=== PATIENT | male | born 1960 | race Caucasian/White ===

== ENCOUNTER → 2019-06-14 | Outpatient (CLI) | payer OTHER ==
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
== END ==
LOC: RAD 16:19
PROVIDERS: ATTEND Nurse Practitioner Primary Care
DX: S83.91XA Sprain of unspecified site of right knee, initial encounter (principal); X58.XXXA Exposure to other specified factors, initial encounter; Q76.1 Klippel-Feil syndrome
CPT/HCPCS: 72040

== ENCOUNTER 2019-08-28 17:54 | Emergency (ER) | payer OTHER ==
[2019-08-28] MEDS ORDERED: OXYCODONE HCL IR 5 MG TABLET PO ONE (19:10)
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
[2019-08-28] MEDS ORDERED: MECLIZINE HCL 25 MG TABLET PO ONE (22:54)
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
[2019-08-28] MEDS ORDERED: PROCHLORPERAZINE EDISYLATE INJ 10 MG/2 ML VIAL IM ONE (23:50)
[2019-08-29 01:42] VITALS: BP 135/69
--- NOTE | 2019-08-29 07:21 | EKG REPORT ---
SEVERITY:- BORDERLINE ECG - SINUS RHYTHM BORDERLINE T WAVE ABNORMALITIES : Confirmed by: Moe Barrientos MD 29-Aug-2019 07:20:10
== END 2019-08-29 02:50 | disposition left against medical advice (07) ==
LOC: ER 17:54
DX: R51 Headache (principal); M54.5 Low back pain; M54.2 Cervicalgia; R42 Dizziness and giddiness; V89.2XXA Person injured in unspecified motor-vehicle accident, traffic, initial encounter; Y92.414 Local residential or business street as the place of occurrence of the external cause; Z88.0 Allergy status to penicillin; Z88.2 Allergy status to sulfonamides; Z91.013 Allergy to seafood
CPT/HCPCS: 93005; 99284; 96372; 72110; 72070; 70450; 72125; 93010; J0780

== ENCOUNTER 2020-01-05 12:05 | Inpatient (IN) | payer OTHER, MEDICARE ==
[2020-01-05] MEDS ORDERED: ONDANSETRON HCL INJ/PF 4 MG/2 ML SDV IV ONE (12:24)
[2020-01-05] MEDS ORDERED: NORMAL SALINE 1000 ML 1,000 ML IV ONE ×2 (12:24→18:15)
--- NOTE | 2020-01-05 12:26 | ER Document Report ---
ED Medical Screen (RME) - General Chief Complaint: Dizziness Stated Complaint: WEAKNESS/ABDOMINAL PAIN Time Seen by Provider: 01/05/20 12:19 Primary Care Provider: KWAN ELLSWORTH FNP-C [Primary Care Provider] - Follow up as needed Notes: Patient is a 59-year-old male with a history of diabetes who presents emergency department with a chief complaint of nausea, vomiting, and diarrhea. Patient was seen by his primary care provider and was referred here to the emergency department for possible dehydration. Patient states that his blood sugars have been in the low 200s. Denies any abdominal pain. Patient is also inquiring about being tested for COVID-19. Exam: Soft, nontender abdomen. I have greeted and performed a rapid initial assessment of this patient. A comprehensive ED assessment and evaluation of the patient, analysis of test results and completion of medical decision making process will be conducted by an additional ED providers. TRAVEL OUTSIDE OF THE [place] IN LAST 30 DAYS: No - Related Data Allergies/Adverse Reactions: iodine Allergy (Verified 08/28/19 19:00) Penicillins Allergy (Verified 08/28/19 19:00) shellfish derived Allergy (Verified 08/28/19 19:00) Sulfa (Sulfonamide Antibiotics) Allergy (Verified 08/28/19 19:00) shellfish Allergy (Uncoded 08/28/19 19:00) Past Medical History - Social History Chew tobacco use (# tins/day): No Frequency of alcohol use: None Drug Abuse: None Physical Exam - Vital signs Vitals: Temp Pulse Resp BP Pulse Ox 98.4 F 95 16 146/83 H 100 01/05/20 12:12 01/05/20 12:12 01/05/20 12:12 01/05/20 12:12 01/05/20 12:12 Course - Vital Signs Vital signs: Temp Pulse Resp BP Pulse Ox 98.4 F 95 16 146/83 H 100 01/05/20 12:12 01/05/20 12:12 01/05/20 12:12 01/05/20 12:12 01/05/20 12:12 Doctor's Discharge - Discharge Referrals: KWAN ELLSWORTH FNP-C [Primary Care Provider] - Follow up as needed
[2020-01-05 13:12] LABS: ABSOLUTE BASOPHILS # (AUTO) 0.1 10^3/uL (0.0-0.2); ABSOLUTE EOSINOPHILS # (AUTO) 0.3 10^3/uL (0.0-0.6); ABSOLUTE LYMPHOCYTES (AUTO) 1.5 10^3/uL (0.5-4.7); ABSOLUTE MONOCYTES (AUTO) 0.5 10^3/uL (0.1-1.4); ABSOLUTE NEUT (AUTO) 9.3 10^3/uL (1.7-8.2); EOSINOPHILS % (AUTO) 2.6 % (0-6); HEMATOCRIT 41.1 % (37.9-51.0); HEMOGLOBIN 13.9 g/dL (13.5-17.0); LYMPHOCYTES % (AUTO) 12.6 % (13-45); MEAN CORPUSCULAR HEMOGLOBIN 29.8 pg (27.0-33.4); MEAN CORPUSCULAR HGB CONC 33.8 g/dL (32.0-36.0); MEAN CORPUSCULAR VOLUME 88 fl (80-97); MONOCYTES % (AUTO) 3.9 % (3-13); PLATELET COUNT 392 10^3/uL (150-450); RED BLOOD COUNT 4.67 10^6/uL (4.35-5.55); RED CELL DISTRIBUTION WIDTH 14.1 % (11.5-14.0); SEGMENTED NEUTROPHILS % (AUTO) 79.9 % (42-78); TOTAL CELLS COUNTED % (AUTO) 100 %; WHITE BLOOD COUNT 11.7 10^3/uL (4.0-10.5)
--- NOTE | 2020-01-05 13:58 | ER Document Report ---
ED General - General Chief Complaint: Dizziness Stated Complaint: WEAKNESS/ABDOMINAL PAIN Time Seen by Provider: 01/05/20 12:19 Primary Care Provider: KWAN ELLSWORTH FNP-C [Primary Care Provider] - Follow up as needed Notes: 59-year-old male presents to the emergency department with a complaint of nausea vomiting and diarrhea for the past 4 days. He complains of weakness and apparently called his doctor's office and was directed to come to the emergency department for evaluation and IV fluids. He has history of diabetes mellitus and complains of intermittent episodic fever. TRAVEL OUTSIDE OF THE [place] IN LAST 30 DAYS: No - Related Data Allergies/Adverse Reactions: iodine Allergy (Verified 08/28/19 19:00) Penicillins Allergy (Verified 08/28/19 19:00) shellfish derived Allergy (Verified 08/28/19 19:00) Sulfa (Sulfonamide Antibiotics) Allergy (Verified 08/28/19 19:00) shellfish Allergy (Uncoded 08/28/19 19:00) Past Medical History - Social History Smoking Status: Unknown if Ever Smoked Chew tobacco use (# tins/day): No Frequency of alcohol use: None Drug Abuse: None Family History: Reviewed & Not Pertinent Patient has homicidal ideation: No Review of Systems - Review of Systems Notes: Constitutional: + Generalized weakness HENT: Negative for sore throat. Eyes: Negative for visual changes. Cardiovascular: Negative for chest pain. Respiratory: Negative for shortness of breath. Gastrointestinal: + Nausea, vomiting, diarrhea. Genitourinary: Negative for dysuria. Musculoskeletal: Negative for back pain. Skin: Negative for rash. Neurological: Negative for headaches, weakness or numbness. 10 point ROS negative except as marked above and in HPI. Physical Exam - Vital signs Vitals: Temp Pulse Resp BP Pulse Ox 98.4 F 95 16 146/83 H 100 01/05/20 12:12 01/05/20 12:12 01/05/20 12:12 01/05/20 12:12 01/05/20 12:12 - Notes Notes: PHYSICAL EXAMINATION: Physical Exam: General: Well-nourished well-developed 59-year-old and in no acute distress HEENT: NC/AT, pupils equal round and reactive to light, MM dry,nares clear, or opharynx clear, airway patent Neck: supple, no adenopathy, no masses. Good range of motion Lungs: clear, no wheezing, no rales no rhonchi CVS: Regular rate and rhythm no murmur gallop or rub Abdomen: Soft, active, nontender, no masses, no hepatosplenomegaly Ext: No edema, clubbing or cyanosis. Neuro: Alert and responsive, moving all 4 extremities on command, cranial nerves intact, no focal findings Skin: Intact no open lesions, no rash Course - Re-evaluation Re-evalutation: 01/05/20 18:20 Patient presents with a four-day history of nausea vomiting and diarrhea, found to have acute kidney injury with a creatinine of 3.9, potassium 6.1. IV hydration, Varner catheter placement, and a discussion with the hospitalist ser vice regarding close monitoring. admit the patient to the hospital for closer evaluation and monitoring. 01/05/20 18:24 Apparently the patient has been difficult IV stick and his care for hyperkalemia and hydration have been delayed. Dr Bajwa has seen the patient and will be admitting him to the [facility]. - Vital Signs Vital signs: Temp Pulse Resp BP Pulse Ox 98.4 F 94 18 148/83 H 99 01/05/20 12:12 01/05/20 12:24 01/05/20 12:24 01/05/20 12:24 01/05/20 12:24 - Laboratory Result Diagrams: 01/05/20 12:57 01/05/20 15:30 Laboratory results interpreted by me: 01/05/20 01/05/20 12:57 15:30 WBC 11.7 H RDW 14.1 H Lymph % (Auto) 12.6 L Absolute Neuts (auto) 9.3 H Seg Neutrophils % 79.9 H Potassium 6.1 H* BUN 48 H Creatinine 3.93 H Est GFR ( Amer) 19 L Est GFR (MDRD) Non-Af 16 L Glucose 286 H AST 12 L - EKG Interpretation by Al EKG shows normal: Sinus rhythm - Rate of 88, poor R wave progression, borderline T wave abnormalities, normal axis. Critical Care Note - Critical Care Note Total time excluding time spent on procedures (mins): 60 - Critical care time spent obtaining history from patient or surrogate, discussions with consultants, development of treatment plan with patient or surrogate, evaluation of patient's response to treatment, examination of patient, ordering and performing treatments and interventions, ordering and review of laboratory studies, re-evaluation of patient's condition, ordering and review of radiographic studies and review of old charts Discharge - Discharge Clinical Impression: Nausea vomiting and diarrhea, ZURDO (acute kidney injury), Hyperkalemia Diabetes type 2, uncontrolled Qualifiers: Glycemic state: with hyperglycemia Qualified Code(s): E11.65 - Type 2 diabetes mellitus with hyperglycemia Condition: Good Disposition: ADMITTED INPATIENT Admitting Provider: Aydee (Hospitalist) Unit Admitted: [facility] Referrals: KWAN ELLSWORTH FNP-C [Primary Care Provider] - Follow up as needed
[2020-01-05 16:01] LABS: ALBUMIN 4.2 g/dL (3.5-5.0); ALKALINE PHOSPHATASE 102 U/L (38-126); ANION GAP 9 (5-19); ASPARTATE AMINO TRANSFERASE 12 U/L (17-59); BILIRUBIN,DIRECT 0.1 mg/dL (0.0-0.4); BILIRUBIN,TOTAL 0.4 mg/dL (0.2-1.3); BLOOD UREA NITROGEN 48 mg/dL (7-20); CALCIUM 9.8 mg/dL (8.4-10.2); CARBON DIOXIDE 27 mmol/L (22-30); CHLORIDE 101 mmol/L (98-107); GLUCOSE 286 mg/dL (75-110); TOTAL PROTEIN 7.6 g/dL (6.3-8.2)
[2020-01-05 16:15] LABS: POTASSIUM 6.1 mmol/L (3.6-5.0)
[2020-01-05] MEDS ORDERED: INSULIN REG, HUMAN 100 UNIT/ML 3 ML VIAL (PYX) IV ONE (16:26)
[2020-01-05] MEDS ORDERED: DEXTROSE 50%-WATER 25 GM/50 ML DISP.SYRIN IV ONE ×2 (16:26→18:34)
[2020-01-05] MEDS ORDERED: CALCIUM GLUCONATE 1000 MG/10 ML INJ IV ONE ×2 (16:26→19:30)
[2020-01-05] MEDS ORDERED: SODIUM POLYSTYRENE SULFONATE 15 GM/60 ML PO ONE ×2 (16:26→18:32)
[2020-01-05] MEDS ORDERED: ACETAMINOPHEN 325 MG TABLET PO PRN (18:26)
[2020-01-05] MEDS ORDERED: DEXTROSE 50%-WATER 25 GM/50 ML DISP.SYRIN IV PRN ×2 (18:29)
[2020-01-05] MEDS ORDERED: GLUCAGON,HUMAN RECOMB 1 MG INJ IM PRN (18:29)
[2020-01-05] MEDS ORDERED: DEXTROSE 40% GEL 15 GM TUBE PO PRN ×2 (18:29)
[2020-01-05] MEDS ORDERED: NORMAL SALINE 1000 ML 2,000 ML IV ONE (18:30)
[2020-01-05] MEDS ORDERED: INSULIN REG, HUMAN 100 UNIT/ML 3 ML VIAL (PYX) ONE (18:31)
[2020-01-05] MEDS ORDERED: SODIUM POLYSTYRENE SULFONATE 15 GM/60 ML ONE (18:34)
--- NOTE | 2020-01-05 18:40 | PDOC H&P ---
History of Present Illness Admission Date/PCP: GOLD ELENA Patient complains of: Nausea vomiting for the last 4 days. History of Present Illness: FREDDIE LAZO JR is a 59 year old male history of type 2 diabetes mellitus on insulin, osteoarthritis on pain medications came to the emergency room with complaints of nausea vomiting for the last 4 days. Vomiting clear liquids unable to keep anything down. Denies any abdominal pain denies any diarrhea. Denies any fever denies any other symptoms except for severe dizziness. Denies any drug use. Agreed to stay in the hospital for further evaluation and wants to be DNR/DNI. Past Medical History Endocrine Medical History: Reports: Diabetes Mellitus Type 2 Musculoskeltal Medical History: Reports: Arthritis Hematology: Reports: None Infectious Medical History: Reports: None Past Surgical History Past Surgical History: Reports: Other - Multiple orthopedic surgeries Social History Smoking Status: Unknown if Ever Smoked Electronic Cigarette use?: No Frequency of Alcohol Use: None Hx Recreational Drug Use: No Hx Prescription Drug Abuse: No - Advance Directive Resuscitation Status: Do Not Resuscitate Family History Family History: Reviewed & Not Pertinent Parental Family History Reviewed: Yes - Diabetes mellitus Children Family History Reviewed: Yes Sibling(s) Family History Reviewed.: Yes Medication/Allergy Home Medications: Meclizine HCl [Antivert 25 mg Tablet] 25 mg PO TID PRN #10 tablet 08/29/19 Methocarbamol [Robaxin 750 mg Tablet] 750 mg PO TID PRN #10 tablet 08/29/19 Allergies/Adverse Reactions: iodine Allergy (Verified 08/28/19 19:00) Penicillins Allergy (Verified 08/28/19 19:00) shellfish derived Allergy (Verified 08/28/19 19:00) Sulfa (Sulfonamide Antibiotics) Allergy (Verified 08/28/19 19:00) shellfish Allergy (Uncoded 08/28/19 19:00) Review of Systems Constitutional: PRESENT: fatigue, weakness. ABSENT: fever(s), headache(s) Eyes: ABSENT: visual disturbances Ears: ABSENT: hearing changes Nose, Mouth, and Throat: ABSENT: sore throat Cardiovascular: ABSENT: edema, orthropnea, palpitations Respiratory: ABSENT: dyspnea, hemoptysis Gastrointestinal: PRESENT: nausea, vomiting. ABSENT: coffee ground emesis, diarrhea, hematemesis Musculoskeletal: ABSENT: joint swelling Integumentary: ABSENT: rash, wounds Neurological: PRESENT: dizziness Psychiatric: ABSENT: anxiety, depression, homidical ideation, suicidal ideation Physical Exam Vital Signs: Temp Pulse Resp BP Pulse Ox 98.4 F 94 18 148/83 H 99 01/05/20 12:12 01/05/20 12:24 01/05/20 12:24 01/05/20 12:24 01/05/20 12:24 Intake & Output 01/04/20 01/05/20 01/06/20 06:59 06:59 06:59 Intake Total 1000 Balance 1000 Weight 71.6 kg General appearance: PRESENT: no acute distress, well-developed Head exam: PRESENT: atraumatic Eye exam: PRESENT: conjunctiva pink, PERRLA Ear exam: PRESENT: normal external ear exam Mouth exam: PRESENT: dry mucosa Respiratory exam: PRESENT: clear to auscultation yousif. ABSENT: rales, rhonchi, wheezes Cardiovascular exam: PRESENT: RRR. ABSENT: diastolic murmur, rubs, systolic murmur GI/Abdominal exam: PRESENT: normal bowel sounds, soft. ABSENT: distended, guarding, mass, organolmegaly, rebound, tenderness Rectal exam: PRESENT: deferred Extremities exam: PRESENT: full ROM. ABSENT: calf tenderness, clubbing, pedal edema Neurological exam: PRESENT: alert, awake, oriented to person, oriented to place, oriented to time, oriented to situation, CN II-XII grossly intact. ABSENT: motor sensory deficit Psychiatric exam: PRESENT: appropriate affect, normal mood. ABSENT: homicidal ideation, suicidal ideation Results Laboratory Results: 01/05/20 12:57 01/05/20 15:30 01/05/20 01/05/20 01/05/20 12:57 12:57 15:30 WBC 11.7 H RBC 4.67 Hgb 13.9 Hct 41.1 MCV 88 MCH 29.8 MCHC 33.8 RDW 14.1 H Plt Count 392 Seg Neutrophils % 79.9 H Sodium Cancelled 137.0 Potassium Cancelled 6.1 H* Chloride Cancelled 101 Carbon Dioxide Cancelled 27 Anion Gap Cancelled 9 BUN Cancelled 48 H Creatinine Cancelled 3.93 H Est GFR ( Amer) Cancelled 19 L Est GFR (Non-Af Amer) Cancelled Glucose Cancelled 286 H Calcium Cancelled 9.8 Total Bilirubin Cancelled 0.4 AST Cancelled 12 L Alkaline Phosphatase Cancelled 102 Total Protein Cancelled 7.6 Albumin Cancelled 4.2 Lipase Cancelled 26.7 Assessment and Plan - Diagnosis (1) ZURDO (acute kidney injury) Is this a current diagnosis for this admission?: Yes Plan: 01/05/2020-patient is going to be admitted to [facility] with a diagnosis of acute kidney injury and hyperkalemia as inpatient. To start him on a normal saline at 200 cc/h and to give normal saline 2 L bolus. GI prophylaxis DVT prophylaxis initiated. To recheck the potassium levels this evening. Zofran IV every 4 as needed initiated. Renal ultrasound was requested. Varner's catheter was requested. To recheck labs tomorrow. (2) Diabetes type 2, uncontrolled Qualifiers: Glycemic state: with hyperglycemia Qualified Code(s): E11.65 - Type 2 diabetes mellitus with hyperglycemia Is this a current diagnosis for this admission?: No Plan: 01/05/2020-patient has history of type 2 diabetes mellitus on insulin at home. To start him on insulin sliding scale before meals and at bedtime and to check for hemoglobin A1c. Started on diabetic diet today. Diet exercise weight loss lifestyle modifications discussed with the patient. (3) Nausea & vomiting Is this a current diagnosis for this admission?: Yes Plan: 01/05/2020 patient came with complaints of nausea and vomiting started on Zofran 4 mg IV every 6 as needed. KUB was requested. (4) Hyperkalemia Is this a current diagnosis for this admission?: Yes Plan: 01/05/2020-serum potassium 6.1 to give calcium gluconate and to give Kayexalate 30 g p.o. 1 dose, start on IV fluids boluses and maintenance fluids. To recheck the potassium level tonight.
[2020-01-05] MEDS ORDERED: SODIUM BICARBONATE 8.4% INJ 50 MEQ/50 ML DISP.SYRIN IV ONE (18:42)
--- NOTE | 2020-01-05 18:58 | RADIOLOGY REPORT (SQ) ---
EXAM DESCRIPTION: KUB/ABDOMEN (SINGLE VIEW) IMAGES COMPLETED DATE/TIME: 01/05/2020 6:45 pm REASON FOR STUDY: nausea/vomitings COMPARISON: None. NUMBER OF VIEWS: One view. TECHNIQUE: Supine radiographic image of the abdomen acquired. LIMITATIONS: None. FINDINGS: BOWEL GAS PATTERN: Normal bowel gas pattern. No dilated loops. CALCIFICATIONS: No suspicious calcifications. A hyperdensity projecting over the right hemiabdomen l ikely represents ingested material. SOFT TISSUES: No gross mass or suggestion of organomegaly. HARDWARE: None in the abdomen. BONES: No acute fracture. No worrisome bone lesions. OTHER: No other significant finding. IMPRESSION: Nonspecific, nonobstructed bowel gas pattern. TECHNICAL DOCUMENTATION: JOB ID: [id number] 2010 [employer]- All Rights Reserved Reading location - IP/workstation name: [email or web address]
--- NOTE | 2020-01-05 18:59 | RADIOLOGY REPORT (SQ) ---
EXAM DESCRIPTION: CHEST 2 VIEWS IMAGES COMPLETED DATE/TIME: 01/05/2020 6:45 pm REASON FOR STUDY: dyspnea COMPARISON: None. EXAM PARAMETERS: NUMBER OF VIEWS: two views TECHNIQUE: Digital Frontal and Lateral radiographic views of the chest acquired. RADIATION DOSE: NA LIMITATIONS: none FINDINGS: LUNGS AND PLEURA: No opacities, masses or pneumothorax. No pleural effusion. MEDIASTINUM AND HILAR STRUCTURES: No masses or contour abnormalities. HEART AND VASCULAR STRUCTURES: Heart normal size. No evidence for failure. BONES: No acute findings. HARDWARE: None in the chest. OTHER: No other significant finding. IMPRESSION: No evidence of acute cardiopulmonary abnormality. TECHNICAL DOCUMENTATION: JOB ID: [id number] 2010 [employer]- All Rights Reserved Reading location - IP/workstation name: [email or web address]
[2020-01-05] MEDS ORDERED: IPRATROPIUM/ALBUTEROL 0.5-2.5 MG/3 ML AMPUL NEB ONE (19:30)
--- NOTE | 2020-01-05 20:19 | EKG REPORT ---
SEVERITY:- ABNORMAL ECG - SINUS RHYTHM CONSIDER ANTEROSEPTAL INFARCT BORDERLINE T WAVE ABNORMALITIES : Confirmed by: Moe Barrientos MD 05-Jan-2020 20:19:12
[2020-01-05] MEDS ORDERED: SODIUM BICARBONATE 8.4% INJ 50 MEQ/50 ML DISP.SYRIN ONE (20:55)
[2020-01-05] MEDS: HYDRALAZINE HCL INJ/PF 20 MG/1 ML SDV IV PRN (21:05)
[2020-01-05] MEDS: MORPHINE SULFATE 10 MG/ML INJ IV PRN (21:06)
[2020-01-05] MEDS: ONDANSETRON HCL INJ/PF 4 MG/2 ML SDV IV PRN (21:08)
--- NOTE | 2020-01-05 22:23 | RADIOLOGY REPORT (SQ) ---
CLINICAL INDICATION: renal failure. . TECHNIQUE: Real time multiplanar ultrasonographic ascencio scale imaging was obtained of the kidneys. 29 images obtained. COMPARISON: None. CORRELATION: None. FINDINGS: The right kidney measures 11.0 x 6.1 x 5.9 centimeters. No evidence of hydronephrosis, nephrolithiasis or solid mass lesion. The renal parenchyma is of normal contour and echogenicity. The left kidney measures 9.8 x 4.7 x 5.7 centimeters. No evidence of hydronephrosis, nephrolithiasis or solid mass lesion. The renal parenchyma is of normal contour and echogenicity. Urinary bladder volume 664 mL. Ureteral jets are not seen IMPRESSION: Unremarkable renal sonogram. No evidence of hydronephrosis to suggest obstruction as the cause of the patient's renal dysfunction.
[2020-01-05] MEDS: INSULIN REG, HUMAN 100 UNIT/ML 3 ML VIAL (PYX) SUBCUT SCH (23:51)
[2020-01-06] MEDS: NORMAL SALINE 1000 ML 1,000 ML IV PRN ×5 (01:59→18:16)
[2020-01-06] MEDS: MORPHINE SULFATE 10 MG/ML INJ IV PRN ×2 (02:41→06:47)
[2020-01-06] MEDS: PANTOPRAZOLE SODIUM 20 MG TABLET.DR PO SCH (05:42)
[2020-01-06] MEDS: INSULIN REG, HUMAN 100 UNIT/ML 3 ML VIAL (PYX) SUBCUT SCH ×2 (07:46→12:01)
[2020-01-06] MEDS: HYDRALAZINE HCL INJ/PF 20 MG/1 ML SDV IV PRN (07:47)
[2020-01-06 10:01] LABS: HEMATOCRIT 37.1 % (37.9-51.0); HEMOGLOBIN 12.2 g/dL (13.5-17.0); MEAN CORPUSCULAR HEMOGLOBIN 29.1 pg (27.0-33.4); MEAN CORPUSCULAR HGB CONC 32.9 g/dL (32.0-36.0); MEAN CORPUSCULAR VOLUME 88 fl (80-97); PLATELET COUNT 348 10^3/uL (150-450); RED CELL DISTRIBUTION WIDTH 14.3 % (11.5-14.0)
[2020-01-06 10:05] LABS: ALBUMIN 3.6 g/dL (3.5-5.0); ALKALINE PHOSPHATASE 83 U/L (38-126); ANION GAP 10 (5-19); ASPARTATE AMINO TRANSFERASE 11 U/L (17-59); BILIRUBIN,DIRECT 0.1 mg/dL (0.0-0.4); BILIRUBIN,TOTAL 0.3 mg/dL (0.2-1.3); BLOOD UREA NITROGEN 40 mg/dL (7-20); CALCIUM 8.8 mg/dL (8.4-10.2); CARBON DIOXIDE 24 mmol/L (22-30); CHLORIDE 107 mmol/L (98-107); CHOLESTEROL 221.27 mg/dL (0-200); GLUCOSE 237 mg/dL (75-110); POTASSIUM 4.1 mmol/L (3.6-5.0); TOTAL PROTEIN 6.4 g/dL (6.3-8.2)
[2020-01-06 10:06] LABS: TRIGLYCERIDES 198 mg/dL (<150)
[2020-01-06 10:15] LABS: DIRECT LDL 149 mg/dL (<100)
[2020-01-06 10:16] LABS: NT PRO BNP 2920 pg/mL (<125); TROPONIN I < 0.012 ng/mL
[2020-01-06 10:17] LABS: VLDL CHOLESTEROL 39.6 mg/dL (10-31)
[2020-01-06] MEDS: ENOXAPARIN SODIUM INJ 30 MG/0.3 ML DISP.SYRIN SUBCUT SCH (10:56)
[2020-01-06] MEDS: OXYCODONE HCL IR 5 MG TABLET PO PRN ×2 (12:01→18:14)
[2020-01-06] MEDS: GABAPENTIN 400 MG CAPSULE PO SCH ×2 (13:05→22:03)
[2020-01-06] MEDS ORDERED: DEXTROSE 50%-WATER 25 GM/50 ML DISP.SYRIN IV PRN ×2 (14:32)
[2020-01-06] MEDS ORDERED: GLUCAGON,HUMAN RECOMB 1 MG INJ IM PRN (14:32)
[2020-01-06] MEDS ORDERED: DEXTROSE 40% GEL 15 GM TUBE PO PRN ×2 (14:32)
--- NOTE | 2020-01-06 14:42 | PDOC PROGRESS REPORT ---
Subjective Progress Note for:: 01/06/20 Subjective:: FREDDIE LAZO JR is a 59 year old male history of type 2 diabetes mellitus on insulin, osteoarthritis on pain medications came to the emergency room with complaints of nausea vomiting for the last 4 days. Vomiting clear liquids unable to keep anything down. Denies any abdominal pain denies any diarrhea. Denies any fever denies any other symptoms except for severe dizziness. Denies any drug use. Agreed to stay in the hospital for further evaluation and wants t o be DNR/DNI. 01/06/2020. No acute events overnight, patient complaining of chronic low back and bilateral knee pain and requiring his narcotics, refusing to have a Varner catheter placed, vomiting has resolved, denies any fever, chills, nausea, vomiting, diarrhea, constipation or any urinary symptoms. Reason For Visit: ZURDO Physical Exam Vital Signs: Temp Pulse Resp BP Pulse Ox 99.0 F 98 17 176/90 H 100 01/06/20 07:20 01/06/20 14:00 01/06/20 07:20 01/06/20 07:20 01/06/20 07:20 Intake & Output 01/05/20 01/06/20 01/07/20 06:59 06:59 06:59 Intake Total 2960 3740 Output Total 900 Balance 2960 2840 Weight 85.6 kg 85.6 kg General appearance: PRESENT: obese Head exam: PRESENT: atraumatic, normocephalic Respiratory exam: PRESENT: clear to auscultation yousif. ABSENT: rales, rhonchi, wheezes Cardiovascular exam: PRESENT: RRR. ABSENT: diastolic murmur, rubs, systolic murmur Pulses: PRESENT: normal dorsalis pedis pul GI/Abdominal exam: PRESENT: normal bowel sounds, soft. ABSENT: distended, guarding, mass, organolmegaly, rebound, tenderness Neurological exam: PRESENT: alert, awake, oriented to person, oriented to place, oriented to time, oriented to situation, CN II-XII grossly intact. ABSENT: motor sensory deficit Results Laboratory Results: 01/06/20 09:06 01/06/20 09:06 01/05/20 01/05/20 01/06/20 15:30 21:30 08:00 WBC RBC Hgb Hct MCV MCH MCHC RDW Plt Count Sodium 137.0 Potassium 6.1 H* 4.5 D Chloride 101 Carbon Dioxide 27 Anion Gap 9 BUN 48 H Creatinine 3.93 H Est GFR ( Amer) 19 L Est GFR (Non-Af Amer) Glucose 286 H Calcium 9.8 Magnesium Total Bilirubin 0.4 AST 12 L Alkaline Phosphatase 102 Total Protein 7.6 Albumin 4.2 Triglycerides Cholesterol LDL Cholesterol Direct VLDL Cholesterol HDL Cholesterol Lipase 26.7 TSH 01/06/20 01/06/20 01/06/20 08:00 08:00 09:06 WBC RBC Hgb Hct MCV MCH MCHC RDW Plt Count Sodium Cancelled Potassium Cancelled Chloride Cancelled Carbon Dioxide Cancelled Anion Gap Cancelled BUN Cancelled Creatinine Cancelled Est GFR ( Amer) Cancelled Est GFR (Non-Af Amer) Cancelled Glucose Cancelled Calcium Cancelled Magnesium Cancelled Total Bilirubin Cancelled AST Cancelled Alkaline Phosphatase Cancelled Total Protein Cancelled Albumin Cancelled Triglycerides Cancelled Cholesterol Cancelled LDL Cholesterol Direct Cancelled VLDL Cholesterol Cancelled HDL Cholesterol Cancelled Lipase TSH Cancelled 1.19 01/06/20 01/06/20 09:06 09:06 WBC 13.0 H RBC 4.20 L Hgb 12.2 L Hct 37.1 L MCV 88 MCH 29.1 MCHC 32.9 RDW 14.3 H Plt Count 348 Sodium 140.5 Potassium 4.1 Chloride 107 Carbon Dioxide 24 Anion Gap 10 BUN 40 H Creatinine 3.32 H Est GFR ( Amer) 23 L Est GFR (Non-Af Amer) Glucose 237 H Calcium 8.8 Magnesium 1.7 Total Bilirubin 0.3 AST 11 L Alkaline Phosphatase 83 Total Protein 6.4 Albumin 3.6 Triglycerides 198 H Cholesterol 221.27 H LDL Cholesterol Direct 149 H VLDL Cholesterol 39.6 H HDL Cholesterol 38 L Lipase TSH 01/05/20 01/05/20 01/06/20 19:28 19:28 01:22 Creatine Kinase 39 L Troponin I < 0.012 < 0.012 NT-Pro-B Natriuret Pep 01/06/20 01/06/20 08:00 09:06 Creatine Kinase Troponin I Cancelled < 0.012 NT-Pro-B Natriuret Pep Cancelled 2920 H Impressions: Chest X-Ray 01/05/20 00:00 IMPRESSION: No evidence of acute cardiopulmonary abnormality. KUB X-Ray 01/05/20 00:00 IMPRESSION: Nonspecific, nonobstructed bowel gas pattern. Renal Ultrasound 01/05/20 00:00 IMPRESSION: Unremarkable renal sonogram. No evidence of hydronephrosis to suggest obstruction as the cause of the patient's renal dysfunction. Assessment and Plan - Diagnosis (1) Hypertensive emergency Is this a current diagnosis for this admission?: Yes Plan: Presented with ZURDO, elevated proBNP, SBP in 200s. History of uncontrolled and untreated hypertension. We will start on Coreg twice daily and adjust meds as needed. Not a candidate for DUSTY, ARB or diuretics at this point due to ZURDO. Will reevaluate once kidney function improves. Continue beta-cecilia schedule. PRN hydralazine. Adjust meds as needed. (2) ZURDO (acute kidney injury) Is this a current diagnosis for this admission?: Yes Plan: Multifactorial. Likely due to hypertensive emergency coupled with uncontrolled diabetes and chronic NSAID use for osteoarthritis. Renal ultrasound negative for any hydronephrosis or nephrolithiasis. Denies any history of BPH. Cautious volume restriction guided by volume status. Monitor volume status and electrolytes replace as needed. Daily electrolytes. If no improvement will consult nephrology. We will obtain urine sodium, urine protein, urine creatinine. (3) Acute CHF Qualifiers: Heart failure type: unspecified Qualified Code(s): I50.9 - Heart failure, unspecified Is this a current diagnosis for this admission?: Yes Plan: Denies any history of CAD. Denies any anginal symptoms. proBNP 2920. No echo available. Cardiac diet, strict in and out, beta-blockers, not a candidate for DUSTY/ARB or diuretics due to worsening renal function. Will start on DUSTY/ARB or diuretics once kidney function stabilizes. Will obtain 2D echo. (4) Osteoarthritis Is this a current diagnosis for this admission?: Yes Plan: History of chronic multiple joint osteoarthritis. Opioid dependent. Resume opiates DC NSAIDs. Monitor for fall respiratory depression and seizure. (5) Diabetes type 2, uncontrolled Qualifiers: Glycemic state: with hyperglycemia Qualified Code(s): E11.65 - Type 2 diabetes mellitus with hyperglycemia Is this a current diagnosis for this admission?: No Plan: Uncontrolled. Hemoglobin A1c 13%. Diabetic diet, basal, prandial and correctional insulin. Hypoglycemia protocol. Adjust insulin dosage as needed. Accu-Cheks. Diabetic education. (6) Hyperkalemia Is this a current diagnosis for this admission?: Yes Plan: Resolved. (7) Nausea & vomiting Is this a current diagnosis for this admission?: Yes Plan: Resolved. (8) Hyperlipidemia Is this a current diagnosis for this admission?: Yes Plan: ASCVD score of 40%. PSA WNL. Diet and lifestyle modification recommended. We will start on high intensity statin. Monitor LFTs. Outpatient PCP follow-up.
[2020-01-06] MEDS ORDERED: CARVEDILOL 12.5 MG TABLET PO SCH (15:00)
[2020-01-06] MEDS ORDERED: CEFTRIAXONE 1 GM/D5W RTU 1 GM/50 ML RTUPB IV SCH (16:00)
[2020-01-06] MEDS: LEVOFLOXACIN 750 MG TABLET PO SCH (16:40)
[2020-01-06] MEDS: INSULIN LISPRO 100 UNIT/ML 3 ML VIAL SUBCUT SCH ×2 (16:41→21:58)
[2020-01-06] MEDS: INSULIN GLARGINE,HUM.REC.ANLOG 1,000 UNIT/10 ML VIAL SUBCUT SCH (16:41)
[2020-01-06 17:35] LABS: AMORPHOUS SEDIMENT,URINE TRACE /HPF; APPEARANCE,URINE CLEAR; BILIRUBIN,URINE NEGATIVE (NEGATIVE); COLOR,URINE YELLOW; GLUCOSE, URINE >=500 mg/dL (NEGATIVE); KETONES,URINE NEGATIVE (NEGATIVE); LEUKOCYTE ESTERASE,URINE SMALL (NEGATIVE); NITRITE,URINE NEGATIVE (NEGATIVE); PROTEIN,URINE 30 mg/dL (NEGATIVE); UROBILINOGEN,URINE NEGATIVE mg/dL (<2.0)
[2020-01-06 17:54] LABS: URINE CREATININE 51.8 mg/dL (22-328)
[2020-01-06 18:40] LABS: URINE AMPHETAMINES SCREEN NEGATIVE; URINE BARBITURATES SCREEN NEGATIVE; URINE BENZODIAZEPINES SCREEN NEGATIVE; URINE COCAINE SCREEN NEGATIVE; URINE MARIJUANA (THC) SCREEN NEGATIVE; URINE METHADONE SCREEN NEGATIVE; URINE PHENCYCLIDINE SCREEN NEGATIVE
[2020-01-06] MEDS: ATORVASTATIN CALCIUM 40 MG TABLET PO SCH (22:03)
[2020-01-07] MEDS: OXYCODONE HCL IR 5 MG TABLET PO PRN ×5 (00:20→23:54)
[2020-01-07] MEDS: HYDRALAZINE HCL INJ/PF 20 MG/1 ML SDV IV PRN (03:41)
[2020-01-07] MEDS: NORMAL SALINE 1000 ML 1,000 ML IV PRN ×3 (04:23→23:55)
[2020-01-07] MEDS: GABAPENTIN 400 MG CAPSULE PO SCH ×3 (05:33→21:58)
[2020-01-07] MEDS: PANTOPRAZOLE SODIUM 20 MG TABLET.DR PO SCH (05:33)
[2020-01-07 05:43] LABS: ABSOLUTE BASOPHILS # (AUTO) 0.1 10^3/uL (0.0-0.2); ABSOLUTE EOSINOPHILS # (AUTO) 0.8 10^3/uL (0.0-0.6); ABSOLUTE LYMPHOCYTES (AUTO) 2.1 10^3/uL (0.5-4.7); ABSOLUTE MONOCYTES (AUTO) 0.9 10^3/uL (0.1-1.4); ABSOLUTE NEUT (AUTO) 8.7 10^3/uL (1.7-8.2); BASOPHILS % (AUTO) 0.8 % (0-2); EOSINOPHILS % (AUTO) 6.4 % (0-6); HEMATOCRIT 34.7 % (37.9-51.0); LYMPHOCYTES % (AUTO) 16.8 % (13-45); MEAN CORPUSCULAR HEMOGLOBIN 29.5 pg (27.0-33.4); MEAN CORPUSCULAR HGB CONC 33.2 g/dL (32.0-36.0); MEAN CORPUSCULAR VOLUME 89 fl (80-97); MONOCYTES % (AUTO) 6.8 % (3-13); PLATELET COUNT 299 10^3/uL (150-450); RED BLOOD COUNT 3.91 10^6/uL (4.35-5.55); RED CELL DISTRIBUTION WIDTH 14.1 % (11.5-14.0); SEGMENTED NEUTROPHILS % (AUTO) 69.2 % (42-78); TOTAL CELLS COUNTED % (AUTO) 100 %; WHITE BLOOD COUNT 12.6 10^3/uL (4.0-10.5)
[2020-01-07 05:46] LABS: HEMOGLOBIN 11.5 g/dL (13.5-17.0)
[2020-01-07 06:09] LABS: ALKALINE PHOSPHATASE 66 U/L (38-126); ANION GAP 7 (5-19); ASPARTATE AMINO TRANSFERASE 12 U/L (17-59); BILIRUBIN,DIRECT 0.1 mg/dL (0.0-0.4); BILIRUBIN,TOTAL 0.4 mg/dL (0.2-1.3); BLOOD UREA NITROGEN 40 mg/dL (7-20); CALCIUM 8.9 mg/dL (8.4-10.2); CARBON DIOXIDE 23 mmol/L (22-30); CHLORIDE 110 mmol/L (98-107); GLUCOSE 116 mg/dL (75-110); POTASSIUM 4.2 mmol/L (3.6-5.0); TOTAL PROTEIN 5.8 g/dL (6.3-8.2)
[2020-01-07] MEDS: INSULIN LISPRO 100 UNIT/ML 3 ML VIAL SUBCUT SCH ×4 (10:23→22:45)
[2020-01-07] MEDS: INSULIN GLARGINE,HUM.REC.ANLOG 1,000 UNIT/10 ML VIAL SUBCUT SCH (10:41)
[2020-01-07] MEDS: ENOXAPARIN SODIUM INJ 30 MG/0.3 ML DISP.SYRIN SUBCUT SCH (10:41)
[2020-01-07] MEDS: CARVEDILOL 12.5 MG TABLET PO SCH (10:41)
[2020-01-07] MEDS: MECLIZINE HCL 12.5 MG TABLET PO PRN ×2 (12:14→19:57)
[2020-01-07] MEDS: ONDANSETRON HCL INJ/PF 4 MG/2 ML SDV IV PRN ×2 (12:16→19:58)
--- NOTE | 2020-01-07 12:52 | PDOC PROGRESS REPORT ---
Subjective Progress Note for:: 01/07/20 Subjective:: FREDDIE LAZO JR is a 59 year old male history of type 2 diabetes mellitus on insulin, osteoarthritis on pain medications came to the emergency room with complaints of nausea vomiting for the last 4 days. Vomiting clear liquids unable to keep anything down. Denies any abdominal pain denies any diarrhea. Denies any fever denies any other symptoms except for severe dizziness. Denies any drug use. Agreed to stay in the hospital for further evaluation and wants t o be DNR/DNI. 01/06/2020. No acute events overnight, patient complaining of chronic low back and bilateral knee pain and requiring his narcotics, refusing to have a Varner catheter placed, vomiting has resolved, denies any fever, chills, nausea, vomiting, diarrhea, constipation or any urinary symptoms. 01/07/2020. Patient complaining of nausea and vertigo, denies any chest pain, shortness of breath, diarrhea, constipation or any urinary symptoms. Reason For Visit: ZURDO Physical Exam Vital Signs: Temp Pulse Resp BP Pulse Ox 97.7 F 84 7 L 164/83 H 100 01/07/20 11:08 01/07/20 11:08 01/07/20 11:08 01/07/20 11:08 01/07/20 11:08 Intake & Output 01/06/20 01/07/20 01/08/20 06:59 06:59 06:59 Intake Total 2960 5317 Output Total 1800 720 Balance 2960 3517 -720 Weight 85.6 kg 82.4 kg General appearance: PRESENT: no acute distress, obese Respiratory exam: PRESENT: clear to auscultation yousif. ABSENT: rales, rhonchi, wheezes Cardiovascular exam: PRESENT: RRR. ABSENT: diastolic murmur, rubs, systolic murmur GI/Abdominal exam: PRESENT: normal bowel sounds, soft. ABSENT: distended, guarding, mass, organolmegaly, rebound, tenderness Neurological exam: PRESENT: alert, awake, oriented to person, oriented to place, oriented to time, oriented to situation, CN II-XII grossly intact. ABSENT: motor sensory deficit Results Laboratory Results: 01/07/20 05:00 01/07/20 05:00 01/06/20 01/07/20 01/07/20 17:05 05:00 05:00 WBC 12.6 H RBC 3.91 L Hgb 11.5 L Hct 34.7 L MCV 89 MCH 29.5 MCHC 33.2 RDW 14.1 H Plt Count 299 Seg Neutrophils % 69.2 Sodium 140.3 Potassium 4.2 Chloride 110 H Carbon Dioxide 23 Anion Gap 7 BUN 40 H Creatinine 3.22 H Est GFR ( Amer) 24 L Glucose 116 H Calcium 8.9 Magnesium 1.6 Total Bilirubin 0.4 AST 12 L Alkaline Phosphatase 66 Total Protein 5.8 L Albumin 3.0 L Urine Color YELLOW Urine Appearance CLEAR Urine pH 5.0 Ur Specific [place] 1.010 Urine Protein 30 H Urine Glucose (UA) >=500 H Urine Ketones NEGATIVE Urine Blood NEGATIVE Urine Nitrite NEGATIVE Ur Leukocyte Esterase SMALL H Urine WBC (Auto) 19 Urine RBC (Auto) 1 01/05/20 01/05/20 01/06/20 19:28 19:28 01:22 Creatine Kinase 39 L Troponin I < 0.012 < 0.012 NT-Pro-B Natriuret Pep 01/06/20 01/06/20 08:00 09:06 Creatine Kinase Troponin I Cancelled < 0.012 NT-Pro-B Natriuret Pep Cancelled 2920 H Impressions: Chest X-Ray 01/05/20 00:00 IMPRESSION: No evidence of acute cardiopulmonary abnormality. KUB X-Ray 01/05/20 00:00 IMPRESSION: Nonspecific, nonobstructed bowel gas pattern. Renal Ultrasound 01/05/20 00:00 IMPRESSION: Unremarkable renal sonogram. No evidence of hydronephrosis to suggest obstruction as the cause of the patient's renal dysfunction. Assessment and Plan - Diagnosis (1) Hypertensive emergency Is this a current diagnosis for this admission?: Yes Plan: Improving. Not optimized. Presented with ZURDO, elevated proBNP, SBP in 200s. History of uncontrolled and untreated hypertension. Continue Coreg 25 mg p.o. twice daily PRN IV hydralazine. Not a candidate for DUSTY, ARB or diuretics at this point due to ZURDO. Will reevaluate once kidney function improves. Adjust meds as needed. (2) ZURDO (acute kidney injury) Is this a current diagnosis for this admission?: Yes Plan: Multifactorial. Nonoliguric. Likely due to hypertensive emergency coupled with uncontrolled diabetes and chronic NSAID use for osteoarthritis. Patient has significant proteinuria most likely due to chronic untreated diabetes and hypertension. Renal ultrasound negative for any hydronephrosis or nephrolithiasis. Denies any history of BPH. Cautious volume restriction guided by volume status. Monitor volume status and electrolytes replace as needed. Daily electrolytes. Nephrology consulted. (3) Acute CHF Qualifiers: Heart failure type: unspecified Qualified Code(s): I50.9 - Heart failure, unspecified Is this a current diagnosis for this admission?: Yes Plan: Denies any history of CAD. Denies any anginal symptoms. proBNP 2920. No Echo available. Cardiac diet, strict in and out, beta-blockers, not a candidate for DUSTY/ARB or diuretics due to worsening renal function. Will start on DUSTY/ARB or diuretics once kidney function stabilizes. Will obtain 2D echo. (4) Osteoarthritis Is this a current diagnosis for this admission?: Yes Plan: History of chronic multiple joint osteoarthritis. Opioid dependent. Resume opiates DC NSAIDs. Monitor for fall respiratory depression and seizure. (5) Diabetes type 2, uncontrolled Qualifiers: Glycemic state: with hyperglycemia Qualified Code(s): E11.65 - Type 2 diabetes mellitus with hyperglycemia Is this a current diagnosis for this admission?: No Plan: Uncontrolled. Hemoglobin A1c 13%. Diabetic diet, basal, prandial and correctional insulin. Hypoglycemia protocol. Adjust insulin dosage as needed. Accu-Cheks. Diabetic education. (6) Hyperkalemia Is this a current diagnosis for this admission?: Yes Plan: Resolved. (7) Nausea & vomiting Is this a current diagnosis for this admission?: Yes Plan: Still complaining of nausea. No vomiting. Continue antiemetics. (8) Hyperlipidemia Is this a current diagnosis for this admission?: Yes Plan: ASCVD score of 40%. PSA WNL. Diet and lifestyle modification recommended. We will start on high intensity statin. Monitor LFTs. Outpatient PCP follow-up.
[2020-01-07] MEDS: ATORVASTATIN CALCIUM 40 MG TABLET PO SCH (21:58)
[2020-01-08 05:22] LABS: HEMATOCRIT 32.1 % (37.9-51.0); HEMOGLOBIN 10.7 g/dL (13.5-17.0); MEAN CORPUSCULAR HEMOGLOBIN 29.3 pg (27.0-33.4); MEAN CORPUSCULAR HGB CONC 33.2 g/dL (32.0-36.0); MEAN CORPUSCULAR VOLUME 88 fl (80-97); PLATELET COUNT 289 10^3/uL (150-450); RED BLOOD COUNT 3.64 10^6/uL (4.35-5.55); RED CELL DISTRIBUTION WIDTH 14.6 % (11.5-14.0); WHITE BLOOD COUNT 11.4 10^3/uL (4.0-10.5)
[2020-01-08] MEDS: GABAPENTIN 400 MG CAPSULE PO SCH ×2 (05:29→13:18)
[2020-01-08] MEDS: OXYCODONE HCL IR 5 MG TABLET PO PRN ×4 (05:30→23:28)
[2020-01-08] MEDS: PANTOPRAZOLE SODIUM 20 MG TABLET.DR PO SCH (05:30)
[2020-01-08] MEDS: MECLIZINE HCL 12.5 MG TABLET PO PRN (05:30)
[2020-01-08 05:42] LABS: ANION GAP 7 (5-19); BLOOD UREA NITROGEN 40 mg/dL (7-20); CALCIUM 8.8 mg/dL (8.4-10.2); CARBON DIOXIDE 22 mmol/L (22-30); CHLORIDE 111 mmol/L (98-107); GLUCOSE 155 mg/dL (75-110); PHOSPHORUS 4.3 mg/dL (2.5-4.5); POTASSIUM 4.1 mmol/L (3.6-5.0)
[2020-01-08] MEDS: INSULIN LISPRO 100 UNIT/ML 3 ML VIAL SUBCUT SCH ×4 (08:00→21:11)
--- NOTE | 2020-01-08 09:19 | CDI QUERY ---
CDI Query CDI Review: Dear Provider, Please clarify / specify type CHF noted in progress notes if possible. One progress note states ECHO available, another states unavailable. ACUTE SYSTOLIC CHF ACUTE DIASTOLIC CHF ACUTE SYSTOLIC and DIASTOLIC combined CHF UNABLE TO DETERMINE Thanks, Sophia Falcon [phone]
[2020-01-08] MEDS ORDERED: INSULIN GLARGINE,HUM.REC.ANLOG 1,000 UNIT/10 ML VIAL SUBCUT SCH (10:00)
[2020-01-08] MEDS: LEVOFLOXACIN 750 MG TABLET PO SCH (10:53)
[2020-01-08] MEDS: CARVEDILOL 12.5 MG TABLET PO SCH (10:53)
[2020-01-08] MEDS: ENOXAPARIN SODIUM INJ 30 MG/0.3 ML DISP.SYRIN SUBCUT SCH (10:54)
[2020-01-08] MEDS: AMLODIPINE BESYLATE 5 MG TABLET PO SCH (11:30)
[2020-01-08] MEDS: MECLIZINE HCL 12.5 MG TABLET PO SCH ×3 (11:57→23:32)
--- NOTE | 2020-01-08 12:23 | PDOC CONSULTATION ---
Consultation Consult Date: 01/08/20 Provider Consulted: Justina FELIZ Consult reason:: ZURDO on CKD History of Present Illness Admission Date/PCP: 01/05/20 18:32 GOLD ELENA History of Present Illness: FREDDIE LAZO JR is a 59 year old malewith apparent history of longstanding denisse betes mellitus, hypertension, chronic arthritis dependent on narcotics was admitted with history of nausea vomiting. He is on meloxicam as needed besides narcotics. Incidental evaluations in the ER also revealed that the patient had kidney disease with a creatinine of 3.9 along with proteinuria. He was admitted for further evaluations. He has been ruled out for an obstructive uropathy. 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 He does not recall being told that he was having kidney disease. He however admits to the fact that his insurance does not cover for Lantus and his blood sugars have been uncontrolled as his verified by his most recent A1c in the hospital at 13+. He admits to neuropathy but denies any history of retinopathy or gastroparesis. Currently patient is feeling a whole lot better. Labs and medications were reviewed that shows improving creatinine to current guidelines. Past Medical History Cardiac Medical History: Reports: Hypertension-primary Endocrine Medical History: Reports: Diabetes Mellitus Type 2 Musculoskeltal Medical History: Reports: Arthritis Psychiatric Medical History: Reports: Depression Infectious Medical History: Reports: None Past Surgical History Past Surgical History: Reports: Other - Multiple orthopedic surgeries Social History Smoking Status: Never Smoker Electronic Cigarette use?: No Frequency of Alcohol Use: None Hx Recreational Drug Use: No Hx Prescription Drug Abuse: No - Advance Directive Resuscitation Status: Do Not Resuscitate Family History Parental Family History Reviewed: No Children Family History Reviewed: No Sibling(s) Family History Reviewed.: No Medication/Allergy Home Medications: Cyclobenzaprine HCl [Flexeril 10 mg Tablet] 10 mg PO TIDP PRN 01/06/20 Gabapentin [Neurontin] 800 mg PO Q8 01/06/20 Meloxicam [Mobic 7.5 mg Tablet] 7.5 mg PO Q12HP PRN 01/06/20 Oxycodone HCl [Oxy-Ir 5 mg Tablet] 15 mg PO QID 01/06/20 Allergies/Adverse Reactions: iodine Allergy (Verified 08/28/19 19:00) Penicillins Allergy (Verified 08/28/19 19:00) shellfish derived Allergy (Verified 08/28/19 19:00) Sulfa (Sulfonamide Antibiotics) Allergy (Verified 08/28/19 19:00) shellfish Allergy (Uncoded 08/28/19 19:00) Review of Systems Constitutional: ABSENT: fatigue, fever(s), headache(s), night sweats, weakness Nose, Mouth, and Throat: ABSENT: mouth pain, sore throat Cardiovascular: ABSENT: chest pain, dyspnea on exertion, edema, orthropnea, palp itations Respiratory: ABSENT: dyspnea, hemoptysis Gastrointestinal: PRESENT: nausea, vomiting. ABSENT: abdominal pain, coffee ground emesis, constipation, diarrhea, dysphagia, heartburn, hematemesis, hematochezia Genitourinary: ABSENT: dysuria, hematuria Musculoskeletal: PRESENT: back pain. ABSENT: deformity, joint swelling Neurological: ABSENT: abnormal movements, abnormal speech, confusion, convulsions, frequent falls Psychiatric: ABSENT: depression Hematologic/Lymphatic: ABSENT: easy bruising, lymphadenopathy Physical Exam Vital Signs: Temp Pulse Resp BP Pulse Ox 98.6 F 86 8 L 169/80 H 97 01/08/20 07:34 01/08/20 07:34 01/08/20 07:34 01/08/20 07:34 01/08/20 07:34 Intake & Output 01/07/20 01/08/20 01/09/20 06:59 06:59 06:59 Intake Total 5317 2479 1000 Output Total 1800 2495 Balance 3517 -16 1000 Weight 82.4 kg 83.7 kg General appearance: PRESENT: no acute distress Eye exam: PRESENT: EOMI, PERRLA. ABSENT: scleral icterus Ear exam: PRESENT: normal external ear exam Mouth exam: PRESENT: moist, neck supple Neck exam: ABSENT: lymphadenopathy, meningismus, tenderness, thyromegaly, tracheal deviation Respiratory exam: PRESENT: clear to auscultation yousif. ABSENT: crackles Cardiovascular exam: PRESENT: +S1, +S2 GI/Abdominal exam: PRESENT: normal bowel sounds, soft. ABSENT: organomegaly, tenderness Extremities exam: ABSENT: pedal edema Musculoskeletal exam: PRESENT: deformity - His feet shows evidences of Charcots feet especially of his right leg. Neurological exam: PRESENT: alert, awake, oriented to person, oriented to place Psychiatric exam: PRESENT: appropriate affect Skin exam: ABSENT: cyanosis, erythema, mottled, rash Results Laboratory Results: 01/08/20 04:59 01/08/20 04:59 01/08/20 01/08/20 04:59 04:59 WBC 11.4 H RBC 3.64 L Hgb 10.7 L Hct 32.1 L MCV 88 MCH 29.3 MCHC 33.2 RDW 14.6 H Plt Count 289 Sodium 139.8 Potassium 4.1 Chloride 111 H Carbon Dioxide 22 Anion Gap 7 BUN 40 H Creatinine 3.20 H Est GFR ( Amer) 24 L Glucose 155 H Calcium 8.8 Phosphorus 4.3 Magnesium 1.6 01/05/20 01/05/20 01/06/20 19:28 19:28 01:22 Creatine Kinase 39 L Troponin I < 0.012 < 0.012 NT-Pro-B Natriuret Pep 01/06/20 01/06/20 08:00 09:06 Creatine Kinase Troponin I Cancelled < 0.012 NT-Pro-B Natriuret Pep Cancelled 2920 H Impressions: Chest X-Ray 01/05/20 00:00 IMPRESSION: No evidence of acute cardiopulmonary abnormality. KUB X-Ray 01/05/20 00:00 IMPRESSION: Nonspecific, nonobstructed bowel gas pattern. Renal Ultrasound 01/05/20 00:00 IMPRESSION: Unremarkable renal sonogram. No evidence of hydronephrosis to suggest obstruction as the cause of the patient's renal dysfunction. Assessment & Plan - Diagnosis (1) ZURDO (acute kidney injury) Plan: I am unsure of the patient is giving all information as I am not sure if this is acute versus chronic kidney disease. Get further labs. No obvious evidences to indicate any obstructive uropathy. He could very well have kidney related CKD as also by the fact that is proteinuric. He has also got evidences of complications of diabetes including neuropathy and Charcot's joints. See how far his creatinine will improve on current guidelines. He will obviously have to follow with nephrology as an outpatient wherever he settles down as he is still not sure where he is going to be settling between [place] or [place]. (2) Diabetes type 2, uncontrolled Qualifiers: Glycemic state: with hyperglycemia Qualified Code(s): E11.65 - Type 2 diabetes mellitus with hyperglycemia Is this a current diagnosis for this admission?: No Plan: Advised him on the need of tight blood sugar control and less usage of narcotics during the fact that he may have underlying CKD. (3) Hyperkalemia Is this a current diagnosis for this admission?: Yes Plan: Resolved with conservative measures. (4) Nausea & vomiting Is this a current diagnosis for this admission?: Yes Plan: Presently resolved. Could be in the face of narcotic use agents in the face of ZURDO. Monitor. No obvious evidences to indicate gastroparesis. (5) Osteoarthritis Is this a current diagnosis for this admission?: Yes Plan: Patient on as needed meloxicam and chronic narcotic usage. (6) Hypertension Plan: Advised the need for compliance and tight control. (7) Proteinuria Plan: Monitor. Likely from diabetes mellitus complications.
--- NOTE | 2020-01-08 13:52 | PDOC PROGRESS REPORT ---
Subjective Progress Note for:: 01/08/20 Subjective:: FREDDIE LAZO JR is a 59 year old male history of type 2 diabetes mellitus on insulin, osteoarthritis on pain medications came to the emergency room with complaints of nausea vomiting for the last 4 days. Vomiting clear liquids unable to keep anything down. Denies any abdominal pain denies any diarrhea. Denies any fever denies any other symptoms except for severe dizziness. Denies any drug use. Agreed to stay in the hospital for further evaluation and wants t o be DNR/DNI. 01/06/2020. No acute events overnight, patient complaining of chronic low back and bilateral knee pain and requiring his narcotics, refusing to have a Varner catheter placed, vomiting has resolved, denies any fever, chills, nausea, vomiting, diarrhea, constipation or any urinary symptoms. 01/08/2020. No acute events overnight. Vertigo and nausea has improved significantly since being started on meclizine, patient is nonoliguric and rating his p.o. intake. Denies any fever, chills, nausea, vomiting, diarrhea, constipation or any urinary symptoms. Reason For Visit: ZURDO Physical Exam Vital Signs: Temp Pulse Resp BP Pulse Ox 98.6 F 86 8 L 169/80 H 97 01/08/20 07:34 01/08/20 07:34 01/08/20 07:34 01/08/20 07:34 01/08/20 07:34 Intake & Output 01/07/20 01/08/20 01/09/20 06:59 06:59 06:59 Intake Total 5317 2479 1000 Output Total 1800 2495 Balance 3517 -16 1000 Weight 82.4 kg 83.7 kg Results Laboratory Results: 01/08/20 04:59 01/08/20 04:59 01/08/20 01/08/20 04:59 04:59 WBC 11.4 H RBC 3.64 L Hgb 10.7 L Hct 32.1 L MCV 88 MCH 29.3 MCHC 33.2 RDW 14.6 H Plt Count 289 Sodium 139.8 Potassium 4.1 Chloride 111 H Carbon Dioxide 22 Anion Gap 7 BUN 40 H Creatinine 3.20 H Est GFR ( Amer) 24 L Glucose 155 H Calcium 8.8 Phosphorus 4.3 Magnesium 1.6 01/05/20 01/05/20 01/06/20 19:28 19:28 01:22 Creatine Kinase 39 L Troponin I < 0.012 < 0.012 NT-Pro-B Natriuret Pep 01/06/20 01/06/20 08:00 09:06 Creatine Kinase Troponin I Cancelled < 0.012 NT-Pro-B Natriuret Pep Cancelled 2920 H Impressions: Chest X-Ray 01/05/20 00:00 IMPRESSION: No evidence of acute cardiopulmonary abnormality. KUB X-Ray 01/05/20 00:00 IMPRESSION: Nonspecific, nonobstructed bowel gas pattern. Renal Ultrasound 01/05/20 00:00 IMPRESSION: Unremarkable renal sonogram. No evidence of hydronephrosis to suggest obstruction as the cause of the patient's renal dysfunction. Assessment and Plan - Diagnosis (1) Hypertensive emergency Is this a current diagnosis for this admission?: Yes (2) ZURDO (acute kidney injury) Is this a current diagnosis for this admission?: Yes (3) Acute CHF Qualifiers: Heart failure type: unspecified Qualified Code(s): I50.9 - Heart failure, unspecified Is this a current diagnosis for this admission?: Yes (4) Osteoarthritis Is this a current diagnosis for this admission?: Yes (5) Diabetes type 2, uncontrolled Qualifiers: Glycemic state: with hyperglycemia Qualified Code(s): E11.65 - Type 2 diabetes mellitus with hyperglycemia Is this a current diagnosis for this admission?: No (6) Hyperkalemia Is this a current diagnosis for this admission?: Yes (7) Nausea & vomiting Is this a current diagnosis for this admission?: Yes (8) Hyperlipidemia Is this a current diagnosis for this admission?: Yes
--- NOTE | 2020-01-08 14:05 | PDOC PROGRESS REPORT ---
Subjective Progress Note for:: 01/08/20 Subjective:: FREDDIE LAZO JR is a 59 year old male history of type 2 diabetes mellitus on insulin, osteoarthritis on pain medications came to the emergency room with complaints of nausea vomiting for the last 4 days. Vomiting clear liquids unable to keep anything down. Denies any abdominal pain denies any diarrhea. Denies any fever denies any other symptoms except for severe dizziness. Denies any drug use. Agreed to stay in the hospital for further evaluation and wants t o be DNR/DNI. 01/06/2020. No acute events overnight, patient complaining of chronic low back and bilateral knee pain and requiring his narcotics, refusing to have a Varner catheter placed, vomiting has resolved, denies any fever, chills, nausea, vomiting, diarrhea, constipation or any urinary symptoms. 01/07/2020. Patient complaining of nausea and vertigo, denies any chest pain, shortness of breath, diarrhea, constipation or any urinary symptoms. 01/08/2020. No acute events overnight. Vertigo and nausea has improved significantly since being started on meclizine, patient is nonoliguric and rating his p.o. intake. Denies any fever, chills, nausea, vomiting, diarrhea, constipation or any urinary symptoms. Reason For Visit: ZURDO Physical Exam Vital Signs: Temp Pulse Resp BP Pulse Ox 98.6 F 86 8 L 169/80 H 97 01/08/20 07:34 01/08/20 07:34 01/08/20 07:34 01/08/20 07:34 01/08/20 07:34 Intake & Output 01/07/20 01/08/20 01/09/20 06:59 06:59 06:59 Intake Total 5317 2479 1000 Output Total 1800 2495 Balance 3517 -16 1000 Weight 82.4 kg 83.7 kg General appearance: PRESENT: no acute distress, well-developed, well-nourished Head exam: PRESENT: atraumatic, normocephalic Respiratory exam: PRESENT: clear to auscultation yousif. ABSENT: rales, rhonchi, wheezes GI/Abdominal exam: PRESENT: normal bowel sounds, soft. ABSENT: distended, guarding, mass, organolmegaly, rebound, tenderness Neurological exam: PRESENT: alert, awake, oriented to person, oriented to place, oriented to time, oriented to situation, CN II-XII grossly intact. ABSENT: motor sensory deficit Results Laboratory Results: 01/08/20 04:59 01/08/20 04:59 01/08/20 01/08/20 04:59 04:59 WBC 11.4 H RBC 3.64 L Hgb 10.7 L Hct 32.1 L MCV 88 MCH 29.3 MCHC 33.2 RDW 14.6 H Plt Count 289 Sodium 139.8 Potassium 4.1 Chloride 111 H Carbon Dioxide 22 Anion Gap 7 BUN 40 H Creatinine 3.20 H Est GFR ( Amer) 24 L Glucose 155 H Calcium 8.8 Phosphorus 4.3 Magnesium 1.6 01/05/20 01/05/20 01/06/20 19:28 19:28 01:22 Creatine Kinase 39 L Troponin I < 0.012 < 0.012 NT-Pro-B Natriuret Pep 01/06/20 01/06/20 08:00 09:06 Creatine Kinase Troponin I Cancelled < 0.012 NT-Pro-B Natriuret Pep Cancelled 2920 H Impressions: Chest X-Ray 01/05/20 00:00 IMPRESSION: No evidence of acute cardiopulmonary abnormality. KUB X-Ray 01/05/20 00:00 IMPRESSION: Nonspecific, nonobstructed bowel gas pattern. Renal Ultrasound 01/05/20 00:00 IMPRESSION: Unremarkable renal sonogram. No evidence of hydronephrosis to suggest obstruction as the cause of the patient's renal dysfunction. Assessment and Plan - Diagnosis (1) Hypertensive emergency Is this a current diagnosis for this admission?: Yes Plan: Improving. Not optimized. Presented with ZURDO, elevated proBNP, SBP in 200s. History of uncontrolled and untreated hypertension. Continue Coreg 25 mg p.o. twice daily PRN IV hydralazine. Continue amlodipine 5 mg p.o. daily. Not a candidate for DUSTY, ARB or diuretics at this point due to ZURDO. Will reevaluate once kidney function improves. Adjust meds as needed. (2) ZURDO (acute kidney injury) Is this a current diagnosis for this admission?: Yes Plan: Multifactorial. Nonoliguric. Mild improvement. Likely due to untreated hypertension complicated by uncontrolled diabetes and chronic NSAID use for osteoarthritis. Patient has significant proteinuria most likely due to chronic untreated diabetes and hypertension. Renal ultrasound negative for any hydronephrosis or nephrolithiasis. Denies any history of BPH. Cautious volume restriction guided by volume status. Monitor volume status and electrolytes replace as needed. Daily electrolytes. Nephrology consulted. Recommendations noted. (3) Acute CHF Qualifiers: Heart failure type: unspecified Qualified Code(s): I50.9 - Heart failure, unspecified Is this a current diagnosis for this admission?: Yes Plan: Denies any history of CAD. Denies any anginal symptoms. proBNP 2920. No Echo available. Cardiac diet, strict in and out, beta-blockers, not a candidate for DUSTY/ARB or diuretics due to worsening renal function. Will start on DUSTY/ARB or diuretics once kidney function stabilizes. Pending 2D echo. (4) Osteoarthritis Qualifiers: Osteoarthritis location: multiple joints Is this a current diagnosis for this admission?: Yes Plan: History of chronic multiple joint osteoarthritis. Opioid dependent. Resume opiates DC NSAIDs. Monitor for fall respiratory depression and seizure. (5) Diabetes type 2, uncontrolled Qualifiers: Glycemic state: with hyperglycemia Qualified Code(s): E11.65 - Type 2 diabetes mellitus with hyperglycemia Is this a current diagnosis for this admission?: No Plan: Improving. Not optimized. History of uncontrolled diabetes. Hemoglobin A1c 13%. Diabetic diet, basal, prandial and correctional insulin. Hypoglycemia protocol. Adjust insulin dosage as needed. Accu-Cheks. Diabetic education. (6) Hyperkalemia Is this a current diagnosis for this admission?: Yes Plan: Resolved. (7) Nausea & vomiting Is this a current diagnosis for this admission?: Yes Plan: Still complaining of nausea. No vomiting. Continue antiemetics. (8) Hyperlipidemia Is this a current diagnosis for this admission?: Yes Plan: ASCVD score of 40%. TSH WNL. Diet and lifestyle modification recommended. We will start on high intensity statin. Monitor LFTs. Outpatient PCP follow-up. (9) Vertigo Is this a current diagnosis for this admission?: Yes Plan: Denies any hearing loss, denies any recent ear infection or uppercase impaction, has any head trauma. Significant improved meclizine. Negative [place]-Hallpike maneuver. Negative nystagmus. Continue fall precautions. Continue meclizine.
[2020-01-08] MEDS ORDERED: ACETAMINOPHEN 325 MG TABLET PO PRN (14:20)
--- NOTE | 2020-01-08 16:27 | XCELERA REPORT ---
[address] [address] Transthoracic Echocardiogram Report Name: CLIFTON FREDDIE Nguyễn JR Age: 59 yrs Gender: Male : 1960 Patient Status: Inpatient Patient Location: [address] [place] [address] Study Date: 01/08/2020 01:42 PM History: CHF Height: 67 in Weight: 188 lb BSA: 2.0 m2 Procedure: A complete two-dimensional transthoracic echocardiogram was performed (2D, M-mode, spectral and color flow Doppler). Reason For Study: chf Previous Evaluation: No previous studies were available. History: CHF. Ordering Physician: VAN NELSON Performed By: Odessa Pond Interpretation Summary Left ventricular systolic function is normal. The Ejection Fraction estimate is 55-60% The right ventricle is grossly normal size. There is a trace amount of mitral regurgitation There is a trace amount of tricuspid regurgitation Doppler measurements suggest pseudonormalized left ventricular relaxation, which is associated with grade II/IV or mild to moderate diastolic dysfunction There is no pericardial effusion. MMode/2D Measurements & Calculations RVDd: 1.9 cm LVIDd: 4.6 cm FS: 28.6 % Ao root diam: 3.0 cm IVSd: 1.3 cm LVIDs: 3.3 cm EDV(Teich): 98.4 ml Ao root area: 7.1 cm2 LVPWd: 1.3 cm ESV(Teich): 44.1 ml EF(Teich): 55.1 % Doppler Measurements & Calculations MV E max adali: MV dec slope: Ao V2 max: LV V1 max P.0 cm/sec 780.3 cm/sec2 130.5 cm/sec 4.2 mmHg MV A max adali: MV dec time: 0.16 secAo max PG: LV V1 max: 106.9 cm/sec 6.8 mmHg 102.3 cm/sec MV E/A: 1.1 MR max adali: PA V2 max: 380.4 cm/sec 84.2 cm/sec MR max P.9 mmHgPA max P.8 mmHg Left Ventricle The left ventricle is grossly normal size. There is mild concentric left ventricular hypertrophy. Left ventricular systolic function is normal. The Ejection Fraction estimate is 55-60%. Doppler measurements suggest pseudonormalized left ventricular relaxation, which is associated with grade II/IV or mild to moderate diastolic dysfunction. Regional wall motion abnormalities cannot be excluded due to limited visualization. Right Ventricle The right ventricle is grossly normal size. The right ventricular systolic function is normal. Atria The right atrium is normal. The left atrial size is normal. There is no Doppler evidence for an interatrial shunt. Mitral Valve The mitral valve is grossly normal. There is a trace amount of mitral regurgitation. Aortic Valve The aortic valve opens well. There is no aortic valve stenosis. No aortic regurgitation is present. Tricuspid Valve The tricuspid valve is normal in structure and function. There is a trace amount of tricuspid regurgitation. Tricuspid regurgitation jet envelope not well defined to measure RV systolic pressure accurately. Doppler findings do not suggest pulmonary hypertension. Pulmonic Valve The pulmonic valve is not well visualized. There is a trace amount of pulmonic regurgitation. Great Vessels The aortic root is normal size. Effusions There is no pericardial effusion. : VAN NELSON Anil
[2020-01-08] MEDS: ATORVASTATIN CALCIUM 40 MG TABLET PO SCH (21:12)
[2020-01-08] MEDS: CYCLOBENZAPRINE HCL 10 MG TABLET PO PRN (21:12)
[2020-01-08] MEDS: GABAPENTIN 300 MG CAPSULE PO SCH (21:12)
--- NOTE | 2020-01-09 00:28 | EKG REPORT ---
SEVERITY:- ABNORMAL ECG - SINUS RHYTHM NONSPECIFIC T ABNORMALITIES, DIFFUSE LEADS : Confirmed by: Katy Olivera 09-Jan-2020 00:26:44
[2020-01-09] MEDS: MECLIZINE HCL 12.5 MG TABLET PO SCH ×5 (05:49→22:04)
[2020-01-09] MEDS: OXYCODONE HCL IR 5 MG TABLET PO PRN ×2 (05:49→22:04)
[2020-01-09] MEDS: PANTOPRAZOLE SODIUM 20 MG TABLET.DR PO SCH (05:50)
[2020-01-09] MEDS: GABAPENTIN 300 MG CAPSULE PO SCH ×2 (05:50→15:45)
[2020-01-09 06:59] LABS: HEMATOCRIT 31.6 % (37.9-51.0); HEMOGLOBIN 10.4 g/dL (13.5-17.0); MEAN CORPUSCULAR HEMOGLOBIN 29.3 pg (27.0-33.4); MEAN CORPUSCULAR VOLUME 89 fl (80-97); PLATELET COUNT 276 10^3/uL (150-450); RED BLOOD COUNT 3.55 10^6/uL (4.35-5.55); RED CELL DISTRIBUTION WIDTH 14.4 % (11.5-14.0); WHITE BLOOD COUNT 12.6 10^3/uL (4.0-10.5)
[2020-01-09 07:29] LABS: ALKALINE PHOSPHATASE 62 U/L (38-126); ANION GAP 7 (5-19); ASPARTATE AMINO TRANSFERASE 14 U/L (17-59); BILIRUBIN,TOTAL 0.3 mg/dL (0.2-1.3); BLOOD UREA NITROGEN 46 mg/dL (7-20); CALCIUM 8.8 mg/dL (8.4-10.2); CARBON DIOXIDE 22 mmol/L (22-30); CHLORIDE 111 mmol/L (98-107); POTASSIUM 4.5 mmol/L (3.6-5.0); TOTAL PROTEIN 5.7 g/dL (6.3-8.2)
[2020-01-09 07:30] LABS: PHOSPHORUS 4.2 mg/dL (2.5-4.5)
[2020-01-09 07:33] LABS: GLUCOSE 57 mg/dL (75-110)
[2020-01-09] MEDS: INSULIN LISPRO 100 UNIT/ML 3 ML VIAL SUBCUT SCH ×4 (08:00→22:14)
[2020-01-09 08:39] LABS: ABSOLUTE RETICS # 0.042 10^6/uL (0.028-0.122); RETICULOCYTE COUNT (AUTO) 1.19 % (0.66-2.85)
[2020-01-09 08:56] LABS: IRON(TIBC) 20.1 ug/dL (49-181)
[2020-01-09] MEDS: CARVEDILOL 12.5 MG TABLET PO SCH (09:47)
[2020-01-09] MEDS: AMLODIPINE BESYLATE 5 MG TABLET PO SCH (09:47)
[2020-01-09] MEDS: ENOXAPARIN SODIUM INJ 30 MG/0.3 ML DISP.SYRIN SUBCUT SCH (09:51)
[2020-01-09] MEDS: INSULIN GLARGINE,HUM.REC.ANLOG 1,000 UNIT/10 ML VIAL SUBCUT SCH (09:52)
[2020-01-09 10:06] LABS: FOLATE 6.24 ng/mL (>2.76)
--- NOTE | 2020-01-09 10:42 | PDOC PROGRESS REPORT ---
Subjective Progress Note for:: 01/09/20 Subjective:: Patient was seen sitting up in his bed. At the time the only complaint he had was dizziness from the vertigo. It had improved but still was not 100% better. He denied nausea/vomiting. He denied chest pain or SOB. Urine output was greater than 2L. Denies fevers or chills. Reason For Visit: ZURDO Physical Exam Vital Signs: Temp Pulse Resp BP Pulse Ox 97.9 F 81 19 129/81 H 98 01/09/20 07:34 01/09/20 07:34 01/09/20 07:34 01/09/20 07:34 01/09/20 07:34 Intake & Output 01/08/20 01/09/20 01/10/20 06:59 06:59 06:59 Intake Total 2479 1640 Output Total 2495 500 Balance -16 1140 Weight 83.7 kg 84.2 kg 84.2 kg General appearance: PRESENT: no acute distress, well-developed, well-nourished Mouth exam: PRESENT: moist, neck supple Neck exam: ABSENT: JVD, tracheal deviation Respiratory exam: PRESENT: clear to auscultation yousif. ABSENT: crackles, rales, rhonchi, wheezes Cardiovascular exam: PRESENT: +S1, +S2 GI/Abdominal exam: PRESENT: normal bowel sounds, soft. ABSENT: organomegaly, tenderness Extremities exam: PRESENT: joint swelling, other - charcot feet. ABSENT: pedal edema, +1 edema, +2 edema Musculoskeletal exam: PRESENT: deformity - charcot feet. ABSENT: normal inspection, tenderness Neurological exam: PRESENT: alert, awake, oriented to person, oriented to place, oriented to time, oriented to situation Psychiatric exam: PRESENT: appropriate affect, normal mood Skin exam: PRESENT: dry, intact, warm. ABSENT: cyanosis Results Laboratory Results: 01/09/20 06:45 01/09/20 06:45 01/09/20 01/09/20 01/09/20 06:45 06:45 06:45 WBC 12.6 H RBC 3.55 L Hgb 10.4 L Hct 31.6 L MCV 89 MCH 29.3 MCHC 33.0 RDW 14.4 H Plt Count 276 Retic Count (auto) Sodium Cancelled Potassium Cancelled Chloride Cancelled Carbon Dioxide Cancelled Anion Gap Cancelled BUN Cancelled Creatinine Cancelled Est GFR ( Amer) Cancelled Est GFR (Non-Af Amer) Cancelled Glucose Cancelled Calcium Cancelled Phosphorus 4.2 Magnesium 1.6 Iron TIBC % Saturation Transferrin Ferritin Total Bilirubin AST Alkaline Phosphatase Total Protein Albumin Vitamin B12 Folate PTH Intact 90.7 H 01/09/20 01/09/20 01/09/20 06:45 06:45 06:45 WBC RBC Hgb Hct MCV MCH MCHC RDW Plt Count Retic Count (auto) 1.19 Sodium 140.1 Potassium 4.5 Chloride 111 H Carbon Dioxide 22 Anion Gap 7 BUN 46 H Creatinine 3.67 H Est GFR ( Amer) 21 L Est GFR (Non-Af Amer) Glucose 57 L Calcium 8.8 Phosphorus Magnesium Iron 20.1 L TIBC 258 % Saturation 8 Transferrin Ferritin 78.60 Total Bilirubin 0.3 AST 14 L Alkaline Phosphatase 62 Total Protein 5.7 L Albumin 3.0 L Vitamin B12 369.0 Folate 6.24 PTH Intact 01/09/20 06:45 WBC RBC Hgb Hct MCV MCH MCHC RDW Plt Count Retic Count (auto) Sodium Potassium Chloride Carbon Dioxide Anion Gap BUN Creatinine Est GFR ( Amer) Est GFR (Non-Af Amer) Glucose Calcium Phosphorus Magnesium Iron TIBC % Saturation Transferrin 180.99 L Ferritin Total Bilirubin AST Alkaline Phosphatase Total Protein Albumin Vitamin B12 Folate PTH Intact 01/05/20 01/05/20 01/06/20 19:28 19:28 01:22 Creatine Kinase 39 L Troponin I < 0.012 < 0.012 NT-Pro-B Natriuret Pep 01/06/20 01/06/20 08:00 09:06 Creatine Kinase Troponin I Cancelled < 0.012 NT-Pro-B Natriuret Pep Cancelled 2920 H Impressions: Chest X-Ray 01/05/20 00:00 IMPRESSION: No evidence of acute cardiopulmonary abnormality. KUB X-Ray 01/05/20 00:00 IMPRESSION: Nonspecific, nonobstructed bowel gas pattern. Renal Ultrasound 01/05/20 00:00 IMPRESSION: Unremarkable renal sonogram. No evidence of hydronephrosis to suggest obstruction as the cause of the patient's renal dysfunction. Assessment & Plan - Diagnosis (1) ZURDO (acute kidney injury) Plan: nonoliguric, looks to have been from nausea/vomiting/diarrhea. Now looks to be close to what one could expect his baseline to be with his underlining poorly controlled diabetes. He does appear the need to keep hydrating a little better. Advised on better hydration. Follow up with labs tomorrow. Pending hydration he may need some more saline. (2) CKD stage 4 due to type 2 diabetes mellitus Plan: looks to have underlining chronic kidney disease from long standing diabetes and HTN. He also has a history of using NSAIDs. Proteinuria was 1.1g/day, PTH was slightly elevated at 90. Will have him follow up in the office with labs when he is discharged. (3) Diabetes type 2, uncontrolled Qualifiers: Glycemic state: with hyperglycemia Qualified Code(s): E11.65 - Type 2 diabetes mellitus with hyperglycemia Is this a current diagnosis for this admission?: No Plan: Advised on tighter control of diabetes. He does have evidence of long standing poorly controlled diabetes. (4) Hypertension Plan: controlled (5) Proteinuria Plan: UPC was 1.1g/day. Advised on tighter control of his diabetes. (6) Hyperkalemia Is this a current diagnosis for this admission?: Yes Plan: resolved (7) Nausea & vomiting Is this a current diagnosis for this admission?: Yes Plan: resolved (8) Osteoarthritis Qualifiers: Osteoarthritis location: multiple joints Is this a current diagnosis for this admission?: Yes Plan: on oxy (9) Vertigo Is this a current diagnosis for this admission?: Yes Plan: on meclizine
--- NOTE | 2020-01-09 12:14 | PDOC PROGRESS REPORT ---
Subjective Progress Note for:: 01/09/20 Subjective:: FREDDIE LAZO JR is a 59 year old male history of type 2 diabetes mellitus on insulin, osteoarthritis on pain medications came to the emergency room with complaints of nausea vomiting for the last 4 days. Vomiting clear liquids unable to keep anything down. Denies any abdominal pain denies any diarrhea. Denies any fever denies any other symptoms except for severe dizziness. Denies any drug use. Agreed to stay in the hospital for further evaluation and wants t o be DNR/DNI. 01/06/2020. No acute events overnight, patient complaining of chronic low back and bilateral knee pain and requiring his narcotics, refusing to have a Varner catheter placed, vomiting has resolved, denies any fever, chills, nausea, vomiting, diarrhea, constipation or any urinary symptoms. 01/07/2020. Patient complaining of nausea and vertigo, denies any chest pain, shortness of breath, diarrhea, constipation or any urinary symptoms. 01/08/2020. No acute events overnight. Vertigo and nausea has improved significantly since being started on meclizine, patient is nonoliguric and rating his p.o. intake. Denies any fever, chills, nausea, vomiting, diarrhea, constipation or any urinary symptoms. 01/09/2020. No acute events overnight. Noted to be hypoglycemic this morning, patient still complaining of vertigo but reports moderate improvement since admission denies any fever, chills, nausea, vomiting, diarrhea, constipation or any urinary symptoms. P.o. tolerant. Having normal bowel and bladder movements. Reason For Visit: ZURDO Physical Exam Vital Signs: Temp Pulse Resp BP Pulse Ox 97.9 F 81 19 129/81 H 98 01/09/20 07:34 01/09/20 07:34 01/09/20 07:34 01/09/20 07:34 01/09/20 07:34 Intake & Output 01/08/20 01/09/20 01/10/20 06:59 06:59 06:59 Intake Total 2479 1640 Output Total 2495 500 Balance -16 1140 Weight 83.7 kg 84.2 kg 84.2 kg Results Laboratory Results: 01/09/20 06:45 01/09/20 06:45 01/09/20 01/09/20 01/09/20 06:45 06:45 06:45 WBC 12.6 H RBC 3.55 L Hgb 10.4 L Hct 31.6 L MCV 89 MCH 29.3 MCHC 33.0 RDW 14.4 H Plt Count 276 Retic Count (auto) Sodium Cancelled Potassium Cancelled Chloride Cancelled Carbon Dioxide Cancelled Anion Gap Cancelled BUN Cancelled Creatinine Cancelled Est GFR ( Amer) Cancelled Est GFR (Non-Af Amer) Cancelled Glucose Cancelled Calcium Cancelled Phosphorus 4.2 Magnesium 1.6 Iron TIBC % Saturation Transferrin Ferritin Total Bilirubin AST Alkaline Phosphatase Total Protein Albumin Vitamin B12 Folate PTH Intact 90.7 H 01/09/20 01/09/20 01/09/20 06:45 06:45 06:45 WBC RBC Hgb Hct MCV MCH MCHC RDW Plt Count Retic Count (auto) 1.19 Sodium 140.1 Potassium 4.5 Chloride 111 H Carbon Dioxide 22 Anion Gap 7 BUN 46 H Creatinine 3.67 H Est GFR ( Amer) 21 L Est GFR (Non-Af Amer) Glucose 57 L Calcium 8.8 Phosphorus Magnesium Iron 20.1 L TIBC 258 % Saturation 8 Transferrin Ferritin 78.60 Total Bilirubin 0.3 AST 14 L Alkaline Phosphatase 62 Total Protein 5.7 L Albumin 3.0 L Vitamin B12 369.0 Folate 6.24 PTH Intact 01/09/20 06:45 WBC RBC Hgb Hct MCV MCH MCHC RDW Plt Count Retic Count (auto) Sodium Potassium Chloride Carbon Dioxide Anion Gap BUN Creatinine Est GFR ( Amer) Est GFR (Non-Af Amer) Glucose Calcium Phosphorus Magnesium Iron TIBC % Saturation Transferrin 180.99 L Ferritin Total Bilirubin AST Alkaline Phosphatase Total Protein Albumin Vitamin B12 Folate PTH Intact 01/05/20 01/05/20 01/06/20 19:28 19:28 01:22 Creatine Kinase 39 L Troponin I < 0.012 < 0.012 NT-Pro-B Natriuret Pep 01/06/20 01/06/20 08:00 09:06 Creatine Kinase Troponin I Cancelled < 0.012 NT-Pro-B Natriuret Pep Cancelled 2920 H Impressions: Chest X-Ray 01/05/20 00:00 IMPRESSION: No evidence of acute cardiopulmonary abnormality. KUB X-Ray 01/05/20 00:00 IMPRESSION: Nonspecific, nonobstructed bowel gas pattern. Renal Ultrasound 01/05/20 00:00 IMPRESSION: Unremarkable renal sonogram. No evidence of hydronephrosis to suggest obstruction as the cause of the patient's renal dysfunction. Assessment and Plan - Diagnosis (1) Hypertensive emergency Is this a current diagnosis for this admission?: Yes Plan: Moderate improvement. Optimize. Presented with ZURDO, elevated proBNP, SBP in 200s. History of uncontrolled and untreated hypertension. Continue Coreg 25 mg p.o. twice daily PRN IV hydralazine. Continue amlodipine 5 mg p.o. daily. Not a candidate for DUSTY, ARB or diuretics at this point due to ZURDO. Will reevaluate once kidney function improves. Adjust meds as needed. (2) ZURDO (acute kidney injury) Is this a current diagnosis for this admission?: Yes Plan: Multifactorial. Nonoliguric. Renal function is stable. Possibly this is his baseline. Likely due to untreated hypertension complicated by uncontrolled diabetes and chronic NSAID use for osteoarthritis. Has been using Mobic chronically for his osteoarthritis and Excedrin for his chronic migraines very frequently. Patient has significant proteinuria most likely due to chronic untreated diabetes and hypertension. PTH elevated. Renal ultrasound negative for any hydronephrosis or nephrolithiasis. Denies any history of BPH. Monitor volume status and electrolytes replace as needed. Avoid nephrotoxic meds. Patient was advised to avoid NSAIDs and counseled on the risk of continued NSAID intake. Daily electrolytes. Nephrology consulted. Recommendations noted. Outpatient PCP and nephrology follow-up. (3) Acute CHF Qualifiers: Heart failure type: diastolic Qualified Code(s): I50.31 - Acute diastolic (congestive) heart failure Is this a current diagnosis for this admission?: Yes Plan: Acute on chronic chronic diastolic heart failure. Most likely due to chronic uncontrolled hypertension complicated by underlying uncontrolled diabetes. Denies any history of CAD. Denies any anginal symptoms. proBNP 2920. 2D echo LVEF 60-65%. Stage II diastolic dysfunction. Continue cardiac diet, strict in and out, beta-blockers Not a candidate for DUSTY/ARB or diuretics due to worsening renal function. Need to be reevaluated by PCP and seed laboratory technician possible initiation of DUSTY/ARB as outpatient. (4) Osteoarthritis Qualifiers: Osteoarthritis location: multiple joints Is this a current diagnosis for this admission?: Yes Plan: History of chronic multiple joint osteoarthritis. Opioid dependent. Resume opiates DC NSAIDs. Monitor for fall respiratory depression and seizure. (5) Diabetes type 2, uncontrolled Qualifiers: Glycemic state: with hyperglycemia Qualified Code(s): E11.65 - Type 2 diabetes mellitus with hyperglycemia Is this a current diagnosis for this admission?: No Plan: Noted to be hypoglycemic this morning. Patient may need less insulin as he is having worsening CKD. History of uncontrolled diabetes. Hemoglobin A1c 13%. Decrease Lantus to 10 units from 15 units. Continue diabetic diet, basal and correctional insulin. Continue hypoglycemia protocol and Accu-Cheks. Adjust insulin dosage as needed. Diabetic education. (6) Hyperkalemia Is this a current diagnosis for this admission?: Yes Plan: Resolved. (7) Nausea & vomiting Is this a current diagnosis for this admission?: Yes Plan: Resolved. No vomiting. Continue antiemetics. (8) Hyperlipidemia Is this a current diagnosis for this admission?: Yes Plan: ASCVD score of 40%. TSH WNL. Diet and lifestyle modification recommended. We will start on high intensity statin. Monitor LFTs. Outpatient PCP follow-up. (9) Vertigo Is this a current diagnosis for this admission?: Yes Plan: Denies any hearing loss, denies any recent ear infection or uppercase impaction, has any head trauma. Significant improved meclizine. Negative James-Hallpike maneuver. Negative nystagmus. Continue fall precautions. Continue meclizine.
[2020-01-09] MEDS ORDERED: POLYETHYLENE GLYCOL 3350 POWDER 17 GM/1 PACKET PO PRN (14:01)
[2020-01-09] MEDS ORDERED: BISACODYL 5 MG TABEC PO PRN (14:01)
[2020-01-09] MEDS ORDERED: GABAPENTIN 300 MG CAPSULE PO SCH (22:00)
[2020-01-09] MEDS: GABAPENTIN 100 MG CAPSULE PO SCH (22:04)
[2020-01-09] MEDS: ATORVASTATIN CALCIUM 40 MG TABLET PO SCH (22:04)
[2020-01-09] MEDS: CYCLOBENZAPRINE HCL 10 MG TABLET PO PRN (22:04)
[2020-01-10] MEDS: MECLIZINE HCL 12.5 MG TABLET PO SCH ×4 (02:56→14:14)
[2020-01-10] MEDS ORDERED: MECLIZINE HCL 12.5 MG TABLET ONE (04:09)
[2020-01-10] MEDS: PANTOPRAZOLE SODIUM 20 MG TABLET.DR PO SCH (05:35)
[2020-01-10] MEDS: GABAPENTIN 100 MG CAPSULE PO SCH ×2 (05:35→14:14)
[2020-01-10] MEDS: OXYCODONE HCL IR 5 MG TABLET PO PRN ×2 (05:35→11:50)
[2020-01-10 07:04] LABS: ABSOLUTE BASOPHILS # (AUTO) 0.1 10^3/uL (0.0-0.2); ABSOLUTE EOSINOPHILS # (AUTO) 0.3 10^3/uL (0.0-0.6); ABSOLUTE LYMPHOCYTES (AUTO) 1.7 10^3/uL (0.5-4.7); ABSOLUTE MONOCYTES (AUTO) 1.1 10^3/uL (0.1-1.4); ABSOLUTE NEUT (AUTO) 13.5 10^3/uL (1.7-8.2); BASOPHILS % (AUTO) 0.4 % (0-2); EOSINOPHILS % (AUTO) 1.6 % (0-6); HEMATOCRIT 30.7 % (37.9-51.0); HEMOGLOBIN 10.1 g/dL (13.5-17.0); LYMPHOCYTES % (AUTO) 10.2 % (13-45); MEAN CORPUSCULAR HEMOGLOBIN 29.5 pg (27.0-33.4); MEAN CORPUSCULAR HGB CONC 32.9 g/dL (32.0-36.0); MEAN CORPUSCULAR VOLUME 90 fl (80-97); MONOCYTES % (AUTO) 6.5 % (3-13); PLATELET COUNT 245 10^3/uL (150-450); RED BLOOD COUNT 3.43 10^6/uL (4.35-5.55); RED CELL DISTRIBUTION WIDTH 14.4 % (11.5-14.0); SEGMENTED NEUTROPHILS % (AUTO) 81.3 % (42-78); TOTAL CELLS COUNTED % (AUTO) 100 %; WHITE BLOOD COUNT 16.6 10^3/uL (4.0-10.5)
[2020-01-10 07:29] LABS: ANION GAP 8 (5-19); BLOOD UREA NITROGEN 54 mg/dL (7-20); CARBON DIOXIDE 24 mmol/L (22-30); CHLORIDE 109 mmol/L (98-107); GLUCOSE 112 mg/dL (75-110); POTASSIUM 4.7 mmol/L (3.6-5.0)
[2020-01-10] MEDS ORDERED: NORMAL SALINE 1000 ML 1,000 ML IV PRN ×2 (08:09→08:13)
[2020-01-10] MEDS: ENOXAPARIN SODIUM INJ 30 MG/0.3 ML DISP.SYRIN SUBCUT SCH (10:48)
[2020-01-10] MEDS: INSULIN LISPRO 100 UNIT/ML 3 ML VIAL SUBCUT SCH ×2 (10:48→13:33)
[2020-01-10] MEDS: INSULIN GLARGINE,HUM.REC.ANLOG 1,000 UNIT/10 ML VIAL SUBCUT SCH (10:54)
[2020-01-10] MEDS: AMLODIPINE BESYLATE 5 MG TABLET PO SCH (10:56)
[2020-01-10] MEDS: LEVOFLOXACIN 750 MG TABLET PO SCH (10:56)
[2020-01-10] MEDS: CARVEDILOL 12.5 MG TABLET PO SCH (10:57)
--- NOTE | 2020-01-10 11:00 | PDOC PROGRESS REPORT ---
Subjective Progress Note for:: 01/10/20 Subjective:: FREDDIE LAZO JR is a 59 year old male history of type 2 diabetes mellitus on insulin, osteoarthritis on pain medications came to the emergency room with complaints of nausea vomiting for the last 4 days. Vomiting clear liquids unable to keep anything down. Denies any abdominal pain denies any diarrhea. Denies any fever denies any other symptoms except for severe dizziness. Denies any drug use. Agreed to stay in the hospital for further evaluation and wants t o be DNR/DNI. 01/06/2020. No acute events overnight, patient complaining of chronic low back and bilateral knee pain and requiring his narcotics, refusing to have a Varner catheter placed, vomiting has resolved, denies any fever, chills, nausea, vomiting, diarrhea, constipation or any urinary symptoms. 01/07/2020. Patient complaining of nausea and vertigo, denies any chest pain, shortness of breath, diarrhea, constipation or any urinary symptoms. 01/08/2020. No acute events overnight. Vertigo and nausea has improved significantly since being started on meclizine, patient is nonoliguric and rating his p.o. intake. Denies any fever, chills, nausea, vomiting, diarrhea, constipation or any urinary symptoms. 01/09/2020. No acute events overnight. Noted to be hypoglycemic this morning, patient still complaining of vertigo but reports moderate improvement since admission denies any fever, chills, nausea, vomiting, diarrhea, constipation or any urinary symptoms. P.o. tolerant. Having normal bowel and bladder movements. 01/10/2020. No acute events overnight. Vertigo has been controlled with meclizine, denies any nausea or vomiting, p.o. tolerant, having normal bowel and bladder movement. Denies any fever, chills, nausea, vomiting, diarrhea, constipation or any urinary symptoms. Unfortunate patient guaiac is positive and he has agreed to undergo upper and lower GI endoscopy if needed. Reason For Visit: ZURDO Physical Exam Vital Signs: Temp Pulse Resp BP Pulse Ox 98.5 F 84 18 112/71 98 01/10/20 07:44 01/10/20 07:44 01/10/20 07:44 01/10/20 07:44 01/10/20 07:44 Intake & Output 01/09/20 01/10/2020 06:59 06:59 06:59 Intake Total 1640 1084 Output Total 500 0 Balance 1140 1084 Weight 84.2 kg 85 kg General appearance: PRESENT: no acute distress, obese, well-developed, well- nourished Respiratory exam: PRESENT: clear to auscultation yousif. ABSENT: rales, rhonchi, wheezes Cardiovascular exam: PRESENT: RRR. ABSENT: diastolic murmur, rubs, systolic murmur GI/Abdominal exam: PRESENT: normal bowel sounds, soft. ABSENT: distended, guarding, mass, organolmegaly, rebound, tenderness Neurological exam: PRESENT: alert, awake, oriented to person, oriented to place, oriented to time, oriented to situation, CN II-XII grossly intact. ABSENT: motor sensory deficit Results Laboratory Results: 01/10/20 06:30 01/10/20 06:30 01/09/20 01/10/20 01/10/20 19:30 06:30 06:30 WBC 16.6 H RBC 3.43 L Hgb 10.1 L Hct 30.7 L MCV 90 MCH 29.5 MCHC 32.9 RDW 14.4 H Plt Count 245 Seg Neutrophils % 81.3 H Sodium 140.5 Potassium 4.7 Chloride 109 H Carbon Dioxide 24 Anion Gap 8 BUN 54 H Creatinine 4.18 H Est GFR ( Amer) 18 L Glucose 112 H Calcium 9.0 Stool Occult Blood POSITIVE 01/05/20 01/05/20 01/06/20 19:28 19:28 01:22 Creatine Kinase 39 L Troponin I < 0.012 < 0.012 NT-Pro-B Natriuret Pep 01/06/20 01/06/20 08:00 09:06 Creatine Kinase Troponin I Cancelled < 0.012 NT-Pro-B Natriuret Pep Cancelled 2920 H Impressions: Chest X-Ray 01/05/20 00:00 IMPRESSION: No evidence of acute cardiopulmonary abnormality. KUB X-Ray 01/05/20 00:00 IMPRESSION: Nonspecific, nonobstructed bowel gas pattern. Renal Ultrasound 01/05/20 00:00 IMPRESSION: Unremarkable renal sonogram. No evidence of hydronephrosis to suggest obstruction as the cause of the patient's renal dysfunction. Assessment and Plan - Diagnosis (1) Hypertensive emergency Is this a current diagnosis for this admission?: Yes Plan: Moderate improvement. OptimizeD. Presented with ZURDO, elevated proBNP, SBP in 200s. History of uncontrolled and untreated hypertension. Continue Coreg 25 mg p.o. twice daily PRN IV hydralazine. Continue amlodipine 5 mg p.o. daily. Not a candidate for DUSTY, ARB or diuretics at this point due to ZURDO. Will reevaluate once kidney function improves. Adjust meds as needed. (2) ZURDO (acute kidney injury) Is this a current diagnosis for this admission?: Yes Plan: Multifactorial. Nonoliguric. Renal function is stable. Possibly this is his baseline. Likely due to untreated hypertension complicated by uncontrolled diabetes and chronic NSAID use for osteoarthritis. Has been using Mobic chronically for his osteoarthritis and Excedrin for his chronic migraines very frequently. Patient has significant proteinuria most likely due to chronic untreated diabetes and hypertension. PTH elevated. Renal ultrasound negative for any hydronephrosis or nephrolithiasis. Denies any history of BPH. Monitor volume status and electrolytes replace as needed. Avoid nephrotoxic meds. Patient was advised to avoid NSAIDs and counseled on the risk of continued NSAID intake. Daily electrolytes. Nephrology consulted. Recommendations noted. Outpatient PCP and nephrology follow-up. (3) Acute CHF Qualifiers: Heart failure type: diastolic Qualified Code(s): I50.31 - Acute diastolic (congestive) heart failure Is this a current diagnosis for this admission?: Yes Plan: Acute on chronic chronic diastolic heart failure. Most likely due to chronic uncontrolled hypertension complicated by underlying uncontrolled diabetes. Denies any history of CAD. Denies any anginal symptoms. proBNP 2920. 2D echo LVEF 60-65%. Stage II diastolic dysfunction. Continue cardiac diet, strict in and out, beta-blockers Not a candidate for DUSTY/ARB or diuretics due to worsening renal function. Need to be reevaluated by PCP and pancake professional possible initiation of DUSTY/ARB as outpatient. (4) Osteoarthritis Qualifiers: Osteoarthritis location: multiple joints Osteoarthritis type: unspecified Qualified Code(s): M15.9 - Polyosteoarthritis, unspecified Is this a current diagnosis for this admission?: Yes Plan: History of chronic multiple joint osteoarthritis. Opioid dependent. Resume opiates DC NSAIDs. Monitor for fall respiratory depression and seizure. (5) Diabetes type 2, uncontrolled Qualifiers: Glycemic state: with hyperglycemia Qualified Code(s): E11.65 - Type 2 diabetes mellitus with hyperglycemia Is this a current diagnosis for this admission?: No Plan: Controlled. Patient may need less insulin as he is having worsening CKD. History of uncontrolled diabetes. Hemoglobin A1c 13%. Continue Lantus 10 units daily. Continue diabetic diet, basal and correctional insulin. Continue hypoglycemia protocol and Accu-Cheks. Adjust insulin dosage as needed. Diabetic education. (6) Hyperkalemia Is this a current diagnosis for this admission?: Yes Plan: Resolved. (7) Nausea & vomiting Qualifiers: Vomiting type: unspecified Vomiting Intractability: intractable Qualified Code(s): R11.2 - Nausea with vomiting, unspecified Is this a current diagnosis for this admission?: Yes Plan: Resolved. No vomiting. Continue antiemetics. (8) Hyperlipidemia Qualifiers: Hyperlipidemia type: unspecified Qualified Code(s): E78.5 - Hyperlipidemia, unspecified Is this a current diagnosis for this admission?: Yes Plan: ASCVD score of 40%. TSH WNL. Diet and lifestyle modification recommended. We will start on high intensity statin. Monitor LFTs. Outpatient PCP follow-up. (9) Vertigo Is this a current diagnosis for this admission?: Yes Plan: Improving with meclizine. Denies any hearing loss, denies any recent ear infection or uppercase impaction, has any head trauma. Negative Centrah[place]-Hallpike maneuver. Negative nystagmus. Continue fall precautions. Continue meclizine. (10) Anemia Qualifiers: Anemia type: due to chronic kidney disease Chronic kidney disease stage: stage 4 (severe) Qualified Code(s): N18.4 - Chronic kidney disease, stage 4 (severe); D63.1 - Anemia in chronic kidney disease Is this a current diagnosis for this admission?: Yes Plan: Likely combination of anemia of chronic disease and iron deficiency anemia. Patient has history of chronic NSAID intake for osteoarthritis and migraine headaches. Denies any personal or family history of gastrointestinal malignancy. Never had upper or lower GI endoscopy. Iron 20.1, TIBC 258, saturation 8%, transferrin 180, ferritin 78.6. Guaiac positive. We will consult surgery for possible upper lower GI endoscopy. (11) Leukocytosis Is this a current diagnosis for this admission?: Yes Plan: SPO2 WNL. Afebrile. CXR on admission WNL. Worsening leukocytosis. Has been on empiric IV antibiotics since admission. Blood cultures negative so far.
[2020-01-10 11:28] VITALS: BP 110/63
[2020-01-10 11:51] LABS: HEMATOCRIT 32.1 % (37.9-51.0); HEMOGLOBIN 10.7 g/dL (13.5-17.0); MEAN CORPUSCULAR HEMOGLOBIN 29.7 pg (27.0-33.4); MEAN CORPUSCULAR HGB CONC 33.2 g/dL (32.0-36.0); MEAN CORPUSCULAR VOLUME 90 fl (80-97); PLATELET COUNT 231 10^3/uL (150-450); RED BLOOD COUNT 3.59 10^6/uL (4.35-5.55); RED CELL DISTRIBUTION WIDTH 14.7 % (11.5-14.0); WHITE BLOOD COUNT 21.6 10^3/uL (4.0-10.5)
[2020-01-10 12:18] LABS: ABSOLUTE LYMPHOCYTES# (MANUAL) 1.7 10^3/uL (0.5-4.7); ABSOLUTE MONOCYTES # (MANUAL) 0.6 10^3/uL (0.1-1.4); BASOPHILS % (MANUAL) 0 % (0-2); EOSINOPHILS % (MANUAL) 1 % (0-6); LYMPHOCYTES % (MANUAL) 8 % (13-45); MONOCYTES % (MANUAL) 3 % (3-13); SEGMENTED NEUTROPHILS % (MAN) 88 % (42-78); TOTAL CELLS COUNTED 100
[2020-01-10 12:19] LABS: PLATELET COMMENT ADEQUATE
[2020-01-10 12:20] LABS: ANISOCYTOSIS SLIGHT; PLATELET CLUMPS PRESENT; TOXIC VACUOLATION PRESENT
[2020-01-10 12:21] LABS: POIKILOCYTOSIS SLIGHT; TEAR DROP CELLS SLIGHT
--- NOTE | 2020-01-10 14:51 | PDOC PROGRESS REPORT ---
Subjective Progress Note for:: 01/10/20 Subjective:: Patient was seen sitting up in his care at the time of examination. He claimed to be doing well. He denies chest pain, SOB, N/V/D/C. He claims that the swelling is gone. He is scheduled for a colonoscopy tomorrow morning after having a positive occult stool. Currently doing the bowel prep today. Reason For Visit: ZURDO Physical Exam Vital Signs: Temp Pulse Resp BP Pulse Ox 98.8 F 92 18 110/63 94 01/10/20 11:25 01/10/20 11:25 01/10/20 11:25 01/10/20 11:25 01/10/20 11:25 Intake & Output 01/09/20 01/10/20 01/11/20 06:59 06:59 06:59 Intake Total 1640 1084 480 Output Total 500 0 1000 Balance 1140 1084 -520 Weight 84.2 kg 85 kg General appearance: PRESENT: no acute distress, well-developed, well-nourished Mouth exam: PRESENT: dry mucosa, neck supple Neck exam: ABSENT: JVD, tracheal deviation Respiratory exam: PRESENT: clear to auscultation yousif. ABSENT: crackles, rales, rhonchi, wheezes Cardiovascular exam: PRESENT: +S1, +S2 GI/Abdominal exam: PRESENT: normal bowel sounds, soft. ABSENT: organomegaly, tenderness Extremities exam: ABSENT: pedal edema, +1 edema, +2 edema Musculoskeletal exam: PRESENT: normal inspection. ABSENT: tenderness Neurological exam: PRESENT: alert, awake, oriented to person, oriented to place, oriented to time, oriented to situation Psychiatric exam: PRESENT: appropriate affect, normal mood Skin exam: PRESENT: dry, intact, warm. ABSENT: cyanosis Results Laboratory Results: 01/10/20 11:38 01/10/20 06:30 01/09/20 01/10/20 01/10/20 19:30 06:30 06:30 WBC 16.6 H RBC 3.43 L Hgb 10.1 L Hct 30.7 L MCV 90 MCH 29.5 MCHC 32.9 RDW 14.4 H Plt Count 245 Seg Neutrophils % 81.3 H Sodium 140.5 Potassium 4.7 Chloride 109 H Carbon Dioxide 24 Anion Gap 8 BUN 54 H Creatinine 4.18 H Est GFR ( Amer) 18 L Glucose 112 H Calcium 9.0 C-Reactive Protein Stool Occult Blood POSITIVE 01/10/20 01/10/20 06:30 11:38 WBC 21.6 H RBC 3.59 L Hgb 10.7 L Hct 32.1 L MCV 90 MCH 29.7 MCHC 33.2 RDW 14.7 H Plt Count 231 Seg Neutrophils % Not Reportable Sodium Potassium Chloride Carbon Dioxide Anion Gap BUN Creatinine Est GFR ( Amer) Glucose Calcium C-Reactive Protein 164.1 H Stool Occult Blood 01/05/20 01/05/20 01/06/20 19:28 19:28 01:22 Creatine Kinase 39 L Troponin I < 0.012 < 0.012 NT-Pro-B Natriuret Pep 01/06/20 01/06/20 08:00 09:06 Creatine Kinase Troponin I Cancelled < 0.012 NT-Pro-B Natriuret Pep Cancelled 2920 H Impressions: Chest X-Ray 01/05/20 00:00 IMPRESSION: No evidence of acute cardiopulmonary abnormality. KUB X-Ray 01/05/20 00:00 IMPRESSION: Nonspecific, nonobstructed bowel gas pattern. Renal Ultrasound 01/05/20 00:00 IMPRESSION: Unremarkable renal sonogram. No evidence of hydronephrosis to suggest obstruction as the cause of the patient's renal dysfunction. Assessment & Plan - Diagnosis (1) ZURDO (acute kidney injury) Plan: nonoliguric, looks to be on the dry side today. Will arrange for normal saline at 50mL an hour. Will follow up tomorrow with labs. He needs strict Is&Os. (2) CKD stage 4 due to type 2 diabetes mellitus Plan: looks to have underlining chronic kidney disease from long standing diabetes and HTN. He also has a history of using NSAIDs. Proteinuria was 1.1g/day, PTH was slightly elevated at 90. Will have him follow up in the office with labs when he is discharged. (3) Diabetes type 2, uncontrolled Qualifiers: Glycemic state: with hyperglycemia Qualified Code(s): E11.65 - Type 2 diabetes mellitus with hyperglycemia Is this a current diagnosis for this admission?: No Plan: Advised on tighter control of diabetes. He does have evidence of long standing poorly controlled diabetes. (4) Hypertension Plan: controlled (5) Proteinuria Plan: UPC was 1.1g/day. Advised on tighter control of his diabetes. Will hold off on DUSTY-Is and ARBs for now. (6) Hyperkalemia Is this a current diagnosis for this admission?: Yes Plan: resolved (7) Nausea & vomiting Is this a current diagnosis for this admission?: Yes Plan: resolved (8) Osteoarthritis Qualifiers: Osteoarthritis location: multiple joints Is this a current diagnosis for this admission?: Yes Plan: on oxy (9) Vertigo Is this a current diagnosis for this admission?: Yes Plan: on meclizine (10) Anemia Qualifiers: Anemia type: due to chronic kidney disease Chronic kidney disease stage: stage 4 (severe) Qualified Code(s): N18.4 - Chronic kidney disease, stage 4 (severe); D63.1 - Anemia in chronic kidney disease Is this a current diagnosis for this admission?: Yes Plan: Looks to have low iron levels possibly from blood loss. Has a colonoscopy tomorrow. (11) Elevated white blood cell count Plan: on levofloxacin and meropenem, which both look to be renal dosed.
[2020-01-10] MEDS ORDERED: MEROPENEM 500 MG in NORMAL SALINE 50 ML IV SCH (16:00)
[2020-01-10] MEDS ORDERED: LINEZOLID 600 MG/300 ML RTUPB IV SCH (22:00)
[2020-01-10] MEDS ORDERED: MEROPENEM 1 GM in NORMAL SALINE 50 ML IV SCH (22:00)
[2020-01-15 18:36] LABS: METHYLMALONIC ACID TEST 539 nmol/L (0-378)
--- NOTE | 2020-01-16 21:04 | PDOC DISCHARGE SUMMARY ---
Impression - Admit/DC Date/PCP Admission Date/Primary Care Provider: 01/05/20 18:32 GOLD ELENA Discharge Date: 01/10/20 - Discharge Diagnosis (1) Hypertensive emergency Is this a current diagnosis for this admission?: Yes (2) ZURDO (acute kidney injury) Is this a current diagnosis for this admission?: Yes (3) Acute CHF Is this a current diagnosis for this admission?: Yes (4) Osteoarthritis Is this a current diagnosis for this admission?: Yes (5) Diabetes type 2, uncontrolled Is this a current diagnosis for this admission?: Yes (6) Hyperkalemia Is this a current diagnosis for this admission?: Yes (7) Nausea & vomiting Is this a current diagnosis for this admission?: Yes (8) Hyperlipidemia Is this a current diagnosis for this admission?: Yes (9) Vertigo Is this a current diagnosis for this admission?: Yes (10) Anemia Is this a current diagnosis for this admission?: Yes (11) Leukocytosis Is this a current diagnosis for this admission?: Yes - Additional Information Resuscitation Status: Do Not Resuscitate Discharge Diet: Cardiac, Diabetic Discharge Activity: Activity As Tolerated, Balance Activity w/Rest, Weigh Daily Referrals: KWAN ELLSWORTH FNP-C [Primary Care Provider] - Follow up as needed Home Medications: Cyclobenzaprine HCl [Flexeril 10 mg Tablet] 10 mg PO TIDP PRN 01/06/20 Gabapentin [Neurontin] 800 mg PO Q8 01/06/20 Meloxicam [Mobic 7.5 mg Tablet] 7.5 mg PO Q12HP PRN 01/06/20 Oxycodone HCl [Oxy-Ir 5 mg Tablet] 15 mg PO Q6 01/06/20 History of Present Illiness History of Present Illness: FREDDIE LAZO JR is a 59 year old male history of type 2 diabetes mellitus on insulin, osteoarthritis on pain medications came to the emergency room with complaints of nausea vomiting for the last 4 days. Vomiting clear liquids unable to keep anything down. Denies any abdominal pain denies any diarrhea. Denies any fever denies any other symptoms except for severe dizziness. Denies any drug use. Agreed to stay in the hospital for further evaluation and wants to be DNR/DNI. Hospital Course Hospital Course: Unfortunately patient decided to leave [facility] even though he has elevated WBC and his kidney function worsening. Alert and oriented x3 in no apparent distress, answering questions appropriately, patient understand the consequence of leaving AMA without being treated for his ongoing medical problems. Patient was advised to come back to ED if he decides, and and we would be more than happy to take care of him. (1) Hypertensive emergency Moderate improvement. OptimizeD. Presented with ZURDO, elevated proBNP, SBP in 200s. History of uncontrolled and untreated hypertension. Continue Coreg 25 mg p.o. twice daily PRN IV hydralazine. Continue amlodipine 5 mg p.o. daily. Not a candidate for DUSTY, ARB or diuretics at this point due to ZURDO. Will reevaluate once kidney function improves. Adjust meds as needed. (2) ZURDO (acute kidney injury) Multifactorial. Nonoliguric. Renal function is stable. Possibly this is his baseline. Likely due to untreated hypertension complicated by uncontrolled diabetes and chronic NSAID use for osteoarthritis. Has been using Mobic chronically for his osteoarthritis and Excedrin for his chronic migraines very frequently. Patient has significant proteinuria most likely due to chronic untreated diabetes and hypertension. PTH elevated. Renal ultrasound negative for any hydronephrosis or nephrolithiasis. Denies any history of BPH. Monitor volume status and electrolytes replace as needed. Avoid nephrotoxic meds. Patient was advised to avoid NSAIDs and counseled on the risk of continued NSAID intake. Daily electrolytes. Nephrology consulted. Recommendations noted. Outpatient PCP and nephrology follow-up. (3) Acute CHF Acute on chronic chronic diastolic heart failure. Most likely due to chronic uncontrolled hypertension complicated by underlying uncontrolled diabetes. Denies any history of CAD. Denies any anginal symptoms. proBNP 2920. 2D echo LVEF 60-65%. Stage II diastolic dysfunction. Continue cardiac diet, strict in and out, beta-blockers Not a candidate for DUSTY/ARB or diuretics due to worsening renal function. Need to be reevaluated by PCP and machine molder possible initiation of DUSTY/ARB as outpatient. (4) Osteoarthritis History of chronic multiple joint osteoarthritis. Opioid dependent. Resume opiates DC NSAIDs. Monitor for fall respiratory depression and seizure. (5) Diabetes type 2, uncontrolled Controlled. Patient may need less insulin as he is having worsening CKD. History of uncontrolled diabetes. Hemoglobin A1c 13%. Continue Lantus 10 units daily. Continue diabetic diet, basal and correctional insulin. Continue hypoglycemia protocol and Accu-Cheks. Adjust insulin dosage as needed. Diabetic education. (6) Hyperkalemia Resolved. (7) Nausea & vomiting Resolved. No vomiting. Continue antiemetics. (8) Hyperlipidemia ASCVD score of 40%. TSH WNL. Diet and lifestyle modification recommended. We will start on high intensity statin. Monitor LFTs. Outpatient PCP follow-up. (9) Vertigo Improving with meclizine. Denies any hearing loss, denies any recent ear infection or uppercase impaction, has any head trauma. Negative James-Hallpike maneuver. Negative nystagmus. Continue fall precautions. Continue meclizine. (10) Anemia Likely combination of anemia of chronic disease and iron deficiency anemia. Patient has history of chronic NSAID intake for osteoarthritis and migraine headaches. Denies any personal or family history of gastrointestinal malignancy. Never had upper or lower GI endoscopy. Iron 20.1, TIBC 258, saturation 8%, transferrin 180, ferritin 78.6. Guaiac positive. Surgery consulted for possible upper and lower GI endoscopy but they prefer for patient to be followed up as outpatient and said he was not acutely bleeding. (11) Leukocytosis SPO2 WNL. Afebrile. CXR on admission WNL. Worsening leukocytosis. Has been on empiric IV antibiotics since admission. Blood cultures negative so far. Physical Exam Vital Signs: Temp Pulse Resp BP Pulse Ox 98.8 F 92 18 110/63 94 01/10/20 11:25 01/10/20 11:25 01/10/20 11:25 01/10/20 11:25 01/10/20 11:25 Results Laboratory Results: WBC 21.6 10^3/uL (4.0-10.5) H 01/10/20 11:38 RBC 3.59 10^6/uL (4.35-5.55) L 01/10/20 11:38 Hgb 10.7 g/dL (13.5-17.0) L 01/10/20 11:38 Hct 32.1 % (37.9-51.0) L 01/10/20 11:38 MCV 90 fl (80-97) 01/10/20 11:38 MCH 29.7 pg (27.0-33.4) 01/10/20 11:38 MCHC 33.2 g/dL (32.0-36.0) 01/10/20 11:38 RDW 14.7 % (11.5-14.0) H 01/10/20 11:38 Plt Count 231 10^3/uL (150-450) 01/10/20 11:38 Lymph % (Auto) Not Reportable 01/10/20 11:38 [place] % (Auto) Not Reportable 01/10/20 11:38 Eos % (Auto) Not Reportable 01/10/20 11:38 Baso % (Auto) Not Reportable 01/10/20 11:38 Reticulocyte # 0.042 10^6/uL (0.028-0.122) 01/09/20 06:45 Absolute Neuts (auto) Not Reportable 01/10/20 11:38 Absolute Lymphs (auto) Not Reportable 01/10/20 11:38 Absolute Monos (auto) Not Reportable 01/10/20 11:38 Absolute Eos (auto) Not Reportable 01/10/20 11:38 Absolute Basos (auto) Not Reportable 01/10/20 11:38 Total Counted 100 01/10/20 11:38 Seg Neutrophils % Not Reportable 01/10/20 11:38 Seg Neuts % (Manual) 88 % (42-78) H 01/10/20 11:38 Lymphocytes % (Manual) 8 % (13-45) L 01/10/20 11:38 Monocytes % (Manual) 3 % (3-13) 01/10/20 11:38 Eosinophils % (Manual) 1 % (0-6) 01/10/20 11:38 Basophils % (Manual) 0 % (0-2) 01/10/20 11:38 Abs Neuts (Manual) 19.0 10^3/uL (1.7-8.2) H 01/10/20 11:38 Abs Lymphs (Manual) 1.7 10^3/uL (0.5-4.7) 01/10/20 11:38 Abs Monocytes (Manual) 0.6 10^3/uL (0.1-1.4) 01/10/20 11:38 Absolute Eos (Manual) 0.2 10^3/uL (0.0-0.6) 01/10/20 11:38 Abs Basophils (Manual) 0.0 10^3/uL (0.0-0.2) 01/10/20 11:38 Toxic Vacuolation PRESENT 01/10/20 11:38 Clumped Platelets PRESENT 01/10/20 11:38 Platelet Comment ADEQUATE 01/10/20 11:38 Poikilocytosis SLIGHT 01/10/20 11:38 Anisocytosis SLIGHT 01/10/20 11:38 Tear Drop Cells SLIGHT 01/10/20 11:38 ESR Cancelled 01/10/20 11:38 Retic Count (auto) 1.19 % (0.66-2.85) 01/09/20 06:45 Sodium 140.5 mmol/L (137-145) 01/10/20 06:30 Potassium 4.7 mmol/L (3.6-5.0) 01/10/20 06:30 Chloride 109 mmol/L (98-107) H 01/10/20 06:30 Carbon Dioxide 24 mmol/L (22-30) 01/10/20 06:30 Anion Gap 8 (5-19) 01/10/20 06:30 BUN 54 mg/dL (7-20) H 01/10/20 06:30 Creatinine 4.18 mg/dL (0.52-1.25) H 01/10/20 06:30 Est GFR ( Amer) 18 (>60) L 01/10/20 06:30 Est GFR (Non-Af Amer) Cancelled 01/09/20 06:45 Est GFR (MDRD) Non-Af 15 (>60) L 01/10/20 06:30 Glucose 112 mg/dL (75-110) H 01/10/20 06:30 POC Glucose 168 mg/dL (70-110) H 01/10/20 11:26 Hemoglobin A1c % 13.2 % (4.7-6.0) H 01/06/20 08:00 Calcium 9.0 mg/dL (8.4-10.2) 01/10/20 06:30 Phosphorus 4.2 mg/dL (2.5-4.5) 01/09/20 06:45 Magnesium 1.6 mg/dL (1.6-2.3) 01/09/20 06:45 Iron 20.1 ug/dL (49-181) L 01/09/20 06:45 TIBC 258 ug/dL (250-450) 01/09/20 06:45 % Saturation 8 % 01/09/20 06:45 Transferrin 180.99 mg/dL (206.00-381.00) L 01/09/20 06:45 Ferritin 78.60 ng/mL (17.9-464.0) 01/09/20 06:45 Total Bilirubin 0.3 mg/dL (0.2-1.3) 01/09/20 06:45 Direct Bilirubin 0.0 mg/dL (0.0-0.4) 01/09/20 06:45 Neonat Total Bilirubin Not Reportable 01/09/20 06:45 Neonat Direct Bilirubin Not Reportable 01/09/20 06:45 Neonat Indirect Bili Not Reportable 01/09/20 06:45 AST 14 U/L (17-59) L 01/09/20 06:45 ALT 6 U/L (<50) 01/09/20 06:45 Alkaline Phosphatase 62 U/L (38-126) 01/09/20 06:45 Creatine Kinase 39 U/L (55-170) L 01/05/20 19:28 Troponin I < 0.012 ng/mL 01/06/20 09:06 C-Reactive Protein 164.1 mg/L (<10.0) H 01/10/20 06:30 NT-Pro-B Natriuret Pep 2920 pg/mL (<125) H 01/06/20 09:06 Total Protein 5.7 g/dL (6.3-8.2) L 01/09/20 06:45 Albumin 3.0 g/dL (3.5-5.0) L 01/09/20 06:45 Triglycerides 198 mg/dL (<150) H 01/06/20 09:06 Cholesterol 221.27 mg/dL (0-200) H 01/06/20 09:06 LDL Cholesterol Direct 149 mg/dL (<100) H 01/06/20 09:06 VLDL Cholesterol 39.6 mg/dL (10-31) H 01/06/20 09:06 VLDL Cholesterol, Calc Cancelled 01/06/20 08:00 HDL Cholesterol 38 mg/dL (>40) L 01/06/20 09:06 Lipase 26.7 U/L (23-300) 01/05/20 15:30 EGFR Cancelled 01/09/20 06:45 Vitamin B12 369.0 pg/mL (239-931) 01/09/20 06:45 Methylmalonic Acid 539 nmol/L (0-378) H 01/09/20 06:45 MMA Disclaimer Comment (.) 01/09/20 06:45 Folate 6.24 ng/mL (>2.76) 01/09/20 06:45 Homocysteine 11.29 umol/L (6.6-14.8) 01/09/20 06:45 TSH 1.19 uIU/mL (0.47-4.68) 01/06/20 09:06 PTH Intact 90.7 pg/mL (10.0-65.0) H 01/09/20 06:45 Urine Color YELLOW 01/06/20 17:05 Urine Appearance CLEAR 01/06/20 17:05 Urine pH 5.0 (5.0-9.0) 01/06/20 17:05 Ur Specific [place] 1.010 01/06/20 17:05 Urine Protein 30 mg/dL (NEGATIVE) H 01/06/20 17:05 Urine Glucose (UA) >=500 mg/dL (NEGATIVE) H 01/06/20 17:05 Urine Ketones NEGATIVE mg/dL (NEGATIVE) 01/06/20 17:05 Urine Blood NEGATIVE (NEGATIVE) 01/06/20 17:05 Urine Nitrite NEGATIVE (NEGATIVE) 01/06/20 17:05 Urine Bilirubin NEGATIVE (NEGATIVE) 01/06/20 17:05 Urine Urobilinogen NEGATIVE mg/dL (<2.0) 01/06/20 17:05 Ur Leukocyte Esterase SMALL (NEGATIVE) H 01/06/20 17:05 Urine WBC (Auto) 19 /HPF 01/06/20 17:05 Urine RBC (Auto) 1 /HPF 01/06/20 17:05 U Hyaline Cast (Auto) 1 /LPF 01/06/20 17:05 Urine Bacteria (Auto) 3+ /HPF 01/06/20 17:05 Amorphous Sediment Auto TRACE /HPF 01/06/20 17:05 Urine Mucus (Auto) RARE /LPF 01/06/20 17:05 Urine Creatinine 51.8 mg/dL (22-328) 01/06/20 17:05 Urine Sodium 99 mmol/L (30-90) H 01/06/20 17:05 Urine Total Protein 57.0 mg/dL (<12) H 01/06/20 17:05 Urine Ascorbic Acid NEGATIVE (NEGATIVE) 01/06/20 17:05 Stool Occult Blood POSITIVE (NEGATIVE) 01/09/20 19:30 Urine Opiates Screen UNCONFIRMED POSITIVE 01/06/20 17:05 Urine Methadone Screen NEGATIVE 01/06/20 17:05 Ur Barbiturates Screen NEGATIVE 01/06/20 17:05 Ur Phencyclidine Scrn NEGATIVE 01/06/20 17:05 Ur Amphetamines Screen NEGATIVE 01/06/20 17:05 U Benzodiazepines Scrn NEGATIVE 01/06/20 17:05 Urine Cocaine Screen NEGATIVE 01/06/20 17:05 U Marijuana (THC) Screen NEGATIVE 01/06/20 17:05 01/05/20 01/06/20 01/06/20 19:28 01:22 08:00 Troponin I < 0.012 < 0.012 Cancelled NT-Pro-B Natriuret Pep Cancelled 01/06/20 09:06 Troponin I < 0.012 NT-Pro-B Natriuret Pep 2920 H Impressions: Chest X-Ray 01/05/20 00:00 IMPRESSION: No evidence of acute cardiopulmonary abnormality. KUB X-Ray 01/05/20 00:00 IMPRESSION: Nonspecific, nonobstructed bowel gas pattern. Renal Ultrasound 01/05/20 00:00 IMPRESSION: Unremarkable renal sonogram. No evidence of hydronephrosis to suggest obstruction as the cause of the patient's renal dysfunction. Stroke Is this a Stroke Patient?: No Acute Heart Failure - Is this a Heart Failure Patient?: No
== END 2020-01-10 16:20 | disposition left against medical advice (07) | DRG 682 ==
LOC: ER 12:05 → EH 18:32 → 5 22:20
PROVIDERS: ADMIT Internal Medicine; ATTEND Internal Medicine
PROC: B24BZZ4 Ultrasonography of Heart with Aorta, Transesophageal (ICD-10-PCS; principal; 2020-01-05)
DX: N17.9 Acute kidney failure, unspecified (principal); I50.33 Acute on chronic diastolic (congestive) heart failure; I16.1 Hypertensive emergency; E11.22 Type 2 diabetes mellitus with diabetic chronic kidney disease; F32.9 Major depressive disorder, single episode, unspecified; I12.9 Hypertensive chronic kidney disease with stage 1 through stage 4 chronic kidney disease, or unspecified chronic kidney disease; Z66 Do not resuscitate; E11.610 Type 2 diabetes mellitus with diabetic neuropathic arthropathy; E78.5 Hyperlipidemia, unspecified; E11.65 Type 2 diabetes mellitus with hyperglycemia; E87.5 Hyperkalemia; E66.9 Obesity, unspecified; R42 Dizziness and giddiness; D50.9 Iron deficiency anemia, unspecified; N18.4 Chronic kidney disease, stage 4 (severe); Z68.29 Body mass index [BMI] 29.0-29.9, adult; D63.1 Anemia in chronic kidney disease; Z79.899 Other long term (current) drug therapy; Z88.2 Allergy status to sulfonamides; Z88.8 Allergy status to other drugs, medicaments and biological substances; Z88.0 Allergy status to penicillin; Z91.013 Allergy to seafood; Z83.3 Family history of diabetes mellitus; Z79.1 Long term (current) use of non-steroidal anti-inflammatories (NSAID)
CPT/HCPCS: 36415; 71046; 74018; 76775; 80048; 80053; 80061; 80307; 81001; 82272; 82550; 82570; 82607; 82728; 82746; 82962; 83036; 83090; 83540; 83550; 83690; 83735; 83880; 83921; 83970; 84100; 84132; 84156; 84300; 84443; 84466; 84484; 85025; 85027; 85045; 86140; 87040; 87070; 93005; 93010; 93306; 96361; 96374; 99291; J0360; J0610; J1650; J1815; J2270; J2405; J3490; J7030

== ENCOUNTER 2020-01-14 19:12 | Inpatient (IN) | payer OTHER, MEDICARE ==
--- NOTE | 2020-01-14 21:25 | RADIOLOGY REPORT (SQ) ---
XR CHEST 1 VIEW CLINICAL STATEMENT: dyspnea COMPARISON: 01/05/2020 FINDINGS: Heart is moderately enlarged. Interval development of right lung diffuse dense consolidation consistent with pneumonia. Patchy left lower lobe airspace disease consistent with pneumonia. No pneumothorax. IMPRESSION: Right lung diffuse pneumonia has developed compared to the prior study along with mild patchy left lower lobe pneumonia.
[2020-01-14 21:58] LABS: VENOUS BLOOD BASE EXCESS 0.9 mmol/L; VENOUS BLOOD HCO3 27.3 mmol/L (20-32); VENOUS BLOOD PCO2 51.1 mmHg (35-63); VENOUS BLOOD PH 7.35 (7.30-7.42)
[2020-01-14 22:03] LABS: ABSOLUTE BASOPHILS # (AUTO) 0.1 10^3/uL (0.0-0.2); ABSOLUTE EOSINOPHILS # (AUTO) 0.2 10^3/uL (0.0-0.6); ABSOLUTE LYMPHOCYTES (AUTO) 1.4 10^3/uL (0.5-4.7); ABSOLUTE MONOCYTES (AUTO) 1.1 10^3/uL (0.1-1.4); ABSOLUTE NEUT (AUTO) 15.7 10^3/uL (1.7-8.2); BASOPHILS % (AUTO) 0.6 % (0-2); HEMATOCRIT 31.8 % (37.9-51.0); HEMOGLOBIN 10.3 g/dL (13.5-17.0); LYMPHOCYTES % (AUTO) 7.5 % (13-45); MEAN CORPUSCULAR HEMOGLOBIN 29.3 pg (27.0-33.4); MEAN CORPUSCULAR HGB CONC 32.5 g/dL (32.0-36.0); MEAN CORPUSCULAR VOLUME 90 fl (80-97); MONOCYTES % (AUTO) 5.9 % (3-13); PLATELET COUNT 446 10^3/uL (150-450); RED BLOOD COUNT 3.53 10^6/uL (4.35-5.55); RED CELL DISTRIBUTION WIDTH 14.9 % (11.5-14.0); TOTAL CELLS COUNTED % (AUTO) 100 %; WHITE BLOOD COUNT 18.5 10^3/uL (4.0-10.5)
[2020-01-14 22:16] LABS: ALBUMIN 3.4 g/dL (3.5-5.0); ALKALINE PHOSPHATASE 65 U/L (38-126); ANION GAP 7 (5-19); ASPARTATE AMINO TRANSFERASE 19 U/L (17-59); BILIRUBIN,DIRECT 0.3 mg/dL (0.0-0.4); BILIRUBIN,TOTAL 0.6 mg/dL (0.2-1.3); BLOOD UREA NITROGEN 82 mg/dL (7-20); CALCIUM 10.4 mg/dL (8.4-10.2); CARBON DIOXIDE 28 mmol/L (22-30); CHLORIDE 106 mmol/L (98-107); GLUCOSE 301 mg/dL (75-110); POTASSIUM 4.5 mmol/L (3.6-5.0); TOTAL PROTEIN 7.4 g/dL (6.3-8.2)
[2020-01-14 22:37] LABS: TROPONIN I 0.452 ng/mL
[2020-01-14] MEDS ORDERED: NORMAL SALINE IV ONE (22:47)
[2020-01-14] MEDS ORDERED: CEFEPIME 2 GM/D5W RTU 2 GM/50 ML RTUPB IV ONE (23:00)
--- NOTE | 2020-01-15 00:23 | EKG REPORT ---
SEVERITY:- ABNORMAL ECG - SINUS RHYTHM CONSIDER ANTEROSEPTAL INFARCT BORDERLINE T WAVE ABNORMALITIES : Confirmed by: Katy Olivera 15-Jan-2020 00:22:28
[2020-01-15] MEDS ORDERED: DEXTROSE 50%-WATER 25 GM/50 ML DISP.SYRIN IV PRN ×2 (02:43)
[2020-01-15] MEDS ORDERED: DEXTROSE 40% GEL 15 GM TUBE PO PRN ×2 (02:43)
[2020-01-15] MEDS ORDERED: GUAIFENESIN SYRP 200 MG/10 ML UDC PO PRN (02:43)
[2020-01-15] MEDS ORDERED: GLUCAGON,HUMAN RECOMB 1 MG INJ IM PRN (02:43)
[2020-01-15] MEDS ORDERED: MECLIZINE HCL 12.5 MG TABLET PO ONE (02:54)
[2020-01-15] MEDS ORDERED: OXYCODONE HCL IR 5 MG TABLET PO ONE (02:54)
[2020-01-15] MEDS ORDERED: GABAPENTIN 100 MG CAPSULE PO ONE (02:55)
[2020-01-15] MEDS ORDERED: LEVALBUTEROL HCL NEB 0.63 MG/3 ML AMPUL NEB PRN (03:01)
[2020-01-15] MEDS ORDERED: LORAZEPAM INJ 2 MG/1 ML VIAL IV PRN (03:01)
[2020-01-15] MEDS ORDERED: MAGNESIUM HYDROXIDE SUSP 30 ML UDCUP PO PRN (03:01)
[2020-01-15] MEDS ORDERED: MELATONIN 5 MG TABLET PO PRN (03:01)
[2020-01-15] MEDS ORDERED: ACETAMINOPHEN 325 MG TABLET PO PRN (03:01)
[2020-01-15] MEDS ORDERED: MAG HYDROX/AL HYDROX/SIMETH SUSP 30 ML UDCUP PO PRN (03:01)
[2020-01-15] MEDS ORDERED: MORPHINE SULFATE 10 MG/ML INJ IV PRN ×2 (03:05→10:18)
[2020-01-15] MEDS ORDERED: HEPARIN SOD (PORCINE) 1,000 UNIT/ML 10 ML VIAL IV ONE (03:16)
[2020-01-15] MEDS ORDERED: MECLIZINE HCL 12.5 MG TABLET ONE (03:25)
[2020-01-15] MEDS ORDERED: AZITHROMYCIN INJ 500 MG VIAL IV ONE (03:34)
--- NOTE | 2020-01-15 03:39 | ER Document Report ---
Entered by HELIO HERRERA SCRIBE 01/14/202025 Acting as scribe for:ARIANNA MONTEJO IV, MD ED General - General Chief Complaint: Nausea Stated Complaint: NAUSEA,VOMITING,DIZZINESS Time Seen by Provider: 01/14/20 20:00 Primary Care Provider: KWAN ELLSWORTH FNP-C [Primary Care Provider] - Follow up as needed Mode of Arrival: Wheelchair Information source: Patient Notes: This 59 year old male patient with a history of type 2 diabetes, CKD stage IV, HTN, HLD, and CHF presents to the ED today with complaints of dyspnea since yesterday. He also reports dehydration, dizziness, lightheadedness, nausea, and vomiting. Patient was admitted for ZURDO, N/V/D, and hyperkalemia on 01/05/2020 and was discharged on 01/11/2020. Patient was reportedly 88% on 5L O2 NC in Pod 5, so he was placed on a NRB mask and moved to bed 6. Denies history of PE. Denies tobacco use. TRAVEL OUTSIDE OF THE [place] IN LAST 30 DAYS: No - Related Data Allergies/Adverse Reactions: iodine Allergy (Verified 08/28/19 19:00) Penicillins Allergy (Verified 08/28/19 19:00) shellfish derived Allergy (Verified 08/28/19 19:00) Sulfa (Sulfonamide Antibiotics) Allergy (Verified 08/28/19 19:00) shellfish Allergy (Uncoded 08/28/19 19:00) Past Medical History - General Information source: Patient, [facility] Records - Social History Smoking Status: Never Smoker Cigarette use (# per day): No Chew tobacco use (# tins/day): No Smoking Education Provided: No Family History: Reviewed & Not Pertinent Patient has suicidal ideation: No Patient has homicidal ideation: No - Past Medical History Cardiac Medical History: Reports: Hx Congestive Heart Failure, Hx Hypercholesterolemia, Hx Hypertension Endocrine Medical History: Reports: Hx Diabetes Mellitus Type 2 Renal/ Medical History: Reports: Other - Hx Chronic Kidney Disease stage IV Musculoskeletal Medical History: Reports Hx Arthritis Psychiatric Medical History: Reports: Hx Depression Past Surgical History: Reports: Hx Orthopedic Surgery Review of Systems - Review of Systems Constitutional: No symptoms reported EENT: No symptoms reported Cardiovascular: See HPI, Dizziness, Lightheaded Respiratory: No symptoms reported Gastrointestinal: See HPI, Nausea, Vomiting Genitourinary: No symptoms reported Male Genitourinary: No symptoms reported Musculoskeletal: No symptoms reported Skin: No symptoms reported Hematologic/Lymphatic: No symptoms reported Neurological/Psychological: No symptoms reported -: Yes All other systems reviewed and negative Physical Exam - Vital signs Vitals: Temp BP Pulse Ox 98.9 F 141/92 H 92 01/14/20 19:59 01/14/20 19:59 01/14/20 19:59 - General General appearance: Alert In distress: None - HEENT Head: Normocephalic, Atraumatic Eyes: Normal Pupils: PERRL - Respiratory Respiratory status: Other - NRB mask Chest status: Nontender Breath sounds: Other - Crackles in right posterior base Chest palpation: Normal - Cardiovascular Rhythm: Regular Heart sounds: Normal auscultation Murmur: No Friction rub: No Gallop: None auscultated - Abdominal Inspection: Normal Distension: No distension Bowel sounds: Normal Tenderness: Nontender - Abdomen soft Organomegaly: No organomegaly - Back Back: Normal, Nontender - Extremities General upper extremity: Normal inspection General lower extremity: Normal inspection - Neurological Neuro grossly intact: Yes Orientation: AAOx4 [place] Coma Scale Eye Opening: Spontaneous [place] Coma Scale Verbal: Oriented [place] Coma Scale Motor: Obeys Commands [place] Coma Scale Total: 15 - Psychological Associated symptoms: Normal affect, Normal mood - Skin Skin Temperature: Warm Skin Moisture: Dry Skin Color: Normal Course - Vital Signs Vital signs: Temp Pulse Resp BP Pulse Ox 98.1 F 19 137/94 H 100 01/14/20 20:39 01/14/20 23:01 01/14/20 23:01 01/14/20 23:01 - Laboratory Result Diagrams: 01/14/20 20:12 01/14/20 20:12 Laboratory results interpreted by me: 01/14/20 01/14/20 01/14/20 20:12 20:12 20:12 WBC 18.5 H RBC 3.53 L Hgb 10.3 L Hct 31.8 L RDW 14.9 H Lymph % (Auto) 7.5 L Absolute Neuts (auto) 15.7 H Seg Neutrophils % 85.0 H BUN 82 H Creatinine 4.14 H Est GFR ( Amer) 18 L Est GFR (MDRD) Non-Af 15 L Glucose 301 H Calcium 10.4 H NT-Pro-B Natriuret Pep 23153 H Albumin 3.4 L - Diagnostic Test Radiology reviewed: Reports reviewed - EKG Interpretation by Me Additional EKG results interpreted by me: 01/15/20 01:10 EKG obtained on 01/14/2020 at 2025 hrs. was interpreted by this MD. Findings: Normal sinus rhythm heart rate 94, normal axis, P waves preceding QRS complexes, QRS complexes are narrow, there are no obvious patterns of ST segment elevation or depression present to suggest acute myocardial ischemia or infarction. Impression: Normal sinus rhythm with nonspecific ST segments. 01/15/20 03:43 EKG obtained on 01/15/2020 at 0310 hrs. was interpreted by this MD. Grossly morphology appears the same as prior EKG. There are no obvious patterns of ST segment elevation or depression present to suggest acute myocardial ischemia or infarction. Normal sinus rhythm, rate 98, normal axis, P waves preceding QRS complexes, QRS complexes appear narrow. Impression normal sinus rhythm with nonspecific ST segments. - Consults маиря read np, mail deliverer Time consulted: 23:06 - [place] read evaluated the pt and stated pt is appropriate for IMCU Reason for consultation: 01/15/20 01:12 pneumonia, acute kidney injury, oxygen dependent, borderline hypotensive dr. trotter, hospitalist Time consulted: 01:14 - dr trotter stated pt is on his list but currently no imcu beds available Reason for consultation: 01/15/20 01:14 pneumonia, acute kidney injury, oxygen dependent, borderline hypotensive gil nino, warehouse receiving supervisor Time consulted: 01:12 - gil nino said he would work on bed coordination Reason for consultation: 01/15/20 01:15 bed placement Critical Care Note - Critical Care Note Total time excluding time spent on procedures (mins): 120 - hypoxia, zurdo, pneumonia Discharge - Discharge Clinical Impression: ZURDO (acute kidney injury), Hypoxia, Elevated troponin, Elevated brain natriuretic peptide (BNP) level Pneumonia Qualifiers: Pneumonia type: due to unspecified organism Laterality: right Lung location: unspecified part of lung Qualified Code(s): J18.9 - Pneumonia, unspecified organism Condition: Serious Disposition: ADMITTED INPATIENT Admitting Provider: Jeannie (Hospitalist) Unit Admitted: IMCU Referrals: KWAN ELLSWORTH, SUTURE GAUGER-C [Primary Care Provider] - Follow up as needed I personally performed the services described in the documentation, reviewed and edited the documentation which was dictated to the scribe in my presence, and it accurately records my words and actions.
[2020-01-15] MEDS ORDERED: AZITHROMYCIN 500 MG in DEXTROSE 5%-WATER 250 ML IV SCH (04:00)
[2020-01-15 04:17] LABS: INTERNATIONAL RATION (INR) 1.14; PROTHROMBIN TIME 14.7 SEC (11.4-15.4)
--- NOTE | 2020-01-15 06:06 | PDOC H&P ---
History of Present Illness Admission Date/PCP: 01/15/2020 02:01 ALFONSO ELENA-Vero Patient complains of: Nausea and vomiting History of Present Illness: FREDDIE LAZO JR is a 59 year old male who presented to the emergency room with a 2-day history of nausea and vomiting. He admits severe persistent nausea with numerous episodes of vomiting accompanied by decreased oral intake and associated with fatigue, malaise, dizziness (vertigo), lightheadedness and dyspnea. He denies other associated or accompanying signs and symptoms. He feels that he is dehydrated due to his poor intake. He admits prior similar symptoms including a recent admission to this hospital for nausea vomiting and diarrhea. He has not identified any aggravating or ameliorating factors for his nausea and vomiting. In the emergency room he was found to have an elevated troponin at 0.452, an elevated BNP at 28,800, a leukocytosis, a right lower lobe pneumonia by chest x-ray, acute respiratory failure with hypoxia and moderate hypotension. He was evaluated by the supervisor frame assembly service and determined to be appropriate for admission to the medical service but not to be appropriate for ICU admission. Patient was therefore admitted to the hospitalist service for further evaluation and treatment. Past Medical History Cardiac Medical History: Denies: Coronary Artery Disease, Hyperlipidema, Hypertension Pulmonary Medical History: Denies: Asthma, Chronic Obstructive Pulmonary Disease (COPD), Respiratory Failure EENT Medical History: Denies: Cataracts, Ears - Hearing aids Neurological Medical History: Denies: Hemorrhagic CVA, Ischemic CVA, Seizures Endocrine Medical History: Reports: Diabetes Mellitus Type 2 Renal/ Medical History: Reports: Chronic Kidney Disease, End Stage Renal Disease - Recently diagnosed with stage IV CKD Denies: Nephrolithiasis Malignancy Medical History: Reports: None GI Medical History: Denies: Cirrhosis, Hepatitis, Peptic Ulcer Disease Musculoskeltal Medical History: Reports: Arthritis Denies: Gout Skin Medical History: Denies: Eczema, Psoriasis Psychiatric Medical History: Reports: Depression Denies: Alcohol Dependency, Substance Abuse, Tobacco Dependency Traumatic Medical History: Reports: None Hematology: Reports: Anemia - Recently diagnosed Denies: Bleeding Tendencies Infectious Medical History: Reports: None Past Surgical History Past Surgical History: Reports: Orthopedic Surgery - Multiple surgeries Social History Information Source: Patient Lives with: Alone Smoking Status: Never Smoker Electronic Cigarette use?: No Frequency of Alcohol Use: None Hx Recreational Drug Use: No Drugs: None Hx Prescription Drug Abuse: No - Advance Directive Resuscitation Status: Full Code Surrogate healthcare decision maker:: Refuses to provide at this time Family History Family History: DM Parental Family History Reviewed: Yes Children Family History Reviewed: No Sibling(s) Family History Reviewed.: Yes Medication/Allergy Home Medications: Cyclobenzaprine HCl [Flexeril 10 mg Tablet] 10 mg PO TIDP PRN 01/06/20 Gabapentin [Neurontin] 800 mg PO Q8 01/06/20 Meloxicam [Mobic 7.5 mg Tablet] 7.5 mg PO Q12HP PRN 01/06/20 Oxycodone HCl [Oxy-Ir 5 mg Tablet] 15 mg PO QID 01/06/20 Meclizine HCl [Antivert 12.5 mg Tablet] 12.5 mg PO Q4 10 Days #60 tablet 01/10/20 Allergies/Adverse Reactions: iodine Allergy (Verified 08/28/19 19:00) Penicillins Allergy (Verified 08/28/19 19:00) shellfish derived Allergy (Verified 08/28/19 19:00) Sulfa (Sulfonamide Antibiotics) Allergy (Verified 08/28/19 19:00) shellfish Allergy (Uncoded 08/28/19 19:00) Review of Systems Constitutional: PRESENT: as per HPI, anorexia, fatigue. ABSENT: chills, fever(s) Eyes: ABSENT: visual disturbances, other - Eye pain Ears: ABSENT: hearing changes, other - Ear pain Nose, Mouth, and Throat: ABSENT: headache(s), sore throat Cardiovascular: ABSENT: chest pain, palpitations Respiratory: PRESENT: as per HPI, dyspnea. ABSENT: cough Gastrointestinal: PRESENT: as per HPI, nausea, vomiting. ABSENT: abdominal pain, constipation, diarrhea Genitourinary: ABSENT: dysuria, hematuria Musculoskeletal: ABSENT: back pain, joint swelling Integumentary: ABSENT: pruritus, rash Neurological: PRESENT: dizziness - Lightheadedness and vertigo. ABSENT: confusion, convulsions, focal weakness, memory loss, syncope Psychiatric: ABSENT: anxiety, depression Endocrine: ABSENT: cold intolerance, heat intolerance Hematologic/Lymphatic: ABSENT: easy bleeding, easy bruising Physical Exam Vital Signs: Temp Pulse Resp BP Pulse Ox 98.1 F 19 137/94 H 100 01/14/20 20:39 01/14/20 23:01 01/14/20 23:01 01/14/20 23:01 Intake & Output 01/13/20 01/14/20 01/15/20 23:59 23:59 23:59 Intake Total 50 Balance 50 Weight 78.4 kg General appearance: PRESENT: no acute distress, cooperative, other - On supple mental oxygen via nasal cannula at the time of my evaluation Head exam: PRESENT: atraumatic, normocephalic Eye exam: PRESENT: conjunctiva pink. ABSENT: conjunctival injection, scleral icterus Ear exam: PRESENT: normal external ear exam. ABSENT: bleeding, drainage Mouth exam: PRESENT: dry mucosa, neck supple Neck exam: ABSENT: thyromegaly, tracheal deviation Respiratory exam: PRESENT: rales - Coarse rales in the right base, symmetrical, unlabored, other - On supplemental oxygen via nasal cannula Cardiovascular exam: PRESENT: RRR. ABSENT: clicks, gallop, rubs Pulses: PRESENT: normal radial pulses, normal dorsalis pedis pul Vascular exam: ABSENT: normal capillary refill - Capillary refill delayed at 2 to 3 seconds, pallor GI/Abdominal exam: PRESENT: normal bowel sounds, soft Rectal exam: PRESENT: deferred Extremities exam: ABSENT: joint swelling, pedal edema Musculoskeletal exam: ABSENT: deformity, dislocation Neurological exam: PRESENT: alert, oriented to person, oriented to place, oriented to time, oriented to situation, CN II-XII grossly intact. ABSENT: motor sensory deficit Psychiatric exam: PRESENT: appropriate affect, normal mood Skin exam: PRESENT: dry, intact, warm. ABSENT: jaundice, rash, urticaria Results Laboratory Results: 01/14/20 20:12 01/14/20 20:12 01/14/20 01/14/20 01/14/20 20:12 20:12 20:12 WBC 18.5 H RBC 3.53 L Hgb 10.3 L Hct 31.8 L MCV 90 MCH 29.3 MCHC 32.5 RDW 14.9 H Plt Count 446 Seg Neutrophils % 85.0 H VBG pH VBG pCO2 VBG HCO3 VBG Base Excess Sodium 140.5 Potassium 4.5 Chloride 106 Carbon Dioxide 28 Anion Gap 7 BUN 82 H Creatinine 4.14 H Est GFR ( Amer) 18 L Glucose 301 H Lactic Acid 1.7 Calcium 10.4 H Total Bilirubin 0.6 AST 19 Alkaline Phosphatase 65 Total Protein 7.4 Albumin 3.4 L 01/14/20 21:35 WBC RBC Hgb Hct MCV MCH MCHC RDW Plt Count Seg Neutrophils % VBG pH 7.35 VBG pCO2 51.1 VBG HCO3 27.3 VBG Base Excess 0.9 Sodium Potassium Chloride Carbon Dioxide Anion Gap BUN Creatinine Est GFR ( Amer) Glucose Lactic Acid Calcium Total Bilirubin AST Alkaline Phosphatase Total Protein Albumin 01/14/20 20:12 Troponin I 0.452 NT-Pro-B Natriuret Pep 05189 H Impressions: Chest X-Ray 01/14/20 20:37 IMPRESSION: Right lung diffuse pneumonia has developed compared to the prior study along with mild patchy left lower lobe pneumonia. Assessment and Plan - Diagnosis (1) Severe sepsis without septic shock Is this a current diagnosis for this admission?: Yes (2) HCAP (healthcare-associated pneumonia) Is this a current diagnosis for this admission?: Yes (3) Non-ST elevated myocardial infarction (non-STEMI) Is this a current diagnosis for this admission?: Yes (4) Nausea & vomiting Qualifiers: Vomiting type: unspecified Vomiting Intractability: intractable Qualified Code(s): R11.2 - Nausea with vomiting, unspecified Is this a current diagnosis for this admission?: Yes (5) Elevated white blood cell count Qualifiers: Leukocytosis type: unspecified Qualified Code(s): D72.829 - Elevated white blood cell count, unspecified Is this a current diagnosis for this admission?: Yes (6) Diabetes mellitus type 2 in nonobese Is this a current diagnosis for this admission?: Yes (7) Osteoarthritis Qualifiers: Osteoarthritis location: multiple joints Osteoarthritis type: unspecified Qualified Code(s): M15.9 - Polyosteoarthritis, unspecified Is this a current diagnosis for this admission?: Yes (8) Hyperlipidemia Qualifiers: Hyperlipidemia type: unspecified Qualified Code(s): E78.5 - Hyperlipidemia, unspecified Is this a current diagnosis for this admission?: Yes (9) CKD stage 4 due to type 2 diabetes mellitus Is this a current diagnosis for this admission?: Yes (10) Anemia Qualifiers: Anemia type: due to chronic kidney disease Chronic kidney disease stage: stage 4 (severe) Qualified Code(s): N18.4 - Chronic kidney disease, stage 4 (severe); D63.1 - Anemia in chronic kidney disease Is this a current diagnosis for this admission?: Yes - Plan Summary Summary: Patient is admitted to the [facility] where he will receive routine supportive and symptomatic cares. A cardiology consultation with Dr. Matta will be obtained. Patient will be treated with IV cefepime, and azithromycin and Zyvox. He will receive IV fluids utilizing lactated Ringer's solution at 167 mL/h for the first 12 hours or until reassessment of his hydration/intravascular volume volume status. He received morphine sulfate treatment 2 to 4 mg IV every 2 hours as needed for pain. He will receive Ativan 1 mg IV every 4 hours as needed for anxiety or restlessness. He will receive supplemental oxygen utilizing nasal cannula with use of noninvasive airway pressure devices such as BiPAP or CPAP as required to maintain an adequate oxygen saturation. Serial lactic acids will be obtained. Serial cardiac enzymes will be obtained. Patient will be treated with a cardiac, diabetic and renal/dialysis restricted diet. CBCs, metabolic profiles, magnesium levels and additional laboratory and/or radiographic evalua tions will be obtained as necessary. Before meals and at bedtime Accu-Cheks will be obtained with sliding scale insulin utilized to treat hyperglycemia and a hypoglycemic protocol in place. A pulmonary toilet utilizing Xopenex and Mucomyst will be employed. - Time Time Spent with patient: 15-24 minutes Medications reviewed and adjusted accordingly: Yes Anticipated discharge: Home with Homehealth - Inpatient Certification Based on my medical assessment, after consideration of the patient's comorbidities, presenting symptoms, or acuity I expect that the services needed warrant INPATIENT care.: Yes I certify that my determination is in accordance with my understanding of Medicare's requirements for reasonable and necessary INPATIENT services [42 CFR 412.3e].: Yes Medical Necessity: Significant Comorbidiites Make Outpatient Treatment Too Risky, Need Close Monitoring Due to Risk of Patient Decompensation, Need For IV Fluids, Need For Continuous Telemetry Monitoring, Need for Nebulizer Therapy and Monitoring of Response, Need for IV Antibiotics, Risk of Complication if Not Cared For in Hospital
[2020-01-15 07:39] LABS: AMORPHOUS SEDIMENT,URINE TRACE /HPF; APPEARANCE,URINE SLIGHTLY-CLOUDY; BILIRUBIN,URINE NEGATIVE (NEGATIVE); COLOR,URINE YELLOW; GLUCOSE, URINE >=500 mg/dL (NEGATIVE); KETONES,URINE NEGATIVE (NEGATIVE); PROTEIN,URINE 30 mg/dL (NEGATIVE); URINE SPECIFIC GRAVITY 1.013; UROBILINOGEN,URINE NEGATIVE mg/dL (<2.0)
--- NOTE | 2020-01-15 08:07 | EKG REPORT ---
SEVERITY:- ABNORMAL ECG - SINUS RHYTHM PROBABLE LEFT ATRIAL ABNORMALITY LOW VOLTAGE IN FRONTAL LEADS CONSIDER ANTEROSEPTAL INFARCT BORDERLINE T WAVE ABNORMALITIES : Confirmed by: Katy Olivera 15-Jan-2020 08:06:19
[2020-01-15 08:58] LABS: CREATINE KINASE MB 1.63 ng/mL (<4.55)
[2020-01-15] MEDS: ACETYLCYSTEINE 20% SOLN 800 MG/4 ML VIAL.NEB NEB SCH ×2 (08:58→21:04)
[2020-01-15 09:01] LABS: TROPONIN I 0.348 ng/mL
[2020-01-15] MEDS: INSULIN REG, HUMAN 100 UNIT/ML 3 ML VIAL (PYX) SUBCUT SCH ×4 (09:24→21:50)
[2020-01-15] MEDS ORDERED: PANTOPRAZOLE SODIUM 40 MG VIAL IV SCH (10:00)
[2020-01-15] MEDS ORDERED: CEFEPIME 2 GM/D5W RTU 2 GM/50 ML RTUPB IV SCH (10:00)
[2020-01-15] MEDS: HEPARIN SODIUM,PORCINE/D5W 25,000 UNIT/250 ML RTUINJ IV PRN (10:12)
[2020-01-15] MEDS ORDERED: NITROGLYCERIN 0.4 MG/TAB 25 TAB/BOTTLE SL PRN (10:17)
--- NOTE | 2020-01-15 10:47 | PDOC CONSULTATION ---
Consultation Consult Date: 01/15/20 Provider Consulted: LIZA DUMAS History of Present Illness Admission Date/PCP: 01/15/20 03:51 GOLD ELENA Patient complains of: Dyspnea History of Present Illness: FREDDIE LAZO JR is a 59 year old male 59-year-old male with the following active problems 1. Diabetes mellitus 2. Systemic hypertension 3. Narcotic dependence 4. Chronic kidney disease Patient reports worsening dyspnea. Radiological evaluation is suspicious for pneumonia is an acute finding-which now appears to be bilateral in comparison to a previous x-ray done on 01/05/2020. Patient reports cough with expectoration. He does not report febrile symptoms. There is no report of chest pain. No prior mention of coronary artery disease. Presently he is chest pain-free. Is been started on antibiotics. Past Medical History Cardiac Medical History: Reports: Congestive Heart Failure Denies: Coronary Artery Disease, Hyperlipidema, Hypertension Pulmonary Medical History: Denies: Asthma, Chronic Obstructive Pulmonary Disease (COPD), Respiratory Failure EENT Medical History: Denies: Cataracts, Ears - Hearing aids Neurological Medical History: Denies: Hemorrhagic CVA, Ischemic CVA, Seizures Endocrine Medical History: Reports: Diabetes Mellitus Type 2 Renal/ Medical History: Reports: Chronic Kidney Disease, End Stage Renal Disease - Recently diagnosed with stage IV CKD, Other - Hx Chronic Kidney Disease stage IV Denies: Nephrolithiasis Malignancy Medical History: Reports: None GI Medical History: Denies: Cirrhosis, Hepatitis, Peptic Ulcer Disease Musculoskeltal Medical History: Reports: Arthritis Denies: Gout Skin Medical History: Denies: Eczema, Psoriasis Psychiatric Medical History: Reports: Depression Denies: Alcohol Dependency, Substance Abuse, Tobacco Dependency Traumatic Medical History: Reports: None Hematology: Reports: Anemia - Recently diagnosed Denies: Bleeding Tendencies Infectious Medical History: Reports: None Past Surgical History Past Surgical History: Reports: Orthopedic Surgery - Multiple surgeries, Other - Multiple orthopedic surgeries Social History Lives with: Alone Smoking Status: Never Smoker Electronic Cigarette use?: No Frequency of Alcohol Use: None Hx Recreational Drug Use: No Drugs: None Hx Prescription Drug Abuse: No - Advance Directive Resuscitation Status: Full Code Family History Family History: DM Parental Family History Reviewed: No - No familial illnesses Children Family History Reviewed: NA Sibling(s) Family History Reviewed.: NA Medication/Allergy Home Medications: Cyclobenzaprine HCl [Flexeril 10 mg Tablet] 10 mg PO TIDP PRN 01/06/20 Gabapentin [Neurontin] 800 mg PO Q8 01/06/20 Meloxicam [Mobic 7.5 mg Tablet] 7.5 mg PO Q12HP PRN 01/06/20 Oxycodone HCl [Oxy-Ir 5 mg Tablet] 15 mg PO Q6 01/06/20 Allergies/Adverse Reactions: iodine Allergy (Verified 08/28/19 19:00) Penicillins Allergy (Verified 08/28/19 19:00) shellfish derived Allergy (Verified 08/28/19 19:00) Sulfa (Sulfonamide Antibiotics) Allergy (Verified 08/28/19 19:00) Review of Systems Eyes: PRESENT: as per HPI Nose, Mouth, and Throat: PRESENT: as per HPI Cardiovascular: PRESENT: as per HPI. ABSENT: chest pain, dyspnea on exertion, edema, orthropnea, palpitations, other Respiratory: PRESENT: cough, dyspnea, sputum Physical Exam Vital Signs: Temp Pulse Resp BP Pulse Ox 98.1 F 12 139/95 H 90 L 01/14/20 20:39 01/15/20 09:01 01/15/20 09:00 01/15/20 09:25 Intake & Output 01/14/20 01/15/20 01/16/20 06:59 06:59 06:59 Intake Total 300 Balance 300 Weight 78.4 kg General appearance: PRESENT: no acute distress, well-developed, well-nourished Head exam: PRESENT: atraumatic, normocephalic Eye exam: PRESENT: conjunctiva pink, EOMI Mouth exam: PRESENT: moist Respiratory exam: PRESENT: crackles, decreased breath sounds, rhonchi, symme trical Cardiovascular exam: PRESENT: RRR, +S1, +S2 Pulses: PRESENT: normal radial pulses GI/Abdominal exam: PRESENT: soft Rectal exam: PRESENT: deferred Neurological exam: PRESENT: alert, awake, oriented to person, oriented to place, oriented to time, oriented to situation Psychiatric exam: PRESENT: appropriate affect Skin exam: PRESENT: dry, intact, mottled Results Laboratory Results: 01/14/20 20:12 01/14/20 20:12 01/14/20 01/14/20 01/14/20 20:12 20:12 20:12 WBC 18.5 H RBC 3.53 L Hgb 10.3 L Hct 31.8 L MCV 90 MCH 29.3 MCHC 32.5 RDW 14.9 H Plt Count 446 Seg Neutrophils % 85.0 H VBG pH VBG pCO2 VBG HCO3 VBG Base Excess Sodium 140.5 Potassium 4.5 Chloride 106 Carbon Dioxide 28 Anion Gap 7 BUN 82 H Creatinine 4.14 H Est GFR ( Amer) 18 L Glucose 301 H Lactic Acid 1.7 Calcium 10.4 H Total Bilirubin 0.6 AST 19 Alkaline Phosphatase 65 Total Protein 7.4 Albumin 3.4 L Urine Color Urine Appearance Urine pH Ur Specific [place] Urine Protein Urine Glucose (UA) Urine Ketones Urine Blood Urine RBC (Auto) 01/14/20 01/15/20 01/15/20 21:35 03:53 04:30 WBC RBC Hgb Hct MCV MCH MCHC RDW Plt Count Seg Neutrophils % VBG pH 7.35 VBG pCO2 51.1 VBG HCO3 27.3 VBG Base Excess 0.9 Sodium Potassium Chloride Carbon Dioxide Anion Gap BUN Creatinine Est GFR ( Amer) Glucose Lactic Acid 1.2 Calcium Total Bilirubin AST Alkaline Phosphatase Total Protein Albumin Urine Color YELLOW Urine Appearance SLIGHTLY-CLOUDY Urine pH 5.0 Ur Specific [place] 1.013 Urine Protein 30 H Urine Glucose (UA) >=500 H Urine Ketones NEGATIVE Urine Blood NEGATIVE Urine RBC (Auto) 1 01/15/20 08:02 WBC RBC Hgb Hct MCV MCH MCHC RDW Plt Count Seg Neutrophils % VBG pH VBG pCO2 VBG HCO3 VBG Base Excess Sodium Potassium Chloride Carbon Dioxide Anion Gap BUN Creatinine Est GFR ( Amer) Glucose Lactic Acid 0.7 Calcium Total Bilirubin AST Alkaline Phosphatase Total Protein Albumin Urine Color Urine Appearance Urine pH Ur Specific [place] Urine Protein Urine Glucose (UA) Urine Ketones Urine Blood Urine RBC (Auto) 01/14/20 01/15/20 01/15/20 20:12 02:41 02:41 Creatine Kinase 49 L CK-MB (CK-2) Troponin I 0.452 0.462 NT-Pro-B Natriuret Pep 24328 H 01/15/20 01/15/20 01/15/20 02:41 08:02 08:02 Creatine Kinase 35 L CK-MB (CK-2) 2.25 1.63 Troponin I Cancelled 0.348 NT-Pro-B Natriuret Pep EKG Comments: Twelve-lead EKG 01/15/2020. Independently reviewed by me. Sinus rhythm, left atrial abnormality, low voltage in frontal leads, poor R wave progression, normal AV conduction, QTC is 460 ms Transthoracic echocardiogram 01/08/2020 Left ventricular ejection fraction is 55 to 60%. Trace MR, trace TR, moderate diastolic dysfunction. No pericardial effusion Chest x-ray 01/06/2020. Left-sided pneumonia on the lower lobe with right diffuse pneumonia compared to prior x-ray 01/05/2020 Laboratory data White blood cell count is 21.6 Creatinine 4.14 Troponin 0 0.452, 0.462, 0.348 Impressions: Chest X-Ray 01/14/20 20:37 IMPRESSION: Right lung diffuse pneumonia has developed compared to the prior study along with mild patchy left lower lobe pneumonia. Assessment & Plan - Diagnosis (1) ZURDO (acute kidney injury) Is this a current diagnosis for this admission?: Yes Plan: Acute kidney injury superimposed on chronic renal insufficiency Patient noted nephrology. In light of infection and ongoing sepsis renal function should be monitored closely. (2) Elevated troponin level Is this a current diagnosis for this admission?: Yes Plan: Unlikely to require acute coronary syndrome Elevated troponins without diagnostic EKG changes for myocardial ischemia in the setting of sepsis and healthcare associated pneumonia with poor clearance on account of chronic kidney disease He probably has underlying coronary artery disease Would recommend aspirin and beta-blockers as well as statin if feasible No indication for stratification at this time Treat underlying pneumonia and sepsis. (3) HCAP (healthcare-associated pneumonia) Is this a current diagnosis for this admission?: Yes Plan: Broad-spectrum antibiotics Pulmonary toilet (4) Non-ST elevated myocardial infarction (non-STEMI) Is this a current diagnosis for this admission?: Yes Plan: Likely related to pneumonia and poor clearance of troponins on account of chronic kidney disease Unlikely to be acute coronary syndrome Negative the last recommend aspirin and statin and beta-blockers if feasible Most recent echocardiogram shows preserved ejection fraction and no wall motion abnormalities. (5) Severe sepsis without septic shock Is this a current diagnosis for this admission?: Yes Plan: Supportive care Broad-spectrum antibiotics
[2020-01-15] MEDS: PANTOPRAZOLE SODIUM 40 MG VIAL IV SCH (11:22)
[2020-01-15] MEDS: OXYCODONE HCL IR 5 MG TABLET PO SCH ×2 (11:23→17:28)
[2020-01-15] MEDS: CEFEPIME 1 GM/D5W RTU 1 GM/50 ML RTUPB IV SCH (11:23)
[2020-01-15] MEDS: DOCUSATE SODIUM 100 MG CAPSULE PO SCH ×2 (11:23→17:29)
[2020-01-15] MEDS: LINEZOLID 600 MG/300 ML RTUPB IV SCH ×2 (11:28→21:47)
[2020-01-15] MEDS ORDERED: MECLIZINE HCL 12.5 MG TABLET PO PRN (11:32)
[2020-01-15 15:34] LABS: INTERNATIONAL RATION (INR) 1.13; PROTHROMBIN TIME 14.6 SEC (11.4-15.4)
[2020-01-15 15:59] LABS: CREATINE KINASE MB 1.66 ng/mL (<4.55)
[2020-01-15 16:03] LABS: TROPONIN I 0.303 ng/mL
[2020-01-15 16:29] LABS: C-REACTIVE PROTEIN 160.7 mg/L (<10.0)
[2020-01-15] MEDS ORDERED: GABAPENTIN 300 MG CAPSULE PO SCH (18:00)
[2020-01-15] MEDS: HEPARIN SOD (PORCINE) 1,000 UNIT/ML 10 ML VIAL IV PRN (18:43)
--- NOTE | 2020-01-15 20:10 | Progress Note ---
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 Overnight events, vital signs, H&P, laboratory results, imaging reports, and orders reviewed. Agree with plan of care as established by the previous provider. In addition: Given the patient's worsening chest imaging, with report of shortness of breath as his only symptom, and potential community exposure with recent hospital admission, will obtain COVID-19 rule out. He is placed on the PVY unit with contact and droplet precautions. D-dimer is mildly elevated at 0.75. CRP 160, LDH 183, ferritin 247. His supplemental laboratory evaluation is not overly impressive and can certainly be attributed to his sepsis/type II non-STEMI. Fortunately he is already been placed on azithromycin. His home medications have been reconciled; have resumed home dose oxycodone and renally dose gabapentin. Cardiology consultation obtained; have reviewed recommendations. Advises to begin ASA, statin, and beta-cecilia therapy Will start low-dose metoprolol. Start aspirin once heparin drip is discontinued (pending negative COVID testing). We will obtain lipid panel with a.m. lab work and dose statin therapy upon results.
[2020-01-15] MEDS: ACETAMINOPHEN 325 MG TABLET PO PRN (20:30)
[2020-01-15] MEDS: METOPROLOL TARTRATE 25 MG TABLET PO SCH (21:27)
[2020-01-16] MEDS: OXYCODONE HCL IR 5 MG TABLET PO SCH ×5 (00:12→23:20)
[2020-01-16] MEDS ORDERED: MECLIZINE HCL 12.5 MG TABLET ONE (00:29)
[2020-01-16] MEDS ORDERED: MECLIZINE HCL 12.5 MG TABLET PO SCH ×2 (02:00→06:00)
[2020-01-16] MEDS ORDERED: GABAPENTIN 300 MG CAPSULE PO SCH (03:00)
[2020-01-16] MEDS ORDERED: AZITHROMYCIN INJ 500 MG VIAL IV ONE (06:02)
[2020-01-16] MEDS: AZITHROMYCIN 500 MG in DEXTROSE 5%-WATER 250 ML IV SCH (06:24)
[2020-01-16] MEDS: HEPARIN SOD (PORCINE) 1,000 UNIT/ML 10 ML VIAL IV PRN ×2 (06:52→15:12)
[2020-01-16 08:11] LABS: ABSOLUTE BASOPHILS # (AUTO) 0.1 10^3/uL (0.0-0.2); ABSOLUTE EOSINOPHILS # (AUTO) 0.6 10^3/uL (0.0-0.6); ABSOLUTE LYMPHOCYTES (AUTO) 1.5 10^3/uL (0.5-4.7); ABSOLUTE MONOCYTES (AUTO) 1.2 10^3/uL (0.1-1.4); ABSOLUTE NEUT (AUTO) 13.1 10^3/uL (1.7-8.2); BASOPHILS % (AUTO) 0.8 % (0-2); EOSINOPHILS % (AUTO) 3.6 % (0-6); HEMATOCRIT 29.9 % (37.9-51.0); HEMOGLOBIN 9.9 g/dL (13.5-17.0); MEAN CORPUSCULAR HEMOGLOBIN 29.4 pg (27.0-33.4); MEAN CORPUSCULAR VOLUME 89 fl (80-97); MONOCYTES % (AUTO) 7.3 % (3-13); PLATELET COUNT 356 10^3/uL (150-450); RED BLOOD COUNT 3.36 10^6/uL (4.35-5.55); RED CELL DISTRIBUTION WIDTH 14.8 % (11.5-14.0); SEGMENTED NEUTROPHILS % (AUTO) 79.3 % (42-78); TOTAL CELLS COUNTED % (AUTO) 100 %; WHITE BLOOD COUNT 16.5 10^3/uL (4.0-10.5)
[2020-01-16 08:19] LABS: INTERNATIONAL RATION (INR) 1.14; PROTHROMBIN TIME 14.7 SEC (11.4-15.4)
[2020-01-16 08:42] LABS: ALBUMIN 2.9 g/dL (3.5-5.0); ALKALINE PHOSPHATASE 82 U/L (38-126); ANION GAP 7 (5-19); ASPARTATE AMINO TRANSFERASE 14 U/L (17-59); BILIRUBIN,TOTAL 0.4 mg/dL (0.2-1.3); BLOOD UREA NITROGEN 61 mg/dL (7-20); CALCIUM 8.7 mg/dL (8.4-10.2); CARBON DIOXIDE 24 mmol/L (22-30); CHLORIDE 107 mmol/L (98-107); GLUCOSE 269 mg/dL (75-110); POTASSIUM 4.1 mmol/L (3.6-5.0); TOTAL PROTEIN 6.3 g/dL (6.3-8.2)
[2020-01-16] MEDS ORDERED: PROMETHAZINE HCL INJ 25 MG/1 ML VIAL IV PRN (08:44)
[2020-01-16] MEDS: ONDANSETRON HCL INJ/PF 4 MG/2 ML SDV IV PRN ×2 (08:58→15:21)
[2020-01-16] MEDS: HEPARIN SODIUM,PORCINE/D5W 25,000 UNIT/250 ML RTUINJ IV PRN ×2 (09:07→15:16)
[2020-01-16] MEDS: INSULIN REG, HUMAN 100 UNIT/ML 3 ML VIAL (PYX) SUBCUT SCH ×4 (09:16→22:17)
[2020-01-16] MEDS: ACETYLCYSTEINE 20% SOLN 800 MG/4 ML VIAL.NEB NEB SCH ×2 (09:19→20:32)
[2020-01-16] MEDS ORDERED: GABAPENTIN 400 MG CAPSULE PO SCH (10:00)
[2020-01-16] MEDS: DOCUSATE SODIUM 100 MG CAPSULE PO SCH ×2 (10:10→17:18)
[2020-01-16] MEDS: LINEZOLID 600 MG/300 ML RTUPB IV SCH ×2 (10:21→22:15)
[2020-01-16] MEDS: PANTOPRAZOLE SODIUM 40 MG VIAL IV SCH (10:22)
[2020-01-16] MEDS: METOPROLOL TARTRATE 25 MG TABLET PO SCH ×2 (10:22→22:17)
[2020-01-16] MEDS: CEFEPIME 1 GM/D5W RTU 1 GM/50 ML RTUPB IV SCH (10:22)
[2020-01-16] MEDS: GABAPENTIN 100 MG CAPSULE PO SCH ×2 (13:27→22:15)
[2020-01-16] MEDS: MECLIZINE HCL 12.5 MG TABLET PO SCH ×3 (13:29→23:20)
--- NOTE | 2020-01-16 16:06 | PDOC PROGRESS REPORT ---
Subjective Progress Note for:: 01/16/20 Subjective:: Patient is a 59-year-old male with a past medical history of CKD 4, DM2, PUD, arthritis, depression, anemia who was admitted 01/15/20 for sepsis, healthcare associated pneumonia, type II non-STEMI, and acute on chronic kidney disease. Patient was seen on morning rounds. He was found to be on supplemental oxygen by nasal cannula at 3 L/min. He is not home O2 dependent. He denies shortness of breath and cough. Primary complaint today is vertigo; describes motion sickness while lying in bed. He also reports nausea and vomiting; 3 episodes of small-volume emesis. Denies abdominal discomfort diarrhea. He refuses to answer all other questions; states that he wants to be left alone. He does not appear to be in any distress. Nursing reports that patient has refused multiple attempts to obtain a.m. vital signs, a.m. lab work, and Accu-Cheks. Reason For Visit: ACUTE NON STEMI, SEVERE SEPSIS WITHOUT SEPTIC Physical Exam Vital Signs: Temp Pulse Resp BP Pulse Ox 98.3 F 103 H 16 154/92 H 86 L 01/16/20 13:09 01/16/20 13:09 01/16/20 13:09 01/16/20 13:09 01/16/20 13:09 Intake & Output 01/15/20 01/16/20 01/17/20 06:59 06:59 06:59 Intake Total 300 1369 359 Output Total 725 50 Balance 300 644 309 Weight 78.4 kg 78.4 kg General appearance: PRESENT: no acute distress, well-developed, well-nourished - overweight. ABSENT: cooperative Head exam: PRESENT: atraumatic, normocephalic Eye exam: PRESENT: conjunctiva pink, EOMI, PERRLA. ABSENT: scleral icterus Mouth exam: PRESENT: moist, tongue midline Respiratory exam: PRESENT: clear to auscultation yousif, symmetrical, unlabored. ABSENT: rales, rhonchi, wheezes Cardiovascular exam: PRESENT: RRR. ABSENT: diastolic murmur, rubs, systolic murmur Vascular exam: PRESENT: normal capillary refill Extremities exam: PRESENT: full ROM. ABSENT: calf tenderness, clubbing, pedal edema Neurological exam: PRESENT: alert, awake, oriented to person, oriented to place, oriented to time, oriented to situation, CN II-XII grossly intact. ABSENT: motor sensory deficit Psychiatric exam: PRESENT: agitated, normal mood. ABSENT: homicidal ideation, suicidal ideation Skin exam: PRESENT: dry, intact, warm. ABSENT: cyanosis, rash Results Laboratory Results: 01/16/20 08:00 01/16/20 08:00 01/15/20 01/16/20 01/16/20 15:14 08:00 08:00 WBC 16.5 H RBC 3.36 L Hgb 9.9 L Hct 29.9 L MCV 89 MCH 29.4 MCHC 33.0 RDW 14.8 H Plt Count 356 Seg Neutrophils % 79.3 H Sodium 138.4 Potassium 4.1 Chloride 107 Carbon Dioxide 24 Anion Gap 7 BUN 61 H Creatinine 3.54 H Est GFR ( Amer) 21 L Glucose 269 H Calcium 8.7 Ferritin 247.00 Total Bilirubin 0.4 AST 14 L Alkaline Phosphatase 82 C-Reactive Protein 160.7 H Total Protein 6.3 Albumin 2.9 L 01/14/20 01/15/20 01/15/20 20:12 02:41 02:41 Creatine Kinase 49 L CK-MB (CK-2) Troponin I 0.452 0.462 NT-Pro-B Natriuret Pep 76203 H 01/15/20 01/15/20 01/15/20 02:41 08:02 08:02 Creatine Kinase 35 L CK-MB (CK-2) 2.25 1.63 Troponin I Cancelled 0.348 NT-Pro-B Natriuret Pep 01/15/20 01/15/20 15:14 15:14 Creatine Kinase 38 L CK-MB (CK-2) 1.66 Troponin I 0.303 NT-Pro-B Natriuret Pep Impressions: Chest X-Ray 01/14/20 20:37 IMPRESSION: Right lung diffuse pneumonia has developed compared to the prior study along with mild patchy left lower lobe pneumonia. Assessment and Plan - Diagnosis (1) HCAP (healthcare-associated pneumonia) Is this a current diagnosis for this admission?: Yes Plan: Blood culture and NGTD. Sputum cultures pending. COVID pending. Patient is admitted to [facility] on continuous cardiac telemetry. He is empirically placed on IV azithromycin, cefepime, and Zyvox for coverage for other care associated pneumonia (admitted to [facility] last week). Will adjust as cultures result. Provided supplemental oxygen as needed to maintain saturations greater than 89%. He was placed on scheduled and as needed nebulizer treatments. Mucinex twice daily. Robitussin as needed. We will encourage pulmonary toilet with incentive spirometer, flutter valve, and early ambulation. (2) Diabetes mellitus type 2 in nonobese Is this a current diagnosis for this admission?: Yes Plan: A1c 13.2%. Patient is placed on a consistent carb diet. Accu-Cheks before meals and at bedtime with Humalog for sliding scale coverage. Continue Lantus 10 units daily. Hypoglycemia protocol in place. Registered dietitian perinatal educator consulted. (3) Non-ST elevated myocardial infarction (non-STEMI) Is this a current diagnosis for this admission?: No Plan: Lipid panel pending. Cardiology was consulted. Discussed with Dr. Matta. An elevation is unlikely to be related to an acute coronary syndrome; more likely to be demand mismatch ischemia in setting of pneumonia and sepsis with poor clearance of troponins related to chronic kidney disease. Dr. Matta recommendations aspirin, statin, and beta-cecilia therapy. Have started low-dose metoprolol. Will start aspirin therapy once off heparin drip. We will start on low-dose atorvastatin. (4) Severe sepsis without septic shock Is this a current diagnosis for this admission?: Yes Plan: Sepsis is resolved. Vital signs are stable, leukocytosis gradually trending down, lactic acid normal, at baseline renal function. Cultures and antibiotics as above. (5) Anemia Qualifiers: Anemia type: due to chronic kidney disease Chronic kidney disease stage: stage 4 (severe) Qualified Code(s): N18.4 - Chronic kidney disease, stage 4 (severe); D63.1 - Anemia in chronic kidney disease Is this a current diagnosis for this admission?: Yes Plan: Overall stable; slight downward drift of Hgb r/t IVF. No active bleeding. Follow up CBC (6) CKD stage 4 due to type 2 diabetes mellitus Is this a current diagnosis for this admission?: Yes Plan: Acute worsening is improved; approaching baseline renal function. Cr 4.14-> 3.54. Baseline Cr 3.2 Continue gentle IV fluids. Avoid nephrotoxic medications as able. Follow-up chemistries. (7) Hyperlipidemia Qualifiers: Hyperlipidemia type: unspecified Qualified Code(s): E78.5 - Hyperlipidemia, unspecified Is this a current diagnosis for this admission?: Yes Plan: Lipid panel pending. Start low-dose atorvastatin. (8) Nausea & vomiting Qualifiers: Vomiting type: unspecified Vomiting Intractability: intractable Qualified Code(s): R11.2 - Nausea with vomiting, unspecified Is this a current diagnosis for this admission?: Yes Plan: Continue gentle IV fluids. Antiemetics as needed. Continue home dose meclizine. (9) Osteoarthritis Qualifiers: Osteoarthritis location: multiple joints Osteoarthritis type: unspecified Qualified Code(s): M15.9 - Polyosteoarthritis, unspecified Is this a current diagnosis for this admission?: Yes Plan: Continue home dose oxycodone. Have renally dosed gabapentin. Encourage nonpharmacological interventions for pain. (10) Vertigo Is this a current diagnosis for this admission?: Yes Plan: Continue home dose meclizine. (11) Elevated white blood cell count Qualifiers: Leukocytosis type: unspecified Qualified Code(s): D72.829 - Elevated white blood cell count, unspecified Is this a current diagnosis for this admission?: Yes Plan: Secondary #1. Cultures and antibiotics as above.
[2020-01-16] MEDS: ACETAMINOPHEN 325 MG TABLET PO PRN (16:17)
[2020-01-16] MEDS: IPRATROPIUM/ALBUTEROL 0.5-2.5 MG/3 ML AMPUL NEB SCH (20:32)
[2020-01-16] MEDS: ATORVASTATIN CALCIUM 20 MG TABLET PO SCH (22:15)
[2020-01-16] MEDS: GUAIFENESIN 600 MG TABLET.SA PO SCH (22:17)
[2020-01-17] MEDS: ACETAMINOPHEN 325 MG TABLET PO PRN ×2 (00:46→06:46)
[2020-01-17] MEDS: IPRATROPIUM/ALBUTEROL 0.5-2.5 MG/3 ML AMPUL NEB SCH ×4 (02:22→20:51)
[2020-01-17] MEDS: GABAPENTIN 100 MG CAPSULE PO SCH ×3 (05:22→22:24)
[2020-01-17] MEDS: MECLIZINE HCL 12.5 MG TABLET PO SCH ×4 (05:22→16:59)
[2020-01-17] MEDS: AZITHROMYCIN 500 MG in DEXTROSE 5%-WATER 250 ML IV SCH (05:22)
[2020-01-17] MEDS: OXYCODONE HCL IR 5 MG TABLET PO SCH ×4 (05:23→16:59)
[2020-01-17] MEDS: RINGERS SOLUTION,LACTATED 1,000 ML IV PRN (05:25)
[2020-01-17 06:35] LABS: HEMATOCRIT 28.5 % (37.9-51.0); HEMOGLOBIN 9.5 g/dL (13.5-17.0); MEAN CORPUSCULAR HEMOGLOBIN 29.6 pg (27.0-33.4); MEAN CORPUSCULAR HGB CONC 33.3 g/dL (32.0-36.0); MEAN CORPUSCULAR VOLUME 89 fl (80-97); PLATELET COUNT 385 10^3/uL (150-450); RED BLOOD COUNT 3.21 10^6/uL (4.35-5.55); RED CELL DISTRIBUTION WIDTH 14.5 % (11.5-14.0); WHITE BLOOD COUNT 14.4 10^3/uL (4.0-10.5)
[2020-01-17 06:59] LABS: ANION GAP 7 (5-19); BLOOD UREA NITROGEN 55 mg/dL (7-20); CALCIUM 8.8 mg/dL (8.4-10.2); CARBON DIOXIDE 24 mmol/L (22-30); CHLORIDE 107 mmol/L (98-107); GLUCOSE 232 mg/dL (75-110); POTASSIUM 4.2 mmol/L (3.6-5.0)
[2020-01-17] MEDS: INSULIN REG, HUMAN 100 UNIT/ML 3 ML VIAL (PYX) SUBCUT SCH ×4 (08:36→22:43)
[2020-01-17] MEDS: INSULIN GLARGINE,HUM.REC.ANLOG 1,000 UNIT/10 ML VIAL SUBCUT SCH (09:39)
[2020-01-17] MEDS: DOCUSATE SODIUM 100 MG CAPSULE PO SCH ×2 (09:39→17:07)
[2020-01-17] MEDS: PANTOPRAZOLE SODIUM 40 MG VIAL IV SCH (09:40)
[2020-01-17] MEDS: LINEZOLID 600 MG/300 ML RTUPB IV SCH ×2 (09:40→22:23)
[2020-01-17] MEDS: METOPROLOL TARTRATE 25 MG TABLET PO SCH ×2 (09:40→22:25)
[2020-01-17] MEDS: GUAIFENESIN 600 MG TABLET.SA PO SCH ×2 (09:40→22:25)
[2020-01-17] MEDS: CEFEPIME 1 GM/D5W RTU 1 GM/50 ML RTUPB IV SCH (09:40)
[2020-01-17] MEDS: ACETYLCYSTEINE 20% SOLN 800 MG/4 ML VIAL.NEB NEB SCH ×2 (09:46→20:51)
--- NOTE | 2020-01-17 13:29 | PDOC PROGRESS REPORT ---
Subjective Progress Note for:: 01/17/20 Subjective:: Patient is a 59-year-old male with a past medical history of CKD 4, DM2, PUD, arthritis, depression, anemia who was admitted 01/15/20 for sepsis, healthcare associated pneumonia, type II non-STEMI, and acute on chronic kidney disease. Patient was seen on morning rounds. And again shortly later with the nursing credit and loan collections supervisor present. The patient is highly agitated and verbally abusive during both encounters. He states that he has not seen a provider the entire time he has been admitted; he is reminded that I have seen him every day including his day of admission while still in the emergency department. The patient states, "I know a liar when I see one." He has numerous complaints regarding nursing staff and his male; his only clinical concern is regarding his COVID status. Advised that this test is still pending and we do not expect these results back until tomorrow; he again expresses disbelief. His ROS is limited secondary to previous dissipation; only symptom that he will admit to his dizziness is a chronic issue having been noted during prior adm issions. He is advised that we are continuing his home dose meclizine and has PRN antiemetics available. He is informed that following resolution of his pneumonia and oxygen requirement that should he remain symptomatic we could consider imaging and that I recommended an outpatient neurology consultation. The patient previously stated that he intended to leave AGAINST MEDICAL ADVICE but is now willing to stay at least until his COVID testing results. Plan of care discussed thoroughly with nursing. Reason For Visit: ACUTE NON STEMI, SEVERE SEPSIS WITHOUT SEPTIC Physical Exam Vital Signs: Temp Pulse Resp BP Pulse Ox 98.5 F 94 18 121/73 93 01/17/20 08:57 01/17/20 08:57 01/17/20 08:57 01/17/20 03:18 01/17/20 08:57 Intake & Output 01/16/20 01/17/20 01/18/20 06:59 06:59 06:59 Intake Total 1369 1659 1250 Output Total 725 1400 Balance 830 253 5157 Weight 78.4 kg 78.6 kg General appearance: PRESENT: no acute distress, disheveled, well-developed, well-nourished - overweight. ABSENT: cooperative Head exam: PRESENT: atraumatic, normocephalic Eye exam: PRESENT: conjunctiva pink, EOMI, PERRLA. ABSENT: scleral icterus Ear exam: PRESENT: normal external ear exam Respiratory exam: PRESENT: symmetrical, unlabored, other - Supplemental oxygen via nasal cannula. ABSENT: accessory muscle use, retraction, tachypnea Cardiovascular exam: PRESENT: RRR Extremities exam: PRESENT: full ROM. ABSENT: calf tenderness, clubbing, pedal edema Musculoskeletal exam: PRESENT: ambulatory Neurological exam: PRESENT: alert, awake, oriented to person, oriented to place, oriented to time, oriented to situation, CN II-XII grossly intact. ABSENT: motor sensory deficit Psychiatric exam: PRESENT: agitated - Verbally abusive, appropriate affect, normal mood. ABSENT: homicidal ideation, suicidal ideation Skin exam: PRESENT: dry, intact, warm. ABSENT: cyanosis, rash Additional comments: Exam limited secondary to patient participation Results Laboratory Results: 01/17/20 05:51 01/17/20 05:51 01/17/20 01/17/20 05:51 05:51 WBC 14.4 H RBC 3.21 L Hgb 9.5 L Hct 28.5 L MCV 89 MCH 29.6 MCHC 33.3 RDW 14.5 H Plt Count 385 Sodium 138.4 Potassium 4.2 Chloride 107 Carbon Dioxide 24 Anion Gap 7 BUN 55 H Creatinine 3.18 H Est GFR ( Amer) 24 L Glucose 232 H Calcium 8.8 01/14/20 01/15/20 01/15/20 20:12 02:41 02:41 Creatine Kinase 49 L CK-MB (CK-2) Troponin I 0.452 0.462 NT-Pro-B Natriuret Pep 30197 H 01/15/20 01/15/20 01/15/20 02:41 08:02 08:02 Creatine Kinase 35 L CK-MB (CK-2) 2.25 1.63 Troponin I Cancelled 0.348 NT-Pro-B Natriuret Pep 01/15/20 01/15/20 15:14 15:14 Creatine Kinase 38 L CK-MB (CK-2) 1.66 Troponin I 0.303 NT-Pro-B Natriuret Pep Impressions: Chest X-Ray 01/14/20 20:37 IMPRESSION: Right lung diffuse pneumonia has developed compared to the prior study along with mild patchy left lower lobe pneumonia. Assessment and Plan - Diagnosis (1) HCAP (healthcare-associated pneumonia) Is this a current diagnosis for this admission?: Yes Plan: Blood culture and NGTD. Sputum cultures pending. COVID pending. Patient is admitted to [facility] on continuous cardiac telemetry. He is empirically placed on IV azithromycin, cefepime, and Zyvox for coverage for other care associated pneumonia (admitted to [facility] last week). Will adjust as cultures result. Provided supplemental oxygen as needed to maintain saturations greater than 89%. He was placed on scheduled and as needed nebulizer treatments. Mucinex twice daily. Robitussin as needed. We will encourage pulmonary toilet with incentive spirometer, flutter valve, and early ambulation. (2) Diabetes mellitus type 2 in nonobese Is this a current diagnosis for this admission?: Yes Plan: A1c 13.2%. Patient is placed on a consistent carb diet. Accu-Cheks before meals and at bedtime with Humalog for sliding scale coverage. Continue Lantus 10 units daily. Hypoglycemia protocol in place. Registered dietitian ironing worker consulted. (3) Non-ST elevated myocardial infarction (non-STEMI) Is this a current diagnosis for this admission?: No Plan: Lipid panel pending. Cardiology was consulted. Discussed with Dr. Matta. An elevation is unlikely to be related to an acute coronary syndrome; more likely to be demand mismatch ischemia in setting of pneumonia and sepsis with poor clearance of troponins related to chronic kidney disease. Dr. Matta recommendations aspirin, statin, and beta-cecilia therapy. Have started low-dose metoprolol. We will start on low-dose atorvastatin. Drip has been discontinued; will start daily aspirin therapy. (4) Anemia Qualifiers: Anemia type: due to chronic kidney disease Chronic kidney disease stage: stage 4 (severe) Qualified Code(s): N18.4 - Chronic kidney disease, stage 4 (severe); D63.1 - Anemia in chronic kidney disease Is this a current diagnosis for this admission?: Yes Plan: Overall stable; slight downward drift of Hgb r/t IVF. No active bleeding. Follow up CBC (5) CKD stage 4 due to type 2 diabetes mellitus Is this a current diagnosis for this admission?: Yes Plan: Acute worsening is improved; approaching baseline renal function. Cr 4.14-> 3.18. Baseline Cr 3.2 Continue gentle IV fluids. Avoid nephrotoxic medications as able. Follow-up chemistries. (6) Hyperlipidemia Qualifiers: Hyperlipidemia type: unspecified Qualified Code(s): E78.5 - Hyperlipidemia, unspecified Is this a current diagnosis for this admission?: Yes Plan: Lipid panel pending. Start low-dose atorvastatin. (7) Nausea & vomiting Qualifiers: Vomiting type: unspecified Vomiting Intractability: intractable Qualified Code(s): R11.2 - Nausea with vomiting, unspecified Is this a current diagnosis for this admission?: Yes Plan: Continue gentle IV fluids. Antiemetics as needed. Continue home dose meclizine. (8) Osteoarthritis Qualifiers: Osteoarthritis location: multiple joints Osteoarthritis type: unspecified Qualified Code(s): M15.9 - Polyosteoarthritis, unspecified Is this a current diagnosis for this admission?: Yes Plan: Verified with the [place] controlled substance database; patient is prescribed oxycodone 15 mg every 6 hours by pain management clinic. Continue home dose oxycodone. Have renally dosed gabapentin. Encourage nonpharmacological interventions for pain. (9) Vertigo Is this a current diagnosis for this admission?: Yes Plan: Continue home dose meclizine. Possibly related to oxycodone; after review of database, it appears that his dose was increased 3 months ago. Certainly complicated by his acute on chronic kidney failure, sepsis, and pneumonia requiring oxygen supplementation. Fall precautions. Change positions slowly. Consider CT imaging once his acute illnesses have resolved. (10) Elevated white blood cell count Qualifiers: Leukocytosis type: unspecified Qualified Code(s): D72.829 - Elevated white blood cell count, unspecified Is this a current diagnosis for this admission?: Yes Plan: Improving. Secondary #1. Cultures and antibiotics as above. (11) Severe sepsis without septic shock Is this a current diagnosis for this admission?: Yes Plan: Sepsis is resolved. Vital signs are stable, leukocytosis gradually trending down, lactic acid normal, at baseline renal function. Cultures and antibiotics as above. - Time Time Spent with patient: 35 or more minutes Medications reviewed and adjusted accordingly: Yes Anticipated discharge: Home
[2020-01-17] MEDS: ASPIRIN 81 MG TABLET, CHEWABLE PO SCH (22:25)
[2020-01-17] MEDS: ATORVASTATIN CALCIUM 20 MG TABLET PO SCH (22:25)
[2020-01-18] MEDS: OXYCODONE HCL IR 5 MG TABLET PO SCH ×5 (00:08→23:03)
[2020-01-18] MEDS: MECLIZINE HCL 12.5 MG TABLET PO SCH ×5 (00:09→23:04)
[2020-01-18] MEDS: IPRATROPIUM/ALBUTEROL 0.5-2.5 MG/3 ML AMPUL NEB SCH ×4 (02:33→19:42)
[2020-01-18] MEDS: RINGERS SOLUTION,LACTATED 1,000 ML IV PRN ×2 (03:02→13:27)
[2020-01-18] MEDS: GABAPENTIN 100 MG CAPSULE PO SCH ×3 (05:02→21:53)
[2020-01-18] MEDS ORDERED: AZITHROMYCIN INJ 500 MG VIAL IV ONE (05:27)
[2020-01-18] MEDS: AZITHROMYCIN 500 MG in DEXTROSE 5%-WATER 250 ML IV SCH (05:57)
[2020-01-18] MEDS: ONDANSETRON HCL INJ/PF 4 MG/2 ML SDV IV PRN (06:34)
[2020-01-18 07:06] LABS: HEMATOCRIT 29.1 % (37.9-51.0); HEMOGLOBIN 9.5 g/dL (13.5-17.0); MEAN CORPUSCULAR HEMOGLOBIN 28.9 pg (27.0-33.4); MEAN CORPUSCULAR HGB CONC 32.6 g/dL (32.0-36.0); MEAN CORPUSCULAR VOLUME 89 fl (80-97); PLATELET COUNT 398 10^3/uL (150-450); RED BLOOD COUNT 3.27 10^6/uL (4.35-5.55); RED CELL DISTRIBUTION WIDTH 14.6 % (11.5-14.0); WHITE BLOOD COUNT 15.9 10^3/uL (4.0-10.5)
[2020-01-18 07:30] LABS: ANION GAP 7 (5-19); BLOOD UREA NITROGEN 52 mg/dL (7-20); CALCIUM 8.7 mg/dL (8.4-10.2); CARBON DIOXIDE 25 mmol/L (22-30); CHLORIDE 105 mmol/L (98-107); GLUCOSE 228 mg/dL (75-110); POTASSIUM 4.3 mmol/L (3.6-5.0)
[2020-01-18] MEDS: ACETYLCYSTEINE 20% SOLN 800 MG/4 ML VIAL.NEB NEB SCH ×2 (07:57→19:42)
[2020-01-18] MEDS: INSULIN REG, HUMAN 100 UNIT/ML 3 ML VIAL (PYX) SUBCUT SCH ×4 (08:37→21:52)
[2020-01-18] MEDS: METOPROLOL TARTRATE 25 MG TABLET PO SCH ×2 (09:54→21:56)
[2020-01-18] MEDS: GUAIFENESIN 600 MG TABLET.SA PO SCH ×2 (09:54→21:54)
[2020-01-18] MEDS: INSULIN GLARGINE,HUM.REC.ANLOG 1,000 UNIT/10 ML VIAL SUBCUT SCH (09:55)
[2020-01-18] MEDS: PANTOPRAZOLE SODIUM 40 MG VIAL IV SCH (09:55)
[2020-01-18] MEDS: CEFEPIME 1 GM/D5W RTU 1 GM/50 ML RTUPB IV SCH (09:56)
[2020-01-18] MEDS: DOCUSATE SODIUM 100 MG CAPSULE PO SCH ×2 (10:02→17:23)
[2020-01-18] MEDS: LINEZOLID 600 MG/300 ML RTUPB IV SCH (11:06)
--- NOTE | 2020-01-18 13:41 | PDOC PROGRESS REPORT ---
Subjective Progress Note for:: 01/18/20 Subjective:: Patient is a 59-year-old male with a past medical history of CKD 4, DM2, PUD, arthritis, depression, anemia who was admitted 01/15/20 for sepsis, healthcare associated pneumonia, type II non-STEMI, and acute on chronic kidney disease. Patient was seen on morning rounds. He was found resting in bed, comfortably, on supplemental oxygen at 3 L/min. He reports that he is not home O2 dependent. He tells me that he was placed back on oxygen because nurses were concerned about low oxygenation; nursing is present and states that it was returned due to patient report of comfort. His oxygen saturations have been within normal limits. He is encouraged to continue pulmonary toilet as we wean his oxygen in preparation for possible discharge home tomorrow. He reports continued dizziness with occasional nausea and vomiting. But otherwise has no questions or concerns at this time. He denies fever, chills, chest pain, palpitations, dyspnea, orthopnea, cough, abdominal pain, diarrhea and constipation. No concerns per nursing. Reason For Visit: ACUTE NON STEMI, SEVERE SEPSIS WITHOUT SEPTIC Physical Exam Vital Signs: Temp Pulse Resp BP Pulse Ox 97.7 F 91 18 139/90 H 96 01/18/20 07:59 01/18/20 07:59 01/18/20 07:59 01/18/20 07:59 01/18/20 07:59 Intake & Output 01/17/20 01/18/20 01/19/20 06:59 06:59 06:59 Intake Total 1659 1650 300 Output Total 1400 0 Balance 259 1650 300 Weight 78.6 kg 79.1 kg General appearance: PRESENT: no acute distress, well-developed, well-nourished - Overweight Head exam: PRESENT: atraumatic, normocephalic Eye exam: PRESENT: conjunctiva pink, EOMI, PERRLA. ABSENT: scleral icterus Mouth exam: PRESENT: moist, tongue midline Respiratory exam: PRESENT: clear to auscultation yousif, symmetrical, unlabored, other - Supplemental oxygen by nasal cannula. ABSENT: rales, rhonchi, wheezes Cardiovascular exam: PRESENT: RRR. ABSENT: diastolic murmur, rubs, systolic murmur Vascular exam: PRESENT: normal capillary refill Extremities exam: PRESENT: full ROM. ABSENT: calf tenderness, clubbing, pedal edema Musculoskeletal exam: PRESENT: ambulatory Neurological exam: PRESENT: alert, awake, oriented to person, oriented to place, oriented to time, oriented to situation, CN II-XII grossly intact. ABSENT: motor sensory deficit Psychiatric exam: PRESENT: appropriate affect, normal mood. ABSENT: homicidal ideation, suicidal ideation Skin exam: PRESENT: dry, intact, warm. ABSENT: cyanosis, rash Results Laboratory Results: 01/18/20 06:47 01/18/20 06:47 01/18/20 01/18/20 06:47 06:47 WBC 15.9 H RBC 3.27 L Hgb 9.5 L Hct 29.1 L MCV 89 MCH 28.9 MCHC 32.6 RDW 14.6 H Plt Count 398 Sodium 137.2 Potassium 4.3 Chloride 105 Carbon Dioxide 25 Anion Gap 7 BUN 52 H Creatinine 3.38 H Est GFR ( Amer) 23 L Glucose 228 H Calcium 8.7 01/14/20 01/15/20 01/15/20 20:12 02:41 02:41 Creatine Kinase 49 L CK-MB (CK-2) Troponin I 0.452 0.462 NT-Pro-B Natriuret Pep 66799 H 01/15/20 01/15/20 01/15/20 02:41 08:02 08:02 Creatine Kinase 35 L CK-MB (CK-2) 2.25 1.63 Troponin I Cancelled 0.348 NT-Pro-B Natriuret Pep 01/15/20 01/15/20 15:14 15:14 Creatine Kinase 38 L CK-MB (CK-2) 1.66 Troponin I 0.303 NT-Pro-B Natriuret Pep Impressions: Chest X-Ray 01/14/20 20:37 IMPRESSION: Right lung diffuse pneumonia has developed compared to the prior study along with mild patchy left lower lobe pneumonia. Assessment and Plan - Diagnosis (1) HCAP (healthcare-associated pneumonia) Is this a current diagnosis for this admission?: Yes Plan: Blood culture and NGTD. Sputum cultures not obtained; no sputum production. COVID Negative Patient is admitted to [facility] on continuous cardiac telemetry. He is now stable for downgrade to medical floor. He is was empirically placed on IV azithromycin, cefepime, and Zyvox for coverage for other care associated pneumonia (admitted to [facility] last week). As the patient remains afebrile, leukocytosis improved, clinically improved, with negative blood cultures will discontinue Zyvox today. Will transition azithr omycin to p.o. and cefepime to p.o. cefpodoxime. Provided supplemental oxygen as needed to maintain saturations greater than 89%. Have asked nursing to begin weaning. He was placed on scheduled and as needed nebulizer treatments. Mucomist neb twice daily. Mucinex twice daily. Robitussin as needed. We will encourage pulmonary toilet with incentive spirometer, flutter valve, and early ambulation. (2) Diabetes mellitus type 2 in nonobese Is this a current diagnosis for this admission?: Yes Plan: A1c 13.2%. Patient is placed on a consistent carb diet. Accu-Cheks before meals and at bedtime with Humalog for sliding scale coverage. Continue Lantus 10 units daily. Hypoglycemia protocol in place. Registered dietitian health information specialist consulted. (3) Non-ST elevated myocardial infarction (non-STEMI) Is this a current diagnosis for this admission?: No Plan: Cardiology was consulted. Discussed with Dr. Matta. An elevation is unlikely to be related to an acute coronary syndrome; more likely to be demand mismatch ischemia in setting of pneumonia and sepsis with poor clearance of troponins related to chronic kidney disease. Dr. Matta recommendations aspirin, statin, and beta-cecilia therapy. Have started low-dose metoprolol. We will start on low-dose atorvastatin. Start daily aspirin therapy. (4) Anemia Qualifiers: Anemia type: due to chronic kidney disease Chronic kidney disease stage: stage 4 (severe) Qualified Code(s): N18.4 - Chronic kidney disease, stage 4 (severe); D63.1 - Anemia in chronic kidney disease Is this a current diagnosis for this admission?: Yes Plan: Overall stable; slight downward drift of Hgb r/t IVF. No active bleeding. Follow up CBC (5) CKD stage 4 due to type 2 diabetes mellitus Is this a current diagnosis for this admission?: Yes Plan: Acute worsening is improved; approaching baseline renal function. Cr 4.14-> 3.18. Baseline Cr 3.2 Continue gentle IV fluids. Avoid nephrotoxic medications as able. Follow-up chemistries. (6) Hyperlipidemia Qualifiers: Hyperlipidemia type: unspecified Qualified Code(s): E78.5 - Hyperlipidemia, unspecified Is this a current diagnosis for this admission?: Yes Plan: Lipid panel pending. Start low-dose atorvastatin. (7) Nausea & vomiting Qualifiers: Vomiting type: unspecified Vomiting Intractability: intractable Qualified Code(s): R11.2 - Nausea with vomiting, unspecified Is this a current diagnosis for this admission?: Yes Plan: Improved; related to vertigo. Antiemetics as needed. Continue home dose meclizine. (8) Osteoarthritis Qualifiers: Osteoarthritis location: multiple joints Osteoarthritis type: unspecified Qualified Code(s): M15.9 - Polyosteoarthritis, unspecified Is this a current diagnosis for this admission?: Yes Plan: Verified with the [place] controlled substance database; patient is prescribed oxycodone 15 mg every 6 hours by pain management clinic. Continue home dose oxycodone. Have renally dosed gabapentin. Encourage nonpharmacological interventions for pain. (9) Vertigo Is this a current diagnosis for this admission?: Yes Plan: Continue home dose meclizine. Possibly related to oxycodone; after review of database, it appears that his dose was increased 3 months ago. Certainly complicated by his acute on chronic kidney failure, sepsis, and pneumonia requiring oxygen supplementation. Fall precautions. Change positions slowly. Physical therapy consultation for vestibular evaluation. (10) Elevated white blood cell count Qualifiers: Leukocytosis type: unspecified Qualified Code(s): D72.829 - Elevated white blood cell count, unspecified Is this a current diagnosis for this admission?: Yes Plan: Improving. Secondary #1. Cultures and antibiotics as above. (11) Severe sepsis without septic shock Is this a current diagnosis for this admission?: Yes Plan: Sepsis is resolved. Vital signs are stable, leukocytosis gradually trending down, lactic acid normal, at baseline renal function. Cultures and antibiotics as above. - Time Time Spent with patient: 25-34 minutes Medications reviewed and adjusted accordingly: Yes Anticipated discharge: Home Within: within 24 hours
[2020-01-18] MEDS: ATORVASTATIN CALCIUM 20 MG TABLET PO SCH (21:53)
[2020-01-18] MEDS: ASPIRIN 81 MG TABLET, CHEWABLE PO SCH (21:54)
[2020-01-18] MEDS ORDERED: CEFPODOXIME 200 MG TABLET PO SCH (22:00)
[2020-01-19 00:24] VITALS: BP 130/83
[2020-01-19] MEDS: IPRATROPIUM/ALBUTEROL 0.5-2.5 MG/3 ML AMPUL NEB SCH ×2 (02:42→08:21)
[2020-01-19] MEDS: MECLIZINE HCL 12.5 MG TABLET PO SCH (05:37)
[2020-01-19] MEDS: GABAPENTIN 100 MG CAPSULE PO SCH (05:37)
[2020-01-19] MEDS: OXYCODONE HCL IR 5 MG TABLET PO SCH (05:38)
[2020-01-19] MEDS ORDERED: PANTOPRAZOLE SODIUM 40 MG TABLET.DR PO SCH (06:00)
[2020-01-19 06:13] LABS: HEMATOCRIT 28.6 % (37.9-51.0); HEMOGLOBIN 9.4 g/dL (13.5-17.0); MEAN CORPUSCULAR HEMOGLOBIN 28.9 pg (27.0-33.4); MEAN CORPUSCULAR HGB CONC 32.8 g/dL (32.0-36.0); MEAN CORPUSCULAR VOLUME 88 fl (80-97); PLATELET COUNT 408 10^3/uL (150-450); RED BLOOD COUNT 3.25 10^6/uL (4.35-5.55); RED CELL DISTRIBUTION WIDTH 14.7 % (11.5-14.0); WHITE BLOOD COUNT 15.3 10^3/uL (4.0-10.5)
[2020-01-19] MEDS: ACETYLCYSTEINE 20% SOLN 800 MG/4 ML VIAL.NEB NEB SCH (08:21)
[2020-01-19] MEDS ORDERED: AZITHROMYCIN 250 MG TABLET PO SCH (10:00)
--- NOTE | 2020-01-19 14:54 | PDOC DISCHARGE SUMMARY ---
Impression - Admit/DC Date/PCP Admission Date/Primary Care Provider: 01/15/20 03:51 GOLD ELENA Discharge Date: 01/19/20 - Discharge Diagnosis (1) HCAP (healthcare-associated pneumonia) Is this a current diagnosis for this admission?: Yes (2) Diabetes mellitus type 2 in nonobese Is this a current diagnosis for this admission?: Yes (3) Non-ST elevated myocardial infarction (non-STEMI) Is this a current diagnosis for this admission?: No (4) Anemia Is this a current diagnosis for this admission?: Yes (5) CKD stage 4 due to type 2 diabetes mellitus Is this a current diagnosis for this admission?: Yes (6) Hyperlipidemia Is this a current diagnosis for this admission?: Yes (7) Nausea & vomiting Is this a current diagnosis for this admission?: Yes (8) Osteoarthritis Is this a current diagnosis for this admission?: Yes (9) Vertigo Is this a current diagnosis for this admission?: Yes (10) Elevated white blood cell count Is this a current diagnosis for this admission?: Yes (11) Severe sepsis without septic shock Is this a current diagnosis for this admission?: Yes - Additional Information Resuscitation Status: Full Code Discharge Diet: Cardiac, Diabetic Discharge Activity: Activity As Tolerated, Balance Activity w/Rest, Supervised Activity Referrals: KWAN ELLSWORTH FNP-C [Primary Care Provider] - Follow up as needed Prescriptions: Insulin Glargine,Hum.rec.anlog [Lantus Insulin 100 Unit/1 ml 10 ml] 10 unit SUBCUT DAILY #1 vial Atorvastatin Calcium [Lipitor 20 mg Tablet] 20 mg PO QHS #30 tablet Metoprolol Tartrate [Lopressor 25 mg Tablet] 12.5 mg PO Q12 #15 tablet Gabapentin [Neurontin 100 mg Capsule] 200 mg PO Q8 #180 capsule Cefpodoxime Proxetil [Vantin 200 mg Tablet] 200 mg PO Q12 #12 tablet Ondansetron [Zofran Odt 4 mg Tablet] 1 - 2 tab PO Q4HP PRN #10 tab.rapdis PRN Reason: Home Medications: Meloxicam [Mobic 7.5 mg Tablet] 7.5 mg PO Q12HP PRN 01/06/20 Oxycodone HCl [Oxy-Ir 5 mg Tablet] 15 mg PO Q6 06/20/20 Acetaminophen [Tylenol 325 mg Tablet] 650 mg PO Q6HP PRN tablet 01/19/20 Aspirin [Aspirin 81 mg Chewable Tablet] 81 mg PO QHS #0 tab.chew 01/19/20 Atorvastatin Calcium [Lipitor 20 mg Tablet] 20 mg PO QHS #30 tablet 01/19/20 Cefpodoxime Proxetil [Vantin 200 mg Tablet] 200 mg PO Q12 #12 tablet 01/19/20 Gabapentin [Neurontin 100 mg Capsule] 200 mg PO Q8 #180 capsule 01/19/20 Insulin Glargine,Hum.rec.anlog [Lantus Insulin 100 Unit/1 ml 10 ml] 10 unit SUB CUT DAILY #1 vial 01/19/20 Metoprolol Tartrate [Lopressor 25 mg Tablet] 12.5 mg PO Q12 #15 tablet 01/19/20 Ondansetron [Zofran Odt 4 mg Tablet] 1 - 2 tab PO Q4HP PRN #10 tab.rapdis 01/19/20 History of Present Illiness History of Present Illness: Per H&P by Dr. Dennis: FREDDIE LAZO JR is a 59 year old male who presented to the emergency room with a 2-day history of nausea and vomiting. He admits severe persistent nausea with numerous episodes of vomiting accompanied by decreased oral intake and associated with fatigue, malaise, dizziness (vertigo), lightheadedness and dyspnea. He denies other associated or accompanying signs and symptoms. He feels that he is dehydrated due to his poor intake. He admits prior similar symptoms including a recent admission to this hospital for nausea vomiting and diarrhea. He has not identified any aggravating or ameliorating factors for his nausea and vomiting. In the emergency room he was found to have an elevated troponin at 0.452, an elevated BNP at 28,800, a leukocytosis, a right lower lobe pneumonia by chest x-ray, acute respiratory failure with hypoxia and moderate hypotension. He was evaluated by the tv news director service and determined to be appropriate for admission to the medical service but not to be appropriate for ICU admission. Patient was therefore admitted to the hospitalist service for further evaluation and treatment. Hospital Course Hospital Course: (1) HCAP (healthcare-associated pneumonia) Blood culture and NGTD. Sputum cultures not obtained; no sputum production. COVID Negative Patient was admitted to [facility] on continuous cardiac telemetry. He is now stable for downgrade to medical floor. He is was empirically placed on IV azithromycin, cefepime, and Zyvox for coverage for other care associated pneumonia (admitted to [facility] last week). The day prior to discharge, his Zyvoxx was discontinued and he was transition to p.o. azithromycin and cefpodoxime. He was provided supplemental oxygen as needed to maintain saturations greater than 89%. Now maintaining oxygen saturations on room air. He was placed on scheduled and as needed nebulizer treatments. Encouraged pulmonary toilet with incentive spirometer, flutter valve, and early ambulation. (2) Diabetes mellitus type 2 in nonobese A1c 13.2%. Resume outpatient medication regimen on discharge. Close outpatient follow up. (3) Non-ST elevated myocardial infarction (non-STEMI) Cardiology was consulted. Discussed with Dr. Matta. An elevation is unlikely to be related to an acute coronary syndrome; more likely to be demand mismatch ischemia in setting of pneumonia and sepsis with poor clearance of troponins related to chronic kidney disease. Dr. Matta recommendations aspirin, statin, and beta-cecilia therapy. Have started low-dose metoprolo, atorvastatin and daily aspirin therapy. (4) Anemia Overall stable; slight downward drift of Hgb r/t IVF. No active bleeding. (5) CKD stage 4 due to type 2 diabetes mellitus Acute worsening is improved; approaching baseline renal function. Cr 4.14-> 3.18. Baseline Cr 3.2 (6) Hyperlipidemia Continue low-dose atorvastatin. (7) Nausea & vomiting Improved; related to vertigo. Antiemetics as needed. Continue home dose meclizine. Outpatient physical therapy evaluation. Declined inpatient evaluation. (8) Osteoarthritis Verified with the [place] controlled substance database; patient is prescribed oxycodone 15 mg every 6 hours by pain management clinic. Continue home dose oxycodone. Renally dosed gabapentin. Encourage nonpharmacological interventions for pain. Recommend PCP and Pain Management providers decrease dose or transition to a non-euphoric medications. (9) Vertigo Continue home dose meclizine. Possibly related to oxycodone; after review of database, it appears that his dose was increased 3 months ago. Certainly complicated by his acute on chronic kidney failure, sepsis, and pneumonia requiring oxygen supplementation. Fall precautions. Change positions slowly. Outpatient physical therapy evaluation. Declined inpatient evaluation. (10) Elevated white blood cell count Improving. Secondary #1. Cultures and antibiotics as above. (11) Severe sepsis without septic shock Sepsis is resolved. Vital signs are stable, leukocytosis gradually trending down, lactic acid normal, at baseline renal function. Cultures and antibiotics as above. Physical Exam Vital Signs: Temp Pulse Resp BP Pulse Ox 98.6 F 87 12 130/83 H 96 01/19/20 09:38 01/19/20 09:38 01/19/20 09:38 01/19/20 09:38 01/19/20 09:38 Intake & Output 01/18/20 01/19/20 01/20/20 06:59 06:59 06:59 Intake Total 1650 3731 Output Total 0 Balance 1650 3731 Weight 79.1 kg 79.8 kg General appearance: PRESENT: no acute distress, well-developed, well-nourished - overwight. ABSENT: cooperative Head exam: PRESENT: atraumatic, normocephalic Eye exam: PRESENT: conjunctiva pink, EOMI, PERRLA. ABSENT: nystagmus, scleral icterus Mouth exam: PRESENT: moist, tongue midline Respiratory exam: PRESENT: clear to auscultation yousif, symmetrical, unlabored. ABSENT: rales, rhonchi, wheezes Cardiovascular exam: PRESENT: RRR. ABSENT: diastolic murmur, rubs, systolic murmur Vascular exam: PRESENT: normal capillary refill Extremities exam: PRESENT: full ROM. ABSENT: calf tenderness, clubbing, pedal edema Musculoskeletal exam: PRESENT: ambulatory Neurological exam: PRESENT: alert, awake, oriented to person, oriented to place, oriented to time, oriented to situation, CN II-XII grossly intact. ABSENT: motor sensory deficit Psychiatric exam: PRESENT: agitated. ABSENT: homicidal ideation, suicidal ideation Skin exam: PRESENT: dry, intact, warm. ABSENT: cyanosis, rash Results Laboratory Results: WBC 15.3 10^3/uL (4.0-10.5) H 01/19/20 05:44 RBC 3.25 10^6/uL (4.35-5.55) L 01/19/20 05:44 Hgb 9.4 g/dL (13.5-17.0) L 01/19/20 05:44 Hct 28.6 % (37.9-51.0) L 01/19/20 05:44 MCV 88 fl (80-97) 01/19/20 05:44 MCH 28.9 pg (27.0-33.4) 01/19/20 05:44 MCHC 32.8 g/dL (32.0-36.0) 01/19/20 05:44 RDW 14.7 % (11.5-14.0) H 01/19/20 05:44 Plt Count 408 10^3/uL (150-450) 01/19/20 05:44 Lymph % (Auto) 9.0 % (13-45) L 01/16/20 08:00 [place] % (Auto) 7.3 % (3-13) 01/16/20 08:00 Eos % (Auto) 3.6 % (0-6) 01/16/20 08:00 Baso % (Auto) 0.8 % (0-2) 01/16/20 08:00 Absolute Neuts (auto) 13.1 10^3/uL (1.7-8.2) H 01/16/20 08:00 Absolute Lymphs (auto) 1.5 10^3/uL (0.5-4.7) 01/16/20 08:00 Absolute Monos (auto) 1.2 10^3/uL (0.1-1.4) 01/16/20 08:00 Absolute Eos (auto) 0.6 10^3/uL (0.0-0.6) 01/16/20 08:00 Absolute Basos (auto) 0.1 10^3/uL (0.0-0.2) 01/16/20 08:00 Seg Neutrophils % 79.3 % (42-78) H 01/16/20 08:00 PT 14.7 SEC (11.4-15.4) 01/16/20 08:00 INR 1.14 01/16/20 08:00 APTT 51.0 SEC (23.5-35.8) H 01/16/20 13:13 D-Dimer 0.75 ug/mL (0.00-0.50) H 01/15/20 09:15 VBG pH 7.35 (7.30-7.42) 01/14/20 21:35 VBG pCO2 51.1 mmHg (35-63) 01/14/20 21:35 VBG HCO3 27.3 mmol/L (20-32) 01/14/20 21:35 VBG Base Excess 0.9 mmol/L 01/14/20 21:35 Sodium 137.2 mmol/L (137-145) 01/18/20 06:47 Potassium 4.3 mmol/L (3.6-5.0) 01/18/20 06:47 Chloride 105 mmol/L (98-107) 01/18/20 06:47 Carbon Dioxide 25 mmol/L (22-30) 01/18/20 06:47 Anion Gap 7 (5-19) 01/18/20 06:47 BUN 52 mg/dL (7-20) H 01/18/20 06:47 Creatinine 3.38 mg/dL (0.52-1.25) H 01/18/20 06:47 Est GFR ( Amer) 23 (>60) L 01/18/20 06:47 Est GFR (MDRD) Non-Af 19 (>60) L 01/18/20 06:47 Glucose 228 mg/dL (75-110) H 01/18/20 06:47 POC Glucose 196 mg/dL (70-110) H 01/18/20 21:10 Lactic Acid 0.7 mmol/L (0.7-2.1) 01/15/20 08:02 Calcium 8.7 mg/dL (8.4-10.2) 01/18/20 06:47 Ferritin 247.00 ng/mL (17.9-464.0) 01/15/20 15:14 Total Bilirubin 0.4 mg/dL (0.2-1.3) 01/16/20 08:00 Direct Bilirubin 0.0 mg/dL (0.0-0.4) 01/16/20 08:00 Neonat Total Bilirubin Not Reportable 01/16/20 08:00 Neonat Direct Bilirubin Not Reportable 01/16/20 08:00 Neonat Indirect Bili Not Reportable 01/16/20 08:00 AST 14 U/L (17-59) L 01/16/20 08:00 ALT 8 U/L (<50) 01/16/20 08:00 Alkaline Phosphatase 82 U/L (38-126) 01/16/20 08:00 Lactate Dehydrogenase 183 U/L (120-246) 01/15/20 15:14 Creatine Kinase 38 U/L (55-170) L 01/15/20 15:14 CK-MB (CK-2) 1.66 ng/mL (<4.55) 01/15/20 15:14 Troponin I 0.303 ng/mL 01/15/20 15:14 C-Reactive Protein 160.7 mg/L (<10.0) H 01/15/20 15:14 NT-Pro-B Natriuret Pep 43600 pg/mL (<125) H 01/14/20 20:12 Total Protein 6.3 g/dL (6.3-8.2) 01/16/20 08:00 Albumin 2.9 g/dL (3.5-5.0) L 01/16/20 08:00 Urine Color YELLOW 01/15/20 04:30 Urine Appearance SLIGHTLY-CLOUDY 01/15/20 04:30 Urine pH 5.0 (5.0-9.0) 01/15/20 04:30 Ur Specific [place] 1.013 01/15/20 04:30 Urine Protein 30 mg/dL (NEGATIVE) H 01/15/20 04:30 Urine Glucose (UA) >=500 mg/dL (NEGATIVE) H 01/15/20 04:30 Urine Ketones NEGATIVE mg/dL (NEGATIVE) 01/15/20 04:30 Urine Blood NEGATIVE (NEGATIVE) 01/15/20 04:30 Urine Nitrite (Reflex) NEGATIVE (NEGATIVE) 01/15/20 04:30 Urine Bilirubin NEGATIVE (NEGATIVE) 01/15/20 04:30 Urine Urobilinogen NEGATIVE mg/dL (<2.0) 01/15/20 04:30 Leukocyte Esterase Rfl NEGATIVE (NEGATIVE) 01/15/20 04:30 Urine RBC (Auto) 1 /HPF 01/15/20 04:30 Urine Bacteria (Auto) TRACE /HPF 01/15/20 04:30 Urine WBC (Reflex) 2 /HPF 01/15/20 04:30 Squamous Epi Cells Auto <1 /HPF 01/15/20 04:30 Amorphous Sediment Auto TRACE /HPF 01/15/20 04:30 Urine Mucus (Auto) RARE /LPF 01/15/20 04:30 Urine Ascorbic Acid NEGATIVE (NEGATIVE) 01/15/20 04:30 COVID-19 Source NASOPHARYNGEAL 01/15/20 14:30 COVID-19 (CARLOS) NOT DETECTED 01/15/20 14:30 01/14/20 01/15/20 01/15/20 20:12 02:41 02:41 CK-MB (CK-2) 2.25 Troponin I 0.452 0.462 Cancelled NT-Pro-B Natriuret Pep 93465 H 01/15/20 01/15/20 08:02 15:14 CK-MB (CK-2) 1.63 1.66 Troponin I 0.348 0.303 NT-Pro-B Natriuret Pep Impressions: Chest X-Ray 01/14/20 20:37 IMPRESSION: Right lung diffuse pneumonia has developed compared to the prior study along with mild patchy left lower lobe pneumonia. Plan Plan of Treatment: Discharged home in stable conditions. Follow up with PCP within 1 week. Recommend outpatient PT for continued vestibular evaluation/treatment. Take medications as prescribed. Do not smoke or drink alcohol. Return to the emergency department as needed for concerning symptoms. Time Spent: Greater than 30 Minutes Stroke Is this a Stroke Patient?: No Acute Heart Failure - Is this a Heart Failure Patient?: No
== END 2020-01-19 10:22 | disposition home or self-care (01) | DRG 871 ==
LOC: ER 19:12 → EH 01-15 03:51 → 3S 01-15 10:32 → 3N 01-15 14:42 → 3W 01-18 02:57
PROVIDERS: ADMIT Emergency Medicine; ATTEND Registered Nurse
DX: A41.9 Sepsis, unspecified organism (principal); J18.9 Pneumonia, unspecified organism; J96.01 Acute respiratory failure with hypoxia; I21.A1 Myocardial infarction type 2; N17.9 Acute kidney failure, unspecified; N18.4 Chronic kidney disease, stage 4 (severe); I13.0 Hypertensive heart and chronic kidney disease with heart failure and stage 1 through stage 4 chronic kidney disease, or unspecified chronic kidney disease; D63.1 Anemia in chronic kidney disease; I50.9 Heart failure, unspecified; E11.22 Type 2 diabetes mellitus with diabetic chronic kidney disease; R65.20 Severe sepsis without septic shock; Y95 Nosocomial condition; E78.5 Hyperlipidemia, unspecified; M19.90 Unspecified osteoarthritis, unspecified site; E66.3 Overweight; F32.9 Major depressive disorder, single episode, unspecified; R42 Dizziness and giddiness; R11.2 Nausea with vomiting, unspecified; Z20.828 Contact with and (suspected) exposure to other viral communicable diseases; Z79.82 Long term (current) use of aspirin; Z79.4 Long term (current) use of insulin; Z79.899 Other long term (current) drug therapy; Z83.3 Family history of diabetes mellitus; Z88.2 Allergy status to sulfonamides; Z91.041 Radiographic dye allergy status; Z88.0 Allergy status to penicillin; Z91.013 Allergy to seafood; Z87.11 Personal history of peptic ulcer disease
CPT/HCPCS: 36415; 71045; 80048; 80053; 81001; 82550; 82553; 82728; 82803; 82962; 83605; 83615; 83880; 84484; 85025; 85027; 85379; 85610; 85730; 86140; 87040; 87635; 93005; 93010; 94640; 94660; 94667; 94668; 94799; 96361; 96365; 99291; 99292; C9113; C9803; J0456; J0692; J1644; J1815; J2020; J2405; J2550; J3490; J7030; J7060; J7120; J7614

== ENCOUNTER 2020-01-23 23:00 | Inpatient (IN) | payer OTHER, MEDICARE ==
[2020-01-24] MEDS ORDERED: ACETAMINOPHEN 325 MG TABLET PO ONE (00:11)
[2020-01-24] MEDS ORDERED: CEFEPIME 2 GM/D5W RTU 2 GM/50 ML RTUPB IV ONE (00:16)
[2020-01-24] MEDS ORDERED: LEVOFLOXACIN 750 MG/D5W RTU 750 MG/150 ML RTUPB IV ONE (00:16)
[2020-01-24 00:28] LABS: ABSOLUTE LYMPHOCYTES (AUTO) 0.8 10^3/uL (0.5-4.7); ABSOLUTE MONOCYTES (AUTO) 0.6 10^3/uL (0.1-1.4); ABSOLUTE NEUT (AUTO) 5.3 10^3/uL (1.7-8.2); BASOPHILS % (AUTO) 0.3 % (0-2); HEMATOCRIT 26.9 % (37.9-51.0); HEMOGLOBIN 8.8 g/dL (13.5-17.0); LYMPHOCYTES % (AUTO) 12.5 % (13-45); MEAN CORPUSCULAR HEMOGLOBIN 29.2 pg (27.0-33.4); MEAN CORPUSCULAR HGB CONC 32.8 g/dL (32.0-36.0); MEAN CORPUSCULAR VOLUME 89 fl (80-97); MONOCYTES % (AUTO) 8.8 % (3-13); PLATELET COUNT 264 10^3/uL (150-450); RED BLOOD COUNT 3.02 10^6/uL (4.35-5.55); RED CELL DISTRIBUTION WIDTH 14.9 % (11.5-14.0); SEGMENTED NEUTROPHILS % (AUTO) 78.4 % (42-78); TOTAL CELLS COUNTED % (AUTO) 100 %; WHITE BLOOD COUNT 6.7 10^3/uL (4.0-10.5)
[2020-01-24 00:35] LABS: INTERNATIONAL RATION (INR) 1.46; PROTHROMBIN TIME 17.9 SEC (11.4-15.4)
[2020-01-24 00:40] LABS: ALBUMIN 2.8 g/dL (3.5-5.0); ALKALINE PHOSPHATASE 140 U/L (38-126); ANION GAP 8 (5-19); ASPARTATE AMINO TRANSFERASE 44 U/L (17-59); BILIRUBIN,TOTAL 0.3 mg/dL (0.2-1.3); BLOOD UREA NITROGEN 55 mg/dL (7-20); CALCIUM 8.1 mg/dL (8.4-10.2); CARBON DIOXIDE 27 mmol/L (22-30); CHLORIDE 106 mmol/L (98-107); CREATINE KINASE 80 U/L (55-170); GLUCOSE 295 mg/dL (75-110); TOTAL PROTEIN 5.9 g/dL (6.3-8.2)
[2020-01-24 00:52] LABS: CREATINE KINASE MB 0.63 ng/mL (<4.55)
[2020-01-24 01:06] LABS: TROPONIN I 0.132 ng/mL
--- NOTE | 2020-01-24 01:06 | RADIOLOGY REPORT (SQ) ---
EXAM DESCRIPTION: XR CHEST 1 VIEW COMPLETED DATE/TME: 01/23/2020 23:18 CLINICAL HISTORY: 59 years, Male, SOB COMPARISON: 01/14/2020 chest NUMBER OF VIEWS: 1 TECHNIQUE: Portable chest LIMITATIONS: None. FINDINGS: The heart size is stable. Postsurgical change of the cervical spine. Extensive airspace opacities bilaterally consistent with bilateral pneumonia. Small right effusion and/or pleural thickening. No pneumothorax IMPRESSION: Extensive bilateral pneumonia copyright 2011 [employer]- All Rights Reserved
[2020-01-24 01:08] LABS: VENOUS BLOOD BASE EXCESS 1.1 mmol/L; VENOUS BLOOD HCO3 26.6 mmol/L (20-32); VENOUS BLOOD PCO2 46.4 mmHg (35-63); VENOUS BLOOD PH 7.38 (7.30-7.42)
--- NOTE | 2020-01-24 01:20 | ER Document Report ---
ED General - General Chief Complaint: Chest Pain Stated Complaint: SHORTNESS OF BREATH Time Seen by Provider: 01/24/20 00:12 Primary Care Provider: KWAN ELLSWORTH FNP-C [Primary Care Provider] - Follow up as needed Notes: 59-year-old male presents emergency department complaining of feeling more since being discharged from the hospital on 01/19/2028. Patient states that the room has been spinning since he has been discharged, the spinning only happens when he stands up but this prevents him from having eaten anything for the past 3 days because he cannot get to food or make himself food. He also complains that that he has no appetite and is occasionally vomiting however his vomiting has improved compared to when he was previously hospitalized. Patient complains of an intermittent productive cough that is worsening, intermittent chest pain that is also extending all over his entire body that he states is "unbearable" but cannot describe the type of the pain. States that it is in the same distrib ution his chronic pain but it is worse than his chronic pain. Of note patient was recently discharged from the hospital on oral antibiotics for healthcare acquired pneumonia, also had acute renal failure, non-STEMI and congestive heart failure. Does not use oxygen at home. Patient was COVID negative during his hospitalization. TRAVEL OUTSIDE OF THE [place] IN LAST 30 DAYS: No - Related Data Allergies/Adverse Reactions: iodine Allergy (Verified 01/23/20 23:19) Penicillins Allergy (Verified 01/23/20 23:19) shellfish derived Allergy (Verified 01/23/20 23:19) Sulfa (Sulfonamide Antibiotics) Allergy (Verified 01/23/20 23:19) Past Medical History - General Information source: Patient - Social History Smoking Status: Never Smoker Chew tobacco use (# tins/day): No Frequency of alcohol use: None Drug Abuse: None Family History: DM Patient has homicidal ideation: No - Past Medical History Cardiac Medical History: Reports: Hx Congestive Heart Failure Denies: Hx Coronary Artery Disease, Hx Hypercholesterolemia, Hx Hypertension Pulmonary Medical History: Denies: Hx Asthma, Hx COPD, Hx Respiratory Failure Neurological Medical History: Denies: Hx Seizures Endocrine Medical History: Reports: Hx Diabetes Mellitus Type 2 Renal/ Medical History: Reports: Hx End Stage Renal Disease - Recently diagnosed with stage IV CKD GI Medical History: Denies: Hx Cirrhosis, Hx Hepatitis Musculoskeletal Medical History: Reports Hx Arthritis, Denies Hx Gout Skin Medical History: Denies Hx Eczema, Denies Hx Psoriasis Psychiatric Medical History: Reports: Hx Depression Infectious Medical History: Denies: Hx Hepatitis Past Surgical History: Reports: Hx Orthopedic Surgery - Multiple surgeries, Other - Multiple orthopedic surgeries Review of Systems - Review of Systems Constitutional: See HPI, Malaise, Weakness EENT: No symptoms reported Cardiovascular: See HPI, Chest pain, Dizziness Respiratory: See HPI, Cough, Short of breath. denies: Hurts to breathe Gastrointestinal: Nausea, Vomiting, Poor appetite, Poor fluid intake. denies: Abdominal pain, Diarrhea Genitourinary: No symptoms reported Musculoskeletal: See HPI - Pain all over his entire body. Neurological/Psychological: See HPI - world spinning on standing, does not change with rolling over. -: Yes All other systems reviewed and negative Physical Exam - Vital signs Vitals: Pulse Ox 85 L 01/23/20 23:23 Interpretation: Hypoxic - Hypoxia was 85% on room air, went to 97% on 2 L via nasal cannula., Febrile - Notes Notes: GENERAL: Somewhat slow to answer questions and fall silent quickly while I am talking to him, when nurse Maxx Marie walks into the room patient opens his eyes and holds a full conversation with him without any difficulty and has no trouble following commands for him. No acute distress. HEAD: Normocephalic, atraumatic EYES: Pupils equal, round and reactive to light, extraocular movements intact. ENT: Oral mucosa moist, tongue midline. NECK: Full range of motion, supple, trachea midline. LUNGS: Inspiratory rhonchi, trace expiratory wheezing, trace crackles, no respiratory distress. HEART: Regular rate and rhythm, no murmurs, gallops, rubs. ABDOMEN: Soft, nontender, nondistended, bowel sounds present in all 4 quadrants. EXTREMITIES: Moves all 4 extremities spontaneously, no edema, radial and dorsalis pedis pulses 2/4 bilaterally. No cyanosis. NEUROLOGICAL: Oriented x3, normal speech, cranial nerves II through XII grossly intact, biceps and patellar DTRs 2+ bilaterally. PSYCH: Appears somewhat irritated when I speak with him, normal affect when speaking with male nurse. SKIN: Warm, Dry, normal turgor. Course - Re-evaluation Re-evalutation: 01/24/20 01:20 CBC shows anemia with hemoglobin 8.8, this is slightly worsened compared to 7/3, no leukocytosis, venous blood gas unremarkable, CMP shows continuing renal f ailure with a BUN of 55 and a creatinine of 3.48, troponin is improved at 0.132, downtrending as expected, this will be repeated to make sure that it is not continuing upward, proBNP elevated at 17,700, improved compared to the 28th. Chest x-ray shows extensive bilateral pneumonia. Given his persistent fever, his new supplemental oxygen requirement and worsening pneumonia that is now bilateral compared to right sided I suspect patient will need to be re-admitted. I will wait for the repeat troponin. 01/24/20 01:23 Last height recorded in the computer is 5 foot 7 inches, this gives you an ideal body weight of 140 pounds, that would be 63.6 kg, which x30 mL/kg is 1909 mL's of fluid. I will use this to satisfy the fluid requirement for sepsis rather than basing it off of his actual body weight which is 79.8 kg. 01/24/20 01:24 01/24/20 04:47 Troponin is pending. Patient is now hypotensive with a blood pressure of 90 systolic, nursing informs me that 2 hours ago he was placed on a nonrebreather for hypoxia, while I am talking to him during reexamination he is sleepier than he was before, I am concerned he may be developing some CO2 narcosis from potentially undiagnosed COPD, despite no smoking history. Patient will be placed on BiPAP. ABG will be checked. 01/24/20 04:53 01/24/20 04:55 Patient will be moved to the main side of the department for closer monitoring. 01/24/20 05:39 Troponin is unchanged. Patient does have continuing hypotension with a pressure of 88/68. Patient will be discussed with security delivery specialist for admission to the ICU given his increasing oxygen requirement and his worsening mental status and his hypotension. Currently ADRIAN Rolon is attending a rapid response and cannot speak with me. 01/24/20 05:55 Patient now in bed 6, much more awake, appears more comfortable, being started on BiPAP now. Blood pressure is 85/65, nursing will recheck a manual pressure. 01/24/20 05:56 ABG does not show any CO2 retention, oxygen saturation is 93.5%, PO2 is somewhat low at 67.3. 01/24/20 06:20 Discussed with Anthony Moreno PA-C, agrees to admit the patient to the ICU. - Vital Signs Vital signs: Temp Pulse Resp BP Pulse Ox 98.5 F 72 11 L 85/65 L 93 01/24/20 05:01 01/24/20 04:26 01/24/20 05:51 01/24/20 05:51 01/24/20 05:51 - Laboratory Result Diagrams: 01/24/20 00:03 01/24/20 00:03 Laboratory results interpreted by me: 01/24/20 01/24/20 01/24/20 00:03 00:03 00:03 RBC 3.02 L Hgb 8.8 L Hct 26.9 L RDW 14.9 H Lymph % (Auto) 12.5 L Seg Neutrophils % 78.4 H PT ABG pO2 ABG HCO3 ABG O2 Saturation BUN 55 H Creatinine 3.48 H Est GFR ( Amer) 22 L Est GFR (MDRD) Non-Af 18 L Glucose 295 H POC Glucose Calcium 8.1 L Alkaline Phosphatase 140 H NT-Pro-B Natriuret Pep 20221 H Total Protein 5.9 L Albumin 2.8 L 01/24/20 01/24/20 01/24/20 00:03 04:29 05:16 RBC Hgb Hct RDW Lymph % (Auto) Seg Neutrophils % PT 17.9 H ABG pO2 67.3 L ABG HCO3 24.2 H ABG O2 Saturation 93.5 L BUN Creatinine Est GFR ( Amer) Est GFR (MDRD) Non-Af Glucose POC Glucose 223 H Calcium Alkaline Phosphatase NT-Pro-B Natriuret Pep Total Protein Albumin - EKG Interpretation by Me Additional EKG results interpreted by me: 01/24/20 04:54 EKG shows sinus rhythm at a rate of 93, slight left axis deviation, borderline prolonged QT interval with QT corrected of 478, no ST segment elevations or depressions, poor R wave progression, T wave flattening in aVL and V3 through V6 per my interpretation. Critical Care Note - Critical Care Note Total time excluding time spent on procedures (mins): 65 Discharge - Discharge Clinical Impression: Septic shock, Orthostatic dizziness, CKD stage 4 due to type 2 diabetes mellitus, Elevated troponin level, HCAP (healthcare-associated pneumonia) Acute CHF Qualifiers: Heart failure type: unspecified Qualified Code(s): I50.9 - Heart failure, unspecified Condition: Serious Disposition: ADMITTED INPATIENT Referrals: KWAN ELLSWORTH FNP-C [Primary Care Provider] - Follow up as needed
[2020-01-24] MEDS ORDERED: FUROSEMIDE INJ/PF 40 MG/4 ML SDV IV ONE (01:21)
[2020-01-24] MEDS ORDERED: RINGERS SOLUTION,LACTATED 1,000 ML IV ONE ×2 (01:21→04:35)
[2020-01-24 05:51] LABS: ARTERIAL BLOOD BASE EXCESS -0.5 mmol/L; ARTERIAL BLOOD FIO2 4L; ARTERIAL BLOOD H2CO3 1.19 mmol/L (1.05-1.35); ARTERIAL BLOOD HCO3 24.2 mmol/L (20-24); ARTERIAL BLOOD O2 SATURATION 93.5 % (94-98); ARTERIAL BLOOD PCO2 39.7 mmHg (35-45); ARTERIAL BLOOD PO2 67.3 mmHg (80-100); ARTERIAL BLOOD TOTAL CO2 25.4 mmol/L (23-27)
--- NOTE | 2020-01-24 07:39 | EKG REPORT ---
SEVERITY:- ABNORMAL ECG - SINUS RHYTHM PROBABLE LEFT ATRIAL ABNORMALITY CONSIDER ANTEROSEPTAL INFARCT BORDERLINE T ABNORMALITIES, ANTERIOR LEADS BORDERLINE PROLONGED QT INTERVAL : Confirmed by: Moe Barrientos MD 24-Jan-2020 07:39:15
--- NOTE | 2020-01-24 07:59 | CRITICAL CARE ADMISSION REPORT ---
HPI Date:: 01/24/20 Time:: 07:00 Reason for ICU Reason:: Respiratory insufficiency, hemodynamic instability. Admission Date/Time & PCP: Admission Date/Time: Primary Care Provider: GOLD ELENA HPI: 59-year-old male, history of poorly controlled DM 2, HTN, CHF, narcotic dependence from chronic arthritis, CKD recently admitted to [facility] on 01/05/2020 for ZURDO and hyperkalemia and was discharged on 01/11/2020. Patient then returned to the ED on 01/15/2020 and was admitted for nausea vomiting associated with fatigue and dizziness. Troponins were elevated at that time with a proBNP of 29,000. During his hospital stay he was treated for pneumonia and hypoxemia which resolved. He also had a non-ST elevated SD which was thought to be related to demand ischemia in the setting of pneumonia and sepsis with poor clearance of troponins related to his CKD. Baseline creatinine is 3.2. Patient was discharged again on 01/19/2020 and returned to the emergency department on 01/23/2020 complaining of orthostatic hypotension, persistent dizziness, fever and shortness of breath. proBNP was again elevated to 17,700, Creatinine seems to be only mildly elevated from baseline. While in the ED, patient became hypotensive to 90/60 with increased O2 requirements and at one point had become unresponsive. He was placed on BiPAP which improved his respiratory status and he is now more awake and alert. He was given 2 L of LR and started on cefepime and Levaquin. Critical care was consulted to evaluate patient for admission to the intensive care unit. We will admit him to the ICU for further work-up and treatment given his respiratory and hemodynamic instability. History obtained from:: Medical record, physician report. - Diagnosis/Plan (1) Acute hypoxemic respiratory failure Is this a current diagnosis for this admission?: Yes Plan: Patient placed on BiPAP with some improvement in mental status. CXR shows bilateral pneumonia. -Repeat COVID test for this admission. Attempt to wean to high flow nasal cannula. Continue Levaquin and cefepime for possible nosocomial pneumonia Obtain sputum cultures (2) Orthostatic dizziness Is this a current diagnosis for this admission?: Yes Plan: Hypotension likely related to hypovolemia in the setting of several days of anorexia. Continue fluid volume resuscitation. Monitor proBNP in the setting of CHF. Evaluate cortisol level given his multiple hospitalizations and chronic illness, prolonged stress response. If decreased, we will start on prednisone. Past Medical History Cardiac Medical History: Reports: Congestive Heart Failure Denies: Coronary Artery Disease, Hyperlipidema, Hypertension Pulmonary Medical History: Denies: Asthma, Chronic Obstructive Pulmonary Disease (COPD), Respiratory Failure Neurological Medical History: Denies: Seizures Endocrine Medical History: Reports: Diabetes Mellitus Type 2 Renal/ Medical History: Reports: Chronic Kidney Disease GI Medical History: Denies: Cirrhosis, Hepatitis Musculoskeltal Medical History: Reports: Arthritis Denies: Gout Skin Medical History: Denies: Eczema, Psoriasis Psychiatric Medical History: Reports: Depression Hematology: Reports: Anemia - Recently diagnosed Denies: Bleeding Tendencies Past Surgical History Past Surgical History: Reports: Orthopedic Surgery - Multiple surgeries, Other - Multiple orthopedic surgeries Social/Family History - Social History Smoking Status: Never Smoker Frequency of Alcohol Use: None Hx Recreational Drug Use: No Drugs: None Hx Prescription Drug Abuse: No - Medication/Allergies Home Medications: Meloxicam [Mobic 7.5 mg Tablet] 7.5 mg PO Q12HP PRN 01/06/20 Oxycodone HCl [Oxy-Ir 5 mg Tablet] 15 mg PO Q6 01/06/20 Acetaminophen [Tylenol 325 mg Tablet] 650 mg PO Q6HP PRN tablet 01/19/20 Aspirin [Aspirin 81 mg Chewable Tablet] 81 mg PO QHS #0 tab.chew 01/19/20 Atorvastatin Calcium [Lipitor 20 mg Tablet] 20 mg PO QHS #30 tablet 01/19/20 Cefpodoxime Proxetil [Vantin 200 mg Tablet] 200 mg PO Q12 #12 tablet 01/19/20 Gabapentin [Neurontin 100 mg Capsule] 200 mg PO Q8 #180 capsule 01/19/20 Insulin Glargine,Hum.rec.anlog [Lantus Insulin 100 Unit/1 ml 10 ml] 10 unit SUBCUT DAILY #1 vial 01/19/20 Metoprolol Tartrate [Lopressor 25 mg Tablet] 12.5 mg PO Q12 #15 tablet 01/19/20 Ondansetron [Zofran Odt 4 mg Tablet] 1 - 2 tab PO Q4HP PRN #10 tab.rapdis 01/19/20 Allergies/Adverse Reactions: iodine Allergy (Verified 01/23/20 23:19) Penicillins Allergy (Verified 01/23/20 23:19) shellfish derived Allergy (Verified 01/23/20 23:19) Sulfa (Sulfonamide Antibiotics) Allergy (Verified 01/23/20 23:19) Review of Systems ROS unobtainable: Other - Difficult to communicate on BiPAP mask. Constitutional: PRESENT: anorexia, fatigue, fever(s) Neurological: PRESENT: dizziness, weakness Physical Exam Vital Signs: Temp Pulse Resp BP Pulse Ox 98.5 F 72 3 L 95/67 L 95 01/24/20 05:01 01/24/20 04:26 01/24/20 06:58 01/24/20 06:59 01/24/20 06:59 Intake & Output 01/23/20 01/24/20 01/25/20 06:59 06:59 06:59 Intake Total 1200 1000 Balance 1200 1000 General appearance: PRESENT: cooperative, mild distress Head exam: PRESENT: atraumatic, normocephalic Eye exam: PRESENT: EOMI, PERRLA Ear exam: PRESENT: normal external ear exam. ABSENT: drainage Mouth exam: PRESENT: neck supple Neck exam: PRESENT: full ROM. ABSENT: JVD Respiratory exam: PRESENT: other - Breath sounds diminished bilaterally. Cardiovascular exam: PRESENT: RRR, +S1, +S2 Pulses: PRESENT: normal dorsalis pedis pul, +2 pedal pulses bilateral Vascular exam: PRESENT: normal capillary refill GI/Abdominal exam: PRESENT: hypoactive bowel sounds Extremities exam: PRESENT: joint swelling Musculoskeletal exam: PRESENT: full ROM Neurological exam: PRESENT: alert, awake, CN II-XII grossly intact Psychiatric exam: PRESENT: flat affect Skin exam: PRESENT: normal color Laboratory/Radiographs Laboratory Results: 01/24/20 00:03 01/24/20 00:03 01/24/20 01/24/20 01/24/20 00:03 00:03 00:52 WBC 6.7 RBC 3.02 L Hgb 8.8 L Hct 26.9 L MCV 89 MCH 29.2 MCHC 32.8 RDW 14.9 H Plt Count 264 Seg Neutrophils % 78.4 H Carbonic Acid HCO3/H2CO3 Ratio ABG pH ABG pCO2 ABG pO2 ABG HCO3 ABG O2 Saturation ABG Base Excess VBG pH 7.38 VBG pCO2 46.4 VBG HCO3 26.6 VBG Base Excess 1.1 FiO2 Sodium 141.0 Potassium 4.0 Chloride 106 Carbon Dioxide 27 Anion Gap 8 BUN 55 H Creatinine 3.48 H Est GFR ( Amer) 22 L Glucose 295 H Lactic Acid Calcium 8.1 L Total Bilirubin 0.3 AST 44 Alkaline Phosphatase 140 H Total Protein 5.9 L Albumin 2.8 L 01/24/20 01/24/20 01/24/20 00:52 04:20 05:16 WBC RBC Hgb Hct MCV MCH MCHC RDW Plt Count Seg Neutrophils % Carbonic Acid 1.19 HCO3/H2CO3 Ratio 20:1 ABG pH 7.40 ABG pCO2 39.7 ABG pO2 67.3 L ABG HCO3 24.2 H ABG O2 Saturation 93.5 L ABG Base Excess -0.5 VBG pH VBG pCO2 VBG HCO3 VBG Base Excess FiO2 4L Sodium Potassium Chloride Carbon Dioxide Anion Gap BUN Creatinine Est GFR ( Amer) Glucose Lactic Acid 1.5 0.7 Calcium Total Bilirubin AST Alkaline Phosphatase Total Protein Albumin 01/24/20 01/24/20 01/24/20 00:03 00:03 04:20 Creatine Kinase 80 CK-MB (CK-2) 0.63 Troponin I 0.132 0.133 NT-Pro-B Natriuret Pep [id number] H Impressions: Chest X-Ray 01/23/20 23:18 IMPRESSION: Extensive bilateral pneumonia copyright 2011 [employer]- All Rights Reserved All labs, radiographs, diagnostic studies and EKGs were personally reviewed: Yes In addition, reports of radiographic and diagnostic studies were read: Yes Critical Time Critical Time (minutes): 68 -: The care of a critically ill patient is dynamic. This note represents a static moment in the admission process. Orders and treatments may be given simultaneously and urgently, and time is not retention representative of the treatment process. This patient requires Critical Care secondary to life threatening organ or limb dysfunction. Without Critical Care services, the patient is at risk for increased mortality and morbidity.
[2020-01-24] MEDS ORDERED: CEFEPIME 2 GM/D5W RTU 2 GM/50 ML RTUPB IV SCH (10:00)
[2020-01-24 11:03] LABS: HEMATOCRIT 29.5 % (37.9-51.0); HEMOGLOBIN 9.7 g/dL (13.5-17.0); MEAN CORPUSCULAR HEMOGLOBIN 29.1 pg (27.0-33.4); MEAN CORPUSCULAR HGB CONC 32.8 g/dL (32.0-36.0); MEAN CORPUSCULAR VOLUME 89 fl (80-97); PLATELET COUNT 264 10^3/uL (150-450); RED BLOOD COUNT 3.32 10^6/uL (4.35-5.55); WHITE BLOOD COUNT 5.9 10^3/uL (4.0-10.5)
[2020-01-24 11:29] LABS: TROPONIN I 0.114 ng/mL
[2020-01-24] MEDS ORDERED: OXYCODONE HCL IR 5 MG TABLET PO PRN ×3 (11:55→15:23)
[2020-01-24] MEDS: RINGERS SOLUTION,LACTATED 1,000 ML IV PRN (12:53)
[2020-01-24] MEDS: HYDROCORTISONE SOD SUCCINATE INJ/PF 100 MG/2 ML SDV IV SCH ×2 (12:53→21:18)
[2020-01-24] MEDS: HEPARIN SOD (PORCINE) 5,000 UNIT/ML 1 ML VIAL SUBCUT SCH ×2 (13:14→20:59)
--- NOTE | 2020-01-24 15:28 | Progress Note ---
Provider Note Provider Note: This patient was stable, awake and ready for transfer to the medical floor. About 3 PM he became hypoxic to a saturation of 78% for no apparent reason. He is doing better on bipap. He is coherent and talking. This could be from a number of causes including COVID. Test not back yet.
[2020-01-24] MEDS ORDERED: ONDANSETRON HCL INJ/PF 4 MG/2 ML SDV ONE (19:54)
[2020-01-24] MEDS ORDERED: ONDANSETRON HCL INJ/PF 4 MG/2 ML SDV IV PRN (19:56)
[2020-01-24] MEDS: MORPHINE SULFATE 10 MG/ML INJ IV PRN (21:15)
[2020-01-24] MEDS: CEFEPIME HCL 2 GM in DEXTROSE 5%-WATER 50 ML IV SCH (21:17)
[2020-01-24] MEDS: GABAPENTIN 100 MG CAPSULE PO SCH (21:19)
[2020-01-25] MEDS: MORPHINE SULFATE 10 MG/ML INJ IV PRN (00:15)
[2020-01-25] MEDS ORDERED: OXYCODONE HCL SR 10 MG TABLET PO ONE ×3 (01:38→05:36)
[2020-01-25] MEDS ORDERED: LORAZEPAM INJ 2 MG/1 ML VIAL ONE (01:45)
[2020-01-25] MEDS: LORAZEPAM INJ 2 MG/1 ML VIAL IV PRN ×3 (01:57→18:24)
[2020-01-25] MEDS: RINGERS SOLUTION,LACTATED 1,000 ML IV PRN ×3 (02:00→19:15)
[2020-01-25] MEDS: HYDROCORTISONE SOD SUCCINATE INJ/PF 100 MG/2 ML SDV IV SCH ×3 (06:01→22:11)
[2020-01-25] MEDS: OXYCODONE HCL SR 10 MG TABLET PO SCH ×4 (06:01→21:59)
[2020-01-25] MEDS: HEPARIN SOD (PORCINE) 5,000 UNIT/ML 1 ML VIAL SUBCUT SCH ×3 (06:02→22:09)
[2020-01-25] MEDS: GABAPENTIN 100 MG CAPSULE PO SCH ×3 (06:02→22:10)
--- NOTE | 2020-01-25 08:07 | RADIOLOGY REPORT (SQ) ---
EXAM DESCRIPTION: CHEST SINGLE VIEW IMAGES COMPLETED DATE/TIME: 01/25/2020 5:54 am REASON FOR STUDY: Bilateral pneumonia COMPARISON: 01/24/2020 EXAM PARAMETERS: NUMBER OF VIEWS: One view. TECHNIQUE: Single frontal radiographic view of the chest acquired. RADIATION DOSE: NA LIMITATIONS: None. FINDINGS: LUNGS AND PLEURA: Today's examination demonstrates increasing diffuse airspace opacities n oting marked increase in right upper lobe, left upper lobe/ lingula involvement. Bilateral pleural e ffusions (right more so than left) no pneumothorax. MEDIASTINUM AND HILAR STRUCTURES: No masses. Contour normal. HEART AND VASCULAR STRUCTURES: Heart normal in size. Normal vasculature. BONES: No acute findings. HARDWARE: Partially imaged cervicothoracic junction ACDF hardware appears grossly stable. OTHER: No other significant finding. IMPRESSION: Increasing diffuse airspace opacities consistent with multi lobar pneumonia. TECHNICAL DOCUMENTATION: JOB ID: [id number] 2010 [employer]- All Rights Reserved Reading location - IP/workstation name: [email or web address]
[2020-01-25 11:23] LABS: ANION GAP 16 (5-19); BLOOD UREA NITROGEN 67 mg/dL (7-20); CALCIUM 8.2 mg/dL (8.4-10.2); CARBON DIOXIDE 22 mmol/L (22-30); CHLORIDE 102 mmol/L (98-107); GLUCOSE 281 mg/dL (75-110); POTASSIUM 4.8 mmol/L (3.6-5.0)
[2020-01-25] MEDS ORDERED: DEXTROSE 40% GEL 15 GM TUBE PO PRN ×2 (11:45)
[2020-01-25] MEDS ORDERED: GLUCAGON,HUMAN RECOMB 1 MG INJ IM PRN (11:45)
[2020-01-25] MEDS ORDERED: DEXTROSE 50%-WATER 25 GM/50 ML DISP.SYRIN IV PRN ×2 (11:45)
--- NOTE | 2020-01-25 11:52 | PDOC CRITICAL CARE PROG REPORT ---
General Date:: 01/25/20 ICU Day:: 2 Hospital Day:: 2 Resuscitation Status: Full Code Events in the past 12 to 24 Hours:: Oxygen saturation has been very labile overnight from anywhere from 79% to 92% on BiPAP. Patient was on 80% FiO2 overnight and this was decreased to 70% FiO2 this morning. He is alert and oriented. Reason for ICU Addmission:: Respiratory insufficiency, hemodynamic instability. Physical Exam Vital Signs: Temp Pulse Resp BP Pulse Ox 99.5 F 76 11 L 146/90 H 95 01/24/20 22:00 01/25/20 09:08 01/25/20 08:26 01/25/20 08:26 01/25/20 08:26 Intake & Output 01/24/20 01/25/20 01/26/20 06:59 06:59 06:59 Intake Total 1200 2000 Output Total 311 Balance 1200 1689 Weight 76.7 kg Weight/Height Weight 76.7 kg Height 5 ft 7 in General appearance: PRESENT: no acute distress, well-developed, well-nourished Head exam: PRESENT: atraumatic, normocephalic Eye exam: PRESENT: PERRLA Mouth exam: PRESENT: dry mucosa Neck exam: PRESENT: full ROM Respiratory exam: PRESENT: rhonchi - Throughout all lung barnett, tachypnea Cardiovascular exam: PRESENT: +S1, +S2 Pulses: PRESENT: normal radial pulses, normal dorsalis pedis pul Vascular exam: PRESENT: pallor GI/Abdominal exam: PRESENT: normal bowel sounds Neurological exam: PRESENT: alert, awake, oriented to person, oriented to place, oriented to time, oriented to situation Psychiatric exam: PRESENT: flat affect Skin exam: PRESENT: pallor Laboratory/Radiographs Laboratory Results: 01/24/20 10:43 01/25/20 08:39 01/24/20 01/25/20 10:43 08:39 WBC 5.9 RBC 3.32 L Hgb 9.7 L Hct 29.5 L MCV 89 MCH 29.1 MCHC 32.8 RDW 15.0 H Plt Count 264 Sodium Cancelled Potassium Cancelled Chloride Cancelled Carbon Dioxide Cancelled Anion Gap Cancelled BUN Cancelled Creatinine Cancelled Est GFR ( Amer) Cancelled Est GFR (Non-Af Amer) Cancelled Glucose Cancelled Calcium Cancelled 01/24/20 01/24/20 01/24/20 00:03 00:03 04:20 Creatine Kinase 80 CK-MB (CK-2) 0.63 Troponin I 0.132 0.133 NT-Pro-B Natriuret Pep [id number] H 01/24/20 01/24/20 01/24/20 10:43 17:19 23:06 Creatine Kinase CK-MB (CK-2) Troponin I 0.114 0.079 0.075 NT-Pro-B Natriuret Pep [id number] H Impressions: Chest X-Ray 01/25/20 06:00 IMPRESSION: Increasing diffuse airspace opacities consistent with multi lobar pneumonia. All labs, radiographs, diagnostic studies and EKGs were personally reviewed: Yes In addition, reports of radiographic and diagnostic studies were read: Yes Assessment and Plan - Diagnosis (1) Acute hypoxemic respiratory failure Is this a current diagnosis for this admission?: Yes Plan: Continue BiPAP as tolerated. Continue cefepime for hospital-acquired pneumonia. COVID-19 test pending. (2) Acute CHF Qualifiers: Heart failure type: unspecified Qualified Code(s): I50.9 - Heart failure, unspecified Is this a current diagnosis for this admission?: Yes Plan: Monitor BNP. Hold off on diuretics at this time to prevent hypotension from possible septic pneumonia. (3) Pneumonia Qualifiers: Pneumonia type: due to unspecified organism Laterality: right Lung location: unspecified part of lung Qualified Code(s): J18.9 - Pneumonia, unspecified organism Is this a current diagnosis for this admission?: Yes Plan: Continue cefepime. (4) Chronic pain Qualifiers: Chronic pain type: other chronic pain Qualified Code(s): G89.29 - Other chronic pain Is this a current diagnosis for this admission?: Yes Plan: Continue current home medications for chronic pain due to arthritis. (5) Nausea Is this a current diagnosis for this admission?: Yes Plan: Increase Zofran to 8 mg IV as needed. (6) Hypertension Is this a current diagnosis for this admission?: Yes Plan: Stable. Will monitor vital signs. Blood pressure 127/85. (7) Diabetes mellitus type 2 in nonobese Is this a current diagnosis for this admission?: Yes Plan: Accu-Cheks every 6 hours. Sliding scale insulin. Daily BMPs. (8) CKD stage 4 due to type 2 diabetes mellitus Is this a current diagnosis for this admission?: Yes Plan: Stable. Continue to monitor daily BMPs. Plan Summary: We will continue to use BiPAP as tolerated, as intubating may be more detrimental to the patient's condition. Awaiting COVID-19 results. Continue cefepime for pneumonia. Critical Time Critical Time (minutes): 30 Level of Care: ICU Anticipated discharge: Home -: 1. The care of a critical patient is a dynamic process. This note is a rep resentative synopsis but static in nature. The timeframe for treatments given in order is not necessarily the actual time these treatments may have been done. 2. This patient requires critical care secondary to ongoing requirements for therapy not offered or safe outside the critical care environment. Transfer to a lower level of care will result in altered life or limb morbidity and mortality. 3. Multidisciplinary rounds completed. 4. ABCDE bundle addressed.
--- NOTE | 2020-01-25 12:16 | Progress Note ---
Provider Note Provider Note: I also have seen this patient with ALFONSO Mcelroy. He is essentially unchanged. However his CXR shows bilateral infiltrates worse than yesterday. His COVID test is still pending. This is certainly a possibility. However he also states he has been nauseous today and in previous days although it seems he has told no one including the nursing staff. He states he has tried to hold back on vomiting which may explain an aspiration pattern on his CXR. Zofran will be given. NB: Bipap can exacerbate aspiration risk but as of now he needs this and in not ready for intubation.
[2020-01-25] MEDS: ONDANSETRON HCL INJ/PF 4 MG/2 ML SDV IV PRN (13:40)
[2020-01-25] MEDS: INSULIN REG, HUMAN 100 UNIT/ML 3 ML VIAL (PYX) SUBCUT SCH ×2 (13:58→18:25)
[2020-01-25] MEDS ORDERED: OXYCODONE HCL SR 10 MG TABLET PO SCH (18:00)
[2020-01-25] MEDS: CEFEPIME HCL 2 GM in DEXTROSE 5%-WATER 50 ML IV SCH (22:10)
--- NOTE | 2020-01-26 00:27 | CDI QUERY ---
CDI Query CDI Review: Documentation in the medical record indicates this patient is being treated for Acute Heart Failure. Noted in Critical Care Admission Notes: Monitor proBNP in the setting of CHF BNP 55511 Echo report from 01/08/2020 (previous admission) Interpretation Summary: Left ventricular systolic function is normal The EF estimate 55-60% The right ventricle is grossly normal size There is a trace amount of mitral regurgitation There is a trace amount of tricuspid regurgitation Doppler measurement suggest pseudonormalized left ventricular relaxation which is associated with grade II / IV or mild to moderate diastolic dysfunction Based on your medical judgement, please further clarify in the Progress Notes the Type of CHF for this admission: Acute Diastolic CHF Acute on chronic Diastolic CHF Acute Systolic CHF Acute on chronic Systolic CHF Acute Systolic / Diastolic CHF Acute on chronic Systolic / Diastolic CHF Unable to determine Other Thank you for your consideration. VIVEK Parikh RN Clinical Supervisor [facility] Physician Advisor [email or web address]
[2020-01-26] MEDS: INSULIN REG, HUMAN 100 UNIT/ML 3 ML VIAL (PYX) SUBCUT SCH ×5 (00:46→23:18)
[2020-01-26] MEDS: RINGERS SOLUTION,LACTATED 1,000 ML IV PRN ×3 (03:15→21:12)
[2020-01-26] MEDS: OXYCODONE HCL SR 10 MG TABLET PO SCH ×4 (03:39→21:01)
[2020-01-26] MEDS: GABAPENTIN 100 MG CAPSULE PO SCH ×3 (05:55→21:01)
[2020-01-26] MEDS: HEPARIN SOD (PORCINE) 5,000 UNIT/ML 1 ML VIAL SUBCUT SCH ×3 (05:55→21:02)
[2020-01-26] MEDS ORDERED: FUROSEMIDE INJ/PF 40 MG/4 ML SDV IV ONE (07:29)
[2020-01-26] MEDS ORDERED: FUROSEMIDE INJ/PF 100 MG/10 ML SDV IV ONE (08:00)
--- NOTE | 2020-01-26 08:44 | PDOC CRITICAL CARE PROG REPORT ---
General Date:: 01/26/20 ICU Day:: 2 Hospital Day:: 12 Resuscitation Status: Full Code Events in the past 12 to 24 Hours:: Clinically looking better. CXR worse. COVID test returned positive. Review of systems relevant to events:: Pulmonary Reason for ICU Addmission:: Respiratory insufficiency - Medications: Medications reviewed and adjusted accordingly: Yes Vasopressors:: None Sedation:: None Physical Exam Vital Signs: Temp Pulse Resp BP Pulse Ox 96.9 F L 80 16 141/94 H 97 01/26/20 06:00 01/26/20 07:44 01/26/20 06:00 01/26/20 06:00 01/26/20 06:00 Intake & Output 01/25/20 01/26/20 01/27/20 06:59 06:59 06:59 Intake Total 2049 1999 Output Total 311 1700 Balance 1739 300 Weight 76.7 kg 76.8 kg Weight/Height Weight 76.8 kg Height 5 ft 7 in General appearance: PRESENT: no acute distress, cooperative, thin Head exam: PRESENT: atraumatic, normocephalic Eye exam: PRESENT: conjunctiva pink, EOMI, PERRLA. ABSENT: scleral icterus Ear exam: PRESENT: normal external ear exam Mouth exam: PRESENT: moist, tongue midline Respiratory exam: PRESENT: clear to auscultation yousif. ABSENT: rales, wheezes Cardiovascular exam: PRESENT: RRR. ABSENT: diastolic murmur, rubs, systolic murmur GI/Abdominal exam: PRESENT: normal bowel sounds, soft. ABSENT: distended, guarding, mass, organolmegaly, rebound, tenderness Rectal exam: PRESENT: deferred Gentrourinary exam: PRESENT: indwelling catheter Extremities exam: PRESENT: full ROM. ABSENT: calf tenderness, clubbing, pedal edema Musculoskeletal exam: PRESENT: normal inspection Neurological exam: PRESENT: alert, awake, oriented to person, oriented to place, oriented to time, oriented to situation, CN II-XII grossly intact. ABSENT: motor sensory deficit Psychiatric exam: PRESENT: appropriate affect, normal mood. ABSENT: homicidal ideation, suicidal ideation Skin exam: PRESENT: dry, intact, warm. ABSENT: cyanosis, rash Laboratory/Radiographs Laboratory Results: 01/24/20 10:43 01/25/20 10:50 07/09/20 07/09/20 08:39 10:50 Sodium Cancelled 140.2 Potassium Cancelled 4.8 Chloride Cancelled 102 Carbon Dioxide Cancelled 22 Anion Gap Cancelled 16 BUN Cancelled 67 H Creatinine Cancelled 3.77 H Est GFR ( Amer) Cancelled 20 L Est GFR (Non-Af Amer) Cancelled Glucose Cancelled 281 H Calcium Cancelled 8.2 L 01/24/20 01/24/20 01/24/20 00:03 00:03 04:20 Creatine Kinase 80 CK-MB (CK-2) 0.63 Troponin I 0.132 0.133 NT-Pro-B Natriuret Pep [id number] H 01/24/20 01/24/20 01/24/20 10:43 17:19 23:06 Creatine Kinase CK-MB (CK-2) Troponin I 0.114 0.079 0.075 NT-Pro-B Natriuret Pep [id number] H All labs, radiographs, diagnostic studies and EKGs were personally reviewed: Yes In addition, reports of radiographic and diagnostic studies were read: Yes Assessment and Plan - Diagnosis (1) COVID-19 Is this a current diagnosis for this admission?: Yes Plan: His COVID test from [facility] has returned as positive. This helps explain his length of illness. His CXR appearence and hypoxia. Hydroxichloroquin ordered. (2) Acute CHF Qualifiers: Heart failure type: unspecified Qualified Code(s): I50.9 - Heart failure, unspecified Is this a current diagnosis for this admission?: Yes Plan: With his COVID and hx of pneumonia, possible aspiration and CKD st 4 it is impossible to say with clarity if this patient was ever in clear CHF. (3) Acute hypoxemic respiratory failure Is this a current diagnosis for this admission?: Yes Plan: Improved. More awake. Will start diet. (4) CKD stage 4 due to type 2 diabetes mellitus Is this a current diagnosis for this admission?: Yes Plan: Will have Dr. Valdes give opinion regarding volume status. Lasix ordered as trial. (5) Chronic pain Qualifiers: Chronic pain type: other chronic pain Qualified Code(s): G89.29 - Other chronic pain Is this a current diagnosis for this admission?: Yes Plan: On oxycodone. Nausea gone ? element of WD (6) Diabetes mellitus type 2 in nonobese Is this a current diagnosis for this admission?: Yes Plan: Could be a bit better controlled. Plan Summary: Start diet and allow time off bipap to eat. Start weaniung bipap if tolerated. Keep in ICU as CXR is looking worse as he looks clinically better. Critical Time Critical Time (minutes): 40 Level of Care: ICU Anticipated discharge: Home with Homehealth Within: Other -: 1. The care of a critical patient is a dynamic process. This note is a [employer] admissions representative synopsis but static in nature. The timeframe for treatments given in order is not necessarily the actual time these treatments may have been done. 2. This patient requires critical care secondary to ongoing requirements for therapy not offered or safe outside the critical care environment. Transfer to a lower level of care will result in altered life or limb morbidity and mortality. 3. Multidisciplinary rounds completed. 4. ABCDE bundle addressed.
--- NOTE | 2020-01-26 08:53 | RADIOLOGY REPORT (SQ) ---
EXAM DESCRIPTION: CHEST SINGLE VIEW IMAGES COMPLETED DATE/TIME: 01/26/2020 6:06 am REASON FOR STUDY: Bilateral pneumonia COMPARISON: AP view of the chest from 01/25/2020. EXAM PARAMETERS: NUMBER OF VIEWS: One view. TECHNIQUE: An AP view of the chest was obtained. RADIATION DOSE: NA LIMITATIONS: None. FINDINGS: LUNGS AND PLEURA: Unchanged radiographic appearance of the lungs and pleura. MEDIASTINUM AND HILAR STRUCTURES: Stable mediastinal and hilar contours. HEART AND VASCULAR STRUCTURES: Stable cardiac silhouette. BONES: No acute findings. HARDWARE: Cervical fixation hardware. OTHER: No other finding. IMPRESSION: No acute cardiopulmonary process. TECHNICAL DOCUMENTATION: JOB ID: [id number] 2010 [employer]- All Rights Reserved Reading location - IP/workstation name: [email or web address]
[2020-01-26] MEDS: HYDROCORTISONE SOD SUCCINATE INJ/PF 100 MG/2 ML SDV IV SCH ×2 (09:49→21:01)
[2020-01-26] MEDS: HYDROXYCHLOROQUINE SULFATE 200 MG TABLET PO SCH ×2 (09:51→17:57)
[2020-01-26 10:12] LABS: ANION GAP 9 (5-19); BLOOD UREA NITROGEN 70 mg/dL (7-20); CALCIUM 7.8 mg/dL (8.4-10.2); CARBON DIOXIDE 26 mmol/L (22-30); CHLORIDE 106 mmol/L (98-107); GLUCOSE 190 mg/dL (75-110); POTASSIUM 4.2 mmol/L (3.6-5.0)
[2020-01-26] MEDS: ONDANSETRON HCL INJ/PF 4 MG/2 ML SDV IV PRN (12:56)
[2020-01-26] MEDS: CEFEPIME HCL 2 GM in DEXTROSE 5%-WATER 50 ML IV SCH (21:02)
[2020-01-27] MEDS ORDERED: MECLIZINE HCL 12.5 MG TABLET PO PRN (00:27)
[2020-01-27] MEDS: OXYCODONE HCL SR 10 MG TABLET PO SCH ×4 (02:14→21:05)
[2020-01-27] MEDS ORDERED: MECLIZINE HCL 12.5 MG TABLET ONE (02:33)
[2020-01-27] MEDS: GABAPENTIN 100 MG CAPSULE PO SCH ×3 (05:48→21:06)
[2020-01-27] MEDS: HEPARIN SOD (PORCINE) 5,000 UNIT/ML 1 ML VIAL SUBCUT SCH ×3 (05:48→21:05)
[2020-01-27] MEDS: INSULIN REG, HUMAN 100 UNIT/ML 3 ML VIAL (PYX) SUBCUT SCH ×4 (05:49→23:53)
[2020-01-27] MEDS: RINGERS SOLUTION,LACTATED 1,000 ML IV PRN ×3 (06:09→19:00)
[2020-01-27 07:10] LABS: ABSOLUTE LYMPHOCYTES (AUTO) 0.7 10^3/uL (0.5-4.7); ABSOLUTE MONOCYTES (AUTO) 0.5 10^3/uL (0.1-1.4); BASOPHILS % (AUTO) 0.2 % (0-2); HEMATOCRIT 30.5 % (37.9-51.0); HEMOGLOBIN 9.9 g/dL (13.5-17.0); LYMPHOCYTES % (AUTO) 7.4 % (13-45); MEAN CORPUSCULAR HEMOGLOBIN 28.5 pg (27.0-33.4); MEAN CORPUSCULAR HGB CONC 32.5 g/dL (32.0-36.0); MEAN CORPUSCULAR VOLUME 88 fl (80-97); MONOCYTES % (AUTO) 5.5 % (3-13); PLATELET COUNT 313 10^3/uL (150-450); RED BLOOD COUNT 3.47 10^6/uL (4.35-5.55); RED CELL DISTRIBUTION WIDTH 15.2 % (11.5-14.0); SEGMENTED NEUTROPHILS % (AUTO) 86.9 % (42-78); TOTAL CELLS COUNTED % (AUTO) 100 %; WHITE BLOOD COUNT 9.2 10^3/uL (4.0-10.5)
[2020-01-27 07:28] LABS: ANION GAP 11 (5-19); BLOOD UREA NITROGEN 72 mg/dL (7-20); CALCIUM 8.2 mg/dL (8.4-10.2); CARBON DIOXIDE 27 mmol/L (22-30); CHLORIDE 104 mmol/L (98-107); GLUCOSE 183 mg/dL (75-110); POTASSIUM 4.3 mmol/L (3.6-5.0)
--- NOTE | 2020-01-27 08:18 | RADIOLOGY REPORT (SQ) ---
EXAM DESCRIPTION: CHEST SINGLE VIEW IMAGES COMPLETED DATE/TIME: 01/27/2020 6:12 am REASON FOR STUDY: Bilateral pneumonia COMPARISON: Chest radiographs dated 01/14/2020 through 01/26/2020 EXAM PARAMETERS: NUMBER OF VIEWS: One view. TECHNIQUE: Single frontal radiographic view of the chest acquired. RADIATION DOSE: NA LIMITATIONS: None. FINDINGS: LUNGS AND PLEURA: Today's examination demonstrates increasing left lower lobe and lingular airspace opacities with a somewhat improved appearance of the right upper lobe aeration. No pleural effusion. No pneumothorax. MEDIASTINUM AND HILAR STRUCTURES: Largely obscured. HEART AND VASCULAR STRUCTURES: Largely obscured. BONES: No acute findings. HARDWARE: Cervicothoracic junction ACDF. OTHER: No other significant finding. IMPRESSION: Marked progression in left lower lobe and lingular airspace opacities with and improved appearance of the right upper lobe aeration in this patient with multi lobar pneumonia. TECHNICAL DOCUMENTATION: JOB ID: [id number] 2010 [employer]- All Rights Reserved Reading location - IP/workstation name: [email or web address]
--- NOTE | 2020-01-27 08:40 | PDOC CRITICAL CARE PROG REPORT ---
General Date:: 01/27/20 ICU Day:: 3 Hospital Day:: 3 Resuscitation Status: Full Code Events in the past 12 to 24 Hours:: Clinically getting better. Review of systems relevant to events:: Pulmonary. Reason for ICU Addmission:: Respiratory insufficiency, bipap dependant. - Medications: Medications reviewed and adjusted accordingly: Yes Vasopressors:: None Sedation:: None. Physical Exam Vital Signs: Temp Pulse Resp BP Pulse Ox 97.8 F 85 16 119/77 96 01/27/20 06:00 01/26/20 20:00 01/27/20 06:00 01/27/20 05:27 01/27/20 06:00 Intake & Output 01/26/20 01/27/20 01/28/20 06:59 06:59 06:59 Intake Total 2049 1944 Output Total 1699 2575 Balance 350 -630 Weight 76.8 kg 77.8 kg Weight/Height Weight 77.8 kg Height 5 ft 7 in General appearance: PRESENT: no acute distress, cooperative, thin Head exam: PRESENT: atraumatic, normocephalic Eye exam: PRESENT: conjunctiva pink, EOMI, PERRLA. ABSENT: scleral icterus Ear exam: PRESENT: normal external ear exam Mouth exam: PRESENT: moist, tongue midline Respiratory exam: PRESENT: crackles - Dry crackles, other - Moving more air today. Cardiovascular exam: PRESENT: RRR. ABSENT: diastolic murmur, rubs, systolic murmur GI/Abdominal exam: PRESENT: normal bowel sounds, soft. ABSENT: distended, guarding, mass, organolmegaly, rebound, tenderness Rectal exam: PRESENT: deferred Gentrourinary exam: PRESENT: indwelling catheter Extremities exam: PRESENT: full ROM. ABSENT: calf tenderness, clubbing, pedal edema Musculoskeletal exam: PRESENT: normal inspection Neurological exam: PRESENT: alert, awake, oriented to person, oriented to place, oriented to time, oriented to situation, CN II-XII grossly intact. ABSENT: motor sensory deficit Psychiatric exam: PRESENT: appropriate affect, normal mood. ABSENT: homicidal ideation, suicidal ideation Skin exam: PRESENT: dry, intact, warm. ABSENT: cyanosis, rash Laboratory/Radiographs Laboratory Results: 01/27/20 06:51 01/27/20 06:51 01/26/20 01/27/20 01/27/20 09:20 06:51 06:51 WBC 9.2 RBC 3.47 L Hgb 9.9 L Hct 30.5 L MCV 88 MCH 28.5 MCHC 32.5 RDW 15.2 H Plt Count 313 Seg Neutrophils % 86.9 H Sodium 140.6 141.5 Potassium 4.2 4.3 Chloride 106 104 Carbon Dioxide 26 27 Anion Gap 9 11 BUN 70 H 72 H Creatinine 3.70 H 3.66 H Est GFR ( Amer) 20 L 21 L Glucose 190 H 183 H Calcium 7.8 L 8.2 L 01/24/20 01/24/20 01/24/20 00:03 00:03 04:20 Creatine Kinase 80 CK-MB (CK-2) 0.63 Troponin I 0.132 0.133 NT-Pro-B Natriuret Pep 05692 H 01/24/20 01/24/20 01/24/20 10:43 17:19 23:06 Creatine Kinase CK-MB (CK-2) Troponin I 0.114 0.079 0.075 NT-Pro-B Natriuret Pep 52814 H Impressions: Chest X-Ray 01/27/20 06:00 IMPRESSION: Marked progression in left lower lobe and lingular airspace opacities with and improved appearance of the right upper lobe aeration in this patient with multi lobar pneumonia. All labs, radiographs, diagnostic studies and EKGs were personally reviewed: Yes In addition, reports of radiographic and diagnostic studies were read: Yes Assessment and Plan - Diagnosis (1) COVID-19 Is this a current diagnosis for this admission?: Yes Plan: Positive. CXR is imroved on R, worse on L. Overall clinically doing better as his voice is stronger, still needs bipap. HFNC too hot for him. Hydroxychloroquine ordered. (2) Acute CHF Qualifiers: Heart failure type: unspecified Qualified Code(s): I50.9 - Heart failure, unspecified Is this a current diagnosis for this admission?: Yes Plan: It again is not possible to fully assess. My feeling is there is no CHF. (3) Acute hypoxemic respiratory failure Is this a current diagnosis for this admission?: Yes Plan: Still bipap requirement. (4) CKD stage 4 due to type 2 diabetes mellitus Is this a current diagnosis for this admission?: Yes Plan: A slight bit better but essentially no change. (5) Chronic pain Qualifiers: Chronic pain type: other chronic pain Qualified Code(s): G89.29 - Other chronic pain Is this a current diagnosis for this admission?: Yes Plan: Home oxycodone ordered. (6) Diabetes mellitus type 2 in nonobese Is this a current diagnosis for this admission?: Yes Plan: Controlled, BG mostly under 200, but not eating much. Plan Summary: Keep in ICU as he tends to desaturate, try getting him off bipap today. Critical Time Critical Time (minutes): 35 Level of Care: ICU Anticipated discharge: Home with Homehealth Within: Other -: 1. The care of a critical patient is a dynamic process. This note is a arborist representative synopsis but static in nature. The timeframe for treatments given in order is not necessarily the actual time these treatments may have been done. 2. This patient requires critical care secondary to ongoing requirements for therapy not offered or safe outside the critical care environment. Transfer to a lower level of care will result in altered life or limb morbidity and mortality. 3. Multidisciplinary rounds completed. 4. ABCDE bundle addressed.
[2020-01-27] MEDS: HYDROCORTISONE SOD SUCCINATE INJ/PF 100 MG/2 ML SDV IV SCH ×2 (10:14→21:00)
[2020-01-27] MEDS: HYDROXYCHLOROQUINE SULFATE 200 MG TABLET PO SCH ×2 (10:14→18:27)
[2020-01-27] MEDS: LORAZEPAM INJ 2 MG/1 ML VIAL IV PRN (10:14)
[2020-01-27] MEDS ORDERED: FUROSEMIDE INJ/PF 40 MG/4 ML SDV IV ONE (15:19)
[2020-01-27] MEDS: ONDANSETRON HCL INJ/PF 4 MG/2 ML SDV IV PRN ×2 (21:02)
[2020-01-27] MEDS: CEFEPIME HCL 2 GM in DEXTROSE 5%-WATER 50 ML IV SCH (21:05)
[2020-01-27] MEDS ORDERED: HEPARIN SODIUM,PORCINE/D5W 25,000 UNIT/250 ML RTUINJ IV ONE (23:46)
[2020-01-28] MEDS ORDERED: HEPARIN SOD (PORCINE) 1,000 UNIT/ML 10 ML VIAL ONE (00:17)
[2020-01-28] MEDS: HEPARIN SODIUM,PORCINE/D5W 25,000 UNIT/250 ML RTUINJ IV PRN (00:30)
[2020-01-28 00:36] LABS: HEMATOCRIT 32.3 % (37.9-51.0); HEMOGLOBIN 10.7 g/dL (13.5-17.0); MEAN CORPUSCULAR HEMOGLOBIN 28.9 pg (27.0-33.4); MEAN CORPUSCULAR HGB CONC 33.1 g/dL (32.0-36.0); MEAN CORPUSCULAR VOLUME 88 fl (80-97); PLATELET COUNT 316 10^3/uL (150-450); RED BLOOD COUNT 3.69 10^6/uL (4.35-5.55); RED CELL DISTRIBUTION WIDTH 15.4 % (11.5-14.0); WHITE BLOOD COUNT 10.5 10^3/uL (4.0-10.5)
[2020-01-28 00:43] LABS: INTERNATIONAL RATION (INR) 1.82; PROTHROMBIN TIME 21.3 SEC (11.4-15.4)
[2020-01-28 00:44] LABS: PARTIAL THROMBOPLASTIN TIME 40.5 SEC (23.5-35.8)
[2020-01-28] MEDS: GABAPENTIN 100 MG CAPSULE PO SCH ×5 (00:51→23:00)
[2020-01-28 00:54] LABS: ABSOLUTE LYMPHOCYTES# (MANUAL) 0.4 10^3/uL (0.5-4.7); ABSOLUTE MONOCYTES # (MANUAL) 0.2 10^3/uL (0.1-1.4); BASOPHILS % (MANUAL) 0 % (0-2); EOSINOPHILS % (MANUAL) 0 % (0-6); LYMPHOCYTES % (MANUAL) 4 % (13-45); MONOCYTES % (MANUAL) 2 % (3-13); PLATELET COMMENT ADEQUATE; SEGMENTED NEUTROPHILS % (MAN) 94 % (42-78); TOTAL CELLS COUNTED 100
[2020-01-28 00:55] LABS: ANISOCYTOSIS SLIGHT
[2020-01-28 00:57] LABS: BURR CELLS SLIGHT; SCHISTOCYTES SLIGHT
[2020-01-28] MEDS: OXYCODONE HCL SR 10 MG TABLET PO SCH ×4 (02:00→23:00)
[2020-01-28 02:43] LABS: AMORPHOUS SEDIMENT,URINE TRACE /HPF; APPEARANCE,URINE SLIGHTLY-CLOUDY; BILIRUBIN,URINE NEGATIVE (NEGATIVE); COLOR,URINE YELLOW; GLUCOSE, URINE 50 mg/dL (NEGATIVE); KETONES,URINE NEGATIVE (NEGATIVE); LEUKOCYTE ESTERASE,URINE NEGATIVE (NEGATIVE); NITRITE,URINE NEGATIVE (NEGATIVE); PROTEIN,URINE 30 mg/dL (NEGATIVE); URINE SPECIFIC GRAVITY 1.009; UROBILINOGEN,URINE NEGATIVE mg/dL (<2.0)
[2020-01-28] MEDS: INSULIN REG, HUMAN 100 UNIT/ML 3 ML VIAL (PYX) SUBCUT SCH ×4 (05:05→23:23)
[2020-01-28 06:51] LABS: ANION GAP 14 (5-19); BLOOD UREA NITROGEN 76 mg/dL (7-20); CALCIUM 8.4 mg/dL (8.4-10.2); CARBON DIOXIDE 24 mmol/L (22-30); CHLORIDE 105 mmol/L (98-107); GLUCOSE 213 mg/dL (75-110); POTASSIUM 4.1 mmol/L (3.6-5.0)
[2020-01-28] MEDS: MORPHINE SULFATE 10 MG/ML INJ IV PRN ×2 (09:06→19:13)
--- NOTE | 2020-01-28 09:11 | PDOC CRITICAL CARE PROG REPORT ---
General Date:: 01/28/20 ICU Day:: 4 Hospital Day:: 4 Resuscitation Status: Full Code Events in the past 12 to 24 Hours:: Improved from a respiratory standpoint. Review of systems relevant to events:: Respiratory. Reason for ICU Addmission:: Respiratory insufficiency, bipap dependant. - Medications: Medications reviewed and adjusted accordingly: Yes Vasopressors:: None Sedation:: None Physical Exam Vital Signs: Temp Pulse Resp BP Pulse Ox 98.2 F 95 12 135/96 H 93 01/28/20 08:00 01/28/20 08:00 01/28/20 08:41 01/28/20 08:00 01/28/20 08:41 Intake & Output 01/27/20 01/28/20 01/29/20 06:59 06:59 06:59 Intake Total 1945 1250 1000 Output Total 2575 950 0 Balance -195 342 8186 Weight 77.8 kg 75.6 kg Weight/Height Weight 75.6 kg Height 5 ft 7 in General appearance: PRESENT: no acute distress, well-developed, well-nourished Head exam: PRESENT: atraumatic, normocephalic Eye exam: PRESENT: conjunctiva pink, EOMI, PERRLA. ABSENT: scleral icterus Ear exam: PRESENT: normal external ear exam Mouth exam: PRESENT: dry mucosa, tongue midline Respiratory exam: PRESENT: clear to auscultation yousif, decreased breath sounds Cardiovascular exam: PRESENT: RRR, tachycardia. ABSENT: diastolic murmur, rubs, systolic murmur GI/Abdominal exam: PRESENT: normal bowel sounds, soft. ABSENT: distended, guarding, mass, organolmegaly, rebound, tenderness Rectal exam: PRESENT: deferred Extremities exam: PRESENT: full ROM. ABSENT: calf tenderness, clubbing, pedal edema Musculoskeletal exam: PRESENT: normal inspection Neurological exam: PRESENT: alert, awake, oriented to person, oriented to place, oriented to time, oriented to situation, CN II-XII grossly intact. ABSENT: motor sensory deficit Psychiatric exam: PRESENT: anxious, appropriate affect, normal mood. ABSENT: homicidal ideation, suicidal ideation Skin exam: PRESENT: dry, intact, warm. ABSENT: cyanosis, rash Laboratory/Radiographs Laboratory Results: 01/28/20 00:25 01/28/20 06:26 01/28/20 01/28/20 01/28/20 00:25 01:40 06:26 WBC 10.5 RBC 3.69 L Hgb 10.7 L Hct 32.3 L MCV 88 MCH 28.9 MCHC 33.1 RDW 15.4 H Plt Count 316 Seg Neutrophils % Not Reportable Sodium 142.8 Potassium 4.1 Chloride 105 Carbon Dioxide 24 Anion Gap 14 BUN 76 H Creatinine 4.02 H Est GFR ( Amer) 18 L Glucose 213 H Calcium 8.4 Urine Color YELLOW Urine Appearance SLIGHTLY-CLOUDY Urine pH 5.0 Ur Specific [place] 1.009 Urine Protein 30 H Urine Glucose (UA) 50 H Urine Ketones NEGATIVE Urine Blood MODERATE H Urine Nitrite NEGATIVE Ur Leukocyte Esterase NEGATIVE Urine WBC (Auto) 1 Urine RBC (Auto) 0 01/25/20 09:12 Sputum Gram Stain - Final 01/25/20 09:12 Sputum Sputum Culture - Final Yeast, Not Leah Albicans Greatly Reduced Normal Kathie 01/24/20 01/24/20 01/24/20 00:03 00:03 04:20 Creatine Kinase 80 CK-MB (CK-2) 0.63 Troponin I 0.132 0.133 NT-Pro-B Natriuret Pep [id number] H 01/24/20 01/24/20 01/24/20 10:43 17:19 23:06 Creatine Kinase CK-MB (CK-2) Troponin I 0.114 0.079 0.075 NT-Pro-B Natriuret Pep 66943 H Impressions: Chest X-Ray 01/27/20 06:00 IMPRESSION: Marked progression in left lower lobe and lingular airspace opacities with and improved appearance of the right upper lobe aeration in this patient with multi lobar pneumonia. All labs, radiographs, diagnostic studies and EKGs were personally reviewed: Yes In addition, reports of radiographic and diagnostic studies were read: Yes Assessment and Plan - Diagnosis (1) COVID-19 Is this a current diagnosis for this admission?: Yes Plan: He is clinically improved from yesterday. Voice stronger, O2 requirement down to 50% from 100. Still needs an ICU status due to unstable respiratory status. (2) Acute CHF Qualifiers: Heart failure type: unspecified Qualified Code(s): I50.9 - Heart failure, unspecified Is this a current diagnosis for this admission?: Yes Plan: Received lasix yesterday, none today. Probably resolved. (3) Acute hypoxemic respiratory failure Is this a current diagnosis for this admission?: Yes Plan: See above. Still needs bipap. (4) CKD stage 4 due to type 2 diabetes mellitus Is this a current diagnosis for this admission?: Yes Plan: Cr up to 4. GFR about 18-same. This may be due to lasix. No further lasix. Dr. Valdes consulted and will see Wednesday. (5) Chronic pain Qualifiers: Chronic pain type: other chronic pain Qualified Code(s): G89.29 - Other chronic pain Is this a current diagnosis for this admission?: Yes Plan: Pt states "I cant swallow." Phanyngeal muscles working. Nursing staff says he is eating some and taking pills. Is the pt in a mild state of WD? He was nauseous before. Pale, not diaphoretic and has frenquently asked for more and higher doses of narcotic. This is possible but hard to know forsure. He now has IV MSO4 and oxycodone. Will need to continue to observe. He does have back problems probably exacerbated by the bed and immobility. (6) Diabetes mellitus type 2 in nonobese Is this a current diagnosis for this admission?: Yes Plan: Controlled. Plan Summary: Although improved his respiratory status is still tenous and will leave at ICU level today. Critical Time Critical Time (minutes): 35 Level of Care: ICU Anticipated discharge: Home Within: Other -: 1. The care of a critical patient is a dynamic process. This note is a advertising sales representative synopsis but static in nature. The timeframe for treatments given in order is not necessarily the actual time these treatments may have been done. 2. This patient requires critical care secondary to ongoing requirements for therapy not offered or safe outside the critical care environment. Transfer to a lower level of care will result in altered life or limb morbidity and mortality. 3. Multidisciplinary rounds completed. 4. ABCDE bundle addressed.
[2020-01-28] MEDS: HYDROCORTISONE SOD SUCCINATE INJ/PF 100 MG/2 ML SDV IV SCH ×2 (11:28→23:03)
[2020-01-28] MEDS: HYDROXYCHLOROQUINE SULFATE 200 MG TABLET PO SCH ×2 (11:28→18:21)
[2020-01-28] MEDS: CEFEPIME HCL 2 GM in DEXTROSE 5%-WATER 50 ML IV SCH (22:55)
[2020-01-28] MEDS: RINGERS SOLUTION,LACTATED 1,000 ML IV PRN (22:55)
[2020-01-29] MEDS: MORPHINE SULFATE 10 MG/ML INJ IV PRN ×2 (00:03→07:04)
[2020-01-29] MEDS: LORAZEPAM INJ 2 MG/1 ML VIAL IV PRN ×2 (00:13→12:10)
[2020-01-29] MEDS ORDERED: HEPARIN SOD (PORCINE) 5,000 UNIT/ML 1 ML VIAL IV ONE (03:00)
[2020-01-29] MEDS: OXYCODONE HCL SR 10 MG TABLET PO SCH ×4 (03:39→21:51)
[2020-01-29 04:42] LABS: ABSOLUTE LYMPHOCYTES (AUTO) 0.5 10^3/uL (0.5-4.7); ABSOLUTE MONOCYTES (AUTO) 0.6 10^3/uL (0.1-1.4); ABSOLUTE NEUT (AUTO) 9.6 10^3/uL (1.7-8.2); BASOPHILS % (AUTO) 0.3 % (0-2); HEMATOCRIT 30.6 % (37.9-51.0); HEMOGLOBIN 9.9 g/dL (13.5-17.0); LYMPHOCYTES % (AUTO) 5.1 % (13-45); MEAN CORPUSCULAR HEMOGLOBIN 28.8 pg (27.0-33.4); MEAN CORPUSCULAR HGB CONC 32.3 g/dL (32.0-36.0); MEAN CORPUSCULAR VOLUME 89 fl (80-97); MONOCYTES % (AUTO) 5.7 % (3-13); PLATELET COUNT 271 10^3/uL (150-450); RED BLOOD COUNT 3.43 10^6/uL (4.35-5.55); SEGMENTED NEUTROPHILS % (AUTO) 88.9 % (42-78); TOTAL CELLS COUNTED % (AUTO) 100 %; WHITE BLOOD COUNT 10.8 10^3/uL (4.0-10.5)
[2020-01-29 05:08] LABS: ANION GAP 12 (5-19); BLOOD UREA NITROGEN 81 mg/dL (7-20); CALCIUM 8.4 mg/dL (8.4-10.2); CARBON DIOXIDE 25 mmol/L (22-30); CHLORIDE 108 mmol/L (98-107); GLUCOSE 185 mg/dL (75-110); POTASSIUM 3.9 mmol/L (3.6-5.0)
[2020-01-29] MEDS: GABAPENTIN 100 MG CAPSULE PO SCH ×3 (05:45→21:51)
[2020-01-29] MEDS: INSULIN REG, HUMAN 100 UNIT/ML 3 ML VIAL (PYX) SUBCUT SCH ×4 (05:48→23:11)
[2020-01-29] MEDS: HYDROXYCHLOROQUINE SULFATE 200 MG TABLET PO SCH ×2 (10:10→17:23)
[2020-01-29] MEDS: HYDROCORTISONE SOD SUCCINATE INJ/PF 100 MG/2 ML SDV IV SCH (10:39)
[2020-01-29 10:51] LABS: ARTERIAL BLOOD BASE EXCESS -2.1 mmol/L; ARTERIAL BLOOD HCO3 25.3 mmol/L (20-24); ARTERIAL BLOOD O2 SATURATION 72.6 % (94-98); ARTERIAL BLOOD PCO2 56.6 mmHg (35-45); ARTERIAL BLOOD PH 7.27 (7.35-7.45)
[2020-01-29 10:54] LABS: ARTERIAL BLOOD FIO2 65%
[2020-01-29 10:57] LABS: APPEARANCE,URINE SLIGHTLY-CLOUDY; BILIRUBIN,URINE NEGATIVE (NEGATIVE); COLOR,URINE YELLOW; GLUCOSE, URINE 150 mg/dL (NEGATIVE); KETONES,URINE NEGATIVE (NEGATIVE); LEUKOCYTE ESTERASE,URINE NEGATIVE (NEGATIVE); NITRITE,URINE NEGATIVE (NEGATIVE); PROTEIN,URINE 100 mg/dL (NEGATIVE); URINE SPECIFIC GRAVITY 1.012; UROBILINOGEN,URINE NEGATIVE mg/dL (<2.0)
[2020-01-29] MEDS: FAMOTIDINE INJ/PF 20 MG/2 ML SDV IV SCH (12:10)
[2020-01-29] MEDS: HEPARIN SODIUM,PORCINE/D5W 25,000 UNIT/250 ML RTUINJ IV PRN (12:12)
[2020-01-29] MEDS ORDERED: DEXAMETHASONE SOD PHOSPHATE INJ 4 MG/1 ML VIAL IV SCH (14:00)
[2020-01-29 14:24] LABS: ARTERIAL BLOOD BASE EXCESS -2.3 mmol/L; ARTERIAL BLOOD HCO3 26.7 mmol/L (20-24); ARTERIAL BLOOD O2 SATURATION 97.8 % (94-98); ARTERIAL BLOOD PO2 130.5 mmHg (80-100); ARTERIAL BLOOD TOTAL CO2 28.8 mmol/L (23-27)
[2020-01-29 14:25] LABS: ARTERIAL BLOOD FIO2 65%
[2020-01-29 14:26] LABS: ARTERIAL BLOOD PCO2 69.7 mmHg (35-45)
[2020-01-29] MEDS ORDERED: DEXTROSE 40% GEL 15 GM TUBE PO PRN ×2 (15:10)
[2020-01-29] MEDS ORDERED: AMINO ACIDS 5 %/DEXTROSE 20 % 1,000 ML IV PRN (15:10)
[2020-01-29] MEDS ORDERED: DEXTROSE 50%-WATER 25 GM/50 ML DISP.SYRIN IV PRN ×2 (15:10)
[2020-01-29] MEDS ORDERED: DEXTROSE 10%-WATER 1,000 ML IV PRN (15:10)
[2020-01-29] MEDS ORDERED: FUROSEMIDE INJ/PF 40 MG/4 ML SDV IV ONE ×2 (15:20→17:00)
[2020-01-29] MEDS ORDERED: ALBUTEROL SULFATE 0.083% NEB 2.5 MG/3 ML AMPUL NEB ONE (16:38)
[2020-01-29] MEDS: ALBUTEROL SULFATE 0.083% NEB 2.5 MG/3 ML AMPUL NEB SCH ×2 (16:46→20:48)
--- NOTE | 2020-01-29 18:36 | PDOC CRITICAL CARE PROG REPORT ---
General Date:: 01/29/20 ICU Day:: 5 Hospital Day:: 5 Resuscitation Status: Full Code Events in the past 12 to 24 Hours:: 01/28: Currently on BiPAP, FiO2 60%. Hemodynamically stable. On heparin infusion. Review of systems relevant to events:: Respiratory: Acute hypoxemic respiratory failure, COVID-19 pneumonia Hematologic: Normocytic anemia Renal: Chronic kidney disease Endocrine: Type 2 diabetes mellitus Neurologic: Chronic pain (right knee) Reason for ICU Addmission:: Respiratory insufficiency, bipap dependant. - Medications: Medications reviewed and adjusted accordingly: Yes Physical Exam Vital Signs: Temp Pulse Resp BP Pulse Ox 97.8 F 94 9 L 132/80 H 100 01/29/20 12:00 01/29/20 08:00 01/29/20 12:40 01/29/20 12:40 01/29/20 12:40 Intake & Output 01/28/20 01/29/20 01/30/20 06:59 06:59 06:59 Intake Total 1250 2213 62 Output Total 950 0 200 Balance 300 2213 -138 Weight 75.6 kg 77.9 kg Weight/Height Weight 77.9 kg Height 1.7 m General appearance: PRESENT: no acute distress, well-developed, well-nourished Head exam: PRESENT: atraumatic, normocephalic Eye exam: PRESENT: conjunctiva pink, EOMI, PERRLA. ABSENT: scleral icterus Mouth exam: PRESENT: dry mucosa, tongue midline Neck exam: ABSENT: carotid bruit, JVD, lymphadenopathy, thyromegaly Respiratory exam: PRESENT: crackles, decreased breath sounds, prolonged expiratory phas, rales, rhonchi. ABSENT: wheezes Cardiovascular exam: PRESENT: RRR. ABSENT: diastolic murmur, rubs, systolic murmur Pulses: PRESENT: normal dorsalis pedis pul GI/Abdominal exam: PRESENT: normal bowel sounds, soft. ABSENT: distended, guarding, mass, organolmegaly, rebound, tenderness Neurological exam: PRESENT: alert, awake, oriented to person, oriented to place, oriented to time, oriented to situation, CN II-XII grossly intact. ABSENT: motor sensory deficit Skin exam: PRESENT: dry, intact, warm. ABSENT: cyanosis, rash Laboratory/Radiographs Laboratory Results: 01/29/20 04:30 01/29/20 04:30 01/29/20 01/29/20 01/29/20 04:30 04:30 10:34 WBC 10.8 H RBC 3.43 L Hgb 9.9 L Hct 30.6 L MCV 89 MCH 28.8 MCHC 32.3 RDW 16.0 H Plt Count 271 Seg Neutrophils % 88.9 H Carbonic Acid HCO3/H2CO3 Ratio ABG pH ABG pCO2 ABG pO2 ABG HCO3 ABG O2 Saturation ABG Base Excess FiO2 Sodium 144.9 Potassium 3.9 Chloride 108 H Carbon Dioxide 25 Anion Gap 12 BUN 81 H Creatinine 3.96 H Est GFR ( Amer) 19 L Glucose 185 H Calcium 8.4 Urine Color YELLOW Urine Appearance SLIGHTLY-CLOUDY Urine pH 5.0 Ur Specific [place] 1.012 Urine Protein 100 H Urine Glucose (UA) 150 H Urine Ketones NEGATIVE Urine Blood MODERATE H Urine Nitrite NEGATIVE Ur Leukocyte Esterase NEGATIVE Urine WBC (Auto) 0 Urine RBC (Auto) 0 01/29/20 10:35 WBC RBC Hgb Hct MCV MCH MCHC RDW Plt Count Seg Neutrophils % Carbonic Acid 1.70 H HCO3/H2CO3 Ratio 14:1 ABG pH 7.27 L ABG pCO2 56.6 H ABG pO2 44.0 L ABG HCO3 25.3 H ABG O2 Saturation 72.6 L ABG Base Excess -2.1 FiO2 65% Sodium Potassium Chloride Carbon Dioxide Anion Gap BUN Creatinine Est GFR ( Amer) Glucose Calcium Urine Color Urine Appearance Urine pH Ur Specific [place] Urine Protein Urine Glucose (UA) Urine Ketones Urine Blood Urine Nitrite Ur Leukocyte Esterase Urine WBC (Auto) Urine RBC (Auto) 01/24/20 00:52 Blood Blood Culture - Final NO GROWTH IN 5 DAYS 01/24/20 00:03 Blood Blood Culture - Final NO GROWTH IN 5 DAYS 01/24/20 01/24/20 01/24/20 00:03 00:03 04:20 Creatine Kinase 80 CK-MB (CK-2) 0.63 Troponin I 0.132 0.133 NT-Pro-B Natriuret Pep 82023 H 01/24/20 01/24/20 01/24/20 10:43 17:19 23:06 Creatine Kinase CK-MB (CK-2) Troponin I 0.114 0.079 0.075 NT-Pro-B Natriuret Pep 62506 H Impressions: Chest X-Ray 01/27/20 06:00 IMPRESSION: Marked progression in left lower lobe and lingular airspace opacities with and improved appearance of the right upper lobe aeration in this patient with multi lobar pneumonia. All labs, radiographs, diagnostic studies and EKGs were personally reviewed: Yes In addition, reports of radiographic and diagnostic studies were read: Yes Assessment and Plan - Diagnosis (1) Acute respiratory failure due to severe acute respiratory syndrome coronavirus 2 (SARS-CoV-2) infection Is this a current diagnosis for this admission?: Yes Plan: Check ABG. Titrate NIPPV support based on ABG results. Change Solu-Cortef to Decadron 4 mg IV every 12 hours. Albuterol scheduled and as needed. Pulmicort scheduled. (2) Pneumonia due to COVID-19 virus Is this a current diagnosis for this admission?: Yes Plan: Currently on empiric cefepime 2 g IV nightly (10-day course). Sputum Gram stain from 01/24 revealed greatly reduced normal julian. No bacterial pathogen identified. On Plaquenil 200 mg p.o. twice daily. (3) Acute worsening of stage 4 chronic kidney disease Is this a current diagnosis for this admission?: Yes Plan: Monitor creatinine and urine output. Renal dosing as needed. Avoid nephrotoxic medications. (4) Chronically on opiate therapy Is this a current diagnosis for this admission?: Yes Plan: Home medications include OxyIR (oxycodone) 15 mg p.o. every 6 hours; Mobic (meloxicam) 7.5 mg p.o. every 12 hours PRN. Currently on OxyContin SR 20 mg p.o. every 6 hours and morphine 2 mg IV every 3 hours as needed. (5) Elevated troponin level Is this a current diagnosis for this admission?: Yes (6) Diabetes type 2, uncontrolled Qualifiers: Glycemic state: with hyperglycemia Qualified Code(s): E11.65 - Type 2 diabetes mellitus with hyperglycemia Is this a current diagnosis for this admission?: Yes Critical Time Critical Time (minutes): 120 Level of Care: ICU -: 1. The care of a critical patient is a dynamic process. This note is a sales service representative synopsis but static in nature. The timeframe for treatments given in order is not necessarily the actual time these treatments may have been done. 2. This patient requires critical care secondary to ongoing requirements for therapy not offered or safe outside the critical care environment. Transfer to a lower level of care will result in altered life or limb morbidity and mortality. 3. Multidisciplinary rounds completed. 4. ABCDE bundle addressed.
[2020-01-29 18:46] LABS: ARTERIAL BLOOD BASE EXCESS -3.9 mmol/L; ARTERIAL BLOOD H2CO3 2.16 mmol/L (1.05-1.35); ARTERIAL BLOOD HCO3 25.5 mmol/L (20-24); ARTERIAL BLOOD O2 SATURATION 97.9 % (94-98); ARTERIAL BLOOD PO2 136.9 mmHg (80-100); ARTERIAL BLOOD TOTAL CO2 27.7 mmol/L (23-27)
[2020-01-29 18:50] LABS: ARTERIAL BLOOD PCO2 71.8 mmHg (35-45); ARTERIAL BLOOD PH 7.17 (7.35-7.45)
[2020-01-29 19:05] LABS: ARTERIAL BLOOD FIO2 100%
[2020-01-29 19:46] LABS: ARTERIAL BLOOD BASE EXCESS -4.6 mmol/L; ARTERIAL BLOOD HCO3 26.5 mmol/L (20-24); ARTERIAL BLOOD PO2 125.2 mmHg (80-100); ARTERIAL BLOOD TOTAL CO2 29.1 mmol/L (23-27)
[2020-01-29 19:48] LABS: ARTERIAL BLOOD FIO2 100
[2020-01-29 19:52] LABS: ARTERIAL BLOOD PCO2 86.5 mmHg (35-45)
[2020-01-29] MEDS ORDERED: ETOMIDATE INJ/PF 20 MG/10 ML SDV IV ONE ×2 (19:59→20:25)
[2020-01-29] MEDS ORDERED: MIDAZOLAM 2 MG/2 ML INJ ONE (19:59)
[2020-01-29] MEDS ORDERED: SUCCINYLCHOLINE CHLORIDE INJ 200 MG/10 ML VIAL IV ONE (20:25)
[2020-01-29] MEDS ORDERED: MIDAZOLAM 2 MG/2 ML INJ IV ONE ×2 (20:25)
[2020-01-29] MEDS: BUDESONIDE NEB 0.25 MG/2 ML AMPUL NEB SCH (20:56)
[2020-01-29] MEDS ORDERED: PROPOFOL 1,000 MG/100 ML INFUS..BTL IV ONE (21:02)
--- NOTE | 2020-01-29 21:11 | Operative Report ---
Bedside Procedure - History of Present Illness History of Present Illness: HISTORY OF PRESENT ILLNESS: 59-year-old male, history of poorly controlled DM 2, HTN, CHF, narcotic dependence from chronic arthritis, CKD recently admitted to [facility] on 01/05/2020 for ZURDO and hyperkalemia and was discharged on 01/11/2020. Patient then returned to the ED on 01/15/2020 and was admitted for nausea vomiting associated with fatigue and dizziness. Troponins were elevated at that time with a proBNP of 29,000. During his hospital stay he was treated for pneumonia and hypoxemia which resolved. He also had a non-ST elevated MD which was thought to be related to demand ischemia in the setting of pneumonia and sepsis with poor clearance of troponins related to his CKD. Baseline creatinine is 3.2. Patient was discharged again on 01/19/2020 and returned to the emergency department on 01/23/2020 complaining of orthostatic hypotension, persistent dizziness, fever and shortness of breath. proBNP was again elevated to 17,700, Creatinine seems to be only mildly elevated from [facility]. While in the ED, patient became hypotensive to 90/60 with increased O2 requirements and at one point had become unresponsive. He was placed on BiPAP which improved his respiratory status and he is now more awake and alert. He was given 2 L of LR and started on cefepime and Levaquin. Critical care was consulted to evaluate patient for admission to the intensive care unit. We will admit him to the ICU for further work-up and treatment given his respiratory and hemodynamic instability. Indication: ACUTE HYPERCAPNIC RESPIRATORY FAILURE A time-out was completed verifying correct patient, procedure, site, positioning, and special equipment if applicable. The patient was placed in a flat position. Sedation was obtained using Versed 2 mg and etomidate 20 mg. The patient was on BiPAP support prior to intubation. The GLIDESCOPE/MAC 4 BLADE was used and inserted into the oropharynx at which time there was a Grade 1 view of the vocal cords. A 7.5-pakistani endotracheal tube was inserted and visualized going through the vocal cords. The stylette was removed. Colorimetric change was visualized on the CO2 meter. Breath sounds were heard in both lung barnett equally. The endotracheal tube was placed at 24 cm, measured at the teeth. A chest x-ray was ordered to assess for pneumothorax and verify endotracheal tube placement. Estimated Blood Loss: NONE The patient tolerated the procedure well and there were no complications. Indication for Procedure: acute hypercapnic respiratory failure Date: 01/29/20 Provider: FARAZ NUNEZ
--- NOTE | 2020-01-29 21:18 | RADIOLOGY REPORT (SQ) ---
EXAM DESCRIPTION: XR CHEST 1 VIEW COMPLETED DATE/TME: 01/29/2020 00:00 CLINICAL HISTORY: 60 years, Male, Intubation confirmation COMPARISON: X-ray chest 01/27/2020 NUMBER OF VIEWS: TECHNIQUE: LIMITATIONS: None. FINDINGS: There is extensive bilateral pulmonary infiltrate, compatible with pneumonia. Since the prior chest x-ray, the patient has been intubated. The tip of the ET tube is 4.9 cm above the laura. A nasogastric tube has also been inserted, since the prior chest x-ray. The tip of the NG tube is in the stomach. IMPRESSION: Extensive bilateral pneumonia. The ET tube and NG tube are in satisfactory position. copyright 2010 [employer]- All Rights Reserved
[2020-01-29] MEDS: FENTANYL CITRATE/PF 600 MCG/60 ML BAG IV PRN (21:49)
[2020-01-29 21:50] LABS: ARTERIAL BLOOD BASE EXCESS -5.1 mmol/L; ARTERIAL BLOOD FIO2 100; ARTERIAL BLOOD H2CO3 1.63 mmol/L (1.05-1.35); ARTERIAL BLOOD HCO3 22.4 mmol/L (20-24); ARTERIAL BLOOD O2 SATURATION 97.6 % (94-98); ARTERIAL BLOOD PCO2 54.2 mmHg (35-45); ARTERIAL BLOOD PH 7.23 (7.35-7.45); ARTERIAL BLOOD PO2 118.7 mmHg (80-100); ARTERIAL BLOOD TOTAL CO2 24.1 mmol/L (23-27)
[2020-01-29] MEDS: PROPOFOL 1,000 MG/100 ML INFUS..BTL IV PRN (21:50)
[2020-01-29] MEDS: CEFEPIME HCL 2 GM in DEXTROSE 5%-WATER 50 ML IV SCH (21:52)
[2020-01-30] MEDS: FENTANYL CITRATE/PF 600 MCG/60 ML BAG IV PRN ×5 (00:59→23:29)
[2020-01-30] MEDS: ALBUTEROL SULFATE 0.083% NEB 2.5 MG/3 ML AMPUL NEB SCH ×4 (02:20→20:48)
[2020-01-30] MEDS: OXYCODONE HCL SR 10 MG TABLET PO SCH ×2 (03:10→09:18)
[2020-01-30 04:14] LABS: ABSOLUTE LYMPHOCYTES (AUTO) 0.5 10^3/uL (0.5-4.7); ABSOLUTE MONOCYTES (AUTO) 0.6 10^3/uL (0.1-1.4); ABSOLUTE NEUT (AUTO) 5.7 10^3/uL (1.7-8.2); BASOPHILS % (AUTO) 0.1 % (0-2); HEMATOCRIT 24.8 % (37.9-51.0); LYMPHOCYTES % (AUTO) 7.2 % (13-45); MEAN CORPUSCULAR HEMOGLOBIN 28.7 pg (27.0-33.4); MEAN CORPUSCULAR HGB CONC 31.9 g/dL (32.0-36.0); MEAN CORPUSCULAR VOLUME 90 fl (80-97); MONOCYTES % (AUTO) 9.3 % (3-13); PLATELET COUNT 258 10^3/uL (150-450); RED BLOOD COUNT 2.76 10^6/uL (4.35-5.55); RED CELL DISTRIBUTION WIDTH 15.7 % (11.5-14.0); SEGMENTED NEUTROPHILS % (AUTO) 83.4 % (42-78); TOTAL CELLS COUNTED % (AUTO) 100 %; WHITE BLOOD COUNT 6.9 10^3/uL (4.0-10.5)
[2020-01-30 04:18] LABS: HEMOGLOBIN 7.9 g/dL (13.5-17.0)
[2020-01-30 04:29] LABS: ALBUMIN 2.4 g/dL (3.5-5.0); ALKALINE PHOSPHATASE 155 U/L (38-126); ANION GAP 11 (5-19); ASPARTATE AMINO TRANSFERASE 27 U/L (17-59); BILIRUBIN,DIRECT 0.1 mg/dL (0.0-0.4); BILIRUBIN,TOTAL 0.4 mg/dL (0.2-1.3); BLOOD UREA NITROGEN 91 mg/dL (7-20); CALCIUM 7.9 mg/dL (8.4-10.2); CARBON DIOXIDE 24 mmol/L (22-30); CHLORIDE 110 mmol/L (98-107); GLUCOSE 208 mg/dL (75-110); PHOSPHORUS 6.5 mg/dL (2.5-4.5); POTASSIUM 3.8 mmol/L (3.6-5.0); TOTAL PROTEIN 5.4 g/dL (6.3-8.2)
[2020-01-30 04:41] LABS: PREALBUMIN 9.7 mg/dL (17.6-36.0)
[2020-01-30] MEDS: INSULIN REG, HUMAN 100 UNIT/ML 3 ML VIAL (PYX) SUBCUT SCH ×4 (05:30→23:29)
[2020-01-30] MEDS: GABAPENTIN 100 MG CAPSULE PO SCH (05:31)
[2020-01-30] MEDS: DEXAMETHASONE SOD PHOS INJ 10 MG/1 ML VIAL IV SCH ×3 (05:32→22:52)
[2020-01-30 06:33] LABS: ARTERIAL BLOOD BASE EXCESS -0.9 mmol/L; ARTERIAL BLOOD FIO2 70%; ARTERIAL BLOOD H2CO3 1.33 mmol/L (1.05-1.35); ARTERIAL BLOOD HCO3 24.6 mmol/L (20-24); ARTERIAL BLOOD O2 SATURATION 96.6 % (94-98); ARTERIAL BLOOD PCO2 44.3 mmHg (35-45); ARTERIAL BLOOD PH 7.36 (7.35-7.45); ARTERIAL BLOOD TOTAL CO2 25.9 mmol/L (23-27)
[2020-01-30] MEDS: PROPOFOL 1,000 MG/100 ML INFUS..BTL IV PRN (06:43)
[2020-01-30] MEDS: BUDESONIDE NEB 0.25 MG/2 ML AMPUL NEB SCH ×2 (07:58→20:48)
[2020-01-30] MEDS ORDERED: DEXMEDETOMIDINE IN 0.9 % NACL 400 MCG/100 ML RTUPB IV ONE (09:06)
[2020-01-30] MEDS: FAMOTIDINE INJ/PF 20 MG/2 ML SDV IV SCH (09:25)
--- NOTE | 2020-01-30 09:29 | RADIOLOGY REPORT (SQ) ---
EXAM DESCRIPTION: CHEST SINGLE VIEW IMAGES COMPLETED DATE/TIME: 01/30/2020 5:35 am REASON FOR STUDY: COVID pneumonia COMPARISON: Previous day. NUMBER OF VIEWS: One view. TECHNIQUE: Single frontal radiographic image of the chest acquired. LIMITATIONS: None. FINDINGS: LUNGS AND PLEURA: Diffuse bilateral airspace disease not significantly changed. No pneumo thorax. MEDIASTINUM AND HEART: Stable heart size and mediastinal structures. SUPPORT DEVICES: Appropriate location without change. BONY STRUCTURES: No acute findings. HARDWARE: None. OTHER: No other significant finding. IMPRESSION: No significant change. No pneumothorax. Reading location - IP/workstation name: [email or web address]
[2020-01-30] MEDS ORDERED: NORMAL SALINE 250 ML IV PRN ×2 (12:50)
[2020-01-30] MEDS: DEXMEDETOMIDINE IN 0.9 % NACL 400 MCG/100 ML RTUPB IV PRN ×3 (14:20→23:30)
[2020-01-30] MEDS: HYDROXYCHLOROQUINE SULFATE 200 MG TABLET GT SCH (17:21)
[2020-01-30] MEDS ORDERED: FUROSEMIDE INJ/PF 40 MG/4 ML SDV IV ONE (19:21)
[2020-01-30] MEDS ORDERED: MIDAZOLAM 2 MG/2 ML INJ ONE (20:59)
[2020-01-30] MEDS ORDERED: MIDAZOLAM 2 MG/2 ML INJ IV ONE (21:01)
[2020-01-30 21:54] LABS: HEMATOCRIT 34.1 % (37.9-51.0); MEAN CORPUSCULAR HEMOGLOBIN 28.7 pg (27.0-33.4); MEAN CORPUSCULAR HGB CONC 32.9 g/dL (32.0-36.0); MEAN CORPUSCULAR VOLUME 87 fl (80-97); RED BLOOD COUNT 3.92 10^6/uL (4.35-5.55); RED CELL DISTRIBUTION WIDTH 15.6 % (11.5-14.0); WHITE BLOOD COUNT 8.6 10^3/uL (4.0-10.5)
[2020-01-30] MEDS ORDERED: CEFEPIME 1 GM/D5W RTU 1 GM/50 ML RTUPB IV SCH (22:00)
[2020-01-30] MEDS ORDERED: CEFEPIME HCL 1 GM in DEXTROSE 5%-WATER 50 ML IV SCH (22:00)
[2020-01-30 22:05] LABS: HEMOGLOBIN 11.2 g/dL (13.5-17.0)
[2020-01-30 22:11] LABS: ABSOLUTE LYMPHOCYTES# (MANUAL) 0.3 10^3/uL (0.5-4.7); ABSOLUTE MONOCYTES # (MANUAL) 0.3 10^3/uL (0.1-1.4); BASOPHILS % (MANUAL) 0 % (0-2); EOSINOPHILS % (MANUAL) 0 % (0-6); LYMPHOCYTES % (MANUAL) 3 % (13-45); MONOCYTES % (MANUAL) 3 % (3-13); NUCLEATED RED BLOOD CELLS 1 /100 WBC (0); SEGMENTED NEUTROPHILS % (MAN) 94 % (42-78); TOTAL CELLS COUNTED 100
[2020-01-30 22:13] LABS: ANISOCYTOSIS SLIGHT; OVALOCYTES SLIGHT; PLATELET CLUMPS PRESENT; PLATELET COMMENT ADEQUATE; POIKILOCYTOSIS SLIGHT; POLYCHROMASIA SLIGHT; TEAR DROP CELLS SLIGHT
[2020-01-30 22:14] LABS: PLATELET COUNT 290 10^3/uL (150-450)
[2020-01-31] MEDS: HEPARIN SODIUM,PORCINE/D5W 25,000 UNIT/250 ML RTUINJ IV PRN (00:13)
[2020-01-31] MEDS: ALBUTEROL SULFATE 0.083% NEB 2.5 MG/3 ML AMPUL NEB SCH ×4 (01:54→20:47)
[2020-01-31] MEDS: DEXMEDETOMIDINE IN 0.9 % NACL 400 MCG/100 ML RTUPB IV PRN ×3 (03:30→11:11)
[2020-01-31 04:37] LABS: AMORPHOUS SEDIMENT,URINE TRACE /HPF; APPEARANCE,URINE SLIGHTLY-CLOUDY; BILIRUBIN,URINE NEGATIVE (NEGATIVE); COLOR,URINE STRAW; GLUCOSE, URINE >=500 mg/dL (NEGATIVE); KETONES,URINE NEGATIVE (NEGATIVE); LEUKOCYTE ESTERASE,URINE NEGATIVE (NEGATIVE); NITRITE,URINE NEGATIVE (NEGATIVE); PROTEIN,URINE 30 mg/dL (NEGATIVE); URINE SPECIFIC GRAVITY 1.007; UROBILINOGEN,URINE NEGATIVE mg/dL (<2.0)
[2020-01-31] MEDS: FENTANYL CITRATE/PF 600 MCG/60 ML BAG IV PRN ×5 (04:38→20:45)
[2020-01-31] MEDS ORDERED: MIDAZOLAM 2 MG/2 ML INJ ONE ×2 (05:15→11:53)
[2020-01-31] MEDS ORDERED: MIDAZOLAM 2 MG/2 ML INJ IV ONE ×2 (05:16→11:53)
[2020-01-31] MEDS: INSULIN REG, HUMAN 100 UNIT/ML 3 ML VIAL (PYX) SUBCUT SCH ×4 (05:21→23:00)
[2020-01-31 05:57] LABS: ARTERIAL BLOOD BASE EXCESS -1.8 mmol/L; ARTERIAL BLOOD H2CO3 1.74 mmol/L (1.05-1.35); ARTERIAL BLOOD HCO3 26.1 mmol/L (20-24); ARTERIAL BLOOD O2 SATURATION 95.2 % (94-98); ARTERIAL BLOOD PCO2 57.8 mmHg (35-45); ARTERIAL BLOOD PH 7.27 (7.35-7.45); ARTERIAL BLOOD PO2 86.6 mmHg (80-100); ARTERIAL BLOOD TOTAL CO2 27.8 mmol/L (23-27)
[2020-01-31 05:58] LABS: ARTERIAL BLOOD FIO2 100%
[2020-01-31 06:01] LABS: HEMATOCRIT 30.5 % (37.9-51.0); MEAN CORPUSCULAR HEMOGLOBIN 28.6 pg (27.0-33.4); MEAN CORPUSCULAR HGB CONC 32.7 g/dL (32.0-36.0); MEAN CORPUSCULAR VOLUME 88 fl (80-97); PLATELET COUNT 273 10^3/uL (150-450); RED BLOOD COUNT 3.48 10^6/uL (4.35-5.55); RED CELL DISTRIBUTION WIDTH 15.8 % (11.5-14.0); WHITE BLOOD COUNT 11.3 10^3/uL (4.0-10.5)
[2020-01-31 06:17] LABS: ABSOLUTE LYMPHOCYTES# (MANUAL) 0.7 10^3/uL (0.5-4.7); ABSOLUTE MONOCYTES # (MANUAL) 0.8 10^3/uL (0.1-1.4); ANISOCYTOSIS 1+; BASOPHILS % (MANUAL) 0 % (0-2); EOSINOPHILS % (MANUAL) 0 % (0-6); LYMPHOCYTES % (MANUAL) 6 % (13-45); MONOCYTES % (MANUAL) 7 % (3-13); PLATELET COMMENT ADEQUATE; SEGMENTED NEUTROPHILS % (MAN) 87 % (42-78); TOTAL CELLS COUNTED 100
[2020-01-31 07:05] LABS: ANION GAP 9 (5-19); BLOOD UREA NITROGEN 92 mg/dL (7-20); CALCIUM 7.4 mg/dL (8.4-10.2); CARBON DIOXIDE 25 mmol/L (22-30); CHLORIDE 111 mmol/L (98-107); GLUCOSE 322 mg/dL (75-110); PHOSPHORUS 6.5 mg/dL (2.5-4.5); POTASSIUM 3.9 mmol/L (3.6-5.0)
--- NOTE | 2020-01-31 08:08 | PDOC CRITICAL CARE PROG REPORT ---
General Date:: 01/30/20 ICU Day:: 6 Ventilator Day:: 2 Hospital Day:: 6 Resuscitation Status: Full Code Events in the past 12 to 24 Hours:: 01/28: Currently on BiPAP, FiO2 60%. Hemodynamically stable. On heparin infusion. 01/29: The patient was intubated yesterday evening for acute hypercapnic respiratory failure associated with altered mental status (obtunded). Now, the patient is on propofol and fentanyl for sedation but is mentally alert, awake and follows commands promptly. ABG this a.m.: 7.36/40 4/90 on PRVC, FiO2 70%. After intubation, thick light brown secretions were noted in the ET tube circuit. Trach aspirate was sent for Gram stain, C/S. proBNP 42,500. Triglycerides this morning were mildly elevated. Review of systems relevant to events:: Respiratory: Acute hypoxemic respiratory failure, COVID-19 pneumonia Hematologic: Normocytic anemia Renal: Chronic kidney disease Endocrine: Type 2 diabetes mellitus Neurologic: Chronic pain (right knee) Reason for ICU Addmission:: Respiratory insufficiency, bipap dependant. - Medications: Sedation:: Propofol/fentanyl Physical Exam Vital Signs: Temp Pulse Resp BP Pulse Ox 96.1 F L 85 20 120/67 91 L 01/29/20 18:00 01/30/20 08:01 01/30/20 10:00 01/30/20 13:31 01/30/20 13:31 Intake & Output 01/29/20 01/30/20 01/31/20 06:59 06:59 06:59 Intake Total 2213 141 12 Output Total 0 2050 200 Balance 2213 -1909 -188 Weight 77.9 kg 74.3 kg 74.3 kg Weight/Height Weight 74.3 kg Height 1.7 m General appearance: PRESENT: no acute distress, well-developed, well-nourished, other - Intubated Head exam: PRESENT: atraumatic, normocephalic Eye exam: PRESENT: conjunctiva pink, EOMI, PERRLA. ABSENT: scleral icterus Mouth exam: PRESENT: moist, tongue midline Neck exam: ABSENT: carotid bruit, JVD, lymphadenopathy, thyromegaly Respiratory exam: PRESENT: decreased breath sounds, rales, rhonchi. ABSENT: wheezes Cardiovascular exam: PRESENT: RRR. ABSENT: diastolic murmur, rubs, systolic murmur Pulses: PRESENT: normal dorsalis pedis pul GI/Abdominal exam: PRESENT: normal bowel sounds, soft. ABSENT: distended, guarding, mass, organolmegaly, rebound, tenderness Gentrourinary exam: PRESENT: indwelling catheter Extremities exam: PRESENT: full ROM, pedal edema, +1 edema. ABSENT: calf tenderness, clubbing Neurological exam: PRESENT: alert, awake, CN II-XII grossly intact. ABSENT: motor sensory deficit Psychiatric exam: PRESENT: appropriate affect. ABSENT: agitated, anxious Skin exam: PRESENT: dry, intact, warm. ABSENT: cyanosis, rash Tubes/Lines: PRESENT: Endotracheal Tube Laboratory/Radiographs Laboratory Results: 01/30/20 03:45 01/30/20 03:45 01/29/20 01/29/20 01/29/20 14:11 17:55 19:30 WBC RBC Hgb Hct MCV MCH MCHC RDW Plt Count Seg Neutrophils % Carbonic Acid 2.10 H 2.16 H 2.60 H HCO3/H2CO3 Ratio 12:1 11:1 10:1 ABG pH 7.20 L* 7.17 L* 7.10 L* ABG pCO2 69.7 H* 71.8 H* 86.5 H* ABG pO2 130.5 H 136.9 H 125.2 H ABG HCO3 26.7 H 25.5 H 26.5 H ABG O2 Saturation 97.8 97.9 97.0 ABG Base Excess -2.3 -3.9 -4.6 FiO2 65% 100% 100 Sodium Potassium Chloride Carbon Dioxide Anion Gap BUN Creatinine Est GFR ( Amer) Glucose Calcium Phosphorus Magnesium Total Bilirubin AST Alkaline Phosphatase Total Protein Albumin Prealbumin Triglycerides 01/29/20 01/29/20 01/30/20 21:30 21:40 03:45 WBC RBC Hgb Hct MCV MCH MCHC RDW Plt Count Seg Neutrophils % Carbonic Acid 1.63 H HCO3/H2CO3 Ratio 13:1 ABG pH 7.23 L ABG pCO2 54.2 H ABG pO2 118.7 H ABG HCO3 22.4 ABG O2 Saturation 97.6 ABG Base Excess -5.1 FiO2 100 Sodium Potassium Chloride Carbon Dioxide Anion Gap BUN Creatinine Est GFR ( Amer) Glucose Calcium Phosphorus Magnesium 2.0 Total Bilirubin AST Alkaline Phosphatase Total Protein Albumin Prealbumin Triglycerides 273 H 289 H 07/14/20 07/14/20 07/14/20 03:45 03:45 06:05 WBC 6.9 RBC 2.76 L Hgb 7.9 L Hct 24.8 L MCV 90 MCH 28.7 MCHC 31.9 L RDW 15.7 H Plt Count 258 Seg Neutrophils % 83.4 H Carbonic Acid 1.33 HCO3/H2CO3 Ratio 18:1 ABG pH 7.36 ABG pCO2 44.3 ABG pO2 90.0 ABG HCO3 24.6 H ABG O2 Saturation 96.6 ABG Base Excess -0.9 FiO2 70% Sodium 145.0 Potassium 3.8 Chloride 110 H Carbon Dioxide 24 Anion Gap 11 BUN 91 H Creatinine 4.27 H Est GFR ( Amer) 17 L Glucose 208 H Calcium 7.9 L Phosphorus 6.5 H Magnesium Total Bilirubin 0.4 AST 27 Alkaline Phosphatase 155 H Total Protein 5.4 L Albumin 2.4 L Prealbumin 9.7 L Triglycerides 01/24/20 01/24/20 01/24/20 00:03 00:03 04:20 Creatine Kinase 80 CK-MB (CK-2) 0.63 Troponin I 0.132 0.133 NT-Pro-B Natriuret Pep 90100 H 01/24/20 01/24/20 01/24/20 10:43 17:19 23:06 Creatine Kinase CK-MB (CK-2) Troponin I 0.114 0.079 0.075 NT-Pro-B Natriuret Pep 45141 H 01/30/20 03:45 Creatine Kinase CK-MB (CK-2) Troponin I NT-Pro-B Natriuret Pep 33126 H Impressions: Chest X-Ray 01/30/20 05:00 IMPRESSION: No significant change. No pneumothorax. All labs, radiographs, diagnostic studies and EKGs were personally reviewed: Yes In addition, reports of radiographic and diagnostic studies were read: Yes Assessment and Plan - Diagnosis (1) Acute respiratory failure due to severe acute respiratory syndrome coronavirus 2 (SARS-CoV-2) infection Is this a current diagnosis for this admission?: Yes Plan: Titrate vent settings based on ABG results. Titrate sedation for RASS -2. Continue Decadron 4 mg IV every 12 hours. Albuterol scheduled and as needed. Pulmicort scheduled. Continue heparin infusion. (2) Pneumonia due to COVID-19 virus Is this a current diagnosis for this admission?: Yes Plan: Currently on empiric cefepime 2 g IV nightly (10-day course). Decrease to 1 g IV nightly. Sputum Gram stain from 01/24 revealed greatly reduced normal julian. No bacterial pathogen identified. Repeat trach aspirate (01/28) after intubation demonstrated 1+ PMNs, few epithelial cells. Culture pending. Continue Plaquenil 200 mg p.o. twice daily (6-day course). (3) Acute worsening of stage 4 chronic kidney disease Is this a current diagnosis for this admission?: Yes Plan: Monitor creatinine and urine output. Renal dosing as needed. Avoid nephrotoxic medications. (4) Chronically on opiate therapy Is this a current diagnosis for this admission?: Yes (5) Elevated troponin level Is this a current diagnosis for this admission?: Yes (6) Diabetes type 2, uncontrolled Qualifiers: Glycemic state: with hyperglycemia Qualified Code(s): E11.65 - Type 2 diabetes mellitus with hyperglycemia Is this a current diagnosis for this admission?: Yes Plan: Continue sliding scale insulin. Critical Time Critical Time (minutes): 60 Level of Care: ICU -: 1. The care of a critical patient is a dynamic process. This note is a service support representative synopsis but static in nature. The timeframe for treatments given in order is not necessarily the actual time these treatments may have been done. 2. This patient requires critical care secondary to ongoing requirements for therapy not offered or safe outside the critical care environment. Transfer to a lower level of care will result in altered life or limb morbidity and mortality. 3. Multidisciplinary rounds completed. 4. ABCDE bundle addressed.
[2020-01-31] MEDS: BUDESONIDE NEB 0.25 MG/2 ML AMPUL NEB SCH ×2 (09:16→20:47)
[2020-01-31] MEDS ORDERED: POTASSIUM CHLORIDE 20 MEQ PACKET GT ONE (09:30)
[2020-01-31] MEDS ORDERED: FUROSEMIDE INJ/PF 40 MG/4 ML SDV IV ONE (09:30)
--- NOTE | 2020-01-31 09:38 | RADIOLOGY REPORT (SQ) ---
EXAM DESCRIPTION: CHEST SINGLE VIEW IMAGES COMPLETED DATE/TIME: 01/31/2020 6:47 am REASON FOR STUDY: ETT tube COMPARISON: 01/30/2020 EXAM PARAMETERS: NUMBER OF VIEWS: One view. TECHNIQUE: Single frontal radiographic view of the chest acquired. RADIATION DOSE: NA LIMITATIONS: None. FINDINGS: LUNGS AND PLEURA: Extensive multifocal alveolar opacities throughout both lungs, right gre ater than left, and stable. Likely trace bilateral effusions. No pneumothorax. MEDIASTINUM AND HILAR STRUCTURES: Stable. HEART AND VASCULAR STRUCTURES: Largely obscured, stable. BONES: No acute findings. Anterior cervical fusion hardware. HARDWARE: Endotracheal tube tip 3.3 cm above the laura. Enteric tube tip below diaphragm but exclud ed by collimation. OTHER: No other significant finding. IMPRESSION: 1. Grossly stable extensive diffuse bilateral airspace disease, right greater than left . 2. Endotracheal tube tip 3.3 cm above the laura. TECHNICAL DOCUMENTATION: JOB ID: [id number] 2010 [employer]- All Rights Reserved Reading location - IP/workstation name: [email or web address]
[2020-01-31] MEDS: DEXAMETHASONE SOD PHOS INJ 10 MG/1 ML VIAL IV SCH (09:41)
[2020-01-31] MEDS: HYDROXYCHLOROQUINE SULFATE 200 MG TABLET GT SCH ×2 (09:42→17:46)
[2020-01-31] MEDS: FAMOTIDINE INJ/PF 20 MG/2 ML SDV IV SCH (09:42)
[2020-01-31] MEDS ORDERED: FUROSEMIDE INJ/PF 20 MG/2 ML SDV IV SCH (11:00)
[2020-01-31 11:22] LABS: ARTERIAL BLOOD BASE EXCESS -3.2 mmol/L; ARTERIAL BLOOD FIO2 100%; ARTERIAL BLOOD H2CO3 1.03 mmol/L (1.05-1.35); ARTERIAL BLOOD O2 SATURATION 95.4 % (94-98); ARTERIAL BLOOD PCO2 34.3 mmHg (35-45); ARTERIAL BLOOD PO2 75.9 mmHg (80-100)
[2020-01-31] MEDS: MORPHINE SULFATE 10 MG/ML INJ IV PRN (11:46)
[2020-01-31] MEDS: FUROSEMIDE INJ/PF 20 MG/2 ML SDV IV SCH ×3 (12:00→21:03)
--- NOTE | 2020-01-31 13:09 | RADIOLOGY REPORT (SQ) ---
EXAM DESCRIPTION: CHEST SINGLE VIEW IMAGES COMPLETED DATE/TIME: 01/31/2020 12:50 pm REASON FOR STUDY: hypoxia COMPARISON: 01/31/2020 EXAM PARAMETERS: NUMBER OF VIEWS: One view. TECHNIQUE: Single frontal radiographic view of the chest acquired. RADIATION DOSE: NA LIMITATIONS: None. FINDINGS: LUNGS AND PLEURA: Extensive bilateral airspace disease, grossly stable. Likely trace effu sions. No pneumothorax. MEDIASTINUM AND HILAR STRUCTURES: Stable. HEART AND VASCULAR STRUCTURES: Stable. BONES: No acute findings. HARDWARE: Endotracheal tube tip overlies midthoracic trachea. Enteric tube tip has been advanced wit h side port distal to the GE junction. OTHER: No other significant finding. IMPRESSION: Stable extensive diffuse bilateral airspace disease, right greater left. Enteric tube side port below GE junction. TECHNICAL DOCUMENTATION: JOB ID: [id number] 2010 [employer]- All Rights Reserved Reading location - IP/workstation name: [email or web address]
--- NOTE | 2020-01-31 13:16 | EKG REPORT ---
SEVERITY:- ABNORMAL ECG - SINUS RHYTHM CONSIDER ANTEROSEPTAL INFARCT BORDERLINE T ABNORMALITIES, INFERIOR LEADS : Confirmed by: Mitesh Matta MD 31-Jan-2020 13:16:06
[2020-01-31] MEDS: DEXMEDETOMIDINE IN NS 400 MCG/100 ML RTUPB IV PRN ×3 (16:00→23:52)
[2020-01-31] MEDS ORDERED: HEPARIN SOD (PORCINE) 5,000 UNIT/ML 1 ML VIAL IV ONE (18:00)
--- NOTE | 2020-01-31 18:44 | PDOC CRITICAL CARE PROG REPORT ---
General Date:: 01/31/20 ICU Day:: 7 Ventilator Day:: 3 Hospital Day:: 7 Resuscitation Status: Full Code Events in the past 12 to 24 Hours:: 01/28: Currently on BiPAP, FiO2 60%. Hemodynamically stable. On heparin infusion. 01/29: The patient was intubated yesterday evening for acute hypercapnic respiratory failure associated with altered mental status (obtunded). Now, the patient is on propofol and fentanyl for sedation but is mentally alert, awake and follows commands promptly. ABG this a.m.: 7.36/40 4/ on PRVC, FiO2 70%. After intubation, thick light brown secretions were noted in the ET tube circuit. Trach aspirate was sent for Gram stain, C/S. proBNP 42,500. Triglycerides this morning were mildly elevated. 01/30: Remains intubated. ABG this a.m. 7.27/50 8 on PRVC 20/400/100%/8. On exam, excessively sedated. Review of medication administration record reveals that the patient had 3 doses of Versed 4 mg administered overnight. Chest x-ray shows no change, perhaps slightly improved aeration. Sedated with Precedex and fentanyl. The patient was on propofol but had elevated triglycerides, prompting change to Precedex. Review of systems relevant to events:: Respiratory: Acute hypoxemic respiratory failure, COVID-19 pneumonia Hematologic: Normocytic anemia Renal: Chronic kidney disease Endocrine: Type 2 diabetes mellitus Neurologic: Chronic pain (right knee) Reason for ICU Addmission:: Respiratory insufficiency, BiPAP dependent. - Medications: Medications reviewed and adjusted accordingly: Yes Sedation:: Precedex/fentanyl Physical Exam Vital Signs: Temp Pulse Resp BP Pulse Ox 96.1 F L 87 24 H 120/77 95 01/29/20 18:00 01/31/20 09:16 01/31/20 09:16 01/31/20 06:15 01/31/20 09:16 Intake & Output 01/30/20 01/31/20 02/01/20 06:59 06:59 06:59 Intake Total 141 1051 57 Output Total 2050 1020 Balance -1909 31 57 Weight 74.3 kg 75.4 kg Weight/Height Weight 75.4 kg Height 1.7 m General appearance: PRESENT: no acute distress, well-developed, well-nourished Head exam: PRESENT: atraumatic, normocephalic Eye exam: PRESENT: conjunctiva pink, EOMI, PERRLA. ABSENT: scleral icterus Mouth exam: PRESENT: moist, tongue midline Neck exam: ABSENT: carotid bruit, JVD, lymphadenopathy, thyromegaly Respiratory exam: PRESENT: crackles - Most prominent in the right base, decreased breath sounds. ABSENT: rhonchi, wheezes Cardiovascular exam: PRESENT: RRR. ABSENT: diastolic murmur, rubs, systolic murmur Pulses: PRESENT: normal dorsalis pedis pul GI/Abdominal exam: PRESENT: normal bowel sounds, soft. ABSENT: distended, guard ing, mass, organolmegaly, rebound, tenderness Gentrourinary exam: PRESENT: indwelling catheter Extremities exam: PRESENT: full ROM. ABSENT: calf tenderness, clubbing, pedal edema Neurological exam: PRESENT: altered, CN II-XII grossly intact. ABSENT: motor sensory deficit Psychiatric exam: ABSENT: agitated, anxious Skin exam: PRESENT: dry, intact, warm. ABSENT: cyanosis, rash Tubes/Lines: PRESENT: Endotracheal Tube, Nasogastic Tube Laboratory/Radiographs Laboratory Results: 01/31/20 05:39 01/31/20 05:39 01/30/20 01/30/20 01/31/20 13:15 21:40 04:00 WBC 8.6 RBC 3.92 L Hgb 11.2 L D Hct 34.1 L MCV 87 MCH 28.7 MCHC 32.9 RDW 15.6 H Plt Count 290 Seg Neutrophils % Not Reportable Carbonic Acid Cancelled HCO3/H2CO3 Ratio Cancelled ABG pH Cancelled ABG pCO2 Cancelled ABG pO2 Cancelled ABG HCO3 Cancelled ABG O2 Saturation Cancelled ABG Base Excess Cancelled FiO2 Cancelled Sodium Potassium Chloride Carbon Dioxide Anion Gap BUN Creatinine Est GFR ( Amer) Glucose Calcium Phosphorus Magnesium Urine Color Urine Appearance Urine pH Ur Specific [place] Urine Protein Urine Glucose (UA) Urine Ketones Urine Blood Urine Nitrite Ur Leukocyte Esterase Urine WBC (Auto) Urine RBC (Auto) Blood Type A POSITIVE Antibody Screen NEGATIVE 01/31/20 01/31/20 01/31/20 04:00 04:42 05:39 WBC 11.3 H RBC 3.48 L Hgb 10.0 L Hct 30.5 L MCV 88 MCH 28.6 MCHC 32.7 RDW 15.8 H Plt Count 273 Seg Neutrophils % Not Reportable Carbonic Acid 1.74 H HCO3/H2CO3 Ratio 15:1 ABG pH 7.27 L ABG pCO2 57.8 H ABG pO2 86.6 ABG HCO3 26.1 H ABG O2 Saturation 95.2 ABG Base Excess -1.8 FiO2 100% Sodium Potassium Chloride Carbon Dioxide Anion Gap BUN Creatinine Est GFR ( Amer) Glucose Calcium Phosphorus Magnesium Urine Color STRAW Urine Appearance SLIGHTLY-CLOUDY Urine pH 5.0 Ur Specific [place] 1.007 Urine Protein 30 H Urine Glucose (UA) >=500 H Urine Ketones NEGATIVE Urine Blood MODERATE H Urine Nitrite NEGATIVE Ur Leukocyte Esterase NEGATIVE Urine WBC (Auto) 4 Urine RBC (Auto) 1 Blood Type Antibody Screen 01/31/20 05:39 WBC RBC Hgb Hct MCV MCH MCHC RDW Plt Count Seg Neutrophils % Carbonic Acid HCO3/H2CO3 Ratio ABG pH ABG pCO2 ABG pO2 ABG HCO3 ABG O2 Saturation ABG Base Excess FiO2 Sodium 144.9 Potassium 3.9 Chloride 111 H Carbon Dioxide 25 Anion Gap 9 BUN 92 H Creatinine 4.83 H Est GFR ( Amer) 15 L Glucose 322 H Calcium 7.4 L Phosphorus 6.5 H Magnesium 2.0 Urine Color Urine Appearance Urine pH Ur Specific [place] Urine Protein Urine Glucose (UA) Urine Ketones Urine Blood Urine Nitrite Ur Leukocyte Esterase Urine WBC (Auto) Urine RBC (Auto) Blood Type Antibody Screen 01/24/20 01/24/20 01/24/20 00:03 00:03 04:20 Creatine Kinase 80 CK-MB (CK-2) 0.63 Troponin I 0.132 0.133 NT-Pro-B Natriuret Pep 07912 H 01/24/20 01/24/20 01/24/20 10:43 17:19 23:06 Creatine Kinase CK-MB (CK-2) Troponin I 0.114 0.079 0.075 NT-Pro-B Natriuret Pep 35084 H 01/30/20 01/31/20 03:45 05:39 Creatine Kinase CK-MB (CK-2) Troponin I NT-Pro-B Natriuret Pep 98367 H 29271 H Impressions: Chest X-Ray 01/31/20 05:00 IMPRESSION: 1. Grossly stable extensive diffuse bilateral airspace disease, right greater than left. 2. Endotracheal tube tip 3.3 cm above the laura. All labs, radiographs, diagnostic studies and EKGs were personally reviewed: Yes In addition, reports of radiographic and diagnostic studies were read: Yes Assessment and Plan - Diagnosis (1) Acute respiratory failure due to severe acute respiratory syndrome coronavirus 2 (SARS-CoV-2) infection Is this a current diagnosis for this admission?: Yes Plan: Titrate vent settings based on ABG results. Titrate sedation for RASS -2. Continue Decadron 4 mg IV every 12 hours. Albuterol scheduled and as needed. Pulmicort scheduled. Continue heparin infusion. Furosemide 40 mg IV single dose today. Sedation vacation (reduce fentanyl infusion to 100 mcg/h; hold Precedex) no more Versed. (2) Pneumonia due to COVID-19 virus Is this a current diagnosis for this admission?: Yes Plan: Stop cefepine, as culture data did not provide compelling indication to continue. Continue Plaquenil 200 mg p.o. twice daily (6-day course). 12-lead EKG today. (3) Acute worsening of stage 4 chronic kidney disease Is this a current diagnosis for this admission?: Yes Plan: Oliguric but seems to still respond to diuretics. Monitor creatinine and urine output. Renal dosing as needed. Avoid nephrotoxic medications. (4) Chronically on opiate therapy Is this a current diagnosis for this admission?: Yes (5) Elevated troponin level Is this a current diagnosis for this admission?: Yes (6) Diabetes type 2, uncontrolled Qualifiers: Glycemic state: with hyperglycemia Qualified Code(s): E11.65 - Type 2 diabetes mellitus with hyperglycemia Is this a current diagnosis for this admission?: Yes Plan: Continue sliding scale insulin. On Nepro 1.8. Advance to goal rate 40 mL/h, as tolerated. Critical Time Critical Time (minutes): 60 Level of Care: ICU -: 1. The care of a critical patient is a dynamic process. This note is a sales representative groceries synopsis but static in nature. The timeframe for treatments given in order is not necessarily the actual time these treatments may have been done. 2. This patient requires critical care secondary to ongoing requirements for therapy not offered or safe outside the critical care environment. Transfer to a lower level of care will result in altered life or limb morbidity and mortality. 3. Multidisciplinary rounds completed. 4. ABCDE bundle addressed.
[2020-01-31] MEDS: DEXAMETHASONE SOD PHOSPHATE INJ 4 MG/1 ML VIAL IV SCH (21:02)
[2020-02-01] MEDS: ALBUTEROL SULFATE 0.083% NEB 2.5 MG/3 ML AMPUL NEB SCH ×4 (01:03→19:54)
[2020-02-01] MEDS: FENTANYL CITRATE/PF 600 MCG/60 ML BAG IV PRN ×4 (02:30→19:25)
[2020-02-01] MEDS: DEXMEDETOMIDINE IN NS 400 MCG/100 ML RTUPB IV PRN ×5 (03:37→21:10)
[2020-02-01] MEDS: FUROSEMIDE INJ/PF 20 MG/2 ML SDV IV SCH ×3 (05:11→21:09)
[2020-02-01] MEDS: INSULIN REG, HUMAN 100 UNIT/ML 3 ML VIAL (PYX) SUBCUT SCH ×3 (05:11→17:19)
[2020-02-01 05:40] LABS: ARTERIAL BLOOD BASE EXCESS 1.6 mmol/L; ARTERIAL BLOOD H2CO3 1.31 mmol/L (1.05-1.35); ARTERIAL BLOOD HCO3 26.6 mmol/L (20-24); ARTERIAL BLOOD O2 SATURATION 91.2 % (94-98); ARTERIAL BLOOD PCO2 43.6 mmHg (35-45); ARTERIAL BLOOD PO2 60.4 mmHg (80-100)
[2020-02-01 05:41] LABS: ARTERIAL BLOOD FIO2 70%
[2020-02-01] MEDS: MORPHINE SULFATE 10 MG/ML INJ IV PRN (05:57)
[2020-02-01 06:32] LABS: HEMATOCRIT 32.3 % (37.9-51.0); HEMOGLOBIN 10.7 g/dL (13.5-17.0); MEAN CORPUSCULAR HEMOGLOBIN 28.9 pg (27.0-33.4); MEAN CORPUSCULAR HGB CONC 33.1 g/dL (32.0-36.0); MEAN CORPUSCULAR VOLUME 87 fl (80-97); PLATELET COUNT 312 10^3/uL (150-450); RED CELL DISTRIBUTION WIDTH 15.7 % (11.5-14.0)
[2020-02-01 06:47] LABS: ANION GAP 10 (5-19); BLOOD UREA NITROGEN 112 mg/dL (7-20); CALCIUM 8.2 mg/dL (8.4-10.2); CARBON DIOXIDE 26 mmol/L (22-30); CHLORIDE 109 mmol/L (98-107); GLUCOSE 345 mg/dL (75-110); PHOSPHORUS 4.4 mg/dL (2.5-4.5)
[2020-02-01 07:14] LABS: ABSOLUTE LYMPHOCYTES# (MANUAL) 0.9 10^3/uL (0.5-4.7); ABSOLUTE MONOCYTES # (MANUAL) 0.9 10^3/uL (0.1-1.4); BASOPHILS % (MANUAL) 0 % (0-2); EOSINOPHILS % (MANUAL) 0 % (0-6); LYMPHOCYTES % (MANUAL) 6 % (13-45); MONOCYTES % (MANUAL) 6 % (3-13); SEGMENTED NEUTROPHILS % (MAN) 88 % (42-78); TOTAL CELLS COUNTED 100
[2020-02-01 07:18] LABS: ANISOCYTOSIS SLIGHT; PLATELET COMMENT ADEQUATE
[2020-02-01] MEDS ORDERED: HEPARIN SOD (PORCINE) 1,000 UNIT/ML 10 ML VIAL IV ONE (08:00)
--- NOTE | 2020-02-01 08:41 | RADIOLOGY REPORT (SQ) ---
EXAM DESCRIPTION: CHEST SINGLE VIEW IMAGES COMPLETED DATE/TIME: 02/01/2020 6:05 am REASON FOR STUDY: ETT tube COMPARISON: 01/31/2020. EXAM PARAMETERS: NUMBER OF VIEWS: One view. TECHNIQUE: Single frontal radiographic view of the chest acquired. RADIATION DOSE: NA LIMITATIONS: None. FINDINGS: LUNGS AND PLEURA: Extensive bilateral airspace disease, slightly worse. MEDIASTINUM AND HILAR STRUCTURES: No masses. Contour normal. HEART AND VASCULAR STRUCTURES: Heart normal in size. Normal vasculature. BONES: No acute findings. HARDWARE: Stable endotracheal tube and nasogastric tube. Hardware in the cervical spine. OTHER: No other significant finding. IMPRESSION: SLIGHT WORSENING IN THE EXTENSIVE BILATERAL AIRSPACE DISEASE. TECHNICAL DOCUMENTATION: JOB ID: [id number] 2010 [employer]- All Rights Reserved Reading location - IP/workstation name: [email or web address]
[2020-02-01] MEDS: BUDESONIDE NEB 0.25 MG/2 ML AMPUL NEB SCH ×2 (08:44→19:54)
[2020-02-01] MEDS: DEXAMETHASONE SOD PHOSPHATE INJ 4 MG/1 ML VIAL IV SCH ×2 (09:27→21:09)
[2020-02-01] MEDS: FAMOTIDINE INJ/PF 20 MG/2 ML SDV IV SCH (09:27)
[2020-02-01] MEDS ORDERED: FAT EMULSIONS 250 ML IV SCH (10:00)
[2020-02-01] MEDS ORDERED: DESMOPRESSIN ACETATE 20 MCG in NORMAL SALINE 50 ML IV PRN (10:15)
[2020-02-01] MEDS ORDERED: SENNOSIDES/DOCUSATE 8.6-50 MG 1 EACH TABLET NG PRN (10:22)
[2020-02-01 11:13] LABS: ARTERIAL BLOOD BASE EXCESS 0.2 mmol/L; ARTERIAL BLOOD H2CO3 1.13 mmol/L (1.05-1.35); ARTERIAL BLOOD HCO3 24.3 mmol/L (20-24); ARTERIAL BLOOD O2 SATURATION 94.7 % (94-98); ARTERIAL BLOOD PCO2 37.5 mmHg (35-45); ARTERIAL BLOOD PH 7.43 (7.35-7.45); ARTERIAL BLOOD PO2 70.8 mmHg (80-100); ARTERIAL BLOOD TOTAL CO2 25.5 mmol/L (23-27)
[2020-02-01 11:14] LABS: ARTERIAL BLOOD FIO2 85%
[2020-02-01] MEDS: ACETAMINOPHEN SOLN 325 MG/10.15 ML UDCUP NG PRN (11:50)
[2020-02-01] MEDS ORDERED: MIDAZOLAM 2 MG/2 ML INJ IV ONE (14:56)
[2020-02-01] MEDS ORDERED: MIDAZOLAM 2 MG/2 ML INJ ONE (14:58)
--- NOTE | 2020-02-01 17:11 | Operative Report ---
Bedside Procedure - History of Present Illness History of Present Illness: HISTORY OF PRESENT ILLNESS: 59-year-old male, history of poorly controlled DM 2, HTN, CHF, narcotic dependence from chronic arthritis, CKD recently admitted to [facility] on 01/05/2020 for ZURDO and hyperkalemia and was discharged on 01/11/2020. Patient then returned to the ED on 01/15/2020 and was admitted for nausea vomiting associated with fatigue and dizziness. Troponins were elevated at that time with a proBNP of 29,000. During his hospital stay he was treated for pneumonia and hypoxemia which resolved. He also had a non-ST elevated DC which was thought to be related to demand ischemia in the setting of pneumonia and sepsis with poor clearance of troponins related to his CKD. Baseline creatinine is 3.2. Patient was discharged again on 01/19/2020 and returned to the emergency department on 01/23/2020 complaining of orthostatic hypotension, persistent dizziness, fever and shortness of breath. proBNP was again elevated to 17,700, Creatinine seems to be only mildly elevated from [facility]. While in the ED, patient became hypotensive to 90/60 with increased O2 requirements and at one point had become unresponsive. He was placed on BiPAP which improved his respiratory status and he is now more awake and alert. He was given 2 L of LR and started on cefepime and Levaquin. Critical care was consulted to evaluate patient for admission to the intensive care unit. We will admit him to the ICU for further work-up and treatment given his respiratory and hemodynamic instability. Indication: ACUTE HYPERCAPNIC RESPIRATORY FAILURE A time-out was completed verifying correct patient, procedure, site, positioning, and special equipment if applicable. The patient was placed in a flat position. Sedation was obtained using Versed 2 mg and etomidate 20 mg. The patient was on BiPAP support prior to intubation. The GLIDESCOPE/MAC 4 BLADE was used and inserted into the oropharynx at which time there was a Grade 1 view of the vocal cords. A 7.5-peruvian endotracheal tube was inserted and visualized going through the vocal cords. The stylette was removed. Colorimetric change was visualized on the CO2 meter. Breath sounds were heard in both lung barnett equally. The endotracheal tube was placed at 24 cm, measured at the teeth. A chest x-ray was ordered to assess for pneumothorax and verify endotracheal tube placement. Estimated Blood Loss: NONE The patient tolerated the procedure well and there were no complications. Indication for Procedure: hemodialysis Date: 01/29/20 Provider: FARAZ NUNEZ - Central Line Right Internal jugular Time completed: 17:07 Consent obtained: No Central line pre-insertion: Sterile PPE donned, Chloraprep applied, Sterile drapes applied Central line size (Fr.): 13 Central line lumen type: Other - Trialysis (R) temporary hemodialysis catheter Anesthetic type: 1% Lidocaine mL's of anesthesia: 5 Ultrasound guided: Yes CM at insertion site: 19 Line secured with sutures: Yes Central line post-insertion: Blood return from lumens, Biopatch applied, Sutured, Sterile dressing applied, Position confirmed w/ CXR Number of attempts: 1 Complications: No Notes: 02/01/20 17:08 PROCEDURE SUMMARY: A time out was performed. My hands were washed immediately prior to the procedure. I wore a surgical cap, mask with protective eyewear, full gown and sterile gloves throughout the procedure. The patient was placed in Trendelenburg position. RIGHT chest region was prepped using chlorhexidine scrub and draped in sterile fashion using a full drape and sterile probe cover employed. The medial and lateral heads of the sternocleidomastoid muscle were identified as was the carotid pulse. The INTERNAL JUGULAR VEIN was identified using the ultrasound. Anesthesia was achieved over the vein using 1% lidocaine. Using real-time out of plane guidance, the introducer needle was inserted into the INTERNAL JUGULAR VEIN vein under direct ultrasound visualization. Venous blood was withdrawn. The syringe was removed and a guidewire was advanced into the introducer needle. The guidewire was visualized in the Internal Jugular Vein by ultrasound. A small incision was made at the skin surface with a scalpel and the introducer needle was exchanged for a dilator over the guidewire. After appropriate dilation was obtained, the dilator was exchanged over the wire for a 13 Fr TRIALYSIS(R) temporary hemodialysis catheter. The wire was removed and the catheter was sutured in place at 19 cm. A Biopatch and sterile Tegaderm dressing shield was placed over the catheter at the insertion site. The patient tolerated the procedure without any hemodynamic compromise. At time of procedure completion, all ports aspirated and flushed properly. Post-procedure chest x-ray is pending at this time. Estimated blood loss is 5 mL.
--- NOTE | 2020-02-01 17:43 | PDOC CRITICAL CARE PROG REPORT ---
General Date:: 02/01/20 ICU Day:: 8 Ventilator Day:: 4 Hospital Day:: 8 Resuscitation Status: Full Code Events in the past 12 to 24 Hours:: 01/28: Currently on BiPAP, FiO2 60%. Hemodynamically stable. On heparin infusion. 01/29: The patient was intubated yesterday evening for acute hypercapnic respiratory failure associated with altered mental status (obtunded). Now, the patient is on propofol and fentanyl for sedation but is mentally alert, awake and follows commands promptly. ABG this a.m.: 7.36/40 4/90 on PRVC, FiO2 70%. After intubation, thick light brown secretions were noted in the ET tube circuit. Trach aspirate was sent for Gram stain, C/S. proBNP 42,500. Triglycerides this morning were mildly elevated. 01/30: Remains intubated. ABG this a.m. 7.27/50 8/ on PRVC 20/400/100%/8. On exam, excessively sedated. Review of medication administration record reveals that the patient had 3 doses of Versed 4 mg administered overnight. Chest x-ray shows no change, perhaps slightly improved aeration. Sedated with Precedex and fentanyl. The patient was on propofol but had elevated triglycerides, prompting change to Precedex. 01/31: Remains intubated. Sedated with Precedex/fentanyl. ABG this a.m. 7.40/44/60. 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 He was switched to pressure support ventilation and appears to be more comfortable. He has been on furosemide 10 mg IV every 8 hours. Urine output is reported to be approximately 100 mL/h. However, FiO2 is now up to 85%. Chest x-ray shows bilateral white out. Serum creatinine is now up to 5.4, BUN 112. Review of systems relevant to events:: Respiratory: Acute hypoxemic respiratory failure, COVID-19 pneumonia Hematologic: Normocytic anemia Renal: Chronic kidney disease Endocrine: Type 2 diabetes mellitus Neurologic: Chronic pain (right knee) Reason for ICU Addmission:: Respiratory insufficiency, BiPAP dependent. - Medications: Vasopressors:: None Sedation:: Precedex/fentanyl Physical Exam Vital Signs: Temp Pulse Resp BP Pulse Ox 96.1 F L 93 12 140/89 H 96 01/29/20 18:00 02/01/20 01:16 02/01/20 06:00 02/01/20 05:37 02/01/20 06:30 Intake & Output 01/31/20 02/01/20 02/02/20 06:59 06:59 06:59 Intake Total 1051 1433 Output Total 1020 2800 Balance 31 -1367 Weight 75.4 kg 74.5 kg Weight/Height Weight 74.5 kg Height 1.7 m Head exam: PRESENT: atraumatic, normocephalic Eye exam: PRESENT: conjunctiva pink, EOMI, PERRLA. ABSENT: scleral icterus Mouth exam: PRESENT: moist, tongue midline Neck exam: ABSENT: carotid bruit, JVD, lymphadenopathy, thyromegaly Respiratory exam: PRESENT: crackles, decreased breath sounds. ABSENT: rhonchi, wheezes Cardiovascular exam: PRESENT: RRR. ABSENT: diastolic murmur, rubs, systolic murmur GI/Abdominal exam: PRESENT: normal bowel sounds, soft. ABSENT: distended, guarding, mass, organolmegaly, rebound, tenderness Gentrourinary exam: PRESENT: indwelling catheter Extremities exam: PRESENT: full ROM. ABSENT: calf tenderness, clubbing, pedal edema Neurological exam: PRESENT: CN II-XII grossly intact. ABSENT: motor sensory deficit Psychiatric exam: ABSENT: agitated, anxious Skin exam: PRESENT: dry, intact, warm. ABSENT: cyanosis, rash Tubes/Lines: PRESENT: Endotracheal Tube Laboratory/Radiographs Laboratory Results: 02/01/20 06:14 02/01/20 06:14 01/31/20 02/01/20 02/01/20 10:45 05:30 06:14 WBC 15.0 H RBC 3.70 L Hgb 10.7 L Hct 32.3 L MCV 87 MCH 28.9 MCHC 33.1 RDW 15.7 H Plt Count 312 Seg Neutrophils % Not Reportable Carbonic Acid 1.03 L 1.31 HCO3/H2CO3 Ratio 20:1 20:1 ABG pH 7.40 7.40 ABG pCO2 34.3 L 43.6 ABG pO2 75.9 L 60.4 L ABG HCO3 21.0 26.6 H ABG O2 Saturation 95.4 91.2 L ABG Base Excess -3.2 1.6 FiO2 100% 70% Sodium Potassium Chloride Carbon Dioxide Anion Gap BUN Creatinine Est GFR ( Amer) Glucose Calcium Phosphorus Magnesium 02/01/20 06:14 WBC RBC Hgb Hct MCV MCH MCHC RDW Plt Count Seg Neutrophils % Carbonic Acid HCO3/H2CO3 Ratio ABG pH ABG pCO2 ABG pO2 ABG HCO3 ABG O2 Saturation ABG Base Excess FiO2 Sodium 145.2 H Potassium 4.0 Chloride 109 H Carbon Dioxide 26 Anion Gap 10 BUN 112 H Creatinine 5.38 H Est GFR ( Amer) 13 L Glucose 345 H Calcium 8.2 L Phosphorus 4.4 Magnesium 2.1 01/24/20 01/24/20 01/24/20 00:03 00:03 04:20 Creatine Kinase 80 CK-MB (CK-2) 0.63 Troponin I 0.132 0.133 NT-Pro-B Natriuret Pep 09075 H 01/24/20 01/24/20 01/24/20 10:43 17:19 23:06 Creatine Kinase CK-MB (CK-2) Troponin I 0.114 0.079 0.075 NT-Pro-B Natriuret Pep 75708 H 01/30/20 01/31/20 02/01/20 03:45 05:39 06:14 Creatine Kinase CK-MB (CK-2) Troponin I NT-Pro-B Natriuret Pep 35259 H 97897 H 03963 H All labs, radiographs, diagnostic studies and EKGs were personally reviewed: Yes In addition, reports of radiographic and diagnostic studies were read: Yes Assessment and Plan - Diagnosis (1) Acute respiratory failure due to severe acute respiratory syndrome coronavirus 2 (SARS-CoV-2) infection Is this a current diagnosis for this admission?: Yes Plan: Titrate vent settings based on ABG results. Titrate sedation for RASS -2. Decrease Decadron to 3 mg IV every 12 hours. Albuterol scheduled and as needed. Pulmicort scheduled. Hold heparin infusion in anticipation of dialysis catheter placement (restart after successful placement). Continue furosemide 10 mg IV every 8 hours. No sedation vacation today. (2) Pneumonia due to COVID-19 virus Is this a current diagnosis for this admission?: Yes Plan: Off cefepime. Continue Plaquenil 200 mg p.o. twice daily (6-day course). (3) Acute worsening of stage 4 chronic kidney disease Is this a current diagnosis for this admission?: Yes Plan: Oliguric but seems to still respond to diuretics. Monitor creatinine and urine output. Renal dosing as needed. Avoid nephrotoxic medications. I anticipate this patient will need hemodialysis catheter placed later today for hemodialysis tomorrow. (4) Chronically on opiate therapy Is this a current diagnosis for this admission?: Yes (5) Elevated troponin level Is this a current diagnosis for this admission?: Yes (6) Diabetes type 2, uncontrolled Qualifiers: Glycemic state: with hyperglycemia Qualified Code(s): E11.65 - Type 2 diab etes mellitus with hyperglycemia Is this a current diagnosis for this admission?: Yes Critical Time Critical Time (minutes): 90 Level of Care: ICU -: 1. The care of a critical patient is a dynamic process. This note is a professional healthcare representative synopsis but static in nature. The timeframe for treatments given in order is not necessarily the actual time these treatments may have been done. 2. This patient requires critical care secondary to ongoing requirements for therapy not offered or safe outside the critical care environment. Transfer to a lower level of care will result in altered life or limb morbidity and mortality. 3. Multidisciplinary rounds completed. 4. ABCDE bundle addressed.
[2020-02-01] MEDS: HEPARIN SODIUM,PORCINE/D5W 25,000 UNIT/250 ML RTUINJ IV PRN (18:08)
[2020-02-01] MEDS: HEPARIN SOD (PORCINE) 1,000 UNIT/ML 10 ML VIAL IV PRN (18:08)
--- NOTE | 2020-02-01 18:40 | RADIOLOGY REPORT (SQ) ---
EXAM DESCRIPTION: CHEST SINGLE VIEW IMAGES COMPLETED DATE/TIME: 02/01/2020 5:20 pm REASON FOR STUDY: HC catheter placement COMPARISON: None. EXAM PARAMETERS: NUMBER OF VIEWS: One view. TECHNIQUE: Single frontal radiographic view of the chest acquired. RADIATION DOSE: NA LIMITATIONS: None. FINDINGS: LUNGS AND PLEURA: Extensive pulmonary edema. MEDIASTINUM AND HILAR STRUCTURES: No masses. Contour normal. HEART AND VASCULAR STRUCTURES: Heart normal in size. Normal vasculature. BONES: No acute findings. HARDWARE: Endotracheal tube has its tip 5 cm above the laura. A right internal jugular catheter has its tip in the superior vena cava. OTHER: No other significant finding. IMPRESSION: Catheter placement as described. Extensive pulmonary edema. TECHNICAL DOCUMENTATION: JOB ID: [id number] 2010 [employer]- All Rights Reserved Reading location - IP/workstation name: [email or web address]
[2020-02-02] MEDS: ACETAMINOPHEN SOLN 325 MG/10.15 ML UDCUP NG PRN ×2 (01:05→12:16)
[2020-02-02] MEDS: INSULIN REG, HUMAN 100 UNIT/ML 3 ML VIAL (PYX) SUBCUT SCH ×2 (01:06→06:00)
[2020-02-02] MEDS: FENTANYL CITRATE/PF 600 MCG/60 ML BAG IV PRN ×4 (01:06→18:34)
[2020-02-02] MEDS: ALBUTEROL SULFATE 0.083% NEB 2.5 MG/3 ML AMPUL NEB SCH ×4 (02:19→20:21)
[2020-02-02] MEDS: DEXMEDETOMIDINE IN NS 400 MCG/100 ML RTUPB IV PRN ×4 (03:33→20:00)
[2020-02-02] MEDS: MORPHINE SULFATE 10 MG/ML INJ IV PRN ×3 (03:33→20:02)
[2020-02-02 05:39] LABS: ANION GAP 10 (5-19); CALCIUM 8.1 mg/dL (8.4-10.2); CARBON DIOXIDE 26 mmol/L (22-30); CHLORIDE 109 mmol/L (98-107); PHOSPHORUS 4.3 mg/dL (2.5-4.5); POTASSIUM 4.3 mmol/L (3.6-5.0)
[2020-02-02] MEDS: FUROSEMIDE INJ/PF 20 MG/2 ML SDV IV SCH (05:52)
[2020-02-02 05:56] LABS: BLOOD UREA NITROGEN 129 mg/dL (7-20)
[2020-02-02 05:57] LABS: GLUCOSE 466 mg/dL (75-110)
[2020-02-02] MEDS ORDERED: DEXTROSE 40% GEL 15 GM TUBE PO PRN ×2 (06:20)
[2020-02-02] MEDS ORDERED: GLUCAGON,HUMAN RECOMB 1 MG INJ IM PRN (06:20)
[2020-02-02] MEDS ORDERED: DEXTROSE 50%-WATER 25 GM/50 ML DISP.SYRIN IV PRN ×2 (06:20)
[2020-02-02 06:28] LABS: ARTERIAL BLOOD BASE EXCESS 3.5 mmol/L; ARTERIAL BLOOD FIO2 85%; ARTERIAL BLOOD H2CO3 1.27 mmol/L (1.05-1.35); ARTERIAL BLOOD PCO2 42.1 mmHg (35-45); ARTERIAL BLOOD PH 7.44 (7.35-7.45); ARTERIAL BLOOD PO2 88.7 mmHg (80-100); ARTERIAL BLOOD TOTAL CO2 29.3 mmol/L (23-27)
[2020-02-02] MEDS ORDERED: INSULIN REG, HUMAN 100 UNIT/ML 3 ML VIAL (PYX) ONE (06:28)
[2020-02-02 06:33] LABS: APPEARANCE,URINE CLOUDY; BILIRUBIN,URINE NEGATIVE (NEGATIVE); COLOR,URINE STRAW; GLUCOSE, URINE >=500 mg/dL (NEGATIVE); KETONES,URINE NEGATIVE (NEGATIVE); LEUKOCYTE ESTERASE,URINE TRACE (NEGATIVE); NITRITE,URINE NEGATIVE (NEGATIVE); PROTEIN,URINE 30 mg/dL (NEGATIVE); URINE SPECIFIC GRAVITY 1.009; UROBILINOGEN,URINE NEGATIVE mg/dL (<2.0)
[2020-02-02] MEDS: NORMAL SALINE 100 ML with INSULIN REGULAR, HUMAN 100 UNIT IV PRN ×2 (06:55)
--- NOTE | 2020-02-02 08:19 | RADIOLOGY REPORT (SQ) ---
EXAM DESCRIPTION: CHEST SINGLE VIEW IMAGES COMPLETED DATE/TIME: 02/02/2020 5:44 am REASON FOR STUDY: ETT tube COMPARISON: None. NUMBER OF VIEWS: One view. TECHNIQUE: Single frontal radiographic image of the chest acquired. LIMITATIONS: None. FINDINGS: LUNGS AND PLEURA: Stable appearance. MEDIASTINUM AND HILAR STRUCTURES: Stable heart size and mediastinal structures. HEART AND VASCULAR STRUCTURES: Stable appearance. SUPPORT DEVICES: Appropriate location without change. BONES: No acute findings. OTHER: No other significant finding. IMPRESSION: STABLE APPEARANCE OF THE CHEST. SUPPORT DEVICES UNCHANGED. TECHNICAL DOCUMENTATION: JOB ID: [id number] 2010 [email or web address] All Rights Reserved Reading location - IP/workstation name: [email or web address]
[2020-02-02] MEDS: BUDESONIDE NEB 0.25 MG/2 ML AMPUL NEB SCH ×2 (08:41→20:20)
[2020-02-02] MEDS: HYDROXYCHLOROQUINE SULFATE 200 MG TABLET NG SCH ×2 (09:22→17:42)
[2020-02-02] MEDS: DEXAMETHASONE SOD PHOSPHATE INJ 4 MG/1 ML VIAL IV SCH ×2 (09:24→21:14)
[2020-02-02] MEDS: METOPROLOL TARTRATE 25 MG TABLET NG SCH ×2 (09:24→21:10)
[2020-02-02] MEDS: FAMOTIDINE INJ/PF 20 MG/2 ML SDV IV SCH (09:25)
[2020-02-02] MEDS ORDERED: HEPARIN SOD (PORCINE) 1,000 UNIT/ML 10 ML VIAL IV PRN (10:51)
--- NOTE | 2020-02-02 15:00 | PDOC CRITICAL CARE PROG REPORT ---
General Date:: 02/02/20 ICU Day:: 9 Ventilator Day:: 5 Hospital Day:: 9 Resuscitation Status: Full Code Events in the past 12 to 24 Hours:: 01/28: Currently on BiPAP, FiO2 60%. Hemodynamically stable. On heparin infusion. 01/29: The patient was intubated yesterday evening for acute hypercapnic respiratory failure associated with altered mental status (obtunded). Now, the patient is on propofol and fentanyl for sedation but is mentally alert, awake and follows commands promptly. ABG this a.m.: 7.36/40 4 on PRVC, FiO2 70%. After intubation, thick light brown secretions were noted in the ET tube circuit. Trach aspirate was sent for Gram stain, C/S. proBNP 42,500. Triglycerides this morning were mildly elevated. 01/30: Remains intubated. ABG this a.m. 7.27/50 8 on PRVC 20/400/100%/8. On exam, excessively sedated. Review of medication administration record reveals that the patient had 3 doses of Versed 4 mg administered overnight. Chest x-ray shows no change, perhaps slightly improved aeration. Sedated with Precedex and fentanyl. The patient was on propofol but had elevated triglycerides, prompting change to Precedex. 01/31: Remains intubated. Sedated with Precedex/fentanyl. ABG this a.m. 7.40/44/60. 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 He was switched to pressure support ventilation and appears to be more comfortable. He has been on furosemide 10 mg IV every 8 hours. Urine output is reported to be approximately 100 mL/h. However, FiO2 is now up to 85%. Chest x-ray shows bilateral white out. Serum creatinine is now up to 5.4, BUN 112. 02/01: Remains intubated. On pressure support 06/27, FiO2 85%. SPO2 100%. Sedated with Precedex/fentanyl. HD anticipated today. ABG this a.m. 7.44/42/89. BUN 129, creatinine 5.4. proBNP 75,500. Chest x-ray continues to show bilateral infiltrates. Started on insulin infusion overnight due to rising glucose. Review of systems relevant to events:: Respiratory: Acute hypoxemic respiratory failure, COVID-19 pneumonia Hematologic: Normocytic anemia Renal: Chronic kidney disease Endocrine: Type 2 diabetes mellitus Neurologic: Chronic pain (right knee) Reason for ICU Addmission:: Respiratory insufficiency, BiPAP dependent. - Medications: Medications reviewed and adjusted accordingly: Yes Physical Exam Vital Signs: Temp Pulse Resp BP Pulse Ox 100.9 F H 103 H 10 L 155/88 H 99 02/02/20 08:00 02/02/20 08:00 02/02/20 08:00 02/02/20 08:00 02/02/20 08:00 Intake & Output 02/01/20 02/02/20 02/03/20 06:59 06:59 06:59 Intake Total 1433 1118 3 Output Total 2800 3315 300 Balance -2817 -1843 -297 Weight 74.5 kg 71.6 kg Weight/Height Weight 71.6 kg Height 1.89 m General appearance: PRESENT: no acute distress, well-developed, well-nourished, other - Intubated, sedated Head exam: PRESENT: atraumatic, normocephalic Eye exam: PRESENT: conjunctiva pink, EOMI, PERRLA. ABSENT: scleral icterus Mouth exam: PRESENT: moist, tongue midline Neck exam: ABSENT: carotid bruit, JVD, lymphadenopathy, thyromegaly Respiratory exam: PRESENT: crackles, decreased breath sounds. ABSENT: rales, rhonchi, wheezes Cardiovascular exam: PRESENT: RRR. ABSENT: diastolic murmur, rubs, systolic murmur GI/Abdominal exam: PRESENT: normal bowel sounds, soft. ABSENT: distended, guarding, mass, organolmegaly, rebound, tenderness Extremities exam: PRESENT: full ROM, pedal edema, +1 edema. ABSENT: calf tenderness, clubbing Musculoskeletal exam: PRESENT: normal inspection. ABSENT: deformity Neurological exam: PRESENT: altered, CN II-XII grossly intact. ABSENT: motor sensory deficit Psychiatric exam: ABSENT: agitated, anxious Skin exam: PRESENT: dry, intact, warm. ABSENT: cyanosis, rash Tubes/Lines: PRESENT: Endotracheal Tube, Dialysis catheter - Trialysis HD catheter (right IJ) Laboratory/Radiographs Laboratory Results: 02/01/20 06:14 02/02/20 04:24 02/01/20 02/02/20 02/02/20 10:35 04:24 06:20 Carbonic Acid 1.13 1.27 HCO3/H2CO3 Ratio 21:1 22:1 ABG pH 7.43 7.44 ABG pCO2 37.5 42.1 ABG pO2 70.8 L 88.7 ABG HCO3 24.3 H 28.0 H ABG O2 Saturation 94.7 97.0 ABG Base Excess 0.2 3.5 FiO2 85% 85% Sodium 145.2 H Potassium 4.3 Chloride 109 H Carbon Dioxide 26 Anion Gap 10 BUN 129 H Creatinine 5.41 H Est GFR ( Amer) 13 L Glucose 466 H* Calcium 8.1 L Phosphorus 4.3 Magnesium 2.2 Urine Color Urine Appearance Urine pH Ur Specific Andrews Urine Protein Urine Glucose (UA) Urine Ketones Urine Blood Urine Nitrite Ur Leukocyte Esterase Urine WBC (Auto) Urine RBC (Auto) 02/02/20 06:20 Carbonic Acid HCO3/H2CO3 Ratio ABG pH ABG pCO2 ABG pO2 ABG HCO3 ABG O2 Saturation ABG Base Excess FiO2 Sodium Potassium Chloride Carbon Dioxide Anion Gap BUN Creatinine Est GFR ( Amer) Glucose Calcium Phosphorus Magnesium Urine Color STRAW Urine Appearance CLOUDY Urine pH 6.0 Ur Specific Andrews 1.009 Urine Protein 30 H Urine Glucose (UA) >=500 H Urine Ketones NEGATIVE Urine Blood MODERATE H Urine Nitrite NEGATIVE Ur Leukocyte Esterase TRACE H Urine WBC (Auto) 3 Urine RBC (Auto) 3 01/29/20 23:15 Tracheal Aspirate Gram Stain - Final 01/29/20 23:15 Tracheal Aspirate Sputum Culture - Final C.albicans/C.dubliniensis Normal Kathie Absent 01/24/20 01/24/20 01/24/20 00:03 00:03 04:20 Creatine Kinase 80 CK-MB (CK-2) 0.63 Troponin I 0.132 0.133 NT-Pro-B Natriuret Pep 35601 H 01/24/20 01/24/20 01/24/20 10:43 17:19 23:06 Creatine Kinase CK-MB (CK-2) Troponin I 0.114 0.079 0.075 NT-Pro-B Natriuret Pep 08440 H 01/30/20 01/31/20 02/01/20 03:45 05:39 06:14 Creatine Kinase CK-MB (CK-2) Troponin I NT-Pro-B Natriuret Pep 15090 H 68710 H 91355 H 02/02/20 04:24 Creatine Kinase CK-MB (CK-2) Troponin I NT-Pro-B Natriuret Pep 80197 H Impressions: Chest X-Ray 02/02/20 05:00 IMPRESSION: STABLE APPEARANCE OF THE CHEST. SUPPORT DEVICES UNCHANGED. All labs, radiographs, diagnostic studies and EKGs were personally reviewed: Yes In addition, reports of radiographic and diagnostic studies were read: Yes Assessment and Plan - Diagnosis (1) Acute respiratory failure due to severe acute respiratory syndrome co ronavirus 2 (SARS-CoV-2) infection Is this a current diagnosis for this admission?: Yes Plan: Titrate vent settings based on ABG results. Titrate sedation for RASS -2. Decrease Decadron to 2 mg IV every 12 hours. Albuterol scheduled and as needed. Pulmicort scheduled. Hold furosemide 10 mg IV every 8 hours in anticipation of hemodialysis. No sedation vacation today. (2) Pneumonia due to COVID-19 virus Is this a current diagnosis for this admission?: Yes Plan: Off cefepime. Completed 4 of 6 days of Plaquenil 200 mg p.o. twice daily. Will resume to complete course. (3) Acute worsening of stage 4 chronic kidney disease Is this a current diagnosis for this admission?: Yes Plan: Case discussed with Dr. Valdes. I have ongoing concerns with his high PEEP requirement (10 cm H2O) and high FiO2 (85%). With the weekend approaching and lack of dialysis support during the weekend, I am requesting HD today. I agree that the patient does appear to be in a post-ATN diuresis phase. Perhaps, the patient will need only 1 HD session. I will also discontinue his Lasix. Monitor creatinine and urine output. Renal dosing as needed. Avoid nephrotoxic medications. (4) Chronically on opiate therapy Is this a current diagnosis for this admission?: Yes (5) Elevated troponin level Is this a current diagnosis for this admission?: Yes Plan: On heparin infusion. Start Lopressor 25 mg NG twice daily. (6) Diabetes type 2, uncontrolled Qualifiers: Glycemic state: with hyperglycemia Qualified Code(s): E11.65 - Type 2 diabetes mellitus with hyperglycemia Is this a current diagnosis for this admission?: Yes Plan: Continue insulin infusion. Will need to watch Accu-Cheks closely with hemodialysis. On Nepro 1.8. Advance to goal rate 40 mL/h, as tolerated. Critical Time Critical Time (minutes): 60 Level of Care: ICU -: 1. The care of a critical patient is a dynamic process. This note is a sales promotion representative synopsis but static in nature. The timeframe for treatments given in order is not necessarily the actual time these treatments may have been done. 2. This patient requires critical care secondary to ongoing requirements for therapy not offered or safe outside the critical care environment. Transfer to a lower level of care will result in altered life or limb morbidity and mortality. 3. Multidisciplinary rounds completed. 4. ABCDE bundle addressed.
[2020-02-02 18:01] LABS: ARTERIAL BLOOD BASE EXCESS 4.1 mmol/L; ARTERIAL BLOOD FIO2 80%; ARTERIAL BLOOD H2CO3 1.17 mmol/L (1.05-1.35); ARTERIAL BLOOD HCO3 27.9 mmol/L (20-24); ARTERIAL BLOOD O2 SATURATION 99.1 % (94-98); ARTERIAL BLOOD PH 7.47 (7.35-7.45); ARTERIAL BLOOD PO2 153.3 mmHg (80-100); ARTERIAL BLOOD TOTAL CO2 29.1 mmol/L (23-27)
[2020-02-02 18:53] LABS: ANION GAP 5 (5-19); CALCIUM 8.1 mg/dL (8.4-10.2); CARBON DIOXIDE 33 mmol/L (22-30); CHLORIDE 105 mmol/L (98-107); GLUCOSE 155 mg/dL (75-110); POTASSIUM 3.6 mmol/L (3.6-5.0)
[2020-02-02 19:06] LABS: BLOOD UREA NITROGEN 80 mg/dL (7-20)
[2020-02-02] MEDS: HEPARIN SODIUM,PORCINE/D5W 25,000 UNIT/250 ML RTUINJ IV PRN (19:10)
[2020-02-03] MEDS: DEXMEDETOMIDINE IN NS 400 MCG/100 ML RTUPB IV PRN ×5 (01:37→20:55)
[2020-02-03] MEDS: FENTANYL CITRATE/PF 600 MCG/60 ML BAG IV PRN ×3 (02:35→17:31)
[2020-02-03] MEDS: ALBUTEROL SULFATE 0.083% NEB 2.5 MG/3 ML AMPUL NEB SCH ×4 (02:35→19:48)
[2020-02-03] MEDS: NORMAL SALINE 100 ML with INSULIN REGULAR, HUMAN 100 UNIT IV PRN ×2 (02:46)
[2020-02-03] MEDS: MORPHINE SULFATE 10 MG/ML INJ IV PRN (03:54)
[2020-02-03] MEDS: HEPARIN SOD (PORCINE) 1,000 UNIT/ML 10 ML VIAL IV PRN ×2 (05:53→23:15)
[2020-02-03 06:37] LABS: HEPATITS B SURFACE ANTIGEN Negative (Negative)
[2020-02-03] MEDS: BUDESONIDE NEB 0.25 MG/2 ML AMPUL NEB SCH ×2 (08:39→19:48)
[2020-02-03 09:07] LABS: ARTERIAL BLOOD BASE EXCESS 5.3 mmol/L; ARTERIAL BLOOD H2CO3 1.26 mmol/L (1.05-1.35); ARTERIAL BLOOD HCO3 29.5 mmol/L (20-24); ARTERIAL BLOOD O2 SATURATION 95.5 % (94-98); ARTERIAL BLOOD PH 7.47 (7.35-7.45); ARTERIAL BLOOD PO2 73.2 mmHg (80-100); ARTERIAL BLOOD TOTAL CO2 30.8 mmol/L (23-27)
[2020-02-03 09:08] LABS: ARTERIAL BLOOD FIO2 80%
[2020-02-03] MEDS: DEXAMETHASONE SOD PHOSPHATE INJ 4 MG/1 ML VIAL IV SCH ×2 (09:26→21:14)
[2020-02-03] MEDS: METOPROLOL TARTRATE 25 MG TABLET NG SCH ×2 (09:26→21:18)
[2020-02-03] MEDS: FAMOTIDINE INJ/PF 20 MG/2 ML SDV IV SCH (09:26)
[2020-02-03] MEDS: HYDROXYCHLOROQUINE SULFATE 200 MG TABLET NG SCH ×2 (09:27→18:01)
[2020-02-03 13:42] LABS: ARTERIAL BLOOD BASE EXCESS 5.4 mmol/L; ARTERIAL BLOOD H2CO3 1.25 mmol/L (1.05-1.35); ARTERIAL BLOOD HCO3 29.5 mmol/L (20-24); ARTERIAL BLOOD O2 SATURATION 95.4 % (94-98); ARTERIAL BLOOD PCO2 41.4 mmHg (35-45); ARTERIAL BLOOD PH 7.47 (7.35-7.45); ARTERIAL BLOOD PO2 72.5 mmHg (80-100); ARTERIAL BLOOD TOTAL CO2 30.8 mmol/L (23-27)
[2020-02-03 13:47] LABS: HEPATITIS B CORE AB TOT Negative (Negative)
[2020-02-03 13:53] LABS: ARTERIAL BLOOD FIO2 80%
[2020-02-03] MEDS: HEPARIN SODIUM,PORCINE/D5W 25,000 UNIT/250 ML RTUINJ IV PRN (17:33)
[2020-02-03 17:49] LABS: ALBUMIN 2.7 g/dL (3.5-5.0); ALKALINE PHOSPHATASE 152 U/L (38-126); ANION GAP 8 (5-19); ASPARTATE AMINO TRANSFERASE 39 U/L (17-59); BILIRUBIN,DIRECT 0.1 mg/dL (0.0-0.4); BILIRUBIN,TOTAL 0.5 mg/dL (0.2-1.3); CALCIUM 8.4 mg/dL (8.4-10.2); CARBON DIOXIDE 29 mmol/L (22-30); CHLORIDE 106 mmol/L (98-107); GLUCOSE 190 mg/dL (75-110); PHOSPHORUS 3.5 mg/dL (2.5-4.5); POTASSIUM 4.3 mmol/L (3.6-5.0); TOTAL PROTEIN 6.1 g/dL (6.3-8.2)
[2020-02-03 17:51] LABS: BLOOD UREA NITROGEN 101 mg/dL (7-20)
[2020-02-04] MEDS: FENTANYL CITRATE/PF 600 MCG/60 ML BAG IV PRN ×3 (00:32→16:10)
[2020-02-04] MEDS: DEXMEDETOMIDINE IN NS 400 MCG/100 ML RTUPB IV PRN ×4 (01:53→18:08)
[2020-02-04] MEDS: ALBUTEROL SULFATE 0.083% NEB 2.5 MG/3 ML AMPUL NEB SCH ×4 (02:29→19:54)
[2020-02-04] MEDS: NORMAL SALINE 100 ML with INSULIN REGULAR, HUMAN 100 UNIT IV PRN ×2 (02:37)
[2020-02-04 05:50] LABS: ARTERIAL BLOOD BASE EXCESS 2.8 mmol/L; ARTERIAL BLOOD H2CO3 1.21 mmol/L (1.05-1.35); ARTERIAL BLOOD HCO3 27.1 mmol/L (20-24); ARTERIAL BLOOD O2 SATURATION 99.1 % (94-98); ARTERIAL BLOOD PCO2 40.1 mmHg (35-45); ARTERIAL BLOOD PH 7.45 (7.35-7.45); ARTERIAL BLOOD PO2 159.7 mmHg (80-100); ARTERIAL BLOOD TOTAL CO2 28.3 mmol/L (23-27)
[2020-02-04 05:52] LABS: ARTERIAL BLOOD FIO2 80%
[2020-02-04 06:33] LABS: ANION GAP 6 (5-19); BLOOD UREA NITROGEN 109 mg/dL (7-20); CALCIUM 8.2 mg/dL (8.4-10.2); CARBON DIOXIDE 32 mmol/L (22-30); CHLORIDE 107 mmol/L (98-107); GLUCOSE 161 mg/dL (75-110); PHOSPHORUS 3.9 mg/dL (2.5-4.5); POTASSIUM 3.9 mmol/L (3.6-5.0)
[2020-02-04 06:39] LABS: HEMATOCRIT 27.8 % (37.9-51.0); MEAN CORPUSCULAR HEMOGLOBIN 28.5 pg (27.0-33.4); MEAN CORPUSCULAR HGB CONC 32.4 g/dL (32.0-36.0); MEAN CORPUSCULAR VOLUME 88 fl (80-97); PLATELET COUNT 192 10^3/uL (150-450); RED BLOOD COUNT 3.16 10^6/uL (4.35-5.55); RED CELL DISTRIBUTION WIDTH 15.2 % (11.5-14.0); WHITE BLOOD COUNT 22.9 10^3/uL (4.0-10.5)
[2020-02-04 06:52] LABS: ABSOLUTE LYMPHOCYTES# (MANUAL) 1.1 10^3/uL (0.5-4.7); ABSOLUTE MONOCYTES # (MANUAL) 1.1 10^3/uL (0.1-1.4); BASOPHILS % (MANUAL) 0 % (0-2); EOSINOPHILS % (MANUAL) 0 % (0-6); LYMPHOCYTES % (MANUAL) 5 % (13-45); MONOCYTES % (MANUAL) 5 % (3-13); SEGMENTED NEUTROPHILS % (MAN) 90 % (42-78); TOTAL CELLS COUNTED 100
[2020-02-04 06:53] LABS: ANISOCYTOSIS 1+; PLATELET COMMENT ADEQUATE; POLYCHROMASIA 1+
--- NOTE | 2020-02-04 08:33 | RADIOLOGY REPORT (SQ) ---
EXAM DESCRIPTION: CHEST SINGLE VIEW IMAGES COMPLETED DATE/TIME: 02/04/2020 5:48 am REASON FOR STUDY: ETT tube COMPARISON: 02/02/2020 NUMBER OF VIEWS: One view. TECHNIQUE: Single frontal radiographic image of the chest acquired. LIMITATIONS: None. FINDINGS: LUNGS AND PLEURA: Diffuse bilateral airspace disease with slight improved aeration in the right lower lobe. No pneumothorax. MEDIASTINUM AND HEART: Stable heart size and mediastinal structures. SUPPORT DEVICES: Appropriate location without change. BONY STRUCTURES: No acute findings. HARDWARE: None. OTHER: No other significant finding. IMPRESSION: Slight improvement. No pneumothorax. Reading location - IP/workstation name: [email or web address]
[2020-02-04] MEDS: BUDESONIDE NEB 0.25 MG/2 ML AMPUL NEB SCH ×2 (08:36→19:54)
--- NOTE | 2020-02-04 09:03 | PDOC CRITICAL CARE PROG REPORT ---
General Date:: 02/03/20 ICU Day:: 10 Ventilator Day:: 6 Hospital Day:: 10 Resuscitation Status: Full Code Events in the past 12 to 24 Hours:: 01/28: Currently on BiPAP, FiO2 60%. Hemodynamically stable. On heparin infusi on. 01/29: The patient was intubated yesterday evening for acute hypercapnic respiratory failure associated with altered mental status (obtunded). Now, the patient is on propofol and fentanyl for sedation but is mentally alert, awake and follows commands promptly. ABG this a.m.: 7.36/40 4 on PRVC, FiO2 70%. After intubation, thick light brown secretions were noted in the ET tube circuit. Trach aspirate was sent for Gram stain, C/S. proBNP 42,500. Triglycerides this morning were mildly elevated. 01/30: Remains intubated. ABG this a.m. 7.27/50 8 on PRVC 20/400/100%/8. On exam, excessively sedated. Review of medication administration record reveals that the patient had 3 doses of Versed 4 mg administered overnight. Chest x-ray shows no change, perhaps slightly improved aeration. Sedated with Precedex and fentanyl. The patient was on propofol but had elevated triglycerides, prompting change to Precedex. 01/31: Remains intubated. Sedated with Precedex/fentanyl. ABG this a.m. 7.40/44/60. 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 He was switched to pressure support ventilation and appears to be more comfortable. He has been on furosemide 10 mg IV every 8 hours. Urine output is reported to be approximately 100 mL/h. However, FiO2 is now up to 85%. Chest x-ray shows bilateral white out. Serum creatinine is now up to 5.4, BUN 112. 02/01: Remains intubated. On pressure support 06/27, FiO2 85%. SPO2 100%. Sedated with Precedex/fentanyl. HD anticipated today. ABG this a.m. 7.44/42/89. BUN 129, creatinine 5.4. proBNP 75,500. Chest x-ray continues to show bilateral infiltrates. Started on insulin infusion overnight due to rising glucose. 02/02: Remains intubated. On pressure support 06/25, FiO2 80%. SPO2 92%. Sedated with Precedex/fentanyl. HD performed yesterday, net -200 mL. ABG this a.m.: 7.47/42/73. On and off insulin infusion. Chest x-ray continues to show bilateral infiltrates. No significant change in the interim. Review of systems relevant to events:: Respiratory: Acute hypoxemic respiratory failure, COVID-19 pneumonia Hematologic: Normocytic anemia Renal: Chronic kidney disease Endocrine: Type 2 diabetes mellitus Neurologic: Chronic pain (right knee) Reason for ICU Addmission:: Respiratory insufficiency, BiPAP dependent. - Medications: Sedation:: Precedex/fentanyl Physical Exam Vital Signs: Temp Pulse Resp BP Pulse Ox 100.2 F 98 27 H 134/95 H 92 02/03/20 06:00 02/03/20 08:40 02/03/20 10:00 02/03/20 09:59 02/03/20 10:00 Intake & Output 02/02/20 02/03/20 02/04/20 06:59 06:59 06:59 Intake Total 1118 2619 108 Output Total 3315 3295 250 Balance -2197 -676 -142 Weight 71.6 kg 70.6 kg Weight/Height Weight 70.6 kg Height 1.89 m General appearance: PRESENT: no acute distress, well-developed, well-nourished, other - Intubated and sedated. Pale. Head exam: PRESENT: atraumatic, normocephalic Eye exam: PRESENT: conjunctiva pink, EOMI, PERRLA. ABSENT: scleral icterus Mouth exam: PRESENT: moist, tongue midline Neck exam: ABSENT: carotid bruit, JVD, lymphadenopathy, thyromegaly Respiratory exam: PRESENT: crackles, decreased breath sounds Cardiovascular exam: PRESENT: RRR. ABSENT: diastolic murmur, rubs, systolic murmur GI/Abdominal exam: PRESENT: normal bowel sounds, soft. ABSENT: distended, guarding, mass, organolmegaly, rebound, tenderness Extremities exam: PRESENT: full ROM. ABSENT: calf tenderness, clubbing, pedal edema Musculoskeletal exam: PRESENT: normal inspection. ABSENT: deformity Neurological exam: PRESENT: altered, CN II-XII grossly intact. ABSENT: motor sensory deficit Psychiatric exam: ABSENT: agitated, anxious Skin exam: PRESENT: dry, intact, warm. ABSENT: cyanosis, rash Tubes/Lines: PRESENT: Endotracheal Tube, Dialysis catheter - Right IJ, Nasogastic Tube Laboratory/Radiographs Laboratory Results: 02/01/20 06:14 02/02/20 17:35 02/02/20 02/02/20 02/03/20 17:35 17:35 08:45 Carbonic Acid 1.17 1.26 HCO3/H2CO3 Ratio 23:1 23:1 ABG pH 7.47 H 7.47 H ABG pCO2 39.0 42.0 ABG pO2 153.3 H 73.2 L ABG HCO3 27.9 H 29.5 H ABG O2 Saturation 99.1 H 95.5 ABG Base Excess 4.1 5.3 FiO2 80% 80% Sodium 142.5 Potassium 3.6 Chloride 105 Carbon Dioxide 33 H Anion Gap 5 BUN 80 H D Creatinine 3.58 H Est GFR ( Amer) 21 L Glucose 155 H Calcium 8.1 L Magnesium 2.1 01/24/20 01/24/20 01/24/20 00:03 00:03 04:20 Creatine Kinase 80 CK-MB (CK-2) 0.63 Troponin I 0.132 0.133 NT-Pro-B Natriuret Pep 30970 H 01/24/20 01/24/20 01/24/20 10:43 17:19 23:06 Creatine Kinase CK-MB (CK-2) Troponin I 0.114 0.079 0.075 NT-Pro-B Natriuret Pep 40782 H 01/30/20 01/31/20 02/01/20 03:45 05:39 06:14 Creatine Kinase CK-MB (CK-2) Troponin I NT-Pro-B Natriuret Pep 94323 H 87528 H 86526 H 02/02/20 04:24 Creatine Kinase CK-MB (CK-2) Troponin I NT-Pro-B Natriuret Pep 37412 H Impressions: Chest X-Ray 02/02/20 05:00 IMPRESSION: STABLE APPEARANCE OF THE CHEST. SUPPORT DEVICES UNCHANGED. All labs, radiographs, diagnostic studies and EKGs were personally reviewed: Yes In addition, reports of radiographic and diagnostic studies were read: Yes Assessment and Plan - Diagnosis (1) Acute respiratory failure due to severe acute respiratory syndrome coronavirus 2 (SARS-CoV-2) infection Is this a current diagnosis for this admission?: Yes Plan: Worsening ARDS. Titrate vent settings based on ABG results. Titrate sedation for RASS -2. Decrease Decadron to 1 mg IV every 8 hours. Albuterol scheduled and as needed. Pulmicort scheduled. No sedation vacation today. (2) Pneumonia due to COVID-19 virus Is this a current diagnosis for this admission?: Yes Plan: Off cefepime. On Plaquenil 200 mg p.o. twice daily. Will resume to complete course. Will need to inquire about Actemra. (3) Acute worsening of stage 4 chronic kidney disease Is this a current diagnosis for this admission?: Yes Plan: Monitor creatinine and urine output. Renal dosing as needed. Avoid nephrotoxic medications. (4) Chronically on opiate therapy Is this a current diagnosis for this admission?: Yes (5) Elevated troponin level Is this a current diagnosis for this admission?: Yes (6) Diabetes type 2, uncontrolled Qualifiers: Glycemic state: with hyperglycemia Qualified Code(s): E11.65 - Type 2 diabetes mellitus with hyperglycemia Is this a current diagnosis for this admission?: Yes Plan: Continue insulin infusion. Will need to watch Accu-Cheks closely with hemodialysis. On Nepro 1.8 at goal. Critical Time Critical Time (minutes): 60 Level of Care: ICU -: 1. The care of a critical patient is a dynamic process. This note is a hvac sales representative synopsis but static in nature. The timeframe for treatments given in order is not necessarily the actual time these treatments may have been done. 2. This patient requires critical care secondary to ongoing requirements for therapy not offered or safe outside the critical care environment. Transfer to a lower level of care will result in altered life or limb morbidity and mortality. 3. Multidisciplinary rounds completed. 4. ABCDE bundle addressed.
[2020-02-04] MEDS: METOPROLOL TARTRATE 25 MG TABLET NG SCH ×2 (09:52→22:05)
[2020-02-04] MEDS: FAMOTIDINE INJ/PF 20 MG/2 ML SDV IV SCH (09:52)
[2020-02-04] MEDS: DEXAMETHASONE SOD PHOSPHATE INJ 4 MG/1 ML VIAL IV SCH ×2 (09:55→22:06)
[2020-02-04] MEDS: FUROSEMIDE INJ/PF 20 MG/2 ML SDV IV SCH ×2 (11:35→17:28)
[2020-02-04] MEDS: HEPARIN SODIUM,PORCINE/D5W 25,000 UNIT/250 ML RTUINJ IV PRN (13:41)
--- NOTE | 2020-02-04 18:44 | PDOC CRITICAL CARE PROG REPORT ---
General Date:: 02/04/20 ICU Day:: 11 Ventilator Day:: 7 Hospital Day:: 11 Resuscitation Status: Full Code Events in the past 12 to 24 Hours:: 01/28: Currently on BiPAP, FiO2 60%. Hemodynamically stable. On heparin infusi on. 01/29: The patient was intubated yesterday evening for acute hypercapnic respiratory failure associated with altered mental status (obtunded). Now, the patient is on propofol and fentanyl for sedation but is mentally alert, awake and follows commands promptly. ABG this a.m.: 7.36/40 4 on PRVC, FiO2 70%. After intubation, thick light brown secretions were noted in the ET tube circuit. Trach aspirate was sent for Gram stain, C/S. proBNP 42,500. Triglycerides this morning were mildly elevated. 01/30: Remains intubated. ABG this a.m. 7.27/50 8 on PRVC 20/400/100%/8. On exam, excessively sedated. Review of medication administration record reveals that the patient had 3 doses of Versed 4 mg administered overnight. Chest x-ray shows no change, perhaps slightly improved aeration. Sedated with Precedex and fentanyl. The patient was on propofol but had elevated triglycerides, prompting change to Precedex. 01/31: Remains intubated. Sedated with Precedex/fentanyl. ABG this a.m. 7.40/44/60. 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 He was switched to pressure support ventilation and appears to be more comfortable. He has been on furosemide 10 mg IV every 8 hours. Urine output is reported to be approximately 100 mL/h. However, FiO2 is now up to 85%. Chest x-ray shows bilateral white out. Serum creatinine is now up to 5.4, BUN 112. 02/01: Remains intubated. On pressure support 06/27, FiO2 85%. SPO2 100%. Sedated with Precedex/fentanyl. HD anticipated today. ABG this a.m. 7.44/42/89. BUN 129, creatinine 5.4. proBNP 75,500. Chest x-ray continues to show bilateral infiltrates. Started on insulin infusion overnight due to rising glucose. 02/02: Remains intubated. On pressure support 06/25, FiO2 80%. SPO2 92%. Sedated with Precedex/fentanyl. HD performed yesterday, net -200 mL. ABG this a.m.: 7.47/42/73. On and off insulin infusion. Chest x-ray continues to show bilateral infiltrates. No significant change in the interim. 02/03: Remains intubated. On pressure support 12/10, FiO2 100%. SPO2 100%. Sedated with Precedex/fentanyl. WBC 22.9 today. T-max (24 hours) 100.4 F. Hemodynamically stable. On Decadron 3 mg IV every 12 hours. On insulin infusion for glucose control. Urine output 800 mL overnight. BUN 109, creatinine 4.7. Review of systems relevant to events:: Respiratory: Acute hypoxemic respiratory failure, COVID-19 pneumonia Hematologic: Normocytic anemia Renal: Chronic kidney disease Endocrine: Type 2 diabetes mellitus Neurologic: Chronic pain (right knee) Reason for ICU Addmission:: Respiratory insufficiency, BiPAP dependent. - Medications: Medications reviewed and adjusted accordingly: Yes Sedation:: Precedex/fentanyl Physical Exam Vital Signs: Temp Pulse Resp BP Pulse Ox 99.9 F 99 13 136/81 H 100 02/04/20 06:00 02/04/20 08:40 02/04/20 08:40 02/04/20 06:18 02/04/20 08:40 Intake & Output 02/03/20 02/04/20 02/05/20 06:59 06:59 06:59 Intake Total 2619 1371 27 Output Total 3295 1705 150 Balance -676 -334 -123 Weight 70.6 kg 70.8 kg Weight/Height Weight 70.8 kg Height 1.7 m General appearance: PRESENT: no acute distress, well-developed, well-nourished Head exam: PRESENT: atraumatic, normocephalic Eye exam: PRESENT: conjunctiva pink, EOMI, PERRLA. ABSENT: scleral icterus Mouth exam: PRESENT: moist, tongue midline Neck exam: ABSENT: carotid bruit, JVD, lymphadenopathy, thyromegaly Respiratory exam: PRESENT: decreased breath sounds, rales, rhonchi Cardiovascular exam: PRESENT: RRR. ABSENT: diastolic murmur, rubs, systolic murmur Pulses: PRESENT: normal dorsalis pedis pul Vascular exam: PRESENT: pallor GI/Abdominal exam: PRESENT: normal bowel sounds, soft. ABSENT: distended, gu arding, mass, organolmegaly, rebound, tenderness Gentrourinary exam: PRESENT: indwelling catheter Extremities exam: PRESENT: full ROM, pedal edema. ABSENT: calf tenderness, clubbing Musculoskeletal exam: PRESENT: normal inspection. ABSENT: deformity Neurological exam: PRESENT: other - Heavily sedated. RASS -3 Psychiatric exam: ABSENT: agitated, anxious Skin exam: PRESENT: dry, intact, jaundice, pallor, warm. ABSENT: cyanosis, rash Laboratory/Radiographs Laboratory Results: 02/04/20 06:20 02/04/20 05:20 02/03/20 02/03/20 02/03/20 08:45 13:30 16:55 WBC RBC Hgb Hct MCV MCH MCHC RDW Plt Count Seg Neutrophils % Carbonic Acid 1.26 1.25 HCO3/H2CO3 Ratio 23:1 23:1 ABG pH 7.47 H 7.47 H ABG pCO2 42.0 41.4 ABG pO2 73.2 L 72.5 L ABG HCO3 29.5 H 29.5 H ABG O2 Saturation 95.5 95.4 ABG Base Excess 5.3 5.4 FiO2 80% 80% Sodium 143.4 Potassium 4.3 Chloride 106 Carbon Dioxide 29 Anion Gap 8 BUN 101 H D Creatinine 4.25 H Est GFR ( Amer) 17 L Glucose 190 H Calcium 8.4 Phosphorus 3.5 Magnesium 2.1 Total Bilirubin 0.5 AST 39 Alkaline Phosphatase 152 H Total Protein 6.1 L Albumin 2.7 L 02/04/20 02/04/20 02/04/20 05:20 05:20 05:20 WBC Cancelled RBC Cancelled Hgb Cancelled Hct Cancelled MCV Cancelled MCH Cancelled MCHC Cancelled RDW Cancelled Plt Count Cancelled Seg Neutrophils % Cancelled Carbonic Acid 1.21 HCO3/H2CO3 Ratio 22:1 ABG pH 7.45 ABG pCO2 40.1 ABG pO2 159.7 H ABG HCO3 27.1 H ABG O2 Saturation 99.1 H ABG Base Excess 2.8 FiO2 80% Sodium 145.0 Potassium 3.9 Chloride 107 Carbon Dioxide 32 H Anion Gap 6 BUN 109 H Creatinine 4.69 H Est GFR ( Amer) 15 L Glucose 161 H Calcium 8.2 L Phosphorus 3.9 Magnesium 2.1 Total Bilirubin AST Alkaline Phosphatase Total Protein Albumin 07/19/20 06:20 WBC 22.9 H RBC 3.16 L Hgb 9.0 L Hct 27.8 L MCV 88 MCH 28.5 MCHC 32.4 RDW 15.2 H Plt Count 192 Seg Neutrophils % Not Reportable Carbonic Acid HCO3/H2CO3 Ratio ABG pH ABG pCO2 ABG pO2 ABG HCO3 ABG O2 Saturation ABG Base Excess FiO2 Sodium Potassium Chloride Carbon Dioxide Anion Gap BUN Creatinine Est GFR ( Amer) Glucose Calcium Phosphorus Magnesium Total Bilirubin AST Alkaline Phosphatase Total Protein Albumin 01/24/20 01/24/20 01/24/20 00:03 00:03 04:20 Creatine Kinase 80 CK-MB (CK-2) 0.63 Troponin I 0.132 0.133 NT-Pro-B Natriuret Pep 32204 H 01/24/20 01/24/20 01/24/20 10:43 17:19 23:06 Creatine Kinase CK-MB (CK-2) Troponin I 0.114 0.079 0.075 NT-Pro-B Natriuret Pep 62154 H 01/30/20 01/31/20 02/01/20 03:45 05:39 06:14 Creatine Kinase CK-MB (CK-2) Troponin I NT-Pro-B Natriuret Pep 64957 H 59601 H 01503 H 02/02/20 04:24 Creatine Kinase CK-MB (CK-2) Troponin I NT-Pro-B Natriuret Pep 50741 H Impressions: Chest X-Ray 02/04/20 05:00 IMPRESSION: Slight improvement. No pneumothorax. All labs, radiographs, diagnostic studies and EKGs were personally reviewed: Yes In addition, reports of radiographic and diagnostic studies were read: Yes Assessment and Plan - Diagnosis (1) Acute respiratory failure due to severe acute respiratory syndrome coronavirus 2 (SARS-CoV-2) infection Is this a current diagnosis for this admission?: Yes Plan: Worsening ARDS. Titrate vent settings based on ABG results. Titrate sedation for RASS -2. Decrease Decadron to 2 mg IV every 12 hours. Albuterol scheduled and as needed. Pulmicort scheduled. No sedation vacation today. (2) Pneumonia due to COVID-19 virus Is this a current diagnosis for this admission?: Yes Plan: Clinically, no significant change. Chest x-ray may be slightly improved. Off cefepime. Finished 6-day course of Plaquenil. (3) Acute worsening of stage 4 chronic kidney disease Is this a current diagnosis for this admission?: Yes Plan: Start furosemide 20 mg IV q 8 hours. Monitor creatinine and urine output. Renal dosing as needed. Avoid nephrotoxic medications. (4) Chronically on opiate therapy Is this a current diagnosis for this admission?: Yes (5) Elevated troponin level Is this a current diagnosis for this admission?: Yes Plan: On heparin infusion. Start Lopressor 25 mg NG twice daily. (6) Diabetes type 2, uncontrolled Qualifiers: Glycemic state: with hyperglycemia Qualified Code(s): E11.65 - Type 2 diabetes mellitus with hyperglycemia Is this a current diagnosis for this admission?: Yes Plan: Continue insulin infusion. Accu-Cheks every 1 hour. On Nepro 1.8 at goal. Critical Time Critical Time (minutes): 60 Level of Care: ICU -: 1. The care of a critical patient is a dynamic process. This note is a promotions representative synopsis but static in nature. The timeframe for treatments given in order is not necessarily the actual time these treatments may have been done. 2. This patient requires critical care secondary to ongoing requirements for therapy not offered or safe outside the critical care environment. Transfer to a lower level of care will result in altered life or limb morbidity and mortality. 3. Multidisciplinary rounds completed. 4. ABCDE bundle addressed.
[2020-02-05] MEDS: FENTANYL CITRATE/PF 600 MCG/60 ML BAG IV PRN ×3 (00:01→15:20)
[2020-02-05] MEDS: DEXMEDETOMIDINE IN NS 400 MCG/100 ML RTUPB IV PRN ×4 (00:01→19:04)
[2020-02-05] MEDS: ALBUTEROL SULFATE 0.083% NEB 2.5 MG/3 ML AMPUL NEB SCH ×4 (02:18→20:29)
[2020-02-05] MEDS: FUROSEMIDE INJ/PF 20 MG/2 ML SDV IV SCH ×3 (02:55→19:03)
[2020-02-05 05:41] LABS: ARTERIAL BLOOD BASE EXCESS 6.7 mmol/L; ARTERIAL BLOOD H2CO3 1.26 mmol/L (1.05-1.35); ARTERIAL BLOOD HCO3 30.9 mmol/L (20-24); ARTERIAL BLOOD O2 SATURATION 87.8 % (94-98); ARTERIAL BLOOD PH 7.48 (7.35-7.45); ARTERIAL BLOOD PO2 49.8 mmHg (80-100); ARTERIAL BLOOD TOTAL CO2 32.1 mmol/L (23-27)
[2020-02-05 05:45] LABS: APPEARANCE,URINE CLOUDY; BILIRUBIN,URINE NEGATIVE (NEGATIVE); COLOR,URINE YELLOW; GLUCOSE, URINE NEGATIVE (NEGATIVE); KETONES,URINE NEGATIVE (NEGATIVE); LEUKOCYTE ESTERASE,URINE SMALL (NEGATIVE); NITRITE,URINE NEGATIVE (NEGATIVE); PROTEIN,URINE 30 mg/dL (NEGATIVE); URINE SPECIFIC GRAVITY 1.009; UROBILINOGEN,URINE NEGATIVE mg/dL (<2.0)
[2020-02-05 05:48] LABS: HEMATOCRIT 26.1 % (37.9-51.0); HEMOGLOBIN 8.5 g/dL (13.5-17.0); MEAN CORPUSCULAR HEMOGLOBIN 28.5 pg (27.0-33.4); MEAN CORPUSCULAR HGB CONC 32.7 g/dL (32.0-36.0); MEAN CORPUSCULAR VOLUME 87 fl (80-97); PLATELET COUNT 180 10^3/uL (150-450); RED CELL DISTRIBUTION WIDTH 15.1 % (11.5-14.0); WHITE BLOOD COUNT 23.8 10^3/uL (4.0-10.5)
[2020-02-05 06:24] LABS: ANION GAP 7 (5-19); BLOOD UREA NITROGEN 116 mg/dL (7-20); CALCIUM 8.1 mg/dL (8.4-10.2); CARBON DIOXIDE 32 mmol/L (22-30); CHLORIDE 105 mmol/L (98-107); GLUCOSE 129 mg/dL (75-110); PHOSPHORUS 3.3 mg/dL (2.5-4.5); POTASSIUM 3.6 mmol/L (3.6-5.0)
[2020-02-05 06:28] LABS: ABSOLUTE LYMPHOCYTES# (MANUAL) 1.2 10^3/uL (0.5-4.7); ABSOLUTE MONOCYTES # (MANUAL) 1.2 10^3/uL (0.1-1.4); ANISOCYTOSIS 1+; BAND NEUTROPHILS % (MANUAL) 2 % (3-5); BASOPHILS % (MANUAL) 0 % (0-2); EOSINOPHILS % (MANUAL) 2 % (0-6); LYMPHOCYTES % (MANUAL) 5 % (13-45); MONOCYTES % (MANUAL) 5 % (3-13); PLATELET COMMENT ADEQUATE; POLYCHROMASIA 1+; SEGMENTED NEUTROPHILS % (MAN) 86 % (42-78); TOTAL CELLS COUNTED 100
[2020-02-05] MEDS: HEPARIN SOD (PORCINE) 1,000 UNIT/ML 10 ML VIAL IV PRN (08:14)
--- NOTE | 2020-02-05 08:15 | RADIOLOGY REPORT (SQ) ---
EXAM DESCRIPTION: CHEST SINGLE VIEW IMAGES COMPLETED DATE/TIME: 02/05/2020 5:45 am REASON FOR STUDY: ETT tube COMPARISON: 02/04/2020 NUMBER OF VIEWS: One view. TECHNIQUE: Single frontal radiographic image of the chest acquired. LIMITATIONS: None. FINDINGS: LUNGS AND PLEURA: Stable appearance. MEDIASTINUM AND HILAR STRUCTURES: Stable heart size and mediastinal structures. HEART AND VASCULAR STRUCTURES: Stable appearance. SUPPORT DEVICES: Appropriate location without change. BONES: No acute findings. OTHER: No other significant finding. IMPRESSION: STABLE APPEARANCE OF THE CHEST. SUPPORT DEVICES UNCHANGED. TECHNICAL DOCUMENTATION: JOB ID: [id number] 2010 [employer]- All Rights Reserved Reading location - IP/workstation name: [email or web address]
[2020-02-05] MEDS: BUDESONIDE NEB 0.25 MG/2 ML AMPUL NEB SCH ×2 (09:19→20:29)
[2020-02-05] MEDS ORDERED: ONDANSETRON HCL INJ/PF 4 MG/2 ML SDV IV PRN (10:00)
--- NOTE | 2020-02-05 10:23 | PDOC CONSULTATION ---
Consultation Consult Date: 02/02/20 Provider Consulted: Justina FELIZ Consult reason:: ZURDO for HD in the setting of fluid overload and high PEEP. History of Present Illness Admission Date/PCP: 01/24/20 08:20 GOLD ELENA History of Present Illness: FREDDIE LAZO JR is a 60 year old male with a history of poorly controlled DM 2, HTN, CHF, narcotic dependence from chronic arthritis, CKD - 4 with base creatinine of 3.5 recently admitted to [facility] on 01/05/2020 for ZURDO and hyperkalemia and was discharged on 01/11/2020. Patient then returned to the ED on 01/15/2020 and was admitted for nausea vomiting associated with fatigue and dizziness. Troponins were elevated at that time with a proBNP of 29,000. During his hospital stay he was treated for p neumonia and hypoxemia which resolved. He also had a non-ST elevated CO which was thought to be related to demand ischemia in the setting of pneumonia and sepsis with poor clearance of troponins related to his CKD. Patient was discharged again on 01/19/2020 and returned to the emergency department on 01/23/2020 complaining of orthostatic hypotension, persistent dizziness, fever and shortness of breath. This time his chest x-ray was found to have worsening bibasilar pneumonia and his Covid was positive and he was admitted with a dx of worsening Covid Pneumonia. Presently is in the ICU intubated and sedated. Is is in severe respiratory failure with a PEEP of 10. His renal functions have deteriorated and his urine output was dropping but seems to be picking up today. However repeat x-ray shows a whiteout with differentials including COVID pneumonia/ARDS/CHF. Requests was done for denisse lysis by Dr. Mcghee/optical technician based on above clinical presentation to see if we could cut back on his PEEP especially given the incoming weekend when no dialysis capabilities exist in this hospital .Patient subsequently seen on dialysis. Will plan for a short dialysis and low volumes. Plan to remove at least 2-3 L of fluid as tolerated.However care home into dialysis patient was having difficulty in giving up fluid and therefore maximum that we are going to remove the about 500 cc. Discussed this with the optical technician. Past Medical History Cardiac Medical History: Reports: Hypertension-primary Denies: Coronary Artery Disease, Hyperlipidemia Pulmonary Medical History: Denies: Asthma, Chronic Obstructive Pulmonary Disease (COPD), Respiratory Failure Neurological Medical History: Denies: Seizures Endocrine Medical History: Reports: Diabetes Mellitus Type 2 Renal/ Medical History: Reports: Chronic Kidney Disease Stage V GI Medical History: Denies: Cirrhosis, Hepatitis Musculoskeltal Medical History: Reports: Arthritis Denies: Gout Skin Medical History: Denies: Eczema, Psoriasis Psychiatric Medical History: Reports: Depression Past Surgical History Past Surgical History: Reports: Orthopedic Surgery - Multiple surgeries, Other - Multiple orthopedic surgeries Social History Smoking Status: Unknown if Ever Smoked Electronic Cigarette use?: No Frequency of Alcohol Use: None Hx Recreational Drug Use: No Drugs: None Hx Prescription Drug Abuse: No - Advance Directive Resuscitation Status: Full Code Family History Parental Family History Reviewed: No - Unable to be obtained as patient intubated and sedated. No next of kin. Children Family History Reviewed: No Sibling(s) Family History Reviewed.: No Medication/Allergy Home Medications: Meloxicam [Mobic 7.5 mg Tablet] 7.5 mg PO Q12HP PRN 01/06/20 Oxycodone HCl [Oxy-Ir 5 mg Tablet] 15 mg PO Q6 01/06/20 Aspirin [Aspirin 81 mg Chewable Tablet] 81 mg PO QHS #0 tab.chew 01/19/20 Atorvastatin Calcium [Lipitor 20 mg Tablet] 20 mg PO QHS #30 tablet 01/19/20 Cefpodoxime Proxetil [Vantin 200 mg Tablet] 200 mg PO Q12 #12 tablet 01/19/20 Gabapentin [Neurontin 100 mg Capsule] 200 mg PO Q8 #180 capsule 01/19/20 Insulin Glargine,Hum.rec.anlog [Lantus Insulin 100 Unit/1 ml 10 ml] 10 unit SUBC UT DAILY #1 vial 01/19/20 Metoprolol Tartrate [Lopressor 25 mg Tablet] 12.5 mg PO Q12 #15 tablet 01/19/20 Meclizine HCl [Antivert 12.5 mg Tablet] 12.5 mg PO Q4HP PRN 01/24/20 Ondansetron [Zofran Odt 4 mg Tablet] 4 mg PO Q4HP PRN 01/24/20 Allergies/Adverse Reactions: iodine Allergy (Verified 01/23/20 23:19) Penicillins Allergy (Verified 01/23/20 23:19) shellfish derived Allergy (Verified 01/23/20 23:19) Sulfa (Sulfonamide Antibiotics) Allergy (Verified 01/23/20 23:19) Review of Systems ROS unobtainable: Due to endotracheal tube, Due to mental status Physical Exam Vital Signs: Temp Pulse Resp BP Pulse Ox 100.9 F H 107 H 11 L 154/91 H 100 02/02/20 10:00 02/02/20 10:00 02/02/20 10:13 02/02/20 10:13 02/02/20 10:13 Intake & Output 02/01/20 02/02/20 02/03/20 06:59 06:59 06:59 Intake Total 1433 1118 110 Output Total 2809 1290 655 Balance -4963 -3698 -085 Weight 74.5 kg 71.6 kg General appearance: PRESENT: no acute distress, obese Exam: Intubated and sedated Extremities exam: ABSENT: pedal edema Results Laboratory Results: 02/01/20 06:14 02/02/20 04:24 02/01/20 02/02/20 02/02/20 10:35 04:24 06:20 Carbonic Acid 1.13 1.27 HCO3/H2CO3 Ratio 21:1 22:1 ABG pH 7.43 7.44 ABG pCO2 37.5 42.1 ABG pO2 70.8 L 88.7 ABG HCO3 24.3 H 28.0 H ABG O2 Saturation 94.7 97.0 ABG Base Excess 0.2 3.5 FiO2 85% 85% Sodium 145.2 H Potassium 4.3 Chloride 109 H Carbon Dioxide 26 Anion Gap 10 BUN 129 H Creatinine 5.41 H Est GFR ( Amer) 13 L Glucose 466 H* Calcium 8.1 L Phosphorus 4.3 Magnesium 2.2 Urine Color Urine Appearance Urine pH Ur Specific [place] Urine Protein Urine Glucose (UA) Urine Ketones Urine Blood Urine Nitrite Ur Leukocyte Esterase Urine WBC (Auto) Urine RBC (Auto) 02/02/20 06:20 Carbonic Acid HCO3/H2CO3 Ratio ABG pH ABG pCO2 ABG pO2 ABG HCO3 ABG O2 Saturation ABG Base Excess FiO2 Sodium Potassium Chloride Carbon Dioxide Anion Gap BUN Creatinine Est GFR ( Amer) Glucose Calcium Phosphorus Magnesium Urine Color STRAW Urine Appearance CLOUDY Urine pH 6.0 Ur Specific [place] 1.009 Urine Protein 30 H Urine Glucose (UA) >=500 H Urine Ketones NEGATIVE Urine Blood MODERATE H Urine Nitrite NEGATIVE Ur Leukocyte Esterase TRACE H Urine WBC (Auto) 3 Urine RBC (Auto) 3 01/29/20 23:15 Tracheal Aspirate Gram Stain - Final 01/29/20 23:15 Tracheal Aspirate Sputum Culture - Final C.albicans/C.dubliniensis Normal Kathie Absent 01/24/20 01/24/20 01/24/20 00:03 00:03 04:20 Creatine Kinase 80 CK-MB (CK-2) 0.63 Troponin I 0.132 0.133 NT-Pro-B Natriuret Pep [id number] H 01/24/20 01/24/20 01/24/20 10:43 17:19 23:06 Creatine Kinase CK-MB (CK-2) Troponin I 0.114 0.079 0.075 NT-Pro-B Natriuret Pep 07840 H 01/30/20 01/31/20 02/01/20 03:45 05:39 06:14 Creatine Kinase CK-MB (CK-2) Troponin I NT-Pro-B Natriuret Pep 06627 H 09013 H 29326 H 02/02/20 04:24 Creatine Kinase CK-MB (CK-2) Troponin I NT-Pro-B Natriuret Pep 75742 H Impressions: Chest X-Ray 02/02/20 05:00 IMPRESSION: STABLE APPEARANCE OF THE CHEST. SUPPORT DEVICES UNCHANGED. Assessment & Plan - Diagnosis (1) Pneumonia due to COVID-19 virus Is this a current diagnosis for this admission?: Yes Plan: Chest x-ray shows complete whiteout with differentials including COVID pneumonia/ARDS/CHF. Currently intubated and sedated. (2) Acute hypoxemic respiratory failure Is this a current diagnosis for this admission?: Yes Plan: Currently intubated and sedated. High PEEP.Concerned about barotrauma. [place] hemodialysis to see if fluid removal could make a difference. (3) Acute worsening of stage 4 chronic kidney disease Is this a current diagnosis for this admission?: Yes Plan: Patient has been having worsening renal functions over the last few days. Drop in urine output but seems to be picking up today. However given his respiratory failure with high PEEP we will do a trial of hemodialysis with fluid removal to see if that will help with this. Discussed with optical technician who would like to proceed accordingly. (4) CKD stage 4 due to type 2 diabetes mellitus Is this a current diagnosis for this admission?: Yes Plan: Apparently underlying CKD stage IV/V in the background of diabetes mellitus and hypertension. Worsening renal failure in the background of covid with pneumonia and sepsis. (5) ZURDO (acute kidney injury) Plan: Acute on chronic kidney disease stage IV/V. Background of COVID pneumonia. (6) Non-ST elevated myocardial infarction (non-STEMI) Plan: As per optical technician.
[2020-02-05] MEDS: FAMOTIDINE INJ/PF 20 MG/2 ML SDV IV SCH (10:26)
[2020-02-05] MEDS: DEXAMETHASONE SOD PHOSPHATE INJ 4 MG/1 ML VIAL IV SCH ×2 (10:28→23:01)
[2020-02-05] MEDS: METOPROLOL TARTRATE 25 MG TABLET NG SCH ×2 (10:33→23:00)
[2020-02-05] MEDS: HEPARIN SODIUM,PORCINE/D5W 25,000 UNIT/250 ML RTUINJ IV PRN (10:35)
[2020-02-05] MEDS: NORMAL SALINE 100 ML with INSULIN REGULAR, HUMAN 100 UNIT IV PRN ×2 (10:35)
--- NOTE | 2020-02-05 14:03 | PDOC CRITICAL CARE PROG REPORT ---
General Date:: 02/05/20 ICU Day:: 12 Ventilator Day:: 8 Hospital Day:: 12 Resuscitation Status: Full Code Events in the past 12 to 24 Hours:: No real or significant change Review of systems relevant to events:: Pulmonary Reason for ICU Addmission:: Now intubated. - Medications: Medications reviewed and adjusted accordingly: Yes Vasopressors:: None Sedation:: Precedex Physical Exam Vital Signs: Temp Pulse Resp BP Pulse Ox 101.7 F H 97 21 H 115/67 94 02/05/20 12:00 02/05/20 12:00 02/05/20 12:00 02/05/20 12:00 02/05/20 12:00 Intake & Output 02/04/20 02/05/20 02/06/20 06:59 06:59 06:59 Intake Total 1371 1771 485 Output Total 1705 3250 725 Balance -334 -1479 -240 Weight 70.8 kg 70 kg Weight/Height Weight 70 kg Height 5 ft 7 in General appearance: PRESENT: no acute distress, thin Head exam: PRESENT: atraumatic, normocephalic Eye exam: PRESENT: conjunctiva pink, EOMI, PERRLA. ABSENT: scleral icterus Ear exam: PRESENT: normal external ear exam Mouth exam: PRESENT: moist, tongue midline Respiratory exam: PRESENT: clear to auscultation yousif, decreased breath sounds. ABSENT: rales, rhonchi, wheezes Cardiovascular exam: PRESENT: RRR, tachycardia. ABSENT: diastolic murmur, rubs, systolic murmur GI/Abdominal exam: PRESENT: normal bowel sounds, soft. ABSENT: distended, guarding, mass, organolmegaly, rebound, tenderness Rectal exam: PRESENT: deferred Gentrourinary exam: PRESENT: indwelling catheter Extremities exam: PRESENT: full ROM. ABSENT: calf tenderness, clubbing, pedal edema Musculoskeletal exam: PRESENT: normal inspection Neurological exam: PRESENT: alert, awake, oriented to person, oriented to place, oriented to time, oriented to situation, CN II-XII grossly intact. ABSENT: motor sensory deficit Skin exam: PRESENT: dry, intact, warm. ABSENT: cyanosis, rash Tubes/Lines: PRESENT: Endotracheal Tube, Central Line, Nasogastic Tube Laboratory/Radiographs Laboratory Results: 02/05/20 05:00 02/05/20 05:00 02/05/20 02/05/20 02/05/20 05:00 05:00 05:00 WBC 23.8 H RBC 3.00 L Hgb 8.5 L Hct 26.1 L MCV 87 MCH 28.5 MCHC 32.7 RDW 15.1 H Plt Count 180 Seg Neutrophils % Not Reportable Carbonic Acid 1.26 HCO3/H2CO3 Ratio 24:1 ABG pH 7.48 H ABG pCO2 42.0 ABG pO2 49.8 L ABG HCO3 30.9 H ABG O2 Saturation 87.8 L ABG Base Excess 6.7 FiO2 55% Sodium 144.2 Potassium 3.6 Chloride 105 Carbon Dioxide 32 H Anion Gap 7 BUN 116 H Creatinine 4.67 H Est GFR ( Amer) 16 L Glucose 129 H Calcium 8.1 L Phosphorus 3.3 Magnesium 2.1 Prealbumin 15.0 L Urine Color Urine Appearance Urine pH Ur Specific [place] Urine Protein Urine Glucose (UA) Urine Ketones Urine Blood Urine Nitrite Ur Leukocyte Esterase Urine WBC (Auto) Urine RBC (Auto) 02/05/20 05:00 WBC RBC Hgb Hct MCV MCH MCHC RDW Plt Count Seg Neutrophils % Carbonic Acid HCO3/H2CO3 Ratio ABG pH ABG pCO2 ABG pO2 ABG HCO3 ABG O2 Saturation ABG Base Excess FiO2 Sodium Potassium Chloride Carbon Dioxide Anion Gap BUN Creatinine Est GFR ( Amer) Glucose Calcium Phosphorus Magnesium Prealbumin Urine Color YELLOW Urine Appearance CLOUDY Urine pH 6.0 Ur Specific [place] 1.009 Urine Protein 30 H Urine Glucose (UA) NEGATIVE Urine Ketones NEGATIVE Urine Blood MODERATE H Urine Nitrite NEGATIVE Ur Leukocyte Esterase SMALL H Urine WBC (Auto) 31 Urine RBC (Auto) 23 01/24/20 01/24/20 01/24/20 00:03 00:03 04:20 Creatine Kinase 80 CK-MB (CK-2) 0.63 Troponin I 0.132 0.133 NT-Pro-B Natriuret Pep [id number] H 01/24/20 01/24/20 01/24/20 10:43 17:19 23:06 Creatine Kinase CK-MB (CK-2) Troponin I 0.114 0.079 0.075 NT-Pro-B Natriuret Pep 85970 H 01/30/20 01/31/20 02/01/20 03:45 05:39 06:14 Creatine Kinase CK-MB (CK-2) Troponin I NT-Pro-B Natriuret Pep 73965 H 63894 H 10000 H 02/02/20 04:24 Creatine Kinase CK-MB (CK-2) Troponin I NT-Pro-B Natriuret Pep 51729 H Impressions: Chest X-Ray 02/05/20 05:00 IMPRESSION: STABLE APPEARANCE OF THE CHEST. SUPPORT DEVICES UNCHANGED. All labs, radiographs, diagnostic studies and EKGs were personally reviewed: Yes In addition, reports of radiographic and diagnostic studies were read: Yes Assessment and Plan - Diagnosis (1) COVID-19 Is this a current diagnosis for this admission?: Yes Plan: Clinically and radiographically unchanged. (2) Acute CHF Qualifiers: Heart failure type: unspecified Qualified Code(s): I50.9 - Heart failure, unspecified Is this a current diagnosis for this admission?: Yes Plan: Resolved (3) Acute hypoxemic respiratory failure Is this a current diagnosis for this admission?: Yes Plan: Still on 55%. Lower and will try weaning further. (4) CKD stage 4 due to type 2 diabetes mellitus Is this a current diagnosis for this admission?: Yes Plan: No HD today. No volume overload, hyperkalemia or acidosis. (5) Chronic pain Qualifiers: Chronic pain type: other chronic pain Qualified Code(s): G89.29 - Other chronic pain Is this a current diagnosis for this admission?: Yes (6) Diabetes mellitus type 2 in nonobese Is this a current diagnosis for this admission?: Yes Critical Time Critical Time (minutes): 35 Level of Care: ICU Anticipated discharge: Home with Homehealth Within: Other -: 1. The care of a critical patient is a dynamic process. This note is a repre sentative synopsis but static in nature. The timeframe for treatments given in order is not necessarily the actual time these treatments may have been done. 2. This patient requires critical care secondary to ongoing requirements for therapy not offered or safe outside the critical care environment. Transfer to a lower level of care will result in altered life or limb morbidity and mortality. 3. Multidisciplinary rounds completed. 4. ABCDE bundle addressed.
[2020-02-05] MEDS: ACETAMINOPHEN SOLN 325 MG/10.15 ML UDCUP NG PRN (15:15)
--- NOTE | 2020-02-05 20:58 | PDOC PROGRESS REPORT ---
Subjective Progress Note for:: 02/05/20 Subjective:: Patient remains to be intubated. He had one dialysis treatment last Wednesday in an attempt to take some fluid removal but the patient was unable to tolerated in at the end of the treatment has very minimal ultrafiltration obtained. He continues to have good urine output with current Lasix dose producing anywhere between 1700 to 3250 mL of urine for the last couple of days. She is still febrile. He is still being given Decadron and no antibiotics at this point. Reason For Visit: HYPOXEMIC RESPIRATORY FAILURE, HEMODYNAMIC Physical Exam Vital Signs: Temp Pulse Resp BP Pulse Ox 101.7 F H 104 H 20 133/71 H 93 02/05/20 08:00 02/05/20 09:20 02/05/20 09:20 02/05/20 08:00 02/05/20 09:20 Intake & Output 02/04/20 02/05/20 02/06/20 06:59 06:59 06:59 Intake Total 1371 1732 221 Output Total 1705 3250 400 Balance -334 -1518 -179 Weight 70.8 kg 70 kg Exam: General appearance: PRESENT: Intubated and sedated. Rest of the physical exam is been deferred to high risk exposure being COVID-19 positive.] Results Laboratory Results: 02/05/20 05:00 02/05/20 05:00 02/05/20 02/05/20 02/05/20 05:00 05:00 05:00 WBC 23.8 H RBC 3.00 L Hgb 8.5 L Hct 26.1 L MCV 87 MCH 28.5 MCHC 32.7 RDW 15.1 H Plt Count 180 Seg Neutrophils % Not Reportable Carbonic Acid 1.26 HCO3/H2CO3 Ratio 24:1 ABG pH 7.48 H ABG pCO2 42.0 ABG pO2 49.8 L ABG HCO3 30.9 H ABG O2 Saturation 87.8 L ABG Base Excess 6.7 FiO2 55% Sodium 144.2 Potassium 3.6 Chloride 105 Carbon Dioxide 32 H Anion Gap 7 BUN 116 H Creatinine 4.67 H Est GFR ( Amer) 16 L Glucose 129 H Calcium 8.1 L Phosphorus 3.3 Magnesium 2.1 Prealbumin 15.0 L Urine Color Urine Appearance Urine pH Ur Specific [place] Urine Protein Urine Glucose (UA) Urine Ketones Urine Blood Urine Nitrite Ur Leukocyte Esterase Urine WBC (Auto) Urine RBC (Auto) 02/05/20 05:00 WBC RBC Hgb Hct MCV MCH MCHC RDW Plt Count Seg Neutrophils % Carbonic Acid HCO3/H2CO3 Ratio ABG pH ABG pCO2 ABG pO2 ABG HCO3 ABG O2 Saturation ABG Base Excess FiO2 Sodium Potassium Chloride Carbon Dioxide Anion Gap BUN Creatinine Est GFR ( Amer) Glucose Calcium Phosphorus Magnesium Prealbumin Urine Color YELLOW Urine Appearance CLOUDY Urine pH 6.0 Ur Specific [place] 1.009 Urine Protein 30 H Urine Glucose (UA) NEGATIVE Urine Ketones NEGATIVE Urine Blood MODERATE H Urine Nitrite NEGATIVE Ur Leukocyte Esterase SMALL H Urine WBC (Auto) 31 Urine RBC (Auto) 23 01/24/20 01/24/20 01/24/20 00:03 00:03 04:20 Creatine Kinase 80 CK-MB (CK-2) 0.63 Troponin I 0.132 0.133 NT-Pro-B Natriuret Pep [id number] H 01/24/20 01/24/20 01/24/20 10:43 17:19 23:06 Creatine Kinase CK-MB (CK-2) Troponin I 0.114 0.079 0.075 NT-Pro-B Natriuret Pep 01742 H 01/30/20 01/31/20 02/01/20 03:45 05:39 06:14 Creatine Kinase CK-MB (CK-2) Troponin I NT-Pro-B Natriuret Pep 42310 H 25451 H 16963 H 02/02/20 04:24 Creatine Kinase CK-MB (CK-2) Troponin I NT-Pro-B Natriuret Pep 09545 H Impressions: Chest X-Ray 02/05/20 05:00 IMPRESSION: STABLE APPEARANCE OF THE CHEST. SUPPORT DEVICES UNCHANGED. Assessment & Plan - Diagnosis (1) Acute kidney injury superimposed on chronic kidney disease Is this a current diagnosis for this admission?: Yes Plan: Secondary to complication of COVID-19 infection. Most likely secondary to ATN with only very minimal almost negligible proteinuria and microhematuria. Patient is currently nonoliguric with stable kidney function for the last couple of days. At this time there is no indication for renal replacement therapy. Continue Lasix with the same dose. Continue to monitor your. Discussed with Dr. Chandler this morning. (2) Acute respiratory failure due to severe acute respiratory syndrome coronavirus 2 (SARS-CoV-2) infection Is this a current diagnosis for this admission?: Yes Plan: Per weight and balance control agent. Currently on Decadron and heparin drip. (3) COVID-19 Is this a current diagnosis for this admission?: Yes Plan: Has completed treatment for bovid pneumonia. Unfortunately the patient's leukocytosis seems to be worsening. (4) CKD stage 4 due to type 2 diabetes mellitus Is this a current diagnosis for this admission?: Yes (5) Anemia Qualifiers: Anemia type: due to chronic kidney disease Chronic kidney disease stage: stage 4 (severe) Qualified Code(s): N18.4 - Chronic kidney disease, stage 4 (severe); D63.1 - Anemia in chronic kidney disease Is this a current diagnosis for this admission?: Yes (6) Diabetes type 2, uncontrolled Qualifiers: Glycemic state: with hyperglycemia Qualified Code(s): E11.65 - Type 2 diabetes mellitus with hyperglycemia Is this a current diagnosis for this admission?: Yes Plan: Maintain on insulin drip. (7) Hypertension Is this a current diagnosis for this admission?: Yes Plan: Controlled and not on pressor. (8) Non-ST elevated myocardial infarction (non-STEMI) Is this a current diagnosis for this admission?: Yes (9) Chronically on opiate therapy Is this a current diagnosis for this admission?: Yes - Time Time with patient: 15-25 minutes
[2020-02-06] MEDS: ALBUTEROL SULFATE 0.083% NEB 2.5 MG/3 ML AMPUL NEB SCH ×4 (02:00→20:04)
[2020-02-06] MEDS: FUROSEMIDE INJ/PF 20 MG/2 ML SDV IV SCH (03:40)
[2020-02-06 06:24] LABS: HEMATOCRIT 26.9 % (37.9-51.0); HEMOGLOBIN 8.7 g/dL (13.5-17.0); MEAN CORPUSCULAR HEMOGLOBIN 28.3 pg (27.0-33.4); MEAN CORPUSCULAR HGB CONC 32.4 g/dL (32.0-36.0); MEAN CORPUSCULAR VOLUME 87 fl (80-97); PLATELET COUNT 205 10^3/uL (150-450); RED BLOOD COUNT 3.09 10^6/uL (4.35-5.55); RED CELL DISTRIBUTION WIDTH 15.6 % (11.5-14.0)
[2020-02-06 06:40] LABS: CALCIUM 8.5 mg/dL (8.4-10.2); CHLORIDE 103 mmol/L (98-107); GLUCOSE 292 mg/dL (75-110); POTASSIUM 4.3 mmol/L (3.6-5.0)
[2020-02-06 06:43] LABS: ANION GAP 12 (5-19); CARBON DIOXIDE 30 mmol/L (22-30)
[2020-02-06] MEDS: DEXMEDETOMIDINE IN NS 400 MCG/100 ML RTUPB IV PRN ×4 (06:51→21:05)
[2020-02-06] MEDS: FENTANYL CITRATE/PF 600 MCG/60 ML BAG IV PRN ×3 (06:51→22:28)
[2020-02-06 07:26] LABS: WHITE BLOOD COUNT 32.4 10^3/uL (4.0-10.5)
[2020-02-06 07:27] LABS: ABSOLUTE LYMPHOCYTES# (MANUAL) 0.3 10^3/uL (0.5-4.7); ABSOLUTE MONOCYTES # (MANUAL) 0.6 10^3/uL (0.1-1.4); BAND NEUTROPHILS % (MANUAL) 1 % (3-5); BASOPHILS % (MANUAL) 0 % (0-2); BLOOD UREA NITROGEN 122 mg/dL (7-20); EOSINOPHILS % (MANUAL) 0 % (0-6); LYMPHOCYTES % (MANUAL) 1 % (13-45); MONOCYTES % (MANUAL) 2 % (3-13); SEGMENTED NEUTROPHILS % (MAN) 96 % (42-78); TOTAL CELLS COUNTED 100
[2020-02-06 07:29] LABS: PLATELET COMMENT ADEQUATE; TOXIC GRANULATION SLIGHT
[2020-02-06] MEDS: BUDESONIDE NEB 0.25 MG/2 ML AMPUL NEB SCH (08:44)
[2020-02-06] MEDS: DEXAMETHASONE SOD PHOSPHATE INJ 4 MG/1 ML VIAL IV SCH ×2 (09:49→22:26)
[2020-02-06] MEDS: METOPROLOL TARTRATE 25 MG TABLET NG SCH ×2 (09:49→22:25)
[2020-02-06] MEDS: FAMOTIDINE INJ/PF 20 MG/2 ML SDV IV SCH (09:49)
[2020-02-06] MEDS: CEFEPIME 1 GM/D5W RTU 1 GM/50 ML RTUPB IV SCH ×2 (09:50→21:03)
[2020-02-06] MEDS ORDERED: DEXTROSE 40% GEL 15 GM TUBE X 2 PO PRN (10:00)
[2020-02-06] MEDS ORDERED: DEXTROSE 50%-WATER SYRINGE 12.5 GM/25 ML DOSE IV PRN (10:00)
[2020-02-06] MEDS ORDERED: DEXTROSE 50%-WATER SYRINGE 25 GM/50 ML DOSE IV PRN (10:00)
[2020-02-06] MEDS ORDERED: DEXTROSE 40% GEL 15 GM TUBE PO PRN (10:00)
[2020-02-06] MEDS ORDERED: GLUCAGON,HUMAN RECOMB 1 MG INJ IM PRN (10:00)
[2020-02-06] MEDS ORDERED: RINGERS SOLUTION,LACTATED 1,000 ML IV PRN (11:01)
[2020-02-06] MEDS: LINEZOLID 600 MG/300 ML RTUPB IV SCH ×2 (11:21→22:27)
[2020-02-06] MEDS: INSULIN REG, HUMAN 100 UNIT/ML 3 ML VIAL (PYX) SUBCUT SCH ×4 (11:24→22:28)
[2020-02-06] MEDS ORDERED: INSULIN GLARGINE,HUM.REC.ANLOG 1,000 UNIT/10 ML VIAL SUBCUT SCH (11:30)
--- NOTE | 2020-02-06 12:41 | PDOC PROGRESS REPORT ---
Subjective Progress Note for:: 02/06/20 Subjective:: Patient remains to be intubated and sedated. His white count continues to go up unfortunately. He is started on IV cefepime and linezolid. Reason For Visit: HYPOXEMIC RESPIRATORY FAILURE, HEMODYNAMIC Physical Exam Vital Signs: Temp Pulse Resp BP Pulse Ox 100.8 F H 103 H 16 125/72 91 L 02/06/20 08:00 02/06/20 10:00 02/06/20 10:00 02/06/20 10:00 02/06/20 10:00 Intake & Output 02/05/20 02/06/20 02/07/20 06:59 06:59 06:59 Intake Total 1771 1465 44 Output Total 3250 2965 175 Balance -1479 -1500 -131 Weight 70 kg 67.8 kg Exam: General appearance: [PRESENT: Intubated and sedated] Rest of the physical exam is been deferred due to being high risk as a COVID patient. Results Laboratory Results: 02/06/20 05:55 02/06/20 05:55 02/06/20 02/06/20 05:55 05:55 WBC 32.4 H* RBC 3.09 L Hgb 8.7 L Hct 26.9 L MCV 87 MCH 28.3 MCHC 32.4 RDW 15.6 H Plt Count 205 Seg Neutrophils % Not Reportable Sodium 144.6 Potassium 4.3 Chloride 103 Carbon Dioxide 30 Anion Gap 12 BUN 122 H Creatinine 5.63 H Est GFR ( Amer) 13 L Glucose 292 H Calcium 8.5 01/24/20 01/24/20 01/24/20 00:03 00:03 04:20 Creatine Kinase 80 CK-MB (CK-2) 0.63 Troponin I 0.132 0.133 NT-Pro-B Natriuret Pep 72239 H 01/24/20 01/24/20 01/24/20 10:43 17:19 23:06 Creatine Kinase CK-MB (CK-2) Troponin I 0.114 0.079 0.075 NT-Pro-B Natriuret Pep 54998 H 01/30/20 01/31/20 02/01/20 03:45 05:39 06:14 Creatine Kinase CK-MB (CK-2) Troponin I NT-Pro-B Natriuret Pep 62034 H 73534 H 68395 H 02/02/20 04:24 Creatine Kinase CK-MB (CK-2) Troponin I NT-Pro-B Natriuret Pep 57784 H Impressions: Chest X-Ray 02/05/20 05:00 IMPRESSION: STABLE APPEARANCE OF THE CHEST. SUPPORT DEVICES UNCHANGED. Assessment & Plan - Diagnosis (1) Acute kidney injury superimposed on chronic kidney disease Is this a current diagnosis for this admission?: Yes Plan: Secondary to complication of COVID-19 infection. Most likely secondary to ATN with only very minimal almost negligible proteinuria and microhematuria. Patient is currently nonoliguric . His BUN and creatinine is slowly increasing. I agree with discontinuation of furosemide at this point since the patient haylie ht be a diuretic phase ATN. At this time there is no indication for renal replacement therapy. We will continue to monitor kidney function. (2) Acute respiratory failure due to severe acute respiratory syndrome coronavirus 2 (SARS-CoV-2) infection Is this a current diagnosis for this admission?: Yes Plan: Per switch house operator. Currently on Decadron and heparin drip. (3) COVID-19 Is this a current diagnosis for this admission?: Yes Plan: Has completed treatment for Covid pneumonia but has now restarted on IV cefepime and linezolid.. Unfortunately the patient's leukocytosis seems to be worsening. (4) CKD stage 4 due to type 2 diabetes mellitus Is this a current diagnosis for this admission?: Yes (5) Anemia Qualifiers: Anemia type: due to chronic kidney disease Chronic kidney disease stage: stage 4 (severe) Qualified Code(s): N18.4 - Chronic kidney disease, stage 4 (severe); D63.1 - Anemia in chronic kidney disease Is this a current diagnosis for this admission?: Yes (6) Diabetes type 2, uncontrolled Qualifiers: Glycemic state: with hyperglycemia Qualified Code(s): E11.65 - Type 2 diabetes mellitus with hyperglycemia Is this a current diagnosis for this admission?: Yes Plan: Maintain on insulin drip. (7) Hypertension Is this a current diagnosis for this admission?: Yes Plan: Controlled and not on pressor. (8) Non-ST elevated myocardial infarction (non-STEMI) Is this a current diagnosis for this admission?: Yes (9) Chronically on opiate therapy Is this a current diagnosis for this admission?: Yes - Time Time with patient: 15-25 minutes
[2020-02-06] MEDS ORDERED: INSULIN GLARGINE,HUM.REC.ANLOG 1,000 UNIT/10 ML VIAL (PYX) SUBCUT ONE (13:30)
[2020-02-06 14:00] LABS: PATH REVIEW PATHOLOGIST REVIEWED
[2020-02-06] MEDS: ACETAMINOPHEN SOLN 325 MG/10.15 ML UDCUP NG PRN ×2 (16:29→22:24)
[2020-02-06] MEDS: HEPARIN SODIUM,PORCINE/D5W 25,000 UNIT/250 ML RTUINJ IV PRN (16:41)
[2020-02-07] MEDS: BUDESONIDE NEB 0.25 MG/2 ML AMPUL NEB SCH ×3 (00:14→20:00)
[2020-02-07] MEDS: INSULIN GLARGINE,HUM.REC.ANLOG 1,000 UNIT/10 ML VIAL SUBCUT SCH ×3 (00:30→22:27)
[2020-02-07] MEDS: ALBUTEROL SULFATE 0.083% NEB 2.5 MG/3 ML AMPUL NEB SCH ×4 (02:13→19:45)
[2020-02-07] MEDS: INSULIN REG, HUMAN 100 UNIT/ML 3 ML VIAL (PYX) SUBCUT SCH ×6 (02:55→22:28)
[2020-02-07] MEDS ORDERED: DEXTROSE 50%-WATER 25 GM/50 ML DISP.SYRIN IV PRN ×2 (03:01)
[2020-02-07] MEDS ORDERED: DEXTROSE 40% GEL 15 GM TUBE PO PRN ×2 (03:01)
[2020-02-07] MEDS ORDERED: GLUCAGON,HUMAN RECOMB 1 MG INJ IM PRN (03:01)
[2020-02-07] MEDS: DEXMEDETOMIDINE IN NS 400 MCG/100 ML RTUPB IV PRN ×6 (04:20→22:45)
[2020-02-07] MEDS: FENTANYL CITRATE/PF 600 MCG/60 ML BAG IV PRN ×3 (06:01→19:41)
[2020-02-07 06:41] LABS: HEMATOCRIT 24.5 % (37.9-51.0); MEAN CORPUSCULAR HGB CONC 31.6 g/dL (32.0-36.0); MEAN CORPUSCULAR VOLUME 89 fl (80-97); PLATELET COUNT 238 10^3/uL (150-450); RED BLOOD COUNT 2.77 10^6/uL (4.35-5.55); RED CELL DISTRIBUTION WIDTH 15.3 % (11.5-14.0); WHITE BLOOD COUNT 27.6 10^3/uL (4.0-10.5)
[2020-02-07 06:56] LABS: ALBUMIN 2.4 g/dL (3.5-5.0); ALKALINE PHOSPHATASE 82 U/L (38-126); ANION GAP 10 (5-19); ASPARTATE AMINO TRANSFERASE 20 U/L (17-59); BILIRUBIN,DIRECT 0.1 mg/dL (0.0-0.4); BILIRUBIN,TOTAL 0.3 mg/dL (0.2-1.3); CALCIUM 8.1 mg/dL (8.4-10.2); CARBON DIOXIDE 30 mmol/L (22-30); CHLORIDE 104 mmol/L (98-107); GLUCOSE 312 mg/dL (75-110); PHOSPHORUS 5.2 mg/dL (2.5-4.5); POTASSIUM 3.6 mmol/L (3.6-5.0); TOTAL PROTEIN 5.3 g/dL (6.3-8.2)
[2020-02-07 07:05] LABS: BLOOD UREA NITROGEN 132 mg/dL (7-20)
[2020-02-07] MEDS ORDERED: BISACODYL 10 MG SUPP.RECT PR ONE (08:00)
[2020-02-07] MEDS: HEPARIN SOD (PORCINE) 1,000 UNIT/ML 10 ML VIAL IV PRN (08:02)
[2020-02-07] MEDS: CEFEPIME 1 GM/D5W RTU 1 GM/50 ML RTUPB IV SCH ×2 (08:03→20:59)
[2020-02-07 08:05] LABS: HEMOGLOBIN 7.8 g/dL (13.5-17.0)
[2020-02-07 08:17] LABS: ABSOLUTE LYMPHOCYTES# (MANUAL) 1.7 10^3/uL (0.5-4.7); ABSOLUTE MONOCYTES # (MANUAL) 0.8 10^3/uL (0.1-1.4); BASOPHILS % (MANUAL) 0 % (0-2); EOSINOPHILS % (MANUAL) 0 % (0-6); LYMPHOCYTES % (MANUAL) 6 % (13-45); MONOCYTES % (MANUAL) 3 % (3-13); SEGMENTED NEUTROPHILS % (MAN) 91 % (42-78); TOTAL CELLS COUNTED 100
[2020-02-07 08:18] LABS: ANISOCYTOSIS SLIGHT; POLYCHROMASIA SLIGHT
[2020-02-07 08:19] LABS: PLATELET COMMENT ADEQUATE; TARGET CELLS SLIGHT
--- NOTE | 2020-02-07 09:37 | PDOC CRITICAL CARE PROG REPORT ---
General Date:: 02/06/20 ICU Day:: Hospital Day:: 13 Resuscitation Status: Full Code Events in the past 12 to 24 Hours:: New fever and WBC Review of systems relevant to events:: Pulmonary Reason for ICU Addmission:: Now intubated. - Medications: Medications reviewed and adjusted accordingly: Yes Vasopressors:: None Sedation:: Precedex. Physical Exam Vital Signs: Temp Pulse Resp BP Pulse Ox 100.8 F H 105 H 17 128/74 H 90 L 02/06/20 08:00 02/06/20 08:00 02/06/20 08:00 02/06/20 08:00 02/06/20 08:00 Intake & Output 02/05/20 02/06/20 02/07/20 06:59 06:59 06:59 Intake Total 1771 1465 Output Total 3250 2965 135 Balance -1479 -1500 -135 Weight 70 kg 67.8 kg Weight/Height Weight 67.8 kg Height 5 ft 7 in General appearance: PRESENT: no acute distress, thin Head exam: PRESENT: atraumatic, normocephalic Eye exam: PRESENT: conjunctiva pink, EOMI, PERRLA. ABSENT: scleral icterus Ear exam: PRESENT: normal external ear exam Mouth exam: PRESENT: moist, tongue midline Respiratory exam: PRESENT: clear to auscultation yousif, decreased breath sounds. ABSENT: rales, rhonchi, wheezes Cardiovascular exam: PRESENT: tachycardia GI/Abdominal exam: PRESENT: normal bowel sounds, soft, other - Tolerating TF. ABSENT: distended, guarding, mass, organolmegaly, rebound, tenderness Rectal exam: PRESENT: deferred Gentrourinary exam: PRESENT: indwelling catheter Extremities exam: PRESENT: full ROM. ABSENT: calf tenderness, clubbing, pedal edema Musculoskeletal exam: PRESENT: normal inspection Neurological exam: PRESENT: other - Sedated. Skin exam: PRESENT: dry, intact, warm. ABSENT: cyanosis, rash Tubes/Lines: PRESENT: Endotracheal Tube, Central Line, Arterial Catheter, Nasogastic Tube Laboratory/Radiographs Laboratory Results: 02/06/20 05:55 02/06/20 05:55 02/06/20 02/06/20 05:55 05:55 WBC 32.4 H* RBC 3.09 L Hgb 8.7 L Hct 26.9 L MCV 87 MCH 28.3 MCHC 32.4 RDW 15.6 H Plt Count 205 Seg Neutrophils % Not Reportable Sodium 144.6 Potassium 4.3 Chloride 103 Carbon Dioxide 30 Anion Gap 12 BUN 122 H Creatinine 5.63 H Est GFR ( Amer) 13 L Glucose 292 H Calcium 8.5 01/24/20 01/24/20 01/24/20 00:03 00:03 04:20 Creatine Kinase 80 CK-MB (CK-2) 0.63 Troponin I 0.132 0.133 NT-Pro-B Natriuret Pep [id number] H 01/24/20 01/24/20 01/24/20 10:43 17:19 23:06 Creatine Kinase CK-MB (CK-2) Troponin I 0.114 0.079 0.075 NT-Pro-B Natriuret Pep 97398 H 01/30/20 01/31/20 02/01/20 03:45 05:39 06:14 Creatine Kinase CK-MB (CK-2) Troponin I NT-Pro-B Natriuret Pep 17321 H 72960 H 68947 H 02/02/20 04:24 Creatine Kinase CK-MB (CK-2) Troponin I NT-Pro-B Natriuret Pep 43693 H Impressions: Chest X-Ray 02/05/20 05:00 IMPRESSION: STABLE APPEARANCE OF THE CHEST. SUPPORT DEVICES UNCHANGED. All labs, radiographs, diagnostic studies and EKGs were personally reviewed: Yes In addition, reports of radiographic and diagnostic studies were read: Yes Assessment and Plan - Diagnosis (1) COVID-19 Is this a current diagnosis for this admission?: Yes Plan: Wean vent a tolerated. Doubt the patient is extubatable. Need to discover source of fever and WBC. (2) Acute CHF Qualifiers: Heart failure type: unspecified Qualified Code(s): I50.9 - Heart failure, unspecified Is this a current diagnosis for this admission?: Yes Plan: His I/O have (3) Acute hypoxemic respiratory failure Is this a current diagnosis for this admission?: Yes Plan: Not able to wean today. PSV from 10 to 5 dropped his saturations significantly. PSV at 8. Try again Wed. (4) CKD stage 4 due to type 2 diabetes mellitus Is this a current diagnosis for this admission?: Yes Plan: No HD today. (5) Chronic pain Qualifiers: Chronic pain type: other chronic pain Qualified Code(s): G89.29 - Other chronic pain Is this a current diagnosis for this admission?: Yes Plan: Keep on fentanyl. (6) Diabetes mellitus type 2 in nonobese Is this a current diagnosis for this admission?: Yes Plan: Insulin increase in sliding scale and lantus. Plan Summary: We will attempt weaning again tommorow Critical Time Critical Time (minutes): 35 Level of Care: ICU Anticipated discharge: SNF Within: Other -: 1. The care of a critical patient is a dynamic process. This note is a residential sales representative synopsis but static in nature. The timeframe for treatments given in order is not necessarily the actual time these treatments may have been done. 2. This patient requires critical care secondary to ongoing requirements for therapy not offered or safe outside the critical care environment. Transfer to a lower level of care will result in altered life or limb morbidity and mortality. 3. Multidisciplinary rounds completed. 4. ABCDE bundle addressed.
--- NOTE | 2020-02-07 09:46 | PDOC CRITICAL CARE PROG REPORT ---
General Date:: 02/07/20 ICU Day:: 14 Hospital Day:: 14 Resuscitation Status: Full Code Events in the past 12 to 24 Hours:: Able to wean a bit more today. Review of systems relevant to events:: Pulmonary, endocrine. Reason for ICU Addmission:: Now intubated. - Medications: Medications reviewed and adjusted accordingly: Yes Vasopressors:: None Sedation:: Precedex Physical Exam Vital Signs: Temp Pulse Resp BP Pulse Ox 99.0 F 95 19 119/68 94 02/07/20 08:00 02/07/20 08:50 02/07/20 08:50 02/07/20 08:50 02/07/20 08:50 Intake & Output 02/06/20 02/07/20 02/08/20 06:59 06:59 06:59 Intake Total 1715 1474 206 Output Total 2965 2165 175 Balance -1250 -691 31 Weight 67.8 kg 68.7 kg Weight/Height Weight 68.7 kg Height 5 ft 7 in General appearance: PRESENT: no acute distress, thin, other - Arousable. Head exam: PRESENT: atraumatic, normocephalic Eye exam: PRESENT: conjunctiva pink, EOMI, PERRLA. ABSENT: scleral icterus Ear exam: PRESENT: normal external ear exam Mouth exam: PRESENT: moist, tongue midline Respiratory exam: PRESENT: crackles - Dry crackles, unlabored. ABSENT: rales, rhonchi, wheezes Cardiovascular exam: PRESENT: RRR, tachycardia - Mild. ABSENT: diastolic murmur, rubs, systolic murmur GI/Abdominal exam: PRESENT: normal bowel sounds, soft. ABSENT: distended, guarding, mass, organolmegaly, rebound, tenderness Rectal exam: PRESENT: deferred Gentrourinary exam: PRESENT: indwelling catheter Extremities exam: PRESENT: full ROM. ABSENT: calf tenderness, clubbing, pedal edema Neurological exam: PRESENT: other - Sedated but arousable. Skin exam: PRESENT: dry, intact, warm. ABSENT: cyanosis, rash Tubes/Lines: PRESENT: Endotracheal Tube, Central Line, Nasogastic Tube Laboratory/Radiographs Laboratory Results: 02/07/20 06:02 02/07/20 06:02 02/07/20 02/07/20 06:02 06:02 WBC 27.6 H RBC 2.77 L Hgb 7.8 L Hct 24.5 L MCV 89 MCH 28.0 MCHC 31.6 L RDW 15.3 H Plt Count 238 Seg Neutrophils % Not Reportable Sodium 143.9 Potassium 3.6 Chloride 104 Carbon Dioxide 30 Anion Gap 10 BUN 132 H Creatinine 5.19 H Est GFR ( Amer) 14 L Glucose 312 H Calcium 8.1 L Phosphorus 5.2 H Magnesium 2.2 Total Bilirubin 0.3 AST 20 Alkaline Phosphatase 82 Total Protein 5.3 L Albumin 2.4 L 01/24/20 01/24/20 01/24/20 00:03 00:03 04:20 Creatine Kinase 80 CK-MB (CK-2) 0.63 Troponin I 0.132 0.133 NT-Pro-B Natriuret Pep 47100 H 01/24/20 01/24/20 01/24/20 10:43 17:19 23:06 Creatine Kinase CK-MB (CK-2) Troponin I 0.114 0.079 0.075 NT-Pro-B Natriuret Pep 26446 H 01/30/20 01/31/20 02/01/20 03:45 05:39 06:14 Creatine Kinase CK-MB (CK-2) Troponin I NT-Pro-B Natriuret Pep 66354 H 66551 H 63264 H 02/02/20 04:24 Creatine Kinase CK-MB (CK-2) Troponin I NT-Pro-B Natriuret Pep 39916 H Impressions: Chest X-Ray 02/05/20 05:00 IMPRESSION: STABLE APPEARANCE OF THE CHEST. SUPPORT DEVICES UNCHANGED. All labs, radiographs, diagnostic studies and EKGs were personally reviewed: Yes In addition, reports of radiographic and diagnostic studies were read: Yes Assessment and Plan - Diagnosis (1) COVID-19 Is this a current diagnosis for this admission?: Yes Plan: Making slow progress. Able to wean more. (2) Acute CHF Qualifiers: Heart failure type: unspecified Qualified Code(s): I50.9 - Heart failure, unspecified Is this a current diagnosis for this admission?: Yes Plan: Lasix stopped as he has been negative for I/O for several days. (3) Acute hypoxemic respiratory failure Is this a current diagnosis for this admission?: Yes Plan: Able to decrease both FiO2 and PSV today. Will continue as tolerated. (4) CKD stage 4 due to type 2 diabetes mellitus Is this a current diagnosis for this admission?: Yes Plan: Cr a bit worse but not volume overloaded, hyprkalemic or acidotic. Doubt HD today. (5) Chronic pain Qualifiers: Chronic pain type: other chronic pain Qualified Code(s): G89.29 - Other chronic pain Is this a current diagnosis for this admission?: Yes Plan: Keep on fentanyl (6) Diabetes mellitus type 2 in nonobese Is this a current diagnosis for this admission?: Yes Plan: Will increase lantusagain. Plan Summary: Still needs vent support. Wean slowly. Critical Time Critical Time (minutes): 35 Level of Care: ICU Anticipated discharge: SNF Within: Other -: 1. The care of a critical patient is a dynamic process. This note is a sales and merchandising representative synopsis but static in nature. The timeframe for treatments given in order is not necessarily the actual time these treatments may have been done. 2. This patient requires critical care secondary to ongoing requirements for therapy not offered or safe outside the critical care environment. Transfer to a lower level of care will result in altered life or limb morbidity and mortality. 3. Multidisciplinary rounds completed. 4. ABCDE bundle addressed.
[2020-02-07] MEDS: LINEZOLID 600 MG/300 ML RTUPB IV SCH ×2 (10:05→22:28)
[2020-02-07] MEDS: FAMOTIDINE INJ/PF 20 MG/2 ML SDV IV SCH (10:48)
[2020-02-07] MEDS: METOPROLOL TARTRATE 25 MG TABLET NG SCH ×2 (10:48→22:29)
[2020-02-07] MEDS: DEXAMETHASONE SOD PHOSPHATE INJ 4 MG/1 ML VIAL IV SCH ×2 (10:48→22:28)
[2020-02-07] MEDS ORDERED: INSULIN GLARGINE,HUM.REC.ANLOG 1,000 UNIT/10 ML VIAL (PYX) SUBCUT ONE (11:00)
[2020-02-07] MEDS ORDERED: INSULIN GLARGINE,HUM.REC.ANLOG 1,000 UNIT/10 ML VIAL SUBCUT SCH (11:15)
[2020-02-07] MEDS: HEPARIN SODIUM,PORCINE/D5W 25,000 UNIT/250 ML RTUINJ IV PRN (11:45)
--- NOTE | 2020-02-07 22:46 | PDOC PROGRESS REPORT ---
Subjective Progress Note for:: 02/07/20 Subjective:: Patient's clinical condition remains unchanged. He continues to have a good urine output 2165 mL for the past 24 hours without any furosemide. Reason For Visit: HYPOXEMIC RESPIRATORY FAILURE, HEMODYNAMIC Physical Exam Vital Signs: Temp Pulse Resp BP Pulse Ox 98.6 F 90 14 115/66 92 02/07/20 10:00 02/07/20 10:00 02/07/20 10:00 02/07/20 10:00 02/07/20 10:00 Intake & Output 02/06/20 02/07/20 02/08/20 06:59 06:59 06:59 Intake Total 1715 1774 656 Output Total 2965 2165 550 Balance -1250 -391 106 Weight 67.8 kg 68.7 kg Exam: General appearance: PRESENT: Intubated and sedated The rest of the physical exam deferred due to COVID-19 isolation. Results Laboratory Results: 02/07/20 06:02 02/07/20 06:02 02/07/20 02/07/20 06:02 06:02 WBC 27.6 H RBC 2.77 L Hgb 7.8 L Hct 24.5 L MCV 89 MCH 28.0 MCHC 31.6 L RDW 15.3 H Plt Count 238 Seg Neutrophils % Not Reportable Sodium 143.9 Potassium 3.6 Chloride 104 Carbon Dioxide 30 Anion Gap 10 BUN 132 H Creatinine 5.19 H Est GFR ( Amer) 14 L Glucose 312 H Calcium 8.1 L Phosphorus 5.2 H Magnesium 2.2 Total Bilirubin 0.3 AST 20 Alkaline Phosphatase 82 Total Protein 5.3 L Albumin 2.4 L 01/24/20 01/24/20 01/24/20 00:03 00:03 04:20 Creatine Kinase 80 CK-MB (CK-2) 0.63 Troponin I 0.132 0.133 NT-Pro-B Natriuret Pep 45571 H 01/24/20 01/24/20 01/24/20 10:43 17:19 23:06 Creatine Kinase CK-MB (CK-2) Troponin I 0.114 0.079 0.075 NT-Pro-B Natriuret Pep 26243 H 01/30/20 01/31/20 02/01/20 03:45 05:39 06:14 Creatine Kinase CK-MB (CK-2) Troponin I NT-Pro-B Natriuret Pep 73453 H 00189 H 74599 H 02/02/20 04:24 Creatine Kinase CK-MB (CK-2) Troponin I NT-Pro-B Natriuret Pep 41504 H Impressions: Chest X-Ray 02/05/20 05:00 IMPRESSION: STABLE APPEARANCE OF THE CHEST. SUPPORT DEVICES UNCHANGED. Assessment & Plan - Diagnosis (1) Acute kidney injury superimposed on chronic kidney disease Is this a current diagnosis for this admission?: Yes Plan: Secondary to complication of COVID-19 infection. Most likely secondary to ATN with only very minimal almost negligible proteinuria and microhematuria. Patient is remains non-oliguric . His BUN is rising although the creatinine is trending down. I agree with discontinuation of furosemide at this point since the patient might be a diuretic phase ATN. At this time there is no indication for renal replacement therapy. We will continue to monitor kidney function. (2) Acute respiratory failure due to severe acute respiratory syndrome coronavirus 2 (SARS-CoV-2) infection Is this a current diagnosis for this admission?: Yes Plan: Per catcher helper. Currently on Decadron and heparin drip. (3) COVID-19 Is this a current diagnosis for this admission?: Yes Plan: Has completed treatment for Covid pneumonia but has now restarted on IV cefepime and linezolid. Leukocytosis is slightly decreased today but still elevated. (4) CKD stage 4 due to type 2 diabetes mellitus Is this a current diagnosis for this admission?: Yes (5) Anemia Qualifiers: Anemia type: due to chronic kidney disease Chronic kidney disease stage: stage 4 (severe) Qualified Code(s): N18.4 - Chronic kidney disease, stage 4 (severe); D63.1 - Anemia in chronic kidney disease Is this a current diagnosis for this admission?: Yes (6) Diabetes type 2, uncontrolled Qualifiers: Glycemic state: with hyperglycemia Qualified Code(s): E11.65 - Type 2 diabetes mellitus with hyperglycemia Is this a current diagnosis for this admission?: Yes Plan: Still uncontrolled but off insulin drip. (7) Hypertension Is this a current diagnosis for this admission?: Yes Plan: Controlled and not on pressor. (8) Non-ST elevated myocardial infarction (non-STEMI) Is this a current diagnosis for this admission?: Yes (9) Chronically on opiate therapy Is this a current diagnosis for this admission?: Yes - Time Time with patient: 15-25 minutes
[2020-02-08 00:36] LABS: HEPATITIS C QUANTITATION HCV Not Detected IU/mL (.)
[2020-02-08] MEDS: FENTANYL CITRATE/PF 600 MCG/60 ML BAG IV PRN ×4 (01:28→18:32)
[2020-02-08] MEDS: ACETAMINOPHEN SOLN 325 MG/10.15 ML UDCUP NG PRN ×2 (01:31→10:48)
[2020-02-08] MEDS: INSULIN REG, HUMAN 100 UNIT/ML 3 ML VIAL (PYX) SUBCUT SCH ×6 (01:44→21:29)
[2020-02-08] MEDS: ALBUTEROL SULFATE 0.083% NEB 2.5 MG/3 ML AMPUL NEB SCH ×4 (02:36→20:30)
[2020-02-08] MEDS: DEXMEDETOMIDINE IN NS 400 MCG/100 ML RTUPB IV PRN ×5 (03:15→23:53)
[2020-02-08] MEDS: HEPARIN SODIUM,PORCINE/D5W 25,000 UNIT/250 ML RTUINJ IV PRN (05:11)
[2020-02-08 05:53] LABS: ANION GAP 9 (5-19); CALCIUM 8.1 mg/dL (8.4-10.2); CARBON DIOXIDE 28 mmol/L (22-30); CHLORIDE 107 mmol/L (98-107); GLUCOSE 128 mg/dL (75-110); POTASSIUM 3.7 mmol/L (3.6-5.0)
[2020-02-08 06:00] LABS: BLOOD UREA NITROGEN 127 mg/dL (7-20)
[2020-02-08 06:14] LABS: HEMATOCRIT 23.9 % (37.9-51.0); MEAN CORPUSCULAR HGB CONC 31.7 g/dL (32.0-36.0); MEAN CORPUSCULAR VOLUME 88 fl (80-97); PLATELET COUNT 254 10^3/uL (150-450); RED BLOOD COUNT 2.71 10^6/uL (4.35-5.55); RED CELL DISTRIBUTION WIDTH 15.3 % (11.5-14.0); WHITE BLOOD COUNT 24.3 10^3/uL (4.0-10.5)
[2020-02-08 07:11] LABS: HEMOGLOBIN 7.6 g/dL (13.5-17.0)
[2020-02-08] MEDS: BUDESONIDE NEB 0.25 MG/2 ML AMPUL NEB SCH ×2 (08:51→20:30)
[2020-02-08] MEDS: CEFEPIME 1 GM/D5W RTU 1 GM/50 ML RTUPB IV SCH ×2 (09:05→21:31)
--- NOTE | 2020-02-08 09:13 | PDOC CRITICAL CARE PROG REPORT ---
General Date:: 02/08/20 ICU Day:: 15 Hospital Day:: 15 Resuscitation Status: Full Code Events in the past 12 to 24 Hours:: Able to tolerate PSV ventilation and FiO2 wean to 50%. Review of systems relevant to events:: Pulmonary Reason for ICU Addmission:: Now intubated. - Medications: Medications reviewed and adjusted accordingly: Yes Vasopressors:: None Sedation:: Precedex Physical Exam Vital Signs: Temp Pulse Resp BP Pulse Ox 100.9 F H 102 H 18 105/71 93 02/08/20 08:00 02/08/20 08:00 02/08/20 08:00 02/08/20 08:00 02/08/20 08:00 Intake & Output 02/07/20 02/08/20 02/09/20 06:59 06:59 06:59 Intake Total 1774 2390 118 Output Total 2165 2275 150 Balance -391 115 -32 Weight 68.7 kg 70.6 kg Weight/Height Weight 70.6 kg Height 5 ft 7 in General appearance: PRESENT: no acute distress, thin Head exam: PRESENT: atraumatic, normocephalic Eye exam: PRESENT: conjunctiva pink, EOMI, PERRLA. ABSENT: scleral icterus Ear exam: PRESENT: normal external ear exam Mouth exam: PRESENT: moist, tongue midline Respiratory exam: PRESENT: clear to auscultation yousif, decreased breath sounds. ABSENT: rales, rhonchi, wheezes Cardiovascular exam: PRESENT: RRR, tachycardia GI/Abdominal exam: PRESENT: normal bowel sounds, soft. ABSENT: distended, guarding, mass, organolmegaly, rebound, tenderness Rectal exam: PRESENT: deferred Gentrourinary exam: PRESENT: indwelling catheter Extremities exam: PRESENT: calf tenderness Neurological exam: PRESENT: altered, awake Skin exam: PRESENT: dry, intact, warm. ABSENT: cyanosis, rash Tubes/Lines: PRESENT: Endotracheal Tube, Central Line, Nasogastic Tube Laboratory/Radiographs Laboratory Results: 02/08/20 05:10 02/08/20 05:10 02/08/20 02/08/20 05:10 05:10 WBC 24.3 H RBC 2.71 L Hgb 7.6 L Hct 23.9 L MCV 88 MCH 28.0 MCHC 31.7 L RDW 15.3 H Plt Count 254 Sodium 144.4 Potassium 3.7 Chloride 107 Carbon Dioxide 28 Anion Gap 9 BUN 127 H Creatinine 4.55 H Est GFR ( Amer) 16 L Glucose 128 H Calcium 8.1 L 01/24/20 01/24/20 01/24/20 00:03 00:03 04:20 Creatine Kinase 80 CK-MB (CK-2) 0.63 Troponin I 0.132 0.133 NT-Pro-B Natriuret Pep 45019 H 01/24/20 01/24/20 01/24/20 10:43 17:19 23:06 Creatine Kinase CK-MB (CK-2) Troponin I 0.114 0.079 0.075 NT-Pro-B Natriuret Pep 59484 H 01/30/20 01/31/20 02/01/20 03:45 05:39 06:14 Creatine Kinase CK-MB (CK-2) Troponin I NT-Pro-B Natriuret Pep 22994 H 30299 H 51047 H 02/02/20 04:24 Creatine Kinase CK-MB (CK-2) Troponin I NT-Pro-B Natriuret Pep 49200 H Impressions: Chest X-Ray 02/05/20 05:00 IMPRESSION: STABLE APPEARANCE OF THE CHEST. SUPPORT DEVICES UNCHANGED. All labs, radiographs, diagnostic studies and EKGs were personally reviewed: Yes In addition, reports of radiographic and diagnostic studies were read: Yes Assessment and Plan - Diagnosis (1) COVID-19 Is this a current diagnosis for this admission?: Yes Plan: As we have seen with COVID-19 he is making slow progress and is improving but at a slow pace. (2) Acute CHF Qualifiers: Heart failure type: unspecified Qualified Code(s): I50.9 - Heart failure, unspecified Is this a current diagnosis for this admission?: Yes Plan: His overall I/O are still negative without lasix. (3) Acute hypoxemic respiratory failure Is this a current diagnosis for this admission?: Yes Plan: Improving. ARDS was suggested and perhaps earlier he met mild ARDS Sterrett criteria but not now. He does not have fluffy bilateral infiltrates commonly seen. (4) CKD stage 4 due to type 2 diabetes mellitus Is this a current diagnosis for this admission?: Yes Plan: He has not had or neded HD for days. U/O is good and he is neither acidotic or hyperkalemic. FR still only 13. (5) Chronic pain Qualifiers: Chronic pain type: other chronic pain Qualified Code(s): G89.29 - Other chronic pain Is this a current diagnosis for this admission?: Yes Plan: Stable on fentanyl drip. (6) Diabetes mellitus type 2 in nonobese Is this a current diagnosis for this admission?: Yes Plan: Better control with higher lantus dose. Plan Summary: Continue slow wean of ventilator. Down to 50% and PEEP 8. Critical Time Critical Time (minutes): 35 Level of Care: ICU Anticipated discharge: SNF Within: Other -: 1. The care of a critical patient is a dynamic process. This note is a insurance verification representative synopsis but static in nature. The timeframe for treatments given in order is not necessarily the actual time these treatments may have been done. 2. This patient requires critical care secondary to ongoing requirements for therapy not offered or safe outside the critical care environment. Transfer to a lower level of care will result in altered life or limb morbidity and mortality. 3. Multidisciplinary rounds completed. 4. ABCDE bundle addressed.
--- NOTE | 2020-02-08 09:14 | PDOC PROGRESS REPORT ---
Subjective Progress Note for:: 02/08/20 Subjective:: Clinical condition remains unchanged. He remains to be intubated and sedated. Urine output for the last 24 hours was 20 to 75 mL with slightly positive fluid balance +115 mL. Reason For Visit: HYPOXEMIC RESPIRATORY FAILURE, HEMODYNAMIC Physical Exam Vital Signs: Temp Pulse Resp BP Pulse Ox 100.9 F H 99 18 105/71 93 02/08/20 08:00 02/08/20 08:00 02/08/20 08:00 02/08/20 08:00 02/08/20 08:00 Intake & Output 02/07/20 02/08/20 02/09/20 06:59 06:59 06:59 Intake Total 1774 2390 118 Output Total 2165 2275 150 Balance -391 115 -32 Weight 68.7 kg 70.6 kg Exam: General appearance: PRESENT: Intubated and sedated Head exam: PRESENT: atraumatic, normocephalic Neurological exam: PRESENT: Sedated. Skin exam: PRESENT: dry, warm, appears to be pale Rest of the exam was not done due to high risk COVID-19 infection. Results Laboratory Results: 02/08/20 05:10 02/08/20 05:10 02/08/20 02/08/20 05:10 05:10 WBC 24.3 H RBC 2.71 L Hgb 7.6 L Hct 23.9 L MCV 88 MCH 28.0 MCHC 31.7 L RDW 15.3 H Plt Count 254 Sodium 144.4 Potassium 3.7 Chloride 107 Carbon Dioxide 28 Anion Gap 9 BUN 127 H Creatinine 4.55 H Est GFR ( Amer) 16 L Glucose 128 H Calcium 8.1 L 01/24/20 01/24/20 01/24/20 00:03 00:03 04:20 Creatine Kinase 80 CK-MB (CK-2) 0.63 Troponin I 0.132 0.133 NT-Pro-B Natriuret Pep [id number] H 01/24/20 01/24/20 01/24/20 10:43 17:19 23:06 Creatine Kinase CK-MB (CK-2) Troponin I 0.114 0.079 0.075 NT-Pro-B Natriuret Pep 09659 H 01/30/20 01/31/20 02/01/20 03:45 05:39 06:14 Creatine Kinase CK-MB (CK-2) Troponin I NT-Pro-B Natriuret Pep 03514 H 41822 H 46249 H 02/02/20 04:24 Creatine Kinase CK-MB (CK-2) Troponin I NT-Pro-B Natriuret Pep 74770 H Impressions: Chest X-Ray 02/05/20 05:00 IMPRESSION: STABLE APPEARANCE OF THE CHEST. SUPPORT DEVICES UNCHANGED. Assessment & Plan - Diagnosis (1) Acute kidney injury superimposed on chronic kidney disease Is this a current diagnosis for this admission?: Yes Plan: Secondary to complication of COVID-19 infection. Most likely secondary to ATN with only very minimal almost negligible proteinuria and microhematuria. Patient is remains non-oliguric . Today his BUN and creatinine are trending down. I agree with discontinuation of furosemide at this point since the patient might be a diuretic phase ATN. At this time there is no indication for renal replacement therapy. We will continue to monitor kidney function. (2) Acute respiratory failure due to severe acute respiratory syndrome coronavirus 2 (SARS-CoV-2) infection Is this a current diagnosis for this admission?: Yes Plan: Per drapery head former. Currently on Decadron at 1 mg every 12 hours and heparin drip. (3) COVID-19 Is this a current diagnosis for this admission?: Yes Plan: Has initially completed treatment for Covid pneumonia but has been restarted on IV cefepime and linezolid this week. Leukocytosis trending down. (4) CKD stage 4 due to type 2 diabetes mellitus Is this a current diagnosis for this admission?: Yes (5) Anemia Qualifiers: Qualified Code(s): N18.4 - Chronic kidney disease, stage 4 (severe); D63.1 - Anemia in chronic kidney disease Is this a current diagnosis for this admission?: Yes Plan: Hemoglobin continues to drop. Might need blood transfusion at one point. (6) Diabetes type 2, uncontrolled Qualifiers: Qualified Code(s): E11.65 - Type 2 diabetes mellitus with hyperglycemia Is this a current diagnosis for this admission?: Yes Plan: Still uncontrolled but off insulin drip. (7) Hypertension Is this a current diagnosis for this admission?: Yes Plan: Controlled and not on pressor. (8) Non-ST elevated myocardial infarction (non-STEMI) Is this a current diagnosis for this admission?: Yes (9) Chronically on opiate therapy Is this a current diagnosis for this admission?: Yes - Time Time with patient: 15-25 minutes
[2020-02-08] MEDS: DEXAMETHASONE SOD PHOSPHATE INJ 4 MG/1 ML VIAL IV SCH ×2 (10:48→21:32)
[2020-02-08] MEDS: FAMOTIDINE INJ/PF 20 MG/2 ML SDV IV SCH (10:48)
[2020-02-08] MEDS: METOPROLOL TARTRATE 25 MG TABLET NG SCH ×2 (10:49→21:34)
[2020-02-08] MEDS: INSULIN GLARGINE,HUM.REC.ANLOG 1,000 UNIT/10 ML VIAL SUBCUT SCH ×2 (10:53→21:30)
[2020-02-08] MEDS: LINEZOLID 600 MG/300 ML RTUPB IV SCH ×2 (11:33→21:35)
[2020-02-08] MEDS: RINGERS SOLUTION,LACTATED 1,000 ML IV PRN (17:47)
[2020-02-08] MEDS ORDERED: DEXTROSE 40% GEL 15 GM TUBE PO PRN ×2 (23:35)
[2020-02-08] MEDS ORDERED: GLUCAGON,HUMAN RECOMB 1 MG INJ IM PRN (23:35)
[2020-02-09] MEDS: HEPARIN SODIUM,PORCINE/D5W 25,000 UNIT/250 ML RTUINJ IV PRN ×2 (00:10→17:05)
[2020-02-09] MEDS: FENTANYL CITRATE/PF 600 MCG/60 ML BAG IV PRN ×5 (00:10→23:15)
[2020-02-09] MEDS: INSULIN REG, HUMAN 100 UNIT/ML 3 ML VIAL (PYX) SUBCUT SCH ×4 (00:43→18:07)
[2020-02-09] MEDS: ALBUTEROL SULFATE 0.083% NEB 2.5 MG/3 ML AMPUL NEB SCH ×4 (01:30→19:48)
[2020-02-09 04:59] LABS: HEMATOCRIT 23.3 % (37.9-51.0); MEAN CORPUSCULAR HEMOGLOBIN 27.9 pg (27.0-33.4); MEAN CORPUSCULAR HGB CONC 31.7 g/dL (32.0-36.0); MEAN CORPUSCULAR VOLUME 88 fl (80-97); PLATELET COUNT 269 10^3/uL (150-450); RED BLOOD COUNT 2.64 10^6/uL (4.35-5.55); RED CELL DISTRIBUTION WIDTH 15.2 % (11.5-14.0); WHITE BLOOD COUNT 19.8 10^3/uL (4.0-10.5)
[2020-02-09 05:01] LABS: HEMOGLOBIN 7.4 g/dL (13.5-17.0)
[2020-02-09 05:03] LABS: APPEARANCE,URINE TURBID; BILIRUBIN,URINE NEGATIVE (NEGATIVE); COLOR,URINE YELLOW; GLUCOSE, URINE NEGATIVE (NEGATIVE); KETONES,URINE NEGATIVE (NEGATIVE); LEUKOCYTE ESTERASE,URINE MODERATE (NEGATIVE); NITRITE,URINE NEGATIVE (NEGATIVE); PROTEIN,URINE 100 mg/dL (NEGATIVE); URINE SPECIFIC GRAVITY 1.013; UROBILINOGEN,URINE NEGATIVE mg/dL (<2.0)
[2020-02-09] MEDS: DEXMEDETOMIDINE IN NS 400 MCG/100 ML RTUPB IV PRN ×4 (05:50→23:15)
[2020-02-09] MEDS: BUDESONIDE NEB 0.25 MG/2 ML AMPUL NEB SCH ×2 (07:48→20:10)
[2020-02-09 07:58] LABS: BLOOD UREA NITROGEN 117 mg/dL (7-20); CALCIUM 8.4 mg/dL (8.4-10.2); CARBON DIOXIDE 29 mmol/L (22-30); CHLORIDE 109 mmol/L (98-107); POTASSIUM 3.8 mmol/L (3.6-5.0)
--- NOTE | 2020-02-09 07:59 | PDOC CRITICAL CARE PROG REPORT ---
General Date:: 02/09/20 ICU Day:: 16 Ventilator Day:: 11 Hospital Day:: 16 Resuscitation Status: Full Code Events in the past 12 to 24 Hours:: Able to continue slow wean on vent Review of systems relevant to events:: Pulmonary. Reason for ICU Addmission:: Now intubated. - Medications: Medications reviewed and adjusted accordingly: Yes Vasopressors:: None Sedation:: Precedex Physical Exam Vital Signs: Temp Pulse Resp BP Pulse Ox 100.4 F 98 18 128/72 H 90 L 02/09/20 06:00 02/09/20 01:35 02/09/20 06:03 02/09/20 06:03 02/09/20 06:03 Intake & Output 02/08/20 02/09/20 02/10/20 06:59 06:59 06:59 Intake Total 2390 1920 Output Total 2275 95864 Balance 115 -92622 Weight 70.6 kg 70.6 kg Weight/Height Weight 70.6 kg Height 5 ft 7 in General appearance: PRESENT: no acute distress Head exam: PRESENT: atraumatic, normocephalic Eye exam: PRESENT: conjunctiva pink, EOMI, PERRLA. ABSENT: scleral icterus Ear exam: PRESENT: normal external ear exam Mouth exam: PRESENT: moist, tongue midline Respiratory exam: PRESENT: decreased breath sounds, rhonchi - Both barnett., unlabored Cardiovascular exam: PRESENT: RRR. ABSENT: diastolic murmur, rubs, systolic murmur GI/Abdominal exam: PRESENT: normal bowel sounds, soft. ABSENT: distended, guarding, mass, organolmegaly, rebound, tenderness Rectal exam: PRESENT: deferred Gentrourinary exam: PRESENT: indwelling catheter Extremities exam: PRESENT: full ROM. ABSENT: calf tenderness, clubbing, pedal edema Musculoskeletal exam: PRESENT: normal inspection Neurological exam: PRESENT: altered, CN II-XII grossly intact, other - Arousable. Skin exam: PRESENT: dry, intact, warm. ABSENT: cyanosis, rash Tubes/Lines: PRESENT: Endotracheal Tube, Central Line, Nasogastic Tube Laboratory/Radiographs Laboratory Results: 02/09/20 04:15 02/09/20 02/09/20 04:15 04:15 WBC 19.8 H RBC 2.64 L Hgb 7.4 L Hct 23.3 L MCV 88 MCH 27.9 MCHC 31.7 L RDW 15.2 H Plt Count 269 Urine Color YELLOW Urine Appearance TURBID Urine pH 6.0 Ur Specific Galliano 1.013 Urine Protein 100 H Urine Glucose (UA) NEGATIVE Urine Ketones NEGATIVE Urine Blood LARGE H Urine Nitrite NEGATIVE Ur Leukocyte Esterase MODERATE H Urine WBC (Auto) 59 Urine RBC (Auto) 72 02/06/20 20:05 Varner Catheter Urine Culture - Final Enterococcus Faecalis(Group D) Yeast, Not Leah Albicans 02/06/20 20:05 Tracheal Aspirate Gram Stain - Final 02/06/20 20:05 Tracheal Aspirate Sputum Culture - Final C.albicans/C.dubliniensis Reduced Normal Kathie 01/24/20 01/24/20 01/24/20 00:03 00:03 04:20 Creatine Kinase 80 CK-MB (CK-2) 0.63 Troponin I 0.132 0.133 NT-Pro-B Natriuret Pep 10647 H 01/24/20 01/24/20 01/24/20 10:43 17:19 23:06 Creatine Kinase CK-MB (CK-2) Troponin I 0.114 0.079 0.075 NT-Pro-B Natriuret Pep 80740 H 01/30/20 01/31/20 02/01/20 03:45 05:39 06:14 Creatine Kinase CK-MB (CK-2) Troponin I NT-Pro-B Natriuret Pep 60760 H 33986 H 30348 H 02/02/20 04:24 Creatine Kinase CK-MB (CK-2) Troponin I NT-Pro-B Natriuret Pep 56903 H Impressions: Chest X-Ray 02/05/20 05:00 IMPRESSION: STABLE APPEARANCE OF THE CHEST. SUPPORT DEVICES UNCHANGED. All labs, radiographs, diagnostic studies and EKGs were personally reviewed: Yes In addition, reports of radiographic and diagnostic studies were read: Yes Assessment and Plan - Diagnosis (1) COVID-19 Is this a current diagnosis for this admission?: Yes Plan: Slowly weaning vent. Hope to have extubated soon. (2) Acute CHF Qualifiers: Heart failure type: unspecified Qualified Code(s): I50.9 - Heart failure, unspecified Is this a current diagnosis for this admission?: Yes Plan: IVF restarted at low rate for dehydration and oliguria. (3) Acute hypoxemic respiratory failure Is this a current diagnosis for this admission?: Yes Plan: Improving. Still having episodes of dropping O2 saturations into 80s. (4) CKD stage 4 due to type 2 diabetes mellitus Is this a current diagnosis for this admission?: Yes Plan: Labs still pending from today. (5) Chronic pain Qualifiers: Chronic pain type: other chronic pain Qualified Code(s): G89.29 - Other ch ronic pain Is this a current diagnosis for this admission?: Yes Plan: He is moving his back and arching like he is in pain but does not say so. I'm not sure if he can understand. (6) Diabetes mellitus type 2 in nonobese Is this a current diagnosis for this admission?: Yes Plan: Better control Plan Summary: FiO2 down to 40% then will try PEEP to 5. Critical Time Critical Time (minutes): 35 Level of Care: ICU Anticipated discharge: SNF Within: Other -: 1. The care of a critical patient is a dynamic process. This note is a retail account representative synopsis but static in nature. The timeframe for treatments g iven in order is not necessarily the actual time these treatments may have been done. 2. This patient requires critical care secondary to ongoing requirements for therapy not offered or safe outside the critical care environment. Transfer to a lower level of care will result in altered life or limb morbidity and mortality. 3. Multidisciplinary rounds completed. 4. ABCDE bundle addressed.
[2020-02-09 08:23] LABS: GLUCOSE 68 mg/dL (75-110)
[2020-02-09 08:25] LABS: ANION GAP 8 (5-19)
[2020-02-09] MEDS: DEXAMETHASONE SOD PHOSPHATE INJ 4 MG/1 ML VIAL IV SCH ×2 (09:06→21:10)
[2020-02-09] MEDS: CEFEPIME 1 GM/D5W RTU 1 GM/50 ML RTUPB IV SCH ×2 (09:06→20:13)
[2020-02-09] MEDS: FAMOTIDINE INJ/PF 20 MG/2 ML SDV IV SCH (09:07)
[2020-02-09] MEDS: METOPROLOL TARTRATE 25 MG TABLET NG SCH ×2 (09:07→21:10)
[2020-02-09] MEDS: ACETAMINOPHEN SOLN 325 MG/10.15 ML UDCUP NG PRN (09:08)
[2020-02-09] MEDS: RINGERS SOLUTION,LACTATED 1,000 ML IV PRN (09:09)
[2020-02-09] MEDS: POLYETHYLENE GLYCOL 3350 POWDER 17 GM/1 PACKET NG PRN (09:10)
--- NOTE | 2020-02-09 09:32 | PDOC PROGRESS REPORT ---
Subjective Progress Note for:: 02/09/20 Subjective:: Patient still intubated but FiO2 is decreased now to 40%. He continues to pass adequate amount of urine with urine output of about 1875 mL for the past 24 hours. He is a started on minimal IV fluids with LR. Otherwise clinically unchanged. Reason For Visit: HYPOXEMIC RESPIRATORY FAILURE, HEMODYNAMIC Physical Exam Vital Signs: Temp Pulse Resp BP Pulse Ox 100.4 F 99 17 118/61 89 L 02/09/20 08:00 02/09/20 08:00 02/09/20 08:00 02/09/20 08:00 02/09/20 08:00 Intake & Output 02/08/20 02/09/20 02/10/20 06:59 06:59 06:59 Intake Total 2390 1920 Output Total 7225 06807 250 Balance 115 -81745 -250 Weight 70.6 kg 70.6 kg Exam: General appearance: PRESENT: Intubated and sedated Head exam: PRESENT: atraumatic, normocephalic Skin exam: PRESENT: dry, warm, generalized pallor Rest of the exam is deferred due to high risk COVID-19. Results Laboratory Results: 02/09/20 04:15 02/09/20 06:50 02/09/20 02/09/20 02/09/20 04:15 04:15 06:50 WBC 19.8 H RBC 2.64 L Hgb 7.4 L Hct 23.3 L MCV 88 MCH 27.9 MCHC 31.7 L RDW 15.2 H Plt Count 269 Sodium 146.4 H Potassium 3.8 Chloride 109 H Carbon Dioxide 29 Anion Gap 8 BUN 117 H Creatinine 4.26 H Est GFR ( Amer) 17 L Glucose 68 L Calcium 8.4 Urine Color YELLOW Urine Appearance TURBID Urine pH 6.0 Ur Specific Cla[place]orne 1.013 Urine Protein 100 H Urine Glucose (UA) NEGATIVE Urine Ketones NEGATIVE Urine Blood LARGE H Urine Nitrite NEGATIVE Ur Leukocyte Esterase MODERATE H Urine WBC (Auto) 59 Urine RBC (Auto) 72 02/06/20 20:05 Varner Catheter Urine Culture - Final Enterococcus Faecalis(Group D) Yeast, Not Leah Albicans 02/06/20 20:05 Tracheal Aspirate Gram Stain - Final 02/06/20 20:05 Tracheal Aspirate Sputum Culture - Final C.albicans/C.dubliniensis Reduced Normal Kathie 01/24/20 01/24/20 01/24/20 00:03 00:03 04:20 Creatine Kinase 80 CK-MB (CK-2) 0.63 Troponin I 0.132 0.133 NT-Pro-B Natriuret Pep 34631 H 01/24/20 01/24/20 01/24/20 10:43 17:19 23:06 Creatine Kinase CK-MB (CK-2) Troponin I 0.114 0.079 0.075 NT-Pro-B Natriuret Pep 85492 H 01/30/20 01/31/20 02/01/20 03:45 05:39 06:14 Creatine Kinase CK-MB (CK-2) Troponin I NT-Pro-B Natriuret Pep 22397 H 04737 H 21500 H 02/02/20 04:24 Creatine Kinase CK-MB (CK-2) Troponin I NT-Pro-B Natriuret Pep 16269 H Impressions: Chest X-Ray 02/05/20 05:00 IMPRESSION: STABLE APPEARANCE OF THE CHEST. SUPPORT DEVICES UNCHANGED. Assessment & Plan - Diagnosis (1) Acute kidney injury superimposed on chronic kidney disease Is this a current diagnosis for this admission?: Yes Plan: Secondary to complication of COVID-19 infection. Most likely secondary to ATN with only very minimal almost negligible proteinuria and microhematuria. Patient is remains non-oliguric without diuretics. His BUN and creatinine continues to trend down. Patient on diuretic phase ATN. At this time there is no indication for renal replacement therapy. We will continue to monitor kidney function. As the patient sodium is a starting to creep up I agree with minimal IV fluids to maintain euvolemia. (2) Acute respiratory failure due to severe acute respiratory syndrome coronavirus 2 (SARS-CoV-2) infection Is this a current diagnosis for this admission?: Yes Plan: Per editing intern. Currently on Decadron at 1 mg every 12 hours and heparin drip. (3) COVID-19 Is this a current diagnosis for this admission?: Yes Plan: Has initially completed treatment for Covid pneumonia but has been restarted on IV cefepime and linezolid this week. Leukocytosis trending down. (4) CKD stage 4 due to type 2 diabetes mellitus Is this a current diagnosis for this admission?: Yes (5) Anemia Qualifiers: Anemia type: due to chronic kidney disease Chronic kidney disease stage: stage 4 (severe) Qualified Code(s): N18.4 - Chronic kidney disease, stage 4 (severe); D63.1 - Anemia in chronic kidney disease Is this a current diagnosis for this admission?: Yes Plan: Hemoglobin continues to drop. Might need blood transfusion at one point. (6) Diabetes type 2, uncontrolled Qualifiers: Glycemic state: with hyperglycemia Qualified Code(s): E11.65 - Type 2 diabetes mellitus with hyperglycemia Is this a current diagnosis for this admission?: Yes Plan: Control is improving off insulin drip. (7) Urinary tract infection Is this a current diagnosis for this admission?: Yes Plan: Due to enterococcus faecalis. (8) Hypertension Is this a current diagnosis for this admission?: Yes Plan: Controlled and not on pressor. (9) Non-ST elevated myocardial infarction (non-STEMI) Is this a current diagnosis for this admission?: Yes (10) Chronically on opiate therapy Is this a current diagnosis for this admission?: Yes - Time Time with patient: 15-25 minutes
[2020-02-09] MEDS: LINEZOLID 600 MG/300 ML RTUPB IV SCH ×2 (10:50→21:10)
[2020-02-09] MEDS: INSULIN GLARGINE,HUM.REC.ANLOG 1,000 UNIT/10 ML VIAL SUBCUT SCH ×2 (12:22→21:10)
[2020-02-10] MEDS: ALBUTEROL SULFATE 0.083% NEB 2.5 MG/3 ML AMPUL NEB PRN (00:32)
[2020-02-10] MEDS: INSULIN REG, HUMAN 100 UNIT/ML 3 ML VIAL (PYX) SUBCUT SCH ×4 (00:36→18:02)
[2020-02-10] MEDS: ALBUTEROL SULFATE 0.083% NEB 2.5 MG/3 ML AMPUL NEB SCH ×4 (02:15→19:41)
[2020-02-10] MEDS: FENTANYL CITRATE/PF 600 MCG/60 ML BAG IV PRN ×3 (05:10→18:03)
[2020-02-10 06:03] LABS: ABSOLUTE EOSINOPHILS # (AUTO) 0.2 10^3/uL (0.0-0.6); ABSOLUTE LYMPHOCYTES (AUTO) 1.2 10^3/uL (0.5-4.7); ABSOLUTE MONOCYTES (AUTO) 0.8 10^3/uL (0.1-1.4); ABSOLUTE NEUT (AUTO) 17.3 10^3/uL (1.7-8.2); BASOPHILS % (AUTO) 0.3 % (0-2); HEMATOCRIT 22.1 % (37.9-51.0); LYMPHOCYTES % (AUTO) 6.3 % (13-45); MEAN CORPUSCULAR HEMOGLOBIN 28.6 pg (27.0-33.4); MEAN CORPUSCULAR HGB CONC 33.2 g/dL (32.0-36.0); MEAN CORPUSCULAR VOLUME 86 fl (80-97); PLATELET COUNT 283 10^3/uL (150-450); RED BLOOD COUNT 2.57 10^6/uL (4.35-5.55); RED CELL DISTRIBUTION WIDTH 15.1 % (11.5-14.0); SEGMENTED NEUTROPHILS % (AUTO) 88.4 % (42-78); TOTAL CELLS COUNTED % (AUTO) 100 %; WHITE BLOOD COUNT 19.6 10^3/uL (4.0-10.5)
[2020-02-10 06:04] LABS: HEMOGLOBIN 7.3 g/dL (13.5-17.0)
[2020-02-10] MEDS: DEXMEDETOMIDINE IN NS 400 MCG/100 ML RTUPB IV PRN ×2 (06:06→14:37)
[2020-02-10] MEDS: HEPARIN SODIUM,PORCINE/D5W 25,000 UNIT/250 ML RTUINJ IV PRN (06:07)
[2020-02-10 06:08] LABS: ANION GAP 6 (5-19); CALCIUM 8.1 mg/dL (8.4-10.2); CARBON DIOXIDE 28 mmol/L (22-30); CHLORIDE 109 mmol/L (98-107); GLUCOSE 164 mg/dL (75-110); POTASSIUM 3.9 mmol/L (3.6-5.0)
[2020-02-10] MEDS: RINGERS SOLUTION,LACTATED 1,000 ML IV PRN (06:08)
[2020-02-10 06:24] LABS: BLOOD UREA NITROGEN 115 mg/dL (7-20)
[2020-02-10] MEDS: BUDESONIDE NEB 0.25 MG/2 ML AMPUL NEB SCH ×2 (08:43→19:41)
--- NOTE | 2020-02-10 09:48 | PDOC CRITICAL CARE PROG REPORT ---
General Date:: 02/10/20 ICU Day:: 17 Hospital Day:: 17 Resuscitation Status: Full Code Events in the past 12 to 24 Hours:: He has again desaturated which was maintained to the point where his FiO2 is back to 50% Review of systems relevant to events:: Pulmonary. Reason for ICU Addmission:: Now intubated. - Medications: Medications reviewed and adjusted accordingly: Yes Vasopressors:: None Sedation:: Precedex Physical Exam Vital Signs: Temp Pulse Resp BP Pulse Ox 100.0 F 111 H 19 123/72 90 L 02/10/20 08:00 02/10/20 08:00 02/10/20 08:00 02/10/20 08:00 02/10/20 08:00 Intake & Output 02/09/20 02/10/20 02/11/20 06:59 06:59 06:59 Intake Total 1920 4054 Output Total 73200 1325 900 Balance -97014 2729 -900 Weight 70.6 kg 71.4 kg Weight/Height Weight 71.4 kg Height 5 ft 7 in General appearance: PRESENT: no acute distress, thin Head exam: PRESENT: atraumatic, normocephalic Eye exam: PRESENT: conjunctival injection Mouth exam: PRESENT: moist, tongue midline Respiratory exam: PRESENT: decreased breath sounds, rhonchi, unlabored Cardiovascular exam: PRESENT: RRR. ABSENT: diastolic murmur, rubs, systolic murmur GI/Abdominal exam: PRESENT: normal bowel sounds, soft. ABSENT: distended, guarding, mass, organolmegaly, rebound, tenderness Rectal exam: PRESENT: deferred Gentrourinary exam: PRESENT: indwelling catheter Extremities exam: PRESENT: full ROM. ABSENT: calf tenderness, clubbing, pedal edema Neurological exam: PRESENT: altered, CN II-XII grossly intact, other - Sedated. Skin exam: PRESENT: dry, intact, warm. ABSENT: cyanosis, rash Tubes/Lines: PRESENT: Endotracheal Tube, Central Line, Nasogastic Tube Laboratory/Radiographs Laboratory Results: 02/10/20 05:45 02/10/20 05:45 02/10/20 02/10/20 05:45 05:45 WBC 19.6 H RBC 2.57 L Hgb 7.3 L Hct 22.1 L MCV 86 MCH 28.6 MCHC 33.2 RDW 15.1 H Plt Count 283 Seg Neutrophils % 88.4 H Sodium 143.0 Potassium 3.9 Chloride 109 H Carbon Dioxide 28 Anion Gap 6 BUN 115 H Creatinine 3.76 H Est GFR ( Amer) 20 L Glucose 164 H Calcium 8.1 L 02/06/20 20:05 Varner Catheter Urine Culture - Final Enterococcus Faecalis(Group D) Yeast, Not Leah Albicans 01/24/20 01/24/20 01/24/20 00:03 00:03 04:20 Creatine Kinase 80 CK-MB (CK-2) 0.63 Troponin I 0.132 0.133 NT-Pro-B Natriuret Pep 39941 H 01/24/20 01/24/20 01/24/20 10:43 17:19 23:06 Creatine Kinase CK-MB (CK-2) Troponin I 0.114 0.079 0.075 NT-Pro-B Natriuret Pep 93134 H 01/30/20 01/31/20 02/01/20 03:45 05:39 06:14 Creatine Kinase CK-MB (CK-2) Troponin I NT-Pro-B Natriuret Pep 87643 H 77736 H 56988 H 02/02/20 04:24 Creatine Kinase CK-MB (CK-2) Troponin I NT-Pro-B Natriuret Pep 36239 H Impressions: Chest X-Ray 02/05/20 05:00 IMPRESSION: STABLE APPEARANCE OF THE CHEST. SUPPORT DEVICES UNCHANGED. All labs, radiographs, diagnostic studies and EKGs were personally reviewed: Yes In addition, reports of radiographic and diagnostic studies were read: Yes Assessment and Plan - Diagnosis (1) COVID-19 Is this a current diagnosis for this admission?: Yes Plan: Continue heparin and supportive respiratory care. (2) Acute CHF Qualifiers: Heart failure type: unspecified Qualified Code(s): I50.9 - Heart failure, unspecified Is this a current diagnosis for this admission?: Yes Plan: Does not seem to be active. (3) Acute hypoxemic respiratory failure Is this a current diagnosis for this admission?: Yes Plan: Even on 50% Fio2 his O2 saturations are only 90%. We will begin to wean back to 40 % but I doubt that he will be extubated today. (4) CKD stage 4 due to type 2 diabetes mellitus Is this a current diagnosis for this admission?: Yes Plan: Cr is better urine output is maintained aa good rate. GFR only 16. (5) Chronic pain Qualifiers: Chronic pain type: other chronic pain Qualified Code(s): G89.29 - Other chronic pain Is this a current diagnosis for this admission?: Yes Plan: Does not seem to be in pain (6) Diabetes mellitus type 2 in nonobese Is this a current diagnosis for this admission?: Yes Plan: Controlled Plan Summary: Keep intubated and wean down vent again. Critical Time Critical Time (minutes): 35 Level of Care: ICU Anticipated discharge: SNF Anticipated DC Timeframe: Other -: 1. The care of a critical patient is a dynamic process. This note is a sales representative jewelry synopsis but static in nature. The timeframe for treatments given in order is not necessarily the actual time these treatments may have been done. 2. This patient requires critical care secondary to ongoing requirements for therapy not offered or safe outside the critical care environment. Transfer to a lower level of care will result in altered life or limb morbidity and mortality. 3. Multidisciplinary rounds completed. 4. ABCDE bundle addressed.
[2020-02-10] MEDS: DEXAMETHASONE SOD PHOSPHATE INJ 4 MG/1 ML VIAL IV SCH ×2 (10:45→21:03)
[2020-02-10] MEDS: LINEZOLID 600 MG/300 ML RTUPB IV SCH ×2 (10:45→21:03)
[2020-02-10] MEDS: FAMOTIDINE INJ/PF 20 MG/2 ML SDV IV SCH (10:45)
[2020-02-10] MEDS: CEFEPIME 1 GM/D5W RTU 1 GM/50 ML RTUPB IV SCH ×2 (10:45→20:12)
[2020-02-10] MEDS: ACETAMINOPHEN SOLN 325 MG/10.15 ML UDCUP NG PRN (10:45)
[2020-02-10] MEDS: METOPROLOL TARTRATE 25 MG TABLET NG SCH ×2 (11:25→21:03)
[2020-02-10] MEDS: INSULIN GLARGINE,HUM.REC.ANLOG 1,000 UNIT/10 ML VIAL SUBCUT SCH ×2 (12:45→21:03)
[2020-02-11] MEDS: INSULIN REG, HUMAN 100 UNIT/ML 3 ML VIAL (PYX) SUBCUT SCH ×4 (00:01→18:19)
[2020-02-11] MEDS: DEXMEDETOMIDINE IN NS 400 MCG/100 ML RTUPB IV PRN ×3 (00:08→18:12)
[2020-02-11] MEDS: FENTANYL CITRATE/PF 600 MCG/60 ML BAG IV PRN ×3 (01:58→17:20)
[2020-02-11] MEDS: ALBUTEROL SULFATE 0.083% NEB 2.5 MG/3 ML AMPUL NEB SCH ×4 (03:24→19:39)
[2020-02-11] MEDS: HEPARIN SODIUM,PORCINE/D5W 25,000 UNIT/250 ML RTUINJ IV PRN ×2 (04:32→21:20)
[2020-02-11 06:23] LABS: ANION GAP 8 (5-19); BLOOD UREA NITROGEN 100 mg/dL (7-20); CALCIUM 8.2 mg/dL (8.4-10.2); CARBON DIOXIDE 25 mmol/L (22-30); CHLORIDE 108 mmol/L (98-107); GLUCOSE 117 mg/dL (75-110)
[2020-02-11 06:24] LABS: ABSOLUTE BASOPHILS # (AUTO) 0.1 10^3/uL (0.0-0.2); ABSOLUTE EOSINOPHILS # (AUTO) 0.3 10^3/uL (0.0-0.6); ABSOLUTE MONOCYTES (AUTO) 0.6 10^3/uL (0.1-1.4); ABSOLUTE NEUT (AUTO) 15.5 10^3/uL (1.7-8.2); BASOPHILS % (AUTO) 0.3 % (0-2); EOSINOPHILS % (AUTO) 1.5 % (0-6); HEMATOCRIT 20.7 % (37.9-51.0); LYMPHOCYTES % (AUTO) 5.8 % (13-45); MEAN CORPUSCULAR HEMOGLOBIN 28.5 pg (27.0-33.4); MEAN CORPUSCULAR HGB CONC 32.8 g/dL (32.0-36.0); MEAN CORPUSCULAR VOLUME 87 fl (80-97); MONOCYTES % (AUTO) 3.7 % (3-13); PLATELET COUNT 291 10^3/uL (150-450); RED BLOOD COUNT 2.38 10^6/uL (4.35-5.55); RED CELL DISTRIBUTION WIDTH 14.9 % (11.5-14.0); SEGMENTED NEUTROPHILS % (AUTO) 88.7 % (42-78); TOTAL CELLS COUNTED % (AUTO) 100 %; WHITE BLOOD COUNT 17.4 10^3/uL (4.0-10.5)
[2020-02-11 06:27] LABS: HEMOGLOBIN 6.8 g/dL (13.5-17.0)
--- NOTE | 2020-02-11 08:04 | PDOC CRITICAL CARE PROG REPORT ---
General Date:: 02/11/20 ICU Day:: 18 Ventilator Day:: 9 Hospital Day:: 18 Resuscitation Status: Full Code Events in the past 12 to 24 Hours:: Desaturation to mid 80s on higher FiO2. Review of systems relevant to events:: Pulmonary Reason for ICU Addmission:: Now intubated. - Medications: Medications reviewed and adjusted accordingly: Yes Vasopressors:: None Sedation:: Precedex Physical Exam Vital Signs: Temp Pulse Resp BP Pulse Ox 100.0 F 104 H 18 112/66 93 02/11/20 05:17 02/11/20 03:24 02/11/20 06:00 02/11/20 05:04 02/11/20 06:00 Intake & Output 02/10/20 02/11/20 02/12/20 06:59 06:59 06:59 Intake Total 4054 1981 Output Total 1325 2655 Balance 3699 -004 Weight 71.4 kg 70.8 kg Weight/Height Weight 70.8 kg Height 5 ft 7 in General appearance: PRESENT: no acute distress, thin Head exam: PRESENT: atraumatic, normocephalic Eye exam: PRESENT: conjunctiva pink, EOMI, PERRLA. ABSENT: scleral icterus Ear exam: PRESENT: normal external ear exam Mouth exam: PRESENT: moist, tongue midline Respiratory exam: PRESENT: crackles - Dry, rhonchi, unlabored Cardiovascular exam: PRESENT: RRR, tachycardia GI/Abdominal exam: PRESENT: normal bowel sounds, soft. ABSENT: distended, guarding, mass, organolmegaly, rebound, tenderness Rectal exam: PRESENT: deferred Gentrourinary exam: PRESENT: indwelling catheter Extremities exam: PRESENT: full ROM. ABSENT: calf tenderness, clubbing, pedal edema Neurological exam: PRESENT: altered, awake, CN II-XII grossly intact, other - He is awake but not following commands Skin exam: PRESENT: dry, intact, warm. ABSENT: cyanosis, rash Tubes/Lines: PRESENT: Endotracheal Tube, Central Line, Nasogastic Tube Laboratory/Radiographs Laboratory Results: 02/11/20 05:10 02/11/20 05:10 02/11/20 02/11/20 05:10 05:10 WBC 17.4 H RBC 2.38 L Hgb 6.8 L Hct 20.7 L MCV 87 MCH 28.5 MCHC 32.8 RDW 14.9 H Plt Count 291 Seg Neutrophils % 88.7 H Sodium 141.0 Potassium 4.0 Chloride 108 H Carbon Dioxide 25 Anion Gap 8 BUN 100 H Creatinine 3.78 H Est GFR ( Amer) 20 L Glucose 117 H Calcium 8.2 L 01/24/20 01/24/20 01/24/20 00:03 00:03 04:20 Creatine Kinase 80 CK-MB (CK-2) 0.63 Troponin I 0.132 0.133 NT-Pro-B Natriuret Pep 11291 H 01/24/20 01/24/20 01/24/20 10:43 17:19 23:06 Creatine Kinase CK-MB (CK-2) Troponin I 0.114 0.079 0.075 NT-Pro-B Natriuret Pep 83136 H 01/30/20 01/31/20 02/01/20 03:45 05:39 06:14 Creatine Kinase CK-MB (CK-2) Troponin I NT-Pro-B Natriuret Pep 59314 H 19626 H 01304 H 02/02/20 04:24 Creatine Kinase CK-MB (CK-2) Troponin I NT-Pro-B Natriuret Pep 69885 H Impressions: Chest X-Ray 02/05/20 05:00 IMPRESSION: STABLE APPEARANCE OF THE CHEST. SUPPORT DEVICES UNCHANGED. All labs, radiographs, diagnostic studies and EKGs were personally reviewed: Yes In addition, reports of radiographic and diagnostic studies were read: Yes Assessment and Plan - Diagnosis (1) COVID-19 Is this a current diagnosis for this admission?: Yes Plan: Still the limiting factor in extubation and ICU discharge. He was on 35% and ready for extubation. However overnight he needed FiO2 increased to 40% and even with that he is saturating around 85%. I do not feel comfortable extubating under these circumstances. (2) Acute CHF Qualifiers: Heart failure type: unspecified Qualified Code(s): I50.9 - Heart failure, unspecified Is this a current diagnosis for this admission?: Yes Plan: Resolved without lasix (3) Acute hypoxemic respiratory failure Is this a current diagnosis for this admission?: Yes Plan: See number 1. (4) CKD stage 4 due to type 2 diabetes mellitus Is this a current diagnosis for this admission?: Yes Plan: Cr and GFR about the same but U/O good. No hyperkalemia or acidosis. (5) Chronic pain Qualifiers: Chronic pain type: other chronic pain Qualified Code(s): G89.29 - Other chronic pain Is this a current diagnosis for this admission?: Yes Plan: Time to decrease fentanyl (6) Diabetes mellitus type 2 in nonobese Is this a current diagnosis for this admission?: Yes Plan: Controlled. Plan Summary: Although we can use bipap or high flow after extubation, desaturation on higher FiO2 is not a safe idea today. Critical Time Critical Time (minutes): 35 Level of Care: ICU Anticipated discharge: SNF Anticipated DC Timeframe: Other -: 1. The care of a critical patient is a dynamic process. This note is a rental representative synopsis but static in nature. The timeframe for treatments given in order is not necessarily the actual time these treatments may have been done. 2. This patient requires critical care secondary to ongoing requirements for therapy not offered or safe outside the critical care environment. Transfer to a lower level of care will result in altered life or limb morbidity and mortality. 3. Multidisciplinary rounds completed. 4. ABCDE bundle addressed.
[2020-02-11] MEDS: RINGERS SOLUTION,LACTATED 1,000 ML IV PRN (08:14)
[2020-02-11] MEDS ORDERED: FUROSEMIDE INJ/PF 40 MG/4 ML SDV IV ONE (08:29)
--- NOTE | 2020-02-11 08:31 | Progress Note ---
Provider Note Provider Note: CXR shows infiltrates denser in both UL. May be element of volume overload. Will give 80mg lasix.
[2020-02-11] MEDS ORDERED: FUROSEMIDE INJ/PF 100 MG/10 ML SDV ONE (08:46)
--- NOTE | 2020-02-11 08:50 | RADIOLOGY REPORT (SQ) ---
EXAM DESCRIPTION: CHEST SINGLE VIEW IMAGES COMPLETED DATE/TIME: 02/11/2020 8:37 am REASON FOR STUDY: Desaturation again overnight. Difficult to extubat COMPARISON: 02/05/2020 FINDINGS: One-view chest AP portable upright. Stable lines and tubes which look grossly appropriate. Including endotracheal, nasogastric tubes and right IJ line. Worsening lung disease noted today. There are diffuse bilateral airspace infiltrates. Distribution is similar. Opacities are more confl uent in the upper lung barnett compared to prior however. No pneumothorax. No large pleural effusion detected. TECHNICAL DOCUMENTATION: JOB ID: [id number] Reading location - IP/workstation name: [email or web address]
[2020-02-11] MEDS: BUDESONIDE NEB 0.25 MG/2 ML AMPUL NEB SCH ×2 (09:08→19:39)
[2020-02-11] MEDS: DEXAMETHASONE SOD PHOSPHATE INJ 4 MG/1 ML VIAL IV SCH ×2 (09:10→21:13)
[2020-02-11] MEDS: METOPROLOL TARTRATE 25 MG TABLET NG SCH ×2 (09:10→21:14)
[2020-02-11] MEDS: FAMOTIDINE INJ/PF 20 MG/2 ML SDV IV SCH (09:10)
[2020-02-11] MEDS: POLYETHYLENE GLYCOL 3350 POWDER 17 GM/1 PACKET NG PRN (09:10)
[2020-02-11] MEDS: INSULIN GLARGINE,HUM.REC.ANLOG 1,000 UNIT/10 ML VIAL SUBCUT SCH ×2 (09:11→21:13)
[2020-02-11] MEDS: CEFEPIME 1 GM/D5W RTU 1 GM/50 ML RTUPB IV SCH ×2 (09:37→21:13)
[2020-02-11] MEDS: LINEZOLID 600 MG/300 ML RTUPB IV SCH ×2 (09:37→21:15)
[2020-02-11] MEDS: FERROUS SULFATE LIQUID 300 MG/5 ML UDC PO SCH ×2 (09:39→18:10)
[2020-02-11] MEDS: ACETAMINOPHEN SOLN 325 MG/10.15 ML UDCUP NG PRN (18:09)
[2020-02-11] MEDS: EPOETIN ALFA-EPBX 10,000 UNIT/ML VIAL (RENAL) IV SCH (18:21)
[2020-02-12] MEDS: ALBUTEROL SULFATE 0.083% NEB 2.5 MG/3 ML AMPUL NEB SCH ×2 (01:54→08:02)
[2020-02-12] MEDS: RINGERS SOLUTION,LACTATED 1,000 ML IV PRN (04:07)
[2020-02-12] MEDS: FENTANYL CITRATE/PF 600 MCG/60 ML BAG IV PRN (04:55)
[2020-02-12 06:25] LABS: ANION GAP 10 (5-19); BLOOD UREA NITROGEN 103 mg/dL (7-20); CALCIUM 8.2 mg/dL (8.4-10.2); CARBON DIOXIDE 22 mmol/L (22-30); CHLORIDE 108 mmol/L (98-107); GLUCOSE 130 mg/dL (75-110); POTASSIUM 3.9 mmol/L (3.6-5.0)
[2020-02-12] MEDS: INSULIN REG, HUMAN 100 UNIT/ML 3 ML VIAL (PYX) SUBCUT SCH ×4 (06:37→18:54)
[2020-02-12] MEDS: DEXMEDETOMIDINE IN NS 400 MCG/100 ML RTUPB IV PRN (06:46)
[2020-02-12 07:00] LABS: MEAN CORPUSCULAR HEMOGLOBIN 28.2 pg (27.0-33.4); MEAN CORPUSCULAR HGB CONC 32.4 g/dL (32.0-36.0); MEAN CORPUSCULAR VOLUME 87 fl (80-97); PLATELET COUNT 296 10^3/uL (150-450); RED CELL DISTRIBUTION WIDTH 15.2 % (11.5-14.0); WHITE BLOOD COUNT 17.1 10^3/uL (4.0-10.5)
[2020-02-12 07:08] LABS: HEMOGLOBIN 6.5 g/dL (13.5-17.0)
[2020-02-12] MEDS ORDERED: NORMAL SALINE 250 ML IV PRN ×2 (07:46)
[2020-02-12] MEDS: BUDESONIDE NEB 0.25 MG/2 ML AMPUL NEB SCH ×2 (08:02→19:48)
[2020-02-12 09:36] LABS: APPEARANCE,URINE SLIGHTLY-CLOUDY; BILIRUBIN,URINE NEGATIVE (NEGATIVE); COLOR,URINE YELLOW; GLUCOSE, URINE 50 mg/dL (NEGATIVE); KETONES,URINE NEGATIVE (NEGATIVE); LEUKOCYTE ESTERASE,URINE TRACE (NEGATIVE); NITRITE,URINE NEGATIVE (NEGATIVE); PROTEIN,URINE 100 mg/dL (NEGATIVE); URINE SPECIFIC GRAVITY 1.013; UROBILINOGEN,URINE NEGATIVE mg/dL (<2.0)
[2020-02-12] MEDS: DEXTROSE 50%-WATER 25 GM/50 ML DISP.SYRIN IV PRN (11:14)
[2020-02-12] MEDS: FUROSEMIDE INJ/PF 20 MG/2 ML SDV IV SCH ×2 (11:15→18:57)
[2020-02-12] MEDS: LINEZOLID 600 MG/300 ML RTUPB IV SCH ×2 (11:16→21:16)
[2020-02-12] MEDS: DEXAMETHASONE SOD PHOSPHATE INJ 4 MG/1 ML VIAL IV SCH ×2 (11:16→21:16)
[2020-02-12] MEDS: CEFEPIME 1 GM/D5W RTU 1 GM/50 ML RTUPB IV SCH ×2 (11:16→20:13)
[2020-02-12] MEDS: ATORVASTATIN CALCIUM 20 MG TABLET PO SCH (11:17)
[2020-02-12] MEDS: INSULIN GLARGINE,HUM.REC.ANLOG 1,000 UNIT/10 ML VIAL SUBCUT SCH (11:17)
[2020-02-12] MEDS: FERROUS SULFATE LIQUID 300 MG/5 ML UDC PO SCH ×2 (11:17→18:52)
[2020-02-12] MEDS: METOPROLOL TARTRATE 25 MG TABLET NG SCH ×2 (11:18→21:01)
[2020-02-12 11:19] LABS: ABSOLUTE RETICS # 0.051 10^6/uL (0.028-0.122); RETICULOCYTE COUNT (AUTO) 2.06 % (0.66-2.85)
--- NOTE | 2020-02-12 11:29 | PDOC CRITICAL CARE PROG REPORT ---
General Date:: 02/12/20 ICU Day:: 19 Ventilator Day:: 19 Hospital Day:: 19 Resuscitation Status: Full Code Medical Power of Marketing Team Lead: None Events in the past 12 to 24 Hours:: 02.12.2020: Patient required higher FiO2 in the last 24 hours and improved with diuresis. Unfortunately, he self extubated this morning before a chest x-ray could be taken. He was however on pressure-support and CPAP and tolerating this quite well. He had a positive result to the Lasix. We were immediately at bedside after the self extubation and placed him on high flow nasal cannula. He did not have a significant hypoxic event associated with this. Review of systems relevant to events:: 02.12.2020: Patient has had no stridor. On high flow nasal cannula he is maintaining oxygen saturation higher than 94%. He requires dexmedetomidine for mild agitation chemical ventilation. He does not have any significant complaints. Reason for ICU Addmission:: Now intubated. - Medications: Vasopressors:: None Sedation:: Dexmedetomidine Physical Exam Vital Signs: Temp Pulse Resp BP Pulse Ox 100.2 F 104 H 19 116/70 99 02/12/20 08:00 02/12/20 10:00 02/12/20 10:00 02/12/20 10:00 02/12/20 10:00 Intake & Output 02/11/20 02/12/20 02/13/20 06:59 06:59 06:59 Intake Total 2750 2504 Output Total 2655 2670 900 Balance 95 -166 -900 Weight 70.8 kg 72.9 kg Weight/Height Weight 72.9 kg Height 5 ft 7 in General appearance: PRESENT: no acute distress, cooperative, well-developed, well-nourished Exam: Nontoxic 60-year-old male no active distress. No audible stridor. Head exam: PRESENT: atraumatic, normocephalic Eye exam: PRESENT: EOMI, PERRLA. ABSENT: conjunctival injection, nystagmus, scleral icterus Mouth exam: PRESENT: moist, neck supple, tongue midline Neck exam: PRESENT: other - Central venous site clean dry and intact.. ABSENT: JVD, lymphadenopathy, thyromegaly, tracheal deviation Respiratory exam: PRESENT: unlabored, other - Lung sounds not auscultated second reid to the confines of PPE and poor auditory capability of disposable stethoscope. ABSENT: accessory muscle use, prolonged expiratory phas, retraction, tachypnea Cardiovascular exam: PRESENT: RRR, other - Heart sounds not auscultated secondary to the confines of PPE and poor auditory capability of disposable stethoscope. ABSENT: tachycardia Pulses: PRESENT: +1 pedal pulses bilateral Vascular exam: PRESENT: normal capillary refill. ABSENT: pallor GI/Abdominal exam: PRESENT: soft, other - Gastric sounds not auscultated secondary to the confines of PPE and poor auditory capability of disposable stethoscope. ABSENT: ascites, distended, firm, guarding, mass, organolmegaly, rigid, tenderness Rectal exam: PRESENT: deferred Gentrourinary exam: PRESENT: indwelling catheter Extremities exam: PRESENT: pedal edema, +2 edema. ABSENT: clubbing Musculoskeletal exam: ABSENT: deformity, dislocation Neurological exam: PRESENT: altered, other - No focal motor deficits. No l ocalizing signs Psychiatric exam: PRESENT: appropriate affect Skin exam: PRESENT: dry, intact, warm. ABSENT: cyanosis, pallor, petechiae, rash Tubes/Lines: PRESENT: Dialysis catheter, Nasogastic Tube, Other - Varner type urinary catheter. ABSENT: Endotracheal Tube Laboratory/Radiographs Laboratory Results: 02/12/20 05:45 02/12/20 05:45 02/12/20 02/12/20 02/12/20 05:45 05:45 09:09 WBC 17.1 H RBC 2.30 L Hgb 6.5 L Hct 20.0 L MCV 87 MCH 28.2 MCHC 32.4 RDW 15.2 H Plt Count 296 Sodium 139.5 Potassium 3.9 Chloride 108 H Carbon Dioxide 22 Anion Gap 10 BUN 103 H Creatinine 3.54 H Est GFR ( Amer) 21 L Glucose 130 H Calcium 8.2 L Urine Color YELLOW Urine Appearance SLIGHTLY-CLOUDY Urine pH 7.0 Ur Specific Jackson 1.013 Urine Protein 100 H Urine Glucose (UA) 50 H Urine Ketones NEGATIVE Urine Blood MODERATE H Urine Nitrite NEGATIVE Ur Leukocyte Esterase TRACE H Urine WBC (Auto) 2 Urine RBC (Auto) 5 Blood Type Antibody Screen 02/12/20 09:17 WBC RBC Hgb Hct MCV MCH MCHC RDW Plt Count Sodium Potassium Chloride Carbon Dioxide Anion Gap BUN Creatinine Est GFR ( Amer) Glucose Calcium Urine Color Urine Appearance Urine pH Ur Specific Jackson Urine Protein Urine Glucose (UA) Urine Ketones Urine Blood Urine Nitrite Ur Leukocyte Esterase Urine WBC (Auto) Urine RBC (Auto) Blood Type A POSITIVE Antibody Screen NEGATIVE 02/06/20 09:39 Blood Blood Culture - Final NO GROWTH IN 5 DAYS 02/06/20 09:52 Blood Blood Culture - Final NO GROWTH IN 5 DAYS 01/24/20 01/24/20 01/24/20 00:03 00:03 04:20 Creatine Kinase 80 CK-MB (CK-2) 0.63 Troponin I 0.132 0.133 NT-Pro-B Natriuret Pep 01378 H 01/24/20 01/24/20 01/24/20 10:43 17:19 23:06 Creatine Kinase CK-MB (CK-2) Troponin I 0.114 0.079 0.075 NT-Pro-B Natriuret Pep 74629 H 01/30/20 01/31/20 02/01/20 03:45 05:39 06:14 Creatine Kinase CK-MB (CK-2) Troponin I NT-Pro-B Natriuret Pep 49473 H 84594 H 70177 H 02/02/20 04:24 Creatine Kinase CK-MB (CK-2) Troponin I NT-Pro-B Natriuret Pep 64356 H All labs, radiographs, diagnostic studies and EKGs were personally reviewed: Yes In addition, reports of radiographic and diagnostic studies were read: Yes Assessment and Plan - Diagnosis (1) Acute respiratory failure due to severe acute respiratory syndrome coronavirus 2 (SARS-CoV-2) infection Is this a current diagnosis for this admission?: Yes (2) Severe sepsis without septic shock Is this a current diagnosis for this admission?: Yes Plan: Resolved (3) Acute respiratory failure with hypoxia and hypercapnia Is this a current diagnosis for this admission?: Yes (4) Acute metabolic encephalopathy Is this a current diagnosis for this admission?: Yes (5) [id number] kidney injury Qualifiers: Acute renal failure type: with acute tubular necrosis Chronic kidney disease stage: stage 4 (severe) Qualified Code(s): N17.0 - Acute kidney failure with tubular necrosis; N18.4 - Chronic kidney disease, stage 4 (severe) Is this a current diagnosis for this admission?: Yes (6) Acute worsening of stage 4 chronic kidney disease Is this a current diagnosis for this admission?: Yes (7) Pneumonia due to COVID-19 virus Is this a current diagnosis for this admission?: Yes (8) COVID-19 Is this a current diagnosis for this admission?: Yes (9) CKD stage 4 due to type 2 diabetes mellitus Is this a current diagnosis for this admission?: Yes (10) Chronic pain Qualifiers: Chronic pain type: other chronic pain Qualified Code(s): G89.29 - Other chronic pain Is this a current diagnosis for this admission?: Yes (11) Chronically on opiate therapy Is this a current diagnosis for this admission?: Yes Plan Summary: 02.12.2020: Respiratory: Patient has significant hypoxemia which is improved. His chest x- ray appeared worse yesterday but given his transition to pressure support and reduction in FiO2 in conjunction with stabilization after self extubation, it would appear that clinically he is improving. We will continue diuresis today and discontinue all excess IV fluids. Given the fact that he does have COVID and they do have a prolonged alveolar process have increased his Decadron to twice a day at 4 mg. Standard doses for COVID are now at 6 to 8 mg and will continue this. This will also assure that the patient does not develop any adrenal insufficiency. We will continue to provide supportive care with high flow to prevent any atelectasis which will occur with discontinuation of positive pressure ventilation. Will need to monitor closely for recrudescence. Infectious: Patient has been on prolonged antibiotics and will discontinue in the next 24 hours. Given his chest x-ray findings yesterday will reevaluate chest x-ray and determine if antibiotics are needed. Unfortunately procalc itonin does not return in a timely fashion and would be unhelpful with the decision-making process. Cardiac: Patient's previous echocardiogram did not show a reduction in EF. This echocardiogram was done in December 2019 which did show an ejection fraction of 55 to 60%. There was pseudonormalization of left ventricular relaxation with a grade 2 diastolic dysfunction noted. Will continue diuresis. Hematologic: Patient has anemia. He has been started on hematopoietic stimulating agent and iron. I have ordered an iron profile. His MCV is not low to suggest iron deficiency anemia. We will continue to monitor. His hemoglobin has dropped to below 7 and will transfuse today. Endocrine: We will continue to monitor glucose with Decadron therapy. Renal: Patient has acute on chronic renal failure. His creatinine has improved with diuresis. We will continue to monitor with continued diuretic therapy. Discontinue IV fluids. He does have generalized anasarca which is reflective of his previous septic state, critical illness and renal dysfunction Metabolic: Continue to monitor and treat electrolyte abnormalities. Currently does not require dialysis and will remove the dialysis catheter today after the heparin has been held for 90 minutes. Alimentary: No active gastrointestinal issues. Will need to evaluate his ability to swallow for nutritional support. Neurologic: Patient does have critical illness related acute metabolic encephalopathy. Will wean Precedex. Sedation/analgesia: Discontinue fentanyl after extubation. Watch for narcotic withdrawal. Continue with dexmedetomidine and as needed analgesia and anxiolytics of the non-benzodiazepine form Lines/Tubes: Dialysis catheter has been in since February 01, 2020. We will removed today Other/family: Patient does not have a medical power of civil rights attorney and no emergency contacts are listed. When he is able and stable we will try to determine medical power of civil rights attorney for any decisions that it may be required. Will d iscuss with case management on the best way to obtain this. Critical Time Critical Time (minutes): 70 Level of Care: ICU Anticipated discharge: Acute Rehab Anticipated DC Timeframe: within 48 hours -: 1. The care of a critical patient is a dynamic process. This note is a inventory representative synopsis but static in nature. The timeframe for treatments given in order is not necessarily the actual time these treatments may have been done. 2. This patient requires critical care secondary to ongoing requirements for therapy not offered or safe outside the critical care environment. Transfer to a lower level of care will result in altered life or limb morbidity and mortality. 3. Multidisciplinary rounds completed. 4. ABCDE bundle addressed.
[2020-02-12 11:36] LABS: IRON(TIBC) 21.5 ug/dL (49-181)
[2020-02-12] MEDS: EPOETIN ALFA-EPBX 10,000 UNIT/ML VIAL (RENAL) IV SCH (12:16)
[2020-02-12 12:45] LABS: FOLATE 8.06 ng/mL (>2.76)
[2020-02-12] MEDS: DEXMEDETOMIDINE IN 0.9 % NACL 400 MCG/100 ML RTUPB IV PRN (16:08)
[2020-02-12] MEDS: ASPIRIN 81 MG TABLET, CHEWABLE PO SCH (21:01)
[2020-02-12 22:43] LABS: MEAN CORPUSCULAR HEMOGLOBIN 29.1 pg (27.0-33.4); MEAN CORPUSCULAR HGB CONC 33.3 g/dL (32.0-36.0); MEAN CORPUSCULAR VOLUME 87 fl (80-97); PLATELET COUNT 292 10^3/uL (150-450); RED BLOOD COUNT 3.32 10^6/uL (4.35-5.55); RED CELL DISTRIBUTION WIDTH 14.9 % (11.5-14.0); WHITE BLOOD COUNT 16.4 10^3/uL (4.0-10.5)
[2020-02-12 22:48] LABS: HEMOGLOBIN 9.7 g/dL (13.5-17.0)
[2020-02-13] MEDS: INSULIN REG, HUMAN 100 UNIT/ML 3 ML VIAL (PYX) SUBCUT SCH ×4 (00:28→17:12)
[2020-02-13] MEDS: FUROSEMIDE INJ/PF 20 MG/2 ML SDV IV SCH ×3 (02:34→18:17)
[2020-02-13 06:24] LABS: ANION GAP 9 (5-19); BLOOD UREA NITROGEN 102 mg/dL (7-20); CALCIUM 9.2 mg/dL (8.4-10.2); CARBON DIOXIDE 23 mmol/L (22-30); CHLORIDE 110 mmol/L (98-107); GLUCOSE 110 mg/dL (75-110); POTASSIUM 4.5 mmol/L (3.6-5.0)
[2020-02-13 07:54] LABS: HEMATOCRIT 33.7 % (37.9-51.0); HEMOGLOBIN 11.1 g/dL (13.5-17.0); MEAN CORPUSCULAR HEMOGLOBIN 28.5 pg (27.0-33.4); MEAN CORPUSCULAR HGB CONC 32.8 g/dL (32.0-36.0); MEAN CORPUSCULAR VOLUME 87 fl (80-97); PLATELET COUNT 316 10^3/uL (150-450); RED BLOOD COUNT 3.87 10^6/uL (4.35-5.55); RED CELL DISTRIBUTION WIDTH 15.4 % (11.5-14.0); WHITE BLOOD COUNT 15.6 10^3/uL (4.0-10.5)
[2020-02-13] MEDS: BUDESONIDE NEB 0.25 MG/2 ML AMPUL NEB SCH ×2 (08:18→20:30)
[2020-02-13] MEDS: ALBUTEROL SULFATE 0.083% NEB 2.5 MG/3 ML AMPUL NEB PRN (08:18)
[2020-02-13] MEDS: METOPROLOL TARTRATE 25 MG TABLET NG SCH ×2 (09:39→22:04)
[2020-02-13] MEDS: FERROUS SULFATE LIQUID 300 MG/5 ML UDC PO SCH ×2 (09:44→17:12)
[2020-02-13] MEDS: DEXAMETHASONE SOD PHOSPHATE INJ 4 MG/1 ML VIAL IV SCH ×2 (10:22→22:17)
[2020-02-13] MEDS: EPOETIN ALFA-EPBX 10,000 UNIT/ML VIAL (RENAL) IV SCH (10:23)
[2020-02-13] MEDS: FAMOTIDINE INJ/PF 20 MG/2 ML SDV IV SCH ×2 (10:24→22:17)
[2020-02-13] MEDS: DEXMEDETOMIDINE IN 0.9 % NACL 400 MCG/100 ML RTUPB IV PRN (10:37)
--- NOTE | 2020-02-13 11:32 | RADIOLOGY REPORT (SQ) ---
EXAM DESCRIPTION: CHEST SINGLE VIEW IMAGES COMPLETED DATE/TIME: 02/13/2020 11:17 am REASON FOR STUDY: ARDS with COVID 19 COMPARISON: 02/11/2020 NUMBER OF VIEWS: One view. TECHNIQUE: Single frontal radiographic image of the chest acquired. LIMITATIONS: None. FINDINGS: LUNGS AND PLEURA: Bilateral airspace disease with improved aeration left lower lobe. No p neumothorax. MEDIASTINUM AND HEART: Stable heart size and mediastinal structures. SUPPORT DEVICES: Interval removal of endotracheal tube, nasogastric tube, right-sided central line. BONY STRUCTURES: No acute findings. HARDWARE: None. OTHER: No other significant finding. IMPRESSION: Slight improvement status post extubation. Reading location - IP/workstation name: [email or web address]
--- NOTE | 2020-02-13 18:29 | PDOC CRITICAL CARE PROG REPORT ---
General Date:: 02/13/20 ICU Day:: Hospital Day:: Resuscitation Status: Full Code Medical Power of Glass Silverer: None Events in the past 12 to 24 Hours:: 02.13.2020: Patient has remained extubated after self extubation yesterday. He has had no episodes of stridor or hypoxia. He did require increasing FiO2 on high flow however some of this hypoxia appears to been related to agitation and he has been maintained on Precedex. No significant hemodynamic disturbances have occurred since extubation 02.12.2020: Patient required higher FiO2 in the last 24 hours and improved with diuresis. Unfortunately, he self extubated this morning before a chest x-ray could be taken. He was however on pressure-support and CPAP and tolerating this quite well. He had a positive result to the Lasix. We were immediately at bedside after the self extubation and placed him on high flow nasal cannula. He did not have a significant hypoxic event associated with this. Review of systems relevant to events:: 02.13.2020: Chest x-ray shows improvement compared to previous. Decadron was increased yesterday. He has had no significant bradycardia on Precedex. Temporary dialysis catheter was removed. Creatinine is slightly increased compared to yesterday and diuresis has been discontinued. 02.12.2020: Patient has had no stridor. On high flow nasal cannula he is maintaining oxygen saturation higher than 94%. He requires dexmedetomidine for mild agitation chemical ventilation. He does not have any significant complaints. Reason for ICU Addmission:: Now intubated. - Medications: Medications reviewed and adjusted accordingly: Yes Vasopressors:: None Sedation:: Dexmedetomidine Physical Exam Vital Signs: Temp Pulse Resp BP Pulse Ox 97.7 F 100 20 111/99 H 97 02/13/20 08:00 02/13/20 16:00 02/13/20 17:30 02/13/20 16:00 02/13/20 17:30 Intake & Output 02/12/20 02/13/20 02/14/20 06:59 06:59 06:59 Intake Total 2504 1533 32 Output Total 0965 4520 9953 Balance -744 -9561 -8985 Weight 72.9 kg 71.2 kg Weight/Height Weight 71.2 kg Height 5 ft 7 in General appearance: PRESENT: no acute distress, cooperative, well-developed, well-nourished Exam: Not intubated, nontoxic 60-year-old male no acute distress Head exam: PRESENT: atraumatic Eye exam: PRESENT: conjunctiva pink, PERRLA. ABSENT: conjunctival injection, nystagmus, scleral icterus Mouth exam: PRESENT: dry mucosa, neck supple Teeth exam: PRESENT: poor dentation Neck exam: PRESENT: other - Right internal jugular central venous dialysis site clean dry and intact without hematoma or swelling. ABSENT: JVD, lymphadenopat hy, tenderness, thyromegaly, tracheal deviation, tracheostomy Respiratory exam: PRESENT: unlabored, other - Lung sounds not auscultated secondary to the confines of PPE and poor auditory capability of disposable stethoscope. ABSENT: accessory muscle use, tachypnea Cardiovascular exam: PRESENT: RRR, +S1, +S2, other - Heart sounds not auscultated secondary to the confines of PPE and poor auditory capability of disposable stethoscope. ABSENT: tachycardia Pulses: PRESENT: +1 pedal pulses bilateral Vascular exam: PRESENT: normal capillary refill. ABSENT: pallor GI/Abdominal exam: PRESENT: soft, other - Gastric sounds not auscultated secondary to the confines of PPE and poor auditory capability of disposable stethoscope. ABSENT: ascites, distended, firm, guarding, organolmegaly, rigid, tenderness Rectal exam: PRESENT: deferred Gentrourinary exam: PRESENT: indwelling catheter Extremities exam: ABSENT: pedal edema Musculoskeletal exam: PRESENT: normal inspection. ABSENT: deformity, dislocation, tenderness Neurological exam: PRESENT: altered, other - Patient responds to voice and intermittently follows commands. Psychiatric exam: PRESENT: flat affect Focused psych exam: ABSENT: pressured speech, psychomotor agitation, restlessness Skin exam: PRESENT: dry, intact, warm. ABSENT: cyanosis, pallor, petechiae, rash Tubes/Lines: PRESENT: Other - Varner catheter. ABSENT: Endotracheal Tube, Central Line, Dialysis catheter Laboratory/Radiographs Laboratory Results: 02/13/20 05:48 02/13/20 05:48 02/12/20 02/13/20 02/13/20 21:50 04:10 05:48 WBC 16.4 H RBC 3.32 L Hgb 9.7 L D Hct 29.0 L MCV 87 MCH 29.1 MCHC 33.3 RDW 14.9 H Plt Count 292 Sodium Cancelled 142.2 Potassium Cancelled 4.5 Chloride Cancelled 110 H Carbon Dioxide Cancelled 23 Anion Gap Cancelled 9 BUN Cancelled 102 H Creatinine Cancelled 3.99 H Est GFR ( Amer) Cancelled 19 L Est GFR (Non-Af Amer) Cancelled Glucose Cancelled 110 Calcium Cancelled 9.2 02/13/20 05:48 WBC 15.6 H RBC 3.87 L Hgb 11.1 L Hct 33.7 L MCV 87 MCH 28.5 MCHC 32.8 RDW 15.4 H Plt Count 316 Sodium Potassium Chloride Carbon Dioxide Anion Gap BUN Creatinine Est GFR ( Amer) Est GFR (Non-Af Amer) Glucose Calcium 01/24/20 01/24/20 01/24/20 00:03 00:03 04:20 Creatine Kinase 80 CK-MB (CK-2) 0.63 Troponin I 0.132 0.133 NT-Pro-B Natriuret Pep 90290 H 01/24/20 01/24/20 01/24/20 10:43 17:19 23:06 Creatine Kinase CK-MB (CK-2) Troponin I 0.114 0.079 0.075 NT-Pro-B Natriuret Pep 91092 H 01/30/20 01/31/20 02/01/20 03:45 05:39 06:14 Creatine Kinase CK-MB (CK-2) Troponin I NT-Pro-B Natriuret Pep 86407 H 83000 H 89160 H 02/02/20 04:24 Creatine Kinase CK-MB (CK-2) Troponin I NT-Pro-B Natriuret Pep 34040 H Impressions: Chest X-Ray 02/13/20 00:00 IMPRESSION: Slight improvement status post extubation. All labs, radiographs, diagnostic studies and EKGs were personally reviewed: Yes In addition, reports of radiographic and diagnostic studies were read: Yes Assessment and Plan - Diagnosis (1) Acute respiratory failure due to severe acute respiratory syndrome coronavirus 2 (SARS-CoV-2) infection Is this a current diagnosis for this admission?: Yes (2) Severe sepsis without septic shock Is this a current diagnosis for this admission?: Yes (3) Acute respiratory failure with hypoxia and hypercapnia Is this a current diagnosis for this admission?: Yes (4) Acute metabolic encephalopathy Is this a current diagnosis for this admission?: Yes (5) [id number] kidney injury Qualifiers: Acute renal failure type: with acute tubular necrosis Chronic kidney disease stage: stage 4 (severe) Qualified Code(s): N17.0 - Acute kidney failure with tubular necrosis; N18.4 - Chronic kidney disease, stage 4 (severe) Is this a current diagnosis for this admission?: Yes (6) Acute worsening of stage 4 chronic kidney disease Is this a current diagnosis for this admission?: Yes (7) Pneumonia due to COVID-19 virus Is this a current diagnosis for this admission?: Yes (8) COVID-19 Is this a current diagnosis for this admission?: Yes (9) CKD stage 4 due to type 2 diabetes mellitus Is this a current diagnosis for this admission?: Yes (10) Chronic pain Qualifiers: Chronic pain type: other chronic pain Qualified Code(s): G89.29 - Other chronic pain Is this a current diagnosis for this admission?: Yes (11) Chronically on opiate therapy Is this a current diagnosis for this admission?: Yes Plan Summary: 2020: Respiratory: Patient's respiratory status is improving as his chest x-ray shows slight improvement.. Will need to be vigilant to watch for pneumonia. It is difficult to know whether the increase in steroids for diuresis has helped. May need to consider extended linezolid and a carbanapenem antibiotic if his x-ray does not improve. May also need to consider CT scan to evaluate pulmonary pa renchyma. May also need to consider other etiologies such as fungal and atypical infections as well as cryptogenic organizing pneumonia Infectious: Patient has SARSCOVID-19 and is at day 20. Typically at day 21 recheck for persistent COVID positivity. This will be necessary to check in order to get the patient to an LTAC type setting if he is accepted. Continue to monitor for pneumonia. Cardiac: No active issues continue to monitor Hematologic: Continue to monitor inflammatory parameters. Patient is on heparin because of COVID positivity and active pneumonitis. Awaiting iron profile to determine whether him out of poetic stimulating agents are needed. Given their propensity for thrombotic dysfunction I have discontinued him out of poetic stimulating agents. Endocrine: Continue to monitor glucose on Decadron therapy Renal: Creatinine has worsened and holding diuresis. Will adjust any medications based on GFR. Have reduced Neurontin because of reduced GFR Metabolic: Continue to monitor electrolytes and replace as needed Alimentary: Speech eval has been ordered. They are going to give the patient 1 more day before checking secondary to prolonged to patient status. We would also like to reduce dexmedetomidine prior to this. Neurologic: Patient has obvious physical deconditioning secondary to significant critical illness related to COVID-19. Therapy has been actively involved in applaud their efforts in light of a significant pandemic. Continue to reduce the dexmedetomidine. Should be noted that the patient has chronic low back pain will need to monitor for need for analgesia Sedation/analgesia: Weaning dexmedetomidine Lines/Tubes: Central access has been removed. Peripheral IVs are present Other/family: Patient has no medical power of employee welfare manager and await his neurological improvement to determine DNR status and other important decisions. 02.12.2020: Respiratory: Patient has significant hypoxemia which is improved. His chest x- ray appeared worse yesterday but given his transition to pressure support and reduction in FiO2 in conjunction with stabilization after self extubation, it would appear that clinically he is improving. We will continue diuresis today and discontinue all excess IV fluids. Given the fact that he does have COVID and they do have a prolonged alveolar process have increased his Decadron to twice a day at 4 mg. Standard doses for COVID are now at 6 to 8 mg and will continue this. This will also assure that the patient does not develop any adrenal insufficiency. We will continue to provide supportive care with high flow to prevent any atelectasis which will occur with discontinuation of positive pressure ventilation. Will need to monitor closely for recrudescence. Infectious: Patient has been on prolonged antibiotics and will discontinue in the next 24 hours. Given his chest x-ray findings yesterday will reevaluate chest x-ray and determine if antibiotics are needed. Unfortunately procalcitonin does not return in a timely fashion and would be unhelpful with the decision-making process. Cardiac: Patient's previous echocardiogram did not show a reduction in EF. This echocardiogram was done in December 2019 which did show an ejection fraction of 55 to 60%. There was pseudonormalization of left ventricular relaxation with a grade 2 diastolic dysfunction noted. Will continue diuresis. Hematologic: Patient has anemia. He has been started on hematopoietic st imulating agent and iron. I have ordered an iron profile. His MCV is not low to suggest iron deficiency anemia. We will continue to monitor. His hemoglobin has dropped to below 7 and will transfuse today. Endocrine: We will continue to monitor glucose with Decadron therapy. Renal: Patient has acute on chronic renal failure. His creatinine has improved with diuresis. We will continue to monitor with continued diuretic therapy. Discontinue IV fluids. He does have generalized anasarca which is reflective of his previous septic state, critical illness and renal dysfunction Metabolic: Continue to monitor and treat electrolyte abnormalities. Currently does not require dialysis and will remove the dialysis catheter today after the heparin has been held for 90 minutes. Alimentary: No active gastrointestinal issues. Will need to evaluate his ability to swallow for nutritional support. Neurologic: Patient does have critical illness related acute metabolic encephalopathy. Will wean Precedex. Sedation/analgesia: Discontinue fentanyl after extubation. Watch for narcotic withdrawal. Continue with dexmedetomidine and as needed analgesia and anxiolytics of the non-benzodiazepine form Lines/Tubes: Dialysis catheter has been in since February 01, 2020. We will removed today Other/family: Patient does not have a medical power of employee welfare manager and no emergency contacts are listed. When he is able and stable we will try to determine medical power of employee welfare manager for any decisions that it may be required. Will discuss with case management on the best way to obtain this. Critical Time Critical Time (minutes): 42 Level of Care: ICU Anticipated discharge: Acute Rehab Anticipated DC Timeframe: within 48 hours -: 1. The care of a critical patient is a dynamic process. This note is a quality assurance representative synopsis but static in nature. The timeframe for treatments given in order is not necessarily the actual time these treatments may have been done. 2. This patient requires critical care secondary to ongoing requirements for therapy not offered or safe outside the critical care environment. Transfer to a lower level of care will result in altered life or limb morbidity and mortality. 3. Multidisciplinary rounds completed. 4. ABCDE bundle addressed.
[2020-02-13] MEDS: HEPARIN SODIUM,PORCINE/D5W 25,000 UNIT/250 ML RTUINJ IV PRN (19:00)
[2020-02-13] MEDS: ASPIRIN 81 MG TABLET, CHEWABLE PO SCH (22:04)
[2020-02-13] MEDS: ATORVASTATIN CALCIUM 20 MG TABLET PO SCH (22:04)
[2020-02-14] MEDS: INSULIN REG, HUMAN 100 UNIT/ML 3 ML VIAL (PYX) SUBCUT SCH ×4 (00:05→18:41)
[2020-02-14 04:54] LABS: HEMATOCRIT 30.6 % (37.9-51.0); HEMOGLOBIN 10.2 g/dL (13.5-17.0); MEAN CORPUSCULAR HEMOGLOBIN 28.9 pg (27.0-33.4); MEAN CORPUSCULAR HGB CONC 33.2 g/dL (32.0-36.0); MEAN CORPUSCULAR VOLUME 87 fl (80-97); PLATELET COUNT 291 10^3/uL (150-450); RED BLOOD COUNT 3.52 10^6/uL (4.35-5.55); RED CELL DISTRIBUTION WIDTH 15.1 % (11.5-14.0); WHITE BLOOD COUNT 14.9 10^3/uL (4.0-10.5)
[2020-02-14 04:57] LABS: INTERNATIONAL RATION (INR) 1.23; PROTHROMBIN TIME 15.6 SEC (11.4-15.4)
[2020-02-14 04:59] LABS: PARTIAL THROMBOPLASTIN TIME 83.1 SEC (23.5-35.8)
[2020-02-14 05:00] LABS: D-DIMER 1.28 ug/mL (0.00-0.50)
[2020-02-14 05:19] LABS: ABSOLUTE LYMPHOCYTES# (MANUAL) 1.2 10^3/uL (0.5-4.7); ABSOLUTE MONOCYTES # (MANUAL) 0.1 10^3/uL (0.1-1.4); BASOPHILS % (MANUAL) 0 % (0-2); EOSINOPHILS % (MANUAL) 0 % (0-6); LYMPHOCYTES % (MANUAL) 8 % (13-45); MONOCYTES % (MANUAL) 1 % (3-13); SEGMENTED NEUTROPHILS % (MAN) 91 % (42-78); TOTAL CELLS COUNTED 100
[2020-02-14 05:20] LABS: ANISOCYTOSIS SLIGHT; OVALOCYTES SLIGHT; POIKILOCYTOSIS SLIGHT; TOXIC GRANULATION SLIGHT
[2020-02-14 05:21] LABS: PLATELET COMMENT ADEQUATE
[2020-02-14 06:00] LABS: ANION GAP 13 (5-19); BLOOD UREA NITROGEN 108 mg/dL (7-20); C-REACTIVE PROTEIN 48.3 mg/L (<10.0); CALCIUM 8.7 mg/dL (8.4-10.2); CARBON DIOXIDE 18 mmol/L (22-30); CHLORIDE 113 mmol/L (98-107); GLUCOSE 103 mg/dL (75-110); PHOSPHORUS 7.6 mg/dL (2.5-4.5); POTASSIUM 4.5 mmol/L (3.6-5.0)
[2020-02-14] MEDS ORDERED: PANTOPRAZOLE SODIUM 80 MG in NORMAL SALINE 100 ML IV ONE (06:03)
[2020-02-14] MEDS ORDERED: PANTOPRAZOLE SODIUM 40 MG VIAL IV ONE (06:41)
[2020-02-14 07:32] LABS: ARTERIAL BLOOD H2CO3 0.83 mmol/L (1.05-1.35); ARTERIAL BLOOD HCO3 18.2 mmol/L (20-24); ARTERIAL BLOOD PCO2 27.5 mmHg (35-45); ARTERIAL BLOOD PH 7.44 (7.35-7.45); ARTERIAL BLOOD PO2 70.5 mmHg (80-100)
[2020-02-14 07:34] LABS: ARTERIAL BLOOD FIO2 40%
[2020-02-14] MEDS: NORMAL SALINE 100 ML with PANTOPRAZOLE SODIUM 80 MG IV PRN ×4 (07:39→17:18)
[2020-02-14] MEDS: BUDESONIDE NEB 0.25 MG/2 ML AMPUL NEB SCH ×2 (07:56→20:33)
[2020-02-14] MEDS: DEXAMETHASONE SOD PHOSPHATE INJ 4 MG/1 ML VIAL IV SCH ×2 (10:18→22:45)
[2020-02-14] MEDS: METOPROLOL TARTRATE 25 MG TABLET NG SCH ×2 (10:18→22:45)
[2020-02-14] MEDS: DEXMEDETOMIDINE IN 0.9 % NACL 400 MCG/100 ML RTUPB IV PRN ×2 (10:19→17:19)
--- NOTE | 2020-02-14 13:53 | RADIOLOGY REPORT (SQ) ---
EXAM DESCRIPTION: CHEST SINGLE VIEW IMAGES COMPLETED DATE/TIME: 02/14/2020 6:34 am REASON FOR STUDY: pneumonia COMPARISON: 02/13/2020 EXAM PARAMETERS: NUMBER OF VIEWS: One view. TECHNIQUE: Single frontal radiographic view of the chest acquired. RADIATION DOSE: NA LIMITATIONS: None. FINDINGS: LUNGS AND PLEURA: Mildly improved extensive bilateral airspace disease greatest within the bilateral upper lungs. No significant effusion. No pneumothorax. MEDIASTINUM AND HILAR STRUCTURES: Stable bilateral perihilar opacities. HEART AND VASCULAR STRUCTURES: Enlarged, stable. BONES: No acute findings. Partially visualized cervical fusion hardware. HARDWARE: As above. OTHER: No other significant finding. IMPRESSION: Persistent but improved bilateral airspace disease greatest within the upper lungs. Stable enlarged cardiac silhouette. TECHNICAL DOCUMENTATION: JOB ID: [id number] 2010 [employer]- All Rights Reserved Reading location - IP/workstation name: [email or web address]
[2020-02-14 17:07] LABS: HEMATOCRIT 29.5 % (37.9-51.0); HEMOGLOBIN 9.5 g/dL (13.5-17.0); MEAN CORPUSCULAR HEMOGLOBIN 28.5 pg (27.0-33.4); MEAN CORPUSCULAR HGB CONC 32.3 g/dL (32.0-36.0); MEAN CORPUSCULAR VOLUME 88 fl (80-97); PLATELET COUNT 272 10^3/uL (150-450); RED BLOOD COUNT 3.33 10^6/uL (4.35-5.55); RED CELL DISTRIBUTION WIDTH 15.1 % (11.5-14.0); WHITE BLOOD COUNT 13.1 10^3/uL (4.0-10.5)
--- NOTE | 2020-02-14 17:22 | RADIOLOGY REPORT (SQ) ---
EXAM DESCRIPTION: CHEST SINGLE VIEW IMAGES COMPLETED DATE/TIME: 02/14/2020 4:38 pm REASON FOR STUDY: NGT placement COMPARISON: 02/14/2020 EXAM PARAMETERS: NUMBER OF VIEWS: One view. TECHNIQUE: Single frontal radiographic view of the chest acquired. RADIATION DOSE: NA LIMITATIONS: None. FINDINGS: LUNGS AND PLEURA: Airspace disease in the upper lungs. MEDIASTINUM AND HILAR STRUCTURES: No masses. Contour normal. HEART AND VASCULAR STRUCTURES: Heart normal in size. Normal vasculature. BONES: No acute findings. HARDWARE: An NG tube has been placed. The tube extends 10 cm into the stomach. OTHER: No other significant finding. IMPRESSION: NG tube placement. Persistent upper lobe airspace disease. TECHNICAL DOCUMENTATION: JOB ID: [id number] 2010 [employer]- All Rights Reserved Reading location - IP/workstation name: [email or web address]
[2020-02-14 17:35] LABS: ABSOLUTE LYMPHOCYTES# (MANUAL) 0.8 10^3/uL (0.5-4.7); BASOPHILS % (MANUAL) 0 % (0-2); EOSINOPHILS % (MANUAL) 0 % (0-6); LYMPHOCYTES % (MANUAL) 6 % (13-45); MONOCYTES % (MANUAL) 0 % (3-13); SEGMENTED NEUTROPHILS % (MAN) 94 % (42-78); TOTAL CELLS COUNTED 100
[2020-02-14 17:36] LABS: ANISOCYTOSIS SLIGHT; PLATELET COMMENT ADEQUATE; TOXIC GRANULATION SLIGHT; TOXIC VACUOLATION PRESENT
--- NOTE | 2020-02-14 19:07 | PDOC CRITICAL CARE PROG REPORT ---
General Date:: 02/14/20 Resuscitation Status: Full Code Medical Power of Joiners Supervisor: None Events in the past 12 to 24 Hours:: 02.14.2020: Patient's neurological status has improved although he is still somewhat lethargic. Precedex is being weaned. He did manage to pull out his NG tube and it was being replaced today. Of significance, patient had maroon stool but did not have a significant decrease in his hemoglobin/EF resolved. He did require transfusion the day of self extubation but had no evidence for bleeding. Heparin drip was stopped he was started on Protonix. 02.13.2020: Patient has remained extubated after self extubation yesterday. He has had no episodes of stridor or hypoxia. He did require increasing FiO2 on high flow however some of this hypoxia appears to been related to agitation and he has been maintained on Precedex. No significant hemodynamic disturbances have occurred since extubation 02.12.2020: Patient required higher FiO2 in the last 24 hours and improved with diuresis. Unfortunately, he self extubated this morning before a chest x-ray could be taken. He was however on pressure-support and CPAP and tolerating this quite well. He had a positive result to the Lasix. We were immediately at bedside af ter the self extubation and placed him on high flow nasal cannula. He did not have a significant hypoxic event associated with this. Review of systems relevant to events:: 02.14.2020: Both chest x-ray and creatinine have suddenly improved today. Patient denies any chest pain. He is slightly more awake today but continues to be lethargic and answers and only 1 or 2 word statements 02.13.2020: Chest x-ray shows improvement compared to previous. Decadron was increased yesterday. He has had no significant bradycardia on Precedex. Temporary dialysis catheter was removed. Creatinine is slightly increased compared to yesterday and diuresis has been discontinued. 02.12.2020: Patient has had no stridor. On high flow nasal cannula he is main taining oxygen saturation higher than 94%. He requires dexmedetomidine for mild agitation chemical ventilation. He does not have any significant complaints. Reason for ICU Addmission:: Now intubated. - Medications: Medications reviewed and adjusted accordingly: Yes Vasopressors:: None Sedation:: Dexmedetomidine Physical Exam Vital Signs: Temp Pulse Resp BP Pulse Ox 98.2 F 100 24 H 138/84 H 91 L 02/14/20 16:00 02/14/20 16:00 02/14/20 16:00 02/14/20 16:00 02/14/20 16:00 Intake & Output 02/13/20 02/14/20 02/15/20 06:59 06:59 06:59 Intake Total 1783 196 194 Output Total 2760 3470 450 Balance -977 -3274 -256 Weight 71.2 kg 71.3 kg Weight/Height Weight 71.3 kg Height 5 ft 7 in General appearance: PRESENT: no acute distress, disheveled Exam: Ill-appearing nontoxic 60-year-old male no active distress. He is awake but lethargic and not oriented to time. He is oriented to place today. Eye exam: PRESENT: EOMI, PERRLA. ABSENT: conjunctival injection, nystagmus, scleral icterus Mouth exam: PRESENT: moist, neck supple Neck exam: ABSENT: JVD, lymphadenopathy, tenderness, thyromegaly, tracheal deviation Respiratory exam: PRESENT: unlabored, other - Lung sounds not auscultated secondary to the confines of PPE and poor auditory capability of disposable stethoscope. ABSENT: accessory muscle use, prolonged expiratory phas, tachypnea Cardiovascular exam: PRESENT: RRR, +S1, +S2, other - Heart sounds not auscultated secondary to the confines of PPE and poor auditory capability of disposable stethoscope. ABSENT: tachycardia Pulses: PRESENT: +1 pedal pulses bilateral Vascular exam: PRESENT: normal capillary refill. ABSENT: pallor GI/Abdominal exam: PRESENT: other - Gastric sounds not auscultated secondary to the confines of PPE and poor auditory capability of disposable stethoscope. ABSENT: ascites, distended, firm, guarding, mass, organolmegaly, soft, tenderness Rectal exam: PRESENT: bloody stool - Seen during examination but no bright red blood. ABSENT: black stool Gentrourinary exam: PRESENT: indwelling catheter Extremities exam: PRESENT: pedal edema, +1 edema Musculoskeletal exam: ABSENT: deformity, dislocation, tenderness Neurological exam: PRESENT: awake, oriented to person, oriented to place, other - Symmetrical upper and lower motor function is diminished. He does follow commands very motor function. No focal deficits.. ABSENT: alert Psychiatric exam: PRESENT: flat affect Focused psych exam: ABSENT: pressured speech, psychomotor agitation, restlessness Skin exam: PRESENT: dry, intact, warm. ABSENT: cyanosis, rash Tubes/Lines: PRESENT: Other - Varner catheter Laboratory/Radiographs Laboratory Results: 02/14/20 16:53 02/14/20 04:19 02/13/20 02/14/20 02/14/20 05:48 04:19 04:19 WBC 14.9 H RBC 3.52 L Hgb 10.2 L Hct 30.6 L MCV 87 MCH 28.9 MCHC 33.2 RDW 15.1 H Plt Count 291 Seg Neutrophils % Not Reportable Carbonic Acid HCO3/H2CO3 Ratio ABG pH ABG pCO2 ABG pO2 ABG HCO3 ABG O2 Saturation ABG Base Excess FiO2 Sodium 143.5 Potassium 4.5 Chloride 113 H Carbon Dioxide 18 L Anion Gap 13 BUN 108 H Creatinine 3.86 H Est GFR ( Amer) 19 L Glucose 103 Calcium 8.7 Phosphorus 7.6 H Magnesium 2.1 Ferritin 834.00 H Ammonia C-Reactive Protein 48.3 H 02/14/20 02/14/20 02/14/20 04:19 07:24 16:53 WBC 13.1 H RBC 3.33 L Hgb 9.5 L Hct 29.5 L MCV 88 MCH 28.5 MCHC 32.3 RDW 15.1 H Plt Count 272 Seg Neutrophils % Not Reportable Carbonic Acid 0.83 L HCO3/H2CO3 Ratio 21:1 ABG pH 7.44 ABG pCO2 27.5 L ABG pO2 70.5 L ABG HCO3 18.2 L ABG O2 Saturation 95.0 ABG Base Excess -5.0 FiO2 40% Sodium Potassium Chloride Carbon Dioxide Anion Gap BUN Creatinine Est GFR ( Amer) Glucose Calcium Phosphorus Magnesium Ferritin Ammonia < 8.7 L C-Reactive Protein 01/24/20 01/24/20 01/24/20 00:03 00:03 04:20 Creatine Kinase 80 CK-MB (CK-2) 0.63 Troponin I 0.132 0.133 NT-Pro-B Natriuret Pep 02694 H 01/24/20 01/24/20 01/24/20 10:43 17:19 23:06 Creatine Kinase CK-MB (CK-2) Troponin I 0.114 0.079 0.075 NT-Pro-B Natriuret Pep 49292 H 01/30/20 01/31/20 02/01/20 03:45 05:39 06:14 Creatine Kinase CK-MB (CK-2) Troponin I NT-Pro-B Natriuret Pep 53630 H 99574 H 31173 H 02/02/20 04:24 Creatine Kinase CK-MB (CK-2) Troponin I NT-Pro-B Natriuret Pep 04261 H Impressions: Chest X-Ray 02/14/20 06:00 IMPRESSION: Persistent but improved bilateral airspace disease greatest within the upper lungs. Stable enlarged cardiac silhouette. All labs, radiographs, diagnostic studies and EKGs were personally reviewed: Yes In addition, reports of radiographic and diagnostic studies were read: Yes Assessment and Plan - Diagnosis (1) Acute respiratory failure due to severe acute respiratory syndrome coronav irus 2 (SARS-CoV-2) infection Is this a current diagnosis for this admission?: Yes (2) Severe sepsis without septic shock Is this a current diagnosis for this admission?: Yes (3) Acute respiratory failure with hypoxia and hypercapnia Is this a current diagnosis for this admission?: Yes (4) Acute metabolic encephalopathy Is this a current diagnosis for this admission?: Yes (5) [id number] kidney injury Qualifiers: Acute renal failure type: with acute tubular necrosis Chronic kidney disease stage: stage 4 (severe) Qualified Code(s): N17.0 - Acute kidney failure with tubular necrosis; N18.4 - Chronic kidney disease, stage 4 (severe) Is this a current diagnosis for this admission?: Yes (6) Acute worsening of stage 4 chronic kidney disease Is this a current diagnosis for this admission?: Yes (7) Pneumonia due to COVID-19 virus Is this a current diagnosis for this admission?: Yes (8) COVID-19 Is this a current diagnosis for this admission?: Yes (9) CKD stage 4 due to type 2 diabetes mellitus Is this a current diagnosis for this admission?: Yes (10) Chronic pain Qualifiers: Chronic pain type: other chronic pain Qualified Code(s): G89.29 - Other chronic pain Is this a current diagnosis for this admission?: Yes (11) Chronically on opiate therapy Is this a current diagnosis for this admission?: Yes (12) Acute blood loss anemia Is this a current diagnosis for this admission?: Yes (13) GI bleed not requiring more than 4 units of blood in 24 hours, ICU, or surgery Is this a current diagnosis for this admission?: Yes Plan Summary: 02.14.2020: Patient's respiratory status has improved however he still requires high flow nasal cannula and is hypoxic without this. His chest x-ray is improving steadily and we will hold on CAT scan for now. He did have maroon stool and required transfusion 24 hours ago. His hemoglobin/hematocrit have remained stable and I have transitioned him to twice daily Protonix He had been on heparin because of COVID which has been shown to improve outcomes however this is been discontinued. He is 21 days from initial admission and has been extubated for 48 hours. At this point repeat COVID testing will need to be done in anticipation for transfer to LTAC and to determine if he is suitable to be removed from COVID precautions. Will wean Precedex to determine neurological function. He is lethargic but now able to discuss where he is in short words. He has significant critical illness deconditioning and will need physical therapy which is been started here. Speech is evaluated patient and he is not a candidate for any oral intake. Have asked nursing to place an NG tube and will begin enteral therapy. Continue supportive care. Will attempt to have a discussion with the patient to determine medical power of banking attorney and or wishes. Hold diuresis for today. Renal function has plateaued and he is urinating we will continue to monitor. 02.13.2020: Respiratory: Patient's respiratory status is improving as his chest x-ray shows slight improvement.. Will need to be vigilant to watch for pneumonia. It is difficult to know whether the increase in steroids for diuresis has helped. May need to consider extended linezolid and a carbanapenem antibiotic if his x-ray does not improve. May also need to consider CT scan to evaluate pulmonary parenchyma. May also need to consider other etiologies such as fungal and atypical infections as well as cryptogenic organizing pneumonia Infectious: Patient has SARSCOVID-19 and is at day 20. Typically at day 21 recheck for persistent COVID positivity. This will be necessary to check in order to get the patient to an LTAC type setting if he is accepted. Continue to monitor for pneumonia. Cardiac: No active issues continue to monitor Hematologic: Continue to monitor inflammatory parameters. Patient is on heparin because of COVID positivity and active pneumonitis. Awaiting iron profile to determine whether him out of poetic stimulating agents are needed. Given their propensity for thrombotic dysfunction I have discontinued him out of poetic stimulating agents. Endocrine: Continue to monitor glucose on Decadron therapy Renal: Creatinine has worsened and holding diuresis. Will adjust any medications based on GFR. Have reduced Neurontin because of reduced GFR Metabolic: Continue to monitor electrolytes and replace as needed Alimentary: Speech eval has been ordered. They are going to give the patient 1 more day before checking secondary to prolonged to patient status. We would also like to reduce dexmedetomidine prior to this. Neurologic: Patient has obvious physical deconditioning secondary to significant critical illness related to COVID-19. Therapy has been actively involved in applaud their efforts in light of a significant pandemic. Continue to reduce the dexmedetomidine. Should be noted that the patient has chronic low back pain will need to monitor for need for analgesia Sedation/analgesia: Weaning dexmedetomidine Lines/Tubes: Central access has been removed. Peripheral IVs are present Other/family: Patient has no medical power of banking attorney and await his neurological improvement to determine DNR status and other important decisions. 02.12.2020: Respiratory: Patient has significant hypoxemia which is improved. His chest x- ray appeared worse yesterday but given his transition to pressure support and reduction in FiO2 in conjunction with stabilization after self extubation, it would appear that clinically he is improving. We will continue diuresis today and discontinue all excess IV fluids. Given the fact that he does have COVID and they do have a prolonged alveolar process have increased his Decadron to twice a day at 4 mg. Standard doses for COVID are now at 6 to 8 mg and will continue this. This will also assure that the patient does not develop any adrenal insufficiency. We will continue to provide supportive care with high flow to prevent any atelectasis which will occur with discontinuation of positive pressure ventilation. Will need to monitor closely for recrudescence. Infectious: Patient has been on prolonged antibiotics and will discontinue in the next 24 hours. Given his chest x-ray findings yesterday will reevaluate chest x-ray and determine if antibiotics are needed. Unfortunately procalcitonin does not return in a timely fashion and would be unhelpful with the decision-making process. Cardiac: Patient's previous echocardiogram did not show a reduction in EF. This echocardiogram was done in December 2019 which did show an ejection fraction of 55 to 60%. There was pseudonormalization of left ventricular relaxation with a grade 2 diastolic dysfunction noted. Will continue diuresis. Hematologic: Patient has anemia. He has been started on hematopoietic stimulating agent and iron. I have ordered an iron profile. His MCV is not low to suggest iron deficiency anemia. We will continue to monitor. His hemoglobin has dropped to below 7 and will transfuse today. Endocrine: We will continue to monitor glucose with Decadron therapy. Renal: Patient has acute on chronic renal failure. His creatinine has improved with diuresis. We will continue to monitor with continued diuretic therapy. Discontinue IV fluids. He does have generalized anasarca which is reflective of his previous septic state, critical illness and renal dysfunction Metabolic: Continue to monitor and treat electrolyte abnormalities. Currently does not require dialysis and will remove the dialysis catheter today after the heparin has been held for 90 minutes. Alimentary: No active gastrointestinal issues. Will need to evaluate his ability to swallow for nutritional support. Neurologic: Patient does have critical illness related acute metabolic encephalopathy. Will wean Precedex. Sedation/analgesia: Discontinue fentanyl after extubation. Watch for narcotic withdrawal. Continue with dexmedetomidine and as needed analgesia and anxiolytics of the non-benzodiazepine form Lines/Tubes: Dialysis catheter has been in since February 01, 2020. We will removed today Other/family: Patient does not have a medical power of banking attorney and no emergency contacts are listed. When he is able and stable we will try to determine medical power of banking attorney for any decisions that it may be required. Will discuss with case management on the best way to obtain this. Critical Time Critical Time (minutes): 42 Level of Care: ICU Anticipated discharge: Acute Rehab Anticipated DC Timeframe: within 48 hours -: 1. The care of a critical patient is a dynamic process. This note is a quality assurance representative synopsis but static in nature. The timeframe for treatments given in order is not necessarily the actual time these treatments may have been done. 2. This patient requires critical care secondary to ongoing requirements for t herapy not offered or safe outside the critical care environment. Transfer to a lower level of care will result in altered life or limb morbidity and mortality. 3. Multidisciplinary rounds completed. 4. ABCDE bundle addressed.
[2020-02-14] MEDS ORDERED: PHARMACY COMMUNICATION ORDER MC NR (19:15)
[2020-02-14 20:28] LABS: HEMATOCRIT 33.7 % (37.9-51.0); MEAN CORPUSCULAR HEMOGLOBIN 28.9 pg (27.0-33.4); MEAN CORPUSCULAR HGB CONC 32.7 g/dL (32.0-36.0); MEAN CORPUSCULAR VOLUME 89 fl (80-97); PLATELET COUNT 304 10^3/uL (150-450); WHITE BLOOD COUNT 12.2 10^3/uL (4.0-10.5)
[2020-02-14 20:48] LABS: C-REACTIVE PROTEIN 39.8 mg/L (<10.0)
[2020-02-14] MEDS: PANTOPRAZOLE SODIUM 40 MG VIAL IV SCH (22:45)
[2020-02-15] MEDS: INSULIN REG, HUMAN 100 UNIT/ML 3 ML VIAL (PYX) SUBCUT SCH ×5 (01:21→23:15)
[2020-02-15 04:44] LABS: HEMATOCRIT 28.8 % (37.9-51.0); HEMOGLOBIN 9.5 g/dL (13.5-17.0); MEAN CORPUSCULAR HEMOGLOBIN 29.1 pg (27.0-33.4); MEAN CORPUSCULAR HGB CONC 33.1 g/dL (32.0-36.0); MEAN CORPUSCULAR VOLUME 88 fl (80-97); PLATELET COUNT 297 10^3/uL (150-450); RED BLOOD COUNT 3.27 10^6/uL (4.35-5.55); RED CELL DISTRIBUTION WIDTH 14.9 % (11.5-14.0); WHITE BLOOD COUNT 13.3 10^3/uL (4.0-10.5)
[2020-02-15 05:06] LABS: ANION GAP 14 (5-19); BLOOD UREA NITROGEN 109 mg/dL (7-20); CALCIUM 8.8 mg/dL (8.4-10.2); CARBON DIOXIDE 14 mmol/L (22-30); CHLORIDE 119 mmol/L (98-107); GLUCOSE 157 mg/dL (75-110); PHOSPHORUS 7.8 mg/dL (2.5-4.5); POTASSIUM 4.7 mmol/L (3.6-5.0)
[2020-02-15 05:09] LABS: ABSOLUTE LYMPHOCYTES# (MANUAL) 0.7 10^3/uL (0.5-4.7); ABSOLUTE MONOCYTES # (MANUAL) 0.5 10^3/uL (0.1-1.4); BASOPHILS % (MANUAL) 0 % (0-2); EOSINOPHILS % (MANUAL) 0 % (0-6); LYMPHOCYTES % (MANUAL) 5 % (13-45); MONOCYTES % (MANUAL) 4 % (3-13); SEGMENTED NEUTROPHILS % (MAN) 91 % (42-78); TOTAL CELLS COUNTED 100
[2020-02-15 05:10] LABS: ANISOCYTOSIS SLIGHT; PLATELET COMMENT ADEQUATE
--- NOTE | 2020-02-15 08:59 | RADIOLOGY REPORT (SQ) ---
EXAM DESCRIPTION: CHEST SINGLE VIEW IMAGES COMPLETED DATE/TIME: 02/15/2020 7:03 am REASON FOR STUDY: covid pneumonia COMPARISON: 02/14/2020 NUMBER OF VIEWS: One view. TECHNIQUE: Single frontal radiographic image of the chest acquired. LIMITATIONS: None. FINDINGS: LUNGS AND PLEURA: Bilateral airspace disease not significantly changed. MEDIASTINUM AND HEART: Stable heart size and mediastinal structures. SUPPORT DEVICES: Appropriate location without change. BONY STRUCTURES: No acute findings. HARDWARE: None. OTHER: No other significant finding. IMPRESSION: STABLE APPEARANCE OF THE CHEST. SUPPORT DEVICES UNCHANGED. Reading location - IP/workstation name: [email or web address]
[2020-02-15] MEDS: BUDESONIDE NEB 0.25 MG/2 ML AMPUL NEB SCH ×2 (09:39→20:26)
[2020-02-15] MEDS: PANTOPRAZOLE SODIUM 40 MG VIAL IV SCH ×2 (10:42→21:42)
[2020-02-15] MEDS: DEXAMETHASONE SOD PHOSPHATE INJ 4 MG/1 ML VIAL IV SCH (10:42)
[2020-02-15] MEDS: METOPROLOL TARTRATE 25 MG TABLET NG SCH ×2 (10:42→21:42)
[2020-02-15] MEDS: CALCIUM ACETATE 667 MG CAPSULE NG SCH ×3 (12:16→23:13)
[2020-02-15] MEDS: GABAPENTIN 100 MG CAPSULE PO SCH ×2 (13:51→21:42)
--- NOTE | 2020-02-15 17:41 | PDOC CRITICAL CARE PROG REPORT ---
General Date:: 02/15/20 ICU Day:: 22 Hospital Day:: 22 Resuscitation Status: Full Code Medical Power of Software Project Engineer: None Events in the past 12 to 24 Hours:: 02.15.2020: Patient has been weaned off Precedex and is more responsive but still lethargic. He has had no further decreases in hemoglobin. He has had 1 stool that was melanotic but no active bleeding noted. He is tolerating a diet. 02.14.2020: Patient's neurological status has improved although he is still somewhat lethargic. Precedex is being weaned. He did manage to pull out his NG tube and it was being replaced today. Of significance, patient had maroon stool but did not have a significant decrease in his hemoglobin/EF resolved. He did require transfusion the day of self extubation but had no evidence for bleeding. Heparin drip was stopped he was started on Protonix. 02.13.2020: Patient has remained extubated after self extubation yesterday. He has had no episodes of stridor or hypoxia. He did require increasing FiO2 on high flow however some of this hypoxia appears to been related to agitation and he has been maintained on Precedex. No significant hemodynamic disturbances have occurred since extubation 02.12.2020: Patient required higher FiO2 in the last 24 hours and improved with diuresis. Unfortunately, he self extubated this morning before a chest x-ray could be taken. He was however on pressure-support and CPAP and tolerating this quite well. He had a positive result to the Lasix. We were immediately at bedside after the self extubation and placed him on high flow nasal cannula. He did not have a significant hypoxic event associated with this. Review of systems relevant to events:: 02.15.2020: Continued improvement in chest x-ray. Creatinine decreased not significantly. Repeat COVID testing done yesterday. Tolerating physical therapy. Did not pass speech eval. 02.14.2020: Both chest x-ray and creatinine have suddenly improved today. Patient denies any chest pain. He is slightly more awake today but continues to be lethargic and answers and only 1 or 2 word statements 02.13.2020: Chest x-ray shows improvement compared to previous. Decadron was increased yesterday. He has had no significant bradycardia on Precedex. Temporary dialysis catheter was removed. Creatinine is slightly increased compared to yesterday and diuresis has been discontinued. 02.12.2020: Patient has had no stridor. On high flow nasal cannula he is maintaining oxygen saturation higher than 94%. He requires dexmedetomidine for mild agitation chemical ventilation. He does not have any significant complaints. Reason for ICU Addmission:: Acute hypoxic respiratory failure with pneumonia from COVID 19 - Medications: Medications reviewed and adjusted accordingly: Yes Vasopressors:: None Sedation:: Dexmedetomidine now off Physical Exam Vital Signs: Temp Pulse Resp BP Pulse Ox 99.1 F 104 H 15 132/90 H 97 02/15/20 16:00 02/15/20 16:00 02/15/20 16:00 02/15/20 16:00 02/15/20 16:00 Intake & Output 02/14/20 02/15/20 02/16/20 06:59 06:59 06:59 Intake Total 196 260 Output Total 3470 1635 610 Balance -3274 -1375 -610 Weight 71.3 kg 66.3 kg Weight/Height Weight 66.3 kg Height 5 ft 7 in General appearance: PRESENT: no acute distress, disheveled, well-developed, well-nourished Head exam: PRESENT: atraumatic Eye exam: PRESENT: conjunctiva pink. ABSENT: conjunctival injection, nystagmus, scleral icterus Mouth exam: PRESENT: dry mucosa Neck exam: ABSENT: JVD, lymphadenopathy, tenderness, thyromegaly, tracheal deviation, tracheostomy Respiratory exam: PRESENT: unlabored, other - Lung sounds not auscultated secondary to the confines of PPE and poor auditory capability of disposable stethoscope. ABSENT: accessory muscle use, chest wall tenderness, prolonged expiratory phas, tachypnea Cardiovascular exam: PRESENT: RRR, other - Heart sounds not auscultated secondary to the confines of PPE and poor auditory capability of disposable stethoscope. ABSENT: bradycardia, tachycardia Pulses: PRESENT: normal dorsalis pedis pul Vascular exam: PRESENT: normal capillary refill. ABSENT: pallor GI/Abdominal exam: PRESENT: soft, other - Gastric sounds not auscultated secondary to the confines of PPE and poor auditory capability of disposable stethoscope. ABSENT: ascites, firm, guarding, mass, organolmegaly, tenderness Rectal exam: PRESENT: deferred Gentrourinary exam: PRESENT: indwelling catheter Extremities exam: PRESENT: pedal edema Musculoskeletal exam: ABSENT: deformity, dislocation Neurological exam: PRESENT: altered, other - Moves all extremities to command but slowly and weakly. There is distinct muscle atrophy of the lower and upper extremities Psychiatric exam: PRESENT: flat affect, unusual affect Focused psych exam: ABSENT: restlessness Skin exam: PRESENT: dry, intact, normal color, warm. ABSENT: cyanosis, pallor, rash Tubes/Lines: PRESENT: Nasogastic Tube, Other - Varner type urinary catheter Laboratory/Radiographs Laboratory Results: 02/15/20 04:28 02/15/20 04:28 02/14/20 02/14/20 02/14/20 16:53 20:15 20:15 WBC 13.1 H 12.2 H RBC 3.33 L 3.80 L Hgb 9.5 L 11.0 L Hct 29.5 L 33.7 L MCV 88 89 MCH 28.5 28.9 MCHC 32.3 32.7 RDW 15.1 H 15.0 H Plt Count 272 304 Seg Neutrophils % Not Reportable Sodium Potassium Chloride Carbon Dioxide Anion Gap BUN Creatinine Est GFR ( Amer) Glucose Calcium Phosphorus Magnesium Ferritin 573.00 H C-Reactive Protein 39.8 H 02/15/20 02/15/20 04:28 04:28 WBC 13.3 H RBC 3.27 L Hgb 9.5 L Hct 28.8 L MCV 88 MCH 29.1 MCHC 33.1 RDW 14.9 H Plt Count 297 Seg Neutrophils % Not Reportable Sodium 146.8 H Potassium 4.7 Chloride 119 H Carbon Dioxide 14 L Anion Gap 14 BUN 109 H Creatinine 3.90 H Est GFR ( Amer) 19 L Glucose 157 H Calcium 8.8 Phosphorus 7.8 H Magnesium 2.3 Ferritin C-Reactive Protein 01/24/20 01/24/20 01/24/20 00:03 00:03 04:20 Creatine Kinase 80 CK-MB (CK-2) 0.63 Troponin I 0.132 0.133 NT-Pro-B Natriuret Pep 04917 H 01/24/20 01/24/20 01/24/20 10:43 17:19 23:06 Creatine Kinase CK-MB (CK-2) Troponin I 0.114 0.079 0.075 NT-Pro-B Natriuret Pep 98282 H 01/30/20 01/31/20 02/01/20 03:45 05:39 06:14 Creatine Kinase CK-MB (CK-2) Troponin I NT-Pro-B Natriuret Pep 31516 H 77369 H 56611 H 02/02/20 04:24 Creatine Kinase CK-MB (CK-2) Troponin I NT-Pro-B Natriuret Pep 02563 H Impressions: Chest X-Ray 02/15/20 06:00 IMPRESSION: STABLE APPEARANCE OF THE CHEST. SUPPORT DEVICES UNCHANGED. All labs, radiographs, diagnostic studies and EKGs were personally reviewed: Yes In addition, reports of radiographic and diagnostic studies were read: Yes Assessment and Plan - Diagnosis (1) Acute respiratory failure due to severe acute respiratory syndrome coronavirus 2 (SARS-CoV-2) infection Is this a current diagnosis for this admission?: Yes (2) Severe sepsis without septic shock Is this a current diagnosis for this admission?: Yes (3) Acute respiratory failure with hypoxia and hypercapnia Is this a current diagnosis for this admission?: Yes (4) Acute metabolic encephalopathy Is this a current diagnosis for this admission?: Yes (5) [id number] kidney injury Qualifiers: Acute renal failure type: with acute tubular necrosis Chronic kidney disea se stage: stage 4 (severe) Qualified Code(s): N17.0 - Acute kidney failure with tubular necrosis; N18.4 - Chronic kidney disease, stage 4 (severe) Is this a current diagnosis for this admission?: Yes (6) Acute worsening of stage 4 chronic kidney disease Is this a current diagnosis for this admission?: Yes (7) Pneumonia due to COVID-19 virus Is this a current diagnosis for this admission?: Yes (8) COVID-19 Is this a current diagnosis for this admission?: Yes (9) CKD stage 4 due to type 2 diabetes mellitus Is this a current diagnosis for this admission?: Yes (10) Chronic pain Qualifiers: Chronic pain type: other chronic pain Qualified Code(s): G89.29 - Other chronic pain Is this a current diagnosis for this admission?: Yes (11) Chronically on opiate therapy Is this a current diagnosis for this admission?: Yes (12) Acute blood loss anemia Is this a current diagnosis for this admission?: Yes (13) GI bleed not requiring more than 4 units of blood in 24 hours, ICU, or surgery Is this a current diagnosis for this admission?: Yes Plan Summary: 02.15.2020: Patient has had continued progressive improvement in his overall status. He is now been transitioned to nasal cannula from high flow status. His chest x-ray appears to be improving on a daily basis. We are still awaiting his COVID testing results to determine if there has been transition to negative stain His deconditioning is significant and he has muscle atrophy. We are very appreciative care and the risk being taken by the physical therapy department. He is still not able to swallow given his neurological dysfunction. We are very appreciative of speech therapies efforts. We will continue NG tube feeding. Continue Decadron Patient will need long-term rehab critical illness related to deconditioning and myopathy. Patient's phosphorus is high and I have started him on anti-phosphorus medication Creatinine is at plateau stabilized He has some hypernatremia and is free water has been increased. Continue to monitor and follow Other than COVID-19 pneumonitis no other infectious issues. He can be transitioned to IMCU care. He still is quite lethargic and difficult to have long conversation with patient. I do not feel he is completely under standing his situation. Once he is more awake discussion about returning will need to be undertaken. 02.14.2020: Patient's respiratory status has improved however he still requires high flow nasal cannula and is hypoxic without this. His chest x-ray is improving steadily and we will hold on CAT scan for now. He did have maroon stool and required transfusion 24 hours ago. His hemoglob in/hematocrit have remained stable and I have transitioned him to twice daily Protonix He had been on heparin because of COVID which has been shown to improve outcomes however this is been discontinued. He is 21 days from initial admission and has been extubated for 48 hours. At this point repeat COVID testing will need to be done in anticipation for transfer to LTAC and to determine if he is suitable to be removed from COVID precautions. Will wean Precedex to determine neurological function. He is lethargic but now able to discuss where he is in short words. He has significant critical illness deconditioning and will need physical therapy which is been started here. Speech is evaluated patient and he is not a candidate for any oral intake. Have asked nursing to place an NG tube and will begin enteral therapy. Continue supportive care. Will attempt to have a discussion with the patient to determine medical power of health care attorney and or wishes. Hold diuresis for today. Renal function has plateaued and he is urinating we will continue to monitor. 02.13.2020: Respiratory: Patient's respiratory status is improving as his chest x-ray shows slight improvement.. Will need to be vigilant to watch for pneumonia. It is difficult to know whether the increase in steroids for diuresis has helped. May need to consider extended linezolid and a carbanapenem antibiotic if his x-ray does not improve. May also need to consider CT scan to evaluate pulmonary parenchyma. May also need to consider other etiologies such as fungal and atypical infections as well as cryptogenic organizing pneumonia Infectious: Patient has SARSCOVID-19 and is at day 20. Typically at day 21 recheck for persistent COVID positivity. This will be necessary to check in order to get the patient to an LTAC type setting if he is accepted. Continue to monitor for pneumonia. Cardiac: No active issues continue to monitor Hematologic: Continue to monitor inflammatory parameters. Patient is on heparin because of COVID positivity and active pneumonitis. Awaiting iron profile to determine whether him out of poetic stimulating agents are needed. Given their propensity for thrombotic dysfunction I have discontinued him out of poetic stimulating agents. Endocrine: Continue to monitor glucose on Decadron therapy Renal: Creatinine has worsened and holding diuresis. Will adjust any m edications based on GFR. Have reduced Neurontin because of reduced GFR Metabolic: Continue to monitor electrolytes and replace as needed Alimentary: Speech eval has been ordered. They are going to give the patient 1 more day before checking secondary to prolonged to patient status. We would als o like to reduce dexmedetomidine prior to this. Neurologic: Patient has obvious physical deconditioning secondary to significant critical illness related to COVID-19. Therapy has been actively involved in applaud their efforts in light of a significant pandemic. Continue to reduce the dexmedetomidine. Should be noted that the patient has chronic low back pain will need to monitor for need for analgesia Sedation/analgesia: Weaning dexmedetomidine Lines/Tubes: Central access has been removed. Peripheral IVs are present Other/family: Patient has no medical power of health care attorney and await his neurological improvement to determine DNR status and other important decisions. 02.12.2020: Respiratory: Patient has significant hypoxemia which is improved. His chest x- ray appeared worse yesterday but given his transition to pressure support and reduction in FiO2 in conjunction with stabilization after self extubation, it would appear that clinically he is improving. We will continue diuresis today and discontinue all excess IV fluids. Given the fact that he does have COVID and they do have a prolonged alveolar process have increased his Decadron to twice a day at 4 mg. Standard doses for COVID are now at 6 to 8 mg and will continue this. This will also assure that the patient does not develop any adrenal insufficiency. We will continue to provide supportive care with high flow to prevent any atelectasis which will occur with discontinuation of positive pressure ventilation. Will need to monitor closely for recrudescence. Infectious: Patient has been on prolonged antibiotics and will discontinue in the next 24 hours. Given his chest x-ray findings yesterday will reevaluate chest x-ray and determine if antibiotics are needed. Unfortunately procalcitonin does not return in a timely fashion and would be unhelpful with the decision-making process. Cardiac: Patient's previous echocardiogram did not show a reduction in EF. This echocardiogram was done in December 2019 which did show an ejection fraction of 55 to 60%. There was pseudonormalization of left ventricular relaxation with a grade 2 diastolic dysfunction noted. Will continue diuresis. Hematologic: Patient has anemia. He has been started on hematopoietic stimulating agent and iron. I have ordered an iron profile. His MCV is not low to suggest iron deficiency anemia. We will continue to monitor. His hemoglobin has dropped to below 7 and will transfuse today. Endocrine: We will continue to monitor glucose with Decadron therapy. Renal: Patient has acute on chronic renal failure. His creatinine has improved with diuresis. We will continue to monitor with continued diuretic therapy. Discontinue IV fluids. He does have generalized anasarca which is reflective of his previous septic state, critical illness and renal dysfunction Metabolic: Continue to monitor and treat electrolyte abnormalities. Currently does not require dialysis and will remove the dialysis catheter today after the heparin has been held for 90 minutes. Alimentary: No active gastrointestinal issues. Will need to evaluate his ability to swallow for nutritional support. Neurologic: Patient does have critical illness related acute metabolic encephalopathy. Will wean Precedex. Sedation/analgesia: Discontinue fentanyl after extubation. Watch for narcotic withdrawal. Continue with dexmedetomidine and as needed analgesia and anxiolytics of the non-benzodiazepine form Lines/Tubes: Dialysis catheter has been in since February 01, 2020. We will removed today Other/family: Patient does not have a medical power of health care attorney and no emergency contacts are listed. When he is able and stable we will try to determine medical power of health care attorney for any decisions that it may be required. Will discuss with case management on the best way to obtain this. Critical Time Critical Time (minutes): 0 - [id number] Level of Care: IMCU Anticipated discharge: Acute Rehab Anticipated DC Timeframe: within 24 hours -: 1. The care of a critical patient is a dynamic process. This note is a uniforms sales representative synopsis but static in nature. The timeframe for treatments given in order is not necessarily the actual time these treatments may have been done. 2. This patient requires critical care secondary to ongoing requirements for therapy not offered or safe outside the critical care environment. Transfer to a lower level of care will result in altered life or limb morbidity and mortality. 3. Multidisciplinary rounds completed. 4. ABCDE bundle addressed.
[2020-02-16 02:19] LABS: ABSOLUTE LYMPHOCYTES (AUTO) 1.1 10^3/uL (0.5-4.7); ABSOLUTE MONOCYTES (AUTO) 1.8 10^3/uL (0.1-1.4); ABSOLUTE NEUT (AUTO) 14.4 10^3/uL (1.7-8.2); BASOPHILS % (AUTO) 0.2 % (0-2); EOSINOPHILS % (AUTO) 0.2 % (0-6); HEMATOCRIT 28.2 % (37.9-51.0); HEMOGLOBIN 9.3 g/dL (13.5-17.0); LYMPHOCYTES % (AUTO) 6.3 % (13-45); MEAN CORPUSCULAR HEMOGLOBIN 29.1 pg (27.0-33.4); MEAN CORPUSCULAR HGB CONC 32.9 g/dL (32.0-36.0); MEAN CORPUSCULAR VOLUME 88 fl (80-97); MONOCYTES % (AUTO) 10.6 % (3-13); PLATELET COUNT 318 10^3/uL (150-450); RED BLOOD COUNT 3.19 10^6/uL (4.35-5.55); RED CELL DISTRIBUTION WIDTH 15.1 % (11.5-14.0); SEGMENTED NEUTROPHILS % (AUTO) 82.7 % (42-78); TOTAL CELLS COUNTED % (AUTO) 100 %; WHITE BLOOD COUNT 17.4 10^3/uL (4.0-10.5)
[2020-02-16 04:52] LABS: HEMATOCRIT 30.8 % (37.9-51.0); HEMOGLOBIN 10.1 g/dL (13.5-17.0); MEAN CORPUSCULAR HEMOGLOBIN 28.7 pg (27.0-33.4); MEAN CORPUSCULAR HGB CONC 32.7 g/dL (32.0-36.0); MEAN CORPUSCULAR VOLUME 88 fl (80-97); PLATELET COUNT 333 10^3/uL (150-450); WHITE BLOOD COUNT 18.3 10^3/uL (4.0-10.5)
[2020-02-16 05:00] LABS: ANION GAP 5 (5-19); BLOOD UREA NITROGEN 111 mg/dL (7-20); CALCIUM 9.3 mg/dL (8.4-10.2); CHLORIDE 119 mmol/L (98-107); GLUCOSE 277 mg/dL (75-110); POTASSIUM 4.4 mmol/L (3.6-5.0)
[2020-02-16 05:15] LABS: CARBON DIOXIDE 25 mmol/L (22-30); PHOSPHORUS 5.8 mg/dL (2.5-4.5)
[2020-02-16] MEDS: CALCIUM ACETATE 667 MG CAPSULE NG SCH ×3 (05:33→19:23)
[2020-02-16] MEDS: GABAPENTIN 100 MG CAPSULE PO SCH (05:33)
[2020-02-16] MEDS: INSULIN REG, HUMAN 100 UNIT/ML 3 ML VIAL (PYX) SUBCUT SCH ×3 (05:33→19:24)
[2020-02-16 05:38] LABS: ABSOLUTE LYMPHOCYTES# (MANUAL) 0.5 10^3/uL (0.5-4.7); ABSOLUTE MONOCYTES # (MANUAL) 1.3 10^3/uL (0.1-1.4); BASOPHILS % (MANUAL) 0 % (0-2); EOSINOPHILS % (MANUAL) 0 % (0-6); LYMPHOCYTES % (MANUAL) 3 % (13-45); MONOCYTES % (MANUAL) 7 % (3-13); SEGMENTED NEUTROPHILS % (MAN) 90 % (42-78); TOTAL CELLS COUNTED 100
[2020-02-16 05:40] LABS: ANISOCYTOSIS SLIGHT; PLATELET COMMENT ADEQUATE
[2020-02-16] MEDS ORDERED: SUCCINYLCHOLINE CHLORIDE INJ 200 MG/10 ML VIAL ONE (07:56)
--- NOTE | 2020-02-16 09:03 | RADIOLOGY REPORT (SQ) ---
EXAM DESCRIPTION: CHEST SINGLE VIEW IMAGES COMPLETED DATE/TIME: 02/16/2020 6:47 am REASON FOR STUDY: hypoxia COMPARISON: 02/15/2020 NUMBER OF VIEWS: One view. TECHNIQUE: Single frontal radiographic image of the chest acquired. LIMITATIONS: None. FINDINGS: LUNGS AND PLEURA: Stable appearance. MEDIASTINUM AND HILAR STRUCTURES: Stable heart size and mediastinal structures. HEART AND VASCULAR STRUCTURES: Stable appearance. BONES: No acute findings. HARDWARE: None in the chest. OTHER: No other significant finding. IMPRESSION: STABLE APPEARANCE OF THE CHEST. TECHNICAL DOCUMENTATION: JOB ID: [id number] 2010 [employer]- All Rights Reserved Reading location - IP/workstation name: [email or web address]
[2020-02-16] MEDS: BUDESONIDE NEB 0.25 MG/2 ML AMPUL NEB SCH ×2 (10:15→20:16)
[2020-02-16] MEDS: ALBUTEROL SULFATE 0.083% NEB 2.5 MG/3 ML AMPUL NEB PRN ×2 (10:15→20:16)
[2020-02-16] MEDS ORDERED: DEXAMETHASONE SOD PHOS INJ 10 MG/1 ML VIAL IV SCH (11:30)
[2020-02-16 12:50] LABS: C-REACTIVE PROTEIN 24.2 mg/L (<10.0)
[2020-02-16] MEDS: PANTOPRAZOLE SODIUM 40 MG VIAL IV SCH ×2 (13:33→21:02)
[2020-02-16] MEDS: METOPROLOL TARTRATE 25 MG TABLET NG SCH ×2 (13:33→21:02)
[2020-02-16] MEDS: DEXAMETHASONE SOD PHOSPHATE INJ 4 MG/1 ML VIAL IV SCH ×2 (13:34→21:02)
--- NOTE | 2020-02-16 18:30 | PDOC CRITICAL CARE PROG REPORT ---
General Date:: 02/16/20 ICU Day:: 23 Hospital Day:: 23 Resuscitation Status: Full Code Medical Power of Systems Checkout Mechanic: None Events in the past 12 to 24 Hours:: 02.16.2020: Patient developed hypoxemia last night requiring BiPAP. There was concern for aspiration. Despite this his chest x-ray is improved from previous. He was more sedate today is answering questions although still lethargic. 02.15.2020: Patient has been weaned off Precedex and is more responsive but still lethargic. He has had no further decreases in hemoglobin. He has had 1 stool that was melanotic but no active bleeding noted. He is tolerating a diet. 02.14.2020: Patient's neurological status has improved although he is still somewhat lethargic. Precedex is being weaned. He did manage to pull out his NG tube and it was being replaced today. Of significance, patient had maroon stool but did not have a significant decrease in his hemoglobin/EF resolved. He did require transfusion the day of self extubation but had no evidence for bleeding. Heparin drip was stopped he was started on Protonix. 02.13.2020: Patient has remained extubated after self extubation yesterday. He has had no episodes of stridor or hypoxia. He did require increasing FiO2 on high flow however some of this hypoxia appears to been related to agitation and he has been maintained on Precedex. No significant hemodynamic disturbances have occurred since extubation 02.12.2020: Patient required higher FiO2 in the last 24 hours and improved with diuresis. Unfortunately, he self extubated this morning before a chest x-ray could be taken. He was however on pressure-support and CPAP and tolerating this quite well. He had a positive result to the Lasix. We were immediately at bedside after the self extubation and placed him on high flow nasal cannula. He did not have a significant hypoxic event associated with this. Review of systems relevant to events:: 02.16.2020: D-dimer slightly more elevated. Creatinine has improved. Unable to remove Varner secondary to neurological status and deconditioned state. He has had no further decreases in hemoglobin and hematocrit and hemoglobin has improved. Occasionally has melena without any hemodynamic compromise 02.15.2020: Continued improvement in chest x-ray. Creatinine decreased not significantly. Repeat COVID testing done yesterday. Tolerating physical therapy. Did not pass speech eval. 02.14.2020: Both chest x-ray and creatinine have suddenly improved today. Patient denies any chest pain. He is slightly more awake today but continues to be lethargic and answers and only 1 or 2 word statements 02.13.2020: Chest x-ray shows improvement compared to previous. Decadron was increased yesterday. He has had no significant bradycardia on Precedex. Temporary dialysis catheter was removed. Creatinine is slightly increased compared to yesterday and diuresis has been discontinued. 02.12.2020: Patient has had no stridor. On high flow nasal cannula he is maintaining oxygen saturation higher than 94%. He requires dexmedetomidine for mild agitation chemical ventilation. He does not have any significant complaints. Reason for ICU Addmission:: Acute hypoxic respiratory failure with pneumonia from COVID 19 - Medications: Medications reviewed and adjusted accordingly: Yes Sedation:: None Physical Exam Vital Signs: Temp Pulse Resp BP Pulse Ox 99.1 F 93 35 H 139/84 H 97 02/15/20 16:00 02/16/20 10:15 02/16/20 18:00 02/16/20 17:39 02/16/20 18:00 Intake & Output 02/15/20 02/16/20 02/17/20 06:59 06:59 06:59 Intake Total 260 190 Output Total 1635 1110 1000 Balance -1375 -920 -1000 Weight 66.3 kg 66.3 kg Weight/Height Weight 66.3 kg Height 5 ft 7 in General appearance: PRESENT: no acute distress, disheveled, well-developed, well-nourished Exam: Ill-appearing nontoxic nonintubated 60-year-old male who appears older than stated age no acute distress he is lethargic but awake Head exam: PRESENT: atraumatic, normocephalic Eye exam: PRESENT: PERRLA. ABSENT: conjunctival injection, nystagmus, scleral icterus Mouth exam: PRESENT: dry mucosa Neck exam: ABSENT: JVD, lymphadenopathy, tenderness, thyromegaly, tracheal eren ation Respiratory exam: PRESENT: unlabored, other - Lung sounds not auscultated secondary to the confines of PPE and poor auditory capability of disposable stethoscope. ABSENT: accessory muscle use, prolonged expiratory phas, tachypnea Cardiovascular exam: PRESENT: RRR, +S1, +S2, other - Heart sounds not auscultated secondary to the confines of PPE and poor auditory capability of disposable stethoscope. ABSENT: bradycardia, tachycardia Pulses: ABSENT: normal dorsalis pedis pul GI/Abdominal exam: PRESENT: soft, other - Gastric sounds not auscultated secondary to the confines of PPE and poor auditory capability of disposable stethoscope. ABSENT: ascites, firm, guarding, mass, rigid, tenderness Gentrourinary exam: PRESENT: indwelling catheter Extremities exam: PRESENT: pedal edema Musculoskeletal exam: PRESENT: other - Significant atrophy upper and lower extremities. ABSENT: deformity, dislocation Neurological exam: PRESENT: altered, awake, other - Patient moves extremities on command. They are very weak with strength of 2/5. There is no nystagmus or piloerection. He does have bilateral foot drop. Psychiatric exam: ABSENT: agitated Focused psych exam: ABSENT: pressured speech, psychomotor agitation, restlessness Skin exam: PRESENT: dry, intact, warm. ABSENT: cyanosis, rash Tubes/Lines: PRESENT: Nasogastic Tube, Other - Varner type urinary catheter Laboratory/Radiographs Laboratory Results: 02/16/20 04:22 02/16/20 04:22 02/16/20 02/16/20 02/16/20 02:00 04:22 04:22 WBC 17.4 H 18.3 H RBC 3.19 L 3.50 L Hgb 9.3 L 10.1 L Hct 28.2 L 30.8 L MCV 88 88 MCH 29.1 28.7 MCHC 32.9 32.7 RDW 15.1 H 15.0 H Plt Count 318 333 Seg Neutrophils % 82.7 H Not Reportable Sodium 148.9 H Potassium 4.4 Chloride 119 H Carbon Dioxide 25 D Anion Gap 5 BUN 111 H Creatinine 3.71 H Est GFR ( Amer) 20 L Glucose 277 H Calcium 9.3 Phosphorus 5.8 H D Magnesium 2.5 H Ferritin Ammonia C-Reactive Protein 02/16/20 02/16/20 04:22 12:13 WBC RBC Hgb Hct MCV MCH MCHC RDW Plt Count Seg Neutrophils % Sodium Potassium Chloride Carbon Dioxide Anion Gap BUN Creatinine Est GFR ( Amer) Glucose Calcium Phosphorus Magnesium Ferritin 424.00 Ammonia < 8.7 L C-Reactive Protein 24.2 H 01/24/20 01/24/20 01/24/20 00:03 00:03 04:20 Creatine Kinase 80 CK-MB (CK-2) 0.63 Troponin I 0.132 0.133 NT-Pro-B Natriuret Pep 83836 H 01/24/20 01/24/20 01/24/20 10:43 17:19 23:06 Creatine Kinase CK-MB (CK-2) Troponin I 0.114 0.079 0.075 NT-Pro-B Natriuret Pep 14498 H 01/30/20 01/31/20 02/01/20 03:45 05:39 06:14 Creatine Kinase CK-MB (CK-2) Troponin I NT-Pro-B Natriuret Pep 37073 H 40533 H 35553 H 02/02/20 04:24 Creatine Kinase CK-MB (CK-2) Troponin I NT-Pro-B Natriuret Pep 85566 H Impressions: Chest X-Ray 02/16/20 06:00 IMPRESSION: STABLE APPEARANCE OF THE CHEST. All labs, radiographs, diagnostic studies and EKGs were personally reviewed: Yes In addition, reports of radiographic and diagnostic studies were read: Yes Assessment and Plan - Diagnosis (1) Acute respiratory failure due to severe acute respiratory syndrome coronavirus 2 (SARS-CoV-2) infection Is this a current diagnosis for this admission?: Yes (2) Severe sepsis without septic shock Is this a current diagnosis for this admission?: Yes (3) Acute respiratory failure with hypoxia and hypercapnia Is this a current diagnosis for this admission?: Yes (4) Acute metabolic encephalopathy Is this a current diagnosis for this admission?: Yes (5) [id number] kidney injury Qualifiers: Acute renal failure type: with acute tubular necrosis Chronic kidney disease stage: stage 4 (severe) Qualified Code(s): N17.0 - Acute kidney failure with tubular necrosis; N18.4 - Chronic kidney disease, stage 4 (severe) Is this a current diagnosis for this admission?: Yes (6) Acute worsening of stage 4 chronic kidney disease Is this a current diagnosis for this admission?: Yes (7) Pneumonia due to COVID-19 virus Is this a current diagnosis for this admission?: Yes (8) COVID-19 Is this a current diagnosis for this admission?: Yes (9) CKD stage 4 due to type 2 diabetes mellitus Is this a current diagnosis for this admission?: Yes (10) Chronic pain Qualifiers: Chronic pain type: other chronic pain Qualified Code(s): G89.29 - Other chronic pain Is this a current diagnosis for this admission?: Yes (11) Chronically on opiate therapy Is this a current diagnosis for this admission?: Yes (12) Acute blood loss anemia Is this a current diagnosis for this admission?: Yes (13) GI bleed not requiring more than 4 units of blood in 24 hours, ICU, or mcguire rgery Is this a current diagnosis for this admission?: Yes Plan Summary: 02.16.2020: Patient's x-ray has improved. Despite this he had an episode of hypoxia that may have been related to aspiration or hypercarbic failure. He has been on BiPAP and will obtain ABG to determine if he can discontinue this. I would continue BiPAP at night. Patient has significant critical care deconditioning. He is still COVID positive at day 21 which is not uncommon. He does appear to be asymptomatic at this point but will continue precautions. I am concerned that he may be developing post ARDS cryptogenic organizing pneumonia and/or an inflammatory pneumonitis and have increased the Decadron to 5 mg every 12h We will continue to monitor his chest x-ray and respiratory status. He has had no further bleeding but does have maroon stools. His hemoglobin and his hematocrit remained stable. He was on anticoagulation treatment because of COVID which has distinct anti-inflammatory effects and this disease and events further clotting. His bleeding has caused us to discontinue this treatment. This is another reason for increasing the Decadron I am concerned because his d-dimer is elevated putting him at further risk for VTE and/or micro-embolism. We will continue SCDs. Patient will need long-term rehabilitation and case management is working on these details. Continue supportive care including glucose management. 02.15.2020: Patient has had continued progressive improvement in his overall status. He is now been transitioned to nasal cannula from high flow status. His chest x-ray appears to be improving on a daily basis. We are still awaiting his COVID testing results to determine if there has been transition to negative stain His deconditioning is significant and he has muscle atrophy. We are very appreciative care and the risk being taken by the physical therapy department. He is still not able to swallow given his neurological dysfunction. We are very appreciative of speech therapies efforts. We will continue NG tube feeding. Continue Decadron Patient will need long-term rehab critical illness related to deconditioning and myopathy. Patient's phosphorus is high and I have started him on anti-phosphorus medication Creatinine is at plateau stabilized He has some hypernatremia and is free water has been increased. Continue to monitor and follow Other than COVID-19 pneumonitis no other infectious issues. He can be transitioned to IMCU care. He still is quite lethargic and difficult to have long conversation with patient. I do not feel he is completely understanding his situation. Once he is more awake discussion about returning will need to be undertaken. 02.14.2020: Patient's respiratory status has improved however he still requires high flow nasal cannula and is hypoxic without this. His chest x-ray is improving steadily and we will hold on CAT scan for now. He did have maroon stool and required transfusion 24 hours ago. His hemoglobin/hematocrit have remained stable and I have transitioned him to twice daily Protonix He had been on heparin because of COVID which has been shown to improve outcomes however this is been discontinued. He is 21 days from initial admission and has been extubated for 48 hours. At this point repeat COVID testing will need to be done in anticipation for transfer to LTAC and to determine if he is suitable to be removed from COVID precautions. Will wean Precedex to determine neurological function. He is lethargic but now able to discuss where he is in short words. He has significant critical illness deconditioning and will need home care physical therapist apy which is been started here. Speech is evaluated patient and he is not a candidate for any oral intake. Have asked nursing to place an NG tube and will begin enteral therapy. Continue supportive care. Will attempt to have a discussion with the patient to determine medical power of finance attorney and or wishes. Hold diuresis for today. Renal function has plateaued and he is urinating we will continue to monitor. 02.13.2020: Respiratory: Patient's respiratory status is improving as his chest x-ray shows slight improvement.. Will need to be vigilant to watch for pneumonia. It is difficult to know whether the increase in steroids for diuresis has helped. May need to consider extended linezolid and a carbanapenem antibiotic if his x-ray does not improve. May also need to consider CT scan to evaluate pulmonary parenchyma. May also need to consider other etiologies such as fungal and atypical infections as well as cryptogenic organizing pneumonia Infectious: Patient has SARSCOVID-19 and is at day 20. Typically at day 21 recheck for persistent COVID positivity. This will be necessary to check in order to get the patient to an LTAC type setting if he is accepted. Continue to monitor for pneumonia. Cardiac: No active issues continue to monitor Hematologic: Continue to monitor inflammatory parameters. Patient is on heparin because of COVID positivity and active pneumonitis. Awaiting iron profile to determine whether him out of poetic stimulating agents are needed. Given their propensity for thrombotic dysfunction I have discontinued him out of poetic stimulating agents. Endocrine: Continue to monitor glucose on Decadron therapy Renal: Creatinine has worsened and holding diuresis. Will adjust any medications based on GFR. Have reduced Neurontin because of reduced GFR Metabolic: Continue to monitor electrolytes and replace as needed Alimentary: Speech eval has been ordered. They are going to give the patient 1 more day before checking secondary to prolonged to patient status. We would also like to reduce dexmedetomidine prior to this. Neurologic: Patient has obvious physical deconditioning secondary to significant critical illness related to COVID-19. Therapy has been actively involved in applaud their efforts in light of a significant pandemic. Continue to reduce the dexmedetomidine. Should be noted that the patient has chronic low back pain will need to monitor for need for analgesia Sedation/analgesia: Weaning dexmedetomidine Lines/Tubes: Central access has been removed. Peripheral IVs are present Other/family: Patient has no medical power of finance attorney and await his neurological improvement to determine DNR status and other important decisions. 02.12.2020: Respiratory: Patient has significant hypoxemia which is improved. His chest x- ray appeared worse yesterday but given his transition to pressure support and reduction in FiO2 in conjunction with stabilization after self extubation, it would appear that clinically he is improving. We will continue diuresis today and discontinue all excess IV fluids. Given the fact that he does have COVID and they do have a prolonged alveolar process have increased his Decadron to twice a day at 4 mg. Standard doses for COVID are now at 6 to 8 mg and will continue this. This will also assure that the patient does not develop any adrenal insufficiency. We will continue to provide supportive care with high fl ow to prevent any atelectasis which will occur with discontinuation of positive pressure ventilation. Will need to monitor closely for recrudescence. Infectious: Patient has been on prolonged antibiotics and will discontinue in the next 24 hours. Given his chest x-ray findings yesterday will reevaluate chest x-ray and determine if antibiotics are needed. Unfortunately procalcitonin does not return in a timely fashion and would be unhelpful with the decision-making process. Cardiac: Patient's previous echocardiogram did not show a reduction in EF. This echocardiogram was done in December 2019 which did show an ejection fraction of 55 to 60%. There was pseudonormalization of left ventricular relaxation with a grade 2 diastolic dysfunction noted. Will continue diuresis. Hematologic: Patient has anemia. He has been started on hematopoietic stimulating agent and iron. I have ordered an iron profile. His MCV is not low to suggest iron deficiency anemia. We will continue to monitor. His hemoglobin has dropped to below 7 and will transfuse today. Endocrine: We will continue to monitor glucose with Decadron therapy. Renal: Patient has acute on chronic renal failure. His creatinine has improved with diuresis. We will continue to monitor with continued diuretic therapy. Discontinue IV fluids. He does have generalized anasarca which is reflective of his previous septic state, critical illness and renal dysfunction Metabolic: Continue to monitor and treat electrolyte abnormalities. Currently does not require dialysis and will remove the dialysis catheter today after the heparin has been held for 90 minutes. Alimentary: No active gastrointestinal issues. Will need to evaluate his ability to swallow for nutritional support. Neurologic: Patient does have critical illness related acute metabolic encephalopathy. Will wean Precedex. Sedation/analgesia: Discontinue fentanyl after extubation. Watch for narcotic withdrawal. Continue with dexmedetomidine and as needed analgesia and anxiolytics of the non-benzodiazepine form Lines/Tubes: Dialysis catheter has been in since February 01, 2020. We will removed today Other/family: Patient does not have a medical power of finance attorney and no emergency contacts are listed. When he is able and stable we will try to determine medical power of finance attorney for any decisions that it may be required. Will discuss with case management on the best way to obtain this. Critical Time Critical Time (minutes): 40 Level of Care: ICU Anticipated discharge: Acute Rehab Anticipated DC Timeframe: within 48 hours, when bed available -: 1. The care of a critical patient is a dynamic process. This note is a branch customer service representative synopsis but static in nature. The timeframe for treatments give n in order is not necessarily the actual time these treatments may have been done. 2. This patient requires critical care secondary to ongoing requirements for therapy not offered or safe outside the critical care environment. Transfer to a lower level of care will result in altered life or limb morbidity and mortality. 3. Multidisciplinary rounds completed. 4. ABCDE bundle addressed.
[2020-02-16 19:40] LABS: ARTERIAL BLOOD BASE EXCESS -4.2 mmol/L; ARTERIAL BLOOD H2CO3 1.05 mmol/L (1.05-1.35); ARTERIAL BLOOD HCO3 20.3 mmol/L (20-24); ARTERIAL BLOOD O2 SATURATION 97.1 % (94-98); ARTERIAL BLOOD PH 7.38 (7.35-7.45); ARTERIAL BLOOD TOTAL CO2 21.4 mmol/L (23-27)
[2020-02-16 19:41] LABS: ARTERIAL BLOOD FIO2 45%
[2020-02-17] MEDS: INSULIN REG, HUMAN 100 UNIT/ML 3 ML VIAL (PYX) SUBCUT SCH ×4 (00:02→17:30)
--- NOTE | 2020-02-17 01:49 | XCELERA REPORT ---
[address] [address] Transthoracic Echocardiogram Report Name: FREDDIE LAZO JR Gopi Age: 60 yrs Gender: Male : 1960 Patient Status: Inpatient Patient Location: ICU^605^A Study Date: 02/16/2020 06:19 PM Height: 67 in Weight: 146 lb BSA: 1.8 m2 Procedure: A two-dimensional transthoracic echocardiogram with color flow and Doppler was performed. Study Quality: Poor. Poor endocardial visualisation/. Reason For Study: covid myocarditis History: covid myocarditis. Ordering Physician: ANAHI YEBOAH Performed By: Maria Alejandra Montero Interpretation Summary Upper normal to mildly dilated LV.No LVH.Probably moderate diffuse hypokinesis , with probably moderately reduced LVEF of 40% to 45%.Mild LV diastolic dysfunction by tissue dopplers/ Probably no ASD,VSD , or PFO seen. The right ventricle is not well visualized secondary to technical limitations The right atrium is normal. The left atrial size is normal. There is no evidence of mitral valve prolapse. There is no vegetation seen on the mitral valve. There is no mitral valve stenosis. There is no aortic valvular vegetation. There is no aortic valve stenosis There is no LVOT obstruction. There is no tricuspid stenosis. There is a trace amount of tricuspid regurgitation Tricuspid regurgitation jet envelope not well defined to measure RV systolic pressure accurately. There is no pulmonic valvular stenosis. There is a trace amount of pulmonic regurgitation The aortic root is not well visualized but is probably normal size. The inferior vena cava appeared normal and decreased > 50% with respiration (RAP 5-10 mmHg) There is no pericardial effusion. MMode/2D Measurements & Calculations RVDd: 3.3 cm LVIDd: 5.2 cm FS: 31.3 % Ao root diam: 3.3 cm IVSd: 0.91 cm LVIDs: 3.6 cm EDV(Teich): 129.4 ml Ao root area: 8.4 cm2 LVPWd: 1.1 cm ESV(Teich): 53.4 ml LA dimension: 3.6 cm EF(Teich): 58.7 % Doppler Measurements & Calculations MV E max adali: MV P1/2t max adali: Ao V2 max: LV V1 max P.8 cm/sec 132.8 cm/sec 139.1 cm/sec 4.2 mmHg MV A max adali: MV P1/2t: 88.5 msec Ao max PG: LV V1 max: 104.6 cm/sec MVA(P1/2t): 2.5 cm2 7.7 mmHg 102.2 cm/sec MV E/A: 1.2 MV dec slope: 439.9 cm/sec2 MV dec time: 0.21 sec PA V2 max: MV P1/2t-pr_phl: 85.4 cm/sec 88.5 msec PA max P.9 mmHg Left Ventricle Upper normal to mildly dilated LV.No LVH.Probably moderate diffuse hypokinesis , with probably moderately reduced LVEF of 40% to 45%.Mild LV diastolic dysfunction by tissue dopplers/. There is no thrombus. Probably no ASD,VSD , or PFO seen. Right Ventricle The right ventricle is not well visualized secondary to technical limitations. Atria The right atrium is normal. The left atrial size is normal. Mitral Valve There is no evidence of mitral valve prolapse. There is no vegetation seen on the mitral valve. There is no mitral valve stenosis. There is a trace to mild amount of mitral regurgitation. Aortic Valve There is no aortic valvular vegetation. There is no aortic valve stenosis. There is no LVOT obstruction. No aortic regurgitation is present. Tricuspid Valve There is no tricuspid stenosis. There is a trace amount of tricuspid regurgitation. Tricuspid regurgitation jet envelope not well defined to measure RV systolic pressure accurately. Pulmonic Valve There is no pulmonic valvular stenosis. There is a trace amount of pulmonic regurgitation. Great Vessels The aortic root is not well visualized but is probably normal size. The inferior vena cava appeared normal and decreased > 50% with respiration (RAP 5-10 mmHg). Effusions There is no pericardial effusion. : ANAHI YEBOAH Lakshmi
[2020-02-17 05:12] LABS: HEMATOCRIT 29.7 % (37.9-51.0); HEMOGLOBIN 9.8 g/dL (13.5-17.0); MEAN CORPUSCULAR HEMOGLOBIN 29.3 pg (27.0-33.4); MEAN CORPUSCULAR HGB CONC 32.9 g/dL (32.0-36.0); MEAN CORPUSCULAR VOLUME 89 fl (80-97); PLATELET COUNT 342 10^3/uL (150-450); RED BLOOD COUNT 3.34 10^6/uL (4.35-5.55); RED CELL DISTRIBUTION WIDTH 15.3 % (11.5-14.0); WHITE BLOOD COUNT 20.5 10^3/uL (4.0-10.5)
[2020-02-17 05:28] LABS: ABSOLUTE LYMPHOCYTES# (MANUAL) 0.8 10^3/uL (0.5-4.7); ABSOLUTE MONOCYTES # (MANUAL) 0.8 10^3/uL (0.1-1.4); BASOPHILS % (MANUAL) 0 % (0-2); EOSINOPHILS % (MANUAL) 0 % (0-6); LYMPHOCYTES % (MANUAL) 4 % (13-45); MONOCYTES % (MANUAL) 4 % (3-13); NUCLEATED RED BLOOD CELLS 2 /100 WBC (0); SEGMENTED NEUTROPHILS % (MAN) 92 % (42-78); TOTAL CELLS COUNTED 100
[2020-02-17 05:29] LABS: ANISOCYTOSIS 1+; PLATELET COMMENT ADEQUATE
[2020-02-17 05:34] LABS: ALBUMIN 2.9 g/dL (3.5-5.0); ALKALINE PHOSPHATASE 85 U/L (38-126); ANION GAP 8 (5-19); ASPARTATE AMINO TRANSFERASE 15 U/L (17-59); BILIRUBIN,TOTAL 0.4 mg/dL (0.2-1.3); BLOOD UREA NITROGEN 104 mg/dL (7-20); CALCIUM 9.3 mg/dL (8.4-10.2); CARBON DIOXIDE 24 mmol/L (22-30); CHLORIDE 120 mmol/L (98-107); GLUCOSE 250 mg/dL (75-110); PHOSPHORUS 3.8 mg/dL (2.5-4.5); POTASSIUM 4.7 mmol/L (3.6-5.0); TOTAL PROTEIN 6.5 g/dL (6.3-8.2)
[2020-02-17] MEDS: CALCIUM ACETATE 667 MG CAPSULE NG SCH ×4 (05:43→17:30)
[2020-02-17] MEDS: BUDESONIDE NEB 0.25 MG/2 ML AMPUL NEB SCH ×2 (08:41→20:38)
--- NOTE | 2020-02-17 09:41 | RADIOLOGY REPORT (SQ) ---
EXAM DESCRIPTION: CHEST SINGLE VIEW IMAGES COMPLETED DATE/TIME: 02/17/2020 6:34 am REASON FOR STUDY: covid pneumonia COMPARISON: 02/16/2020. EXAM PARAMETERS: NUMBER OF VIEWS: One view. TECHNIQUE: Single frontal radiographic view of the chest acquired. RADIATION DOSE: NA LIMITATIONS: None. FINDINGS: LUNGS AND PLEURA: Diffuse bilateral airspace disease, more prominent in the upper lobes. No pleural effusion. No pneumothorax. MEDIASTINUM AND HILAR STRUCTURES: No masses. Contour normal. HEART AND VASCULAR STRUCTURES: Heart normal in size. Normal vasculature. BONES: No acute findings. HARDWARE: Nasogastric tube. OTHER: No other significant finding. IMPRESSION: NO CHANGE IN APPEARANCE OF THE CHEST. TECHNICAL DOCUMENTATION: JOB ID: [id number] [employer] ([employer] All Rights Reserved Reading location - IP/workstation name: [email or web address]
[2020-02-17] MEDS: METOPROLOL TARTRATE 25 MG TABLET NG SCH ×3 (10:43→22:14)
[2020-02-17] MEDS: PANTOPRAZOLE SODIUM 40 MG VIAL IV SCH (10:44)
[2020-02-17] MEDS: INSULIN GLARGINE,HUM.REC.ANLOG 1,000 UNIT/10 ML VIAL SUBCUT SCH ×3 (10:44→22:13)
[2020-02-17] MEDS: DEXAMETHASONE SOD PHOSPHATE INJ 4 MG/1 ML VIAL IV SCH ×2 (10:44→21:46)
--- NOTE | 2020-02-17 11:35 | PDOC CRITICAL CARE PROG REPORT ---
General Date:: 02/17/20 ICU Day:: 24 Hospital Day:: 24 Resuscitation Status: Full Code Medical Power of Hydrodynamicist: None Events in the past 12 to 24 Hours:: Lower FiO2. More responsive. Review of systems relevant to events:: Pulmonary, neurological. Reason for ICU Addmission:: Acute hypoxic respiratory failure with pneumonia from COVID 19 - Medications: Medications reviewed and adjusted accordingly: Yes Vasopressors:: None Sedation:: None Physical Exam Vital Signs: Temp Pulse Resp BP Pulse Ox 99.1 F 98 21 H 138/74 H 98 02/15/20 16:00 02/17/20 08:42 02/17/20 08:42 02/17/20 05:39 02/17/20 08:42 Intake & Output 02/16/20 02/17/20 02/18/20 06:59 06:59 06:59 Intake Total 190 1070 Output Total 1110 1060 750 Balance -920 10 -750 Weight 66.3 kg Weight/Height Weight 66.3 kg Height 5 ft 7 in General appearance: PRESENT: no acute distress, cooperative, disheveled, thin Head exam: PRESENT: atraumatic, normocephalic Eye exam: PRESENT: conjunctiva pink, EOMI, PERRLA. ABSENT: scleral icterus Ear exam: PRESENT: normal external ear exam Mouth exam: PRESENT: moist, tongue midline Respiratory exam: PRESENT: decreased breath sounds Cardiovascular exam: PRESENT: RRR. ABSENT: diastolic murmur, rubs, systolic murmur GI/Abdominal exam: PRESENT: normal bowel sounds, soft. ABSENT: distended, guarding, mass, organolmegaly, rebound, tenderness Rectal exam: PRESENT: deferred Extremities exam: PRESENT: full ROM. ABSENT: calf tenderness, clubbing, pedal edema Musculoskeletal exam: PRESENT: normal inspection Neurological exam: PRESENT: alert, altered, awake, CN II-XII grossly intact, other - He answers some questions appropriately, others he just stares. Psychiatric exam: PRESENT: anxious Skin exam: PRESENT: dry, intact, warm. ABSENT: cyanosis, rash Laboratory/Radiographs Laboratory Results: 02/17/20 04:59 02/17/20 04:59 02/16/20 02/16/20 02/17/20 12:13 19:17 04:59 WBC 20.5 H RBC 3.34 L Hgb 9.8 L Hct 29.7 L MCV 89 MCH 29.3 MCHC 32.9 RDW 15.3 H Plt Count 342 Seg Neutrophils % Not Reportable Carbonic Acid 1.05 HCO3/H2CO3 Ratio 19:1 ABG pH 7.38 ABG pCO2 35.0 ABG pO2 94.0 ABG HCO3 20.3 ABG O2 Saturation 97.1 ABG Base Excess -4.2 FiO2 45% Sodium Potassium Chloride Carbon Dioxide Anion Gap BUN Creatinine Est GFR ( Amer) Glucose Calcium Phosphorus Magnesium Ferritin 424.00 Total Bilirubin AST Alkaline Phosphatase C-Reactive Protein 24.2 H Total Protein Albumin 02/17/20 04:59 WBC RBC Hgb Hct MCV MCH MCHC RDW Plt Count Seg Neutrophils % Carbonic Acid HCO3/H2CO3 Ratio ABG pH ABG pCO2 ABG pO2 ABG HCO3 ABG O2 Saturation ABG Base Excess FiO2 Sodium 151.9 H Potassium 4.7 Chloride 120 H Carbon Dioxide 24 Anion Gap 8 BUN 104 H Creatinine 2.82 H Est GFR ( Amer) 28 L Glucose 250 H Calcium 9.3 Phosphorus 3.8 Magnesium 2.4 H Ferritin Total Bilirubin 0.4 AST 15 L Alkaline Phosphatase 85 C-Reactive Protein Total Protein 6.5 Albumin 2.9 L 01/24/20 01/24/20 01/24/20 00:03 00:03 04:20 Creatine Kinase 80 CK-MB (CK-2) 0.63 Troponin I 0.132 0.133 NT-Pro-B Natriuret Pep 51783 H 01/24/20 01/24/20 01/24/20 10:43 17:19 23:06 Creatine Kinase CK-MB (CK-2) Troponin I 0.114 0.079 0.075 NT-Pro-B Natriuret Pep 68383 H 01/30/20 01/31/20 02/01/20 03:45 05:39 06:14 Creatine Kinase CK-MB (CK-2) Troponin I NT-Pro-B Natriuret Pep 63271 H 71119 H 80919 H 02/02/20 04:24 Creatine Kinase CK-MB (CK-2) Troponin I NT-Pro-B Natriuret Pep 27139 H Impressions: Chest X-Ray 02/17/20 06:00 IMPRESSION: CXR is improved. All labs, radiographs, diagnostic studies and EKGs were personally reviewed: Yes In addition, reports of radiographic and diagnostic studies were read: Yes Assessment and Plan - Diagnosis (1) COVID-19 Is this a current diagnosis for this admission?: Yes (2) Acute CHF Qualifiers: Heart failure type: unspecified Qualified Code(s): I50.9 - Heart failure, unspecified Is this a current diagnosis for this admission?: Yes Plan: Currently his lungs sound and look dry on CXR. (3) Acute hypoxemic respiratory failure Is this a current diagnosis for this admission?: Yes Plan: Nearly resolved down to 35% on bipap. (4) CKD stage 4 due to type 2 diabetes mellitus Is this a current diagnosis for this admission?: Yes Plan: HD catheter out. U/O good. GFR unchanged (5) Chronic pain Qualifiers: Chronic pain type: other chronic pain Qualified Code(s): G89.29 - Other chronic pain Is this a current diagnosis for this admission?: Yes Plan: Stable (6) Diabetes mellitus type 2 in nonobese Is this a current diagnosis for this admission?: Yes Plan: Controlled Plan Summary: When he is off bipap hope to downgrade. Critical Time Critical Time (minutes): 35 Level of Care: ICU Anticipated discharge: SNF Anticipated DC Timeframe: Other -: 1. The care of a critical patient is a dynamic process. This note is a customer development representative synopsis but static in nature. The timeframe for treatments given in order is not necessarily the actual time these treatments may have been done. 2. This patient requires critical care secondary to ongoing requirements for therapy not offered or safe outside the critical care environment. Transfer to a lower level of care will result in altered life or limb morbidity and morta lity. 3. Multidisciplinary rounds completed. 4. ABCDE bundle addressed.
[2020-02-17] MEDS ORDERED: 1/2 NORMAL SALINE 1,000 ML IV ONE (11:46)
[2020-02-17] MEDS: 1/2 NORMAL SALINE 1,000 ML IV PRN (15:37)
[2020-02-17 16:16] LABS: ARTERIAL BLOOD BASE EXCESS -1.4 mmol/L; ARTERIAL BLOOD FIO2 4L; ARTERIAL BLOOD H2CO3 1.22 mmol/L (1.05-1.35); ARTERIAL BLOOD HCO3 23.5 mmol/L (20-24); ARTERIAL BLOOD O2 SATURATION 89.4 % (94-98); ARTERIAL BLOOD PCO2 40.6 mmHg (35-45); ARTERIAL BLOOD PH 7.38 (7.35-7.45); ARTERIAL BLOOD PO2 57.3 mmHg (80-100); ARTERIAL BLOOD TOTAL CO2 24.8 mmol/L (23-27)
--- NOTE | 2020-02-17 16:16 | RADIOLOGY REPORT (SQ) ---
EXAM DESCRIPTION: KUB/ABDOMEN (SINGLE VIEW) IMAGES COMPLETED DATE/TIME: 02/17/2020 3:48 pm REASON FOR STUDY: NG Tube Placement COMPARISON: Earlier exam same date NUMBER OF VIEWS: One view. TECHNIQUE: Supine radiographic image of the abdomen acquired. LIMITATIONS: None. FINDINGS: BOWEL GAS PATTERN: No dilated loops identified. CALCIFICATIONS: No suspicious calcifications. SOFT TISSUES: No gross mass or suggestion of organomegaly. HARDWARE: NG tube tip overlies the cardiac portion of the stomach near the GE junction similar to the earlier study. BONES: No acute fracture. No worrisome bone lesions. OTHER: No other significant finding. IMPRESSION: NO RADIOGRAPHIC EVIDENCE FOR ACUTE ABDOMINAL DISEASE. NG tube tip overlies the cardiac portion of the stomach near the GE junction similar to the earlier pau limon. TECHNICAL DOCUMENTATION: JOB ID: [id number] 2010 [employer]- All Rights Reserved Reading location - IP/workstation name: [email or web address]
[2020-02-17] MEDS: FAMOTIDINE 20 MG TABLET NG SCH ×3 (17:27→22:14)
[2020-02-18] MEDS: CALCIUM ACETATE 667 MG CAPSULE NG SCH ×4 (00:04→19:58)
[2020-02-18] MEDS: 1/2 NORMAL SALINE 1,000 ML IV PRN ×2 (00:09→19:59)
[2020-02-18] MEDS: INSULIN REG, HUMAN 100 UNIT/ML 3 ML VIAL (PYX) SUBCUT SCH ×4 (00:17→19:56)
[2020-02-18 05:24] LABS: HEMATOCRIT 27.7 % (37.9-51.0); MEAN CORPUSCULAR HEMOGLOBIN 28.9 pg (27.0-33.4); MEAN CORPUSCULAR HGB CONC 32.5 g/dL (32.0-36.0); MEAN CORPUSCULAR VOLUME 89 fl (80-97); PLATELET COUNT 327 10^3/uL (150-450); RED BLOOD COUNT 3.12 10^6/uL (4.35-5.55); RED CELL DISTRIBUTION WIDTH 15.3 % (11.5-14.0); WHITE BLOOD COUNT 21.2 10^3/uL (4.0-10.5)
[2020-02-18 05:45] LABS: ANION GAP 5 (5-19); BLOOD UREA NITROGEN 96 mg/dL (7-20); CALCIUM 9.1 mg/dL (8.4-10.2); CARBON DIOXIDE 24 mmol/L (22-30); CHLORIDE 120 mmol/L (98-107); GLUCOSE 263 mg/dL (75-110); POTASSIUM 4.3 mmol/L (3.6-5.0)
[2020-02-18 05:46] LABS: ABSOLUTE LYMPHOCYTES# (MANUAL) 1.3 10^3/uL (0.5-4.7); ABSOLUTE MONOCYTES # (MANUAL) 0.8 10^3/uL (0.1-1.4); BAND NEUTROPHILS % (MANUAL) 2 % (3-5); BASOPHILS % (MANUAL) 0 % (0-2); EOSINOPHILS % (MANUAL) 0 % (0-6); LYMPHOCYTES % (MANUAL) 6 % (13-45); MONOCYTES % (MANUAL) 4 % (3-13); SEGMENTED NEUTROPHILS % (MAN) 88 % (42-78); TOTAL CELLS COUNTED 100
[2020-02-18 05:47] LABS: ANISOCYTOSIS 1+; PLATELET COMMENT ADEQUATE; POLYCHROMASIA 1+
[2020-02-18] MEDS: BUDESONIDE NEB 0.25 MG/2 ML AMPUL NEB SCH ×2 (08:32→20:42)
[2020-02-18] MEDS: DEXAMETHASONE SOD PHOSPHATE INJ 4 MG/1 ML VIAL IV SCH ×2 (11:38→21:37)
[2020-02-18] MEDS: INSULIN GLARGINE,HUM.REC.ANLOG 1,000 UNIT/10 ML VIAL SUBCUT SCH ×2 (11:39→21:38)
[2020-02-18] MEDS: METOPROLOL TARTRATE 25 MG TABLET NG SCH ×2 (11:39→21:38)
[2020-02-18] MEDS: FAMOTIDINE 20 MG TABLET NG SCH ×2 (11:40→21:39)
[2020-02-18 11:59] LABS: ARTERIAL BLOOD BASE EXCESS -0.3 mmol/L; ARTERIAL BLOOD FIO2 100%; ARTERIAL BLOOD H2CO3 1.77 mmol/L (1.05-1.35); ARTERIAL BLOOD O2 SATURATION 91.7 % (94-98); ARTERIAL BLOOD PCO2 58.7 mmHg (35-45); ARTERIAL BLOOD PH 7.28 (7.35-7.45); ARTERIAL BLOOD PO2 70.3 mmHg (80-100); ARTERIAL BLOOD TOTAL CO2 28.8 mmol/L (23-27)
--- NOTE | 2020-02-18 12:07 | PDOC CRITICAL CARE PROG REPORT ---
General Date:: 02/18/20 ICU Day:: Hospital Day:: 25 Resuscitation Status: Full Code Medical Power of Milking Machine Operator: None Events in the past 12 to 24 Hours:: Fluctuating O2 saturations and FiO2. Review of systems relevant to events:: Pulmonary Reason for ICU Addmission:: Acute hypoxic respiratory failure with pneumonia from COVID 19 - Medications: Medications reviewed and adjusted accordingly: Yes Vasopressors:: None Sedation:: None Physical Exam Vital Signs: Temp Pulse Resp BP Pulse Ox 99.1 F 95 21 H 124/91 H 92 02/15/20 16:00 02/18/20 08:34 02/18/20 08:34 02/18/20 05:42 02/18/20 08:34 Intake & Output 02/17/20 02/18/20 02/19/20 06:59 06:59 06:59 Intake Total 1070 1247 1000 Output Total 1060 2795 Balance 10 -1548 1000 Weight 66.3 kg Weight/Height Weight 66.3 kg Height 5 ft 7 in General appearance: PRESENT: no acute distress, disheveled, thin Head exam: PRESENT: atraumatic, normocephalic Eye exam: PRESENT: conjunctiva pink, EOMI, PERRLA. ABSENT: scleral icterus Ear exam: PRESENT: normal external ear exam Mouth exam: PRESENT: moist, tongue midline Respiratory exam: PRESENT: crackles - Dry and faint-improved. ABSENT: rales, rhonchi, wheezes GI/Abdominal exam: PRESENT: normal bowel sounds, soft. ABSENT: distended, guarding, mass, organolmegaly, rebound, tenderness Rectal exam: PRESENT: deferred Gentrourinary exam: PRESENT: indwelling catheter Extremities exam: PRESENT: full ROM. ABSENT: calf tenderness, clubbing, pedal edema Skin exam: PRESENT: dry, intact, warm. ABSENT: cyanosis, rash Tubes/Lines: PRESENT: Central Line, Nasogastic Tube Laboratory/Radiographs Laboratory Results: 02/18/20 05:16 02/18/20 05:16 02/17/20 02/18/20 02/18/20 15:56 05:16 05:16 WBC 21.2 H RBC 3.12 L Hgb 9.0 L Hct 27.7 L MCV 89 MCH 28.9 MCHC 32.5 RDW 15.3 H Plt Count 327 Seg Neutrophils % Not Reportable Carbonic Acid 1.22 HCO3/H2CO3 Ratio 19:1 ABG pH 7.38 ABG pCO2 40.6 ABG pO2 57.3 L ABG HCO3 23.5 ABG O2 Saturation 89.4 L ABG Base Excess -1.4 FiO2 4L Sodium 149.1 H Potassium 4.3 Chloride 120 H Carbon Dioxide 24 Anion Gap 5 BUN 96 H Creatinine 2.32 H Est GFR ( Amer) 35 L Glucose 263 H Calcium 9.1 01/24/20 01/24/20 01/24/20 00:03 00:03 04:20 Creatine Kinase 80 CK-MB (CK-2) 0.63 Troponin I 0.132 0.133 NT-Pro-B Natriuret Pep 17728 H 01/24/20 01/24/20 01/24/20 10:43 17:19 23:06 Creatine Kinase CK-MB (CK-2) Troponin I 0.114 0.079 0.075 NT-Pro-B Natriuret Pep 02347 H 01/30/20 01/31/20 02/01/20 03:45 05:39 06:14 Creatine Kinase CK-MB (CK-2) Troponin I NT-Pro-B Natriuret Pep 15696 H 49397 H 04725 H 02/02/20 04:24 Creatine Kinase CK-MB (CK-2) Troponin I NT-Pro-B Natriuret Pep 41285 H Impressions: Chest X-Ray 02/17/20 06:00 IMPRESSION: NO CHANGE IN APPEARANCE OF THE CHEST. KUB X-Ray 02/17/20 15:30 IMPRESSION: NO RADIOGRAPHIC EVIDENCE FOR ACUTE ABDOMINAL DISEASE. NG tube tip overlies the cardiac portion of the stomach near the GE junction sim ilar to the earlier study. All labs, radiographs, diagnostic studies and EKGs were personally reviewed: Yes In addition, reports of radiographic and diagnostic studies were read: Yes Assessment and Plan - Diagnosis (1) COVID-19 Is this a current diagnosis for this admission?: Yes Plan: This is the main reason for continued ICU need. He has gone from bipap, high flow to N/C back to bipap in 24 hours or more. Until he settles on a fairly steady O2 requirement and steady O2 saturating which has been from 86-94% in 24 hours, he will need an ICU level of care. (2) Acute CHF Qualifiers: Heart failure type: unspecified Qualified Code(s): I50.9 - Heart failure, unspecified Is this a current diagnosis for this admission?: Yes Plan: For now inactive. (3) Acute hypoxemic respiratory failure Is this a current diagnosis for this admission?: Yes Plan: See #1. (4) CKD stage 4 due to type 2 diabetes mellitus Is this a current diagnosis for this admission?: Yes Plan: Continues to slowly improve. GFR still 29. (5) Chronic pain Qualifiers: Chronic pain type: other chronic pain Qualified Code(s): G89.29 - Other chronic pain Is this a current diagnosis for this admission?: Yes Plan: Stable. (6) Diabetes mellitus type 2 in nonobese Is this a current diagnosis for this admission?: Yes Plan: Controlled even on TF. Plan Summary: As previously stated a more steady oxygenation and requirement is need before transfer. Continue working with PT. Critical Time Critical Time (minutes): 35 Level of Care: ICU Anticipated discharge: SNF Anticipated DC Timeframe: Other -: 1. The care of a critical patient is a dynamic process. This note is a bilingual call center representative synopsis but static in nature. The timeframe for treatments given in order is not necessarily the actual time these treatments may have been done. 2. This patient requires critical care secondary to ongoing requirements for therapy not offered or safe outside the critical care environment. Transfer to a lower level of care will result in altered life or limb morbidity and mortality. 3. Multidisciplinary rounds completed. 4. ABCDE bundle addressed.
[2020-02-18] MEDS ORDERED: ETOMIDATE INJ/PF 20 MG/10 ML SDV IV ONE (17:29)
[2020-02-18 17:38] LABS: ARTERIAL BLOOD BASE EXCESS -2.7 mmol/L; ARTERIAL BLOOD H2CO3 2.13 mmol/L (1.05-1.35); ARTERIAL BLOOD HCO3 26.3 mmol/L (20-24); ARTERIAL BLOOD O2 SATURATION 92.8 % (94-98); ARTERIAL BLOOD PO2 81.6 mmHg (80-100); ARTERIAL BLOOD TOTAL CO2 28.4 mmol/L (23-27)
[2020-02-18 17:39] LABS: ARTERIAL BLOOD FIO2 100%
[2020-02-18 17:41] LABS: ARTERIAL BLOOD PCO2 70.8 mmHg (35-45); ARTERIAL BLOOD PH 7.19 (7.35-7.45)
[2020-02-18] MEDS ORDERED: DEXMEDETOMIDINE IN 0.9 % NACL 400 MCG/100 ML RTUPB IV ONE (17:52)
--- NOTE | 2020-02-18 18:28 | RADIOLOGY REPORT (SQ) ---
EXAM DESCRIPTION: CHEST SINGLE VIEW IMAGES COMPLETED DATE/TIME: 02/18/2020 6:11 pm REASON FOR STUDY: ETT placement verification COMPARISON: 02/17/2020 TECHNIQUE: Single frontal radiographic view of the chest acquired. NUMBER OF VIEWS: One view. LIMITATIONS: None. FINDINGS: LUNGS AND PLEURA: No pneumothorax. New right basilar dense consolidation. Slight improve d aeration in the left mid lung. No significant Pleural effusion. MEDIASTINUM AND HILAR STRUCTURES: Stable. HEART AND VASCULAR STRUCTURES: Stable. BONES: No acute findings. HARDWARE: Endotracheal tube tip overlies the lower 3rd of the trachea approximately 3 cm above the le adali of the laura. Right IJ central venous catheter tip overlies the right atrium. Nasogastric cath eter tip is beyond the inferior margin of the image passed the lower esophagus. OTHER: No other significant finding. IMPRESSION: New right basilar dense consolidation. Endotracheal tube tip overlies the lower 3rd of t he trachea approximately 3 cm above the level of the laura. Right IJ central venous catheter tip ov erlies the right atrium. Nasogastric catheter tip is beyond the inferior margin of the image passed the lower esophagus. TECHNICAL DOCUMENTATION: JOB ID: [id number] 2010 [employer]- All Rights Reserved Reading location - IP/workstation name: [email or web address]
--- NOTE | 2020-02-18 19:03 | Progress Note ---
Provider Note Provider Note: Patient intubated with glidescope after suddenly becoming unresponsive. Number 7.5 ETT used without sedation. RIJ TLC placed sterilly confirmed both by CXR
[2020-02-18] MEDS: DEXMEDETOMIDINE IN 0.9 % NACL 400 MCG/100 ML RTUPB IV PRN (21:52)
[2020-02-19 00:43] LABS: ARTERIAL BLOOD BASE EXCESS 0.7 mmol/L; ARTERIAL BLOOD H2CO3 0.97 mmol/L (1.05-1.35); ARTERIAL BLOOD HCO3 23.8 mmol/L (20-24); ARTERIAL BLOOD O2 SATURATION 96.2 % (94-98); ARTERIAL BLOOD PCO2 32.3 mmHg (35-45); ARTERIAL BLOOD PH 7.49 (7.35-7.45); ARTERIAL BLOOD PO2 75.8 mmHg (80-100); ARTERIAL BLOOD TOTAL CO2 24.8 mmol/L (23-27)
[2020-02-19 00:44] LABS: ARTERIAL BLOOD FIO2 60%
[2020-02-19] MEDS: INSULIN REG, HUMAN 100 UNIT/ML 3 ML VIAL (PYX) SUBCUT SCH ×5 (02:07→23:47)
[2020-02-19] MEDS: CALCIUM ACETATE 667 MG CAPSULE NG SCH ×5 (02:07→23:47)
[2020-02-19 04:36] LABS: BLOOD UREA NITROGEN 95 mg/dL (7-20); CALCIUM 8.8 mg/dL (8.4-10.2); CARBON DIOXIDE 26 mmol/L (22-30); CHLORIDE 120 mmol/L (98-107); GLUCOSE 115 mg/dL (75-110); POTASSIUM 4.6 mmol/L (3.6-5.0)
[2020-02-19 04:41] LABS: ANION GAP 3 (5-19)
[2020-02-19] MEDS: DEXMEDETOMIDINE IN 0.9 % NACL 400 MCG/100 ML RTUPB IV PRN ×3 (06:10→23:48)
[2020-02-19] MEDS: BUDESONIDE NEB 0.25 MG/2 ML AMPUL NEB SCH ×2 (08:21→20:11)
[2020-02-19] MEDS: ALBUTEROL SULFATE 0.083% NEB 2.5 MG/3 ML AMPUL NEB PRN ×2 (08:21→20:12)
--- NOTE | 2020-02-19 09:18 | PDOC CRITICAL CARE PROG REPORT ---
General Date:: 02/19/20 ICU Day:: 25 Ventilator Day:: 1 Hospital Day:: 25 Resuscitation Status: Full Code Medical Power of Auto Painter: None Events in the past 12 to 24 Hours:: Reintubated Review of systems relevant to events:: Pulmonary Reason for ICU Addmission:: Acute hypoxic respiratory failure with pneumonia from COVID 19. Now intubated for the 3rd time. - Medications: Medications reviewed and adjusted accordingly: Yes Vasopressors:: None Sedation:: Diprivan Physical Exam Vital Signs: Temp Pulse Resp BP Pulse Ox 100.9 F H 91 20 107/65 93 02/19/20 01:56 02/19/20 01:56 02/19/20 08:43 02/19/20 08:43 02/19/20 08:43 Intake & Output 02/18/20 02/19/20 02/20/20 06:59 06:59 06:59 Intake Total 1247 2092 Output Total 2795 1710 125 Balance -1548 382 -125 Weight 65.6 kg Weight/Height Weight 65.6 kg Height 5 ft 7 in General appearance: PRESENT: no acute distress, thin Head exam: PRESENT: atraumatic, normocephalic Eye exam: PRESENT: conjunctiva pink, EOMI, PERRLA. ABSENT: scleral icterus Ear exam: PRESENT: normal external ear exam Mouth exam: PRESENT: moist, tongue midline Respiratory exam: PRESENT: rhonchi - Mild, unlabored, wheezes - Also mild Cardiovascular exam: PRESENT: RRR. ABSENT: diastolic murmur, rubs, systolic murmur GI/Abdominal exam: PRESENT: normal bowel sounds, soft. ABSENT: distended, guarding, mass, organolmegaly, rebound, tenderness Gentrourinary exam: PRESENT: indwelling catheter Extremities exam: PRESENT: full ROM. ABSENT: calf tenderness, clubbing, pedal edema Musculoskeletal exam: PRESENT: normal inspection, other - With cox boots Neurological exam: PRESENT: altered, CN II-XII grossly intact, other - Sedated but arousable. Skin exam: PRESENT: dry, intact, warm. ABSENT: cyanosis, rash Tubes/Lines: PRESENT: Endotracheal Tube, Central Line, Nasogastic Tube Laboratory/Radiographs Laboratory Results: 02/18/20 05:16 02/19/20 03:40 02/18/20 02/18/20 02/19/20 11:29 17:19 00:25 Carbonic Acid 1.77 H 2.13 H 0.97 L HCO3/H2CO3 Ratio 15:1 12:1 24:1 ABG pH 7.28 L 7.19 L* 7.49 H ABG pCO2 58.7 H 70.8 H* 32.3 L ABG pO2 70.3 L 81.6 75.8 L ABG HCO3 27.0 H 26.3 H 23.8 ABG O2 Saturation 91.7 L 92.8 L 96.2 ABG Base Excess -0.3 -2.7 0.7 FiO2 100% 100% 60% Sodium Potassium Chloride Carbon Dioxide Anion Gap BUN Creatinine Est GFR ( Amer) Glucose Calcium 02/19/20 03:40 Carbonic Acid HCO3/H2CO3 Ratio ABG pH ABG pCO2 ABG pO2 ABG HCO3 ABG O2 Saturation ABG Base Excess FiO2 Sodium 148.9 H Potassium 4.6 Chloride 120 H Carbon Dioxide 26 Anion Gap 3 L BUN 95 H Creatinine 2.16 H Est GFR ( Amer) 38 L Glucose 115 H Calcium 8.8 01/24/20 01/24/20 01/24/20 00:03 00:03 04:20 Creatine Kinase 80 CK-MB (CK-2) 0.63 Troponin I 0.132 0.133 NT-Pro-B Natriuret Pep 51567 H 01/24/20 01/24/20 01/24/20 10:43 17:19 23:06 Creatine Kinase CK-MB (CK-2) Troponin I 0.114 0.079 0.075 NT-Pro-B Natriuret Pep 00455 H 01/30/20 01/31/20 02/01/20 03:45 05:39 06:14 Creatine Kinase CK-MB (CK-2) Troponin I NT-Pro-B Natriuret Pep 96252 H 88941 H 73064 H 02/02/20 04:24 Creatine Kinase CK-MB (CK-2) Troponin I NT-Pro-B Natriuret Pep 82869 H Impressions: KUB X-Ray 02/17/20 15:30 IMPRESSION: NO RADIOGRAPHIC EVIDENCE FOR ACUTE ABDOMINAL DISEASE. NG tube tip overlies the cardiac portion of the stomach near the GE junction similar to the earlier study. Chest X-Ray 08/02/20 00:00 IMPRESSION: New right basilar dense consolidation. Endotracheal tube tip overl ies the lower 3rd of the trachea approximately 3 cm above the level of the laura. Right IJ central venous catheter tip overlies the right atrium. Nasogastric catheter tip is beyond the inferior margin of the image passed the lower esophagus. All labs, radiographs, diagnostic studies and EKGs were personally reviewed: Yes In addition, reports of radiographic and diagnostic studies were read: Yes Assessment and Plan - Diagnosis (1) COVID-19 Is this a current diagnosis for this admission?: Yes Plan: This has been improving and then worsening. He was reintubated yesterday more of mucus plugging. He may have aspirated om TF. Ideally we would like to extubate soon. (2) Acute CHF Qualifiers: Heart failure type: unspecified Qualified Code(s): I50.9 - Heart failure, unspecified Is this a current diagnosis for this admission?: Yes Plan: Does not seem to be active. (3) Acute hypoxemic respiratory failure Is this a current diagnosis for this admission?: Yes Plan: He was never hypoxic yesterday. (4) CKD stage 4 due to type 2 diabetes mellitus Is this a current diagnosis for this admission?: Yes (5) Chronic pain Qualifiers: Chronic pain type: other chronic pain Qualified Code(s): G89.29 - Other chronic pain Is this a current diagnosis for this admission?: Yes Plan: Stable. (6) Diabetes mellitus type 2 in nonobese Is this a current diagnosis for this admission?: Yes Plan: Controlled Plan Summary: Wean as much as possible and hope to extubate. Critical Time Critical Time (minutes): 35 Level of Care: ICU Anticipated discharge: SNF Anticipated DC Timeframe: Other -: 1. The care of a critical patient is a dynamic process. This note is a retail customer service representative synopsis but static in nature. The timeframe for treatments given in order is not necessarily the actual time these treatments may have been done. 2. This patient requires critical care secondary to ongoing requirements for therapy not offered or safe outside the critical care environment. Transfer to a lower level of care will result in altered life or limb morbidity and mortality. 3. Multidisciplinary rounds completed. 4. ABCDE bundle addressed.
[2020-02-19] MEDS: DEXAMETHASONE SOD PHOSPHATE INJ 4 MG/1 ML VIAL IV SCH ×2 (09:52→21:45)
[2020-02-19] MEDS: INSULIN GLARGINE,HUM.REC.ANLOG 1,000 UNIT/10 ML VIAL SUBCUT SCH ×2 (09:55→21:51)
[2020-02-19] MEDS: FAMOTIDINE 20 MG TABLET NG SCH (09:56)
[2020-02-19] MEDS: METOPROLOL TARTRATE 25 MG TABLET NG SCH ×2 (09:56→21:45)
[2020-02-19] MEDS: DEXTROSE 50%-WATER 25 GM/50 ML DISP.SYRIN IV PRN (12:20)
[2020-02-19] MEDS: 1/2 NORMAL SALINE 1,000 ML IV PRN (17:59)
[2020-02-19] MEDS: FAMOTIDINE INJ/PF 20 MG/2 ML SDV IV SCH (21:45)
[2020-02-19] MEDS ORDERED: INSULIN GLARGINE,HUM.REC.ANLOG 1,000 UNIT/10 ML VIAL (PYX) SUBCUT ONE (21:50)
[2020-02-20 04:55] LABS: HEMATOCRIT 23.8 % (37.9-51.0); MEAN CORPUSCULAR HEMOGLOBIN 28.9 pg (27.0-33.4); MEAN CORPUSCULAR HGB CONC 32.3 g/dL (32.0-36.0); MEAN CORPUSCULAR VOLUME 89 fl (80-97); PLATELET COUNT 261 10^3/uL (150-450); RED BLOOD COUNT 2.66 10^6/uL (4.35-5.55); RED CELL DISTRIBUTION WIDTH 15.4 % (11.5-14.0); WHITE BLOOD COUNT 11.9 10^3/uL (4.0-10.5)
[2020-02-20 05:08] LABS: BLOOD UREA NITROGEN 88 mg/dL (7-20); CALCIUM 8.8 mg/dL (8.4-10.2); GLUCOSE 191 mg/dL (75-110); POTASSIUM 4.8 mmol/L (3.6-5.0)
[2020-02-20 05:13] LABS: CARBON DIOXIDE 26 mmol/L (22-30); CHLORIDE 118 mmol/L (98-107)
[2020-02-20 05:21] LABS: ANION GAP 3 (5-19)
[2020-02-20 05:31] LABS: ABSOLUTE LYMPHOCYTES# (MANUAL) 0.6 10^3/uL (0.5-4.7); ABSOLUTE MONOCYTES # (MANUAL) 0.2 10^3/uL (0.1-1.4); BASOPHILS % (MANUAL) 0 % (0-2); EOSINOPHILS % (MANUAL) 0 % (0-6); LYMPHOCYTES % (MANUAL) 5 % (13-45); MONOCYTES % (MANUAL) 2 % (3-13); SEGMENTED NEUTROPHILS % (MAN) 93 % (42-78); TOTAL CELLS COUNTED 100
[2020-02-20 05:34] LABS: ANISOCYTOSIS SLIGHT; OVALOCYTES SLIGHT; PLATELET COMMENT ADEQUATE; POIKILOCYTOSIS SLIGHT; POLYCHROMASIA SLIGHT; TOXIC GRANULATION 1+
[2020-02-20 05:41] LABS: HEMOGLOBIN 7.7 g/dL (13.5-17.0)
[2020-02-20] MEDS: CALCIUM ACETATE 667 MG CAPSULE NG SCH ×3 (06:04→17:42)
[2020-02-20] MEDS: INSULIN REG, HUMAN 100 UNIT/ML 3 ML VIAL (PYX) SUBCUT SCH ×3 (06:04→17:42)
[2020-02-20] MEDS: ALBUTEROL SULFATE 0.083% NEB 2.5 MG/3 ML AMPUL NEB PRN (07:59)
[2020-02-20] MEDS: BUDESONIDE NEB 0.25 MG/2 ML AMPUL NEB SCH ×2 (07:59→20:45)
[2020-02-20] MEDS: DEXMEDETOMIDINE IN 0.9 % NACL 400 MCG/100 ML RTUPB IV PRN ×2 (08:26→17:37)
[2020-02-20] MEDS: DEXAMETHASONE SOD PHOSPHATE INJ 4 MG/1 ML VIAL IV SCH ×2 (09:54→21:44)
[2020-02-20] MEDS: FAMOTIDINE INJ/PF 20 MG/2 ML SDV IV SCH ×2 (09:55→21:44)
[2020-02-20] MEDS: METOPROLOL TARTRATE 25 MG TABLET NG SCH ×2 (09:58→21:44)
[2020-02-20] MEDS: 1/2 NORMAL SALINE 1,000 ML IV PRN (10:05)
[2020-02-20 10:06] LABS: HEMATOCRIT 23.7 % (37.9-51.0); MEAN CORPUSCULAR HEMOGLOBIN 29.3 pg (27.0-33.4); MEAN CORPUSCULAR HGB CONC 32.8 g/dL (32.0-36.0); MEAN CORPUSCULAR VOLUME 89 fl (80-97); PLATELET COUNT 286 10^3/uL (150-450); RED BLOOD COUNT 2.66 10^6/uL (4.35-5.55); RED CELL DISTRIBUTION WIDTH 15.3 % (11.5-14.0); WHITE BLOOD COUNT 10.7 10^3/uL (4.0-10.5)
[2020-02-20 10:40] LABS: HEMOGLOBIN 7.8 g/dL (13.5-17.0)
[2020-02-20] MEDS: INSULIN GLARGINE,HUM.REC.ANLOG 1,000 UNIT/10 ML VIAL SUBCUT SCH ×2 (11:11→21:43)
--- NOTE | 2020-02-20 12:21 | PDOC CRITICAL CARE PROG REPORT ---
General Date:: 02/20/20 ICU Day:: 27 Ventilator Day:: 2 Hospital Day:: 27 Resuscitation Status: Full Code Medical Power of Director Of Physician Practices: None Events in the past 12 to 24 Hours:: Able to wean vent some. Review of systems relevant to events:: Pulmonary Reason for ICU Addmission:: Acute hypoxic respiratory failure with pneumonia from COVID 19. Now intubated for the 3rd time. - Medications: Medications reviewed and adjusted accordingly: Yes Vasopressors:: None Sedation:: Precedex Physical Exam Vital Signs: Temp Pulse Resp BP Pulse Ox 99.7 F 85 18 126/75 H 93 02/20/20 10:00 02/20/20 10:00 02/20/20 11:01 02/20/20 11:00 02/20/20 11:30 Intake & Output 02/19/20 02/20/20 02/21/20 06:59 06:59 06:59 Intake Total 2092 1418 1015 Output Total 1710 1770 420 Balance 382 -352 595 Weight 65.6 kg 64.4 kg Weight/Height Weight 64.4 kg Height 5 ft 7 in General appearance: PRESENT: no acute distress, thin Head exam: PRESENT: atraumatic, normocephalic Eye exam: PRESENT: conjunctiva pink, EOMI, PERRLA. ABSENT: scleral icterus Ear exam: PRESENT: normal external ear exam Mouth exam: PRESENT: moist, tongue midline Respiratory exam: PRESENT: clear to auscultation yousif, decreased breath sounds. ABSENT: rales, rhonchi, wheezes Cardiovascular exam: PRESENT: RRR. ABSENT: diastolic murmur, rubs, systolic murmur GI/Abdominal exam: PRESENT: normal bowel sounds, soft. ABSENT: distended, guarding, mass, organolmegaly, rebound, tenderness Rectal exam: PRESENT: deferred Gentrourinary exam: PRESENT: indwelling catheter Extremities exam: PRESENT: full ROM. ABSENT: calf tenderness, clubbing, pedal edema Musculoskeletal exam: PRESENT: normal inspection Neurological exam: PRESENT: altered, CN II-XII grossly intact, other - Sedated Skin exam: PRESENT: dry, intact, warm. ABSENT: cyanosis, rash Tubes/Lines: PRESENT: Endotracheal Tube, Central Line, Nasogastic Tube Laboratory/Radiographs Laboratory Results: 02/20/20 09:45 02/20/20 04:36 02/20/20 02/20/20 02/20/20 04:36 04:36 09:45 WBC 11.9 H 10.7 H RBC 2.66 L 2.66 L Hgb 7.7 L 7.8 L Hct 23.8 L 23.7 L MCV 89 89 MCH 28.9 29.3 MCHC 32.3 32.8 RDW 15.4 H 15.3 H Plt Count 261 286 Seg Neutrophils % Not Reportable Sodium 146.7 H Potassium 4.8 Chloride 118 H Carbon Dioxide 26 Anion Gap 3 L BUN 88 H Creatinine 2.25 H Est GFR ( Amer) 36 L Glucose 191 H Calcium 8.8 01/24/20 01/24/20 01/24/20 00:03 00:03 04:20 Creatine Kinase 80 CK-MB (CK-2) 0.63 Troponin I 0.132 0.133 NT-Pro-B Natriuret Pep 45399 H 01/24/20 01/24/20 01/24/20 10:43 17:19 23:06 Creatine Kinase CK-MB (CK-2) Troponin I 0.114 0.079 0.075 NT-Pro-B Natriuret Pep 00110 H 01/30/20 01/31/20 02/01/20 03:45 05:39 06:14 Creatine Kinase CK-MB (CK-2) Troponin I NT-Pro-B Natriuret Pep 21745 H 39957 H 81521 H 02/02/20 04:24 Creatine Kinase CK-MB (CK-2) Troponin I NT-Pro-B Natriuret Pep 06064 H Impressions: KUB X-Ray 02/17/20 15:30 IMPRESSION: NO RADIOGRAPHIC EVIDENCE FOR ACUTE ABDOMINAL DISEASE. NG tube tip overlies the cardiac portion of the stomach near the GE junction similar to the earlier study. Chest X-Ray 02/18/20 00:00 IMPRESSION: New right basilar dense consolidation. Endotracheal tube tip overl ies the lower 3rd of the trachea approximately 3 cm above the level of the laura. Right IJ central venous catheter tip overlies the right atrium. Nasogastric catheter tip is beyond the inferior margin of the image passed the lower esophagus. All labs, radiographs, diagnostic studies and EKGs were personally reviewed: Yes In addition, reports of radiographic and diagnostic studies were read: Yes Assessment and Plan - Diagnosis (1) COVID-19 Is this a current diagnosis for this admission?: Yes Plan: Improving, CXR better. Behaving like mucous plugging not COVID. (2) Acute CHF Qualifiers: Heart failure type: unspecified Qualified Code(s): I50.9 - Heart failure, unspecified Is this a current diagnosis for this admission?: Yes Plan: Not active (3) Acute hypoxemic respiratory failure Is this a current diagnosis for this admission?: Yes Plan: Resolved. Begin weaning from vent. (4) CKD stage 4 due to type 2 diabetes mellitus Is this a current diagnosis for this admission?: Yes Plan: GFR improved to 30. (5) Chronic pain Qualifiers: Chronic pain type: other chronic pain Qualified Code(s): G89.29 - Other chronic pain Is this a current diagnosis for this admission?: Yes Plan: Stable (6) Diabetes mellitus type 2 in nonobese Is this a current diagnosis for this admission?: Yes Plan: Controlled. Plan Summary: Wean vent and hope to extubate in the next 24 hours. Critical Time Critical Time (minutes): 35 Level of Care: ICU Anticipated discharge: SNF Anticipated DC Timeframe: Other -: 1. The care of a critical patient is a dynamic process. This note is a public health representative synopsis but static in nature. The timeframe for treatments given in order is not necessarily the actual time these treatments may have been done. 2. This patient requires critical care secondary to ongoing requirements for therapy not offered or safe outside the critical care environment. Transfer to a lower level of care will result in altered life or limb morbidity and mortality. 3. Multidisciplinary rounds completed. 4. ABCDE bundle addressed.
[2020-02-20] MEDS: HEPARIN SOD (PORCINE) 5,000 UNIT/ML 1 ML VIAL SUBCUT SCH ×2 (15:39→21:43)
[2020-02-21] MEDS: CALCIUM ACETATE 667 MG CAPSULE NG SCH ×5 (01:14→23:05)
[2020-02-21] MEDS: INSULIN REG, HUMAN 100 UNIT/ML 3 ML VIAL (PYX) SUBCUT SCH ×5 (01:14→23:05)
[2020-02-21] MEDS: DEXMEDETOMIDINE IN 0.9 % NACL 400 MCG/100 ML RTUPB IV PRN ×2 (02:15→10:53)
[2020-02-21] MEDS: HEPARIN SOD (PORCINE) 5,000 UNIT/ML 1 ML VIAL SUBCUT SCH ×3 (05:26→21:29)
[2020-02-21 06:04] LABS: HEMATOCRIT 24.2 % (37.9-51.0); MEAN CORPUSCULAR HEMOGLOBIN 29.5 pg (27.0-33.4); MEAN CORPUSCULAR HGB CONC 33.1 g/dL (32.0-36.0); MEAN CORPUSCULAR VOLUME 89 fl (80-97); PLATELET COUNT 287 10^3/uL (150-450); RED BLOOD COUNT 2.72 10^6/uL (4.35-5.55); RED CELL DISTRIBUTION WIDTH 15.2 % (11.5-14.0); WHITE BLOOD COUNT 10.4 10^3/uL (4.0-10.5)
[2020-02-21 06:09] LABS: ANION GAP 5 (5-19); BLOOD UREA NITROGEN 82 mg/dL (7-20); CALCIUM 8.7 mg/dL (8.4-10.2); CARBON DIOXIDE 25 mmol/L (22-30); CHLORIDE 114 mmol/L (98-107); GLUCOSE 229 mg/dL (75-110); POTASSIUM 5.1 mmol/L (3.6-5.0)
[2020-02-21 06:27] LABS: ABSOLUTE LYMPHOCYTES# (MANUAL) 0.6 10^3/uL (0.5-4.7); ABSOLUTE MONOCYTES # (MANUAL) 0.4 10^3/uL (0.1-1.4); BASOPHILS % (MANUAL) 0 % (0-2); EOSINOPHILS % (MANUAL) 0 % (0-6); LYMPHOCYTES % (MANUAL) 6 % (13-45); MONOCYTES % (MANUAL) 4 % (3-13); SEGMENTED NEUTROPHILS % (MAN) 90 % (42-78); TOTAL CELLS COUNTED 100
[2020-02-21 06:29] LABS: ANISOCYTOSIS SLIGHT; PLATELET COMMENT ADEQUATE; POLYCHROMASIA SLIGHT; TOXIC GRANULATION SLIGHT; TOXIC VACUOLATION PRESENT
[2020-02-21] MEDS: ALBUTEROL SULFATE 0.083% NEB 2.5 MG/3 ML AMPUL NEB PRN (08:22)
[2020-02-21] MEDS: BUDESONIDE NEB 0.25 MG/2 ML AMPUL NEB SCH ×2 (08:22→20:18)
[2020-02-21] MEDS: DEXAMETHASONE SOD PHOSPHATE INJ 4 MG/1 ML VIAL IV SCH ×2 (10:37→21:29)
[2020-02-21] MEDS: FAMOTIDINE INJ/PF 20 MG/2 ML SDV IV SCH ×2 (10:37→21:30)
[2020-02-21] MEDS: METOPROLOL TARTRATE 25 MG TABLET NG SCH ×2 (10:37→21:29)
[2020-02-21] MEDS: INSULIN GLARGINE,HUM.REC.ANLOG 1,000 UNIT/10 ML VIAL SUBCUT SCH ×2 (10:38→21:29)
[2020-02-21] MEDS: RINGERS SOLUTION,LACTATED 1,000 ML IV PRN ×2 (10:39→21:28)
[2020-02-22] MEDS: INSULIN REG, HUMAN 100 UNIT/ML 3 ML VIAL (PYX) SUBCUT SCH ×3 (05:13→19:02)
[2020-02-22] MEDS: HEPARIN SOD (PORCINE) 5,000 UNIT/ML 1 ML VIAL SUBCUT SCH ×3 (05:13→22:59)
[2020-02-22] MEDS: CALCIUM ACETATE 667 MG CAPSULE NG SCH ×3 (05:13→18:57)
[2020-02-22 06:10] LABS: BLOOD UREA NITROGEN 77 mg/dL (7-20); CALCIUM 8.7 mg/dL (8.4-10.2); CHLORIDE 112 mmol/L (98-107); GLUCOSE 195 mg/dL (75-110); POTASSIUM 4.9 mmol/L (3.6-5.0)
[2020-02-22 06:15] LABS: ANION GAP 6 (5-19); CARBON DIOXIDE 25 mmol/L (22-30)
[2020-02-22] MEDS: RINGERS SOLUTION,LACTATED 1,000 ML IV PRN ×2 (07:52→11:16)
[2020-02-22] MEDS: BUDESONIDE NEB 0.25 MG/2 ML AMPUL NEB SCH ×2 (08:52→21:00)
[2020-02-22] MEDS: INSULIN GLARGINE,HUM.REC.ANLOG 1,000 UNIT/10 ML VIAL SUBCUT SCH ×2 (10:39→22:59)
[2020-02-22] MEDS: DEXAMETHASONE SOD PHOSPHATE INJ 4 MG/1 ML VIAL IV SCH ×2 (10:39→22:59)
[2020-02-22] MEDS: METOPROLOL TARTRATE 25 MG TABLET NG SCH ×2 (10:39→23:00)
[2020-02-22] MEDS: FAMOTIDINE INJ/PF 20 MG/2 ML SDV IV SCH ×2 (10:40→23:00)
--- NOTE | 2020-02-22 11:15 | PDOC CRITICAL CARE PROG REPORT ---
General Date:: 02/21/20 ICU Day:: 28 Hospital Day:: 28 Resuscitation Status: Full Code Medical Power of Fiberglass Boat Maker: None Events in the past 12 to 24 Hours:: Extubated today Review of systems relevant to events:: Pulmonary Reason for ICU Addmission:: Extubated today and doing well thus far. - Medications: Medications reviewed and adjusted accordingly: Yes Vasopressors:: None Sedation:: None Physical Exam Vital Signs: Temp Pulse Resp BP Pulse Ox 100.8 F H 93 16 149/89 H 96 02/22/20 06:00 02/22/20 08:52 02/22/20 08:52 02/22/20 06:00 02/22/20 08:52 Intake & Output 02/21/20 02/22/20 02/23/20 06:59 06:59 06:59 Intake Total 1765 2478 Output Total 2805 2025 Balance -1040 453 Weight 64.6 kg 65 kg Weight/Height Weight 65 kg Height 5 ft 7 in General appearance: PRESENT: no acute distress, thin, well-developed, well-nourished Head exam: PRESENT: atraumatic, normocephalic Eye exam: PRESENT: conjunctiva pink, EOMI, PERRLA. ABSENT: scleral icterus Ear exam: PRESENT: normal external ear exam Mouth exam: PRESENT: moist, tongue midline Respiratory exam: PRESENT: clear to auscultation yousif. ABSENT: rales, rhonchi, wheezes Cardiovascular exam: PRESENT: RRR. ABSENT: diastolic murmur, rubs, systolic murmur GI/Abdominal exam: PRESENT: normal bowel sounds, soft. ABSENT: distended, guarding, mass, organolmegaly, rebound, tenderness Rectal exam: PRESENT: deferred Gentrourinary exam: PRESENT: indwelling catheter Extremities exam: PRESENT: full ROM, other - Thin with evidence of muscle wasting. ABSENT: calf tenderness, clubbing, pedal edema Musculoskeletal exam: PRESENT: normal inspection Neurological exam: PRESENT: alert, awake, oriented to person, oriented to place, oriented to time, oriented to situation, CN II-XII grossly intact. ABSENT: motor sensory deficit Skin exam: PRESENT: dry, intact, warm. ABSENT: cyanosis, rash Tubes/Lines: PRESENT: Nasogastic Tube Laboratory/Radiographs Laboratory Results: 02/21/20 05:45 02/22/20 05:35 02/22/20 05:35 Sodium 142.8 Potassium 4.9 Chloride 112 H Carbon Dioxide 25 Anion Gap 6 BUN 77 H Creatinine 2.28 H Est GFR ( Amer) 36 L Glucose 195 H Calcium 8.7 01/24/20 01/24/20 01/24/20 00:03 00:03 04:20 Creatine Kinase 80 CK-MB (CK-2) 0.63 Troponin I 0.132 0.133 NT-Pro-B Natriuret Pep [id number] H 01/24/20 01/24/20 01/24/20 10:43 17:19 23:06 Creatine Kinase CK-MB (CK-2) Troponin I 0.114 0.079 0.075 NT-Pro-B Natriuret Pep [id number] H 01/30/20 01/31/20 02/01/20 03:45 05:39 06:14 Creatine Kinase CK-MB (CK-2) Troponin I NT-Pro-B Natriuret Pep 98277 H 33701 H 77450 H 02/02/20 04:24 Creatine Kinase CK-MB (CK-2) Troponin I NT-Pro-B Natriuret Pep [id number] H Impressions: KUB X-Ray 02/17/20 15:30 IMPRESSION: NO RADIOGRAPHIC EVIDENCE FOR ACUTE ABDOMINAL DISEASE. NG tube tip overlies the cardiac portion of the stomach near the GE junction similar to the earlier study. Chest X-Ray 02/18/20 00:00 IMPRESSION: New right basilar dense consolidation. Endotracheal tube tip overlies the lower 3rd of the trachea approximately 3 cm above the level of the laura. Right IJ central venous catheter tip overlies the right atrium. Nasogastric catheter tip is beyond the inferior margin of the image passed the lower esophagus. All labs, radiographs, diagnostic studies and EKGs were personally reviewed: Yes In addition, reports of radiographic and diagnostic studies were read: Yes Assessment and Plan - Diagnosis (1) COVID-19 Is this a current diagnosis for this admission?: Yes Plan: Improving (2) Acute CHF Qualifiers: Heart failure type: unspecified Qualified Code(s): I50.9 - Heart failure, unspecified Is this a current diagnosis for this admission?: Yes Plan: Resolved (3) Acute hypoxemic respiratory failure Is this a current diagnosis for this admission?: Yes Plan: This seems to be more related to mucous plugging. His lungs are clear. His RSBI was 31 and we have proceeded with extubation (4) CKD stage 4 due to type 2 diabetes mellitus Is this a current diagnosis for this admission?: Yes Plan: Improved slightly (5) Chronic pain Qualifiers: Chronic pain type: other chronic pain Qualified Code(s): G89.29 - Other chronic pain Is this a current diagnosis for this admission?: Yes Plan: He has complained of pain. (6) Diabetes mellitus type 2 in nonobese Is this a current diagnosis for this admission?: Yes Plan: Controlled under 200. Plan Summary: Continue post extubation care. He looks better clinically. May downgrade in AM. Critical Time Critical Time (minutes): 35 Level of Care: ICU Anticipated discharge: SNF Anticipated DC Timeframe: Other -: 1. The care of a critical patient is a dynamic process. This note is a veterans contact representative synopsis but static in nature. The timeframe for treatments given in order is not necessarily the actual time these treatments may have been done. 2. This patient requires critical care secondary to ongoing requirements for therapy not offered or safe outside the critical care environment. Transfer to a lower level of care will result in altered life or limb morbidity and mortality. 3. Multidisciplinary rounds completed. 4. ABCDE bundle addressed.
--- NOTE | 2020-02-22 11:38 | PDOC CRITICAL CARE PROG REPORT ---
General Date:: 02/22/20 ICU Day:: Hospital Day:: Resuscitation Status: Full Code Medical Power of Toolmaker Helper: None Events in the past 12 to 24 Hours:: Still extubated and doing well. Review of systems relevant to events:: Pulmonary Reason for ICU Addmission:: Extubated today and doing well thus far. - Medications: Medications reviewed and adjusted accordingly: Yes Vasopressors:: None Sedation:: None Physical Exam Vital Signs: Temp Pulse Resp BP Pulse Ox 100.4 F 98 17 152/92 H 97 02/22/20 08:00 02/22/20 10:00 02/22/20 10:00 02/22/20 10:00 02/22/20 10:00 Intake & Output 02/21/20 02/22/20 02/23/20 06:59 06:59 06:59 Intake Total 1765 2478 1000 Output Total 2805 2025 300 Balance -1040 453 700 Weight 64.6 kg 65 kg Weight/Height Weight 65 kg Height 5 ft 7 in General appearance: PRESENT: no acute distress, cooperative, thin Head exam: ABSENT: atraumatic, normocephalic, other Eye exam: PRESENT: conjunctiva pink, EOMI, PERRLA. ABSENT: scleral icterus Ear exam: PRESENT: normal external ear exam Mouth exam: PRESENT: moist, tongue midline Respiratory exam: PRESENT: clear to auscultation yousif. ABSENT: rales, rhonchi, wheezes Cardiovascular exam: PRESENT: RRR. ABSENT: diastolic murmur, rubs, systolic murmur GI/Abdominal exam: PRESENT: normal bowel sounds, soft. ABSENT: distended, guarding, mass, organolmegaly, rebound, tenderness Rectal exam: PRESENT: deferred Gentrourinary exam: PRESENT: indwelling catheter Extremities exam: PRESENT: full ROM. ABSENT: calf tenderness, clubbing, pedal edema Musculoskeletal exam: PRESENT: normal inspection Neurological exam: PRESENT: alert, awake, oriented to person, oriented to place, oriented to time, oriented to situation, CN II-XII grossly intact, other - Said by nursing to have periods of confusion. ABSENT: motor sensory deficit Skin exam: PRESENT: dry, intact, warm. ABSENT: cyanosis, rash Tubes/Lines: PRESENT: Nasogastic Tube Laboratory/Radiographs Laboratory Results: 02/21/20 05:45 02/22/20 05:35 02/22/20 05:35 Sodium 142.8 Potassium 4.9 Chloride 112 H Carbon Dioxide 25 Anion Gap 6 BUN 77 H Creatinine 2.28 H Est GFR ( Amer) 36 L Glucose 195 H Calcium 8.7 01/24/20 01/24/20 01/24/20 00:03 00:03 04:20 Creatine Kinase 80 CK-MB (CK-2) 0.63 Troponin I 0.132 0.133 NT-Pro-B Natriuret Pep [id number] H 01/24/20 01/24/20 01/24/20 10:43 17:19 23:06 Creatine Kinase CK-MB (CK-2) Troponin I 0.114 0.079 0.075 NT-Pro-B Natriuret Pep 45088 H 01/30/20 01/31/20 02/01/20 03:45 05:39 06:14 Creatine Kinase CK-MB (CK-2) Troponin I NT-Pro-B Natriuret Pep 06191 H 14398 H 66170 H 02/02/20 04:24 Creatine Kinase CK-MB (CK-2) Troponin I NT-Pro-B Natriuret Pep 17693 H Impressions: KUB X-Ray 02/17/20 15:30 IMPRESSION: NO RADIOGRAPHIC EVIDENCE FOR ACUTE ABDOMINAL DISEASE. NG tube tip overlies the cardiac portion of the stomach near the GE junction similar to the earlier study. Chest X-Ray 02/18/20 00:00 IMPRESSION: New right basilar dense consolidation. Endotracheal tube tip overlies the lower 3rd of the trachea approximately 3 cm above the level of the laura. Right IJ central venous catheter tip overlies the right atrium. Nasogastric catheter tip is beyond the inferior margin of the image passed the lower esophagus. All labs, radiographs, diagnostic studies and EKGs were personally reviewed: Yes In addition, reports of radiographic and diagnostic studies were read: Yes Assessment and Plan - Diagnosis (1) COVID-19 Is this a current diagnosis for this admission?: Yes Plan: Improving. Lung sounds are better oxygenation good. (2) Acute CHF Qualifiers: Heart failure type: unspecified Qualified Code(s): I50.9 - Heart failure, unspecified Is this a current diagnosis for this admission?: Yes Plan: Resolved (3) Acute hypoxemic respiratory failure Is this a current diagnosis for this admission?: Yes Plan: Resolved (4) CKD stage 4 due to type 2 diabetes mellitus Is this a current diagnosis for this admission?: Yes Plan: Resolved (5) Chronic pain Qualifiers: Chronic pain type: other chronic pain Qualified Code(s): G89.29 - Other ch ronic pain Is this a current diagnosis for this admission?: Yes Plan: Not active (6) Diabetes mellitus type 2 in nonobese Is this a current diagnosis for this admission?: Yes Plan: BG in 200s Plan Summary: Plan to downgrade Wednesday Critical Time Critical Time (minutes): 35 Level of Care: ICU Anticipated discharge: SNF Anticipated DC Timeframe: Other -: 1. The care of a critical patient is a dynamic process. This note is a patient care representative synopsis but static in nature. The timeframe for treatments gi aimee in order is not necessarily the actual time these treatments may have been done. 2. This patient requires critical care secondary to ongoing requirements for therapy not offered or safe outside the critical care environment. Transfer to a lower level of care will result in altered life or limb morbidity and mortality. 3. Multidisciplinary rounds completed. 4. ABCDE bundle addressed.
[2020-02-23] MEDS: INSULIN REG, HUMAN 100 UNIT/ML 3 ML VIAL (PYX) SUBCUT SCH ×4 (01:29→16:59)
[2020-02-23] MEDS: CALCIUM ACETATE 667 MG CAPSULE NG SCH ×4 (01:32→22:58)
[2020-02-23] MEDS: HEPARIN SOD (PORCINE) 5,000 UNIT/ML 1 ML VIAL SUBCUT SCH ×3 (05:47→22:58)
[2020-02-23 06:28] LABS: HEMATOCRIT 27.7 % (37.9-51.0); HEMOGLOBIN 8.9 g/dL (13.5-17.0); MEAN CORPUSCULAR HEMOGLOBIN 28.2 pg (27.0-33.4); MEAN CORPUSCULAR HGB CONC 31.9 g/dL (32.0-36.0); MEAN CORPUSCULAR VOLUME 88 fl (80-97); PLATELET COUNT 426 10^3/uL (150-450); RED BLOOD COUNT 3.14 10^6/uL (4.35-5.55); RED CELL DISTRIBUTION WIDTH 15.3 % (11.5-14.0); WHITE BLOOD COUNT 17.3 10^3/uL (4.0-10.5)
[2020-02-23 06:47] LABS: ANION GAP 7 (5-19); BLOOD UREA NITROGEN 72 mg/dL (7-20); CALCIUM 8.9 mg/dL (8.4-10.2); CARBON DIOXIDE 24 mmol/L (22-30); CHLORIDE 112 mmol/L (98-107); GLUCOSE 127 mg/dL (75-110); POTASSIUM 4.6 mmol/L (3.6-5.0)
[2020-02-23 08:10] LABS: ABSOLUTE LYMPHOCYTES# (MANUAL) 0.7 10^3/uL (0.5-4.7); ABSOLUTE MONOCYTES # (MANUAL) 1.6 10^3/uL (0.1-1.4); BAND NEUTROPHILS % (MANUAL) 1 % (3-5); BASOPHILS % (MANUAL) 0 % (0-2); EOSINOPHILS % (MANUAL) 1 % (0-6); LYMPHOCYTES % (MANUAL) 4 % (13-45); MONOCYTES % (MANUAL) 9 % (3-13); SEGMENTED NEUTROPHILS % (MAN) 85 % (42-78); TOTAL CELLS COUNTED 100
[2020-02-23 08:11] LABS: ANISOCYTOSIS SLIGHT; PLATELET COMMENT ADEQUATE; POLYCHROMASIA SLIGHT; TOXIC GRANULATION SLIGHT
[2020-02-23] MEDS: ALBUTEROL SULFATE 0.083% NEB 2.5 MG/3 ML AMPUL NEB PRN (08:29)
[2020-02-23] MEDS: BUDESONIDE NEB 0.25 MG/2 ML AMPUL NEB SCH ×2 (08:29→20:33)
--- NOTE | 2020-02-23 10:39 | PDOC CRITICAL CARE PROG REPORT ---
General Date:: 02/23/20 ICU Day:: 30 Hospital Day:: 30 Resuscitation Status: Full Code Medical Power of Outreach Liaison: None Events in the past 12 to 24 Hours:: Maintain oxygenation, still altered Review of systems relevant to events:: Pulmonary, neurological. Reason for ICU Addmission:: Extubated today and doing well thus far. - Medications: Medications reviewed and adjusted accordingly: Yes Vasopressors:: None Sedation:: None Physical Exam Vital Signs: Temp Pulse Resp BP Pulse Ox 97.6 F 93 11 L 140/82 H 100 02/23/20 08:00 02/23/20 08:30 02/23/20 08:31 02/23/20 08:31 02/23/20 08:31 Intake & Output 02/22/20 02/23/20 02/24/20 06:59 06:59 06:59 Intake Total 2478 1340 Output Total 5 990 0 Balance 453 350 0 Weight 65 kg 64.9 kg Weight/Height Weight 64.9 kg Height 5 ft 7 in General appearance: PRESENT: no acute distress, disheveled, thin Head exam: PRESENT: atraumatic, normocephalic Eye exam: PRESENT: conjunctiva pink, EOMI, PERRLA. ABSENT: scleral icterus Ear exam: PRESENT: normal external ear exam Mouth exam: PRESENT: moist, tongue midline Respiratory exam: PRESENT: clear to auscultation yousif. ABSENT: rales, rhonchi, wheezes Cardiovascular exam: PRESENT: RRR. ABSENT: diastolic murmur, rubs, systolic murmur GI/Abdominal exam: PRESENT: normal bowel sounds, soft. ABSENT: distended, guarding, mass, organolmegaly, rebound, tenderness Rectal exam: PRESENT: deferred Gentrourinary exam: PRESENT: indwelling catheter Extremities exam: PRESENT: full ROM. ABSENT: calf tenderness, clubbing, pedal edema Neurological exam: PRESENT: alert, altered, awake, CN II-XII grossly intact, other - He is awake, can nod head to questions. Too weak to speak clearly Skin exam: PRESENT: dry, intact, warm. ABSENT: cyanosis, rash Tubes/Lines: PRESENT: Central Line Laboratory/Radiographs Laboratory Results: 02/23/20 06:00 02/23/20 06:00 02/23/20 02/23/20 06:00 06:00 WBC 17.3 H RBC 3.14 L Hgb 8.9 L Hct 27.7 L MCV 88 MCH 28.2 MCHC 31.9 L RDW 15.3 H Plt Count 426 Seg Neutrophils % Not Reportable Sodium 142.6 Potassium 4.6 Chloride 112 H Carbon Dioxide 24 Anion Gap 7 BUN 72 H Creatinine 2.00 H Est GFR ( Amer) 41 L Glucose 127 H Calcium 8.9 01/24/20 01/24/20 01/24/20 00:03 00:03 04:20 Creatine Kinase 80 CK-MB (CK-2) 0.63 Troponin I 0.132 0.133 NT-Pro-B Natriuret Pep 57530 H 01/24/20 01/24/20 01/24/20 10:43 17:19 23:06 Creatine Kinase CK-MB (CK-2) Troponin I 0.114 0.079 0.075 NT-Pro-B Natriuret Pep 98231 H 01/30/20 01/31/20 02/01/20 03:45 05:39 06:14 Creatine Kinase CK-MB (CK-2) Troponin I NT-Pro-B Natriuret Pep 02150 H 66667 H 64431 H 02/02/20 04:24 Creatine Kinase CK-MB (CK-2) Troponin I NT-Pro-B Natriuret Pep 66673 H Impressions: KUB X-Ray 02/17/20 15:30 IMPRESSION: NO RADIOGRAPHIC EVIDENCE FOR ACUTE ABDOMINAL DISEASE. NG tube tip overlies the cardiac portion of the stomach near the GE junction similar to the earlier study. Chest X-Ray 02/18/20 00:00 IMPRESSION: New right basilar dense consolidation. Endotracheal tube tip overlies the lower 3rd of the trachea approximately 3 cm above the level of the laura. Right IJ central venous catheter tip overlies the right atrium. Nasogastric catheter tip is beyond the inferior margin of the image passed the lower esophagus. All labs, radiographs, diagnostic studies and EKGs were personally reviewed: Yes In addition, reports of radiographic and diagnostic studies were read: Yes Assessment and Plan - Diagnosis (1) COVID-19 Is this a current diagnosis for this admission?: Yes Plan: Resolving (2) Acute CHF Qualifiers: Heart failure type: unspecified Qualified Code(s): I50.9 - Heart failure, unspecified Is this a current diagnosis for this admission?: Yes Plan: Resolved (3) Acute hypoxemic respiratory failure Is this a current diagnosis for this admission?: Yes Plan: Resolved. Still in need of O2 but on 4L N/C (4) CKD stage 4 due to type 2 diabetes mellitus Is this a current diagnosis for this admission?: Yes Plan: Stable (5) Chronic pain Qualifiers: Chronic pain type: other chronic pain Qualified Code(s): G89.29 - Other chronic pain Is this a current diagnosis for this admission?: Yes Plan: Not active (6) Diabetes mellitus type 2 in nonobese Is this a current diagnosis for this admission?: Yes Plan: Controlled. Plan Summary: Physical therapy. Needs to mobilize more. Hope that confusion will improve soon. Critical Time Critical Time (minutes): 35 Level of Care: IMCU Anticipated discharge: SNF Anticipated DC Timeframe: Other -: 1. The care of a critical patient is a dynamic process. This note is a practice representative synopsis but static in nature. The timeframe for treatments given in order is not necessarily the actual time these treatments may have been done. 2. This patient requires critical care secondary to ongoing requirements for therapy not offered or safe outside the critical care environment. Transfer to a lower level of care will result in altered life or limb morbidity and mortality. 3. Multidisciplinary rounds completed. 4. ABCDE bundle addressed.
[2020-02-23] MEDS: FAMOTIDINE INJ/PF 20 MG/2 ML SDV IV SCH (11:21)
[2020-02-23] MEDS: METOPROLOL TARTRATE 25 MG TABLET NG SCH ×2 (11:21→22:58)
[2020-02-23] MEDS: INSULIN GLARGINE,HUM.REC.ANLOG 1,000 UNIT/10 ML VIAL SUBCUT SCH ×2 (11:21→23:05)
[2020-02-23] MEDS: DEXAMETHASONE SOD PHOSPHATE INJ 4 MG/1 ML VIAL IV SCH ×2 (11:21→22:57)
--- NOTE | 2020-02-23 18:58 | RADIOLOGY REPORT (SQ) ---
EXAM DESCRIPTION: KUB/ABDOMEN (SINGLE VIEW) IMAGES COMPLETED DATE/TIME: 02/23/2020 5:39 pm REASON FOR STUDY: Placement of new NG tube. COMPARISON: 02/17/2020 NUMBER OF VIEWS: One view. TECHNIQUE: Supine radiographic image of the abdomen acquired. LIMITATIONS: None. FINDINGS: BOWEL GAS PATTERN: Normal bowel gas pattern. No dilated loops. CALCIFICATIONS: No suspicious calcifications. SOFT TISSUES: No gross mass or suggestion of organomegaly. HARDWARE: The NG tube is just inside the stomach. Approximately 8 cm of the tube is in the stomach. BONES: No acute fracture. No worrisome bone lesions. OTHER: No other significant finding. IMPRESSION: NG tube placement. TECHNICAL DOCUMENTATION: JOB ID: [id number] 2010 [employer]- All Rights Reserved Reading location - IP/workstation name: [email or web address]
[2020-02-23] MEDS ORDERED: INSULIN GLARGINE,HUM.REC.ANLOG 1,000 UNIT/10 ML VIAL (PYX) SUBCUT ONE (23:04)
[2020-02-23] MEDS: RINGERS SOLUTION,LACTATED 1,000 ML IV PRN (23:28)
[2020-02-24] MEDS: INSULIN REG, HUMAN 100 UNIT/ML 3 ML VIAL (PYX) SUBCUT SCH ×4 (01:19→17:01)
[2020-02-24] MEDS: CALCIUM ACETATE 667 MG CAPSULE NG SCH ×4 (01:22→17:01)
[2020-02-24] MEDS: HEPARIN SOD (PORCINE) 5,000 UNIT/ML 1 ML VIAL SUBCUT SCH ×3 (05:27→22:45)
[2020-02-24] MEDS: DEXTROSE 50%-WATER 25 GM/50 ML DISP.SYRIN IV PRN ×3 (05:44→23:18)
[2020-02-24] MEDS: BUDESONIDE NEB 0.25 MG/2 ML AMPUL NEB SCH ×2 (08:35→20:49)
[2020-02-24] MEDS: ALBUTEROL SULFATE 0.083% NEB 2.5 MG/3 ML AMPUL NEB PRN (08:35)
[2020-02-24] MEDS: DEXAMETHASONE SOD PHOSPHATE INJ 4 MG/1 ML VIAL IV SCH ×2 (09:03→22:43)
[2020-02-24] MEDS: METOPROLOL TARTRATE 25 MG TABLET NG SCH ×2 (09:04→22:30)
[2020-02-24] MEDS: INSULIN GLARGINE,HUM.REC.ANLOG 1,000 UNIT/10 ML VIAL SUBCUT SCH ×2 (09:04→22:35)
--- NOTE | 2020-02-24 16:01 | PDOC PROGRESS REPORT ---
Subjective Progress Note for:: 02/24/20 Subjective:: Still in restraints. Significant behavioral issues. He has pulled out his nasogastric tube previously. He is at risk for dislodging other indwelling devices. Reason For Visit: HYPOXEMIC RESPIRATORY FAILURE, HEMODYNAMIC Physical Exam Vital Signs: Temp Pulse Resp BP Pulse Ox 97.6 F 88 19 135/74 H 97 02/24/20 12:13 02/24/20 13:50 02/24/20 12:13 02/24/20 12:13 02/24/20 12:13 Intake & Output 02/23/20 02/24/20 02/25/20 06:59 06:59 06:59 Intake Total 1340 1063 Output Total 990 0 300 Balance 350 1063 -300 Weight 64.9 kg 68 kg General appearance: PRESENT: no acute distress Head exam: PRESENT: atraumatic, normocephalic Mouth exam: PRESENT: moist, tongue midline Respiratory exam: PRESENT: clear to auscultation yousif, symmetrical, unlabored. ABSENT: rales, rhonchi, tachypnea, wheezes Cardiovascular exam: PRESENT: RRR, +S1, +S2. ABSENT: bradycardia, diastolic murmur, irregular rhythm, systolic murmur, tachycardia GI/Abdominal exam: PRESENT: normal bowel sounds, soft. ABSENT: distended, tenderness Rectal exam: PRESENT: deferred Extremities exam: ABSENT: pedal edema Neurological exam: PRESENT: alert, awake, oriented to person, oriented to place, oriented to situation Psychiatric exam: PRESENT: agitated - Tends to get agitated at times and continues to be uncooperative.. ABSENT: anxious Results Laboratory Results: 02/23/20 06:00 02/23/20 06:00 01/24/20 01/24/20 01/24/20 00:03 00:03 04:20 Creatine Kinase 80 CK-MB (CK-2) 0.63 Troponin I 0.132 0.133 NT-Pro-B Natriuret Pep 32155 H 01/24/20 01/24/20 01/24/20 10:43 17:19 23:06 Creatine Kinase CK-MB (CK-2) Troponin I 0.114 0.079 0.075 NT-Pro-B Natriuret Pep 82369 H 01/30/20 01/31/20 02/01/20 03:45 05:39 06:14 Creatine Kinase CK-MB (CK-2) Troponin I NT-Pro-B Natriuret Pep 15034 H 94255 H 05165 H 02/02/20 04:24 Creatine Kinase CK-MB (CK-2) Troponin I NT-Pro-B Natriuret Pep 52356 H Impressions: Chest X-Ray 02/18/20 00:00 IMPRESSION: New right basilar dense consolidation. Endotracheal tube tip overlies the lower 3rd of the trachea approximately 3 cm above the level of the laura. Right IJ central venous catheter tip overlies the right atrium. Nasogastric catheter tip is beyond the inferior margin of the image passed the lower esophagus. KUB X-Ray 02/23/20 17:08 IMPRESSION: NG tube placement. Assessment and Plan - Diagnosis (1) Acute respiratory failure due to severe acute respiratory syndrome coronavirus 2 (SARS-CoV-2) infection Is this a current diagnosis for this admission?: Yes Plan: Currently on oxygen therapy. Today is day 32 of hospitalization. Saturations are stable. Continue to monitor. (2) Acute respiratory failure with hypoxia and hypercapnia Is this a current diagnosis for this admission?: Yes Plan: Several episodes of intubation and mechanical ventilation. Currently breathing on his own requiring 3 L nasal cannula. Failure secondary to pneumonia/SARS-CoV-2 (3) Acute kidney injury superimposed on chronic kidney disease Is this a current diagnosis for this admission?: Yes Plan: Creatinine is 2.0. This is the lowest it has been during his entire hospitalization. We will continue to monitor with laboratory studies every s everal days. (4) Acute metabolic encephalopathy Is this a current diagnosis for this admission?: Yes Plan: Encephalopathy from infection and hypercapnia. Patient is still uncooperative. He can be emotionally aggressive. It is hard to know if this is his new baseline as a result of his critical illness and multiple hypoxic events. (5) Acute worsening of stage 4 chronic kidney disease Is this a current diagnosis for this admission?: Yes Plan: As noted above, greatly improved. GFR is up to 34. (6) Severe sepsis without septic shock Is this a current diagnosis for this admission?: Yes Plan: Resolved with antibiotics and fluids (7) Leukocytosis Qualifiers: Leukocytosis type: unspecified Qualified Code(s): D72.829 - Elevated white blood cell count, unspecified Is this a current diagnosis for this admission?: Yes Plan: His white blood cell count did go up. He remains afebrile. I will check laboratory studies tomorrow to reassess. Oxygen requirements have been stable. I will change his Decadron to 3 mg every 12 hours down from 5 mg every 12 hours. I will see if this makes a difference with his white blood cell count and with his mental state. (8) GI bleed not requiring more than 4 units of blood in 24 hours, ICU, or surgery Is this a current diagnosis for this admission?: Yes Plan: Approximately February 11 or patient had maroon stool. Received 3 units of packed red blood cells. Hemoglobin has been stable. - Time Time Spent with patient: 15-24 minutes Medications reviewed and adjusted accordingly: Yes Anticipated Discharge Disposition: Unknown Anticipated Discharge Timeframe: Unknown
[2020-02-24] MEDS: RINGERS SOLUTION,LACTATED 1,000 ML IV PRN (18:00)
[2020-02-25] MEDS: DEXTROSE 5%-LACTATED RINGERS 1,000 ML IV PRN ×2 (00:07→18:54)
[2020-02-25] MEDS: INSULIN REG, HUMAN 100 UNIT/ML 3 ML VIAL (PYX) SUBCUT SCH ×5 (05:21→18:55)
[2020-02-25] MEDS: HEPARIN SOD (PORCINE) 5,000 UNIT/ML 1 ML VIAL SUBCUT SCH ×3 (05:24→21:03)
[2020-02-25] MEDS: CALCIUM ACETATE 667 MG CAPSULE NG SCH ×3 (05:31→13:57)
[2020-02-25] MEDS: BUDESONIDE NEB 0.25 MG/2 ML AMPUL NEB SCH ×2 (08:25→21:08)
[2020-02-25] MEDS: METOPROLOL TARTRATE 25 MG TABLET NG SCH (09:52)
[2020-02-25] MEDS: INSULIN GLARGINE,HUM.REC.ANLOG 1,000 UNIT/10 ML VIAL SUBCUT SCH ×2 (10:47→23:53)
[2020-02-25] MEDS: DEXAMETHASONE SOD PHOSPHATE INJ 4 MG/1 ML VIAL IV SCH ×2 (10:47→21:03)
[2020-02-25] MEDS ORDERED: PHARMACY COMMUNICATION ORDER MC NR (16:15)
--- NOTE | 2020-02-25 16:28 | PDOC PROGRESS REPORT ---
Subjective Progress Note for:: 02/25/20 Subjective:: Technology assisted visit The NG tube has been pulled out. Since he has had tubes replaced multiple times I am going to hold off on replacing his NG tube at this time. Will change medications to oral and initiate a trial of food. Reason For Visit: HYPOXEMIC RESPIRATORY FAILURE, HEMODYNAMIC Physical Exam Vital Signs: Temp Pulse Resp BP Pulse Ox 97.9 F 88 16 141/87 H 99 02/25/20 11:26 02/25/20 11:26 02/25/20 11:26 02/25/20 11:26 02/25/20 11:26 Intake & Output 02/24/20 02/25/20 02/26/20 06:59 06:59 06:59 Intake Total 1063 1360 Output Total 0 300 Balance 1063 1060 Weight 68 kg 68 kg General appearance: PRESENT: no acute distress. ABSENT: cooperative - This is consistent behavior for the patient Head exam: PRESENT: atraumatic, normocephalic Neurological exam: PRESENT: alert, awake, oriented to person, oriented to place, oriented to situation Psychiatric exam: PRESENT: flat affect. ABSENT: agitated, anxious Focused psych exam: ABSENT: delusional, paranoid, restlessness Results Laboratory Results: 02/23/20 06:00 02/23/20 06:00 01/24/20 01/24/20 01/24/20 00:03 00:03 04:20 Creatine Kinase 80 CK-MB (CK-2) 0.63 Troponin I 0.132 0.133 NT-Pro-B Natriuret Pep 57148 H 01/24/20 01/24/20 01/24/20 10:43 17:19 23:06 Creatine Kinase CK-MB (CK-2) Troponin I 0.114 0.079 0.075 NT-Pro-B Natriuret Pep 73792 H 01/30/20 01/31/20 02/01/20 03:45 05:39 06:14 Creatine Kinase CK-MB (CK-2) Troponin I NT-Pro-B Natriuret Pep 45444 H 81847 H 98631 H 02/02/20 04:24 Creatine Kinase CK-MB (CK-2) Troponin I NT-Pro-B Natriuret Pep 96297 H Impressions: Chest X-Ray 02/18/20 00:00 IMPRESSION: New right basilar dense consolidation. Endotracheal tube tip overlies the lower 3rd of the trachea approximately 3 cm above the level of the laura. Right IJ central venous catheter tip overlies the right atrium. Nasogastric catheter tip is beyond the inferior margin of the image passed the lower esophagus. KUB X-Ray 02/23/20 17:08 IMPRESSION: NG tube placement. Assessment and Plan - Diagnosis (1) Acute respiratory failure due to severe acute respiratory syndrome coronavirus 2 (SARS-CoV-2) infection Is this a current diagnosis for this admission?: Yes Plan: Today's visit was technology assisted. No direct examination. We will continue to monitor oxygen saturation requirements. He has received multiple courses of antibiotic therapy during his prolonged ICU stay. (2) Acute respiratory failure with hypoxia and hypercapnia Is this a current diagnosis for this admission?: Yes Plan: Still requires oxygen supplementation of 3 L nasal cannula. His white count was going up and so I will repeat a chest x-ray to look for any recurrent infection. (3) Acute kidney injury superimposed on chronic kidney disease Is this a current diagnosis for this admission?: Yes Plan: Serum creatinine yesterday was the lowest is been during this hospitalization. Laboratory studies ordered for tomorrow. (4) Acute metabolic encephalopathy Is this a current diagnosis for this admission?: Yes Plan: The patient may very well be at his baseline. Continue to monitor. (5) Acute worsening of stage 4 chronic kidney disease Is this a current diagnosis for this admission?: Yes Plan: Markedly improved. He is actually stage III kidney failure at this time. (6) Severe sepsis without septic shock Is this a current diagnosis for this admission?: Yes Plan: Resolved during aggressive treatment in the intensive care unit (7) Leukocytosis Qualifiers: Leukocytosis type: unspecified Qualified Code(s): D72.829 - Elevated white blood cell count, unspecified Is this a current diagnosis for this admission?: Yes Plan: White blood cell count was up to 17,000. I have ordered repeat studies for tomorrow. Consider panculture if white blood cell count is not improved. The patient has been afebrile since February 21. (8) GI bleed not requiring more than 4 units of blood in 24 hours, ICU, or surgery Is this a current diagnosis for this admission?: Yes Plan: GI bleed occurred in the ICU. Patient received 3 units of packed red blood cells. No further evidence of active bleeding. We will continue to monitor hemoglobin - Time Time Spent with patient: 15-24 minutes Medications reviewed and adjusted accordingly: Yes Anticipated Discharge Disposition: Unknown Anticipated Discharge Timeframe: Unknown
[2020-02-25] MEDS: CALCIUM ACETATE 667 MG CAPSULE PO SCH (18:21)
[2020-02-25] MEDS: METOPROLOL TARTRATE 25 MG TABLET PO SCH (21:03)
[2020-02-26] MEDS: INSULIN REG, HUMAN 100 UNIT/ML 3 ML VIAL (PYX) SUBCUT SCH ×5 (01:07→22:02)
[2020-02-26] MEDS: CALCIUM ACETATE 667 MG CAPSULE PO SCH ×4 (01:08→18:22)
[2020-02-26] MEDS: HEPARIN SOD (PORCINE) 5,000 UNIT/ML 1 ML VIAL SUBCUT SCH ×3 (06:23→22:01)
[2020-02-26] MEDS: BUDESONIDE NEB 0.25 MG/2 ML AMPUL NEB SCH ×2 (09:07→19:48)
[2020-02-26] MEDS: DEXAMETHASONE SOD PHOSPHATE INJ 4 MG/1 ML VIAL IV SCH ×2 (10:04→21:58)
[2020-02-26] MEDS: INSULIN GLARGINE,HUM.REC.ANLOG 1,000 UNIT/10 ML VIAL SUBCUT SCH (10:05)
[2020-02-26] MEDS: METOPROLOL TARTRATE 25 MG TABLET PO SCH (10:06)
--- NOTE | 2020-02-26 16:29 | PDOC PROGRESS REPORT ---
Subjective Progress Note for:: 02/26/20 Subjective:: The patient is resting comfortably this evening. Once again he pulled out his IV and access had to be obtained in his foot. Additionally nursing stated that he passed stool suspicious for GI bleed. Reason For Visit: HYPOXEMIC RESPIRATORY FAILURE, HEMODYNAMIC Physical Exam Vital Signs: Temp Pulse Resp BP Pulse Ox 98.2 F 111 H 20 123/74 88 L 02/26/20 11:56 02/26/20 11:56 02/26/20 11:56 02/26/20 11:56 02/26/20 11:56 Intake & Output 02/25/20 02/26/20 02/27/20 06:59 06:59 06:59 Intake Total 1360 1050 1240 Output Total 300 0 Balance 1060 1050 1240 Weight 68 kg 68.2 kg General appearance: PRESENT: no acute distress, thin, well-developed Head exam: PRESENT: atraumatic, normocephalic Respiratory exam: PRESENT: symmetrical, other - Coarse breath sounds. ABSENT: rales, rhonchi, tachypnea, wheezes Cardiovascular exam: PRESENT: RRR. ABSENT: diastolic murmur, systolic murmur GI/Abdominal exam: PRESENT: normal bowel sounds, soft. ABSENT: distended, tenderness Rectal exam: PRESENT: deferred, other - Per nursing stool is darkly colored and guaiac positive Extremities exam: ABSENT: pedal edema Neurological exam: PRESENT: awake - Very drowsy. ABSENT: alert Psychiatric exam: PRESENT: flat affect, other - Still tends to be very uncooperative when awake. He has pulled out multiple IVs, self extubated and pulled out nasogastric tubes Results Laboratory Results: 02/23/20 06:00 02/23/20 06:00 01/24/20 01/24/20 01/24/20 00:03 00:03 04:20 Creatine Kinase 80 CK-MB (CK-2) 0.63 Troponin I 0.132 0.133 NT-Pro-B Natriuret Pep 34699 H 01/24/20 01/24/20 01/24/20 10:43 17:19 23:06 Creatine Kinase CK-MB (CK-2) Troponin I 0.114 0.079 0.075 NT-Pro-B Natriuret Pep 14759 H 01/30/20 01/31/20 02/01/20 03:45 05:39 06:14 Creatine Kinase CK-MB (CK-2) Troponin I NT-Pro-B Natriuret Pep 11718 H 29411 H 10177 H 02/02/20 04:24 Creatine Kinase CK-MB (CK-2) Troponin I NT-Pro-B Natriuret Pep 68690 H Impressions: Chest X-Ray 02/18/20 00:00 IMPRESSION: New right basilar dense consolidation. Endotracheal tube tip overlies the lower 3rd of the trachea approximately 3 cm above the level of the laura. Right IJ central venous catheter tip overlies the right atrium. Nasogastric catheter tip is beyond the inferior margin of the image passed the lower esophagus. KUB X-Ray 02/23/20 17:08 IMPRESSION: NG tube placement. Assessment and Plan - Diagnosis (1) Acute respiratory failure due to severe acute respiratory syndrome coronavirus 2 (SARS-CoV-2) infection Is this a current diagnosis for this admission?: Yes Plan: Patient continues to require oxygen via nasal cannula. Coarse breath sounds noted. Still on budesonide nebulizers and intravenous steroids. (2) Acute respiratory failure with hypoxia and hypercapnia Is this a current diagnosis for this admission?: Yes Plan: Currently on nasal cannula. Nebulizers and steroids as above. Decrease Decadron slightly to 3 mg every 12. (3) Acute kidney injury superimposed on chronic kidney disease Is this a current diagnosis for this admission?: Yes Plan: Renal function is actually normal (4) Acute metabolic encephalopathy Is this a current diagnosis for this admission?: Yes Plan: Multifactorial. Concerning for hypoxic encephalopathy during the course of his current acute illness (5) Acute worsening of stage 4 chronic kidney disease Is this a current diagnosis for this admission?: Yes Plan: Resolved. GFR is now greater than 60. (6) Severe sepsis without septic shock Is this a current diagnosis for this admission?: Yes Plan: Secondary to COVID pneumonia. Resolved (7) Leukocytosis Qualifiers: Leukocytosis type: unspecified Qualified Code(s): D72.829 - Elevated white blood cell count, unspecified Is this a current diagnosis for this admission?: Yes Plan: White blood cell count increased slightly from 3 days ago. Will decrease Decadron and follow. (8) GI bleed not requiring more than 4 units of blood in 24 hours, ICU, or surgery Is this a current diagnosis for this admission?: Yes Plan: Guaiac positive stool. Will need to monitor for increased blood loss. - Time Time Spent with patient: 15-24 minutes Medications reviewed and adjusted accordingly: Yes Anticipated Discharge Disposition: Unknown Anticipated Discharge Timeframe: Unknown
[2020-02-26 23:01] LABS: HEMATOCRIT 29.5 % (37.9-51.0); HEMOGLOBIN 9.5 g/dL (13.5-17.0); MEAN CORPUSCULAR HGB CONC 32.1 g/dL (32.0-36.0); MEAN CORPUSCULAR VOLUME 87 fl (80-97); PLATELET COUNT 431 10^3/uL (150-450); RED BLOOD COUNT 3.39 10^6/uL (4.35-5.55); RED CELL DISTRIBUTION WIDTH 15.7 % (11.5-14.0); WHITE BLOOD COUNT 22.6 10^3/uL (4.0-10.5)
[2020-02-26 23:07] LABS: INTERNATIONAL RATION (INR) 1.26; PARTIAL THROMBOPLASTIN TIME 27.5 SEC (23.5-35.8)
[2020-02-26 23:10] LABS: D-DIMER 0.97 ug/mL (0.00-0.50)
[2020-02-26 23:14] LABS: ALBUMIN 2.4 g/dL (3.5-5.0); ALKALINE PHOSPHATASE 67 U/L (38-126); ASPARTATE AMINO TRANSFERASE 13 U/L (17-59); BILIRUBIN,TOTAL 0.3 mg/dL (0.2-1.3); BLOOD UREA NITROGEN 44 mg/dL (7-20); CALCIUM 7.9 mg/dL (8.4-10.2); GLUCOSE 156 mg/dL (75-110); POTASSIUM 3.8 mmol/L (3.6-5.0); TOTAL PROTEIN 5.7 g/dL (6.3-8.2)
[2020-02-26 23:18] LABS: CARBON DIOXIDE 25 mmol/L (22-30); CHLORIDE 117 mmol/L (98-107)
[2020-02-26 23:23] LABS: ANION GAP 3 (5-19)
[2020-02-26 23:58] LABS: ABSOLUTE LYMPHOCYTES# (MANUAL) 1.6 10^3/uL (0.5-4.7); ABSOLUTE MONOCYTES # (MANUAL) 0.5 10^3/uL (0.1-1.4); BASOPHILS % (MANUAL) 0 % (0-2); EOSINOPHILS % (MANUAL) 0 % (0-6); LYMPHOCYTES % (MANUAL) 7 % (13-45); MONOCYTES % (MANUAL) 2 % (3-13); SEGMENTED NEUTROPHILS % (MAN) 91 % (42-78); TOTAL CELLS COUNTED 100
[2020-02-26 23:59] LABS: POLYCHROMASIA SLIGHT; TOXIC GRANULATION SLIGHT
[2020-02-27] LABS: HYPOCHROMASIA SLIGHT; PLATELET COMMENT ADEQUATE; SCHISTOCYTES SLIGHT; TEAR DROP CELLS SLIGHT
[2020-02-27] MEDS: DEXTROSE 5%-LACTATED RINGERS 1,000 ML IV PRN
[2020-02-27] MEDS: INSULIN GLARGINE,HUM.REC.ANLOG 1,000 UNIT/10 ML VIAL SUBCUT SCH ×3 (01:09→21:00)
[2020-02-27] MEDS: CALCIUM ACETATE 667 MG CAPSULE PO SCH ×5 (06:27→23:36)
[2020-02-27] MEDS: HEPARIN SOD (PORCINE) 5,000 UNIT/ML 1 ML VIAL SUBCUT SCH ×3 (06:28→20:59)
[2020-02-27] MEDS ORDERED: FUROSEMIDE INJ/PF 20 MG/2 ML SDV IV ONE (07:52)
[2020-02-27] MEDS ORDERED: IPRATROPIUM/ALBUTEROL 0.5-2.5 MG/3 ML AMPUL NEB ONE (07:53)
[2020-02-27] MEDS: ALBUTEROL SULFATE 0.083% NEB 2.5 MG/3 ML AMPUL NEB PRN (07:54)
[2020-02-27] MEDS: BUDESONIDE NEB 0.25 MG/2 ML AMPUL NEB SCH ×2 (07:54→20:04)
[2020-02-27] MEDS ORDERED: FUROSEMIDE INJ/PF 40 MG/4 ML SDV ONE (08:06)
[2020-02-27 08:10] LABS: ARTERIAL BLOOD BASE EXCESS -2.5 mmol/L; ARTERIAL BLOOD H2CO3 2.71 mmol/L (1.05-1.35); ARTERIAL BLOOD HCO3 28.2 mmol/L (20-24); ARTERIAL BLOOD O2 SATURATION 91.6 % (94-98); ARTERIAL BLOOD PO2 83.5 mmHg (80-100)
[2020-02-27 08:12] LABS: ARTERIAL BLOOD FIO2 15L
[2020-02-27 08:27] LABS: ARTERIAL BLOOD PCO2 89.9 mmHg (35-45); ARTERIAL BLOOD PH 7.12 (7.35-7.45)
[2020-02-27 08:37] LABS: HEMOGLOBIN 9.4 g/dL (13.5-17.0); MEAN CORPUSCULAR HGB CONC 30.4 g/dL (32.0-36.0); PLATELET COUNT 541 10^3/uL (150-450); RED BLOOD COUNT 3.35 10^6/uL (4.35-5.55); RED CELL DISTRIBUTION WIDTH 16.6 % (11.5-14.0)
[2020-02-27 08:43] LABS: MEAN CORPUSCULAR VOLUME 92 fl (80-97)
[2020-02-27 08:44] LABS: WHITE BLOOD COUNT 41.1 10^3/uL (4.0-10.5)
[2020-02-27 08:51] LABS: ALBUMIN 2.7 g/dL (3.5-5.0); ALKALINE PHOSPHATASE 82 U/L (38-126); ANION GAP 5 (5-19); ASPARTATE AMINO TRANSFERASE 13 U/L (17-59); BILIRUBIN,DIRECT 0.1 mg/dL (0.0-0.4); BILIRUBIN,TOTAL 0.3 mg/dL (0.2-1.3); BLOOD UREA NITROGEN 45 mg/dL (7-20); CALCIUM 8.6 mg/dL (8.4-10.2); CARBON DIOXIDE 28 mmol/L (22-30); CHLORIDE 115 mmol/L (98-107); CREATINE KINASE 33 U/L (55-170); GLUCOSE 298 mg/dL (75-110); POTASSIUM 4.3 mmol/L (3.6-5.0); TOTAL PROTEIN 6.3 g/dL (6.3-8.2)
[2020-02-27 08:59] LABS: ABSOLUTE MONOCYTES # (MANUAL) 0.8 10^3/uL (0.1-1.4); BAND NEUTROPHILS % (MANUAL) 4 % (3-5); BASOPHILS % (MANUAL) 0 % (0-2); EOSINOPHILS % (MANUAL) 0 % (0-6); LYMPHOCYTES % (MANUAL) 0 % (13-45); MONOCYTES % (MANUAL) 2 % (3-13); SEGMENTED NEUTROPHILS % (MAN) 94 % (42-78); TOTAL CELLS COUNTED 100
[2020-02-27 09:00] LABS: ANISOCYTOSIS 1+; OVALOCYTES SLIGHT; PLATELET COMMENT INCREASED; POIKILOCYTOSIS SLIGHT; TOXIC GRANULATION 1+
[2020-02-27 09:02] LABS: CREATINE KINASE MB 2.16 ng/mL (<4.55); TROPONIN I 0.013 ng/mL
[2020-02-27] MEDS ORDERED: PROPOFOL 1,000 MG/100 ML INFUS..BTL IV ONE (09:23)
[2020-02-27 09:25] LABS: ARTERIAL BLOOD BASE EXCESS -1.7 mmol/L; ARTERIAL BLOOD H2CO3 2.64 mmol/L (1.05-1.35); ARTERIAL BLOOD HCO3 29.1 mmol/L (20-24); ARTERIAL BLOOD O2 SATURATION 99.6 % (94-98); ARTERIAL BLOOD PO2 348.6 mmHg (80-100); ARTERIAL BLOOD TOTAL CO2 31.8 mmol/L (23-27)
--- NOTE | 2020-02-27 09:25 | PDOC PROGRESS REPORT ---
Subjective Progress Note for:: 02/27/20 Subjective:: Called to bedside early this morning for altered mentation and worsening respiratory distress. Upon arrival, patient was found to be obtunded; minimal facial flinch to sternal rub. At time of my arrival, patient had already been placed on BiPAP. Respiratory rate was noted to match that of that BiPAP device (16/6, FiO2 100%, RR 14). Pulses were noted to be thready. Multiple stat labs, imaging, EKG, ABG, nursing interventions were ordered while at bedside; please see the excellent/thorough nurse documentation by Jessica Arenas RN. Despite immediate interventions, the patient remained in extremitas with poor ABG (pH 7.12, pCO2 87.6, pO2 83.5, HCO3 28.2). After discussion with the rectifying attendant, Dr. Mcghee, it was determined that the patient required intubation for acute respiratory failure with hypercapnia and transferred to the ICU. Reason For Visit: HYPOXEMIC RESPIRATORY FAILURE, HEMODYNAMIC Physical Exam Vital Signs: Temp Pulse Resp BP Pulse Ox 98.6 F 87 17 138/71 H 100 02/27/20 03:13 02/27/20 07:54 02/27/20 07:54 02/27/20 03:13 02/27/20 07:54 Intake & Output 02/26/20 02/27/20 02/28/20 06:59 06:59 06:59 Intake Total 1050 1480 Output Total 0 Balance 1050 1480 Weight 68.2 kg 63.4 kg General appearance: PRESENT: severe distress, well-developed, well-nourished Head exam: PRESENT: atraumatic, normocephalic Eye exam: PRESENT: conjunctiva pale, EOMI, PERRLA. ABSENT: scleral icterus Ear exam: PRESENT: normal external ear exam Mouth exam: PRESENT: dry mucosa, tongue midline Neck exam: ABSENT: carotid bruit, JVD, lymphadenopathy, thyromegaly Respiratory exam: PRESENT: rhonchi, symmetrical, other - Labored. ABSENT: rales, wheezes Cardiovascular exam: PRESENT: RRR. ABSENT: diastolic murmur, rubs, systolic murmur Pulses: PRESENT: other - Trace pedal pulses bilaterally Vascular exam: PRESENT: pallor Rectal exam: PRESENT: deferred Gentrourinary exam: PRESENT: indwelling catheter Extremities exam: ABSENT: calf tenderness, clubbing, pedal edema Neurological exam: PRESENT: other - Obtunded. ABSENT: motor sensory deficit Skin exam: PRESENT: dry, intact, warm. ABSENT: cyanosis, rash Results Laboratory Results: 02/27/20 08:12 02/27/20 08:12 02/26/20 02/26/20 02/26/20 19:50 22:29 22:29 WBC 22.6 H RBC 3.39 L Hgb 9.5 L Hct 29.5 L MCV 87 MCH 28.0 MCHC 32.1 RDW 15.7 H Plt Count 431 Seg Neutrophils % Not Reportable Carbonic Acid HCO3/H2CO3 Ratio ABG pH ABG pCO2 ABG pO2 ABG HCO3 ABG O2 Saturation ABG Base Excess FiO2 Sodium 145.0 Potassium 3.8 Chloride 117 H Carbon Dioxide 25 Anion Gap 3 L BUN 44 H Creatinine 1.20 Est GFR ( Amer) > 60 Glucose 156 H Lactic Acid Calcium 7.9 L Magnesium 1.7 Ferritin 371.00 Total Bilirubin 0.3 AST 13 L Alkaline Phosphatase 67 Total Protein 5.7 L Albumin 2.4 L Stool Occult Blood POSITIVE 02/27/20 02/27/20 02/27/20 07:50 08:12 08:12 WBC 41.1 H* RBC 3.35 L Hgb 9.4 L Hct 31.0 L MCV 92 D MCH 28.0 MCHC 30.4 L RDW 16.6 H Plt Count 541 H Seg Neutrophils % Not Reportable Carbonic Acid 2.71 H HCO3/H2CO3 Ratio 10:1 ABG pH 7.12 L* ABG pCO2 89.9 H* ABG pO2 83.5 ABG HCO3 28.2 H ABG O2 Saturation 91.6 L ABG Base Excess -2.5 FiO2 15L Sodium 147.9 H Potassium 4.3 Chloride 115 H Carbon Dioxide 28 Anion Gap 5 BUN 45 H Creatinine 1.44 H Est GFR ( Amer) > 60 Glucose 298 H Lactic Acid Calcium 8.6 Magnesium 2.0 Ferritin Total Bilirubin 0.3 AST 13 L Alkaline Phosphatase 82 Total Protein 6.3 Albumin 2.7 L Stool Occult Blood 02/27/20 08:12 WBC RBC Hgb Hct MCV MCH MCHC RDW Plt Count Seg Neutrophils % Carbonic Acid HCO3/H2CO3 Ratio ABG pH ABG pCO2 ABG pO2 ABG HCO3 ABG O2 Saturation ABG Base Excess FiO2 Sodium Potassium Chloride Carbon Dioxide Anion Gap BUN Creatinine Est GFR ( Amer) Glucose Lactic Acid 1.1 Calcium Magnesium Ferritin Total Bilirubin AST Alkaline Phosphatase Total Protein Albumin Stool Occult Blood 01/24/20 01/24/20 01/24/20 00:03 00:03 04:20 Creatine Kinase 80 CK-MB (CK-2) 0.63 Troponin I 0.132 0.133 NT-Pro-B Natriuret Pep 11215 H 01/24/20 01/24/20 01/24/20 10:43 17:19 23:06 Creatine Kinase CK-MB (CK-2) Troponin I 0.114 0.079 0.075 NT-Pro-B Natriuret Pep 74012 H 01/30/20 01/31/20 02/01/20 03:45 05:39 06:14 Creatine Kinase CK-MB (CK-2) Troponin I NT-Pro-B Natriuret Pep 09566 H 83461 H 94766 H 02/02/20 02/27/20 02/27/20 04:24 08:12 08:12 Creatine Kinase 33 L CK-MB (CK-2) 2.16 Troponin I 0.013 NT-Pro-B Natriuret Pep 51561 H Impressions: Chest X-Ray 02/18/20 00:00 IMPRESSION: New right basilar dense consolidation. Endotracheal tube tip overlies the lower 3rd of the trachea approximately 3 cm above the level of the laura. Right IJ central venous catheter tip overlies the right atrium. Nasogastric catheter tip is beyond the inferior margin of the image passed the lower esophagus. KUB X-Ray 02/23/20 17:08 IMPRESSION: NG tube placement. Assessment and Plan - Diagnosis (1) Acute hypercapnic respiratory failure Is this a current diagnosis for this admission?: Yes Plan: Called to bedside for altered mentation and respiratory distress. Unclear etiology at this time. Stat EKG, ABG (on nonrebreather), BiPAP placement, follow-up ABG on BiPAP after 20 min, CBC, BMP, BNP, troponin, Lactic acid, chest x-ray requested. Patient was noted to be hypotensive; initially considered a fluid bolus, however on exam, patient was noted to have bibasilar crackles throughout. Provided furosemide 40 mg IV x 1 without improvement in BP. Varner placed with immediate urine output >1L. Despite BiPAP x 30 min, patient remained obtunded. Initial ABG resulted pH 7.12. Spoke w/ Dr. Mcghee twice during evolution of events; he was unable to come to bedside due to ongoing emergency in the ICU, however, did provide valuable assistance/guidance by phone and readily accepted patient to service. Due to immediate unavailability for intensivisit, Anesthesia was requested to bedside for emergent intubation; 8.0, 22 cm at lip. Single attempt by CAP CUTTER. No sedation/paralytic required. Post intubation VS showed BP 70s systolic. Started 1 L bolus and dopamine gtt at 5 mcg/kg/min. BP improved to 108 systolic. Patient transferred to ICU w/ handoff to Dr. Mcghee at bedside. (2) Acute metabolic encephalopathy Is this a current diagnosis for this admission?: Yes Plan: Secondary to #1 (3) Elevated white blood cell count Qualifiers: Leukocytosis type: unspecified Qualified Code(s): D72.829 - Elevated white blood cell count, unspecified Is this a current diagnosis for this admission?: Yes (4) Sepsis associated hypotension Is this a current diagnosis for this admission?: Yes (5) GI bleed not requiring more than 4 units of blood in 24 hours, ICU, or surgery Is this a current diagnosis for this admission?: Yes Plan: Guaiac positive stool. Will need to monitor for increased blood loss. Hgb overall stable. (6) Acute kidney injury superimposed on chronic kidney disease Is this a current diagnosis for this admission?: Yes Plan: Slight worsening today, however, baseline appears to actually be ~2.5 (7) Acute respiratory failure due to severe acute respiratory syndrome coronavirus 2 (SARS-CoV-2) infection Is this a current diagnosis for this admission?: Yes Plan: Previously intubated in ICU; successfully extubated and downgraded to IMCU. Stable on RA yesterday without increased work of breathing per nursing. Some question to mentation as patient removed numerous lines; however, he is known from prior admissions when he has demonstrated similar behavior when fully orientated and w/ capacity. Sudden worsening of respiratory status today; see #1. Unclear etiology. - Plan Summary Summary: Intubated at bedside by Anesthesia; transferred to ICU. - Time Total Critical Time (Minutes): 30 Medications reviewed and adjusted accordingly: Yes Anticipated Discharge Disposition: unknown Anticipated Discharge Timeframe: >72 hrs
[2020-02-27 09:27] LABS: ARTERIAL BLOOD FIO2 100%; ARTERIAL BLOOD PH 7.14 (7.35-7.45)
[2020-02-27 09:28] LABS: ARTERIAL BLOOD PCO2 87.6 mmHg (35-45)
[2020-02-27] MEDS ORDERED: NOREPINEPHRINE BITARTRATE INJ/PF 4 MG/4 ML SDV IV ONE (09:30)
[2020-02-27] MEDS ORDERED: LORAZEPAM INJ 2 MG/1 ML VIAL ONE (09:36)
[2020-02-27] MEDS ORDERED: DOPAMINE HCL/D5W 800 MG/250 ML RTU BAG IV ONE (09:56)
[2020-02-27] MEDS ORDERED: PROPOFOL 1,000 MG/100 ML INFUS..BTL IV PRN (10:21)
[2020-02-27 10:52] LABS: ARTERIAL BLOOD BASE EXCESS -2.3 mmol/L; ARTERIAL BLOOD H2CO3 1.36 mmol/L (1.05-1.35); ARTERIAL BLOOD HCO3 23.6 mmol/L (20-24); ARTERIAL BLOOD O2 SATURATION 99.7 % (94-98); ARTERIAL BLOOD PCO2 45.1 mmHg (35-45); ARTERIAL BLOOD PH 7.34 (7.35-7.45)
[2020-02-27 10:59] LABS: ARTERIAL BLOOD FIO2 100%
--- NOTE | 2020-02-27 11:18 | RADIOLOGY REPORT (SQ) ---
EXAM DESCRIPTION: CHEST SINGLE VIEW IMAGES COMPLETED DATE/TIME: 02/27/2020 10:55 am REASON FOR STUDY: central line placement COMPARISON: 02/18/2020. EXAM PARAMETERS: NUMBER OF VIEWS: One view. TECHNIQUE: Single frontal radiographic view of the chest acquired. RADIATION DOSE: NA LIMITATIONS: None. FINDINGS: LUNGS AND PLEURA: Faint bilateral airspace disease with overall improved aeration. No ple ural effusion. No pneumothorax. MEDIASTINUM AND HILAR STRUCTURES: No masses. Contour normal. HEART AND VASCULAR STRUCTURES: Heart normal in size. Normal vasculature. BONES: No acute findings. HARDWARE: Endotracheal tube, tip located 3 cm proximal to the laura. Nasogastric tube, tip located in the stomach. Central venous catheter, tip located at the level of the right atrium. Hardware in the cervical spine. OTHER: No other significant finding. IMPRESSION: SATISFACTORY POSITION OF THE LIFE LINES. OVERALL IMPROVED APPEARANCE OF THE CHEST. TECHNICAL DOCUMENTATION: JOB ID: [id number] [employer]- All Rights Reserved Reading location - IP/workstation name: [email or web address]
[2020-02-27 12:04] LABS: PATH REVIEW PATHOLOGIST REVIEWED
[2020-02-27] MEDS: INSULIN REG, HUMAN 100 UNIT/ML 3 ML VIAL (PYX) SUBCUT SCH ×4 (12:39→21:00)
[2020-02-27] MEDS: METOPROLOL TARTRATE 25 MG TABLET PO SCH ×3 (12:50→22:17)
[2020-02-27] MEDS ORDERED: NORMAL SALINE INJ/PF 0.9% 10 ML SDV IV PRN (12:52)
[2020-02-27] MEDS: DEXAMETHASONE SOD PHOSPHATE INJ 4 MG/1 ML VIAL IV SCH (13:28)
[2020-02-27 13:33] LABS: APPEARANCE,URINE SLIGHTLY-CLOUDY; BILIRUBIN,URINE NEGATIVE (NEGATIVE); COLOR,URINE YELLOW; GLUCOSE, URINE >=500 mg/dL (NEGATIVE); KETONES,URINE NEGATIVE (NEGATIVE); LEUKOCYTE ESTERASE,URINE LARGE (NEGATIVE); NITRITE,URINE NEGATIVE (NEGATIVE); PROTEIN,URINE NEGATIVE (NEGATIVE); URINE SPECIFIC GRAVITY 1.006; UROBILINOGEN,URINE NEGATIVE mg/dL (<2.0)
[2020-02-27 13:48] LABS: URINE AMPHETAMINES SCREEN NEGATIVE; URINE BARBITURATES SCREEN NEGATIVE; URINE BENZODIAZEPINES SCREEN NEGATIVE; URINE COCAINE SCREEN NEGATIVE; URINE MARIJUANA (THC) SCREEN NEGATIVE; URINE METHADONE SCREEN NEGATIVE; URINE PHENCYCLIDINE SCREEN NEGATIVE
[2020-02-27] MEDS ORDERED: DOPAMINE HCL 800 MG/D5W 250 ML IV PRN (14:13)
[2020-02-27] MEDS: ALBUTEROL SULFATE 0.083% NEB 2.5 MG/3 ML AMPUL NEB SCH ×2 (14:33→20:04)
--- NOTE | 2020-02-27 14:36 | Operative Report ---
Bedside Procedure - History of Present Illness Indication for Procedure: hypotension; frequent blood draws; CVP monitoring Date: 01/29/20 Provider: FARAZ NUNEZ - Central Line Right Internal jugular Consent obtained: No - emergent condition Central line pre-insertion: Sterile PPE donned, Chloraprep applied, Sterile drapes applied Central line lumen type: Triple Anesthetic type: 1% Lidocaine mL's of anesthesia: 5 Ultrasound guided: Yes CM at insertion site: 19 Line secured with sutures: Yes Central line post-insertion: Blood return from lumens, Biopatch applied, Sutured, Sterile dressing applied, Position confirmed w/ CXR Number of attempts: 1 Complications: No
[2020-02-27] MEDS ORDERED: NORMAL SALINE 1000 ML 1,000 ML IV ONE (14:45)
[2020-02-27] MEDS: FAMOTIDINE 20 MG TABLET PO SCH (14:57)
[2020-02-27] MEDS ORDERED: NORMAL SALINE 1000 ML 3,000 ML IV ONE (18:45)
[2020-02-27] MEDS ORDERED: LORAZEPAM INJ 2 MG/1 ML VIAL IV ONE (19:30)
--- NOTE | 2020-02-27 19:38 | EKG REPORT ---
SEVERITY:- ABNORMAL ECG - SINUS RHYTHM BIATRIAL ABNORMALITIES CONSIDER ANTEROSEPTAL INFARCT BORDERLINE T ABNORMALITIES, INFERIOR LEADS : Confirmed by: Mitesh Matta MD 27-Feb-2020 19:37:15
--- NOTE | 2020-02-27 20:37 | PDOC CRITICAL CARE PROG REPORT ---
General Date:: 02/27/20 ICU Day:: 1 - 2nd ICU stay Ventilator Day:: 1 Hospital Day:: 35 Resuscitation Status: Full Code Medical Power of Double Needle Operator Lockstitch: None Events in the past 12 to 24 Hours:: This 60-year-old male with COVID-19 pneumonia was initially admitted on 01/24/2020 to the ICU after presenting with fever, shortness of breath, orthostatic hypotension, dizziness and hypoxia. He was admitted to the ICU with acute hypoxemic respiratory failure and was placed on BiPAP support. Chest x- ray at that time was compatible with bilateral pneumonia. COVID-19 testing was subsequently POSITIVE. On 01/29/2020, the patient required endotracheal intubation and mechanical ventilatory support, ultimately for worsening hypercapnia. He self-extubated on 02/11 but was able to tolerate support with a high flow nasal cannula. However, he subsequently developed worsening hypoxemia and required endotracheal intubation again on 02/17. He liberated from mechanical ventilatory support on 02/22 and was transferred out on the same day. He returns to us today after the hospitalist team raise concern for altered mental status and profound hypoxemia despite BiPAP support. More concerning, ABG showed that the patient was in acute hypercapnic respiratory failure (pH 7.12, PCO2 90). Case was discussed with Rema Toledo NP. I agreed that the patient should be intubated. Endotracheal intubation was performed by the anesthesia service. The patient was transferred to ICU. Review of systems relevant to events:: Respiratory: Acute hypercapnic respiratory failure, COVID-19 pneumonia Cardiovascular: Hypotension/septic shock Neurologic: Altered mental status Reason for ICU Addmission:: Acute hypercapnic respiratory failure - Medications: Medications reviewed and adjusted accordingly: Yes Vasopressors:: Dopamine Sedation:: Propofol Physical Exam Vital Signs: Temp Pulse Resp BP Pulse Ox 94.6 F L 87 17 76/54 L 85 L 02/27/20 07:37 02/27/20 07:54 02/27/20 07:54 02/27/20 07:37 02/27/20 09:21 Intake & Output 02/26/20 02/27/20 02/28/20 06:59 06:59 06:59 Intake Total 1050 1480 Output Total 0 Balance 1050 1480 Weight 68.2 kg 63.4 kg Weight/Height Weight 63.4 kg Height 1.7 m General appearance: PRESENT: no acute distress, thin, well-developed, well- nourished Head exam: PRESENT: atraumatic, normocephalic Eye exam: PRESENT: conjunctiva pink, EOMI, PERRLA. ABSENT: scleral icterus Mouth exam: PRESENT: moist, tongue midline Teeth exam: PRESENT: edentulous Neck exam: ABSENT: carotid bruit, JVD, lymphadenopathy, thyromegaly Respiratory exam: PRESENT: decreased breath sounds, rales, rhonchi. ABSENT: wheezes Cardiovascular exam: PRESENT: RRR. ABSENT: gallop, rubs, systolic murmur Pulses: PRESENT: normal carotid pulses, normal femoral pulses GI/Abdominal exam: PRESENT: normal bowel sounds, soft. ABSENT: distended, guarding, mass, organolmegaly, rebound, tenderness Extremities exam: PRESENT: full ROM. ABSENT: calf tenderness, clubbing, pedal edema Neurological exam: PRESENT: altered, reflexes normal, CN II-XII grossly intact Skin exam: PRESENT: dry, intact, warm. ABSENT: cyanosis, rash Tubes/Lines: PRESENT: Endotracheal Tube, Central Line - Right IJ Laboratory/Radiographs Laboratory Results: 02/27/20 08:12 02/27/20 08:12 02/26/20 02/26/20 02/26/20 19:50 22:29 22:29 WBC 22.6 H RBC 3.39 L Hgb 9.5 L Hct 29.5 L MCV 87 MCH 28.0 MCHC 32.1 RDW 15.7 H Plt Count 431 Seg Neutrophils % Not Reportable Carbonic Acid HCO3/H2CO3 Ratio ABG pH ABG pCO2 ABG pO2 ABG HCO3 ABG O2 Saturation ABG Base Excess FiO2 Sodium 145.0 Potassium 3.8 Chloride 117 H Carbon Dioxide 25 Anion Gap 3 L BUN 44 H Creatinine 1.20 Est GFR ( Amer) > 60 Glucose 156 H Lactic Acid Calcium 7.9 L Magnesium 1.7 Ferritin 371.00 Total Bilirubin 0.3 AST 13 L Alkaline Phosphatase 67 Total Protein 5.7 L Albumin 2.4 L Stool Occult Blood POSITIVE 02/27/20 02/27/20 02/27/20 07:50 08:12 08:12 WBC 41.1 H* RBC 3.35 L Hgb 9.4 L Hct 31.0 L MCV 92 D MCH 28.0 MCHC 30.4 L RDW 16.6 H Plt Count 541 H Seg Neutrophils % Not Reportable Carbonic Acid 2.71 H HCO3/H2CO3 Ratio 10:1 ABG pH 7.12 L* ABG pCO2 89.9 H* ABG pO2 83.5 ABG HCO3 28.2 H ABG O2 Saturation 91.6 L ABG Base Excess -2.5 FiO2 15L Sodium 147.9 H Potassium 4.3 Chloride 115 H Carbon Dioxide 28 Anion Gap 5 BUN 45 H Creatinine 1.44 H Est GFR ( Amer) > 60 Glucose 298 H Lactic Acid Calcium 8.6 Magnesium 2.0 Ferritin Total Bilirubin 0.3 AST 13 L Alkaline Phosphatase 82 Total Protein 6.3 Albumin 2.7 L Stool Occult Blood 02/27/20 02/27/20 02/27/20 08:12 08:26 10:40 WBC RBC Hgb Hct MCV MCH MCHC RDW Plt Count Seg Neutrophils % Carbonic Acid 2.64 H 1.36 H HCO3/H2CO3 Ratio 11:1 17:1 ABG pH 7.14 L* 7.34 L ABG pCO2 87.6 H* 45.1 H ABG pO2 348.6 H 348.0 H ABG HCO3 29.1 H 23.6 ABG O2 Saturation 99.6 H 99.7 H ABG Base Excess -1.7 -2.3 FiO2 100% 100% Sodium Potassium Chloride Carbon Dioxide Anion Gap BUN Creatinine Est GFR ( Amer) Glucose Lactic Acid 1.1 Calcium Magnesium Ferritin Total Bilirubin AST Alkaline Phosphatase Total Protein Albumin Stool Occult Blood 01/24/20 01/24/20 01/24/20 00:03 00:03 04:20 Creatine Kinase 80 CK-MB (CK-2) 0.63 Troponin I 0.132 0.133 NT-Pro-B Natriuret Pep 52113 H 01/24/20 01/24/20 01/24/20 10:43 17:19 23:06 Creatine Kinase CK-MB (CK-2) Troponin I 0.114 0.079 0.075 NT-Pro-B Natriuret Pep [id number] H 01/30/20 01/31/20 02/01/20 03:45 05:39 06:14 Creatine Kinase CK-MB (CK-2) Troponin I NT-Pro-B Natriuret Pep 70206 H 50782 H 09889 H 02/02/20 02/27/20 02/27/20 04:24 08:12 08:12 Creatine Kinase 33 L CK-MB (CK-2) 2.16 Troponin I 0.013 NT-Pro-B Natriuret Pep 16614 H Impressions: KUB X-Ray 02/23/20 17:08 IMPRESSION: NG tube placement. Chest X-Ray 02/27/20 10:20 IMPRESSION: SATISFACTORY POSITION OF THE LIFE LINES. OVERALL IMPROVED APPE ARANCE OF THE CHEST. All labs, radiographs, diagnostic studies and EKGs were personally reviewed: Yes In addition, reports of radiographic and diagnostic studies were read: Yes Assessment and Plan - Diagnosis (1) Hypotension Is this a current diagnosis for this admission?: Yes Plan: Repeat lactate. It is unclear at this time whether this is reflective of shock physiology. CVP monitoring. Venous blood gas for SvO2. (2) Acute systolic heart failure Is this a current diagnosis for this admission?: Yes Plan: 2D echo (02/17/2020): LVEF 40-45% with mild LV diastolic dysfunction. Check proBNP. (3) Acute hypercapnic respiratory failure Is this a current diagnosis for this admission?: Yes Plan: This latest bout of respiratory failure appears to be secondary to different pathophysiology than his previous episodes that required endotracheal intubation. Although he does have an elevated A-a gradient, his PO2 was noted to be ~ 350. Of note, this is his third intubation during this hospitalization. Check urine drug screen. (4) Chronically on opiate therapy Is this a current diagnosis for this admission?: Yes Plan: Home medications include OxyIR (oxycodone) 15 mg p.o. every 6 hours; Mobic (meloxicam) 7.5 mg p.o. every 12 hours PRN. It appears the patient has not required administration of any narcotic analgesics in over 10 days. (5) Acute worsening of stage 4 chronic kidney disease Is this a current diagnosis for this admission?: Yes Plan: Resolved. GFR 50. (6) Elevated troponin level Is this a current diagnosis for this admission?: Yes Plan: Was originally initiated on heparin infusion but has been changed over to heparin 5000 units subcutaneously every 8 hours. Lopressor 25 mg NG twice daily on hold. (7) Diabetes type 2, uncontrolled Qualifiers: Glycemic state: with hyperglycemia Qualified Code(s): E11.65 - Type 2 diabetes mellitus with hyperglycemia Is this a current diagnosis for this admission?: Yes (8) Acute respiratory failure due to severe acute respiratory syndrome coronavirus 2 (SARS-CoV-2) infection Is this a current diagnosis for this admission?: Yes Plan: Check ABG. Titrate vent settings based on ABG results. (9) Pneumonia due to COVID-19 virus Is this a current diagnosis for this admission?: Yes Plan: Clinically and radiographically significantly improved his admission film. Already completed Plaquenil. On Decadron 4 mg IV every 12 hours. Review of orders suggest that the patient has pleaded a more than sufficient course of Decadron for COVID-19 pneumonia. He was recently restarted on Decadron, perhaps for empiric treatment of an unexplained decrease in blood pressure (albeit, normotensive). In the absence of a compelling indication, I will discontinue Decadron at this time. Critical Time Critical Time (minutes): 90 Level of Care: ICU -: 1. The care of a critical patient is a dynamic process. This note is a bilingual inside sales representative synopsis but static in nature. The timeframe for treatments given in order is not necessarily the actual time these treatments may have been done. 2. This patient requires critical care secondary to ongoing requirements for therapy not offered or safe outside the critical care environment. Transfer to a lower level of care will result in altered life or limb morbidity and mor tality. 3. Multidisciplinary rounds completed. 4. ABCDE bundle addressed.
[2020-02-27] MEDS ORDERED: AZTREONAM INJ 1 GM VIAL IV SCH (23:45)
[2020-02-28] MEDS ORDERED: AZTREONAM 1 GM in DEXTROSE 5%-WATER 50 ML IV ONE (00:15)
[2020-02-28 00:17] LABS: HEMATOCRIT 24.2 % (37.9-51.0); MEAN CORPUSCULAR HGB CONC 31.5 g/dL (32.0-36.0); MEAN CORPUSCULAR VOLUME 89 fl (80-97); PLATELET COUNT 386 10^3/uL (150-450); RED BLOOD COUNT 2.72 10^6/uL (4.35-5.55); RED CELL DISTRIBUTION WIDTH 16.1 % (11.5-14.0); WHITE BLOOD COUNT 20.8 10^3/uL (4.0-10.5)
[2020-02-28 00:25] LABS: BLOOD UREA NITROGEN 36 mg/dL (7-20); CALCIUM 7.5 mg/dL (8.4-10.2); GLUCOSE 89 mg/dL (75-110); PHOSPHORUS 2.4 mg/dL (2.5-4.5); POTASSIUM 3.6 mmol/L (3.6-5.0)
[2020-02-28] MEDS ORDERED: AZTREONAM INJ 1 GM VIAL IV PRN (00:30)
[2020-02-28 00:31] LABS: CARBON DIOXIDE 24 mmol/L (22-30); CHLORIDE 119 mmol/L (98-107)
[2020-02-28 00:33] LABS: ABSOLUTE LYMPHOCYTES# (MANUAL) 0.8 10^3/uL (0.5-4.7); ANION GAP 4 (5-19); BASOPHILS % (MANUAL) 0 % (0-2); EOSINOPHILS % (MANUAL) 0 % (0-6); LYMPHOCYTES % (MANUAL) 4 % (13-45); MONOCYTES % (MANUAL) 5 % (3-13); SEGMENTED NEUTROPHILS % (MAN) 91 % (42-78); TOTAL CELLS COUNTED 100
[2020-02-28 00:34] LABS: ANISOCYTOSIS 1+; PLATELET COMMENT ADEQUATE; POLYCHROMASIA 1+
[2020-02-28] MEDS ORDERED: AZTREONAM INJ 1 GM VIAL ONE (00:34)
[2020-02-28 00:35] LABS: HEMOGLOBIN 7.6 g/dL (13.5-17.0)
[2020-02-28] MEDS ORDERED: MAGNESIUM SULFATE/D5W 1 GM/100 ML RTUPB IV ONE (00:59)
[2020-02-28] MEDS ORDERED: POTASSIUM PHOS,M-BASIC-D-BASIC 15 MMOL in NORMAL SALINE 250 ML IV ONE ×2 (01:15→08:00)
[2020-02-28] MEDS: MAGNESIUM SULFATE/D5W 1 GM/100 ML RTUPB IV SCH ×3 (01:16→04:30)
[2020-02-28] MEDS: ALBUTEROL SULFATE 0.083% NEB 2.5 MG/3 ML AMPUL NEB SCH ×4 (02:05→21:09)
[2020-02-28] MEDS ORDERED: MORPHINE SULFATE 10 MG/ML INJ ONE (03:17)
[2020-02-28] MEDS ORDERED: MORPHINE SULFATE 10 MG/ML INJ IV ONE (05:00)
[2020-02-28] MEDS: CALCIUM ACETATE 667 MG CAPSULE PO SCH ×4 (05:21→23:13)
[2020-02-28] MEDS: HEPARIN SOD (PORCINE) 5,000 UNIT/ML 1 ML VIAL SUBCUT SCH ×3 (05:21→22:28)
[2020-02-28 06:07] LABS: ARTERIAL BLOOD BASE EXCESS -1.8 mmol/L; ARTERIAL BLOOD H2CO3 0.87 mmol/L (1.05-1.35); ARTERIAL BLOOD O2 SATURATION 91.6 % (94-98); ARTERIAL BLOOD PH 7.48 (7.35-7.45); ARTERIAL BLOOD TOTAL CO2 21.9 mmol/L (23-27)
[2020-02-28 06:08] LABS: HEMATOCRIT 22.9 % (37.9-51.0); MEAN CORPUSCULAR HGB CONC 31.5 g/dL (32.0-36.0); MEAN CORPUSCULAR VOLUME 89 fl (80-97); PLATELET COUNT 356 10^3/uL (150-450); RED BLOOD COUNT 2.57 10^6/uL (4.35-5.55); RED CELL DISTRIBUTION WIDTH 15.7 % (11.5-14.0); WHITE BLOOD COUNT 20.2 10^3/uL (4.0-10.5)
[2020-02-28 06:12] LABS: ARTERIAL BLOOD FIO2 21%
[2020-02-28 06:26] LABS: ABSOLUTE LYMPHOCYTES# (MANUAL) 0.6 10^3/uL (0.5-4.7); ABSOLUTE MONOCYTES # (MANUAL) 0.4 10^3/uL (0.1-1.4); BASOPHILS % (MANUAL) 0 % (0-2); EOSINOPHILS % (MANUAL) 0 % (0-6); LYMPHOCYTES % (MANUAL) 3 % (13-45); MONOCYTES % (MANUAL) 2 % (3-13); SEGMENTED NEUTROPHILS % (MAN) 95 % (42-78); TOTAL CELLS COUNTED 100
[2020-02-28 06:27] LABS: ANION GAP 6 (5-19); ANISOCYTOSIS 1+; BLOOD UREA NITROGEN 35 mg/dL (7-20); CALCIUM 7.6 mg/dL (8.4-10.2); CARBON DIOXIDE 23 mmol/L (22-30); CHLORIDE 119 mmol/L (98-107); GLUCOSE 153 mg/dL (75-110); PHOSPHORUS 2.3 mg/dL (2.5-4.5); PLATELET COMMENT ADEQUATE; POTASSIUM 3.5 mmol/L (3.6-5.0)
[2020-02-28 06:28] LABS: HEMOGLOBIN 7.2 g/dL (13.5-17.0)
[2020-02-28] MEDS ORDERED: POTASSIUM PHOS,M-BASIC-D-BASIC 15 MMOL in NORMAL SALINE 250 ML IV PRN (08:00)
[2020-02-28] MEDS: INSULIN REG, HUMAN 100 UNIT/ML 3 ML VIAL (PYX) SUBCUT SCH ×4 (08:13→22:37)
--- NOTE | 2020-02-28 08:36 | RADIOLOGY REPORT (SQ) ---
EXAM DESCRIPTION: CHEST SINGLE VIEW IMAGES COMPLETED DATE/TIME: 02/28/2020 6:25 am REASON FOR STUDY: ETT tube COMPARISON: AP view of the chest from 02/27/2020. EXAM PARAMETERS: NUMBER OF VIEWS: One view. TECHNIQUE: An AP view of the chest was obtained. RADIATION DOSE: NA LIMITATIONS: None. FINDINGS: LUNGS AND PLEURA: Unchanged radiographic appearance of the lungs and pleura. MEDIASTINUM AND HILAR STRUCTURES: Stable mediastinal and hilar contours. HEART AND VASCULAR STRUCTURES: Stable cardiac silhouette. BONES: No acute findings. HARDWARE: The tip of the endotracheal tube projects 2.8 cm above the laura. The tip of the enteric tube projects past the gastroesophageal junction and outside the field of view of the radiograph. Th e tip of the right IJ central venous catheter projects within the right atrium. OTHER: ACDF hardware. IMPRESSION: Tubes and lines as above. Otherwise unchanged radiographic appearance of the chest. TECHNICAL DOCUMENTATION: JOB ID: [id number] 2010 [employer]- All Rights Reserved Reading location - IP/workstation name: [email or web address]
[2020-02-28] MEDS: BUDESONIDE NEB 0.25 MG/2 ML AMPUL NEB SCH (09:29)
[2020-02-28] MEDS: AZTREONAM 1 GM in DEXTROSE 5%-WATER 50 ML IV SCH ×2 (10:41→22:28)
[2020-02-28] MEDS: INSULIN GLARGINE,HUM.REC.ANLOG 1,000 UNIT/10 ML VIAL SUBCUT SCH ×2 (10:42→22:37)
[2020-02-28] MEDS: METOPROLOL TARTRATE 25 MG TABLET PO SCH ×2 (10:42→22:32)
[2020-02-28] MEDS: FAMOTIDINE 20 MG TABLET PO SCH (10:47)
[2020-02-28 11:30] LABS: HEMATOCRIT 23.3 % (37.9-51.0); MEAN CORPUSCULAR HEMOGLOBIN 28.4 pg (27.0-33.4); MEAN CORPUSCULAR HGB CONC 32.2 g/dL (32.0-36.0); MEAN CORPUSCULAR VOLUME 88 fl (80-97); PLATELET COUNT 355 10^3/uL (150-450); RED BLOOD COUNT 2.64 10^6/uL (4.35-5.55); RED CELL DISTRIBUTION WIDTH 16.2 % (11.5-14.0); WHITE BLOOD COUNT 17.4 10^3/uL (4.0-10.5)
[2020-02-28 11:35] LABS: HEMOGLOBIN 7.5 g/dL (13.5-17.0)
[2020-02-28 12:24] LABS: BLOOD UREA NITROGEN 34 mg/dL (7-20); CALCIUM 7.8 mg/dL (8.4-10.2); GLUCOSE 125 mg/dL (75-110); POTASSIUM 3.7 mmol/L (3.6-5.0)
[2020-02-28 12:33] LABS: CARBON DIOXIDE 24 mmol/L (22-30); CHLORIDE 119 mmol/L (98-107)
[2020-02-28 12:36] LABS: ANION GAP 4 (5-19)
--- NOTE | 2020-02-28 20:45 | PDOC CRITICAL CARE PROG REPORT ---
General Date:: 02/28/20 ICU Day:: 2 - Second ICU stay Ventilator Day:: 2 Hospital Day:: 36 Resuscitation Status: Full Code Medical Power of Legal Administrative Assistant: None Events in the past 12 to 24 Hours:: This 60-year-old male with COVID-19 pneumonia was initially admitted o n 01/24/2020 to the ICU after presenting with fever, shortness of breath, orthostatic hypotension, dizziness and hypoxia. He was admitted to the ICU with acute hypoxemic respiratory failure and was placed on BiPAP support. Chest x- ray at that time was compatible with bilateral pneumonia. COVID-19 testing was subsequently POSITIVE. On 01/29/2020, the patient required endotracheal intubation and mechanical ventilatory support, ultimately for worsening hypercapnia. He self-extubated on 02/11 but was able to tolerate support with a high flow nasal cannula. However, he subsequently developed worsening hypoxemia and required endotracheal intubation again on 02/17. He liberated from mechanical ventilatory support on 02/22 and was transferred out on the same day. He returns to us today after the hospitalist team raise concern for altered mental status and profound hypoxemia despite BiPAP support. More concerning, ABG showed that the patient was in acute hypercapnic respiratory failure (pH 7.12, PCO2 90). Case was discussed with Rema Toledo NP. I agreed that the patient should be intubated. Endotracheal intubation was performed by the anesthesia service. The patient was transferred to ICU. 02/27: Successfully extubated this morning, after spending the evening on PSVT 10/5, FiO2 21%. Patient is awake, alert and interactive. He nods his head that he wishes to be extubated. WBC 41.1>20.8>17.4. On empiric Zosyn/vancomycin. Trach aspirate (02/26) shows reduced normal julian, Leah and few gram-positive cocci in pairs and clusters. On empiric aztreonam. Review of systems relevant to events:: Respiratory: Acute hypercapnic respiratory failure, COVID-19 pneumonia Cardiovascular: Hypotension/septic shock Neurologic: Altered mental status Reason for ICU Addmission:: Acute hypercapnic respiratory failure - Medications: Medications reviewed and adjusted accordingly: Yes Physical Exam Vital Signs: Temp Pulse Resp BP Pulse Ox 99.3 F 97 21 H 113/98 H 99 02/28/20 12:00 02/28/20 14:18 02/28/20 15:00 02/28/20 14:55 02/28/20 15:00 Intake & Output 02/27/20 02/28/20 02/29/20 06:59 06:59 06:59 Intake Total 1480 295 Output Total 0 1780 525 Balance 1480 -1485 -525 Weight 63.4 kg 64.7 kg Weight/Height Weight 64.7 kg Height 1.7 m General appearance: PRESENT: no acute distress, well-developed, well-nourished Head exam: PRESENT: atraumatic, normocephalic Eye exam: PRESENT: conjunctiva pink, EOMI, PERRLA. ABSENT: scleral icterus Mouth exam: PRESENT: moist, tongue midline Neck exam: ABSENT: carotid bruit, JVD, lymphadenopathy, thyromegaly Respiratory exam: PRESENT: crackles. ABSENT: rales, rhonchi, wheezes Cardiovascular exam: PRESENT: RRR. ABSENT: diastolic murmur, rubs, systolic murmur Pulses: PRESENT: normal dorsalis pedis pul GI/Abdominal exam: PRESENT: normal bowel sounds, soft. ABSENT: distended, guarding, mass, organolmegaly, rebound, tenderness Extremities exam: PRESENT: full ROM. ABSENT: calf tenderness, clubbing, pedal edema Musculoskeletal exam: PRESENT: normal inspection. ABSENT: deformity Neurological exam: PRESENT: alert, awake, CN II-XII grossly intact. ABSENT: motor sensory deficit Psychiatric exam: ABSENT: homicidal ideation, suicidal ideation Skin exam: PRESENT: dry, intact, warm. ABSENT: cyanosis, rash Laboratory/Radiographs Laboratory Results: 02/28/20 11:05 02/28/20 11:05 02/27/20 02/28/20 02/28/20 12:50 00:00 00:00 WBC 20.8 H RBC 2.72 L Hgb 7.6 L Hct 24.2 L MCV 89 MCH 28.0 MCHC 31.5 L RDW 16.1 H Plt Count 386 Seg Neutrophils % Not Reportable Carbonic Acid HCO3/H2CO3 Ratio ABG pH ABG pCO2 ABG pO2 ABG HCO3 ABG O2 Saturation ABG Base Excess FiO2 Sodium 146.5 H Potassium 3.6 Chloride 119 H Carbon Dioxide 24 Anion Gap 4 L BUN 36 H Creatinine 1.12 Est GFR ( Amer) > 60 Glucose 89 Calcium 7.5 L Phosphorus 2.4 L Magnesium 1.5 L Urine Color YELLOW Urine Appearance SLIGHTLY-CLOUDY Urine pH 5.0 Ur Specific [place] 1.006 Urine Protein NEGATIVE Urine Glucose (UA) >=500 H Urine Ketones NEGATIVE Urine Blood SMALL H Urine Nitrite NEGATIVE Ur Leukocyte Esterase LARGE H Urine WBC (Auto) 29 Urine RBC (Auto) 10 Blood Type Antibody Screen 02/28/20 02/28/20 02/28/20 05:44 05:44 05:44 WBC 20.2 H RBC 2.57 L Hgb 7.2 L Hct 22.9 L MCV 89 MCH 28.0 MCHC 31.5 L RDW 15.7 H Plt Count 356 Seg Neutrophils % Not Reportable Carbonic Acid 0.87 L HCO3/H2CO3 Ratio 24:1 ABG pH 7.48 H ABG pCO2 29.0 L ABG pO2 56.0 L ABG HCO3 21.0 ABG O2 Saturation 91.6 L ABG Base Excess -1.8 FiO2 21% Sodium 147.8 H Potassium 3.5 L Chloride 119 H Carbon Dioxide 23 Anion Gap 6 BUN 35 H Creatinine 1.27 H Est GFR ( Amer) > 60 Glucose 153 H Calcium 7.6 L Phosphorus 2.3 L Magnesium 2.3 Urine Color Urine Appearance Urine pH Ur Specific [place] Urine Protein Urine Glucose (UA) Urine Ketones Urine Blood Urine Nitrite Ur Leukocyte Esterase Urine WBC (Auto) Urine RBC (Auto) Blood Type Antibody Screen 02/28/20 02/28/20 02/28/20 11:05 11:05 12:00 WBC 17.4 H RBC 2.64 L Hgb 7.5 L Hct 23.3 L MCV 88 MCH 28.4 MCHC 32.2 RDW 16.2 H Plt Count 355 Seg Neutrophils % Carbonic Acid HCO3/H2CO3 Ratio ABG pH ABG pCO2 ABG pO2 ABG HCO3 ABG O2 Saturation ABG Base Excess FiO2 Sodium 146.5 H Potassium 3.7 Chloride 119 H Carbon Dioxide 24 Anion Gap 4 L BUN 34 H Creatinine 1.23 Est GFR ( Amer) > 60 Glucose 125 H Calcium 7.8 L Phosphorus Magnesium 2.2 Urine Color Urine Appearance Urine pH Ur Specific [place] Urine Protein Urine Glucose (UA) Urine Ketones Urine Blood Urine Nitrite Ur Leukocyte Esterase Urine WBC (Auto) Urine RBC (Auto) Blood Type A POSITIVE Antibody Screen NEGATIVE 01/24/20 01/24/20 01/24/20 00:03 00:03 04:20 Creatine Kinase 80 CK-MB (CK-2) 0.63 Troponin I 0.132 0.133 NT-Pro-B Natriuret Pep [id number] H 01/24/20 01/24/20 01/24/20 10:43 17:19 23:06 Creatine Kinase CK-MB (CK-2) Troponin I 0.114 0.079 0.075 NT-Pro-B Natriuret Pep 87597 H 01/30/20 01/31/20 02/01/20 03:45 05:39 06:14 Creatine Kinase CK-MB (CK-2) Troponin I NT-Pro-B Natriuret Pep 37257 H 14472 H 14200 H 02/02/20 02/27/20 02/27/20 04:24 08:12 08:12 Creatine Kinase 33 L CK-MB (CK-2) 2.16 Troponin I 0.013 NT-Pro-B Natriuret Pep 33145 H 02/27/20 02/28/20 08:12 05:44 Creatine Kinase CK-MB (CK-2) Troponin I NT-Pro-B Natriuret Pep 56928 H 59192 H Impressions: KUB X-Ray 02/23/20 17:08 IMPRESSION: NG tube placement. Chest X-Ray 02/28/20 05:00 IMPRESSION: Tubes and lines as above. Otherwise unchanged radiographic appearance of the chest. All labs, radiographs, diagnostic studies and EKGs were personally reviewed: Yes In addition, reports of radiographic and diagnostic studies were read: Yes Assessment and Plan - Diagnosis (1) Pneumonia due to COVID-19 virus Is this a current diagnosis for this admission?: Yes Plan: Clinically and radiographically significantly improved his admission film. Already completed Plaquenil. On Decadron 4 mg IV every 12 hours. Review of orders suggest that the patient has pleaded a more than sufficient course of Decadron for COVID-19 pneumonia. He was recently restarted on Decadron, perhaps for empiric treatment of an unexplained decrease in blood pressure (albeit, normotensive). In the absence of a compelling indication, I will discontinue Decadron at this time. Gram stain (02/26) showed reduced normal julian with few gram-positive cocci in pairs and clusters. On empiric aztreonam (7-day course). (2) Acute systolic heart failure Is this a current diagnosis for this admission?: Yes Plan: 2D echo (02/17/2020): LVEF 40-45% with mild LV diastolic dysfunction. proBNP 18,800>11,100. (3) Acute hypercapnic respiratory failure Is this a current diagnosis for this admission?: Yes Plan: This latest bout of respiratory failure appears to be secondary to different pathophysiology than his previous episodes that required endotracheal intubation. Although he does have an elevated A-a gradient, his PO2 was noted to be ~ 350. Of note, this is his third intubation during this hospitalization. Urine drug screen was negative. (4) Chronically on opiate therapy Is this a current diagnosis for this admission?: Yes (5) Acute worsening of stage 4 chronic kidney disease Is this a current diagnosis for this admission?: Yes (6) Elevated troponin level Is this a current diagnosis for this admission?: Yes (7) Diabetes type 2, uncontrolled Qualifiers: Glycemic state: with hyperglycemia Qualified Code(s): E11.65 - Type 2 diabetes mellitus with hyperglycemia Is this a current diagnosis for this admission?: Yes (8) Acute respiratory failure due to severe acute respiratory syndrome coronavirus 2 (SARS-CoV-2) infection Is this a current diagnosis for this admission?: Yes (9) Hypotension Is this a current diagnosis for this admission?: Yes Plan: Resolved Critical Time Critical Time (minutes): 60 Level of Care: ICU -: 1. The care of a critical patient is a dynamic process. This note is a customer solutions representative synopsis but static in nature. The timeframe for treatments given in order is not necessarily the actual time these treatments may have been done. 2. This patient requires critical care secondary to ongoing requirements for therapy not offered or safe outside the critical care environment. Transfer to a lower level of care will result in altered life or limb morbidity and mortality. 3. Multidisciplinary rounds completed. 4. ABCDE bundle addressed.
[2020-02-29] MEDS: ALBUTEROL SULFATE 0.083% NEB 2.5 MG/3 ML AMPUL NEB SCH ×4 (02:16→20:23)
[2020-02-29] MEDS ORDERED: DEXTROSE 5%-WATER 1000 ML 1,000 ML IV PRN (04:05)
[2020-02-29 04:14] LABS: C DIFFICILE GDH NEGATIVE (NEGATIVE)
[2020-02-29] MEDS: CALCIUM ACETATE 667 MG CAPSULE PO SCH ×3 (05:16→18:49)
[2020-02-29] MEDS: HEPARIN SOD (PORCINE) 5,000 UNIT/ML 1 ML VIAL SUBCUT SCH ×3 (05:16→22:26)
[2020-02-29 06:06] LABS: ABSOLUTE EOSINOPHILS # (AUTO) 0.2 10^3/uL (0.0-0.6); ABSOLUTE MONOCYTES (AUTO) 0.9 10^3/uL (0.1-1.4); ABSOLUTE NEUT (AUTO) 9.8 10^3/uL (1.7-8.2); BASOPHILS % (AUTO) 0.3 % (0-2); EOSINOPHILS % (AUTO) 1.7 % (0-6); HEMATOCRIT 23.5 % (37.9-51.0); LYMPHOCYTES % (AUTO) 8.2 % (13-45); MEAN CORPUSCULAR HEMOGLOBIN 28.1 pg (27.0-33.4); MEAN CORPUSCULAR HGB CONC 31.5 g/dL (32.0-36.0); MEAN CORPUSCULAR VOLUME 89 fl (80-97); MONOCYTES % (AUTO) 7.9 % (3-13); PLATELET COUNT 354 10^3/uL (150-450); RED BLOOD COUNT 2.63 10^6/uL (4.35-5.55); RED CELL DISTRIBUTION WIDTH 16.5 % (11.5-14.0); SEGMENTED NEUTROPHILS % (AUTO) 81.9 % (42-78); TOTAL CELLS COUNTED % (AUTO) 100 %
[2020-02-29 06:19] LABS: HEMOGLOBIN 7.4 g/dL (13.5-17.0)
[2020-02-29 06:22] LABS: BLOOD UREA NITROGEN 32 mg/dL (7-20); CALCIUM 7.9 mg/dL (8.4-10.2); CARBON DIOXIDE 24 mmol/L (22-30); CHLORIDE 120 mmol/L (98-107); GLUCOSE 86 mg/dL (75-110); PHOSPHORUS 2.9 mg/dL (2.5-4.5); POTASSIUM 3.8 mmol/L (3.6-5.0)
[2020-02-29 06:33] LABS: ANION GAP 3 (5-19)
[2020-02-29] MEDS: INSULIN REG, HUMAN 100 UNIT/ML 3 ML VIAL (PYX) SUBCUT SCH ×4 (08:43→22:36)
[2020-02-29] MEDS: AZTREONAM 1 GM in DEXTROSE 5%-WATER 50 ML IV SCH ×2 (09:29→22:27)
[2020-02-29] MEDS: METOPROLOL TARTRATE 25 MG TABLET PO SCH ×2 (09:29→22:26)
[2020-02-29] MEDS: INSULIN GLARGINE,HUM.REC.ANLOG 1,000 UNIT/10 ML VIAL SUBCUT SCH ×2 (09:30→22:37)
[2020-02-29] MEDS: FAMOTIDINE 20 MG TABLET PO SCH (09:30)
[2020-02-29] MEDS ORDERED: FUROSEMIDE INJ/PF 40 MG/4 ML SDV IV ONE (12:45)
[2020-02-29] MEDS ORDERED: POTASSIUM CHLORIDE 20 MEQ PACKET PO ONE (12:45)
--- NOTE | 2020-02-29 17:47 | PDOC CRITICAL CARE PROG REPORT ---
General Date:: 02/29/20 ICU Day:: 3 - 2nd ICU stay Hospital Day:: 37 Resuscitation Status: Full Code Medical Power of Reamer Hand: None Events in the past 12 to 24 Hours:: This 60-year-old male with COVID-19 pneumonia was initially admitted on 01/24/2020 to the ICU after presenting with fever, shortness of breath, orthostatic hypotension, dizziness and hypoxia. He was admitted to the ICU with acute hypoxemic respiratory failure and was placed on BiPAP support. Chest x- ray at that time was compatible with bilateral pneumonia. COVID-19 testing was subsequently POSITIVE. On 01/29/2020, the patient required endotracheal intubation and mechanical ventilatory support, ultimately for worsening hypercapnia. He self-extubated on 02/11 but was able to tolerate support with a high flow nasal cannula. However, he subsequently developed worsening hypoxemia and required endotracheal intubation again on 02/17. He liberated from mechanical ventilatory support on 02/22 and was transferred out on the same day. He returns to us today after the hospitalist team raise concern for altered mental status and profound hypoxemia despite BiPAP support. More concerning, ABG showed that the patient was in acute hypercapnic respiratory failure (pH 7.12, PCO2 90). Case was discussed with Rema Toledo NP. I agreed that the patient should be intubated. Endotracheal intubation was performed by the anesthesia service. The patient was transferred to ICU. 02/27: Successfully extubated this morning, after spending the evening on PSVT 10/5, FiO2 21%. Patient is awake, alert and interactive. He nods his head that he wishes to be extubated. WBC 41.1>20.8>17.4. On empiric Zosyn/vancomyc in. Trach aspirate (02/26) shows reduced normal julian, Leah and few gram- positive cocci in pairs and clusters. On empiric aztreonam. 02/28: Remains extubated. On 5 LPM via nasal cannula. Awake, alert and interactive. Brace of personality (particularly to his nurse). WBC 41.1>20.8>12. Trach aspirate from 02/26 showed 4+ PMNs, 1+ budding yeast and few gram-positive cocci in pairs and clusters. Urine culture (02/26) again isolated VSE, previously isolated on 02/05. Currently on aztreonam (known penicillin allergy but tolerating aztreonam without adverse reaction). proBNP 16,400. Review of systems relevant to events:: Respiratory: Acute hypercapnic respiratory failure, COVID-19 pneumonia Cardiovascular: Hypotension/septic shock Neurologic: Altered mental status Reason for ICU Addmission:: Acute hypercapnic respiratory failure - Medications: Medications reviewed and adjusted accordingly: Yes Physical Exam Vital Signs: Temp Pulse Resp BP Pulse Ox 98.8 F 98 20 134/79 H 98 02/29/20 08:00 02/29/20 08:00 02/29/20 09:56 02/29/20 09:56 02/29/20 09:56 Intake & Output 02/28/20 02/29/20 03/01/20 06:59 06:59 06:59 Intake Total 295 130 Output Total 1780 1415 120 Balance -1485 -1285 -120 Weight 64.7 kg 63.5 kg Weight/Height Weight 63.5 kg Height 1.7 m General appearance: PRESENT: no acute distress, well-developed, well-nourished Head exam: PRESENT: atraumatic, normocephalic Eye exam: PRESENT: conjunctiva pink, EOMI, PERRLA. ABSENT: scleral icterus Mouth exam: PRESENT: moist, tongue midline Neck exam: ABSENT: carotid bruit, JVD, lymphadenopathy, thyromegaly Respiratory exam: PRESENT: crackles, rales, rhonchi, unlabored Cardiovascular exam: PRESENT: RRR. ABSENT: diastolic murmur, rubs, systolic murmur Vascular exam: PRESENT: normal capillary refill GI/Abdominal exam: PRESENT: normal bowel sounds, soft. ABSENT: distended, guarding, mass, organolmegaly, rebound, tenderness Gentrourinary exam: PRESENT: indwelling catheter Extremities exam: PRESENT: full ROM. ABSENT: calf tenderness, clubbing, pedal edema Musculoskeletal exam: PRESENT: normal inspection. ABSENT: deformity Neurological exam: PRESENT: alert, awake, reflexes normal, CN II-XII grossly intact. ABSENT: motor sensory deficit Psychiatric exam: ABSENT: agitated, anxious Skin exam: PRESENT: dry, intact, warm. ABSENT: cyanosis, rash Laboratory/Radiographs Laboratory Results: 02/29/20 05:35 02/29/20 05:35 02/28/20 02/28/20 02/29/20 11:05 12:00 05:35 WBC RBC Hgb Hct MCV MCH MCHC RDW Plt Count Seg Neutrophils % Sodium 146.5 H 146.5 H Potassium 3.7 3.8 Chloride 119 H 120 H Carbon Dioxide 24 24 Anion Gap 4 L 3 L BUN 34 H 32 H Creatinine 1.23 1.19 Est GFR ( Amer) > 60 > 60 Glucose 125 H 86 Calcium 7.8 L 7.9 L Phosphorus 2.9 Magnesium 2.2 2.1 Blood Type A POSITIVE Antibody Screen NEGATIVE 02/29/20 05:35 WBC 12.0 H RBC 2.63 L Hgb 7.4 L Hct 23.5 L MCV 89 MCH 28.1 MCHC 31.5 L RDW 16.5 H Plt Count 354 Seg Neutrophils % 81.9 H Sodium Potassium Chloride Carbon Dioxide Anion Gap BUN Creatinine Est GFR ( Amer) Glucose Calcium Phosphorus Magnesium Blood Type Antibody Screen 02/27/20 12:50 Tracheal Aspirate Gram Stain - Final 02/27/20 12:50 Tracheal Aspirate Sputum Culture - Final C.albicans/C.dubliniensis Greatly Reduced Normal Julian 02/27/20 12:50 Varner Catheter Urine Culture - Final Enterococcus Faecalis(Group D) Yeast, Not Leah Albicans 01/24/20 01/24/20 01/24/20 00:03 00:03 04:20 Creatine Kinase 80 CK-MB (CK-2) 0.63 Troponin I 0.132 0.133 NT-Pro-B Natriuret Pep 52702 H 01/24/20 01/24/20 01/24/20 10:43 17:19 23:06 Creatine Kinase CK-MB (CK-2) Troponin I 0.114 0.079 0.075 NT-Pro-B Natriuret Pep 28165 H 01/30/20 01/31/20 02/01/20 03:45 05:39 06:14 Creatine Kinase CK-MB (CK-2) Troponin I NT-Pro-B Natriuret Pep 68242 H 10420 H 24901 H 02/02/20 02/27/20 02/27/20 04:24 08:12 08:12 Creatine Kinase 33 L CK-MB (CK-2) 2.16 Troponin I 0.013 NT-Pro-B Natriuret Pep 05723 H 02/27/20 02/28/20 02/29/20 08:12 05:44 05:35 Creatine Kinase CK-MB (CK-2) Troponin I NT-Pro-B Natriuret Pep 03715 H 97757 H 97210 H Impressions: KUB X-Ray 02/23/20 17:08 IMPRESSION: NG tube placement. Chest X-Ray 02/28/20 05:00 IMPRESSION: Tubes and lines as above. Otherwise unchanged radiographic appearance of the chest. All labs, radiographs, diagnostic studies and EKGs were personally reviewed: Yes In addition, reports of radiographic and diagnostic studies were read: Yes Assessment and Plan - Diagnosis (1) Acute hypercapnic respiratory failure Is this a current diagnosis for this admission?: Yes Plan: This latest bout of respiratory failure appears to be secondary to different pathophysiology than his previous episodes that required endotracheal intubation perhaps related to recurrent enterococcal urinary tract infection. Although he does have an elevated A-a gradient, his PO2 was noted to be ~ 350. Of note, this is his third intubation during this hospitalization. (2) Sepsis due to urinary tract infection Is this a current diagnosis for this admission?: Yes Plan: Overall, improving. Hemodynamically stable. I suspect that this may be the primary etiology of the patient's most recent need for endotracheal intubation and mechanical ventilatory support. He is experiencing recurrent enterococcal urinary tract infections during this hospitalization. Remove Varner catheter as soon as possible; however, he does need to continue to have strict I's and O's monitored at this time in light of his systolic heart failure. He was initiated on aztreonam, which appears to be effectively treating his enterococcal urinary tract infection. He may need to consider chronic suppression with Macrodantin. (3) UTI (urinary tract infection) due to Enterococcus Is this a current diagnosis for this admission?: Yes Plan: He is experiencing recurrent enterococcal urinary tract infections during this hospitalization. Remove Varner catheter. He was initiated on aztreonam, which appears to be effectively treating his enterococcal urinary tract infection. He may need to consider chronic suppression with Macrodantin. (4) Pneumonia due to COVID-19 virus Is this a current diagnosis for this admission?: Yes Plan: Clinically and radiographically significantly improved his admission film. Already completed Plaquenil and Decadron. (5) Acute systolic heart failure Is this a current diagnosis for this admission?: Yes Plan: 2D echo (02/17/2020): LVEF 40-45% with mild LV diastolic dysfunction. proBNP 18,800>11,63022,400. Furosemide 40 mg IV single dose. Potassium chloride 40 mEq p.o. single dose. (6) Elevated troponin level Is this a current diagnosis for this admission?: Yes Plan: Was originally initiated on heparin infusion but has been changed over to heparin 5000 units subcutaneously every 8 hours. Restart Lopressor 25 mg NG twice daily. (7) Chronically on opiate therapy Is this a current diagnosis for this admission?: Yes (8) Acute worsening of stage 4 chronic kidney disease Is this a current diagnosis for this admission?: Yes (9) Diabetes type 2, uncontrolled Qualifiers: Glycemic state: with hyperglycemia Qualified Code(s): E11.65 - Type 2 diabetes mellitus with hyperglycemia Is this a current diagnosis for this admission?: Yes (10) Acute respiratory failure due to severe acute respiratory syndrome coronavirus 2 (SARS-CoV-2) infection Is this a current diagnosis for this admission?: Yes (11) Hypotension Is this a current diagnosis for this admission?: Yes Plan Summary: I have had a conversation with this patient today about overall goals of care. He reports that he is estranged from the rest of his family and has no designated surrogate decision maker. He states that he is agreeable to placement in a long-term facility or rehab facility, as needed. Jose acosta, he reiterates his wish to remain FULL CODE. Critical Time Critical Time (minutes): 60 Level of Care: ICU -: 1. The care of a critical patient is a dynamic process. This note is a credit and collections representative synopsis but static in nature. The timeframe for treatments given in order is not necessarily the actual time these treatments may have been done. 2. This patient requires critical care secondary to ongoing requirements for therapy not offered or safe outside the critical care environment. Transfer to a lower level of care will result in altered life or limb morbidity and mortality. 3. Multidisciplinary rounds completed. 4. ABCDE bundle addressed.
[2020-03-01] MEDS: CALCIUM ACETATE 667 MG CAPSULE PO SCH ×4 (00:12→18:25)
[2020-03-01] MEDS: ALBUTEROL SULFATE 0.083% NEB 2.5 MG/3 ML AMPUL NEB SCH ×4 (01:38→19:57)
[2020-03-01] MEDS ORDERED: PROPOFOL 1,000 MG/100 ML INFUS..BTL IV ONE (02:38)
[2020-03-01] MEDS ORDERED: DEXTROSE 5%-WATER 250 ML with NOREPINEPHRINE BITARTRATE 4 MG IV PRN ×2 (02:58)
[2020-03-01] MEDS: PROPOFOL 1,000 MG/100 ML INFUS..BTL IV PRN ×2 (03:00→06:18)
[2020-03-01] MEDS ORDERED: SUCCINYLCHOLINE CHLORIDE INJ 200 MG/10 ML VIAL IV ONE (03:13)
[2020-03-01 03:22] LABS: ARTERIAL BLOOD BASE EXCESS -1.4 mmol/L; ARTERIAL BLOOD FIO2 100%; ARTERIAL BLOOD H2CO3 1.54 mmol/L (1.05-1.35); ARTERIAL BLOOD O2 SATURATION 99.8 % (94-98); ARTERIAL BLOOD PCO2 51.1 mmHg (35-45); ARTERIAL BLOOD PH 7.31 (7.35-7.45); ARTERIAL BLOOD PO2 379.4 mmHg (80-100); ARTERIAL BLOOD TOTAL CO2 26.6 mmol/L (23-27)
[2020-03-01 03:25] LABS: ABSOLUTE EOSINOPHILS # (AUTO) 0.2 10^3/uL (0.0-0.6); ABSOLUTE LYMPHOCYTES (AUTO) 0.6 10^3/uL (0.5-4.7); ABSOLUTE MONOCYTES (AUTO) 1.1 10^3/uL (0.1-1.4); ABSOLUTE NEUT (AUTO) 9.3 10^3/uL (1.7-8.2); BASOPHILS % (AUTO) 0.1 % (0-2); EOSINOPHILS % (AUTO) 1.8 % (0-6); HEMATOCRIT 24.3 % (37.9-51.0); LYMPHOCYTES % (AUTO) 5.6 % (13-45); MEAN CORPUSCULAR HEMOGLOBIN 28.6 pg (27.0-33.4); MEAN CORPUSCULAR HGB CONC 32.1 g/dL (32.0-36.0); MEAN CORPUSCULAR VOLUME 89 fl (80-97); MONOCYTES % (AUTO) 9.5 % (3-13); PLATELET COUNT 359 10^3/uL (150-450); RED BLOOD COUNT 2.72 10^6/uL (4.35-5.55); TOTAL CELLS COUNTED % (AUTO) 100 %; WHITE BLOOD COUNT 11.2 10^3/uL (4.0-10.5)
[2020-03-01 03:28] LABS: HEMOGLOBIN 7.8 g/dL (13.5-17.0)
[2020-03-01 03:35] LABS: BLOOD UREA NITROGEN 30 mg/dL (7-20); CALCIUM 7.7 mg/dL (8.4-10.2); CARBON DIOXIDE 26 mmol/L (22-30); GLUCOSE 73 mg/dL (75-110); PHOSPHORUS 2.9 mg/dL (2.5-4.5); POTASSIUM 4.1 mmol/L (3.6-5.0)
[2020-03-01 03:40] LABS: CHLORIDE 115 mmol/L (98-107)
[2020-03-01 03:41] LABS: ANION GAP 4 (5-19)
--- NOTE | 2020-03-01 03:43 | RADIOLOGY REPORT (SQ) ---
CLINICAL INDICATION: INTUBATION. TECHNIQUE: A single portable AP view was obtained of the chest at 0251 hours. COMPARISON: February 28, 2020. FINDINGS: The cardiomediastinal silhouette is prominent but stable. Artifact overlying the chest. The lungs demonstrates interstitial alveolar space disease bilaterally. No adverse change. Aeration appears be mildly improved. No significant pleural fluid. No pneumothorax. Endotracheal tube tip in good position. Right IJ central venous catheter tip projects over right atrium, adequate. Nasogastric tube tip is not seen but occluded below the diaphragm. IMPRESSION: Improved aeration.
[2020-03-01] MEDS: HEPARIN SOD (PORCINE) 5,000 UNIT/ML 1 ML VIAL SUBCUT SCH ×3 (06:18→22:19)
[2020-03-01] MEDS: INSULIN REG, HUMAN 100 UNIT/ML 3 ML VIAL (PYX) SUBCUT SCH ×4 (07:33→22:18)
[2020-03-01] MEDS: INSULIN GLARGINE,HUM.REC.ANLOG 1,000 UNIT/10 ML VIAL SUBCUT SCH ×2 (09:45→22:19)
[2020-03-01] MEDS: AZTREONAM 1 GM in DEXTROSE 5%-WATER 50 ML IV SCH ×2 (09:55→22:16)
[2020-03-01] MEDS ORDERED: SUCCINYLCHOLINE CHLORIDE INJ 200 MG/10 ML VIAL ONE (09:57)
[2020-03-01] MEDS: METOPROLOL TARTRATE 25 MG TABLET PO SCH ×2 (10:23→22:16)
[2020-03-01] MEDS: FAMOTIDINE 20 MG TABLET PO SCH (11:45)
[2020-03-01] MEDS ORDERED: ATROPINE SULFATE INJ 1 MG/10 ML DISP.SYRIN IV ONE (14:30)
[2020-03-01] MEDS ORDERED: NOREPINEPHRINE BITARTRATE INJ/PF 4 MG/4 ML SDV IV ONE (14:30)
--- NOTE | 2020-03-01 18:39 | PDOC CRITICAL CARE PROG REPORT ---
General Date:: 03/01/20 ICU Day:: 4 - ICU stay Ventilator Day:: 1 - 4th intubation Hospital Day:: 38 Resuscitation Status: Full Code Medical Power of Seismic Observer: None Events in the past 12 to 24 Hours:: This 60-year-old male with COVID-19 pneumonia was initially admitted on 01/24/2020 to the ICU after presenting with fever, shortness of breath, orthostatic hypotension, dizziness and hypoxia. He was admitted to the ICU with acute hypoxemic respiratory failure and was placed on BiPAP support. Chest x- ray at that time was compatible with bilateral pneumonia. COVID-19 testing was subsequently POSITIVE. On 01/29/2020, the patient required endotracheal int ubation and mechanical ventilatory support, ultimately for worsening hypercapnia. He self-extubated on 02/11 but was able to tolerate support with a high flow nasal cannula. However, he subsequently developed worsening hypoxemia and required endotracheal intubation again on 02/17. He liberated from mechanical ventilatory support on 02/22 and was transferred out on the same day. He returns to us today after the hospitalist team raise concern for altered mental status and profound hypoxemia despite BiPAP support. More concerning, ABG showed that the patient was in acute hypercapnic respiratory failure (pH 7.12, PCO2 90). Case was discussed with Rema Toledo, BLANCO. I agreed that the patient should be intubated. Endotracheal intubation was performed by the anesthesia service. The patient was transferred to ICU. 02/27: Successfully extubated this morning, after spending the evening on PSVT 10/5, FiO2 21%. Patient is awake, alert and interactive. He nods his head that he wishes to be extubated. WBC 41.1>20.8>17.4. On empiric Zosyn/vancomycin. Trach aspirate (02/26) shows reduced normal julian, Leah and few gram-positive cocci in pairs and clusters. On empiric aztreonam. 02/28: Remains extubated. On 5 LPM via nasal cannula. Awake, alert and interactive. Brace of personality (particularly to his nurse). WBC 41.1>20.8>12. Trach aspirate from 02/26 showed 4+ PMNs, 1+ budding yeast and few gram-positive cocci in pairs and clusters. Urine culture (02/26) again isol ated VSE, previously isolated on 02/05. Currently on aztreonam (known penicillin allergy but tolerating aztreonam without adverse reaction). proBNP 16,400. 03/01: Patient developed hypoxia associated with bradycardia arrhythmia. Although cardiopulmonary arrest did not transpire, he did require endotracheal intubation and mechanical ventilatory support. At this time, he is on the ventilator. Awake, alert, follows commands. Dynamically stable. This is his fourth intubation during this hospitalization. He is still on aztreonam. Review of systems relevant to events:: Respiratory: Acute hypercapnic respiratory failure, COVID-19 pneumonia Cardiovascular: Hypotension/septic shock Neurologic: Altered mental status Reason for ICU Addmission:: Acute hypercapnic respiratory failure - Medications: Medications reviewed and adjusted accordingly: Yes Sedation:: Propofol Physical Exam Vital Signs: Temp Pulse Resp BP Pulse Ox 97.3 F 96 24 H 106/67 98 03/01/20 12:00 03/01/20 13:26 03/01/20 13:26 03/01/20 12:00 03/01/20 13:26 Intake & Output 02/29/20 03/01/20 03/02/20 06:59 06:59 06:59 Intake Total 130 1376 Output Total 1415 2645 210 Balance -1285 -1269 -210 Weight 63.5 kg 61.6 kg Weight/Height Weight 61.6 kg Height 1.7 m General appearance: PRESENT: no acute distress, well-developed, well-nourished Head exam: PRESENT: atraumatic, normocephalic Eye exam: PRESENT: conjunctiva pink, EOMI, PERRLA. ABSENT: scleral icterus Mouth exam: PRESENT: moist, tongue midline Neck exam: ABSENT: carotid bruit, JVD, lymphadenopathy, thyromegaly Respiratory exam: PRESENT: rales, rhonchi. ABSENT: wheezes Cardiovascular exam: PRESENT: RRR. ABSENT: diastolic murmur, rubs, systolic mu rmur Pulses: PRESENT: normal dorsalis pedis pul GI/Abdominal exam: PRESENT: normal bowel sounds, soft. ABSENT: distended, guarding, mass, organolmegaly, rebound, tenderness Gentrourinary exam: PRESENT: indwelling catheter Extremities exam: PRESENT: full ROM. ABSENT: calf tenderness, clubbing, pedal edema Neurological exam: PRESENT: alert, awake, reflexes normal, CN II-XII grossly intact. ABSENT: motor sensory deficit Psychiatric exam: ABSENT: agitated, anxious Tubes/Lines: PRESENT: Endotracheal Tube, Central Line Laboratory/Radiographs Laboratory Results: 03/01/20 03:10 03/01/20 03:10 03/01/20 03/01/20 03/01/20 03:10 03:10 03:10 WBC 11.2 H RBC 2.72 L Hgb 7.8 L Hct 24.3 L MCV 89 MCH 28.6 MCHC 32.1 RDW 16.0 H Plt Count 359 Seg Neutrophils % 83.0 H Carbonic Acid HCO3/H2CO3 Ratio ABG pH ABG pCO2 ABG pO2 ABG HCO3 ABG O2 Saturation ABG Base Excess FiO2 Sodium 144.8 Potassium 4.1 Chloride 115 H Carbon Dioxide 26 Anion Gap 4 L BUN 30 H Creatinine 1.13 Est GFR ( Amer) > 60 Glucose 73 L Lactic Acid 0.8 Calcium 7.7 L Phosphorus 2.9 Magnesium 1.7 03/01/20 03:10 WBC RBC Hgb Hct MCV MCH MCHC RDW Plt Count Seg Neutrophils % Carbonic Acid 1.54 H HCO3/H2CO3 Ratio 16:1 ABG pH 7.31 L ABG pCO2 51.1 H ABG pO2 379.4 H ABG HCO3 25.0 H ABG O2 Saturation 99.8 H ABG Base Excess -1.4 FiO2 100% Sodium Potassium Chloride Carbon Dioxide Anion Gap BUN Creatinine Est GFR ( Amer) Glucose Lactic Acid Calcium Phosphorus Magnesium 01/24/20 01/24/20 01/24/20 00:03 00:03 04:20 Creatine Kinase 80 CK-MB (CK-2) 0.63 Troponin I 0.132 0.133 NT-Pro-B Natriuret Pep [id number] H 01/24/20 01/24/20 01/24/20 10:43 17:19 23:06 Creatine Kinase CK-MB (CK-2) Troponin I 0.114 0.079 0.075 NT-Pro-B Natriuret Pep 38308 H 01/30/20 01/31/20 02/01/20 03:45 05:39 06:14 Creatine Kinase CK-MB (CK-2) Troponin I NT-Pro-B Natriuret Pep 36470 H 63279 H 04629 H 07/17/20 08/11/20 08/11/20 04:24 08:12 08:12 Creatine Kinase 33 L CK-MB (CK-2) 2.16 Troponin I 0.013 NT-Pro-B Natriuret Pep 93747 H 02/27/20 02/28/20 02/29/20 08:12 05:44 05:35 Creatine Kinase CK-MB (CK-2) Troponin I NT-Pro-B Natriuret Pep 42901 H 39090 H 19647 H Impressions: KUB X-Ray 02/23/20 17:08 IMPRESSION: NG tube placement. Chest X-Ray 03/01/20 00:00 IMPRESSION: Improved aeration. All labs, radiographs, diagnostic studies and EKGs were personally reviewed: Yes In addition, reports of radiographic and diagnostic studies were read: Yes Assessment and Plan - Diagnosis (1) Acute hypercapnic respiratory failure Is this a current diagnosis for this admission?: Yes Plan: Based on the conversation I had with the patient yesterday evening, it would be most appropriate to pursue tracheostomy and percutaneous gastrostomy placement. Consult surgery. Case discussed with Dr. Gaona, who anticipates performing tracheostomy early next week. Of note, this is his fourth intubation during this hospitalization. (2) Sepsis due to urinary tract infection Is this a current diagnosis for this admission?: Yes Plan: Overall, improving. Hemodynamically stable. I suspect that this may be the primary etiology of the patient's most recent need for endotracheal intubation and mechanical ventilatory support. He is experiencing recurrent enterococcal urinary tract infections during this hospitalization. Remove Varner catheter as soon as possible; however, he does need to continue to have strict I's and O's monitored at this time in light of his systolic heart failure. He was initiated on aztreonam, which appears to be effectively treating his enterococcal urinary tract infection. He may need to consider chronic suppression with Macrodantin. (3) UTI (urinary tract infection) due to Enterococcus Is this a current diagnosis for this admission?: Yes Plan: He is experiencing recurrent enterococcal urinary tract infections during this hospitalization. Remove Varner catheter. He was initiated on aztreonam, which appears to be effectively treating his enterococcal urinary tract infection. He may need to consider chronic suppression with Macrodantin. (4) Pneumonia due to COVID-19 virus Is this a current diagnosis for this admission?: Yes Plan: Clinically and radiographically significantly improved his admission film. Already completed Plaquenil and Decadron. Despite a history of COVID-19 pneumonia during this hospitalization, the patient's respiratory mechanics suggest that he is in the convalescent phase of this particular infection. Consequently, patient may proceed with tracheostomy and percutaneous gastrostomy as soon as the surgeons agreed to proceed. (5) Acute systolic heart failure Is this a current diagnosis for this admission?: Yes Plan: 2D echo (02/17/2020): LVEF 40-45% with mild LV diastolic dysfunction. Check proBNP in a.m. (6) Elevated troponin level Is this a current diagnosis for this admission?: Yes (7) Chronically on opiate therapy Is this a current diagnosis for this admission?: Yes (8) Acute worsening of stage 4 chronic kidney disease Is this a current diagnosis for this admission?: Yes (9) Diabetes type 2, uncontrolled Qualifiers: Glycemic state: with hyperglycemia Qualified Code(s): E11.65 - Type 2 diabetes mellitus with hyperglycemia Is this a current diagnosis for this admission?: Yes (10) Acute respiratory failure due to severe acute respiratory syndrome coronavirus 2 (SARS-CoV-2) infection Is this a current diagnosis for this admission?: Yes (11) Hypotension Is this a current diagnosis for this admission?: Yes Critical Time Critical Time (minutes): 60 Level of Care: ICU -: 1. The care of a critical patient is a dynamic process. This note is a used equipment sales representative synopsis but static in nature. The timeframe for treatments given in order is not necessarily the actual time these treatments may have been done. 2. This patient requires critical care secondary to ongoing requirements for therapy not offered or safe outside the critical care environment. Transfer to a lower level of care will result in altered life or limb morbidity and mor tality. 3. Multidisciplinary rounds completed. 4. ABCDE bundle addressed.
[2020-03-02] MEDS: CALCIUM ACETATE 667 MG CAPSULE PO SCH ×4 (00:27→17:35)
[2020-03-02] MEDS: ALBUTEROL SULFATE 0.083% NEB 2.5 MG/3 ML AMPUL NEB SCH ×4 (02:51→23:39)
[2020-03-02] MEDS: PROPOFOL 1,000 MG/100 ML INFUS..BTL IV PRN ×3 (05:18→19:19)
[2020-03-02] MEDS: HEPARIN SOD (PORCINE) 5,000 UNIT/ML 1 ML VIAL SUBCUT SCH ×3 (05:19→22:14)
[2020-03-02 06:13] LABS: ABSOLUTE EOSINOPHILS # (AUTO) 0.1 10^3/uL (0.0-0.6); ABSOLUTE LYMPHOCYTES (AUTO) 1.4 10^3/uL (0.5-4.7); ABSOLUTE NEUT (AUTO) 11.1 10^3/uL (1.7-8.2); BASOPHILS % (AUTO) 0.2 % (0-2); EOSINOPHILS % (AUTO) 0.7 % (0-6); HEMATOCRIT 23.9 % (37.9-51.0); LYMPHOCYTES % (AUTO) 10.7 % (13-45); MEAN CORPUSCULAR HEMOGLOBIN 28.2 pg (27.0-33.4); MEAN CORPUSCULAR HGB CONC 32.2 g/dL (32.0-36.0); MEAN CORPUSCULAR VOLUME 88 fl (80-97); MONOCYTES % (AUTO) 7.1 % (3-13); PLATELET COUNT 373 10^3/uL (150-450); RED BLOOD COUNT 2.72 10^6/uL (4.35-5.55); RED CELL DISTRIBUTION WIDTH 16.2 % (11.5-14.0); SEGMENTED NEUTROPHILS % (AUTO) 81.3 % (42-78); TOTAL CELLS COUNTED % (AUTO) 100 %; WHITE BLOOD COUNT 13.6 10^3/uL (4.0-10.5)
[2020-03-02 06:14] LABS: ARTERIAL BLOOD BASE EXCESS 1.8 mmol/L; ARTERIAL BLOOD H2CO3 0.92 mmol/L (1.05-1.35); ARTERIAL BLOOD HCO3 24.5 mmol/L (20-24); ARTERIAL BLOOD O2 SATURATION 95.7 % (94-98); ARTERIAL BLOOD PCO2 30.6 mmHg (35-45); ARTERIAL BLOOD PH 7.52 (7.35-7.45); ARTERIAL BLOOD PO2 69.2 mmHg (80-100); ARTERIAL BLOOD TOTAL CO2 25.5 mmol/L (23-27)
[2020-03-02 06:26] LABS: HEMOGLOBIN 7.7 g/dL (13.5-17.0)
--- NOTE | 2020-03-02 06:29 | PDOC CONSULTATION ---
Consultation Consult Date: 03/01/20 Provider Consulted: SURGICAL SURGICALIST MD Consult reason:: Persistent respiratory failure, COVID-19 positive, need for trach and PEG. History of Present Illness Admission Date/PCP: 01/24/20 08:20 GOLD ELENA History of Present Illness: FREDDIE ALZO JR is a 60 year old male seen in consultation at the request of the exhauster service. This is the patient's fourth intubation during this hospitalization. It is unlikely that he will be able to be extubated successfully. The patient is weak and malnourished. Currently the patient is intubated, and a review of systems is unobtainable. Medical history is obtained from the nursing staff, exhauster, and the chart. Past Medical History Cardiac Medical History: Reports: Congestive Heart Failure Denies: Coronary Artery Disease, Hyperlipidema, Hypertension Pulmonary Medical History: Denies: Asthma, Chronic Obstructive Pulmonary Disease (COPD), Respiratory Failure Neurological Medical History: Denies: Seizures Endocrine Medical History: Reports: Diabetes Mellitus Type 2 Renal/ Medical History: Reports: Chronic Kidney Disease, End Stage Renal Disease - Recently diagnosed with stage IV CKD GI Medical History: Denies: Cirrhosis, Hepatitis Musculoskeltal Medical History: Reports: Arthritis Denies: Gout Skin Medical History: Denies: Eczema, Psoriasis Psychiatric Medical History: Reports: Depression Hematology: Reports: Anemia - Recently diagnosed Denies: Bleeding Tendencies Past Surgical History Past Surgical History: Reports: Orthopedic Surgery - Multiple surgeries, Other - Multiple orthopedic surgeries Social History Smoking Status: Unknown if Ever Smoked Electronic Cigarette use?: No Frequency of Alcohol Use: None Hx Recreational Drug Use: No Drugs: None Hx Prescription Drug Abuse: No - Advance Directive Resuscitation Status: Full Code Family History Family History: DM Parental Family History Reviewed: Yes Children Family History Reviewed: Yes Sibling(s) Family History Reviewed.: Yes Medication/Allergy Home Medications: Meloxicam [Mobic 7.5 mg Tablet] 7.5 mg PO Q12HP PRN 01/06/20 Oxycodone HCl [Oxy-Ir 5 mg Tablet] 15 mg PO Q6 01/06/20 Aspirin [Aspirin 81 mg Chewable Tablet] 81 mg PO QHS #0 tab.chew 01/19/20 Atorvastatin Calcium [Lipitor 20 mg Tablet] 20 mg PO QHS #30 tablet 01/19/20 Cefpodoxime Proxetil [Vantin 200 mg Tablet] 200 mg PO Q12 #12 tablet 01/19/20 Gabapentin [Neurontin 100 mg Capsule] 200 mg PO Q8 #180 capsule 01/19/20 Insulin Glargine,Hum.rec.anlog [Lantus Insulin 100 Unit/1 ml 10 ml] 10 unit SUBCUT DAILY #1 vial 01/19/20 Metoprolol Tartrate [Lopressor 25 mg Tablet] 12.5 mg PO Q12 #15 tablet 01/19/20 Meclizine HCl [Antivert 12.5 mg Tablet] 12.5 mg PO Q4HP PRN 01/24/20 Ondansetron [Zofran Odt 4 mg Tablet] 4 mg PO Q4HP PRN 01/24/20 Allergies/Adverse Reactions: iodine Allergy (Verified 01/23/20 23:19) Penicillins Allergy (Verified 01/23/20 23:19) shellfish derived Allergy (Verified 01/23/20 23:19) Sulfa (Sulfonamide Antibiotics) Allergy (Verified 01/23/20 23:19) Review of Systems ROS unobtainable: Due to endotracheal tube Physical Exam Vital Signs: Temp Pulse Resp BP Pulse Ox 99.5 F 96 19 130/75 H 97 03/01/20 16:00 03/01/20 18:00 03/01/20 18:16 03/01/20 18:16 03/01/20 18:16 Intake & Output 02/29/20 03/01/20 03/02/20 06:59 06:59 06:59 Intake Total 130 1376 17 Output Total 1415 2645 520 Balance -1285 -1269 -503 Weight 63.5 kg 61.6 kg 61.6 kg General appearance: PRESENT: no acute distress, other - on vent Head exam: PRESENT: atraumatic Eye exam: ABSENT: scleral icterus Mouth exam: PRESENT: moist Neck exam: ABSENT: tracheal deviation, tracheostomy Respiratory exam: PRESENT: other - coarse bilaterally, on vent Cardiovascular exam: PRESENT: tachycardia - mild Vascular exam: ABSENT: pallor GI/Abdominal exam: PRESENT: soft. ABSENT: distended, tenderness Rectal exam: PRESENT: deferred Extremities exam: ABSENT: clubbing Musculoskeletal exam: ABSENT: ambulatory Neurological exam: ABSENT: alert, awake, oriented to person, oriented to place, oriented to time, oriented to situation Psychiatric exam: ABSENT: agitated, anxious, depressed Focused psych exam: PRESENT: other - on vent Skin exam: ABSENT: jaundice Results Laboratory Results: 03/01/20 03:10 03/01/20 03:10 03/01/20 03/01/20 03/01/20 03:10 03:10 03:10 WBC 11.2 H RBC 2.72 L Hgb 7.8 L Hct 24.3 L MCV 89 MCH 28.6 MCHC 32.1 RDW 16.0 H Plt Count 359 Seg Neutrophils % 83.0 H Carbonic Acid HCO3/H2CO3 Ratio ABG pH ABG pCO2 ABG pO2 ABG HCO3 ABG O2 Saturation ABG Base Excess FiO2 Sodium 144.8 Potassium 4.1 Chloride 115 H Carbon Dioxide 26 Anion Gap 4 L BUN 30 H Creatinine 1.13 Est GFR ( Amer) > 60 Glucose 73 L Lactic Acid 0.8 Calcium 7.7 L Phosphorus 2.9 Magnesium 1.7 03/01/20 03:10 WBC RBC Hgb Hct MCV MCH MCHC RDW Plt Count Seg Neutrophils % Carbonic Acid 1.54 H HCO3/H2CO3 Ratio 16:1 ABG pH 7.31 L ABG pCO2 51.1 H ABG pO2 379.4 H ABG HCO3 25.0 H ABG O2 Saturation 99.8 H ABG Base Excess -1.4 FiO2 100% Sodium Potassium Chloride Carbon Dioxide Anion Gap BUN Creatinine Est GFR ( Amer) Glucose Lactic Acid Calcium Phosphorus Magnesium 01/24/20 01/24/20 01/24/20 00:03 00:03 04:20 Creatine Kinase 80 CK-MB (CK-2) 0.63 Troponin I 0.132 0.133 NT-Pro-B Natriuret Pep 95071 H 01/24/20 01/24/20 01/24/20 10:43 17:19 23:06 Creatine Kinase CK-MB (CK-2) Troponin I 0.114 0.079 0.075 NT-Pro-B Natriuret Pep 35491 H 01/30/20 01/31/20 02/01/20 03:45 05:39 06:14 Creatine Kinase CK-MB (CK-2) Troponin I NT-Pro-B Natriuret Pep 91135 H 25847 H 45217 H 02/02/20 02/27/20 02/27/20 04:24 08:12 08:12 Creatine Kinase 33 L CK-MB (CK-2) 2.16 Troponin I 0.013 NT-Pro-B Natriuret Pep 54613 H 02/27/20 02/28/20 02/29/20 08:12 05:44 05:35 Creatine Kinase CK-MB (CK-2) Troponin I NT-Pro-B Natriuret Pep 86137 H 69641 H 65102 H Impressions: KUB X-Ray 02/23/20 17:08 IMPRESSION: NG tube placement. Chest X-Ray 03/01/20 00:00 IMPRESSION: Improved aeration. Assessment & Plan - Diagnosis (1) Inanition Is this a current diagnosis for this admission?: Yes (2) Acute respiratory failure with hypoxia and hypercapnia Is this a current diagnosis for this admission?: Yes - Plan Summary Plan Summary: 60-year-old male with respiratory failure, and recurrent intubations. The exhauster has requested placement of a tracheostomy and PEG. The patient is COVID-19 positive. I will make arrangements to place the trach and PEG at bedside next week. Either Wednesday or Wednesday. Surgery will follow.
[2020-03-02 06:34] LABS: BLOOD UREA NITROGEN 27 mg/dL (7-20); CALCIUM 7.8 mg/dL (8.4-10.2); CARBON DIOXIDE 28 mmol/L (22-30); CHLORIDE 114 mmol/L (98-107); GLUCOSE 94 mg/dL (75-110); PHOSPHORUS 2.2 mg/dL (2.5-4.5); POTASSIUM 3.7 mmol/L (3.6-5.0)
[2020-03-02 06:38] LABS: ARTERIAL BLOOD FIO2 60%
[2020-03-02 06:41] LABS: PREALBUMIN 8.3 mg/dL (17.6-36.0)
[2020-03-02 06:47] LABS: ANION GAP 3 (5-19)
[2020-03-02] MEDS: INSULIN REG, HUMAN 100 UNIT/ML 3 ML VIAL (PYX) SUBCUT SCH ×4 (08:36→17:41)
[2020-03-02] MEDS: INSULIN GLARGINE,HUM.REC.ANLOG 1,000 UNIT/10 ML VIAL SUBCUT SCH ×2 (10:46→23:39)
[2020-03-02] MEDS: FAMOTIDINE 20 MG TABLET PO SCH (11:04)
[2020-03-02] MEDS: METOPROLOL TARTRATE 25 MG TABLET PO SCH ×2 (11:04→22:14)
[2020-03-02] MEDS: AZTREONAM 1 GM in DEXTROSE 5%-WATER 50 ML IV SCH ×2 (11:04→22:13)
--- NOTE | 2020-03-02 11:41 | RADIOLOGY REPORT (SQ) ---
EXAM DESCRIPTION: CHEST SINGLE VIEW IMAGES COMPLETED DATE/TIME: 03/02/2020 5:56 am REASON FOR STUDY: ETT tube COMPARISON: 03/01/2020 EXAM PARAMETERS: NUMBER OF VIEWS: One view. TECHNIQUE: Single frontal radiographic view of the chest acquired. RADIATION DOSE: NA LIMITATIONS: None. FINDINGS: LUNGS AND PLEURA: Stable pulmonary exam demonstrating mixed interstitial and airspace opac ities diffusely with particular involvement of the lingula/left lower lobe and right upper lobe. No significant pleural effusion. No pneumothorax. MEDIASTINUM AND HILAR STRUCTURES: No masses. Contour normal. HEART AND VASCULAR STRUCTURES: Heart normal in size. Normal vasculature. BONES: No acute findings. HARDWARE: Midline surgical changes. ACDF hardware. Endotracheal tube terminates approximately 2.5 c m cranial to the laura. Right cervical vascular access catheter terminates in the region of the rig ht atrium. Enteric tube terminates subdiaphragmatically out of the imaged field of view. OTHER: No other significant finding. IMPRESSION: 1. Stable pulmonary exam. 2. Stable lines and tubes. TECHNICAL DOCUMENTATION: JOB ID: [id number] [employer]- All Rights Reserved Reading location - IP/workstation name: [email or web address]
[2020-03-02] MEDS ORDERED: FUROSEMIDE INJ/PF 40 MG/4 ML SDV IV ONE (16:00)
[2020-03-02] MEDS ORDERED: POTASSIUM CHLORIDE 20 MEQ PACKET NG ONE (16:00)
--- NOTE | 2020-03-02 17:59 | PDOC CRITICAL CARE PROG REPORT ---
General Date:: 03/02/20 ICU Day:: 5 - ICU stay Ventilator Day:: 2 - 4th intubation Hospital Day:: 39 Resuscitation Status: Full Code Medical Power of Director Of It Operations: None Events in the past 12 to 24 Hours:: This 60-year-old male with COVID-19 pneumonia was initially admitted on 01/24/2020 to the ICU after presenting with fever, shortness of breath, orthostatic hypotension, dizziness and hypoxia. He was admitted to the ICU with acute hypoxemic respiratory failure and was placed on BiPAP support. Chest x- ray at that time was compatible with bilateral pneumonia. COVID-19 testing was subsequently POSITIVE. On 01/29/2020, the patient required endotracheal int ubation and mechanical ventilatory support, ultimately for worsening hypercapnia. He self-extubated on 02/11 but was able to tolerate support with a high flow nasal cannula. However, he subsequently developed worsening hypoxemia and required endotracheal intubation again on 02/17. He liberated from mechanical ventilatory support on 02/22 and was transferred out on the same day. He returns to us today after the hospitalist team raise concern for altered mental status and profound hypoxemia despite BiPAP support. More concerning, ABG showed that the patient was in acute hypercapnic respiratory failure (pH 7.12, PCO2 90). Case was discussed with Rema Toledo, BLANCO. I agreed that the patient should be intubated. Endotracheal intubation was performed by the anesthesia service. The patient was transferred to ICU. 02/27: Successfully extubated this morning, after spending the evening on PSVT 10/5, FiO2 21%. Patient is awake, alert and interactive. He nods his head that he wishes to be extubated. WBC 41.1>20.8>17.4. On empiric Zosyn/vancomycin. Trach aspirate (02/26) shows reduced normal julian, Leah and few gram-positive cocci in pairs and clusters. On empiric aztreonam. 02/28: Remains extubated. On 5 LPM via nasal cannula. Awake, alert and interactive. Brace of personality (particularly to his nurse). WBC 41.1>20.8>12. Trach aspirate from 02/26 showed 4+ PMNs, 1+ budding yeast and few gram-positive cocci in pairs and clusters. Urine culture (02/26) again isol ated VSE, previously isolated on 02/05. Currently on aztreonam (known penicillin allergy but tolerating aztreonam without adverse reaction). proBNP 16,400. 03/01: Patient developed hypoxia associated with bradycardia arrhythmia. Although cardiopulmonary arrest did not transpire, he did require endotracheal intubation and mechanical ventilatory support. At this time, he is on the ventilator. Awake, alert, follows commands. Hemodynamically stable. This is his fourth intubation during this hospitalization. He is still on aztreonam. 03/02: Remains intubated. On propofol for sedation; however he is awake, alert and interactive. Follows commands. Chest x-ray this morning is consistent with pulmonary edema. proBNP 17,700. Anticipating trach and PEG early next week. Review of systems relevant to events:: Respiratory: Acute hypercapnic respiratory failure, COVID-19 pneumonia Cardiovascular: Hypotension/septic shock Neurologic: Altered mental status Reason for ICU Addmission:: Acute hypercapnic respiratory failure - Medications: Medications reviewed and adjusted accordingly: Yes Sedation:: Propofol Physical Exam Vital Signs: Temp Pulse Resp BP Pulse Ox 100.4 F 106 H 27 H 107/66 94 03/02/20 04:00 03/02/20 08:38 03/02/20 10:00 03/02/20 09:51 03/02/20 10:00 Intake & Output 03/01/20 03/02/20 03/03/20 06:59 06:59 06:59 Intake Total 1376 350 25 Output Total 2645 1170 90 Balance -1269 -820 -65 Weight 61.6 kg 61.8 kg Weight/Height Weight 61.8 kg Height 1.7 m General appearance: PRESENT: no acute distress, well-developed, well-nourished, other - Pale Head exam: PRESENT: atraumatic, normocephalic Mouth exam: PRESENT: moist, tongue midline Neck exam: ABSENT: carotid bruit, JVD, lymphadenopathy, thyromegaly Respiratory exam: PRESENT: clear to auscultation yousif. ABSENT: rales, rhonchi, wheezes Cardiovascular exam: PRESENT: RRR. ABSENT: diastolic murmur, rubs, systolic murmur Pulses: PRESENT: normal dorsalis pedis pul Vascular exam: PRESENT: normal capillary refill GI/Abdominal exam: PRESENT: normal bowel sounds, soft. ABSENT: distended, guarding, mass, organolmegaly, rebound, tenderness Gentrourinary exam: PRESENT: indwelling catheter Extremities exam: PRESENT: full ROM. ABSENT: calf tenderness, clubbing, pedal edema Neurological exam: PRESENT: alert, awake, reflexes normal, CN II-XII grossly intact. ABSENT: motor sensory deficit Psychiatric exam: ABSENT: agitated, anxious Skin exam: PRESENT: dry, intact, warm. ABSENT: cyanosis, rash Tubes/Lines: PRESENT: Endotracheal Tube Laboratory/Radiographs Laboratory Results: 03/02/20 05:44 03/02/20 05:44 03/02/20 03/02/20 03/02/20 05:44 05:44 05:44 WBC 13.6 H RBC 2.72 L Hgb 7.7 L Hct 23.9 L MCV 88 MCH 28.2 MCHC 32.2 RDW 16.2 H Plt Count 373 Seg Neutrophils % 81.3 H Carbonic Acid 0.92 L HCO3/H2CO3 Ratio 26:1 ABG pH 7.52 H ABG pCO2 30.6 L ABG pO2 69.2 L ABG HCO3 24.5 H ABG O2 Saturation 95.7 ABG Base Excess 1.8 FiO2 60% Sodium 144.0 Potassium 3.7 Chloride 114 H Carbon Dioxide 28 Anion Gap 3 L BUN 27 H Creatinine 1.16 Est GFR ( Amer) > 60 Glucose 94 Calcium 7.8 L Phosphorus 2.2 L Magnesium 1.6 Prealbumin 8.3 L 01/24/20 01/24/20 01/24/20 00:03 00:03 04:20 Creatine Kinase 80 CK-MB (CK-2) 0.63 Troponin I 0.132 0.133 NT-Pro-B Natriuret Pep 79445 H 01/24/20 01/24/20 01/24/20 10:43 17:19 23:06 Creatine Kinase CK-MB (CK-2) Troponin I 0.114 0.079 0.075 NT-Pro-B Natriuret Pep 32820 H 01/30/20 01/31/20 02/01/20 03:45 05:39 06:14 Creatine Kinase CK-MB (CK-2) Troponin I NT-Pro-B Natriuret Pep 32182 H 07755 H 28479 H 02/02/20 02/27/20 02/27/20 04:24 08:12 08:12 Creatine Kinase 33 L CK-MB (CK-2) 2.16 Troponin I 0.013 NT-Pro-B Natriuret Pep 42021 H 02/27/20 02/28/20 02/29/20 08:12 05:44 05:35 Creatine Kinase CK-MB (CK-2) Troponin I NT-Pro-B Natriuret Pep 55854 H 19622 H 98244 H 03/02/20 05:44 Creatine Kinase CK-MB (CK-2) Troponin I NT-Pro-B Natriuret Pep 14778 H Impressions: KUB X-Ray 02/23/20 17:08 IMPRESSION: NG tube placement. All labs, radiographs, diagnostic studies and EKGs were personally reviewed: Yes In addition, reports of radiographic and diagnostic studies were read: Yes Assessment and Plan - Diagnosis (1) Acute hypercapnic respiratory failure Is this a current diagnosis for this admission?: Yes Plan: Change ventilator mode from PRVC to SIMV. Follow-up ABG. Based on the conversation I had with the patient yesterday evening, it would be most appropriate to pursue tracheostomy and percutaneous gastrostomy placement. Anticipating trach and PEG early next week. Of note, this is his fourth intubation during this hospitalization. (2) Sepsis due to urinary tract infection Is this a current diagnosis for this admission?: Yes Plan: Overall, improving. Hemodynamically stable. I suspect that this may be the primary etiology of the patient's most recent need for endotracheal intubation and mechanical ventilatory support. He is experiencing recurrent enterococcal urinary tract infections during this hospitalization. Remove Varner catheter as soon as possible; however, he does need to continue to have strict I's and O's monitored at this time in light of his systolic heart failure. He was initiated on aztreonam, which appears to be effectively treating his enterococcal urinary tract infection. He may need to consider chronic suppression with Macrodantin. (3) UTI (urinary tract infection) due to Enterococcus Is this a current diagnosis for this admission?: Yes Plan: He is experiencing recurrent enterococcal urinary tract infections during this hospitalization. He was initiated on aztreonam, which appears to be effectively treating his enterococcal urinary tract infection. He may need to consider chronic suppression with Macrodantin. (4) Pneumonia due to COVID-19 virus Is this a current diagnosis for this admission?: Yes Plan: Clinically and radiographically significantly improved his admission film. Already completed Plaquenil and Decadron. Despite a history of COVID-19 pneumonia during this hospitalization, the patient's respiratory mechanics suggest that he is in the convalescent phase of this particular infection. Consequently, patient may proceed with tracheostomy and percutaneous gastrostomy as soon as the surgeons agreed to proceed. (5) Acute systolic heart failure Is this a current diagnosis for this admission?: Yes Plan: 2D echo (02/17/2020): LVEF 40-45% with mild LV diastolic dysfunction. Furosemide 40 mg IV single dose today. (6) Elevated troponin level Is this a current diagnosis for this admission?: Yes (7) Chronically on opiate therapy Is this a current diagnosis for this admission?: Yes (8) Acute worsening of stage 4 chronic kidney disease Is this a current diagnosis for this admission?: Yes (9) Diabetes type 2, uncontrolled Qualifiers: Glycemic state: with hyperglycemia Qualified Code(s): E11.65 - Type 2 diabetes mellitus with hyperglycemia Is this a current diagnosis for this admission?: Yes Plan: Continue Lantus plus sliding scale insulin. Change Nepro to Glucerna. Start at 30 mL/h (goal rate: 40 mL/h). Accu-Cheks every 6 hours. (10) Acute respiratory failure due to severe acute respiratory syndrome coronavirus 2 (SARS-CoV-2) infection Is this a current diagnosis for this admission?: Yes Plan: The patient's current need for mechanical ventilatory support does not appear to be directly related to acute COVID-19 pneumonia. Rather, he has developed acute hypercapnic respiratory failure, which is likely secondary to a combination of airway obstruction with secretions along with muscular weakness. While his prolonged hospitalization and nutritional status are likely to be the primary causes for his weakness, neuromuscular disorder may need to be considered. The patient would best be served by tracheostomy. (11) Hypotension Is this a current diagnosis for this admission?: Yes Critical Time Critical Time (minutes): 45 Level of Care: ICU -: 1. The care of a critical patient is a dynamic process. This note is a physician representative synopsis but static in nature. The timeframe for treatments given in order is not necessarily the actual time these treatments may have been done. 2. This patient requires critical care secondary to ongoing requirements for therapy not offered or safe outside the critical care environment. Transfer to a lower level of care will result in altered life or limb morbidity and mortality. 3. Multidisciplinary rounds completed. 4. ABCDE bundle addressed.
[2020-03-02 18:05] LABS: ARTERIAL BLOOD FIO2 35%; ARTERIAL BLOOD H2CO3 0.96 mmol/L (1.05-1.35); ARTERIAL BLOOD HCO3 25.7 mmol/L (20-24); ARTERIAL BLOOD O2 SATURATION 96.8 % (94-98); ARTERIAL BLOOD PH 7.52 (7.35-7.45); ARTERIAL BLOOD PO2 78.8 mmHg (80-100); ARTERIAL BLOOD TOTAL CO2 26.7 mmol/L (23-27)
[2020-03-02] MEDS: FENTANYL CITRATE INJ/PF 100 MCG/2 ML AMPUL IV SCH ×2 (19:47→22:13)
--- NOTE | 2020-03-02 23:20 | EKG REPORT ---
SEVERITY:- ABNORMAL ECG - SINUS TACHYCARDIA LEFT ATRIAL ABNORMALITY PROBABLE LEFT VENTRICULAR HYPERTROPHY ANTERIOR Q WAVES, POSSIBLY DUE TO LVH : Confirmed by: Mitesh Matta MD 02-Mar-2020 23:20:12
[2020-03-03] MEDS ORDERED: INSULIN GLARGINE,HUM.REC.ANLOG 1,000 UNIT/10 ML VIAL (PYX) SUBCUT ONE
[2020-03-03] MEDS: INSULIN REG, HUMAN 100 UNIT/ML 3 ML VIAL (PYX) SUBCUT SCH ×4 (00:31→17:18)
[2020-03-03] MEDS: CALCIUM ACETATE 667 MG CAPSULE PO SCH ×4 (00:33→17:18)
[2020-03-03] MEDS: FENTANYL CITRATE INJ/PF 100 MCG/2 ML AMPUL IV SCH ×12 (00:33→22:24)
[2020-03-03] MEDS: ALBUTEROL SULFATE 0.083% NEB 2.5 MG/3 ML AMPUL NEB SCH ×4 (01:50→21:38)
[2020-03-03] MEDS: PROPOFOL 1,000 MG/100 ML INFUS..BTL IV PRN ×3 (01:57→16:51)
[2020-03-03 05:22] LABS: ABSOLUTE EOSINOPHILS # (AUTO) 0.2 10^3/uL (0.0-0.6); ABSOLUTE LYMPHOCYTES (AUTO) 1.5 10^3/uL (0.5-4.7); ABSOLUTE NEUT (AUTO) 9.9 10^3/uL (1.7-8.2); BASOPHILS % (AUTO) 0.2 % (0-2); HEMATOCRIT 22.5 % (37.9-51.0); LYMPHOCYTES % (AUTO) 11.9 % (13-45); MEAN CORPUSCULAR HEMOGLOBIN 28.3 pg (27.0-33.4); MEAN CORPUSCULAR HGB CONC 32.9 g/dL (32.0-36.0); MEAN CORPUSCULAR VOLUME 86 fl (80-97); MONOCYTES % (AUTO) 8.2 % (3-13); PLATELET COUNT 332 10^3/uL (150-450); RED BLOOD COUNT 2.62 10^6/uL (4.35-5.55); RED CELL DISTRIBUTION WIDTH 16.3 % (11.5-14.0); SEGMENTED NEUTROPHILS % (AUTO) 77.7 % (42-78); TOTAL CELLS COUNTED % (AUTO) 100 %; WHITE BLOOD COUNT 12.7 10^3/uL (4.0-10.5)
[2020-03-03 05:32] LABS: ARTERIAL BLOOD BASE EXCESS 3.8 mmol/L; ARTERIAL BLOOD H2CO3 1.03 mmol/L (1.05-1.35); ARTERIAL BLOOD HCO3 26.9 mmol/L (20-24); ARTERIAL BLOOD O2 SATURATION 96.8 % (94-98); ARTERIAL BLOOD PCO2 34.1 mmHg (35-45); ARTERIAL BLOOD PH 7.52 (7.35-7.45); ARTERIAL BLOOD PO2 79.3 mmHg (80-100)
[2020-03-03 05:33] LABS: ARTERIAL BLOOD FIO2 35%
[2020-03-03 05:36] LABS: HEMOGLOBIN 7.4 g/dL (13.5-17.0)
[2020-03-03 05:41] LABS: BLOOD UREA NITROGEN 32 mg/dL (7-20); CALCIUM 7.8 mg/dL (8.4-10.2); CHLORIDE 109 mmol/L (98-107); GLUCOSE 120 mg/dL (75-110); PHOSPHORUS 2.3 mg/dL (2.5-4.5); POTASSIUM 4.4 mmol/L (3.6-5.0)
[2020-03-03 05:53] LABS: ANION GAP 5 (5-19); CARBON DIOXIDE 29 mmol/L (22-30)
[2020-03-03] MEDS: HEPARIN SOD (PORCINE) 5,000 UNIT/ML 1 ML VIAL SUBCUT SCH ×3 (06:10→22:24)
--- NOTE | 2020-03-03 09:28 | RADIOLOGY REPORT (SQ) ---
EXAM DESCRIPTION: CHEST SINGLE VIEW IMAGES COMPLETED DATE/TIME: 03/03/2020 5:48 am REASON FOR STUDY: ETT tube COMPARISON: 03/02/2020 EXAM PARAMETERS: NUMBER OF VIEWS: One view. TECHNIQUE: Single frontal radiographic view of the chest acquired. RADIATION DOSE: NA LIMITATIONS: None. FINDINGS: LUNGS AND PLEURA: Stable pulmonary exam today again demonstrating mixed interstitial and a irspace opacities most significantly involving the lingula/left lower lobe and right upper lobe. No significant pleural effusion. No pneumothorax. MEDIASTINUM AND HILAR STRUCTURES: No masses. Contour normal. HEART AND VASCULAR STRUCTURES: Heart normal in size. Normal vasculature. BONES: No acute findings. HARDWARE: ACDF hardware. Stable position and appearance of the endotracheal tube, enteric tube, and right cervical vascular access catheter. OTHER: No other significant finding. IMPRESSION: 1. Stable pulmonary exam. 2. Stable lines and tubes. TECHNICAL DOCUMENTATION: JOB ID: [id number] 2010 [employer]- All Rights Reserved Reading location - IP/workstation name: [email or web address]
[2020-03-03] MEDS ORDERED: INSULIN GLARGINE,HUM.REC.ANLOG 1,000 UNIT/10 ML VIAL SUBCUT SCH (10:00)
[2020-03-03] MEDS: AZTREONAM 1 GM in DEXTROSE 5%-WATER 50 ML IV SCH ×2 (10:57→22:23)
[2020-03-03] MEDS: FAMOTIDINE 20 MG TABLET PO SCH (10:57)
[2020-03-03] MEDS: DEXTROSE 50%-WATER 25 GM/50 ML DISP.SYRIN IV PRN (16:52)
[2020-03-03] MEDS ORDERED: NORMAL SALINE 500 ML IV PRN (17:30)
--- NOTE | 2020-03-03 17:30 | PDOC CRITICAL CARE PROG REPORT ---
General Date:: 03/03/20 ICU Day:: 6 - ICU stay Ventilator Day:: 3 - 4th intubation Hospital Day:: 40 Resuscitation Status: Full Code Medical Power of Security System Technician: None Events in the past 12 to 24 Hours:: This 60-year-old male with COVID-19 pneumonia was initially admitted on 01/24/2020 to the ICU after presenting with fever, shortness of breath, orthostatic hypotension, dizziness and hypoxia. He was admitted to the ICU with acute hypoxemic respiratory failure and was placed on BiPAP support. Chest x- ray at that time was compatible with bilateral pneumonia. COVID-19 testing was subsequently POSITIVE. On 01/29/2020, the patient required endotracheal int ubation and mechanical ventilatory support, ultimately for worsening hypercapnia. He self-extubated on 02/11 but was able to tolerate support with a high flow nasal cannula. However, he subsequently developed worsening hypoxemia and required endotracheal intubation again on 02/17. He liberated from mechanical ventilatory support on 02/22 and was transferred out on the same day. He returns to us today after the hospitalist team raise concern for altered mental status and profound hypoxemia despite BiPAP support. More concerning, ABG showed that the patient was in acute hypercapnic respiratory failure (pH 7.12, PCO2 90). Case was discussed with Rema Toledo, BLANCO. I agreed that the patient should be intubated. Endotracheal intubation was performed by the anesthesia service. The patient was transferred to ICU. 02/27: Successfully extubated this morning, after spending the evening on PSVT 10/5, FiO2 21%. Patient is awake, alert and interactive. He nods his head that he wishes to be extubated. WBC 41.1>20.8>17.4. On empiric Zosyn/vancomycin. Trach aspirate (02/26) shows reduced normal julian, Leah and few gram-positive cocci in pairs and clusters. On empiric aztreonam. 02/28: Remains extubated. On 5 LPM via nasal cannula. Awake, alert and interactive. Brace of personality (particularly to his nurse). WBC 41.1>20.8>12. Trach aspirate from 02/26 showed 4+ PMNs, 1+ budding yeast and few gram-positive cocci in pairs and clusters. Urine culture (02/26) again isol ated VSE, previously isolated on 02/05. Currently on aztreonam (known penicillin allergy but tolerating aztreonam without adverse reaction). proBNP 16,400. 03/01: Patient developed hypoxia associated with bradycardia arrhythmia. Although cardiopulmonary arrest did not transpire, he did require endotracheal intubation and mechanical ventilatory support. At this time, he is on the ventilator. Awake, alert, follows commands. Hemodynamically stable. This is his fourth intubation during this hospitalization. He is still on aztreonam. 03/02: Remains intubated. On propofol for sedation; however he is awake, alert and interactive. Follows commands. Chest x-ray this morning is consistent with pulmonary edema. proBNP 17,700. Anticipating trach and PEG early next week. 03/03: Remains intubated. RASS -1. Follows commands. proBNP 17,700>11,500. Anticipating trach +/- PEG early next week. Tube feeding was switched to Glucerna yesterday. Gram stain of tracheal aspirate obtained on 03/01 showed 4+ PMNs; 4+ GPC in pairs, chains and clusters; few GNR. Preliminary culture results are isolating GNR 1+. Currently, on aztreonam. WBC 13.6>12.7. Review of systems relevant to events:: Respiratory: Acute hypercapnic respiratory failure, COVID-19 pneumonia Cardiovascular: Hypotension/septic shock Neurologic: Altered mental status Reason for ICU Addmission:: Acute hypercapnic respiratory failure - Medications: Medications reviewed and adjusted accordingly: Yes Sedation:: Propofol Physical Exam Vital Signs: Temp Pulse Resp BP Pulse Ox 100.0 F 98 21 H 92/59 L 94 03/03/20 05:29 03/03/20 08:58 03/03/20 10:00 03/03/20 09:52 03/03/20 10:00 Intake & Output 03/02/20 03/03/20 03/04/20 06:59 06:59 06:59 Intake Total 350 1016 Output Total 1170 2520 Balance -820 -1504 Weight 61.8 kg 61.3 kg Weight/Height Weight 61.3 kg Height 1.7 m General appearance: PRESENT: no acute distress, thin, well-developed, well-nourished Head exam: PRESENT: atraumatic, normocephalic Eye exam: PRESENT: conjunctiva pink, EOMI, PERRLA. ABSENT: scleral icterus Mouth exam: PRESENT: moist, tongue midline Neck exam: ABSENT: carotid bruit, JVD, lymphadenopathy, thyromegaly Respiratory exam: PRESENT: crackles, decreased breath sounds, rhonchi. ABSENT: prolonged expiratory phas Cardiovascular exam: PRESENT: RRR. ABSENT: diastolic murmur, rubs, systolic murmur Pulses: PRESENT: normal dorsalis pedis pul GI/Abdominal exam: PRESENT: normal bowel sounds, soft. ABSENT: distended, guarding, mass, organolmegaly, rebound, tenderness Gentrourinary exam: PRESENT: indwelling catheter Extremities exam: PRESENT: full ROM. ABSENT: calf tenderness, clubbing, pedal edema Musculoskeletal exam: PRESENT: normal inspection. ABSENT: deformity Neurological exam: PRESENT: alert, awake, reflexes normal, CN II-XII grossly intact. ABSENT: motor sensory deficit Psychiatric exam: ABSENT: agitated, anxious Skin exam: PRESENT: dry, intact, warm. ABSENT: cyanosis, rash Tubes/Lines: PRESENT: Endotracheal Tube, Central Line - Right IJ Laboratory/Radiographs Laboratory Results: 03/03/20 05:00 03/03/20 05:00 03/01/20 03/02/20 03/03/20 03:10 17:50 05:00 WBC RBC Hgb Hct MCV MCH MCHC RDW Plt Count Seg Neutrophils % Carbonic Acid 1.54 H 0.96 L 1.03 L HCO3/H2CO3 Ratio 16:1 26:1 26:1 ABG pH 7.31 L 7.52 H 7.52 H ABG pCO2 51.1 H 32.0 L 34.1 L ABG pO2 379.4 H 78.8 L 79.3 L ABG HCO3 25.0 H 25.7 H 26.9 H ABG O2 Saturation 99.8 H 96.8 96.8 ABG Base Excess -1.4 3.0 3.8 FiO2 100% 35% 35% Sodium Potassium Chloride Carbon Dioxide Anion Gap BUN Creatinine Est GFR ( Amer) Glucose Calcium Ionized Calcium Deisi 1.12 L Phosphorus Magnesium 03/03/20 03/03/20 05:00 05:00 WBC 12.7 H RBC 2.62 L Hgb 7.4 L Hct 22.5 L MCV 86 MCH 28.3 MCHC 32.9 RDW 16.3 H Plt Count 332 Seg Neutrophils % 77.7 Carbonic Acid HCO3/H2CO3 Ratio ABG pH ABG pCO2 ABG pO2 ABG HCO3 ABG O2 Saturation ABG Base Excess FiO2 Sodium 142.5 Potassium 4.4 Chloride 109 H Carbon Dioxide 29 Anion Gap 5 BUN 32 H Creatinine 1.05 Est GFR ( Amer) > 60 Glucose 120 H Calcium 7.8 L Ionized Calcium Deisi Phosphorus 2.3 L Magnesium 1.6 01/24/20 01/24/20 01/24/20 00:03 00:03 04:20 Creatine Kinase 80 CK-MB (CK-2) 0.63 Troponin I 0.132 0.133 NT-Pro-B Natriuret Pep 36712 H 01/24/20 01/24/20 01/24/20 10:43 17:19 23:06 Creatine Kinase CK-MB (CK-2) Troponin I 0.114 0.079 0.075 NT-Pro-B Natriuret Pep 59233 H 01/30/20 01/31/20 02/01/20 03:45 05:39 06:14 Creatine Kinase CK-MB (CK-2) Troponin I NT-Pro-B Natriuret Pep 23397 H 84839 H 93345 H 02/02/20 02/27/20 02/27/20 04:24 08:12 08:12 Creatine Kinase 33 L CK-MB (CK-2) 2.16 Troponin I 0.013 NT-Pro-B Natriuret Pep 94746 H 02/27/20 02/28/20 02/29/20 08:12 05:44 05:35 Creatine Kinase CK-MB (CK-2) Troponin I NT-Pro-B Natriuret Pep 18846 H 42208 H 26746 H 03/02/20 03/03/20 05:44 05:00 Creatine Kinase CK-MB (CK-2) Troponin I NT-Pro-B Natriuret Pep 19726 H 00506 H Impressions: KUB X-Ray 02/23/20 17:08 IMPRESSION: NG tube placement. Chest X-Ray 03/03/20 05:00 IMPRESSION: 1. Stable pulmonary exam. 2. Stable lines and tubes. All labs, radiographs, diagnostic studies and EKGs were personally reviewed: Yes In addition, reports of radiographic and diagnostic studies were read: Yes Assessment and Plan - Diagnosis (1) Acute hypercapnic respiratory failure Is this a current diagnosis for this admission?: Yes Plan: Continue SIMV mode. Anticipating trach and PEG early next week. Of note, this is his fourth intubation during this hospitalization. (2) Sepsis due to urinary tract infection Is this a current diagnosis for this admission?: Yes Plan: Overall, improving. Hemodynamically stable. I suspect that this may be the primary etiology of the patient's most recent need for endotracheal intubation and mechanical ventilatory support. He is experiencing recurrent enterococcal urinary tract infections during this hospitalization. Remove Varner catheter as soon as possible; however, he does need to continue to have strict I's and O's monitored at this time in light of his systolic heart failure. He was initiated on aztreonam, which appears to be effectively treating his enterococcal urinary tract infection. He may need to consider chronic suppression with Macrodantin. (3) UTI (urinary tract infection) due to Enterococcus Is this a current diagnosis for this admission?: Yes Plan: * He is experiencing recurrent enterococcal urinary tract infections during this hospitalization. * He was initiated on aztreonam, which appears to be effectively treating his en terococcal urinary tract infection. He may need to consider chronic suppression with Macrodantin. (4) Pneumonia due to COVID-19 virus Is this a current diagnosis for this admission?: Yes Plan: * Clinically and radiographically, significantly improved when compared to his admission film. * Already completed Plaquenil and Decadron. * Now on aztreonam for gram-negative colten coverage. * Despite a history of COVID-19 pneumonia during this hospitalization, the patient's respiratory mechanics suggest that he is in the convalescent phase of this particular infection. Consequently, patient may proceed with tracheostomy and percutaneous gastrostomy as soon as the surgeons agreed to proceed. (5) Acute systolic heart failure Is this a current diagnosis for this admission?: Yes Plan: * Frusemide 40 mg IV single dose today. * 2D echo (02/17/2020): LVEF 40-45% with mild LV diastolic dysfunction. (6) Elevated troponin level Is this a current diagnosis for this admission?: Yes (7) Chronically on opiate therapy Is this a current diagnosis for this admission?: Yes (8) Acute worsening of stage 4 chronic kidney disease Is this a current diagnosis for this admission?: Yes Plan: Resolved. GFR 50. (9) Diabetes type 2, uncontrolled Qualifiers: Glycemic state: with hyperglycemia Qualified Code(s): E11.65 - Type 2 diabetes mellitus with hyperglycemia Is this a current diagnosis for this admission?: Yes (10) Acute respiratory failure due to severe acute respiratory syndrome coronavirus 2 (SARS-CoV-2) infection Is this a current diagnosis for this admission?: Yes Plan: * The patient's current need for mechanical ventilatory support does not appear to be directly related to acute COVID-19 pneumonia. Rather, he has developed acute hypercapnic respiratory failure, which is likely secondary to a combination of airway obstruction with secretions along with muscular weakness. While his prolonged hospitalization and nutritional status are like ly to be the primary causes for his weakness, neuromuscular disorder may need to be considered. The patient would best be served by tracheostomy. * He does have gram-negative rods growing from tracheal aspirate. This likely reflects a secondary bacterial infection during the convalescent phase of his COVID-19 pneumonia. * Continue aztreonam. (11) Hypotension Is this a current diagnosis for this admission?: Yes Critical Time Critical Time (minutes): 90 Level of Care: ICU -: 1. The care of a critical patient is a dynamic process. This note is a client account representative synopsis but static in nature. The timeframe for treatments given in order is not necessarily the actual time these treatments may have been done. 2. This patient requires critical care secondary to ongoing requirements for therapy not offered or safe outside the critical care environment. Transfer to a lower level of care will result in altered life or limb morbidity and mortality. 3. Multidisciplinary rounds completed. 4. ABCDE bundle addressed.
[2020-03-03] MEDS ORDERED: ALBUTEROL SULFATE 0.083% NEB 2.5 MG/3 ML AMPUL NEB ONE (20:21)
[2020-03-04] MEDS: INSULIN REG, HUMAN 100 UNIT/ML 3 ML VIAL (PYX) SUBCUT SCH ×4 (00:49→18:12)
[2020-03-04] MEDS: FENTANYL CITRATE INJ/PF 100 MCG/2 ML AMPUL IV SCH ×12 (00:56→22:13)
[2020-03-04] MEDS: CALCIUM ACETATE 667 MG CAPSULE PO SCH ×4 (00:56→18:11)
[2020-03-04] MEDS: ALBUTEROL SULFATE 0.083% NEB 2.5 MG/3 ML AMPUL NEB SCH ×4 (02:19→20:50)
[2020-03-04] MEDS: PROPOFOL 1,000 MG/100 ML INFUS..BTL IV PRN ×3 (02:55→15:00)
[2020-03-04 04:45] LABS: ABSOLUTE EOSINOPHILS # (AUTO) 0.3 10^3/uL (0.0-0.6); ABSOLUTE LYMPHOCYTES (AUTO) 1.3 10^3/uL (0.5-4.7); ABSOLUTE MONOCYTES (AUTO) 1.1 10^3/uL (0.1-1.4); ABSOLUTE NEUT (AUTO) 9.4 10^3/uL (1.7-8.2); BASOPHILS % (AUTO) 0.3 % (0-2); EOSINOPHILS % (AUTO) 2.3 % (0-6); HEMATOCRIT 21.8 % (37.9-51.0); LYMPHOCYTES % (AUTO) 10.8 % (13-45); MEAN CORPUSCULAR HEMOGLOBIN 27.8 pg (27.0-33.4); MEAN CORPUSCULAR HGB CONC 31.9 g/dL (32.0-36.0); MEAN CORPUSCULAR VOLUME 87 fl (80-97); MONOCYTES % (AUTO) 8.8 % (3-13); PLATELET COUNT 326 10^3/uL (150-450); RED CELL DISTRIBUTION WIDTH 16.5 % (11.5-14.0); SEGMENTED NEUTROPHILS % (AUTO) 77.8 % (42-78); TOTAL CELLS COUNTED % (AUTO) 100 %
[2020-03-04 05:27] LABS: ALKALINE PHOSPHATASE 79 U/L (38-126); ASPARTATE AMINO TRANSFERASE 12 U/L (17-59); BILIRUBIN,TOTAL 0.1 mg/dL (0.2-1.3); BLOOD UREA NITROGEN 36 mg/dL (7-20); CALCIUM 7.5 mg/dL (8.4-10.2); GLUCOSE 100 mg/dL (75-110); PHOSPHORUS 2.9 mg/dL (2.5-4.5); POTASSIUM 4.6 mmol/L (3.6-5.0); TOTAL PROTEIN 5.2 g/dL (6.3-8.2); TRIGLYCERIDES 152 mg/dL (<150)
[2020-03-04 05:34] LABS: CARBON DIOXIDE 28 mmol/L (22-30); CHLORIDE 106 mmol/L (98-107)
[2020-03-04 05:35] LABS: PREALBUMIN 8.9 mg/dL (17.6-36.0)
[2020-03-04 05:37] LABS: ARTERIAL BLOOD BASE EXCESS 1.6 mmol/L; ARTERIAL BLOOD H2CO3 1.15 mmol/L (1.05-1.35); ARTERIAL BLOOD HCO3 25.9 mmol/L (20-24); ARTERIAL BLOOD O2 SATURATION 96.1 % (94-98); ARTERIAL BLOOD PCO2 38.3 mmHg (35-45); ARTERIAL BLOOD PH 7.45 (7.35-7.45); ARTERIAL BLOOD PO2 78.5 mmHg (80-100); ARTERIAL BLOOD TOTAL CO2 27.1 mmol/L (23-27)
[2020-03-04 05:38] LABS: ARTERIAL BLOOD FIO2 35%
[2020-03-04 05:42] LABS: ANION GAP 4 (5-19)
[2020-03-04] MEDS: HEPARIN SOD (PORCINE) 5,000 UNIT/ML 1 ML VIAL SUBCUT SCH ×3 (06:04→22:12)
--- NOTE | 2020-03-04 08:19 | RADIOLOGY REPORT (SQ) ---
EXAM DESCRIPTION: CHEST SINGLE VIEW IMAGES COMPLETED DATE/TIME: 03/04/2020 6:10 am REASON FOR STUDY: ETT tube COMPARISON: 03/03/2020 NUMBER OF VIEWS: One view. TECHNIQUE: Single frontal radiographic image of the chest acquired. LIMITATIONS: None. FINDINGS: LUNGS AND PLEURA: Stable appearance. MEDIASTINUM AND HILAR STRUCTURES: Stable heart size and mediastinal structures. HEART AND VASCULAR STRUCTURES: Stable appearance. SUPPORT DEVICES: Appropriate location without change. BONES: No acute findings. OTHER: No other significant finding. IMPRESSION: STABLE APPEARANCE OF THE CHEST. SUPPORT DEVICES UNCHANGED. TECHNICAL DOCUMENTATION: JOB ID: [id number] 2010 [employer]- All Rights Reserved Reading location - IP/workstation name: [email or web address]
[2020-03-04] MEDS: AZTREONAM 1 GM in DEXTROSE 5%-WATER 50 ML IV SCH ×2 (11:00→22:12)
[2020-03-04] MEDS: FAMOTIDINE 20 MG TABLET PO SCH (11:00)
[2020-03-04] MEDS: INSULIN GLARGINE,HUM.REC.ANLOG 1,000 UNIT/10 ML VIAL SUBCUT SCH (11:52)
--- NOTE | 2020-03-04 12:30 | PDOC CRITICAL CARE PROG REPORT ---
General Date:: 03/04/20 ICU Day:: 6 Ventilator Day:: 6 Resuscitation Status: Full Code Medical Power of Forestry Aid: None Events in the past 12 to 24 Hours:: Making progress on vent. Given his 4 intubations he needs trach and PEG and referral to LTAC. Still wants aggressive care. Review of systems relevant to events:: Pulmonary Reason for ICU Addmission:: Acute hypercapnic respiratory failure - Medications: Medications reviewed and adjusted accordingly: Yes Vasopressors:: None Sedation:: Diprivan. Physical Exam Vital Signs: Temp Pulse Resp BP Pulse Ox 99.7 F 101 H 26 H 110/71 100 03/04/20 00:00 03/04/20 09:02 03/04/20 11:30 03/04/20 11:22 03/04/20 11:30 Intake & Output 03/03/20 03/04/20 03/05/20 06:59 06:59 06:59 Intake Total 1016 257 100 Output Total 2520 1480 Balance -1504 -1223 100 Weight 61.3 kg 63.4 kg Weight/Height Weight 63.4 kg Height 5 ft 7 in General appearance: PRESENT: no acute distress, cooperative, thin Head exam: PRESENT: atraumatic, normocephalic Eye exam: PRESENT: conjunctiva pink, EOMI, PERRLA. ABSENT: scleral icterus Ear exam: PRESENT: normal external ear exam Mouth exam: PRESENT: moist, tongue midline Respiratory exam: PRESENT: clear to auscultation yousif, decreased breath sounds. ABSENT: rales, rhonchi, wheezes Cardiovascular exam: PRESENT: RRR. ABSENT: diastolic murmur, rubs, systolic murmur GI/Abdominal exam: PRESENT: normal bowel sounds, soft. ABSENT: distended, guarding, mass, organolmegaly, rebound, tenderness Rectal exam: PRESENT: deferred Gentrourinary exam: PRESENT: indwelling catheter Extremities exam: PRESENT: full ROM, other - Muscle wasting of hand muscles and legs as well.. ABSENT: calf tenderness, clubbing, pedal edema Neurological exam: PRESENT: alert, altered, awake Skin exam: PRESENT: dry, intact, warm. ABSENT: cyanosis, rash Tubes/Lines: PRESENT: Endotracheal Tube, Central Line, Nasogastic Tube Laboratory/Radiographs Laboratory Results: 03/04/20 04:21 03/04/20 04:21 03/04/20 03/04/20 03/04/20 04:21 04:21 04:21 WBC 12.0 H RBC 2.50 L Hgb 7.0 L Hct 21.8 L MCV 87 MCH 27.8 MCHC 31.9 L RDW 16.5 H Plt Count 326 Seg Neutrophils % 77.8 Carbonic Acid 1.15 HCO3/H2CO3 Ratio 22:1 ABG pH 7.45 ABG pCO2 38.3 ABG pO2 78.5 L ABG HCO3 25.9 H ABG O2 Saturation 96.1 ABG Base Excess 1.6 FiO2 35% Sodium 138.4 Potassium 4.6 Chloride 106 Carbon Dioxide 28 Anion Gap 4 L BUN 36 H Creatinine 1.08 Est GFR ( Amer) > 60 Glucose 100 Calcium 7.5 L Phosphorus 2.9 Magnesium 1.6 Total Bilirubin 0.1 L AST 12 L Alkaline Phosphatase 79 Total Protein 5.2 L Albumin 2.0 L Prealbumin 8.9 L Triglycerides 152 H 03/01/20 03:10 Sputum Gram Stain - Final 03/01/20 03:10 Sputum Sputum Culture - Final Achromobacter Xlosoxidans C.albicans/C.dubliniensis Reduced Normal Kathie 02/27/20 18:00 Blood Blood Culture - Final NO GROWTH IN 5 DAYS 02/27/20 11:08 Blood Blood Culture - Final NO GROWTH IN 5 DAYS 01/24/20 01/24/20 01/24/20 00:03 00:03 04:20 Creatine Kinase 80 CK-MB (CK-2) 0.63 Troponin I 0.132 0.133 NT-Pro-B Natriuret Pep 61372 H 01/24/20 01/24/20 01/24/20 10:43 17:19 23:06 Creatine Kinase CK-MB (CK-2) Troponin I 0.114 0.079 0.075 NT-Pro-B Natriuret Pep 14347 H 01/30/20 01/31/20 02/01/20 03:45 05:39 06:14 Creatine Kinase CK-MB (CK-2) Troponin I NT-Pro-B Natriuret Pep 31202 H 84733 H 03365 H 02/02/20 02/27/20 02/27/20 04:24 08:12 08:12 Creatine Kinase 33 L CK-MB (CK-2) 2.16 Troponin I 0.013 NT-Pro-B Natriuret Pep 06173 H 02/27/20 02/28/20 02/29/20 08:12 05:44 05:35 Creatine Kinase CK-MB (CK-2) Troponin I NT-Pro-B Natriuret Pep 50749 H 33499 H 97292 H 03/02/20 03/03/20 05:44 05:00 Creatine Kinase CK-MB (CK-2) Troponin I NT-Pro-B Natriuret Pep 88640 H 22972 H Impressions: KUB X-Ray 02/23/20 17:08 IMPRESSION: NG tube placement. Chest X-Ray 03/04/20 05:00 IMPRESSION: STABLE APPEARANCE OF THE CHEST. SUPPORT DEVICES UNCHANGED. All labs, radiographs, diagnostic studies and EKGs were personally reviewed: Yes In addition, reports of radiographic and diagnostic studies were read: Yes Assessment and Plan - Diagnosis (1) COVID-19 Is this a current diagnosis for this admission?: Yes Plan: His reintubation is likely from weakness and mucus plugging as before. (2) Acute CHF Qualifiers: Heart failure type: unspecified Qualified Code(s): I50.9 - Heart failure, unspecified Is this a current diagnosis for this admission?: Yes Plan: Inactive (3) Acute hypoxemic respiratory failure Is this a current diagnosis for this admission?: Yes Plan: He has not been hypoxic but hypercarbic. (4) CKD stage 4 due to type 2 diabetes mellitus Is this a current diagnosis for this admission?: Yes Plan: Resolved. Cr 1.08, GFR >60. (5) Chronic pain Qualifiers: Chronic pain type: other chronic pain Qualified Code(s): G89.29 - Other chronic pain Is this a current diagnosis for this admission?: Yes Plan: Inactive (6) Diabetes mellitus type 2 in nonobese Is this a current diagnosis for this admission?: Yes Plan: Controoled, glucose 100 on glucerna TF. (7) Polyneuropathy associated with critical illness Is this a current diagnosis for this admission?: Yes Plan: This is likely given his relatively clear lungs, muscle wasting and weakness. This could take days or weeks to resolve Plan Summary: To be evaluated for LTAC. Critical Time Critical Time (minutes): 35 Level of Care: ICU Anticipated discharge: Acute Rehab Anticipated DC Timeframe: Other -: 1. The care of a critical patient is a dynamic process. This note is a motor vehicle field representative synopsis but static in nature. The timeframe for treatments given in order is not necessarily the actual time these treatments may have been done. 2. This patient requires critical care secondary to ongoing requirements for therapy not offered or safe outside the critical care environment. Transfer to a lower level of care will result in altered life or limb morbidity and mortality. 3. Multidisciplinary rounds completed. 4. ABCDE bundle addressed.
[2020-03-05] MEDS: INSULIN REG, HUMAN 100 UNIT/ML 3 ML VIAL (PYX) SUBCUT SCH ×5 (00:07→23:45)
[2020-03-05] MEDS: FENTANYL CITRATE INJ/PF 100 MCG/2 ML AMPUL IV SCH ×13 (00:48→23:28)
[2020-03-05] MEDS: CALCIUM ACETATE 667 MG CAPSULE PO SCH ×5 (01:11→23:46)
[2020-03-05] MEDS: ALBUTEROL SULFATE 0.083% NEB 2.5 MG/3 ML AMPUL NEB SCH ×4 (02:03→21:27)
[2020-03-05] MEDS: PROPOFOL 1,000 MG/100 ML INFUS..BTL IV PRN ×3 (02:50→17:30)
[2020-03-05] MEDS: HEPARIN SOD (PORCINE) 5,000 UNIT/ML 1 ML VIAL SUBCUT SCH ×3 (06:31→21:17)
[2020-03-05 07:25] LABS: INTERNATIONAL RATION (INR) 1.08; PROTHROMBIN TIME 14.3 SEC (11.4-15.4)
[2020-03-05 07:26] LABS: ABSOLUTE EOSINOPHILS # (AUTO) 0.2 10^3/uL (0.0-0.6); ABSOLUTE LYMPHOCYTES (AUTO) 1.1 10^3/uL (0.5-4.7); ABSOLUTE MONOCYTES (AUTO) 0.9 10^3/uL (0.1-1.4); ABSOLUTE NEUT (AUTO) 7.1 10^3/uL (1.7-8.2); BASOPHILS % (AUTO) 0.4 % (0-2); HEMATOCRIT 20.6 % (37.9-51.0); LYMPHOCYTES % (AUTO) 11.4 % (13-45); MEAN CORPUSCULAR HEMOGLOBIN 28.2 pg (27.0-33.4); MEAN CORPUSCULAR HGB CONC 32.4 g/dL (32.0-36.0); MEAN CORPUSCULAR VOLUME 87 fl (80-97); MONOCYTES % (AUTO) 9.9 % (3-13); PLATELET COUNT 352 10^3/uL (150-450); RED BLOOD COUNT 2.37 10^6/uL (4.35-5.55); RED CELL DISTRIBUTION WIDTH 16.5 % (11.5-14.0); SEGMENTED NEUTROPHILS % (AUTO) 76.3 % (42-78); TOTAL CELLS COUNTED % (AUTO) 100 %; WHITE BLOOD COUNT 9.4 10^3/uL (4.0-10.5)
[2020-03-05 07:38] LABS: ALBUMIN 2.1 g/dL (3.5-5.0); ALKALINE PHOSPHATASE 91 U/L (38-126); ANION GAP 6 (5-19); ASPARTATE AMINO TRANSFERASE 12 U/L (17-59); BILIRUBIN,TOTAL 0.2 mg/dL (0.2-1.3); BLOOD UREA NITROGEN 38 mg/dL (7-20); CALCIUM 7.8 mg/dL (8.4-10.2); CARBON DIOXIDE 29 mmol/L (22-30); CHLORIDE 103 mmol/L (98-107); GLUCOSE 132 mg/dL (75-110); POTASSIUM 4.7 mmol/L (3.6-5.0); TOTAL PROTEIN 5.3 g/dL (6.3-8.2)
[2020-03-05 07:44] LABS: HEMOGLOBIN 6.7 g/dL (13.5-17.0)
[2020-03-05 07:49] LABS: C-REACTIVE PROTEIN 183.6 mg/L (<10.0)
--- NOTE | 2020-03-05 09:05 | PDOC CRITICAL CARE PROG REPORT ---
General Date:: 03/05/20 ICU Day:: 7 Ventilator Day:: 7 Resuscitation Status: Full Code Medical Power of Pump Attendant: None Events in the past 12 to 24 Hours:: Tolerating PSV. Still weak. Review of systems relevant to events:: Respiratory Reason for ICU Addmission:: Acute hypercapnic respiratory failure, re-intubated. - Medications: Medications reviewed and adjusted accordingly: Yes Vasopressors:: None Sedation:: Diprivan Physical Exam Vital Signs: Temp Pulse Resp BP Pulse Ox 100.0 F 110 H 22 H 99/62 L 91 L 03/05/20 08:00 03/05/20 08:00 03/05/20 08:00 03/05/20 08:00 03/05/20 08:00 Intake & Output 03/04/20 03/05/20 03/06/20 06:59 06:59 06:59 Intake Total 257 980 Output Total 1480 1500 350 Balance -1223 -520 -350 Weight 63.4 kg 61.6 kg Weight/Height Weight 61.6 kg Height 5 ft 7 in General appearance: PRESENT: no acute distress, thin Head exam: PRESENT: atraumatic, normocephalic Eye exam: PRESENT: conjunctiva pink, EOMI, PERRLA. ABSENT: scleral icterus Ear exam: PRESENT: normal external ear exam Mouth exam: PRESENT: moist, tongue midline Respiratory exam: PRESENT: clear to auscultation yousif. ABSENT: rales, rhonchi, wheezes Cardiovascular exam: PRESENT: RRR. ABSENT: diastolic murmur, rubs, systolic murmur GI/Abdominal exam: PRESENT: normal bowel sounds, soft. ABSENT: distended, guarding, mass, organolmegaly, rebound, tenderness Rectal exam: PRESENT: deferred Gentrourinary exam: PRESENT: indwelling catheter Extremities exam: PRESENT: full ROM. ABSENT: calf tenderness, clubbing, pedal edema Musculoskeletal exam: PRESENT: normal inspection Neurological exam: PRESENT: CN II-XII grossly intact - He is arousable but sedated. He seems to hear questions but does not alwasys answer appropriately, other Psychiatric exam: PRESENT: anxious Skin exam: PRESENT: dry, intact, warm. ABSENT: cyanosis, rash Tubes/Lines: PRESENT: Endotracheal Tube, Nasogastic Tube Laboratory/Radiographs Laboratory Results: 03/05/20 07:00 03/05/20 07:00 03/04/20 03/04/20 03/05/20 12:05 12:47 07:00 WBC RBC Hgb Hct MCV MCH MCHC RDW Plt Count Seg Neutrophils % Sodium 137.7 Potassium 4.7 Chloride 103 Carbon Dioxide 29 Anion Gap 6 BUN 38 H Creatinine 1.02 Est GFR ( Amer) > 60 Glucose 132 H Calcium 7.8 L Magnesium 1.7 Total Bilirubin 0.2 AST 12 L Alkaline Phosphatase 91 C-Reactive Protein 183.6 H Total Protein 5.3 L Albumin 2.1 L Blood Type Cancelled A POSITIVE Antibody Screen Cancelled NEGATIVE 03/05/20 07:00 WBC 9.4 RBC 2.37 L Hgb 6.7 L Hct 20.6 L MCV 87 MCH 28.2 MCHC 32.4 RDW 16.5 H Plt Count 352 Seg Neutrophils % 76.3 Sodium Potassium Chloride Carbon Dioxide Anion Gap BUN Creatinine Est GFR ( Amer) Glucose Calcium Magnesium Total Bilirubin AST Alkaline Phosphatase C-Reactive Protein Total Protein Albumin Blood Type Antibody Screen 03/01/20 03:10 Sputum Gram Stain - Final 03/01/20 03:10 Sputum Sputum Culture - Final Achromobacter Xlosoxidans C.albicans/C.dubliniensis Reduced Normal Kathie 01/24/20 01/24/20 01/24/20 00:03 00:03 04:20 Creatine Kinase 80 CK-MB (CK-2) 0.63 Troponin I 0.132 0.133 NT-Pro-B Natriuret Pep 70189 H 01/24/20 01/24/20 01/24/20 10:43 17:19 23:06 Creatine Kinase CK-MB (CK-2) Troponin I 0.114 0.079 0.075 NT-Pro-B Natriuret Pep 12633 H 01/30/20 01/31/20 02/01/20 03:45 05:39 06:14 Creatine Kinase CK-MB (CK-2) Troponin I NT-Pro-B Natriuret Pep 66830 H 97180 H 10152 H 02/02/20 02/27/20 02/27/20 04:24 08:12 08:12 Creatine Kinase 33 L CK-MB (CK-2) 2.16 Troponin I 0.013 NT-Pro-B Natriuret Pep 25447 H 02/27/20 02/28/20 02/29/20 08:12 05:44 05:35 Creatine Kinase CK-MB (CK-2) Troponin I NT-Pro-B Natriuret Pep 44605 H 96347 H 20900 H 03/02/20 03/03/20 05:44 05:00 Creatine Kinase CK-MB (CK-2) Troponin I NT-Pro-B Natriuret Pep 66673 H 25824 H Impressions: KUB X-Ray 02/23/20 17:08 IMPRESSION: NG tube placement. Chest X-Ray 03/04/20 05:00 IMPRESSION: STABLE APPEARANCE OF THE CHEST. SUPPORT DEVICES UNCHANGED. All labs, radiographs, diagnostic studies and EKGs were personally reviewed: Yes In addition, reports of radiographic and diagnostic studies were read: Yes Assessment and Plan - Diagnosis (1) Polyneuropathy associated with critical illness Is this a current diagnosis for this admission?: Yes Plan: Again this is his main problem and could take days to weeks to resolve. (2) COVID-19 Is this a current diagnosis for this admission?: Yes Plan: Currently this is not a major problem but did set in motion the ensuing problems. (3) Acute CHF Qualifiers: Heart failure type: unspecified Qualified Code(s): I50.9 - Heart failure, unspecified Is this a current diagnosis for this admission?: Yes Plan: Resolved. The patient may need PRBCs. If so he will likely need lasix. (4) Acute hypoxemic respiratory failure Is this a current diagnosis for this admission?: Yes Plan: He is tolerating PSV and likely can meet criteria for extubation. However his weakness has resulted in his reintubation 3 times already. He needs trach and PEG and referral to LTAC which is in progress. (5) CKD stage 4 due to type 2 diabetes mellitus Is this a current diagnosis for this admission?: Yes Plan: Resolved (6) Chronic pain Qualifiers: Chronic pain type: other chronic pain Qualified Code(s): G89.29 - Other c hronic pain Is this a current diagnosis for this admission?: Yes Plan: Currently not active. (7) Diabetes mellitus type 2 in nonobese Is this a current diagnosis for this admission?: Yes Plan: Controlled Plan Summary: Wean as tolerated. Leave intubated until he can get to an LTAC. Critical Time Critical Time (minutes): 40 Level of Care: ICU Anticipated discharge: Acute Rehab Anticipated DC Timeframe: Other -: 1. The care of a critical patient is a dynamic process. This note is a sales representative graphic art synopsis but static in nature. The timeframe for treatments given in order is not necessarily the actual time these treatments may have been done. 2. This patient requires critical care secondary to ongoing requirements for therapy not offered or safe outside the critical care environment. Transfer to a lower level of care will result in altered life or limb morbidity and mortality. 3. Multidisciplinary rounds completed. 4. ABCDE bundle addressed.
[2020-03-05] MEDS ORDERED: FUROSEMIDE INJ/PF 20 MG/2 ML SDV IV PRN (09:07)
[2020-03-05] MEDS ORDERED: NORMAL SALINE 250 ML IV PRN ×2 (09:07)
[2020-03-05] MEDS: AZTREONAM 1 GM in DEXTROSE 5%-WATER 50 ML IV SCH ×2 (10:53→21:18)
[2020-03-05] MEDS: FAMOTIDINE 20 MG TABLET PO SCH (10:53)
[2020-03-05] MEDS: INSULIN GLARGINE,HUM.REC.ANLOG 1,000 UNIT/10 ML VIAL SUBCUT SCH (10:53)
[2020-03-05 16:50] LABS: HEMATOCRIT 25.3 % (37.9-51.0); HEMOGLOBIN 8.4 g/dL (13.5-17.0); MEAN CORPUSCULAR HEMOGLOBIN 28.4 pg (27.0-33.4); MEAN CORPUSCULAR HGB CONC 33.1 g/dL (32.0-36.0); MEAN CORPUSCULAR VOLUME 86 fl (80-97); PLATELET COUNT 339 10^3/uL (150-450); RED BLOOD COUNT 2.95 10^6/uL (4.35-5.55); RED CELL DISTRIBUTION WIDTH 15.7 % (11.5-14.0); WHITE BLOOD COUNT 12.2 10^3/uL (4.0-10.5)
[2020-03-06] MEDS: FENTANYL CITRATE INJ/PF 100 MCG/2 ML AMPUL IV SCH ×11 (02:06→21:51)
[2020-03-06] MEDS: ALBUTEROL SULFATE 0.083% NEB 2.5 MG/3 ML AMPUL NEB SCH ×4 (02:38→20:50)
[2020-03-06] MEDS: PROPOFOL 1,000 MG/100 ML INFUS..BTL IV PRN ×2 (02:50→11:47)
[2020-03-06 05:01] LABS: ABSOLUTE EOSINOPHILS # (AUTO) 0.2 10^3/uL (0.0-0.6); ABSOLUTE LYMPHOCYTES (AUTO) 1.1 10^3/uL (0.5-4.7); ABSOLUTE MONOCYTES (AUTO) 0.9 10^3/uL (0.1-1.4); ABSOLUTE NEUT (AUTO) 8.9 10^3/uL (1.7-8.2); BASOPHILS % (AUTO) 0.3 % (0-2); EOSINOPHILS % (AUTO) 1.6 % (0-6); HEMATOCRIT 26.1 % (37.9-51.0); HEMOGLOBIN 8.5 g/dL (13.5-17.0); LYMPHOCYTES % (AUTO) 9.7 % (13-45); MEAN CORPUSCULAR HEMOGLOBIN 27.9 pg (27.0-33.4); MEAN CORPUSCULAR HGB CONC 32.7 g/dL (32.0-36.0); MEAN CORPUSCULAR VOLUME 85 fl (80-97); PLATELET COUNT 361 10^3/uL (150-450); RED BLOOD COUNT 3.06 10^6/uL (4.35-5.55); RED CELL DISTRIBUTION WIDTH 15.8 % (11.5-14.0); SEGMENTED NEUTROPHILS % (AUTO) 80.4 % (42-78); TOTAL CELLS COUNTED % (AUTO) 100 %
[2020-03-06 05:24] LABS: ANION GAP 6 (5-19); BLOOD UREA NITROGEN 38 mg/dL (7-20); CARBON DIOXIDE 30 mmol/L (22-30); CHLORIDE 101 mmol/L (98-107); GLUCOSE 91 mg/dL (75-110); POTASSIUM 4.6 mmol/L (3.6-5.0)
[2020-03-06] MEDS: HEPARIN SOD (PORCINE) 5,000 UNIT/ML 1 ML VIAL SUBCUT SCH ×3 (05:30→21:50)
[2020-03-06] MEDS: INSULIN REG, HUMAN 100 UNIT/ML 3 ML VIAL (PYX) SUBCUT SCH ×3 (05:30→18:36)
[2020-03-06] MEDS: CALCIUM ACETATE 667 MG CAPSULE PO SCH ×3 (05:31→17:20)
--- NOTE | 2020-03-06 08:34 | PDOC CRITICAL CARE PROG REPORT ---
General Date:: 03/06/20 ICU Day:: 8 Hospital Day:: 8 Resuscitation Status: Full Code Medical Power of Avionics Engineer: None Events in the past 12 to 24 Hours:: To have trach and PEG today. Review of systems relevant to events:: Pulmonary Reason for ICU Addmission:: Acute hypercapnic respiratory failure, re-intubated. - Medications: Medications reviewed and adjusted accordingly: Yes Vasopressors:: None Sedation:: Diprivan Physical Exam Vital Signs: Temp Pulse Resp BP Pulse Ox 100.4 F 104 H 21 H 114/79 100 03/05/20 16:00 03/06/20 08:10 03/06/20 08:10 03/06/20 06:00 03/06/20 08:10 Intake & Output 03/05/20 03/06/20 03/07/20 06:59 06:59 06:59 Intake Total 980 650 Output Total 1500 3250 Balance -520 -2600 Weight 61.6 kg 60.1 kg Weight/Height Weight 60.1 kg Height 5 ft 7 in General appearance: PRESENT: no acute distress, thin Head exam: PRESENT: atraumatic, normocephalic Eye exam: PRESENT: conjunctiva pink, EOMI, PERRLA. ABSENT: scleral icterus Ear exam: PRESENT: normal external ear exam Mouth exam: PRESENT: moist, tongue midline Respiratory exam: PRESENT: clear to auscultation yousif. ABSENT: rales, rhonchi, wheezes Cardiovascular exam: PRESENT: RRR. ABSENT: diastolic murmur, rubs, systolic murmur GI/Abdominal exam: PRESENT: normal bowel sounds, soft. ABSENT: distended, guarding, mass, organolmegaly, rebound, tenderness Rectal exam: PRESENT: deferred Gentrourinary exam: PRESENT: indwelling catheter Extremities exam: PRESENT: other - Evidence of muscle wasting in all 4 extremities. Musculoskeletal exam: PRESENT: normal inspection Neurological exam: PRESENT: alert, altered, awake, CN II-XII grossly intact, o ther - Sedated. Psychiatric exam: PRESENT: appropriate affect, normal mood. ABSENT: homicidal ideation, suicidal ideation Skin exam: PRESENT: dry, intact, warm. ABSENT: cyanosis, rash Tubes/Lines: PRESENT: Endotracheal Tube, Nasogastic Tube Laboratory/Radiographs Laboratory Results: 03/06/20 04:40 03/06/20 04:40 03/04/20 03/05/20 03/06/20 12:47 16:15 04:40 WBC 12.2 H RBC 2.95 L Hgb 8.4 L Hct 25.3 L MCV 86 MCH 28.4 MCHC 33.1 RDW 15.7 H Plt Count 339 Seg Neutrophils % Sodium 137.3 Potassium 4.6 Chloride 101 Carbon Dioxide 30 Anion Gap 6 BUN 38 H Creatinine 1.02 Est GFR ( Amer) > 60 Glucose 91 Calcium 8.0 L Blood Type A POSITIVE Antibody Screen NEGATIVE 03/06/20 04:40 WBC 11.0 H RBC 3.06 L Hgb 8.5 L Hct 26.1 L MCV 85 MCH 27.9 MCHC 32.7 RDW 15.8 H Plt Count 361 Seg Neutrophils % 80.4 H Sodium Potassium Chloride Carbon Dioxide Anion Gap BUN Creatinine Est GFR ( Amer) Glucose Calcium Blood Type Antibody Screen 01/24/20 01/24/20 01/24/20 00:03 00:03 04:20 Creatine Kinase 80 CK-MB (CK-2) 0.63 Troponin I 0.132 0.133 NT-Pro-B Natriuret Pep 40043 H 01/24/20 01/24/20 01/24/20 10:43 17:19 23:06 Creatine Kinase CK-MB (CK-2) Troponin I 0.114 0.079 0.075 NT-Pro-B Natriuret Pep 67407 H 01/30/20 01/31/20 02/01/20 03:45 05:39 06:14 Creatine Kinase CK-MB (CK-2) Troponin I NT-Pro-B Natriuret Pep 36372 H 51691 H 76254 H 02/02/20 02/27/20 02/27/20 04:24 08:12 08:12 Creatine Kinase 33 L CK-MB (CK-2) 2.16 Troponin I 0.013 NT-Pro-B Natriuret Pep 54501 H 02/27/20 02/28/20 02/29/20 08:12 05:44 05:35 Creatine Kinase CK-MB (CK-2) Troponin I NT-Pro-B Natriuret Pep 44741 H 77995 H 17782 H 03/02/20 03/03/20 05:44 05:00 Creatine Kinase CK-MB (CK-2) Troponin I NT-Pro-B Natriuret Pep 95422 H 35229 H Impressions: KUB X-Ray 02/23/20 17:08 IMPRESSION: NG tube placement. Chest X-Ray 03/04/20 05:00 IMPRESSION: STABLE APPEARANCE OF THE CHEST. SUPPORT DEVICES UNCHANGED. All labs, radiographs, diagnostic studies and EKGs were personally reviewed: Yes In addition, reports of radiographic and diagnostic studies were read: Yes Assessment and Plan - Diagnosis (1) Polyneuropathy associated with critical illness Is this a current diagnosis for this admission?: Yes Plan: Still very weak. I asked him to lift arms. Assuming he understood he is unable. (2) COVID-19 Is this a current diagnosis for this admission?: Yes Plan: Currently not his main problem. (3) Acute CHF Qualifiers: Heart failure type: unspecified Qualified Code(s): I50.9 - Heart failure, unspecified Is this a current diagnosis for this admission?: Yes Plan: Resolved (4) Acute hypoxemic respiratory failure Is this a current diagnosis for this admission?: Yes Plan: To get a trach and PEG today. He is not hypoxic but to weak to maintain airway. (5) CKD stage 4 due to type 2 diabetes mellitus Is this a current diagnosis for this admission?: Yes (6) Chronic pain Qualifiers: Chronic pain type: other chronic pain Qualified Code(s): G89.29 - Other chronic pain Is this a current diagnosis for this admission?: Yes Plan: Stable (7) Diabetes mellitus type 2 in nonobese Is this a current diagnosis for this admission?: Yes Plan: Controlled. Plan Summary: Trach and PEG today and I hope to have him off vent. Critical Time Critical Time (minutes): 35 Level of Care: ICU Anticipated discharge: Acute Rehab Anticipated DC Timeframe: Other -: 1. The care of a critical patient is a dynamic process. This note is a plastic products sales representative synopsis but static in nature. The timeframe for treatments given in order is not necessarily the actual time these treatments may have been done. 2. This patient requires critical care secondary to ongoing requirements for therapy not offered or safe outside the critical care environment. Transfer to a lower level of care will result in altered life or limb morbidity and mortality. 3. Multidisciplinary rounds completed. 4. ABCDE bundle addressed.
--- NOTE | 2020-03-06 09:52 | Progress Note ---
Provider Note Provider Note: COVID-19 testing has still not resulted. Awaiting results, prior to operative intervention. Will defer trach and PEG until tomorrow. This was discussed with Dr. Chandler. I will continue to follow with you, until trach and PEG has been successfully placed.
[2020-03-06] MEDS: FAMOTIDINE 20 MG TABLET PO SCH (10:54)
[2020-03-06] MEDS: INSULIN GLARGINE,HUM.REC.ANLOG 1,000 UNIT/10 ML VIAL SUBCUT SCH (10:54)
--- NOTE | 2020-03-06 11:42 | Progress Note ---
Provider Note Provider Note: Trach and PEG postponed today. When performed hope to place on trach collar, lighten up sedation and work towards LTAC.
[2020-03-06 19:08] LABS: C DIFFICILE GDH NEGATIVE (NEGATIVE)
[2020-03-07] MEDS: INSULIN REG, HUMAN 100 UNIT/ML 3 ML VIAL (PYX) SUBCUT SCH ×4 (00:45→17:45)
[2020-03-07] MEDS: CALCIUM ACETATE 667 MG CAPSULE PO SCH ×4 (00:45→21:34)
[2020-03-07] MEDS: FENTANYL CITRATE INJ/PF 100 MCG/2 ML AMPUL IV SCH ×11 (00:45→21:33)
[2020-03-07] MEDS: ALBUTEROL SULFATE 0.083% NEB 2.5 MG/3 ML AMPUL NEB SCH ×4 (04:28→20:42)
[2020-03-07] MEDS: DEXTROSE 50%-WATER 25 GM/50 ML DISP.SYRIN IV PRN ×2 (06:10→17:46)
--- NOTE | 2020-03-07 06:22 | Progress Note ---
Provider Note Provider Note: Made rounds on patient this morning. Currently he is extubated, and tolerating his extubation well. He is on nasal cannula, with ga ood cough. A brief discussion was held with the patient regarding tracheostomy, if necessary. The patient is not interested in discussing tracheostomy at this time. If the patient becomes reintubated please renotify surgery.
[2020-03-07] MEDS: HEPARIN SOD (PORCINE) 5,000 UNIT/ML 1 ML VIAL SUBCUT SCH ×3 (07:16→21:34)
[2020-03-07] MEDS: FAMOTIDINE 20 MG TABLET PO SCH (09:08)
[2020-03-07] MEDS: INSULIN GLARGINE,HUM.REC.ANLOG 1,000 UNIT/10 ML VIAL SUBCUT SCH (09:08)
[2020-03-08] MEDS: INSULIN REG, HUMAN 100 UNIT/ML 3 ML VIAL (PYX) SUBCUT SCH ×4 (00:17→17:37)
[2020-03-08] MEDS: FENTANYL CITRATE INJ/PF 100 MCG/2 ML AMPUL IV SCH ×2 (00:18→04:12)
[2020-03-08] MEDS: CALCIUM ACETATE 667 MG CAPSULE PO SCH ×4 (00:48→17:37)
[2020-03-08] MEDS: ALBUTEROL SULFATE 0.083% NEB 2.5 MG/3 ML AMPUL NEB SCH ×4 (02:18→19:58)
[2020-03-08] MEDS: ONDANSETRON HCL INJ/PF 4 MG/2 ML SDV IV PRN ×2 (06:17→17:39)
[2020-03-08] MEDS: HEPARIN SOD (PORCINE) 5,000 UNIT/ML 1 ML VIAL SUBCUT SCH ×3 (06:18→21:33)
[2020-03-08 07:19] LABS: ALBUMIN 2.6 g/dL (3.5-5.0); ALKALINE PHOSPHATASE 88 U/L (38-126); ANION GAP 11 (5-19); ASPARTATE AMINO TRANSFERASE 16 U/L (17-59); BILIRUBIN,DIRECT 0.2 mg/dL (0.0-0.4); BILIRUBIN,TOTAL 0.5 mg/dL (0.2-1.3); BLOOD UREA NITROGEN 39 mg/dL (7-20); CARBON DIOXIDE 28 mmol/L (22-30); CHLORIDE 105 mmol/L (98-107); GLUCOSE 107 mg/dL (75-110); POTASSIUM 4.4 mmol/L (3.6-5.0); TOTAL PROTEIN 6.3 g/dL (6.3-8.2)
[2020-03-08 07:22] LABS: HEMATOCRIT 29.1 % (37.9-51.0); HEMOGLOBIN 9.5 g/dL (13.5-17.0); MEAN CORPUSCULAR HEMOGLOBIN 28.3 pg (27.0-33.4); MEAN CORPUSCULAR HGB CONC 32.4 g/dL (32.0-36.0); MEAN CORPUSCULAR VOLUME 87 fl (80-97); PLATELET COUNT 487 10^3/uL (150-450); RED BLOOD COUNT 3.34 10^6/uL (4.35-5.55); RED CELL DISTRIBUTION WIDTH 15.4 % (11.5-14.0); WHITE BLOOD COUNT 19.1 10^3/uL (4.0-10.5)
[2020-03-08 07:57] LABS: ABSOLUTE LYMPHOCYTES# (MANUAL) 0.8 10^3/uL (0.5-4.7); ABSOLUTE MONOCYTES # (MANUAL) 0.2 10^3/uL (0.1-1.4); BAND NEUTROPHILS % (MANUAL) 1 % (3-5); BASOPHILS % (MANUAL) 0 % (0-2); EOSINOPHILS % (MANUAL) 1 % (0-6); LYMPHOCYTES % (MANUAL) 4 % (13-45); MONOCYTES % (MANUAL) 1 % (3-13); SEGMENTED NEUTROPHILS % (MAN) 93 % (42-78); TOTAL CELLS COUNTED 100
[2020-03-08 08:03] LABS: ANISOCYTOSIS SLIGHT; OVALOCYTES SLIGHT; POLYCHROMASIA SLIGHT
[2020-03-08 08:04] LABS: PLATELET COMMENT ADEQUATE; POIKILOCYTOSIS SLIGHT; TEAR DROP CELLS SLIGHT
--- NOTE | 2020-03-08 09:57 | Progress Note ---
Provider Note Provider Note: I again discussed tracheostomy and PEG with the patient. He is adamantly refusing either intervention. Surgery will sign off at this time. Please renotify if the patient changes his mind.
--- NOTE | 2020-03-08 10:30 | PDOC CRITICAL CARE PROG REPORT ---
General Date:: 03/08/20 ICU Day:: 10 Resuscitation Status: Full Code Medical Power of School Janitor: None Events in the past 12 to 24 Hours:: Tolerating extubation well. Not interested in trach or PEG. Still weak. Review of systems relevant to events:: Pulmonary. Reason for ICU Addmission:: Acute hypercapnic respiratory failure, re-intubated. - Medications: Medications reviewed and adjusted accordingly: Yes Vasopressors:: None Sedation:: None Physical Exam Vital Signs: Temp Pulse Resp BP Pulse Ox 96.8 F L 117 H 22 H 106/73 95 03/08/20 08:00 03/08/20 08:00 03/08/20 08:00 03/08/20 08:00 03/08/20 06:32 Intake & Output 03/07/20 03/08/20 03/09/20 06:59 06:59 06:59 Intake Total 151 Output Total 1266 725 20 Balance -1115 -725 -20 Weight 58 kg 56.1 kg Weight/Height Weight 56.1 kg Height 5 ft 7 in General appearance: PRESENT: no acute distress, cooperative, thin Head exam: PRESENT: atraumatic, normocephalic Eye exam: PRESENT: conjunctiva pink, EOMI, PERRLA. ABSENT: scleral icterus Ear exam: PRESENT: normal external ear exam Mouth exam: PRESENT: moist, tongue midline Respiratory exam: PRESENT: clear to auscultation yousif. ABSENT: rales, rhonchi, wheezes Cardiovascular exam: PRESENT: RRR, tachycardia. ABSENT: diastolic murmur, rubs, systolic murmur GI/Abdominal exam: PRESENT: normal bowel sounds, soft. ABSENT: distended, guarding, mass, organolmegaly, rebound, tenderness Rectal exam: PRESENT: deferred Gentrourinary exam: PRESENT: indwelling catheter Extremities exam: PRESENT: full ROM, other - Muscle wasting.. ABSENT: calf tenderness, clubbing, pedal edema Neurological exam: PRESENT: alert, awake, oriented to person, oriented to place, oriented to time, oriented to situation, CN II-XII grossly intact. ABSENT: motor sensory deficit Psychiatric exam: PRESENT: appropriate affect, normal mood. ABSENT: homicidal ideation, suicidal ideation Skin exam: PRESENT: dry, intact, warm. ABSENT: cyanosis, rash Laboratory/Radiographs Laboratory Results: 03/08/20 06:25 03/08/20 06:25 03/08/20 03/08/20 06:25 06:25 WBC 19.1 H RBC 3.34 L Hgb 9.5 L Hct 29.1 L MCV 87 MCH 28.3 MCHC 32.4 RDW 15.4 H Plt Count 487 H Seg Neutrophils % Not Reportable Sodium 143.5 Potassium 4.4 Chloride 105 Carbon Dioxide 28 Anion Gap 11 BUN 39 H Creatinine 0.97 Est GFR ( Amer) > 60 Glucose 107 Calcium 9.0 Magnesium 2.3 Total Bilirubin 0.5 AST 16 L Alkaline Phosphatase 88 Total Protein 6.3 Albumin 2.6 L 01/24/20 01/24/20 01/24/20 00:03 00:03 04:20 Creatine Kinase 80 CK-MB (CK-2) 0.63 Troponin I 0.132 0.133 NT-Pro-B Natriuret Pep 32155 H 01/24/20 01/24/20 01/24/20 10:43 17:19 23:06 Creatine Kinase CK-MB (CK-2) Troponin I 0.114 0.079 0.075 NT-Pro-B Natriuret Pep 16019 H 01/30/20 01/31/20 02/01/20 03:45 05:39 06:14 Creatine Kinase CK-MB (CK-2) Troponin I NT-Pro-B Natriuret Pep 61540 H 82288 H 50981 H 02/02/20 02/27/20 02/27/20 04:24 08:12 08:12 Creatine Kinase 33 L CK-MB (CK-2) 2.16 Troponin I 0.013 NT-Pro-B Natriuret Pep 31732 H 02/27/20 02/28/20 02/29/20 08:12 05:44 05:35 Creatine Kinase CK-MB (CK-2) Troponin I NT-Pro-B Natriuret Pep 22849 H 40724 H 36530 H 03/02/20 03/03/20 05:44 05:00 Creatine Kinase CK-MB (CK-2) Troponin I NT-Pro-B Natriuret Pep 64462 H 49237 H Impressions: KUB X-Ray 02/23/20 17:08 IMPRESSION: NG tube placement. Chest X-Ray 03/04/20 05:00 IMPRESSION: STABLE APPEARANCE OF THE CHEST. SUPPORT DEVICES UNCHANGED. All labs, radiographs, diagnostic studies and EKGs were personally reviewed: Yes In addition, reports of radiographic and diagnostic studies were read: Yes Assessment and Plan - Diagnosis (1) Polyneuropathy associated with critical illness Is this a current diagnosis for this admission?: Yes Plan: This is his main issue. Cough is weak. In view of his repeated intubations will keep him in the ICU through the weekend at an C level. (2) COVID-19 Is this a current diagnosis for this admission?: Yes Plan: His last COVID test is negative. (3) Acute CHF Qualifiers: Heart failure type: unspecified Qualified Code(s): I50.9 - Heart failure, unspecified Is this a current diagnosis for this admission?: Yes Plan: Inactive (4) Acute hypoxemic respiratory failure Is this a current diagnosis for this admission?: Yes (5) Chronic pain Qualifiers: Chronic pain type: other chronic pain Qualified Code(s): G89.29 - Other chronic pain Is this a current diagnosis for this admission?: Yes Plan: Stable (6) Diabetes mellitus type 2 in nonobese Is this a current diagnosis for this admission?: Yes Plan: Controlled. Plan Summary: Patient is not interested in trach and PEG. IMC status. Hope to get to LTAC or SNF next week. Critical Time Critical Time (minutes): 30 Level of Care: IMCU Anticipated discharge: Acute Rehab Anticipated DC Timeframe: Other -: 1. The care of a critical patient is a dynamic process. This note is a territory sales representative synopsis but static in nature. The timeframe for treatments given in order is not necessarily the actual time these treatments may have been done. 2. This patient requires critical care secondary to ongoing requirements for therapy not offered or safe outside the critical care environment. Transfer to a lower level of care will result in altered life or limb morbidity and mortality. 3. Multidisciplinary rounds completed. 4. ABCDE bundle addressed.
[2020-03-08] MEDS: FAMOTIDINE 20 MG TABLET PO SCH (10:48)
[2020-03-08] MEDS: INSULIN GLARGINE,HUM.REC.ANLOG 1,000 UNIT/10 ML VIAL SUBCUT SCH (10:48)
--- NOTE | 2020-03-08 12:35 | PDOC CRITICAL CARE PROG REPORT ---
General Date:: 03/07/20 ICU Day:: 9 Resuscitation Status: Full Code Medical Power of Competitive Intelligence Manager: None Events in the past 12 to 24 Hours:: Self extubated yesterday. Not interested in trach and PEG "Leave me alone." Review of systems relevant to events:: Pulmonary Reason for ICU Addmission:: Acute hypercapnic respiratory, self extubated last night - Medications: Medications reviewed and adjusted accordingly: Yes Vasopressors:: None Sedation:: None Physical Exam Vital Signs: Temp Pulse Resp BP Pulse Ox 97.3 F 112 H 20 112/65 99 03/08/20 10:00 03/08/20 10:00 03/08/20 11:00 03/08/20 10:33 03/08/20 11:00 Intake & Output 03/07/20 03/08/20 03/09/20 06:59 06:59 06:59 Intake Total 151 Output Total 1266 725 120 Balance -1115 -725 -120 Weight 58 kg 56.1 kg Weight/Height Weight 56.1 kg Height 5 ft 7 in General appearance: PRESENT: no acute distress, cooperative, thin Head exam: PRESENT: atraumatic, normocephalic Eye exam: PRESENT: conjunctiva pink, EOMI, PERRLA. ABSENT: scleral icterus Ear exam: PRESENT: normal external ear exam Mouth exam: PRESENT: moist, tongue midline Respiratory exam: PRESENT: clear to auscultation yousif, decreased breath sounds. ABSENT: rales, rhonchi, wheezes Cardiovascular exam: PRESENT: tachycardia GI/Abdominal exam: PRESENT: normal bowel sounds, soft. ABSENT: distended, guarding, mass, organolmegaly, rebound, tenderness Rectal exam: PRESENT: deferred Gentrourinary exam: PRESENT: indwelling catheter Extremities exam: PRESENT: other - Emaciated. Musculoskeletal exam: PRESENT: normal inspection Neurological exam: PRESENT: alert, awake, oriented to person, oriented to place, oriented to time, oriented to situation, CN II-XII grossly intact. ABSENT: motor sensory deficit Skin exam: PRESENT: dry, intact, warm. ABSENT: cyanosis, rash Laboratory/Radiographs Laboratory Results: 03/08/20 06:25 03/08/20 06:25 03/08/20 03/08/20 06:25 06:25 WBC 19.1 H RBC 3.34 L Hgb 9.5 L Hct 29.1 L MCV 87 MCH 28.3 MCHC 32.4 RDW 15.4 H Plt Count 487 H Seg Neutrophils % Not Reportable Sodium 143.5 Potassium 4.4 Chloride 105 Carbon Dioxide 28 Anion Gap 11 BUN 39 H Creatinine 0.97 Est GFR ( Amer) > 60 Glucose 107 Calcium 9.0 Magnesium 2.3 Total Bilirubin 0.5 AST 16 L Alkaline Phosphatase 88 Total Protein 6.3 Albumin 2.6 L 01/24/20 01/24/20 01/24/20 00:03 00:03 04:20 Creatine Kinase 80 CK-MB (CK-2) 0.63 Troponin I 0.132 0.133 NT-Pro-B Natriuret Pep 61874 H 01/24/20 01/24/20 01/24/20 10:43 17:19 23:06 Creatine Kinase CK-MB (CK-2) Troponin I 0.114 0.079 0.075 NT-Pro-B Natriuret Pep 42056 H 01/30/20 01/31/20 02/01/20 03:45 05:39 06:14 Creatine Kinase CK-MB (CK-2) Troponin I NT-Pro-B Natriuret Pep 36598 H 07607 H 76555 H 02/02/20 02/27/20 02/27/20 04:24 08:12 08:12 Creatine Kinase 33 L CK-MB (CK-2) 2.16 Troponin I 0.013 NT-Pro-B Natriuret Pep 83374 H 02/27/20 02/28/20 02/29/20 08:12 05:44 05:35 Creatine Kinase CK-MB (CK-2) Troponin I NT-Pro-B Natriuret Pep 06978 H 56407 H 90433 H 03/02/20 03/03/20 05:44 05:00 Creatine Kinase CK-MB (CK-2) Troponin I NT-Pro-B Natriuret Pep 79689 H 58419 H Impressions: KUB X-Ray 02/23/20 17:08 IMPRESSION: NG tube placement. Chest X-Ray 03/04/20 05:00 IMPRESSION: STABLE APPEARANCE OF THE CHEST. SUPPORT DEVICES UNCHANGED. All labs, radiographs, diagnostic studies and EKGs were personally reviewed: Yes In addition, reports of radiographic and diagnostic studies were read: Yes Assessment and Plan - Diagnosis (1) Polyneuropathy associated with critical illness Is this a current diagnosis for this admission?: Yes Plan: Main problem. Was to have trach and PEG today but self extubated and now does not want it. Surgery indefinately postponed. Still needs rehab. LTAC would be best. Pre-authorization and acceptance pending. Keep in ICU due to tenuos respiratory status and repeated intubations. (2) COVID-19 Is this a current diagnosis for this admission?: Yes Plan: Most recent test is negative. (3) Acute CHF Qualifiers: Heart failure type: unspecified Qualified Code(s): I50.9 - Heart failure, unspecified Is this a current diagnosis for this admission?: Yes Plan: Stable (4) Acute hypoxemic respiratory failure Is this a current diagnosis for this admission?: Yes Plan: Resolved but still has weak cough. (5) Chronic pain Qualifiers: Chronic pain type: other chronic pain Qualified Code(s): G89.29 - Other chronic pain Is this a current diagnosis for this admission?: Yes Plan: Stabnle (6) Diabetes mellitus type 2 in nonobese Is this a current diagnosis for this admission?: Yes Plan: Controlled Plan Summary: Keep in ICU today and hope to get to LTAC. Critical Time Critical Time (minutes): 35 Level of Care: ICU Anticipated discharge: Acute Rehab Anticipated DC Timeframe: Other -: 1. The care of a critical patient is a dynamic process. This note is a sales representative rural power synopsis but static in nature. The timeframe for treatments given in order is not necessarily the actual time these treatments may have been done. 2. This patient requires critical care secondary to ongoing requirements for therapy not offered or safe outside the critical care environment. Transfer to a lower level of care will result in altered life or limb morbidity and mortality. 3. Multidisciplinary rounds completed. 4. ABCDE bundle addressed.
[2020-03-09] MEDS: INSULIN REG, HUMAN 100 UNIT/ML 3 ML VIAL (PYX) SUBCUT SCH ×4 (00:29→18:07)
[2020-03-09] MEDS: ALBUTEROL SULFATE 0.083% NEB 2.5 MG/3 ML AMPUL NEB SCH ×4 (02:10→19:52)
[2020-03-09] MEDS: HEPARIN SOD (PORCINE) 5,000 UNIT/ML 1 ML VIAL SUBCUT SCH ×3 (06:08→21:38)
[2020-03-09] MEDS ORDERED: ETOMIDATE INJ/PF 20 MG/10 ML SDV IV ONE ×2 (09:09→18:15)
[2020-03-09] MEDS ORDERED: EPINEPHRINE INJ 1 MG/10 ML DISP.SYRIN ONE (09:10)
--- NOTE | 2020-03-09 09:56 | Progress Note ---
Provider Note Provider Note: Patient became hypoxic this AM. This time he was more hypoxic and became obtunded and hypotensive. Patient intubated with #7.5 ETT with glidescope assistance.
[2020-03-09] MEDS: FAMOTIDINE 20 MG TABLET PO SCH (09:59)
--- NOTE | 2020-03-09 10:21 | PDOC CRITICAL CARE PROG REPORT ---
General Date:: 03/09/20 ICU Day:: 1 Ventilator Day:: 1 Resuscitation Status: Full Code Medical Power of Claim Processor: None Events in the past 12 to 24 Hours:: Patient became hypoxic again this AM. Reintubated again Review of systems relevant to events:: Pulmonary, CV Reason for ICU Addmission:: Acute hypercapnic respiratory, self extubated last night - Medications: Medications reviewed and adjusted accordingly: Yes Vasopressors:: None Sedation:: None Physical Exam Vital Signs: Temp Pulse Resp BP Pulse Ox 100.6 F H 127 H 23 H 109/70 100 03/09/20 07:19 03/09/20 09:37 03/09/20 09:37 03/09/20 07:19 03/09/20 09:37 Intake & Output 03/08/20 03/09/20 03/10/20 06:59 06:59 06:59 Intake Total 480 Output Total 725 335 Balance -725 145 Weight 56.1 kg 55.7 kg Weight/Height Weight 55.7 kg Height 5 ft 7 in General appearance: PRESENT: no acute distress, thin Head exam: PRESENT: atraumatic, normocephalic Eye exam: PRESENT: conjunctiva pink, EOMI, PERRLA. ABSENT: scleral icterus Ear exam: PRESENT: normal external ear exam Mouth exam: PRESENT: moist, tongue midline Respiratory exam: PRESENT: decreased breath sounds, rhonchi, tachypnea Cardiovascular exam: PRESENT: RRR, tachycardia GI/Abdominal exam: PRESENT: normal bowel sounds, soft. ABSENT: distended, guarding, mass, organolmegaly, rebound, tenderness Rectal exam: PRESENT: deferred Gentrourinary exam: PRESENT: indwelling catheter Extremities exam: PRESENT: other - Emaciated Musculoskeletal exam: PRESENT: normal inspection Neurological exam: PRESENT: altered, other - Obtunded Skin exam: PRESENT: pallor Tubes/Lines: PRESENT: Endotracheal Tube, Nasogastic Tube Laboratory/Radiographs Laboratory Results: 03/08/20 06:25 03/08/20 06:25 01/24/20 01/24/20 01/24/20 00:03 00:03 04:20 Creatine Kinase 80 CK-MB (CK-2) 0.63 Troponin I 0.132 0.133 NT-Pro-B Natriuret Pep 59345 H 01/24/20 01/24/20 01/24/20 10:43 17:19 23:06 Creatine Kinase CK-MB (CK-2) Troponin I 0.114 0.079 0.075 NT-Pro-B Natriuret Pep 73639 H 01/30/20 01/31/20 02/01/20 03:45 05:39 06:14 Creatine Kinase CK-MB (CK-2) Troponin I NT-Pro-B Natriuret Pep 83528 H 51280 H 79012 H 02/02/20 02/27/20 02/27/20 04:24 08:12 08:12 Creatine Kinase 33 L CK-MB (CK-2) 2.16 Troponin I 0.013 NT-Pro-B Natriuret Pep 53589 H 02/27/20 02/28/20 02/29/20 08:12 05:44 05:35 Creatine Kinase CK-MB (CK-2) Troponin I NT-Pro-B Natriuret Pep 58918 H 63495 H 55874 H 03/02/20 03/03/20 05:44 05:00 Creatine Kinase CK-MB (CK-2) Troponin I NT-Pro-B Natriuret Pep 11636 H 34164 H Impressions: KUB X-Ray 02/23/20 17:08 IMPRESSION: NG tube placement. Chest X-Ray 03/04/20 05:00 IMPRESSION: STABLE APPEARANCE OF THE CHEST. SUPPORT DEVICES UNCHANGED. All labs, radiographs, diagnostic studies and EKGs were personally reviewed: Yes In addition, reports of radiographic and diagnostic studies were read: Yes Assessment and Plan - Diagnosis (1) Polyneuropathy associated with critical illness Is this a current diagnosis for this admission?: Yes Plan: He needs rehab badly. Now that he is intubated again he will get a trach and PEG. (2) COVID-19 Is this a current diagnosis for this admission?: Yes Plan: Negative testing this week (3) Acute CHF Qualifiers: Heart failure type: unspecified Qualified Code(s): I50.9 - Heart failure, unspecified Is this a current diagnosis for this admission?: Yes Plan: He is actually more on the dehydrated side. Give IVF (4) Acute hypoxemic respiratory failure Is this a current diagnosis for this admission?: Yes Plan: He has done this before. On a near daily basis but usually not this severe. He has much secretions that he cannot clear. A tracheotomy would help this as he has consistently refused when extubated. Now reintubated, we will explore this option again. (5) Chronic pain Qualifiers: Chronic pain type: other chronic pain Qualified Code(s): G89.29 - Other chronic pain Is this a current diagnosis for this admission?: Yes Plan: Stable (6) Diabetes mellitus type 2 in nonobese Is this a current diagnosis for this admission?: Yes Plan: Controlled Plan Summary: Keep intubated. BP rising with IVF. May need pressors. Trach and PEG next week. Critical Time Critical Time (minutes): 60 Level of Care: ICU Anticipated discharge: Acute Rehab Anticipated DC Timeframe: Other -: 1. The care of a critical patient is a dynamic process. This note is a customer service representative synopsis but static in nature. The timeframe for treatments given in order is not necessarily the actual time these treatments may have been done. 2. This patient requires critical care secondary to ongoing requirements for therapy not offered or safe outside the critical care environment. Transfer to a lower level of care will result in altered life or limb morbidity and mortality. 3. Multidisciplinary rounds completed. 4. ABCDE bundle addressed.
[2020-03-09] MEDS: INSULIN GLARGINE,HUM.REC.ANLOG 1,000 UNIT/10 ML VIAL SUBCUT SCH (10:41)
[2020-03-09 11:34] LABS: ARTERIAL BLOOD BASE EXCESS 4.9 mmol/L; ARTERIAL BLOOD FIO2 100%; ARTERIAL BLOOD H2CO3 1.53 mmol/L (1.05-1.35); ARTERIAL BLOOD HCO3 30.5 mmol/L (20-24); ARTERIAL BLOOD PCO2 50.7 mmHg (35-45); ARTERIAL BLOOD PO2 92.7 mmHg (80-100)
--- NOTE | 2020-03-09 12:40 | RADIOLOGY REPORT (SQ) ---
EXAM DESCRIPTION: CHEST SINGLE VIEW IMAGES COMPLETED DATE/TIME: 03/09/2020 12:23 pm REASON FOR STUDY: Just reintubated COMPARISON: 03/04/2020 NUMBER OF VIEWS: One view. TECHNIQUE: Single frontal radiographic image of the chest acquired. LIMITATIONS: None. FINDINGS: ENDOTRACHEAL TUBE: Appropriate location. OTHER SUPPORT DEVICES: NG tube. There has been interval removal of the right IJ catheter noted on th e prior study. CHANGES IN RADIOGRAPHIC FINDINGS: None. Stable appearance. HARDWARE: None in the chest. OTHER: No other significant finding. IMPRESSION: STABLE APPEARANCE OF THE CHEST. TECHNICAL DOCUMENTATION: JOB ID: [id number] 2010 [employer]- All Rights Reserved Reading location - IP/workstation name: [email or web address]
[2020-03-09] MEDS: PANTOPRAZOLE SODIUM 40 MG VIAL IV SCH (14:09)
[2020-03-09] MEDS ORDERED: NOREPINEPHRINE BITARTRATE INJ/PF 4 MG/4 ML SDV IV ONE (16:10)
[2020-03-09] MEDS ORDERED: DEXTROSE 5%-WATER 250 ML with NOREPINEPHRINE BITARTRATE 4 MG IV PRN ×2 (17:45)
[2020-03-09] MEDS: METHYLPREDNISOLONE INJ 40 MG/1 ML SDV IV SCH (18:07)
[2020-03-09] MEDS: OXYCODONE HCL IR 5 MG TABLET PO PRN (18:07)
[2020-03-09] MEDS ORDERED: EPINEPHRINE INJ/PF 1 MG/1 ML AMPULE IV ONE (18:15)
[2020-03-09] MEDS ORDERED: EPINEPHRINE INJ/PF 1 MG/1 ML AMPULE SUBCUT ONE (18:15)
[2020-03-09] MEDS ORDERED: ALBUMIN HUMAN 50.0 GM/200 ML RTUINJ IV ONE (22:39)
[2020-03-09] MEDS ORDERED: ALBUMIN HUMAN 0 ML IV ONE (23:00)
[2020-03-09] MEDS: ALBUMIN HUMAN 12.5 GM/50 ML RTUINJ IV SCH (23:52)
[2020-03-10] MEDS: ALBUMIN HUMAN 12.5 GM/50 ML RTUINJ IV SCH ×3 (00:29→02:41)
[2020-03-10] MEDS: OXYCODONE HCL IR 5 MG TABLET PO PRN ×3 (01:14→18:37)
[2020-03-10] MEDS: INSULIN REG, HUMAN 100 UNIT/ML 3 ML VIAL (PYX) SUBCUT SCH ×5 (01:14→23:39)
[2020-03-10] MEDS: ALBUTEROL SULFATE 0.083% NEB 2.5 MG/3 ML AMPUL NEB SCH ×4 (02:30→20:15)
[2020-03-10 04:57] LABS: ARTERIAL BLOOD BASE EXCESS 1.8 mmol/L; ARTERIAL BLOOD H2CO3 1.18 mmol/L (1.05-1.35); ARTERIAL BLOOD HCO3 26.1 mmol/L (20-24); ARTERIAL BLOOD O2 SATURATION 91.6 % (94-98); ARTERIAL BLOOD PCO2 39.3 mmHg (35-45); ARTERIAL BLOOD PH 7.44 (7.35-7.45); ARTERIAL BLOOD TOTAL CO2 27.3 mmol/L (23-27)
[2020-03-10 05:02] LABS: ARTERIAL BLOOD FIO2 40%
[2020-03-10] MEDS: HEPARIN SOD (PORCINE) 5,000 UNIT/ML 1 ML VIAL SUBCUT SCH ×3 (05:34→21:43)
[2020-03-10] MEDS: METHYLPREDNISOLONE INJ 40 MG/1 ML SDV IV SCH ×2 (05:34→18:37)
[2020-03-10 05:58] LABS: HEMATOCRIT 22.6 % (37.9-51.0); MEAN CORPUSCULAR HGB CONC 32.1 g/dL (32.0-36.0); MEAN CORPUSCULAR VOLUME 87 fl (80-97); PLATELET COUNT 403 10^3/uL (150-450); RED BLOOD COUNT 2.59 10^6/uL (4.35-5.55); RED CELL DISTRIBUTION WIDTH 16.1 % (11.5-14.0); WHITE BLOOD COUNT 21.1 10^3/uL (4.0-10.5)
[2020-03-10 06:17] LABS: ANION GAP 9 (5-19); BLOOD UREA NITROGEN 49 mg/dL (7-20); CALCIUM 8.3 mg/dL (8.4-10.2); CARBON DIOXIDE 26 mmol/L (22-30); CHLORIDE 114 mmol/L (98-107); GLUCOSE 225 mg/dL (75-110); POTASSIUM 4.8 mmol/L (3.6-5.0)
[2020-03-10 06:37] LABS: ABSOLUTE LYMPHOCYTES# (MANUAL) 1.1 10^3/uL (0.5-4.7); ABSOLUTE MONOCYTES # (MANUAL) 0.6 10^3/uL (0.1-1.4); BASOPHILS % (MANUAL) 0 % (0-2); EOSINOPHILS % (MANUAL) 0 % (0-6); LYMPHOCYTES % (MANUAL) 5 % (13-45); MONOCYTES % (MANUAL) 3 % (3-13); PLATELET COMMENT ADEQUATE; SEGMENTED NEUTROPHILS % (MAN) 92 % (42-78); TOTAL CELLS COUNTED 100
[2020-03-10 06:38] LABS: ANISOCYTOSIS 1+
[2020-03-10 06:39] LABS: OVALOCYTES SLIGHT; POLYCHROMASIA SLIGHT
[2020-03-10 06:40] LABS: SCHISTOCYTES SLIGHT
[2020-03-10] MEDS: RINGERS SOLUTION,LACTATED 1,000 ML IV PRN ×3 (06:50→23:40)
[2020-03-10 06:58] LABS: HEMOGLOBIN 7.3 g/dL (13.5-17.0)
[2020-03-10] MEDS: INSULIN GLARGINE,HUM.REC.ANLOG 1,000 UNIT/10 ML VIAL SUBCUT SCH (11:28)
[2020-03-10] MEDS: PANTOPRAZOLE SODIUM 40 MG VIAL IV SCH (11:28)
--- NOTE | 2020-03-10 13:59 | PDOC CRITICAL CARE PROG REPORT ---
General Date:: 03/10/20 ICU Day:: 12 Ventilator Day:: 1 Resuscitation Status: Full Code Medical Power of Metal Sprayer: None Events in the past 12 to 24 Hours:: Awake and complaining of pain. Reintubated. Review of systems relevant to events:: Pulmonary, CV Reason for ICU Addmission:: Acute hypercapnic respiratory, self extubated last night - Medications: Medications reviewed and adjusted accordingly: Yes Vasopressors:: Levophed. Physical Exam Vital Signs: Temp Pulse Resp BP Pulse Ox 101.3 F H 116 H 18 112/75 96 03/09/20 16:00 03/10/20 13:29 03/10/20 13:29 03/10/20 06:24 03/10/20 13:29 Intake & Output 03/09/20 03/10/20 03/11/20 06:59 06:59 06:59 Intake Total 480 1062 Output Total 335 575 180 Balance 145 487 -180 Weight 55.7 kg 60.4 kg Weight/Height Weight 60.4 kg Height 5 ft 7 in General appearance: PRESENT: no acute distress, cooperative, thin Head exam: PRESENT: atraumatic, normocephalic Eye exam: PRESENT: conjunctiva pink, EOMI, PERRLA. ABSENT: scleral icterus Ear exam: PRESENT: normal external ear exam Mouth exam: PRESENT: moist, tongue midline Respiratory exam: PRESENT: decreased breath sounds, symmetrical, unlabored Cardiovascular exam: PRESENT: RRR, tachycardia. ABSENT: diastolic murmur, rubs, systolic murmur GI/Abdominal exam: PRESENT: normal bowel sounds, soft. ABSENT: distended, guarding, mass, organolmegaly, rebound, tenderness Rectal exam: PRESENT: deferred Gentrourinary exam: PRESENT: indwelling catheter Extremities exam: PRESENT: other - Emaciated Musculoskeletal exam: PRESENT: normal inspection Neurological exam: PRESENT: alert, altered, awake, oriented to person Skin exam: PRESENT: dry, intact, warm. ABSENT: cyanosis, rash Tubes/Lines: PRESENT: Endotracheal Tube, Nasogastic Tube Laboratory/Radiographs Laboratory Results: 03/10/20 05:40 03/10/20 05:40 03/10/20 03/10/20 03/10/20 00:28 04:45 05:40 WBC 21.1 H RBC 2.59 L Hgb 7.3 L D Hct 22.6 L MCV 87 MCH 28.0 MCHC 32.1 RDW 16.1 H Plt Count 403 Seg Neutrophils % Not Reportable Carbonic Acid 1.18 HCO3/H2CO3 Ratio 22:1 ABG pH 7.44 ABG pCO2 39.3 ABG pO2 59.0 L ABG HCO3 26.1 H ABG O2 Saturation 91.6 L ABG Base Excess 1.8 FiO2 40% Sodium Potassium Chloride Carbon Dioxide Anion Gap BUN Creatinine Est GFR ( Amer) Glucose 242 H Calcium 03/10/20 05:40 WBC RBC Hgb Hct MCV MCH MCHC RDW Plt Count Seg Neutrophils % Carbonic Acid HCO3/H2CO3 Ratio ABG pH ABG pCO2 ABG pO2 ABG HCO3 ABG O2 Saturation ABG Base Excess FiO2 Sodium 148.9 H Potassium 4.8 Chloride 114 H Carbon Dioxide 26 Anion Gap 9 BUN 49 H Creatinine 0.98 Est GFR ( Amer) > 60 Glucose 225 H Calcium 8.3 L 01/24/20 01/24/20 01/24/20 00:03 00:03 04:20 Creatine Kinase 80 CK-MB (CK-2) 0.63 Troponin I 0.132 0.133 NT-Pro-B Natriuret Pep 60185 H 01/24/20 01/24/20 01/24/20 10:43 17:19 23:06 Creatine Kinase CK-MB (CK-2) Troponin I 0.114 0.079 0.075 NT-Pro-B Natriuret Pep 47881 H 01/30/20 01/31/20 02/01/20 03:45 05:39 06:14 Creatine Kinase CK-MB (CK-2) Troponin I NT-Pro-B Natriuret Pep 58048 H 48658 H 68991 H 02/02/20 02/27/20 02/27/20 04:24 08:12 08:12 Creatine Kinase 33 L CK-MB (CK-2) 2.16 Troponin I 0.013 NT-Pro-B Natriuret Pep 32268 H 02/27/20 02/28/20 02/29/20 08:12 05:44 05:35 Creatine Kinase CK-MB (CK-2) Troponin I NT-Pro-B Natriuret Pep 41656 H 10417 H 70965 H 03/02/20 03/03/20 05:44 05:00 Creatine Kinase CK-MB (CK-2) Troponin I NT-Pro-B Natriuret Pep 98965 H 99429 H Impressions: KUB X-Ray 02/23/20 17:08 IMPRESSION: NG tube placement. Chest X-Ray 03/09/20 00:00 IMPRESSION: STABLE APPEARANCE OF THE CHEST. All labs, radiographs, diagnostic studies and EKGs were personally reviewed: Yes In addition, reports of radiographic and diagnostic studies were read: Yes Assessment and Plan - Diagnosis (1) Polyneuropathy associated with critical illness Is this a current diagnosis for this admission?: Yes Plan: Now that he has needed reintubation he will now need a trach and PEG. (2) COVID-19 Is this a current diagnosis for this admission?: Yes Plan: Resolved (3) Acute CHF Qualifiers: Heart failure type: unspecified Qualified Code(s): I50.9 - Heart failure, unspecified Is this a current diagnosis for this admission?: Yes Plan: Inactive (4) Acute hypoxemic respiratory failure Is this a current diagnosis for this admission?: Yes Plan: He is not hypoxic but if extubated has shown us he cannot maintain airway without mucous plugging. (5) Chronic pain Qualifiers: Chronic pain type: other chronic pain Qualified Code(s): G89.29 - Other chronic pain Is this a current diagnosis for this admission?: Yes Plan: Back on his home oxycodone. (6) Diabetes mellitus type 2 in nonobese Is this a current diagnosis for this admission?: Yes Plan: Controlled Plan Summary: Plan on trach and PEG this week. Critical Time Critical Time (minutes): 35 Level of Care: ICU Anticipated discharge: Acute Rehab Anticipated DC Timeframe: Other -: 1. The care of a critical patient is a dynamic process. This note is a eligibility services representative synopsis but static in nature. The timeframe for treatments given in order is not necessarily the actual time these treatments may have been done. 2. This patient requires critical care secondary to ongoing requirements for therapy not offered or safe outside the critical care environment. Transfer to a lower level of care will result in altered life or limb morbidity and mortality. 3. Multidisciplinary rounds completed. 4. ABCDE bundle addressed.
[2020-03-10] MEDS ORDERED: BUMETANIDE INJ/PF 1 MG/4 ML SDV IV ONE (21:00)
[2020-03-11] MEDS: ALBUTEROL SULFATE 0.083% NEB 2.5 MG/3 ML AMPUL NEB SCH ×4 (02:16→20:50)
[2020-03-11 04:51] LABS: HEMATOCRIT 24.6 % (37.9-51.0); MEAN CORPUSCULAR HEMOGLOBIN 27.9 pg (27.0-33.4); MEAN CORPUSCULAR HGB CONC 31.8 g/dL (32.0-36.0); MEAN CORPUSCULAR VOLUME 88 fl (80-97); PLATELET COUNT 433 10^3/uL (150-450); RED BLOOD COUNT 2.81 10^6/uL (4.35-5.55); RED CELL DISTRIBUTION WIDTH 15.9 % (11.5-14.0); WHITE BLOOD COUNT 16.3 10^3/uL (4.0-10.5)
[2020-03-11 05:00] LABS: HEMOGLOBIN 7.8 g/dL (13.5-17.0)
[2020-03-11 05:09] LABS: ANION GAP 7 (5-19); BLOOD UREA NITROGEN 47 mg/dL (7-20); CALCIUM 8.6 mg/dL (8.4-10.2); CARBON DIOXIDE 29 mmol/L (22-30); CHLORIDE 110 mmol/L (98-107); GLUCOSE 281 mg/dL (75-110); POTASSIUM 5.3 mmol/L (3.6-5.0)
[2020-03-11 05:11] LABS: ABSOLUTE LYMPHOCYTES# (MANUAL) 0.2 10^3/uL (0.5-4.7); ABSOLUTE MONOCYTES # (MANUAL) 0.2 10^3/uL (0.1-1.4); ANISOCYTOSIS 1+; BAND NEUTROPHILS % (MANUAL) 2 % (3-5); BASOPHILS % (MANUAL) 0 % (0-2); EOSINOPHILS % (MANUAL) 0 % (0-6); LYMPHOCYTES % (MANUAL) 1 % (13-45); MONOCYTES % (MANUAL) 1 % (3-13); PLATELET COMMENT ADEQUATE; POLYCHROMASIA 1+; SEGMENTED NEUTROPHILS % (MAN) 96 % (42-78); TOTAL CELLS COUNTED 100
[2020-03-11 06:04] LABS: ARTERIAL BLOOD BASE EXCESS 3.7 mmol/L; ARTERIAL BLOOD H2CO3 1.13 mmol/L (1.05-1.35); ARTERIAL BLOOD HCO3 27.5 mmol/L (20-24); ARTERIAL BLOOD O2 SATURATION 95.5 % (94-98); ARTERIAL BLOOD PCO2 37.6 mmHg (35-45); ARTERIAL BLOOD PH 7.48 (7.35-7.45); ARTERIAL BLOOD PO2 71.5 mmHg (80-100); ARTERIAL BLOOD TOTAL CO2 28.7 mmol/L (23-27)
[2020-03-11 06:06] LABS: ARTERIAL BLOOD FIO2 50%
[2020-03-11] MEDS: HEPARIN SOD (PORCINE) 5,000 UNIT/ML 1 ML VIAL SUBCUT SCH ×3 (06:45→21:49)
[2020-03-11] MEDS: INSULIN REG, HUMAN 100 UNIT/ML 3 ML VIAL (PYX) SUBCUT SCH ×3 (06:45→18:34)
[2020-03-11] MEDS: METHYLPREDNISOLONE INJ 40 MG/1 ML SDV IV SCH ×2 (06:46→18:19)
--- NOTE | 2020-03-11 08:38 | RADIOLOGY REPORT (SQ) ---
EXAM DESCRIPTION: CHEST SINGLE VIEW IMAGES COMPLETED DATE/TIME: 03/11/2020 6:36 am REASON FOR STUDY: vent COMPARISON: 03/09/2020 EXAM PARAMETERS: NUMBER OF VIEWS: One view. TECHNIQUE: Single frontal radiographic view of the chest acquired. RADIATION DOSE: NA LIMITATIONS: None. FINDINGS: LUNGS AND PLEURA: Multifocal airspace disease greatest within the right upper lobe and lef t lung base. Left lung opacities mildly worsened from prior. No large effusion. No pneumothorax. MEDIASTINUM AND HILAR STRUCTURES: Stable widening of the paratracheal stripes, likely vascular. HEART AND VASCULAR STRUCTURES: Stable. BONES: No acute findings. Partially visualized cervical fusion hardware. HARDWARE: Endotracheal tube tip overlies midthoracic trachea. Enteric tube tip overlies distal stoma ch. OTHER: No other significant finding. IMPRESSION: 1. Patchy bilateral airspace disease greatest within the right upper and left lower lob es, mildly worsened. 2. Endotracheal tube tip overlies midthoracic trachea. Enteric tube tip overlies distal stomach. TECHNICAL DOCUMENTATION: JOB ID: [id number] 2010 [employer]- All Rights Reserved Reading location - IP/workstation name: [email or web address]
[2020-03-11] MEDS: OXYCODONE HCL IR 5 MG TABLET PO PRN (09:17)
[2020-03-11] MEDS: PANTOPRAZOLE SODIUM 40 MG VIAL IV SCH (09:17)
[2020-03-11] MEDS: RINGERS SOLUTION,LACTATED 1,000 ML IV PRN ×2 (09:17→18:18)
[2020-03-11] MEDS: INSULIN GLARGINE,HUM.REC.ANLOG 1,000 UNIT/10 ML VIAL SUBCUT SCH (09:18)
--- NOTE | 2020-03-11 14:58 | PDOC CRITICAL CARE PROG REPORT ---
General Resuscitation Status: Full Code Medical Power of Secretary Of State: None Events in the past 12 to 24 Hours:: Awake and complaining of pain. Reintubated. 03/11 This is the 5th time the patient has had to be reintubated for respiratory failure. The patient has severe critical illness polyneuropathy. He has developed mucous plugging on this basis multiple times. The patient has steadfastly refused trach and PEG. I told him that he would likely if he were extubated . The patient shrugged his shoulders and appears willing to accept that fate at this point. Reason for ICU Addmission:: Acute hypercapnic respiratory, self extubated last night Physical Exam Vital Signs: Temp Pulse Resp BP Pulse Ox 98.2 F 107 H 23 H 130/81 H 98 03/11/20 10:00 03/11/20 14:30 03/11/20 14:30 03/11/20 14:25 03/11/20 14:30 Intake & Output 03/10/20 03/11/20 03/12/20 06:59 06:59 06:59 Intake Total 1062 2290 1000 Output Total 575 1585 375 Balance 487 705 625 Weight 60.4 kg 60.7 kg Weight/Height Weight 60.7 kg Height 5 ft 7 in Head exam: PRESENT: atraumatic, normocephalic Eye exam: PRESENT: conjunctiva pink Mouth exam: PRESENT: moist Neck exam: ABSENT: lymphadenopathy, tenderness Respiratory exam: PRESENT: decreased breath sounds, unlabored. ABSENT: accessory muscle use Pulses: PRESENT: +2 pedal pulses bilateral GI/Abdominal exam: PRESENT: diminished bowel sounds Extremities exam: ABSENT: calf tenderness, clubbing Musculoskeletal exam: PRESENT: full ROM Neurological exam: PRESENT: alert, awake - The patient is able to answer yes and know with his head movements. He has a difficcult time writing. Laboratory/Radiographs Laboratory Results: 03/11/20 04:33 03/11/20 04:33 03/11/20 03/11/20 03/11/20 04:33 04:33 05:36 WBC 16.3 H RBC 2.81 L Hgb 7.8 L Hct 24.6 L MCV 88 MCH 27.9 MCHC 31.8 L RDW 15.9 H Plt Count 433 Seg Neutrophils % Not Reportable Carbonic Acid 1.13 HCO3/H2CO3 Ratio 24:1 ABG pH 7.48 H ABG pCO2 37.6 ABG pO2 71.5 L ABG HCO3 27.5 H ABG O2 Saturation 95.5 ABG Base Excess 3.7 FiO2 50% Sodium 145.9 H Potassium 5.3 H Chloride 110 H Carbon Dioxide 29 Anion Gap 7 BUN 47 H Creatinine 0.87 Est GFR ( Amer) > 60 Glucose 281 H Calcium 8.6 Magnesium 2.2 01/24/20 01/24/20 01/24/20 00:03 00:03 04:20 Creatine Kinase 80 CK-MB (CK-2) 0.63 Troponin I 0.132 0.133 NT-Pro-B Natriuret Pep 26039 H 01/24/20 01/24/20 01/24/20 10:43 17:19 23:06 Creatine Kinase CK-MB (CK-2) Troponin I 0.114 0.079 0.075 NT-Pro-B Natriuret Pep 68388 H 01/30/20 01/31/20 02/01/20 03:45 05:39 06:14 Creatine Kinase CK-MB (CK-2) Troponin I NT-Pro-B Natriuret Pep 27888 H 60037 H 10882 H 02/02/20 02/27/20 02/27/20 04:24 08:12 08:12 Creatine Kinase 33 L CK-MB (CK-2) 2.16 Troponin I 0.013 NT-Pro-B Natriuret Pep 00764 H 02/27/20 02/28/20 02/29/20 08:12 05:44 05:35 Creatine Kinase CK-MB (CK-2) Troponin I NT-Pro-B Natriuret Pep 58321 H 13242 H 58712 H 03/02/20 03/03/20 03/11/20 05:44 05:00 04:33 Creatine Kinase CK-MB (CK-2) Troponin I NT-Pro-B Natriuret Pep 26673 H 96255 H 93586 H Impressions: KUB X-Ray 02/23/20 17:08 IMPRESSION: NG tube placement. Chest X-Ray 03/11/20 05:00 IMPRESSION: 1. Patchy bilateral airspace disease greatest within the right upper and left lower lobes, mildly worsened. 2. Endotracheal tube tip overlies midthoracic trachea. Enteric tube tip overlies distal stomach. Assessment and Plan - Diagnosis (1) Critical illness polyneuropathy Is this a current diagnosis for this admission?: Yes Plan: The patient has a significant polyneuropathy of critical Illness. It has limited his movements and his cough and rtespiratory tushar. This is why he contyinues to fail extuabtion attempts. (2) Acute hypercapnic respiratory failure Is this a current diagnosis for this admission?: Yes Plan: The patient remmains on full ventialtor support. He looks reasoanbly ok. I thnk he m,ight do ok for several hors or even a few days but than more thasn likely he would fail. (3) COVID-19 Is this a current diagnosis for this admission?: Yes Plan: Resolved (4) Diabetes type 2, uncontrolled Qualifiers: Glycemic state: with hyperglycemia Qualified Code(s): E11.65 - Type 2 diabetes mellitus with hyperglycemia Is this a current diagnosis for this admission?: Yes Plan: Continue Lantus plus sliding scale insulin. Change Nepro to Glucerna. Start at 30 mL/h (goal rate: 40 mL/h). Accu-Cheks every 6 hours. Critical Time Critical Time (minutes): 35 Level of Care: ICU -: 1. The care of a critical patient is a dynamic process. This note is a territory sales representative synopsis but static in nature. The timeframe for treatments given in order is not necessarily the actual time these treatments may have been done. 2. This patient requires critical care secondary to ongoing requirements for therapy not offered or safe outside the critical care environment. Transfer to a lower level of care will result in altered life or limb morbidity and mortality. 3. Multidisciplinary rounds completed. 4. ABCDE bundle addressed.
[2020-03-12] MEDS: INSULIN REG, HUMAN 100 UNIT/ML 3 ML VIAL (PYX) SUBCUT SCH ×4 (01:28→18:25)
[2020-03-12] MEDS: OXYCODONE HCL IR 5 MG TABLET PO PRN ×2 (01:29→18:28)
[2020-03-12] MEDS: ALBUTEROL SULFATE 0.083% NEB 2.5 MG/3 ML AMPUL NEB SCH ×4 (02:13→20:19)
[2020-03-12] MEDS: HEPARIN SOD (PORCINE) 5,000 UNIT/ML 1 ML VIAL SUBCUT SCH ×3 (06:00→22:19)
[2020-03-12] MEDS: METHYLPREDNISOLONE INJ 40 MG/1 ML SDV IV SCH ×2 (06:01→22:19)
[2020-03-12] MEDS: PANTOPRAZOLE SODIUM 40 MG VIAL IV SCH (10:07)
[2020-03-12] MEDS: RINGERS SOLUTION,LACTATED 1,000 ML IV PRN ×2 (10:07→18:27)
[2020-03-12] MEDS: INSULIN GLARGINE,HUM.REC.ANLOG 1,000 UNIT/10 ML VIAL SUBCUT SCH (10:09)
--- NOTE | 2020-03-12 14:56 | PDOC CRITICAL CARE PROG REPORT ---
General Date:: 03/12/20 Resuscitation Status: Full Code Medical Power of Block Machine Operator: None Events in the past 12 to 24 Hours:: Awake and complaining of pain. Reintubated. 03/11 This is the 5th time the patient has had to be reintubated for respiratory failure. The patient has severe critical illness polyneuropathy. He has developed mucous plugging on this basis multiple times. The patient has steadfastly refused trach and PEG. I told him that he would likely if he were extubated . The patient shrugged his shoulders and appears willing to accept that fate at this point. 03/12 the patient remains on the ventilator. I disucussed the situation with him and he was fully alert and responsive. he appears willing to undergo tracheostomy at this time. i rhianna call the consult in. He remains hemodynamically stable. CXR as of 03/11 was roughtly unchanged. I have requested a new sputum C and S. His blood sugars are elevated. i lowered the dose of solumedrol and boosted up his lantus dose. Reason for ICU Addmission:: Acute hypercapnic respiratory, self extubated last night Physical Exam Vital Signs: Temp Pulse Resp BP Pulse Ox 98.2 F 120 H 25 H 136/91 H 91 L 03/12/20 12:00 03/12/20 14:00 03/12/20 14:00 03/12/20 12:10 03/12/20 14:00 Intake & Output 03/11/20 03/12/20 03/13/20 06:59 06:59 06:59 Intake Total 2290 3480 Output Total 1585 1435 300 Balance 705 2045 -300 Weight 60.7 kg 63 kg Weight/Height Weight 63 kg Height 5 ft 7 in General appearance: PRESENT: no acute distress Head exam: PRESENT: atraumatic, normocephalic Eye exam: PRESENT: conjunctiva pink Ear exam: PRESENT: normal external ear exam. ABSENT: bleeding Neck exam: PRESENT: full ROM. ABSENT: JVD Respiratory exam: PRESENT: crackles, tachypnea. ABSENT: accessory muscle use Cardiovascular exam: PRESENT: +S1, +S2, tachycardia Pulses: PRESENT: normal radial pulses, +1 pedal pulses bilateral GI/Abdominal exam: PRESENT: soft. ABSENT: mass Rectal exam: PRESENT: deferred Gentrourinary exam: ABSENT: ecchymosis, erythema Extremities exam: ABSENT: calf tenderness Neurological exam: PRESENT: alert, awake - Able to signal his needs and he can write brief notes to us. Laboratory/Radiographs Laboratory Results: 03/11/20 04:33 03/11/20 04:33 01/24/20 01/24/20 01/24/20 00:03 00:03 04:20 Creatine Kinase 80 CK-MB (CK-2) 0.63 Troponin I 0.132 0.133 NT-Pro-B Natriuret Pep 31071 H 01/24/20 01/24/20 01/24/20 10:43 17:19 23:06 Creatine Kinase CK-MB (CK-2) Troponin I 0.114 0.079 0.075 NT-Pro-B Natriuret Pep 06300 H 01/30/20 01/31/20 02/01/20 03:45 05:39 06:14 Creatine Kinase CK-MB (CK-2) Troponin I NT-Pro-B Natriuret Pep 84341 H 97496 H 03012 H 02/02/20 02/27/20 02/27/20 04:24 08:12 08:12 Creatine Kinase 33 L CK-MB (CK-2) 2.16 Troponin I 0.013 NT-Pro-B Natriuret Pep 83553 H 02/27/20 02/28/20 02/29/20 08:12 05:44 05:35 Creatine Kinase CK-MB (CK-2) Troponin I NT-Pro-B Natriuret Pep 49752 H 10858 H 97097 H 03/02/20 03/03/20 03/11/20 05:44 05:00 04:33 Creatine Kinase CK-MB (CK-2) Troponin I NT-Pro-B Natriuret Pep 88481 H 14934 H 20169 H Impressions: KUB X-Ray 02/23/20 17:08 IMPRESSION: NG tube placement. Chest X-Ray 03/11/20 05:00 IMPRESSION: 1. Patchy bilateral airspace disease greatest within the right upper and left lower lobes, mildly worsened. 2. Endotracheal tube tip overlies midthoracic trachea. Enteric tube tip overlies distal stomach. Assessment and Plan - Diagnosis (1) Critical illness polyneuropathy Is this a current diagnosis for this admission?: Yes Plan: The patient has a significant polyneuropathy of critical Illness. It has limited his movements and his cough and rtespiratory tushar. This is why he contyinues to fail extuabtion attempts. (2) Acute hypercapnic respiratory failure Is this a current diagnosis for this admission?: Yes Plan: The patient remmains on full ventialtor support. He looks reasonably ok. I think he might do ok for several hors or even a few days but than more thanGiven all the previous history we have decided that we shuld no longer extubated the patient. likely he would fail. 03/12 I had a new discussion with the patient and he appears willing to consider tracheostomy at this time. I have a call into Dr. Dotson. At this point we have decided not to proceed with extubation. (3) COVID-19 Is this a current diagnosis for this admission?: Yes Plan: Last Covid 03/04 was negative., (4) Diabetes type 2, uncontrolled Qualifiers: Glycemic state: with hyperglycemia Qualified Code(s): E11.65 - Type 2 diabetes mellitus with hyperglycemia Is this a current diagnosis for this admission?: Yes Plan: Continue Lantus plus sliding scale insulin. Change Nepro to Glucerna. Start at 30 mL/h (goal rate: 40 mL/h). Accu-Cheks every 6 hours. 03/12 i have decreased Solumedrol dose and oincrreased his lantus. Critical Time Critical Time (minutes): 25 Level of Care: ICU -: 1. The care of a critical patient is a dynamic process. This note is a retention representative synopsis but static in nature. The timeframe for treatments given in order is not necessarily the actual time these treatments may have been done. 2. This patient requires critical care secondary to ongoing requirements for therapy not offered or safe outside the critical care environment. Transfer to a lower level of care will result in altered life or limb morbidity and mortality. 3. Multidisciplinary rounds completed. 4. ABCDE bundle addressed.
[2020-03-12] MEDS ORDERED: INSULIN GLARGINE,HUM.REC.ANLOG 1,000 UNIT/10 ML VIAL SUBCUT SCH (22:00)
[2020-03-13] MEDS: INSULIN REG, HUMAN 100 UNIT/ML 3 ML VIAL (PYX) SUBCUT SCH ×4 (00:11→17:59)
[2020-03-13] MEDS: ALBUTEROL SULFATE 0.083% NEB 2.5 MG/3 ML AMPUL NEB SCH ×4 (02:27→20:13)
[2020-03-13] MEDS: RINGERS SOLUTION,LACTATED 1,000 ML IV PRN ×2 (02:30→10:35)
[2020-03-13] MEDS: HEPARIN SOD (PORCINE) 5,000 UNIT/ML 1 ML VIAL SUBCUT SCH ×3 (06:33→22:12)
--- NOTE | 2020-03-13 08:17 | RADIOLOGY REPORT (SQ) ---
EXAM DESCRIPTION: CHEST SINGLE VIEW IMAGES COMPLETED DATE/TIME: 03/13/2020 8:01 am REASON FOR STUDY: hypoxia COMPARISON: 03/11/2020 NUMBER OF VIEWS: One view. TECHNIQUE: Single frontal radiographic image of the chest acquired. LIMITATIONS: None. FINDINGS: LUNGS AND PLEURA: Increasing bilateral airspace disease most marked in the lung bases. MEDIASTINUM AND HILAR STRUCTURES: Stable heart size and mediastinal structures. HEART AND VASCULAR STRUCTURES: Stable appearance. SUPPORT DEVICES: Appropriate location without change. BONES: No acute findings. OTHER: No other significant finding. IMPRESSION: Increasing bilateral airspace disease. Changes are greater on the right than left. Yaz nges are most prominent in the lung bases. TECHNICAL DOCUMENTATION: JOB ID: [id number] 2010 [employer]- All Rights Reserved Reading location - IP/workstation name: [email or web address]
[2020-03-13] MEDS ORDERED: VANCOMYCIN HCL 0 MG in DEXTROSE 5%-WATER 250 ML IV NR (08:30)
[2020-03-13 09:04] LABS: ARTERIAL BLOOD H2CO3 1.38 mmol/L (1.05-1.35); ARTERIAL BLOOD HCO3 33.5 mmol/L (20-24); ARTERIAL BLOOD O2 SATURATION 91.5 % (94-98); ARTERIAL BLOOD PH 7.48 (7.35-7.45); ARTERIAL BLOOD PO2 57.4 mmHg (80-100); ARTERIAL BLOOD TOTAL CO2 34.9 mmol/L (23-27)
[2020-03-13 09:05] LABS: ARTERIAL BLOOD FIO2 40%
[2020-03-13 09:10] LABS: HEMATOCRIT 28.4 % (37.9-51.0); HEMOGLOBIN 8.9 g/dL (13.5-17.0); MEAN CORPUSCULAR HEMOGLOBIN 27.3 pg (27.0-33.4); MEAN CORPUSCULAR HGB CONC 31.3 g/dL (32.0-36.0); MEAN CORPUSCULAR VOLUME 87 fl (80-97); PLATELET COUNT 608 10^3/uL (150-450); RED BLOOD COUNT 3.25 10^6/uL (4.35-5.55); RED CELL DISTRIBUTION WIDTH 16.3 % (11.5-14.0); WHITE BLOOD COUNT 19.1 10^3/uL (4.0-10.5)
[2020-03-13 09:36] LABS: ANION GAP 5 (5-19); BLOOD UREA NITROGEN 51 mg/dL (7-20); CALCIUM 8.8 mg/dL (8.4-10.2); CARBON DIOXIDE 34 mmol/L (22-30); CHLORIDE 107 mmol/L (98-107); GLUCOSE 138 mg/dL (75-110)
[2020-03-13 09:46] LABS: POTASSIUM 5.9 mmol/L (3.6-5.0)
[2020-03-13 09:59] LABS: ABSOLUTE LYMPHOCYTES# (MANUAL) 1.9 10^3/uL (0.5-4.7); BAND NEUTROPHILS % (MANUAL) 1 % (3-5); BASOPHILS % (MANUAL) 0 % (0-2); EOSINOPHILS % (MANUAL) 0 % (0-6); LYMPHOCYTES % (MANUAL) 10 % (13-45); MONOCYTES % (MANUAL) 5 % (3-13); MYELOCYTES % (MANUAL) 1 % (0); PROMYELOCYTES % (MANUAL) 1 % (0); SEGMENTED NEUTROPHILS % (MAN) 82 % (42-78); TOTAL CELLS COUNTED 100
[2020-03-13] MEDS ORDERED: CEFEPIME 2 GM/D5W RTU 2 GM/50 ML RTUPB IV SCH (10:00)
[2020-03-13] MEDS ORDERED: INSULIN GLARGINE,HUM.REC.ANLOG 1,000 UNIT/10 ML VIAL SUBCUT SCH (10:00)
[2020-03-13 10:01] LABS: TOXIC VACUOLATION PRESENT
[2020-03-13 10:02] LABS: ANISOCYTOSIS 1+; PLATELET CLUMPS PRESENT; PLATELET COMMENT INCREASED; PLATELET GIANT PRESENT; POLYCHROMASIA SLIGHT; TOXIC GRANULATION SLIGHT
[2020-03-13] MEDS: PANTOPRAZOLE SODIUM 40 MG VIAL IV SCH (12:06)
[2020-03-13] MEDS: METHYLPREDNISOLONE INJ 40 MG/1 ML SDV IV SCH ×2 (12:07→22:12)
[2020-03-13] MEDS ORDERED: DEXTROSE 50%-WATER 25 GM/50 ML DISP.SYRIN IV ONE ×2 (12:51→13:45)
--- NOTE | 2020-03-13 13:50 | PDOC CRITICAL CARE PROG REPORT ---
General Date:: 03/13/20 ICU Day:: 15 Ventilator Day:: 5 Hospital Day:: 42 Resuscitation Status: Full Code Medical Power of Project Design Engineer: None Events in the past 12 to 24 Hours:: Awake and complaining of pain. Reintubated. 03/11 This is the 5th time the patient has had to be reintubated for respiratory failure. The patient has severe critical illness polyneuropathy. He has developed mucous plugging on this basis multiple times. The patient has steadfastly refused trach and PEG. I told him that he would likely if he were extubated . The patient shrugged his shoulders and appears willing to accept that fate at this point. 03/12 the patient remains on the ventilator. I discussed the situation with him and he was fully alert and responsive. he appears willing to undergo tracheostomy at this time. i rhianna call the consult in. He remains hemodynamically stable. CXR as of 03/11 was roughly unchanged. I have requested a new sputum C and S. His blood sugars are elevated. i lowered the dose of solumedrol and boosted up his lantus dose. 03/13 the patient developed respiratory distress and diaphoresis earlier. His CXR looks dramatically worse with bilateral principally lower lobe infiltrates. The patient was placed OnVanco and Cefipime empirically. I spoke to Dr. Dotson (ENT) and Kamlesh pollack is scheduled for tomorrow. The patient is ok hemodynamically. I requested sputum culture. Tracheal aspirate GPCs in clusters and chains. The patient had a low blood sugar this AM. I have lower the lantus dose. Reason for ICU Addmission:: Acute hypercapnic respiratory, self extubated last night Physical Exam Vital Signs: Temp Pulse Resp BP Pulse Ox 97.3 F 105 H 19 134/89 H 95 03/13/20 11:49 03/13/20 11:49 03/13/20 11:49 03/13/20 11:49 03/13/20 12:00 Intake & Output 03/12/20 03/13/20 03/14/20 06:59 06:59 06:59 Intake Total 3480 2359 1000 Output Total 1435 2240 650 Balance 2045 119 350 Weight 63 kg 65.4 kg Weight/Height Weight 65.4 kg Height 5 ft 7 in General appearance: PRESENT: other - moderate resp. distress this AM Head exam: PRESENT: atraumatic, normocephalic Eye exam: PRESENT: conjunctiva pink Mouth exam: PRESENT: moist Neck exam: ABSENT: JVD, lymphadenopathy, tenderness Respiratory exam: PRESENT: accessory muscle use Pulses: PRESENT: normal carotid pulses GI/Abdominal exam: PRESENT: soft. ABSENT: tenderness Rectal exam: PRESENT: deferred Gentrourinary exam: ABSENT: ecchymosis Extremities exam: ABSENT: calf tenderness, clubbing Neurological exam: PRESENT: alert, awake Psychiatric exam: PRESENT: depressed Tubes/Lines: PRESENT: Endotracheal Tube, Central Line Laboratory/Radiographs Laboratory Results: 03/13/20 08:40 03/13/20 08:40 03/13/20 03/13/20 03/13/20 08:30 08:40 08:40 WBC 19.1 H RBC 3.25 L Hgb 8.9 L Hct 28.4 L MCV 87 MCH 27.3 MCHC 31.3 L RDW 16.3 H Plt Count 608 H Seg Neutrophils % Not Reportable Carbonic Acid 1.38 H HCO3/H2CO3 Ratio 24:1 ABG pH 7.48 H ABG pCO2 46.0 H ABG pO2 57.4 L ABG HCO3 33.5 H ABG O2 Saturation 91.5 L ABG Base Excess 9.0 FiO2 40% Sodium 146.2 H Potassium 5.9 H Chloride 107 Carbon Dioxide 34 H Anion Gap 5 BUN 51 H Creatinine 0.75 Est GFR ( Amer) > 60 Glucose 138 H Calcium 8.8 01/24/20 01/24/20 01/24/20 00:03 00:03 04:20 Creatine Kinase 80 CK-MB (CK-2) 0.63 Troponin I 0.132 0.133 NT-Pro-B Natriuret Pep 00384 H 01/24/20 01/24/20 01/24/20 10:43 17:19 23:06 Creatine Kinase CK-MB (CK-2) Troponin I 0.114 0.079 0.075 NT-Pro-B Natriuret Pep 79649 H 01/30/20 01/31/20 02/01/20 03:45 05:39 06:14 Creatine Kinase CK-MB (CK-2) Troponin I NT-Pro-B Natriuret Pep 30475 H 76679 H 34731 H 02/02/20 02/27/20 02/27/20 04:24 08:12 08:12 Creatine Kinase 33 L CK-MB (CK-2) 2.16 Troponin I 0.013 NT-Pro-B Natriuret Pep 83564 H 02/27/20 02/28/20 02/29/20 08:12 05:44 05:35 Creatine Kinase CK-MB (CK-2) Troponin I NT-Pro-B Natriuret Pep 47385 H 26486 H 95412 H 03/02/20 03/03/20 03/11/20 05:44 05:00 04:33 Creatine Kinase CK-MB (CK-2) Troponin I NT-Pro-B Natriuret Pep 09555 H 57307 H 31568 H 03/13/20 08:40 Creatine Kinase CK-MB (CK-2) Troponin I NT-Pro-B Natriuret Pep 39456 H Impressions: KUB X-Ray 02/23/20 17:08 IMPRESSION: NG tube placement. Chest X-Ray 03/13/20 00:00 IMPRESSION: Increasing bilateral airspace disease. Changes are greater on the right than left. Changes are most prominent in the lung bases. Assessment and Plan - Diagnosis (1) Critical illness polyneuropathy Is this a current diagnosis for this admission?: Yes Plan: The patient has a significant polyneuropathy of critical Illness. It has limited his movements and his cough and rtespiratory tushar. This is why he contyinues to fail extuabtion attempts. (2) Acute hypercapnic respiratory failure Is this a current diagnosis for this admission?: Yes Plan: The patient remmains on full ventialtor support. He looks reasonably ok. I think he might do ok for several hors or even a few days but than more thanGi aimee all the previous history we have decided that we shuld no longer extubated the patient. likely he would fail. 03/12 I had a new discussion with the patient and he appears willing to consider tracheostomy at this time. I have a call into Dr. Dotson. At this point we have decided not to proceed with extubation. 03/13 Unc;ear if thepatiet can ever be weaned from the ventialtor. He will get trached tomorrow hopefully. (3) COVID-19 Is this a current diagnosis for this admission?: No Plan: Last Covid 03/04 was negative., (4) Diabetes type 2, uncontrolled Qualifiers: Glycemic state: with hyperglycemia Qualified Code(s): E11.65 - Type 2 diabetes mellitus with hyperglycemia Is this a current diagnosis for this admission?: Yes Plan: Continue Lantus plus sliding scale insulin. Change Nepro to Glucerna. Start at 30 mL/h (goal rate: 40 mL/h). Accu-Cheks every 6 hours. 03/12 i have decreased Solumedrol dose and oincrreased his lantus. 03/13 I decreased steroids yesterday. Hois blood suagar was a little low this AM so I scaled back his Lantus dose. Critical Time Critical Time (minutes): 40 Level of Care: ICU -: 1. The care of a critical patient is a dynamic process. This note is a underwriting service representative synopsis but static in nature. The timeframe for treatments given in order is not necessarily the actual time these treatments may have been done. 2. This patient requires critical care secondary to ongoing requirements for therapy not offered or safe outside the critical care environment. Transfer to a lower level of care will result in altered life or limb morbidity and mortality. 3. Multidisciplinary rounds completed. 4. ABCDE bundle addressed.
[2020-03-13] MEDS: VANCOMYCIN HCL 1,250 MG in DEXTROSE 5%-WATER 250 ML IV SCH (15:03)
[2020-03-13] MEDS: CEFEPIME HCL 2 GM in DEXTROSE 5%-WATER 50 ML IV SCH ×2 (15:03→22:12)
--- NOTE | 2020-03-13 19:22 | PDOC CONSULTATION ---
Consultation Consult Date: 03/13/20 Attending physician:: DUSTIN GALEANA Provider Consulted: ALETHA RODRIGUEZ Consult reason:: Failure to extubate with ICU analytical statistician request for tracheostomy which the patient agrees with and desires to proceed with. History of Present Illness Admission Date/PCP: 01/24/20 08:20 GOLD ELENA History of Present Illness: FREDDIE LAZO JR is a 60 year old white male who is admitted to the [facility] ICU setting and has been a failure to extubate. There has been extensive discussion with the patient by the ICU analytical statistician regarding tracheostomy which the patient now desires to proceed with. The patient is with 40+ days of hospitalization and has been on and off the ventilator with a failure to extubate. The patient was formally COVID-19 positive. The patient does not have any family or friends that he relates or that can be contacted. Past Medical History Cardiac Medical History: Reports: Congestive Heart Failure Denies: Coronary Artery Disease, Hyperlipidema, Hypertension Pulmonary Medical History: Reports: Other - Intubated in the ICU with failure to extubate Denies: Asthma, Chronic Obstructive Pulmonary Disease (COPD), Respiratory Failure EENT Medical History: Reports: Other - The patient is intubated Neurological Medical History: Denies: Seizures Endocrine Medical History: Reports: Diabetes Mellitus Type 2 Renal/ Medical History: Reports: Chronic Kidney Disease, End Stage Renal Disease - Recently diagnosed with stage IV CKD Malignancy Medical History: Reports: None GI Medical History: Denies: Cirrhosis, Hepatitis Musculoskeltal Medical History: Reports: Arthritis Denies: Gout Skin Medical History: Denies: Eczema, Psoriasis Psychiatric Medical History: Reports: Depression Hematology: Reports: Anemia - Recently diagnosed Denies: Bleeding Tendencies Past Surgical History Past Surgical History: Reports: Orthopedic Surgery - Multiple surgeries, Other - Multiple orthopedic surgeries Social History Information Source: Patient, [facility] Records - and extensive information from the [facility] ICU analytical statistician Smoking Status: Unknown if Ever Smoked Electronic Cigarette use?: No Frequency of Alcohol Use: None Hx Recreational Drug Use: No Drugs: None Hx Prescription Drug Abuse: No - Advance Directive Resuscitation Status: Full Code Family History Family History: Reviewed & Not Pertinent, DM Parental Family History Reviewed: No - N/A Children Family History Reviewed: NA Sibling(s) Family History Reviewed.: NA Medication/Allergy Home Medications: Meloxicam [Mobic 7.5 mg Tablet] 7.5 mg PO Q12HP PRN 01/06/20 Oxycodone HCl [Oxy-Ir 5 mg Tablet] 15 mg PO Q6 01/06/20 Aspirin [Aspirin 81 mg Chewable Tablet] 81 mg PO QHS #0 tab.chew 01/19/20 Atorvastatin Calcium [Lipitor 20 mg Tablet] 20 mg PO QHS #30 tablet 01/19/20 Cefpodoxime Proxetil [Vantin 200 mg Tablet] 200 mg PO Q12 #12 tablet 01/19/20 Gabapentin [Neurontin 100 mg Capsule] 200 mg PO Q8 #180 capsule 01/19/20 Insulin Glargine,Hum.rec.anlog [Lantus Insulin 100 Unit/1 ml 10 ml] 10 unit SUBCUT DAILY #1 vial 01/19/20 Metoprolol Tartrate [Lopressor 25 mg Tablet] 12.5 mg PO Q12 #15 tablet 01/19/20 Meclizine HCl [Antivert 12.5 mg Tablet] 12.5 mg PO Q4HP PRN 01/24/20 Ondansetron [Zofran Odt 4 mg Tablet] 4 mg PO Q4HP PRN 01/24/20 Allergies/Adverse Reactions: iodine Allergy (Verified 01/23/20 23:19) Penicillins Allergy (Verified 01/23/20 23:19) shellfish derived Allergy (Verified 01/23/20 23:19) Sulfa (Sulfonamide Antibiotics) Allergy (Verified 01/23/20 23:19) Review of Systems All systems: reviewed and no additional remarkable complaints except as stated Physical Exam Vital Signs: Temp Pulse Resp BP Pulse Ox 97.5 F 109 H 20 140/94 H 95 03/13/20 16:00 03/13/20 18:00 03/13/20 18:00 03/13/20 18:00 03/13/20 18:00 Intake & Output 03/12/20 03/13/20 03/14/20 06:59 06:59 06:59 Intake Total 3480 2359 1300 Output Total 1435 2240 1200 Balance 2045 119 100 Weight 63 kg 65.4 kg General appearance: PRESENT: no acute distress, cooperative, other - The patient is currently intubated in the ICU setting, but is able to blink his eyes, interact with conversation, and write, but with some difficulty on a note pad to communicate. Head exam: PRESENT: atraumatic, normocephalic, other - And a nasogastric tube is present in the nose and taped in place Eye exam: PRESENT: EOMI Ear exam: PRESENT: normal external ear exam Mouth exam: PRESENT: moist - Endotracheal tube in place with head/face lawrence to stabilize the tube Neck exam: PRESENT: other - The neck is thin and supple with trachea appearing midline Respiratory exam: PRESENT: symmetrical Extremities exam: PRESENT: other - The patient is in four-point restraints Musculoskeletal exam: PRESENT: other - BILL Neurological exam: PRESENT: alert, oriented to person, oriented to place, oriented to situation, CN II-XII grossly intact Skin exam: PRESENT: warm Results Laboratory Results: 03/13/20 08:40 03/13/20 08:40 03/13/20 03/13/20 03/13/20 08:30 08:40 08:40 WBC 19.1 H RBC 3.25 L Hgb 8.9 L Hct 28.4 L MCV 87 MCH 27.3 MCHC 31.3 L RDW 16.3 H Plt Count 608 H Seg Neutrophils % Not Reportable Carbonic Acid 1.38 H HCO3/H2CO3 Ratio 24:1 ABG pH 7.48 H ABG pCO2 46.0 H ABG pO2 57.4 L ABG HCO3 33.5 H ABG O2 Saturation 91.5 L ABG Base Excess 9.0 FiO2 40% Sodium 146.2 H Potassium 5.9 H Chloride 107 Carbon Dioxide 34 H Anion Gap 5 BUN 51 H Creatinine 0.75 Est GFR ( Amer) > 60 Glucose 138 H Calcium 8.8 01/24/20 01/24/20 01/24/20 00:03 00:03 04:20 Creatine Kinase 80 CK-MB (CK-2) 0.63 Troponin I 0.132 0.133 NT-Pro-B Natriuret Pep 38287 H 01/24/20 01/24/20 01/24/20 10:43 17:19 23:06 Creatine Kinase CK-MB (CK-2) Troponin I 0.114 0.079 0.075 NT-Pro-B Natriuret Pep 80800 H 01/30/20 01/31/20 02/01/20 03:45 05:39 06:14 Creatine Kinase CK-MB (CK-2) Troponin I NT-Pro-B Natriuret Pep 84458 H 67398 H 80725 H 02/02/20 02/27/20 02/27/20 04:24 08:12 08:12 Creatine Kinase 33 L CK-MB (CK-2) 2.16 Troponin I 0.013 NT-Pro-B Natriuret Pep 95778 H 02/27/20 02/28/20 02/29/20 08:12 05:44 05:35 Creatine Kinase CK-MB (CK-2) Troponin I NT-Pro-B Natriuret Pep 51127 H 83004 H 40450 H 03/02/20 03/03/20 03/11/20 05:44 05:00 04:33 Creatine Kinase CK-MB (CK-2) Troponin I NT-Pro-B Natriuret Pep 10478 H 92663 H 77957 H 03/13/20 08:40 Creatine Kinase CK-MB (CK-2) Troponin I NT-Pro-B Natriuret Pep 25346 H Impressions: KUB X-Ray 02/23/20 17:08 IMPRESSION: NG tube placement. Chest X-Ray 03/13/20 00:00 IMPRESSION: Increasing bilateral airspace disease. Changes are greater on the right than left. Changes are most prominent in the lung bases. Assessment & Plan - Diagnosis (1) Dependent on ventilator Is this a current diagnosis for this admission?: Yes (2) Acute respiratory failure with hypoxemia Is this a current diagnosis for this admission?: Yes (3) Hypoxia Is this a current diagnosis for this admission?: Yes (4) COVID-19 Is this a current diagnosis for this admission?: Yes - Time Time Spent: 30 to 50 Minutes Medications reviewed and adjusted accordingly: No - Managed by ICU analytical statistician Anticipated discharge: Other - To be determined by ICU analytical statistician Anticipated DC Timeframe: Other - To be determined by ICU analytical statistician - Inpatient Certification Post Hospital Care: Other - To be determined by ICU analytical statistician - Plan Summary Plan Summary: Extensive discussion with the [facility] ICU analytical statistician who have extensively discussed the role of tracheostomy with the patient in the setting of ventilator dependenc e with repeated failures to extubate and the patient now desires to proceed with a tracheostomy. The patient again made it clear that he desired to proceed with the tracheostomy procedure by repeatedly shaking his head yes in response to this question. The patient again stated that there were no friends or family to be contacted. The the tracheostomy and additional procedures as indicated were discussed in detail with the patient/parent(s)/legal guardian(s). Also discussed in detail were the risks, complications, benefits and alternatives of surgery. The risk and complications of surgery/the procedure(s) include and are not limited to bleeding, scarring, infection, injury to blood vessels and nerves, temporary or permanent loss of function, injury to the vocal cords, injury to the trachea and/or esophagus, temporary or permanent disability, cosmetic/tissue deformities, ongoing tracheostomy management, and need of additional surgery/procedures/care, and rarely . The patient voiced an understanding and agreed to proceed with the described surgical plan.
[2020-03-14] MEDS: ONDANSETRON HCL INJ/PF 4 MG/2 ML SDV IV PRN (00:46)
[2020-03-14] MEDS: OXYCODONE HCL IR 5 MG TABLET PO PRN ×3 (00:46→21:01)
[2020-03-14] MEDS: VANCOMYCIN HCL 1,250 MG in DEXTROSE 5%-WATER 250 ML IV SCH ×2 (01:06→14:58)
[2020-03-14] MEDS: INSULIN REG, HUMAN 100 UNIT/ML 3 ML VIAL (PYX) SUBCUT SCH ×4 (01:15→17:42)
[2020-03-14] MEDS: ALBUTEROL SULFATE 0.083% NEB 2.5 MG/3 ML AMPUL NEB SCH ×4 (02:12→19:50)
[2020-03-14 04:39] LABS: HEMATOCRIT 26.9 % (37.9-51.0); HEMOGLOBIN 8.5 g/dL (13.5-17.0); MEAN CORPUSCULAR HEMOGLOBIN 27.5 pg (27.0-33.4); MEAN CORPUSCULAR HGB CONC 31.6 g/dL (32.0-36.0); MEAN CORPUSCULAR VOLUME 87 fl (80-97); PLATELET COUNT 529 10^3/uL (150-450); RED BLOOD COUNT 3.09 10^6/uL (4.35-5.55); RED CELL DISTRIBUTION WIDTH 16.3 % (11.5-14.0); WHITE BLOOD COUNT 19.2 10^3/uL (4.0-10.5)
[2020-03-14] MEDS ORDERED: DEXTROSE 50%-WATER 25 GM/50 ML DISP.SYRIN IV ONE ×2 (04:50→23:40)
[2020-03-14 05:38] LABS: ABSOLUTE LYMPHOCYTES# (MANUAL) 0.8 10^3/uL (0.5-4.7); ABSOLUTE MONOCYTES # (MANUAL) 1.3 10^3/uL (0.1-1.4); BAND NEUTROPHILS % (MANUAL) 1 % (3-5); BASOPHILS % (MANUAL) 0 % (0-2); EOSINOPHILS % (MANUAL) 0 % (0-6); LYMPHOCYTES % (MANUAL) 4 % (13-45); METAMYELOCYTES % (MANUAL) 1 % (0-1); MONOCYTES % (MANUAL) 7 % (3-13); SEGMENTED NEUTROPHILS % (MAN) 87 % (42-78); TOTAL CELLS COUNTED 100
[2020-03-14 05:40] LABS: ANISOCYTOSIS 1+; HYPOCHROMASIA SLIGHT; PLATELET COMMENT INCREASED; SCHISTOCYTES SLIGHT; TEAR DROP CELLS SLIGHT; TOXIC GRANULATION SLIGHT
[2020-03-14 05:59] LABS: ANION GAP 5 (5-19); BLOOD UREA NITROGEN 42 mg/dL (7-20); CALCIUM 8.4 mg/dL (8.4-10.2); CARBON DIOXIDE 31 mmol/L (22-30); CHLORIDE 106 mmol/L (98-107); GLUCOSE 211 mg/dL (75-110); POTASSIUM 5.7 mmol/L (3.6-5.0)
[2020-03-14] MEDS ORDERED: FENTANYL CITRATE INJ/PF 250 MCG/5 ML AMPULE ONE (07:14)
[2020-03-14] MEDS ORDERED: MIDAZOLAM 2 MG/2 ML INJ ONE (07:14)
[2020-03-14] MEDS ORDERED: PROPOFOL INJ 200 MG/20 ML VIAL IV ONE (07:14)
[2020-03-14] MEDS ORDERED: LIDOCAINE 2% INJ-PF (20 MG/ML) 10 ML AMPUL ONE (07:14)
[2020-03-14] MEDS ORDERED: FENTANYL CITRATE INJ/PF 100 MCG/2 ML AMPUL ONE (07:14)
[2020-03-14] MEDS ORDERED: BUPIVACAINE HCL 0.5%/EPI 1:200000 INJ 1.8 ML CARTRIDGE ONE (07:22)
[2020-03-14] MEDS: RINGERS SOLUTION,LACTATED 1,000 ML IV PRN ×2 (07:30→14:57)
[2020-03-14 08:26] LABS: ARTERIAL BLOOD BASE EXCESS 6.4 mmol/L; ARTERIAL BLOOD H2CO3 1.35 mmol/L (1.05-1.35); ARTERIAL BLOOD HCO3 30.9 mmol/L (20-24); ARTERIAL BLOOD O2 SATURATION 94.1 % (94-98); ARTERIAL BLOOD PCO2 44.8 mmHg (35-45); ARTERIAL BLOOD PH 7.46 (7.35-7.45); ARTERIAL BLOOD PO2 66.9 mmHg (80-100); ARTERIAL BLOOD TOTAL CO2 32.3 mmol/L (23-27)
[2020-03-14 08:30] LABS: ARTERIAL BLOOD FIO2 40%
--- NOTE | 2020-03-14 08:40 | RADIOLOGY REPORT (SQ) ---
EXAM DESCRIPTION: CHEST SINGLE VIEW IMAGES COMPLETED DATE/TIME: 03/14/2020 6:31 am REASON FOR STUDY: pneumonia COMPARISON: Previous. NUMBER OF VIEWS: One view. TECHNIQUE: Single frontal radiographic image of the chest acquired. LIMITATIONS: None. FINDINGS: LUNGS AND PLEURA: Extensive bilateral airspace disease, right greater than left without si gnificant change. No pneumothorax. MEDIASTINUM AND HEART: Stable heart size and mediastinal structures. SUPPORT DEVICES: Appropriate location without change. BONY STRUCTURES: No acute findings. HARDWARE: None. OTHER: No other significant finding. IMPRESSION: No significant change. No pneumothorax. Reading location - IP/workstation name: [email or web address]
[2020-03-14] MEDS ORDERED: HYDROMORPHONE HCL INJ/PF 2 MG/ML AMPULE IV PRN (11:06)
[2020-03-14 11:15] LABS: PATH REVIEW PATHOLOGIST REVIEWED
[2020-03-14] MEDS ORDERED: SODIUM POLYSTYRENE SULFONATE 15 GM/60 ML PO ONE (11:28)
--- NOTE | 2020-03-14 11:40 | PDOC CRITICAL CARE PROG REPORT ---
General Date:: 03/14/20 ICU Day:: 16 Ventilator Day:: 6 Hospital Day:: 43 Resuscitation Status: Full Code Medical Power of Brisket Puller: None Events in the past 12 to 24 Hours:: Awake and complaining of pain. Reintubated. 03/11 This is the 5th time the patient has had to be reintubated for respiratory failure. The patient has severe critical illness polyneuropathy. He has developed mucous plugging on this basis multiple times. The patient has steadfastly refused trach and PEG. I told him that he would likely if he were extubated . The patient shrugged his shoulders and appears willing to accept that fate at this point. 03/12 the patient remains on the ventilator. I discussed the situation with him and he was fully alert and responsive. he appears willing to undergo tracheostomy at this time. i rhianna call the consult in. He remains hemodynamically stable. CXR as of 03/11 was roughly unchanged. I have requested a new sputum C and S. His blood sugars are elevated. i lowered the dose of solumedrol and boosted up his lantus dose. 03/13 the patient developed respiratory distress and diaphoresis earlier. His CXR looks dramatically worse with bilateral principally lower lobe infiltrates. The patient was placed OnVanco and Cefipime empirically. I spoke to Dr. Dotson (ENT) and Kamlesh pollack is scheduled for tomorrow. The patient is ok hemodynamically. I requested sputum culture. Tracheal aspirate GPCs in clusters and chains. The patient had a low blood sugar this AM. I have lower the lantus dose. 03/14 The patient haad a bit of a tumultuous course yesterday. he appears to have a n ew pneumonia bilaterally. He just went to the OR for trachthis AM. It appeared to go uneventfully. He is back in the ICU and appears alert. He has been placed empirically on a regimen of Cefpime (PCN allergy) and vanco pending cultures. He will need a feeding tube and I will consult one of the general surgeons. He has had a persistent hyperkalemai. Unclear why this? He has not been getting additional potassium and his kidney fn. is normal.The possibilities include type 4 RTA, hypoadrenalism. We will try to work it up further. Reason for ICU Addmission:: Acute hypercapnic respiratory, self extubated last night Physical Exam Vital Signs: Temp Pulse Resp BP Pulse Ox 98.1 F 103 H 20 152/94 H 96 03/14/20 08:00 03/14/20 08:28 03/14/20 08:28 03/14/20 08:00 03/14/20 08:28 Intake & Output 03/13/20 03/14/20 03/15/20 06:59 06:59 06:59 Intake Total 2359 2470 Output Total 2240 2185 Balance 119 285 Weight 65.4 kg 65.4 kg Weight/Height Weight 65.4 kg Height 5 ft 7 in General appearance: PRESENT: mild distress, thin Head exam: PRESENT: atraumatic, normocephalic Eye exam: PRESENT: EOMI, PERRLA Ear exam: PRESENT: normal external ear exam Mouth exam: PRESENT: moist Neck exam: ABSENT: meningismus, tenderness Respiratory exam: PRESENT: unlabored. ABSENT: accessory muscle use Cardiovascular exam: PRESENT: RRR, tachycardia Pulses: PRESENT: normal carotid pulses, normal radial pulses GI/Abdominal exam: PRESENT: soft. ABSENT: tenderness Rectal exam: PRESENT: deferred. ABSENT: black stool, heme (-) stool Gentrourinary exam: PRESENT: scrotal swelling. ABSENT: ecchymosis, lesions Extremities exam: ABSENT: calf tenderness, clubbing Musculoskeletal exam: PRESENT: full ROM Neurological exam: PRESENT: alert, oriented to person, oriented to place, oriented to time, oriented to situation Skin exam: PRESENT: other - His coloration is poor. he is cachectic and appears chronically ill.. ABSENT: abrasion, cyanosis Laboratory/Radiographs Laboratory Results: 03/14/20 03:58 03/14/20 05:25 03/14/20 03/14/20 03/14/20 03:58 03:58 03:58 WBC 19.2 H RBC 3.09 L Hgb 8.5 L Hct 26.9 L MCV 87 MCH 27.5 MCHC 31.6 L RDW 16.3 H Plt Count 529 H Seg Neutrophils % Not Reportable Carbonic Acid HCO3/H2CO3 Ratio ABG pH ABG pCO2 ABG pO2 ABG HCO3 ABG O2 Saturation ABG Base Excess FiO2 Sodium Cancelled Potassium Cancelled Chloride Cancelled Carbon Dioxide Cancelled Anion Gap Cancelled BUN Cancelled Creatinine Cancelled Est GFR ( Amer) Cancelled Est GFR (Non-Af Amer) Cancelled Glucose Cancelled Calcium Cancelled TSH Cancelled 03/14/20 03/14/20 03/14/20 05:25 05:25 08:00 WBC RBC Hgb Hct MCV MCH MCHC RDW Plt Count Seg Neutrophils % Carbonic Acid 1.35 HCO3/H2CO3 Ratio 22:1 ABG pH 7.46 H ABG pCO2 44.8 ABG pO2 66.9 L ABG HCO3 30.9 H ABG O2 Saturation 94.1 ABG Base Excess 6.4 FiO2 40% Sodium 142.4 Potassium 5.7 H Chloride 106 Carbon Dioxide 31 H Anion Gap 5 BUN 42 H Creatinine 0.68 Est GFR ( Amer) > 60 Est GFR (Non-Af Amer) Glucose 211 H Calcium 8.4 TSH 1.70 01/24/20 01/24/20 01/24/20 00:03 00:03 04:20 Creatine Kinase 80 CK-MB (CK-2) 0.63 Troponin I 0.132 0.133 NT-Pro-B Natriuret Pep 74610 H 01/24/20 01/24/20 01/24/20 10:43 17:19 23:06 Creatine Kinase CK-MB (CK-2) Troponin I 0.114 0.079 0.075 NT-Pro-B Natriuret Pep 36354 H 01/30/20 01/31/20 02/01/20 03:45 05:39 06:14 Creatine Kinase CK-MB (CK-2) Troponin I NT-Pro-B Natriuret Pep 56676 H 51247 H 72320 H 02/02/20 02/27/20 02/27/20 04:24 08:12 08:12 Creatine Kinase 33 L CK-MB (CK-2) 2.16 Troponin I 0.013 NT-Pro-B Natriuret Pep 17885 H 02/27/20 02/28/20 02/29/20 08:12 05:44 05:35 Creatine Kinase CK-MB (CK-2) Troponin I NT-Pro-B Natriuret Pep 68304 H 11826 H 14621 H 03/02/20 03/03/20 03/11/20 05:44 05:00 04:33 Creatine Kinase CK-MB (CK-2) Troponin I NT-Pro-B Natriuret Pep 83294 H 73566 H 40296 H 08/26/20 08:40 Creatine Kinase CK-MB (CK-2) Troponin I NT-Pro-B Natriuret Pep 93288 H Impressions: KUB X-Ray 02/23/20 17:08 IMPRESSION: NG tube placement. Chest X-Ray 03/14/20 06:00 IMPRESSION: No significant change. No pneumothorax. Assessment and Plan - Diagnosis (1) Critical illness polyneuropathy Is this a current diagnosis for this admission?: Yes Plan: The patient has a significant polyneuropathy of critical Illness. It has limited his movements and his cough and rtespiratory tushar. This is why he contyinues to fail extuabtion attempts. (2) Acute hypercapnic respiratory failure Is this a current diagnosis for this admission?: Yes Plan: The patient remmains on full ventialtor support. He looks reasonably ok. I think he might do ok for several hors or even a few days but than more thanGiven all the previous history we have decided that we shuld no longer extubated the patient. likely he would fail. 03/12 I had a new discussion with the patient and he appears willing to consider tracheostomy at this time. I have a call into Dr. Dotson. At this point we have decided not to proceed with extubation. 03/13 Unc;ear if thepatiet can ever be weaned from the ventialtor. He will get trached tomorrow hopefully. 03/14 S/P tracheostomy. Now that he has a new pneiumonia we won't be able to wean easily. (3) COVID-19 Is this a current diagnosis for this admission?: Yes Plan: Last Covid 03/04 was negative., (4) Diabetes type 2, uncontrolled Qualifiers: Glycemic state: with hyperglycemia Qualified Code(s): E11.65 - Type 2 diabetes mellitus with hyperglycemia Is this a current diagnosis for this admission?: Yes Plan: Continue Lantus plus sliding scale insulin. Change Nepro to Glucerna. Start at 30 mL/h (goal rate: 40 mL/h). Accu-Cheks every 6 hours. 03/12 i have decreased Solumedrol dose and oincrreased his lantus. 03/13 I decreased steroids yesterday. Hois blood suagar was a little low this AM so I scaled back his Lantus dose. (6) Pneumonia Qualifiers: Pneumonia type: due to unspecified organism Laterality: right Lung location: unspecified part of lung Qualified Code(s): J18.9 - Pneumonia, unspecified organism Is this a current diagnosis for this admission?: Yes Plan: The patient developed increased secretions a, respiratory distress and diaphoresis yesterday. His cxr showed neww bialterla diffuse s infiltrates R>>L. The opatient wasa started on wempiric abx therpay. Could have been an aspiration event a as one of the bnurse though that his lower resp tract secrretions resembled tube feeds. Critical Time Critical Time (minutes): 40 Level of Care: ICU -: 1. The care of a critical patient is a dynamic process. This note is a district sales representative synopsis but static in nature. The timeframe for treatments given in order is not necessarily the actual time these treatments may have been done. 2. This patient requires critical care secondary to ongoing requirements for therapy not offered or safe outside the critical care environment. Transfer to a lower level of care will result in altered life or limb morbidity and mortality. 3. Multidisciplinary rounds completed. 4. ABCDE bundle addressed.
[2020-03-14] MEDS: PANTOPRAZOLE SODIUM 40 MG VIAL IV SCH (12:05)
[2020-03-14] MEDS: METHYLPREDNISOLONE INJ 40 MG/1 ML SDV IV SCH ×2 (12:07→21:02)
[2020-03-14] MEDS: INSULIN GLARGINE,HUM.REC.ANLOG 1,000 UNIT/10 ML VIAL SUBCUT SCH (12:08)
[2020-03-14] MEDS: CEFEPIME HCL 2 GM in DEXTROSE 5%-WATER 50 ML IV SCH ×2 (12:23→21:02)
[2020-03-14] MEDS ORDERED: PHENYLEPHRINE HCL INJ/PF 10 MG/1 ML SDV ONE (12:36)
[2020-03-14] MEDS: HEPARIN SOD (PORCINE) 5,000 UNIT/ML 1 ML VIAL SUBCUT SCH ×3 (14:28→21:03)
[2020-03-14] MEDS: HYDROMORPHONE HCL INJ/PF 2 MG/ML AMPULE IV PRN (18:49)
--- NOTE | 2020-03-14 18:59 | RADIOLOGY REPORT (SQ) ---
EXAM DESCRIPTION: CHEST SINGLE VIEW IMAGES COMPLETED DATE/TIME: 03/14/2020 6:14 pm REASON FOR STUDY: POST TRACHEOSTOMY COMPARISON: 03/14/2020 EXAM PARAMETERS: NUMBER OF VIEWS: One view. TECHNIQUE: Single frontal radiographic view of the chest acquired. RADIATION DOSE: NA LIMITATIONS: None. FINDINGS: LUNGS AND PLEURA: Somewhat improved appearance of extensive multifocal airspace opacities. No pneumothorax. MEDIASTINUM AND HILAR STRUCTURES: Stable. HEART AND VASCULAR STRUCTURES: Stable. BONES: No acute findings. HARDWARE: Interval placement of a tracheostomy sheath which projects in the midline over the tracheal air shadow. Enteric tube is seen along the expected course of the esophagus, terminating subdiaphra gmatically out of the imaged field of view. ACDF hardware. OTHER: No other significant finding. IMPRESSION: 1. Somewhat improved aeration of the lungs with persistent extensive multifocal airspac e opacities. 2. Interval extubation with placement of a tracheostomy sheath without evidence of gross complicatio n. Enteric tube terminates subdiaphragmatically out of the imaged field of view. TECHNICAL DOCUMENTATION: JOB ID: [id number] 2010 [employer]- All Rights Reserved Reading location - IP/workstation name: [email or web address]
[2020-03-14] MEDS ORDERED: DEXTROSE 10%-WATER 1,000 ML IV PRN (23:43)
[2020-03-15] MEDS: INSULIN REG, HUMAN 100 UNIT/ML 3 ML VIAL (PYX) SUBCUT SCH ×4 (00:19→18:03)
[2020-03-15] MEDS ORDERED: DEXTROSE 40% GEL 15 GM TUBE X 2 PO PRN (00:30)
[2020-03-15] MEDS ORDERED: DEXTROSE 40% GEL 15 GM TUBE PO PRN (00:30)
[2020-03-15] MEDS ORDERED: DEXTROSE 50%-WATER SYRINGE 25 GM/50 ML DOSE IV PRN (00:30)
[2020-03-15] MEDS: VANCOMYCIN HCL 1,250 MG in DEXTROSE 5%-WATER 250 ML IV SCH ×2 (01:32→14:45)
[2020-03-15] MEDS: ALBUTEROL SULFATE 0.083% NEB 2.5 MG/3 ML AMPUL NEB SCH ×4 (02:04→20:33)
[2020-03-15] MEDS: OXYCODONE HCL IR 5 MG TABLET PO PRN ×3 (04:34→20:49)
[2020-03-15] MEDS: HEPARIN SOD (PORCINE) 5,000 UNIT/ML 1 ML VIAL SUBCUT SCH ×3 (05:35→21:54)
[2020-03-15] MEDS: METHYLPREDNISOLONE INJ 40 MG/1 ML SDV IV SCH (09:06)
[2020-03-15] MEDS: PANTOPRAZOLE SODIUM 40 MG VIAL IV SCH (09:07)
--- NOTE | 2020-03-15 09:08 | RADIOLOGY REPORT (SQ) ---
EXAM DESCRIPTION: CHEST SINGLE VIEW IMAGES COMPLETED DATE/TIME: 03/15/2020 6:06 am REASON FOR STUDY: pneumonia COMPARISON: AP view of the chest from 03/14/2020. EXAM PARAMETERS: NUMBER OF VIEWS: One view. TECHNIQUE: An AP view of the chest was obtained. RADIATION DOSE: NA LIMITATIONS: None. FINDINGS: LUNGS AND PLEURA: Unchanged radiographic appearance of the lungs and pleura. MEDIASTINUM AND HILAR STRUCTURES: Stable mediastinal and hilar contours. HEART AND VASCULAR STRUCTURES: Stable cardiac silhouette. BONES: No acute findings. HARDWARE: There is a tracheostomy tube in place. The tip of the enteric tube projects past the gastr oesophageal junction and outside the field of view of the radiograph. OTHER: ACDF hardware. IMPRESSION: Unchanged radiographic appearance of the chest TECHNICAL DOCUMENTATION: JOB ID: [id number] 2010 [employer]- All Rights Reserved Reading location - IP/workstation name: [email or web address]
[2020-03-15] MEDS: FUROSEMIDE INJ/PF 20 MG/2 ML SDV IV SCH (09:09)
[2020-03-15] MEDS: CEFEPIME HCL 2 GM in DEXTROSE 5%-WATER 50 ML IV SCH ×2 (09:09→21:53)
[2020-03-15] MEDS: INSULIN GLARGINE,HUM.REC.ANLOG 1,000 UNIT/10 ML VIAL SUBCUT SCH (09:09)
[2020-03-15 09:13] LABS: HEMATOCRIT 22.8 % (37.9-51.0); MEAN CORPUSCULAR HEMOGLOBIN 27.6 pg (27.0-33.4); MEAN CORPUSCULAR VOLUME 86 fl (80-97); PLATELET COUNT 551 10^3/uL (150-450); RED BLOOD COUNT 2.64 10^6/uL (4.35-5.55); RED CELL DISTRIBUTION WIDTH 16.4 % (11.5-14.0); WHITE BLOOD COUNT 18.5 10^3/uL (4.0-10.5)
[2020-03-15 09:17] LABS: BLOOD UREA NITROGEN 34 mg/dL (7-20); GLUCOSE 97 mg/dL (75-110); POTASSIUM 4.4 mmol/L (3.6-5.0)
[2020-03-15 09:23] LABS: ANION GAP 5 (5-19); CARBON DIOXIDE 33 mmol/L (22-30); CHLORIDE 102 mmol/L (98-107)
[2020-03-15 09:38] LABS: HEMOGLOBIN 7.3 g/dL (13.5-17.0)
[2020-03-15 09:39] LABS: ABSOLUTE LYMPHOCYTES# (MANUAL) 1.9 10^3/uL (0.5-4.7); ABSOLUTE MONOCYTES # (MANUAL) 0.7 10^3/uL (0.1-1.4); BASOPHILS % (MANUAL) 0 % (0-2); EOSINOPHILS % (MANUAL) 1 % (0-6); LYMPHOCYTES % (MANUAL) 10 % (13-45); MONOCYTES % (MANUAL) 4 % (3-13); SEGMENTED NEUTROPHILS % (MAN) 85 % (42-78); TOTAL CELLS COUNTED 100
[2020-03-15 09:40] LABS: ANISOCYTOSIS 1+; PLATELET COMMENT INCREASED; POLYCHROMASIA 1+
--- NOTE | 2020-03-15 15:55 | PDOC CRITICAL CARE PROG REPORT ---
General Date:: 03/15/20 ICU Day:: 17 Ventilator Day:: 7 Hospital Day:: 44 Resuscitation Status: Full Code Medical Power of Tuckpointer: None Events in the past 12 to 24 Hours:: Awake and complaining of pain. Reintubated. 03/11 This is the 5th time the patient has had to be reintubated for respiratory failure. The patient has severe critical illness polyneuropathy. He has developed mucous plugging on this basis multiple times. The patient has steadfastly refused trach and PEG. I told him that he would likely if he were extubated . The patient shrugged his shoulders and appears willing to accept that fate at this point. 03/12 the patient remains on the ventilator. I discussed the situation with him and he was fully alert and responsive. he appears willing to undergo tracheostomy at this time. i rhianna call the consult in. He remains hemodynamically stable. CXR as of 03/11 was roughly unchanged. I have requested a new sputum C and S. His blood sugars are elevated. i lowered the dose of solumedrol and boosted up his lantus dose. 03/13 the patient developed respiratory distress and diaphoresis earlier. His CXR looks dramatically worse with bilateral principally lower lobe infiltrates. The patient was placed OnVanco and Cefipime empirically. I spoke to Dr. Dotson (ENT) and Kamlesh pollack is scheduled for tomorrow. The patient is ok hemodynamically. I requested sputum culture. Tracheal aspirate GPCs in clusters and chains. The patient had a low blood sugar this AM. I have lower the lantus dose. 03/14 The patient haad a bit of a tumultuous course yesterday. he appears to have a n ew pneumonia bilaterally. He just went to the OR for trach this AM. It appeared to go uneventfully. He is back in the ICU and appears alert. He has been placed empirically on a regimen of Cefpime (PCN allergy) and vanco pending cultures. He will need a feeding tube and I will consult one of the general surgeons. He has had a persistent hyperkalemai. Unclear why this? He has not been getting additional potassium and his kidney fn. is normal.The possibilities include type 4 RTA, hypoadrenalism. We will try to work it up further. 03/15 The patient appears relatively comfortable today. He is actually doing well on SBT with PS of 10. No problems with his trach. he remains quite alert and writes us notes. The TTKG measures 4 which suggest hypoaldosteronism.Will add fludrocortisone to regimen. I am unsure why this patient is hypoadrenal but he has been chronically and severely ill. Reason for ICU Addmission:: Acute hypercapnic respiratory, self extubated last night Physical Exam Vital Signs: Temp Pulse Resp BP Pulse Ox 97.9 F 106 H 11 L 111/48 L 94 03/15/20 12:00 03/15/20 14:00 03/15/20 14:02 03/15/20 14:02 03/15/20 14:30 Intake & Output 03/14/20 03/15/20 03/16/20 06:59 06:59 06:59 Intake Total 2720 2331 350 Output Total 2185 1645 1300 Balance 535 686 -950 Weight 65.4 kg 69.6 kg 69.9 kg Weight/Height Weight 69.9 kg Height 5 ft 7 in General appearance: PRESENT: mild distress Eye exam: PRESENT: EOMI, PERRLA Ear exam: PRESENT: normal external ear exam Mouth exam: PRESENT: moist Neck exam: ABSENT: meningismus, tenderness, thyromegaly Respiratory exam: ABSENT: accessory muscle use Cardiovascular exam: PRESENT: RRR. ABSENT: irregular rhythm Pulses: PRESENT: normal carotid pulses, normal dorsalis pedis pul GI/Abdominal exam: PRESENT: soft. ABSENT: tenderness Rectal exam: ABSENT: deferred Extremities exam: ABSENT: calf tenderness, clubbing Neurological exam: PRESENT: alert, awake, oriented to place, oriented to time, oriented to situation Skin exam: PRESENT: normal color Laboratory/Radiographs Laboratory Results: 03/15/20 08:44 03/15/20 08:44 03/14/20 03/14/20 03/15/20 05:25 15:10 08:44 WBC RBC Hgb Hct MCV MCH MCHC RDW Plt Count Seg Neutrophils % Sodium 140.0 Potassium 4.4 Chloride 102 Carbon Dioxide 33 H Anion Gap 5 BUN 34 H Creatinine 0.79 Est GFR ( Amer) > 60 Glucose 97 Serum Osmolality 315 H Calcium 8.0 L Urine Osmolality 486 03/15/20 08:44 WBC 18.5 H RBC 2.64 L Hgb 7.3 L Hct 22.8 L MCV 86 MCH 27.6 MCHC 32.0 RDW 16.4 H Plt Count 551 H Seg Neutrophils % Not Reportable Sodium Potassium Chloride Carbon Dioxide Anion Gap BUN Creatinine Est GFR ( Amer) Glucose Serum Osmolality Calcium Urine Osmolality 03/12/20 18:37 Tracheal Aspirate Gram Stain - Final 03/12/20 18:37 Tracheal Aspirate Sputum Culture - Final Staphylococcus Aureus Achromobacter Xlosoxidans Normal Kathie Absent 01/24/20 01/24/20 01/24/20 00:03 00:03 04:20 Creatine Kinase 80 CK-MB (CK-2) 0.63 Troponin I 0.132 0.133 NT-Pro-B Natriuret Pep 15915 H 01/24/20 01/24/20 01/24/20 10:43 17:19 23:06 Creatine Kinase CK-MB (CK-2) Troponin I 0.114 0.079 0.075 NT-Pro-B Natriuret Pep 90658 H 01/30/20 01/31/20 02/01/20 03:45 05:39 06:14 Creatine Kinase CK-MB (CK-2) Troponin I NT-Pro-B Natriuret Pep 21942 H 19562 H 52437 H 02/02/20 02/27/20 02/27/20 04:24 08:12 08:12 Creatine Kinase 33 L CK-MB (CK-2) 2.16 Troponin I 0.013 NT-Pro-B Natriuret Pep 67620 H 02/27/20 02/28/20 02/29/20 08:12 05:44 05:35 Creatine Kinase CK-MB (CK-2) Troponin I NT-Pro-B Natriuret Pep 08575 H 26039 H 22713 H 03/02/20 03/03/20 03/11/20 05:44 05:00 04:33 Creatine Kinase CK-MB (CK-2) Troponin I NT-Pro-B Natriuret Pep 72513 H 38762 H 49489 H 03/13/20 03/15/20 08:40 08:44 Creatine Kinase CK-MB (CK-2) Troponin I NT-Pro-B Natriuret Pep 58672 H 50706 H Impressions: KUB X-Ray 02/23/20 17:08 IMPRESSION: NG tube placement. Chest X-Ray 03/15/20 08:15 IMPRESSION: Unchanged radiographic appearance of the chest Assessment and Plan - Diagnosis (1) Critical illness polyneuropathy Is this a current diagnosis for this admission?: Yes Plan: The patient has a significant polyneuropathy of critical Illness. It has limited his movements and his cough and rtespiratory tushar. This is why he contyinues to fail extuabtion attempts. (2) Acute hypercapnic respiratory failure Is this a current diagnosis for this admission?: Yes Plan: The patient remains on full ventialtor support. He looks reasonably ok. I think he might do ok for several hors or even a few days but than more thanGiven all the previous history we have decided that we shuld no longer ext ubated the patient. likely he would fail. 03/12 I had a new discussion with the patient and he appears willing to consider tracheostomy at this time. I have a call into Dr. Dotson. At this point we have decided not to proceed with extubation. 03/13 Unclear if the patient can ever be weaned from the ventialtor. He will get trached tomorrow hopefully. 03/14 S/P tracheostomy. Now that he has a new pneumonia we won't be able to wean easily. .03/15 As noted the patient has done well on CPAP today despite his horrible looking CXR. (3) COVID-19 Is this a current diagnosis for this admission?: Yes Plan: Last Covid 03/04 was negative., (4) Diabetes type 2, uncontrolled Qualifiers: Glycemic state: with hyperglycemia Qualified Code(s): E11.65 - Type 2 diabetes mellitus with hyperglycemia Is this a current diagnosis for this admission?: Yes Plan: Continue Lantus plus sliding scale insulin. Change Nepro to Glucerna. Start at 30 mL/h (goal rate: 40 mL/h). Accu-Cheks every 6 hours. 03/12 i have decreased Solumedrol dose and incrreased his lantus. 03/13 I decreased steroids yesterday. His blood sugar was a little low this AM so I scaled back his Lantus dose. blood sugars are reasonably well controlled (5) Pneumonia Qualifiers: Pneumonia type: due to unspecified organism Laterality: right Lung location: unspecified part of lung Qualified Code(s): J18.9 - Pneumonia, uns pecified organism Is this a current diagnosis for this admission?: Yes Plan: The patient developed increased secretions a, respiratory distress and diaphoresis yesterday. His cxr showed neww bialterla diffuse s infiltrates R>>L. The opatient wasa started on wempiric abx therpay. Could have been an aspiration event a as one of the bnurse though that his lower resp tract secretions resembled tube feeds. 03/15 thus far culture appears to be growing Staph and a GNR. (6) Respiratory failure, [id number] Qualifiers: Respiratory failure complication: hypoxia Qualified Code(s): J96.21 - Acute and chronic respiratory failure with hypoxia Is this a current diagnosis for this admission?: Yes Plan: The patient remains on the ventialtor. he is on CPAP presently. As noted he had a tracheostomy on . Weaning will be slow. Unclear if we will ever be able to get thepatient off the ventialtor as he is terribly deconditioned. Critical Time Critical Time (minutes): 35 Level of Care: ICU -: 1. The care of a critical patient is a dynamic process. This note is a call center support representative synopsis but static in nature. The timeframe for treatments given in order is not necessarily the actual time these treatments may have been done. 2. This patient requires critical care secondary to ongoing requirements for therapy not offered or safe outside the critical care environment. Transfer to a lower level of care will result in altered life or limb morbidity and mortality. 3. Multidisciplinary rounds completed. 4. ABCDE bundle addressed.
[2020-03-15] MEDS: FLUDROCORTISONE ACETATE 0.1 MG TABLET PO SCH (18:13)
[2020-03-15] MEDS: HYDROCORTISONE SOD SUCCINATE INJ/PF 100 MG/2 ML SDV IV SCH (21:54)
[2020-03-16] MEDS: ALBUTEROL SULFATE 0.083% NEB 2.5 MG/3 ML AMPUL NEB SCH ×4 (02:15→20:23)
[2020-03-16] MEDS: VANCOMYCIN HCL 1,250 MG in DEXTROSE 5%-WATER 250 ML IV SCH ×3 (02:15→14:09)
[2020-03-16] MEDS: OXYCODONE HCL IR 5 MG TABLET PO PRN ×3 (03:43→21:46)
[2020-03-16] MEDS: HYDROCORTISONE SOD SUCCINATE INJ/PF 100 MG/2 ML SDV IV SCH ×3 (05:32→21:45)
[2020-03-16] MEDS: HEPARIN SOD (PORCINE) 5,000 UNIT/ML 1 ML VIAL SUBCUT SCH ×3 (05:32→21:46)
[2020-03-16] MEDS: INSULIN GLARGINE,HUM.REC.ANLOG 1,000 UNIT/10 ML VIAL SUBCUT SCH (09:29)
[2020-03-16] MEDS: FUROSEMIDE INJ/PF 20 MG/2 ML SDV IV SCH (09:30)
[2020-03-16] MEDS: PANTOPRAZOLE SODIUM 40 MG VIAL IV SCH (09:30)
[2020-03-16] MEDS: CEFEPIME HCL 2 GM in DEXTROSE 5%-WATER 50 ML IV SCH ×2 (10:02→21:45)
--- NOTE | 2020-03-16 12:23 | PDOC CRITICAL CARE PROG REPORT ---
General ICU Day:: 18 Ventilator Day:: 8 Hospital Day:: 45 Resuscitation Status: Full Code Medical Power of Civil Laboratory Technician: None Events in the past 12 to 24 Hours:: Awake and complaining of pain. Reintubated. 03/11 This is the 5th time the patient has had to be reintubated for respiratory failure. The patient has severe critical illness polyneuropathy. He has developed mucous plugging on this basis multiple times. The patient has steadfastly refused trach and PEG. I told him that he would likely if he were extubated . The patient shrugged his shoulders and appears willing to accept that fate at this point. 03/12 the patient remains on the ventilator. I discussed the situation with him and he was fully alert and responsive. he appears willing to undergo tracheostomy at this time. i rhianna call the consult in. He remains hemodynamically stable. CXR as of 03/11 was roughly unchanged. I have requested a new sputum C and S. His blood sugars are elevated. i lowered the dose of solumedrol and boosted up his lantus dose. 03/13 the patient developed respiratory distress and diaphoresis earlier. His CXR looks dramatically worse with bilateral principally lower lobe infiltrates. The patient was placed On Vanco and Cefipime empirically. I spoke to Dr. Doston (ENT) and I believe trach is scheduled for tomorrow. The patient is ok hemodynamically. I requested sputum culture. Tracheal aspirate GPCs in clusters and chains. The patient had a low blood sugar this AM. I have lower the lantus dose. 03/14 The patient had a bit of a tumultuous course yesterday. he appears to have a new pneumonia bilaterally. He just went to the OR for trach this AM. It appeared to go uneventfully. He is back in the ICU and appears alert. He has been placed empirically on a regimen of Cefpime (PCN allergy) and vanco pending cultures. He will need a feeding tube and I will consult one of the general surgeons. He has had a persistent hyperkalemia. Unclear why this? He has not been getting additional potassium and his kidney fn. is normal.The possibilities include type 4 RTA, hypoadrenalism. We will try to work it up further. 03/15 The patient appears relatively comfortable today. He is actually doing well on SBT with PS of 10. No problems with his trach. he remains quite alert and writes us notes. The TTKG measures 4 which suggest hypoaldosteronism.Will add fludrocortisone to regimen. I am unsure why this patient is hypoadrenal but he has been chronically and severely ill. 03/16 The patient appears in good spirits. He is eager to eat real food. His respiratory status is good. He was on SBT most of the day yesterday.He has s ome lower resp. tract secretions that he is able to cough up. I would like to get him up to a chair today. His potassium is normal range today His Hb is 7.3. His WBC has hovered in the high teens. he appears to be adrenally insufficient based on his lab work. His latest sputum grew out staph aureus and GNRs. Reason for ICU Addmission:: Acute hypercapnic respiratory, self extubated last night Physical Exam Vital Signs: Temp Pulse Resp BP Pulse Ox 98.2 F 107 H 10 L 133/84 H 100 03/16/20 08:00 03/16/20 10:00 03/16/20 10:00 03/16/20 10:00 03/16/20 10:00 Intake & Output 03/15/20 03/16/20 03/17/20 06:59 06:59 06:59 Intake Total 2331 2031 Output Total 1645 1755 245 Balance 686 -914 -245 Weight 69.6 kg 66.1 kg Weight/Height Weight 66.1 kg Height 5 ft 7 in General appearance: PRESENT: no acute distress Head exam: PRESENT: atraumatic, normocephalic Eye exam: PRESENT: conjunctiva pink, PERRLA, scleral icterus Neck exam: ABSENT: meningismus, tenderness, thyromegaly Respiratory exam: PRESENT: crackles, unlabored. ABSENT: accessory muscle use Cardiovascular exam: PRESENT: RRR Pulses: PRESENT: normal carotid pulses GI/Abdominal exam: PRESENT: normal bowel sounds, soft Rectal exam: PRESENT: deferred Gentrourinary exam: ABSENT: ecchymosis, erythema Neurological exam: PRESENT: alert, awake, oriented to person, oriented to place, oriented to time, oriented to situation Laboratory/Radiographs Laboratory Results: 03/15/20 08:44 03/15/20 08:44 03/16/20 03:50 Stool Occult Blood POSITIVE 03/12/20 18:37 Tracheal Aspirate Gram Stain - Final 03/12/20 18:37 Tracheal Aspirate Sputum Culture - Final Staphylococcus Aureus Achromobacter Xlosoxidans Normal Kathie Absent 01/24/20 01/24/20 01/24/20 00:03 00:03 04:20 Creatine Kinase 80 CK-MB (CK-2) 0.63 Troponin I 0.132 0.133 NT-Pro-B Natriuret Pep 03044 H 01/24/20 01/24/20 01/24/20 10:43 17:19 23:06 Creatine Kinase CK-MB (CK-2) Troponin I 0.114 0.079 0.075 NT-Pro-B Natriuret Pep 48747 H 01/30/20 01/31/20 02/01/20 03:45 05:39 06:14 Creatine Kinase CK-MB (CK-2) Troponin I NT-Pro-B Natriuret Pep 35125 H 50903 H 73119 H 02/02/20 02/27/20 02/27/20 04:24 08:12 08:12 Creatine Kinase 33 L CK-MB (CK-2) 2.16 Troponin I 0.013 NT-Pro-B Natriuret Pep 93282 H 02/27/20 02/28/20 02/29/20 08:12 05:44 05:35 Creatine Kinase CK-MB (CK-2) Troponin I NT-Pro-B Natriuret Pep 91599 H 92868 H 87214 H 03/02/20 03/03/20 03/11/20 05:44 05:00 04:33 Creatine Kinase CK-MB (CK-2) Troponin I NT-Pro-B Natriuret Pep 44573 H 27545 H 34808 H 03/13/20 03/15/20 08:40 08:44 Creatine Kinase CK-MB (CK-2) Troponin I NT-Pro-B Natriuret Pep 37765 H 38884 H Impressions: KUB X-Ray 02/23/20 17:08 IMPRESSION: NG tube placement. Chest X-Ray 03/15/20 08:15 IMPRESSION: Unchanged radiographic appearance of the chest Assessment and Plan - Diagnosis (1) Critical illness polyneuropathy Is this a current diagnosis for this admission?: Yes Plan: The patient has a significant polyneuropathy of critical Illness. It has limited his movements and his cough and rtespiratory tushar. This is why he contyinues to fail extuabtion attempts. (2) Acute hypercapnic respiratory failure Is this a current diagnosis for this admission?: Yes Plan: The patient remains on full ventialtor support. He looks reasonably ok. I think he might do ok for several hors or even a few days but than more thanGiven all the previous history we have decided that we shuld no longer extubated the patient. likely he would fail. 03/12 I had a new discussion with the patient and he appears willing to consider tracheostomy at this time. I have a call into Dr. Dotson. At this point we have decided not to proceed with extubation. 03/13 Unclear if the patient can ever be weaned from the ventialtor. He will get trached tomorrow hopefully. 03/14 S/P tracheostomy. Now that he has a new pneumonia we won't be able to wean easily. .03/15 As noted the patient has done well on CPAP today despite his horrible looking CXR. (3) COVID-19 Is this a current diagnosis for this admission?: Yes Plan: Last Covid 03/04 was negative., (4) Diabetes type 2, uncontrolled Qualifiers: Glycemic state: with hyperglycemia Qualified Code(s): E11.65 - Type 2 d iabetes mellitus with hyperglycemia Is this a current diagnosis for this admission?: Yes Plan: Continue Lantus plus sliding scale insulin. Change Nepro to Glucerna. Start at 30 mL/h (goal rate: 40 mL/h). Accu-Cheks every 6 hours. 03/12 i have decreased Solumedrol dose and incrreased his lantus. 03/13 I decreased steroids yesterday. His blood sugar was a little low this AM so I scaled back his Lantus dose. 03/15 blood sugars are reasonably well controlled (5) Pneumonia Qualifiers: Pneumonia type: due to unspecified organism Laterality: bilateral Lung l ocation: unspecified part of lung Qualified Code(s): J18.9 - Pneumonia, unspecified organism Is this a current diagnosis for this admission?: Yes Plan: The patient developed increased secretions a, respiratory distress and diaphoresis yesterday. His cxr showed neww bialterla diffuse s infiltrates R>>L. The opatient wasa started on wempiric abx therpay. Could have been an aspiration event a as one of the bnurse though that his lower resp tract secretions resembled tube feeds. 03/15 thus far culture appears to be growing Staph and a GNR. He is being trated with empiric Vanco and Cefipime (6) Respiratory failure, [id number] Qualifiers: Respiratory failure complication: hypoxia Qualified Code(s): J96.21 - Acute and chronic respiratory failure with hypoxia Is this a current diagnosis for this admission?: Yes Plan: The patient remains on the ventialtor. he is on CPAP presently. As noted he had a tracheostomy on . Weaning will be slow. Unclear if we will ever be able to get the patient off the ventilator as he is terribly deconditioned. Critical Time Critical Time (minutes): 25 Level of Care: ICU -: 1. The care of a critical patient is a dynamic process. This note is a practice representative synopsis but static in nature. The timeframe for treatments given in order is not necessarily the actual time these treatments may have been done. 2. This patient requires critical care secondary to ongoing requirements for therapy not offered or safe outside the critical care environment. Transfer to a lower level of care will result in altered life or limb morbidity and mortality. 3. Multidisciplinary rounds completed. 4. ABCDE bundle addressed.
[2020-03-16] MEDS: INSULIN REG, HUMAN 100 UNIT/ML 3 ML VIAL (PYX) SUBCUT SCH ×4 (13:07→23:40)
[2020-03-16] MEDS: FLUDROCORTISONE ACETATE 0.1 MG TABLET PO SCH (18:22)
[2020-03-16] MEDS: RINGERS SOLUTION,LACTATED 1,000 ML IV PRN (19:00)
[2020-03-16 21:44] LABS: HEMATOCRIT 22.8 % (37.9-51.0); MEAN CORPUSCULAR HEMOGLOBIN 27.9 pg (27.0-33.4); MEAN CORPUSCULAR HGB CONC 32.3 g/dL (32.0-36.0); MEAN CORPUSCULAR VOLUME 86 fl (80-97); PLATELET COUNT 585 10^3/uL (150-450); RED BLOOD COUNT 2.64 10^6/uL (4.35-5.55); RED CELL DISTRIBUTION WIDTH 16.3 % (11.5-14.0); WHITE BLOOD COUNT 15.8 10^3/uL (4.0-10.5)
[2020-03-16 21:56] LABS: ANION GAP 5 (5-19); BLOOD UREA NITROGEN 35 mg/dL (7-20); CALCIUM 7.9 mg/dL (8.4-10.2); CARBON DIOXIDE 33 mmol/L (22-30); CHLORIDE 96 mmol/L (98-107); GLUCOSE 153 mg/dL (75-110); POTASSIUM 4.2 mmol/L (3.6-5.0)
[2020-03-16 22:15] LABS: ABSOLUTE LYMPHOCYTES# (MANUAL) 0.8 10^3/uL (0.5-4.7); ABSOLUTE MONOCYTES # (MANUAL) 0.8 10^3/uL (0.1-1.4); BASOPHILS % (MANUAL) 0 % (0-2); EOSINOPHILS % (MANUAL) 0 % (0-6); LYMPHOCYTES % (MANUAL) 5 % (13-45); MONOCYTES % (MANUAL) 5 % (3-13); SEGMENTED NEUTROPHILS % (MAN) 90 % (42-78); TOTAL CELLS COUNTED 100
[2020-03-16 22:16] LABS: ANISOCYTOSIS 1+; PLATELET COMMENT INCREASED
[2020-03-16 22:18] LABS: POLYCHROMASIA SLIGHT; SCHISTOCYTES SLIGHT
[2020-03-17] MEDS: VANCOMYCIN HCL 1,250 MG in DEXTROSE 5%-WATER 250 ML IV SCH ×2 (01:14→14:31)
[2020-03-17] MEDS: ALBUTEROL SULFATE 0.083% NEB 2.5 MG/3 ML AMPUL NEB SCH ×4 (02:00→20:45)
[2020-03-17] MEDS: HYDROCORTISONE SOD SUCCINATE INJ/PF 100 MG/2 ML SDV IV SCH ×3 (06:28→22:00)
[2020-03-17] MEDS: HEPARIN SOD (PORCINE) 5,000 UNIT/ML 1 ML VIAL SUBCUT SCH ×3 (06:28→22:00)
[2020-03-17] MEDS: INSULIN REG, HUMAN 100 UNIT/ML 3 ML VIAL (PYX) SUBCUT SCH ×3 (06:34→18:09)
[2020-03-17] MEDS: OXYCODONE HCL IR 5 MG TABLET PO PRN ×2 (07:58→16:31)
--- NOTE | 2020-03-17 08:57 | PDOC CRITICAL CARE PROG REPORT ---
General Date:: 03/17/20 ICU Day:: 19 Hospital Day:: 46 Resuscitation Status: Full Code Medical Power of Historic Preservationist: None Events in the past 12 to 24 Hours:: Awake and complaining of pain. Reintubated. 03/11 This is the 5th time the patient has had to be reintubated for respiratory failure. The patient has severe critical illness polyneuropathy. He has developed mucous plugging on this basis multiple times. The patient has steadfastly refused trach and PEG. I told him that he would likely if he were extubated . The patient shrugged his shoulders and appears willing to accept that fate at this point. 03/12 the patient remains on the ventilator. I discussed the situation with him and he was fully alert and responsive. he appears willing to undergo tracheostomy at this time. i rhianna call the consult in. He remains hemodynamically stable. CXR as of 03/11 was roughly unchanged. I have requested a new sputum C and S. His blood sugars are elevated. i lowered the dose of solumedrol and boosted up his lantus dose. 03/13 the patient developed respiratory distress and diaphoresis earlier. His CXR looks dramatically worse with bilateral principally lower lobe infiltrates. The patient was placed On Vanco and Cefipime empirically. I spoke to Dr. Dotson (ENT) and I believe trach is scheduled for tomorrow. The patient is ok hemodynamically. I requested sputum culture. Tracheal aspirate GPCs in clusters and chains. The patient had a low blood sugar this AM. I have lower the lantus dose. 03/14 The patient had a bit of a tumultuous course yesterday. he appears to have a new pneumonia bilaterally. He just went to the OR for trach this AM. It appeared to go uneventfully. He is back in the ICU and appears alert. He has been placed empirically on a regimen of Cefpime (PCN allergy) and vanco pending cultures. He will need a feeding tube and I will consult one of the general surgeons. He has had a persistent hyperkalemia. Unclear why this? He has not been getting additional potassium and his kidney fn. is normal.The possibilities include type 4 RTA, hypoadrenalism. We will try to work it up further. 03/15 The patient appears relatively comfortable today. He is actually doing well on SBT with PS of 10. No problems with his trach. he remains quite alert and writes us notes. The TTKG measures 4 which suggest hypoaldosteronism.Will add fludrocortisone to regimen. I am unsure why this patient is hypoadrenal but he has been chronically and severely ill. 03/16 The patient appears in good spirits. He is eager to eat real food. His respiratory status is good. He was on SBT most of the day yesterday.He has some lower resp. tract secretions that he is able to cough up. I would like to get him up to a chair today. His potassium is normal range today His Hb is 7.3. His WBC has hovered in the high teens. he appears to be adrenally insufficient based on his lab work. His latest sputum grew out staph aureus and GNRs. 03/17 The patient has been off the ventilator all night. He appears quite comfortable on trach collar. he has been awake and hemodynamically stable We are considering transferring the patient to the medical floor. He does not require alot of suctioning. Blood sugars are better controlled. Potassium is in the normal range. he remoians onRx with Vanco and Cefpime for hsi suspected new neumonitis Reason for ICU Addmission:: Acute hypercapnic respiratory, self extubated last night Physical Exam Vital Signs: Temp Pulse Resp BP Pulse Ox 97.5 F 104 H 18 123/106 H 98 03/17/20 08:00 03/17/20 08:00 03/17/20 08:00 03/17/20 08:00 03/17/20 08:00 Intake & Output 03/16/20 03/17/20 03/18/20 06:59 06:59 06:59 Intake Total 1 1200 Output Total 2945 1910 150 Balance -914 -710 -150 Weight 66.1 kg 65 kg Weight/Height Weight 65 kg Height 5 ft 7 in General appearance: PRESENT: no acute distress, thin Head exam: PRESENT: atraumatic, normocephalic Eye exam: PRESENT: conjunctiva pink Mouth exam: PRESENT: moist Neck exam: ABSENT: JVD, lymphadenopathy, meningismus, tenderness Respiratory exam: ABSENT: accessory muscle use, prolonged expiratory phas Cardiovascular exam: PRESENT: RRR. ABSENT: systolic murmur GI/Abdominal exam: PRESENT: normal bowel sounds, soft. ABSENT: tenderness Rectal exam: ABSENT: deferred Gentrourinary exam: ABSENT: ecchymosis Extremities exam: ABSENT: calf tenderness, clubbing Musculoskeletal exam: PRESENT: normal inspection Laboratory/Radiographs Laboratory Results: 03/16/20 21:25 03/16/20 21:25 03/16/20 03/16/20 21:25 21:25 WBC 15.8 H RBC 2.64 L Hgb 7.4 L Hct 22.8 L MCV 86 MCH 27.9 MCHC 32.3 RDW 16.3 H Plt Count 585 H Seg Neutrophils % Not Reportable Sodium 134.0 L Potassium 4.2 Chloride 96 L Carbon Dioxide 33 H Anion Gap 5 BUN 35 H Creatinine 0.68 Est GFR ( Amer) > 60 Glucose 153 H Calcium 7.9 L 01/24/20 01/24/20 01/24/20 00:03 00:03 04:20 Creatine Kinase 80 CK-MB (CK-2) 0.63 Troponin I 0.132 0.133 NT-Pro-B Natriuret Pep 98990 H 01/24/20 01/24/20 01/24/20 10:43 17:19 23:06 Creatine Kinase CK-MB (CK-2) Troponin I 0.114 0.079 0.075 NT-Pro-B Natriuret Pep 26628 H 01/30/20 01/31/20 02/01/20 03:45 05:39 06:14 Creatine Kinase CK-MB (CK-2) Troponin I NT-Pro-B Natriuret Pep 52565 H 90188 H 99089 H 02/02/20 02/27/20 02/27/20 04:24 08:12 08:12 Creatine Kinase 33 L CK-MB (CK-2) 2.16 Troponin I 0.013 NT-Pro-B Natriuret Pep 41504 H 02/27/20 02/28/20 02/29/20 08:12 05:44 05:35 Creatine Kinase CK-MB (CK-2) Troponin I NT-Pro-B Natriuret Pep 04665 H 15981 H 25481 H 03/02/20 03/03/20 03/11/20 05:44 05:00 04:33 Creatine Kinase CK-MB (CK-2) Troponin I NT-Pro-B Natriuret Pep 35708 H 74126 H 23277 H 03/13/20 03/15/20 08:40 08:44 Creatine Kinase CK-MB (CK-2) Troponin I NT-Pro-B Natriuret Pep 44542 H 44448 H Impressions: KUB X-Ray 02/23/20 17:08 IMPRESSION: NG tube placement. Chest X-Ray 03/15/20 08:15 IMPRESSION: Unchanged radiographic appearance of the chest Assessment and Plan - Diagnosis (1) Critical illness polyneuropathy Is this a current diagnosis for this admission?: Yes Plan: The patient has a significant polyneuropathy of critical Illness. It has limited his movements and his cough and rtespiratory tushar. This is why he contyinues to fail extubation attempts. 03/17 the patiet does remain quite weak and needs help moving in the bed, sitting up etc., He cn write ntes with a pen and make his wishes knwon. Do not know if he is abke t stand. Likely needs help at thistime. He will need prolonged period of rehab (2) Acute hypercapnic respiratory failure Is this a current diagnosis for this admission?: Yes Plan: The patient remains on full ventialtor support. He looks reasonably ok. I think he might do ok for several hors or even a few days but than more thanGiven all the previous history we have decided that we shuld no longer extubated the patient. likely he would fail. 03/12 I had a new discussion with the patient and he appears willing to consider tracheostomy at this time. I have a call into Dr. Dotson. At this point we have decided not to proceed with extubation. 03/13 Unclear if the patient can ever be weaned from the ventialtor. He will get trached tomorrow hopefully. 03/14 S/P tracheostomy. Now that he has a new pneumonia we won't be able to wean easily. .03/15 As noted the patient has done well on CPAP today despite his horrible looking CXR. 03/17 The patient is on trach collar and can probablky remain on trach collar (3) COVID-19 Is this a current diagnosis for this admission?: Yes Plan: Last Covid 03/04 was negative., (4) Diabetes type 2, uncontrolled Qualifiers: Glycemic state: with hyperglycemia Qualified Code(s): E11.65 - Type 2 diabetes mellitus with hyperglycemia Is this a current diagnosis for this admission?: Yes (5) Pneumonia Qualifiers: Pneumonia type: due to unspecified organism Laterality: bilateral Lung location: unspecified part of lung Qualified Code(s): J18.9 - Pneumonia, unspecified organism Is this a current diagnosis for this admission?: Yes Plan: The patient developed increased secretions a, respiratory distress and diaphoresis yesterday. His cxr showed neww bialterla diffuse s infiltrates R>>L. The opatient wasa started on wempiric abx therpay. Could have been an aspiration event a as one of the bnurse though that his lower resp tract secretions resembled tube feeds. 03/15 thus far culture appears to be growing Staph and a GNR. He is being trated with empiric Vanco and Cefipime 03/17ABX Rx began of 03/13 and will likely need a week of theraay.ID of GNR and sensitivity of Staph pending. (6) Respiratory failure, [id number] Qualifiers: Respiratory failure complication: hypoxia Qualified Code(s): J96.21 - Acute and chronic respiratory failure with hypoxia Is this a current diagnosis for this admission?: Yes Plan: The patient remains on the ventialtor. he is on CPAP presently. As noted he had a tracheostomy on . Weaning will be slow. Unclear if we will ever be able to get the patient off the ventilator as he is terribly deconditioned. Critical Time Critical Time (minutes): 20 Level of Care: ICU -: 1. The care of a critical patient is a dynamic process. This note is a fuels sales representative synopsis but static in nature. The timeframe for treatments given in order is not necessarily the actual time these treatments may have been done. 2. This patient requires critical care secondary to ongoing requirements for therapy not offered or safe outside the critical care environment. Transfer to a lower level of care will result in altered life or limb morbidity and mortality. 3. Multidisciplinary rounds completed. 4. ABCDE bundle addressed.
[2020-03-17] MEDS: CEFEPIME HCL 2 GM in DEXTROSE 5%-WATER 50 ML IV SCH ×2 (09:50→21:59)
[2020-03-17] MEDS: INSULIN GLARGINE,HUM.REC.ANLOG 1,000 UNIT/10 ML VIAL SUBCUT SCH (09:50)
[2020-03-17] MEDS: FUROSEMIDE INJ/PF 20 MG/2 ML SDV IV SCH (09:51)
[2020-03-17] MEDS: PANTOPRAZOLE SODIUM 40 MG VIAL IV SCH (09:51)
[2020-03-17 10:47] LABS: CHLORIDE URINE 258 mmol/24 hr (52-264)
[2020-03-17 14:29] LABS: ARTERIAL BLOOD BASE EXCESS 11.5 mmol/L; ARTERIAL BLOOD FIO2 40%; ARTERIAL BLOOD H2CO3 1.61 mmol/L (1.05-1.35); ARTERIAL BLOOD HCO3 36.7 mmol/L (20-24); ARTERIAL BLOOD O2 SATURATION 95.8 % (94-98); ARTERIAL BLOOD PCO2 53.4 mmHg (35-45); ARTERIAL BLOOD PH 7.46 (7.35-7.45); ARTERIAL BLOOD PO2 77.5 mmHg (80-100); ARTERIAL BLOOD TOTAL CO2 38.3 mmol/L (23-27)
[2020-03-17 14:42] LABS: VANCOMYCIN,TROUGH 43.7 ug/mL (5.0-20.0)
[2020-03-17 16:28] LABS: HEMOGLOBIN 7.4 g/dL (13.5-17.0)
[2020-03-17] MEDS: FLUDROCORTISONE ACETATE 0.1 MG TABLET PO SCH (18:10)
[2020-03-18] MEDS: INSULIN REG, HUMAN 100 UNIT/ML 3 ML VIAL (PYX) SUBCUT SCH ×4 (01:13→17:51)
[2020-03-18] MEDS: ALBUTEROL SULFATE 0.083% NEB 2.5 MG/3 ML AMPUL NEB SCH ×5 (01:23→20:27)
[2020-03-18] MEDS: OXYCODONE HCL IR 5 MG TABLET PO PRN ×3 (01:58→14:45)
[2020-03-18] MEDS: RINGERS SOLUTION,LACTATED 1,000 ML IV PRN (04:16)
[2020-03-18] MEDS: ONDANSETRON HCL INJ/PF 4 MG/2 ML SDV IV PRN (04:40)
[2020-03-18] MEDS: HYDROMORPHONE HCL INJ/PF 2 MG/ML AMPULE IV PRN (04:41)
[2020-03-18] MEDS: HEPARIN SOD (PORCINE) 5,000 UNIT/ML 1 ML VIAL SUBCUT SCH ×3 (05:01→21:27)
[2020-03-18] MEDS: HYDROCORTISONE SOD SUCCINATE INJ/PF 100 MG/2 ML SDV IV SCH ×3 (06:05→21:27)
[2020-03-18] MEDS: CEFEPIME HCL 2 GM in DEXTROSE 5%-WATER 50 ML IV SCH ×2 (09:10→21:26)
[2020-03-18] MEDS: FUROSEMIDE INJ/PF 20 MG/2 ML SDV IV SCH (09:10)
[2020-03-18] MEDS: INSULIN GLARGINE,HUM.REC.ANLOG 1,000 UNIT/10 ML VIAL SUBCUT SCH (09:10)
[2020-03-18] MEDS: PANTOPRAZOLE SODIUM 40 MG VIAL IV SCH (09:11)
--- NOTE | 2020-03-18 09:36 | RADIOLOGY REPORT (SQ) ---
EXAM DESCRIPTION: CHEST SINGLE VIEW IMAGES COMPLETED DATE/TIME: 03/18/2020 9:14 am REASON FOR STUDY: Pneumonia COMPARISON: 03/15/2020 EXAM PARAMETERS: NUMBER OF VIEWS: One view. TECHNIQUE: Single frontal radiographic view of the chest acquired. RADIATION DOSE: NA LIMITATIONS: None. FINDINGS: LUNGS AND PLEURA: Persistent multifocal patchy airspace disease throughout both lungs, mil dly improved within the left lung base. Small associated pleural effusions, left greater than right. No pneumothorax. MEDIASTINUM AND HILAR STRUCTURES: Stable. HEART AND VASCULAR STRUCTURES: Stable. BONES: No acute findings. HARDWARE: Tracheostomy tube overlies midline upper thoracic trachea. Enteric tube tip side port at G E junction. Partially visualized cervical fusion hardware. OTHER: No other significant finding. IMPRESSION: Multifocal patchy airspace disease throughout both lungs, mildly improved aeration at th e left lung base. Small associated pleural effusions, left greater right. Enteric tube side port at GE junction. Consider advancing 5 to 10 cm. TECHNICAL DOCUMENTATION: JOB ID: [id number] [email or web address] All Rights Reserved Reading location - IP/workstation name: [email or web address]
--- NOTE | 2020-03-18 13:22 | PDOC PROGRESS REPORT ---
Subjective Subjective:: Patient with an extremely prolonged hospital stay with a very complicated clinical course. Patient reportedly failed extubation multiple times, eventually tracheostomy placed and patient transition to trach collar. Patient treated for acute hypercapnic respiratory failure, critical illness polyneuropathy, COVID-19 pneumonia later tested -03/04, bacterial pneumonia possibly aspiration, sepsis, ZURDO on CKD, UTI. Transferred out of ICU overnight 03/17. 03/18/2020 Patient communicating via writing on a white board, reportedly writing various curse words to nursing staff as well. Other than persistent intermittent brigida rtness of breath and has desire to begin eating food again, he has no new complaints. Labs and vitals reviewed. No new labs specifically today. His COVID test was negative on 03/04. He remains in the COVID unit as we do not have a hospital policy on COVID transition from positive to negative results. Reportedly, discharged to acute rehab facility is being explored though he is not accepted anywhere yet per my understanding. Reason For Visit: HYPOXEMIC RESPIRATORY FAILURE, HEMODYNAMIC Physical Exam Vital Signs: Temp Pulse Resp BP Pulse Ox 97.4 F 104 H 18 150/88 H 95 03/18/20 08:27 03/18/20 08:32 03/18/20 08:32 03/18/20 08:27 03/18/20 08:32 Intake & Output 03/17/20 03/18/20 03/19/20 06:59 06:59 06:59 Intake Total 1200 1181 269 Output Total 1910 1425 Balance -710 -244 269 Weight 65 kg 65.4 kg General appearance: PRESENT: no acute distress, well-developed, well-nourished Head exam: PRESENT: atraumatic, normocephalic Eye exam: PRESENT: conjunctiva pink Mouth exam: PRESENT: moist Respiratory exam: PRESENT: clear to auscultation yousif, other - Trach stable. ABSENT: rales, rhonchi, wheezes Cardiovascular exam: PRESENT: RRR. ABSENT: diastolic murmur, rubs, systolic murmur GI/Abdominal exam: PRESENT: normal bowel sounds, soft. ABSENT: distended, guarding, mass, organolmegaly, rebound, tenderness Neurological exam: PRESENT: alert, awake Psychiatric exam: PRESENT: appropriate affect, normal mood Skin exam: PRESENT: dry, intact, warm Results Laboratory Results: 03/16/20 21:25 03/17/20 13:40 03/16/20 03/17/20 03/17/20 21:25 13:40 13:44 Hgb 7.4 L Carbonic Acid 1.61 H HCO3/H2CO3 Ratio 22:1 ABG pH 7.46 H ABG pCO2 53.4 H ABG pO2 77.5 L ABG HCO3 36.7 H ABG O2 Saturation 95.8 ABG Base Excess 11.5 FiO2 40% Creatinine 0.65 Est GFR ( Amer) > 60 03/14/20 10:39 Tracheal Aspirate Gram Stain - Final 03/14/20 10:39 Tracheal Aspirate Sputum Culture - Final Staphylococcus Aureus [place] Cepacia Complex Greatly Reduced Normal Kathie 01/24/20 01/24/20 01/24/20 00:03 00:03 04:20 Creatine Kinase 80 CK-MB (CK-2) 0.63 Troponin I 0.132 0.133 NT-Pro-B Natriuret Pep 55752 H 01/24/20 01/24/20 01/24/20 10:43 17:19 23:06 Creatine Kinase CK-MB (CK-2) Troponin I 0.114 0.079 0.075 NT-Pro-B Natriuret Pep 38829 H 01/30/20 01/31/20 02/01/20 03:45 05:39 06:14 Creatine Kinase CK-MB (CK-2) Troponin I NT-Pro-B Natriuret Pep 45685 H 27972 H 14909 H 02/02/20 02/27/20 02/27/20 04:24 08:12 08:12 Creatine Kinase 33 L CK-MB (CK-2) 2.16 Troponin I 0.013 NT-Pro-B Natriuret Pep 54469 H 02/27/20 02/28/20 02/29/20 08:12 05:44 05:35 Creatine Kinase CK-MB (CK-2) Troponin I NT-Pro-B Natriuret Pep 63365 H 13603 H 75626 H 03/02/20 03/03/20 03/11/20 05:44 05:00 04:33 Creatine Kinase CK-MB (CK-2) Troponin I NT-Pro-B Natriuret Pep 47122 H 77851 H 64361 H 03/13/20 03/15/20 08:40 08:44 Creatine Kinase CK-MB (CK-2) Troponin I NT-Pro-B Natriuret Pep 25827 H 02777 H Impressions: KUB X-Ray 02/23/20 17:08 IMPRESSION: NG tube placement. Chest X-Ray 03/18/20 07:00 IMPRESSION: Multifocal patchy airspace disease throughout both lungs, mildly improved aeration at the left lung base. Small associated pleural effusions, left greater right. Enteric tube side port at GE junction. Consider advancing 5 to 10 cm. Assessment and Plan - Diagnosis (1) Acute respiratory failure due to severe acute respiratory syndrome coronavirus 2 (SARS-CoV-2) infection Is this a current diagnosis for this admission?: Yes Plan: Per machine design teacher: "The patient's current need for mechanical ventilatory support does not appear to be directly related to acute COVID-19 pneumonia. Rather, he has developed acute hypercapnic respiratory failure, which is likely secondary to a combination of airway obstruction with secretions along with muscular weakness. While his prolonged hospitalization and nutritional status are likely to be the primary causes for his weakness, neuromuscular disorder may need to be considered. The patient would best be served by tracheostomy. He does have gram-negative rods growing from tracheal aspirate. This likely reflects a secondary bacterial infection during the convalescent phase of his COVID-19 pneumonia. Continue aztreonam." 03/18/2020 Initial COVID-19 viral pneumonia later became secondary bacterial pneumonia possibly HAP/VAP versus aspiration pneumonia Transitioned to vancomycin/cefepime to complete course on 03/20 Supplemental oxygen to maintain saturation equal/greaterthan 92% (2) Acute hypercapnic respiratory failure Is this a current diagnosis for this admission?: Yes Plan: Per machine design teacher: "The patient remains on full ventialtor support. He looks reasonably ok. I think he might do ok for several hors or even a few days but than more thanGiven all the previous history we have decided that we shuld no longer extubated the patient. likely he would fail. 03/12 I had a new discussion with the patient and he appears willing to consider tracheostomy at this time. I have a call into Dr. Dotson. At this point we have decided not to proceed with extubation. 03/13 Unclear if the patient can ever be weaned from the ventialtor. He will get trached tomorrow hopefully. 8/27 S/P tracheostomy. Now that he has a new pneumonia we won't be able to wean easily. .03/15 As noted the patient has done well on CPAP today despite his horrible looking CXR. 03/17 The patient is on trach collar and can probablky remain on trach collar" 03/18/2020 Trach collar continues, patient tolerating well Will need pulmonology follow-up outpatient (3) Tracheostomy in place Is this a current diagnosis for this admission?: Yes (4) Acute kidney injury superimposed on chronic kidney disease Is this a current diagnosis for this admission?: Yes Plan: Resolved (5) COVID-19 Is this a current diagnosis for this admission?: Yes Plan: Initially positive Most recent Covid test 03/04 was negative (6) Critical illness polyneuropathy Is this a current diagnosis for this admission?: Yes Plan: Per machine design teacher: "The patient has a significant polyneuropathy of critical Illness. It has limited his movements and his cough and rtespiratory tushar. This is why he contyinues to fail extubation attempts. 03/17 the patiet does remain quite weak and needs help moving in the bed, sitting up etc., He cn write ntes with a pen and make his wishes knwon. Do not know if he is abke t stand. Likely needs help at thistime. He will need prolonged period of rehab" 03/18/2020 Severely deconditioned, working on discharge to acute rehab (7) Pneumonia Qualifiers: Pneumonia type: due to unspecified organism Laterality: bilateral Is this a current diagnosis for this admission?: Yes Plan: Significant infiltrates bilaterally seen on imaging, started on empiric antibiotics GPCs and a GNR isolated from sputum Vanc and Cefipime. (8) Sepsis associated hypotension Is this a current diagnosis for this admission?: Yes Plan: Resolved (9) UTI (urinary tract infection) due to Enterococcus Is this a current diagnosis for this admission?: Yes Plan: Per machine design teacher: "He is experiencing recurrent enterococcal urinary tract infections during this hospitalization. He was initiated on aztreonam, which appears to be effectively treating his enterococcal urinary tract infection. He may need to consider chronic suppression with Macrodantin." 03/18/2020 Resolved (10) Hyperlipidemia Qualifiers: Hyperlipidemia type: unspecified Qualified Code(s): E78.5 - Hyperlipidemia, unspecified Is this a current diagnosis for this admission?: Yes (11) Hypertension Is this a current diagnosis for this admission?: Yes Plan: Stable - Plan Summary Summary: Intubated at bedside by Anesthesia; transferred to ICU. - Time Time Spent with patient: 35 or more minutes Medications reviewed and adjusted accordingly: Yes Anticipated Discharge Disposition: [facility] Anticipated Discharge Timeframe: within 72 hours - Inpatient Certification Based on my medical assessment, after consideration of the patient's comorbidities, presenting symptoms, or acuity I expect that the services needed warrant INPATIENT care.: Yes I certify that my determination is in accordance with my understanding of Medicare's requirements for reasonable and necessary INPATIENT services [42 CFR 412.3e].: Yes Medical Necessity: Significant Comorbidiites Make Outpatient Treatment Too Risky, Need Close Monitoring Due to Risk of Patient Decompensation, Need for IV Antibiotics, Risk of Complication if Not Cared For in Hospital, Risk of Diagnosis Which Will Require Inpatient Eval/Care/Monitoring
[2020-03-18] MEDS: THIAMINE HCL 100 MG TABLET PO SCH (17:51)
[2020-03-18] MEDS: ASCORBIC ACID 500 MG TABLET PO SCH (17:51)
--- NOTE | 2020-03-18 23:41 | Operative Report ---
Operative Report-[facility] Operative Report: Date of procedure: March 14, 2020 Preoperative diagnoses: 1. Ventilator dependence 2. Failure to extubate 3. History of COVID-19 4. History of C-spine surgery with C-spine fusion Postoperative diagnoses: 1. Ventilator dependence 2. Failure to extubate 3. History of COVID-19 4. History of C-spine surgery with C-spine fusion Operation performed: 1. Tracheostomy 2. Intraoperative flexible bronchoscopy with suction specimen cultures Primary Surgeon of Record: Dr. Dmitry Dotson Anesthetic: General endotracheal tube anesthesia Anesthesia provider: ROWDY Anderson Estimated blood loss: Less than 5 mL Fluids: mL Complications: None Drains: None Sponge count: Verified Needle Count: Verified Materials forwarded as specimen: 1. Suction mucus/secretion specimens for airway/pulmonary cultures. Findings: 1. Prominent thyroid isthmus. 2. C-spine stiffness, extremely limited flexion extension due to history of C- spine fusion. 3. Intraoperative flexible bronchoscopy with fairly unremarkable trachea, left and right mainstem bronchi, and upper bronchioles, and thick mucus was noted in the trachea which was suctioned for airway/pulmonary cultures. Indications: This is a 59-year-old white male patient who has who has been hospitalized for 60+ days with history of COVID-19. The patient has been intubated for 40+ days and has been on and off the ventilator and with a sustained failure to extubate. The patient is with an extensive medical history. The ICU intensivists have been in extensive communication with the patient regarding the role of tracheostomy which the patient had previously been opposed to, but has reconsidered with the continued failed attempts to extubate with ventilator dependence continuing. He wants to get the endotracheal tube out and he now desires to proceed with the tracheostomy procedure and additional procedures as indicated. He knowledged an understanding of the procedure/surgery and all of the risks and complications, and consent was obtained. Procedure: The patient was taken to the main operating room and placed on the operating room table in the supine position. Appropriate monitors were placed. The patient was already intubated from the ICU and was then connected to the ventilator circuit. The patient was then positioned for tracheostomy surgery. The patient was maintained in a head/neck neutral position due to history of C- spine surgery with C-spine fusion. A planned surgical incision site overlying the trachea was marked out, infiltrated with local anesthetic with epinephrine, and then the patient was prepped and draped in a sterile fashion. The skin was sharply incised and carried down to the strap muscles which were isolated in the midline and mobilized laterally. The thyroid isthmus was next clearly identified and divided in the midline with thyroid lobes mobilized laterally to expose the underlying anterior tracheal wall. The tracheal cartilage interval between the second and third was clearly identified. In a coordinated manner with anesthesia staff the trachea was entered with the left and right lateral cartilage being transected with surgical scissors. Next, Vicryl suture was used to suture stabilized the inferiorly based Randi flap. At this point the endotracheal tube was withdrawn followed by immediate insertion of the #6 Shiley cuffed tracheostomy tube which the ventilator circuit was immediately attached to and was deemed stable and in proper position. Due to secretions that were noted there was an intraoperative decision to perform intraoperative flexible bronchoscopy with findings as noted above. Suction specimens were also taken for culture as noted above. At this point the tracheostomy plate was sutured in place in 4 positions with Prolene suture. Next a tracheostomy collar was placed. There was adequate hemostasis noted. The patient was then returned to the anesthesia staff. The patient was next transported back to the ICU in stable condition. There were no complications.
[2020-03-19] MEDS: INSULIN REG, HUMAN 100 UNIT/ML 3 ML VIAL (PYX) SUBCUT SCH ×4 (00:45→17:41)
[2020-03-19] MEDS: ALBUTEROL SULFATE 0.083% NEB 2.5 MG/3 ML AMPUL NEB SCH ×5 (02:11→21:35)
[2020-03-19 05:24] LABS: HEMATOCRIT 24.7 % (37.9-51.0); MEAN CORPUSCULAR HEMOGLOBIN 27.8 pg (27.0-33.4); MEAN CORPUSCULAR VOLUME 87 fl (80-97); PLATELET COUNT 715 10^3/uL (150-450); RED BLOOD COUNT 2.85 10^6/uL (4.35-5.55); RED CELL DISTRIBUTION WIDTH 16.9 % (11.5-14.0); WHITE BLOOD COUNT 19.7 10^3/uL (4.0-10.5)
[2020-03-19 05:39] LABS: VANCOMYCIN,TROUGH 27.7 ug/mL (5.0-20.0)
[2020-03-19 05:41] LABS: BLOOD UREA NITROGEN 42 mg/dL (7-20); CALCIUM 8.3 mg/dL (8.4-10.2); CARBON DIOXIDE 37 mmol/L (22-30); CHLORIDE 98 mmol/L (98-107); GLUCOSE 228 mg/dL (75-110); POTASSIUM 4.1 mmol/L (3.6-5.0)
[2020-03-19 05:54] LABS: HEMOGLOBIN 7.9 g/dL (13.5-17.0)
[2020-03-19 05:55] LABS: ANION GAP 5 (5-19)
[2020-03-19 06:02] LABS: ABSOLUTE MONOCYTES # (MANUAL) 0.6 10^3/uL (0.1-1.4); BASOPHILS % (MANUAL) 0 % (0-2); EOSINOPHILS % (MANUAL) 1 % (0-6); LYMPHOCYTES % (MANUAL) 5 % (13-45); MONOCYTES % (MANUAL) 3 % (3-13); SEGMENTED NEUTROPHILS % (MAN) 91 % (42-78); TOTAL CELLS COUNTED 100
[2020-03-19 06:03] LABS: ANISOCYTOSIS 1+; OVALOCYTES 1+; POIKILOCYTOSIS 1+; TEAR DROP CELLS 1+; TOXIC GRANULATION SLIGHT
[2020-03-19 06:04] LABS: PLATELET COMMENT ADEQUATE
[2020-03-19] MEDS: RINGERS SOLUTION,LACTATED 1,000 ML IV PRN (06:25)
[2020-03-19] MEDS: HEPARIN SOD (PORCINE) 5,000 UNIT/ML 1 ML VIAL SUBCUT SCH ×3 (06:25→21:36)
[2020-03-19] MEDS: HYDROCORTISONE SOD SUCCINATE INJ/PF 100 MG/2 ML SDV IV SCH ×3 (07:20→21:36)
[2020-03-19] MEDS: PANTOPRAZOLE SODIUM 40 MG VIAL IV SCH (09:06)
[2020-03-19] MEDS: THIAMINE HCL 100 MG TABLET PO SCH (09:06)
[2020-03-19] MEDS: FUROSEMIDE INJ/PF 20 MG/2 ML SDV IV SCH (09:06)
[2020-03-19] MEDS: ASCORBIC ACID 500 MG TABLET PO SCH ×2 (09:06→17:42)
[2020-03-19] MEDS: INSULIN GLARGINE,HUM.REC.ANLOG 1,000 UNIT/10 ML VIAL SUBCUT SCH (11:20)
[2020-03-19] MEDS: CEFEPIME HCL 2 GM in DEXTROSE 5%-WATER 50 ML IV SCH ×2 (11:20→21:36)
--- NOTE | 2020-03-19 15:59 | RADIOLOGY REPORT (SQ) ---
EXAM DESCRIPTION: COOKIE SWALLOW IMAGES COMPLETED DATE/TIME: 03/19/2020 3:45 pm REASON FOR STUDY: new trach placement COMPARISON: None. TECHNIQUE: Videofluoroscopic swallowing examination was performed in conjunction with speech patholo gy. Videofluoroscopic imaging was obtained and reviewed and these are the findings: RADIATION DOSE: 2.3 minutes of fluoroscopy was used. 2 images saved to PACS. LIMITATIONS: None FINDINGS: The patient was brought into the fluoro room and placed upright on a modified barium swall ow chair. The patient was then given multiple consistencies mixed with barium to swallow under live fluoroscopic video guidance. According to the Speech Pathologist there was laryngeal penetration and aspiration of thin and nectar thick liquids. There is aspiration of post swallow residuals from the Piriforms and valleculae. Patient demonstrates a very weak and uncoordinated swallow. IMPRESSION: LARYNGEAL PENETRATION AND TRACHEAL ASPIRATION ABOVE. PLEASE SEE SPEECH PATHOLOGIST RE PORT FOR OTHER FINDINGS AND RECOMMENDATIONS. COMMENT: Quality ID [id number]: Final reports for procedures using fluoroscopy that document radiation exp osure indices, or exposure time and number of fluorographic images (if radiation exposure indices are not available) TECHNICAL DOCUMENTATION: JOB ID: [id number] 2010 [employer]- All Rights Reserved Reading location - IP/workstation name: [email or web address] [id number]
--- NOTE | 2020-03-19 16:26 | ST Inp Modified Barium Swallow ---
Medical Diagnosis - Medical Diagnoses Medical Diagnosis Description & ICD-10 Code(s): acute respiratory failure, tracheostomy placement - ICD-10 Tx Diagnosis Coding (1) Dysphagia ICD-10 Code(s): R13.10 - DYSPHAGIA, UNSPECIFIED (2) Acute respiratory failure due to severe acute respiratory syndrome coronavirus 2 (SARS-CoV-2) infection ICD-10 Code(s): U07.1 - COVID-19; J96.00 - ACUTE RESPIRATORY FAILURE, UNSP W HYPOXIA OR HYPERCAPNIA (3) Tracheostomy in place ICD-10 Code(s): Z93.0 - TRACHEOSTOMY STATUS ST Inpatient [facility] [place] - General Date: 03/19/20 Date of Onset: 01/23/20 - admit date - History -: Medical - per EMR: patient admitted 01/23 with respiratory insufficiency, hemodynamic instability, became unresponsive in ED and put on bipap. Chest CT 01/22 revealed extensive bilateral pneumonia, was tested for COVID-19, found to be positive. Patient has been intubated and extubated numerous times, now has a tracheostomy placed on 03/14/20 with #6 Shiley cuffed trach tube. Prior medical history includes diabetes, hypertension, CHF, narcotic dependence from chronic arthritis, CKD. Patient has had NG for nutrition for several weeks now. Medications: Medications Reviewed Allergies: Refer to medical record - Subjective Current Nutritional Means: NG Current PO Diet: N/A (NPO) Current Symptoms: other - severe risk due to medical history and new tracheostomy placement Pain: Patient reports, 0/5 - Objective Assessment: Upright, Left Lateral - Food Trials Food Trials Used: Thin liquids, [place] thick liquids The Patient: fed by ST - Assessment Labial Function: Within Normal Limits Laryngeal Function: no volitional cough/clear - patient not vocalizing, did not attempt cough or clear, is on cuffed tracheostomy tube - Pharyngeal Stage Initiation of Pharyngeal Stage: Delayed - significant delay in initiation of swallow reflex, up to 15 seconds Decreased Laryngeal Elevation: Yes Reduced Velo-Pharyngeal Closure: no Reduced Pressure Generation: Yes Pre-Swallowing Pooling in Valleculae: Significant Pre-Swallowing Pooling in Pyriforms: Significant Reduced Thyro-Hyiod Approximation: Yes Multiple Swallows With: Ineffective Clearance Post Swallow Residuals in Valleculae: Significant Post Swallow Residuals in Pyriforms: Significant - Impression/Summary Laryngeal Penetration: Yes Tracheal Aspiration: yes - significant aspiration occured with nectar and thin barium by teaspoon. Aspiration occured during the swallow, as well as after the swallow due to residuals. Patient did not react or respond to aspiration, patient was giving the therapist a "thumbs up" throughout the assessment. No cough reaction seen. Ineffective Compensatory Strategies: throat clear & reswallow, hard swallow Patient Presents With: Pharyngeal stage dysph., Profound Risk of Aspiration: Severe - Recommendations NPO: yes, therapeutic trials Strict Aspitarion Precautions: Yes Dysphagia Therapy with CAN LABELER: Yes Other Recommendations: Recommend therapy with speech pathology to address profound dysphagia. Recommend thorough oral care to reduce risk of aspiration pneumonia related to oral secretions. Short Term Goal 1: Patient will demonstrate swallow reflex for ice chips within 8 seconds of bolus entering mouth in 4/5 trials. Due to length of NPO status, the patient may require lengthy rehabiitation to tolerate PO diet. - Time Total Time: 30 Total Timed Minutes: 30
--- NOTE | 2020-03-19 16:34 | PDOC PROGRESS REPORT ---
Subjective Subjective:: Patient with an extremely prolonged hospital stay with a very complicated clinical course. Patient reportedly failed extubation multiple times, eventually tracheostomy placed and patient transition to trach collar. Patient treated for acute hypercapnic respiratory failure, critical illness polyneuropathy, COVID-19 pneumonia later tested -03/04, bacterial pneumonia possibly aspiration, sepsis, ZURDO on CKD, UTI. Transferred out of ICU overnight 03/17. 03/18/2020 Patient communicating via writing on a white board, reportedly writing various curse words to nursing staff as well. Other than persistent intermittent brigida rtness of breath and has desire to begin eating food again, he has no new complaints. Labs and vitals reviewed. No new labs specifically today. His COVID test was negative on 03/04. He remains in the COVID unit as we do not have a hospital policy on COVID transition from positive to negative results. Reportedly, discharged to acute rehab facility is being explored though he is not accepted anywhere yet per my understanding. 03/19/2020 Patient had barium swallow today and failed this quite severely according to speech therapy and she states he must be n.p.o. until further notice. We will keep the NG tube for his nutrition and medication administration. We may need to explore giving him a PEG tube as he likely cannot go to rehab facility with an NG tube. Blood pressure and hemoglobin are both a bit higher today. He has no new complaints and we continue looking for disposition for him. Reason For Visit: HYPOXEMIC RESPIRATORY FAILURE, HEMODYNAMIC Physical Exam Vital Signs: Temp Pulse Resp BP Pulse Ox 97.5 F 90 22 H 146/90 H 97 03/19/20 11:05 03/19/20 13:30 03/19/20 11:05 03/19/20 11:05 03/19/20 11:05 Intake & Output 03/18/20 03/19/20 03/20/20 06:59 06:59 06:59 Intake Total 1181 1685 200 Output Total 1425 2125 Balance -244 -440 200 Weight 65.4 kg 68.2 kg Exam: General appearance: PRESENT: no acute distress, well-developed, well-nourished, denies any new complaints Head exam: PRESENT: atraumatic, normocephalic Eye exam: PRESENT: conjunctiva pink Mouth exam: PRESENT: moist Respiratory exam: PRESENT: clear to auscultation yousif, other - Trach stable. ABSENT: rales, rhonchi, wheezes Cardiovascular exam: PRESENT: RRR. ABSENT: diastolic murmur, rubs, systolic mu rmur GI/Abdominal exam: PRESENT: normal bowel sounds, soft. ABSENT: distended, guarding, mass, organolmegaly, rebound, tenderness Neurological exam: PRESENT: alert, awake Psychiatric exam: PRESENT: appropriate affect, normal mood Skin exam: PRESENT: dry, intact, warm Results Laboratory Results: 03/19/20 04:23 03/19/20 04:23 03/19/20 03/19/20 04:23 04:23 WBC 19.7 H RBC 2.85 L Hgb 7.9 L Hct 24.7 L MCV 87 MCH 27.8 MCHC 32.0 RDW 16.9 H Plt Count 715 H Seg Neutrophils % Not Reportable Sodium 139.8 Potassium 4.1 Chloride 98 Carbon Dioxide 37 H Anion Gap 5 BUN 42 H Creatinine 0.79 Est GFR ( Amer) > 60 Glucose 228 H Calcium 8.3 L 01/24/20 01/24/20 01/24/20 00:03 00:03 04:20 Creatine Kinase 80 CK-MB (CK-2) 0.63 Troponin I 0.132 0.133 NT-Pro-B Natriuret Pep 86851 H 01/24/20 01/24/20 01/24/20 10:43 17:19 23:06 Creatine Kinase CK-MB (CK-2) Troponin I 0.114 0.079 0.075 NT-Pro-B Natriuret Pep 18377 H 01/30/20 01/31/20 02/01/20 03:45 05:39 06:14 Creatine Kinase CK-MB (CK-2) Troponin I NT-Pro-B Natriuret Pep 39494 H 95375 H 05943 H 02/02/20 02/27/20 02/27/20 04:24 08:12 08:12 Creatine Kinase 33 L CK-MB (CK-2) 2.16 Troponin I 0.013 NT-Pro-B Natriuret Pep 15331 H 02/27/20 02/28/20 02/29/20 08:12 05:44 05:35 Creatine Kinase CK-MB (CK-2) Troponin I NT-Pro-B Natriuret Pep 93751 H 72963 H 73973 H 03/02/20 03/03/20 03/11/20 05:44 05:00 04:33 Creatine Kinase CK-MB (CK-2) Troponin I NT-Pro-B Natriuret Pep 28623 H 92481 H 26174 H 03/13/20 03/15/20 08:40 08:44 Creatine Kinase CK-MB (CK-2) Troponin I NT-Pro-B Natriuret Pep 54417 H 83388 H Impressions: KUB X-Ray 02/23/20 17:08 IMPRESSION: NG tube placement. Chest X-Ray 03/18/20 07:00 IMPRESSION: Multifocal patchy airspace disease throughout both lungs, mildly improved aeration at the left lung base. Small associated pleural effusions, left greater right. Enteric tube side port at GE junction. Consider advancing 5 to 10 cm. Modified Barium Swallow 03/19/20 00:00 IMPRESSION: LARYNGEAL PENETRATION AND TRACHEAL ASPIRATION ABOVE. PLEASE SEE SPEECH PATHOLOGIST REPORT FOR OTHER FINDINGS AND RECOMMENDATIONS. Assessment and Plan - Diagnosis (1) Acute respiratory failure due to severe acute respiratory syndrome coronavirus 2 (SARS-CoV-2) infection Is this a current diagnosis for this admission?: Yes Plan: Per prepared foods associate: "The patient's current need for mechanical ventilatory support does not appear to be directly related to acute COVID-19 pneumonia. Rather, he has developed acute hypercapnic respiratory failure, which is likely secondary to a combination of airway obstruction with secretions along with muscular weakness. While his prolonged hospitalization and nutritional status are likely to be the primary causes for his weakness, neuromuscular disorder may need to be considered. The patient would best be served by tracheostomy. He does have gram-negative rods growing from tracheal aspirate. This likely reflects a secondary bacterial infection during the convalescent phase of his COVID-19 pneumonia. Continue aztreonam." 03/18/2020 Initial COVID-19 viral pneumonia later became secondary bacterial pneumonia possibly HAP/VAP versus aspiration pneumonia Transitioned to vancomycin/cefepime to complete course on 03/20 Supplemental oxygen to maintain saturation equal/greaterthan 92% Stable (2) Acute hypercapnic respiratory failure Is this a current diagnosis for this admission?: Yes Plan: Per prepared foods associate: "The patient remains on full ventialtor support. He looks reasonably ok. I think he might do ok for several hors or even a few days but than more thanGiven all the previous history we have decided that we shuld no longer extubated the patient. likely he would fail. 03/12 I had a new discussion with the patient and he appears willing to consider tracheostomy at this time. I have a call into Dr. Dotson. At this point we have decided not to proceed with extubation. 03/13 Unclear if the patient can ever be weaned from the ventialtor. He will get trached tomorrow hopefully. 03/14 S/P tracheostomy. Now that he has a new pneumonia we won't be able to wean easily. .03/15 As noted the patient has done well on CPAP today despite his horrible looking CXR. 03/17 The patient is on trach collar and can probablky remain on trach collar" 03/18/2020 Trach collar continues, patient tolerating well Will need pulmonology follow-up outpatient Stable (3) Tracheostomy in place Is this a current diagnosis for this admission?: Yes Plan: Has associated dysphagia, failed modified barium swallow on 03/19 Consider PEG tube (4) Acute kidney injury superimposed on chronic kidney disease Is this a current diagnosis for this admission?: Yes (5) COVID-19 Is this a current diagnosis for this admission?: Yes (6) Critical illness polyneuropathy Is this a current diagnosis for this admission?: Yes (7) Pneumonia Is this a current diagnosis for this admission?: Yes (8) Sepsis associated hypotension Is this a current diagnosis for this admission?: Yes (9) UTI (urinary tract infection) due to Enterococcus Is this a current diagnosis for this admission?: Yes (10) Hyperlipidemia Qualifiers: Qualified Code(s): E78.5 - Hyperlipidemia, unspecified Is this a current diagnosis for this admission?: Yes (11) Hypertension Is this a current diagnosis for this admission?: Yes - Plan Summary Summary: Intubated at bedside by Anesthesia; transferred to ICU. - Time Time Spent with patient: 35 or more minutes Medications reviewed and adjusted accordingly: Yes Anticipated Discharge Disposition: Jail Facility Anticipated Discharge Timeframe: within 72 hours - Inpatient Certification Based on my medical assessment, after consideration of the patient's comorbidities, presenting symptoms, or acuity I expect that the services needed warrant INPATIENT care.: Yes I certify that my determination is in accordance with my understanding of Medicare's requirements for reasonable and necessary INPATIENT services [42 CFR 412.3e].: Yes Medical Necessity: Significant Comorbidiites Make Outpatient Treatment Too Risky, Need Close Monitoring Due to Risk of Patient Decompensation, Risk of Complication if Not Cared For in Hospital, Risk of Diagnosis Which Will Require Inpatient Eval/Care/Monitoring
[2020-03-19] MEDS: OXYCODONE HCL IR 5 MG TABLET PO PRN (22:06)
[2020-03-20] MEDS: INSULIN REG, HUMAN 100 UNIT/ML 3 ML VIAL (PYX) SUBCUT SCH ×4 (00:46→18:19)
--- NOTE | 2020-03-20 02:01 | RADIOLOGY REPORT (SQ) ---
CLINICAL HISTORY: Possible aspiration COMPARISON: 03/18/2020. TECHNIQUE: XR CHEST 1 VIEW 03/19/2020 12:00 AM CDT FINDINGS: Cardiac silhouette is normal in size. There is moderate bibasilar airspace disease. There may be a left pleural effusion. There is no pneumothorax. There are no acute osseous findings. Tracheostomy and NG tube are unchanged. IMPRESSION: No change.
[2020-03-20] MEDS: ALBUTEROL SULFATE 0.083% NEB 2.5 MG/3 ML AMPUL NEB SCH ×4 (02:08→19:52)
[2020-03-20] MEDS: HYDROCORTISONE SOD SUCCINATE INJ/PF 100 MG/2 ML SDV IV SCH ×3 (05:24→22:05)
[2020-03-20] MEDS: HEPARIN SOD (PORCINE) 5,000 UNIT/ML 1 ML VIAL SUBCUT SCH ×3 (05:24→22:05)
[2020-03-20 05:27] LABS: VANCOMYCIN,TROUGH 22.3 ug/mL (5.0-20.0)
[2020-03-20] MEDS: OXYCODONE HCL IR 5 MG TABLET PO PRN ×3 (05:39→22:29)
[2020-03-20 08:02] LABS: HEMATOCRIT 25.9 % (37.9-51.0); MEAN CORPUSCULAR VOLUME 87 fl (80-97); PLATELET COUNT 729 10^3/uL (150-450); RED BLOOD COUNT 2.97 10^6/uL (4.35-5.55); RED CELL DISTRIBUTION WIDTH 17.3 % (11.5-14.0); WHITE BLOOD COUNT 26.9 10^3/uL (4.0-10.5)
[2020-03-20 08:24] LABS: ANION GAP 6 (5-19); BLOOD UREA NITROGEN 45 mg/dL (7-20); CALCIUM 8.5 mg/dL (8.4-10.2); CARBON DIOXIDE 36 mmol/L (22-30); CHLORIDE 100 mmol/L (98-107); GLUCOSE 124 mg/dL (75-110); POTASSIUM 3.8 mmol/L (3.6-5.0)
[2020-03-20 08:29] LABS: ABSOLUTE LYMPHOCYTES# (MANUAL) 1.9 10^3/uL (0.5-4.7); ABSOLUTE MONOCYTES # (MANUAL) 0.5 10^3/uL (0.1-1.4); BAND NEUTROPHILS % (MANUAL) 1 % (3-5); BASOPHILS % (MANUAL) 0 % (0-2); EOSINOPHILS % (MANUAL) 0 % (0-6); LYMPHOCYTES % (MANUAL) 6 % (13-45); MONOCYTES % (MANUAL) 2 % (3-13); SEGMENTED NEUTROPHILS % (MAN) 90 % (42-78); TOTAL CELLS COUNTED 100
[2020-03-20 08:31] LABS: ANISOCYTOSIS 1+; OVALOCYTES SLIGHT; PLATELET CLUMPS PRESENT; PLATELET COMMENT INCREASED
[2020-03-20] MEDS: THIAMINE HCL 100 MG TABLET PO SCH (10:51)
[2020-03-20] MEDS: FUROSEMIDE INJ/PF 20 MG/2 ML SDV IV SCH (10:51)
[2020-03-20] MEDS: PANTOPRAZOLE SODIUM 40 MG VIAL IV SCH (10:51)
[2020-03-20] MEDS: ASCORBIC ACID 500 MG TABLET PO SCH ×2 (10:51→18:19)
[2020-03-20] MEDS: INSULIN GLARGINE,HUM.REC.ANLOG 1,000 UNIT/10 ML VIAL SUBCUT SCH (10:51)
[2020-03-20] MEDS: RINGERS SOLUTION,LACTATED 1,000 ML IV PRN (10:53)
--- NOTE | 2020-03-20 17:10 | PDOC PROGRESS REPORT ---
Subjective Subjective:: Patient with an extremely prolonged hospital stay with a very complicated clinical course. Patient reportedly failed extubation multiple times, eventually tracheostomy placed and patient transition to trach collar. Patient treated for acute hypercapnic respiratory failure, critical illness polyneuropathy, COVID-19 pneumonia later tested -03/04, bacterial pneumonia possibly aspiration, sepsis, ZURDO on CKD, UTI. Transferred out of ICU overnight 03/17. 03/18/2020 Patient communicating via writing on a white board, reportedly writing various curse words to nursing staff as well. Other than persistent intermittent brigida rtness of breath and has desire to begin eating food again, he has no new complaints. Labs and vitals reviewed. No new labs specifically today. His COVID test was negative on 03/04. He remains in the COVID unit as we do not have a hospital policy on COVID transition from positive to negative results. Reportedly, discharged to acute rehab facility is being explored though he is not accepted anywhere yet per my understanding. 03/19/2020 Patient had barium swallow today and failed this quite severely according to speech therapy and she states he must be n.p.o. until further notice. We will keep the NG tube for his nutrition and medication administration. We may need to explore giving him a PEG tube as he likely cannot go to rehab facility with an NG tube. Blood pressure and hemoglobin are both a bit higher today. He has no new complaints and we continue looking for disposition for him. 03/20/2020 Patient seen and COVID unit again today. Per speech therapy he is still unable to swallow effectively and will continue to require an alternate route of nutrition. I have consulted general surgery to evaluate him for a G-tube for feeding. Patient has also expressed to staff that he would like a feeding tube rather than an NG tube. Labs and vital signs reviewed today. WBC substantially increased to 26.9 and other blood counts are stable. He has no new complaints today. Reason For Visit: HYPOXEMIC RESPIRATORY FAILURE, HEMODYNAMIC Physical Exam Vital Signs: Temp Pulse Resp BP Pulse Ox 97.8 F 74 20 142/83 H 100 03/20/20 08:07 03/20/20 14:00 03/20/20 14:00 03/20/20 08:07 03/20/20 15:30 Intake & Output 03/19/20 03/20/20 03/21/20 06:59 06:59 06:59 Intake Total 1685 1300 160 Output Total 2125 525 Balance -440 775 160 Weight 68.2 kg 65.8 kg Exam: General appearance: PRESENT: no acute distress, well-developed, well-nourished, motions with his hands that he wants his NG tube removed Head exam: PRESENT: atraumatic, normocephalic Eye exam: PRESENT: conjunctiva pink Mouth exam: PRESENT: moist Respiratory exam: PRESENT: clear to auscultation yousif, other - Trach stable. ABSENT: rales, rhonchi, wheezes Cardiovascular exam: PRESENT: RRR. ABSENT: diastolic murmur, rubs, systolic murmur GI/Abdominal exam: PRESENT: normal bowel sounds, soft. ABSENT: distended, guarding, mass, organolmegaly, rebound, tenderness Neurological exam: PRESENT: alert, awake Psychiatric exam: PRESENT: appropriate affect, normal mood Skin exam: PRESENT: dry, intact, warm Results Laboratory Results: 03/20/20 04:00 03/20/20 04:00 03/20/20 03/20/20 04:00 04:00 WBC 26.9 H RBC 2.97 L Hgb 8.0 L Hct 25.9 L MCV 87 MCH 27.0 MCHC 31.0 L RDW 17.3 H Plt Count 729 H Seg Neutrophils % Not Reportable Sodium 141.5 Potassium 3.8 Chloride 100 Carbon Dioxide 36 H Anion Gap 6 BUN 45 H Creatinine 0.68 Est GFR ( Amer) > 60 Glucose 124 H Calcium 8.5 01/24/20 01/24/20 01/24/20 00:03 00:03 04:20 Creatine Kinase 80 CK-MB (CK-2) 0.63 Troponin I 0.132 0.133 NT-Pro-B Natriuret Pep 42137 H 01/24/20 01/24/20 01/24/20 10:43 17:19 23:06 Creatine Kinase CK-MB (CK-2) Troponin I 0.114 0.079 0.075 NT-Pro-B Natriuret Pep 31659 H 01/30/20 01/31/20 02/01/20 03:45 05:39 06:14 Creatine Kinase CK-MB (CK-2) Troponin I NT-Pro-B Natriuret Pep 98070 H 78031 H 71932 H 02/02/20 02/27/2002/26/20 04:24 08:12 08:12 Creatine Kinase 33 L CK-MB (CK-2) 2.16 Troponin I 0.013 NT-Pro-B Natriuret Pep 81264 H 02/27/20 02/28/20 02/29/20 08:12 05:44 05:35 Creatine Kinase CK-MB (CK-2) Troponin I NT-Pro-B Natriuret Pep 88807 H 29717 H 74466 H 03/02/20 03/03/20 03/11/20 05:44 05:00 04:33 Creatine Kinase CK-MB (CK-2) Troponin I NT-Pro-B Natriuret Pep 13181 H 88436 H 68704 H 03/13/20 03/15/20 08:40 08:44 Creatine Kinase CK-MB (CK-2) Troponin I NT-Pro-B Natriuret Pep 86146 H 47546 H Impressions: KUB X-Ray 02/23/20 17:08 IMPRESSION: NG tube placement. Chest X-Ray 03/19/20 00:00 IMPRESSION: No change. Modified Barium Swallow 03/19/20 00:00 IMPRESSION: LARYNGEAL PENETRATION AND TRACHEAL ASPIRATION ABOVE. PLEASE SEE SPEECH PATHOLOGIST REPORT FOR OTHER FINDINGS AND RECOMMENDATIONS. Assessment and Plan - Diagnosis (1) Acute respiratory failure due to severe acute respiratory syndrome coronavirus 2 (SARS-CoV-2) infection Is this a current diagnosis for this admission?: Yes Plan: Per golf teacher: "The patient's current need for mechanical ventilatory support does not appear to be directly related to acute COVID-19 pneumonia. Rather, he has developed acute hypercapnic respiratory failure, which is likely secondary to a combination of airway obstruction with secretions along with muscular weakness. While his prolonged hospitalization and nutritional status are likely to be the primary causes for his weakness, neuromuscular disorder may need to be considered. The patient would best be served by tracheostomy. He does have gram-negative rods growing from tracheal aspirate. This likely reflects a secondary bacterial infection during the convalescent phase of his COVID-19 pneumonia. Continue aztreonam." 03/18/2020 Initial COVID-19 viral pneumonia later became secondary bacterial pneumonia possibly HAP/VAP versus aspiration pneumonia Transitioned to vancomycin/cefepime to complete course on 03/20 Supplemental oxygen to maintain saturation equal/greaterthan 92% Stable, remains in COVID unit (2) Acute hypercapnic respiratory failure Is this a current diagnosis for this admission?: Yes (3) Tracheostomy in place Is this a current diagnosis for this admission?: Yes (4) Acute kidney injury superimposed on chronic kidney disease Is this a current diagnosis for this admission?: Yes (5) COVID-19 Is this a current diagnosis for this admission?: Yes (6) Critical illness polyneuropathy Is this a current diagnosis for this admission?: Yes (7) Pneumonia Qualifiers: Pneumonia type: due to unspecified organism Laterality: bilateral Is this a current diagnosis for this admission?: Yes (8) Sepsis associated hypotension Is this a current diagnosis for this admission?: Yes (9) UTI (urinary tract infection) due to Enterococcus Is this a current diagnosis for this admission?: Yes (10) Hyperlipidemia Qualifiers: Hyperlipidemia type: unspecified Qualified Code(s): E78.5 - Hyperlipidemia, unspecified Is this a current diagnosis for this admission?: Yes (11) Hypertension Is this a current diagnosis for this admission?: Yes (12) Dysphagia Is this a current diagnosis for this admission?: Yes Plan: Patient unable to swallow, failed modified barium swallow, speech therapy recommending n.p.o. and alternate nutrition means General surgery consulted for G-tube/feeding tube placement. - Plan Summary Summary: Intubated at bedside by Anesthesia; transferred to ICU. - Time Time Spent with patient: 35 or more minutes Medications reviewed and adjusted accordingly: Yes Anticipated Discharge Disposition: Longterm Facility Anticipated Discharge Timeframe: within 72 hours - Inpatient Certification Based on my medical assessment, after consideration of the patient's comorbidities, presenting symptoms, or acuity I expect that the services needed warrant INPATIENT care.: Yes I certify that my determination is in accordance with my understanding of Medicare's requirements for reasonable and necessary INPATIENT services [42 CFR 412.3e].: Yes Medical Necessity: Significant Comorbidiites Make Outpatient Treatment Too Risky, Need Close Monitoring Due to Risk of Patient Decompensation, Need for Surgery, Risk of Complication if Not Cared For in Hospital, Risk of Diagnosis Which Will Require Inpatient Eval/Care/Monitoring
[2020-03-21] MEDS: INSULIN REG, HUMAN 100 UNIT/ML 3 ML VIAL (PYX) SUBCUT SCH ×4 (01:24→17:38)
[2020-03-21] MEDS: MORPHINE SULFATE 10 MG/ML INJ IV PRN ×5 (01:24→22:15)
[2020-03-21] MEDS: ALBUTEROL SULFATE 0.083% NEB 2.5 MG/3 ML AMPUL NEB SCH ×4 (02:12→20:12)
[2020-03-21 05:14] LABS: ANION GAP 6 (5-19); BLOOD UREA NITROGEN 41 mg/dL (7-20); CALCIUM 8.3 mg/dL (8.4-10.2); CARBON DIOXIDE 37 mmol/L (22-30); CHLORIDE 101 mmol/L (98-107); GLUCOSE 199 mg/dL (75-110)
[2020-03-21] MEDS: HEPARIN SOD (PORCINE) 5,000 UNIT/ML 1 ML VIAL SUBCUT SCH (05:45)
[2020-03-21] MEDS: HYDROCORTISONE SOD SUCCINATE INJ/PF 100 MG/2 ML SDV IV SCH ×3 (05:46→22:14)
[2020-03-21 07:51] LABS: HEMATOCRIT 25.7 % (37.9-51.0); HEMOGLOBIN 8.2 g/dL (13.5-17.0); MEAN CORPUSCULAR HEMOGLOBIN 27.7 pg (27.0-33.4); MEAN CORPUSCULAR HGB CONC 31.8 g/dL (32.0-36.0); MEAN CORPUSCULAR VOLUME 87 fl (80-97); PLATELET COUNT 629 10^3/uL (150-450); RED BLOOD COUNT 2.95 10^6/uL (4.35-5.55); RED CELL DISTRIBUTION WIDTH 17.5 % (11.5-14.0); WHITE BLOOD COUNT 22.7 10^3/uL (4.0-10.5)
[2020-03-21] MEDS: RINGERS SOLUTION,LACTATED 1,000 ML IV PRN (08:56)
[2020-03-21 09:02] LABS: ABSOLUTE LYMPHOCYTES# (MANUAL) 0.7 10^3/uL (0.5-4.7); ABSOLUTE MONOCYTES # (MANUAL) 1.1 10^3/uL (0.1-1.4); BASOPHILS % (MANUAL) 0 % (0-2); EOSINOPHILS % (MANUAL) 1 % (0-6); LYMPHOCYTES % (MANUAL) 3 % (13-45); METAMYELOCYTES % (MANUAL) 1 % (0-1); MONOCYTES % (MANUAL) 5 % (3-13); SEGMENTED NEUTROPHILS % (MAN) 90 % (42-78); TOTAL CELLS COUNTED 100
[2020-03-21 09:04] LABS: ANISOCYTOSIS 1+; PLATELET COMMENT INCREASED; POLYCHROMASIA 1+; TOXIC GRANULATION SLIGHT
[2020-03-21] MEDS: PANTOPRAZOLE SODIUM 40 MG VIAL IV SCH (09:41)
[2020-03-21] MEDS: THIAMINE HCL 100 MG TABLET PO SCH (09:42)
[2020-03-21] MEDS: FUROSEMIDE INJ/PF 20 MG/2 ML SDV IV SCH (09:42)
[2020-03-21] MEDS: ASCORBIC ACID 500 MG TABLET PO SCH ×2 (09:42→17:25)
[2020-03-21] MEDS: INSULIN GLARGINE,HUM.REC.ANLOG 1,000 UNIT/10 ML VIAL SUBCUT SCH (09:48)
--- NOTE | 2020-03-21 12:27 | RADIOLOGY REPORT (SQ) ---
EXAM DESCRIPTION: CHEST SINGLE VIEW IMAGES COMPLETED DATE/TIME: 03/21/2020 11:48 am REASON FOR STUDY: NG tube placement COMPARISON: 03/19/2020 NUMBER OF VIEWS: One view. TECHNIQUE: Single frontal radiographic image of the chest acquired. LIMITATIONS: None. FINDINGS: LUNGS AND PLEURA: Improved aeration with residual small left pleural effusion and associat ed airspace disease. No pneumothorax. MEDIASTINUM AND HEART: Stable heart size and mediastinal structures. SUPPORT DEVICES: Appropriate location without change. BONY STRUCTURES: No acute findings. HARDWARE: None. OTHER: No other significant finding. IMPRESSION: Interval improvement. Appropriate position of nasogastric tube. Reading location - IP/workstation name: [email or web address]
[2020-03-21] MEDS: OXYCODONE HCL IR 5 MG TABLET PO PRN (13:16)
--- NOTE | 2020-03-21 14:51 | PDOC PROGRESS REPORT ---
Subjective Subjective:: Patient with an extremely prolonged hospital stay with a very complicated clinical course. Patient reportedly failed extubation multiple times, eventually tracheostomy placed and patient transition to trach collar. Patient treated for acute hypercapnic respiratory failure, critical illness polyneuropathy, COVID-19 pneumonia later tested -03/04, bacterial pneumonia possibly aspiration, sepsis, ZURDO on CKD, UTI. Transferred out of ICU overnight 03/17. 03/18/2020 Patient communicating via writing on a white board, reportedly writing various curse words to nursing staff as well. Other than persistent intermittent brigida rtness of breath and has desire to begin eating food again, he has no new complaints. Labs and vitals reviewed. No new labs specifically today. His COVID test was negative on 03/04. He remains in the COVID unit as we do not have a hospital policy on COVID transition from positive to negative results. Reportedly, discharged to acute rehab facility is being explored though he is not accepted anywhere yet per my understanding. 03/19/2020 Patient had barium swallow today and failed this quite severely according to speech therapy and she states he must be n.p.o. until further notice. We will keep the NG tube for his nutrition and medication administration. We may need to explore giving him a PEG tube as he likely cannot go to rehab facility with an NG tube. Blood pressure and hemoglobin are both a bit higher today. He has no new complaints and we continue looking for disposition for him. 03/20/2020 Patient seen and COVID unit again today. Per speech therapy he is still unable to swallow effectively and will continue to require an alternate route of nutrition. I have consulted general surgery to evaluate him for a G-tube for feeding. Patient has also expressed to staff that he would like a feeding tube rather than an NG tube. Labs and vital signs reviewed today. WBC substantially increased to 26.9 and other blood counts are stable. He has no new complaints today. 03/21/2020 Patient seems to be doing well today. He writes out on his notepad for me that he wants a protein shake. I informed him that his recently replaced NG tube will be giving him a protein infusion soon. I consulted general surgery to evaluate him for a PEG tube, however, after speaking to staff, it seems that he is going to be sent to LT[facility] rehab facility which can accept NG tube. As they should be able to take the NG tube at the facility, and it may be best for us to avoid placing a PEG tube at this time given patient is high risk for anesthesia complications due to his compromised respiratory system. He continues to be maintained on trach collar. No new complaints today. Reason For Visit: HYPOXEMIC RESPIRATORY FAILURE, HEMODYNAMIC Physical Exam Vital Signs: Temp Pulse Resp BP Pulse Ox 98.3 F 84 12 152/89 H 100 03/21/20 07:54 03/21/20 08:39 03/21/20 08:39 03/21/20 07:43 03/21/20 08:39 Intake & Output 03/20/20 03/21/20 03/22/20 06:59 06:59 06:59 Intake Total 1300 2137 180 Output Total 525 1350 Balance 775 787 180 Weight 65.8 kg 65.8 kg Exam: General appearance: PRESENT: no acute distress, well-developed, well-nourished, writing messages on his notepad Head exam: PRESENT: atraumatic, normocephalic Eye exam: PRESENT: conjunctiva pink Mouth exam: PRESENT: moist Respiratory exam: PRESENT: clear to auscultation yousif, other - Trach stable. ABSENT: rales, rhonchi, wheezes Cardiovascular exam: PRESENT: RRR. ABSENT: diastolic murmur, rubs, systolic murmur GI/Abdominal exam: PRESENT: normal bowel sounds, soft. ABSENT: distended, guarding, mass, organolmegaly, rebound, tenderness Neurological exam: PRESENT: alert, awake Psychiatric exam: PRESENT: appropriate affect, normal mood Skin exam: PRESENT: dry, intact, warm Results Laboratory Results: 03/21/20 06:22 03/21/20 04:32 03/21/20 03/21/20 03/21/20 04:32 04:32 06:22 WBC Cancelled 22.7 H RBC Cancelled 2.95 L Hgb Cancelled 8.2 L Hct Cancelled 25.7 L MCV Cancelled 87 MCH Cancelled 27.7 MCHC Cancelled 31.8 L RDW Cancelled 17.5 H Plt Count Cancelled 629 H Seg Neutrophils % Cancelled Not Reportable Sodium 143.5 Potassium 4.0 Chloride 101 Carbon Dioxide 37 H Anion Gap 6 BUN 41 H Creatinine 0.67 Est GFR ( Amer) > 60 Glucose 199 H Calcium 8.3 L 07/03/0701/24/20 01/24/20 00:03 00:03 04:20 Creatine Kinase 80 CK-MB (CK-2) 0.63 Troponin I 0.132 0.133 NT-Pro-B Natriuret Pep 23977 H 01/24/20 01/24/20 01/24/20 10:43 17:19 23:06 Creatine Kinase CK-MB (CK-2) Troponin I 0.114 0.079 0.075 NT-Pro-B Natriuret Pep 74903 H 01/30/20 01/31/20 02/01/20 03:45 05:39 06:14 Creatine Kinase CK-MB (CK-2) Troponin I NT-Pro-B Natriuret Pep 28875 H 30288 H 83825 H 02/02/20 02/27/20 02/27/20 04:24 08:12 08:12 Creatine Kinase 33 L CK-MB (CK-2) 2.16 Troponin I 0.013 NT-Pro-B Natriuret Pep 35051 H 02/27/20 02/28/20 02/29/20 08:12 05:44 05:35 Creatine Kinase CK-MB (CK-2) Troponin I NT-Pro-B Natriuret Pep 83781 H 45177 H 71887 H 03/02/20 03/03/20 03/11/20 05:44 05:00 04:33 Creatine Kinase CK-MB (CK-2) Troponin I NT-Pro-B Natriuret Pep 06313 H 77365 H 04309 H 03/13/20 03/15/20 08:40 08:44 Creatine Kinase CK-MB (CK-2) Troponin I NT-Pro-B Natriuret Pep 99552 H 01131 H Impressions: KUB X-Ray 02/23/20 17:08 IMPRESSION: NG tube placement. Modified Barium Swallow 03/19/20 00:00 IMPRESSION: LARYNGEAL PENETRATION AND TRACHEAL ASPIRATION ABOVE. PLEASE SEE SPEECH PATHOLOGIST REPORT FOR OTHER FINDINGS AND RECOMMENDATIONS. Chest X-Ray 03/21/20 00:00 IMPRESSION: Interval improvement. Appropriate position of nasogastric tube. Assessment and Plan - Diagnosis (1) Acute respiratory failure due to severe acute respiratory syndrome coronavirus 2 (SARS-CoV-2) infection Is this a current diagnosis for this admission?: Yes Plan: Per marketing and outreach coordinator: "The patient's current need for mechanical ventilatory support does not appear to be directly related to acute COVID-19 pneumonia. Rather, he has developed acute hypercapnic respiratory failure, which is likely secondary to a combination of airway obstruction with secretions along with muscular weakness. While his prolonged hospitalization and nutritional status are likely to be the primary causes for his weakness, neuromuscular disorder may need to be considered. The patient would best be served by tracheostomy. He does have gram-negative rods growing from tracheal aspirate. This likely ref lects a secondary bacterial infection during the convalescent phase of his COVID-19 pneumonia. Continue aztreonam." 03/18/2020 Initial COVID-19 viral pneumonia later became secondary bacterial pneumonia possibly HAP/VAP versus aspiration pneumonia Transitioned to vancomycin/cefepime to complete course on 03/20 Supplemental oxygen to maintain saturation equal/greaterthan 92% Stable, remains in COVID unit, unable to transfer out as there is no policy for patients coming out of COVID isolation when cover testing is negative (2) Acute hypercapnic respiratory failure Is this a current diagnosis for this admission?: Yes (3) Tracheostomy in place Is this a current diagnosis for this admission?: Yes (4) Acute kidney injury superimposed on chronic kidney disease Is this a current diagnosis for this admission?: Yes (5) COVID-19 Is this a current diagnosis for this admission?: Yes (6) Critical illness polyneuropathy Is this a current diagnosis for this admission?: Yes (7) Pneumonia Qualifiers: Pneumonia type: due to unspecified organism Laterality: bilateral Is this a current diagnosis for this admission?: Yes (8) Sepsis associated hypotension Is this a current diagnosis for this admission?: Yes (9) UTI (urinary tract infection) due to Enterococcus Is this a current diagnosis for this admission?: Yes (10) Hyperlipidemia Qualifiers: Hyperlipidemia type: unspecified Qualified Code(s): E78.5 - Hyperlipidemia, unspecified Is this a current diagnosis for this admission?: Yes (11) Hypertension Is this a current diagnosis for this admission?: Yes (12) Dysphagia Is this a current diagnosis for this admission?: Yes Plan: Patient unable to swallow, failed modified barium swallow, speech therapy recommending n.p.o. and alternate nutrition means General surgery consulted for G-tube/feeding tube placement, will hold off on this for now as patient is a poor candidate for general anesthesia procedures LTAC is able to take NG tube reportedly, possible patient will regain swallowin g ability as his strength improves over time at rehab facility. He could be sent for PEG tube at a later date if this is needed - Plan Summary Summary: Intubated at bedside by Anesthesia; transferred to ICU. - Time Time Spent with patient: 35 or more minutes Medications reviewed and adjusted accordingly: Yes Anticipated Discharge Disposition: Intermediate Care Facility Anticipated Discharge Timeframe: within 72 hours - Inpatient Certification Based on my medical assessment, after consideration of the patient's c omorbidities, presenting symptoms, or acuity I expect that the services needed warrant INPATIENT care.: Yes I certify that my determination is in accordance with my understanding of Medicare's requirements for reasonable and necessary INPATIENT services [42 CFR 412.3e].: Yes Medical Necessity: Failure to Improve With Outpatient Therapy, Significant Comorbidiites Make Outpatient Treatment Too Risky, Risk of Complication if Not Cared For in Hospital, Risk of Diagnosis Which Will Require Inpatient Eval/Care/Monitoring
[2020-03-22] MEDS: MORPHINE SULFATE 10 MG/ML INJ IV PRN ×4 (02:15→20:28)
[2020-03-22] MEDS: INSULIN REG, HUMAN 100 UNIT/ML 3 ML VIAL (PYX) SUBCUT SCH ×4 (06:24→18:24)
[2020-03-22] MEDS: HYDROCORTISONE SOD SUCCINATE INJ/PF 100 MG/2 ML SDV IV SCH ×3 (06:27→23:06)
[2020-03-22] MEDS: ALBUTEROL SULFATE 0.083% NEB 2.5 MG/3 ML AMPUL NEB SCH ×4 (08:22→19:23)
[2020-03-22] MEDS: PANTOPRAZOLE SODIUM 40 MG VIAL IV SCH (09:29)
[2020-03-22] MEDS: INSULIN GLARGINE,HUM.REC.ANLOG 1,000 UNIT/10 ML VIAL SUBCUT SCH (09:30)
[2020-03-22] MEDS: FUROSEMIDE INJ/PF 20 MG/2 ML SDV IV SCH (09:30)
[2020-03-22] MEDS: ASCORBIC ACID 500 MG TABLET PO SCH ×2 (09:30→18:24)
[2020-03-22] MEDS: THIAMINE HCL 100 MG TABLET PO SCH (09:30)
[2020-03-22] MEDS: HYDROMORPHONE HCL INJ/PF 2 MG/ML AMPULE IV PRN (09:52)
[2020-03-22] MEDS: RINGERS SOLUTION,LACTATED 1,000 ML IV PRN (09:53)
--- NOTE | 2020-03-22 14:43 | PDOC PROGRESS REPORT ---
Subjective Subjective:: Patient with an extremely prolonged hospital stay with a very complicated clinical course. Patient reportedly failed extubation multiple times, eventually tracheostomy placed and patient transition to trach collar. Patient treated for acute hypercapnic respiratory failure, critical illness polyneuropathy, COVID-19 pneumonia later tested -03/04, bacterial pneumonia possibly aspiration, sepsis, ZURDO on CKD, UTI. Transferred out of ICU overnight 03/17. 03/18/2020 Patient communicating via writing on a white board, reportedly writing various curse words to nursing staff as well. Other than persistent intermittent brigida rtness of breath and has desire to begin eating food again, he has no new complaints. Labs and vitals reviewed. No new labs specifically today. His COVID test was negative on 03/04. He remains in the COVID unit as we do not have a hospital policy on COVID transition from positive to negative results. Reportedly, discharged to acute rehab facility is being explored though he is not accepted anywhere yet per my understanding. 03/19/2020 Patient had barium swallow today and failed this quite severely according to speech therapy and she states he must be n.p.o. until further notice. We will keep the NG tube for his nutrition and medication administration. We may need to explore giving him a PEG tube as he likely cannot go to rehab facility with an NG tube. Blood pressure and hemoglobin are both a bit higher today. He has no new complaints and we continue looking for disposition for him. 03/20/2020 Patient seen and COVID unit again today. Per speech therapy he is still unable to swallow effectively and will continue to require an alternate route of nutrition. I have consulted general surgery to evaluate him for a G-tube for feeding. Patient has also expressed to staff that he would like a feeding tube rather than an NG tube. Labs and vital signs reviewed today. WBC substantially increased to 26.9 and other blood counts are stable. He has no new complaints today. 03/21/2020 Patient seems to be doing well today. He writes out on his notepad for me that he wants a protein shake. I informed him that his recently replaced NG tube will be giving him a protein infusion soon. I consulted general surgery to evaluate him for a PEG tube, however, after speaking to staff, it seems that he is going to be sent to LTAC rehab facility which can accept NG tube. As they should be able to take the NG tube at the facility, and it may be best for us to avoid placing a PEG tube at this time given patient is high risk for anesthesia complications due to his compromised respiratory system. He continues to be maintained on trach collar. No new complaints today. 03/22/2020 Patient expresses that he very much dislikes his NG tube but also expressed understanding why he needs it. Speech therapy saw him today and has put in for ice chips. I think at this point he would be best served continuing NG tube and working with speech therapy to help him get stronger and more coordinated with his swallowing effort. He is a high surgical risk and I would like to avoid any surgery that we can with him. Labs and vitals reviewed and WBC is a bit lower today. He has no new complaints. They are working on getting him to LTAC. Reason For Visit: HYPOXEMIC RESPIRATORY FAILURE, HEMODYNAMIC Physical Exam Vital Signs: Temp Pulse Resp BP Pulse Ox 97.4 F 101 H 20 147/84 H 100 03/22/20 08:59 03/22/20 13:49 03/22/20 13:49 03/22/20 08:17 03/22/20 13:49 Intake & Output 03/21/20 03/22/20 03/23/20 06:59 06:59 06:59 Intake Total 2137 1455 655 Output Total 1350 550 Balance 787 905 655 Weight 65.8 kg 66.5 kg Exam: General appearance: PRESENT: no acute distress, well-developed, well-nourished, nods head to show he understands the need for his NG tube Head exam: PRESENT: atraumatic, normocephalic Eye exam: PRESENT: conjunctiva pink Mouth exam: PRESENT: moist Respiratory exam: PRESENT: clear to auscultation yousif, other - Trach stable. ABSENT: rales, rhonchi, wheezes Cardiovascular exam: PRESENT: RRR. ABSENT: diastolic murmur, rubs, systolic murmur GI/Abdominal exam: PRESENT: normal bowel sounds, soft. ABSENT: distended, guarding, mass, organolmegaly, rebound, tenderness Neurological exam: PRESENT: alert, awake Psychiatric exam: PRESENT: appropriate affect, normal mood Skin exam: PRESENT: dry, intact, warm Results Laboratory Results: 03/21/20 06:22 03/21/20 04:32 01/24/20 01/24/20 01/24/20 00:03 00:03 04:20 Creatine Kinase 80 CK-MB (CK-2) 0.63 Troponin I 0.132 0.133 NT-Pro-B Natriuret Pep 33273 H 01/24/20 01/24/20 01/24/20 10:43 17:19 23:06 Creatine Kinase CK-MB (CK-2) Troponin I 0.114 0.079 0.075 NT-Pro-B Natriuret Pep 56153 H 01/30/20 01/31/20 02/01/20 03:45 05:39 06:14 Creatine Kinase CK-MB (CK-2) Troponin I NT-Pro-B Natriuret Pep 61151 H 50424 H 15821 H 02/02/20 02/27/20 02/27/20 04:24 08:12 08:12 Creatine Kinase 33 L CK-MB (CK-2) 2.16 Troponin I 0.013 NT-Pro-B Natriuret Pep 03724 H 02/27/20 02/28/20 02/29/20 08:12 05:44 05:35 Creatine Kinase CK-MB (CK-2) Troponin I NT-Pro-B Natriuret Pep 86110 H 99996 H 40924 H 03/02/20 03/03/20 03/11/20 05:44 05:00 04:33 Creatine Kinase CK-MB (CK-2) Troponin I NT-Pro-B Natriuret Pep 31243 H 33973 H 26548 H 03/13/20 03/15/20 08:40 08:44 Creatine Kinase CK-MB (CK-2) Troponin I NT-Pro-B Natriuret Pep 99022 H 33320 H Impressions: KUB X-Ray 02/23/20 17:08 IMPRESSION: NG tube placement. Modified Barium Swallow 03/19/20 00:00 IMPRESSION: LARYNGEAL PENETRATION AND TRACHEAL ASPIRATION ABOVE. PLEASE SEE SPEECH PATHOLOGIST REPORT FOR OTHER FINDINGS AND RECOMMENDATIONS. Chest X-Ray 03/21/20 00:00 IMPRESSION: Interval improvement. Appropriate position of nasogastric tube. Assessment and Plan - Diagnosis (1) Acute respiratory failure due to severe acute respiratory syndrome coronavirus 2 (SARS-CoV-2) infection Is this a current diagnosis for this admission?: Yes Plan: Per sole leveler machine: "The patient's current need for mechanical ventilatory support does not appear to be directly related to acute COVID-19 pneumonia. Rather, he has developed acute hypercapnic respiratory failure, which is likely secondary to a combination of airway obstruction with secretions along with muscular weakness. While his prolonged hospitalization and nutritional status are likely to be the primary causes for his weakness, neuromuscular disorder may need to be considered. The patient would best be served by tracheostomy. He does have gram-negative rods growing from tracheal aspirate. This likely reflects a secondary bacterial infection during the convalescent phase of his C OVID-19 pneumonia. Continue aztreonam." 03/18/2020 Initial COVID-19 viral pneumonia later became secondary bacterial pneumonia possibly HAP/VAP versus aspiration pneumonia Transitioned to vancomycin/cefepime to complete course on 03/20 Supplemental oxygen to maintain saturation equal/greaterthan 92% Stable, remains in COVID unit, unable to transfer out as there is no policy for patients coming out of COVID isolation when cover testing is negative We will need rather extensive rehabilitation to recover from this hospitalization (2) Acute hypercapnic respiratory failure Is this a current diagnosis for this admission?: Yes (3) Tracheostomy in place Is this a current diagnosis for this admission?: Yes (4) Acute kidney injury superimposed on chronic kidney disease Is this a current diagnosis for this admission?: Yes (5) COVID-19 Is this a current diagnosis for this admission?: Yes (6) Critical illness polyneuropathy Is this a current diagnosis for this admission?: Yes (7) Pneumonia Qualifiers: Pneumonia type: due to unspecified organism Laterality: bilateral Is this a current diagnosis for this admission?: Yes (8) Sepsis associated hypotension Is this a current diagnosis for this admission?: Yes (9) UTI (urinary tract infection) due to Enterococcus Is this a current diagnosis for this admission?: Yes (10) Hyperlipidemia Qualifiers: Hyperlipidemia type: unspecified Qualified Code(s): E78.5 - Hyperlipidemia, unspecified Is this a current diagnosis for this admission?: Yes (11) Hypertension Is this a current diagnosis for this admission?: Yes (12) Dysphagia Is this a current diagnosis for this admission?: Yes Plan: Patient unable to swallow, failed modified barium swallow, speech therapy recommending n.p.o. and alternate nutrition means General surgery consulted for G-tube/feeding tube placement, will hold off on this for now as patient is a poor candidate for general anesthesia procedures LTAC is able to take NG tube reportedly, possible patient will regain swa llowing ability as his strength improves over time at rehab facility. He could be sent for PEG tube at a later date if this is needed 03/22/2020 Speech therapy reevaluated the patient and started him on ice chips - Plan Summary Summary: Intubated at bedside by Anesthesia; transferred to ICU. - Time Time Spent with patient: 25-34 minutes Medications reviewed and adjusted accordingly: Yes Anticipated Discharge Disposition: Intermediate Care Facility Anticipated Discharge Timeframe: within 48 hours - Inpatient Certification Based on my medical assessment, after consideration of the patient's comorbidities, presenting symptoms, or acuity I expect that the services needed warrant INPATIENT care.: Yes I certify that my determination is in accordance with my understanding of Medicare's requirements for reasonable and necessary INPATIENT services [42 CFR 412.3e].: Yes Medical Necessity: Significant Comorbidiites Make Outpatient Treatment Too Risky, Need Close Monitoring Due to Risk of Patient Decompensation, Risk of Complication if Not Cared For in Hospital, Risk of Diagnosis Which Will Require Inpatient Eval/Care/Monitoring
[2020-03-23] MEDS: MORPHINE SULFATE 10 MG/ML INJ IV PRN ×3 (00:45→20:05)
[2020-03-23] MEDS: INSULIN REG, HUMAN 100 UNIT/ML 3 ML VIAL (PYX) SUBCUT SCH ×4 (01:07→17:44)
[2020-03-23] MEDS: ALBUTEROL SULFATE 0.083% NEB 2.5 MG/3 ML AMPUL NEB SCH ×5 (01:54→20:24)
[2020-03-23] MEDS: RINGERS SOLUTION,LACTATED 1,000 ML IV PRN (02:26)
[2020-03-23] MEDS: HYDROCORTISONE SOD SUCCINATE INJ/PF 100 MG/2 ML SDV IV SCH (05:25)
[2020-03-23] MEDS: THIAMINE HCL 100 MG TABLET PO SCH (10:28)
[2020-03-23] MEDS: INSULIN GLARGINE,HUM.REC.ANLOG 1,000 UNIT/10 ML VIAL SUBCUT SCH (10:28)
[2020-03-23] MEDS: PANTOPRAZOLE SODIUM 40 MG VIAL IV SCH (10:28)
[2020-03-23] MEDS: ASCORBIC ACID 500 MG TABLET PO SCH ×2 (10:28→17:44)
[2020-03-23] MEDS: FUROSEMIDE INJ/PF 20 MG/2 ML SDV IV SCH (10:28)
[2020-03-23] MEDS: OXYCODONE HCL IR 5 MG TABLET PO PRN ×3 (10:43→23:26)
--- NOTE | 2020-03-23 16:15 | PDOC PROGRESS REPORT ---
Subjective Subjective:: Patient with an extremely prolonged hospital stay with a very complicated clinical course. Patient reportedly failed extubation multiple times, eventually tracheostomy placed and patient transition to trach collar. Patient treated for acute hypercapnic respiratory failure, critical illness polyneuropathy, COVID-19 pneumonia later tested -03/04, bacterial pneumonia possibly aspiration, sepsis, ZURDO on CKD, UTI. Transferred out of ICU overnight 03/17. 03/18/2020 Patient communicating via writing on a white board, reportedly writing various curse words to nursing staff as well. Other than persistent intermittent brigida rtness of breath and has desire to begin eating food again, he has no new complaints. Labs and vitals reviewed. No new labs specifically today. His COVID test was negative on 03/04. He remains in the COVID unit as we do not have a hospital policy on COVID transition from positive to negative results. Reportedly, discharged to acute rehab facility is being explored though he is not accepted anywhere yet per my understanding. 03/19/2020 Patient had barium swallow today and failed this quite severely according to speech therapy and she states he must be n.p.o. until further notice. We will keep the NG tube for his nutrition and medication administration. We may need to explore giving him a PEG tube as he likely cannot go to rehab facility with an NG tube. Blood pressure and hemoglobin are both a bit higher today. He has no new complaints and we continue looking for disposition for him. 03/20/2020 Patient seen and COVID unit again today. Per speech therapy he is still unable to swallow effectively and will continue to require an alternate route of nutrition. I have consulted general surgery to evaluate him for a G-tube for feeding. Patient has also expressed to staff that he would like a feeding tube rather than an NG tube. Labs and vital signs reviewed today. WBC substantially increased to 26.9 and other blood counts are stable. He has no new complaints today. 03/21/2020 Patient seems to be doing well today. He writes out on his notepad for me that he wants a protein shake. I informed him that his recently replaced NG tube will be giving him a protein infusion soon. I consulted general surgery to evaluate him for a PEG tube, however, after speaking to staff, it seems that he is going to be sent to LTAC rehab facility which can accept NG tube. As they should be able to take the NG tube at the facility, and it may be best for us to avoid placing a PEG tube at this time given patient is high risk for anesthesia complications due to his compromised respiratory system. He continues to be maintained on trach collar. No new complaints today. 03/22/2020 Patient expresses that he very much dislikes his NG tube but also expressed understanding why he needs it. Speech therapy saw him today and has put in for ice chips. I think at this point he would be best served continuing NG tube and working with speech therapy to help him get stronger and more coordinated with his swallowing effort. He is a high surgical risk and I would like to avoid any surgery that we can with him. Labs and vitals reviewed and WBC is a bit lower today. He has no new complaints. They are working on getting him to LTAC. 03/23/2020 Patient doing about the same as yesterday. Still remains in the COVID unit. No significant changes on labs and vitals. He continues to have difficulty swallowing and requires an NG tube for nutrition. They are working on getting him to LTAC. He does not want a feeding tube and he writes this out for me on his paper pad today. No new complaints. Reason For Visit: HYPOXEMIC RESPIRATORY FAILURE, HEMODYNAMIC Physical Exam Vital Signs: Temp Pulse Resp BP Pulse Ox 98.1 F 106 H 12 148/86 H 100 03/23/20 11:11 03/23/20 14:00 03/23/20 13:52 03/23/20 11:11 03/23/20 13:52 Intake & Output 03/22/20 03/23/20 03/24/20 06:59 06:59 06:59 Intake Total 1455 2299 415 Output Total 550 1900 500 Balance 905 399 -85 Weight 66.5 kg 66.2 kg Exam: General appearance: PRESENT: no acute distress, well-developed, well-nourished, writes out "they do not want a feeding tube" when we are discussing speech therapy Head exam: PRESENT: atraumatic, normocephalic Eye exam: PRESENT: conjunctiva pink Mouth exam: PRESENT: moist Respiratory exam: PRESENT: clear to auscultation yousif, other - Trach stable. ABSENT: rales, rhonchi, wheezes Cardiovascular exam: PRESENT: RRR. ABSENT: diastolic murmur, rubs, systolic murmur GI/Abdominal exam: PRESENT: normal bowel sounds, soft. ABSENT: distended, guarding, mass, organolmegaly, rebound, tenderness Neurological exam: PRESENT: alert, awake Psychiatric exam: PRESENT: appropriate affect, normal mood Skin exam: PRESENT: dry, intact, warm Results Laboratory Results: 03/21/20 06:22 03/21/20 04:32 01/24/20 01/24/20 01/24/20 00:03 00:03 04:20 Creatine Kinase 80 CK-MB (CK-2) 0.63 Troponin I 0.132 0.133 NT-Pro-B Natriuret Pep 56761 H 01/24/20 01/24/20 01/24/20 10:43 17:19 23:06 Creatine Kinase CK-MB (CK-2) Troponin I 0.114 0.079 0.075 NT-Pro-B Natriuret Pep 70768 H 01/30/20 01/31/20 02/01/20 03:45 05:39 06:14 Creatine Kinase CK-MB (CK-2) Troponin I NT-Pro-B Natriuret Pep 00717 H 30479 H 76930 H 02/02/20 02/27/20 02/27/20 04:24 08:12 08:12 Creatine Kinase 33 L CK-MB (CK-2) 2.16 Troponin I 0.013 NT-Pro-B Natriuret Pep 01435 H 02/27/20 02/28/20 02/29/20 08:12 05:44 05:35 Creatine Kinase CK-MB (CK-2) Troponin I NT-Pro-B Natriuret Pep 63006 H 40125 H 51662 H 03/02/20 03/03/20 03/11/20 05:44 05:00 04:33 Creatine Kinase CK-MB (CK-2) Troponin I NT-Pro-B Natriuret Pep 40429 H 85744 H 42914 H 03/13/20 03/15/20 08:40 08:44 Creatine Kinase CK-MB (CK-2) Troponin I NT-Pro-B Natriuret Pep 66923 H 30045 H Impressions: KUB X-Ray 02/23/20 17:08 IMPRESSION: NG tube placement. Modified Barium Swallow 03/19/20 00:00 IMPRESSION: LARYNGEAL PENETRATION AND TRACHEAL ASPIRATION ABOVE. PLEASE SEE SPEECH PATHOLOGIST REPORT FOR OTHER FINDINGS AND RECOMMENDATIONS. Chest X-Ray 03/21/20 00:00 IMPRESSION: Interval improvement. Appropriate position of nasogastric tube. Assessment and Plan - Diagnosis (1) Acute respiratory failure due to severe acute respiratory syndrome coronavirus 2 (SARS-CoV-2) infection Is this a current diagnosis for this admission?: Yes Plan: Per gem carver: "The patient's current need for mechanical ventilatory support does not appear to be directly related to acute COVID-19 pneumonia. Rather, he has developed acute hypercapnic respiratory failure, which is likely secondary to a combination of airway obstruction with secretions along with muscular weakness. While his prolonged hospitalization and nutritional status are likely to be the primary causes for his weakness, neuromuscular disorder may need to be considered. The patient would best be served by tracheostomy. He does have gram-negative rods growing from tracheal aspirate. This likely reflects a secondary bacterial infection during the convalescent phase of his COVID-19 pneumonia. Continue aztreonam." 03/18/2020 Initial COVID-19 viral pneumonia later became secondary bacterial pneumonia possibly HAP/VAP versus aspiration pneumonia Transitioned to vancomycin/cefepime to complete course on 03/20 Supplemental oxygen to maintain saturation equal/greaterthan 92% Stable, remains in COVID unit, unable to transfer out as there is no policy for patients coming out of COVID isolation when cover testing is negative We will need rather extensive rehabilitation to recover from this hospitalization No significant change (2) Acute hypercapnic respiratory failure Is this a current diagnosis for this admission?: Yes (3) Tracheostomy in place Is this a current diagnosis for this admission?: Yes Plan: Has associated dysphagia, failed modified barium swallow on 03/19 Consider PEG tube Hopefully will be amenable to removal in the future as he recovers from critical illness weakness (4) Acute kidney injury superimposed on chronic kidney disease Is this a current diagnosis for this admission?: Yes (5) COVID-19 Is this a current diagnosis for this admission?: Yes (6) Critical illness polyneuropathy Is this a current diagnosis for this admission?: Yes (7) Pneumonia Qualifiers: Pneumonia type: due to unspecified organism Laterality: bilateral Is this a current diagnosis for this admission?: Yes (8) Sepsis associated hypotension Is this a current diagnosis for this admission?: Yes (9) UTI (urinary tract infection) due to Enterococcus Is this a current diagnosis for this admission?: Yes (10) Hyperlipidemia Qualifiers: Hyperlipidemia type: unspecified Qualified Code(s): E78.5 - Hyperlipidemia, unspecified Is this a current diagnosis for this admission?: Yes (11) Hypertension Is this a current diagnosis for this admission?: Yes (12) Dysphagia Is this a current diagnosis for this admission?: Yes - Plan Summary Summary: Intubated at bedside by Anesthesia; transferred to ICU. - Time Time Spent with patient: 35 or more minutes Medications reviewed and adjusted accordingly: Yes Anticipated Discharge Disposition: Intermediate Care Facility Anticipated Discharge Timeframe: within 72 hours - Inpatient Certification Based on my medical assessment, after consideration of the patient's comorbidities, presenting symptoms, or acuity I expect that the services needed warrant INPATIENT care.: Yes I certify that my determination is in accordance with my understanding of Medicare's requirements for reasonable and necessary INPATIENT services [42 CFR 412.3e].: Yes Medical Necessity: Significant Comorbidiites Make Outpatient Treatment Too Risky, Need Close Monitoring Due to Risk of Patient Decompensation, Risk of Complication if Not Cared For in Hospital, Risk of Diagnosis Which Will Require Inpatient Eval/Care/Monitoring
[2020-03-23] MEDS ORDERED: HYDROCORTISONE SOD SUCCINATE INJ/PF 100 MG/2 ML SDV IV SCH (22:00)
[2020-03-23] MEDS: DEXTROSE 50%-WATER SYRINGE 12.5 GM/25 ML DOSE IV PRN (23:58)
[2020-03-24] MEDS: MORPHINE SULFATE 10 MG/ML INJ IV PRN ×2 (00:01→04:11)
[2020-03-24] MEDS: INSULIN REG, HUMAN 100 UNIT/ML 3 ML VIAL (PYX) SUBCUT SCH ×2 (00:08→06:14)
[2020-03-24] MEDS ORDERED: DIPHENHYDRAMINE HCL 50 MG/ML VIAL ONE (01:46)
[2020-03-24] MEDS: DIPHENHYDRAMINE HCL 50 MG/ML VIAL IV PRN ×3 (01:50→19:58)
[2020-03-24] MEDS: ALBUTEROL SULFATE 0.083% NEB 2.5 MG/3 ML AMPUL NEB SCH ×4 (02:34→21:09)
[2020-03-24] MEDS: OXYCODONE HCL IR 5 MG TABLET PO PRN ×3 (06:17→19:59)
[2020-03-24] MEDS: RINGERS SOLUTION,LACTATED 1,000 ML IV PRN (07:01)
[2020-03-24] MEDS: INSULIN LISPRO 100 UNIT/ML 3 ML VIAL SUBCUT SCH ×4 (09:07→22:25)
[2020-03-24] MEDS: ASCORBIC ACID 500 MG TABLET PO SCH ×2 (09:10→17:24)
[2020-03-24] MEDS: FUROSEMIDE INJ/PF 20 MG/2 ML SDV IV SCH (09:10)
[2020-03-24] MEDS: THIAMINE HCL 100 MG TABLET PO SCH (09:10)
[2020-03-24] MEDS: HYDROCORTISONE SOD SUCCINATE INJ/PF 100 MG/2 ML SDV IV SCH (09:10)
[2020-03-24] MEDS: PANTOPRAZOLE SODIUM 40 MG VIAL IV SCH ×2 (09:11→11:54)
[2020-03-24] MEDS ORDERED: INSULIN GLARGINE,HUM.REC.ANLOG 1,000 UNIT/10 ML VIAL SUBCUT SCH ×2 (10:00)
--- NOTE | 2020-03-24 13:41 | PDOC PROGRESS REPORT ---
Subjective Subjective:: Patient with an extremely prolonged hospital stay with a very complicated clinical course. Patient reportedly failed extubation multiple times, eventually tracheostomy placed and patient transition to trach collar. Patient treated for acute hypercapnic respiratory failure, critical illness polyneuropathy, COVID-19 pneumonia later tested -03/04, bacterial pneumonia possibly aspiration, sepsis, ZURDO on CKD, UTI. Transferred out of ICU overnight 03/17. 03/18/2020 Patient communicating via writing on a white board, reportedly writing various curse words to nursing staff as well. Other than persistent intermittent brigida rtness of breath and has desire to begin eating food again, he has no new complaints. Labs and vitals reviewed. No new labs specifically today. His COVID test was negative on 03/04. He remains in the COVID unit as we do not have a hospital policy on COVID transition from positive to negative results. Reportedly, discharged to acute rehab facility is being explored though he is not accepted anywhere yet per my understanding. 03/19/2020 Patient had barium swallow today and failed this quite severely according to speech therapy and she states he must be n.p.o. until further notice. We will keep the NG tube for his nutrition and medication administration. We may need to explore giving him a PEG tube as he likely cannot go to rehab facility with an NG tube. Blood pressure and hemoglobin are both a bit higher today. He has no new complaints and we continue looking for disposition for him. 03/20/2020 Patient seen and COVID unit again today. Per speech therapy he is still unable to swallow effectively and will continue to require an alternate route of nutrition. I have consulted general surgery to evaluate him for a G-tube for feeding. Patient has also expressed to staff that he would like a feeding tube rather than an NG tube. Labs and vital signs reviewed today. WBC substantially increased to 26.9 and other blood counts are stable. He has no new complaints today. 03/21/2020 Patient seems to be doing well today. He writes out on his notepad for me that he wants a protein shake. I informed him that his recently replaced NG tube will be giving him a protein infusion soon. I consulted general surgery to evaluate him for a PEG tube, however, after speaking to staff, it seems that he is going to be sent to LTAC rehab facility which can accept NG tube. As they should be able to take the NG tube at the facility, and it may be best for us to avoid placing a PEG tube at this time given patient is high risk for anesthesia complications due to his compromised respiratory system. He continues to be maintained on trach collar. No new complaints today. 03/22/2020 Patient expresses that he very much dislikes his NG tube but also expressed understanding why he needs it. Speech therapy saw him today and has put in for ice chips. I think at this point he would be best served continuing NG tube and working with speech therapy to help him get stronger and more coordinated with his swallowing effort. He is a high surgical risk and I would like to avoid any surgery that we can with him. Labs and vitals reviewed and WBC is a bit lower today. He has no new complaints. They are working on getting him to LTAC. 03/23/2020 Patient doing about the same as yesterday. Still remains in the COVID unit. No significant changes on labs and vitals. He continues to have difficulty swallowing and requires an NG tube for nutrition. They are working on getting him to LTAC. He does not want a feeding tube and he writes this out for me on his paper pad today. No new complaints. 03/24/2020 No significant changes clinically. Patient will need to continue physical therapy and speech therapy for an extended period of time. We are currently waiting on him to get accepted at an acute care facility. He has no new complaints today. We will remove his Varner and try using a condom catheter. Reason For Visit: HYPOXEMIC RESPIRATORY FAILURE, HEMODYNAMIC Physical Exam Vital Signs: Temp Pulse Resp BP Pulse Ox 97.9 F 87 16 116/64 100 03/24/20 07:21 03/24/20 08:33 03/24/20 08:33 03/24/20 08:33 03/24/20 08:33 Intake & Output 03/23/20 03/24/20 03/25/20 06:59 06:59 06:59 Intake Total 2299 2673 60 Output Total 1900 1900 Balance 399 773 60 Weight 66.2 kg 68.9 kg Results Laboratory Results: 03/21/20 06:22 03/21/20 04:32 01/24/20 01/24/20 01/24/20 00:03 00:03 04:20 Creatine Kinase 80 CK-MB (CK-2) 0.63 Troponin I 0.132 0.133 NT-Pro-B Natriuret Pep 62784 H 01/24/20 01/24/20 01/24/20 10:43 17:19 23:06 Creatine Kinase CK-MB (CK-2) Troponin I 0.114 0.079 0.075 NT-Pro-B Natriuret Pep 66443 H 01/30/20 01/31/20 02/01/20 03:45 05:39 06:14 Creatine Kinase CK-MB (CK-2) Troponin I NT-Pro-B Natriuret Pep 54722 H 02576 H 45732 H 02/02/20 02/27/20 02/27/20 04:24 08:12 08:12 Creatine Kinase 33 L CK-MB (CK-2) 2.16 Troponin I 0.013 NT-Pro-B Natriuret Pep 10919 H 02/27/20 02/28/20 02/29/20 08:12 05:44 05:35 Creatine Kinase CK-MB (CK-2) Troponin I NT-Pro-B Natriuret Pep 65775 H 89240 H 83750 H 03/02/20 03/03/20 03/11/20 05:44 05:00 04:33 Creatine Kinase CK-MB (CK-2) Troponin I NT-Pro-B Natriuret Pep 04905 H 02297 H 63322 H 03/13/20 03/15/20 08:40 08:44 Creatine Kinase CK-MB (CK-2) Troponin I NT-Pro-B Natriuret Pep 63586 H 22845 H Impressions: KUB X-Ray 02/23/20 17:08 IMPRESSION: NG tube placement. Modified Barium Swallow 03/19/20 00:00 IMPRESSION: LARYNGEAL PENETRATION AND TRACHEAL ASPIRATION ABOVE. PLEASE SEE SPEECH PATHOLOGIST REPORT FOR OTHER FINDINGS AND RECOMMENDATIONS. Chest X-Ray 03/21/20 00:00 IMPRESSION: Interval improvement. Appropriate position of nasogastric tube. Assessment and Plan - Diagnosis (1) Acute respiratory failure due to severe acute respiratory syndrome coronavirus 2 (SARS-CoV-2) infection Is this a current diagnosis for this admission?: Yes Plan: Per fisher lampara net: "The patient's current need for mechanical ventilatory support does not appear to be directly related to acute COVID-19 pneumonia. Rather, he has developed acute hypercapnic respiratory failure, which is likely secondary to a combination of airway obstruction with secretions along with muscular weakness. While his prolonged hospitalization and nutritional status are likely to be the primary causes for his weakness, neuromuscular disorder may need to be considered. The patient would best be served by tracheostomy. He does have gram-negative rods growing from tracheal aspirate. This likely reflects a secondary bacterial infection during the convalescent phase of his COVID-19 pneumonia. Continue aztreonam." 03/18/2020 Initial COVID-19 viral pneumonia later became secondary bacterial pneumonia possibly HAP/VAP versus aspiration pneumonia Transitioned to vancomycin/cefepime to complete course on 03/20 Supplemental oxygen to maintain saturation equal/greaterthan 92% Stable, remains in COVID unit, unable to transfer out as there is no policy for patients coming out of COVID isolation when cover testing is negative We will need rather extensive rehabilitation to recover from this hospitalization No significant change Stable (2) Acute hypercapnic respiratory failure Is this a current diagnosis for this admission?: Yes (3) Tracheostomy in place Is this a current diagnosis for this admission?: Yes (4) Acute kidney injury superimposed on chronic kidney disease Is this a current diagnosis for this admission?: Yes (5) COVID-19 Is this a current diagnosis for this admission?: Yes (6) Critical illness polyneuropathy Is this a current diagnosis for this admission?: Yes (7) Pneumonia Qualifiers: Pneumonia type: due to unspecified organism Laterality: bilateral Is this a current diagnosis for this admission?: Yes (8) Sepsis associated hypotension Is this a current diagnosis for this admission?: Yes (9) UTI (urinary tract infection) due to Enterococcus Is this a current diagnosis for this admission?: Yes (10) Hyperlipidemia Qualifiers: Hyperlipidemia type: unspecified Qualified Code(s): E78.5 - Hyperlipidemia, unspecified Is this a current diagnosis for this admission?: Yes (11) Hypertension Is this a current diagnosis for this admission?: Yes (12) Dysphagia Is this a current diagnosis for this admission?: Yes - Plan Summary Summary: Intubated at bedside by Anesthesia; transferred to ICU. - Time Time Spent with patient: 25-34 minutes Medications reviewed and adjusted accordingly: Yes Anticipated Discharge Disposition: Intermediate Care Facility Anticipated Discharge Timeframe: within 48 hours - Inpatient Certification Based on my medical assessment, after consideration of the patient's comorbidit ies, presenting symptoms, or acuity I expect that the services needed warrant INPATIENT care.: Yes I certify that my determination is in accordance with my understanding of Me ben's requirements for reasonable and necessary INPATIENT services [42 CFR 412.3e].: Yes Medical Necessity: Significant Comorbidiites Make Outpatient Treatment Too Risky, Need Close Monitoring Due to Risk of Patient Decompensation, Risk of Complication if Not Cared For in Hospital, Risk of Diagnosis Which Will Require Inpatient Eval/Care/Monitoring
--- NOTE | 2020-03-24 21:55 | RADIOLOGY REPORT (SQ) ---
EXAM DESCRIPTION: XR CHEST 1 VIEW COMPLETED DATE/TME: 03/24/2020 00:00 CLINICAL HISTORY: 60 years, Male, ng tube moved significantly EXAM DESCRIPTION: CLINICAL HISTORY: ng tube moved significantly COMPARISON: November 19, 2019 FINDINGS: Single view of the chest is submitted. Cardiac silhouette is mildly enlarged. Tracheostomy is present. Cervical spine hardware is present. Apparent NG tube tip is at the level of the tracheostomy. Repositioning is recommended. There is consolidation in both lungs with scattered atelectasis and mild pulmonary edema bilaterally. IMPRESSION: Apparent NG tube tip is at the level of the tracheostomy and repositioning is recommended. Bilateral consolidations and atelectasis.
[2020-03-24] MEDS: GLUCAGON,HUMAN RECOMB 1 MG INJ IM PRN (23:05)
[2020-03-24 23:15] LABS: ARTERIAL BLOOD BASE EXCESS 11.9 mmol/L; ARTERIAL BLOOD FIO2 40%; ARTERIAL BLOOD H2CO3 1.57 mmol/L (1.05-1.35); ARTERIAL BLOOD O2 SATURATION 95.5 % (94-98); ARTERIAL BLOOD PCO2 52.2 mmHg (35-45); ARTERIAL BLOOD PH 7.47 (7.35-7.45); ARTERIAL BLOOD PO2 74.9 mmHg (80-100); ARTERIAL BLOOD TOTAL CO2 38.6 mmol/L (23-27)
--- NOTE | 2020-03-25 01:54 | RADIOLOGY REPORT (SQ) ---
EXAM DESCRIPTION: XR ABDOMEN 1 VIEW (KUB) COMPLETED DATE/TME: 03/25/2020 00:00 CLINICAL HISTORY: 60 years Male ,ng placement COMPARISON: None. TECHNIQUE: Single view of the abdomen was provided.. FINDINGS: No free air. Nasogastric tube in the gastric body. Distention of loops of small bowel in the left upper quadrant suggesting partial obstruction. Infiltrates in the lung bases left greater than right. IMPRESSION: Nasogastric tube in the stomach Dilated loops of small bowel which may reflect obstruction Basilar infiltrates
[2020-03-25] MEDS: ALBUTEROL SULFATE 0.083% NEB 2.5 MG/3 ML AMPUL NEB SCH ×4 (02:28→19:52)
[2020-03-25] MEDS: RINGERS SOLUTION,LACTATED 1,000 ML IV PRN (03:49)
[2020-03-25] MEDS: ONDANSETRON HCL INJ/PF 4 MG/2 ML SDV IV PRN (06:00)
[2020-03-25] MEDS: DIPHENHYDRAMINE HCL 50 MG/ML VIAL IV PRN ×2 (06:00→21:37)
[2020-03-25] MEDS: OXYCODONE HCL IR 5 MG TABLET PO PRN ×3 (06:27→21:36)
[2020-03-25] MEDS: INSULIN LISPRO 100 UNIT/ML 3 ML VIAL SUBCUT SCH ×4 (08:10→21:37)
[2020-03-25 09:09] LABS: ABSOLUTE EOSINOPHILS # (AUTO) 0.4 10^3/uL (0.0-0.6); ABSOLUTE LYMPHOCYTES (AUTO) 1.3 10^3/uL (0.5-4.7); ABSOLUTE MONOCYTES (AUTO) 1.3 10^3/uL (0.1-1.4); ABSOLUTE NEUT (AUTO) 15.1 10^3/uL (1.7-8.2); BASOPHILS % (AUTO) 0.2 % (0-2); HEMATOCRIT 23.6 % (37.9-51.0); MEAN CORPUSCULAR HEMOGLOBIN 28.3 pg (27.0-33.4); MEAN CORPUSCULAR HGB CONC 32.5 g/dL (32.0-36.0); MEAN CORPUSCULAR VOLUME 87 fl (80-97); MONOCYTES % (AUTO) 7.2 % (3-13); PLATELET COUNT 410 10^3/uL (150-450); RED BLOOD COUNT 2.71 10^6/uL (4.35-5.55); RED CELL DISTRIBUTION WIDTH 18.1 % (11.5-14.0); SEGMENTED NEUTROPHILS % (AUTO) 83.6 % (42-78); TOTAL CELLS COUNTED % (AUTO) 100 %; WHITE BLOOD COUNT 18.1 10^3/uL (4.0-10.5)
[2020-03-25 09:12] LABS: HEMOGLOBIN 7.7 g/dL (13.5-17.0)
[2020-03-25 09:25] LABS: ALBUMIN 2.3 g/dL (3.5-5.0); ALKALINE PHOSPHATASE 94 U/L (38-126); ASPARTATE AMINO TRANSFERASE 28 U/L (17-59); BILIRUBIN,DIRECT 0.3 mg/dL (0.0-0.4); BILIRUBIN,TOTAL 0.4 mg/dL (0.2-1.3); BLOOD UREA NITROGEN 35 mg/dL (7-20); CALCIUM 8.1 mg/dL (8.4-10.2); CARBON DIOXIDE 37 mmol/L (22-30); CHLORIDE 97 mmol/L (98-107); GLUCOSE 111 mg/dL (75-110); POTASSIUM 3.5 mmol/L (3.6-5.0); TOTAL PROTEIN 5.2 g/dL (6.3-8.2)
[2020-03-25 09:26] LABS: ANION GAP 2 (5-19)
[2020-03-25] MEDS ORDERED: INSULIN GLARGINE,HUM.REC.ANLOG 1,000 UNIT/10 ML VIAL (PYX) SUBCUT ONE (09:30)
[2020-03-25] MEDS: ASCORBIC ACID 500 MG TABLET PO SCH ×2 (09:54→18:14)
[2020-03-25] MEDS: ENOXAPARIN SODIUM INJ 40 MG/0.4 ML DISP.SYRIN SUBCUT SCH (09:54)
[2020-03-25] MEDS: THIAMINE HCL 100 MG TABLET PO SCH (09:54)
[2020-03-25] MEDS: FUROSEMIDE INJ/PF 20 MG/2 ML SDV IV SCH (09:54)
[2020-03-25] MEDS: PANTOPRAZOLE SODIUM 40 MG VIAL IV SCH (09:54)
[2020-03-25] MEDS: HYDROCORTISONE SOD SUCCINATE INJ/PF 100 MG/2 ML SDV IV SCH (09:55)
[2020-03-25] MEDS ORDERED: BISACODYL 5 MG TABEC PO PRN (12:58)
[2020-03-25] MEDS ORDERED: BISACODYL 10 MG SUPP.RECT PR PRN (12:58)
--- NOTE | 2020-03-25 13:24 | PDOC PROGRESS REPORT ---
Subjective Subjective:: Patient with an extremely prolonged hospital stay with a very complicated clinical course. Patient reportedly failed extubation multiple times, eventually tracheostomy placed and patient transition to trach collar. Patient treated for acute hypercapnic respiratory failure, critical illness polyneuropathy, COVID-19 pneumonia later tested -03/04, bacterial pneumonia possibly aspiration, sepsis, ZURDO on CKD, UTI. Transferred out of ICU overnight 03/17. 03/18/2020 Patient communicating via writing on a white board, reportedly writing various curse words to nursing staff as well. Other than persistent intermittent brigida rtness of breath and has desire to begin eating food again, he has no new complaints. Labs and vitals reviewed. No new labs specifically today. His COVID test was negative on 03/04. He remains in the COVID unit as we do not have a hospital policy on COVID transition from positive to negative results. Reportedly, discharged to acute rehab facility is being explored though he is not accepted anywhere yet per my understanding. 03/19/2020 Patient had barium swallow today and failed this quite severely according to speech therapy and she states he must be n.p.o. until further notice. We will keep the NG tube for his nutrition and medication administration. We may need to explore giving him a PEG tube as he likely cannot go to rehab facility with an NG tube. Blood pressure and hemoglobin are both a bit higher today. He has no new complaints and we continue looking for disposition for him. 03/20/2020 Patient seen and COVID unit again today. Per speech therapy he is still unable to swallow effectively and will continue to require an alternate route of nutrition. I have consulted general surgery to evaluate him for a G-tube for feeding. Patient has also expressed to staff that he would like a feeding tube rather than an NG tube. Labs and vital signs reviewed today. WBC substantially increased to 26.9 and other blood counts are stable. He has no new complaints today. 03/21/2020 Patient seems to be doing well today. He writes out on his notepad for me that he wants a protein shake. I informed him that his recently replaced NG tube will be giving him a protein infusion soon. I consulted general surgery to evaluate him for a PEG tube, however, after speaking to staff, it seems that he is going to be sent to LTAC rehab facility which can accept NG tube. As they should be able to take the NG tube at the facility, and it may be best for us to avoid placing a PEG tube at this time given patient is high risk for anesthesia complications due to his compromised respiratory system. He continues to be maintained on trach collar. No new complaints today. 03/22/2020 Patient expresses that he very much dislikes his NG tube but also expressed understanding why he needs it. Speech therapy saw him today and has put in for ice chips. I think at this point he would be best served continuing NG tube and working with speech therapy to help him get stronger and more coordinated with his swallowing effort. He is a high surgical risk and I would like to avoid any surgery that we can with him. Labs and vitals reviewed and WBC is a bit lower today. He has no new complaints. They are working on getting him to LTAC. 03/23/2020 Patient doing about the same as yesterday. Still remains in the COVID unit. No significant changes on labs and vitals. He continues to have difficulty swallowing and requires an NG tube for nutrition. They are working on getting him to LTAC. He does not want a feeding tube and he writes this out for me on his paper pad today. No new complaints. 03/24/2020 No significant changes clinically. Patient will need to continue physical therapy and speech therapy for an extended period of time. We are currently waiting on him to get accepted at an acute care facility. He has no new complaints today. We will remove his Varner and try using a condom catheter. 03/25/2020 Overnight, patient pulled out his own NG tube and was without tube feeds for approximately 4 to 6 hours while this was being replaced and verified with imaging. As a direct result of this, his blood sugar dropped into the 20s because he was still getting long-acting insulin but not getting any continuous nutrition as he had been the previous days. Patient had an EKG done today and it did not show any acute changes specifically concerning for ischemia, WBC is trending down, electrolytes are stable, and troponin is within normal limits. Patient also denies having any chest pain or additional shortness of breath today. I discussed with nursing that I would like speech therapy to reevaluate his swallowing ability after his NG tube has been removed as this can cause gagging and complicate the swallowing process. If he fails that test, NG tube can of course be replaced. Patient states he is felt quite poorly since his blood sugar was in the 20s this morning but he seems to be getting better from this. Otherwise he has no new complaints. We await LTAC placement. KUB showed possible obstruction/constipation but he has multiple documented bowel moveme nts. Added bowel regimen with scheduled lactulose and PRN Dulcolax. He may also benefit from increasing free water that we put through his NG tube. Reason For Visit: HYPOXEMIC RESPIRATORY FAILURE, HEMODYNAMIC Physical Exam Vital Signs: Temp Pulse Resp BP Pulse Ox 97.6 F 106 H 13 113/63 100 03/25/20 10:00 03/25/20 08:13 03/25/20 08:13 03/25/20 05:42 03/25/20 08:13 Intake & Output 03/24/20 03/25/20 03/26/20 06:59 06:59 06:59 Intake Total 2673 2003 60 Output Total 1900 1200 Balance 773 803 60 Weight 68.9 kg 68.5 kg Exam: General appearance: PRESENT: no acute distress, well-developed, well-nourished, states he feels quite poorly today ever since his blood sugar was low Head exam: PRESENT: atraumatic, normocephalic Eye exam: PRESENT: conjunctiva pink Mouth exam: PRESENT: moist Respiratory exam: PRESENT: clear to auscultation yousif, other - Trach stable. ABSENT: rales, rhonchi, wheezes Cardiovascular exam: PRESENT: RRR. ABSENT: diastolic murmur, rubs, systolic murmur GI/Abdominal exam: PRESENT: normal bowel sounds, soft. ABSENT: distended, guarding, mass, organolmegaly, rebound, tenderness Neurological exam: PRESENT: alert, awake Psychiatric exam: PRESENT: appropriate affect, normal mood Skin exam: PRESENT: dry, intact, warm Results Laboratory Results: 03/25/20 08:40 03/25/20 08:40 03/24/20 03/25/20 03/25/20 23:00 08:40 08:40 WBC 18.1 H RBC 2.71 L Hgb 7.7 L Hct 23.6 L MCV 87 MCH 28.3 MCHC 32.5 RDW 18.1 H Plt Count 410 Seg Neutrophils % 83.6 H Carbonic Acid 1.57 H HCO3/H2CO3 Ratio 23:1 ABG pH 7.47 H ABG pCO2 52.2 H ABG pO2 74.9 L ABG HCO3 37.0 H ABG O2 Saturation 95.5 ABG Base Excess 11.9 FiO2 40% Sodium 136.3 L Potassium 3.5 L Chloride 97 L Carbon Dioxide 37 H Anion Gap 2 L BUN 35 H Creatinine 0.65 Est GFR ( Amer) > 60 Glucose 111 H Calcium 8.1 L Total Bilirubin 0.4 AST 28 Alkaline Phosphatase 94 Total Protein 5.2 L Albumin 2.3 L 01/24/20 01/24/20 01/24/20 00:03 00:03 04:20 Creatine Kinase 80 CK-MB (CK-2) 0.63 Troponin I 0.132 0.133 NT-Pro-B Natriuret Pep 80894 H 01/24/20 01/24/20 01/24/20 10:43 17:19 23:06 Creatine Kinase CK-MB (CK-2) Troponin I 0.114 0.079 0.075 NT-Pro-B Natriuret Pep 30463 H 01/30/20 01/31/20 02/01/20 03:45 05:39 06:14 Creatine Kinase CK-MB (CK-2) Troponin I NT-Pro-B Natriuret Pep 91851 H 48216 H 58253 H 02/02/20 02/27/20 02/27/20 04:24 08:12 08:12 Creatine Kinase 33 L CK-MB (CK-2) 2.16 Troponin I 0.013 NT-Pro-B Natriuret Pep 25478 H 02/27/20 02/28/20 02/29/20 08:12 05:44 05:35 Creatine Kinase CK-MB (CK-2) Troponin I NT-Pro-B Natriuret Pep 82677 H 20707 H 92789 H 03/02/20 03/03/20 03/11/20 05:44 05:00 04:33 Creatine Kinase CK-MB (CK-2) Troponin I NT-Pro-B Natriuret Pep 92515 H 11831 H 60777 H 03/13/20 03/15/20 03/25/20 08:40 08:44 08:40 Creatine Kinase CK-MB (CK-2) Troponin I 0.020 NT-Pro-B Natriuret Pep 28286 H 58791 H Impressions: Modified Barium Swallow 03/19/20 00:00 IMPRESSION: LARYNGEAL PENETRATION AND TRACHEAL ASPIRATION ABOVE. PLEASE SEE SPEECH PATHOLOGIST REPORT FOR OTHER FINDINGS AND RECOMMENDATIONS. Chest X-Ray 03/24/20 00:00 IMPRESSION: Apparent NG tube tip is at the level of the tracheostomy and repositioning is recommended. Bilateral consolidations and atelectasis. KUB X-Ray 03/25/20 00:00 IMPRESSION: Nasogastric tube in the stomach Dilated loops of small bowel which may reflect obstruction Basilar infiltrates Assessment and Plan - Diagnosis (1) Acute respiratory failure due to severe acute respiratory syndrome coronavirus 2 (SARS-CoV-2) infection Is this a current diagnosis for this admission?: Yes (2) Acute hypercapnic respiratory failure Is this a current diagnosis for this admission?: Yes (3) Tracheostomy in place Is this a current diagnosis for this admission?: Yes (4) Acute kidney injury superimposed on chronic kidney disease Is this a current diagnosis for this admission?: Yes (5) COVID-19 Is this a current diagnosis for this admission?: Yes (6) Critical illness polyneuropathy Is this a current diagnosis for this admission?: Yes (7) Pneumonia Qualifiers: Pneumonia type: due to unspecified organism Laterality: bilateral Is this a current diagnosis for this admission?: Yes (8) Sepsis associated hypotension Is this a current diagnosis for this admission?: Yes (9) UTI (urinary tract infection) due to Enterococcus Is this a current diagnosis for this admission?: Yes (10) Hyperlipidemia Qualifiers: Hyperlipidemia type: unspecified Qualified Code(s): E78.5 - Hyperlipidemia, unspecified Is this a current diagnosis for this admission?: Yes (11) Hypertension Is this a current diagnosis for this admission?: Yes (12) Dysphagia Is this a current diagnosis for this admission?: Yes Plan: Patient unable to swallow, failed modified barium swallow, speech therapy recommending n.p.o. and alternate nutrition means General surgery consulted for G-tube/feeding tube placement, will hold off on this for now as patient is a poor candidate for general anesthesia procedures LTAC is able to take NG tube reportedly, possible patient will regain swallowing ability as his strength improves over time at rehab facility. He could be sent for PEG tube at a later date if this is needed 03/22/2020 Speech therapy reevaluated the patient and started him on ice chips 03/25/2020 Stopped IV fluids and started free water flushes every 4 hours, much more beneficial to use the gut for water absorption then simply using IV fluids. (13) Hypoglycemia Is this a current diagnosis for this admission?: Yes Plan: Blood sugar down to the 20s overnight 03/24 1 patient pulled out his NG tube and tube feeding was interrupted for approximately 6 hours after he had already gotten his Lantus for the day Hypoglycemia protocol followed Holding long-acting insulin temporarily - Plan Summary Summary: Intubated at bedside by Anesthesia; transferred to ICU. - Time Time Spent with patient: 35 or more minutes Medications reviewed and adjusted accordingly: Yes Anticipated Discharge Disposition: Intermediate Care Facility Anticipated Discharge Timeframe: within 48 hours - Inpatient Certification Based on my medical assessment, after consideration of the patient's comorbidities, presenting symptoms, or acuity I expect that the services needed warrant INPATIENT care.: Yes I certify that my determination is in accordance with my understanding of Medicare's requirements for reasonable and necessary INPATIENT services [42 CFR 412.3e].: Yes Medical Necessity: Significant Comorbidiites Make Outpatient Treatment Too Risky, Need Close Monitoring Due to Risk of Patient Decompensation, Risk of Complication if Not Cared For in Hospital, Risk of Diagnosis Which Will Require Inpatient Eval/Care/Monitoring
[2020-03-25] MEDS: LACTULOSE SYRUP 20 GM/30 ML UDCUP PO SCH (21:36)
[2020-03-26] MEDS ORDERED: ACETAMINOPHEN 325 MG TABLET PO ONE (02:15)
[2020-03-26] MEDS: ALBUTEROL SULFATE 0.083% NEB 2.5 MG/3 ML AMPUL NEB SCH ×4 (02:24→21:15)
[2020-03-26] MEDS: OXYCODONE HCL IR 5 MG TABLET PO PRN ×2 (05:55→20:23)
[2020-03-26] MEDS: DIPHENHYDRAMINE HCL 50 MG/ML VIAL IV PRN (07:04)
[2020-03-26] MEDS: INSULIN LISPRO 100 UNIT/ML 3 ML VIAL SUBCUT SCH ×4 (08:28→22:30)
--- NOTE | 2020-03-26 08:50 | EKG REPORT ---
SEVERITY:- ABNORMAL ECG - SINUS RHYTHM PROBABLE LEFT ATRIAL ABNORMALITY CONSIDER ANTEROSEPTAL INFARCT NONSPECIFIC T ABNORMALITIES, LATERAL LEADS : Confirmed by: Mitesh Matta MD 26-Mar-2020 08:49:43
[2020-03-26] MEDS: ASCORBIC ACID 500 MG TABLET PO SCH ×2 (11:14→18:35)
[2020-03-26] MEDS: THIAMINE HCL 100 MG TABLET PO SCH (11:14)
[2020-03-26] MEDS: ENOXAPARIN SODIUM INJ 40 MG/0.4 ML DISP.SYRIN SUBCUT SCH (11:15)
[2020-03-26] MEDS: FUROSEMIDE INJ/PF 20 MG/2 ML SDV IV SCH (11:15)
[2020-03-26] MEDS: PANTOPRAZOLE SODIUM 40 MG VIAL IV SCH (11:15)
[2020-03-26] MEDS: LACTULOSE SYRUP 20 GM/30 ML UDCUP PO SCH ×2 (11:15→22:30)
[2020-03-26] MEDS: HYDROCORTISONE SOD SUCCINATE INJ/PF 100 MG/2 ML SDV IV SCH (11:16)
[2020-03-26] MEDS: INSULIN GLARGINE,HUM.REC.ANLOG 1,000 UNIT/10 ML VIAL SUBCUT SCH (11:45)
--- NOTE | 2020-03-26 16:06 | PDOC PROGRESS REPORT ---
Subjective Progress Note for:: 03/26/20 Subjective:: This morning, patient is very comfortable in bed. He complains that the NG tube is uncomfortable. He would like it to be removed. I explained to him that this is the only way to give him nutrition he has not been able to swallow. He states that he feels that his swelling improves or he has been able to swallow the ice. He has been doing the swallow exercises. His communication is done via writing on a board. He denies shortness of breath or any pains. Reason For Visit: HYPOXEMIC RESPIRATORY FAILURE, HEMODYNAMIC Physical Exam Vital Signs: Temp Pulse Resp BP Pulse Ox 98.1 F 104 H 18 138/80 H 100 03/26/20 08:40 03/26/20 09:10 03/26/20 09:10 03/26/20 05:55 03/26/20 11:53 Intake & Output 03/25/20 03/26/20 03/27/20 06:59 06:59 06:59 Intake Total 2002 1489 10 Output Total 1200 1350 Balance 803 139 10 Weight 68.5 kg 68.5 kg General appearance: PRESENT: no acute distress, cooperative. ABSENT: mild distress, morbidly obese Head exam: PRESENT: normocephalic Eye exam: PRESENT: EOMI Neck exam: ABSENT: JVD Respiratory exam: PRESENT: rales - mild, symmetrical, unlabored. ABSENT: accessory muscle use, retraction, stridor, tachypnea, wheezes Cardiovascular exam: PRESENT: RRR, +S1, +S2. ABSENT: tachycardia GI/Abdominal exam: PRESENT: soft. ABSENT: rebound, rigid, tenderness Extremities exam: ABSENT: calf tenderness Neurological exam: PRESENT: alert, awake, oriented to person, oriented to place, oriented to time Psychiatric exam: ABSENT: agitated, anxious Results Laboratory Results: 03/25/20 08:40 03/25/20 08:40 01/24/20 01/24/20 01/24/20 00:03 00:03 04:20 Creatine Kinase 80 CK-MB (CK-2) 0.63 Troponin I 0.132 0.133 NT-Pro-B Natriuret Pep 36461 H 01/24/20 01/24/20 01/24/20 10:43 17:19 23:06 Creatine Kinase CK-MB (CK-2) Troponin I 0.114 0.079 0.075 NT-Pro-B Natriuret Pep 64860 H 01/30/20 01/31/20 02/01/20 03:45 05:39 06:14 Creatine Kinase CK-MB (CK-2) Troponin I NT-Pro-B Natriuret Pep 66674 H 53895 H 73353 H 02/02/20 02/27/20 02/27/20 04:24 08:12 08:12 Creatine Kinase 33 L CK-MB (CK-2) 2.16 Troponin I 0.013 NT-Pro-B Natriuret Pep 02062 H 02/27/20 02/28/20 02/29/20 08:12 05:44 05:35 Creatine Kinase CK-MB (CK-2) Troponin I NT-Pro-B Natriuret Pep 40106 H 20609 H 24802 H 03/02/20 03/03/20 03/11/20 05:44 05:00 04:33 Creatine Kinase CK-MB (CK-2) Troponin I NT-Pro-B Natriuret Pep 46983 H 82370 H 54823 H 03/13/20 03/15/20 03/25/20 08:40 08:44 08:40 Creatine Kinase CK-MB (CK-2) Troponin I 0.020 NT-Pro-B Natriuret Pep 38840 H 30735 H Impressions: Modified Barium Swallow 03/19/20 00:00 IMPRESSION: LARYNGEAL PENETRATION AND TRACHEAL ASPIRATION ABOVE. PLEASE SEE SPEECH PATHOLOGIST REPORT FOR OTHER FINDINGS AND RECOMMENDATIONS. Chest X-Ray 03/24/20 00:00 IMPRESSION: Apparent NG tube tip is at the level of the tracheostomy and repositioning is recommended. Bilateral consolidations and atelectasis. KUB X-Ray 03/25/20 00:00 IMPRESSION: Nasogastric tube in the stomach Dilated loops of small bowel which may reflect obstruction Basilar infiltrates Assessment and Plan - Diagnosis (1) Acute respiratory failure due to severe acute respiratory syndrome salcedo virus 2 (SARS-CoV-2) infection Is this a current diagnosis for this admission?: Yes Plan: Significant hypoxic/hypercarbic respiratory failure secondary to COVID-19 pneumonia. Required prolonged intubation and mechanical ventilation and eventually had to get Tracheostomy done on 03/14/2020 by ENT. Currently conducting vent weaning trials to trach collar. He has actually been on trach collar for the past 2 days now at 40% FiO2 and 9L this morning. Has done well on this. However, this afternoon we had to place patient back on mechanical ventilator intermittently as he was seeming to fatigue and get more tachypneic. Appeared comfortable subsequently. I feel that, at this point, patient is able to tolerate long hours on trach collar but may occasionally need to be vented on some nights if notably fatigued. I will leave him on mechanical ventilator for some hours or possibly the rest of today and put him back on trach collar again tomorrow morning. (2) Dysphagia Qualifiers: Dysphagia type: oropharyngeal phase Qualified Code(s): R13.12 - Dysphagia, oropharyngeal phase Is this a current diagnosis for this admission?: Yes Plan: Secondary to prolonged intubation. Failed previous MB BS on 03/19/2020. Patient is adamant that his swallowing has improved. Discussed with speech pathologist and patient will be sent for another modified barium swallow study this afternoon. If he fails the swallowing study, unfortunately we will have to have a more detailed conversation about PEG tube as this will be the most viable option at that point. In the meantime, will continue tube feedings via NG tube/dobhoff (3) Pneumonia Qualifiers: Pneumonia type: due to unspecified organism Laterality: bilateral Is this a current diagnosis for this admission?: Yes Plan: GPCs and a GNR isolated from sputum Received several days of IV antibiotics. Last received IV antibiotics on 03/20/2020. Still has chest x-ray findings of pneumonia bilaterally which may be secondary to his COVID pneumonia and may take several weeks to clear from his radiographs. Holding off on further antibiotic treatment at this point. (4) Critical illness polyneuropathy Is this a current diagnosis for this admission?: Yes Plan: Has had a very prolonged stay in the hospital and had a prolonged ICU stay. He will need very intensive physical and occupational therapy if we hope to get him anywhere close to his prior baseline physical functioning. Planning for placement at LTAC facility as he will need at least 30 days stay for aggressive PT, OT, speech therapy and continuation of vent weaning/trach collar trials. Performed a peer to peer review with Dr. Banks ([employer]) who declined approval at this point because he states that patient cannot go to LTAC with NG tube as this is not considered an adequate means of long-term nutrition. Give a phone number for p.o. [phone]. (5) Tracheostomy in place Is this a current diagnosis for this admission?: Yes Plan: Secondary to respiratory failure from COVID-19 pneumonia. Routine trach care. Secretions are moderate. Discussed with nurse who states patient is only requiring suctioning about 3-4 times per 12-hour shift. (6) UTI (urinary tract infection) due to Enterococcus Is this a current diagnosis for this admission?: Yes Plan: Received treatment with IV antibiotics. Currently completed treatment for this. (7) Septic shock Is this a current diagnosis for this admission?: Yes Plan: Long resolved. Currently hemodynamically stable. - Time Time Spent with patient: 15-24 minutes Anticipated Discharge Disposition: Residential Care Facility Anticipated Discharge Timeframe: when bed available
[2020-03-26] MEDS: SENNOSIDES/DOCUSATE 8.6-50 MG 1 EACH TABLET PO SCH (16:15)
[2020-03-27] MEDS: OXYCODONE HCL IR 5 MG TABLET PO PRN ×4 (02:18→23:37)
[2020-03-27] MEDS: ALBUTEROL SULFATE 0.083% NEB 2.5 MG/3 ML AMPUL NEB SCH ×4 (02:49→20:56)
[2020-03-27] MEDS: DIPHENHYDRAMINE HCL 50 MG/ML VIAL IV PRN ×2 (05:14→23:52)
[2020-03-27] MEDS: INSULIN LISPRO 100 UNIT/ML 3 ML VIAL SUBCUT SCH ×2 (09:18→15:39)
[2020-03-27] MEDS: LACTULOSE SYRUP 20 GM/30 ML UDCUP PO SCH ×2 (09:19→23:05)
[2020-03-27] MEDS: PANTOPRAZOLE SODIUM 40 MG VIAL IV SCH (09:19)
[2020-03-27] MEDS: FUROSEMIDE INJ/PF 20 MG/2 ML SDV IV SCH (09:19)
[2020-03-27] MEDS: ASCORBIC ACID 500 MG TABLET PO SCH ×2 (09:20→17:46)
[2020-03-27] MEDS: ENOXAPARIN SODIUM INJ 40 MG/0.4 ML DISP.SYRIN SUBCUT SCH (09:20)
[2020-03-27] MEDS: SENNOSIDES/DOCUSATE 8.6-50 MG 1 EACH TABLET PO SCH (09:20)
[2020-03-27] MEDS: THIAMINE HCL 100 MG TABLET PO SCH (09:20)
[2020-03-27 09:34] LABS: HEMATOCRIT 26.5 % (37.9-51.0); HEMOGLOBIN 8.6 g/dL (13.5-17.0); MEAN CORPUSCULAR HGB CONC 32.4 g/dL (32.0-36.0); MEAN CORPUSCULAR VOLUME 86 fl (80-97); PLATELET COUNT 403 10^3/uL (150-450); RED BLOOD COUNT 3.07 10^6/uL (4.35-5.55); RED CELL DISTRIBUTION WIDTH 18.6 % (11.5-14.0); WHITE BLOOD COUNT 17.2 10^3/uL (4.0-10.5)
[2020-03-27 09:53] LABS: ANION GAP 5 (5-19); BLOOD UREA NITROGEN 35 mg/dL (7-20); CALCIUM 8.5 mg/dL (8.4-10.2); CARBON DIOXIDE 39 mmol/L (22-30); CHLORIDE 93 mmol/L (98-107); GLUCOSE 158 mg/dL (75-110); POTASSIUM 3.6 mmol/L (3.6-5.0)
[2020-03-27] MEDS: HYDROCORTISONE SOD SUCCINATE INJ/PF 100 MG/2 ML SDV IV SCH (11:45)
[2020-03-27] MEDS: INSULIN GLARGINE,HUM.REC.ANLOG 1,000 UNIT/10 ML VIAL SUBCUT SCH (11:46)
--- NOTE | 2020-03-27 14:57 | PDOC PROGRESS REPORT ---
Subjective Progress Note for:: 03/27/20 Subjective:: Patient this morning requested to be taken off the vent denies shortness of breath. I had a conversation with him about PEG tube when he is quite adamant on waiting for the MB BS to be done because he feels that he can swallow and that he will pass the study. Otherwise, he had a bowel movement this morning which was regular. He does not have any other complaints. Reason For Visit: HYPOXEMIC RESPIRATORY FAILURE, HEMODYNAMIC Physical Exam Vital Signs: Temp Pulse Resp BP Pulse Ox 98.3 F 102 H 16 109/64 99 03/27/20 10:34 03/27/20 14:00 03/27/20 10:34 03/27/20 10:34 03/27/20 11:07 Intake & Output 03/26/20 03/27/20 03/28/20 06:59 06:59 06:59 Intake Total 1489 10 10 Output Total 1350 300 450 Balance 139 -290 -440 Weight 68.5 kg 68.5 kg General appearance: PRESENT: no acute distress, cooperative Neck exam: PRESENT: tracheostomy Respiratory exam: PRESENT: symmetrical, unlabored. ABSENT: accessory muscle use, retraction, tachypnea, wheezes Cardiovascular exam: PRESENT: +S1, +S2, tachycardia. ABSENT: irregular rhythm GI/Abdominal exam: PRESENT: soft. ABSENT: rebound, rigid, tenderness Neurological exam: PRESENT: alert, awake, oriented to person, oriented to place, oriented to time Psychiatric exam: ABSENT: agitated, anxious Results Laboratory Results: 03/27/20 09:03 03/27/20 09:03 03/27/20 03/27/20 09:03 09:03 WBC 17.2 H RBC 3.07 L Hgb 8.6 L Hct 26.5 L MCV 86 MCH 28.0 MCHC 32.4 RDW 18.6 H Plt Count 403 Sodium 136.9 L Potassium 3.6 Chloride 93 L Carbon Dioxide 39 H Anion Gap 5 BUN 35 H Creatinine 0.64 Est GFR ( Amer) > 60 Glucose 158 H Calcium 8.5 01/24/20 01/24/20 01/24/20 00:03 00:03 04:20 Creatine Kinase 80 CK-MB (CK-2) 0.63 Troponin I 0.132 0.133 NT-Pro-B Natriuret Pep 83119 H 0701/24/20 01/24/20 10:43 17:19 23:06 Creatine Kinase CK-MB (CK-2) Troponin I 0.114 0.079 0.075 NT-Pro-B Natriuret Pep 30023 H 01/30/20 01/31/20 02/01/20 03:45 05:39 06:14 Creatine Kinase CK-MB (CK-2) Troponin I NT-Pro-B Natriuret Pep 13956 H 66322 H 78625 H 02/02/20 02/27/20 02/27/20 04:24 08:12 08:12 Creatine Kinase 33 L CK-MB (CK-2) 2.16 Troponin I 0.013 NT-Pro-B Natriuret Pep 91455 H 02/27/20 02/28/20 02/29/20 08:12 05:44 05:35 Creatine Kinase CK-MB (CK-2) Troponin I NT-Pro-B Natriuret Pep 81097 H 87030 H 90092 H 03/02/20 03/03/20 03/11/20 05:44 05:00 04:33 Creatine Kinase CK-MB (CK-2) Troponin I NT-Pro-B Natriuret Pep 15881 H 77993 H 28524 H 03/13/20 03/15/20 03/25/20 08:40 08:44 08:40 Creatine Kinase CK-MB (CK-2) Troponin I 0.020 NT-Pro-B Natriuret Pep 05941 H 96056 H Impressions: Modified Barium Swallow 03/19/20 00:00 IMPRESSION: LARYNGEAL PENETRATION AND TRACHEAL ASPIRATION ABOVE. PLEASE SEE SPEECH PATHOLOGIST REPORT FOR OTHER FINDINGS AND RECOMMENDATIONS. Chest X-Ray 03/24/20 00:00 IMPRESSION: Apparent NG tube tip is at the level of the tracheostomy and repositioning is recommended. Bilateral consolidations and atelectasis. KUB X-Ray 03/25/20 00:00 IMPRESSION: Nasogastric tube in the stomach Dilated loops of small bowel which may reflect obstruction Basilar infiltrates Assessment and Plan - Diagnosis (1) Acute respiratory failure due to severe acute respiratory syndrome coronavirus 2 (SARS-CoV-2) infection Is this a current diagnosis for this admission?: Yes Plan: Significant hypoxic/hypercarbic respiratory failure secondary to COVID-19 p neumonia. Repeat COVID-19 test on 03/04/2020 showed was negative. Infection is likely resolved. Required prolonged intubation and mechanical ventilation and eventually had to get Tracheostomy done on 03/14/2020 by ENT. Currently conducting vent weaning trials to trach collar. He has actually been on trach collar for the past 2 days now at 40% FiO2 and 9L this morning. Has done well on this. However, this afternoon we had to place patient back on mechanical ventilator intermittently as he was seeming to fatigue and get more tachypneic. Appeared comfortable subsequently. I feel that, at this point, patient is able to tolerate long hours on trach collar but may occasionally need to be vented on some nights if notably fatigued. I will leave him on mechanical ventilator for some hours or possibly the rest of today and put him back on trach collar again tomorrow morning. 03/27/2020 Took patient off the vent this morning as he was doing well. Put him back on trach collar FiO2 40% on 6 L. We will try to keep him on trach collar throughout the day and throughout the night as well and see how he tolerates it. Hopefully his respiratory muscles should continue to get stronger and allow him to tolerate longer periods without needing mechanical ventilation. (2) Dysphagia Qualifiers: Dysphagia type: oropharyngeal phase Qualified Code(s): R13.12 - Dysphagia, oropharyngeal phase Is this a current diagnosis for this admission?: Yes Plan: Secondary to prolonged intubation. Failed previous MB BS on 03/19/2020. Patient is adamant that his swallowing has improved. Discussed with speech pathologist and patient will be sent for another modified barium swallow study this afternoon. If he fails the swallowing study, unfortunately we will have to have a more detailed conversation about PEG tube as this will be the most viable option at that point. In the meantime, will continue tube feedings via NG tube/dobhoff 03/27/2020 Patient is scheduled for MB BS this afternoon which will determine whether he will require PEG tube or not. (3) Pneumonia Qualifiers: Pneumonia type: due to unspecified organism Laterality: bilateral Is this a current diagnosis for this admission?: Yes Plan: GPCs and a GNR isolated from sputum Received several days of IV antibiotics. Last received IV antibiotics on 03/20/2020. Still has chest x-ray findings of pneumonia bilaterally which may be secondary to his COVID pneumonia and may take several weeks to clear from his radiographs. Holding off on further antibiotic treatment at this point. (4) Critical illness polyneuropathy Is this a current diagnosis for this admission?: Yes Plan: Has had a very prolonged stay in the hospital and had a prolonged ICU stay. He will need very intensive physical and occupational therapy if we hope to get him anywhere close to his prior baseline physical functioning. Planning for placement at LTAC facility as he will need at least 30 days stay for aggressive PT, OT, speech therapy and continuation of vent weaning/trach collar trials. Performed a peer to peer review 03/[address] Banks ([facility]) who declined approval at this point because he states that patient cannot go to LTAC with NG tube as this is not considered an adequate means of long-term nutrition. Gave a phone number for p.o. [phone]. (5) Tracheostomy in place Is this a current diagnosis for this admission?: Yes Plan: Secondary to respiratory failure from COVID-19 pneumonia. Routine trach care. Secretions are moderate. Discussed with nurse who states patient is only requiring suctioning about 3-4 times per 12-hour shift. (6) Cardiomyopathy Qualifiers: Cardiomyopathy type: dilated Qualified Code(s): I42.0 - Dilated cardiomyopathy Is this a current diagnosis for this admission?: Yes Plan: TTE 01/2020 revealed EF of 40 to 45% with notable dilated cardiomyopathy and areas of hypokinesis. However no valvular lesions. Currently not in acute heart failure. We will start patient on low-dose lisinopril, Toprol-XL and convert from IV to p.o. Lasix. Cardiology consulted who recommends repeat limited TTE for EF re-assessment. (7) UTI (urinary tract infection) due to Enterococcus Is this a current diagnosis for this admission?: Yes Plan: Received treatment with IV antibiotics. Currently completed treatment for this. (8) Septic shock Is this a current diagnosis for this admission?: Yes Plan: Long resolved. Currently hemodynamically stable. - Time Time Spent with patient: 15-24 minutes Anticipated Discharge Disposition: Detention Care Facility Anticipated Discharge Timeframe: within 48 hours
--- NOTE | 2020-03-27 15:20 | ST Inp Modified Barium Swallow ---
Medical Diagnosis - Medical Diagnoses Medical Diagnosis Description & ICD-10 Code(s): acute respiratory failure, tracheostomy placement - ICD-10 Tx Diagnosis Coding (1) Dysphagia ICD-10 Code(s): R13.10 - DYSPHAGIA, UNSPECIFIED (2) Acute respiratory failure due to severe acute respiratory syndrome coronavirus 2 (SARS-CoV-2) infection ICD-10 Code(s): U07.1 - COVID-19; J96.00 - ACUTE RESPIRATORY FAILURE, UNSP W HYPOXIA OR HYPERCAPNIA (3) Tracheostomy in place ICD-10 Code(s): Z93.0 - TRACHEOSTOMY STATUS ST Inpatient MBS - General Date: 03/27/20 - History -: Medical - Patient being re-evaluated with MBSS for swallow function. Last MBSS completed 03/19/20, which revealed very limited swallow reflex with poor airway closure and poor pharyngeal constriction. Significant aspiration seen with no sensation or reaction to aspiration (silent aspiration). Patient currently has NG tube and tracheostomy. Patient has had lengthy hospitalization of 60+ days secondary to respiratory complications from COVID-19 infection. Medications: Medications Reviewed Allergies: Refer to medical record - Subjective Current Nutritional Means: NG Current PO Diet: therapeutic trials - ice chips only Pain: Patient reports, 0/5 - Objective Assessment: Upright, Left Lateral - Food Trials Food Trials Used: Thin liquids, Honey-thickened liquids, [place] thick liquids, Pureed The Patient: fed by ST - Assessment Labial Function: Within Normal Limits Lingual Function: Within Normal Limits Mandibular Function: Within Normal Limits Laryngeal Function: no volitional cough/clear - no voicing, cuffed trach - Pharyngeal Stage Initiation of Pharyngeal Stage: Delayed - up to 5 seconds Decreased Laryngeal Elevation: Yes Reduced Velo-Pharyngeal Closure: no Reduced Pressure Generation: Yes Pre-Swallowing Pooling in Valleculae: Significant Pre-Swallowing Pooling in Pyriforms: Significant Reduced Thyro-Hyiod Approximation: Yes Multiple Swallows With: Ineffective Clearance Post Swallow Residuals in Valleculae: Moderate Post Swallow Residuals in Pyriforms: Moderate Post Swallow Residuals: throughout pharynx - Impression/Summary Laryngeal Penetration: Yes - with all trial textures, Silent, before swallow, during swallow, after swallow Tracheal Aspiration: yes - with all trial textures, silent, during swallow, after swallow Productive Cough: No Effective Clearing: no Patient Presents With: Pharyngeal stage dysph., Profound Risk of Aspiration: Severe Risk Due To: Patient with poor airway closure on the swallow, and poor pharyngeal constriction. This resulted in penetration of all textures during the swallow, and aspiration of all trials after the swallow. Aspiration occured with spill over from pyriform sinus residue with all textures. Patient did not have sensation of aspiration or of residue after the swallow. - Recommendations NPO: therapeutic trials - ice only Dysphagia Therapy with DYE BECK REEL OPERATOR: Yes Other Recommendations: Recommend alternative means of nutrition and hydration with continued dysphagia treatment. Patient's swallow reflex is improved from last study, however, high amount of aspiration still seen. - Time Total Time: 30 Total Timed Minutes: 30
[2020-03-27] MEDS: METOPROLOL SUCCINATE 25 MG TAB.SR.24H PO SCH (15:40)
--- NOTE | 2020-03-27 15:40 | RADIOLOGY REPORT (SQ) ---
EXAM DESCRIPTION: COOKIE SWALLOW IMAGES COMPLETED DATE/TIME: 03/27/2020 2:55 pm REASON FOR STUDY: assist in determine d/c disposition, need for PEG aspiration on prior study COMPARISON: Cookie swallow 03/19/2020. . TECHNIQUE: Videofluoroscopic swallowing examination was performed in conjunction with speech patholo gy. Videofluoroscopic imaging was obtained and reviewed and these are the findings: RADIATION DOSE: FT: 2.1 minutes. 1 image submitted to PACS. LIMITATIONS: None FINDINGS: The patient was brought into the fluoro room and placed upright on a modified barium swall ow chair. The patient was then given multiple consistencies mixed with barium to swallow under live fluoroscopic video guidance. According to the Speech Pathologist there was aspiration seen with all consistencies, however, improved since last study. Please refer to the speech pathology report for f urther details. IMPRESSION: ASPIRATION WITH ALL CONSISTENCIES, HOWEVER SOMEWHAT IMPROVED. PLEASE SEE SPEECH PATHOLOG IST REPORT FOR OTHER FINDINGS AND RECOMMENDATIONS. COMMENT: None Quality ID [id number]: Final reports for procedures using fluoroscopy that document radiation exposure lyn oswaldo, or exposure time and number of fluorographic images (if radiation exposure indices are not avail able) TECHNICAL DOCUMENTATION: JOB ID: [id number] 2010 [employer]- All Rights Reserved Reading location - IP/workstation name: [email or web address] [id number]
[2020-03-27] MEDS: LISINOPRIL 5 MG TABLET PO SCH (23:04)
[2020-03-28] MEDS: INSULIN LISPRO 100 UNIT/ML 3 ML VIAL SUBCUT SCH ×5 (01:24→23:00)
[2020-03-28] MEDS: ALBUTEROL SULFATE 0.083% NEB 2.5 MG/3 ML AMPUL NEB SCH ×2 (02:39→08:40)
[2020-03-28] MEDS: OXYCODONE HCL IR 5 MG TABLET PO PRN ×2 (06:15→18:30)
--- NOTE | 2020-03-28 09:52 | RADIOLOGY REPORT (SQ) ---
EXAM DESCRIPTION: CHEST SINGLE VIEW IMAGES COMPLETED DATE/TIME: 03/28/2020 9:35 am REASON FOR STUDY: To check NG placement COMPARISON: None. EXAM PARAMETERS: NUMBER OF VIEWS: One view. TECHNIQUE: Single frontal radiographic view of the chest acquired. RADIATION DOSE: NA LIMITATIONS: None. FINDINGS: Limited view of the chest and abdomen demonstrate NG tube in place. Tip lies in the left upper quadrant most likely within stomach. Bilateral basilar infiltrates are again noted. IMPRESSION: NG tube is been placed. Tip lies in the left upper quadrant as described. TECHNICAL DOCUMENTATION: JOB ID: [id number] 2010 [employer]- All Rights Reserved Reading location - IP/workstation name: [email or web address]
[2020-03-28] MEDS: FUROSEMIDE 20 MG TABLET PO SCH (10:30)
[2020-03-28] MEDS: METOPROLOL SUCCINATE 25 MG TAB.SR.24H PO SCH (10:30)
[2020-03-28] MEDS: ASCORBIC ACID 500 MG TABLET PO SCH ×2 (10:30→18:30)
[2020-03-28] MEDS: LISINOPRIL 5 MG TABLET PO SCH ×2 (10:30→21:12)
[2020-03-28] MEDS: PANTOPRAZOLE SODIUM 40 MG VIAL IV SCH (10:30)
[2020-03-28] MEDS: THIAMINE HCL 100 MG TABLET PO SCH (10:30)
[2020-03-28] MEDS: LACTULOSE SYRUP 20 GM/30 ML UDCUP PO SCH ×3 (10:30→22:00)
[2020-03-28] MEDS: SENNOSIDES/DOCUSATE 8.6-50 MG 1 EACH TABLET PO SCH (10:31)
[2020-03-28] MEDS: ENOXAPARIN SODIUM INJ 40 MG/0.4 ML DISP.SYRIN SUBCUT SCH (10:31)
[2020-03-28] MEDS: HYDROCORTISONE SOD SUCCINATE INJ/PF 100 MG/2 ML SDV IV SCH (10:33)
[2020-03-28] MEDS: INSULIN GLARGINE,HUM.REC.ANLOG 1,000 UNIT/10 ML VIAL SUBCUT SCH (10:36)
--- NOTE | 2020-03-28 12:13 | PDOC PROGRESS REPORT ---
Subjective Progress Note for:: 03/28/20 Subjective:: Patient has no shortness of breath. Apparently patient was placed on vent overnight. However there was no documentation of signout as to why patient was placed on the vent. Possibly miscommunication. Patient also failed the swallowing test miserably yesterday. This morning I have a prolonged discussion with patient that he still adamant on wanting to swallow food by mouth. He is of the belief that he only failed the test because he was being given liquids a nd that he will pass the test with solid foods. I have explained to him several times that he filled with all forms of liquids including pain, thickened and nectar liquids and that he would likely aspirate significantly on solids as well. Discussed options for PEG but patient after repeated explanations remains adamant on not wanting a PEG tube. Reason For Visit: HYPOXEMIC RESPIRATORY FAILURE, HEMODYNAMIC Physical Exam Vital Signs: Temp Pulse Resp BP Pulse Ox 98.9 F 102 H 10 L 110/64 95 03/28/20 07:15 03/28/20 08:40 03/28/20 08:40 03/28/20 07:15 03/28/20 08:40 Intake & Output 03/27/20 03/28/20 03/29/20 06:59 06:59 06:59 Intake Total 10 10 10 Output Total 300 820 Balance -290 -810 10 Weight 68.5 kg 66.7 kg General appearance: PRESENT: no acute distress, cooperative Neck exam: PRESENT: tracheostomy. ABSENT: JVD Respiratory exam: PRESENT: clear to auscultation yousif, tachypnea, unlabored. ABSENT: crackles, symmetrical, wheezes Cardiovascular exam: PRESENT: RRR, +S1, +S2. ABSENT: tachycardia GI/Abdominal exam: PRESENT: soft. ABSENT: rebound, rigid, tenderness Extremities exam: ABSENT: pedal edema Neurological exam: PRESENT: alert, awake, oriented to person, oriented to place, oriented to time, oriented to situation Results Laboratory Results: 03/27/20 09:03 03/27/20 09:03 01/24/20 01/24/20 01/24/20 00:03 00:03 04:20 Creatine Kinase 80 CK-MB (CK-2) 0.63 Troponin I 0.132 0.133 NT-Pro-B Natriuret Pep 08371 H 01/24/20 01/24/2001/23/20 10:43 17:19 23:06 Creatine Kinase CK-MB (CK-2) Troponin I 0.114 0.079 0.075 NT-Pro-B Natriuret Pep 58056 H 01/30/20 01/31/20 02/01/20 03:45 05:39 06:14 Creatine Kinase CK-MB (CK-2) Troponin I NT-Pro-B Natriuret Pep 65436 H 04845 H 32339 H 02/02/20 02/27/20 02/27/20 04:24 08:12 08:12 Creatine Kinase 33 L CK-MB (CK-2) 2.16 Troponin I 0.013 NT-Pro-B Natriuret Pep 43960 H 02/27/20 02/28/20 02/29/20 08:12 05:44 05:35 Creatine Kinase CK-MB (CK-2) Troponin I NT-Pro-B Natriuret Pep 87566 H 28677 H 37317 H 03/02/20 03/03/20 03/11/20 05:44 05:00 04:33 Creatine Kinase CK-MB (CK-2) Troponin I NT-Pro-B Natriuret Pep 99409 H 70680 H 61913 H 03/13/20 03/15/20 03/25/20 08:40 08:44 08:40 Creatine Kinase CK-MB (CK-2) Troponin I 0.020 NT-Pro-B Natriuret Pep 13826 H 30268 H Impressions: KUB X-Ray 03/25/20 00:00 IMPRESSION: Nasogastric tube in the stomach Dilated loops of small bowel which may reflect obstruction Basilar infiltrates Modified Barium Swallow 03/27/20 00:00 IMPRESSION: ASPIRATION WITH ALL CONSISTENCIES, HOWEVER SOMEWHAT IMPROVED. PLEASE SEE SPEECH PATHOLOGIST REPORT FOR OTHER FINDINGS AND RECOMMENDATIONS. Chest X-Ray 03/28/20 00:00 IMPRESSION: NG tube is been placed. Tip lies in the left upper quadrant as described. Assessment and Plan - Diagnosis (1) Acute respiratory failure due to severe acute respiratory syndrome marcelina navirus 2 (SARS-CoV-2) infection Is this a current diagnosis for this admission?: Yes Plan: Significant hypoxic/hypercarbic respiratory failure secondary to COVID-19 pneumonia. Repeat COVID-19 test on 03/04/2020 showed was negative. Infection is likely resolved. Required prolonged intubation and mechanical ventilation and eventually had to get Tracheostomy done on 03/14/2020 by ENT. Currently conducting vent weaning trials to trach collar. He has actually been on trach collar for the past 2 days now at 40% FiO2 and 9L this morning. Has done well on this. However, this afternoon we had to place patient back on mechanical ventilator intermittently as he was seeming to fatigue and get more tachypneic. Appeared comfortable subsequently. I feel that, at this point, patient is able to tolerate long hours on trach collar but may occasionally need to be vented on some nights if notably fatigued. I will leave him on mechanical ventilator for some hours or possibly the rest of today and put him back on trach collar again tomorrow morning. 03/27/2020 Took patient off the vent this morning as he was doing well. Put him back on trach collar FiO2 40% on 6 L. We will try to keep him on trach collar throughout the day and throughout the night as well and see how he tolerates it. Hopefully his respiratory muscles should continue to get stronger and allow him to tolerate longer periods without needing mechanical ventilation. 03/28/2020 Patient was on trach collar throughout the daytime yesterday. It seems that he was placed on mechanical ventilation at some point overnight but no documentation as to why this was done or if he truly needed it. Instructed staff to keep patient completely off mechanical ventilation and remain on trach collar throughout the day and nighttime except if patient gets work of breathing or notably fatigued in which case we will reassess. Check venous blood gas in the morning We will get a Passy-Baker valve for patient to enable his speech. We will see if patient tolerates this. Communicated with nursing that the valve is to be removed whenever patient is asleep. (2) Dysphagia Qualifiers: Dysphagia type: oropharyngeal phase Qualified Code(s): R13.12 - Dysphagia, oropharyngeal phase Is this a current diagnosis for this admission?: Yes Plan: Secondary to prolonged intubation. Failed MB BS on 03/19/2020 and again on 03/27/2020 After long conversations with patient, patient still remains under the impression that he will be able to swallow better if given solid foods. I have explained to him that after failing on different consistencies of liquid he needs to be a strict n.p.o. and he will aspirate with all consistencies of foods or liquids. Strict n.p.o. recommended. I have discussed PEG tube elaborately with patient that he still refuses at this adamantly. I have explained to him that Dobbhoff/NG tube is not an adequate source of nutrition. Currently stuck with using NG tube for nutrition. Continue speech/swallow rehabilitation (3) Critical illness polyneuropathy Is this a current diagnosis for this admission?: Yes Plan: Has had a very prolonged stay in the hospital and had a prolonged ICU stay. He will need very intensive physical and occupational therapy if we hope to get him anywhere close to his prior baseline physical functioning. Planning for placement at LTAC facility as he will need at least 30 days stay for aggressive PT, OT, speech therapy and continuation of vent weaning/trach collar trials. Performed a peer to peer review 03/26/[address] Banks ([facility]) who declined approval at this point because he states that patient cannot go to LTAC with NG tube as this is not considered an adequate means of long-term nutrition. Gave a phone number for p.o. [phone]. Discussed with social science analyst about appealing with [facility] regarding the denial for LTAC placement. Currently patient is adamantly refused PEG tube and we are stuck with using a Dobbhoff for nutrition. (4) Pneumonia Qualifiers: Pneumonia type: due to unspecified organism Laterality: bilateral Is this a current diagnosis for this admission?: Yes Plan: GPCs and a GNR isolated from sputum Received several days of IV antibiotics. Last received IV antibiotics on 2019. Still has chest x-ray findings of pneumonia bilaterally which may be secondary to his COVID pneumonia and may take several weeks to clear from his radiographs. Holding off on further antibiotic treatment at this point. (5) Tracheostomy in place Is this a current diagnosis for this admission?: Yes Plan: Secondary to respiratory failure from COVID-19 pneumonia. Routine trach care. Secretions are moderate. Discussed with nurse who states patient is only requiring suctioning about 3-4 times per 12-hour shift. (6) Cardiomyopathy Qualifiers: Cardiomyopathy type: dilated Qualified Code(s): I42.0 - Dilated cardiomyopathy Is this a current diagnosis for this admission?: Yes Plan: TTE 01/2020 revealed EF of 40 to 45% with notable dilated cardiomyopathy and areas of hypokinesis. However no valvular lesions. Currently not in acute heart failure. low-dose lisinopril, Toprol-XL and p.o. Lasix. Cardiology consulted who recommends repeat limited TTE for EF re-assessment. (7) UTI (urinary tract infection) due to Enterococcus Is this a current diagnosis for this admission?: Yes Plan: Received treatment with IV antibiotics. Currently completed treatment for this. (8) Septic shock Is this a current diagnosis for this admission?: Yes Plan: Long resolved. Currently hemodynamically stable. - Time Time Spent with patient: 25-34 minutes Anticipated Discharge Disposition: [facility] Anticipated Discharge Timeframe: when bed available
--- NOTE | 2020-03-28 12:39 | XCELERA REPORT ---
[address] [address] Transthoracic Echocardiogram Report Name: FREDDIE LAZO JR Gopi Age: 60 yrs Gender: Male : 1960 Patient Status: Inpatient Patient Location: [facility]^A Study Date: 03/27/2020 07:44 PM History: CHF Height: 67 in Weight: 151 lb BSA: 1.8 m2 Procedure: A limited two-dimensional transthoracic echocardiogram was performed (2D). Reason For Study: for EF reassessment Previous Evaluation: A previous study was performed on 02/16/2020 lVEF 40-45%. Ordering Physician: ZACHARY GROSS Performed By: Maria Alejandra Montero Interpretation Summary Left ventricular systolic function is moderately reduced. The Ejection Fraction estimate is 35-40% The right ventricular systolic function is mildly reduced. Minimal pericardial effusion. MMode/2D Measurements & Calculations RVDd: 2.9 cm LVIDd: 5.2 cm FS: 19.8 % Ao root diam: 3.1 cm IVSd: 0.95 cm LVIDs: 4.2 cm EDV(Teich): LVPWd: 1.0 cm 130.8 ml Ao root area: ESV(Teich): 7.6 cm2 78.2 ml LA dimension: EF(Teich): 40.3 % 4.1 cm LVLd ap4: 6.7 cm SV(MOD-sp4): EDV(MOD-sp4): 57.0 ml 115.0 ml LVLs ap4: 6.7 cm ESV(MOD-sp4): 58.0 ml EF(MOD-sp4): 49.6 % Left Ventricle The left ventricle is mildly to moderately dilated. There is moderate concentric left ventricular hypertrophy. Left ventricular systolic function is moderately reduced. The Ejection Fraction estimate is 35-40%. There is anterior wall moderate hypokinesis. There is anteroseptal wall severe hypokinesis. Right Ventricle The right ventricle is grossly normal size. The right ventricular systolic function is mildly reduced. Mitral Valve The mitral valve is grossly normal. There is a mild to moderate amount of mitral regurgitation. Aortic Valve The aortic valve opens well. Tricuspid Valve The tricuspid valve is not well visualized, but is grossly normal. Pulmonic Valve The pulmonic valve is not well visualized. Great Vessels The aortic root is not well visualized. Effusions Minimal pericardial effusion. : ZACHARY GROSS Anil
--- NOTE | 2020-03-28 14:22 | PDOC CONSULTATION ---
Consultation Consult Date: 03/28/20 Attending physician:: ZACHARY GROSS Provider Consulted: LIZA DUMAS Consult reason:: Dilated cardiomyopathy History of Present Illness Admission Date/PCP: 01/24/20 08:20 G[facility]LENA History of Present Illness: FREDDIE LAZO JR is a 60 year old male 60-year-old male who is unable to communicate on account of tracheostomy. Extensive hospital course. Data was reviewed. It appears that he had COVID pneumonia and hypoxic hypercarbic respiratory failure. Long protracted course and presently having had tracheostomy. He is also had failure to thrive, dysphagia and malnutrition and a PEG tube is being contemplated. Echocardiogram was done earlier which that showed mildly reduced ejection fraction at about 40 to 45%. Patient also had septic shock and urinary tract infection at that time. A limited echocardiogram was repeated to reassess LV function and came back as low in the range of 35 to 40%. Patient denies any chest pain although communication is difficult. He appears to be comfortable. Other aspects of history are difficult to discern on account of difficulty communicate. It is difficult to establish an extensive review of systems on account of tracheostomy. No familial illnesses chronicled. Past Medical History Cardiac Medical History: Reports: Congestive Heart Failure Denies: Coronary Artery Disease, Hyperlipidema, Hypertension Pulmonary Medical History: Reports: Other - Intubated in the ICU with failure to extubate Denies: Asthma, Chronic Obstructive Pulmonary Disease (COPD), Respiratory Failure EENT Medical History: Reports: Other - The patient is intubated Neurological Medical History: Denies: Seizures Endocrine Medical History: Reports: Diabetes Mellitus Type 2 Renal/ Medical History: Reports: Chronic Kidney Disease, End Stage Renal Disease - Recently diagnosed with stage IV CKD Malignancy Medical History: Reports: None GI Medical History: Denies: Cirrhosis, Hepatitis Musculoskeltal Medical History: Reports: Arthritis Denies: Gout Skin Medical History: Denies: Eczema, Psoriasis Psychiatric Medical History: Reports: Depression Hematology: Reports: Anemia - Recently diagnosed, Other - The patient is intubated Denies: Bleeding Tendencies Past Surgical History Past Surgical History: Reports: Orthopedic Surgery - Multiple surgeries, Other - Multiple orthopedic surgeries Social History Smoking Status: Unknown if Ever Smoked Electronic Cigarette use?: No Frequency of Alcohol Use: None Hx Recreational Drug Use: No Drugs: None Hx Prescription Drug Abuse: No - Advance Directive Resuscitation Status: Full Code Family History Family History: Reviewed & Not Pertinent, DM Parental Family History Reviewed: No - Unable to obtain detailed family history on account of tracheostomy Children Family History Reviewed: NA Sibling(s) Family History Reviewed.: NA Medication/Allergy Home Medications: Meloxicam [Mobic 7.5 mg Tablet] 7.5 mg PO Q12HP PRN 01/06/20 Oxycodone HCl [Oxy-Ir 5 mg Tablet] 15 mg PO Q6 01/06/20 Aspirin [Aspirin 81 mg Chewable Tablet] 81 mg PO QHS #0 tab.chew 01/19/20 Atorvastatin Calcium [Lipitor 20 mg Tablet] 20 mg PO QHS #30 tablet 01/19/20 Cefpodoxime Proxetil [Vantin 200 mg Tablet] 200 mg PO Q12 #12 tablet 01/19/20 Gabapentin [Neurontin 100 mg Capsule] 200 mg PO Q8 #180 capsule 01/19/20 Insulin Glargine,Hum.rec.anlog [Lantus Insulin 100 Unit/1 ml 10 ml] 10 unit SUBCUT DAILY #1 vial 01/19/20 Metoprolol Tartrate [Lopressor 25 mg Tablet] 12.5 mg PO Q12 #15 tablet 01/19/20 Meclizine HCl [Antivert 12.5 mg Tablet] 12.5 mg PO Q4HP PRN 01/24/20 Ondansetron [Zofran Odt 4 mg Tablet] 4 mg PO Q4HP PRN 01/24/20 Allergies/Adverse Reactions: iodine Allergy (Verified 01/23/20 23:19) Penicillins Allergy (Verified 01/23/20 23:19) shellfish derived Allergy (Verified 01/23/20 23:19) Sulfa (Sulfonamide Antibiotics) Allergy (Verified 01/23/20 23:19) Review of Systems ROS unobtainable: Due to endotracheal tube, Other - Due to tracheostomy communication with the patient is difficult. Physical Exam Vital Signs: Temp Pulse Resp BP Pulse Ox 98.0 F 107 H 17 106/63 99 03/28/20 12:31 03/28/20 12:31 03/28/20 12:31 03/28/20 12:31 03/28/20 12:31 Intake & Output 03/27/20 03/28/20 03/29/20 06:59 06:59 06:59 Intake Total 10 10 10 Output Total 300 820 875 Balance -290 -810 -865 Weight 68.5 kg 66.7 kg General appearance: PRESENT: thin Head exam: PRESENT: atraumatic, normocephalic Eye exam: PRESENT: conjunctiva pale, EOMI Mouth exam: PRESENT: dry mucosa Neck exam: PRESENT: tracheostomy Respiratory exam: PRESENT: rales, symmetrical, unlabored Cardiovascular exam: PRESENT: RRR, +S1, +S2 Pulses: PRESENT: normal radial pulses GI/Abdominal exam: PRESENT: soft Rectal exam: PRESENT: deferred Neurological exam: PRESENT: alert, awake, oriented to person Psychiatric exam: PRESENT: appropriate affect Skin exam: PRESENT: dry, intact, normal color Results Laboratory Results: 03/27/20 09:03 03/27/20 09:03 01/24/20 01/24/20 01/24/20 00:03 00:03 04:20 Creatine Kinase 80 CK-MB (CK-2) 0.63 Troponin I 0.132 0.133 NT-Pro-B Natriuret Pep 98306 H 01/24/20 01/24/20 01/24/20 10:43 17:19 23:06 Creatine Kinase CK-MB (CK-2) Troponin I 0.114 0.079 0.075 NT-Pro-B Natriuret Pep 10166 H 01/30/20 01/31/20 02/01/20 03:45 05:39 06:14 Creatine Kinase CK-MB (CK-2) Troponin I NT-Pro-B Natriuret Pep 86827 H 18707 H 62522 H 02/02/20 02/27/20 02/27/20 04:24 08:12 08:12 Creatine Kinase 33 L CK-MB (CK-2) 2.16 Troponin I 0.013 NT-Pro-B Natriuret Pep 45495 H 02/27/20 02/28/20 02/29/20 08:12 05:44 05:35 Creatine Kinase CK-MB (CK-2) Troponin I NT-Pro-B Natriuret Pep 66864 H 62913 H 64500 H 03/02/20 03/03/20 03/11/20 05:44 05:00 04:33 Creatine Kinase CK-MB (CK-2) Troponin I NT-Pro-B Natriuret Pep 57805 H 61376 H 45032 H 03/13/20 03/15/20 03/25/20 08:40 08:44 08:40 Creatine Kinase CK-MB (CK-2) Troponin I 0.020 NT-Pro-B Natriuret Pep 67193 H 34259 H EKG Comments: Transthoracic echocardiogram 02/16/2020 Left ventricular ejection fraction 40 to 45%. Transthoracic echocardiogram 03/27/2020 Left ventricular ejection fraction estimated at 35 to 40% RV function is mildly reduced Minimal pericardial effusion Twelve-lead EKG 03/25/2020 Independently reviewed by me. Sinus rhythm, left atrial abnormality, poor R wave progression, nonspecific T wave abnormality, QTC is 423 ms Telemetry shows sinus rhythm Twelve-lead EKG 01/23/2020. Independently viewed by me. Indeterminate troponins Sinus rhythm, left atrial abnormality, poor R wave progression, QTC is 478 ms Impressions: KUB X-Ray 03/25/20 00:00 IMPRESSION: Nasogastric tube in the stomach Dilated loops of small bowel which may reflect obstruction Basilar infiltrates Modified Barium Swallow 03/27/20 00:00 IMPRESSION: ASPIRATION WITH ALL CONSISTENCIES, HOWEVER SOMEWHAT IMPROVED. PLEASE SEE SPEECH PATHOLOGIST REPORT FOR OTHER FINDINGS AND RECOMMENDATIONS. Chest X-Ray 03/28/20 00:00 IMPRESSION: NG tube is been placed. Tip lies in the left upper quadrant as described. Assessment & Plan - Diagnosis (1) Dilated cardiomyopathy Is this a current diagnosis for this admission?: Yes Plan: Dilated cardiomyopathy. Previously estimate of left ventricular ejection fraction in late January was 40 to 45%. Limited echocardiogram repeated yesterday shows left ventricular ejection fraction to be 35 to 40%. At any measured there is been no significant improvement Although this could be related to COVID pneumonia and a viral insult and also sepsis. There has been no significant improvement Also there is focal wall motion abnormality involving the anterior wall. Would recommend institution of guideline directed medical therapy consisting of DUSTY inhibitor and beta-cecilia He probably needs maintenance diuretic at lower dose Once his clinical situation improves and his overall outlook improves he will likely require ischemic evaluation by cardiac catheterization. (2) Non-ST elevated myocardial infarction (non-STEMI) Is this a current diagnosis for this admission?: Yes Plan: Elevated troponins in the setting of sepsis and infection and unlikely due to ACS. Supportive therapy (3) Pneumonia due to COVID-19 virus Is this a current diagnosis for this admission?: Yes Plan: Patient appears to be improving. Is a long hospital stay and multiple insults. Progress has been slow. Tracheostomy is being managed.
[2020-03-29] MEDS: OXYCODONE HCL IR 5 MG TABLET PO PRN ×3 (00:30→15:52)
[2020-03-29] MEDS: DIPHENHYDRAMINE HCL 50 MG/ML VIAL IV PRN ×2 (01:31→20:00)
[2020-03-29] MEDS: INSULIN LISPRO 100 UNIT/ML 3 ML VIAL SUBCUT SCH ×3 (06:51→17:36)
[2020-03-29 11:09] LABS: VENOUS BLOOD BASE EXCESS 7.6 mmol/L; VENOUS BLOOD HCO3 35.2 mmol/L (20-32)
[2020-03-29 11:14] LABS: VENOUS BLOOD PH 7.33 (7.30-7.42)
[2020-03-29] MEDS: PANTOPRAZOLE SODIUM 40 MG VIAL IV SCH (11:30)
[2020-03-29] MEDS: LACTULOSE SYRUP 20 GM/30 ML UDCUP PO SCH ×2 (11:31→22:02)
[2020-03-29] MEDS: METOPROLOL SUCCINATE 25 MG TAB.SR.24H PO SCH (11:31)
[2020-03-29] MEDS: ASCORBIC ACID 500 MG TABLET PO SCH ×2 (11:31→17:42)
[2020-03-29] MEDS: THIAMINE HCL 100 MG TABLET PO SCH (11:31)
[2020-03-29] MEDS: LISINOPRIL 5 MG TABLET PO SCH ×2 (11:31→22:02)
[2020-03-29] MEDS: FUROSEMIDE 20 MG TABLET PO SCH (11:31)
[2020-03-29] MEDS: INSULIN GLARGINE,HUM.REC.ANLOG 1,000 UNIT/10 ML VIAL SUBCUT SCH (11:32)
[2020-03-29] MEDS: ENOXAPARIN SODIUM INJ 40 MG/0.4 ML DISP.SYRIN SUBCUT SCH (11:32)
[2020-03-29] MEDS: SENNOSIDES/DOCUSATE 8.6-50 MG 1 EACH TABLET PO SCH (11:33)
[2020-03-29] MEDS: HYDROCORTISONE SOD SUCCINATE INJ/PF 100 MG/2 ML SDV IV SCH (11:36)
--- NOTE | 2020-03-29 17:01 | PDOC PROGRESS REPORT ---
Subjective Progress Note for:: 03/29/20 Subjective:: This morning, patient was having some difficulty breathing. He had notable mucus plugging of his tracheostomy tube. He was hypoxic into the 60s but improved back into the 90s after suctioning. Respiratory distress resolved. Discussed with patient that we will be discontinue mechanical ventilation. Will monitor with frequent suctioning. Reason For Visit: HYPOXEMIC RESPIRATORY FAILURE, HEMODYNAMIC Physical Exam Vital Signs: Temp Pulse Resp BP Pulse Ox 97.8 F 97 17 111/60 93 03/29/20 10:00 03/29/20 14:00 03/29/20 07:26 03/29/20 07:26 03/29/20 08:00 Intake & Output 03/28/20 03/29/20 03/30/20 06:59 06:59 06:59 Intake Total 10 10 10 Output Total 820 1475 500 Balance -810 -8696 -490 Weight 66.7 kg 65.8 kg General appearance: PRESENT: mild distress Head exam: PRESENT: normocephalic Neck exam: PRESENT: tracheostomy. ABSENT: JVD Respiratory exam: PRESENT: accessory muscle use, rhonchi, tachypnea. ABSENT: unlabored, wheezes Cardiovascular exam: PRESENT: +S1, +S2, tachycardia. ABSENT: irregular rhythm GI/Abdominal exam: PRESENT: soft. ABSENT: rebound, rigid, tenderness Neurological exam: PRESENT: alert, awake, oriented to person, oriented to place, oriented to time Results Laboratory Results: 03/27/20 09:03 03/27/20 09:03 03/29/20 10:45 VBG pH 7.33 VBG pCO2 68.0 H* VBG HCO3 35.2 H VBG Base Excess 7.6 01/24/20 01/24/20 01/24/20 00:03 00:03 04:20 Creatine Kinase 80 CK-MB (CK-2) 0.63 Troponin I 0.132 0.133 NT-Pro-B Natriuret Pep 47951 H 01/24/20 01/24/20 01/24/20 10:43 17:19 23:06 Creatine Kinase CK-MB (CK-2) Troponin I 0.114 0.079 0.075 NT-Pro-B Natriuret Pep 14246 H 01/30/20 01/31/20 02/01/20 03:45 05:39 06:14 Creatine Kinase CK-MB (CK-2) Troponin I NT-Pro-B Natriuret Pep 03265 H 93346 H 78445 H 02/02/20 02/27/20 02/27/20 04:24 08:12 08:12 Creatine Kinase 33 L CK-MB (CK-2) 2.16 Troponin I 0.013 NT-Pro-B Natriuret Pep 85117 H 02/27/20 02/28/20 02/29/20 08:12 05:44 05:35 Creatine Kinase CK-MB (CK-2) Troponin I NT-Pro-B Natriuret Pep 83692 H 43131 H 41749 H 03/02/20 03/03/20 03/11/20 05:44 05:00 04:33 Creatine Kinase CK-MB (CK-2) Troponin I NT-Pro-B Natriuret Pep 34757 H 22984 H 30213 H 03/13/20 03/15/20 03/25/20 08:40 08:44 08:40 Creatine Kinase CK-MB (CK-2) Troponin I 0.020 NT-Pro-B Natriuret Pep 78361 H 96788 H Impressions: KUB X-Ray 03/25/20 00:00 IMPRESSION: Nasogastric tube in the stomach Dilated loops of small bowel which may reflect obstruction Basilar infiltrates Modified Barium Swallow 03/27/20 00:00 IMPRESSION: ASPIRATION WITH ALL CONSISTENCIES, HOWEVER SOMEWHAT IMPROVED. PLEASE SEE SPEECH PATHOLOGIST REPORT FOR OTHER FINDINGS AND RECOMMENDATIONS. Chest X-Ray 03/28/20 00:00 IMPRESSION: NG tube is been placed. Tip lies in the left upper quadrant as described. Assessment and Plan - Diagnosis (1) Acute respiratory failure due to severe acute respiratory syndrome coronavirus 2 (SARS-CoV-2) infection Is this a current diagnosis for this admission?: Yes Plan: Significant hypoxic/hypercarbic respiratory failure secondary to COVID-19 pneumonia. Repeat COVID-19 test on 03/04/2020 showed was negative. Infection is likely resolved. Required prolonged intubation and mechanical ventilation and eventually had to get Tracheostomy done on 03/14/2020 by ENT. Currently conducting vent weaning trials to trach collar. He has actually been on trach collar for the past 2 days now at 40% FiO2 and 9L this morning. Has done well on this. However, this afternoon we had to place patient back on mechanical ventilator intermittently as he was seeming to fatigue and get more tachypneic. Appeared comfortable subsequently. I feel that, at this point, patient is able to tolerate long hours on trach collar but may occasionally need to be vented on some nights if notably fatigued. I will leave him on mechanical ventilator for some hours or possibly the rest of today and put him back on trach collar again tomorrow morning. 03/27/2020 Took patient off the vent this morning as he was doing well. Put him back on t mauro collar FiO2 40% on 6 L. We will try to keep him on trach collar throughout the day and throughout the night as well and see how he tolerates it. Hopefully his respiratory muscles should continue to get stronger and allow him to tolerate longer periods without needing mechanical ventilation. 03/28/2020 Patient was on trach collar throughout the daytime yesterday. It seems that he was placed on mechanical ventilation at some point overnight but no documentation as to why this was done or if he truly needed it. Instructed staff to keep patient completely off mechanical ventilation and rem ain on trach collar throughout the day and nighttime except if patient gets work of breathing or notably fatigued in which case we will reassess. Check venous blood gas in the morning We will get a Passy-Jo Ann valve for patient to enable his speech. We will see if patient tolerates this. Communicated with nursing that the valve is to be removed whenever patient is asleep. 03/29/2020 For some reason patient was placed on mechanical ventilation overnight against my instructions. Notably had some respiratory distress this morning during time of encounter. At that time, he was on trach collar and had been taken off the vent earlier this morning. Got hypoxic into the 60s. Also working to breathe. blood gas was drawn at the time. However his symptoms improved and completely resolved with suctioning. Likely had a mucous plugging. VBG done showed some hypercapnia however this was gotten during the time of his distress. Will repeat blood gas. We will keep off vent completely. Trach care and suctioning as needed. We will hold off on Passy-Jo Ann valve for now as patient still having some thick secretions and may not be able to tolerate. (2) Dysphagia Qualifiers: Dysphagia type: oropharyngeal phase Qualified Code(s): R13.12 - Dysphagia, oropharyngeal phase Is this a current diagnosis for this admission?: Yes Plan: Secondary to prolonged intubation. Failed MB BS on 03/19/2020 and again on 03/27/2020 After long conversations with patient, patient still remains under the impression that he will be able to swallow better if given solid foods. I have explained to him that after failing on different consistencies of liquid he needs to be a strict n.p.o. and he will aspirate with all consistencies of foods or liquids. Strict n.p.o. recommended. I have discussed PEG tube elaborately with patient that he still refuses at this adamantly. I have explained to him that Dobbhoff/NG tube is not an adequate source of nutrition. Currently stuck with using NG tube for nutrition. Continue speech/swallow rehabilitation (3) Critical illness polyneuropathy Is this a current diagnosis for this admission?: Yes Plan: Has had a very prolonged stay in the hospital and had a prolonged ICU stay. He will need very intensive physical and occupational therapy if we hope to get him anywhere close to his prior baseline physical functioning. Planning for placement at LTAC facility as he will need at least 30 days stay for aggressive PT, OT, speech therapy and continuation of vent weaning/trach collar trials. Performed a peer to peer review 03/26/[address] Banks ([facility]) who declined approval at this point because he states that patient cannot go to LTAC with NG tube as this is not considered an adequate means of long-term nutrition. Gave a phone number for p.o. [phone]. home economics extension worker working on appealing with [facility] regarding the denial for LTAC placement. Currently patient is adamantly refused PEG tube and we are stuck with using a Dobbhoff for nutrition. (4) Pneumonia Qualifiers: Pneumonia type: due to unspecified organism Laterality: bilateral Is this a current diagnosis for this admission?: Yes (5) Tracheostomy in place Is this a current diagnosis for this admission?: Yes (6) Cardiomyopathy Qualifiers: Cardiomyopathy type: dilated Qualified Code(s): I42.0 - Dilated cardiomyopathy Is this a current diagnosis for this admission?: Yes (7) UTI (urinary tract infection) due to Enterococcus Is this a current diagnosis for this admission?: Yes (8) Septic shock Is this a current diagnosis for this admission?: Yes - Time Time Spent with patient: 15-24 minutes Anticipated Discharge Disposition: [facility] Care Facility Anticipated Discharge Timeframe: when bed available
[2020-03-29 17:20] LABS: ARTERIAL BLOOD BASE EXCESS 9.8 mmol/L; ARTERIAL BLOOD H2CO3 1.46 mmol/L (1.05-1.35); ARTERIAL BLOOD HCO3 34.5 mmol/L (20-24); ARTERIAL BLOOD O2 SATURATION 96.5 % (94-98); ARTERIAL BLOOD PCO2 48.5 mmHg (35-45); ARTERIAL BLOOD PH 7.47 (7.35-7.45); ARTERIAL BLOOD PO2 81.8 mmHg (80-100)
[2020-03-29 17:22] LABS: ARTERIAL BLOOD FIO2 40%
[2020-03-29] MEDS: RINGERS SOLUTION,LACTATED 1,000 ML IV PRN (22:30)
[2020-03-29 23:18] LABS: APPEARANCE,URINE CLOUDY; BILIRUBIN,URINE NEGATIVE (NEGATIVE); COLOR,URINE YELLOW; GLUCOSE, URINE 150 mg/dL (NEGATIVE); KETONES,URINE TRACE mg/dL (NEGATIVE); PROTEIN,URINE 100 mg/dL (NEGATIVE); URINE SPECIFIC GRAVITY 1.015
[2020-03-30] MEDS: OXYCODONE HCL IR 5 MG TABLET PO PRN ×4 (01:58→22:54)
[2020-03-30] MEDS: DIPHENHYDRAMINE HCL 50 MG/ML VIAL IV PRN ×2 (01:59→18:07)
[2020-03-30] MEDS ORDERED: ACETAMINOPHEN SOLN 325 MG/10.15 ML UDCUP ONE (02:22)
[2020-03-30] MEDS: ACETAMINOPHEN SOLN 325 MG/10.15 ML UDCUP NG PRN (02:48)
[2020-03-30] MEDS: TRAZODONE HCL 50 MG TABLET NG PRN (02:49)
[2020-03-30] MEDS: RINGERS SOLUTION,LACTATED 1,000 ML IV PRN (06:25)
[2020-03-30] MEDS: INSULIN LISPRO 100 UNIT/ML 3 ML VIAL SUBCUT SCH ×4 (06:50→17:05)
[2020-03-30] MEDS: METOPROLOL SUCCINATE 25 MG TAB.SR.24H PO SCH (09:33)
[2020-03-30] MEDS: FUROSEMIDE 20 MG TABLET PO SCH (09:33)
[2020-03-30] MEDS: LACTULOSE SYRUP 20 GM/30 ML UDCUP PO SCH ×3 (09:33→23:46)
[2020-03-30] MEDS: SENNOSIDES/DOCUSATE 8.6-50 MG 1 EACH TABLET PO SCH ×2 (09:33→10:01)
[2020-03-30] MEDS: LISINOPRIL 5 MG TABLET PO SCH ×2 (09:33→22:53)
[2020-03-30] MEDS: PANTOPRAZOLE SODIUM 40 MG VIAL IV SCH (09:33)
[2020-03-30] MEDS: THIAMINE HCL 100 MG TABLET PO SCH (09:33)
[2020-03-30] MEDS: ENOXAPARIN SODIUM INJ 40 MG/0.4 ML DISP.SYRIN SUBCUT SCH (09:35)
[2020-03-30] MEDS ORDERED: INSULIN GLARGINE,HUM.REC.ANLOG 1,000 UNIT/10 ML VIAL SUBCUT SCH (10:00)
[2020-03-30 10:10] LABS: ABSOLUTE EOSINOPHILS # (AUTO) 0.2 10^3/uL (0.0-0.6); ABSOLUTE MONOCYTES (AUTO) 1.2 10^3/uL (0.1-1.4); BASOPHILS % (AUTO) 0.3 % (0-2); EOSINOPHILS % (AUTO) 1.3 % (0-6); HEMATOCRIT 21.8 % (37.9-51.0); LYMPHOCYTES % (AUTO) 6.2 % (13-45); MEAN CORPUSCULAR HEMOGLOBIN 27.9 pg (27.0-33.4); MEAN CORPUSCULAR HGB CONC 32.3 g/dL (32.0-36.0); MEAN CORPUSCULAR VOLUME 87 fl (80-97); PLATELET COUNT 329 10^3/uL (150-450); RED BLOOD COUNT 2.52 10^6/uL (4.35-5.55); RED CELL DISTRIBUTION WIDTH 17.5 % (11.5-14.0); SEGMENTED NEUTROPHILS % (AUTO) 84.2 % (42-78); TOTAL CELLS COUNTED % (AUTO) 100 %; WHITE BLOOD COUNT 15.4 10^3/uL (4.0-10.5)
[2020-03-30 10:12] LABS: VENOUS BLOOD BASE EXCESS 13.7 mmol/L; VENOUS BLOOD HCO3 40.5 mmol/L (20-32); VENOUS BLOOD PH 7.39 (7.30-7.42)
[2020-03-30 10:17] LABS: VENOUS BLOOD PCO2 67.8 mmHg (35-63)
[2020-03-30] MEDS: INSULIN GLARGINE,HUM.REC.ANLOG 1,000 UNIT/10 ML VIAL SUBCUT SCH (10:20)
[2020-03-30 10:29] LABS: ALBUMIN 2.7 g/dL (3.5-5.0); ALKALINE PHOSPHATASE 111 U/L (38-126); ANION GAP 6 (5-19); ASPARTATE AMINO TRANSFERASE 13 U/L (17-59); BILIRUBIN,DIRECT 0.4 mg/dL (0.0-0.4); BILIRUBIN,TOTAL 0.4 mg/dL (0.2-1.3); BLOOD UREA NITROGEN 35 mg/dL (7-20); CALCIUM 8.4 mg/dL (8.4-10.2); CARBON DIOXIDE 38 mmol/L (22-30); CHLORIDE 94 mmol/L (98-107); GLUCOSE 139 mg/dL (75-110); PHOSPHORUS 3.3 mg/dL (2.5-4.5); POTASSIUM 4.5 mmol/L (3.6-5.0); TOTAL PROTEIN 5.6 g/dL (6.3-8.2)
--- NOTE | 2020-03-30 13:01 | RADIOLOGY REPORT (SQ) ---
EXAM DESCRIPTION: CHEST SINGLE VIEW IMAGES COMPLETED DATE/TIME: 03/30/2020 12:07 pm REASON FOR STUDY: Increased chest congestion COMPARISON: 03/19/2020 NUMBER OF VIEWS: One view. TECHNIQUE: Single frontal radiographic image of the chest acquired. LIMITATIONS: None. FINDINGS: LUNGS AND PLEURA: Worsening bilateral airspace disease. No evidence of cavitation. No pn eumothorax. MEDIASTINUM AND HEART: Stable heart size and mediastinal structures. SUPPORT DEVICES: Appropriate location without change. BONY STRUCTURES: No acute findings. HARDWARE: None. OTHER: No other significant finding. IMPRESSION: Worsening sepsis or edema. Reading location - IP/workstation name: [email or web address]
[2020-03-30] MEDS ORDERED: MEROPENEM 1 GM VIAL IV SCH (17:00)
--- NOTE | 2020-03-30 17:20 | PDOC PROGRESS REPORT ---
Subjective Progress Note for:: 03/30/20 Subjective:: Today patient was asking about plan of care which we discussed together. He denied any chest pain. He has been experiencing more cough. Also discussed with patient's nurse who notes that patient does have some thickened secretions. Reason For Visit: HYPOXEMIC RESPIRATORY FAILURE, HEMODYNAMIC Physical Exam Vital Signs: Temp Pulse Resp BP Pulse Ox 98.0 F 93 20 117/67 94 03/30/20 12:00 03/30/20 14:00 03/30/20 12:00 03/30/20 12:00 03/30/20 12:00 Intake & Output 03/29/20 03/30/20 03/31/20 06:59 06:59 06:59 Intake Total 10 4906 1080 Output Total 1475 1700 Balance -1465 3206 1080 Weight 65.8 kg 66.1 kg General appearance: PRESENT: no acute distress, cooperative Neck exam: PRESENT: tracheostomy Respiratory exam: PRESENT: crackles, symmetrical, unlabored. ABSENT: tachypnea, wheezes Cardiovascular exam: PRESENT: RRR, +S1, +S2. ABSENT: tachycardia GI/Abdominal exam: PRESENT: soft. ABSENT: rebound, rigid, tenderness Neurological exam: PRESENT: alert, awake, oriented to person, oriented to place, oriented to time Psychiatric exam: ABSENT: agitated, anxious Results Laboratory Results: 03/30/20 09:52 03/30/20 09:52 03/29/20 03/29/20 03/30/20 17:00 22:20 09:52 WBC 15.4 H RBC 2.52 L Hgb 7.0 L Hct 21.8 L MCV 87 MCH 27.9 MCHC 32.3 RDW 17.5 H Plt Count 329 Seg Neutrophils % 84.2 H Carbonic Acid 1.46 H HCO3/H2CO3 Ratio 23:1 ABG pH 7.47 H ABG pCO2 48.5 H ABG pO2 81.8 ABG HCO3 34.5 H ABG O2 Saturation 96.5 ABG Base Excess 9.8 VBG pH VBG pCO2 VBG HCO3 VBG Base Excess FiO2 40% Sodium Potassium Chloride Carbon Dioxide Anion Gap BUN Creatinine Est GFR ( Amer) Glucose Calcium Phosphorus Magnesium Total Bilirubin AST Alkaline Phosphatase Total Protein Albumin Urine Color YELLOW Urine Appearance CLOUDY Urine pH 6.0 Ur Specific [place] 1.015 Urine Protein 100 H Urine Glucose (UA) 150 H Urine Ketones TRACE H Urine Blood NEGATIVE Urine RBC (Auto) 3 03/30/20 03/30/20 09:52 09:52 WBC RBC Hgb Hct MCV MCH MCHC RDW Plt Count Seg Neutrophils % Carbonic Acid HCO3/H2CO3 Ratio ABG pH ABG pCO2 ABG pO2 ABG HCO3 ABG O2 Saturation ABG Base Excess VBG pH 7.39 VBG pCO2 67.8 H* VBG HCO3 40.5 H VBG Base Excess 13.7 FiO2 Sodium 138.2 Potassium 4.5 Chloride 94 L Carbon Dioxide 38 H Anion Gap 6 BUN 35 H Creatinine 0.59 Est GFR ( Amer) > 60 Glucose 139 H Calcium 8.4 Phosphorus 3.3 Magnesium 2.1 Total Bilirubin 0.4 AST 13 L Alkaline Phosphatase 111 Total Protein 5.6 L Albumin 2.7 L Urine Color Urine Appearance Urine pH Ur Specific [place] Urine Protein Urine Glucose (UA) Urine Ketones Urine Blood Urine RBC (Auto) 01/24/20 01/24/20 01/24/20 00:03 00:03 04:20 Creatine Kinase 80 CK-MB (CK-2) 0.63 Troponin I 0.132 0.133 NT-Pro-B Natriuret Pep 64536 H 01/24/20 01/24/20 01/24/20 10:43 17:19 23:06 Creatine Kinase CK-MB (CK-2) Troponin I 0.114 0.079 0.075 NT-Pro-B Natriuret Pep 13148 H 01/30/20 01/31/20 02/01/20 03:45 05:39 06:14 Creatine Kinase CK-MB (CK-2) Troponin I NT-Pro-B Natriuret Pep 70013 H 70801 H 91959 H 02/02/20 02/27/20 02/27/20 04:24 08:12 08:12 Creatine Kinase 33 L CK-MB (CK-2) 2.16 Troponin I 0.013 NT-Pro-B Natriuret Pep 34432 H 02/27/20 02/28/20 02/29/20 08:12 05:44 05:35 Creatine Kinase CK-MB (CK-2) Troponin I NT-Pro-B Natriuret Pep 24706 H 99639 H 09357 H 08/15/20 08/16/20 08/24/20 05:44 05:00 04:33 Creatine Kinase CK-MB (CK-2) Troponin I NT-Pro-B Natriuret Pep 94374 H 99685 H 87533 H 03/13/20 03/15/20 03/25/20 08:40 08:44 08:40 Creatine Kinase CK-MB (CK-2) Troponin I 0.020 NT-Pro-B Natriuret Pep 59216 H 33914 H Impressions: KUB X-Ray 03/25/20 00:00 IMPRESSION: Nasogastric tube in the stomach Dilated loops of small bowel which may reflect obstruction Basilar infiltrates Modified Barium Swallow 03/27/20 00:00 IMPRESSION: ASPIRATION WITH ALL CONSISTENCIES, HOWEVER SOMEWHAT IMPROVED. PLEASE SEE SPEECH PATHOLOGIST REPORT FOR OTHER FINDINGS AND RECOMMENDATIONS. Chest X-Ray 03/30/20 00:00 IMPRESSION: Worsening sepsis or edema. Assessment and Plan - Diagnosis (1) Acute respiratory failure due to severe acute respiratory syndrome coronavirus 2 (SARS-CoV-2) infection Is this a current diagnosis for this admission?: Yes Plan: Significant hypoxic/hypercarbic respiratory failure secondary to COVID-19 pneumonia. Repeat COVID-19 test on 03/04/2020 showed was negative. Infection is likely resolved. Required prolonged intubation and mechanical ventilation and eventually had to get Tracheostomy done on 03/14/2020 by ENT. Currently conducting vent weaning trials to trach collar. He has actually been on trach collar for the past 2 days now at 40% FiO2 and 9L this morning. Has done well on this. However, this afternoon we had to place patient back on mechanical ventilator intermittently as he was seeming to fatigue and get more tachypneic. Appeared comfortable subsequently. I feel that, at this point, patient is able to tolerate long hours on trach collar but may occasionally need to be vented on some nights if notably fatigued. I will leave him on mechanical ventilator for some hours or possibly the rest of today and put him back on trach collar again tomorrow morning. 03/27/2020 Took patient off the vent this morning as he was doing well. Put him back on trach collar FiO2 40% on 6 L. We will try to keep him on trach collar throughout the day and throughout the night as well and see how he tolerates it. Hopefully his respiratory muscles should continue to get stronger and allow him to tolerate longer periods without needing mechanical ventilation. 03/28/2020 Patient was on trach collar throughout the daytime yesterday. It seems that he was placed on mechanical ventilation at some point overnight but no documentation as to why this was done or if he truly needed it. Instructed staff to keep patient completely off mechanical ventilation and remain on trach collar throughout the day and nighttime except if patient gets work of breathing or notably fatigued in which case we will reassess. Check venous blood gas in the morning We will get a Pass[place] valve for patient to enable his speech. We will see if patient tolerates this. Communicated with nursing that the valve is to be removed whenever patient is asleep. 03/29/2020 For some reason patient was placed on mechanical ventilation overnight against my instructions. Notably had some respiratory distress this morning during time of encounter. At that time, he was on trach collar and had been taken off the vent earlier this morning. Got hypoxic into the 60s. Also working to breathe. blood gas was drawn at the time. However his symptoms improved and completely resolved with suctioning. Likely had a mucous plugging. VBG done showed some hypercapnia however this was gotten during the time of his distress. Will repeat blood gas. We will keep off vent completely. Trach care and suctioning as needed. We will hold off on Pass[place] valve for now as patient still having some thick secretions and may not be able to tolerate. 03/30/2020 Remains off the vent at nighttime. Continue with trach collar during the day. Patient is once again hypercarbic this morning but with metabolic compensation. Patient will likely benefit from BiPAP nightly. I have discussed with respirat ory therapist and we have capabilities of attaching the BiPAP to his trach tube. Repeat a VBG tomorrow morning. (2) Pneumonia Qualifiers: Pneumonia type: due to unspecified organism Laterality: bilateral Is this a current diagnosis for this admission?: Yes Plan: Received several days of IV antibiotics earlier in hospital course. Patient notably had aspiration episodes. Chest x-ray today shows significant worsening of what is likely aspiration pneumonia. We will start patient on only a few days of IV meropenem for treatment of hospital associated aspiration pneumonia. (3) Dysphagia Qualifiers: Dysphagia type: oropharyngeal phase Qualified Code(s): R13.12 - Dysphagia, oropharyngeal phase Is this a current diagnosis for this admission?: Yes Plan: Secondary to prolonged intubation. Failed NOA BS on 03/19/2020 and again on 03/27/2020 After long conversations with patient, patient still remains under the impression that he will be able to swallow better if given solid foods. I have explained to him that after failing on different consistencies of liquid he needs to be a strict n.p.o. and he will aspirate with all consistencies of foods or liquids. Strict n.p.o. recommended. I have discussed PEG tube elaborately with patient that he still refuses at this adamantly. I have explained to him that Dobbhoff/NG tube is not an adequate source of nutrition. Currently stuck with using NG tube for nutrition. Continue speech/swallow rehabilitation (4) Critical illness polyneuropathy Is this a current diagnosis for this admission?: Yes Plan: Has had a very prolonged stay in the hospital and had a prolonged ICU stay. He will need very intensive physical and occupational therapy if we hope to get him anywhere close to his prior baseline physical functioning. Planning for placement at LTAC facility as he will need at least 30 days stay for aggressive PT, OT, speech therapy and continuation of vent weaning/trach collar trials. Performed a peer to peer review 03/26/[address] Banks ([facility]) who declined approval at this point because he states that patient cannot go to LTAC with NG tube as this is not considered an adequate means of long-term nutrition. Gave a phone number for p.o. [phone]. general utility worker working on appealing with [facility] regarding the denial for LTAC placement. Currently patient is adamantly refused PEG tube and we are stuck with using a Dobbhoff for nutrition. (5) Tracheostomy in place Is this a current diagnosis for this admission?: Yes Plan: Secondary to respiratory failure from COVID-19 pneumonia. Routine trach care. (6) Cardiomyopathy Qualifiers: Cardiomyopathy type: dilated Qualified Code(s): I42.0 - Dilated cardiomyopathy Is this a current diagnosis for this admission?: Yes Plan: TTE 01/2020 revealed EF of 40 to 45% with notable dilated cardiomyopathy and areas of hypokinesis. However no valvular lesions. Repeat TTE on 03/27/2020 as recommended by cardiology for EF reassessment shows EF of 35 to 40% with moderate to severe LV hypokinesis in the anterior and anterior septal schwarz. Currently not in acute heart failure. low-dose lisinopril, Toprol-XL and p.o. Lasix. Evaluated by supervisor sample. Given patient's significant comorbidities, ischemic work-up will be deferred for now. (7) UTI (urinary tract infection) due to Enterococcus Is this a current diagnosis for this admission?: Yes Plan: Has received treatment for this earlier in hospitalization. (8) Septic shock Is this a current diagnosis for this admission?: Yes Plan: Long resolved. Currently hemodynamically stable. - Time Time Spent with patient: 15-24 minutes Anticipated Discharge Disposition: [facility] Anticipated Discharge Timeframe: when bed available
[2020-03-30] MEDS ORDERED: MEROPENEM 1 GM VIAL ONE (17:53)
[2020-03-30] MEDS: MEROPENEM 1 GM in NORMAL SALINE 50 ML IV SCH (18:21)
[2020-03-31] MEDS: INSULIN LISPRO 100 UNIT/ML 3 ML VIAL SUBCUT SCH ×4 (00:11→18:12)
[2020-03-31] MEDS: MEROPENEM 1 GM in NORMAL SALINE 50 ML IV SCH ×3 (01:42→18:29)
[2020-03-31] MEDS: DIPHENHYDRAMINE HCL 50 MG/ML VIAL IV PRN (03:00)
[2020-03-31] MEDS ORDERED: SCOPOLAMINE HYDROBROMIDE 1.5 MG PATCH.TD72 TD SCH ×2 (03:15→08:00)
[2020-03-31] MEDS: ACETAMINOPHEN SOLN 325 MG/10.15 ML UDCUP NG PRN (03:34)
[2020-03-31] MEDS ORDERED: SCOPOLAMINE HYDROBROMIDE 1.5 MG PATCH.TD72 ONE (04:44)
[2020-03-31] MEDS: LACTULOSE SYRUP 20 GM/30 ML UDCUP PO SCH (09:41)
[2020-03-31] MEDS: METOPROLOL SUCCINATE 25 MG TAB.SR.24H PO SCH (10:03)
[2020-03-31] MEDS: PANTOPRAZOLE SODIUM 40 MG PACKET.DR NG SCH (10:03)
[2020-03-31] MEDS: FUROSEMIDE 20 MG TABLET PO SCH (10:04)
[2020-03-31] MEDS: INSULIN GLARGINE,HUM.REC.ANLOG 1,000 UNIT/10 ML VIAL SUBCUT SCH (10:04)
[2020-03-31] MEDS: LISINOPRIL 5 MG TABLET PO SCH (10:04)
[2020-03-31] MEDS: THIAMINE HCL 100 MG TABLET PO SCH (10:04)
[2020-03-31] MEDS: SENNOSIDES/DOCUSATE 8.6-50 MG 1 EACH TABLET PO SCH (10:05)
[2020-03-31] MEDS: ENOXAPARIN SODIUM INJ 40 MG/0.4 ML DISP.SYRIN SUBCUT SCH (10:05)
[2020-03-31 10:48] LABS: HEMATOCRIT 27.2 % (37.9-51.0); HEMOGLOBIN 8.7 g/dL (13.5-17.0); MEAN CORPUSCULAR HEMOGLOBIN 27.8 pg (27.0-33.4); MEAN CORPUSCULAR HGB CONC 31.9 g/dL (32.0-36.0); MEAN CORPUSCULAR VOLUME 87 fl (80-97); PLATELET COUNT 373 10^3/uL (150-450); RED BLOOD COUNT 3.12 10^6/uL (4.35-5.55); RED CELL DISTRIBUTION WIDTH 17.9 % (11.5-14.0); WHITE BLOOD COUNT 14.2 10^3/uL (4.0-10.5)
[2020-03-31 10:54] LABS: VENOUS BLOOD BASE EXCESS 12.5 mmol/L; VENOUS BLOOD HCO3 41.1 mmol/L (20-32); VENOUS BLOOD PH 7.35 (7.30-7.42)
[2020-03-31 10:55] LABS: VENOUS BLOOD PCO2 75.6 mmHg (35-63)
[2020-03-31 14:59] LABS: VENOUS BLOOD BASE EXCESS 12.7 mmol/L; VENOUS BLOOD HCO3 38.8 mmol/L (20-32); VENOUS BLOOD PCO2 59.2 mmHg (35-63); VENOUS BLOOD PH 7.43 (7.30-7.42)
--- NOTE | 2020-03-31 17:30 | PDOC PROGRESS REPORT ---
Subjective Progress Note for:: 03/31/20 Subjective:: Having increased secretions now. He felt short of breath mildly this morning. Still requesting food but I have explained to him that he is aspirating now we are actually currently treating him for worsening of pneumonia due to aspiration. Hopefully getting noncooperative with staff and refusing blood draws. I was able to convince him to allow for blood draws this morning. Reason For Visit: HYPOXEMIC RESPIRATORY FAILURE, HEMODYNAMIC Physical Exam Vital Signs: Temp Pulse Resp BP Pulse Ox 98.1 F 81 12 127/75 H 100 03/31/20 12:28 03/31/20 14:00 03/31/20 16:10 03/31/20 12:28 03/31/20 12:28 Intake & Output 03/30/20 03/31/20 04/01/20 06:59 06:59 06:59 Intake Total 4906 2739 250 Output Total 1700 1125 Balance 3206 1614 250 Weight 66.1 kg 67 kg General appearance: PRESENT: no acute distress Neck exam: PRESENT: tracheostomy. ABSENT: JVD Respiratory exam: PRESENT: crackles, symmetrical, unlabored. ABSENT: accessory muscle use, tachypnea, wheezes Cardiovascular exam: PRESENT: RRR, +S1, +S2. ABSENT: tachycardia GI/Abdominal exam: PRESENT: soft. ABSENT: rebound, rigid, tenderness Neurological exam: PRESENT: alert, awake, oriented to person, oriented to place, oriented to time Results Laboratory Results: 03/31/20 10:35 03/30/20 09:52 03/31/20 03/31/20 03/31/20 10:35 10:35 14:49 WBC 14.2 H RBC 3.12 L Hgb 8.7 L Hct 27.2 L MCV 87 MCH 27.8 MCHC 31.9 L RDW 17.9 H Plt Count 373 VBG pH 7.35 7.43 H VBG pCO2 75.6 H* 59.2 VBG HCO3 41.1 H 38.8 H VBG Base Excess 12.5 12.7 03/29/20 22:20 Varner Catheter Urine Culture - Final C.albicans/C.dubliniensis 01/24/20 01/24/20 01/24/20 00:03 00:03 04:20 Creatine Kinase 80 CK-MB (CK-2) 0.63 Troponin I 0.132 0.133 NT-Pro-B Natriuret Pep 29592 H 01/24/20 01/24/20 01/24/20 10:43 17:19 23:06 Creatine Kinase CK-MB (CK-2) Troponin I 0.114 0.079 0.075 NT-Pro-B Natriuret Pep 77839 H 01/30/20 01/31/20 02/01/20 03:45 05:39 06:14 Creatine Kinase CK-MB (CK-2) Troponin I NT-Pro-B Natriuret Pep 62184 H 04878 H 43574 H 02/02/20 02/27/20 02/27/20 04:24 08:12 08:12 Creatine Kinase 33 L CK-MB (CK-2) 2.16 Troponin I 0.013 NT-Pro-B Natriuret Pep 78667 H 02/27/20 02/28/20 02/29/20 08:12 05:44 05:35 Creatine Kinase CK-MB (CK-2) Troponin I NT-Pro-B Natriuret Pep 31983 H 00631 H 25285 H 03/02/20 03/03/20 03/11/20 05:44 05:00 04:33 Creatine Kinase CK-MB (CK-2) Troponin I NT-Pro-B Natriuret Pep 92801 H 51380 H 27530 H 03/13/20 03/15/20 03/25/20 08:40 08:44 08:40 Creatine Kinase CK-MB (CK-2) Troponin I 0.020 NT-Pro-B Natriuret Pep 05536 H 19603 H Impressions: KUB X-Ray 03/25/20 00:00 IMPRESSION: Nasogastric tube in the stomach Dilated loops of small bowel which may reflect obstruction Basilar infiltrates Modified Barium Swallow 03/27/20 00:00 IMPRESSION: ASPIRATION WITH ALL CONSISTENCIES, HOWEVER SOMEWHAT IMPROVED. PLEASE SEE SPEECH PATHOLOGIST REPORT FOR OTHER FINDINGS AND RECOMMENDATIONS. Chest X-Ray 03/30/20 00:00 IMPRESSION: Worsening sepsis or edema. Assessment and Plan - Diagnosis (1) Acute respiratory failure due to severe acute respiratory syndrome coronavirus 2 (SARS-CoV-2) infection Is this a current diagnosis for this admission?: Yes Plan: Significant hypoxic/hypercarbic respiratory failure secondary to COVID-19 pneumonia. Repeat COVID-19 test on 03/04/2020 showed was negative. Infection is likely resolved. Required prolonged intubation and mechanical ventilation and eventually had to get Tracheostomy done on 03/14/2020 by ENT. Currently conducting vent weaning trials to trach collar. He has actually been on trach collar for the past 2 days now at 40% FiO2 and 9L this morning. Has done well on this. However, this afternoon we had to place patient back on mechanical ventilator intermittently as he was seeming to fatigue and get more tachypneic. Appeared comfortable subsequently. I feel that, at this point, patient is able to tolerate long hours on trach collar but may occasionally need to be vented on some nights if notably fatigued. I will leave him on mechanical ventilator for some hours or possibly the rest of today and put him back on trach collar again tomorrow morning. 03/27/2020 Took patient off the vent this morning as he was doing well. Put him back on trach collar FiO2 40% on 6 L. We will try to keep him on trach collar throughout the day and throughout the night as well and see how he tolerates it. Hopefully his respiratory muscles should continue to get stronger and allow him to tolerate longer periods without needing mechanical ventilation. 03/28/2020 Patient was on trach collar throughout the daytime yesterday. It seems that he was placed on mechanical ventilation at some point overnight but no documentation as to why this was done or if he truly needed it. Instructed staff to keep patient completely off mechanical ventilation and remain on trach collar throughout the day and nighttime except if patient gets work of breathing or notably fatigued in which case we will reassess. Check venous blood gas in the morning We will get a Passy-[place] valve for patient to enable his speech. We will see if patient tolerates this. Communicated with nursing that the valve is to be removed whenever patient is asleep. 03/29/2020 For some reason patient was placed on mechanical ventilation overnight against my instructions. Notably had some respiratory distress this morning during time of encounter. At that time, he was on trach collar and had been taken off the vent earlier this morning. Got hypoxic into the 60s. Also working to breathe. blood gas was drawn at the time. However his symptoms improved and completely resolved with suctioning. Likely had a mucous plugging. VBG done showed some hypercapnia however this was gotten during the time of his distress. Will repeat blood gas. We will keep off vent completely. Trach care and suctioning as needed. We will hold off on Pass[place] valve for now as patient still having some thick secretions and may not be able to tolerate. 03/30/2020 Remains off the vent at nighttime. Continue with trach collar during the day. Patient is once again hypercarbic this morning but with metabolic compensation. Patient will likely benefit from BiPAP nightly. I have discussed with respiratory therapist and we have capabilities of attaching the BiPAP to his trach tube. Repeat a VBG tomorrow morning. 03/31/2020 Patient noted to be more hypercapnic this morning though compensated. This is despite sleeping with BiPAP last night. He is receiving treatment for pneumonia. We made adjustments to his BiPAP settings and repeat venous blood gas shows significant improvement of his hypercapnia. Currently on BiPAP 01/01 at FiO2 of 70% but satting 100% so we will decrease FiO2 down to 40%. We will leave on BiPAP through today. (2) Pneumonia Qualifiers: Pneumonia type: due to unspecified organism Laterality: bilateral Is this a current diagnosis for this admission?: Yes Plan: Received several days of IV antibiotics earlier in hospital course. Patient notably had aspiration episodes. Chest x-ray today shows significant worsening of what is likely aspiration pneumonia. Also having increased thick secretions requiring suctioning every 2 hours. Will treat with a few days of IV meropenem [day 2] for hospital associated aspiration pneumonia. (3) Dysphagia Qualifiers: Dysphagia type: oropharyngeal phase Qualified Code(s): R13.12 - Dysphagia, oropharyngeal phase Is this a current diagnosis for this admission?: Yes Plan: Secondary to prolonged intubation. Failed MB BS on 03/19/2020 and again on 03/27/2020 Strict n.p.o. I have discussed PEG tube elaborately with patient that he still refuses at this adamantly. I have explained to him that Dobbhoff/NG tube is not an adequate source of long-term nutrition. Currently stuck with using NG tube for nutrition. Dobbhoff clogged so we will need to replace and check repeat x-ray Continue speech/swallow rehabilitation (4) Critical illness polyneuropathy Is this a current diagnosis for this admission?: Yes Plan: Has had a very prolonged stay in the hospital and had a prolonged ICU stay. He will need very intensive physical and occupational therapy if we hope to get him anywhere close to his prior baseline physical functioning. Planning for placement at LTAC facility as he will need at least 30 days stay for aggressive PT, OT, speech therapy and continuation of vent weaning/trach collar trials. Performed a peer to peer review 03/26/[address] [facility] who declined approval at this point because he states that patient cannot go to LTAC with NG tube as this is not considered an adequate means of long-term nutrition. Gave a phone number for p.o. [phone]. track repair worker working on appealing with [facility] regarding the denial for LTAC placement. Currently patient is adamantly refused PEG tube and we are stuck with using a Dobbhoff for nutrition. (5) Tracheostomy in place Is this a current diagnosis for this admission?: Yes Plan: Secondary to respiratory failure from COVID-19 pneumonia. Routine trach care. Scopolamine patch for secretions. (6) Cardiomyopathy Qualifiers: Cardiomyopathy type: dilated Qualified Code(s): I42.0 - Dilated cardiomyopathy Is this a current diagnosis for this admission?: Yes Plan: TTE 01/2020 revealed EF of 40 to 45% with notable dilated cardiomyopathy and areas of hypokinesis. However no valvular lesions. Repeat TTE on 03/27/2020 as recommended by cardiology for EF reassessment shows EF of 35 to 40% with moderate to severe LV hypokinesis in the anterior and anterior septal schwarz. Currently not in acute heart failure. low-dose lisinopril, Toprol-XL and p.o. Lasix. Evaluated by cat driver. Given patient's significant comorbidities, ischemic work-up will be deferred for now. (7) UTI (urinary tract infection) due to Enterococcus Is this a current diagnosis for this admission?: Yes Plan: Has received treatment for this earlier in hospitalization. (8) Septic shock Is this a current diagnosis for this admission?: Yes Plan: Long resolved. Currently hemodynamically stable. - Time Anticipated Discharge Disposition: [facility] Anticipated Discharge Timeframe: Undetermined
[2020-03-31] MEDS ORDERED: MORPHINE SULFATE 10 MG/ML INJ ONE (22:29)
[2020-03-31] MEDS ORDERED: MORPHINE SULFATE 10 MG/ML INJ IV ONE (23:00)
[2020-04-01] MEDS: LACTULOSE SYRUP 20 GM/30 ML UDCUP PO SCH ×3 (00:09→21:30)
[2020-04-01] MEDS: TRAZODONE HCL 50 MG TABLET NG PRN (00:10)
[2020-04-01] MEDS: OXYCODONE HCL IR 5 MG TABLET PO PRN ×2 (00:10→07:06)
[2020-04-01] MEDS: DIPHENHYDRAMINE HCL 50 MG/ML VIAL IV PRN ×2 (00:10→07:06)
[2020-04-01] MEDS: LISINOPRIL 5 MG TABLET PO SCH ×3 (00:10→21:29)
--- NOTE | 2020-04-01 00:35 | RADIOLOGY REPORT (SQ) ---
EXAM DESCRIPTION: X-RAY ABDOMEN, ONE VIEW CLINICAL HISTORY: Evaluate nasogastric tube COMPARISON: Chest x-ray March 30, 2020 TECHNIQUE: [Single view of the abdomen and pelvis] FINDINGS: Overlying EKG leads. Multifocal opacities are present within the partially visualized bilateral lung bases. Status post placement of enteric tube with distal tip in the expected location of the stomach. There is no evidence of free air under the hemidiaphragms. Nonspecific partially visualized bowel gas pattern. No suspicious lytic or blastic osseous lesions are. IMPRESSION: Status post placement of enteric tube with distal tip in the expected location of the stomach.
[2020-04-01] MEDS: GLUCAGON,HUMAN RECOMB 1 MG INJ IM PRN (00:40)
[2020-04-01] MEDS: INSULIN LISPRO 100 UNIT/ML 3 ML VIAL SUBCUT SCH ×4 (01:26→21:31)
[2020-04-01] MEDS: MEROPENEM 1 GM in NORMAL SALINE 50 ML IV SCH ×2 (03:32→11:42)
[2020-04-01] MEDS: ACETAMINOPHEN SOLN 325 MG/10.15 ML UDCUP NG PRN (03:55)
[2020-04-01] MEDS: FUROSEMIDE 20 MG TABLET PO SCH (11:39)
[2020-04-01] MEDS: THIAMINE HCL 100 MG TABLET PO SCH (11:39)
[2020-04-01] MEDS: SENNOSIDES/DOCUSATE 8.6-50 MG 1 EACH TABLET PO SCH (11:39)
[2020-04-01] MEDS: METOPROLOL SUCCINATE 25 MG TAB.SR.24H PO SCH (11:40)
[2020-04-01] MEDS: ENOXAPARIN SODIUM INJ 40 MG/0.4 ML DISP.SYRIN SUBCUT SCH (11:41)
[2020-04-01] MEDS: PANTOPRAZOLE SODIUM 40 MG PACKET.DR NG SCH (11:47)
[2020-04-01] MEDS: MORPHINE SULFATE 10 MG/ML INJ IV PRN (14:15)
[2020-04-01] MEDS ORDERED: LORAZEPAM INJ 2 MG/1 ML VIAL ONE (16:49)
[2020-04-01] MEDS ORDERED: LORAZEPAM INJ 2 MG/1 ML VIAL IV ONE (17:15)
[2020-04-01] MEDS: INSULIN GLARGINE,HUM.REC.ANLOG 1,000 UNIT/10 ML VIAL SUBCUT SCH (17:15)
--- NOTE | 2020-04-01 18:11 | PDOC PROGRESS REPORT ---
Subjective Progress Note for:: 04/01/20 Subjective:: Patient trach was suctioned and showed tubefeed-like substance noted in the canister. As such patient tube feed had to be held. Surprisingly, patient was actually having low residuals from tube feed of about 30 cc throughout the course of yesterday and today. He requested food and ice. When denied he pulled out his NG tube. We will put him on D5 saline today. Reason For Visit: HYPOXEMIC RESPIRATORY FAILURE, HEMODYNAMIC Physical Exam Vital Signs: Temp Pulse Resp BP Pulse Ox 98.5 F 93 16 126/68 H 93 04/01/20 12:10 04/01/20 14:00 04/01/20 12:10 04/01/20 12:10 04/01/20 16:17 Intake & Output 03/31/20 04/01/20 04/02/20 06:59 06:59 06:59 Intake Total 2739 1460 50 Output Total 1125 2325 Balance 1614 -865 50 Weight 67 kg 66.1 kg 66.1 kg General appearance: PRESENT: no acute distress, cooperative Neck exam: PRESENT: tracheostomy. ABSENT: JVD Respiratory exam: PRESENT: crackles, symmetrical, unlabored. ABSENT: tachypnea, wheezes Cardiovascular exam: PRESENT: RRR, +S1, +S2. ABSENT: tachycardia GI/Abdominal exam: PRESENT: soft. ABSENT: rebound, rigid, tenderness Neurological exam: PRESENT: alert, awake Psychiatric exam: PRESENT: agitated. ABSENT: anxious Focused psych exam: ABSENT: pressured speech Skin exam: ABSENT: jaundice Results Laboratory Results: 03/31/20 10:35 03/30/20 09:52 03/29/20 22:20 Varner Catheter Urine Culture - Final C.albicans/C.dubliniensis 01/24/20 01/24/20 01/24/20 00:03 00:03 04:20 Creatine Kinase 80 CK-MB (CK-2) 0.63 Troponin I 0.132 0.133 NT-Pro-B Natriuret Pep 78195 H 01/24/20 01/24/20 01/24/20 10:43 17:19 23:06 Creatine Kinase CK-MB (CK-2) Troponin I 0.114 0.079 0.075 NT-Pro-B Natriuret Pep 74551 H 01/30/20 01/31/20 02/01/20 03:45 05:39 06:14 Creatine Kinase CK-MB (CK-2) Troponin I NT-Pro-B Natriuret Pep 60122 H 47237 H 70486 H 02/02/20 02/27/20 02/27/20 04:24 08:12 08:12 Creatine Kinase 33 L CK-MB (CK-2) 2.16 Troponin I 0.013 NT-Pro-B Natriuret Pep 75912 H 02/27/20 02/28/20 02/29/20 08:12 05:44 05:35 Creatine Kinase CK-MB (CK-2) Troponin I NT-Pro-B Natriuret Pep 10493 H 68910 H 86368 H 03/02/20 03/03/20 03/11/20 05:44 05:00 04:33 Creatine Kinase CK-MB (CK-2) Troponin I NT-Pro-B Natriuret Pep 59907 H 26974 H 45147 H 03/13/20 03/15/20 03/25/20 08:40 08:44 08:40 Creatine Kinase CK-MB (CK-2) Troponin I 0.020 NT-Pro-B Natriuret Pep 02028 H 79452 H Impressions: Modified Barium Swallow 03/27/20 00:00 IMPRESSION: ASPIRATION WITH ALL CONSISTENCIES, HOWEVER SOMEWHAT IMPROVED. PLEASE SEE SPEECH PATHOLOGIST REPORT FOR OTHER FINDINGS AND RECOMMENDATIONS. Chest X-Ray 03/30/20 00:00 IMPRESSION: Worsening sepsis or edema. KUB X-Ray 03/31/20 00:00 IMPRESSION: Status post placement of enteric tube with distal tip in the expected location of the stomach. Assessment and Plan - Diagnosis (1) Acute respiratory failure due to severe acute respiratory syndrome coronavirus 2 (SARS-CoV-2) infection Is this a current diagnosis for this admission?: Yes Plan: Significant hypoxic/hypercarbic respiratory failure secondary to COVID-19 pneumonia. Repeat COVID-19 test on 03/04/2020 showed was negative. Infection is likely resolved. Required prolonged intubation and mechanical ventilation and eventually had to get Tracheostomy done on 03/14/2020 by ENT. Currently conducting vent weaning trials to trach collar. He has actually been on trach collar for the past 2 days now at 40% FiO2 and 9L this morning. Has done well on this. However, this afternoon we had to place patient back on mechanical ventilator intermittently as he was seeming to fatigue and get more tachypneic. Appeared comfortable subsequently. I feel that, at this point, patient is able to tolerate long hours on trach collar but may occasionally need to be vented on some nights if notably fatigued. I will leave him on mechanical ventilator for some hours or possibly the rest of today and put him back on trach collar again tomorrow morning. 03/27/2020 Took patient off the vent this morning as he was doing well. Put him back on trach collar FiO2 40% on 6 L. We will try to keep him on trach collar th roughout the day and throughout the night as well and see how he tolerates it. Hopefully his respiratory muscles should continue to get stronger and allow him to tolerate longer periods without needing mechanical ventilation. 03/28/2020 Patient was on trach collar throughout the daytime yesterday. It seems that he was placed on mechanical ventilation at some point overnight but no documentation as to why this was done or if he truly needed it. Instructed staff to keep patient completely off mechanical ventilation and remain on trach collar throughout the day and nighttime except if patient gets work of breathing or notably fatigued in which case we will reassess. Check venous blood gas in the morning We will get a Passy-Mylo valve for patient to enable his speech. We will see if patient tolerates this. Communicated with nursing that the valve is to be removed whenever patient is asleep. 03/29/2020 For some reason patient was placed on mechanical ventilation overnight against my instructions. Notably had some respiratory distress this morning during time of encounter. At that time, he was on trach collar and had been taken off the vent earlier this morning. Got hypoxic into the 60s. Also working to breathe. blood gas was drawn at the time. However his symptoms improved and completely resolved with suctioning. Likely had a mucous plugging. VBG done showed some hypercapnia however this was gotten during the time of his distress. Will repeat blood gas. We will keep off vent completely. Trach care and suctioning as needed. We will hold off on Passy-Mylo valve for now as patient still having some thick secretions and may not be able to tolerate. 03/30/2020 Remains off the vent at nighttime. Continue with trach collar during the day. Patient is once again hypercarbic this morning but with metabolic compensation. Patient will likely benefit from BiPAP nightly. I have discussed with respiratory therapist and we have capabilities of attaching the BiPAP to his trach tube. Repeat a VBG tomorrow morning. 03/31/2020 Patient noted to be more hypercapnic this morning though compensated. This is despite sleeping with BiPAP last night. He is receiving treatment for pneumonia. We made adjustments to his BiPAP settings and repeat venous blood gas shows significant improvement of his hypercapnia. Currently on BiPAP 16/ at FiO2 of 70% but satting 100% so we will decrease FiO2 down to 40%. We will leave on BiPAP through today. 04/01/2020 Continue trach collar 6 L at 50% FiO2 during the daytime and BiPAP at nighttime. (2) Pneumonia Qualifiers: Pneumonia type: due to unspecified organism Laterality: bilateral Is this a current diagnosis for this admission?: Yes Plan: Received several days of IV antibiotics earlier in hospital course. Patient notably had aspiration episodes. Chest x-ray 03/31 shows significant worsening of what is likely aspiration pneumonia. Also having increased thick secretions requiring suctioning every 2 hours. Will treat with a few days of IV meropenem [day 3] for hospital associated aspiration pneumonia. Tube feeds have been held. Discussed with nursing who notes that there is no cuff leak around the trach and the trach is well fitted. (3) Dysphagia Qualifiers: Dysphagia type: oropharyngeal phase Qualified Code(s): R13.12 - Dysphagia, oropharyngeal phase Is this a current diagnosis for this admission?: Yes Plan: Secondary to prolonged intubation. Failed MB BS on 03/19/2020 and again on 03/27/2020 Strict n.p.o. I have discussed PEG tube elaborately with patient that he still refuses at this adamantly. I have explained to him that Dobbhoff/NG tube is not an adequate source of long-term nutrition. Currently tube feeds on hold for today as tubefeed-like substance was suctioned from his trach. Getting D5 normal saline in the meantime. Continue speech/swallow rehabilitation (4) Critical illness polyneuropathy Is this a current diagnosis for this admission?: Yes Plan: Has had a very prolonged stay in the hospital and had a prolonged ICU stay. He will need very intensive physical and occupational therapy if we hope to get him anywhere close to his prior baseline physical functioning. Planning for placement at LTAC facility as he will need at least 30 days stay for aggressive PT, OT, speech therapy and continuation of vent weaning/trach collar trials. Performed a peer to peer review 03/26/[address] Banks ([facility]) who declined approval at this point because he states that patient cannot go to LTAC with NG tube as this is not considered an adequate means of long-term nutrition. Gave a phone number for p.o. [phone]. therapeutic activities services worker working on appealing with [facility] regarding the denial for LTAC placement. Currently patient is adamantly refused surgery for enteral feeding. (5) Tracheostomy in place Is this a current diagnosis for this admission?: Yes Plan: Secondary to respiratory failure from COVID-19 pneumonia. Routine trach care. Scopolamine patch for secretions. (6) Cardiomyopathy Qualifiers: Cardiomyopathy type: dilated Qualified Code(s): I42.0 - Dilated cardiomyopathy Is this a current diagnosis for this admission?: Yes Plan: TTE 01/2020 revealed EF of 40 to 45% with notable dilated cardiomyopathy and areas of hypokinesis. However no valvular lesions. Repeat TTE on 03/27/2020 as recommended by cardiology for EF reassessment shows EF of 35 to 40% with moderate to severe LV hypokinesis in the anterior and anterior septal schwarz. Currently not in acute heart failure. low-dose lisinopril, Toprol-XL and p.o. Lasix. Evaluated by solderer. Given patient's significant comorbidities, ischemic work-up will be deferred for now. (7) UTI (urinary tract infection) due to Enterococcus Is this a current diagnosis for this admission?: Yes Plan: Has received treatment for this earlier in hospitalization. (8) Septic shock Is this a current diagnosis for this admission?: Yes Plan: Long resolved. Currently hemodynamically stable. - Time Time Spent with patient: 15-24 minutes Anticipated Discharge Disposition: [facility] Care Facility Anticipated Discharge Timeframe: undetermined
[2020-04-02] MEDS: DIPHENHYDRAMINE HCL 50 MG/ML VIAL IV PRN ×3 (02:36→20:59)
[2020-04-02] MEDS: MORPHINE SULFATE 10 MG/ML INJ IV PRN ×4 (02:37→22:17)
[2020-04-02] MEDS: MEROPENEM 1 GM in NORMAL SALINE 50 ML IV SCH ×3 (02:38→20:59)
[2020-04-02 05:41] LABS: ABSOLUTE BASOPHILS # (AUTO) 0.1 10^3/uL (0.0-0.2); ABSOLUTE EOSINOPHILS # (AUTO) 0.8 10^3/uL (0.0-0.6); ABSOLUTE LYMPHOCYTES (AUTO) 1.2 10^3/uL (0.5-4.7); ABSOLUTE MONOCYTES (AUTO) 0.9 10^3/uL (0.1-1.4); BASOPHILS % (AUTO) 1.2 % (0-2); EOSINOPHILS % (AUTO) 6.8 % (0-6); HEMATOCRIT 24.3 % (37.9-51.0); LYMPHOCYTES % (AUTO) 10.7 % (13-45); MEAN CORPUSCULAR HEMOGLOBIN 27.9 pg (27.0-33.4); MEAN CORPUSCULAR HGB CONC 32.2 g/dL (32.0-36.0); MEAN CORPUSCULAR VOLUME 87 fl (80-97); MONOCYTES % (AUTO) 8.4 % (3-13); PLATELET COUNT 402 10^3/uL (150-450); RED BLOOD COUNT 2.81 10^6/uL (4.35-5.55); RED CELL DISTRIBUTION WIDTH 18.1 % (11.5-14.0); SEGMENTED NEUTROPHILS % (AUTO) 72.9 % (42-78); TOTAL CELLS COUNTED % (AUTO) 100 %; WHITE BLOOD COUNT 11.1 10^3/uL (4.0-10.5)
[2020-04-02 05:46] LABS: HEMOGLOBIN 7.8 g/dL (13.5-17.0)
[2020-04-02 05:55] LABS: ALBUMIN 2.4 g/dL (3.5-5.0); ALKALINE PHOSPHATASE 143 U/L (38-126); ASPARTATE AMINO TRANSFERASE 13 U/L (17-59); BILIRUBIN,DIRECT 0.3 mg/dL (0.0-0.4); BILIRUBIN,TOTAL 0.6 mg/dL (0.2-1.3); BLOOD UREA NITROGEN 31 mg/dL (7-20); CALCIUM 8.4 mg/dL (8.4-10.2); GLUCOSE 91 mg/dL (75-110); POTASSIUM 4.7 mmol/L (3.6-5.0); TOTAL PROTEIN 5.4 g/dL (6.3-8.2)
[2020-04-02] MEDS: INSULIN LISPRO 100 UNIT/ML 3 ML VIAL SUBCUT SCH ×4 (06:00→22:24)
[2020-04-02 06:01] LABS: ANION GAP 5 (5-19); CARBON DIOXIDE 37 mmol/L (22-30); CHLORIDE 99 mmol/L (98-107)
[2020-04-02] MEDS: LACTULOSE SYRUP 20 GM/30 ML UDCUP PO SCH ×2 (10:35→22:23)
[2020-04-02] MEDS: INSULIN GLARGINE,HUM.REC.ANLOG 1,000 UNIT/10 ML VIAL SUBCUT SCH (10:35)
[2020-04-02] MEDS: ENOXAPARIN SODIUM INJ 40 MG/0.4 ML DISP.SYRIN SUBCUT SCH (10:36)
[2020-04-02] MEDS: FUROSEMIDE 20 MG TABLET PO SCH (10:36)
[2020-04-02] MEDS: METOPROLOL SUCCINATE 25 MG TAB.SR.24H PO SCH (10:37)
[2020-04-02] MEDS: THIAMINE HCL 100 MG TABLET PO SCH (10:37)
[2020-04-02] MEDS: PANTOPRAZOLE SODIUM 40 MG PACKET.DR NG SCH (10:37)
[2020-04-02] MEDS: SENNOSIDES/DOCUSATE 8.6-50 MG 1 EACH TABLET PO SCH (10:37)
[2020-04-02] MEDS: LISINOPRIL 5 MG TABLET PO SCH ×2 (10:37→22:23)
--- NOTE | 2020-04-02 13:58 | PDOC PROGRESS REPORT ---
Subjective Progress Note for:: 04/02/20 Subjective:: Care assumed today. Briefly this is a case of 60/m, poorly controlled type 2 DM, HTN, CHF, narcotic dependence from chronic arthritis, CKD, admitted to [facility] on 01/05/2020 for ZURDO and hyperkalemia and was discharged on 01/11/2020. Patient then returned to the ED on 01/15/2020 and was admitted for nausea vomiting associated with fatigue and dizziness. Troponins were elevated at that time with a proBNP of 29,000. During his hospital stay he was treated for pneumonia and hypoxemia which resolved. He also had a non-ST elevated NH which was thought to be related to demand ischemia in the setting of pneumonia and sepsis with poor clearance of troponins related to his CKD. Baseline creatinine is 3.2. Patient was discharged again on 01/19/2020 and returned to the emergency department on 01/23/2020 complaining of orthostatic hypotension, persistent dizziness, fever and shortness of breath. proBNP was again elevated to 17,700, Creatinine seems to be only mildly elevated from baseline. While in the ED, patient became hypotensive to 90/60 with increased O2 requirements and at one point had become unresponsive. He was placed on BiPAP which improved his respiratory status and he is now more awake and alert. He was given 2 L of LR and started on cefepime and Levaquin. He was admitted in the ICU 01/24/20 for acute hypoxemic respiratory failure. He was transferred out of the ICU 03/17/20 after a prolonged stay in the ICU. He failed extubation multiple times and eventually ended up with a tracheostomy tube. He is currently D70 of in patient admission. He was seen and examined at bedside, awake, alert, denies SOB, chest pain. He pulled out his NG tube yesterday, also being treated for Aspiration pneumonia on Meropenem day 3. I talked to him about nutrition and told him that he would need either a NG tube or pEG tube for enteral feeding both of which he refused by shaking his head side to side. He refused to write anything on the white board. I was told by the nurses as well that he is very uncooperative and would write swear words on his white board. Reason For Visit: HYPOXEMIC RESPIRATORY FAILURE, HEMODYNAMIC Physical Exam Vital Signs: Temp Pulse Resp BP Pulse Ox 98.1 F 95 16 133/76 H 99 04/02/20 09:02 04/02/20 07:00 04/02/20 09:00 04/02/20 04:53 04/02/20 09:00 Intake & Output 04/01/20 04/02/20 04/03/20 06:59 06:59 06:59 Intake Total 1460 250 32401 Output Total 2325 1650 Balance -865 -1400 52622 Weight 66.1 kg 65 kg General appearance: PRESENT: no acute distress, other - uncooperative Head exam: PRESENT: atraumatic, normocephalic Eye exam: PRESENT: EOMI, PERRLA Mouth exam: PRESENT: moist Neck exam: PRESENT: full ROM, tracheostomy - with tracheostomy collar Respiratory exam: PRESENT: rales, symmetrical. ABSENT: unlabored, wheezes Cardiovascular exam: PRESENT: RRR, +S1, +S2 Pulses: PRESENT: +2 pedal pulses bilateral GI/Abdominal exam: PRESENT: normal bowel sounds, soft. ABSENT: rebound, tenderness Extremities exam: ABSENT: +1 edema Musculoskeletal exam: PRESENT: other - weak muscles upper and lower extremities Neurological exam: PRESENT: alert, awake, oriented to person, oriented to place Psychiatric exam: PRESENT: other - uncooperative, annoyed looking Skin exam: PRESENT: normal color Results Laboratory Results: 04/02/20 04:36 04/02/20 04:36 04/02/20 04/02/20 04:36 04:36 WBC 11.1 H RBC 2.81 L Hgb 7.8 L Hct 24.3 L MCV 87 MCH 27.9 MCHC 32.2 RDW 18.1 H Plt Count 402 Seg Neutrophils % 72.9 Sodium 140.6 Potassium 4.7 Chloride 99 Carbon Dioxide 37 H Anion Gap 5 BUN 31 H Creatinine 0.66 Est GFR ( Amer) > 60 Glucose 91 Calcium 8.4 Total Bilirubin 0.6 AST 13 L Alkaline Phosphatase 143 H Total Protein 5.4 L Albumin 2.4 L 01/24/20 01/24/20 01/24/20 00:03 00:03 04:20 Creatine Kinase 80 CK-MB (CK-2) 0.63 Troponin I 0.132 0.133 NT-Pro-B Natriuret Pep 56370 H 01/24/20 01/24/20 01/24/20 10:43 17:19 23:06 Creatine Kinase CK-MB (CK-2) Troponin I 0.114 0.079 0.075 NT-Pro-B Natriuret Pep 55190 H 01/30/20 01/31/20 02/01/20 03:45 05:39 06:14 Creatine Kinase CK-MB (CK-2) Troponin I NT-Pro-B Natriuret Pep 35692 H 65874 H 66114 H 02/02/20 02/27/20 02/27/20 04:24 08:12 08:12 Creatine Kinase 33 L CK-MB (CK-2) 2.16 Troponin I 0.013 NT-Pro-B Natriuret Pep 53917 H 02/27/20 02/28/20 02/29/20 08:12 05:44 05:35 Creatine Kinase CK-MB (CK-2) Troponin I NT-Pro-B Natriuret Pep 50322 H 95809 H 62650 H 03/02/20 03/03/20 03/11/20 05:44 05:00 04:33 Creatine Kinase CK-MB (CK-2) Troponin I NT-Pro-B Natriuret Pep 33045 H 89165 H 35580 H 03/13/20 03/15/20 03/25/20 08:40 08:44 08:40 Creatine Kinase CK-MB (CK-2) Troponin I 0.020 NT-Pro-B Natriuret Pep 35810 H 87227 H Impressions: Modified Barium Swallow 03/27/20 00:00 IMPRESSION: ASPIRATION WITH ALL CONSISTENCIES, HOWEVER SOMEWHAT IMPROVED. PLEASE SEE SPEECH PATHOLOGIST REPORT FOR OTHER FINDINGS AND RECOMMENDATIONS. Chest X-Ray 03/30/20 00:00 IMPRESSION: Worsening sepsis or edema. KUB X-Ray 03/31/20 00:00 IMPRESSION: Status post placement of enteric tube with distal tip in the expected location of the stomach. Assessment and Plan - Diagnosis (1) Acute respiratory failure due to severe acute respiratory syndrome coronavirus 2 (SARS-CoV-2) infection Is this a current diagnosis for this admission?: Yes Plan: - Significant hypoxic/hypercarbic respiratory failure secondary to COVID-19 pneumonia. - Repeat COVID-19 test on 03/04/2020 showed was negative. Infection is likely resolved. - Required prolonged intubation and mechanical ventilation and eventually had to get Tracheostomy done on 03/14/2020 by ENT. - currently on tracheostomy collar 6L at 50% FIO2 during daytime and bipap at night - currently 95% on trache collar - would continue with O2 support with trach collar and bipap PRN (2) Pneumonia Qualifiers: Pneumonia type: due to unspecified organism Laterality: bilateral Lung location: unspecified part of lung Qualified Code(s): J18.9 - Pneumonia, unspecified organism Is this a current diagnosis for this admission?: Yes Plan: - he has received several days of IV abx earlier in hospital course - CXR 03/31 shows significant worsening of what is likely aspiration pneumonia. - On D3 merem - awaiting sputum culture result and de escalate as appropriate (3) Dysphagia Qualifiers: Dysphagia type: oropharyngeal phase Qualified Code(s): R13.12 - Dysphagia, oropharyngeal phase Is this a current diagnosis for this admission?: Yes Plan: - has failed swallow eval 03/19/2020 and again on 03/27/2020 - need for PEG tube discussed with the patient several times but he has repeatedly refused - I spoke to him today as well regarding NG tube and feeding and he also refused this despite extensive explanation. - currently just on D5NS - if he continues to refuse PEG and NG tube feeding. he would need TPN which would be a temporary measure in terms of nutrition equipment operator intermodal yard. - continue speech and swallow rehab. - plan to continue D5 for now and talk to him again tomorrow - hypoglycemia protocol- bernardoecks (4) Critical illness polyneuropathy Is this a current diagnosis for this admission?: Yes Plan: - 2/2 prolonged ICU stay, intubation and hospital stay. - He will need very intensive physical and occupational therapy if we hope to get him anywhere close to his prior baseline physical functioning. Planning for placement at LTAC facility as he will need at least 30 days stay for aggressive PT, OT, speech therapy and continuation of vent weaning/trach collar trials. -Performed a peer to peer review 03/26/[address] Banks ([facility]) who declined approval at this point because he states that patient cannot go to LTAC with NG tube as this is not considered an adequate means of long-term nutrition. Gave a phone number for p.o. [phone]. - cone worker working on appealing with [facility] regarding the denial for LTAC placement. Currently patient is adamantly refused surgery for enteral feeding. (5) Tracheostomy in place Is this a current diagnosis for this admission?: Yes Plan: Secondary to respiratory failure from COVID-19 pneumonia. Routine trach care. Scopolamine patch for secretions. (6) Cardiomyopathy Qualifiers: Cardiomyopathy type: dilated Qualified Code(s): I42.0 - Dilated cardiomyopathy Is this a current diagnosis for this admission?: Yes Plan: - TTE 01/2020 revealed EF of 40 to 45% with notable dilated cardiomyopathy and areas of hypokinesis. However no valvular lesions. Repeat TTE on 03/27/2020 as recommended by cardiology for EF reassessment shows EF of 35 to 40% with moderate to severe LV hypokinesis in the anterior and anterior septal schwarz. - Currently not in acute heart failure. - continue low-dose lisinopril, Toprol-XL and p.o. Lasix. - Evaluated by optomechanical engineer. Given patient's significant comorbidities, ischemic work-up will be deferred for now. (7) UTI (urinary tract infection) due to Enterococcus Is this a current diagnosis for this admission?: Yes Plan: - Has received treatment for this earlier in hospitalization. (8) Septic shock Is this a current diagnosis for this admission?: Yes Plan: Long resolved. Currently hemodynamically stable. - Time Time Spent with patient: 15-24 minutes Medications reviewed and adjusted accordingly: Yes Anticipated Discharge Disposition: Nurse'S Assistant Care Facility Anticipated Discharge Timeframe: to be determined
--- NOTE | 2020-04-02 14:26 | PDOC PROGRESS REPORT ---
Subjective Progress Note for:: 04/02/20 Subjective:: Patient is able to communicate by writing. He requests change in his position in bed. Other than that he reports no chest pain or dyspnea. Nursing staff report that the patient is generally in a poor mood. He pulled out his feeding tube. He has refused G-tube placement. He is on trach collar. Reason For Visit: HYPOXEMIC RESPIRATORY FAILURE, HEMODYNAMIC Physical Exam Vital Signs: Temp Pulse Resp BP Pulse Ox 98.1 F 95 16 133/76 H 99 04/02/20 09:02 04/02/20 07:00 04/02/20 09:00 04/02/20 04:53 04/02/20 09:00 Intake & Output 04/01/20 04/02/20 04/03/20 06:59 06:59 06:59 Intake Total 1460 250 57066 Output Total 2325 1650 Balance -865 -1400 13266 Weight 66.1 kg 65 kg General appearance: PRESENT: cooperative, thin, well-developed, well-nourished Head exam: PRESENT: atraumatic, normocephalic Eye exam: PRESENT: EOMI Ear exam: PRESENT: normal external ear exam Mouth exam: PRESENT: moist Throat exam: PRESENT: other - Tracheostomy noted Respiratory exam: PRESENT: decreased breath sounds, symmetrical, unlabored Cardiovascular exam: PRESENT: RRR, +S1, +S2 Pulses: PRESENT: normal radial pulses GI/Abdominal exam: PRESENT: soft Rectal exam: PRESENT: deferred Neurological exam: PRESENT: alert, awake, oriented to person, oriented to place Psychiatric exam: PRESENT: appropriate affect, other - Patient's mood is usually irritable. With me he was fair Skin exam: PRESENT: dry, intact Results Laboratory Results: 04/02/20 04:36 04/02/20 04:36 04/02/20 04/02/20 04:36 04:36 WBC 11.1 H RBC 2.81 L Hgb 7.8 L Hct 24.3 L MCV 87 MCH 27.9 MCHC 32.2 RDW 18.1 H Plt Count 402 Seg Neutrophils % 72.9 Sodium 140.6 Potassium 4.7 Chloride 99 Carbon Dioxide 37 H Anion Gap 5 BUN 31 H Creatinine 0.66 Est GFR ( Amer) > 60 Glucose 91 Calcium 8.4 Total Bilirubin 0.6 AST 13 L Alkaline Phosphatase 143 H Total Protein 5.4 L Albumin 2.4 L 01/24/20 01/24/20 01/24/20 00:03 00:03 04:20 Creatine Kinase 80 CK-MB (CK-2) 0.63 Troponin I 0.132 0.133 NT-Pro-B Natriuret Pep 09018 H 01/24/20 01/24/20 01/24/20 10:43 17:19 23:06 Creatine Kinase CK-MB (CK-2) Troponin I 0.114 0.079 0.075 NT-Pro-B Natriuret Pep 82939 H 01/30/20 01/31/20 02/01/20 03:45 05:39 06:14 Creatine Kinase CK-MB (CK-2) Troponin I NT-Pro-B Natriuret Pep 90222 H 82547 H 53120 H 02/02/20 02/27/20 02/27/20 04:24 08:12 08:12 Creatine Kinase 33 L CK-MB (CK-2) 2.16 Troponin I 0.013 NT-Pro-B Natriuret Pep 14677 H 02/27/20 02/28/20 02/29/20 08:12 05:44 05:35 Creatine Kinase CK-MB (CK-2) Troponin I NT-Pro-B Natriuret Pep 32183 H 53765 H 00393 H 03/02/20 03/03/20 03/11/20 05:44 05:00 04:33 Creatine Kinase CK-MB (CK-2) Troponin I NT-Pro-B Natriuret Pep 38958 H 92637 H 96941 H 03/13/20 03/15/20 03/25/20 08:40 08:44 08:40 Creatine Kinase CK-MB (CK-2) Troponin I 0.020 NT-Pro-B Natriuret Pep 98034 H 51652 H Impressions: Modified Barium Swallow 03/27/20 00:00 IMPRESSION: ASPIRATION WITH ALL CONSISTENCIES, HOWEVER SOMEWHAT IMPROVED. PLEASE SEE SPEECH PATHOLOGIST REPORT FOR OTHER FINDINGS AND RECOMMENDATIONS. Chest X-Ray 03/30/20 00:00 IMPRESSION: Worsening sepsis or edema. KUB X-Ray 03/31/20 00:00 IMPRESSION: Status post placement of enteric tube with distal tip in the expected location of the stomach. Assessment & Plan - Diagnosis (1) Dilated cardiomyopathy Is this a current diagnosis for this admission?: Yes Plan: Dilated cardiomyopathy. Likely multifactorial given prolonged hospital stay and bouts of sepsis Would recommend continue guideline directed medical therapy for LV dysfunction and congestive heart failure He appears to be euvolemic. He will likely merit from an ischemic evaluation once his overall health improves. Presently I would not pursue this. (2) Non-ST elevated myocardial infarction (non-STEMI) Is this a current diagnosis for this admission?: Yes Plan: No ischemic symptoms at the moment (3) Pneumonia due to COVID-19 virus Is this a current diagnosis for this admission?: Yes Plan: Long protracted hospital course. Making slow recovery. Multiple problems have arisen Supportive care
[2020-04-03] MEDS: INSULIN LISPRO 100 UNIT/ML 3 ML VIAL SUBCUT SCH ×4 (00:30→18:02)
[2020-04-03] MEDS: MEROPENEM 1 GM in NORMAL SALINE 50 ML IV SCH ×3 (02:00→18:03)
[2020-04-03] MEDS: MORPHINE SULFATE 10 MG/ML INJ IV PRN ×3 (03:56→17:42)
[2020-04-03] MEDS: DIPHENHYDRAMINE HCL 50 MG/ML VIAL IV PRN ×3 (03:56→17:42)
--- NOTE | 2020-04-03 09:54 | PDOC PROGRESS REPORT ---
Subjective Progress Note for:: 04/03/20 Subjective:: The patient has been asking the nurse for ice chips. He has been refusing a PEG tube. He did fail the second modified barium swallow although they did say it was improved. The [place] suction tubing has creamy colored mucus. He appears comfortable at this time. Reason For Visit: HYPOXEMIC RESPIRATORY FAILURE, HEMODYNAMIC Physical Exam Vital Signs: Temp Pulse Resp BP Pulse Ox 97.9 F 90 18 146/80 H 100 04/03/20 07:30 04/03/20 07:30 04/03/20 07:30 04/03/20 07:30 04/03/20 09:11 Intake & Output 04/02/20 04/03/20 04/04/20 06:59 06:59 06:59 Intake Total 250 31468 Output Total 1650 1220 Balance -1400 9010 Weight 65 kg 64.3 kg General appearance: PRESENT: no acute distress, thin Head exam: PRESENT: atraumatic, normocephalic Eye exam: PRESENT: conjunctiva pale. ABSENT: scleral icterus Ear exam: PRESENT: normal external ear exam. ABSENT: bleeding, drainage Mouth exam: PRESENT: dry mucosa, tongue midline Teeth exam: PRESENT: poor dentation Neck exam: PRESENT: tracheostomy - creamy sputum in suction tubing Respiratory exam: PRESENT: rhonchi - right, symmetrical, unlabored. ABSENT: rales, tachypnea, wheezes Cardiovascular exam: PRESENT: RRR, +S1, +S2. ABSENT: bradycardia, diastolic murmur, irregular rhythm, systolic murmur, tachycardia GI/Abdominal exam: PRESENT: hypoactive bowel sounds, soft. ABSENT: distended, tenderness Rectal exam: PRESENT: deferred Extremities exam: ABSENT: pedal edema Musculoskeletal exam: ABSENT: deformity, dislocation Neurological exam: PRESENT: alert, awake, oriented to person, oriented to place, oriented to situation, other - trach. ABSENT: altered Psychiatric exam: ABSENT: agitated, anxious Focused psych exam: ABSENT: delusional, paranoid, restlessness Skin exam: PRESENT: dry, pallor, warm Results Laboratory Results: 04/02/20 04:36 04/02/20 04:36 03/31/20 23:30 Tracheal Aspirate Gram Stain - Final 03/31/20 23:30 Tracheal Aspirate Sputum Culture - Final Staphylococcus Aureus Normal Kathie Absent 01/24/20 01/24/2001/23/20 00:03 00:03 04:20 Creatine Kinase 80 CK-MB (CK-2) 0.63 Troponin I 0.132 0.133 NT-Pro-B Natriuret Pep 71362 H 01/24/20 01/24/20 01/24/20 10:43 17:19 23:06 Creatine Kinase CK-MB (CK-2) Troponin I 0.114 0.079 0.075 NT-Pro-B Natriuret Pep 44234 H 01/30/20 01/31/20 02/01/20 03:45 05:39 06:14 Creatine Kinase CK-MB (CK-2) Troponin I NT-Pro-B Natriuret Pep 10083 H 81523 H 74869 H 02/02/20 02/27/20 02/27/20 04:24 08:12 08:12 Creatine Kinase 33 L CK-MB (CK-2) 2.16 Troponin I 0.013 NT-Pro-B Natriuret Pep 09407 H 02/27/20 02/28/20 02/29/20 08:12 05:44 05:35 Creatine Kinase CK-MB (CK-2) Troponin I NT-Pro-B Natriuret Pep 53143 H 69161 H 61340 H 03/02/20 03/03/20 03/11/20 05:44 05:00 04:33 Creatine Kinase CK-MB (CK-2) Troponin I NT-Pro-B Natriuret Pep 06601 H 52001 H 75927 H 03/13/20 03/15/20 03/25/20 08:40 08:44 08:40 Creatine Kinase CK-MB (CK-2) Troponin I 0.020 NT-Pro-B Natriuret Pep 84304 H 64178 H Impressions: Modified Barium Swallow 03/27/20 00:00 IMPRESSION: ASPIRATION WITH ALL CONSISTENCIES, HOWEVER SOMEWHAT IMPROVED. PLEASE SEE SPEECH PATHOLOGIST REPORT FOR OTHER FINDINGS AND RECOMMENDATIONS. Chest X-Ray 03/30/20 00:00 IMPRESSION: Worsening sepsis or edema. KUB X-Ray 03/31/20 00:00 IMPRESSION: Status post placement of enteric tube with distal tip in the expected location of the stomach. Assessment and Plan - Diagnosis (1) Acute respiratory failure due to severe acute respiratory syndrome coronavirus 2 (SARS-CoV-2) infection Is this a current diagnosis for this admission?: Yes (2) Acute respiratory failure with hypoxia and hypercapnia Is this a current diagnosis for this admission?: Yes (3) Acute kidney injury superimposed on chronic kidney disease Is this a current diagnosis for this admission?: Yes (4) Acute metabolic encephalopathy Is this a current diagnosis for this admission?: Yes (5) Acute worsening of stage 4 chronic kidney disease Is this a current diagnosis for this admission?: Yes (6) Severe sepsis without septic shock Is this a current diagnosis for this admission?: Yes (7) Leukocytosis Qualifiers: Leukocytosis type: unspecified Qualified Code(s): D72.829 - Elevated white blood cell count, unspecified Is this a current diagnosis for this admission?: Yes (8) GI bleed not requiring more than 4 units of blood in 24 hours, ICU, or surgery Is this a current diagnosis for this admission?: Yes - Plan Summary Summary: 04/03/2020 The patient has been asking for ice chips and now he wants Jell-O. I reminded him that he has failed 2 modified barium swallows at this point. The patient understands the risk but wishes to try Jello and Ice chips despite abnormal MBS. I wrote out very clearly the risks and he understood. He even wrote that if he develops problems or recurrent pneumonia he wants to stop treatment. I certainly will need to further delineate this but I think he understands the risks of trying ice chips. He still has creamy sputum in the suction tubing. His white blood cell count was coming down on the meropenem. His last serum chemistries were unremarkable. Unfortunately he continues to refuse a PEG tube. I did speak with speech therapy. They will be seeing him today. The second MBS was slightly better than the first. We may likely get a third MBS tomorrow or Wednesday to document any progress or lack thereof. He certainly has experienced significant weight loss but he refuses to allow us to provide proper nutrition. We will continue the D5 normal saline to provide some calories. - Time Time Spent with patient: 15-24 minutes Medications reviewed and adjusted accordingly: Yes Anticipated Discharge Disposition: Unknown Anticipated Discharge Timeframe: Unknown
[2020-04-03] MEDS: LACTULOSE SYRUP 20 GM/30 ML UDCUP PO SCH ×2 (13:30→22:50)
[2020-04-03] MEDS: FUROSEMIDE 20 MG TABLET PO SCH (13:39)
[2020-04-03] MEDS: ENOXAPARIN SODIUM INJ 40 MG/0.4 ML DISP.SYRIN SUBCUT SCH (13:39)
[2020-04-03] MEDS: METOPROLOL SUCCINATE 25 MG TAB.SR.24H PO SCH (13:40)
[2020-04-03] MEDS: PANTOPRAZOLE SODIUM 40 MG PACKET.DR NG SCH (13:40)
[2020-04-03] MEDS: LISINOPRIL 5 MG TABLET PO SCH ×2 (13:40→22:50)
[2020-04-03] MEDS: THIAMINE HCL 100 MG TABLET PO SCH (13:40)
[2020-04-03] MEDS: SENNOSIDES/DOCUSATE 8.6-50 MG 1 EACH TABLET PO SCH (13:40)
[2020-04-03] MEDS: SCOPOLAMINE HYDROBROMIDE 1.5 MG PATCH.TD72 TD SCH (13:54)
[2020-04-03] MEDS: INSULIN GLARGINE,HUM.REC.ANLOG 1,000 UNIT/10 ML VIAL SUBCUT SCH (16:34)
[2020-04-03] MEDS: DEXTROSE 5%-NORMAL SALINE 1,000 ML IV PRN (20:11)
[2020-04-03] MEDS: ONDANSETRON HCL INJ/PF 4 MG/2 ML SDV IV PRN (21:14)
[2020-04-04] MEDS: INSULIN LISPRO 100 UNIT/ML 3 ML VIAL SUBCUT SCH ×4 (00:12→18:33)
[2020-04-04] MEDS: DIPHENHYDRAMINE HCL 50 MG/ML VIAL IV PRN ×3 (01:18→22:49)
[2020-04-04] MEDS: MORPHINE SULFATE 10 MG/ML INJ IV PRN ×3 (01:18→22:49)
[2020-04-04] MEDS: MEROPENEM 1 GM in NORMAL SALINE 50 ML IV SCH ×3 (01:29→17:34)
[2020-04-04 08:39] LABS: MEAN CORPUSCULAR HEMOGLOBIN 28.2 pg (27.0-33.4); MEAN CORPUSCULAR HGB CONC 32.9 g/dL (32.0-36.0); MEAN CORPUSCULAR VOLUME 86 fl (80-97); PLATELET COUNT 397 10^3/uL (150-450); WHITE BLOOD COUNT 9.3 10^3/uL (4.0-10.5)
[2020-04-04 08:48] LABS: HEMOGLOBIN 7.9 g/dL (13.5-17.0)
[2020-04-04] MEDS: FUROSEMIDE 20 MG TABLET PO SCH (08:59)
[2020-04-04] MEDS: INSULIN GLARGINE,HUM.REC.ANLOG 1,000 UNIT/10 ML VIAL SUBCUT SCH (08:59)
[2020-04-04] MEDS: ENOXAPARIN SODIUM INJ 40 MG/0.4 ML DISP.SYRIN SUBCUT SCH (08:59)
[2020-04-04] MEDS: LACTULOSE SYRUP 20 GM/30 ML UDCUP PO SCH ×2 (08:59→21:48)
[2020-04-04] MEDS: LISINOPRIL 5 MG TABLET PO SCH ×2 (09:00→21:48)
[2020-04-04] MEDS: SENNOSIDES/DOCUSATE 8.6-50 MG 1 EACH TABLET PO SCH (09:00)
[2020-04-04] MEDS: PANTOPRAZOLE SODIUM 40 MG PACKET.DR NG SCH (09:00)
[2020-04-04] MEDS: THIAMINE HCL 100 MG TABLET PO SCH (09:00)
[2020-04-04] MEDS: METOPROLOL SUCCINATE 25 MG TAB.SR.24H PO SCH (09:00)
--- NOTE | 2020-04-04 09:31 | PDOC PROGRESS REPORT ---
Subjective Progress Note for:: 04/04/20 Subjective:: Patient is sitting eating ice chips. There is yellow creamy mucus around his trach. He is breathing comfortably on the vent. He did aspirate and vomit when he tried taking Jell-O. He is tolerating the ice chips. Reason For Visit: HYPOXEMIC RESPIRATORY FAILURE, HEMODYNAMIC Physical Exam Vital Signs: Temp Pulse Resp BP Pulse Ox 98.3 F 84 14 140/75 H 96 04/04/20 07:37 04/04/20 07:00 04/04/20 04:51 04/03/20 20:06 04/04/20 04:51 Intake & Output 04/03/20 04/04/20 04/05/20 06:59 06:59 06:59 Intake Total 17185 550 Output Total 1220 700 Balance 9010 -150 Weight 64.3 kg 67.1 kg General appearance: PRESENT: no acute distress, cooperative, thin, well- developed Head exam: PRESENT: atraumatic, normocephalic Eye exam: PRESENT: conjunctiva pale. ABSENT: scleral icterus Ear exam: PRESENT: normal external ear exam. ABSENT: bleeding, drainage Mouth exam: PRESENT: moist, tongue midline Neck exam: PRESENT: tracheostomy - Mucus discharge around the tracheostomy site. ABSENT: carotid bruit, lymphadenopathy Respiratory exam: PRESENT: clear to auscultation yousif - Anteriorly, symmetrical, unlabored. ABSENT: rales, rhonchi, tachypnea, wheezes Cardiovascular exam: PRESENT: RRR, +S1, +S2. ABSENT: bradycardia, diastolic murmur, irregular rhythm, systolic murmur, tachycardia GI/Abdominal exam: PRESENT: normal bowel sounds, soft. ABSENT: distended, guarding, tenderness Rectal exam: PRESENT: deferred Gentrourinary exam: PRESENT: indwelling catheter Extremities exam: PRESENT: pedal edema Neurological exam: PRESENT: alert, awake, oriented to person, oriented to place, oriented to time, oriented to situation, CN II-XII grossly intact, other - Communicates by writing on his white board. ABSENT: altered Psychiatric exam: PRESENT: flat affect. ABSENT: agitated, anxious Focused psych exam: ABSENT: delusional, paranoid, restlessness Skin exam: PRESENT: dry, pallor, warm. ABSENT: rash Results Laboratory Results: 04/04/20 08:00 04/02/20 04:36 04/04/20 08:00 WBC 9.3 RBC 2.80 L Hgb 7.9 L Hct 24.0 L MCV 86 MCH 28.2 MCHC 32.9 RDW 18.0 H Plt Count 397 03/31/20 23:30 Tracheal Aspirate Gram Stain - Final 03/31/20 23:30 Tracheal Aspirate Sputum Culture - Final Staphylococcus Aureus Normal Kathie Absent 01/24/20 01/24/20 01/24/20 00:03 00:03 04:20 Creatine Kinase 80 CK-MB (CK-2) 0.63 Troponin I 0.132 0.133 NT-Pro-B Natriuret Pep [id number] H 01/24/20 01/24/20 01/24/20 10:43 17:19 23:06 Creatine Kinase CK-MB (CK-2) Troponin I 0.114 0.079 0.075 NT-Pro-B Natriuret Pep 44187 H 01/30/20 01/31/20 02/01/20 03:45 05:39 06:14 Creatine Kinase CK-MB (CK-2) Troponin I NT-Pro-B Natriuret Pep 78184 H 40476 H 76435 H 02/02/20 02/27/20 02/27/20 04:24 08:12 08:12 Creatine Kinase 33 L CK-MB (CK-2) 2.16 Troponin I 0.013 NT-Pro-B Natriuret Pep 69519 H 02/27/20 02/28/20 02/29/20 08:12 05:44 05:35 Creatine Kinase CK-MB (CK-2) Troponin I NT-Pro-B Natriuret Pep 11409 H 68150 H 82278 H 03/02/20 03/03/20 03/11/20 05:44 05:00 04:33 Creatine Kinase CK-MB (CK-2) Troponin I NT-Pro-B Natriuret Pep 42063 H 52124 H 73047 H 03/13/20 03/15/20 03/25/20 08:40 08:44 08:40 Creatine Kinase CK-MB (CK-2) Troponin I 0.020 NT-Pro-B Natriuret Pep 64412 H 10775 H Impressions: Modified Barium Swallow 03/27/20 00:00 IMPRESSION: ASPIRATION WITH ALL CONSISTENCIES, HOWEVER SOMEWHAT IMPROVED. PLEASE SEE SPEECH PATHOLOGIST REPORT FOR OTHER FINDINGS AND RECOMMENDATIONS. Chest X-Ray 03/30/20 00:00 IMPRESSION: Worsening sepsis or edema. KUB X-Ray 03/31/20 00:00 IMPRESSION: Status post placement of enteric tube with distal tip in the expected location of the stomach. Assessment and Plan - Diagnosis (1) Acute respiratory failure due to severe acute respiratory syndrome coronavirus 2 (SARS-CoV-2) infection Is this a current diagnosis for this admission?: Yes (2) Acute respiratory failure with hypoxia and hypercapnia Is this a current diagnosis for this admission?: Yes (3) Acute kidney injury superimposed on chronic kidney disease Is this a current diagnosis for this admission?: Yes (4) Acute metabolic encephalopathy Is this a current diagnosis for this admission?: Yes (5) Acute worsening of stage 4 chronic kidney disease Is this a current diagnosis for this admission?: Yes (6) Severe sepsis without septic shock Is this a current diagnosis for this admission?: Yes (7) Leukocytosis Qualifiers: Leukocytosis type: unspecified Qualified Code(s): D72.829 - Elevated white blood cell count, unspecified Is this a current diagnosis for this admission?: Yes (8) GI bleed not requiring more than 4 units of blood in 24 hours, ICU, or surgery Is this a current diagnosis for this admission?: Yes - Plan Summary Summary: 04/03/2020 The patient has been asking for ice chips and now he wants Jell-O. I reminded him that he has failed 2 modified barium swallows at this point. The patient understands the risk but wishes to try Jello and Ice chips despite abnormal MBS. I wrote out very clearly the risks and he understood. He even wrote that if he develops problems or recurrent pneumonia he wants to stop treatment. I certainly will need to further delineate this but I think he understands the risks of trying ice chips. He still has creamy sputum in the suction tubing. His white blood cell count was coming down on the meropenem. His last serum chemistries were unremarkable. Unfortunately he continues to refuse a PEG tube. I did speak with speech therapy. They will be seeing him today. The second MBS was slightly better than the first. We may likely get a third MBS tomorrow or Jeovany to document any progress or lack thereof. He certainly has experienced significant weight loss but he refuses to allow us to provide proper nutrition. We will continue the D5 normal saline to provide some calories. 04/04/2020 He is tolerating ice chips but failed eating Jell-O. Consider another modified barium swallow to see if there is any progress. Despite explained to the patient that without nutrition is not going to get better he still declines a PEG tube. He has a perfectly functioning GI tract and we need to try and use this instead of just administering TPN. His anemia persists. His hemoglobin was 7.9 today. That is consistent with his last several blood tests. He has 1 more day of meropenem. We will then monitor him off of antibiotics. I will discuss with psychiatry. He seems to comprehend his decisions. He is seemingly making decisions that we will keep him in the hospital but this is just my opinion. We may need to have an ethics consult as he is making disposition extremely difficult and not helping himself with regards to recovery. - Time Time Spent with patient: 15-24 minutes Medications reviewed and adjusted accordingly: Yes Anticipated Discharge Disposition: Unknown Anticipated Discharge Timeframe: Unknown
--- NOTE | 2020-04-04 13:35 | Progress Note ---
Provider Note Provider Note: Patient with protracted hospital stay and complications after COVID-19 pneumonia. Presently failure to thrive, feeding tube issues and tracheostomy. He has persistent LV dysfunction which could be related to COVID-19. He should be continued on guideline directed medical therapy as much as feasible He makes good progress at some point we should pursue ischemic evaluation to exclude the presence of obstructive coronary artery disease. Emphasis on guideline directed medical therapy at this point given multiple ot her medical issues. We will see periodically
[2020-04-05] MEDS: MEROPENEM 1 GM in NORMAL SALINE 50 ML IV SCH ×3 (01:17→17:24)
[2020-04-05] MEDS: INSULIN LISPRO 100 UNIT/ML 3 ML VIAL SUBCUT SCH ×4 (01:23→17:21)
[2020-04-05] MEDS: LACTULOSE SYRUP 20 GM/30 ML UDCUP PO SCH ×2 (09:05→22:19)
[2020-04-05] MEDS: ENOXAPARIN SODIUM INJ 40 MG/0.4 ML DISP.SYRIN SUBCUT SCH (09:05)
[2020-04-05] MEDS: INSULIN GLARGINE,HUM.REC.ANLOG 1,000 UNIT/10 ML VIAL SUBCUT SCH (09:05)
[2020-04-05] MEDS: FUROSEMIDE 20 MG TABLET PO SCH (09:05)
[2020-04-05] MEDS: MORPHINE SULFATE 10 MG/ML INJ IV PRN ×3 (09:06→22:32)
[2020-04-05] MEDS: PANTOPRAZOLE SODIUM 40 MG PACKET.DR NG SCH (09:06)
[2020-04-05] MEDS: SENNOSIDES/DOCUSATE 8.6-50 MG 1 EACH TABLET PO SCH (09:06)
[2020-04-05] MEDS: LISINOPRIL 5 MG TABLET PO SCH ×2 (09:06→22:31)
[2020-04-05] MEDS: METOPROLOL SUCCINATE 25 MG TAB.SR.24H PO SCH (09:06)
[2020-04-05] MEDS: THIAMINE HCL 100 MG TABLET PO SCH (09:06)
[2020-04-05] MEDS: DIPHENHYDRAMINE HCL 50 MG/ML VIAL IV PRN ×3 (09:07→22:27)
--- NOTE | 2020-04-05 15:03 | PDOC PROGRESS REPORT ---
Subjective Progress Note for:: 04/05/20 Subjective:: The patient no longer needs isolation. He has been quite stable. I am discontinuing isolation and he will moved to a non-COVID room on [facility]. Reason For Visit: HYPOXEMIC RESPIRATORY FAILURE, HEMODYNAMIC Physical Exam Vital Signs: Temp Pulse Resp BP Pulse Ox 98.0 F 92 12 146/84 H 95 04/05/20 08:31 04/05/20 08:31 04/05/20 08:31 04/05/20 08:31 04/05/20 13:16 Intake & Output 04/04/20 04/05/20 04/06/20 06:59 06:59 06:59 Intake Total 550 1410 50 Output Total 700 1450 550 Balance -150 -40 -500 Weight 67.1 kg 66.4 kg General appearance: PRESENT: no acute distress, cooperative, well-developed Head exam: PRESENT: atraumatic, normocephalic Ear exam: PRESENT: normal external ear exam. ABSENT: bleeding, drainage Mouth exam: PRESENT: moist, tongue midline Neck exam: PRESENT: tracheostomy - Thick mucus around the tracheostomy site and in the inner cannula. ABSENT: carotid bruit, JVD, lymphadenopathy Respiratory exam: PRESENT: clear to auscultation yousif, symmetrical, unlabored. ABSENT: rales, rhonchi, tachypnea, wheezes Cardiovascular exam: PRESENT: RRR, +S1, +S2. ABSENT: bradycardia, diastolic murmur, irregular rhythm, systolic murmur, tachycardia GI/Abdominal exam: PRESENT: normal bowel sounds, soft. ABSENT: distended, tenderness Rectal exam: PRESENT: deferred Gentrourinary exam: PRESENT: indwelling catheter Extremities exam: ABSENT: pedal edema Musculoskeletal exam: PRESENT: normal inspection. ABSENT: deformity, d islocation Neurological exam: PRESENT: alert, awake, oriented to person, oriented to place, oriented to situation, other - Was able to speak with the cuff deflated and capping the trach with my finger. ABSENT: altered Psychiatric exam: PRESENT: appropriate affect. ABSENT: agitated, anxious Focused psych exam: ABSENT: delusional, paranoid, restlessness Skin exam: PRESENT: dry, pallor, warm. ABSENT: rash Results Laboratory Results: 04/04/20 08:00 04/02/20 04:36 01/24/20 01/24/20 01/24/20 00:03 00:03 04:20 Creatine Kinase 80 CK-MB (CK-2) 0.63 Troponin I 0.132 0.133 NT-Pro-B Natriuret Pep 39455 H 01/24/20 01/24/20 01/24/20 10:43 17:19 23:06 Creatine Kinase CK-MB (CK-2) Troponin I 0.114 0.079 0.075 NT-Pro-B Natriuret Pep 63776 H 01/30/20 01/31/20 02/01/20 03:45 05:39 06:14 Creatine Kinase CK-MB (CK-2) Troponin I NT-Pro-B Natriuret Pep 93538 H 37471 H 72852 H 02/02/20 02/27/20 02/27/20 04:24 08:12 08:12 Creatine Kinase 33 L CK-MB (CK-2) 2.16 Troponin I 0.013 NT-Pro-B Natriuret Pep 27652 H 02/27/20 02/28/20 02/29/20 08:12 05:44 05:35 Creatine Kinase CK-MB (CK-2) Troponin I NT-Pro-B Natriuret Pep 79084 H 58905 H 89062 H 03/02/20 03/03/20 03/11/20 05:44 05:00 04:33 Creatine Kinase CK-MB (CK-2) Troponin I NT-Pro-B Natriuret Pep 97677 H 50930 H 02239 H 03/13/20 03/15/20 03/25/20 08:40 08:44 08:40 Creatine Kinase CK-MB (CK-2) Troponin I 0.020 NT-Pro-B Natriuret Pep 83629 H 51370 H Impressions: Modified Barium Swallow 03/27/20 00:00 IMPRESSION: ASPIRATION WITH ALL CONSISTENCIES, HOWEVER SOMEWHAT IMPROVED. PLEASE SEE SPEECH PATHOLOGIST REPORT FOR OTHER FINDINGS AND RECOMMENDATIONS. Chest X-Ray 03/30/20 00:00 IMPRESSION: Worsening sepsis or edema. KUB X-Ray 03/31/20 00:00 IMPRESSION: Status post placement of enteric tube with distal tip in the expected location of the stomach. Assessment and Plan - Diagnosis (1) Acute respiratory failure due to severe acute respiratory syndrome coronavirus 2 (SARS-CoV-2) infection Is this a current diagnosis for this admission?: Yes (2) Acute respiratory failure with hypoxia and hypercapnia Is this a current diagnosis for this admission?: Yes (3) Acute kidney injury superimposed on chronic kidney disease Is this a current diagnosis for this admission?: Yes (4) Acute metabolic encephalopathy Is this a current diagnosis for this admission?: Yes (5) Acute worsening of stage 4 chronic kidney disease Is this a current diagnosis for this admission?: Yes (6) Severe sepsis without septic shock Is this a current diagnosis for this admission?: Yes (7) Leukocytosis Qualifiers: Leukocytosis type: unspecified Qualified Code(s): D72.829 - Elevated white blood cell count, unspecified Is this a current diagnosis for this admission?: Yes (8) GI bleed not requiring more than 4 units of blood in 24 hours, ICU, or surgery Is this a current diagnosis for this admission?: Yes - Plan Summary Summary: 04/03/2020 The patient has been asking for ice chips and now he wants Jell-O. I reminded him that he has failed 2 modified barium swallows at this point. The patient understands the risk but wishes to try Jello and Ice chips despite abnormal MBS. I wrote out very clearly the risks and he understood. He even wrote that if he develops problems or recurrent pneumonia he wants to stop treatment. I certainly will need to further delineate this but I think he understands the risks of trying ice chips. He still has creamy sputum in the suction tubing. His white blood cell count was coming down on the meropenem. His last serum chemistries were unremarkable. Unfortunately he continues to refuse a PEG tube. I did speak with speech therapy. They will be seeing him today. The second MBS was slightly better than the first. We may likely get a third MBS tomorrow or Wednesday to document any progress or lack thereof. He certainly has experienced significant weight loss but he refuses to allow us to provide proper nutrition. We will continue the D5 normal saline to provide some calories. 04/04/2020 He is tolerating ice chips but failed eating Jell-O. Consider another modified barium swallow to see if there is any progress. Despite explained to the patient that without nutrition is not going to get better he still declines a PEG tube. He has a perfectly functioning GI tract and we need to try and use this instead of just administering TPN. His anemia persists. His hemoglobin was 7.9 today. That is consistent with his last several blood tests. He has 1 more day of meropenem. We will then monitor him off of antibiotics. I will discuss with psychiatry. He seems to comprehend his decisions. He is seemingly making decisions that we will keep him in the hospital but this is just my opinion. We may need to have an ethics consult as he is making disposition extremely difficult and not helping himself with regards to recovery. 04/05/2020 Respiratory failure-I deflated the patient's cuff and held my finger over the tracheostomy and he was able to talk. His breathing was comfortable. I explained to the nurse that we will do trials of cuff down for several hours. We can then resume cuff up if the patient gets short of breath or in distress. I believe he will do well with the cuff down. If he continues to do well then we can swap out for a cuffless trach. I also explained that they need to be aggressive in cleaning the inner cannula. The patient is quite pleased being able to talk. Dysphasia-the patient states that he vomited with lemon Jell-O because of the taste not because of the texture. He is doing well with ice chips. He wants to try wynn Jell-O and ice cream. Once again I reviewed the fact that if he gets another pneumonia he will from it. He accepts that risk. Once again I asked about a PEG tube. He states that he does not want a PEG tube. He wants to begin eating. Unfortunately he declined working with speech therapy today. Pneumonia-he has 2 more days on his IV meropenem. We will continue to monitor. I will discuss further with the patient that if he gets pneumonia again that it is not reasonable to treat aggressively given his course. Hypertension-reasonable control. Continue current medications. Anemia-likely due to the prolonged illness. Today is day 72 of his hospitalization. He has not eaten in some time. Consider iron supplement. When he does begin swallowing definitely will add vitamins and iron. - Time Time Spent with patient: 25-34 minutes Medications reviewed and adjusted accordingly: Yes Anticipated Discharge Disposition: Unknown Anticipated Discharge Timeframe: Unknown
[2020-04-05] MEDS: ACETAMINOPHEN SOLN 325 MG/10.15 ML UDCUP NG PRN (20:55)
[2020-04-05] MEDS: TRAZODONE HCL 50 MG TABLET NG PRN (22:32)
[2020-04-06] MEDS: INSULIN LISPRO 100 UNIT/ML 3 ML VIAL SUBCUT SCH ×5 (01:34→21:46)
[2020-04-06] MEDS: MEROPENEM 1 GM in NORMAL SALINE 50 ML IV SCH ×2 (02:34→10:04)
[2020-04-06] MEDS: MORPHINE SULFATE 10 MG/ML INJ IV PRN ×3 (05:35→20:06)
[2020-04-06] MEDS: FUROSEMIDE 20 MG TABLET PO SCH (10:43)
[2020-04-06] MEDS: METOPROLOL SUCCINATE 25 MG TAB.SR.24H PO SCH (10:43)
--- NOTE | 2020-04-06 10:43 | PDOC PROGRESS REPORT ---
Subjective Progress Note for:: 04/06/20 Subjective:: Trach, PT out of bed to chair, talking, ice cream lemon ice ice pops Jell-O chicken broth wants mass potatoes and gravy Reason For Visit: HYPOXEMIC RESPIRATORY FAILURE, HEMODYNAMIC Physical Exam Vital Signs: Temp Pulse Resp BP Pulse Ox 99.3 F 87 18 125/68 96 04/05/20 19:39 04/06/20 07:00 04/05/20 19:39 04/05/20 19:39 04/06/20 00:17 Intake & Output 04/05/20 04/06/20 04/07/20 06:59 06:59 06:59 Intake Total 1410 1101 Output Total 1450 1675 Balance -40 -574 Weight 66.4 kg 64.1 kg General appearance: PRESENT: no acute distress, cooperative, thin, well- developed Head exam: PRESENT: atraumatic, normocephalic Eye exam: PRESENT: conjunctiva pale. ABSENT: scleral icterus Ear exam: PRESENT: normal external ear exam. ABSENT: bleeding, drainage Mouth exam: PRESENT: moist, tongue midline Neck exam: PRESENT: tracheostomy - Still with whitaker mucoid discharge around the tracheostomy tube. ABSENT: carotid bruit, JVD, lymphadenopathy Respiratory exam: PRESENT: rhonchi - On the right, symmetrical, unlabored. ABSENT: rales, tachypnea, wheezes Cardiovascular exam: PRESENT: RRR, +S1, +S2. ABSENT: bradycardia, diastolic murmur, irregular rhythm, systolic murmur, tachycardia GI/Abdominal exam: PRESENT: normal bowel sounds, soft. ABSENT: distended, guarding, tenderness Rectal exam: PRESENT: deferred Gentrourinary exam: PRESENT: indwelling catheter Extremities exam: ABSENT: pedal edema Musculoskeletal exam: PRESENT: ambulatory - He was able to transfer to the chair with physical therapy today. ABSENT: deformity, dislocation, normal inspection - Decreased muscle mass Neurological exam: PRESENT: alert, awake, oriented to person, oriented to place, oriented to time, oriented to situation, CN II-XII grossly intact. ABSENT: altered Psychiatric exam: PRESENT: appropriate affect. ABSENT: agitated, anxious Focused psych exam: ABSENT: delusional, paranoid, restlessness Skin exam: PRESENT: dry, pallor, warm. ABSENT: erythema, rash Results Laboratory Results: 04/04/20 08:00 04/02/20 04:36 01/24/20 01/24/20 01/24/20 00:03 00:03 04:20 Creatine Kinase 80 CK-MB (CK-2) 0.63 Troponin I 0.132 0.133 NT-Pro-B Natriuret Pep [id number] H 01/24/20 01/24/20 01/24/20 10:43 17:19 23:06 Creatine Kinase CK-MB (CK-2) Troponin I 0.114 0.079 0.075 NT-Pro-B Natriuret Pep 07560 H 01/30/20 01/31/20 02/01/20 03:45 05:39 06:14 Creatine Kinase CK-MB (CK-2) Troponin I NT-Pro-B Natriuret Pep 59338 H 85659 H 94787 H 02/02/20 02/27/20 02/27/20 04:24 08:12 08:12 Creatine Kinase 33 L CK-MB (CK-2) 2.16 Troponin I 0.013 NT-Pro-B Natriuret Pep 27086 H 02/27/20 02/28/20 02/29/20 08:12 05:44 05:35 Creatine Kinase CK-MB (CK-2) Troponin I NT-Pro-B Natriuret Pep 20185 H 02085 H 06844 H 03/02/20 03/03/20 03/11/20 05:44 05:00 04:33 Creatine Kinase CK-MB (CK-2) Troponin I NT-Pro-B Natriuret Pep 35701 H 12219 H 26456 H 03/13/20 03/15/20 03/25/20 08:40 08:44 08:40 Creatine Kinase CK-MB (CK-2) Troponin I 0.020 NT-Pro-B Natriuret Pep 31424 H 96483 H Impressions: Modified Barium Swallow 03/27/20 00:00 IMPRESSION: ASPIRATION WITH ALL CONSISTENCIES, HOWEVER SOMEWHAT IMPROVED. PLEASE SEE SPEECH PATHOLOGIST REPORT FOR OTHER FINDINGS AND RECOMMENDATIONS. Chest X-Ray 03/30/20 00:00 IMPRESSION: Worsening sepsis or edema. KUB X-Ray 03/31/20 00:00 IMPRESSION: Status post placement of enteric tube with distal tip in the expected location of the stomach. Assessment and Plan - Diagnosis (1) Acute respiratory failure due to severe acute respiratory syndrome coronavirus 2 (SARS-CoV-2) infection Is this a current diagnosis for this admission?: Yes (2) Acute respiratory failure with hypoxia and hypercapnia Is this a current diagnosis for this admission?: Yes (3) Acute kidney injury superimposed on chronic kidney disease Is this a current diagnosis for this admission?: Yes (4) Acute metabolic encephalopathy Is this a current diagnosis for this admission?: Yes (5) Acute worsening of stage 4 chronic kidney disease Is this a current diagnosis for this admission?: Yes (6) Severe sepsis without septic shock Is this a current diagnosis for this admission?: Yes (7) Leukocytosis Qualifiers: Leukocytosis type: unspecified Qualified Code(s): D72.829 - Elevated white blood cell count, unspecified Is this a current diagnosis for this admission?: Yes (8) GI bleed not requiring more than 4 units of blood in 24 hours, ICU, or surgery Is this a current diagnosis for this admission?: Yes - Plan Summary Summary: 04/03/2020 The patient has been asking for ice chips and now he wants Jell-O. I reminded him that he has failed 2 modified barium swallows at this point. The patient understands the risk but wishes to try Jello and Ice chips despite abnormal MBS. I wrote out very clearly the risks and he understood. He even wrote that if he develops problems or recurrent pneumonia he wants to stop treatment. I certainly will need to further delineate this but I think he understands the risks of trying ice chips. He still has creamy sputum in the suction tubing. His white blood cell count was coming down on the meropenem. His last serum chemistries were unremarkable. Unfortunately he continues to refuse a PEG tube. I did speak with speech therapy. They will be seeing him today. The second MBS was slightly better than the first. We may likely get a third MBS tomorrow or Wednesday to document any progress or lack thereof. He certainly has experienced significant weight loss but he refuses to allow us to provide proper nutrition. We will continue the D5 normal saline to provide some calories. 04/04/2020 He is tolerating ice chips but failed eating Jell-O. Consider another modified barium swallow to see if there is any progress. Despite explained to the patient that without nutrition is not going to get better he still declines a PEG tube. He has a perfectly functioning GI tract and we need to try and use this instead of just administering TPN. His anemia persists. His hemoglobin was 7.9 today. That is consistent with his last several blood tests. He has 1 more day of meropenem. We will then monitor him off of antibiotics. I will discuss with psychiatry. He seems to comprehend his decisions. He is seemingly making decisions that we will keep him in the hospital but this is just my opinion. We may need to have an ethics consult as he is making disposition extremely difficult and not helping himself with regards to recovery. 04/05/2020 Respiratory failure-I deflated the patient's cuff and held my finger over the tracheostomy and he was able to talk. His breathing was comfortable. I explained to the nurse that we will do trials of cuff down for several hours. We can then resume cuff up if the patient gets short of breath or in distress. I believe he will do well with the cuff down. If he continues to do well then we can swap out for a cuffless trach. I also explained that they need to be aggressive in cleaning the inner cannula. The patient is quite pleased being able to talk. Dysphagia-the patient states that he vomited with lemon Jell-O because of the taste not because of the texture. He is doing well with ice chips. He wants to try wynn Jell-O and ice cream. Once again I reviewed the fact that if he gets another pneumonia he will from it. He accepts that risk. Once again I asked about a PEG tube. He states that he does not want a PEG tube. He wants to begin eating. Unfortunately he declined working with speech therapy today. Pneumonia-he has 2 more days on his IV meropenem. We will continue to monitor. I will discuss further with the patient that if he gets pneumonia again that it is not reasonable to treat aggressively given his course. Hypertension-reasonable control. Continue current medications. Anemia-likely due to the prolonged illness. Today is day 72 of his hospitalization. He has not eaten in some time. Consider iron supplement. When he does begin swallowing definitely will add vitamins and iron. 04/06/2020 Cuff is been deflated since yesterday. He has not needed ventilatory support. He speaks easily by occluding the trach. Consider downsizing to a cuffless trach. Dysphagia-we are going to try and advance his diet slightly. He has done well with ice cream, lemon ice and chicken broth. We are going to try mesh potatoes and gravy. I explained to him that there is still significant risk of aspiration. He is aware of this. We are going to try and develop a strong cough to help him protect his airway. IV antibiotics will be completed shortly. Will monitor closely for any signs of reinfection. The patient is pleased with his progress. He understands that he also has to work with physical therapy to help his recovery. Need to remove sutures from tracheostomy. - Time Time Spent with patient: 25-34 minutes Medications reviewed and adjusted accordingly: Yes Anticipated Discharge Disposition: Shelter Facility Anticipated Discharge Timeframe: Unknown
[2020-04-06] MEDS: THIAMINE HCL 100 MG TABLET PO SCH (10:44)
[2020-04-06] MEDS: PANTOPRAZOLE SODIUM 40 MG PACKET.DR NG SCH (10:44)
[2020-04-06] MEDS: LISINOPRIL 5 MG TABLET PO SCH ×2 (10:44→22:07)
[2020-04-06] MEDS: LACTULOSE SYRUP 20 GM/30 ML UDCUP PO SCH ×2 (10:54→22:07)
[2020-04-06] MEDS: INSULIN GLARGINE,HUM.REC.ANLOG 1,000 UNIT/10 ML VIAL SUBCUT SCH (10:55)
[2020-04-06] MEDS: ENOXAPARIN SODIUM INJ 40 MG/0.4 ML DISP.SYRIN SUBCUT SCH (10:55)
[2020-04-06] MEDS: SENNOSIDES/DOCUSATE 8.6-50 MG 1 EACH TABLET PO SCH (10:57)
[2020-04-06] MEDS: SCOPOLAMINE HYDROBROMIDE 1.5 MG PATCH.TD72 TD SCH (11:06)
[2020-04-06] MEDS: DIPHENHYDRAMINE HCL 50 MG/ML VIAL IV PRN ×2 (14:15→20:06)
[2020-04-06] MEDS: ONDANSETRON HCL INJ/PF 4 MG/2 ML SDV IV PRN ×2 (16:18→20:06)
[2020-04-06] MEDS ORDERED: SCOPOLAMINE HYDROBROMIDE 1.5 MG PATCH.TD72 ONE (22:00)
[2020-04-06] MEDS: TRAZODONE HCL 50 MG TABLET NG PRN (22:15)
[2020-04-06] MEDS ORDERED: SCOPOLAMINE HYDROBROMIDE 1.5 MG PATCH.TD72 TD SCH (22:30)
[2020-04-07] MEDS: MORPHINE SULFATE 10 MG/ML INJ IV PRN ×2 (04:44→18:39)
[2020-04-07] MEDS: DIPHENHYDRAMINE HCL 50 MG/ML VIAL IV PRN ×2 (04:44→18:40)
[2020-04-07] MEDS: ONDANSETRON HCL INJ/PF 4 MG/2 ML SDV IV PRN (04:44)
[2020-04-07] MEDS: DEXTROSE 5%-NORMAL SALINE 1,000 ML IV PRN (04:49)
[2020-04-07 09:05] LABS: HEMATOCRIT 26.7 % (37.9-51.0); HEMOGLOBIN 8.7 g/dL (13.5-17.0); MEAN CORPUSCULAR HEMOGLOBIN 27.7 pg (27.0-33.4); MEAN CORPUSCULAR HGB CONC 32.5 g/dL (32.0-36.0); MEAN CORPUSCULAR VOLUME 85 fl (80-97); PLATELET COUNT 510 10^3/uL (150-450); RED BLOOD COUNT 3.14 10^6/uL (4.35-5.55); RED CELL DISTRIBUTION WIDTH 18.2 % (11.5-14.0); WHITE BLOOD COUNT 10.3 10^3/uL (4.0-10.5)
[2020-04-07] MEDS: INSULIN LISPRO 100 UNIT/ML 3 ML VIAL SUBCUT SCH ×4 (09:19→21:32)
[2020-04-07] MEDS: INSULIN GLARGINE,HUM.REC.ANLOG 1,000 UNIT/10 ML VIAL SUBCUT SCH (09:20)
[2020-04-07] MEDS: LACTULOSE SYRUP 20 GM/30 ML UDCUP PO SCH ×2 (09:20→21:33)
[2020-04-07] MEDS: LISINOPRIL 5 MG TABLET PO SCH ×2 (09:21→21:33)
[2020-04-07] MEDS: FUROSEMIDE 20 MG TABLET PO SCH (09:21)
[2020-04-07] MEDS: METOPROLOL SUCCINATE 25 MG TAB.SR.24H PO SCH (09:22)
[2020-04-07] MEDS: PANTOPRAZOLE SODIUM 40 MG PACKET.DR NG SCH (09:22)
[2020-04-07 09:23] LABS: ANION GAP 7 (5-19); BLOOD UREA NITROGEN 10 mg/dL (7-20); CALCIUM 8.5 mg/dL (8.4-10.2); CARBON DIOXIDE 28 mmol/L (22-30); CHLORIDE 103 mmol/L (98-107); GLUCOSE 93 mg/dL (75-110); POTASSIUM 4.1 mmol/L (3.6-5.0)
[2020-04-07] MEDS: SENNOSIDES/DOCUSATE 8.6-50 MG 1 EACH TABLET PO SCH (09:23)
[2020-04-07] MEDS: THIAMINE HCL 100 MG TABLET PO SCH (09:23)
[2020-04-07 09:30] LABS: PREALBUMIN 13.5 mg/dL (17.6-36.0)
[2020-04-07] MEDS: ENOXAPARIN SODIUM INJ 40 MG/0.4 ML DISP.SYRIN SUBCUT SCH (09:30)
--- NOTE | 2020-04-07 13:14 | PDOC PROGRESS REPORT ---
Subjective Progress Note for:: 04/07/20 Subjective:: The patient states that he did not do well with the mesh potatoes. He feels that there may have been too thick. He is sitting eating an orange at this point but he is having a lot of drainage from the tracheostomy. Will discuss with speech therapy regarding consistencies. In addition he was getting hypotensive when sitting up. I believe this is due to the fact that he has been in bed for a prolonged period and his body is getting used to being upright. Reason For Visit: HYPOXEMIC RESPIRATORY FAILURE, HEMODYNAMIC Physical Exam Vital Signs: Temp Pulse Resp BP Pulse Ox 97.9 F 89 17 123/79 97 04/07/20 10:00 04/07/20 07:23 04/07/20 07:23 04/07/20 07:23 04/07/20 07:23 Intake & Output 04/06/20 04/07/20 04/08/20 06:59 06:59 06:59 Intake Total 1101 1320 Output Total 1675 2125 Balance -574 -805 Weight 64.1 kg 64.7 kg General appearance: PRESENT: cooperative, mild distress - Coughing, thin Head exam: PRESENT: atraumatic, normocephalic Mouth exam: PRESENT: moist, tongue midline Neck exam: PRESENT: tracheostomy Respiratory exam: PRESENT: rhonchi - Right side, symmetrical, unlabored, other - Consistent coughing. ABSENT: prolonged expiratory phas, rales, tachypnea, wheezes Cardiovascular exam: PRESENT: RRR, +S1, +S2. ABSENT: bradycardia, diastolic murmur, irregular rhythm, systolic murmur, tachycardia GI/Abdominal exam: PRESENT: normal bowel sounds, soft. ABSENT: distended, tenderness Rectal exam: PRESENT: deferred Extremities exam: ABSENT: pedal edema Musculoskeletal exam: ABSENT: ambulatory - Still not strong enough to ambulate but is standing with physical therapy, deformity, dislocation, normal inspection - Decreased muscle mass Neurological exam: PRESENT: alert, awake, oriented to person, oriented to place, oriented to time, oriented to situation, CN II-XII grossly intact Psychiatric exam: PRESENT: appropriate affect. ABSENT: agitated, anxious Focused psych exam: ABSENT: delusional, paranoid, restlessness Skin exam: PRESENT: dry, pallor, warm. ABSENT: petechiae Results Laboratory Results: 04/07/20 08:45 04/07/20 08:45 04/07/20 04/07/20 08:45 08:45 WBC 10.3 RBC 3.14 L Hgb 8.7 L Hct 26.7 L MCV 85 MCH 27.7 MCHC 32.5 RDW 18.2 H Plt Count 510 H Sodium 137.6 Potassium 4.1 Chloride 103 Carbon Dioxide 28 Anion Gap 7 BUN 10 Creatinine 0.70 Est GFR ( Amer) > 60 Glucose 93 Calcium 8.5 Magnesium 1.5 L Prealbumin 13.5 L 01/24/20 01/24/20 01/24/20 00:03 00:03 04:20 Creatine Kinase 80 CK-MB (CK-2) 0.63 Troponin I 0.132 0.133 NT-Pro-B Natriuret Pep 67807 H 01/24/20 01/24/20 01/24/20 10:43 17:19 23:06 Creatine Kinase CK-MB (CK-2) Troponin I 0.114 0.079 0.075 NT-Pro-B Natriuret Pep 53878 H 01/30/20 01/31/20 02/01/20 03:45 05:39 06:14 Creatine Kinase CK-MB (CK-2) Troponin I NT-Pro-B Natriuret Pep 45770 H 21850 H 60785 H 02/02/20 02/27/20 02/27/20 04:24 08:12 08:12 Creatine Kinase 33 L CK-MB (CK-2) 2.16 Troponin I 0.013 NT-Pro-B Natriuret Pep 86063 H 02/27/20 02/28/20 02/29/20 08:12 05:44 05:35 Creatine Kinase CK-MB (CK-2) Troponin I NT-Pro-B Natriuret Pep 04672 H 22421 H 26206 H 03/02/20 03/03/20 03/11/20 05:44 05:00 04:33 Creatine Kinase CK-MB (CK-2) Troponin I NT-Pro-B Natriuret Pep 48530 H 21827 H 58998 H 03/13/20 03/15/20 03/25/20 08:40 08:44 08:40 Creatine Kinase CK-MB (CK-2) Troponin I 0.020 NT-Pro-B Natriuret Pep 63106 H 40378 H Impressions: Modified Barium Swallow 03/27/20 00:00 IMPRESSION: ASPIRATION WITH ALL CONSISTENCIES, HOWEVER SOMEWHAT IMPROVED. PLEASE SEE SPEECH PATHOLOGIST REPORT FOR OTHER FINDINGS AND RECOMMENDATIONS. Chest X-Ray 03/30/20 00:00 IMPRESSION: Worsening sepsis or edema. KUB X-Ray 03/31/20 00:00 IMPRESSION: Status post placement of enteric tube with distal tip in the expected location of the stomach. Assessment and Plan - Diagnosis (1) Acute respiratory failure due to severe acute respiratory syndrome coronavirus 2 (SARS-CoV-2) infection Is this a current diagnosis for this admission?: Yes (2) Acute respiratory failure with hypoxia and hypercapnia Is this a current diagnosis for this admission?: Yes (3) Acute kidney injury superimposed on chronic kidney disease Is this a current diagnosis for this admission?: Yes (4) Acute metabolic encephalopathy Is this a current diagnosis for this admission?: Yes (5) Acute worsening of stage 4 chronic kidney disease Is this a current diagnosis for this admission?: Yes (6) Severe sepsis without septic shock Is this a current diagnosis for this admission?: Yes (7) Leukocytosis Qualifiers: Leukocytosis type: unspecified Qualified Code(s): D72.829 - Elevated white blood cell count, unspecified Is this a current diagnosis for this admission?: Yes (8) GI bleed not requiring more than 4 units of blood in 24 hours, ICU, or surgery Is this a current diagnosis for this admission?: Yes (9) Hypomagnesemia Is this a current diagnosis for this admission?: Yes - Plan Summary Summary: 04/03/2020 The patient has been asking for ice chips and now he wants Jell-O. I reminded him that he has failed 2 modified barium swallows at this point. The patient understands the risk but wishes to try Jello and Ice chips despite abnormal MBS. I wrote out very clearly the risks and he understood. He even wrote that if he develops problems or recurrent pneumonia he wants to stop treatment. I certainly will need to further delineate this but I think he understands the risks of trying ice chips. He still has creamy sputum in the suction tubing. His white blood cell count was coming down on the meropenem. His last serum chemistries were unremarkable. Unfortunately he continues to refuse a PEG tube. I did speak with speech therapy. They will be seeing him today. The second MBS was slightly better than the first. We may likely get a third MBS tomorrow or Wednesday to document any progress or lack thereof. He certainly has experienced significant weight loss but he refuses to allow us to provide proper nutrition. We will continue the D5 normal saline to provide some calories. 04/04/2020 He is tolerating ice chips but failed eating Jell-O. Consider another modified barium swallow to see if there is any progress. Despite explained to the patient that without nutrition is not going to get better he still declines a PEG tube. He has a perfectly functioning GI tract and we need to try and use this instead of just administering TPN. His anemia persists. His hemoglobin was 7.9 today. That is consistent with his last several blood tests. He has 1 more day of meropenem. We will then monitor him off of antibiotics. I will discuss with psychiatry. He seems to comprehend his decisions. He is seemingly making decisions that we will keep him in the hospital but this is just my opinion. We may need to have an ethics consult as he is making disposition extremely difficult and not helping himself with regards to recovery. 04/05/2020 Respiratory failure-I deflated the patient's cuff and held my finger over the tracheostomy and he was able to talk. His breathing was comfortable. I explained to the nurse that we will do trials of cuff down for several hours. We can then resume cuff up if the patient gets short of breath or in distress. I believe he will do well with the cuff down. If he continues to do well then we can swap out for a cuffless trach. I also explained that they need to be aggressive in cleaning the inner cannula. The patient is quite pleased being able to talk. Dysphagia-the patient states that he vomited with lemon Jell-O because of the taste not because of the texture. He is doing well with ice chips. He wants to try wynn Jell-O and ice cream. Once again I reviewed the fact that if he gets another pneumonia he will from it. He accepts that risk. Once again I asked about a PEG tube. He states that he does not want a PEG tube. He wants to begin eating. Unfortunately he declined working with speech therapy today. Pneumonia-he has 2 more days on his IV meropenem. We will continue to monitor. I will discuss further with the patient that if he gets pneumonia again that it is not reasonable to treat aggressively given his course. Hypertension-reasonable control. Continue current medications. Anemia-likely due to the prolonged illness. Today is day 72 of his hospitalization. He has not eaten in some time. Consider iron supplement. When he does begin swallowing definitely will add vitamins and iron. 04/06/2020 Cuff is been deflated since yesterday. He has not needed ventilatory support. He speaks easily by occluding the trach. Consider downsizing to a cuffless trach. Dysphagia-we are going to try and advance his diet slightly. He has done well with ice cream, lemon ice and chicken broth. We are going to try mesh potatoes and gravy. I explained to him that there is still significant risk of aspiration. He is aware of this. We are going to try and develop a strong cough to help him protect his airway. IV antibiotics will be completed shortly. Will monitor closely for any signs of reinfection. The patient is pleased with his progress. He understands that he also has to work with physical therapy to help his recovery. Need to remove sutures from tracheostomy. 04/07/2020 The patient has not needed the ventilator and has had his cuff down on trach collar for 3 days now. I will likely change him to a cuffless trach tomorrow. I will discuss this with the patient. With a cuffless trach he would have to have his trach replaced if he needed to go on the ventilator. He is still aspirating and will discuss the treatment plan if he were to get aspiration pneumonia again. His blood pressure was low today. He was up in the chair. Since he has not been out of bed for many weeks this is not surprising. We will adjust his medications appropriately. He has been working with physical therapy as he understands this is going to benefit him in the long run. Of note the patient's magnesium was low. I have ordered intravenous supplement. - Time Time Spent with patient: 15-24 minutes Medications reviewed and adjusted accordingly: Yes Anticipated Discharge Disposition: Unknown Anticipated Discharge Timeframe: Unknown
[2020-04-07] MEDS ORDERED: MAGNESIUM SULFATE/D5W 1 GM/100 ML RTUPB IV ONE (18:11)
[2020-04-07] MEDS: MAGNESIUM SULFATE/D5W 1 GM/100 ML RTUPB IV SCH ×2 (18:21→19:51)
[2020-04-08] MEDS: MORPHINE SULFATE 10 MG/ML INJ IV PRN ×4 (00:39→19:45)
[2020-04-08] MEDS: DIPHENHYDRAMINE HCL 50 MG/ML VIAL IV PRN ×4 (00:47→19:45)
[2020-04-08] MEDS: DEXTROSE 5%-NORMAL SALINE 1,000 ML IV PRN ×2 (04:11→19:46)
[2020-04-08] MEDS: ACETAMINOPHEN SOLN 325 MG/10.15 ML UDCUP NG PRN (04:59)
[2020-04-08] MEDS: INSULIN LISPRO 100 UNIT/ML 3 ML VIAL SUBCUT SCH ×4 (09:55→21:53)
[2020-04-08] MEDS: LACTULOSE SYRUP 20 GM/30 ML UDCUP PO SCH ×2 (10:03→21:58)
[2020-04-08] MEDS: PANTOPRAZOLE SODIUM 40 MG PACKET.DR NG SCH (10:03)
[2020-04-08] MEDS: SENNOSIDES/DOCUSATE 8.6-50 MG 1 EACH TABLET PO SCH (10:03)
[2020-04-08] MEDS: THIAMINE HCL 100 MG TABLET PO SCH (10:03)
[2020-04-08] MEDS: LISINOPRIL 5 MG TABLET PO SCH ×2 (10:03→21:58)
[2020-04-08] MEDS: FUROSEMIDE 20 MG TABLET PO SCH (10:04)
[2020-04-08] MEDS: METOPROLOL SUCCINATE 25 MG TAB.SR.24H PO SCH (10:04)
[2020-04-08] MEDS: ENOXAPARIN SODIUM INJ 40 MG/0.4 ML DISP.SYRIN SUBCUT SCH (10:06)
[2020-04-08] MEDS: INSULIN GLARGINE,HUM.REC.ANLOG 1,000 UNIT/10 ML VIAL SUBCUT SCH (10:06)
[2020-04-08] MEDS: PROMETHAZINE HCL INJ 25 MG/1 ML VIAL IV PRN (11:37)
--- NOTE | 2020-04-08 22:24 | PDOC PROGRESS REPORT ---
Subjective Progress Note for:: 04/08/20 Subjective:: The patient is resting comfortably. He continues to talk with a strong voice by occluding the tracheostomy. Still suctioning mucus but he does not appear to be related to foodstuffs as much as the last several days. Reason For Visit: HYPOXEMIC RESPIRATORY FAILURE, HEMODYNAMIC Physical Exam Vital Signs: Temp Pulse Resp BP Pulse Ox 98.2 F 103 H 18 124/72 92 04/08/20 16:44 04/08/20 16:44 04/08/20 16:44 04/08/20 16:44 04/08/20 20:14 Intake & Output 04/07/20 04/08/20 04/09/20 06:59 06:59 06:59 Intake Total 1320 1460 1781 Output Total 2125 1950 720 Balance -805 -490 1061 Weight 64.7 kg 66.6 kg General appearance: PRESENT: no acute distress, cooperative, well-developed Head exam: PRESENT: atraumatic, normocephalic, other - Some temporal wasting Eye exam: PRESENT: conjunctiva pale. ABSENT: scleral icterus Ear exam: PRESENT: normal external ear exam. ABSENT: bleeding, drainage Mouth exam: PRESENT: moist, tongue midline Teeth exam: PRESENT: poor dentation Neck exam: PRESENT: tracheostomy. ABSENT: carotid bruit, JVD, lymphadenopathy Respiratory exam: PRESENT: rhonchi - On the right. Less than yesterday., symmetrical, unlabored. ABSENT: prolonged expiratory phas, rales, tachypnea, wheezes Cardiovascular exam: PRESENT: RRR, +S1, +S2. ABSENT: bradycardia, diastolic murmur, irregular rhythm, systolic murmur, tachycardia GI/Abdominal exam: PRESENT: normal bowel sounds, soft. ABSENT: tenderness Rectal exam: PRESENT: deferred Extremities exam: ABSENT: pedal edema Musculoskeletal exam: PRESENT: normal inspection. ABSENT: deformity, dislocation Neurological exam: PRESENT: alert, awake, oriented to person, oriented to place, oriented to time, oriented to situation, CN II-XII grossly intact. ABSENT: altered Psychiatric exam: PRESENT: appropriate affect. ABSENT: agitated, anxious Focused psych exam: ABSENT: delusional, paranoid, restlessness Skin exam: PRESENT: dry, pallor, warm Results Laboratory Results: 04/07/20 08:45 04/07/20 08:45 01/24/20 01/24/20 01/24/20 00:03 00:03 04:20 Creatine Kinase 80 CK-MB (CK-2) 0.63 Troponin I 0.132 0.133 NT-Pro-B Natriuret Pep 40445 H 01/24/20 01/24/20 01/24/20 10:43 17:19 23:06 Creatine Kinase CK-MB (CK-2) Troponin I 0.114 0.079 0.075 NT-Pro-B Natriuret Pep 08596 H 01/30/20 01/31/20 02/01/20 03:45 05:39 06:14 Creatine Kinase CK-MB (CK-2) Troponin I NT-Pro-B Natriuret Pep 12291 H 37806 H 29116 H 02/02/20 02/27/20 02/27/20 04:24 08:12 08:12 Creatine Kinase 33 L CK-MB (CK-2) 2.16 Troponin I 0.013 NT-Pro-B Natriuret Pep 31890 H 02/27/20 02/28/20 02/29/20 08:12 05:44 05:35 Creatine Kinase CK-MB (CK-2) Troponin I NT-Pro-B Natriuret Pep 07202 H 35939 H 20233 H 03/02/20 03/03/20 03/11/20 05:44 05:00 04:33 Creatine Kinase CK-MB (CK-2) Troponin I NT-Pro-B Natriuret Pep 17045 H 10877 H 57457 H 03/13/20 03/15/20 03/25/20 08:40 08:44 08:40 Creatine Kinase CK-MB (CK-2) Troponin I 0.020 NT-Pro-B Natriuret Pep 73401 H 22839 H Impressions: Modified Barium Swallow 03/27/20 00:00 IMPRESSION: ASPIRATION WITH ALL CONSISTENCIES, HOWEVER SOMEWHAT IMPROVED. PLEASE SEE SPEECH PATHOLOGIST REPORT FOR OTHER FINDINGS AND RECOMMENDATIONS. Chest X-Ray 03/30/20 00:00 IMPRESSION: Worsening sepsis or edema. KUB X-Ray 03/31/20 00:00 IMPRESSION: Status post placement of enteric tube with distal tip in the expected location of the stomach. Assessment and Plan - Diagnosis (1) Acute respiratory failure due to severe acute respiratory syndrome coronavirus 2 (SARS-CoV-2) infection Is this a current diagnosis for this admission?: Yes (2) Acute respiratory failure with hypoxia and hypercapnia Is this a current diagnosis for this admission?: Yes (3) Acute kidney injury superimposed on chronic kidney disease Is this a current diagnosis for this admission?: Yes (4) Acute metabolic encephalopathy Is this a current diagnosis for this admission?: Yes (5) Acute worsening of stage 4 chronic kidney disease Is this a current diagnosis for this admission?: Yes (6) Severe sepsis without septic shock Is this a current diagnosis for this admission?: Yes (7) Leukocytosis Qualifiers: Leukocytosis type: unspecified Qualified Code(s): D72.829 - Elevated white blood cell count, unspecified Is this a current diagnosis for this admission?: Yes (8) GI bleed not requiring more than 4 units of blood in 24 hours, ICU, or surg arabella Is this a current diagnosis for this admission?: Yes (9) Hypomagnesemia Is this a current diagnosis for this admission?: Yes - Plan Summary Summary: 04/03/2020 The patient has been asking for ice chips and now he wants Jell-O. I reminded him that he has failed 2 modified barium swallows at this point. The patient understands the risk but wishes to try Jello and Ice chips despite abnormal MBS. I wrote out very clearly the risks and he understood. He even wrote that if he develops problems or recurrent pneumonia he wants to stop treatment. I certainly will need to further delineate this but I think he understands the risks of trying ice chips. He still has creamy sputum in the suction tubing. His white blood cell count was coming down on the meropenem. His last serum chemistries were unremarkable. Unfortunately he continues to refuse a PEG tube. I did speak with speech therapy. They will be seeing him today. The second MBS was slightly better than the first. We may likely get a third MBS tomorrow or Wednesday to document any progress or lack thereof. He certainly has experienced significant weight loss but he refuses to allow us to provide proper nutrition. We will continue the D5 normal saline to provide some calories. 04/04/2020 He is tolerating ice chips but failed eating Jell-O. Consider another modified barium swallow to see if there is any progress. Despite explained to the patient that without nutrition is not going to get better he still declines a PEG tube. He has a perfectly functioning GI tract and we need to try and use this instead of just administering TPN. His anemia persists. His hemoglobin was 7.9 today. That is consistent with his last several blood tests. He has 1 more day of meropenem. We will then monitor him off of antibiotics. I will discuss with psychiatry. He seems to comprehend his decisions. He is seemingly making decisions that we will keep him in the hospital but this is just my opinion. We may need to have an ethics consult as he is making disposition extremely difficult and not helping himself with regards to recovery. 04/05/2020 Respiratory failure-I deflated the patient's cuff and held my finger over the tracheostomy and he was able to talk. His breathing was comfortable. I explained to the nurse that we will do trials of cuff down for several hours. We can then resume cuff up if the patient gets short of breath or in distress. I believe he will do well with the cuff down. If he continues to do well then we can swap out for a cuffless trach. I also explained that they need to be aggressive in cleaning the inner cannula. The patient is quite pleased being able to talk. Dysphagia-the patient states that he vomited with lemon Jell-O because of the taste not because of the texture. He is doing well with ice chips. He wants to try wynn Jell-O and ice cream. Once again I reviewed the fact that if he gets another pneumonia he will from it. He accepts that risk. Once again I asked about a PEG tube. He states that he does not want a PEG tube. He wants to begin eating. Unfortunately he declined working with speech therapy today. Pneumonia-he has 2 more days on his IV meropenem. We will continue to monitor. I will discuss further with the patient that if he gets pneumonia again that it is not reasonable to treat aggressively given his course. Hypertension-reasonable control. Continue current medications. Anemia-likely due to the prolonged illness. Today is day 72 of his hospitalization. He has not eaten in some time. Consider iron supplement. When he does begin swallowing definitely will add vitamins and iron. 04/06/2020 Cuff is been deflated since yesterday. He has not needed ventilatory support. He speaks easily by occluding the trach. Consider downsizing to a cuffless trach. Dysphagia-we are going to try and advance his diet slightly. He has done well with ice cream, lemon ice and chicken broth. We are going to try mesh potatoes and gravy. I explained to him that there is still significant risk of aspiration. He is aware of this. We are going to try and develop a strong cough to help him protect his airway. IV antibiotics will be completed shortly. Will monitor closely for any signs of reinfection. The patient is pleased with his progress. He understands that he also has to work with physical therapy to help his recovery. Need to remove sutures from tracheostomy. 04/07/2020 The patient has not needed the ventilator and has had his cuff down on trach collar for 3 days now. I will likely change him to a cuffless trach tomorrow. I will discuss this with the patient. With a cuffless trach he would have to have his trach replaced if he needed to go on the ventilator. He is still aspirating and will discuss the treatment plan if he were to get aspiration pneumonia again. His blood pressure was low today. He was up in the chair. Since he has not been out of bed for many weeks this is not surprising. We will adjust his medications appropriately. He has been working with physical therapy as he understands this is going to benefit him in the long run. Of note the patient's magnesium was low. I have ordered intravenous supplement. 04/08/2020 Still slightly low magnesium. I will order additional IV magnesium. When his swallow improves will change to oral dosing. Respiratory failure-the patient has been off of the ventilator for 4 days now. I changed him to a fenestrated cuffless #8 Shiley today. We have a button to occlude the trach so he can talk. I explained that he needs to develop a strong cough. It is a good sign that his voice is so strong. Dysphagia-since he has done very well over the weekend I believe repeating a modified barium study would be helpful this week. I will discuss with speech therapy. Anemia-the patient is still anemic. I will give him a series of B12 shots and a dose of iron sucrose. As his diet improves his anemia should improve as well. Pneumonia-he has been off of antibiotics for several days. Will monitor vitals and white blood cell count closely. I believe his swallow is getting stronger and his aspiration will improve. - Time Time Spent with patient: 15-24 minutes Medications reviewed and adjusted accordingly: Yes Anticipated Discharge Disposition[facility] Anticipated Discharge Timeframe: Unknown
--- NOTE | 2020-04-08 22:27 | Progress Note ---
Provider Note Provider Note: 04/08/2020 The patient has had a cuffed #8 Shiley trach since March 18. Unfortunately the sutures remain in place. There is redness around the suture sites. The patient's cuff has been down for 4 days. He has not needed the ventilator. He has a strong voice when he occludes the trach. With respiratory therapy present I remove the old tracheostomy after removing the sutures. The site was thoroughly cleaned with peroxide and gauze. Once that was completed I placed a fenestrated #8 cuffless [address] tracheostomy in place. A drain sponge gauze was placed under the tracheostomy cuff. The tracheostomy was then secured in place. The inner cannula was placed. We did trial the button to occlude the trach. I asked respiratory therapy to put him on trach collar at night. We can certainly try capping the trach during the day and utilizing nasal cannula oxygen if needed. The patient tolerated the procedure well. The next step would be to use a #6 cuffless trach and eventual decannulation.
[2020-04-08] MEDS: MAGNESIUM SULFATE/D5W 1 GM/100 ML RTUPB IV SCH (23:33)
[2020-04-09] MEDS: MAGNESIUM SULFATE/D5W 1 GM/100 ML RTUPB IV SCH (00:51)
[2020-04-09] MEDS: MORPHINE SULFATE 10 MG/ML INJ IV PRN ×3 (01:14→17:04)
[2020-04-09 07:47] LABS: ANION GAP 5 (5-19); BLOOD UREA NITROGEN 12 mg/dL (7-20); CALCIUM 8.2 mg/dL (8.4-10.2); CARBON DIOXIDE 26 mmol/L (22-30); CHLORIDE 107 mmol/L (98-107); GLUCOSE 114 mg/dL (75-110); POTASSIUM 3.9 mmol/L (3.6-5.0)
[2020-04-09] MEDS: INSULIN LISPRO 100 UNIT/ML 3 ML VIAL SUBCUT SCH ×4 (08:54→23:37)
[2020-04-09] MEDS: DEXTROSE 5%-NORMAL SALINE 1,000 ML IV PRN (09:19)
[2020-04-09] MEDS: PROMETHAZINE HCL INJ 25 MG/1 ML VIAL IV PRN ×2 (09:20→17:09)
[2020-04-09] MEDS: ENOXAPARIN SODIUM INJ 40 MG/0.4 ML DISP.SYRIN SUBCUT SCH (09:27)
[2020-04-09] MEDS: DIPHENHYDRAMINE HCL 50 MG/ML VIAL IV PRN ×2 (09:28→17:10)
[2020-04-09] MEDS: CYANOCOBALAMIN (VITAMIN B-12) INJ 1000 MCG/1 ML VIAL IM SCH (09:30)
[2020-04-09] MEDS: THIAMINE HCL 100 MG TABLET PO SCH (09:32)
[2020-04-09] MEDS: FUROSEMIDE 20 MG TABLET PO SCH (09:33)
[2020-04-09] MEDS: METOPROLOL SUCCINATE 25 MG TAB.SR.24H PO SCH (09:33)
[2020-04-09] MEDS: LISINOPRIL 5 MG TABLET PO SCH ×2 (09:35→21:52)
[2020-04-09] MEDS: PANTOPRAZOLE SODIUM 40 MG PACKET.DR NG SCH (09:37)
[2020-04-09] MEDS: LACTULOSE SYRUP 20 GM/30 ML UDCUP PO SCH ×2 (09:39→21:51)
[2020-04-09] MEDS: SENNOSIDES/DOCUSATE 8.6-50 MG 1 EACH TABLET PO SCH (09:39)
[2020-04-09] MEDS: SCOPOLAMINE HYDROBROMIDE 1.5 MG PATCH.TD72 TD SCH (09:40)
[2020-04-09 09:57] LABS: ABSOLUTE BASOPHILS # (AUTO) 0.2 10^3/uL (0.0-0.2); ABSOLUTE EOSINOPHILS # (AUTO) 0.9 10^3/uL (0.0-0.6); ABSOLUTE NEUT (AUTO) 11.5 10^3/uL (1.7-8.2); BASOPHILS % (AUTO) 1.2 % (0-2); EOSINOPHILS % (AUTO) 6.4 % (0-6); HEMATOCRIT 26.2 % (37.9-51.0); HEMOGLOBIN 8.5 g/dL (13.5-17.0); LYMPHOCYTES % (AUTO) 6.7 % (13-45); MEAN CORPUSCULAR HEMOGLOBIN 27.5 pg (27.0-33.4); MEAN CORPUSCULAR HGB CONC 32.5 g/dL (32.0-36.0); MEAN CORPUSCULAR VOLUME 85 fl (80-97); MONOCYTES % (AUTO) 6.7 % (3-13); PLATELET COUNT 475 10^3/uL (150-450); RED BLOOD COUNT 3.09 10^6/uL (4.35-5.55); RED CELL DISTRIBUTION WIDTH 18.1 % (11.5-14.0); TOTAL CELLS COUNTED % (AUTO) 100 %; WHITE BLOOD COUNT 14.6 10^3/uL (4.0-10.5)
--- NOTE | 2020-04-09 09:58 | PDOC PROGRESS REPORT ---
Subjective Progress Note for:: 04/09/20 Subjective:: 59-year-old male, history of poorly controlled DM 2, HTN, CHF, narcotic dependence from chronic arthritis, CKD recently admitted to [facility] on 01/05/2020 for ZURDO and hyperkalemia and was discharged on 01/11/2020. Patient then returned to the ED on 01/15/2020 and was admitted for nausea vomiting associated with fatigue and dizziness. Troponins were elevated at that time with a proBNP of 29,000. During his hospital stay he was treated for pneumonia and hypoxemia which resolved. He also had a non-ST elevated MD which was thought to be related to demand ischemia in the setting of pneumonia and sepsis with poor clearance of troponins related to his CKD. Baseline creatinine is 3.2. Patient was discharged again on 01/19/2020 and returned to the emergency department on 01/23/2020 complaining of orthostatic hypotension, persistent dizziness, fever and shortness of breath. proBNP was again elevated to 17,700, Creatinine seems to be only mildly elevated from baseline. While in the ED, patient became hypotensive to 90/60 with increased O2 requirements and at one point had become unresponsive. He was placed on BiPAP which improved his respiratory status and he is now more awake and alert. He was given 2 L of LR and started on cefepime and Levaquin. Critical care was consulted to evaluate patient for admission to the intensive care unit. We will admit him to the ICU for further work-up and treatment given his respiratory and hemodynamic instability. 04/09/2020-patient is comfortably sleeping in the bed. Trach collar in place. Not connected to the vent. Denies any problems. As per the nurse patient is refusing vital signs refusing the lab work at this time. If he is able to have a modified barium swallow today. But he agreed to do modified him barium swallow during this week. Reason For Visit: HYPOXEMIC RESPIRATORY FAILURE, HEMODYNAMIC Physical Exam Vital Signs: Temp Pulse Resp BP Pulse Ox 98.2 F 96 18 124/72 92 04/08/20 16:44 04/09/20 07:00 04/08/20 16:44 04/08/20 16:44 04/08/20 20:14 Intake & Output 04/08/20 04/09/20 04/10/20 06:59 06:59 06:59 Intake Total 1460 1881 1000 Output Total 1950 1795 Balance -331 15 0046 Weight 66.6 kg 64.9 kg 64.9 kg General appearance: PRESENT: no acute distress, cooperative Head exam: PRESENT: atraumatic Eye exam: PRESENT: conjunctiva pale, PERRLA Ear exam: PRESENT: normal external ear exam Mouth exam: PRESENT: moist, tongue midline Neck exam: PRESENT: tracheostomy, other. ABSENT: lymphadenopathy, tenderness, thyromegaly Respiratory exam: PRESENT: decreased breath sounds Cardiovascular exam: PRESENT: RRR. ABSENT: diastolic murmur, rubs, systolic murmur GI/Abdominal exam: PRESENT: normal bowel sounds, soft. ABSENT: distended, guarding, mass, organolmegaly, rebound, tenderness Rectal exam: PRESENT: deferred Extremities exam: PRESENT: full ROM. ABSENT: calf tenderness, clubbing, pedal edema Neurological exam: PRESENT: alert, awake, oriented to person, oriented to place, oriented to time, oriented to situation, CN II-XII grossly intact. ABSENT: motor sensory deficit Results Laboratory Results: 04/09/20 06:26 04/09/20 04/09/20 06:26 06:26 WBC Cancelled RBC Cancelled Hgb Cancelled Hct Cancelled MCV Cancelled MCH Cancelled MCHC Cancelled RDW Cancelled Plt Count Cancelled Seg Neutrophils % Cancelled Sodium 137.5 Potassium 3.9 Chloride 107 Carbon Dioxide 26 Anion Gap 5 BUN 12 Creatinine 0.85 Est GFR ( Amer) > 60 Glucose 114 H Calcium 8.2 L Magnesium 2.5 H 01/24/20 01/24/20 01/24/20 00:03 00:03 04:20 Creatine Kinase 80 CK-MB (CK-2) 0.63 Troponin I 0.132 0.133 NT-Pro-B Natriuret Pep 60864 H 01/24/20 01/24/20 01/24/20 10:43 17:19 23:06 Creatine Kinase CK-MB (CK-2) Troponin I 0.114 0.079 0.075 NT-Pro-B Natriuret Pep 68898 H 01/30/20 01/31/20 02/01/20 03:45 05:39 06:14 Creatine Kinase CK-MB (CK-2) Troponin I NT-Pro-B Natriuret Pep 76978 H 88453 H 02355 H 02/02/20 02/27/20 02/27/20 04:24 08:12 08:12 Creatine Kinase 33 L CK-MB (CK-2) 2.16 Troponin I 0.013 NT-Pro-B Natriuret Pep 40697 H 02/27/20 02/28/20 02/29/20 08:12 05:44 05:35 Creatine Kinase CK-MB (CK-2) Troponin I NT-Pro-B Natriuret Pep 32100 H 04630 H 55053 H 03/02/20 03/03/20 03/11/20 05:44 05:00 04:33 Creatine Kinase CK-MB (CK-2) Troponin I NT-Pro-B Natriuret Pep 56598 H 44238 H 28657 H 03/13/20 03/15/20 03/25/20 08:40 08:44 08:40 Creatine Kinase CK-MB (CK-2) Troponin I 0.020 NT-Pro-B Natriuret Pep 46022 H 88533 H Impressions: Modified Barium Swallow 03/27/20 00:00 IMPRESSION: ASPIRATION WITH ALL CONSISTENCIES, HOWEVER SOMEWHAT IMPROVED. PLEASE SEE SPEECH PATHOLOGIST REPORT FOR OTHER FINDINGS AND RECOMMENDATIONS. Chest X-Ray 03/30/20 00:00 IMPRESSION: Worsening sepsis or edema. KUB X-Ray 03/31/20 00:00 IMPRESSION: Status post placement of enteric tube with distal tip in the expected location of the stomach. Assessment and Plan - Diagnosis (1) Acute respiratory failure due to severe acute respiratory syndrome coronavirus 2 (SARS-CoV-2) infection Is this a current diagnosis for this admission?: Yes Plan: - Significant hypoxic/hypercarbic respiratory failure secondary to COVID-19 pn eumonia. - Repeat COVID-19 test on 03/04/2020 showed was negative. Infection is likely resolved. - Required prolonged intubation and mechanical ventilation and eventually had to get Tracheostomy done on 03/14/2020 by ENT. - currently on tracheostomy collar 6L at 50% FIO2 during daytime and bipap at night - currently 95% on trache collar - would continue with O2 support with trach collar and bipap PRN 04/09/2020-patient admitted with acute respiratory failure found to have COVID-19 positive. Patient has prolonged intubation in the ICU. Repeat COVID test on 1719 came back negative. Presently has a tracheostomy that was done on 03/14/2020 by ENT. Pulse ox this morning is 92% on trach. In the morning he is on 6 L of oxygen at 50% FiO2. Patient is on BiPAP at night. Currently not on antibiotics Vanco trough is 22.3. (2) Acute metabolic encephalopathy Is this a current diagnosis for this admission?: Yes Plan: Secondary to #1 04/09/2020-acute metabolic encephalopathy secondary to acute respiratory failure resolved. (3) Acute CHF Qualifiers: Heart failure type: unspecified Qualified Code(s): I50.9 - Heart failure, unspecified Is this a current diagnosis for this admission?: Yes Plan: Inactive 04/09/2020-echocardiogram done on 03/27/2020-EF is 35 to 40%. Left ventricular systolic function moderately reduced. at the Time of my examination patient is not in fluid overload. (4) Acute blood loss anemia Is this a current diagnosis for this admission?: Yes Plan: 04/09/2020-hemoglobin on 03/07 is 8.7. Patient has anemia of chronic disease due to multiple comorbidities. (5) Severe sepsis without septic shock Is this a current diagnosis for this admission?: Yes Plan: Secondary to COVID pneumonia. Resolved (6) GI bleed not requiring more than 4 units of blood in 24 hours, ICU, or surgery Is this a current diagnosis for this admission?: Yes Plan: Guaiac positive stool. Will need to monitor for increased blood loss. Hgb overall stable. 04/09/2020-latest hemoglobin is 8.7. Stable. (7) Acute kidney injury superimposed on chronic kidney disease Is this a current diagnosis for this admission?: Yes Plan: Resolved 04/09/2020-today's creatinine is 0.85 with estimated GFR more than 60. Acute kidney injury is resolved. (8) Leukocytosis Qualifiers: Leukocytosis type: unspecified Qualified Code(s): D72.829 - Elevated white blood cell count, unspecified Is this a current diagnosis for this admission?: Yes Plan: White blood cell count increased slightly from 3 days ago. Will decrease Decadron and follow. 04/09/2020-WBC count is normalized patient is not on Decadron at this time. - Plan Summary Summary: 04/03/2020 The patient has been asking for ice chips and now he wants Jell-O. I reminded him that he has failed 2 modified barium swallows at this point. The patient understands the risk but wishes to try Jello and Ice chips despite abnormal MBS. I wrote out very clearly the risks and he understood. He even wrote that if he develops problems or recurrent pneumonia he wants to stop treatment. I certainly will need to further delineate this but I think he understands the risks of trying ice chips. He still has creamy sputum in the suction tubing. His white blood cell count was coming down on the meropenem. His last serum chemistries were unremarkable. Unfortunately he continues to refuse a PEG tube. I did speak with speech therapy. They will be seeing him today. The second MBS was slightly better than the first. We may likely get a third MBS tomorrow or Wednesday to document any progress or lack thereof. He certainly has experienced significant weight loss but he refuses to allow us to provide proper nutrition. We will continue the D5 normal saline to provide some calories. 04/04/2020 He is tolerating ice chips but failed eating Jell-O. Consider another modified barium swallow to see if there is any progress. Despite explained to the patient that without nutrition is not going to get better he still declines a PEG tube. He has a perfectly functioning GI tract and we need to try and use this instead of just administering TPN. His anemia persists. His hemoglobin was 7.9 today. That is consistent with his last several blood tests. He has 1 more day of meropenem. We will then monitor him off of antibiotics. I will discuss with psychiatry. He seems to comprehend his decisions. He is seemingly making decisions that we will keep him in the hospital but this is just my opinion. We may need to have an ethics consult as he is making disposition extremely difficult and not helping himself with regards to recovery. 04/05/2020 Respiratory failure-I deflated the patient's cuff and held my finger over the tracheostomy and he was able to talk. His breathing was comfortable. I explained to the nurse that we will do trials of cuff down for several hours. We can then resume cuff up if the patient gets short of breath or in distress. I believe he will do well with the cuff down. If he continues to do well then we can swap out for a cuffless trach. I also explained that they need to be a ggressive in cleaning the inner cannula. The patient is quite pleased being able to talk. Dysphagia-the patient states that he vomited with lemon Jell-O because of the taste not because of the texture. He is doing well with ice chips. He wants to try wynn Jell-O and ice cream. Once again I reviewed the fact that if he gets another pneumonia he will from it. He accepts that risk. Once again I asked about a PEG tube. He states that he does not want a PEG tube. He wants to begin eating. Unfortunately he declined working with speech therapy today. Pneumonia-he has 2 more days on his IV meropenem. We will continue to monitor. I will discuss further with the patient that if he gets pneumonia again that it is not reasonable to treat aggressively given his course. Hypertension-reasonable control. Continue current medications. Anemia-likely due to the prolonged illness. Today is day 72 of his hospitalization. He has not eaten in some time. Consider iron supplement. When he does begin swallowing definitely will add vitamins and iron. 04/06/2020 Cuff is been deflated since yesterday. He has not needed ventilatory support. He speaks easily by occluding the trach. Consider downsizing to a cuffless trach. Dysphagia-we are going to try and advance his diet slightly. He has done well with ice cream, lemon ice and chicken broth. We are going to try mesh potatoes and gravy. I explained to him that there is still significant risk of aspiration. He is aware of this. We are going to try and develop a strong cough to help him protect his airway. IV antibiotics will be completed shortly. Will monitor closely for any signs of reinfection. The patient is pleased with his progress. He understands that he also has to work with physical therapy to help his recovery. Need to remove sutures from tracheostomy. 04/07/2020 The patient has not needed the ventilator and has had his cuff down on trach collar for 3 days now. I will likely change him to a cuffless trach tomorrow. I will discuss this with the patient. With a cuffless trach he would have to have his trach replaced if he needed to go on the ventilator. He is still aspirating and will discuss the treatment plan if he were to get aspiration pneumonia again. His blood pressure was low today. He was up in the chair. Since he has not been out of bed for many weeks this is not surprising. We will adjust his medications appropriately. He has been working with physical therapy as he understands this is going to benefit him in the long run. Of note the patient's magnesium was low. I have ordered intravenous supplement. 04/08/2020 Still slightly low magnesium. I will order additional IV magnesium. When his swallow improves will change to oral dosing. Respiratory failure-the patient has been off of the ventilator for 4 days now. I changed him to a fenestrated cuffless #8 Shiley today. We have a button to occlude the trach so he can talk. I explained that he needs to develop a strong cough. It is a good sign that his voice is so strong. Dysphagia-since he has done very well over the weekend I believe repeating a modified barium study would be helpful this week. I will discuss with speech therapy. Anemia-the patient is still anemic. I will give him a series of B12 shots and a dose of iron sucrose. As his diet improves his anemia should improve as well. Pneumonia-he has been off of antibiotics for several days. Will monitor vitals and white blood cell count closely. I believe his swallow is getting stronger and his aspiration will improve. - Time Anticipated Discharge Disposition: [facility] Facility Anticipated Discharge Timeframe: within 72 hours
[2020-04-09] MEDS ORDERED: IRON SUCROSE COMPLEX INJ/PF 100 MG/5 ML SDV IV SCH (12:00)
[2020-04-09] MEDS: INSULIN GLARGINE,HUM.REC.ANLOG 1,000 UNIT/10 ML VIAL SUBCUT SCH (12:03)
[2020-04-09] MEDS ORDERED: MORPHINE SULFATE 10 MG/ML INJ IV PRN (21:24)
[2020-04-10] MEDS: INSULIN LISPRO 100 UNIT/ML 3 ML VIAL SUBCUT SCH ×4 (07:53→21:13)
[2020-04-10] MEDS: PROMETHAZINE HCL INJ 25 MG/1 ML VIAL IV PRN ×2 (08:01→15:45)
[2020-04-10] MEDS: DIPHENHYDRAMINE HCL 50 MG/ML VIAL IV PRN ×3 (08:04→21:57)
[2020-04-10] MEDS: INSULIN GLARGINE,HUM.REC.ANLOG 1,000 UNIT/10 ML VIAL SUBCUT SCH (09:20)
[2020-04-10 09:29] LABS: ABSOLUTE BASOPHILS # (AUTO) 0.1 10^3/uL (0.0-0.2); ABSOLUTE EOSINOPHILS # (AUTO) 0.5 10^3/uL (0.0-0.6); ABSOLUTE LYMPHOCYTES (AUTO) 1.4 10^3/uL (0.5-4.7); ABSOLUTE MONOCYTES (AUTO) 1.1 10^3/uL (0.1-1.4); ABSOLUTE NEUT (AUTO) 14.5 10^3/uL (1.7-8.2); BASOPHILS % (AUTO) 0.8 % (0-2); EOSINOPHILS % (AUTO) 3.1 % (0-6); HEMATOCRIT 27.5 % (37.9-51.0); HEMOGLOBIN 9.4 g/dL (13.5-17.0); LYMPHOCYTES % (AUTO) 8.1 % (13-45); MEAN CORPUSCULAR HEMOGLOBIN 28.7 pg (27.0-33.4); MEAN CORPUSCULAR HGB CONC 34.1 g/dL (32.0-36.0); MEAN CORPUSCULAR VOLUME 84 fl (80-97); MONOCYTES % (AUTO) 6.3 % (3-13); RED BLOOD COUNT 3.27 10^6/uL (4.35-5.55); RED CELL DISTRIBUTION WIDTH 18.5 % (11.5-14.0); SEGMENTED NEUTROPHILS % (AUTO) 81.7 % (42-78); TOTAL CELLS COUNTED % (AUTO) 100 %; WHITE BLOOD COUNT 17.8 10^3/uL (4.0-10.5)
[2020-04-10 09:59] LABS: PLATELET COUNT 412 10^3/uL (150-450)
--- NOTE | 2020-04-10 10:48 | PDOC PROGRESS REPORT ---
Subjective Progress Note for:: 04/10/20 Subjective:: 59-year-old male, history of poorly controlled DM 2, HTN, CHF, narcotic dependence from chronic arthritis, CKD recently admitted to [facility] on 01/05/2020 for ZURDO and hyperkalemia and was discharged on 01/11/2020. Patient then returned to the ED on 01/15/2020 and was admitted for nausea vomiting associated with fatigue and dizziness. Troponins were elevated at that time with a proBNP of 29,000. During his hospital stay he was treated for pneumonia and hypoxemia which resolved. He also had a non-ST elevated OR which was thought to be related to demand ischemia in the setting of pneumonia and sepsis with poor clearance of troponins related to his CKD. Baseline creatinine is 3.2. Patient was discharged again on 01/19/2020 and returned to the emergency department on 01/23/2020 complaining of orthostatic hypotension, persistent dizziness, fever and shortness of breath. proBNP was again elevated to 17,700, Creatinine seems to be only mildly elevated from baseline. While in the ED, patient became hypotensive to 90/60 with increased O2 requirements and at one point had become unresponsive. He was placed on BiPAP which improved his respiratory status and he is now more awake and alert. He was given 2 L of LR and started on cefepime and Levaquin. Critical care was consulted to evaluate patient for admission to the intensive care unit. We will admit him to the ICU for further work-up and treatment given his respiratory and hemodynamic instability. 04/09/2020-patient is comfortably sleeping in the bed. Trach collar in place. Not connected to the vent. Denies any problems. As per the nurse patient is refusing vital signs refusing the lab work at this time. If he is able to have a modified barium swallow today. But he agreed to do modified him barium swallow during this week. 04/10/2020-patient went for modified barium swallow. Speech therapy is recommending nectar thickened liquids. No acute events the last 24 hours. Afebrile. WBC count is going up to 17,800 today. Patient is not on steroids at this time. Trach collar in place. Reason For Visit: HYPOXEMIC RESPIRATORY FAILURE, HEMODYNAMIC Physical Exam Vital Signs: Temp Pulse Resp BP Pulse Ox 97.6 F 80 19 121/70 95 04/10/20 09:26 04/10/20 07:15 04/10/20 07:15 04/10/20 07:15 04/10/20 09:13 Intake & Output 04/09/20 04/10/20 04/11/20 06:59 06:59 06:59 Intake Total 1881 1504 Output Total 1795 700 Balance 86 804 Weight 64.9 kg 64.7 kg General appearance: PRESENT: no acute distress, thin Head exam: PRESENT: atraumatic Eye exam: PRESENT: PERRLA Mouth exam: PRESENT: moist, tongue midline Teeth exam: PRESENT: poor dentation Neck exam: PRESENT: tracheostomy, other Respiratory exam: PRESENT: decreased breath sounds Cardiovascular exam: PRESENT: RRR. ABSENT: diastolic murmur, rubs, systolic murmur GI/Abdominal exam: PRESENT: normal bowel sounds, soft. ABSENT: distended, guarding, mass, organolmegaly, rebound, tenderness Rectal exam: PRESENT: deferred Extremities exam: PRESENT: full ROM. ABSENT: calf tenderness, clubbing, pedal edema Neurological exam: PRESENT: alert, awake, oriented to person, oriented to place, oriented to time, oriented to situation, CN II-XII grossly intact. ABSENT: motor sensory deficit Psychiatric exam: PRESENT: appropriate affect, normal mood. ABSENT: homicidal ideation, suicidal ideation Results Laboratory Results: 04/10/20 08:55 04/09/20 06:26 04/10/20 08:55 WBC 17.8 H RBC 3.27 L Hgb 9.4 L Hct 27.5 L MCV 84 MCH 28.7 MCHC 34.1 RDW 18.5 H Plt Count 412 Seg Neutrophils % 81.7 H 01/24/20 01/24/20 01/24/20 00:03 00:03 04:20 Creatine Kinase 80 CK-MB (CK-2) 0.63 Troponin I 0.132 0.133 NT-Pro-B Natriuret Pep 27983 H 01/24/20 01/24/20 01/24/20 10:43 17:19 23:06 Creatine Kinase CK-MB (CK-2) Troponin I 0.114 0.079 0.075 NT-Pro-B Natriuret Pep 75597 H 01/30/20 01/31/20 02/01/20 03:45 05:39 06:14 Creatine Kinase CK-MB (CK-2) Troponin I NT-Pro-B Natriuret Pep 42692 H 41073 H 15332 H 02/02/20 02/27/20 02/27/20 04:24 08:12 08:12 Creatine Kinase 33 L CK-MB (CK-2) 2.16 Troponin I 0.013 NT-Pro-B Natriuret Pep 76589 H 02/27/20 02/28/20 02/29/20 08:12 05:44 05:35 Creatine Kinase CK-MB (CK-2) Troponin I NT-Pro-B Natriuret Pep 22364 H 12464 H 81549 H 03/02/20 03/03/20 03/11/20 05:44 05:00 04:33 Creatine Kinase CK-MB (CK-2) Troponin I NT-Pro-B Natriuret Pep 49223 H 24779 H 38571 H 03/13/20 03/15/20 03/25/20 08:40 08:44 08:40 Creatine Kinase CK-MB (CK-2) Troponin I 0.020 NT-Pro-B Natriuret Pep 17205 H 68658 H Impressions: Chest X-Ray 03/30/20 00:00 IMPRESSION: Worsening sepsis or edema. KUB X-Ray 03/31/20 00:00 IMPRESSION: Status post placement of enteric tube with distal tip in the expected location of the stomach. Assessment and Plan - Diagnosis (1) Acute respiratory failure due to severe acute respiratory syndrome coronavirus 2 (SARS-CoV-2) infection Is this a current diagnosis for this admission?: Yes Plan: - Significant hypoxic/hypercarbic respiratory failure secondary to COVID-19 pneumonia. - Repeat COVID-19 test on 03/04/2020 showed was negative. Infection is likely resolved. - Required prolonged intubation and mechanical ventilation and eventually had to get Tracheostomy done on 03/14/2020 by ENT. - currently on tracheostomy collar 6L at 50% FIO2 during daytime and bipap at night - currently 95% on trache collar - would continue with O2 support with trach collar and bipap PRN 04/09/2020-patient admitted with acute respiratory failure found to have COVID-19 positive. Patient has prolonged intubation in the ICU. Repeat COVID test on 1719 came back negative. Presently has a tracheostomy that was done on 03/14/2020 by ENT. Pulse ox this morning is 92% on trach. In the morning he is on 6 L of oxygen at 50% FiO2. Patient is on BiPAP at night. Currently not on antibiotics Vanco trough is 22.3. 04/10/2020-patient has a tracheostomy. Pulse ox is 94% stable. Examination chest bilateral dose decreased no wheezing no crepitations present. (2) Acute metabolic encephalopathy Is this a current diagnosis for this admission?: Yes Plan: Secondary to #1 04/09/2020-acute metabolic encephalopathy secondary to acute respiratory failure resolved. (3) Acute CHF Qualifiers: Heart failure type: unspecified Qualified Code(s): I50.9 - Heart failure, unspecified Is this a current diagnosis for this admission?: Yes Plan: Inactive 04/09/2020-echocardiogram done on 03/27/2020-EF is 35 to 40%. Left ventricular systolic function moderately reduced. at the Time of my examination patient is not in fluid overload. (4) Acute blood loss anemia Is this a current diagnosis for this admission?: Yes Plan: 04/09/2020-hemoglobin on 03/07 is 8.7. Patient has anemia of chronic disease due to multiple comorbidities. 04/10/2020-latest hemoglobin today is 9.4. Stable. (5) Severe sepsis without septic shock Is this a current diagnosis for this admission?: Yes Plan: Secondary to COVID pneumonia. Resolved (6) GI bleed not requiring more than 4 units of blood in 24 hours, ICU, or surgery Is this a current diagnosis for this admission?: Yes Plan: Guaiac positive stool. Will need to monitor for increased blood loss. Hgb overall stable. 04/09/2020-latest hemoglobin is 8.7. Stable. (7) Acute kidney injury superimposed on chronic kidney disease Is this a current diagnosis for this admission?: Yes Plan: Resolved 04/09/2020-today's creatinine is 0.85 with estimated GFR more than 60. Acute kidney injury is resolved. (8) Leukocytosis Qualifiers: Leukocytosis type: unspecified Qualified Code(s): D72.829 - Elevated white blood cell count, unspecified Is this a current diagnosis for this admission?: Yes Plan: White blood cell count increased slightly from 3 days ago. Will decrease Decadron and follow. 04/09/2020-WBC count is normalized patient is not on Decadron at this time. 04/10/2020-WBC count is 17,800 today. Afebrile. Blood pressure is stable. Plan is to check the labs on daily basis. - Plan Summary Summary: 04/03/2020 The patient has been asking for ice chips and now he wants Jell-O. I reminded him that he has failed 2 modified barium swallows at this point. The patient understands the risk but wishes to try Jello and Ice chips despite abnormal MBS. I wrote out very clearly the risks and he understood. He even wrote that if he develops problems or recurrent pneumonia he wants to stop treatment. I certainly will need to further delineate this but I think he understands the risks of trying ice chips. He still has creamy sputum in the suction tubing. His white blood cell count was coming down on the meropenem. His last serum chemistries were unremarkable. Unfortunately he continues to refuse a PEG tube. I did speak with speech therapy. They will be seeing him today. The second MBS was slightly better than the first. We may likely get a third MBS tomorrow or Wednesday to document any progress or lack thereof. He certainly has experienced significant weight loss but he refuses to allow us to provide proper nutrition. We will continue the D5 normal saline to provide some calories. 04/04/2020 He is tolerating ice chips but failed eating Jell-O. Consider another modified barium swallow to see if there is any progress. Despite explained to the patient that without nutrition is not going to get better he still declines a PEG tube. He has a perfectly functioning GI tract and we need to try and use this instead of just administering TPN. His anemia persists. His hemoglobin was 7.9 today. That is consistent with his last several blood tests. He has 1 more day of meropenem. We will then monitor him off of antibiotics. I will discuss with psychiatry. He seems to comprehend his decisions. He is seemingly making decisions that we will keep him in the hospital but this is just my opinion. We may need to have an ethics consult as he is making disposition extremely difficult and not helping himself with regards to recovery. 04/05/2020 Respiratory failure-I deflated the patient's cuff and held my finger over the tracheostomy and he was able to talk. His breathing was comfortable. I explained to the nurse that we will do trials of cuff down for several hours. We can then resume cuff up if the patient gets short of breath or in distress. I believe he will do well with the cuff down. If he continues to do well then we can swap out for a cuffless trach. I also explained that they need to be aggressive in cleaning the inner cannula. The patient is quite pleased being able to talk. Dysphagia-the patient states that he vomited with lemon Jell-O because of the taste not because of the texture. He is doing well with ice chips. He wants to try wynn Jell-O and ice cream. Once again I reviewed the fact that if he gets another pneumonia he will from it. He accepts that risk. Once again I asked about a PEG tube. He states that he does not want a PEG tube. He wants to begin eating. Unfortunately he declined working with speech therapy today. Pneumonia-he has 2 more days on his IV meropenem. We will continue to monitor. I will discuss further with the patient that if he gets pneumonia again that it is not reasonable to treat aggressively given his course. Hypertension-reasonable control. Continue current medications. Anemia-likely due to the prolonged illness. Today is day 72 of his hospitalization. He has not eaten in some time. Consider iron supplement. When he does begin swallowing definitely will add vitamins and iron. 04/06/2020 Cuff is been deflated since yesterday. He has not needed ventilatory support. He speaks easily by occluding the trach. Consider downsizing to a cuffless trach. Dysphagia-we are going to try and advance his diet slightly. He has done well with ice cream, lemon ice and chicken broth. We are going to try mesh potatoes and gravy. I explained to him that there is still significant risk of aspiration. He is aware of this. We are going to try and develop a strong cough to help him protect his airway. IV antibiotics will be completed shortly. Will monitor closely for any signs of reinfection. The patient is pleased with his progress. He understands that he also has to work with physical therapy to help his recovery. Need to remove sutures from tracheostomy. 04/07/2020 The patient has not needed the ventilator and has had his cuff down on trach collar for 3 days now. I will likely change him to a cuffless trach tomorrow. I will discuss this with the patient. With a cuffless trach he would have to have his trach replaced if he needed to go on the ventilator. He is still aspirating and will discuss the treatment plan if he were to get aspiration pneumonia again. His blood pressure was low today. He was up in the chair. Since he has not been out of bed for many weeks this is not surprising. We will adjust his medications appropriately. He has been working with physical therapy as he understands this is going to benefit him in the long run. Of note the patient's magnesium was low. I have ordered intravenous supplement. 04/08/2020 Still slightly low magnesium. I will order additional IV magnesium. When his swallow improves will change to oral dosing. Respiratory failure-the patient has been off of the ventilator for 4 days now. I changed him to a fenestrated cuffless #8 Shiley today. We have a button to occlude the trach so he can talk. I explained that he needs to develop a strong cough. It is a good sign that his voice is so strong. Dysphagia-since he has done very well over the weekend I believe repeating a modified barium study would be helpful this week. I will discuss with speech therapy. Anemia-the patient is still anemic. I will give him a series of B12 shots and a dose of iron sucrose. As his diet improves his anemia should improve as well. Pneumonia-he has been off of antibiotics for several days. Will monitor vitals and white blood cell count closely. I believe his swallow is getting stronger and his aspiration will improve. - Time Anticipated Discharge Disposition[facility] Antic[facility]ated Discharge Timeframe: 1 week
[2020-04-10] MEDS: LACTULOSE SYRUP 20 GM/30 ML UDCUP PO SCH ×2 (10:55→21:13)
[2020-04-10] MEDS: CYANOCOBALAMIN (VITAMIN B-12) INJ 1000 MCG/1 ML VIAL IM SCH (11:12)
[2020-04-10] MEDS: ENOXAPARIN SODIUM INJ 40 MG/0.4 ML DISP.SYRIN SUBCUT SCH (11:12)
[2020-04-10] MEDS: LISINOPRIL 5 MG TABLET PO SCH ×2 (11:13→21:15)
[2020-04-10] MEDS: METOPROLOL SUCCINATE 25 MG TAB.SR.24H PO SCH (11:13)
[2020-04-10] MEDS: FUROSEMIDE 20 MG TABLET PO SCH (11:14)
[2020-04-10] MEDS: THIAMINE HCL 100 MG TABLET PO SCH (11:15)
[2020-04-10] MEDS: SENNOSIDES/DOCUSATE 8.6-50 MG 1 EACH TABLET PO SCH (11:25)
--- NOTE | 2020-04-10 11:26 | RADIOLOGY REPORT (SQ) ---
EXAM DESCRIPTION: COOKIE SWALLOW IMAGES COMPLETED DATE/TIME: 04/10/2020 9:59 am REASON FOR STUDY: dysphagia COMPARISON: Cookie swallow 03/26/2020. TECHNIQUE: Videofluoroscopic swallowing examination was performed in conjunction with speech patholo gy. Videofluoroscopic imaging was obtained and reviewed and these are the findings: RADIATION DOSE: Fluoro time 4.5 minutes 1 images saved to PACS. LIMITATIONS: None FINDINGS: The patient was brought into the fluoro room and placed upright on a modified barium swall ow chair. The patient was then given multiple consistencies mixed with barium to swallow under live fluoroscopic video guidance. According to the Speech Pathologist there was aspiration seen with thin barium. All other consistencies were swallowed without incident. Significant residuals were seen i n the vallecula. Please refer to the speech pathology report for further details. IMPRESSION: TRACHEAL ASPIRATION WITH THIN BARIUM. PLEASE SEE SPEECH PATHOLOGIST REPORT FOR OTHER FIN DINGS AND RECOMMENDATIONS. COMMENT: None Quality ID [id number]: Final reports for procedures using fluoroscopy that document radiation exposure lyn oswaldo, or exposure time and number of fluorographic images (if radiation exposure indices are not avail able) TECHNICAL DOCUMENTATION: JOB ID: [id number] 2010 [employer]- All Rights Reserved Reading location - IP/workstation name: [email or web address] [id number]
[2020-04-10] MEDS: PANTOPRAZOLE SODIUM 40 MG PACKET.DR NG SCH (11:28)
--- NOTE | 2020-04-10 12:11 | ST Inp Modified Barium Swallow ---
Medical Diagnosis - Medical Diagnoses Medical Diagnosis Description & ICD-10 Code(s): acute respiratory failure, tracheostomy placement - ICD-10 Tx Diagnosis Coding (1) Dysphagia ICD-10 Code(s): R13.10 - DYSPHAGIA, UNSPECIFIED (2) Acute respiratory failure due to severe acute respiratory syndrome coronavirus 2 (SARS-CoV-2) infection ICD-10 Code(s): U07.1 - COVID-19; J96.00 - ACUTE RESPIRATORY FAILURE, UNSP W HYPOXIA OR HYPERCAPNIA (3) Tracheostomy in place ICD-10 Code(s): Z93.0 - TRACHEOSTOMY STATUS ST Inpatient MBS - General Date: 04/10/20 - History -: Medical - This is the patient's 3rd MBSS following placement of tracheostomy. Patient has had significant aspiration and residue with all trials given at previous 2 studies. Patient has been eating by mouth due to refusing PEG or NG tube against medical staff recommendations and education regarding aspiration. The patient has also been inconsistently compliant with dysphagia therapy. Medications: Medications Reviewed Allergies: Refer to medical record - Subjective Current Nutritional Means: PO - soft, thin liquids Current Symptoms: Aspiration - observed on 2 prior studies Pain: Patient reports, 0/5 - Objective Assessment: Upright, Left Lateral - Food Trials Food Trials Used: Thin liquids, Moraida thick liquids, Pureed, Regular The Patient: Was Able to Self Feed - Assessment Labial Function: Within Normal Limits Lingual Function: Within Normal Limits Mandibular Function: Within Normal Limits Velo-Pharyngeal Function: Unremarkable Laryngeal Function: weak voicing - d/t trach - Pharyngeal Stage Initiation of Pharyngeal Stage: Normal Decreased Laryngeal Elevation: Yes Reduced Velo-Pharyngeal Closure: no Reduced Pressure Generation: Yes Pre-Swallowing Pooling in Valleculae: Moderate Pre-Swallowing Pooling in Pyriforms: Mild Reduced Thyro-Hyiod Approximation: Yes Reduced Epiglottic Excursion: Yes Multiple Swallows With: Ineffective Clearance Post Swallow Residuals in Valleculae: Significant Post Swallow Residuals in Pyriforms: Mild - Impression/Summary Laryngeal Penetration: Yes - penetration seen with thin liquids, as well as residuals from solids, no cough reaction Tracheal Aspiration: yes - seen with thin liquids on the swallow and after the swallow, weak cough reaction inconsistently Ineffective Compensatory Strategies: throat clear & reswallow Patient Presents With: Pharyngeal stage dysph., Severe Risk of Aspiration: Moderate - with dietary modifications Risk Due To: Patient presents with severe pharyngeal phase dysphagia, characterized by poor epiglottic inversion, poor laryngeal elevation, and poor pharyngeal constriction. This resulted in poor airway protection which allowed thin liquids to enter the airway on the swallow and be aspirated, this also allowed for penetration of other residuals after the swallow. With puree trial, significant residue seen in valleculae after initial swallow (approximately 40% of bolus), liquid wash helped reduce but did not eliminate residue. With cracker trial, patient demonstrated significant valleculae residue, 100% of bolus remained. Additional swallows did not clear residue, liquid wash reduced but did not eliminate residue. Patient is at risk of aspiration on the swallow due to incomplete airway closure/protection, as well as after the swallow due to significant pharyngeal residue. This was discussed and shown to the patient during the study. - Recommendations Solid Diet Recommendations: Pureed - patient may also wish to have some pleasure feeds of soft, fork mashable solids (soft fruits, scrambled eggs, etc.) Liquid Diet Recommendations: Moraida-Thick Strict Aspitarion Precautions: Yes Dysphagia Therapy with PHILANTHROPY OFFICER: Follow Up PRN - plan to follow up x1 for continued patient education, and to see if the patient will be compliant with additional dysphagia therapy Recommended Techniques: Small Bites and Sips, Alternate Bites/Sips Other Recommendations: Patient is still at risk of aspiration on recommended diet. Patient will likely still have some aspiration events, however, this is judged to be the safest PO diet at this time as patient has repeatedly refused feeding tubes (NG, PEG). - Time Total Time: 30 Total Timed Minutes: 30
[2020-04-10] MEDS: OXYCODONE HCL IR 5 MG TABLET PO PRN ×2 (16:07→21:15)
[2020-04-10] MEDS: OXYCODONE-ACETAMINOPHEN 5-325 MG TABLET PO PRN (21:15)
[2020-04-11] MEDS: DIPHENHYDRAMINE HCL 50 MG/ML VIAL IV PRN ×3 (04:02→22:22)
[2020-04-11] MEDS: OXYCODONE-ACETAMINOPHEN 5-325 MG TABLET PO PRN ×3 (06:12→22:30)
[2020-04-11] MEDS: OXYCODONE HCL IR 5 MG TABLET PO PRN ×3 (06:12→22:30)
[2020-04-11] MEDS: INSULIN LISPRO 100 UNIT/ML 3 ML VIAL SUBCUT SCH ×4 (09:54→22:00)
[2020-04-11] MEDS: SENNOSIDES/DOCUSATE 8.6-50 MG 1 EACH TABLET PO SCH (09:55)
[2020-04-11] MEDS: ENOXAPARIN SODIUM INJ 40 MG/0.4 ML DISP.SYRIN SUBCUT SCH (09:57)
[2020-04-11] MEDS: LISINOPRIL 5 MG TABLET PO SCH ×2 (09:59→22:22)
[2020-04-11] MEDS: THIAMINE HCL 100 MG TABLET PO SCH (09:59)
[2020-04-11] MEDS: PANTOPRAZOLE SODIUM 40 MG PACKET.DR NG SCH (10:01)
[2020-04-11] MEDS: CYANOCOBALAMIN (VITAMIN B-12) INJ 1000 MCG/1 ML VIAL IM SCH (10:02)
[2020-04-11] MEDS: FUROSEMIDE 20 MG TABLET PO SCH (10:02)
[2020-04-11] MEDS: METOPROLOL SUCCINATE 25 MG TAB.SR.24H PO SCH (10:02)
[2020-04-11] MEDS: LACTULOSE SYRUP 20 GM/30 ML UDCUP PO SCH ×2 (10:05→21:04)
[2020-04-11] MEDS: INSULIN GLARGINE,HUM.REC.ANLOG 1,000 UNIT/10 ML VIAL SUBCUT SCH (10:09)
--- NOTE | 2020-04-11 15:43 | PDOC PROGRESS REPORT ---
Subjective Progress Note for:: 04/11/20 Subjective:: 59-year-old male, history of poorly controlled DM 2, HTN, CHF, narcotic dependence from chronic arthritis, CKD recently admitted to [facility] on 01/05/2020 for ZURDO and hyperkalemia and was discharged on 01/11/2020. Patient then returned to the ED on 01/15/2020 and was admitted for nausea vomiting associated with fatigue and dizziness. Troponins were elevated at that time with a proBNP of 29,000. During his hospital stay he was treated for pneumonia and hypoxemia which resolved. He also had a non-ST elevated ID which was thought to be related to demand ischemia in the setting of pneumonia and sepsis with poor clearance of troponins related to his CKD. Baseline creatinine is 3.2. Patient was discharged again on 01/19/2020 and returned to the emergency department on 01/23/2020 complaining of orthostatic hypotension, persistent dizziness, fever and shortness of breath. proBNP was again elevated to 17,700, Creatinine seems to be only mildly elevated from baseline. While in the ED, patient became hypotensive to 90/60 with increased O2 requirements and at one point had become unresponsive. He was placed on BiPAP which improved his respiratory status and he is now more awake and alert. He was given 2 L of LR and started on cefepime and Levaquin. Critical care was consulted to evaluate patient for admission to the intensive care unit. We will admit him to the ICU for further work-up and treatment given his respiratory and hemodynamic instability. 04/09/2020-patient is comfortably sleeping in the bed. Trach collar in place. Not connected to the vent. Denies any problems. As per the nurse patient is refusing vital signs refusing the lab work at this time. If he is able to have a modified barium swallow today. But he agreed to do modified him barium swallow during this week. 04/10/2020-patient went for modified barium swallow. Speech therapy is recommending nectar thickened liquids. No acute events the last 24 hours. Afebrile. WBC count is going up to 17,800 today. Patient is not on steroids at this time. Trach collar in place. 04/11/2020-patient had a modified barium swallow. As per the recommendations he is on nectar thickened liquids. Patient is requesting for regular food. We tr ied to explain to him that there is a high risk with aspiration. Patient was quite upset and wants to leave the hospital sign AMA. Prior to leaving the hospital he wants trach to be closed. Dr. Kunz was notified he thinks patient need a trach and continuous basis at this time. I completely agree with him. Patient agreed to stay now and agreed to go to [place] [facility] if the bed is available. Reason For Visit: HYPOXEMIC RESPIRATORY FAILURE, HEMODYNAMIC Physical Exam Vital Signs: Temp Pulse Resp BP Pulse Ox 98.5 F 86 17 100/56 L 97 04/11/20 11:16 04/11/20 14:00 04/11/20 11:16 04/11/20 11:16 04/11/20 11:16 Intake & Output 04/10/20 04/11/20 04/12/20 06:59 06:59 06:59 Intake Total 1504 480 Output Total 700 1675 Balance 804 -1195 Weight 64.7 kg 66.1 kg General appearance: PRESENT: no acute distress, cooperative, thin Head exam: PRESENT: atraumatic Eye exam: PRESENT: PERRLA Ear exam: PRESENT: normal external ear exam Mouth exam: PRESENT: moist, tongue midline Neck exam: PRESENT: tracheostomy Respiratory exam: PRESENT: decreased breath sounds Cardiovascular exam: PRESENT: RRR. ABSENT: diastolic murmur, rubs, systolic murmur GI/Abdominal exam: PRESENT: normal bowel sounds, soft. ABSENT: distended, guarding, mass, organolmegaly, rebound, tenderness Rectal exam: PRESENT: deferred Extremities exam: PRESENT: full ROM. ABSENT: calf tenderness, clubbing, pedal edema Neurological exam: PRESENT: alert, awake, oriented to person, oriented to place, oriented to time, oriented to situation, CN II-XII grossly intact. ABSENT: motor sensory deficit Psychiatric exam: PRESENT: appropriate affect, normal mood. ABSENT: homicidal ideation, suicidal ideation Results Laboratory Results: 04/10/20 08:55 04/09/20 06:26 01/24/20 01/24/20 01/24/20 00:03 00:03 04:20 Creatine Kinase 80 CK-MB (CK-2) 0.63 Troponin I 0.132 0.133 NT-Pro-B Natriuret Pep 11595 H 01/24/20 01/24/20 01/24/20 10:43 17:19 23:06 Creatine Kinase CK-MB (CK-2) Troponin I 0.114 0.079 0.075 NT-Pro-B Natriuret Pep 61131 H 01/30/20 01/31/20 02/01/20 03:45 05:39 06:14 Creatine Kinase CK-MB (CK-2) Troponin I NT-Pro-B Natriuret Pep 59953 H 94494 H 61782 H 02/02/20 02/27/20 02/27/20 04:24 08:12 08:12 Creatine Kinase 33 L CK-MB (CK-2) 2.16 Troponin I 0.013 NT-Pro-B Natriuret Pep 15895 H 02/27/20 02/28/20 02/29/20 08:12 05:44 05:35 Creatine Kinase CK-MB (CK-2) Troponin I NT-Pro-B Natriuret Pep 19227 H 06821 H 93040 H 03/02/20 03/03/20 03/11/20 05:44 05:00 04:33 Creatine Kinase CK-MB (CK-2) Troponin I NT-Pro-B Natriuret Pep 27348 H 20645 H 89872 H 03/13/20 03/15/20 03/25/20 08:40 08:44 08:40 Creatine Kinase CK-MB (CK-2) Troponin I 0.020 NT-Pro-B Natriuret Pep 47081 H 10711 H Impressions: Chest X-Ray 03/30/20 00:00 IMPRESSION: Worsening sepsis or edema. KUB X-Ray 03/31/20 00:00 IMPRESSION: Status post placement of enteric tube with distal tip in the expected location of the stomach. Modified Barium Swallow 04/10/20 09:58 IMPRESSION: TRACHEAL ASPIRATION WITH THIN BARIUM. PLEASE SEE SPEECH PATHOLOGIST REPORT FOR OTHER FINDINGS AND RECOMMENDATIONS. Assessment and Plan - Diagnosis (1) Acute respiratory failure due to severe acute respiratory syndrome cor onavirus 2 (SARS-CoV-2) infection Is this a current diagnosis for this admission?: Yes Plan: - Significant hypoxic/hypercarbic respiratory failure secondary to COVID-19 pneumonia. - Repeat COVID-19 test on 03/04/2020 showed was negative. Infection is likely resolved. - Required prolonged intubation and mechanical ventilation and eventually had to get Tracheostomy done on 03/14/2020 by ENT. - currently on tracheostomy collar 6L at 50% FIO2 during daytime and bipap at night - currently 95% on trache collar - would continue with O2 support with trach collar and bipap PRN 04/09/2020-patient admitted with acute respiratory failure found to have COVID-19 positive. Patient has prolonged intubation in the ICU. Repeat COVID test on 1719 came back negative. Presently has a tracheostomy that was done on 03/14/2020 by ENT. Pulse ox this morning is 92% on trach. In the morning he is on 6 L of oxygen at 50% FiO2. Patient is on BiPAP at night. Currently not on antibiotics Vanco trough is 22.3. 04/10/2020-patient has a tracheostomy. Pulse ox is 94% stable. Examination chest bilateral dose decreased no wheezing no crepitations present. 04/11/2020-patient has a trach. On 6 L of oxygen. Pulse ox is 97%. Plan is to continue the present management at this time. (2) Acute metabolic encephalopathy Is this a current diagnosis for this admission?: Yes Plan: Secondary to #1 04/09/2020-acute metabolic encephalopathy secondary to acute respiratory failure resolved. (3) Acute CHF Qualifiers: Heart failure type: unspecified Qualified Code(s): I50.9 - Heart failure, unspecified Is this a current diagnosis for this admission?: Yes Plan: Inactive 04/09/2020-echocardiogram done on 03/27/2020-EF is 35 to 40%. Left ventricular systolic function moderately reduced. at the Time of my examination patient is not in fluid overload. 04/11/2020-patient admitted with acute CHF with EF of 35 to 40%. Patient is not in fluid overload at the time of my examination. Blood pressures are stable. (4) Acute blood loss anemia Is this a current diagnosis for this admission?: Yes Plan: 04/09/2020-hemoglobin on 03/07 is 8.7. Patient has anemia of chronic disease due to multiple comorbidities. 04/10/2020-latest hemoglobin today is 9.4. Stable. (5) Severe sepsis without septic shock Is this a current diagnosis for this admission?: Yes Plan: Secondary to COVID pneumonia. Resolved (6) GI bleed not requiring more than 4 units of blood in 24 hours, ICU, or surgery Is this a current diagnosis for this admission?: Yes Plan: Guaiac positive stool. Will need to monitor for increased blood loss. Hgb overall stable. 04/09/2020-latest hemoglobin is 8.7. Stable. (7) Acute kidney injury superimposed on chronic kidney disease Is this a current diagnosis for this admission?: Yes Plan: Resolved 04/09/2020-today's creatinine is 0.85 with estimated GFR more than 60. Acute ki dney injury is resolved. (8) Leukocytosis Qualifiers: Leukocytosis type: unspecified Qualified Code(s): D72.829 - Elevated white blood cell count, unspecified Is this a current diagnosis for this admission?: Yes Plan: White blood cell count increased slightly from 3 days ago. Will decrease Decadron and follow. 04/09/2020-WBC count is normalized patient is not on Decadron at this time. 04/10/2020-WBC count is 17,800 today. Afebrile. Blood pressure is stable. Plan is to check the labs on daily basis. - Plan Summary Summary: 04/03/2020 The patient has been asking for ice chips and now he wants Jell-O. I reminded him that he has failed 2 modified barium swallows at this point. The patient understands the risk but wishes to try Jello and Ice chips despite abnormal MBS. I wrote out very clearly the risks and he understood. He even wrote that if he develops problems or recurrent pneumonia he wants to stop treatment. I certainly will need to further delineate this but I think he understands the risks of trying ice chips. He still has creamy sputum in the suction tubing. His white blood cell count was coming down on the meropenem. His last serum chemistries were unremarkable. Unfortunately he continues to refuse a PEG tube. I did speak with speech therapy. They will be seeing him today. The second MBS was slightly better than the first. We may likely get a third MBS tomorrow or Wednesday to document any progress or lack thereof. He certainly has experienced significant weight loss but he refuses to allow us to provide proper nutrition. We will continue the D5 normal saline to provide some calories. 04/04/2020 He is tolerating ice chips but failed eating Jell-O. Consider another modified barium swallow to see if there is any progress. Despite explained to the patient that without nutrition is not going to get better he still declines a PEG tube. He has a perfectly functioning GI tract and we need to try and use this instead of just administering TPN. His anemia persists. His hemoglobin was 7.9 today. That is consistent with his last several blood tests. He has 1 more day of meropenem. We will then monitor him off of antibiotics. I will discuss with psychiatry. He seems to comprehend his decisions. He is seemingly making decisions that we will keep him in the hospital but this is j ust my opinion. We may need to have an ethics consult as he is making disposition extremely difficult and not helping himself with regards to recovery. 04/05/2020 Respiratory failure-I deflated the patient's cuff and held my finger over the tracheostomy and he was able to talk. His breathing was comfortable. I explained to the nurse that we will do trials of cuff down for several hours. We can then resume cuff up if the patient gets short of breath or in distress. I believe he will do well with the cuff down. If he continues to do well then we can swap out for a cuffless trach. I also explained that they need to be aggressive in cleaning the inner cannula. The patient is quite pleased being able to talk. Dysphagia-the patient states that he vomited with lemon Jell-O because of the taste not because of the texture. He is doing well with ice chips. He wants to try wynn Jell-O and ice cream. Once again I reviewed the fact that if he gets another pneumonia he will from it. He accepts that risk. Once again I asked about a PEG tube. He states that he does not want a PEG tube. He wants to begin eating. Unfortunately he declined working with speech therapy today. Pneumonia-he has 2 more days on his IV meropenem. We will continue to monitor. I will discuss further with the patient that if he gets pneumonia again that it is not reasonable to treat aggressively given his course. Hypertension-reasonable control. Continue current medications. Anemia-likely due to the prolonged illness. Today is day 72 of his hospitalization. He has not eaten in some time. Consider iron supplement. When he does begin swallowing definitely will add vitamins and iron. 04/06/2020 Cuff is been deflated since yesterday. He has not needed ventilatory support. He speaks easily by occluding the trach. Consider downsizing to a cuffless trach. Dysphagia-we are going to try and advance his diet slightly. He has done well with ice cream, lemon ice and chicken broth. We are going to try mesh potatoes and gravy. I explained to him that there is still significant risk of as piration. He is aware of this. We are going to try and develop a strong cough to help him protect his airway. IV antibiotics will be completed shortly. Will monitor closely for any signs of reinfection. The patient is pleased with his progress. He understands that he also has to work with physical therapy to help his recovery. Need to remove sutures from tracheostomy. 04/07/2020 The patient has not needed the ventilator and has had his cuff down on trach collar for 3 days now. I will likely change him to a cuffless trach tomorrow. I will discuss this with the patient. With a cuffless trach he would have to have his trach replaced if he needed to go on the ventilator. He is still aspi rating and will discuss the treatment plan if he were to get aspiration pneumonia again. His blood pressure was low today. He was up in the chair. Since he has not been out of bed for many weeks this is not surprising. We will adjust his medications appropriately. He has been working with physical therapy as he understands this is going to benefit him in the long run. Of note the patient's magnesium was low. I have ordered intravenous supplement. 04/08/2020 Still slightly low magnesium. I will order additional IV magnesium. When his swallow improves will change to oral dosing. Respiratory failure-the patient has been off of the ventilator for 4 days now. I changed him to a fenestrated cuffless #8 Shiley today. We have a button to occlude the trach so he can talk. I explained that he needs to develop a strong cough. It is a good sign that his voice is so strong. Dysphagia-since he has done very well over the weekend I believe repeating a modified barium study would be helpful this week. I will discuss with speech therapy. Anemia-the patient is still anemic. I will give him a series of B12 shots and a dose of iron sucrose. As his diet improves his anemia should improve as well. Pneumonia-he has been off of antibiotics for several days. Will monitor vitals and white blood cell count closely. I believe his swallow is getting stronger and his aspiration will improve. - Time Anticipated Discharge Disposition: [facility] Antic[facility]ated Discharge Timeframe: within 72 hours
[2020-04-12] MEDS: OXYCODONE HCL IR 5 MG TABLET PO PRN ×2 (06:36→22:03)
[2020-04-12] MEDS: DIPHENHYDRAMINE HCL 50 MG/ML VIAL IV PRN ×3 (06:36→22:03)
[2020-04-12] MEDS: OXYCODONE-ACETAMINOPHEN 5-325 MG TABLET PO PRN ×4 (06:37→22:02)
--- NOTE | 2020-04-12 09:50 | PDOC PROGRESS REPORT ---
Subjective Progress Note for:: 04/12/20 Subjective:: 59-year-old male, history of poorly controlled DM 2, HTN, CHF, narcotic dependence from chronic arthritis, CKD recently admitted to [facility] on 01/05/2020 for ZURDO and hyperkalemia and was discharged on 01/11/2020. Patient then returned to the ED on 01/15/2020 and was admitted for nausea vomiting associated with fatigue and dizziness. Troponins were elevated at that time with a proBNP of 29,000. During his hospital stay he was treated for pneumonia and hypoxemia which resolved. He also had a non-ST elevated TN which was thought to be related to demand ischemia in the setting of pneumonia and sepsis with poor clearance of troponins related to his CKD. Baseline creatinine is 3.2. Patient was discharged again on 01/19/2020 and returned to the emergency department on 01/23/2020 complaining of orthostatic hypotension, persistent dizziness, fever and shortness of breath. proBNP was again elevated to 17,700, Creatinine seems to be only mildly elevated from baseline. While in the ED, patient became hypotensive to 90/60 with increased O2 requirements and at one point had become unresponsive. He was placed on BiPAP which improved his respiratory status and he is now more awake and alert. He was given 2 L of LR and started on cefepime and Levaquin. Critical care was consulted to evaluate patient for admission to the intensive care unit. We will admit him to the ICU for further work-up and treatment given his respiratory and hemodynamic instability. 04/09/2020-patient is comfortably sleeping in the bed. Trach collar in place. Not connected to the vent. Denies any problems. As per the nurse patient is refusing vital signs refusing the lab work at this time. If he is able to have a modified barium swallow today. But he agreed to do modified him barium swallow during this week. 04/10/2020-patient went for modified barium swallow. Speech therapy is recommending nectar thickened liquids. No acute events the last 24 hours. Afebrile. WBC count is going up to 17,800 today. Patient is not on steroids at this time. Trach collar in place. 04/11/2020-patient had a modified barium swallow. As per the recommendations he is on nectar thickened liquids. Patient is requesting for regular food. We tr ied to explain to him that there is a high risk with aspiration. Patient was quite upset and wants to leave the hospital sign AMA. Prior to leaving the hospital he wants trach to be closed. Dr. Kunz was notified he thinks patient need a trach and continuous basis at this time. I completely agree with him. Patient agreed to stay now and agreed to go to [place] [facility] if the bed is available. 2520-patient to eat regular food, wants a trach tube removed. I explained to him that he is a high risk for aspiration even with the nectar thickened liquids. And also told him is not possible to remove the trach because he may went into respiratory failure with a trach. Patient got upset with me he wants me to leave the room. Later on he called patient advocate requesting another physician. In the meantime we will continue the present management. Presently on nectar thickened liquids. Reason For Visit: HYPOXEMIC RESPIRATORY FAILURE, HEMODYNAMIC Physical Exam Vital Signs: Temp Pulse Resp BP Pulse Ox 97.4 F 77 16 112/62 97 04/12/20 08:16 04/12/20 08:16 04/12/20 08:16 04/12/20 08:16 04/12/20 08:16 Intake & Output 04/11/20 04/12/20 04/13/20 06:59 06:59 06:59 Intake Total 480 Output Total 1675 1225 Balance -1195 -1225 Weight 66.1 kg 66 kg General appearance: PRESENT: no acute distress, thin Head exam: PRESENT: atraumatic Eye exam: PRESENT: PERRLA Neck exam: PRESENT: tracheostomy Respiratory exam: PRESENT: decreased breath sounds Cardiovascular exam: PRESENT: RRR. ABSENT: diastolic murmur, rubs, systolic murmur Pulses: PRESENT: normal dorsalis pedis pul GI/Abdominal exam: PRESENT: normal bowel sounds, soft. ABSENT: distended, g uarding, mass, organolmegaly, rebound, tenderness Rectal exam: PRESENT: deferred Extremities exam: PRESENT: full ROM. ABSENT: calf tenderness, clubbing, pedal edema Neurological exam: PRESENT: alert, awake, oriented to person, oriented to place, oriented to time, oriented to situation, CN II-XII grossly intact. ABSENT: mo tor sensory deficit Psychiatric exam: PRESENT: appropriate affect, normal mood. ABSENT: homicidal ideation, suicidal ideation Results Laboratory Results: 04/10/20 08:55 04/09/20 06:26 01/24/20 01/24/20 01/24/20 00:03 00:03 04:20 Creatine Kinase 80 CK-MB (CK-2) 0.63 Troponin I 0.132 0.133 NT-Pro-B Natriuret Pep 04617 H 01/24/20 01/24/20 01/24/20 10:43 17:19 23:06 Creatine Kinase CK-MB (CK-2) Troponin I 0.114 0.079 0.075 NT-Pro-B Natriuret Pep 85185 H 01/30/20 01/31/20 02/01/20 03:45 05:39 06:14 Creatine Kinase CK-MB (CK-2) Troponin I NT-Pro-B Natriuret Pep 06273 H 58083 H 26307 H 02/02/20 02/27/20 02/27/20 04:24 08:12 08:12 Creatine Kinase 33 L CK-MB (CK-2) 2.16 Troponin I 0.013 NT-Pro-B Natriuret Pep 20933 H 02/27/20 02/28/20 02/29/20 08:12 05:44 05:35 Creatine Kinase CK-MB (CK-2) Troponin I NT-Pro-B Natriuret Pep 59980 H 80579 H 27191 H 03/02/20 03/03/20 03/11/20 05:44 05:00 04:33 Creatine Kinase CK-MB (CK-2) Troponin I NT-Pro-B Natriuret Pep 55569 H 07413 H 73266 H 03/13/20 03/15/20 03/25/20 08:40 08:44 08:40 Creatine Kinase CK-MB (CK-2) Troponin I 0.020 NT-Pro-B Natriuret Pep 11906 H 69654 H Impressions: Chest X-Ray 03/30/20 00:00 IMPRESSION: Worsening sepsis or edema. KUB X-Ray 03/31/20 00:00 IMPRESSION: Status post placement of enteric tube with distal tip in the expected location of the stomach. Modified Barium Swallow 04/10/20 09:58 IMPRESSION: TRACHEAL ASPIRATION WITH THIN BARIUM. PLEASE SEE SPEECH PATHOLOGIST REPORT FOR OTHER FINDINGS AND RECOMMENDATIONS. Assessment and Plan - Diagnosis (1) Acute respiratory failure due to severe acute respiratory syndrome coronavirus 2 (SARS-CoV-2) infection Is this a current diagnosis for this admission?: Yes Plan: - Significant hypoxic/hypercarbic respiratory failure secondary to COVID-19 pneumonia. - Repeat COVID-19 test on 03/04/2020 showed was negative. Infection is likely resolved. - Required prolonged intubation and mechanical ventilation and eventually had to get Tracheostomy done on 03/14/2020 by ENT. - currently on tracheostomy collar 6L at 50% FIO2 during daytime and bipap at night - currently 95% on trache collar - would continue with O2 support with trach collar and bipap PRN 04/09/2020-patient admitted with acute respiratory failure found to have COVID-19 positive. Patient has prolonged intubation in the ICU. Repeat COVID test on 1719 came back negative. Presently has a tracheostomy that was done on 03/14/2020 by ENT. Pulse ox this morning is 92% on trach. In the morning he is on 6 L of oxygen at 50% FiO2. Patient is on BiPAP at night. Currently not on antibiotics Vanco trough is 22.3. 04/10/2020-patient has a tracheostomy. Pulse ox is 94% stable. Examination chest bilateral dose decreased no wheezing no crepitations present. 04/11/2020-patient has a trach. On 6 L of oxygen. Pulse ox is 97%. Plan is to continue the present management at this time. 04/11/2020-patient is on trach. On 6 L of oxygen. Wants trach to be removed. Explained to him it without trach he may went into respiratory failure. (2) Acute metabolic encephalopathy Is this a current diagnosis for this admission?: Yes Plan: Secondary to #1 04/09/2020-acute metabolic encephalopathy secondary to acute respiratory failure resolved. 04/12/20-alert awake communicating well. Not in distress. (3) Acute CHF Qualifiers: Heart failure type: unspecified Qualified Code(s): I50.9 - Heart failure, unspecified Is this a current diagnosis for this admission?: Yes Plan: Inactive 04/09/2020-echocardiogram done on 03/27/2020-EF is 35 to 40%. Left ventricular systolic function moderately reduced. at the Time of my examination patient is not in fluid overload. 04/11/2020-patient admitted with acute CHF with EF of 35 to 40%. Patient is not in fluid overload at the time of my examination. Blood pressures are stable. 04/12/2020-patient has history of systolic heart failure with EF of 35 to 40%. Not in fluid overload. (4) Acute blood loss anemia Is this a current diagnosis for this admission?: Yes Plan: 04/09/2020-hemoglobin on 03/07 is 8.7. Patient has anemia of chronic disease due to multiple comorbidities. 04/10/2020-latest hemoglobin today is 9.4. Stable. (5) Severe sepsis without septic shock Is this a current diagnosis for this admission?: Yes Plan: Secondary to COVID pneumonia. Resolved (6) GI bleed not requiring more than 4 units of blood in 24 hours, ICU, or surgery Is this a current diagnosis for this admission?: Yes Plan: Guaiac positive stool. Will need to monitor for increased blood loss. Hgb overall stable. 04/09/2020-latest hemoglobin is 8.7. Stable. (7) Acute kidney injury superimposed on chronic kidney disease Is this a current diagnosis for this admission?: Yes Plan: Resolved 04/09/2020-today's creatinine is 0.85 with estimated GFR more than 60. Acute kidney injury is resolved. (8) Leukocytosis Qualifiers: Leukocytosis type: unspecified Qualified Code(s): D72.829 - Elevated white blood cell count, unspecified Is this a current diagnosis for this admission?: Yes - Plan Summary Summary: 04/03/2020 The patient has been asking for ice chips and now he wants Jell-O. I reminded him that he has failed 2 modified barium swallows at this point. The patient understands the risk but wishes to try Jello and Ice chips despite abnormal MBS. I wrote out very clearly the risks and he understood. He even wrote that if he develops problems or recurrent pneumonia he wants to stop treatment. I certainly will need to further delineate this but I think he understands the risks of trying ice chips. He still has creamy sputum in the suction tubing. His white blood cell count was coming down on the meropenem. His last serum chemistries were unremarkable. Unfortunately he continues to refuse a PEG tube. I did speak with speech therapy. They will be seeing him today. The second MBS was slightly better than the first. We may likely get a third MBS tomorrow or Jeovany to document any progress or lack thereof. He certainly has experienced significant weight loss but he refuses to allow us to provide proper nutrition. We will continue the D5 normal saline to provide some calories. 04/04/2020 He is tolerating ice chips but failed eating Jell-O. Consider another modified barium swallow to see if there is any progress. Despite explained to the patient that without nutrition is not going to get better he still declines a PEG tube. He has a perfectly functioning GI tract and we need to try and use this instead of just administering TPN. His anemia persists. His hemoglobin was 7.9 today. That is consistent with his last several blood tests. He has 1 more day of meropenem. We will then monitor him off of antibiotics. I will discuss with psychiatry. He seems to comprehend his decisions. He is seemingly making decisions that we will keep him in the hospital but this is just my opinion. We may need to have an ethics consult as he is making disposition extremely difficult and not helping himself with regards to recovery. 04/05/2020 Respiratory failure-I deflated the patient's cuff and held my finger over the tracheostomy and he was able to talk. His breathing was comfortable. I explained to the nurse that we will do trials of cuff down for several hours. We can then resume cuff up if the patient gets short of breath or in distress. I believe he will do well with the cuff down. If he continues to do well then we can swap out for a cuffless trach. I also explained that they need to be aggressive in cleaning the inner cannula. The patient is quite pleased being able to talk. Dysphagia-the patient states that he vomited with lemon Jell-O because of the taste not because of the texture. He is doing well with ice chips. He wants to try wynn Jell-O and ice cream. Once again I reviewed the fact that if he gets another pneumonia he will from it. He accepts that risk. Once again I asked about a PEG tube. He states that he does not want a PEG tube. He wants to begin eating. Unfortunately he declined working with speech therapy today. Pneumonia-he has 2 more days on his IV meropenem. We will continue to monitor. I will discuss further with the patient that if he gets pneumonia again that it is not reasonable to treat aggressively given his course. Hypertension-reasonable control. Continue current medications. Anemia-likely due to the prolonged illness. Today is day 72 of his hospitalization. He has not eaten in some time. Consider iron supplement. When he does begin swallowing definitely will add vitamins and iron. 04/06/2020 Cuff is been deflated since yesterday. He has not needed ventilatory support. He speaks easily by occluding the trach. Consider downsizing to a cuffless trach. Dysphagia-we are going to try and advance his diet slightly. He has done well with ice cream, lemon ice and chicken broth. We are going to try mesh potatoes and gravy. I explained to him that there is still significant risk of aspiration. He is aware of this. We are going to try and develop a strong cough to help him protect his airway. IV antibiotics will be completed shortly. Will monitor closely for any signs of reinfection. The patient is pleased with his progress. He understands that he also has to work with physical therapy to help his recovery. Need to remove sutures from tracheostomy. 04/07/2020 The patient has not needed the ventilator and has had his cuff down on trach collar for 3 days now. I will likely change him to a cuffless trach tomorrow. I will discuss this with the patient. With a cuffless trach he would have to have his trach replaced if he needed to go on the ventilator. He is still as pirating and will discuss the treatment plan if he were to get aspiration pneumonia again. His blood pressure was low today. He was up in the chair. Since he has not been out of bed for many weeks this is not surprising. We will adjust his medications appropriately. He has been working with physical therapy as he understands this is going to benefit him in the long run. Of note the patient's magnesium was low. I have ordered intravenous supplement. 04/08/2020 Still slightly low magnesium. I will order additional IV magnesium. When his swallow improves will change to oral dosing. Respiratory failure-the patient has been off of the ventilator for 4 days now. I changed him to a fenestrated cuffless #8 Shiley today. We have a button to occlude the trach so he can talk. I explained that he needs to develop a strong cough. It is a good sign that his voice is so strong. Dysphagia-since he has done very well over the weekend I believe repeating a modified barium study would be helpful this week. I will discuss with speech therapy. Anemia-the patient is still anemic. I will give him a series of B12 shots and a dose of iron sucrose. As his diet improves his anemia should improve as well. Pneumonia-he has been off of antibiotics for several days. Will monitor vitals and white blood cell count closely. I believe his swallow is getting stronger and his aspiration will improve. - Time Anticipated Discharge Disposition: Home, Self Care Anticipated Discharge Timeframe: within 48 hours
[2020-04-12] MEDS: INSULIN LISPRO 100 UNIT/ML 3 ML VIAL SUBCUT SCH ×4 (10:32→21:57)
[2020-04-12] MEDS: FUROSEMIDE 20 MG TABLET PO SCH (11:22)
[2020-04-12] MEDS: SENNOSIDES/DOCUSATE 8.6-50 MG 1 EACH TABLET PO SCH (11:23)
[2020-04-12] MEDS: LACTULOSE SYRUP 20 GM/30 ML UDCUP PO SCH ×2 (11:24→21:57)
[2020-04-12] MEDS: METOPROLOL SUCCINATE 25 MG TAB.SR.24H PO SCH (11:34)
[2020-04-12] MEDS: THIAMINE HCL 100 MG TABLET PO SCH (11:34)
[2020-04-12] MEDS: LISINOPRIL 5 MG TABLET PO SCH ×2 (11:35→22:02)
[2020-04-12] MEDS: PANTOPRAZOLE SODIUM 40 MG PACKET.DR NG SCH ×2 (11:35→11:52)
[2020-04-12] MEDS: ENOXAPARIN SODIUM INJ 40 MG/0.4 ML DISP.SYRIN SUBCUT SCH (11:36)
[2020-04-12] MEDS: INSULIN GLARGINE,HUM.REC.ANLOG 1,000 UNIT/10 ML VIAL SUBCUT SCH (11:36)
[2020-04-12] MEDS: SCOPOLAMINE HYDROBROMIDE 1.5 MG PATCH.TD72 TD SCH (11:37)
[2020-04-12] MEDS: PROMETHAZINE HCL INJ 25 MG/1 ML VIAL IV PRN ×2 (15:20→22:03)
[2020-04-12] MEDS: DEXTROSE 50%-WATER SYRINGE 12.5 GM/25 ML DOSE IV PRN (21:48)
[2020-04-13] MEDS: INSULIN LISPRO 100 UNIT/ML 3 ML VIAL SUBCUT SCH ×4 (08:10→22:04)
--- NOTE | 2020-04-13 09:32 | PDOC PROGRESS REPORT ---
Subjective Progress Note for:: 04/13/20 Subjective:: 59-year-old male, history of poorly controlled DM 2, HTN, CHF, narcotic dependence from chronic arthritis, CKD recently admitted to [facility] on 01/05/2020 for ZURDO and hyperkalemia and was discharged on 01/11/2020. Patient then returned to the ED on 01/15/2020 and was admitted for nausea vomiting associated with fatigue and dizziness. Troponins were elevated at that time with a proBNP of 29,000. During his hospital stay he was treated for pneumonia and hypoxemia which resolved. He also had a non-ST elevated ID which was thought to be related to demand ischemia in the setting of pneumonia and sepsis with poor clearance of troponins related to his CKD. Baseline creatinine is 3.2. Patient was discharged again on 01/19/2020 and returned to the emergency department on 01/23/2020 complaining of orthostatic hypotension, persistent dizziness, fever and shortness of breath. proBNP was again elevated to 17,700, Creatinine seems to be only mildly elevated from baseline. While in the ED, patient became hypotensive to 90/60 with increased O2 requirements and at one point had become unresponsive. He was placed on BiPAP which improved his respiratory status and he is now more awake and alert. He was given 2 L of LR and started on cefepime and Levaquin. Critical care was consulted to evaluate patient for admission to the intensive care unit. We will admit him to the ICU for further work-up and treatment given his respiratory and hemodynamic instability. 04/09/2020-patient is comfortably sleeping in the bed. Trach collar in place. Not connected to the vent. Denies any problems. As per the nurse patient is refusing vital signs refusing the lab work at this time. If he is able to have a modified barium swallow today. But he agreed to do modified him barium swallow during this week. 04/10/2020-patient went for modified barium swallow. Speech therapy is recommending nectar thickened liquids. No acute events the last 24 hours. Afebrile. WBC count is going up to 17,800 today. Patient is not on steroids at this time. Trach collar in place. 04/11/2020-patient had a modified barium swallow. As per the recommendations he is on nectar thickened liquids. Patient is requesting for regular food. We tr ied to explain to him that there is a high risk with aspiration. Patient was quite upset and wants to leave the hospital sign AMA. Prior to leaving the hospital he wants trach to be closed. Dr. Kunz was notified he thinks patient need a trach and continuous basis at this time. I completely agree with him. Patient agreed to stay now and agreed to go to [place] half-way if the bed is available. 04/12/20-patient to eat regular food, wants a trach tube removed. I explained to him that he is a high risk for aspiration even with the nectar thickened liquids. And also told him is not possible to remove the trach because he may went into respiratory failure with a trach. Patient got upset with me he wants me to leave the room. Later on he called patient advocate requesting another p hysician. In the meantime we will continue the present management. Presently on nectar thickened liquids. 04/13/2020-patient is still uncooperative. Requesting to eat regular food. Explained to him in detail how he may aspirate and may get aspiration pneumonia. But he is not listening to physician's advice and is not listening to nurses advice. Reason For Visit: HYPOXEMIC RESPIRATORY FAILURE, HEMODYNAMIC Physical Exam Vital Signs: Temp Pulse Resp BP Pulse Ox 97.8 F 83 17 132/79 H 100 04/13/20 07:23 04/13/20 07:23 04/13/20 07:23 04/13/20 07:23 04/13/20 07:23 Intake & Output 04/12/20 04/13/20 04/14/20 06:59 06:59 06:59 Intake Total 1025 Output Total 1225 705 Balance -1225 320 Weight 66 kg 65.9 kg General appearance: PRESENT: no acute distress, thin Head exam: PRESENT: atraumatic Eye exam: PRESENT: PERRLA Mouth exam: PRESENT: moist, tongue midline Teeth exam: PRESENT: poor dentation Neck exam: PRESENT: tracheostomy Respiratory exam: PRESENT: decreased breath sounds Cardiovascular exam: PRESENT: RRR. ABSENT: diastolic murmur, rubs, systolic murmur GI/Abdominal exam: PRESENT: normal bowel sounds, soft. ABSENT: distended, guarding, mass, organolmegaly, rebound, tenderness Rectal exam: PRESENT: deferred Extremities exam: PRESENT: full ROM. ABSENT: calf tenderness, clubbing, pedal edema Neurological exam: PRESENT: alert, awake, oriented to person, oriented to place, oriented to time, oriented to situation, CN II-XII grossly intact. ABSENT: motor sensory deficit Psychiatric exam: PRESENT: appropriate affect, normal mood. ABSENT: homicidal ideation, suicidal ideation Results Laboratory Results: 04/10/20 08:55 04/09/20 06:26 01/24/20 01/24/20 01/24/20 00:03 00:03 04:20 Creatine Kinase 80 CK-MB (CK-2) 0.63 Troponin I 0.132 0.133 NT-Pro-B Natriuret Pep 67005 H 01/24/20 01/24/20 01/24/20 10:43 17:19 23:06 Creatine Kinase CK-MB (CK-2) Troponin I 0.114 0.079 0.075 NT-Pro-B Natriuret Pep 58276 H 01/30/20 01/31/20 02/01/20 03:45 05:39 06:14 Creatine Kinase CK-MB (CK-2) Troponin I NT-Pro-B Natriuret Pep 57441 H 12340 H 01737 H 02/02/20 02/27/20 02/27/20 04:24 08:12 08:12 Creatine Kinase 33 L CK-MB (CK-2) 2.16 Troponin I 0.013 NT-Pro-B Natriuret Pep 34803 H 02/27/20 02/28/20 02/29/20 08:12 05:44 05:35 Creatine Kinase CK-MB (CK-2) Troponin I NT-Pro-B Natriuret Pep 77281 H 49092 H 30065 H 03/02/20 03/03/20 03/11/20 05:44 05:00 04:33 Creatine Kinase CK-MB (CK-2) Troponin I NT-Pro-B Natriuret Pep 71039 H 71230 H 11186 H 03/13/20 03/15/20 03/25/20 08:40 08:44 08:40 Creatine Kinase CK-MB (CK-2) Troponin I 0.020 NT-Pro-B Natriuret Pep 98906 H 56247 H Impressions: Chest X-Ray 03/30/20 00:00 IMPRESSION: Worsening sepsis or edema. KUB X-Ray 03/31/20 00:00 IMPRESSION: Status post placement of enteric tube with distal tip in the expected location of the stomach. Modified Barium Swallow 04/10/20 09:58 IMPRESSION: TRACHEAL ASPIRATION WITH THIN BARIUM. PLEASE SEE SPEECH PATHOLOGIST REPORT FOR OTHER FINDINGS AND RECOMMENDATIONS. Assessment and Plan - Diagnosis (1) Acute respiratory failure due to severe acute respiratory syndrome coronavirus 2 (SARS-CoV-2) infection Is this a current diagnosis for this admission?: Yes Plan: - Significant hypoxic/hypercarbic respiratory failure secondary to COVID-19 pneumonia. - Repeat COVID-19 test on 03/04/2020 showed was negative. Infection is likely resolved. - Required prolonged intubation and mechanical ventilation and eventually had to get Tracheostomy done on 03/14/2020 by ENT. - currently on tracheostomy collar 6L at 50% FIO2 during daytime and bipap at night - currently 95% on trache collar - would continue with O2 support with trach collar and bipap PRN 04/09/2020-patient admitted with acute respiratory failure found to have COVID-19 positive. Patient has prolonged intubation in the ICU. Repeat COVID test on 1719 came back negative. Presently has a tracheostomy that was done on 03/14/2020 by ENT. Pulse ox this morning is 92% on trach. In the morning he is on 6 L of oxygen at 50% FiO2. Patient is on BiPAP at night. Currently not on antibiotics Vanco trough is 22.3. 04/10/2020-patient has a tracheostomy. Pulse ox is 94% stable. Examination chest bilateral dose decreased no wheezing no crepitations present. 04/11/2020-patient has a trach. On 6 L of oxygen. Pulse ox is 97%. Plan is to continue the present management at this time. 04/12/20-patient is on trach. On 6 L of oxygen. Wants trach to be removed. Explained to him it without trach he may went into respiratory failure. 04/13/20-patient is with a trach on 6 L of oxygen. Able to communicate by closing the hole in the trach. He was the trach to come out and was treated regular food. As per ENT recommendations. pt need to have a trach at this time. (2) Acute metabolic encephalopathy Is this a current diagnosis for this admission?: Yes Plan: Secondary to #1 04/09/2020-acute metabolic encephalopathy secondary to acute respiratory failure resolved. 04/12/20-alert awake communicating well. Not in distress. 04/13/20-altered mental status resolved. Patient is communicating well. (3) Acute CHF Qualifiers: Heart failure type: unspecified Qualified Code(s): I50.9 - Heart failure, unspecified Is this a current diagnosis for this admission?: Yes Plan: Inactive 04/09/2020-echocardiogram done on 03/27/2020-EF is 35 to 40%. Left ventricular systolic function moderately reduced. at the Time of my examination patient is not in fluid overload. 04/11/2020-patient admitted with acute CHF with EF of 35 to 40%. Patient is not in fluid overload at the time of my examination. Blood pressures are stable. 04/12/2020-patient has history of systolic heart failure with EF of 35 to 40%. Not in fluid overload. (4) Acute blood loss anemia Is this a current diagnosis for this admission?: Yes Plan: 04/09/2020-hemoglobin on 03/07 is 8.7. Patient has anemia of chronic disease due to multiple comorbidities. 04/10/2020-latest hemoglobin today is 9.4. Stable. 04/13/2020-patient is refusing lab work at this time. (5) Severe sepsis without septic shock Is this a current diagnosis for this admission?: Yes Plan: Secondary to COVID pneumonia. Resolved (6) GI bleed not requiring more than 4 units of blood in 24 hours, ICU, or surgery Is this a current diagnosis for this admission?: Yes Plan: Guaiac positive stool. Will need to monitor for increased blood loss. Hgb overall stable. 04/09/2020-latest hemoglobin is 8.7. Stable. (7) Acute kidney injury superimposed on chronic kidney disease Is this a current diagnosis for this admission?: Yes Plan: Resolved 04/09/2020-today's creatinine is 0.85 with estimated GFR more than 60. Acute kidney injury is resolved. 04/13/2020-patient is refusing lab work at this time. (8) Leukocytosis Qualifiers: Leukocytosis type: unspecified Qualified Code(s): D72.829 - Elevated white blood cell count, unspecified Is this a current diagnosis for this admission?: Yes - Plan Summary Summary: 04/03/2020 The patient has been asking for ice chips and now he wants Jell-O. I reminded him that he has failed 2 modified barium swallows at this point. The patient understands the risk but wishes to try Jello and Ice chips despite abnormal MBS. I wrote out very clearly the risks and he understood. He even wrote that if he develops problems or recurrent pneumonia he wants to stop treatment. I certainly will need to further delineate this but I think he understands the risks of trying ice chips. He still has creamy sputum in the suction tubing. His white blood cell count was coming down on the meropenem. His last serum chemistries were unremarkable. Unfortunately he continues to refuse a PEG tube. I did speak with speech therapy. They will be seeing him today. The second MBS was slightly better than the first. We may likely get a third MBS tomorrow or Wednesday to document any progress or lack thereof. He certainly has experienced significant weight loss but he refuses to allow us to provide proper nutrition. We will continue the D5 normal saline to provide some calories. 04/04/2020 He is tolerating ice chips but failed eating Jell-O. Consider another modified barium swallow to see if there is any progress. Despite explained to the patient that without nutrition is not going to get better he still declines a PEG tube. He has a perfectly functioning GI tract and we need to try and use this instead of just administering TPN. His anemia persists. His hemoglobin was 7.9 today. That is consistent with his last several blood tests. He has 1 more day of meropenem. We will then monitor him off of antibiotics. I will discuss with psychiatry. He seems to comprehend his decisions. He is seemingly making decisions that we will keep him in the hospital but this is just my opinion. We may need to have an ethics consult as he is making dis position extremely difficult and not helping himself with regards to recovery. 04/05/2020 Respiratory failure-I deflated the patient's cuff and held my finger over the tracheostomy and he was able to talk. His breathing was comfortable. I explained to the nurse that we will do trials of cuff down for several hours. We can then resume cuff up if the patient gets short of breath or in distress. I believe he will do well with the cuff down. If he continues to do well then we can swap out for a cuffless trach. I also explained that they need to be aggressive in cleaning the inner cannula. The patient is quite pleased being able to talk. Dysphagia-the patient states that he vomited with lemon Jell-O because of the taste not because of the texture. He is doing well with ice chips. He wants to try wynn Jell-O and ice cream. Once again I reviewed the fact that if he gets another pneumonia he will from it. He accepts that risk. Once again I asked about a PEG tube. He states that he does not want a PEG tube. He wants to begin eating. Unfortunately he declined working with speech therapy today. Pneumonia-he has 2 more days on his IV meropenem. We will continue to monitor. I will discuss further with the patient that if he gets pneumonia again that it is not reasonable to treat aggressively given his course. Hypertension-reasonable control. Continue current medications. Anemia-likely due to the prolonged illness. Today is day 72 of his hospitalization. He has not eaten in some time. Consider iron supplement. When he does begin swallowing definitely will add vitamins and iron. 04/06/2020 Cuff is been deflated since yesterday. He has not needed ventilatory support. He speaks easily by occluding the trach. Consider downsizing to a cuffless trach. Dysphagia-we are going to try and advance his diet slightly. He has done well with ice cream, lemon ice and chicken broth. We are going to try mesh potatoes and gravy. I explained to him that there is still significant risk of aspiration. He is aware of this. We are going to try and develop a strong cough to help him protect his airway. IV antibiotics will be completed shortly. Will monitor closely for any signs of reinfection. The patient is pleased with his progress. He understands that he also has to work with physical therapy to help his recovery. Need to remove sutures from tracheostomy. 04/07/2020 The patient has not needed the ventilator and has had his cuff down on trach collar for 3 days now. I will likely change him to a cuffless trach tomorrow. I will discuss this with the patient. With a cuffless trach he would have to have his trach replaced if he needed to go on the ventilator. He is still aspirating and will discuss the treatment plan if he were to get aspiration pn eumonia again. His blood pressure was low today. He was up in the chair. Since he has not been out of bed for many weeks this is not surprising. We will adjust his medications appropriately. He has been working with physical therapy as he understands this is going to benefit him in the long run. Of note the patient's magnesium was low. I have ordered intravenous supplement. 04/08/2020 Still slightly low magnesium. I will order additional IV magnesium. When his swallow improves will change to oral dosing. Respiratory failure-the patient has been off of the ventilator for 4 days now. I changed him to a fenestrated cuffless #8 Shiley today. We have a button to occlude the trach so he can talk. I explained that he needs to develop a strong cough. It is a good sign that his voice is so strong. Dysphagia-since he has done very well over the weekend I believe repeating a modified barium study would be helpful this week. I will discuss with speech therapy. Anemia-the patient is still anemic. I will give him a series of B12 shots and a dose of iron sucrose. As his diet improves his anemia should improve as well. Pneumonia-he has been off of antibiotics for several days. Will monitor vitals and white blood cell count closely. I believe his swallow is getting stronger and his aspiration will improve. - Time Anticipated Discharge Disposition: [facility] Anticipated Discharge Timeframe: within 72 hours
[2020-04-13] MEDS: SENNOSIDES/DOCUSATE 8.6-50 MG 1 EACH TABLET PO SCH (09:54)
[2020-04-13] MEDS: LACTULOSE SYRUP 20 GM/30 ML UDCUP PO SCH ×2 (09:54→22:12)
[2020-04-13] MEDS: FUROSEMIDE 20 MG TABLET PO SCH (09:54)
[2020-04-13] MEDS: THIAMINE HCL 100 MG TABLET PO SCH (10:03)
[2020-04-13] MEDS: LISINOPRIL 5 MG TABLET PO SCH ×2 (10:03→22:08)
[2020-04-13] MEDS: INSULIN GLARGINE,HUM.REC.ANLOG 1,000 UNIT/10 ML VIAL SUBCUT SCH (10:04)
[2020-04-13] MEDS: METOPROLOL SUCCINATE 25 MG TAB.SR.24H PO SCH (10:04)
[2020-04-13] MEDS: ENOXAPARIN SODIUM INJ 40 MG/0.4 ML DISP.SYRIN SUBCUT SCH (10:08)
[2020-04-13] MEDS: OXYCODONE-ACETAMINOPHEN 5-325 MG TABLET PO PRN ×3 (10:08→23:47)
[2020-04-13] MEDS: OXYCODONE HCL IR 5 MG TABLET PO PRN ×3 (10:08→23:48)
[2020-04-13] MEDS: PANTOPRAZOLE SODIUM 40 MG PACKET.DR NG SCH (10:17)
[2020-04-13] MEDS: DIPHENHYDRAMINE HCL 50 MG/ML VIAL IV PRN ×2 (17:40→23:47)
[2020-04-14] MEDS: INSULIN LISPRO 100 UNIT/ML 3 ML VIAL SUBCUT SCH ×4 (08:45→21:56)
--- NOTE | 2020-04-14 09:05 | PDOC PROGRESS REPORT ---
Subjective Progress Note for:: 04/14/20 Subjective:: 59-year-old male, history of poorly controlled DM 2, HTN, CHF, narcotic dependence from chronic arthritis, CKD recently admitted to [facility] on 01/05/2020 for ZURDO and hyperkalemia and was discharged on 01/11/2020. Patient then returned to the ED on 01/15/2020 and was admitted for nausea vomiting associated with fatigue and dizziness. Troponins were elevated at that time with a proBNP of 29,000. During his hospital stay he was treated for pneumonia and hypoxemia which resolved. He also had a non-ST elevated IL which was thought to be related to demand ischemia in the setting of pneumonia and sepsis with poor clearance of troponins related to his CKD. Baseline creatinine is 3.2. Patient was discharged again on 01/19/2020 and returned to the emergency department on 01/23/2020 complaining of orthostatic hypotension, persistent dizziness, fever and shortness of breath. proBNP was again elevated to 17,700, Creatinine seems to be only mildly elevated from baseline. While in the ED, patient became hypotensive to 90/60 with increased O2 requirements and at one point had become unresponsive. He was placed on BiPAP which improved his respiratory status and he is now more awake and alert. He was given 2 L of LR and started on cefepime and Levaquin. Critical care was consulted to evaluate patient for admission to the intensive care unit. We will admit him to the ICU for further work-up and treatment given his respiratory and hemodynamic instability. 04/09/2020-patient is comfortably sleeping in the bed. Trach collar in place. Not connected to the vent. Denies any problems. As per the nurse patient is refusing vital signs refusing the lab work at this time. If he is able to have a modified barium swallow today. But he agreed to do modified him barium swallow during this week. 04/10/2020-patient went for modified barium swallow. Speech therapy is recommending nectar thickened liquids. No acute events the last 24 hours. Afebrile. WBC count is going up to 17,800 today. Patient is not on steroids at this time. Trach collar in place. 04/11/2020-patient had a modified barium swallow. As per the recommendations he is on nectar thickened liquids. Patient is requesting for regular food. We tr ied to explain to him that there is a high risk with aspiration. Patient was quite upset and wants to leave the hospital sign AMA. Prior to leaving the hospital he wants trach to be closed. Dr. Kunz was notified he thinks patient need a trach and continuous basis at this time. I completely agree with him. Patient agreed to stay now and agreed to go to [facility] if the bed is available. 04/12/20-patient to eat regular food, wants a trach tube removed. I explained to him that he is a high risk for aspiration even with the nectar thickened liquids. And also told him is not possible to remove the trach because he may went into respiratory failure with a trach. Patient got upset with me he wants me to leave the room. Later on he called patient advocate requesting another p hysician. In the meantime we will continue the present management. Presently on nectar thickened liquids. 04/13/2020-patient is still uncooperative. Requesting to eat regular food. Explained to him in detail how he may aspirate and may get aspiration pneumonia. But he is not listening to physician's advice and is not listening to nurses advice. 04/14/2020-patient is not cooperating. Refusing to talk to me. Refused to be examined. No acute events in the last 24 hours. Afebrile. Reason For Visit: HYPOXEMIC RESPIRATORY FAILURE, HEMODYNAMIC Physical Exam Vital Signs: Temp Pulse Resp BP Pulse Ox 97.3 F 85 13 123/71 95 04/14/20 07:39 04/14/20 07:39 04/14/20 07:39 04/14/20 07:39 04/14/20 08:37 Intake & Output 04/13/20 04/14/20 04/15/20 06:59 06:59 06:59 Intake Total 1025 1200 Output Total 705 875 Balance 320 325 Weight 65.9 kg 67.4 kg General appearance: PRESENT: no acute distress, thin Head exam: PRESENT: atraumatic Eye exam: PRESENT: PERRLA Mouth exam: PRESENT: moist, tongue midline Neck exam: PRESENT: tracheostomy Respiratory exam: PRESENT: decreased breath sounds Cardiovascular exam: PRESENT: RRR. ABSENT: diastolic murmur, rubs, systolic murmur GI/Abdominal exam: PRESENT: normal bowel sounds, soft. ABSENT: distended, guarding, mass, organolmegaly, rebound, tenderness Rectal exam: PRESENT: deferred Extremities exam: PRESENT: full ROM. ABSENT: calf tenderness, clubbing, pedal e giovanny Neurological exam: PRESENT: alert, awake, oriented to person, oriented to place, oriented to time, oriented to situation, CN II-XII grossly intact. ABSENT: motor sensory deficit Results Laboratory Results: 04/10/20 08:55 04/09/20 06:26 01/24/20 01/24/20 01/24/20 00:03 00:03 04:20 Creatine Kinase 80 CK-MB (CK-2) 0.63 Troponin I 0.132 0.133 NT-Pro-B Natriuret Pep 32962 H 01/24/20 01/24/20 01/24/20 10:43 17:19 23:06 Creatine Kinase CK-MB (CK-2) Troponin I 0.114 0.079 0.075 NT-Pro-B Natriuret Pep [id number] H 01/30/20 01/31/20 02/01/20 03:45 05:39 06:14 Creatine Kinase CK-MB (CK-2) Troponin I NT-Pro-B Natriuret Pep 30365 H 80232 H 88417 H 02/02/20 02/27/20 02/27/20 04:24 08:12 08:12 Creatine Kinase 33 L CK-MB (CK-2) 2.16 Troponin I 0.013 NT-Pro-B Natriuret Pep 73590 H 02/27/20 02/28/20 02/29/20 08:12 05:44 05:35 Creatine Kinase CK-MB (CK-2) Troponin I NT-Pro-B Natriuret Pep 64975 H 26872 H 24901 H 03/02/20 03/03/20 03/11/20 05:44 05:00 04:33 Creatine Kinase CK-MB (CK-2) Troponin I NT-Pro-B Natriuret Pep 08176 H 63511 H 07219 H 03/13/20 03/15/20 03/25/20 08:40 08:44 08:40 Creatine Kinase CK-MB (CK-2) Troponin I 0.020 NT-Pro-B Natriuret Pep 25417 H 12707 H Impressions: Chest X-Ray 03/30/20 00:00 IMPRESSION: Worsening sepsis or edema. KUB X-Ray 03/31/20 00:00 IMPRESSION: Status post placement of enteric tube with distal tip in the expected location of the stomach. Modified Barium Swallow 04/10/20 09:58 IMPRESSION: TRACHEAL ASPIRATION WITH THIN BARIUM. PLEASE SEE SPEECH PATHOLOGIST REPORT FOR OTHER FINDINGS AND RECOMMENDATIONS. Assessment and Plan - Diagnosis (1) Acute respiratory failure due to severe acute respiratory syndrome coronavirus 2 (SARS-CoV-2) infection Is this a current diagnosis for this admission?: Yes Plan: - Significant hypoxic/hypercarbic respiratory failure secondary to COVID-19 pneumonia. - Repeat COVID-19 test on 03/04/2020 showed was negative. Infection is likely resolved. - Required prolonged intubation and mechanical ventilation and eventually had to get Tracheostomy done on 03/14/2020 by ENT. - currently on tracheostomy collar 6L at 50% FIO2 during daytime and bipap at night - currently 95% on trache collar - would continue with O2 support with trach collar and bipap PRN 04/09/2020-patient admitted with acute respiratory failure found to have COVID-19 positive. Patient has prolonged intubation in the ICU. Repeat COVID test on 1719 came back negative. Presently has a tracheostomy that was done on 03/14/2020 by ENT. Pulse ox this morning is 92% on trach. In the morning he is on 6 L of oxygen at 50% FiO2. Patient is on BiPAP at night. Currently not on antibiotics Vanco trough is 22.3. 04/10/2020-patient has a tracheostomy. Pulse ox is 94% stable. Examination chest bilateral dose decreased no wheezing no crepitations present. 04/11/2020-patient has a trach. On 6 L of oxygen. Pulse ox is 97%. Plan is to continue the present management at this time. 04/12/20-patient is on trach. On 6 L of oxygen. Wants trach to be removed. Explained to him it without trach he may went into respiratory failure. 04/13/20-patient is with a trach on 6 L of oxygen. Able to communicate by closing the hole in the trach. He was the trach to come out and was treated regular food. As per ENT recommendations. pt need to have a trach at this time. 04/14/2020-patient is reminded on trach collar. With 6 L of oxygen. Socks is 94%. Plan is to continue the present management. (2) Acute metabolic encephalopathy Is this a current diagnosis for this admission?: Yes Plan: Secondary to #1 04/09/2020-acute metabolic encephalopathy secondary to acute respiratory failure resolved. 04/12/20-alert awake communicating well. Not in distress. 04/13/20-altered mental status resolved. Patient is communicating well. (3) Acute CHF Qualifiers: Heart failure type: unspecified Qualified Code(s): I50.9 - Heart failure, unspecified Is this a current diagnosis for this admission?: Yes Plan: Inactive 04/09/2020-echocardiogram done on 03/27/2020-EF is 35 to 40%. Left ventricular systolic function moderately reduced. at the Time of my examination patient is not in fluid overload. 04/11/2020-patient admitted with acute CHF with EF of 35 to 40%. Patient is not in fluid overload at the time of my examination. Blood pressures are stable. 04/12/2020-patient has history of systolic heart failure with EF of 35 to 40%. Not in fluid overload. (4) Acute blood loss anemia Is this a current diagnosis for this admission?: Yes Plan: 04/09/2020-hemoglobin on 03/07 is 8.7. Patient has anemia of chronic disease due to multiple comorbidities. 04/10/2020-latest hemoglobin today is 9.4. Stable. 04/13/2020-patient is refusing lab work at this time. (5) Severe sepsis without septic shock Is this a current diagnosis for this admission?: Yes Plan: Secondary to COVID pneumonia. Resolved 04/14/2020-blood pressure today is 100/60. Stable. Asymptomatic. (6) GI bleed not requiring more than 4 units of blood in 24 hours, ICU, or surgery Is this a current diagnosis for this admission?: Yes Plan: Guaiac positive stool. Will need to monitor for increased blood loss. Hgb overall stable. 04/09/2020-latest hemoglobin is 8.7. Stable. (7) Acute kidney injury superimposed on chronic kidney disease Is this a current diagnosis for this admission?: Yes Plan: Resolved 04/09/2020-today's creatinine is 0.85 with estimated GFR more than 60. Acute kidney injury is resolved. 04/13/2020-patient is refusing lab work at this time. (8) Leukocytosis Qualifiers: Leukocytosis type: unspecified Qualified Code(s): D72.829 - Elevated white blood cell count, unspecified Is this a current diagnosis for this admission?: Yes Plan: White blood cell count increased slightly from 3 days ago. Will decrease Decadron and follow. 04/09/2020-WBC count is normalized patient is not on Decadron at this time. 04/10/2020-WBC count is 17,800 today. Afebrile. Blood pressure is stable. Plan is to check the labs on daily basis. 04/14/2020-patient is refusing the lab work for the last several days. - Plan Summary Summary: 04/03/2020 The patient has been asking for ice chips and now he wants Jell-O. I reminded him that he has failed 2 modified barium swallows at this point. The patient understands the risk but wishes to try Jello and Ice chips despite abnormal MBS. I wrote out very clearly the risks and he understood. He even wrote that if he develops problems or recurrent pneumonia he wants to stop treatment. I certainly will need to further delineate this but I think he understands the risks of trying ice chips. He still has creamy sputum in the suction tubing. His white blood cell count was coming down on the meropenem. His last serum chemistries were unremarkable. Unfortunately he continues to refuse a PEG tube. I did speak with speech therapy. They will be seeing him today. The second MBS was slightly better than the first. We may likely get a third MBS tomorrow or Wednesday to document any progress or lack thereof. He certainly has experienced significant weight loss but he refuses to allow us to provide proper nutrition. We will continue the D5 normal saline to provide some calories. 04/04/2020 He is tolerating ice chips but failed eating Jell-O. Consider another modified barium swallow to see if there is any progress. Despite explained to the patient that without nutrition is not going to get better he still declines a PEG tube. He has a perfectly functioning GI tract and we need to try and use this instead of just administering TPN. His anemia persists. His hemoglobin was 7.9 today. That is consistent with his last several blood tests. He has 1 more day of meropenem. We will then monitor him off of antibiotics. I will discuss with psychiatry. He seems to comprehend his decisions. He is seemingly making decisions that we will keep him in the hospital but this is just my opinion. We may need to have an ethics consult as he is making disposition extremely difficult and not helping himself with regards to recovery. 04/05/2020 Respiratory failure-I deflated the patient's cuff and held my finger over the tracheostomy and he was able to talk. His breathing was comfortable. I explained to the nurse that we will do trials of cuff down for several hours. We can then resume cuff up if the patient gets short of breath or in distress. I believe he will do well with the cuff down. If he continues to do well then we can swap out for a cuffless trach. I also explained that they need to be agg ressive in cleaning the inner cannula. The patient is quite pleased being able to talk. Dysphagia-the patient states that he vomited with lemon Jell-O because of the taste not because of the texture. He is doing well with ice chips. He wants to try wynn Jell-O and ice cream. Once again I reviewed the fact that if he gets another pneumonia he will from it. He accepts that risk. Once again I asked about a PEG tube. He states that he does not want a PEG tube. He wants to begin eating. Unfortunately he declined working with speech therapy today. Pneumonia-he has 2 more days on his IV meropenem. We will continue to monitor. I will discuss further with the patient that if he gets pneumonia again that it is not reasonable to treat aggressively given his course. Hypertension-reasonable control. Continue current medications. Anemia-likely due to the prolonged illness. Today is day 72 of his hospitalization. He has not eaten in some time. Consider iron supplement. When he does begin swallowing definitely will add vitamins and iron. 04/06/2020 Cuff is been deflated since yesterday. He has not needed ventilatory support. He speaks easily by occluding the trach. Consider downsizing to a cuffless trach. Dysphagia-we are going to try and advance his diet slightly. He has done well with ice cream, lemon ice and chicken broth. We are going to try mesh potatoes and gravy. I explained to him that there is still significant risk of aspiration. He is aware of this. We are going to try and develop a strong cough to help him protect his airway. IV antibiotics will be completed shortly. Will monitor closely for any signs of reinfection. The patient is pleased with his progress. He understands that he also has to work with physical therapy to help his recovery. Need to remove sutures from tracheostomy. 04/07/2020 The patient has not needed the ventilator and has had his cuff down on trach collar for 3 days now. I will likely change him to a cuffless trach tomorrow. I will discuss this with the patient. With a cuffless trach he would have to have his trach replaced if he needed to go on the ventilator. He is still aspirating and will discuss the treatment plan if he were to get aspiration pneumonia again. His blood pressure was low today. He was up in the chair. Since he has not been out of bed for many weeks this is not surprising. We will adjust his medications appropriately. He has been working with physical therapy as he understands this is going to benefit him in the long run. Of note the patient's magnesium was low. I have ordered intravenous supplement. 04/08/2020 Still slightly low magnesium. I will order additional IV magnesium. When his swallow improves will change to oral dosing. Respiratory failure-the patient has been off of the ventilator for 4 days now. I changed him to a fenestrated cuffless #8 Shiley today. We have a button to occlude the trach so he can talk. I explained that he needs to develop a strong cough. It is a good sign that his voice is so strong. Dysphagia-since he has done very well over the weekend I believe repeating a modified barium study would be helpful this week. I will discuss with speech therapy. Anemia-the patient is still anemic. I will give him a series of B12 shots and a dose of iron sucrose. As his diet improves his anemia should improve as well. Pneumonia-he has been off of antibiotics for several days. Will monitor vitals and white blood cell count closely. I believe his swallow is getting stronger and his aspiration will improve. - Time Anticipated Discharge Disposition: Long-Term Facility Anticipated Discharge Timeframe: within 72 hours
[2020-04-14 10:18] LABS: ABSOLUTE BASOPHILS # (AUTO) 0.1 10^3/uL (0.0-0.2); ABSOLUTE EOSINOPHILS # (AUTO) 0.4 10^3/uL (0.0-0.6); ABSOLUTE LYMPHOCYTES (AUTO) 1.3 10^3/uL (0.5-4.7); ABSOLUTE MONOCYTES (AUTO) 1.1 10^3/uL (0.1-1.4); ABSOLUTE NEUT (AUTO) 6.2 10^3/uL (1.7-8.2); BASOPHILS % (AUTO) 1.4 % (0-2); HEMATOCRIT 25.2 % (37.9-51.0); HEMOGLOBIN 8.1 g/dL (13.5-17.0); MEAN CORPUSCULAR HEMOGLOBIN 27.5 pg (27.0-33.4); MEAN CORPUSCULAR HGB CONC 32.2 g/dL (32.0-36.0); MEAN CORPUSCULAR VOLUME 85 fl (80-97); MONOCYTES % (AUTO) 12.1 % (3-13); PLATELET COUNT 555 10^3/uL (150-450); RED BLOOD COUNT 2.95 10^6/uL (4.35-5.55); RED CELL DISTRIBUTION WIDTH 18.4 % (11.5-14.0); SEGMENTED NEUTROPHILS % (AUTO) 68.5 % (42-78); TOTAL CELLS COUNTED % (AUTO) 100 %
[2020-04-14] MEDS: METOPROLOL SUCCINATE 25 MG TAB.SR.24H PO SCH (10:31)
[2020-04-14] MEDS: LISINOPRIL 5 MG TABLET PO SCH ×2 (10:31→22:09)
[2020-04-14] MEDS: OXYCODONE HCL IR 5 MG TABLET PO PRN ×3 (10:31→22:09)
[2020-04-14] MEDS: ENOXAPARIN SODIUM INJ 40 MG/0.4 ML DISP.SYRIN SUBCUT SCH (10:32)
[2020-04-14] MEDS: INSULIN GLARGINE,HUM.REC.ANLOG 1,000 UNIT/10 ML VIAL SUBCUT SCH (10:32)
[2020-04-14] MEDS: THIAMINE HCL 100 MG TABLET PO SCH (10:32)
[2020-04-14] MEDS: OXYCODONE-ACETAMINOPHEN 5-325 MG TABLET PO PRN ×3 (10:32→22:50)
[2020-04-14 10:35] LABS: ALBUMIN 2.3 g/dL (3.5-5.0); ALKALINE PHOSPHATASE 116 U/L (38-126); ANION GAP 7 (5-19); ASPARTATE AMINO TRANSFERASE 9 U/L (17-59); BILIRUBIN,DIRECT 0.2 mg/dL (0.0-0.4); BILIRUBIN,TOTAL 0.3 mg/dL (0.2-1.3); BLOOD UREA NITROGEN 22 mg/dL (7-20); CALCIUM 8.8 mg/dL (8.4-10.2); CARBON DIOXIDE 27 mmol/L (22-30); CHLORIDE 107 mmol/L (98-107); GLUCOSE 98 mg/dL (75-110); POTASSIUM 4.1 mmol/L (3.6-5.0); TOTAL PROTEIN 5.7 g/dL (6.3-8.2)
[2020-04-14] MEDS: DIPHENHYDRAMINE HCL 50 MG/ML VIAL IV PRN ×3 (10:39→22:38)
[2020-04-14] MEDS: LACTULOSE SYRUP 20 GM/30 ML UDCUP PO SCH ×2 (10:43→21:55)
[2020-04-14] MEDS: PANTOPRAZOLE SODIUM 40 MG PACKET.DR NG SCH (10:43)
[2020-04-14] MEDS: FUROSEMIDE 20 MG TABLET PO SCH (10:43)
[2020-04-14] MEDS: SENNOSIDES/DOCUSATE 8.6-50 MG 1 EACH TABLET PO SCH (10:43)
[2020-04-14] MEDS: PROMETHAZINE HCL INJ 25 MG/1 ML VIAL IV PRN (17:39)
[2020-04-15] MEDS: OXYCODONE-ACETAMINOPHEN 5-325 MG TABLET PO PRN ×2 (05:56→18:15)
[2020-04-15] MEDS: OXYCODONE HCL IR 5 MG TABLET PO PRN ×2 (05:56→18:14)
[2020-04-15] MEDS: PROMETHAZINE HCL INJ 25 MG/1 ML VIAL IV PRN ×2 (05:57→18:21)
[2020-04-15] MEDS: DIPHENHYDRAMINE HCL 50 MG/ML VIAL IV PRN ×2 (05:57→18:14)
[2020-04-15] MEDS: INSULIN LISPRO 100 UNIT/ML 3 ML VIAL SUBCUT SCH ×4 (09:30→23:00)
[2020-04-15] MEDS: INSULIN GLARGINE,HUM.REC.ANLOG 1,000 UNIT/10 ML VIAL SUBCUT SCH (09:30)
[2020-04-15] MEDS: ENOXAPARIN SODIUM INJ 40 MG/0.4 ML DISP.SYRIN SUBCUT SCH (09:33)
[2020-04-15] MEDS: METOPROLOL SUCCINATE 25 MG TAB.SR.24H PO SCH (09:33)
[2020-04-15] MEDS: LISINOPRIL 5 MG TABLET PO SCH ×2 (09:33→23:06)
[2020-04-15] MEDS: THIAMINE HCL 100 MG TABLET PO SCH (09:33)
[2020-04-15] MEDS: SENNOSIDES/DOCUSATE 8.6-50 MG 1 EACH TABLET PO SCH (11:44)
[2020-04-15] MEDS: PANTOPRAZOLE SODIUM 40 MG PACKET.DR NG SCH (11:44)
[2020-04-15] MEDS: LACTULOSE SYRUP 20 GM/30 ML UDCUP PO SCH ×2 (11:44→22:48)
[2020-04-15] MEDS: FUROSEMIDE 20 MG TABLET PO SCH (11:44)
[2020-04-15] MEDS: ONDANSETRON HCL INJ/PF 4 MG/2 ML SDV IV PRN (11:49)
[2020-04-15] MEDS: SCOPOLAMINE HYDROBROMIDE 1.5 MG PATCH.TD72 TD SCH (11:49)
--- NOTE | 2020-04-15 12:39 | PDOC PROGRESS REPORT ---
Subjective Progress Note for:: 04/15/20 Subjective:: 59-year-old male, history of poorly controlled DM 2, HTN, CHF, narcotic dependence from chronic arthritis, CKD recently admitted to [facility] on 01/05/2020 for ZURDO and hyperkalemia and was discharged on 01/11/2020. Patient then returned to the ED on 01/15/2020 and was admitted for nausea vomiting associated with fatigue and dizziness. Troponins were elevated at that time with a proBNP of 29,000. During his hospital stay he was treated for pneumonia and hypoxemia which resolved. He also had a non-ST elevated FL which was thought to be related to demand ischemia in the setting of pneumonia and sepsis with poor clearance of troponins related to his CKD. Baseline creatinine is 3.2. Patient was discharged again on 01/19/2020 and returned to the emergency department on 01/23/2020 and was admitted for acute respiratory failure secondary to COVID-19 pneumonia. Patient was seen on morning rounds. He was found sitting up in bed, comfortably, on trach collar. Patient is able to place finger over ostomy and speak clearly. He tells me that he is nauseated today. He declines antiemetics. He states that his nausea is related to the food provided; he believes that advancing his diet will resolve his issue. He denies actual emesis. He further denies dyspnea, cough, chest pain, palpitations, and abdominal pain. He has no other questions or concerns at this time. No concerns per nursing. Reason For Visit: HYPOXEMIC RESPIRATORY FAILURE, HEMODYNAMIC Physical Exam Vital Signs: Temp Pulse Resp BP Pulse Ox 97.5 F 88 14 102/67 98 04/15/20 00:00 04/15/20 07:00 04/15/20 00:00 04/15/20 00:00 04/15/20 10:20 Intake & Output 04/14/20 04/15/20 04/16/20 06:59 06:59 06:59 Intake Total 1200 650 Output Total 875 1000 Balance 325 -350 Weight 67.4 kg 68.2 kg General appearance: PRESENT: no acute distress, disheveled, thin, well-developed Head exam: PRESENT: atraumatic, normocephalic Eye exam: PRESENT: conjunctiva pink, EOMI, PERRLA. ABSENT: scleral icterus Mouth exam: PRESENT: moist, tongue midline Neck exam: PRESENT: tracheostomy Respiratory exam: PRESENT: symmetrical, unlabored, other - supplemental oxygen via trach collar Neurological exam: PRESENT: alert, awake, oriented to person, oriented to place, oriented to time, oriented to situation, CN II-XII grossly intact. ABSENT: motor sensory deficit Psychiatric exam: PRESENT: appropriate affect, normal mood. ABSENT: homicidal ideation, suicidal ideation Skin exam: PRESENT: dry, intact, warm. ABSENT: cyanosis, rash Additional comments: Exam limited r/t patient participation Results Laboratory Results: 04/14/20 09:51 04/14/20 09:51 01/24/20 01/24/20 01/24/20 00:03 00:03 04:20 Creatine Kinase 80 CK-MB (CK-2) 0.63 Troponin I 0.132 0.133 NT-Pro-B Natriuret Pep 32073 H 01/24/20 01/24/20 01/24/20 10:43 17:19 23:06 Creatine Kinase CK-MB (CK-2) Troponin I 0.114 0.079 0.075 NT-Pro-B Natriuret Pep 88188 H 01/30/20 01/31/20 02/01/20 03:45 05:39 06:14 Creatine Kinase CK-MB (CK-2) Troponin I NT-Pro-B Natriuret Pep 65585 H 68698 H 42049 H 02/02/20 02/27/20 02/27/20 04:24 08:12 08:12 Creatine Kinase 33 L CK-MB (CK-2) 2.16 Troponin I 0.013 NT-Pro-B Natriuret Pep 74965 H 02/27/20 02/28/20 02/29/20 08:12 05:44 05:35 Creatine Kinase CK-MB (CK-2) Troponin I NT-Pro-B Natriuret Pep 73512 H 26485 H 97063 H 03/02/20 03/03/20 03/11/20 05:44 05:00 04:33 Creatine Kinase CK-MB (CK-2) Troponin I NT-Pro-B Natriuret Pep 86634 H 54450 H 80414 H 03/13/20 03/15/20 03/25/20 08:40 08:44 08:40 Creatine Kinase CK-MB (CK-2) Troponin I 0.020 NT-Pro-B Natriuret Pep 35972 H 75752 H Impressions: Chest X-Ray 03/30/20 00:00 IMPRESSION: Worsening sepsis or edema. KUB X-Ray 03/31/20 00:00 IMPRESSION: Status post placement of enteric tube with distal tip in the expected location of the stomach. Modified Barium Swallow 04/10/20 09:58 IMPRESSION: TRACHEAL ASPIRATION WITH THIN BARIUM. PLEASE SEE SPEECH PATHOLOGIST REPORT FOR OTHER FINDINGS AND RECOMMENDATIONS. Assessment and Plan - Diagnosis (1) Debility Is this a current diagnosis for this admission?: Yes Plan: Patient now essentially bed bound, oxygen dependent via trach collar, and on pureed/nectar thickened liquid diet w/ continued evidence of high risk for aspiration. PT/OT/ST consultations have been requested. Therapy services have signs signed off r/t patient's refusal and noncompliance w/ recommendations. Discharge planning is consulted. (2) Acute metabolic encephalopathy Is this a current diagnosis for this admission?: Yes Plan: Resolved. Secondary to #1 (3) Sepsis associated hypotension Is this a current diagnosis for this admission?: Yes Plan: Resolved (4) GI bleed not requiring more than 4 units of blood in 24 hours, ICU, or surgery Is this a current diagnosis for this admission?: Yes Plan: Guaiac positive stool. Will need to monitor for increased blood loss. Hgb overall stable. Hemoglobin remained stable. (5) Acute kidney injury superimposed on chronic kidney disease Is this a current diagnosis for this admission?: Yes Plan: Resolved (6) Acute respiratory failure due to severe acute respiratory syndrome coronavirus 2 (SARS-CoV-2) infection Is this a current diagnosis for this admission?: Yes Plan: Acute respiratory failure has resolved. - Significant hypoxic/hypercarbic respiratory failure secondary to COVID-19 pneumonia. - Repeat COVID-19 test on 03/04/2020 showed was negative. Infection is likely resolved. - Required prolonged intubation and mechanical ventilation and eventually had to get Tracheostomy done on 03/14/2020 by ENT. - would continue with O2 support with trach collar and bipap PRN Maintaining oxygen saturations of 98% on trach collar 6 L/min; FiO2 35%. (7) Leukocytosis Qualifiers: Leukocytosis type: unspecified Qualified Code(s): D72.829 - Elevated white blood cell count, unspecified Is this a current diagnosis for this admission?: Yes Plan: Resolved. (8) Acute CHF Qualifiers: Heart failure type: unspecified Qualified Code(s): I50.9 - Heart failure, unspecified Is this a current diagnosis for this admission?: Yes Plan: Acute exacerbation has resolved. Echocardiogram done on 03/27/2020-EF is 35 to 40%. Left ventricular systolic function moderately reduced. (9) Severe sepsis without septic shock Is this a current diagnosis for this admission?: Yes Plan: Secondary to COVID pneumonia. Resolved (10) Acute blood loss anemia Is this a current diagnosis for this admission?: Yes Plan: Hgb is now stable. No evidence of ongoing blood loss. Secondary to GI bleed. (11) Acute hypercapnic respiratory failure Is this a current diagnosis for this admission?: Yes Plan: Resolved. Trach collar continues, patient tolerating well Will need pulmonology follow-up outpatient - Time Time Spent with patient: 25-34 minutes Medications reviewed and adjusted accordingly: Yes Anticipated Discharge Disposition: undetermined Anticipated Discharge Timeframe: when bed available
[2020-04-16] MEDS: DIPHENHYDRAMINE HCL 50 MG/ML VIAL IV PRN ×3 (00:41→15:50)
[2020-04-16] MEDS: OXYCODONE-ACETAMINOPHEN 5-325 MG TABLET PO PRN ×5 (00:42→21:29)
[2020-04-16] MEDS: PROMETHAZINE HCL INJ 25 MG/1 ML VIAL IV PRN ×2 (00:42→21:32)
[2020-04-16] MEDS: OXYCODONE HCL IR 5 MG TABLET PO PRN ×5 (00:42→21:30)
[2020-04-16] MEDS: FUROSEMIDE 20 MG TABLET PO SCH (10:21)
[2020-04-16] MEDS: LISINOPRIL 5 MG TABLET PO SCH ×2 (10:21→21:30)
[2020-04-16] MEDS: THIAMINE HCL 100 MG TABLET PO SCH (10:21)
[2020-04-16] MEDS: METOPROLOL SUCCINATE 25 MG TAB.SR.24H PO SCH (10:21)
[2020-04-16] MEDS: SENNOSIDES/DOCUSATE 8.6-50 MG 1 EACH TABLET PO SCH (10:22)
[2020-04-16] MEDS: PANTOPRAZOLE SODIUM 40 MG PACKET.DR NG SCH (10:24)
[2020-04-16] MEDS: INSULIN LISPRO 100 UNIT/ML 3 ML VIAL SUBCUT SCH ×4 (10:27→22:00)
[2020-04-16] MEDS: LACTULOSE SYRUP 20 GM/30 ML UDCUP PO SCH ×2 (10:28→22:00)
[2020-04-16] MEDS: INSULIN GLARGINE,HUM.REC.ANLOG 1,000 UNIT/10 ML VIAL SUBCUT SCH (10:50)
[2020-04-16] MEDS: ENOXAPARIN SODIUM INJ 40 MG/0.4 ML DISP.SYRIN SUBCUT SCH (10:50)
--- NOTE | 2020-04-16 16:14 | PDOC PROGRESS REPORT ---
Subjective Progress Note for:: 04/16/20 Subjective:: The patient is upset over last week. He had a third modified barium swallow and has been placed on pure with nectar thick liquids. Despite this he continues to have his friend Ishmael bring him food in. He was having [place] food yesterday I believe with food being aspirated from the tracheostomy tube. Reason For Visit: HYPOXEMIC RESPIRATORY FAILURE, HEMODYNAMIC Physical Exam Vital Signs: Temp Pulse Resp BP Pulse Ox 97.7 F 82 16 118/69 97 04/16/20 10:00 04/16/20 07:00 04/15/20 22:50 04/15/20 22:50 04/16/20 08:00 Intake & Output 04/15/20 04/16/20 04/17/20 06:59 06:59 06:59 Intake Total 650 340 Output Total 1000 1150 Balance -350 -810 Weight 68.2 kg 70.1 kg General appearance: PRESENT: no acute distress, thin Ear exam: PRESENT: normal external ear exam. ABSENT: bleeding, drainage Mouth exam: PRESENT: moist, tongue midline Teeth exam: PRESENT: poor dentation Neck exam: PRESENT: tracheostomy. ABSENT: carotid bruit, JVD, lymphadenopathy Respiratory exam: PRESENT: prolonged expiratory phas, rhonchi - right side, symmetrical, unlabored. ABSENT: accessory muscle use, rales, tachypnea, wheezes Cardiovascular exam: PRESENT: RRR, +S1, +S2. ABSENT: bradycardia, diastolic murmur, irregular rhythm, systolic murmur, tachycardia GI/Abdominal exam: PRESENT: normal bowel sounds, soft. ABSENT: distended, guarding, tenderness Rectal exam: PRESENT: deferred Neurological exam: PRESENT: alert, awake, oriented to person, oriented to place, oriented to time, oriented to situation, CN II-XII grossly intact. ABSENT: altered Psychiatric exam: PRESENT: agitated, appropriate affect. ABSENT: anxious Focused psych exam: ABSENT: delusional, paranoid, restlessness Skin exam: PRESENT: dry, pallor, warm Results Laboratory Results: 04/14/20 09:51 04/14/20 09:51 01/24/20 01/24/20 01/24/20 00:03 00:03 04:20 Creatine Kinase 80 CK-MB (CK-2) 0.63 Troponin I 0.132 0.133 NT-Pro-B Natriuret Pep 44102 H 01/24/20 01/24/20 01/24/20 10:43 17:19 23:06 Creatine Kinase CK-MB (CK-2) Troponin I 0.114 0.079 0.075 NT-Pro-B Natriuret Pep 15897 H 01/30/20 01/31/20 02/01/20 03:45 05:39 06:14 Creatine Kinase CK-MB (CK-2) Troponin I NT-Pro-B Natriuret Pep 64784 H 64296 H 86771 H 02/02/20 02/27/20 02/27/20 04:24 08:12 08:12 Creatine Kinase 33 L CK-MB (CK-2) 2.16 Troponin I 0.013 NT-Pro-B Natriuret Pep 12784 H 02/27/20 02/28/20 02/29/20 08:12 05:44 05:35 Creatine Kinase CK-MB (CK-2) Troponin I NT-Pro-B Natriuret Pep 76424 H 65744 H 50548 H 03/02/20 03/03/20 03/11/20 05:44 05:00 04:33 Creatine Kinase CK-MB (CK-2) Troponin I NT-Pro-B Natriuret Pep 65081 H 38027 H 80717 H 03/13/20 03/15/20 03/25/20 08:40 08:44 08:40 Creatine Kinase CK-MB (CK-2) Troponin I 0.020 NT-Pro-B Natriuret Pep 02211 H 68836 H Impressions: Chest X-Ray 03/30/20 00:00 IMPRESSION: Worsening sepsis or edema. KUB X-Ray 03/31/20 00:00 IMPRESSION: Status post placement of enteric tube with distal tip in the expected location of the stomach. Modified Barium Swallow 04/10/20 09:58 IMPRESSION: TRACHEAL ASPIRATION WITH THIN BARIUM. PLEASE SEE SPEECH PATHOLOGIST REPORT FOR OTHER FINDINGS AND RECOMMENDATIONS. Assessment and Plan - Diagnosis (1) Acute respiratory failure due to severe acute respiratory syndrome coronavirus 2 (SARS-CoV-2) infection Is this a current diagnosis for this admission?: Yes Plan: Acute respiratory failure has resolved. - Significant hypoxic/hypercarbic respiratory failure secondary to COVID-19 pneumonia. - Repeat COVID-19 test on 03/04/2020 showed was negative. Infection is likely resolved. - Required prolonged intubation and mechanical ventilation and eventually had to get Tracheostomy done on 03/14/2020 by ENT. - would continue with O2 support with trach collar and bipap PRN Maintaining oxygen saturations of 98% on trach collar 6 L/min; FiO2 35%. 04/16/2020-still on trach collar 6 L. Consider capping the trach and trialing nasal cannula oxygen. (2) Acute respiratory failure with hypoxia and hypercapnia Is this a current diagnosis for this admission?: Yes Plan: 04/16/2020-currently on nasal cannula. Nebulizers and steroids as above. Decrease Decadron slightly to 3 mg every 12. Continue to slowly taper steroids. Attempt nasal cannula oxygen as above. The patient has been tolerating a #8 cuffless trach for the last week. The next up will be to downsize him to a cuffless #6 with a goal towards decannulation. I have asked nursing to institute more trials with his current tracheostomy capped. (3) Acute kidney injury superimposed on chronic kidney disease Is this a current diagnosis for this admission?: Yes Plan: Resolved GFR is currently greater than 60. Continue to monitor. (4) Acute metabolic encephalopathy Is this a current diagnosis for this admission?: Yes Plan: Resolved. Secondary to #1 (5) Acute worsening of stage 4 chronic kidney disease Is this a current diagnosis for this admission?: Yes Plan: Resolved. GFR 50. 04/16/2020-GFR is now greater than 60. (6) Severe sepsis without septic shock Is this a current diagnosis for this admission?: Yes Plan: Secondary to COVID pneumonia. Resolved (7) Leukocytosis Qualifiers: Leukocytosis type: unspecified Qualified Code(s): D72.829 - Elevated white blood cell count, unspecified Is this a current diagnosis for this admission?: Yes Plan: Resolved. 04/16/2020 -last CBC revealed normal white blood cell count. Check labs once or twice per week. (8) GI bleed not requiring more than 4 units of blood in 24 hours, ICU, or surgery Is this a current diagnosis for this admission?: Yes Plan: Guaiac positive stool. Will need to monitor for increased blood loss. Hgb overall stable. Hemoglobin remained stable. 04/16/2020-last hemoglobin checked was 8.1. I will recheck blood work this week to see if it is stable, improving or declining. (9) Hypomagnesemia Is this a current diagnosis for this admission?: Yes Plan: 04/16/2020-as of April 14 magnesium was normal. Continue to monitor intermittently. 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 Records indicate inconsistent work with physical therapy. With his significant weakness consider short-term rehab. - Time Time Spent with patient: 15-24 minutes Medications reviewed and adjusted accordingly: Yes Anticipated Discharge Disposition: [facility] Facility Anticipated Discharge Timeframe: Unknown
[2020-04-16 23:38] LABS: APPEARANCE,URINE CLEAR; BILIRUBIN,URINE NEGATIVE (NEGATIVE); COLOR,URINE YELLOW; GLUCOSE, URINE NEGATIVE (NEGATIVE); KETONES,URINE NEGATIVE (NEGATIVE); LEUKOCYTE ESTERASE,URINE NEGATIVE (NEGATIVE); NITRITE,URINE NEGATIVE (NEGATIVE); PROTEIN,URINE 30 mg/dL (NEGATIVE); URINE SPECIFIC GRAVITY 1.011; UROBILINOGEN,URINE NEGATIVE mg/dL (<2.0)
[2020-04-17] MEDS: LACTULOSE SYRUP 20 GM/30 ML UDCUP PO SCH ×3 (10:13→22:39)
[2020-04-17] MEDS: FUROSEMIDE 20 MG TABLET PO SCH (10:13)
[2020-04-17] MEDS: THIAMINE HCL 100 MG TABLET PO SCH (10:13)
[2020-04-17] MEDS: SENNOSIDES/DOCUSATE 8.6-50 MG 1 EACH TABLET PO SCH ×2 (10:13→11:36)
[2020-04-17] MEDS: LISINOPRIL 5 MG TABLET PO SCH ×2 (10:13→22:39)
[2020-04-17] MEDS: METOPROLOL SUCCINATE 25 MG TAB.SR.24H PO SCH (10:13)
[2020-04-17] MEDS: PANTOPRAZOLE SODIUM 40 MG PACKET.DR NG SCH ×2 (10:13→11:38)
[2020-04-17] MEDS: ENOXAPARIN SODIUM INJ 40 MG/0.4 ML DISP.SYRIN SUBCUT SCH (10:14)
[2020-04-17] MEDS: INSULIN LISPRO 100 UNIT/ML 3 ML VIAL SUBCUT SCH ×3 (10:45→17:39)
[2020-04-17] MEDS: DIPHENHYDRAMINE HCL 50 MG/ML VIAL IV PRN ×3 (11:15→22:36)
[2020-04-17] MEDS: OXYCODONE-ACETAMINOPHEN 5-325 MG TABLET PO PRN ×3 (11:15→22:37)
[2020-04-17] MEDS: OXYCODONE HCL IR 5 MG TABLET PO PRN ×3 (11:15→22:37)
[2020-04-17] MEDS: INSULIN GLARGINE,HUM.REC.ANLOG 1,000 UNIT/10 ML VIAL SUBCUT SCH (12:48)
[2020-04-17] MEDS: ONDANSETRON HCL INJ/PF 4 MG/2 ML SDV IV PRN (14:04)
--- NOTE | 2020-04-17 16:04 | PDOC PROGRESS REPORT ---
Subjective Progress Note for:: 04/17/20 Subjective:: Physical therapy has agreed to reattempt working with the patient. There has been issues that the patient feels are not his fault with regard to participating in therapy, treatment of nursing and following medical recommendations. At the time of this encounter physical therapy has already been in to see the patient. The patient is anxious to continue/proceed to a regular diet. He in fact has been eating regular food that is brought into him from the outside. Nursing reports ETT suctioning returns foodstuffs. Reason For Visit: HYPOXEMIC RESPIRATORY FAILURE, HEMODYNAMIC Physical Exam Vital Signs: Temp Pulse Resp BP Pulse Ox 98.0 F 93 16 100/61 95 04/17/20 11:06 04/17/20 11:06 04/17/20 11:06 04/17/20 11:06 04/17/20 12:00 Intake & Output 04/16/20 04/17/20 04/18/20 06:59 06:59 06:59 Intake Total 340 1437 740 Output Total 1150 700 Balance -810 737 740 Weight 70.1 kg 70.1 kg General appearance: PRESENT: no acute distress, cooperative, thin Head exam: PRESENT: atraumatic, normocephalic Eye exam: PRESENT: conjunctiva pale. ABSENT: scleral icterus Ear exam: PRESENT: normal external ear exam. ABSENT: bleeding, drainage Mouth exam: PRESENT: moist, tongue midline Neck exam: PRESENT: tracheostomy. ABSENT: carotid bruit, JVD, lymphadenopathy Respiratory exam: PRESENT: rhonchi - On the right, symmetrical, unlabored, other. ABSENT: rales, tachypnea, wheezes Cardiovascular exam: PRESENT: RRR, +S1, +S2. ABSENT: bradycardia, diastolic murmur, irregular rhythm, systolic murmur, tachycardia GI/Abdominal exam: PRESENT: normal bowel sounds, soft. ABSENT: distended, guarding, tenderness Rectal exam: PRESENT: deferred Gentrourinary exam: PRESENT: indwelling catheter Extremities exam: ABSENT: pedal edema Musculoskeletal exam: PRESENT: deformity - Postoperative changes right knee with joint swelling, other - Decreased muscle mass Neurological exam: PRESENT: alert, awake, oriented to person, oriented to place, oriented to situation, CN II-XII grossly intact. ABSENT: altered Psychiatric exam: PRESENT: appropriate affect. ABSENT: agitated, anxious Focused psych exam: ABSENT: delusional, paranoid Skin exam: PRESENT: dry, pallor, warm. ABSENT: rash Results Laboratory Results: 04/14/20 09:51 04/14/20 09:51 04/16/20 22:45 Urine Color YELLOW Urine Appearance CLEAR Urine pH 5.0 Ur Specific Mccune 1.011 Urine Protein 30 H Urine Glucose (UA) NEGATIVE Urine Ketones NEGATIVE Urine Blood SMALL H Urine Nitrite NEGATIVE Ur Leukocyte Esterase NEGATIVE Urine WBC (Auto) 7 Urine RBC (Auto) 1 01/24/20 01/24/20 01/24/20 00:03 00:03 04:20 Creatine Kinase 80 CK-MB (CK-2) 0.63 Troponin I 0.132 0.133 NT-Pro-B Natriuret Pep 81393 H 01/24/20 01/24/20 01/24/20 10:43 17:19 23:06 Creatine Kinase CK-MB (CK-2) Troponin I 0.114 0.079 0.075 NT-Pro-B Natriuret Pep 96780 H 01/30/20 01/31/20 02/01/20 03:45 05:39 06:14 Creatine Kinase CK-MB (CK-2) Troponin I NT-Pro-B Natriuret Pep 90137 H 99306 H 46399 H 02/02/20 02/27/20 02/27/20 04:24 08:12 08:12 Creatine Kinase 33 L CK-MB (CK-2) 2.16 Troponin I 0.013 NT-Pro-B Natriuret Pep 68102 H 02/27/20 02/28/20 02/29/20 08:12 05:44 05:35 Creatine Kinase CK-MB (CK-2) Troponin I NT-Pro-B Natriuret Pep 59963 H 01142 H 10938 H 03/02/20 03/03/20 03/11/20 05:44 05:00 04:33 Creatine Kinase CK-MB (CK-2) Troponin I NT-Pro-B Natriuret Pep 72242 H 68560 H 98654 H 03/13/20 03/15/20 03/25/20 08:40 08:44 08:40 Creatine Kinase CK-MB (CK-2) Troponin I 0.020 NT-Pro-B Natriuret Pep 82535 H 59289 H Impressions: Chest X-Ray 03/30/20 00:00 IMPRESSION: Worsening sepsis or edema. KUB X-Ray 03/31/20 00:00 IMPRESSION: Status post placement of enteric tube with distal tip in the expected location of the stomach. Modified Barium Swallow 04/10/20 09:58 IMPRESSION: TRACHEAL ASPIRATION WITH THIN BARIUM. PLEASE SEE SPEECH PATHOLOGIST REPORT FOR OTHER FINDINGS AND RECOMMENDATIONS. Assessment and Plan - Diagnosis (1) Acute respiratory failure due to severe acute respiratory syndrome coronavirus 2 (SARS-CoV-2) infection Is this a current diagnosis for this admission?: Yes Plan: Acute respiratory failure has resolved. - Significant hypoxic/hypercarbic respiratory failure secondary to COVID-19 pneumonia. - Repeat COVID-19 test on 03/04/2020 showed was negative. Infection is likely resolved. - Required prolonged intubation and mechanical ventilation and eventually had to get Tracheostomy done on 03/14/2020 by ENT. - would continue with O2 support with trach collar and bipap PRN Maintaining oxygen saturations of 98% on trach collar 6 L/min; FiO2 35%. 04/16/2020-still on trach collar 6 L. Consider capping the trach and trialing nasal cannula oxygen. 04/17/2020-reiterated capping trials with nasal cannula. (2) Acute respiratory failure with hypoxia and hypercapnia Is this a current diagnosis for this admission?: Yes Plan: 04/16/2020-currently on nasal cannula. Nebulizers and steroids as above. Decrease Decadron slightly to 3 mg every 12. Continue to slowly taper steroids. Attempt nasal cannula oxygen as above. The patient has been tolerating a #8 cuffless trach for the last week. The next up will be to downsize him to a cuffless #6 with a goal towards decannulation. I have asked nursing to institute more trials with his current tracheostomy capped. 04/17/2020-as above (3) Acute kidney injury superimposed on chronic kidney disease Is this a current diagnosis for this admission?: Yes Plan: Resolved 04/16/2020-GFR is currently greater than 60. Continue to monitor. 04/17/2020-check labs once or twice per week (4) Acute metabolic encephalopathy Is this a current diagnosis for this admission?: Yes Plan: Resolved. Secondary to #1 (5) Acute worsening of stage 4 chronic kidney disease Is this a current diagnosis for this admission?: Yes Plan: Resolved. GFR 50. 04/16/2020-GFR is now greater than 60. (6) Severe sepsis without septic shock Is this a current diagnosis for this admission?: Yes Plan: Secondary to COVID pneumonia. Resolved (7) Leukocytosis Qualifiers: Leukocytosis type: unspecified Qualified Code(s): D72.829 - Elevated white blood cell count, unspecified Is this a current diagnosis for this admission?: Yes Plan: Resolved. 04/16/2020 -last CBC revealed normal white blood cell count. Check labs once or twice per week. (8) GI bleed not requiring more than 4 units of blood in 24 hours, ICU, or surgery Is this a current diagnosis for this admission?: Yes Plan: Guaiac positive stool. Will need to monitor for increased blood loss. Hgb overall stable. Hemoglobin remained stable. 04/16/2020-last hemoglobin checked was 8.1. I will recheck blood work this week to see if it is stable, improving or declining. 04/17/2020-labs ordered for tomorrow (9) Hypomagnesemia Is this a current diagnosis for this admission?: Yes Plan: 04/16/2020-as of April 14 magnesium was normal. Continue to monitor intermit tently. 04/17/2020-labs ordered for tomorrow (10) Critical illness myopathy Is this a current diagnosis for this admission?: Yes Plan: 04/16/2020-the patient exhibits profound weakness. Records indicate inconsistent work with physical therapy. With his significant weakness consider short-term rehab. 04/17/2020-physical therapy has agreed to work with the patient again. He was seen earlier today. (11) Dysphagia Qualifiers: Dysphagia type: oropharyngeal phase Qualified Code(s): R13.12 - Dysphagia, oropharyngeal phase Is this a current diagnosis for this admission?: Yes Plan: - has failed swallow eval 03/19/2020 and again on 03/27/2020 - need for PEG tube discussed with the patient several times but he has repeatedly refused - I spoke to him today as well regarding NG tube and feeding and he also refused this despite extensive explanation. - currently just on D5NS - if he continues to refuse PEG and NG tube feeding. 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 - continue speech and swallow rehab. - plan to continue D5 for now and talk to him again tomorrow - hypoglycemia protocol- accuchecks 04/17/2020-patient had a third modified barium swallow last week. Still showed aspiration. Despite this and despite our recommendations he continues to eat r egular food. I have had several discussions with him regarding the risks. He appears to understand the risks. It is very difficult to accommodate his noncompliance with a desire for full resuscitation when he is creating significant risk on his own. - Time Time Spent with patient: 25-34 minutes Medications reviewed and adjusted accordingly: Yes Anticipated Discharge Disposition: [facility] Facility Anticipated Discharge Timeframe: Unknown
[2020-04-17] MEDS: TRAZODONE HCL 50 MG TABLET NG PRN (22:37)
[2020-04-18] MEDS: INSULIN LISPRO 100 UNIT/ML 3 ML VIAL SUBCUT SCH ×5 (00:09→21:43)
[2020-04-18] MEDS: DIPHENHYDRAMINE HCL 50 MG/ML VIAL IV PRN ×4 (05:34→23:21)
[2020-04-18] MEDS: OXYCODONE HCL IR 5 MG TABLET PO PRN ×4 (05:35→23:22)
[2020-04-18] MEDS: OXYCODONE-ACETAMINOPHEN 5-325 MG TABLET PO PRN ×4 (05:35→23:22)
[2020-04-18] MEDS: LACTULOSE SYRUP 20 GM/30 ML UDCUP PO SCH ×2 (10:02→21:43)
[2020-04-18] MEDS: SENNOSIDES/DOCUSATE 8.6-50 MG 1 EACH TABLET PO SCH (10:03)
[2020-04-18] MEDS: PANTOPRAZOLE SODIUM 40 MG PACKET.DR NG SCH (10:03)
[2020-04-18] MEDS: INSULIN GLARGINE,HUM.REC.ANLOG 1,000 UNIT/10 ML VIAL SUBCUT SCH (10:13)
[2020-04-18] MEDS: THIAMINE HCL 100 MG TABLET PO SCH (10:14)
[2020-04-18] MEDS: METOPROLOL SUCCINATE 25 MG TAB.SR.24H PO SCH (10:14)
[2020-04-18] MEDS: FUROSEMIDE 20 MG TABLET PO SCH (10:14)
[2020-04-18] MEDS: LISINOPRIL 5 MG TABLET PO SCH ×2 (10:14→21:44)
[2020-04-18] MEDS: ENOXAPARIN SODIUM INJ 40 MG/0.4 ML DISP.SYRIN SUBCUT SCH (10:15)
[2020-04-18] MEDS: SCOPOLAMINE HYDROBROMIDE 1.5 MG PATCH.TD72 TD SCH (10:18)
--- NOTE | 2020-04-18 12:31 | PDOC PROGRESS REPORT ---
Subjective Progress Note for:: 04/18/20 Subjective:: Patient is actually sitting there eating pizza. Minimal coughing noted. He has nasal cannula in place and the trach has been capped. His white blood cell count is now normal. Reason For Visit: HYPOXEMIC RESPIRATORY FAILURE, HEMODYNAMIC Physical Exam Vital Signs: Temp Pulse Resp BP Pulse Ox 97.6 F 78 17 117/57 L 99 04/18/20 09:55 04/18/20 09:55 04/18/20 09:55 04/18/20 09:55 04/18/20 11:33 Intake & Output 04/17/20 04/18/20 04/19/20 06:59 06:59 06:59 Intake Total 1437 740 Output Total 700 1175 Balance 737 -435 Weight 70.1 kg 63.7 kg General appearance: PRESENT: no acute distress, cooperative, thin, well- developed Head exam: PRESENT: atraumatic, normocephalic Eye exam: PRESENT: conjunctiva pale. ABSENT: conjunctival injection Ear exam: PRESENT: normal external ear exam. ABSENT: bleeding, drainage Mouth exam: PRESENT: moist, tongue midline Neck exam: PRESENT: tracheostomy. ABSENT: carotid bruit, JVD, lymphadenopathy Respiratory exam: PRESENT: rhonchi - Still present on the right but decreased over the last several days, symmetrical, unlabored. ABSENT: accessory muscle use, chest wall tenderness, prolonged expiratory phas, rales, tachypnea, wheezes Cardiovascular exam: PRESENT: RRR, +S1, +S2. ABSENT: bradycardia, diastolic murmur, irregular rhythm, systolic murmur, tachycardia GI/Abdominal exam: PRESENT: normal bowel sounds, soft. ABSENT: distended, guarding, tenderness Rectal exam: PRESENT: deferred Gentrourinary exam: PRESENT: indwelling catheter Extremities exam: ABSENT: pedal edema Musculoskeletal exam: PRESENT: deformity - Enlarged right knee secondary to previous surgery. Chronic., other - Decreased muscle mass. ABSENT: dislocation, normal inspection Neurological exam: PRESENT: alert, awake, oriented to person, oriented to place, oriented to time, oriented to situation, CN II-XII grossly intact. ABSENT: altered Psychiatric exam: PRESENT: appropriate affect. ABSENT: agitated, anxious Focused psych exam: ABSENT: delusional, paranoid, restlessness Skin exam: PRESENT: dry, pallor, warm. ABSENT: rash Results Laboratory Results: 04/14/20 09:51 04/14/20 09:51 01/24/20 01/24/20 01/24/20 00:03 00:03 04:20 Creatine Kinase 80 CK-MB (CK-2) 0.63 Troponin I 0.132 0.133 NT-Pro-B Natriuret Pep 13348 H 01/24/20 01/24/20 01/24/20 10:43 17:19 23:06 Creatine Kinase CK-MB (CK-2) Troponin I 0.114 0.079 0.075 NT-Pro-B Natriuret Pep 36814 H 01/30/20 01/31/20 02/01/20 03:45 05:39 06:14 Creatine Kinase CK-MB (CK-2) Troponin I NT-Pro-B Natriuret Pep 77538 H 46557 H 85116 H 02/02/20 02/27/20 02/27/20 04:24 08:12 08:12 Creatine Kinase 33 L CK-MB (CK-2) 2.16 Troponin I 0.013 NT-Pro-B Natriuret Pep 71022 H 02/27/20 02/28/20 02/29/20 08:12 05:44 05:35 Creatine Kinase CK-MB (CK-2) Troponin I NT-Pro-B Natriuret Pep 75266 H 88515 H 44283 H 03/02/20 03/03/20 03/11/20 05:44 05:00 04:33 Creatine Kinase CK-MB (CK-2) Troponin I NT-Pro-B Natriuret Pep 83252 H 20858 H 61024 H 03/13/20 03/15/20 03/25/20 08:40 08:44 08:40 Creatine Kinase CK-MB (CK-2) Troponin I 0.020 NT-Pro-B Natriuret Pep 49282 H 61854 H Impressions: Chest X-Ray 03/30/20 00:00 IMPRESSION: Worsening sepsis or edema. KUB X-Ray 03/31/20 00:00 IMPRESSION: Status post placement of enteric tube with distal tip in the expected location of the stomach. Modified Barium Swallow 04/10/20 09:58 IMPRESSION: TRACHEAL ASPIRATION WITH THIN BARIUM. PLEASE SEE SPEECH PATHOLOGIST REPORT FOR OTHER FINDINGS AND RECOMMENDATIONS. Assessment and Plan - Diagnosis (1) Acute respiratory failure due to severe acute respiratory syndrome coronavirus 2 (SARS-CoV-2) infection Is this a current diagnosis for this admission?: Yes Plan: Acute respiratory failure has resolved. - Significant hypoxic/hypercarbic respiratory failure secondary to COVID-19 pneumonia. - Repeat COVID-19 test on 03/04/2020 showed was negative. Infection is likely resolved. - Required prolonged intubation and mechanical ventilation and eventually had to get Tracheostomy done on 03/14/2020 by ENT. - would continue with O2 support with trach collar and bipap PRN Maintaining oxygen saturations of 98% on trach collar 6 L/min; FiO2 35%. 04/16/2020-still on trach collar 6 L. Consider capping the trach and trialing nasal cannula oxygen. 04/17/2020-reiterated capping trials with nasal cannula. 04/18/2020-with tracheostomy capped the patient only requires 2 L nasal cannula to maintain saturations greater than 90%. (2) Acute respiratory failure with hypoxia and hypercapnia Is this a current diagnosis for this admission?: Yes Plan: 04/16/2020-currently on nasal cannula. Nebulizers and steroids as above. Decrease Decadron slightly to 3 mg every 12. Continue to slowly taper steroids. Attempt nasal cannula oxygen as above. The patient has been tolerating a #8 cuffless trach for the last week. The next up will be to downsize him to a cuffless #6 with a goal towards decannulation. I have asked nursing to institute more trials with his current tracheostomy capped. 04/17/2020-as above 04/18/2020-continue to progress to decannulation. Oxygen requirements are only 2 L now. Goal is room air. (3) Acute kidney injury superimposed on chronic kidney disease Is this a current diagnosis for this admission?: Yes Plan: Resolved 04/16/2020-GFR is currently greater than 60. Continue to monitor. 04/17/2020-check labs once or twice per week 04/18/2020-last blood work revealed normal GFR greater than 60. We will recheck serum chemistries in 1 to 2 days. (4) Acute metabolic encephalopathy Is this a current diagnosis for this admission?: Yes Plan: Resolved. Secondary to #1 04/18/2020-the acute metabolic encephalopathy has resolved. Every once in a while the patient's focus does stray. It is possible he suffered an hypoxic injury with the 5 intubation episodes. We will continue to monitor. At this point I do not feel a formal neurocognitive work-up is required but we will continue to monitor closely. (5) Acute worsening of stage 4 chronic kidney disease Is this a current diagnosis for this admission?: Yes Plan: Resolved. GFR 50. 04/16/2020-GFR is now greater than 60. (6) Severe sepsis without septic shock Is this a current diagnosis for this admission?: Yes Plan: Secondary to COVID pneumonia. Resolved (7) Leukocytosis Qualifiers: Leukocytosis type: unspecified Qualified Code(s): D72.829 - Elevated white blood cell count, unspecified Is this a current diagnosis for this admission?: Yes Plan: Resolved. 04/16/2020 -last CBC revealed normal white blood cell count. Check labs once or twice per week. 04/18/2020-the patient's white blood cell count on April 10 was 17.8. I did recheck a CBC today and the white blood cell count is 9.0. This is after the patient has been taking oral nutrition with episodes of aspiration. We will check laboratory studies once or twice a week. (8) GI bleed not requiring more than 4 units of blood in 24 hours, ICU, or surgery Is this a current diagnosis for this admission?: Yes Plan: Guaiac positive stool. Will need to monitor for increased blood loss. Hgb overall stable. Hemoglobin remained stable. 04/16/2020-last hemoglobin checked was 8.1. I will recheck blood work this week to see if it is stable, improving or declining. 04/17/2020-labs ordered for tomorrow 04/18/2020-hemoglobin is 8.1. We will continue to monitor. No need for transfusion at this time. No evidence of acute bleeding. (9) Hypomagnesemia Is this a current diagnosis for this admission?: Yes Plan: 04/16/2020-as of April 14 magnesium was normal. Continue to monitor intermittently. 04/17/2020-labs ordered for tomorrow 04/18/2020-chemistries unable to be drawn. Will reorder laboratory studies. 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 Records indicate inconsistent work with physical therapy. With his significant weakness consider short-term rehab. 04/17/2020-physical therapy has agreed to work with the patient again. He was seen earlier today. 04/18/2020-the patient has worked with physical therapy 2 days in a row. Today, in fact, he was in a wheelchair out in the hallway. Hopefully these positive encounters will encourage him to continue to work with therapy as he would benef it greatly. (11) Dysphagia Qualifiers: Dysphagia type: oropharyngeal phase Qualified Code(s): R13.12 - Dysphagia, oropharyngeal phase Is this a current diagnosis for this admission?: Yes Plan: - has failed swallow eval 03/19/2020 and again on 03/27/2020 - need for PEG tube discussed with the patient several times but he has repeatedly refused - I spoke to him today as well regarding NG tube and feeding and he also refused this despite extensive explanation. - currently just on D5NS - if he continues to refuse PEG and NG tube feeding. he would need TPN which would be a temporary measure in terms of nutrition director long term care. - continue speech and swallow rehab. - plan to continue D5 for now and talk to him again tomorrow - hypoglycemia protocol- accuchecks 04/17/2020-patient had a third modified barium swallow last week. Still showed aspiration. Despite this and despite our recommendations he continues to eat regular food. I have had several discussions with him regarding the risks. He appears to understand the risks. It is very difficult to accommodate his non compliance with a desire for full resuscitation when he is creating significant risk on his own. 04/18/2020-the patient is sitting eating pizza. He is on a pured nectar thick diet however he does have food brought in from outside and in fact eats whatever he wants. It is very surprising that he has not had a recurrent pneumonia. His white blood cell count in fact was normal today and he has been afebrile. We will continue to monitor very closely. I did discuss the case with speech therapy. It is possible that if I can get him decannulated it may also help improve his swallow. - Time Time Spent with patient: 15-24 minutes Medications reviewed and adjusted accordingly: Yes Anticipated Discharge Disposition: [facility] Anticipated Discharge Timeframe: Unknown
--- NOTE | 2020-04-18 14:04 | Progress Note ---
Provider Note Provider Note: 04/18/2020 Tracheostomy change The patient has been doing very well with a #8 fenestrated cuffless Shiley. He has been capped all of today and on 2 L nasal cannula maintains oxygen saturation greater than 90%. Because he has been stable I remove the #8 cuffless trach. I cleaned the stoma thoroughly. I then placed a cuffless #6 Shiley in the trachea. This was secured. The inner cannula was placed. A drain sponge was placed behind the trach. The patient coughed a bit once the trach was in. At that point I covered the trach with gauze and asked him to cough strongly. The patient has a very strong cough. He actually was able to clear secretions. He coughed up quite a bit of whitaker mucus through the tracheostomy tube. I kept him coughing until there was no further production of mucus. I asked the nurse to place the cap on the tracheostomy in about 1 hour and continue nasal cannula oxygen. The patient should tolerate capping consistently. If the patient does not fact tolerate capping through the weekend consider decannulation next week. I also explained that having the patient cough is very important. He needs to develop a very strong cough. I showed the nurse how to cover the trach with gauze so was not to have sputum fly all over. I also explained that any sputum close to the opening can sometimes be removed with a Yankauer suction catheter just at the edge of the trach. If the patient has a strong cough he may possibly able to minimize deep suctioning. During the exchange the stoma was examined and clean. There is good healthy tissue. No friable tissue, bleeding or necrosis. There was no foul odor to any of the mucus.
[2020-04-18] MEDS: TRAZODONE HCL 50 MG TABLET NG PRN (23:22)
[2020-04-19] MEDS: OXYCODONE-ACETAMINOPHEN 5-325 MG TABLET PO PRN ×2 (04:43→08:50)
[2020-04-19] MEDS: OXYCODONE HCL IR 5 MG TABLET PO PRN ×2 (04:44→08:50)
[2020-04-19] MEDS: DIPHENHYDRAMINE HCL 50 MG/ML VIAL IV PRN ×2 (05:30→11:32)
[2020-04-19] MEDS: INSULIN LISPRO 100 UNIT/ML 3 ML VIAL SUBCUT SCH ×2 (08:37→11:32)
[2020-04-19] MEDS: LACTULOSE SYRUP 20 GM/30 ML UDCUP PO SCH (10:00)
[2020-04-19] MEDS: INSULIN GLARGINE,HUM.REC.ANLOG 1,000 UNIT/10 ML VIAL SUBCUT SCH (10:00)
[2020-04-19] MEDS: SENNOSIDES/DOCUSATE 8.6-50 MG 1 EACH TABLET PO SCH (10:01)
[2020-04-19] MEDS: PANTOPRAZOLE SODIUM 40 MG PACKET.DR NG SCH (10:02)
[2020-04-19] MEDS: FUROSEMIDE 20 MG TABLET PO SCH (10:02)
[2020-04-19] MEDS: LISINOPRIL 5 MG TABLET PO SCH (10:02)
[2020-04-19] MEDS: ENOXAPARIN SODIUM INJ 40 MG/0.4 ML DISP.SYRIN SUBCUT SCH (10:02)
[2020-04-19] MEDS: THIAMINE HCL 100 MG TABLET PO SCH (10:03)
[2020-04-19] MEDS: METOPROLOL SUCCINATE 25 MG TAB.SR.24H PO SCH (10:03)
--- NOTE | 2020-04-19 12:19 | PDOC TRANSFER SUMMARY ---
Impression - Admit/DC Date/PCP Admission Date/Primary Care Provider: 01/24/20 08:20 GOLD ELENA Discharge Date: 04/19/20 - Discharge Diagnosis (1) Acute respiratory failure due to severe acute respiratory syndrome coronav irus 2 (SARS-CoV-2) infection Is this a current diagnosis for this admission?: Yes (2) Acute hypoxemic respiratory failure Is this a current diagnosis for this admission?: Yes (3) Acute kidney injury superimposed on chronic kidney disease Is this a current diagnosis for this admission?: Yes (4) Acute metabolic encephalopathy Is this a current diagnosis for this admission?: Yes (5) Acute systolic heart failure Is this a current diagnosis for this admission?: Yes (6) Chronic pain Is this a current diagnosis for this admission?: Yes (7) Critical illness myopathy Is this a current diagnosis for this admission?: Yes (8) Debility Is this a current diagnosis for this admission?: Yes (9) Hypomagnesemia Is this a current diagnosis for this admission?: Yes (10) Tracheostomy in place Is this a current diagnosis for this admission?: Yes (11) Hypertension Is this a current diagnosis for this admission?: Yes - Additional Information Resuscitation Status: Full Code Discharge Diet: Diabetic Discharge Activity: Energy Conservation, Slowly Increase Activity, Supervised Activity Referrals: KWAN ELLSWORTH FNP-C [Primary Care Provider] - Follow up as needed Prescriptions: Oxycodone HCl/Acetaminophen [Percocet 5-325 mg Tablet] 1 tab PO Q4HP PRN #14 tablet PRN Reason: Home Medications: Furosemide [Lasix 20 mg Tablet] 20 mg PO DAILY tablet 04/19/20 Insulin Glargine,Hum.rec.anlog [Lantus Insulin 100 Unit/1 ml 10 ml] 5 unit SUBCUT DAILY unit 04/19/20 Insulin Lispro [Humalog Insulin (Lispro) 100 unit/mL] 0 - 12 unit SUBCUT ACHS unit 04/19/20 Lactulose [Cephulac Syrup 20 gm/30 ml Udcup] 10 gm PO Q12 udc 04/19/20 Lisinopril [Prinivil 5 mg Tablet] 2.5 mg PO Q12 tablet 04/19/20 Metoprolol Succinate [Toprol Xl 25 mg Tab.sr] 25 mg PO DAILY tab.sr.24h 04/19/20 Oxycodone HCl/Acetaminophen [Percocet 5-325 mg Tablet] 1 tab PO Q4HP PRN #14 tablet 04/19/20 Scopolamine Hydrobromide [Transderm-Scop 1.5 mg Patch] 1 each TD Q3DAYS patch.[id number] 04/19/20 Sennosides/Docusate 8.6-50 mg [Senna Plus Tablet] 2 each PO DAILY tablet 04/19/20 Thiamine HCl [Thiamine 100 mg Tablet] 100 mg PO DAILY tablet 04/19/20 Trazodone HCl [Desyrel 50 mg Tablet] 100 mg NG HSP PRN tablet 04/19/20 History of Present Illiness History of Present Illness: Per CC H&P: "59-year-old male, history of poorly controlled DM 2, HTN, CHF, narcotic dependence from chronic arthritis, CKD recently admitted to [facility] on 01/05/2020 for ZURDO and hyperkalemia and was discharged on 01/11/2020. Patient then returned to the ED on 01/15/2020 and was admitted for nausea vomiting associated with fatigue and dizziness. Troponins were elevated at that time with a proBNP of 29,000. During his hospital stay he was treated for pneumonia and hypoxemia which resolved. He also had a non-ST elevated CT which was thought to be related to demand ischemia in the setting of pneumonia and sepsis with poor clearance of troponins related to his CKD. Baseline creatinine is 3.2. Patient was discharged again on 01/19/2020 and returned to the emergency department on 01/23/2020 complaining of orthostatic hypotension, persistent dizziness, fever and shortness of breath. proBNP was again elevated to 17,700, Creatinine seems to be only mildly elevated from baseline. While in the ED, patient became hypotensive to 90/60 with increased O2 requirements and at one point had become unresponsive. He was placed on BiPAP which improved his respiratory status and he is now more awake and alert. He was given 2 L of LR and started on cefepime and Levaquin. Critical care was consulted to evaluate patient for admission to the intensive care unit. We will admit him to the ICU for further work-up and treatment given his respiratory and hemodynamic instability." Hospital Course Hospital Course: Patient with an extremely prolonged hospital stay with a very complicated clinical course. Patient reportedly failed extubation multiple times, eventually tracheostomy placed and patient transition to trach collar. Patient treated for acute hypercapnic respiratory failure, critical illness vivek yneuropathy, COVID-19 pneumonia later tested -03/04, bacterial pneumonia possibly aspiration, sepsis, ZURDO on CKD, UTI. Transferred out of ICU overnight 03/17. He has tested negative for coronavirus again on April 12. He has been treated for his CHF and is euvolemic. His creatinine has improved substantially. He was on a high level of oxygen requirement but as time has gone on he is down to 2 L per nasal cannula. He recently had his tracheostomy collar change from an 8 to a 6 uncuffed. He has been able to do his own pulmonary toileting. Tracheostomy has been capped and he has been able to eat. He was warned about eating more dense food because of risk of aspiration but yesterday he ordered pizza and ate it without any difficulty. He will need to follow-up with Dr. Tapia, periodically to assess the need for the tracheostomy and hopefully in the future it can be removed altogether. He has been followed by speech therapy, physical therapy, and Occupational Therapy, and a skilled for nursing facility placement for rehab has been recommended. He is being transferred today in stable condition. Physical Exam Vital Signs: Temp Pulse Resp BP Pulse Ox 97.6 F 74 16 104/56 L 99 04/19/20 10:00 04/19/20 07:00 04/18/20 19:19 04/18/20 19:19 04/18/20 19:19 Intake & Output 04/18/20 04/19/20 04/20/20 06:59 06:59 06:59 Intake Total 740 1070 Output Total 1175 750 Balance -435 320 Weight 63.7 kg 63.3 kg General appearance: PRESENT: no acute distress, cooperative, thin, well- developed Head exam: PRESENT: atraumatic, normocephalic Eye exam: PRESENT: conjunctiva pale. ABSENT: conjunctival injection Ear exam: PRESENT: normal external ear exam. ABSENT: bleeding, drainage Mouth exam: PRESENT: moist, tongue midline Neck exam: PRESENT: tracheostomy. ABSENT: carotid bruit, JVD, lymphadenopathy Respiratory exam: PRESENT: rhonchi - Still present on the right but decreased over the last several days, symmetrical, unlabored. ABSENT: accessory muscle use, chest wall tenderness, prolonged expiratory phas, rales, tachypnea, wheezes Cardiovascular exam: PRESENT: RRR, +S1, +S2. ABSENT: bradycardia, diastolic murmur, irregular rhythm, systolic murmur, tachycardia GI/Abdominal exam: PRESENT: normal bowel sounds, soft. ABSENT: distended, guarding, tenderness Rectal exam: PRESENT: deferred Gentrourinary exam: PRESENT: indwelling catheter Extremities exam: ABSENT: pedal edema Musculoskeletal exam: PRESENT: deformity - Enlarged right knee secondary to previous surgery. Chronic., other - Decreased muscle mass. ABSENT: dislocation, normal inspection Neurological exam: PRESENT: alert, awake, oriented to person, oriented to place, oriented to time, oriented to situation, CN II-XII grossly intact. ABSENT: altered Results Laboratory Results: WBC 9.0 10^3/uL (4.0-10.5) 04/14/20 09:51 RBC 2.95 10^6/uL (4.35-5.55) L 04/14/20 09:51 Hgb 8.1 g/dL (13.5-17.0) L 04/14/20 09:51 Hct 25.2 % (37.9-51.0) L 04/14/20 09:51 MCV 85 fl (80-97) 04/14/20 09:51 MCH 27.5 pg (27.0-33.4) 04/14/20 09:51 MCHC 32.2 g/dL (32.0-36.0) 04/14/20 09:51 RDW 18.4 % (11.5-14.0) H 04/14/20 09:51 Plt Count 555 10^3/uL (150-450) H 04/14/20 09:51 Lymph % (Auto) 14.0 % (13-45) 04/14/20 09:51 [place] % (Auto) 12.1 % (3-13) 04/14/20 09:51 Eos % (Auto) 4.0 % (0-6) 04/14/20 09:51 Baso % (Auto) 1.4 % (0-2) 04/14/20 09:51 Reticulocyte # 0.051 10^6/uL (0.028-0.122) 02/12/20 11:04 Absolute Neuts (auto) 6.2 10^3/uL (1.7-8.2) 04/14/20 09:51 Absolute Lymphs (auto) 1.3 10^3/uL (0.5-4.7) 04/14/20 09:51 Absolute Monos (auto) 1.1 10^3/uL (0.1-1.4) 04/14/20 09:51 Absolute Eos (auto) 0.4 10^3/uL (0.0-0.6) 04/14/20 09:51 Absolute Basos (auto) 0.1 10^3/uL (0.0-0.2) 04/14/20 09:51 Total Counted 100 03/21/20 06:22 Seg Neutrophils % 68.5 % (42-78) 04/14/20 09:51 Seg Neuts % (Manual) 90 % (42-78) H 03/21/20 06:22 Band Neutrophils % 1 % (3-5) L 03/20/20 04:00 Lymphocytes % (Manual) 3 % (13-45) L 03/21/20 06:22 Atypical Lymphs % 1 % (0) 03/20/20 04:00 Monocytes % (Manual) 5 % (3-13) 03/21/20 06:22 Eosinophils % (Manual) 1 % (0-6) 03/21/20 06:22 Basophils % (Manual) 0 % (0-2) 03/21/20 06:22 Metamyelocytes % 1 % (0-1) 03/21/20 06:22 Myelocytes % 1 % (0) H 03/13/20 08:40 Promyelocytes % 1 % (0) H 03/13/20 08:40 Abs Neuts (Manual) 20.7 10^3/uL (1.7-8.2) H 03/21/20 06:22 Abs Lymphs (Manual) 0.7 10^3/uL (0.5-4.7) 03/21/20 06:22 Abs Monocytes (Manual) 1.1 10^3/uL (0.1-1.4) 03/21/20 06:22 Absolute Eos (Manual) 0.2 10^3/uL (0.0-0.6) 03/21/20 06:22 Abs Basophils (Manual) 0.0 10^3/uL (0.0-0.2) 03/21/20 06:22 Nucleated RBCs 2 /100 WBC (0) 02/17/20 04:59 Toxic Granulation SLIGHT 03/21/20 06:22 Toxic Vacuolation PRESENT 03/13/20 08:40 Platelet Estimate Cancelled 04/09/20 06:26 Clumped Platelets PRESENT 03/20/20 04:00 Giant Platelets PRESENT 03/13/20 08:40 Platelet Comment INCREASED 03/21/20 06:22 Polychromasia 1+ 03/21/20 06:22 Hypochromasia SLIGHT 03/14/20 03:58 Poikilocytosis 1+ 03/19/20 04:23 Basophilic Stippling PRESENT 03/21/20 06:22 Anisocytosis 1+ 03/21/20 06:22 Target Cells SLIGHT 02/07/20 06:02 Tear Drop Cells 1+ 03/19/20 04:23 Ovalocytes SLIGHT 03/20/20 04:00 Shohola Cells SLIGHT 01/28/20 00:25 Schistocytes SLIGHT 03/16/20 21:25 Retic Count (auto) 2.06 % (0.66-2.85) 02/12/20 11:04 PT 14.3 SEC (11.4-15.4) 03/05/20 07:00 INR 1.08 03/05/20 07:00 APTT 27.5 SEC (23.5-35.8) 02/26/20 22:29 D-Dimer 0.97 ug/mL (0.00-0.50) H 02/26/20 22:29 Carbonic Acid 1.46 mmol/L (1.05-1.35) H 03/29/20 17:00 HCO3/H2CO3 Ratio 23:1 03/29/20 17:00 ABG pH 7.47 (7.35-7.45) H 03/29/20 17:00 ABG pCO2 48.5 mmHg (35-45) H 03/29/20 17:00 ABG pO2 81.8 mmHg (80-100) 03/29/20 17:00 ABG HCO3 34.5 mmol/L (20-24) H 03/29/20 17:00 ABG Total CO2 36.0 mmol/L (23-27) H 03/29/20 17:00 ABG O2 Saturation 96.5 % (94-98) 03/29/20 17:00 ABG Base Excess 9.8 mmol/L 03/29/20 17:00 VBG pH 7.43 (7.30-7.42) H 03/31/20 14:49 VBG pCO2 59.2 mmHg (35-63) 03/31/20 14:49 VBG HCO3 38.8 mmol/L (20-32) H 03/31/20 14:49 VBG Base Excess 12.7 mmol/L 03/31/20 14:49 FiO2 40% 03/29/20 17:00 Sodium 140.9 mmol/L (137-145) 04/14/20 09:51 Potassium 4.1 mmol/L (3.6-5.0) 04/14/20 09:51 Chloride 107 mmol/L (98-107) 04/14/20 09:51 Carbon Dioxide 27 mmol/L (22-30) 04/14/20 09:51 Anion Gap 7 (5-19) 04/14/20 09:51 BUN 22 mg/dL (7-20) H 04/14/20 09:51 Creatinine 0.91 mg/dL (0.52-1.25) 04/14/20 09:51 Est GFR ( Amer) > 60 (>60) 04/14/20 09:51 Est GFR (Non-Af Amer) Cancelled 03/14/20 03:58 Est GFR (MDRD) Non-Af > 60 (>60) 04/14/20 09:51 Glucose 98 mg/dL (75-110) 04/14/20 09:51 POC Glucose 148 mg/dL (70-110) H 04/19/20 11:22 Serum Osmolality 315 mOsm/kg (275-301) H 03/14/20 05:25 Lactic Acid 0.8 mmol/L (0.7-2.1) 03/01/20 03:10 Calcium 8.8 mg/dL (8.4-10.2) 04/14/20 09:51 Ionized Calcium Deisi 1.12 mmol/L (1.14-1.30) L 03/03/20 05:00 Phosphorus 3.3 mg/dL (2.5-4.5) 03/30/20 09:52 Magnesium 1.9 mg/dL (1.6-2.3) 04/14/20 09:51 Iron 21.5 ug/dL (49-181) L 02/12/20 11:04 TIBC 199 ug/dL (250-450) L 02/12/20 11:04 % Saturation 11 % 02/12/20 11:04 Ferritin 371.00 ng/mL (17.9-464.0) 02/26/20 22:29 Total Bilirubin 0.3 mg/dL (0.2-1.3) 04/14/20 09:51 Direct Bilirubin 0.2 mg/dL (0.0-0.4) 04/14/20 09:51 Neonat Total Bilirubin Not Reportable 04/14/20 09:51 Neonat Direct Bilirubin Not Reportable 04/14/20 09:51 Neonat Indirect Bili Not Reportable 04/14/20 09:51 AST 9 U/L (17-59) L 04/14/20 09:51 ALT 8 U/L (<50) 04/14/20 09:51 Alkaline Phosphatase 116 U/L (38-126) 04/14/20 09:51 Ammonia < 8.7 umol/L (9-33) L 02/16/20 04:22 Creatine Kinase 33 U/L (55-170) L 02/27/20 08:12 CK-MB (CK-2) 2.16 ng/mL (<4.55) 02/27/20 08:12 Troponin I 0.020 ng/mL 03/25/20 08:40 C-Reactive Protein 183.6 mg/L (<10.0) H 03/05/20 07:00 NT-Pro-B Natriuret Pep 70461 pg/mL (<125) H 03/15/20 08:44 Total Protein 5.7 g/dL (6.3-8.2) L 04/14/20 09:51 Albumin 2.3 g/dL (3.5-5.0) L 04/14/20 09:51 Prealbumin 13.5 mg/dL (17.6-36.0) L 04/07/20 08:45 Triglycerides 156 mg/dL (<150) H 03/07/20 04:30 Interleukin 6 46.1 pg/mL (0.0-12.2) H 02/12/20 11:04 EGFR Cancelled 03/14/20 03:58 Vitamin B12 490.0 pg/mL (239-931) 02/12/20 11:04 Folate 8.06 ng/mL (>2.76) 02/12/20 11:04 Procalcitonin 0.87 ng/mL (0.00-0.08) H 03/13/20 10:25 TSH 1.70 uIU/mL (0.47-4.68) 03/14/20 05:25 Random Cortisol 5.54 ug/dL (None Established) 03/14/20 05:25 Urine Color YELLOW 04/16/20 22:45 Urine Appearance CLEAR 04/16/20 22:45 Urine pH 5.0 (5.0-9.0) 04/16/20 22:45 Ur Specific Vera 1.011 04/16/20 22:45 Urine Protein 30 mg/dL (NEGATIVE) H 04/16/20 22:45 Urine Glucose (UA) NEGATIVE mg/dL (NEGATIVE) 04/16/20 22:45 Urine Ketones NEGATIVE mg/dL (NEGATIVE) 04/16/20 22:45 Urine Blood SMALL (NEGATIVE) H 04/16/20 22:45 Urine Nitrite NEGATIVE (NEGATIVE) 04/16/20 22:45 Urine Nitrite (Reflex) NEGATIVE (NEGATIVE) 03/29/20 22:20 Urine Bilirubin NEGATIVE (NEGATIVE) 04/16/20 22:45 Urine Urobilinogen NEGATIVE mg/dL (<2.0) 04/16/20 22:45 Ur Leukocyte Esterase NEGATIVE (NEGATIVE) 04/16/20 22:45 Leukocyte Esterase Rfl LARGE (NEGATIVE) H 03/29/20 22:20 Urine WBC (Auto) 7 /HPF 04/16/20 22:45 Urine RBC (Auto) 1 /HPF 04/16/20 22:45 U Hyaline Cast (Auto) 5 /LPF 04/16/20 22:45 Urine Bacteria (Auto) [employer]ER 02/27/20 12:50 Urine Red Cell Clumps [employer] LE[employer]ER 02/27/20 12:50 Urine WBC (Reflex) 118 /HPF 03/29/20 22:20 Urine WBC Clumps FEW /HPF 03/29/20 22:20 Squamous Epi Cells Auto <1 /HPF 03/29/20 22:20 U Non-Squamous Epis Auto [employer]ER 02/27/20 12:50 Calcium Carbonate Cryst [employer]ER 02/27/20 12:50 Calcium Phosphate Cryst [employer]ING [employer]AM LE[employer]ER 02/27/20 12:50 Calcium Oxalate Cr Auto [employer]ING TEAM LEADER 02/27/20 12:50 Leucine Crystals [employer]ING TE[employer] LE[employer]ER 02/27/20 12:50 Cystine Crystals FI[employer]ING TEAM LE[employer]ER 02/27/20 12:50 Uric Acid Cryst (Auto) FI[employer]ING TE[employer] LE[employer]ER 02/27/20 12:50 Triple Phos Cryst (Auto) [employer]ING TE[employer] LEADER 02/27/20 12:50 Tyrosine Crystals FI[employer]ING TEAM LEADER 02/27/20 12:50 Amorphous Sediment Auto [employer] LE[employer]ER 02/27/20 12:50 Cellular Casts [employer] LE[employer]ER 02/27/20 12:50 Epithelial Casts (Auto) FI[employer] MARK[employer]ING TEAM LEADER 02/27/20 12:50 Fatty Casts [employer] LE[employer]ER 02/27/20 12:50 Granular Casts (Auto) [employer] LE[employer]ER 02/27/20 12:50 Waxy Casts (Auto) [employer] TE[employer] LEADER 02/27/20 12:50 Broad Casts FI[employer]ING [employer]AM LEADER 02/27/20 12:50 RBC Casts (Auto) FI[employer] MARK[employer]ING TEAM LEADER 02/27/20 12:50 WBC Casts (Auto) FI[employer]ING TE[employer] LEADER 02/27/20 12:50 Urine Mucus (Auto) RARE /LPF 04/16/20 22:45 U Trichomonas (Auto) [employer] LE[employer]ER 02/27/20 12:50 Ur Yeast w Hyphae [employer]ING TEAM LEADER 02/27/20 12:50 Urine Yeast (Budding) PRESENT /HPF 03/29/20 22:20 Urine Osmolality 486 mOsm/kg (300-900) 03/14/20 15:10 Urine Potassium 33.7 mmol/L (17-99) 03/14/20 15:10 Ur Chloride mmol/L 124 mmol/L (Not Estab.) 03/15/20 16:45 Ur Chloride mmol/Day 258 mmol/24 hr (52-264) 03/15/20 16:45 Urine Ascorbic Acid NEGATIVE (NEGATIVE) 04/16/20 22:45 Stool Occult Blood POSITIVE (NEGATIVE) 03/16/20 03:50 Stl C. Difficile GDH Ag NEGATIVE (NEGATIVE) 03/06/20 16:53 Stl C.difficile Tox A&B NEGATIVE (NEGATIVE) 03/06/20 16:53 Time Trough Drawn 0400 03/20/20 04:00 Vancomycin Trough 22.3 ug/mL (5.0-20.0) H 03/20/20 04:00 Urine Opiates Screen NEGATIVE 02/27/20 12:50 Urine Methadone Screen NEGATIVE 02/27/20 12:50 Ur Barbiturates Screen NEGATIVE 02/27/20 12:50 Ur Phencyclidine Scrn NEGATIVE 02/27/20 12:50 Ur Amphetamines Screen NEGATIVE 02/27/20 12:50 U Benzodiazepines Scrn NEGATIVE 02/27/20 12:50 Urine Cocaine Screen NEGATIVE 02/27/20 12:50 U Marijuana (THC) Screen NEGATIVE 02/27/20 12:50 COVID-19 Source See comment 04/12/20 14:49 COVID-19 (CARLOS) Not Detected (Not Detect) 04/12/20 14:49 Hep Bs Antigen Negative (Negative) 02/02/20 12:34 Hep Bs Antibody, Quant <3.1 mIU/mL (Immunity>9) L 02/02/20 12:34 Hep B Core Total Ab Negative (Negative) 02/02/20 12:34 HCV Quantitation HCV Not Detected IU/mL (.) 02/02/20 12:34 HCV RNA PCR Test Info Comment (.) 02/02/20 12:34 Slides for Path Review Cancelled 04/09/20 06:26 Blood Type A POSITIVE 03/04/20 12:47 Blood Type Confirm A POSITIVE 03/04/20 12:47 Antibody Screen NEGATIVE 03/04/20 12:47 Crossmatch See Detail 03/04/20 12:47 01/24/20 01/24/20 01/24/20 00:03 04:20 10:43 CK-MB (CK-2) 0.63 Troponin I 0.132 0.133 0.114 NT-Pro-B Natriuret Pep 32582 H 61118 H 01/24/20 01/24/20 01/30/20 17:19 23:06 03:45 CK-MB (CK-2) Troponin I 0.079 0.075 NT-Pro-B Natriuret Pep 06311 H 01/31/20 02/01/20 02/02/20 05:39 06:14 04:24 CK-MB (CK-2) Troponin I NT-Pro-B Natriuret Pep 26141 H 24129 H 08182 H 02/27/20 02/27/20 02/28/20 08:12 08:12 05:44 CK-MB (CK-2) 2.16 Troponin I 0.013 NT-Pro-B Natriuret Pep 42819 H 35224 H 02/29/20 03/02/20 03/03/20 05:35 05:44 05:00 CK-MB (CK-2) Troponin I NT-Pro-B Natriuret Pep 42657 H 67761 H 20626 H 03/11/20 03/13/20 03/15/20 04:33 08:40 08:44 CK-MB (CK-2) Troponin I NT-Pro-B Natriuret Pep 02617 H 74245 H 76752 H 03/25/20 08:40 CK-MB (CK-2) Troponin I 0.020 NT-Pro-B Natriuret Pep Impressions: Chest X-Ray 01/23/20 23:18 IMPRESSION: Extensive bilateral pneumonia copyright 2010 [employer]- All Rights Reserved Chest X-Ray 01/25/20 06:00 IMPRESSION: Increasing diffuse airspace opacities consistent with multi lobar pneumonia. Chest X-Ray 01/26/20 06:00 IMPRESSION: No acute cardiopulmonary process. Chest X-Ray 01/27/20 06:00 IMPRESSION: Marked progression in left lower lobe and lingular airspace opacities with and improved appearance of the right upper lobe aeration in this patient with multi lobar pneumonia. Chest X-Ray 01/29/20 00:00 IMPRESSION: Extensive bilateral pneumonia. The ET tube and NG tube are in satisfactory position. copyright 2010 [employer]- All Rights Reserved Chest X-Ray 01/30/20 05:00 IMPRESSION: No significant change. No pneumothorax. Chest X-Ray 01/31/20 00:00 IMPRESSION: Stable extensive diffuse bilateral airspace disease, right greater left. Enteric tube side port below GE junction. Chest X-Ray 01/31/20 05:00 IMPRESSION: 1. Grossly stable extensive diffuse bilateral airspace disease, right greater than left. 2. Endotracheal tube tip 3.3 cm above the laura. Chest X-Ray 02/01/20 05:00 IMPRESSION: SLIGHT WORSENING IN THE EXTENSIVE BILATERAL AIRSPACE DISEASE. Chest X-Ray 02/01/20 16:49 IMPRESSION: Catheter placement as described. Extensive pulmonary edema. Chest X-Ray 02/02/20 05:00 IMPRESSION: STABLE APPEARANCE OF THE CHEST. SUPPORT DEVICES UNCHANGED. Chest X-Ray 02/04/20 05:00 IMPRESSION: Slight improvement. No pneumothorax. Chest X-Ray 02/05/20 05:00 IMPRESSION: STABLE APPEARANCE OF THE CHEST. SUPPORT DEVICES UNCHANGED. Chest X-Ray 02/13/20 00:00 IMPRESSION: Slight improvement status post extubation. Chest X-Ray 02/14/20 00:00 IMPRESSION: NG tube placement. Persistent upper lobe airspace disease. Chest X-Ray 02/14/20 06:00 IMPRESSION: Persistent but improved bilateral airspace disease greatest within the upper lungs. Stable enlarged cardiac silhouette. Chest X-Ray 02/15/20 06:00 IMPRESSION: STABLE APPEARANCE OF THE CHEST. SUPPORT DEVICES UNCHANGED. Chest X-Ray 02/16/20 06:00 IMPRESSION: STABLE APPEARANCE OF THE CHEST. Chest X-Ray 02/17/20 06:00 IMPRESSION: NO CHANGE IN APPEARANCE OF THE CHEST. KUB X-Ray 02/17/20 15:30 IMPRESSION: NO RADIOGRAPHIC EVIDENCE FOR ACUTE ABDOMINAL DISEASE. NG tube tip overlies the cardiac portion of the stomach near the GE junction similar to the earlier study. Chest X-Ray 02/18/20 00:00 IMPRESSION: New right basilar dense consolidation. Endotracheal tube tip overlies the lower 3rd of the trachea approximately 3 cm above the level of the laura. Right IJ central venous catheter tip overlies the right atrium. Nasogastric catheter tip is beyond the inferior margin of the image passed the lower esophagus. KUB X-Ray 02/23/20 17:08 IMPRESSION: NG tube placement. Chest X-Ray 02/27/20 10:20 IMPRESSION: SATISFACTORY POSITION OF THE LIFE LINES. OVERALL IMPROVED APPEARANCE OF THE CHEST. Chest X-Ray 02/28/20 05:00 IMPRESSION: Tubes and lines as above. Otherwise unchanged radiographic appearance of the chest. Chest X-Ray 03/01/20 00:00 IMPRESSION: Improved aeration. Chest X-Ray 03/02/20 05:00 IMPRESSION: 1. Stable pulmonary exam. 2. Stable lines and tubes. Chest X-Ray 03/03/20 05:00 IMPRESSION: 1. Stable pulmonary exam. 2. Stable lines and tubes. Chest X-Ray 03/04/20 05:00 IMPRESSION: STABLE APPEARANCE OF THE CHEST. SUPPORT DEVICES UNCHANGED. Chest X-Ray 03/09/20 00:00 IMPRESSION: STABLE APPEARANCE OF THE CHEST. Chest X-Ray 03/11/20 05:00 IMPRESSION: 1. Patchy bilateral airspace disease greatest within the right upper and left lower lobes, mildly worsened. 2. Endotracheal tube tip overlies midthoracic trachea. Enteric tube tip overlies distal stomach. Chest X-Ray 03/13/20 00:00 IMPRESSION: Increasing bilateral airspace disease. Changes are greater on the right than left. Changes are most prominent in the lung bases. Chest X-Ray 03/14/20 06:00 IMPRESSION: No significant change. No pneumothorax. Chest X-Ray 03/14/20 17:38 IMPRESSION: 1. Somewhat improved aeration of the lungs with persistent extensive multifocal airspace opacities. 2. Interval extubation with placement of a tracheostomy sheath without evidence of gross complication. Enteric tube terminates subdiaphragmatically out of the imaged field of view. Chest X-Ray 03/15/20 08:15 IMPRESSION: Unchanged radiographic appearance of the chest Chest X-Ray 03/18/20 07:00 IMPRESSION: Multifocal patchy airspace disease throughout both lungs, mildly improved aeration at the left lung base. Small associated pleural effusions, left greater right. Enteric tube side port at GE junction. Consider advancing 5 to 10 cm. Chest X-Ray 03/19/20 00:00 IMPRESSION: No change. Modified Barium Swallow 03/19/20 00:00 IMPRESSION: LARYNGEAL PENETRATION AND TRACHEAL ASPIRATION ABOVE. PLEASE SEE SPEECH PATHOLOGIST REPORT FOR OTHER FINDINGS AND RECOMMENDATIONS. Chest X-Ray 03/21/20 00:00 IMPRESSION: Interval improvement. Appropriate position of nasogastric tube. Chest X-Ray 03/24/20 00:00 IMPRESSION: Apparent NG tube tip is at the level of the tracheostomy and repositioning is recommended. Bilateral consolidations and atelectasis. KUB X-Ray 03/25/20 00:00 IMPRESSION: Nasogastric tube in the stomach Dilated loops of small bowel which may reflect obstruction Basilar infiltrates Modified Barium Swallow 03/27/20 00:00 IMPRESSION: ASPIRATION WITH ALL CONSISTENCIES, HOWEVER SOMEWHAT IMPROVED. PLEASE SEE SPEECH PATHOLOGIST REPORT FOR OTHER FINDINGS AND RECOMMENDATIONS. Chest X-Ray 03/28/20 00:00 IMPRESSION: NG tube is been placed. Tip lies in the left upper quadrant as described. Chest X-Ray 03/30/20 00:00 IMPRESSION: Worsening sepsis or edema. KUB X-Ray 03/31/20 00:00 IMPRESSION: Status post placement of enteric tube with distal tip in the expected location of the stomach. Modified Barium Swallow 04/10/20 09:58 IMPRESSION: TRACHEAL ASPIRATION WITH THIN BARIUM. PLEASE SEE SPEECH PATHOLOGIST REPORT FOR OTHER FINDINGS AND RECOMMENDATIONS. Plan Time Spent: Greater than 30 Minutes Stroke Is this a Stroke Patient?: No Acute Heart Failure Is this a Heart Failure Patient?: Yes Documentation of LVEF assessment?: Yes LVEF: LVEF Greater Than 40% Anticoagulant Therapy: N/A Discharged on Evidence-Based Beta Blockers: Yes Discharged on ARNI?: No-Document Contraindications Reason(s) not discharged on ARNI: NYHA Class I or IV Discharged on ARB?: No-document contraindications Reason(s) not Discharged on ARB: Other ARB Reason - Other: on ACEI Discharged on ACEI?: Yes Follow-up Appointment scheduled within 7 days?: Yes
[2020-04-19 14:30] VITALS: BP 108/56
== END 2020-04-19 14:33 | DRG 4 ==
LOC: ER 23:00 → EH 01-24 08:20 → ICU 01-24 10:24 → 3N 02-23 18:51 → ICU 02-27 08:59 → 3N 02-29 07:08 → ICU 02-29 07:17 → 3N 03-17 18:26 → 3S 04-05 12:41
PROVIDERS: ADMIT Internal Medicine Critical Care Medicine; ATTEND Family Medicine
PROC: 5A1955Z Respiratory Ventilation, Greater than 96 Consecutive Hours (ICD-10-PCS; principal; 2020-01-29)
PROC: 0BH17EZ Insertion of Endotracheal Airway into Trachea, Via Natural or Artificial Opening (ICD-10-PCS; 2020-01-29)
PROC: 30233N1 Transfusion of Nonautologous Red Blood Cells into Peripheral Vein, Percutaneous Approach (ICD-10-PCS; 2020-01-30)
PROC: 02HV33Z Insertion of Infusion Device into Superior Vena Cava, Percutaneous Approach (ICD-10-PCS; 2020-02-01)
PROC: 5A1D70Z Performance of Urinary Filtration, Intermittent, Less than 6 Hours Per Day (ICD-10-PCS; 2020-02-02)
PROC: 30233N1 Transfusion of Nonautologous Red Blood Cells into Peripheral Vein, Percutaneous Approach (ICD-10-PCS; 2020-02-12)
PROC: 0BH17EZ Insertion of Endotracheal Airway into Trachea, Via Natural or Artificial Opening (ICD-10-PCS; 2020-02-18)
PROC: 5A1955Z Respiratory Ventilation, Greater than 96 Consecutive Hours (ICD-10-PCS; 2020-02-18)
PROC: 02H633Z Insertion of Infusion Device into Right Atrium, Percutaneous Approach (ICD-10-PCS; 2020-02-27)
PROC: 0BH17EZ Insertion of Endotracheal Airway into Trachea, Via Natural or Artificial Opening (ICD-10-PCS; 2020-03-01)
PROC: 5A1955Z Respiratory Ventilation, Greater than 96 Consecutive Hours (ICD-10-PCS; 2020-03-01)
PROC: 30233N1 Transfusion of Nonautologous Red Blood Cells into Peripheral Vein, Percutaneous Approach (ICD-10-PCS; 2020-03-05)
PROC: 0B113F4 Bypass Trachea to Cutaneous with Tracheostomy Device, Percutaneous Approach (ICD-10-PCS; 2020-03-14)
PROC: 0B918ZZ Drainage of Trachea, Via Natural or Artificial Opening Endoscopic (ICD-10-PCS; 2020-03-14)
DX: U07.1 COVID-19 (principal); J96.01 Acute respiratory failure with hypoxia; J12.89 Other viral pneumonia; J96.02 Acute respiratory failure with hypercapnia; I21.4 Non-ST elevation (NSTEMI) myocardial infarction; N17.0 Acute kidney failure with tubular necrosis; A41.9 Sepsis, unspecified organism; R65.20 Severe sepsis without septic shock; G93.41 Metabolic encephalopathy; I50.21 Acute systolic (congestive) heart failure; N18.4 Chronic kidney disease, stage 4 (severe); I13.0 Hypertensive heart and chronic kidney disease with heart failure and stage 1 through stage 4 chronic kidney disease, or unspecified chronic kidney disease; N17.9 Acute kidney failure, unspecified; N39.0 Urinary tract infection, site not specified; D62 Acute posthemorrhagic anemia; K92.2 Gastrointestinal hemorrhage, unspecified; R64 Cachexia; E11.22 Type 2 diabetes mellitus with diabetic chronic kidney disease; E11.65 Type 2 diabetes mellitus with hyperglycemia; E83.42 Hypomagnesemia; D63.1 Anemia in chronic kidney disease; B95.2 Enterococcus as the cause of diseases classified elsewhere; G89.29 Other chronic pain; F32.9 Major depressive disorder, single episode, unspecified; Z79.82 Long term (current) use of aspirin; Z79.4 Long term (current) use of insulin; Z79.899 Other long term (current) drug therapy; Z79.891 Long term (current) use of opiate analgesic
CPT/HCPCS: 00320; 31500; 36415; 36430; 36556; 36600; 71045; 74018; 74230; 80048; 80053; 80202; 80307; 81001; 82140; 82272; 82330; 82436; 82533; 82550; 82553; 82565; 82607; 82728; 82746; 82803; 82947; 82962; 83520; 83540; 83550; 83605; 83735; 83880; 83930; 83935; 84100; 84133; 84134; 84145; 84443; 84478; 84484; 85025; 85027; 85045; 85379; 85610; 85730; 86140; 86317; 86704; 86850; 86900; 86901; 86920; 87040; 87070; 87077; 87086; 87088; 87186; 87205; 87324; 87340; 87449; 87522; 87635; 93005; 93010; 93306; 93308; 93503; 94002; 94003; 94640; 94660; 96361; 96365; 96368; 96375; 99221; 99285; 99291; 99292; C9113; C9803; J0171; J0330; J0461; J0692; J1100; J1170; J1200; J1265; J1610; J1642; J1644; J1650; J1720; J1815; J1940; J1956; J2020; J2060; J2185; J2250; J2270; J2370; J2405; J2550; J2597; J2704; J2920; J3010; J3370; J3420; J3475; J3490; J7030; J7042; J7050; J7060; J7120; J7121; J7613; P9016; P9047; Q5105; S0028

== ENCOUNTER 2020-04-20 06:18 | Inpatient (IN) | payer OTHER, MEDICARE ==
[2020-04-20] MEDS ORDERED: NORMAL SALINE 1000 ML 1,000 ML IV ONE ×5 (06:40→12:50)
[2020-04-20 06:48] LABS: ARTERIAL BLOOD BASE EXCESS 2.3 mmol/L; ARTERIAL BLOOD H2CO3 1.79 mmol/L (1.05-1.35); ARTERIAL BLOOD HCO3 29.3 mmol/L (20-24); ARTERIAL BLOOD O2 SATURATION 81.5 % (94-98); ARTERIAL BLOOD PCO2 59.6 mmHg (35-45); ARTERIAL BLOOD PH 7.31 (7.35-7.45); ARTERIAL BLOOD PO2 50.6 mmHg (80-100); ARTERIAL BLOOD TOTAL CO2 31.1 mmol/L (23-27)
[2020-04-20 06:50] LABS: ARTERIAL BLOOD FIO2 100%
[2020-04-20] MEDS ORDERED: HYDROMORPHONE HCL INJ/PF 2 MG/ML AMPULE IV ONE (07:19)
[2020-04-20] MEDS ORDERED: ONDANSETRON HCL INJ/PF 4 MG/2 ML SDV IV ONE (07:21)
[2020-04-20 07:40] LABS: APPEARANCE,URINE CLOUDY; BILIRUBIN,URINE NEGATIVE (NEGATIVE); COLOR,URINE AMBER; GLUCOSE, URINE NEGATIVE (NEGATIVE); KETONES,URINE NEGATIVE (NEGATIVE); LEUKOCYTE ESTERASE,URINE LARGE (NEGATIVE); NITRITE,URINE NEGATIVE (NEGATIVE); PROTEIN,URINE 100 mg/dL (NEGATIVE); UROBILINOGEN,URINE NEGATIVE mg/dL (<2.0)
--- NOTE | 2020-04-20 08:31 | EKG REPORT ---
SEVERITY:- ABNORMAL ECG - SINUS RHYTHM CONSIDER ANTEROSEPTAL INFARCT NONSPECIFIC T ABNORMALITIES, LATERAL LEADS BORDERLINE PROLONGED QT INTERVAL : Confirmed by: Moe Barrientos MD 20-Apr-2020 08:30:39
--- NOTE | 2020-04-20 08:32 | RADIOLOGY REPORT (SQ) ---
EXAM DESCRIPTION: CHEST SINGLE VIEW IMAGES COMPLETED DATE/TIME: 04/20/2020 7:34 am REASON FOR STUDY: sob COMPARISON: 03/30/2020 FINDINGS: One-view chest AP portable semi-upright. Relatively low lung volumes without pneumothorax. External artifacts. Allowing for this, minimal in terstitial changes may reflect very mild edema. Stable cardiomediastinal silhouette. Tracheostomy remains in place. TECHNICAL DOCUMENTATION: JOB ID: [id number] Reading location - IP/workstation name: [email or web address]
--- NOTE | 2020-04-20 08:53 | Operative Report ---
Bedside Procedure - History of Present Illness Indication for Procedure: Poor IV access Date: 04/20/20 Provider: ANAHI Noel Central Line Right Femoral Time completed: 08:30 Consent obtained: Yes Central line pre-insertion: Sterile PPE donned, Chloraprep applied, Sterile drapes applied Central line lumen type: Triple Anesthetic type: 1% Lidocaine Ultrasound guided: No Line secured with sutures: Yes Central line post-insertion: Blood return from lumens, Biopatch applied, Sutured, Sterile dressing applied Complications: No
[2020-04-20] MEDS ORDERED: DEXTROSE 5%-WATER 250 ML with NOREPINEPHRINE BITARTRATE 4 MG IV PRN ×2 (09:14)
[2020-04-20] MEDS ORDERED: AZTREONAM INJ 1 GM VIAL IV ONE (09:16)
[2020-04-20] MEDS ORDERED: VANCOMYCIN HCL INJ 1000 MG VIAL IV ONE (09:17)
[2020-04-20] MEDS ORDERED: NOREPINEPHRINE BITARTRATE INJ/PF 4 MG/4 ML SDV IV ONE (09:26)
[2020-04-20 09:43] LABS: ALBUMIN 2.7 g/dL (3.5-5.0); ALKALINE PHOSPHATASE 143 U/L (38-126); ANION GAP 12 (5-19); ASPARTATE AMINO TRANSFERASE 13 U/L (17-59); BILIRUBIN,DIRECT 0.3 mg/dL (0.0-0.4); BILIRUBIN,TOTAL 0.3 mg/dL (0.2-1.3); BLOOD UREA NITROGEN 31 mg/dL (7-20); CALCIUM 9.1 mg/dL (8.4-10.2); CARBON DIOXIDE 30 mmol/L (22-30); CHLORIDE 103 mmol/L (98-107); GLUCOSE 108 mg/dL (75-110); POTASSIUM 4.3 mmol/L (3.6-5.0); TOTAL PROTEIN 6.5 g/dL (6.3-8.2)
[2020-04-20 09:45] LABS: HEMATOCRIT 26.8 % (37.9-51.0); HEMOGLOBIN 8.8 g/dL (13.5-17.0); MEAN CORPUSCULAR HEMOGLOBIN 27.4 pg (27.0-33.4); MEAN CORPUSCULAR HGB CONC 32.6 g/dL (32.0-36.0); MEAN CORPUSCULAR VOLUME 84 fl (80-97); PLATELET COUNT 550 10^3/uL (150-450); RED BLOOD COUNT 3.19 10^6/uL (4.35-5.55); RED CELL DISTRIBUTION WIDTH 17.6 % (11.5-14.0); WHITE BLOOD COUNT 19.5 10^3/uL (4.0-10.5)
[2020-04-20 09:48] LABS: PARTIAL THROMBOPLASTIN TIME 36.5 SEC (23.5-35.8); PROTHROMBIN TIME 13.4 SEC (11.4-15.4)
[2020-04-20 09:55] LABS: NT PRO BNP 10200 pg/mL (<125)
[2020-04-20 10:00] LABS: TROPONIN I < 0.012 ng/mL
[2020-04-20 10:16] LABS: ABSOLUTE LYMPHOCYTES# (MANUAL) 0.6 10^3/uL (0.5-4.7); ABSOLUTE MONOCYTES # (MANUAL) 0.2 10^3/uL (0.1-1.4); BASOPHILS % (MANUAL) 0 % (0-2); EOSINOPHILS % (MANUAL) 0 % (0-6); LYMPHOCYTES % (MANUAL) 3 % (13-45); MONOCYTES % (MANUAL) 1 % (3-13); SEGMENTED NEUTROPHILS % (MAN) 96 % (42-78); TOTAL CELLS COUNTED 100
[2020-04-20 10:19] LABS: ANISOCYTOSIS 1+; OVALOCYTES SLIGHT; PLATELET COMMENT ADEQUATE
--- NOTE | 2020-04-20 12:19 | ER Document Report ---
Entered by HELIO HERRERA SCRIBE 04/20/20 0642 Acting as scribe for:JOHN ANDERSON MD ED Respiratory Problem - General Chief Complaint: Shortness Of Breath Stated Complaint: SHORTNESS OF BREATH Mode of Arrival: Medic Information source: Patient, Emergency Med Personnel Notes: This 60 year old male patient with a history significant for T2DM, HTN, CHF, and CKD brought in by EMS from [facility] presents to the ED today for evaluation of shortness of breath that started just prior to arrival. Per EMS, they were called out to the facility because the patient was diaphoretic with a BGL of 30; staff administered 1 mg Glucagon and a "tube and a half" of oral glucose prior to EMS arrival with recheck BGL of 40. Upon EMS arrival, patient was pale with diminished breath sounds, so they placed the patient on 15 L O2 via NRB with O2 sats to 86%. BGL on their arrival was 147. Patient was admitted to the ICU here on 01/23 for acute hypoxemic respiratory failure, transferred to a medical floor on 03/17, and was just discharged yesterday afternoon to [facility]. He was placed on BiPAP in the ED initially, tested positive for COVID on the day of admission, intubated on 01/28 due to acute hypercapnic respiratory failure, and had a tracheostomy placed on 03/18 due to failure to extubate. Prior to discharge, patient had x2 negative COVID results on 03/04 and 04/12. Patient denies chest pain, abdominal pain, fever, chills, nausea, or vomiting by shaking his head. TRAVEL OUTSIDE OF THE [place] IN LAST 30 DAYS: No - Related Data Allergies/Adverse Reactions: iodine Allergy (Verified 01/23/20 23:19) Penicillins Allergy (Verified 01/23/20 23:19) shellfish derived Allergy (Verified 01/23/20 23:19) Sulfa (Sulfonamide Antibiotics) Allergy (Verified 01/23/20 23:19) Past Medical History - General Information source: Emergency Med Personnel, [facility] Records - Social History Smoking Status: Unknown if Ever Smoked Smoking Education Provided: No Frequency of alcohol use: None Drug Abuse: None Lives with: Skilled Nursing - [facility] Family History: Reviewed & Not Pertinent, DM Patient has suicidal ideation: No Patient has homicidal ideation: No - Past Medical History Cardiac Medical History: Reports: Hx Congestive Heart Failure, Hx Hypertension Pulmonary Medical History: Reports: Hx Intubation, Hx Respiratory Failure Endocrine Medical History: Reports: Hx Diabetes Mellitus Type 2 Renal/ Medical History: Reports: Hx End Stage Renal Disease - Recently diagnosed with stage IV CKD Musculoskeletal Medical History: Reports Hx Arthritis Psychiatric Medical History: Reports: Hx Depression Past Surgical History: Reports: Hx Orthopedic Surgery - Multiple surgeries, Other - Tracheostomy, 03/18/2020 Review of Systems - Review of Systems Constitutional: See HPI. denies: Chills, Fever, Recent illness EENT: No symptoms reported Cardiovascular: See HPI. denies: Chest pain Respiratory: See HPI, Short of breath Gastrointestinal: See HPI. denies: Abdominal pain, Nausea, Vomiting Genitourinary: No symptoms reported Male Genitourinary: No symptoms reported Musculoskeletal: No symptoms reported Skin: No symptoms reported Hematologic/Lymphatic: No symptoms reported Neurological/Psychological: No symptoms reported -: Yes All other systems reviewed and negative Physical Exam - Vital signs Vitals: BP Pulse Ox 99/70 L 89 L 04/20/20 06:21 04/20/20 06:21 - General General appearance: Alert, Other - Appears cachetic, thin, and pale and in obvious respiratory distress In distress: Severe - HEENT Head: Normocephalic, Atraumatic Eyes: Normal Pupils: PERRL - Respiratory Respiratory status: Respiratory distress - Hypoxic, O2 sats in the 80s on 15 L O2 via NRB Chest status: Nontender Breath sounds: Decreased air movement - Diminished breath sounds, Rales - in the bases. No: Wheezing Chest palpation: Normal - Cardiovascular Rhythm: Regular Heart sounds: Normal auscultation Murmur: No Friction rub: No Gallop: None auscultated - Abdominal Inspection: Other - Thin Distension: No distension Bowel sounds: Normal Tenderness: Nontender - Abdomen soft Organomegaly: No organomegaly - Back Back: Normal, Nontender - Extremities General upper extremity: Normal inspection General lower extremity: Normal inspection. No: Edema - Neurological Neuro grossly intact: Yes Orientation: AAOx4 [place] Coma Scale Eye Opening: Spontaneous [place] Coma Scale Verbal: Oriented [place] Coma Scale Motor: Obeys Commands [place] Coma Scale Total: 15 - Psychological Associated symptoms: Normal affect, Normal mood - Skin Skin Temperature: Cool Skin Moisture: Dry Skin Color: Pale Course - Re-evaluation Re-evalutation: 04/20/20 15:10 Patient in respiratory distress requiring O2 support. Patient tachypneic and on arrival with low saturations and around 85. Patient has a tracheostomy that is not in use at this time and was capped off. Patient was receiving nonrebreather facemask that was not adequately ventilating patient to maintain normal saturation therefore patient was placed on a BiPAP. Patient was eventually elevated to use of the tracheostomy with a change in a cuffed tracheostomy tube and connected to ventilator and patient had a normal saturation at this point in time. Patient was hypotensive as well requiring a central line. Central line was attempted by me and and was able to be successful and was able to get a right femoral central line. Patient was given IV fluids and resuscitated his blood pressure to greater than 90 with IV fluid management. Patient's chest x-ray showed improvement over 3 weeks ago when he had diffuse bibasilar infiltrates. Patient now has residual infiltrates in the bases right greater than left. No pleural effusion noted. An attempt was made to try patient on tracheostomy trach O2. Patient was not successful in maintaining a saturation greater than 89 and actually decreases sat to 83% while on the trach oxygen. Therefore patient was placed back on the ventilator with sats ranging 93%. 04/20/20 15:13 Case was discussed with Dr. Olson regarding admission to the ICU and based on that discussion Dr. Olson said a stable vent patient can be managed on the floor not requiring ICU bed status. Discussed case with Dr. Delaney, who accepted the patient to the IMCU. - Vital Signs Vital signs: Temp Pulse Resp BP Pulse Ox 99.6 F 90 20 131/61 H 99 04/20/20 14:31 04/20/20 06:29 04/20/20 14:31 04/20/20 14:31 04/20/20 14:31 - Laboratory Result Diagrams: 04/20/20 09:00 04/20/20 09:00 Laboratory results interpreted by me: 04/20/20 04/20/20 04/20/20 06:26 06:46 09:00 WBC 19.5 H RBC 3.19 L Hgb 8.8 L Hct 26.8 L RDW 17.6 H Plt Count 550 H Seg Neuts % (Manual) 96 H Lymphocytes % (Manual) 3 L Monocytes % (Manual) 1 L Abs Neuts (Manual) 18.7 H APTT Carbonic Acid 1.79 H ABG pH 7.31 L ABG pCO2 59.6 H ABG pO2 50.6 L ABG HCO3 29.3 H ABG Total CO2 31.1 H ABG O2 Saturation 81.5 L BUN AST Alkaline Phosphatase NT-Pro-B Natriuret Pep Albumin Lipase Urine Protein 100 H Urine Blood SMALL H Ur Leukocyte Esterase LARGE H 04/20/20 04/20/20 04/20/20 09:00 09:00 09:00 WBC RBC Hgb Hct RDW Plt Count Seg Neuts % (Manual) Lymphocytes % (Manual) Monocytes % (Manual) Abs Neuts (Manual) APTT 36.5 H Carbonic Acid ABG pH ABG pCO2 ABG pO2 ABG HCO3 ABG Total CO2 ABG O2 Saturation BUN 31 H AST 13 L Alkaline Phosphatase 143 H NT-Pro-B Natriuret Pep 85124 H Albumin 2.7 L Lipase < 10.0 L Urine Protein Urine Blood Ur Leukocyte Esterase Patient's white blood cell count is 19.5 and a BNP of 1 10,200. Patient has an indwelling Varner catheter and shows that there is a large amount of leukocyte esterase small amount of blood noted in the urinalysis. - Diagnostic Test Radiology reviewed: Image reviewed, Reports reviewed Radiology results interpreted by me: 04/20/20 15:17 Chest x-ray shows low volume inspiration with tracheostomy tube in place and mild interstitial edema noted infiltrates in bases residual from prior chest x- ray. - EKG Interpretation by Me Additional EKG results interpreted by me: 04/20/20 15:18 12-lead EKG shows normal sinus rhythm rate of 93 probable left atrial abnormality. Consider anterior septal infarct. Nonspecific T wave abnormalities in the lateral leads NH interval within normal range QRS normal interval and QT interval within normal range normal axis no acute ST elevation to suggest an SD. - Consults Dr. Chandler, Vessel Crew Member Time consulted: 08:25 Consulted provider: will come to ER Dr. Delaney, Hospitalist Time consulted: 11:25 Critical Care Note - Critical Care Note Total time excluding time spent on procedures (mins): 57 - Management of airway, ventilator settings, IV fluid resuscitation for hypotension and sepsis, and management of hypoxia. Discharge - Discharge Clinical Impression: Pneumonia, Elevated brain natriuretic peptide (BNP) level, Hypoxia, Respiratory failure, [id number], Tracheostomy in place, Leukocytosis, Sepsis associated hypotension Condition: Critical Disposition: ADMITTED OBSERVATION Admitting Provider: Elaina (Hospitalist) Unit Admitted: IMCU I personally performed the services described in the documentation, reviewed and edited the documentation which was dictated to the scribe in my presence, and it accurately records my words and actions.
[2020-04-20] MEDS: DEXTROSE 5%-LACTATED RINGERS 1,000 ML IV PRN (14:21)
[2020-04-20] MEDS: HEPARIN SOD (PORCINE) 5,000 UNIT/ML 1 ML VIAL SUBCUT SCH ×2 (14:21→23:12)
[2020-04-20] MEDS ORDERED: TRAZODONE HCL 50 MG TABLET NG PRN (15:45)
[2020-04-20] MEDS ORDERED: DEXTROSE 40% GEL 15 GM TUBE PO PRN ×2 (15:48)
[2020-04-20] MEDS ORDERED: DEXTROSE 50%-WATER 25 GM/50 ML DISP.SYRIN IV PRN ×2 (15:48)
[2020-04-20] MEDS ORDERED: GLUCAGON,HUMAN RECOMB 1 MG INJ IM PRN (15:48)
[2020-04-20] MEDS: INSULIN LISPRO 100 UNIT/ML 3 ML VIAL SUBCUT SCH ×2 (18:12→22:14)
[2020-04-20] MEDS: DIPHENHYDRAMINE HCL 50 MG CAPSULE PO PRN (18:14)
[2020-04-20] MEDS: SCOPOLAMINE HYDROBROMIDE 1.5 MG PATCH.TD72 TD SCH (18:14)
[2020-04-20] MEDS: OXYCODONE-ACETAMINOPHEN 5-325 MG TABLET PO PRN ×2 (18:14→23:50)
--- NOTE | 2020-04-20 20:53 | PDOC H&P ---
History of Present Illness Admission Date/PCP: 04/20/20 12:49 GOLD ELENA Patient complains of: Desaturation History of Present Illness: FREDDIE LAZO JR is a 60 year old male, past medical history of type 2 diabetes hypertension CHF narcotic dependence CKD who was recently discharged from [facility] April 19, 2020 after being admitted for 89 days secondary to acute respiratory failure from COVID pneumonia. He was discharged with a tracheostomy tube uncuffed. Before discharge he has been able to speak and eat and the plan was to eventually remove the tracheostomy at [facility]. Sent back to the emergency room for evaluation of shortness of breath. EMS was called by the facility because the patient was diaphoretic with a blood glucose of 30 staff administered 1 mg glucagon in a tube and a half of oral glucose prior to EMS arrival and recheck of blood glucose was 40. Upon EMS arrival patient was pale with diminished breath sounds so he was placed on 15 L O2 via nonrebreather O2 sats went up to 86% and blood glucose was 147 upon ED arrival. In the emergency room he apparently continued to be hypoxic hence a trach cuff was placed and he was put back on mechanical ventilation briefly. He was also noted to be hypotensive hence central line was placed by Dr. Jean-Baptiste. Patient was given IV fluids. Repeat chest x-ray showed improvement of his diffuse bibasilar opacities compared from previous chest x-ray. Dr. Chandler evaluated him in the ED who felt that he does not need ICU admission. He was given 4 L of IV fluids. He was eventually transitioned to tracheal collar and was maintaining his O2 saturation to 95%. Patient was then admitted for further management. WBC count 19.5 in the ED he was given 1 dose of aztreonam and vancomycin. Past Medical History Cardiac Medical History: Reports: Congestive Heart Failure, Hypertension Denies: Coronary Artery Disease, Hyperlipidema Pulmonary Medical History: Reports: Intubation, Respiratory Failure Denies: Asthma, Chronic Obstructive Pulmonary Disease (COPD) Neurological Medical History: Denies: Seizures Endocrine Medical History: Reports: Diabetes Mellitus Type 2 Renal/ Medical History: Reports: End Stage Renal Disease - Recently diagnosed with stage IV CKD GI Medical History: Denies: Cirrhosis, Hepatitis Musculoskeltal Medical History: Reports: Arthritis Denies: Gout Skin Medical History: Denies: Eczema, Psoriasis Psychiatric Medical History: Reports: Depression Hematology: Reports: Anemia - Recently diagnosed Denies: Bleeding Tendencies Past Surgical History Past Surgical History: Reports: Orthopedic Surgery - Multiple surgeries, Other - Tracheostomy, 03/18/2020 Social History Information Source: Patient Lives with: [facility] Smoking Status: Unknown if Ever Smoked Frequency of Alcohol Use: None Hx Recreational Drug Use: No Drugs: None Hx Prescription Drug Abuse: No Family History Family History: Reviewed & Not Pertinent, DM Parental Family History Reviewed: Yes Children Family History Reviewed: Yes Sibling(s) Family History Reviewed.: Yes Medication/Allergy Home Medications: Furosemide [Lasix 20 mg Tablet] 20 mg PO DAILY tablet 04/19/20 Insulin Glargine,Hum.rec.anlog [Lantus Insulin 100 Unit/1 ml 10 ml] 5 unit SUBCUT DAILY unit 04/19/20 Insulin Lispro [Humalog Insulin (Lispro) 100 unit/mL] 0 - 12 unit SUBCUT ACHS unit 04/19/20 Lactulose [Cephulac Syrup 20 gm/30 ml Udcup] 10 gm PO Q12 udc 04/19/20 Lisinopril [Prinivil 5 mg Tablet] 2.5 mg PO Q12 tablet 04/19/20 Metoprolol Succinate [Toprol Xl 25 mg Tab.sr] 25 mg PO DAILY tab.sr.24h 04/19 Oxycodone HCl/Acetaminophen [Percocet 5-325 mg Tablet] 1 tab PO Q4HP PRN #14 tablet 04/19/20 Scopolamine Hydrobromide [Transderm-Scop 1.5 mg Patch] 1 each TD Q3DAYS patch.[id number] 04/19/20 Sennosides/Docusate 8.6-50 mg [Senna Plus Tablet] 2 each PO DAILY tablet 04/19/20 Thiamine HCl [Thiamine 100 mg Tablet] 100 mg PO DAILY tablet 04/19/20 Trazodone HCl [Desyrel 50 mg Tablet] 100 mg NG HSP PRN tablet 04/19/20 Allergies/Adverse Reactions: iodine Allergy (Verified 01/23/20 23:19) Penicillins Allergy (Verified 01/23/20 23:19) shellfish derived Allergy (Verified 01/23/20 23:19) Sulfa (Sulfonamide Antibiotics) Allergy (Verified 01/23/20 23:19) Review of Systems ROS unobtainable: Due to endotracheal tube Physical Exam Vital Signs: Temp Pulse Resp BP Pulse Ox 98.4 F 105 H 16 117/61 96 04/20/20 19:38 04/20/20 19:38 04/20/20 19:38 04/20/20 19:38 04/20/20 19:38 Intake & Output 04/19/20 04/20/20 04/21/20 06:59 06:59 06:59 Intake Total 4000 Output Total 100 Balance 3900 Weight 66 kg General appearance: PRESENT: cooperative, mild distress Head exam: PRESENT: atraumatic, normocephalic Eye exam: PRESENT: EOMI, PERRLA Ear exam: PRESENT: normal external ear exam Mouth exam: PRESENT: moist Neck exam: PRESENT: tracheostomy Respiratory exam: PRESENT: rales, symmetrical, unlabored. ABSENT: tachypnea, wheezes Cardiovascular exam: PRESENT: RRR, +S1, +S2 Pulses: PRESENT: +2 pedal pulses bilateral GI/Abdominal exam: PRESENT: normal bowel sounds, soft. ABSENT: rebound, tenderness Extremities exam: ABSENT: +2 edema Musculoskeletal exam: PRESENT: other - Week lower extremity from deconditioning Neurological exam: PRESENT: alert, awake, oriented to person, oriented to place, oriented to time, oriented to situation Results Laboratory Results: 04/20/20 09:00 04/20/20 09:00 04/20/20 04/20/20 04/20/20 06:26 06:46 09:00 WBC 19.5 H RBC 3.19 L Hgb 8.8 L Hct 26.8 L MCV 84 MCH 27.4 MCHC 32.6 RDW 17.6 H Plt Count 550 H Seg Neutrophils % Not Reportable Carbonic Acid 1.79 H HCO3/H2CO3 Ratio 16:1 ABG pH 7.31 L ABG pCO2 59.6 H ABG pO2 50.6 L ABG HCO3 29.3 H ABG O2 Saturation 81.5 L ABG Base Excess 2.3 FiO2 100% Sodium Potassium Chloride Carbon Dioxide Anion Gap BUN Creatinine Est GFR ( Amer) Glucose Lactic Acid Calcium Total Bilirubin AST Alkaline Phosphatase Total Protein Albumin Lipase Urine Color DARRICK Urine Appearance CLOUDY Urine pH 5.0 Ur Specific [place] 1.020 Urine Protein 100 H Urine Glucose (UA) NEGATIVE Urine Ketones NEGATIVE Urine Blood SMALL H Urine Nitrite NEGATIVE Ur Leukocyte Esterase LARGE H Urine WBC (Auto) >182 Urine RBC (Auto) 59 04/20/20 04/20/20 09:00 09:00 WBC RBC Hgb Hct MCV MCH MCHC RDW Plt Count Seg Neutrophils % Carbonic Acid HCO3/H2CO3 Ratio ABG pH ABG pCO2 ABG pO2 ABG HCO3 ABG O2 Saturation ABG Base Excess FiO2 Sodium 144.5 Potassium 4.3 Chloride 103 Carbon Dioxide 30 Anion Gap 12 BUN 31 H Creatinine 1.01 Est GFR ( Amer) > 60 Glucose 108 Lactic Acid 1.5 Calcium 9.1 Total Bilirubin 0.3 AST 13 L Alkaline Phosphatase 143 H Total Protein 6.5 Albumin 2.7 L Lipase < 10.0 L Urine Color Urine Appearance Urine pH Ur Specific [place] Urine Protein Urine Glucose (UA) Urine Ketones Urine Blood Urine Nitrite Ur Leukocyte Esterase Urine WBC (Auto) Urine RBC (Auto) 04/20/20 09:00 Troponin I < 0.012 NT-Pro-B Natriuret Pep 86576 H Assessment and Plan - Diagnosis (1) Respiratory failure, [id number] Qualifiers: Respiratory failure complication: hypoxia Is this a current diagnosis for this admission?: Yes Plan: -Episode of desaturation at [facility] and in the ED -Patient had previously admitted at [facility] for 89 days due to acute respiratory failure with hypoxia secondary to severe cough with pneumonia. -Apparently desaturated to 86% on trach collar and was briefly put back on mechanical ventilation. I was able to transition him to again a trach collar and he tolerated this maintaining a saturation at 95% on 6 L of trach collar -Chest x-ray April 20, 2020 showed relatively low lung volumes without pneumothorax. Minimal interstitial changes. Stable cardiomediastinal silhouette. -I suspect that his desaturation is secondary to his low blood pressure and the pulse ox unable to properly cigar packer and picker his O2 saturation -We will keep him on the trach collar and hopefully transition him to nasal cannula -Continue duo nebs -Please do not put him back on mechanical ventilation without talking to attending physician (2) Hypoglycemia associated with type 2 diabetes mellitus Is this a current diagnosis for this admission?: Yes Plan: - patient has type 2 DM with poor oral intake - came in with BG 30 -Hypoglycemia protocol in place -Accu-Cheks AC at bedtime (3) Leukocytosis Qualifiers: Leukocytosis type: unspecified Is this a current diagnosis for this admission?: Yes Plan: - WBC 19.5 -Afebrile -UA no signs of UTI -X-ray findings stable -Blood cultures pending -This likely reactive from dehydration and hypoglycemia -Received aztreonam and Vanco in the ED -Will hold off on antibiotics for now as he has received multiple courses of it during his prolonged stay here in [place]. (4) COVID-19 Is this a current diagnosis for this admission?: Yes Plan: -He was just discharged from a prolonged stay due to severe COVID pneumonia -No need to retest -The need to monitor (5) Critical illness myopathy Is this a current diagnosis for this admission?: Yes Plan: -This is due to his prolonged hospital stay secondary to severe cough with pneumonia - Was sent to [facility] for continued rehabilitation -Plan to send him back there once stable (6) Dysphagia Qualifiers: Dysphagia type: oropharyngeal phase Qualified Code(s): R13.12 - Dysphagia, oropharyngeal phase Is this a current diagnosis for this admission?: Yes Plan: -Used PEG tube and NG tube in the past -Has been told several times in the past that he has higher risk for aspiration but he continues to eat regular food and he seems to understand the risk for a spiration pneumonia -Continue to monitor. Repeat chest x-ray done in the ED not concerning for aspi ration pneumonia (7) Hypotension Qualifiers: Hypotension type: unspecified hypotension type Qualified Code(s): I95.9 - Hypotension, unspecified Is this a current diagnosis for this admission?: Yes Plan: - BP systolic 80s - low suspicion for sepsis - improved with 4L of IV fluids - continue IV fluids - continue to monitor - Time Time Spent with patient: 25-34 minutes Anticipated Discharge Disposition: Residential Facility Anticipated Discharge Timeframe: to be determined
[2020-04-20] MEDS: LACTULOSE SYRUP 20 GM/30 ML UDCUP PO SCH (23:12)
[2020-04-20] MEDS: LISINOPRIL 5 MG TABLET PO SCH (23:13)
[2020-04-21] MEDS ORDERED: MEROPENEM 1 GM VIAL IV SCH (02:45)
[2020-04-21] MEDS: IPRATROPIUM/ALBUTEROL 0.5-2.5 MG/3 ML AMPUL NEB PRN (03:56)
[2020-04-21] MEDS: DEXTROSE 5%-LACTATED RINGERS 1,000 ML IV PRN ×2 (03:57→17:36)
[2020-04-21] MEDS ORDERED: MEROPENEM 1 GM VIAL ONE (04:34)
[2020-04-21] MEDS: MEROPENEM 1 GM in NORMAL SALINE 50 ML IV SCH ×3 (05:30→22:30)
[2020-04-21] MEDS: HEPARIN SOD (PORCINE) 5,000 UNIT/ML 1 ML VIAL SUBCUT SCH ×3 (05:48→23:30)
[2020-04-21] MEDS: DIPHENHYDRAMINE HCL 50 MG/ML VIAL IV PRN ×2 (05:48→23:53)
[2020-04-21 06:52] LABS: HEMATOCRIT 21.9 % (37.9-51.0); MEAN CORPUSCULAR HEMOGLOBIN 27.1 pg (27.0-33.4); MEAN CORPUSCULAR HGB CONC 31.9 g/dL (32.0-36.0); MEAN CORPUSCULAR VOLUME 85 fl (80-97); PLATELET COUNT 489 10^3/uL (150-450); RED BLOOD COUNT 2.58 10^6/uL (4.35-5.55); RED CELL DISTRIBUTION WIDTH 17.7 % (11.5-14.0)
[2020-04-21 07:10] LABS: ALBUMIN 2.1 g/dL (3.5-5.0); ALKALINE PHOSPHATASE 126 U/L (38-126); ANION GAP 9 (5-19); ASPARTATE AMINO TRANSFERASE 12 U/L (17-59); BILIRUBIN,DIRECT 0.3 mg/dL (0.0-0.4); BILIRUBIN,TOTAL 0.3 mg/dL (0.2-1.3); BLOOD UREA NITROGEN 24 mg/dL (7-20); CALCIUM 8.3 mg/dL (8.4-10.2); CARBON DIOXIDE 25 mmol/L (22-30); CHLORIDE 108 mmol/L (98-107); GLUCOSE 98 mg/dL (75-110); POTASSIUM 3.7 mmol/L (3.6-5.0)
[2020-04-21 07:34] LABS: ABSOLUTE LYMPHOCYTES# (MANUAL) 1.5 10^3/uL (0.5-4.7); BASOPHILS % (MANUAL) 0 % (0-2); EOSINOPHILS % (MANUAL) 0 % (0-6); LYMPHOCYTES % (MANUAL) 5 % (13-45); MONOCYTES % (MANUAL) 0 % (3-13); SEGMENTED NEUTROPHILS % (MAN) 95 % (42-78); TOTAL CELLS COUNTED 100
[2020-04-21 07:35] LABS: ANISOCYTOSIS 1+; OVALOCYTES SLIGHT; PLATELET COMMENT INCREASED; POIKILOCYTOSIS SLIGHT
[2020-04-21] MEDS ORDERED: FUROSEMIDE INJ/PF 20 MG/2 ML SDV IV PRN (08:33)
[2020-04-21] MEDS ORDERED: NORMAL SALINE 250 ML IV PRN ×2 (08:33)
--- NOTE | 2020-04-21 09:22 | PDOC PROGRESS REPORT ---
Subjective Progress Note for:: 04/21/20 Subjective:: Patient was readmitted yesterday. Of note he has slightly thinner yellowish secretions from the trach. When I last saw him it was slightly thick of whitaker- colored secretions but he was developing a strong cough. His hemoglobin is now only 7.0 with blood cultures positive for enterococcus. His urine culture will be positive based on his urinalysis. It is likely enterococcus as well. The vancomycin-resistant gene was negative for the enterococcus. His Varner catheter still in place. Reason For Visit: ACUTE HYPOXIC RESPIRATORY FAILURE, HYPOTENSION Physical Exam Vital Signs: Temp Pulse Resp BP Pulse Ox 99.0 F 107 H 17 109/65 96 04/21/20 08:23 04/21/20 08:23 04/21/20 08:23 04/21/20 08:23 04/21/20 08:23 Intake & Output 04/20/20 04/21/20 04/22/20 06:59 06:59 06:59 Intake Total 5310 Output Total 250 Balance 5060 Weight 59.4 kg General appearance: PRESENT: cooperative, mild distress, thin, well-developed Head exam: PRESENT: atraumatic, normocephalic Eye exam: PRESENT: conjunctiva pale. ABSENT: conjunctival injection, scleral icterus Ear exam: PRESENT: normal external ear exam. ABSENT: bleeding, drainage Mouth exam: PRESENT: moist, tongue midline Teeth exam: PRESENT: poor dentation Neck exam: PRESENT: tracheostomy. ABSENT: carotid bruit, JVD, lymphadenopathy, thyromegaly, tracheal deviation Respiratory exam: PRESENT: clear to auscultation yousif - Anteriorly. ABSENT: accessory muscle use, decreased breath sounds, prolonged expiratory phas, rales, rhonchi, tachypnea, wheezes Cardiovascular exam: PRESENT: RRR, +S1, +S2. ABSENT: bradycardia, diastolic murmur, irregular rhythm, systolic murmur, tachycardia GI/Abdominal exam: PRESENT: normal bowel sounds, soft. ABSENT: distended, guarding, tenderness Rectal exam: PRESENT: deferred Gentrourinary exam: PRESENT: indwelling catheter Extremities exam: PRESENT: joint swelling - Postsurgical knee changes chronic. ABSENT: pedal edema Neurological exam: PRESENT: alert, awake, oriented to person, oriented to place, oriented to time, oriented to situation, CN II-XII grossly intact. ABSENT: altered Psychiatric exam: PRESENT: appropriate affect. ABSENT: agitated, anxious Focused psych exam: ABSENT: delusional, paranoid, restlessness Skin exam: PRESENT: pallor Results Laboratory Results: 04/21/20 05:30 04/21/20 05:30 04/20/20 04/20/20 04/20/20 09:00 09:00 09:00 WBC 19.5 H RBC 3.19 L Hgb 8.8 L Hct 26.8 L MCV 84 MCH 27.4 MCHC 32.6 RDW 17.6 H Plt Count 550 H Seg Neutrophils % Not Reportable Sodium 144.5 Potassium 4.3 Chloride 103 Carbon Dioxide 30 Anion Gap 12 BUN 31 H Creatinine 1.01 Est GFR ( Amer) > 60 Glucose 108 Lactic Acid 1.5 Calcium 9.1 Total Bilirubin 0.3 AST 13 L Alkaline Phosphatase 143 H Total Protein 6.5 Albumin 2.7 L Lipase < 10.0 L 04/21/20 04/21/20 05:30 05:30 WBC 29.0 H RBC 2.58 L Hgb 7.0 L Hct 21.9 L MCV 85 MCH 27.1 MCHC 31.9 L RDW 17.7 H Plt Count 489 H Seg Neutrophils % Not Reportable Sodium 141.9 Potassium 3.7 Chloride 108 H Carbon Dioxide 25 Anion Gap 9 BUN 24 H Creatinine 0.84 Est GFR ( Amer) > 60 Glucose 98 Lactic Acid Calcium 8.3 L Total Bilirubin 0.3 AST 12 L Alkaline Phosphatase 126 Total Protein 5.0 L Albumin 2.1 L Lipase 04/20/20 09:00 Troponin I < 0.012 NT-Pro-B Natriuret Pep 59312 H Assessment and Plan - Diagnosis (1) Bacteremia due to Enterococcus Is this a current diagnosis for this admission?: Yes Plan: 04/21/2020-isolated from blood cultures drawn from the right hand and his line. Await final sensitivities so that I may narrow the antibiotic spectrum. (2) Acute on chronic respiratory failure with hypoxia and hypercapnia Is this a current diagnosis for this admission?: Yes Plan: 04/21/2020-continue trach collar. When appropriate start capping trials with nasal cannula oxygen. (3) Critical illness myopathy Is this a current diagnosis for this admission?: Yes Plan: 04/21/2020-resume physical therapy (4) Candiduria Is this a current diagnosis for this admission?: Yes Plan: 04/21/2020-greater than 100,000 Leah isolated. The patient does have an indwelling Varner catheter. It is likely colonization. Will monitor closely. No specific treatment at this time. Goal is to remove the Varner catheter. (5) Leukocytosis Qualifiers: Leukocytosis type: unspecified Is this a current diagnosis for this admission?: Yes Plan: 04/21/2020-secondary to infection. Will monitor and that should resolve with antibiotic therapy. (6) Dysphagia Qualifiers: Dysphagia type: oropharyngeal phase Qualified Code(s): R13.12 - Dysphagia, oropharyngeal phase Is this a current diagnosis for this admission?: Yes Plan: 04/21/2020-resume speech therapy (7) Hypotension Qualifiers: Hypotension type: unspecified hypotension type Qualified Code(s): I95.9 - Hypotension, unspecified Is this a current diagnosis for this admission?: Yes Plan: 04/21/2020-hypotension resolved - Time Time Spent with patient: 15-24 minutes Medications reviewed and adjusted accordingly: Yes Anticipated Discharge Disposition: [facility] Anticipated Discharge Timeframe: unknown
[2020-04-21] MEDS: OXYCODONE-ACETAMINOPHEN 5-325 MG TABLET PO PRN (09:44)
[2020-04-21] MEDS: LISINOPRIL 5 MG TABLET PO SCH (09:44)
[2020-04-21] MEDS: FUROSEMIDE 20 MG TABLET PO SCH (09:46)
[2020-04-21] MEDS: THIAMINE HCL 100 MG TABLET PO SCH (09:46)
[2020-04-21] MEDS: INSULIN GLARGINE,HUM.REC.ANLOG 1,000 UNIT/10 ML VIAL SUBCUT SCH (09:47)
[2020-04-21] MEDS: SENNOSIDES/DOCUSATE 8.6-50 MG 1 EACH TABLET PO SCH (09:47)
[2020-04-21] MEDS: INSULIN LISPRO 100 UNIT/ML 3 ML VIAL SUBCUT SCH ×3 (09:47→16:57)
[2020-04-21] MEDS: LACTULOSE SYRUP 20 GM/30 ML UDCUP PO SCH (09:48)
[2020-04-21] MEDS ORDERED: METOPROLOL SUCCINATE 25 MG TAB.SR.24H PO SCH (10:00)
[2020-04-21] MEDS: DIPHENHYDRAMINE HCL 50 MG CAPSULE PO PRN (11:48)
[2020-04-21] MEDS: HYDROMORPHONE HCL INJ/PF 2 MG/ML AMPULE IV PRN (14:01)
[2020-04-21] MEDS ORDERED: DEXTROSE 5%-LACTATED RINGERS 1,000 ML IV PRN (18:24)
[2020-04-22] MEDS: HYDROMORPHONE HCL INJ/PF 2 MG/ML AMPULE IV PRN ×4 (00:19→21:16)
[2020-04-22] MEDS: LACTULOSE SYRUP 20 GM/30 ML UDCUP PO SCH ×3 (00:20→22:19)
[2020-04-22] MEDS: INSULIN LISPRO 100 UNIT/ML 3 ML VIAL SUBCUT SCH ×5 (00:20→22:18)
[2020-04-22] MEDS: LISINOPRIL 5 MG TABLET PO SCH ×3 (00:21→22:19)
[2020-04-22] MEDS: IPRATROPIUM/ALBUTEROL 0.5-2.5 MG/3 ML AMPUL NEB PRN ×3 (03:13→20:54)
[2020-04-22] MEDS: MEROPENEM 1 GM in NORMAL SALINE 50 ML IV SCH (05:32)
[2020-04-22] MEDS: HEPARIN SOD (PORCINE) 5,000 UNIT/ML 1 ML VIAL SUBCUT SCH ×3 (06:56→22:15)
[2020-04-22] MEDS ORDERED: VANCOMYCIN HCL 0 MG in DEXTROSE 5%-WATER 250 ML IV NR (08:00)
[2020-04-22] MEDS: DIPHENHYDRAMINE HCL 50 MG/ML VIAL IV PRN ×2 (08:44→18:48)
[2020-04-22 10:03] LABS: ABSOLUTE BASOPHILS # (AUTO) 0.1 10^3/uL (0.0-0.2); ABSOLUTE EOSINOPHILS # (AUTO) 0.1 10^3/uL (0.0-0.6); ABSOLUTE LYMPHOCYTES (AUTO) 1.2 10^3/uL (0.5-4.7); ABSOLUTE MONOCYTES (AUTO) 1.3 10^3/uL (0.1-1.4); ABSOLUTE NEUT (AUTO) 15.5 10^3/uL (1.7-8.2); BASOPHILS % (AUTO) 0.4 % (0-2); EOSINOPHILS % (AUTO) 0.4 % (0-6); HEMATOCRIT 31.1 % (37.9-51.0); LYMPHOCYTES % (AUTO) 6.7 % (13-45); MEAN CORPUSCULAR HEMOGLOBIN 28.2 pg (27.0-33.4); MEAN CORPUSCULAR HGB CONC 33.1 g/dL (32.0-36.0); MEAN CORPUSCULAR VOLUME 85 fl (80-97); MONOCYTES % (AUTO) 7.2 % (3-13); PLATELET COUNT 505 10^3/uL (150-450); RED BLOOD COUNT 3.65 10^6/uL (4.35-5.55); RED CELL DISTRIBUTION WIDTH 16.5 % (11.5-14.0); SEGMENTED NEUTROPHILS % (AUTO) 85.3 % (42-78); TOTAL CELLS COUNTED % (AUTO) 100 %; WHITE BLOOD COUNT 18.2 10^3/uL (4.0-10.5)
[2020-04-22 10:08] LABS: HEMOGLOBIN 10.3 g/dL (13.5-17.0)
[2020-04-22] MEDS: VANCOMYCIN HCL 500 MG in DEXTROSE 5%-WATER 100 ML IV SCH ×2 (10:09→22:51)
[2020-04-22] MEDS: SENNOSIDES/DOCUSATE 8.6-50 MG 1 EACH TABLET PO SCH (10:10)
[2020-04-22] MEDS: PROMETHAZINE HCL INJ 25 MG/1 ML VIAL IV PRN ×3 (10:10→20:56)
[2020-04-22] MEDS: THIAMINE HCL 100 MG TABLET PO SCH (10:10)
[2020-04-22] MEDS: METOPROLOL SUCCINATE 25 MG TAB.SR.24H PO SCH (10:11)
[2020-04-22] MEDS: FUROSEMIDE 20 MG TABLET PO SCH (10:11)
[2020-04-22] MEDS: INSULIN GLARGINE,HUM.REC.ANLOG 1,000 UNIT/10 ML VIAL SUBCUT SCH (10:11)
--- NOTE | 2020-04-22 11:52 | PDOC PROGRESS REPORT ---
Subjective Progress Note for:: 04/22/20 Subjective:: Patient appears very weak. Yellow mucus being suctioned from the endotracheal tube. Working to get back to 6 L/min for his trach collar. Reason For Visit: ACUTE HYPOXIC RESPIRATORY FAILURE, HYPOTENSION Physical Exam Vital Signs: Temp Pulse Resp BP Pulse Ox 97.9 F 101 H 16 145/78 H 92 04/22/20 08:37 04/22/20 09:40 04/22/20 09:40 04/22/20 08:37 04/22/20 09:40 Intake & Output 04/21/20 04/22/20 04/23/20 06:59 06:59 06:59 Intake Total 5310 1970 1050 Output Total 250 1550 Balance 5060 420 1050 Weight 59.4 kg 54.1 kg General appearance: PRESENT: cooperative, mild distress, thin, well-developed Head exam: PRESENT: atraumatic, normocephalic Eye exam: PRESENT: conjunctiva pale, EOMI. ABSENT: scleral icterus Ear exam: PRESENT: normal external ear exam. ABSENT: bleeding, drainage Mouth exam: PRESENT: moist, tongue midline Neck exam: PRESENT: tracheostomy. ABSENT: carotid bruit, JVD, lymphadenopathy Respiratory exam: PRESENT: prolonged expiratory phas, rhonchi - Right lung, unlabored. ABSENT: clear to auscultation yousif, rales, tachypnea, wheezes Cardiovascular exam: PRESENT: RRR, +S1, +S2 Extremities exam: ABSENT: pedal edema Musculoskeletal exam: PRESENT: other - Decreased muscle mass Results Laboratory Results: 04/22/20 08:51 04/21/20 05:30 04/21/20 04/22/20 09:02 08:51 WBC 18.2 H RBC 3.65 L Hgb 10.3 L D Hct 31.1 L MCV 85 MCH 28.2 MCHC 33.1 RDW 16.5 H Plt Count 505 H Seg Neutrophils % 85.3 H Blood Type A POSITIVE Antibody Screen NEGATIVE 04/20/20 09:00 Blood Blood Culture (PCR) - Final Enterococcus Species 04/20/20 09:00 Blood Blood Culture - Final Enterococcus Faecalis(Group D) 04/20/20 09:00 Blood Blood Culture (PCR) - Final Enterococcus Species 04/20/20 09:00 Blood Blood Culture - Final Enterococcus Faecalis(Group D) 10/03/20 06:18 Varner Catheter Urine Culture - Final C.albicans/C.dubliniensis 04/20/20 09:00 Troponin I < 0.012 NT-Pro-B Natriuret Pep 21658 H Assessment and Plan - Diagnosis (1) Bilateral pneumonia Qualifiers: Pneumonia type: due to unspecified organism Lung location: lower lobe of lung Qualified Code(s): J18.9 - Pneumonia, unspecified organism Is this a current diagnosis for this admission?: Yes Plan: 04/22/2020-chest x-ray today is markedly different from the chest x-ray on admission. Chest x-ray reveals bilateral infiltrates. The worst of these are at the right base. Gram stain reveals gram-positive cocci in clusters. We will continue vancomycin and cefepime. We need to consider n.p.o. status although the patient is extremely noncompliant. Will monitor closely. He does have a cuffed trach in place. We will try and avoid using the ventilator if possible. With a tracheostomy in place BiPAP is an inappropriate modality. (2) Bacteremia due to Enterococcus Is this a current diagnosis for this admission?: Yes Plan: 04/21/2020-isolated from blood cultures drawn from the right hand and his line. Await final sensitivities so that I may narrow the antibiotic spectrum. 04/22/2020-continue vancomycin (3) Acute on chronic respiratory failure with hypoxia and hypercapnia Is this a current diagnosis for this admission?: Yes Plan: 04/21/2020-continue trach collar. When appropriate start capping trials with nasal cannula oxygen. 04/22/2020-marked difference in chest x-ray from admission to today. Bilateral pneumonia. With tracheostomy in place standard BiPAP is ineffective. He may need to use the ventilator. He does have a cuffed trach so this would be an easy transition. (4) Critical illness myopathy Is this a current diagnosis for this admission?: Yes Plan: 04/21/2020-resume physical therapy 04/22/2020-due to marked infection PT today is not appropriate. Will monitor closely each day and resume physical therapy when the patient's general condition improves. (5) Candiduria Is this a current diagnosis for this admission?: Yes Plan: 04/21/2020-greater than 100,000 Leah isolated. The patient does have an indwelling Varner catheter. It is likely colonization. Will monitor closely. No specific treatment at this time. Goal is to remove the Varner catheter. 04/22/2020-no antifungal at this time (6) Leukocytosis Qualifiers: Leukocytosis type: unspecified Qualified Code(s): D72.829 - Elevated white blood cell count, unspecified Is this a current diagnosis for this admission?: Yes Plan: 04/21/2020-secondary to infection. Will monitor and that should resolve with antibiotic therapy. 04/22/2020-improving with antibiotics (7) Dysphagia Qualifiers: Dysphagia type: oropharyngeal phase Qualified Code(s): R13.12 - Dysphagia, oropharyngeal phase Is this a current diagnosis for this admission?: Yes Plan: 04/21/2020-resume speech therapy 04/22/2020-due to the significant change in chest x-ray consider n.p.o. status with a nasogastric tube/Dobbhoff for tube feeding (8) Hypotension Qualifiers: Hypotension type: unspecified hypotension type Qualified Code(s): I95.9 - Hypotension, unspecified Is this a current diagnosis for this admission?: Yes Plan: 04/21/2020-hypotension resolved - Time Time Spent with patient: 15-24 minutes Medications reviewed and adjusted accordingly: Yes Anticipated Discharge Disposition: Nursing Home Facility Anticipated Discharge Timeframe: Unknown
[2020-04-22 12:31] LABS: ARTERIAL BLOOD BASE EXCESS 2.9 mmol/L; ARTERIAL BLOOD O2 SATURATION 92.5 % (94-98); ARTERIAL BLOOD PCO2 39.9 mmHg (35-45); ARTERIAL BLOOD PH 7.45 (7.35-7.45); ARTERIAL BLOOD PO2 61.3 mmHg (80-100); ARTERIAL BLOOD TOTAL CO2 28.3 mmol/L (23-27)
[2020-04-22 12:32] LABS: ARTERIAL BLOOD FIO2 100%
[2020-04-22] MEDS: CEFEPIME HCL 1 GM in DEXTROSE 5%-WATER 50 ML IV SCH ×2 (13:30→22:14)
--- NOTE | 2020-04-22 15:23 | RADIOLOGY REPORT (SQ) ---
EXAM DESCRIPTION: CHEST SINGLE VIEW IMAGES COMPLETED DATE/TIME: 04/22/2020 2:09 pm REASON FOR STUDY: resp failure COMPARISON: 04/20/2020 EXAM PARAMETERS: NUMBER OF VIEWS: One view. TECHNIQUE: Single frontal radiographic view of the chest acquired. RADIATION DOSE: NA LIMITATIONS: None. FINDINGS: LUNGS AND PLEURA: Worsening multifocal patchy airspace disease throughout both lungs, grea test within the right lung base. No large effusion. No pneumothorax. MEDIASTINUM AND HILAR STRUCTURES: Stable. HEART AND VASCULAR STRUCTURES: Enlarged cardiac silhouette with central vascular congestion. BONES: No acute findings. Cervical fusion hardware. HARDWARE: Tracheostomy tube tip overlies midline proximal thoracic trachea. Cervical fusion hardware . OTHER: No other significant finding. IMPRESSION: Worsening bilateral airspace disease, greatest within the right lung base. Stable large cardiac silhouette and central vascular congestion. TECHNICAL DOCUMENTATION: JOB ID: [id number] 2010 [employer]- All Rights Reserved Reading location - IP/workstation name: [email or web address]
[2020-04-22] MEDS ORDERED: CEFEPIME 1 GM/D5W RTU 1 GM/50 ML RTUPB IV SCH (22:00)
[2020-04-23] MEDS: DEXTROSE 5%-NORMAL SALINE 1,000 ML IV PRN ×2 (00:34→15:43)
[2020-04-23] MEDS ORDERED: NITROGLYCERIN 2% OINTMENT 1 GM PACKET TP ONE (01:45)
[2020-04-23 02:57] LABS: CREATINE KINASE MB 2.2 ng/mL (<4.55); TROPONIN I 0.082 ng/mL
[2020-04-23] MEDS ORDERED: NITROGLYCERIN 2% OINTMENT 1 GM PACKET TP SCH (03:00)
[2020-04-23] MEDS: NITROGLYCERIN 2% OINTMENT 1 GM PACKET TP SCH ×4 (06:16→23:50)
[2020-04-23] MEDS: HEPARIN SOD (PORCINE) 5,000 UNIT/ML 1 ML VIAL SUBCUT SCH ×3 (06:16→21:39)
[2020-04-23 06:57] LABS: HEMATOCRIT 30.4 % (37.9-51.0); HEMOGLOBIN 10.1 g/dL (13.5-17.0); MEAN CORPUSCULAR HEMOGLOBIN 28.3 pg (27.0-33.4); MEAN CORPUSCULAR HGB CONC 33.2 g/dL (32.0-36.0); MEAN CORPUSCULAR VOLUME 85 fl (80-97); PLATELET COUNT 464 10^3/uL (150-450); RED BLOOD COUNT 3.57 10^6/uL (4.35-5.55); RED CELL DISTRIBUTION WIDTH 16.3 % (11.5-14.0); WHITE BLOOD COUNT 18.5 10^3/uL (4.0-10.5)
[2020-04-23 07:32] LABS: ABSOLUTE LYMPHOCYTES# (MANUAL) 1.1 10^3/uL (0.5-4.7); ABSOLUTE MONOCYTES # (MANUAL) 0.6 10^3/uL (0.1-1.4); BASOPHILS % (MANUAL) 0 % (0-2); CREATINE KINASE < 20 U/L (55-170); EOSINOPHILS % (MANUAL) 0 % (0-6); LYMPHOCYTES % (MANUAL) 6 % (13-45); MONOCYTES % (MANUAL) 3 % (3-13); SEGMENTED NEUTROPHILS % (MAN) 91 % (42-78); TOTAL CELLS COUNTED 100
[2020-04-23 07:34] LABS: ANISOCYTOSIS 1+; OVALOCYTES 1+; PLATELET COMMENT INCREASED; POIKILOCYTOSIS 1+; STOMATOCYTES 1+
[2020-04-23 07:41] LABS: ALBUMIN 2.2 g/dL (3.5-5.0); ALKALINE PHOSPHATASE 130 U/L (38-126); ANION GAP 5 (5-19); ASPARTATE AMINO TRANSFERASE 9 U/L (17-59); BILIRUBIN,DIRECT 0.3 mg/dL (0.0-0.4); BILIRUBIN,TOTAL 0.4 mg/dL (0.2-1.3); BLOOD UREA NITROGEN 18 mg/dL (7-20); CALCIUM 8.3 mg/dL (8.4-10.2); CARBON DIOXIDE 30 mmol/L (22-30); CHLORIDE 108 mmol/L (98-107); GLUCOSE 147 mg/dL (75-110); POTASSIUM 3.6 mmol/L (3.6-5.0); TOTAL PROTEIN 5.3 g/dL (6.3-8.2)
[2020-04-23] MEDS: IPRATROPIUM/ALBUTEROL 0.5-2.5 MG/3 ML AMPUL NEB PRN (07:48)
[2020-04-23] MEDS: INSULIN LISPRO 100 UNIT/ML 3 ML VIAL SUBCUT SCH ×4 (08:32→22:21)
[2020-04-23 09:27] LABS: CREATINE KINASE MB 2.24 ng/mL (<4.55)
[2020-04-23 09:35] LABS: TROPONIN I 0.066 ng/mL
[2020-04-23] MEDS: INSULIN GLARGINE,HUM.REC.ANLOG 1,000 UNIT/10 ML VIAL SUBCUT SCH (09:59)
[2020-04-23] MEDS: SENNOSIDES/DOCUSATE 8.6-50 MG 1 EACH TABLET PO SCH (10:04)
[2020-04-23] MEDS: LISINOPRIL 5 MG TABLET PO SCH ×2 (10:04→21:04)
[2020-04-23] MEDS: LACTULOSE SYRUP 20 GM/30 ML UDCUP PO SCH ×2 (10:04→21:04)
[2020-04-23] MEDS: FUROSEMIDE 20 MG TABLET PO SCH (10:04)
[2020-04-23] MEDS: THIAMINE HCL 100 MG TABLET PO SCH (10:05)
[2020-04-23] MEDS: METOPROLOL SUCCINATE 25 MG TAB.SR.24H PO SCH (10:05)
[2020-04-23] MEDS: CEFEPIME HCL 1 GM in DEXTROSE 5%-WATER 50 ML IV SCH ×2 (10:17→21:39)
[2020-04-23] MEDS: SCOPOLAMINE HYDROBROMIDE 1.5 MG PATCH.TD72 TD SCH (10:20)
[2020-04-23] MEDS: VANCOMYCIN HCL 500 MG in DEXTROSE 5%-WATER 100 ML IV SCH ×2 (11:13→22:24)
[2020-04-23] MEDS: HYDROMORPHONE HCL INJ/PF 2 MG/ML AMPULE IV PRN ×3 (11:22→23:49)
[2020-04-23] MEDS: DIPHENHYDRAMINE HCL 50 MG/ML VIAL IV PRN ×2 (11:23→18:46)
[2020-04-23] MEDS: PROMETHAZINE HCL INJ 25 MG/1 ML VIAL IV PRN ×2 (14:29→20:39)
[2020-04-23 15:33] LABS: CREATINE KINASE MB 2.09 ng/mL (<4.55); TROPONIN I 0.057 ng/mL
--- NOTE | 2020-04-23 17:08 | PDOC PROGRESS REPORT ---
Subjective Progress Note for:: 04/23/20 Subjective:: An COMPLIANCE PROJECT MANAGER got called on him last night. His saturations dropped into the 50s. He had to be placed on the BiPAP machine via tracheostomy after he was heavily suctioned and then his saturations came up into the 90s. He has been made n.p.o. BiPAP is not ideal for him, but it seems to be effective at this point. Reason For Visit: ACUTE HYPOXIC RESPIRATORY FAILURE, HYPOTENSION Physical Exam Vital Signs: Temp Pulse Resp BP Pulse Ox 97.6 F 104 H 16 143/86 H 99 04/23/20 11:49 04/23/20 14:00 04/23/20 16:40 04/23/20 11:49 04/23/20 16:40 Intake & Output 04/22/20 04/23/20 04/24/20 06:59 06:59 06:59 Intake Total 19690 1050 Output Total 1550 825 480 Balance 420 1225 570 Weight 54.1 kg 55.3 kg General appearance: PRESENT: cooperative, mild distress, thin, well-developed Head exam: PRESENT: atraumatic, normocephalic Eye exam: PRESENT: conjunctiva pale, EOMI. ABSENT: scleral icterus Ear exam: PRESENT: normal external ear exam. ABSENT: bleeding, drainage Mouth exam: PRESENT: moist, tongue midline Neck exam: PRESENT: tracheostomy. ABSENT: carotid bruit, JVD, lymphadenopathy Respiratory exam: PRESENT: rhonchi - Right lung, unlabored. ABSENT: clear to auscultation yousif, rales, tachypnea, wheezes Cardiovascular exam: PRESENT: RRR, +S1, +S2 Extremities exam: ABSENT: pedal edema Musculoskeletal exam: PRESENT: other - Decreased muscle mass Results Laboratory Results: 04/23/20 05:58 04/23/20 05:58 04/23/20 04/23/20 05:58 05:58 WBC 18.5 H RBC 3.57 L Hgb 10.1 L Hct 30.4 L MCV 85 MCH 28.3 MCHC 33.2 RDW 16.3 H Plt Count 464 H Seg Neutrophils % Not Reportable Sodium 142.5 Potassium 3.6 Chloride 108 H Carbon Dioxide 30 Anion Gap 5 BUN 18 Creatinine 0.77 Est GFR ( Amer) > 60 Glucose 147 H Calcium 8.3 L Magnesium 1.6 Total Bilirubin 0.4 AST 9 L Alkaline Phosphatase 130 H Total Protein 5.3 L Albumin 2.2 L 04/21/20 18:30 Tracheal Aspirate Gram Stain - Final 04/21/20 18:30 Tracheal Aspirate Sputum Culture - Final Mrsa (Meth Resis Staph Aureus) Yeast, Not Leah Albicans Normal Kathie Absent 04/20/20 04/23/20 04/23/20 09:00 01:55 01:55 Creatine Kinase < 20 L CK-MB (CK-2) 2.20 Troponin I < 0.012 0.082 NT-Pro-B Natriuret Pep 38998 H 04/23/20 04/23/20 04/23/20 05:58 08:22 14:50 Creatine Kinase < 20 L < 20 L CK-MB (CK-2) 2.24 Troponin I 0.066 NT-Pro-B Natriuret Pep 04/23/20 14:50 Creatine Kinase CK-MB (CK-2) 2.09 Troponin I 0.057 NT-Pro-B Natriuret Pep Impressions: Chest X-Ray 04/22/20 00:00 IMPRESSION: Worsening bilateral airspace disease, greatest within the right lung base. Stable large cardiac silhouette and central vascular congestion. Assessment and Plan - Diagnosis (1) Acute on chronic respiratory failure with hypoxia and hypercapnia Is this a current diagnosis for this admission?: Yes (2) Bacteremia due to Enterococcus Is this a current diagnosis for this admission?: Yes (3) Bilateral pneumonia Qualifiers: Pneumonia type: due to unspecified organism Lung location: lower lobe of lung Qualified Code(s): J18.9 - Pneumonia, unspecified organism Is this a current diagnosis for this admission?: Yes (4) Candiduria Is this a current diagnosis for this admission?: Yes (5) Hypoglycemia associated with type 2 diabetes mellitus Is this a current diagnosis for this admission?: Yes (6) Tracheostomy in place Is this a current diagnosis for this admission?: Yes - Plan Summary Summary: Continue current level of respiratory support. Continue inline suctioning as needed. We will continue his current antibiotics. His tracheal aspirate also grew out MRSA but he is probably colonized. He declined an NG tube today, but this is something that will have to be considered because he is recurrently aspirating and this is likely why he has enterococcus in his bloodstream. - Time Time Spent with patient: 25-34 minutes Anticipated Discharge Disposition: [facility] Facility Anticipated Discharge Timeframe: Pending clinical course
--- NOTE | 2020-04-23 17:39 | EKG REPORT ---
SEVERITY:- ABNORMAL ECG - SINUS TACHYCARDIA VENTRICULAR PREMATURE COMPLEX CONSIDER ANTEROSEPTAL INFARCT NONSPECIFIC T ABNORMALITIES, INFERIOR LEADS : Confirmed by: Sharlene Forte MD 23-Apr-2020 17:37:39
[2020-04-23 23:02] LABS: VANCOMYCIN,TROUGH 13.1 ug/mL (5.0-20.0)
[2020-04-23] MEDS: ONDANSETRON HCL INJ/PF 4 MG/2 ML SDV IV PRN (23:50)
[2020-04-24] MEDS: HYDROMORPHONE HCL INJ/PF 2 MG/ML AMPULE IV PRN ×4 (03:51→20:10)
[2020-04-24] MEDS: PROMETHAZINE HCL INJ 25 MG/1 ML VIAL IV PRN (03:52)
[2020-04-24] MEDS: DIPHENHYDRAMINE HCL 50 MG/ML VIAL IV PRN ×3 (03:52→19:53)
[2020-04-24] MEDS: HEPARIN SOD (PORCINE) 5,000 UNIT/ML 1 ML VIAL SUBCUT SCH ×3 (06:22→22:47)
[2020-04-24] MEDS: NITROGLYCERIN 2% OINTMENT 1 GM PACKET TP SCH ×3 (06:22→18:09)
[2020-04-24] MEDS: INSULIN LISPRO 100 UNIT/ML 3 ML VIAL SUBCUT SCH ×3 (09:46→17:39)
[2020-04-24] MEDS: INSULIN GLARGINE,HUM.REC.ANLOG 1,000 UNIT/10 ML VIAL SUBCUT SCH (09:46)
[2020-04-24] MEDS: METOPROLOL SUCCINATE 25 MG TAB.SR.24H PO SCH (09:56)
[2020-04-24] MEDS: LACTULOSE SYRUP 20 GM/30 ML UDCUP PO SCH ×2 (09:56→22:01)
[2020-04-24] MEDS: SENNOSIDES/DOCUSATE 8.6-50 MG 1 EACH TABLET PO SCH (09:56)
[2020-04-24] MEDS: FUROSEMIDE 20 MG TABLET PO SCH (09:56)
[2020-04-24] MEDS: THIAMINE HCL 100 MG TABLET PO SCH (09:56)
[2020-04-24] MEDS: LISINOPRIL 5 MG TABLET PO SCH ×2 (09:56→22:02)
[2020-04-24] MEDS: IPRATROPIUM/ALBUTEROL 0.5-2.5 MG/3 ML AMPUL NEB PRN ×2 (10:54→20:26)
[2020-04-24] MEDS: NORMAL SALINE IV SCH ×2 (11:22→22:48)
[2020-04-24] MEDS: CEFEPIME HCL IV SCH ×2 (11:22→22:48)
[2020-04-24] MEDS: DEXTROSE 5% IV SCH ×2 (11:27→22:53)
[2020-04-24] MEDS: VANCOMYCIN HCL IV SCH ×2 (11:27→22:53)
[2020-04-24] MEDS: WATER IV SCH ×2 (11:27→22:53)
--- NOTE | 2020-04-24 15:18 | EKG REPORT ---
SEVERITY:- ABNORMAL ECG - SINUS TACHYCARDIA PROBABLE LEFT VENTRICULAR HYPERTROPHY ANTERIOR Q WAVES, POSSIBLY DUE TO LVH : Confirmed by: Sharlene Forte MD 24-Apr-2020 15:17:02
--- NOTE | 2020-04-24 18:19 | PDOC PROGRESS REPORT ---
Subjective Progress Note for:: 04/24/20 Subjective:: FREDDIE LAZO JR is a 60 year old male, past medical history of type 2 diabetes hypertension CHF narcotic dependence CKD who was recently discharged from [facility] April 19, 2020 after being admitted for 89 days secondary to acute respiratory failure from COVID pneumonia. He was discharged with a tracheostomy tube uncuffed. Before discharge he has been able to speak and eat and the plan was to eventually remove the tracheostomy at [facility]. Sent back to the emergency room for evaluation of shortness of breath. EMS was called by the facility because the patient was diaphoretic with a blood glucose of 30 staff administered 1 mg glucagon in a tube and a half of oral glucose prior to EMS arrival and recheck of blood glucose was 40. Upon EMS arrival patient was pale with diminished breath sounds so he was placed on 15 L O2 via nonrebreather O2 sats went up to 86% and blood glucose was 147 upon ED arrival. In the emergency room he apparently continued to be hypoxic hence a trach cuff was placed and he was put back on mechanical ventilation briefly. He was also noted to be hypotensive hence central line was placed by Dr. Jean-Baptiste. Patient was given IV fluids. Repeat chest x-ray showed improvement of his diffuse bibasilar opacities compared from previous chest x-ray. Dr. Chandler evaluated him in the ED who felt that he does not need ICU admission. He was given 4 L of IV fluids. He was eventually transitioned to tracheal collar and was maintaining his O2 saturation to 95%. Patient was then admitted for further management. WBC count 19.5 in the ED he was given 1 dose of aztreonam and vancomycin. 04/24/2020. No acute events overnight. Patient persistently asking to be allowed to take p.o. diet, refusing to have PEG tube or TPN restarted. Patient was noted to have thick secretion with aspiration 2 days ago noted be expressing undigested food from his tracheal secretions. Reason For Visit: ACUTE HYPOXIC RESPIRATORY FAILURE, HYPOTENSION Physical Exam Vital Signs: Temp Pulse Resp BP Pulse Ox 98 F 99 11 L 148/88 H 100 04/24/20 15:11 04/24/20 15:11 04/24/20 17:16 04/24/20 15:11 04/24/20 17:16 Intake & Output 04/23/20 04/24/20 04/25/20 06:59 06:59 06:59 Intake Total 0 1050 360 Output Total 825 1275 400 Balance 1225 -225 -40 Weight 55.3 kg 54 kg General appearance: PRESENT: no acute distress, thin Head exam: PRESENT: atraumatic, normocephalic Respiratory exam: PRESENT: clear to auscultation yousif, other - Trach in place. ABSENT: rales, rhonchi, wheezes Cardiovascular exam: PRESENT: RRR. ABSENT: diastolic murmur, rubs, systolic murmur GI/Abdominal exam: PRESENT: normal bowel sounds, soft. ABSENT: distended, guarding, mass, organolmegaly, rebound, tenderness Neurological exam: PRESENT: alert, awake, oriented to person, oriented to place, oriented to time, oriented to situation, CN II-XII grossly intact. ABSENT: mot or sensory deficit Results Laboratory Results: 04/23/20 05:58 04/23/20 21:55 04/23/20 21:55 Creatinine 0.68 Est GFR ( Amer) > 60 04/21/20 18:30 Tracheal Aspirate Gram Stain - Final 04/21/20 18:30 Tracheal Aspirate Sputum Culture - Final Mrsa (Meth Resis Staph Aureus) Yeast, Not Leah Albicans Normal Kathie Absent 04/20/20 04/23/20 04/23/20 09:00 01:55 01:55 Creatine Kinase < 20 L CK-MB (CK-2) 2.20 Troponin I < 0.012 0.082 NT-Pro-B Natriuret Pep 04397 H 04/23/20 04/23/20 04/23/20 05:58 08:22 14:50 Creatine Kinase < 20 L < 20 L CK-MB (CK-2) 2.24 Troponin I 0.066 NT-Pro-B Natriuret Pep 04/23/20 14:50 Creatine Kinase CK-MB (CK-2) 2.09 Troponin I 0.057 NT-Pro-B Natriuret Pep Impressions: Chest X-Ray 04/22/20 00:00 IMPRESSION: Worsening bilateral airspace disease, greatest within the right lung base. Stable large cardiac silhouette and central vascular congestion. Assessment and Plan - Diagnosis (1) Acute on chronic respiratory failure with hypoxia and hypercapnia Is this a current diagnosis for this admission?: Yes Plan: Likely due to healthcare associated pneumonia or aspiration pneumonia. A sputum culture growing MRSA. Continue vancomycin. Follow sputum and blood culture. Aggressive pulmonary toileting, tracheostomy care, monitor for aspiration. Currently n.p.o. pending swallow evaluation. (2) Bacteremia due to Enterococcus Is this a current diagnosis for this admission?: Yes Plan: Enterococcus bacteremia sensitive to penicillins and vancomycin. Continue vancomycin. Repeat blood culture. Follow-up blood culture. (3) Bilateral pneumonia Qualifiers: Pneumonia type: due to unspecified organism Lung location: lower lobe of lung Qualified Code(s): J18.9 - Pneumonia, unspecified organism Is this a current diagnosis for this admission?: Yes Plan: As per #1. (4) Candiduria Is this a current diagnosis for this admission?: Yes Plan: Urine culture positive for Leah albicans. The patient does have an indwelling Varner catheter has been switched. This is likely contamination. Will monitor closely. No specific treatment at this time. Goal is to remove the Varner catheter. (5) Hypoglycemia associated with type 2 diabetes mellitus Is this a current diagnosis for this admission?: Yes Plan: History of type 2 diabetes, came in with very low blood glucose level, most likely due to low p.o. intake. Continue hypoglycemic protocol. (6) Tracheostomy in place Is this a current diagnosis for this admission?: Yes Plan: Continue tracheostomy care. Aggressive pulmonary toileting. - Plan Summary Summary: Continue current level of respiratory support. Continue inline suctioning as needed. We will continue his current antibiotics. His tracheal aspirate also grew out MRSA but he is probably colonized. He declined an NG tube today, but this is something that will have to be considered because he is recurrently aspirating and this is likely why he has enterococcus in his bloodstream. - Time Time Spent with patient: 35 or more minutes Medications reviewed and adjusted accordingly: Yes Anticipated [facility]charge [facility]position[facility] Anticipated Discharge Timeframe: when bed available
[2020-04-25] MEDS: DEXTROSE 5%-NORMAL SALINE 1,000 ML IV PRN ×2 (00:08→22:00)
[2020-04-25] MEDS: NITROGLYCERIN 2% OINTMENT 1 GM PACKET TP SCH ×5 (00:13→23:57)
[2020-04-25] MEDS: HYDROMORPHONE HCL INJ/PF 2 MG/ML AMPULE IV PRN ×5 (00:13→17:51)
[2020-04-25] MEDS: IPRATROPIUM/ALBUTEROL 0.5-2.5 MG/3 ML AMPUL NEB PRN ×2 (00:36→20:20)
[2020-04-25] MEDS: DIPHENHYDRAMINE HCL 50 MG/ML VIAL IV PRN ×2 (03:08→11:08)
[2020-04-25] MEDS: INSULIN LISPRO 100 UNIT/ML 3 ML VIAL SUBCUT SCH ×5 (05:04→23:27)
[2020-04-25] MEDS: HEPARIN SOD (PORCINE) 5,000 UNIT/ML 1 ML VIAL SUBCUT SCH ×3 (06:46→23:08)
[2020-04-25 07:55] LABS: ABSOLUTE BASOPHILS # (AUTO) 0.1 10^3/uL (0.0-0.2); ABSOLUTE EOSINOPHILS # (AUTO) 0.1 10^3/uL (0.0-0.6); ABSOLUTE LYMPHOCYTES (AUTO) 1.5 10^3/uL (0.5-4.7); ABSOLUTE MONOCYTES (AUTO) 0.9 10^3/uL (0.1-1.4); ABSOLUTE NEUT (AUTO) 8.7 10^3/uL (1.7-8.2); BASOPHILS % (AUTO) 0.9 % (0-2); EOSINOPHILS % (AUTO) 1.3 % (0-6); HEMATOCRIT 28.5 % (37.9-51.0); HEMOGLOBIN 9.2 g/dL (13.5-17.0); LYMPHOCYTES % (AUTO) 13.1 % (13-45); MEAN CORPUSCULAR HEMOGLOBIN 28.3 pg (27.0-33.4); MEAN CORPUSCULAR HGB CONC 32.4 g/dL (32.0-36.0); MEAN CORPUSCULAR VOLUME 87 fl (80-97); MONOCYTES % (AUTO) 7.7 % (3-13); PLATELET COUNT 431 10^3/uL (150-450); RED BLOOD COUNT 3.27 10^6/uL (4.35-5.55); RED CELL DISTRIBUTION WIDTH 16.2 % (11.5-14.0); TOTAL CELLS COUNTED % (AUTO) 100 %; WHITE BLOOD COUNT 11.3 10^3/uL (4.0-10.5)
[2020-04-25] MEDS ORDERED: INFLUENZA QUAD (6MOS+) 2020-21 VAC 0.5 ML SYR IM ONE (08:00)
[2020-04-25 08:17] LABS: ALBUMIN 2.1 g/dL (3.5-5.0); ALKALINE PHOSPHATASE 99 U/L (38-126); ANION GAP 5 (5-19); ASPARTATE AMINO TRANSFERASE 11 U/L (17-59); BILIRUBIN,DIRECT 0.4 mg/dL (0.0-0.4); BILIRUBIN,TOTAL 0.4 mg/dL (0.2-1.3); BLOOD UREA NITROGEN 14 mg/dL (7-20); CALCIUM 8.1 mg/dL (8.4-10.2); CARBON DIOXIDE 29 mmol/L (22-30); CHLORIDE 108 mmol/L (98-107); GLUCOSE 92 mg/dL (75-110); PHOSPHORUS 2.5 mg/dL (2.5-4.5); POTASSIUM 3.5 mmol/L (3.6-5.0); TOTAL PROTEIN 5.4 g/dL (6.3-8.2)
[2020-04-25] MEDS: FUROSEMIDE 20 MG TABLET PO SCH (09:37)
[2020-04-25] MEDS: METOPROLOL SUCCINATE 25 MG TAB.SR.24H PO SCH (09:38)
[2020-04-25] MEDS: LACTULOSE SYRUP 20 GM/30 ML UDCUP PO SCH ×2 (09:38→23:30)
[2020-04-25] MEDS: THIAMINE HCL 100 MG TABLET PO SCH (09:38)
[2020-04-25] MEDS: SENNOSIDES/DOCUSATE 8.6-50 MG 1 EACH TABLET PO SCH (09:38)
[2020-04-25] MEDS: LISINOPRIL 5 MG TABLET PO SCH ×2 (09:38→23:31)
[2020-04-25] MEDS: CEFEPIME HCL 1 GM in DEXTROSE 5%-WATER 50 ML IV SCH ×2 (09:44→23:08)
[2020-04-25] MEDS ORDERED: CEFEPIME HCL 1 GM in DEXTROSE 5%-WATER 50 ML IV SCH (10:00)
[2020-04-25] MEDS ORDERED: MAGNESIUM SULFATE/D5W 1 GM/100 ML RTUPB IV ONE ×2 (10:07→14:00)
[2020-04-25] MEDS: VANCOMYCIN HCL IV SCH ×2 (10:53→23:07)
[2020-04-25] MEDS: DEXTROSE 5% IV SCH ×2 (10:53→23:07)
[2020-04-25] MEDS: INSULIN GLARGINE,HUM.REC.ANLOG 1,000 UNIT/10 ML VIAL SUBCUT SCH (10:53)
[2020-04-25] MEDS: WATER IV SCH ×2 (10:53→23:07)
--- NOTE | 2020-04-25 18:33 | PDOC PROGRESS REPORT ---
Subjective Progress Note for:: 04/25/20 Subjective:: 04/24/2020. No acute events overnight. Patient persistently asking to be allowed to take p.o. diet, refusing to have PEG tube or TPN restarted. Patient was noted to have thick secretion with aspiration 2 days ago noted be expressing undigested food from his tracheal secretions. 04/25/2020. No acute events overnight. Patient was noted to be aspirating on ice chips however he denies it, still asking for food, currently n.p.o. due to observed aspiration, speech therapy has been consulted and patient is pending modified barium swallow tomorrow. Patient has refused TPN and PEG tube placement. 04/26/2020. No acute events overnight. Status post modified barium swallow. Reason For Visit: ACUTE HYPOXIC RESPIRATORY FAILURE, HYPOTENSION Physical Exam Vital Signs: Temp Pulse Resp BP Pulse Ox 97.7 F 89 13 147/89 H 100 04/25/20 11:14 04/25/20 14:00 04/25/20 16:45 04/25/20 11:14 04/25/20 16:45 Intake & Output 04/24/20 04/25/20 04/26/20 06:59 06:59 06:59 Intake Total 2050 670 Output Total 1275 1940 900 Balance 775 -1270 -900 Weight 54 kg 55.2 kg General appearance: PRESENT: no acute distress, thin, well-developed, well- nourished Head exam: PRESENT: atraumatic, normocephalic Respiratory exam: PRESENT: clear to auscultation yousif. ABSENT: rales, rhonchi, wheezes Cardiovascular exam: PRESENT: RRR. ABSENT: diastolic murmur, rubs, systolic murmur GI/Abdominal exam: PRESENT: normal bowel sounds, soft. ABSENT: distended, guarding, mass, organolmegaly, rebound, tenderness Neurological exam: PRESENT: alert, awake, oriented to person, oriented to place, oriented to time, oriented to situation, CN II-XII grossly intact. ABSENT: motor sensory deficit Results Laboratory Results: 04/25/20 06:37 04/25/20 06:37 04/25/20 04/25/20 06:37 06:37 WBC 11.3 H RBC 3.27 L Hgb 9.2 L Hct 28.5 L MCV 87 MCH 28.3 MCHC 32.4 RDW 16.2 H Plt Count 431 Seg Neutrophils % 77.0 Sodium 142.3 Potassium 3.5 L Chloride 108 H Carbon Dioxide 29 Anion Gap 5 BUN 14 Creatinine 0.64 Est GFR ( Amer) > 60 Glucose 92 Calcium 8.1 L Phosphorus 2.5 Magnesium 1.5 L Total Bilirubin 0.4 AST 11 L Alkaline Phosphatase 99 Total Protein 5.4 L Albumin 2.1 L 04/20/20 04/23/20 04/23/20 09:00 01:55 01:55 Creatine Kinase < 20 L CK-MB (CK-2) 2.20 Troponin I < 0.012 0.082 NT-Pro-B Natriuret Pep 66863 H 04/23/20 04/23/20 04/23/20 05:58 08:22 14:50 Creatine Kinase < 20 L < 20 L CK-MB (CK-2) 2.24 Troponin I 0.066 NT-Pro-B Natriuret Pep 04/23/20 14:50 Creatine Kinase CK-MB (CK-2) 2.09 Troponin I 0.057 NT-Pro-B Natriuret Pep Impressions: Chest X-Ray 04/22/20 00:00 IMPRESSION: Worsening bilateral airspace disease, greatest within the right lung base. Stable large cardiac silhouette and central vascular congestion. Assessment and Plan - Diagnosis (1) Acute on chronic respiratory failure with hypoxia and hypercapnia Is this a current diagnosis for this admission?: Yes Plan: Likely due to healthcare associated pneumonia or aspiration pneumonia. Sputum culture growing MRSA. Continue vancomycin. Follow sputum and blood culture. Aggressive pulmonary toileting, tracheostomy care, monitor for aspiration. Currently n.p.o. pending swallow evaluation. (2) Bacteremia due to Enterococcus Is this a current diagnosis for this admission?: Yes Plan: Enterococcus bacteremia sensitive to penicillins and vancomycin. Continue vancomycin. Repeat blood culture. Follow-up blood culture. (3) Bilateral pneumonia Qualifiers: Pneumonia type: due to unspecified organism Lung location: lower lobe of lung Qualified Code(s): J18.9 - Pneumonia, unspecified organism Is this a current diagnosis for this admission?: Yes Plan: As per #1. (4) Candiduria Is this a current diagnosis for this admission?: Yes Plan: Urine culture positive for Leah albicans. The patient does have an indwelling Varner catheter has been switched. This is likely contamination. Will monitor closely. No specific treatment at this time. Goal is to remove the Varner catheter. (5) Hypoglycemia associated with type 2 diabetes mellitus Is this a current diagnosis for this admission?: Yes Plan: History of type 2 diabetes, presented with low blood glucose level, likely due to low p.o. intake. Continue hypoglycemia protocol. (6) Tracheostomy in place Is this a current diagnosis for this admission?: Yes Plan: Continue tracheostomy care. Aggressive pulmonary toileting. - Plan Summary Summary: Continue current level of respiratory support. Continue inline suctioning as needed. We will continue his current antibiotics. His tracheal aspirate also grew out MRSA but he is probably colonized. He declined an NG tube today, but this is something that will have to be considered because he is recurrently aspirating and this is likely why he has enterococcus in his bloodstream. - Time Time Spent with patient: 25-34 minutes Medications reviewed and adjusted accordingly: Yes Anticipated Discharge Disposition: [facility] Anticipated Discharge Timeframe: within 72 hours
[2020-04-26] MEDS: HYDROMORPHONE HCL INJ/PF 2 MG/ML AMPULE IV PRN ×5 (02:02→23:07)
[2020-04-26] MEDS: DIPHENHYDRAMINE HCL 50 MG/ML VIAL IV PRN ×3 (02:03→19:50)
[2020-04-26] MEDS: ONDANSETRON HCL INJ/PF 4 MG/2 ML SDV IV PRN ×2 (05:20→18:01)
[2020-04-26] MEDS: PROMETHAZINE HCL INJ 25 MG/1 ML VIAL IV PRN ×2 (05:20→13:33)
[2020-04-26] MEDS: HEPARIN SOD (PORCINE) 5,000 UNIT/ML 1 ML VIAL SUBCUT SCH ×3 (05:47→23:06)
[2020-04-26] MEDS: NITROGLYCERIN 2% OINTMENT 1 GM PACKET TP SCH ×3 (05:47→18:02)
[2020-04-26 07:05] LABS: ABSOLUTE BASOPHILS # (AUTO) 0.1 10^3/uL (0.0-0.2); ABSOLUTE EOSINOPHILS # (AUTO) 0.5 10^3/uL (0.0-0.6); ABSOLUTE MONOCYTES (AUTO) 0.8 10^3/uL (0.1-1.4); ABSOLUTE NEUT (AUTO) 10.1 10^3/uL (1.7-8.2); BASOPHILS % (AUTO) 0.8 % (0-2); EOSINOPHILS % (AUTO) 3.6 % (0-6); HEMATOCRIT 28.8 % (37.9-51.0); HEMOGLOBIN 9.6 g/dL (13.5-17.0); LYMPHOCYTES % (AUTO) 8.3 % (13-45); MEAN CORPUSCULAR HEMOGLOBIN 28.7 pg (27.0-33.4); MEAN CORPUSCULAR HGB CONC 33.4 g/dL (32.0-36.0); MEAN CORPUSCULAR VOLUME 86 fl (80-97); MONOCYTES % (AUTO) 6.7 % (3-13); PLATELET COUNT 417 10^3/uL (150-450); RED BLOOD COUNT 3.36 10^6/uL (4.35-5.55); RED CELL DISTRIBUTION WIDTH 16.3 % (11.5-14.0); SEGMENTED NEUTROPHILS % (AUTO) 80.6 % (42-78); TOTAL CELLS COUNTED % (AUTO) 100 %; WHITE BLOOD COUNT 12.6 10^3/uL (4.0-10.5)
[2020-04-26 07:27] LABS: ANION GAP 5 (5-19); BLOOD UREA NITROGEN 12 mg/dL (7-20); CALCIUM 7.9 mg/dL (8.4-10.2); CARBON DIOXIDE 30 mmol/L (22-30); CHLORIDE 105 mmol/L (98-107); GLUCOSE 117 mg/dL (75-110); PHOSPHORUS 2.3 mg/dL (2.5-4.5); POTASSIUM 3.4 mmol/L (3.6-5.0)
[2020-04-26 07:34] LABS: PREALBUMIN 6.7 mg/dL (17.6-36.0)
[2020-04-26] MEDS: INSULIN LISPRO 100 UNIT/ML 3 ML VIAL SUBCUT SCH ×4 (07:59→23:07)
--- NOTE | 2020-04-26 09:25 | ST Inp Modified Barium Swallow ---
Medical Diagnosis - Medical Diagnoses Medical Diagnosis Description & ICD-10 Code(s): bilateral pneumonia, tracheostomy in place - ICD-10 Tx Diagnosis Coding (1) Dysphagia ICD-10 Code(s): R13.10 - DYSPHAGIA, UNSPECIFIED ST Inpatient MBS - General Date: 04/26/20 Date of Onset: 02/17/20 - approximate onset - History -: Medical - per EMR: patient admitted [facility]/20 from SN[facility], had just recently been discharged from hospital after 89 day stay due to respiratory failure secondary to COVID-19 and subsequent tracheostomy. Prior medical history includes diabetes, hypertension, CHF, narcotic dependence, CKD. Patient has been NPO during his current hospitalization. Patient has refused PEG placement, NG tube, and TPN. Patient has had 3 prior MBSSs, on 03/19, 03/27, and 04/10. On the most recent MBSS, the patient continued to demonstrate aspiration with thin liquids and with residuals from all textures after the swallow. Regular solids were seen to fully stay in valleculae after the swallow, only partially clearing with liquid wash and additional dry swallows. At that time, patient was non-compliant with NPO recommendations, and a diet of puree solids and nectar thick liquids was advised as this reduced, but did not eliminate, the amount of aspiration occuring. Patient was educated on this, however, he continued to eat regular foods and drink thin liquids. It has been reported that undigested foods have been suctioned from the patient's trach. Medications: Medications Reviewed Allergies: Refer to medical record - Subjective Current Nutritional Means: NPO Current PO Diet: N/A (NPO) Current Symptoms: Pneumonia, Aspiration, Hx of asp. pneumonia Pain: Patient reports, 3/5 - pressure ulcer - Objective Assessment: Upright, Left Lateral - Food Trials Food Trials Used: Thin liquids, [place] thick liquids, Pureed, Regular The Patient: Was Able to Self Feed - Assessment Labial Function: Within Normal Limits Lingual Function: Within Normal Limits Mandibular Function: Within Normal Limits Dentition: Partial Velo-Pharyngeal Function: Unremarkable Laryngeal Function: weak voicing - tracheostomy patient - Pharyngeal Stage Initiation of Pharyngeal Stage: Normal Decreased Laryngeal Elevation: Yes Reduced Velo-Pharyngeal Closure: no Reduced Pressure Generation: Yes Pre-Swallowing Pooling in Valleculae: Moderate Pre-Swallowing Pooling in Pyriforms: Mild Reduced Thyro-Hyiod Approximation: Yes Reduced Epiglottic Excursion: Yes Multiple Swallows With: Ineffective Clearance Post Swallow Residuals in Valleculae: Significant - with regular solids Post Swallow Residuals in Pyriforms: Mild - with all textures Post Swallow Residuals: throughout pharynx - Impression/Summary Laryngeal Penetration: Yes - with thin and nectar liquids, with residuals from all textures after the swallow. No response/reaction to penetration. Tracheal Aspiration: yes - small amounts of aspiration seen throughout study, largely on residuals from valleculae after the swallow with all textures. No sensation of aspiration or residue. Patient Presents With: Pharyngeal stage dysph., Severe Risk of Aspiration: Severe - Recommendations Solid Diet Recommendations: Pureed Liquid Diet Recommendations: Thin Strict Aspitarion Precautions: Yes Other Recommendations: Patient is chronically aspirating, notably is aspirating residuals of all textures from the valleculae due to poor epiglottic inversion and poor pharyngeal constriction, as well as incomplete airway closure on the swallow. Patient has consistently refused alternative means of nutrition and hydration despite continued respiratory distress and pneumonia, likely contributed to by aspiration. Currently, swallow function appears to have improved from prior study on 04/10/20, however, the patient continues to show poor clearance of material from pharynx, residuals seen with all textures in valleculae and pyriform sinus, the valleculae residue increased as texture increased, with regular solid trial staying fully in valleculae. Liquid wash did help clear residue, however, some material did spill from valleculae to the airway. Trace aspiration seen with all textures from residuals after the swallow due to poor airway closure (reduced larngeal elevation, reduced epiglottic inversion, poor pharyngeal constriction). NPO with alterntive means of nutrition is judged to be the safest option for this patient at this time. As the patient has refused tube feeds and TPN, would recommend oral diet of thin liquids and puree solids. Patient is still at risk of aspiration on this diet, however, based on results this day, this diet would reduce amount of aspiration occuring and reduced pharyngeal residue. Discussed recommendations with Dr. Rogers, who requested therapist place diet for puree solids and thin liquids. - Time Total Time: 20 Total Timed Minutes: 20
[2020-04-26] MEDS: INSULIN GLARGINE,HUM.REC.ANLOG 1,000 UNIT/10 ML VIAL SUBCUT SCH (09:35)
[2020-04-26] MEDS: LACTULOSE SYRUP 20 GM/30 ML UDCUP PO SCH ×2 (09:35→23:07)
[2020-04-26] MEDS: FUROSEMIDE 20 MG TABLET PO SCH (09:36)
[2020-04-26] MEDS: SENNOSIDES/DOCUSATE 8.6-50 MG 1 EACH TABLET PO SCH (09:36)
--- NOTE | 2020-04-26 09:45 | RADIOLOGY REPORT (SQ) ---
EXAM DESCRIPTION: COOKIE SWALLOW IMAGES COMPLETED DATE/TIME: 04/26/2020 9:35 am REASON FOR STUDY: hx of aspiration J96.21 ACUTE AND CHRONIC RESPIRATORY FAILURE WITH HYPOXIA COMPARISON: Cookie swallow 04/10/2020. . TECHNIQUE: Videofluoroscopic swallowing examination was performed in conjunction with speech patholo gy. Videofluoroscopic imaging was obtained and reviewed and these are the findings: RADIATION DOSE: Fluoro time 4.6 minutes 1 images saved to PACS. LIMITATIONS: None FINDINGS: The patient was brought into the fluoro room and placed upright on a modified barium swall ow chair. The patient was then given multiple consistencies mixed with barium to swallow under live fluoroscopic video guidance. According to the Speech Pathologist there was deep laryngeal penetratio n with thin barium. Trace aspiration seen from residuals with most consistencies. Again, significan t residuals seen in the vallecula. Please refer to the speech pathology report for further details. IMPRESSION: LARYNGEAL PENETRATION WITH THIN BARIUM, WITH TRACE ASPIRATION FROM RESIDUALS. PLEASE SEE SPEECH PATHOLOGIST REPORT FOR OTHER FINDINGS AND RECOMMENDATIONS. COMMENT: NONE Quality ID [id number]: Final reports for procedures using fluoroscopy that document radiation exposure lyn oswaldo, or exposure time and number of fluorographic images (if radiation exposure indices are not avail able) TECHNICAL DOCUMENTATION: JOB ID: [id number] 2010 [employer]- All Rights Reserved Reading location - IP/workstation name: [email or web address] [id number]
[2020-04-26 10:20] LABS: VANCOMYCIN,TROUGH 19.3 ug/mL (5.0-20.0)
[2020-04-26] MEDS: SCOPOLAMINE HYDROBROMIDE 1.5 MG PATCH.TD72 TD SCH (11:01)
[2020-04-26] MEDS: CEFEPIME HCL 1 GM in DEXTROSE 5%-WATER 50 ML IV SCH (11:01)
[2020-04-26] MEDS: DEXTROSE 5%-NORMAL SALINE 1,000 ML IV PRN (11:01)
[2020-04-26] MEDS: THIAMINE HCL 100 MG TABLET PO SCH (11:08)
[2020-04-26] MEDS: LISINOPRIL 5 MG TABLET PO SCH ×2 (11:08→23:05)
[2020-04-26] MEDS: METOPROLOL SUCCINATE 25 MG TAB.SR.24H PO SCH (11:09)
[2020-04-26] MEDS: WATER IV SCH ×2 (11:43→23:04)
[2020-04-26] MEDS: VANCOMYCIN HCL IV SCH ×2 (11:43→23:04)
[2020-04-26] MEDS: DEXTROSE 5% IV SCH ×2 (11:43→23:04)
[2020-04-26] MEDS: PHOSPHORUS #1 250 MG TABLET PO SCH ×3 (11:44→23:05)
--- NOTE | 2020-04-26 18:26 | PDOC PROGRESS REPORT ---
Subjective Progress Note for:: 04/26/20 Subjective:: 04/24/2020. No acute events overnight. Patient persistently asking to be allowed to take p.o. diet, refusing to have PEG tube or TPN restarted. Patient was noted to have thick secretion with aspiration 2 days ago noted be expressing undigested food from his tracheal secretions. 04/25/2020. No acute events overnight. Patient was noted to be aspirating on ice chips however he denies it, still asking for food, currently n.p.o. due to observed aspiration, speech therapy has been consulted and patient is pending modified barium swallow tomorrow. Patient has refused TPN and PEG tube placement. 04/27/2020. No acute events overnight. Patient is status post modified barium swallow on 04/26/2020 and recommendation is for pured diet however patient is unfortunately very selective about his diet and has been asking for rice crispy, when I mentioned to him that rice crispy is not recommended by speech therapist and it will put him at risk of aspiration patient gets very upset and keeps insisting on having prescription. I have encouraged patient on frequent snacking and have mentioned to him that he cannot have anything he wants as long as it is within the speech therapy recommendations. Patient is alert and oriented, does not appear to be in any acute distress, does not provide much history as patient is very upset about not being able to eat rice crispy. Limited physical exam as patient is very upset. Reason For Visit: ACUTE HYPOXIC RESPIRATORY FAILURE, HYPOTENSION Physical Exam Vital Signs: Temp Pulse Resp BP Pulse Ox 98.1 F 101 H 11 L 157/88 H 100 04/26/20 11:32 04/26/20 14:00 04/26/20 16:30 04/26/20 11:32 04/26/20 16:30 Intake & Output 04/25/20 04/26/20 04/27/20 06:59 06:59 06:59 Intake Total 833 4300 5010 Output Total 4868 3656 679 Balance -0520 -140 1071 Weight 55.2 kg 58.5 kg 58.5 kg General appearance: PRESENT: no acute distress, thin Head exam: PRESENT: atraumatic, normocephalic Cardiovascular exam: PRESENT: RRR GI/Abdominal exam: PRESENT: normal bowel sounds, soft Neurological exam: PRESENT: alert, awake, oriented to person, oriented to place, oriented to time, oriented to situation. ABSENT: motor sensory deficit Results Laboratory Results: 04/26/20 06:15 04/26/20 09:37 04/26/20 04/26/20 04/26/20 06:15 06:15 09:37 WBC 12.6 H RBC 3.36 L Hgb 9.6 L Hct 28.8 L MCV 86 MCH 28.7 MCHC 33.4 RDW 16.3 H Plt Count 417 Seg Neutrophils % 80.6 H Sodium 139.7 Potassium 3.4 L Chloride 105 Carbon Dioxide 30 Anion Gap 5 BUN 12 Creatinine 0.57 0.56 Est GFR ( Amer) > 60 > 60 Glucose 117 H Calcium 7.9 L Phosphorus 2.3 L Magnesium 1.7 Prealbumin 6.7 L 04/20/20 04/23/20 04/23/20 09:00 01:55 01:55 Creatine Kinase < 20 L CK-MB (CK-2) 2.20 Troponin I < 0.012 0.082 NT-Pro-B Natriuret Pep 05007 H 04/23/20 04/23/20 04/23/20 05:58 08:22 14:50 Creatine Kinase < 20 L < 20 L CK-MB (CK-2) 2.24 Troponin I 0.066 NT-Pro-B Natriuret Pep 04/23/20 14:50 Creatine Kinase CK-MB (CK-2) 2.09 Troponin I 0.057 NT-Pro-B Natriuret Pep Impressions: Chest X-Ray 04/22/20 00:00 IMPRESSION: Worsening bilateral airspace disease, greatest within the right lung base. Stable large cardiac silhouette and central vascular congestion. Modified Barium Swallow 04/26/20 00:01 IMPRESSION: LARYNGEAL PENETRATION WITH THIN BARIUM, WITH TRACE ASPIRATION FROM RESIDUALS. PLEASE SEE SPEECH PATHOLOGIST REPORT FOR OTHER FINDINGS AND RECOMMENDATIONS. Assessment and Plan - Diagnosis (1) Acute on chronic respiratory failure with hypoxia and hypercapnia Is this a current diagnosis for this admission?: Yes Plan: Likely due to healthcare associated pneumonia or aspiration pneumonia. Sputum culture growing MRSA. Continue vancomycin. Follow sputum and blood culture. Aggressive pulmonary toileting, tracheostomy care, monitor for aspiration. Status post modified barium swallow, recommendation is for soft mechanical diet. (2) Bacteremia due to Enterococcus Is this a current diagnosis for this admission?: Yes Plan: Enterococcus bacteremia sensitive to penicillins and vancomycin. Continue vancomycin. Repeat blood culture. Follow-up blood culture. (3) Bilateral pneumonia Qualifiers: Pneumonia type: due to unspecified organism Lung location: lower lobe of lung Qualified Code(s): J18.9 - Pneumonia, unspecified organism Is this a current diagnosis for this admission?: Yes Plan: As per #1. (4) Candiduria Is this a current diagnosis for this admission?: Yes Plan: Urine culture positive for Leah albicans. The patient does have an indwelling Varner catheter has been switched. This is likely contamination. Will monitor closely. No specific treatment at this time. Goal is to remove the Varner catheter. (5) Hypoglycemia associated with type 2 diabetes mellitus Is this a current diagnosis for this admission?: Yes Plan: History of type 2 diabetes, presented with low blood glucose level, likely due to low p.o. intake. Continue hypoglycemia protocol. (6) Tracheostomy in place Is this a current diagnosis for this admission?: Yes Plan: Continue tracheostomy care. Aggressive pulmonary toileting. (7) Malnutrition Qualifiers: Malnutrition type: protein-calorie malnutrition Is this a current diagnosis for this admission?: Yes Plan: Due to low p.o. intake. Unfortunately patient has been having aspiration and has been refusing other modes of nutrition, patient has adamantly refused PEG tube and TPN. Patient On 04/26/2020 patient had a modified barium swallow which and recommendation was for pured diet. Patient still at risk of aspiration. Continue feeds as tolerated, registered dietitian has been consulted. (8) Diabetes Qualifiers: Diabetes mellitus type: type 2 Is this a current diagnosis for this admission?: Yes Plan: Patient noted to be hypoglycemic due to low p.o. drip. Continue sliding scale insulin, Accu-Chek, hypoglycemia protocol. Adjust insulin dosage as needed. - Plan Summary Summary: Continue current level of respiratory support. Continue inline suctioning as needed. We will continue his current antibiotics. His tracheal aspirate also grew out MRSA but he is probably colonized. He declined an NG tube today, but this is something that will have to be considered because he is recurrently aspirating and this is likely why he has enterococcus in his bloodstream. - Time Time Spent with patient: 25-34 minutes Medications reviewed and adjusted accordingly: Yes [facility]ticipated [facility] Anticipated Discharge Timeframe: within 72 hours
[2020-04-27] MEDS: NITROGLYCERIN 2% OINTMENT 1 GM PACKET TP SCH ×4 (01:00→17:48)
[2020-04-27] MEDS: CEFEPIME HCL 1 GM in DEXTROSE 5%-WATER 50 ML IV SCH ×2 (01:01→11:00)
[2020-04-27] MEDS: ONDANSETRON HCL INJ/PF 4 MG/2 ML SDV IV PRN (01:02)
[2020-04-27] MEDS: HYDROMORPHONE HCL INJ/PF 2 MG/ML AMPULE IV PRN ×4 (03:15→22:37)
[2020-04-27] MEDS: DIPHENHYDRAMINE HCL 50 MG/ML VIAL IV PRN ×3 (04:25→22:40)
[2020-04-27] MEDS: DEXTROSE 5%-NORMAL SALINE 1,000 ML IV PRN (05:13)
[2020-04-27] MEDS: HEPARIN SOD (PORCINE) 5,000 UNIT/ML 1 ML VIAL SUBCUT SCH ×3 (05:13→22:36)
[2020-04-27 06:07] LABS: ABSOLUTE BASOPHILS # (AUTO) 0.1 10^3/uL (0.0-0.2); ABSOLUTE EOSINOPHILS # (AUTO) 0.3 10^3/uL (0.0-0.6); ABSOLUTE MONOCYTES (AUTO) 1.1 10^3/uL (0.1-1.4); ABSOLUTE NEUT (AUTO) 16.1 10^3/uL (1.7-8.2); BASOPHILS % (AUTO) 0.6 % (0-2); EOSINOPHILS % (AUTO) 1.8 % (0-6); HEMATOCRIT 28.9 % (37.9-51.0); HEMOGLOBIN 9.8 g/dL (13.5-17.0); LYMPHOCYTES % (AUTO) 5.5 % (13-45); MEAN CORPUSCULAR HEMOGLOBIN 28.7 pg (27.0-33.4); MEAN CORPUSCULAR HGB CONC 33.9 g/dL (32.0-36.0); MEAN CORPUSCULAR VOLUME 85 fl (80-97); MONOCYTES % (AUTO) 5.8 % (3-13); PLATELET COUNT 412 10^3/uL (150-450); RED BLOOD COUNT 3.41 10^6/uL (4.35-5.55); RED CELL DISTRIBUTION WIDTH 16.6 % (11.5-14.0); SEGMENTED NEUTROPHILS % (AUTO) 86.3 % (42-78); TOTAL CELLS COUNTED % (AUTO) 100 %; WHITE BLOOD COUNT 18.7 10^3/uL (4.0-10.5)
[2020-04-27] MEDS: INSULIN LISPRO 100 UNIT/ML 3 ML VIAL SUBCUT SCH ×4 (08:42→22:37)
[2020-04-27] MEDS: PROMETHAZINE HCL INJ 25 MG/1 ML VIAL IV PRN ×2 (10:59→17:48)
[2020-04-27] MEDS: LACTULOSE SYRUP 20 GM/30 ML UDCUP PO SCH ×2 (11:49→22:37)
[2020-04-27] MEDS: SENNOSIDES/DOCUSATE 8.6-50 MG 1 EACH TABLET PO SCH (11:49)
[2020-04-27] MEDS: FUROSEMIDE 20 MG TABLET PO SCH (11:49)
[2020-04-27] MEDS: INSULIN GLARGINE,HUM.REC.ANLOG 1,000 UNIT/10 ML VIAL SUBCUT SCH (11:49)
[2020-04-27] MEDS: PHOSPHORUS #1 250 MG TABLET PO SCH ×4 (11:49→22:36)
[2020-04-27] MEDS: METOPROLOL SUCCINATE 25 MG TAB.SR.24H PO SCH (12:07)
[2020-04-27] MEDS: LISINOPRIL 5 MG TABLET PO SCH ×2 (12:07→22:32)
[2020-04-27] MEDS: THIAMINE HCL 100 MG TABLET PO SCH (12:08)
[2020-04-27] MEDS: VANCOMYCIN HCL IV SCH ×2 (12:10→22:37)
[2020-04-27] MEDS: WATER IV SCH ×2 (12:10→22:37)
[2020-04-27] MEDS: DEXTROSE 5% IV SCH ×2 (12:10→22:37)
[2020-04-28] MEDS: NITROGLYCERIN 2% OINTMENT 1 GM PACKET TP SCH ×4 (00:47→17:10)
[2020-04-28] MEDS: PROMETHAZINE HCL INJ 25 MG/1 ML VIAL IV PRN ×3 (00:47→22:48)
[2020-04-28] MEDS: HYDROMORPHONE HCL INJ/PF 2 MG/ML AMPULE IV PRN ×5 (02:41→22:48)
[2020-04-28] MEDS: HEPARIN SOD (PORCINE) 5,000 UNIT/ML 1 ML VIAL SUBCUT SCH ×3 (05:53→22:31)
[2020-04-28] MEDS: INSULIN LISPRO 100 UNIT/ML 3 ML VIAL SUBCUT SCH ×4 (08:18→22:13)
[2020-04-28] MEDS: ONDANSETRON HCL INJ/PF 4 MG/2 ML SDV IV PRN ×2 (08:46→18:33)
[2020-04-28] MEDS: DIPHENHYDRAMINE HCL 50 MG/ML VIAL IV PRN ×2 (08:47→17:04)
[2020-04-28] MEDS: METOPROLOL SUCCINATE 25 MG TAB.SR.24H PO SCH (09:01)
[2020-04-28] MEDS: DEXTROSE 5% IV SCH ×2 (09:01→22:32)
[2020-04-28] MEDS: VANCOMYCIN HCL IV SCH ×2 (09:01→22:32)
[2020-04-28] MEDS: WATER IV SCH ×2 (09:01→22:32)
[2020-04-28] MEDS: THIAMINE HCL 100 MG TABLET PO SCH (09:01)
[2020-04-28] MEDS: LISINOPRIL 5 MG TABLET PO SCH ×2 (09:01→22:32)
[2020-04-28] MEDS: PHOSPHORUS #1 250 MG TABLET PO SCH ×5 (09:01→22:33)
[2020-04-28] MEDS: LACTULOSE SYRUP 20 GM/30 ML UDCUP PO SCH ×2 (09:08→22:33)
[2020-04-28] MEDS: FUROSEMIDE 20 MG TABLET PO SCH (09:08)
[2020-04-28] MEDS: SENNOSIDES/DOCUSATE 8.6-50 MG 1 EACH TABLET PO SCH (09:09)
--- NOTE | 2020-04-28 16:11 | PDOC PROGRESS REPORT ---
Subjective Progress Note for:: 04/28/20 Subjective:: 04/28/2020. Patient was seen on afternoon rounds. He was found resting in bed, comfortably, with BiPAP to trach collar. Patient is able to speak in 2-3 word sentences. Patient tells me that he is nauseated because of the hospital food. He states that he does not have nausea when he is eating "normal food". He asks to have rice crispies with breakfast. He tells me that he will allow the rice crispies to soak in his milk to become soft. States that he does not understand why he is not allowed to eat cold cereals when he has had rice at dinner. Patient is a dvised that I will review the swallow study and speech therapy recommendations before we can make any changes. Otherwise, he has no questions or concerns at this time and denies all symptoms. No questions per nursing. Reason For Visit: ACUTE HYPOXIC RESPIRATORY FAILURE, HYPOTENSION Physical Exam Vital Signs: Temp Pulse Resp BP Pulse Ox 97.8 F 85 11 L 127/89 H 97 04/28/20 04:59 04/28/20 08:21 04/28/20 12:00 04/28/20 08:17 04/28/20 12:00 Intake & Output 04/27/20 04/28/20 04/29/20 06:59 06:59 06:59 Intake Total 3429 1218 Output Total 1603 1350 Balance 1826 -132 Weight 58.5 kg 55.8 kg General appearance: PRESENT: no acute distress, disheveled, thin, well-developed Head exam: PRESENT: atraumatic, normocephalic Mouth exam: PRESENT: moist, tongue midline Teeth exam: PRESENT: poor dentation Neck exam: PRESENT: tracheostomy. ABSENT: carotid bruit, JVD, lymphadenopathy, thyromegaly Respiratory exam: PRESENT: clear to auscultation yousif, rhonchi, symmetrical, other - bipap to tracheostomy. ABSENT: rales, wheezes Cardiovascular exam: PRESENT: RRR. ABSENT: diastolic murmur, rubs, systolic murmur GI/Abdominal exam: PRESENT: normal bowel sounds, soft Musculoskeletal exam: ABSENT: ambulatory Neurological exam: PRESENT: alert, awake, oriented to person, oriented to place, oriented to time, oriented to situation, CN II-XII grossly intact. ABSENT: motor sensory deficit Results Laboratory Results: 04/27/20 05:20 04/26/20 09:37 04/20/20 04/23/20 04/23/20 09:00 01:55 01:55 Creatine Kinase < 20 L CK-MB (CK-2) 2.20 Troponin I < 0.012 0.082 NT-Pro-B Natriuret Pep 48436 H 04/23/20 04/23/20 04/23/20 05:58 08:22 14:50 Creatine Kinase < 20 L < 20 L CK-MB (CK-2) 2.24 Troponin I 0.066 NT-Pro-B Natriuret Pep 04/23/20 14:50 Creatine Kinase CK-MB (CK-2) 2.09 Troponin I 0.057 NT-Pro-B Natriuret Pep Impressions: Chest X-Ray 04/22/20 00:00 IMPRESSION: Worsening bilateral airspace disease, greatest within the right lung base. Stable large cardiac silhouette and central vascular congestion. Modified Barium Swallow 04/26/20 00:01 IMPRESSION: LARYNGEAL PENETRATION WITH THIN BARIUM, WITH TRACE ASPIRATION FROM RESIDUALS. PLEASE SEE SPEECH PATHOLOGIST REPORT FOR OTHER FINDINGS AND RECOMMENDATIONS. Assessment and Plan - Diagnosis (1) Acute on chronic respiratory failure with hypoxia and hypercapnia Is this a current diagnosis for this admission?: Yes Plan: Likely due to healthcare associated pneumonia or aspiration pneumonia. Sputum culture growing MRSA. Continue vancomycin; Day #6. Aggressive pulmonary toileting, tracheostomy care, monitor for aspiration. (2) Bacteremia due to Enterococcus Is this a current diagnosis for this admission?: Yes Plan: Enterococcus bacteremia sensitive to penicillins and vancomycin. Continue vancomycin; Day #6. Unfortunately, repeat blood cultures have not been obtained to establish clearance and EOT date. Repeat Blood cultures now pending. (3) Bilateral pneumonia Qualifiers: Pneumonia type: due to unspecified organism Lung location: lower lobe of lung Qualified Code(s): J18.9 - Pneumonia, unspecified organism Is this a current diagnosis for this admission?: Yes Plan: As per #1. (4) Candiduria Is this a current diagnosis for this admission?: Yes Plan: Urine culture positive for Leah albicans. The patient does have an indwelling Varner catheter has been switched. This is likely contamination. Will monitor closely. No specific treatment at this time. Goal is to remove the Varner catheter care. (5) Diabetes Qualifiers: Diabetes mellitus type: type 2 Is this a current diagnosis for this admission?: Yes Plan: Patient noted to be hypoglycemic due to low p.o. intake. Continue sliding scale insulin, Accu-Chek, hypoglycemia protocol. Adjust insulin dosage as needed. (6) Hypoglycemia associated with type 2 diabetes mellitus Is this a current diagnosis for this admission?: Yes Plan: History of type 2 diabetes, presented with low blood glucose level, likely due to low p.o. intake. Encourage small, frequent meals. Continue hypoglycemia protocol. (7) Malnutrition Qualifiers: Malnutrition type: protein-calorie malnutrition Is this a current diagnosis for this admission?: Yes Plan: Due to low p.o. intake. Unfortunately patient has been having aspiration and has been refusing other modes of nutrition, patient has adamantly refused PEG tube and TPN. On 04/26/2020 patient had a modified barium swallow which and recommendation was for pured diet. Patient still at risk of aspiration. Continue feeds as tolerated, registered dietitian has been consulted. (8) Tracheostomy in place Is this a current diagnosis for this admission?: Yes Plan: Continue tracheostomy care. Aggressive pulmonary toileting. - Time Time Spent with patient: 25-34 minutes Medications reviewed and adjusted accordingly: Yes Anticipated Discharge Disposition: Intermediate Facility Anticipated Discharge Timeframe: within 48 hours
[2020-04-29] MEDS: NITROGLYCERIN 2% OINTMENT 1 GM PACKET TP SCH ×4 (00:37→18:37)
[2020-04-29] MEDS: DIPHENHYDRAMINE HCL 50 MG/ML VIAL IV PRN ×2 (01:07→12:03)
[2020-04-29] MEDS: HYDROMORPHONE HCL INJ/PF 2 MG/ML AMPULE IV PRN ×3 (03:27→15:47)
[2020-04-29] MEDS: ONDANSETRON HCL INJ/PF 4 MG/2 ML SDV IV PRN ×2 (04:23→11:41)
[2020-04-29] MEDS: HEPARIN SOD (PORCINE) 5,000 UNIT/ML 1 ML VIAL SUBCUT SCH ×2 (06:46→15:46)
[2020-04-29] MEDS: SENNOSIDES/DOCUSATE 8.6-50 MG 1 EACH TABLET PO SCH (11:40)
[2020-04-29] MEDS: PHOSPHORUS #1 250 MG TABLET PO SCH ×3 (11:40→15:37)
[2020-04-29] MEDS: THIAMINE HCL 100 MG TABLET PO SCH (11:43)
[2020-04-29] MEDS: FUROSEMIDE 20 MG TABLET PO SCH (11:43)
[2020-04-29] MEDS: METOPROLOL SUCCINATE 25 MG TAB.SR.24H PO SCH (11:43)
[2020-04-29] MEDS: LISINOPRIL 5 MG TABLET PO SCH (11:46)
[2020-04-29] MEDS: LACTULOSE SYRUP 20 GM/30 ML UDCUP PO SCH (11:46)
[2020-04-29] MEDS: INSULIN LISPRO 100 UNIT/ML 3 ML VIAL SUBCUT SCH ×3 (11:49→15:55)
[2020-04-29] MEDS: DEXTROSE 5% IV SCH (13:15)
[2020-04-29] MEDS: VANCOMYCIN HCL IV SCH (13:15)
[2020-04-29] MEDS: WATER IV SCH (13:15)
[2020-04-29] MEDS: SCOPOLAMINE HYDROBROMIDE 1.5 MG PATCH.TD72 TD SCH (13:19)
[2020-04-29] MEDS ORDERED: HYDROCOD/ACETAMIN 7.5-325 MG/15 ML ORAL SOLN UDCUP PO PRN (17:21)
[2020-04-29] MEDS ORDERED: DIPHENHYDRAMINE HCL 25 MG/10 ML UDC PO PRN (17:22)
[2020-04-29] MEDS ORDERED: ONDANSETRON 4 MG TAB.RAPDIS PO PRN (17:22)
--- NOTE | 2020-04-29 19:02 | PDOC PROGRESS REPORT ---
Subjective Progress Note for:: 04/29/20 Subjective:: 04/28/2020. Patient was seen on afternoon rounds. He was found resting in bed, comfortably, with BiPAP to trach collar. Patient is able to speak in 2-3 word sentences. Patient tells me that he is nauseated because of the hospital food. He states that he does not have nausea when he is eating "normal food". He asks to have rice crispies with breakfast. He tells me that he will allow the rice crispies to soak in his milk to become soft. States that he does not understand why he is not allowed to eat cold cereals when he has had rice at dinner. Patient is advised that I will review the swallow study and speech therapy recommendations before we can make any changes. Otherwise, he has no questions or concerns at this time and denies all symptoms. No questions per nursing. 04/29/20 Patient was seen on afternoon rounds with nursing and respiratory therapy present. He was found resting in bed, comfortably, with BiPAP to trach collar. Patient is able to speak in 2-3 word sentences. RT was providing trach care at the time of my visit. Patient tells me that he is very upset by his low sodium, pured diet. He asks me to tell him what he is able to eat off of the menu. I note that the menu does not specify what is on a cardiac diet and further does not specify pured foods. I offered to see if there is a menu that is more appropriate to his curr ent dietary requirements and informed him that when dietary comes to take his meal orders, they use the tablet in to look in real-time at what his total daily sodium intake is to ensure that he does not go over budget. The patient becomes quite frustrated and again tells me that unless I can tell him specifically what he is allowed to eat off of the menu right now, then 'he has no use for me'. He then states that he will eat what ever he wants, "even if it kills me." Used this is an opportunity to again introduce palliative care/hospice services. I informed the patient that while he remains full code, we must do everything in our ability to continue to protect him from aspiration leading to acute respiratory failure. However, should the patient elect to transition to hospice services with comfort care, he would be allowed pleasure feeds because we would all be of the understanding that should he aspirate resulting in respiratory failure, that would be considered a natural not requiring medical/emergency interventions. The patient tells me that he is a full code and that he wants us to do whatever is necessary to ensure that he lives. I then asked him to allow us to do lab work as we are still awaiting repeat blood cultures to show that he has cleared his bacterial infection and need to follow- up on his leukocytosis and renal function. Patient states that he does not want us to touch him and that we are not to draw any blood. Throughout our conversation, the patient contradicted himself numerous times and was unable to clearly state what his goals of care are. He is very frustrated today and, unfortunately, our conversation did not elicit a clear plan for mo ving forward. Respiratory therapist also attempted to have a separate conversation shortly after I left to clarify his CODE STATUS and to explain the risks of aspiration. She also attempted to discuss why some patients might choose to move towards palliative care due to similar aspiration risks as his. Per our separate conversation and her notes, her conversation was also unfruitful. ROS was not reviewed. He did appear to be comfortable and not noted to be in any acute distress. No concerns per nursing. Reason For Visit: ACUTE HYPOXIC RESPIRATORY FAILURE, HYPOTENSION Physical Exam Vital Signs: Temp Pulse Resp BP Pulse Ox 98.2 F 99 48 H 150/86 H 97 04/29/20 16:03 04/29/20 16:03 04/29/20 17:17 04/29/20 16:03 04/29/20 17:17 Intake & Output 04/28/20 04/29/20 04/30/20 06:59 06:59 06:59 Intake Total 1218 938 640 Output Total 1350 1775 800 Balance -132 -837 -160 Weight 55.8 kg 54.2 kg 54.2 kg General appearance: PRESENT: no acute distress, disheveled, thin, well- developed. ABSENT: cooperative Head exam: PRESENT: atraumatic, normocephalic Eye exam: PRESENT: conjunctiva pink, EOMI, PERRLA. ABSENT: scleral icterus Mouth exam: PRESENT: moist, tongue midline Neck exam: PRESENT: tracheostomy Respiratory exam: PRESENT: symmetrical, unlabored, other - bipap to tracheostomy Cardiovascular exam: PRESENT: RRR. ABSENT: diastolic murmur, rubs, systolic murmur Neurological exam: PRESENT: alert, awake, oriented to person, oriented to place, oriented to time, oriented to situation, CN II-XII grossly intact. ABSENT: motor sensory deficit Psychiatric exam: PRESENT: agitated, appropriate affect. ABSENT: homicidal ideation, suicidal ideation Skin exam: PRESENT: dry, intact, warm. ABSENT: cyanosis, rash Results Laboratory Results: 04/27/20 05:20 04/26/20 09:37 04/20/20 04/23/20 04/23/20 09:00 01:55 01:55 Creatine Kinase < 20 L CK-MB (CK-2) 2.20 Troponin I < 0.012 0.082 NT-Pro-B Natriuret Pep [id number] H 04/23/20 04/23/20 04/23/20 05:58 08:22 14:50 Creatine Kinase < 20 L < 20 L CK-MB (CK-2) 2.24 Troponin I 0.066 NT-Pro-B Natriuret Pep 04/23/20 14:50 Creatine Kinase CK-MB (CK-2) 2.09 Troponin I 0.057 NT-Pro-B Natriuret Pep Impressions: Chest X-Ray 04/22/20 00:00 IMPRESSION: Worsening bilateral airspace disease, greatest within the right lung base. Stable large cardiac silhouette and central vascular congestion. Modified Barium Swallow 04/26/20 00:01 IMPRESSION: LARYNGEAL PENETRATION WITH THIN BARIUM, WITH TRACE ASPIRATION FROM RESIDUALS. PLEASE SEE SPEECH PATHOLOGIST REPORT FOR OTHER FINDINGS AND RECOMMENDATIONS. Assessment and Plan - Diagnosis (1) Bacteremia due to Enterococcus Is this a current diagnosis for this admission?: Yes Plan: Enterococcus bacteremia sensitive to penicillins and vancomycin. Continue vancomycin; Day #7. Unfortunately, patient continues to refuse repeat blood cultures. Have not been able to determine that patient has cleared his bacteremia in order to establish an EOT date. Repeat Blood cultures remain pending. (2) Acute on chronic respiratory failure with hypoxia and hypercapnia Is this a current diagnosis for this admission?: Yes Plan: Likely due to healthcare associated pneumonia or aspiration pneumonia. Sputum culture growing MRSA. Continue vancomycin; Day #7. Aggressive pulmonary toileting, tracheostomy care, monitor for aspiration. (3) Bilateral pneumonia Qualifiers: Pneumonia type: due to unspecified organism Lung location: lower lobe of lung Qualified Code(s): J18.9 - Pneumonia, unspecified organism Is this a current diagnosis for this admission?: Yes Plan: As per #2. (4) Candiduria Is this a current diagnosis for this admission?: Yes Plan: Urine culture positive for Leah albicans. The patient does have an indwelling Varner catheter has been switched. This is likely contamination. Will monitor closely. No specific treatment at this time. Goal is to remove the Varner catheter care. (5) Diabetes Qualifiers: Diabetes mellitus type: type 2 Is this a current diagnosis for this admission?: Yes Plan: Patient noted to be hypoglycemic due to low p.o. intake. Continue sliding scale insulin, Accu-Chek, hypoglycemia protocol. Adjust insulin dosage as needed. (6) Hypoglycemia associated with type 2 diabetes mellitus Is this a current diagnosis for this admission?: Yes Plan: History of type 2 diabetes, presented with low blood glucose level, likely due to low p.o. intake. Encourage small, frequent meals. Continue hypoglycemia protocol. (7) Malnutrition Qualifiers: Malnutrition type: protein-calorie malnutrition Is this a current diagnosis for this admission?: Yes Plan: Due to low p.o. intake. Unfortunately patient has been having aspiration and has been refusing other modes of nutrition, patient has adamantly refused PEG tube and TPN. On 04/26/2020 patient had a modified barium swallow which and recommendation was for pured diet. Patient still at risk of aspiration. Continue feeds as tolerated, registered dietitian has been consulted. (8) Tracheostomy in place Is this a current diagnosis for this admission?: Yes Plan: Continue tracheostomy care. Aggressive pulmonary toileting. (9) Medical non-compliance Is this a current diagnosis for this admission?: Yes - Time Time Spent with patient: 35 or more minutes Medications reviewed and adjusted accordingly: Yes Anticipated Discharge Disposition: Senior Living Facility Anticipated Discharge Timeframe: undetermined
[2020-04-30] MEDS: LACTULOSE SYRUP 20 GM/30 ML UDCUP PO SCH ×3 (07:57→23:45)
[2020-04-30] MEDS: HEPARIN SOD (PORCINE) 5,000 UNIT/ML 1 ML VIAL SUBCUT SCH ×4 (07:57→23:40)
[2020-04-30] MEDS: INSULIN LISPRO 100 UNIT/ML 3 ML VIAL SUBCUT SCH ×5 (07:57→23:39)
[2020-04-30] MEDS: DEXTROSE 5% IV SCH ×3 (07:58→23:40)
[2020-04-30] MEDS: NITROGLYCERIN 2% OINTMENT 1 GM PACKET TP SCH ×4 (07:58→18:25)
[2020-04-30] MEDS: PHOSPHORUS #1 250 MG TABLET PO SCH ×5 (07:58→23:46)
[2020-04-30] MEDS: WATER IV SCH ×3 (07:58→23:40)
[2020-04-30] MEDS: LISINOPRIL 5 MG TABLET PO SCH ×3 (07:58→23:46)
[2020-04-30] MEDS: VANCOMYCIN HCL IV SCH ×3 (07:58→23:40)
[2020-04-30] MEDS: THIAMINE HCL 100 MG TABLET PO SCH (10:28)
[2020-04-30] MEDS: METOPROLOL SUCCINATE 25 MG TAB.SR.24H PO SCH (10:28)
[2020-04-30] MEDS: SENNOSIDES/DOCUSATE 8.6-50 MG 1 EACH TABLET PO SCH (10:28)
[2020-04-30] MEDS: FUROSEMIDE 20 MG TABLET PO SCH (10:29)
--- NOTE | 2020-04-30 12:36 | PDOC PROGRESS REPORT ---
Subjective Progress Note for:: 04/30/20 Subjective:: Complains of pain. This is in the right groin at the central line site as well as pain at the trach site and right knee pain. Still with a congested cough. Has been quite agitated recently. Reason For Visit: ACUTE HYPOXIC RESPIRATORY FAILURE, HYPOTENSION Physical Exam Vital Signs: Temp Pulse Resp BP Pulse Ox 98.2 F 82 15 150/86 H 100 04/30/20 08:42 04/30/20 07:00 04/30/20 09:38 04/29/20 16:03 04/30/20 01:16 Intake & Output 04/29/20 04/30/20 05/01/20 06:59 06:59 06:59 Intake Total 938 640 Output Total 1775 1450 Balance -837 -810 Weight 54.2 kg 53.3 kg General appearance: PRESENT: cooperative, mild distress, well-developed, well- nourished Head exam: PRESENT: atraumatic, normocephalic Eye exam: PRESENT: conjunctiva pale. ABSENT: scleral icterus Ear exam: PRESENT: normal external ear exam. ABSENT: bleeding, drainage Mouth exam: PRESENT: moist, tongue midline Neck exam: PRESENT: tracheostomy - Tannish mucus at the tracheostomy site. Sponge gauze also stained with tannish mucus. No purulence or foul odor noted.. ABSENT: JVD, lymphadenopathy, tracheal deviation Respiratory exam: PRESENT: prolonged expiratory phas, symmetrical, unlabored, other - Extremely congested breath sounds. ABSENT: tachypnea, wheezes Cardiovascular exam: PRESENT: RRR, +S1, +S2. ABSENT: bradycardia, diastolic murmur, irregular rhythm, systolic murmur, tachycardia GI/Abdominal exam: PRESENT: normal bowel sounds, soft, tenderness - And right groin at the central line site. ABSENT: distended, guarding Rectal exam: PRESENT: deferred Gentrourinary exam: PRESENT: indwelling catheter Extremities exam: ABSENT: pedal edema Neurological exam: PRESENT: alert, awake, oriented to person, oriented to place, oriented to time, oriented to situation. ABSENT: altered Psychiatric exam: PRESENT: appropriate affect, other - Upset about multiple clinical treatment plans. ABSENT: agitated, anxious Focused psych exam: ABSENT: delusional, paranoid, restlessness Skin exam: PRESENT: dry, pallor, warm. ABSENT: rash Results Laboratory Results: 04/27/20 05:20 04/26/20 09:37 04/20/20 04/23/20 04/23/20 09:00 01:55 01:55 Creatine Kinase < 20 L CK-MB (CK-2) 2.20 Troponin I < 0.012 0.082 NT-Pro-B Natriuret Pep [id number] H 04/23/20 04/23/20 04/23/20 05:58 08:22 14:50 Creatine Kinase < 20 L < 20 L CK-MB (CK-2) 2.24 Troponin I 0.066 NT-Pro-B Natriuret Pep 04/23/20 14:50 Creatine Kinase CK-MB (CK-2) 2.09 Troponin I 0.057 NT-Pro-B Natriuret Pep Impressions: Chest X-Ray 04/22/20 00:00 IMPRESSION: Worsening bilateral airspace disease, greatest within the right lung base. Stable large cardiac silhouette and central vascular congestion. Modified Barium Swallow 04/26/20 00:01 IMPRESSION: LARYNGEAL PENETRATION WITH THIN BARIUM, WITH TRACE ASPIRATION FROM RESIDUALS. PLEASE SEE SPEECH PATHOLOGIST REPORT FOR OTHER FINDINGS AND RECOMMENDATIONS. Assessment and Plan - Diagnosis (1) Bacteremia due to Enterococcus Is this a current diagnosis for this admission?: Yes Plan: Enterococcus bacteremia sensitive to penicillins and vancomycin. Continue vancomycin; Day #7. Unfortunately, patient continues to refuse repeat blood cultures. Have not been able to determine that patient has cleared his bacteremia in order to establish an EOT date. Repeat Blood cultures remain pending. 04/30/2020-vancomycin through 05/01/2020. We will obtain repeat blood cultures to ensure resolution of bacteremia. (2) Acute on chronic respiratory failure with hypoxia and hypercapnia Is this a current diagnosis for this admission?: Yes Plan: Likely due to healthcare associated pneumonia or aspiration pneumonia. Sputum culture growing MRSA. Continue vancomycin; Day #7. Aggressive pulmonary toileting, tracheostomy care, monitor for aspiration. 04/30/2020-reviewing records from the previous week reveals sporadic use of ventilator. Continue oxygen supplementation by trach collar to keep saturations greater than or equal to 90%. (3) Bilateral pneumonia Qualifiers: Pneumonia type: due to unspecified organism Lung location: lower lobe of lung Qualified Code(s): J18.9 - Pneumonia, unspecified organism Is this a current diagnosis for this admission?: Yes Plan: As per #2. 04/30/2020-complete vancomycin therapy as ordered. Repeat chest x-ray to assess progress. Still with very congested breath sounds but this could all be central. (4) Critical illness myopathy Is this a current diagnosis for this admission?: Yes Plan: 04/21/2020-resume physical therapy 04/22/2020-due to marked infection PT today is not appropriate. Will monitor closely each day and resume physical therapy when the patient's general condition improves. 04/30/2020-reviewed physical therapy notes. Patient will need ongoing PT and OT due to the severe deconditioning from his prolonged illness. (5) Candiduria Is this a current diagnosis for this admission?: Yes Plan: Urine culture positive for Leah albicans. The patient does have an indwelling Varner catheter has been switched. This is likely contamination. Will monitor closely. No specific treatment at this time. Goal is to remove the Varner catheter care. 04/30/2020-consider intermittent clamping of catheter to retrain bladder. Urinary incontinence would be extremely bad for his decubitus ulcers. We will need to decide the best plan of care considering all factors. (6) Hyperglycemia due to type 2 diabetes mellitus Qualifiers: Diabetes mellitus shelter insulin use: with rn long term care use Qualified Code( s): E11.65 - Type 2 diabetes mellitus with hyperglycemia; Z79.4 - senior living (current) use of insulin Is this a current diagnosis for this admission?: Yes Plan: 04/30/2020-continue Accu-Cheks, Lantus and sliding scale coverage. (7) Leukocytosis Qualifiers: Leukocytosis type: unspecified Qualified Code(s): D72.829 - Elevated white blood cell count, unspecified Is this a current diagnosis for this admission?: Yes Plan: 04/21/2020-secondary to infection. Will monitor and that should resolve with antibiotic therapy. 04/22/2020-improving with antibiotics 04/30/2020-recheck CBC tomorrow. White blood cell count was increasing most recently. Infection would be the most likely contributing factor. (8) Malnutrition Qualifiers: Malnutrition type: protein-calorie malnutrition Is this a current diagnosis for this admission?: Yes Plan: Due to low p.o. intake. Unfortunately patient has been having aspiration and has been refusing other modes of nutrition, patient has adamantly refused PEG tube and TPN. On 04/26/2020 patient had a modified barium swallow which and recommendation was for pured diet. Patient still at risk of aspiration. Continue feeds as tolerated, registered dietitian has been consulted. 04/30/2020-modified barium swallow performed last week again revealed pooling and aspiration. Patient refuses PEG tube. We will continue with pured diet. Patient constantly asking for regular food. Will need to review his recent course of aspiration pneumonia and discuss realistic expectations. (9) Tracheostomy in place Is this a current diagnosis for this admission?: Yes Plan: Continue tracheostomy care. Aggressive pulmonary toileting. (10) Dysphagia Qualifiers: Dysphagia type: oropharyngeal phase Qualified Code(s): R13.12 - Dysphagia, oropharyngeal phase Is this a current diagnosis for this admission?: Yes Plan: 04/21/2020-resume speech therapy 04/22/2020-due to the significant change in chest x-ray consider n.p.o. status with a nasogastric tube/Dobbhoff for tube feeding 04/30/2020- (11) Medical non-compliance Is this a current diagnosis for this admission?: Yes Plan: 04/30/2020-has been requesting food that is not on his recommended diet. In addition he has been refusing vital signs earlier today as well as over the last several days. He is not a willing participant in the treatment plan at this time. (12) Hypotension Qualifiers: Hypotension type: unspecified hypotension type Qualified Code(s): I95.9 - Hypotension, unspecified Is this a current diagnosis for this admission?: Yes Plan: Present on admission. Resolved - Time Time Spent with patient: 15-24 minutes Medications reviewed and adjusted accordingly: Yes Anticipated Discharge Disposition: Unknown Anticipated Discharge Timeframe: Unknown
[2020-04-30] MEDS: HYDROMORPHONE HCL INJ/PF 2 MG/ML AMPULE IV PRN ×3 (12:52→20:11)
[2020-05-01] MEDS: HYDROMORPHONE HCL INJ/PF 2 MG/ML AMPULE IV PRN ×6 (00:12→20:33)
[2020-05-01] MEDS: NITROGLYCERIN 2% OINTMENT 1 GM PACKET TP SCH ×4 (00:13→17:12)
--- NOTE | 2020-05-01 03:05 | RADIOLOGY REPORT (SQ) ---
CLINICAL HISTORY: Pneumonia COMPARISON: 04/22/2020. TECHNIQUE: XR CHEST 1 VIEW 04/30/2020 12:00 AM CDT FINDINGS: Cardiac silhouette is normal in size. There is a large right basilar consolidation. There is no pleural effusion. There is no pneumothorax. There are no acute osseous findings. Tracheostomy is in place. IMPRESSION: Improving aeration of the lungs.
[2020-05-01] MEDS: HEPARIN SOD (PORCINE) 5,000 UNIT/ML 1 ML VIAL SUBCUT SCH ×3 (06:03→22:46)
[2020-05-01] MEDS: INSULIN LISPRO 100 UNIT/ML 3 ML VIAL SUBCUT SCH ×4 (08:30→22:46)
[2020-05-01] MEDS: PHOSPHORUS #1 250 MG TABLET PO SCH ×4 (08:30→22:47)
[2020-05-01 09:20] LABS: ABSOLUTE BASOPHILS # (AUTO) 0.1 10^3/uL (0.0-0.2); ABSOLUTE EOSINOPHILS # (AUTO) 0.2 10^3/uL (0.0-0.6); ABSOLUTE LYMPHOCYTES (AUTO) 1.6 10^3/uL (0.5-4.7); ABSOLUTE MONOCYTES (AUTO) 1.1 10^3/uL (0.1-1.4); ABSOLUTE NEUT (AUTO) 8.5 10^3/uL (1.7-8.2); BASOPHILS % (AUTO) 0.5 % (0-2); EOSINOPHILS % (AUTO) 1.5 % (0-6); HEMOGLOBIN 10.2 g/dL (13.5-17.0); LYMPHOCYTES % (AUTO) 13.9 % (13-45); MEAN CORPUSCULAR HEMOGLOBIN 27.8 pg (27.0-33.4); MEAN CORPUSCULAR HGB CONC 32.7 g/dL (32.0-36.0); MEAN CORPUSCULAR VOLUME 85 fl (80-97); MONOCYTES % (AUTO) 9.8 % (3-13); PLATELET COUNT 425 10^3/uL (150-450); RED BLOOD COUNT 3.66 10^6/uL (4.35-5.55); RED CELL DISTRIBUTION WIDTH 17.6 % (11.5-14.0); SEGMENTED NEUTROPHILS % (AUTO) 74.3 % (42-78); TOTAL CELLS COUNTED % (AUTO) 100 %; WHITE BLOOD COUNT 11.5 10^3/uL (4.0-10.5)
[2020-05-01 09:34] LABS: ALBUMIN 2.4 g/dL (3.5-5.0); ALKALINE PHOSPHATASE 91 U/L (38-126); ANION GAP 6 (5-19); ASPARTATE AMINO TRANSFERASE 10 U/L (17-59); BILIRUBIN,DIRECT 0.3 mg/dL (0.0-0.4); BILIRUBIN,TOTAL 0.4 mg/dL (0.2-1.3); BLOOD UREA NITROGEN 20 mg/dL (7-20); CALCIUM 8.7 mg/dL (8.4-10.2); CARBON DIOXIDE 32 mmol/L (22-30); CHLORIDE 98 mmol/L (98-107); GLUCOSE 87 mg/dL (75-110); POTASSIUM 4.4 mmol/L (3.6-5.0); TOTAL PROTEIN 5.8 g/dL (6.3-8.2)
[2020-05-01 09:42] LABS: PREALBUMIN 9.3 mg/dL (17.6-36.0)
[2020-05-01] MEDS: THIAMINE HCL 100 MG TABLET PO SCH (10:31)
[2020-05-01] MEDS: FUROSEMIDE 20 MG TABLET PO SCH (10:31)
[2020-05-01] MEDS: LACTULOSE SYRUP 20 GM/30 ML UDCUP PO SCH ×2 (10:31→22:46)
[2020-05-01] MEDS: SENNOSIDES/DOCUSATE 8.6-50 MG 1 EACH TABLET PO SCH (10:31)
[2020-05-01] MEDS: LISINOPRIL 5 MG TABLET PO SCH ×2 (10:31→22:47)
[2020-05-01] MEDS: METOPROLOL SUCCINATE 25 MG TAB.SR.24H PO SCH (10:32)
[2020-05-01] MEDS: IPRATROPIUM/ALBUTEROL 0.5-2.5 MG/3 ML AMPUL NEB PRN ×2 (11:21→22:23)
--- NOTE | 2020-05-01 13:59 | PDOC PROGRESS REPORT ---
Subjective Progress Note for:: 05/01/20 Subjective:: Patient is quite agitated. He is very tachypneic. He is on BiPAP and trying to speak which is somewhat difficult. He is also trying to eat tomato soup. Reason For Visit: ACUTE HYPOXIC RESPIRATORY FAILURE, HYPOTENSION Physical Exam Vital Signs: Temp Pulse Resp BP Pulse Ox 98.1 F 96 25 H 113/68 100 05/01/20 11:26 05/01/20 11:26 05/01/20 11:26 05/01/20 11:26 05/01/20 11:26 Intake & Output 04/30/20 05/01/20 05/02/20 06:59 06:59 06:59 Intake Total 640 840 Output Total 1450 1270 Balance -810 -430 Weight 53.3 kg 52.5 kg General appearance: PRESENT: mild distress - Mild to moderate distress, thin, we ll-developed Head exam: PRESENT: atraumatic, normocephalic Ear exam: PRESENT: normal external ear exam. ABSENT: bleeding, drainage Teeth exam: PRESENT: poor dentation Neck exam: PRESENT: tracheostomy - Currently on BiPAP Respiratory exam: PRESENT: prolonged expiratory phas, rhonchi - Mostly on the right, tachypnea, other - Very shortened inspiratory phase due to tachypnea. ABSENT: rales, wheezes Cardiovascular exam: PRESENT: RRR, +S1, +S2. ABSENT: bradycardia, diastolic murmur, irregular rhythm, systolic murmur, tachycardia GI/Abdominal exam: PRESENT: normal bowel sounds, soft. ABSENT: distended, guarding, tenderness Rectal exam: ABSENT: deferred Gentrourinary exam: PRESENT: indwelling catheter Extremities exam: ABSENT: pedal edema Neurological exam: PRESENT: alert, awake, oriented to person, oriented to place, oriented to situation, CN II-XII grossly intact Psychiatric exam: PRESENT: agitated Focused psych exam: ABSENT: delusional, paranoid, restlessness Skin exam: PRESENT: dry, pallor, warm. ABSENT: rash Results Laboratory Results: 05/01/20 08:18 05/01/20 08:18 05/01/20 05/01/20 08:18 08:18 WBC 11.5 H RBC 3.66 L Hgb 10.2 L Hct 31.0 L MCV 85 MCH 27.8 MCHC 32.7 RDW 17.6 H Plt Count 425 Seg Neutrophils % 74.3 Sodium 136.0 L Potassium 4.4 Chloride 98 Carbon Dioxide 32 H Anion Gap 6 BUN 20 Creatinine 0.83 Est GFR ( Amer) > 60 Glucose 87 Calcium 8.7 Magnesium 1.7 Total Bilirubin 0.4 AST 10 L Alkaline Phosphatase 91 Total Protein 5.8 L Albumin 2.4 L Prealbumin 9.3 L 04/20/20 04/23/20 04/23/20 09:00 01:55 01:55 Creatine Kinase < 20 L CK-MB (CK-2) 2.20 Troponin I < 0.012 0.082 NT-Pro-B Natriuret Pep 79057 H 04/23/20 04/23/20 04/23/20 05:58 08:22 14:50 Creatine Kinase < 20 L < 20 L CK-MB (CK-2) 2.24 Troponin I 0.066 NT-Pro-B Natriuret Pep 04/23/20 14:50 Creatine Kinase CK-MB (CK-2) 2.09 Troponin I 0.057 NT-Pro-B Natriuret Pep Impressions: Modified Barium Swallow 04/26/20 00:01 IMPRESSION: LARYNGEAL PENETRATION WITH THIN BARIUM, WITH TRACE ASPIRATION FROM RESIDUALS. PLEASE SEE SPEECH PATHOLOGIST REPORT FOR OTHER FINDINGS AND RECOMMENDATIONS. Chest X-Ray 04/30/20 00:00 IMPRESSION: Improving aeration of the lungs. Assessment and Plan - Diagnosis (1) Bacteremia due to Enterococcus Is this a current diagnosis for this admission?: Yes Plan: Enterococcus bacteremia sensitive to penicillins and vancomycin. Continue vancomycin; Day #7. Unfortunately, patient continues to refuse repeat blood cultures. Have not been able to determine that patient has cleared his bacteremia in order to establish an EOT date. Repeat Blood cultures remain pending. 04/30/2020-vancomycin through 05/01/2020. We will obtain repeat blood cultures to ensure resolution of bacteremia. 05/01/2020-vancomycin therapy complete. Repeat blood cultures ordered but not collected yet. (2) Acute on chronic respiratory failure with hypoxia and hypercapnia Is this a current diagnosis for this admission?: Yes Plan: Likely due to healthcare associated pneumonia or aspiration pneumonia. Sputum culture growing MRSA. Continue vancomycin; Day #7. Aggressive pulmonary toileting, tracheostomy care, monitor for aspiration. 04/30/2020-reviewing records from the previous week reveals sporadic use of ventilator. Continue oxygen supplementation by trach collar to keep saturations greater than or equal to 90%. 05/01/2020-patient actually sounds worse today than yesterday. He is currently on BiPAP. He still does not appreciate the effects that his dysfunctional swallow is having on his overall health. He still believes that he can eat solid foods. Repeat chest x-ray yesterday still showed significant right lower lobe infiltrate. He is continuing to aspirate just based on clinical findings. If he still requires BiPAP I will repeat a chest x-ray tomorrow to look for significant worsening. The patient continues to request a liberal diet. At this point it is impractical and with severe risk. We will continue to discuss with the patient tomorrow of the risks of his wishes to remove the tracheostomy and advance his diet versus the constraints of the proposed treatment plan based on concrete findings. (3) Bilateral pneumonia Qualifiers: Pneumonia type: due to unspecified organism Lung location: lower lobe of lung Qualified Code(s): J18.9 - Pneumonia, unspecified organism Is this a current diagnosis for this admission?: Yes Plan: As per #2. 04/30/2020-complete vancomycin therapy as ordered. Repeat chest x-ray to assess progress. Still with very congested breath sounds but this could all be central. 05/01/2020-still with right lower lobe infiltrate. White blood cell count is slightly better but the patient did require BiPAP therapy today. We will continue to monitor closely. We may need to repeat a sputum culture if his clinical status worsens. (4) Critical illness myopathy Is this a current diagnosis for this admission?: Yes Plan: 04/21/2020-resume physical therapy 04/22/2020-due to marked infection PT today is not appropriate. Will monitor closely each day and resume physical therapy when the patient's general condition improves. 04/30/2020-reviewed physical therapy notes. Patient will need ongoing PT and OT due to the severe deconditioning from his prolonged illness. 05/01/2020-continue physical therapy and Occupational Therapy. I believe the patient was given bands for exercising his upper extremities while in bed. (5) Candiduria Is this a current diagnosis for this admission?: Yes Plan: Urine culture positive for Leah albicans. The patient does have an indwelling Varner catheter has been switched. This is likely contamination. Will monitor closely. No specific treatment at this time. Goal is to remove the Varner catheter care. 04/30/2020-consider intermittent clamping of catheter to retrain bladder. Urinary incontinence would be extremely bad for his decubitus ulcers. We will need to decide the best plan of care considering all factors. (6) Hyperglycemia due to type 2 diabetes mellitus Qualifiers: Diabetes mellitus exterminator helper insulin use: with penitentiary use Qualified Code(s): E11.65 - Type 2 diabetes mellitus with hyperglycemia; Z79.4 - [facility] (current) use of insulin Is this a current diagnosis for this admission?: Yes Plan: 04/30/2020-continue Accu-Cheks, Lantus and sliding scale coverage. 05/01/2020-glucose control is reasonable at this time. His intake does vary. He continues to refuse PEG tube placement. This would in fact significantly improve the trajectory of his recovery. This has been suggested multiple times and he adamantly refuses each time. (7) Leukocytosis Qualifiers: Leukocytosis type: unspecified Qualified Code(s): D72.829 - Elevated white blood cell count, unspecified Is this a current diagnosis for this admission?: Yes Plan: 04/21/2020-secondary to infection. Will monitor and that should resolve with antibiotic therapy. 04/22/2020-improving with antibiotics 04/30/2020-recheck CBC tomorrow. White blood cell count was increasing most recently. Infection would be the most likely contributing factor. 05/01/2020-white blood cell count is down to 11.5. We will continue to monitor especially in light of the increased mucus and rhonchi noted today. (8) Malnutrition Qualifiers: Malnutrition type: protein-calorie malnutrition Is this a current diagnosis for this admission?: Yes Plan: Due to low p.o. intake. Unfortunately patient has been having aspiration and has been refusing other modes of nutrition, patient has adamantly refused PEG tube and TPN. On 04/26/2020 patient had a modified barium swallow which and recommendation was for pured diet. Patient still at risk of aspiration. Continue feeds as tolerated, registered dietitian has been consulted. 04/30/2020-modified barium swallow performed last week again revealed pooling and aspiration. Patient refuses PEG tube. We will continue with pured diet. Patient constantly asking for regular food. Will need to review his recent course of aspiration pneumonia and discuss realistic expectations. 05/01/2020-still refusing PEG tube placement. Still high risk of aspiration. Patient is requesting advancing his diet. He may need to review the risks and benefits of advancing his diet. He did have a friend actually bringing him food from outside previously. This is temporarily stopped. Continue current diet orders at this time. (9) Tracheostomy in place Is this a current diagnosis for this admission?: Yes Plan: Continue tracheostomy care. Aggressive pulmonary toileting. 05/01/2020-respiratory therapy reports increased mucus with deep suctioning. Currently on BiPAP. There really is no consideration for decannulation at this point due to his current status. (10) Dysphagia Qualifiers: Dysphagia type: oropharyngeal phase Qualified Code(s): R13.12 - Dysphagia, oropharyngeal phase Is this a current diagnosis for this admission?: Yes Plan: 04/21/2020-resume speech therapy 04/22/2020-due to the significant change in chest x-ray consider n.p.o. status with a nasogastric tube/Dobbhoff for tube feeding 04/30/2020- 05/01/2020-imaging studies as well as clinical presentation suggest ongoing a spiration. The patient is in denial. (11) Medical non-compliance Is this a current diagnosis for this admission?: Yes Plan: 04/30/2020-has been requesting food that is not on his recommended diet. In addition he has been refusing vital signs earlier today as well as over the last several days. He is not a willing participant in the treatment plan at this time. 05/01/2020-I did not invite a conversation regarding liberalizing his diet and decannulation today as his clinical condition has deteriorated from yesterday. He is still pushing to liberalize his diet and he still wants his tracheostomy out. We will need to have a tiffanie discussion with him. He chooses to be noncompliant. He does not acknowledge the heroic efforts of the medical staff including nursing to help take care of him. I feel he lacks a certain degree of insight. I would be happy to liberalize his diet and decannulate him under the condition that he understands the risk and changes his CODE STATUS to DNR with the stipulation that it is not to change back when he decompensates. He clearly will decompensate based on multiple clinical factors and his history. He is not agreed to that drastic a plan as yet. If he remains a full code then we will need to adhere to that and provide the safest medical treatment possible. Unfortunately he has the right to be noncompliant and disregard our treatment plan. (12) Hypotension Qualifiers: Hypotension type: unspecified hypotension type Qualified Code(s): I95.9 - Hypotension, unspecified Is this a current diagnosis for this admission?: Yes Plan: Present on admission. Resolved - Time Time Spent with patient: 25-34 minutes Medications reviewed and adjusted accordingly: Yes Anticipated Discharge Disposition: Unknown Anticipated Discharge Timeframe: Unknown
[2020-05-01] MEDS: DIPHENHYDRAMINE HCL 50 MG/ML VIAL IV PRN ×3 (14:36→22:43)
[2020-05-02] MEDS: NITROGLYCERIN 2% OINTMENT 1 GM PACKET TP SCH ×4 (00:17→17:31)
[2020-05-02] MEDS: HYDROMORPHONE HCL INJ/PF 2 MG/ML AMPULE IV PRN ×5 (00:33→19:44)
[2020-05-02] MEDS: DIPHENHYDRAMINE HCL 50 MG/ML VIAL IV PRN ×5 (02:45→19:44)
[2020-05-02] MEDS: HEPARIN SOD (PORCINE) 5,000 UNIT/ML 1 ML VIAL SUBCUT SCH ×3 (06:41→22:11)
[2020-05-02] MEDS: FUROSEMIDE 20 MG TABLET PO SCH (10:38)
[2020-05-02] MEDS: LISINOPRIL 5 MG TABLET PO SCH ×2 (10:38→22:13)
[2020-05-02] MEDS: SENNOSIDES/DOCUSATE 8.6-50 MG 1 EACH TABLET PO SCH (10:38)
[2020-05-02] MEDS: THIAMINE HCL 100 MG TABLET PO SCH (10:38)
[2020-05-02] MEDS: LACTULOSE SYRUP 20 GM/30 ML UDCUP PO SCH ×2 (10:38→22:10)
[2020-05-02] MEDS: PHOSPHORUS #1 250 MG TABLET PO SCH ×4 (10:38→22:10)
[2020-05-02] MEDS: METOPROLOL SUCCINATE 25 MG TAB.SR.24H PO SCH (10:38)
[2020-05-02] MEDS: SCOPOLAMINE HYDROBROMIDE 1.5 MG PATCH.TD72 TD SCH (10:40)
--- NOTE | 2020-05-02 13:27 | PDOC PROGRESS REPORT ---
Subjective Progress Note for:: 05/02/20 Subjective:: Patient is extremely calm today. He is actually on trach collar oxygen and is very comfortable. He is significantly less congested today than yesterday. He continues to be somewhat frustrated regarding diet and treatment plan. He reports that he still has nausea. He did get up in the wheelchair again with physical therapy today. He uncovered his lunch tray. It was pured. He told me "I am not eating dog food ". Reason For Visit: ACUTE HYPOXIC RESPIRATORY FAILURE, HYPOTENSION Physical Exam Vital Signs: Temp Pulse Resp BP Pulse Ox 97.7 F 98 11 L 136/82 H 99 05/02/20 02:53 05/02/20 02:53 05/02/20 08:47 05/02/20 02:53 05/02/20 08:47 Intake & Output 05/01/20 05/02/20 05/03/20 06:59 06:59 06:59 Intake Total 840 1221 Output Total 1270 1090 Balance -430 131 Weight 52.5 kg 600 kg 53.5 kg General appearance: PRESENT: no acute distress, cooperative, thin Head exam: PRESENT: atraumatic, normocephalic Ear exam: PRESENT: normal external ear exam. ABSENT: bleeding, drainage Teeth exam: PRESENT: poor dentation Neck exam: PRESENT: tracheostomy - With oxygen supplementation by trach collar Respiratory exam: PRESENT: rhonchi - Occasional rhonchi on the right, symmetrical, unlabored. ABSENT: prolonged expiratory phas, rales, tachypnea, wheezes Cardiovascular exam: PRESENT: RRR, +S1, +S2 GI/Abdominal exam: PRESENT: normal bowel sounds, soft. ABSENT: distended, guarding, tenderness Rectal exam: PRESENT: deferred Gentrourinary exam: PRESENT: indwelling catheter Extremities exam: ABSENT: pedal edema Musculoskeletal exam: PRESENT: deformity - Right knee chronically enlarged, other - Decreased muscle mass. ABSENT: dislocation Neurological exam: PRESENT: alert, awake, oriented to person, oriented to place, oriented to time, oriented to situation, CN II-XII grossly intact. ABSENT: altered Psychiatric exam: PRESENT: appropriate affect - Very calm today. ABSENT: a gitated, anxious Focused psych exam: ABSENT: delusional, paranoid, restlessness Skin exam: PRESENT: dry, pallor, warm. ABSENT: rash Results Laboratory Results: 05/01/20 08:18 05/01/20 08:18 04/20/20 04/23/20 04/23/20 09:00 01:55 01:55 Creatine Kinase < 20 L CK-MB (CK-2) 2.20 Troponin I < 0.012 0.082 NT-Pro-B Natriuret Pep 08054 H 04/23/20 04/23/20 04/23/20 05:58 08:22 14:50 Creatine Kinase < 20 L < 20 L CK-MB (CK-2) 2.24 Troponin I 0.066 NT-Pro-B Natriuret Pep 04/23/20 14:50 Creatine Kinase CK-MB (CK-2) 2.09 Troponin I 0.057 NT-Pro-B Natriuret Pep Impressions: Modified Barium Swallow 04/26/20 00:01 IMPRESSION: LARYNGEAL PENETRATION WITH THIN BARIUM, WITH TRACE ASPIRATION FROM RESIDUALS. PLEASE SEE SPEECH PATHOLOGIST REPORT FOR OTHER FINDINGS AND RECOMMENDATIONS. Chest X-Ray 04/30/20 00:00 IMPRESSION: Improving aeration of the lungs. Assessment and Plan - Diagnosis (1) Bacteremia due to Enterococcus Is this a current diagnosis for this admission?: Yes Plan: Enterococcus bacteremia sensitive to penicillins and vancomycin. Continue vancomycin; Day #7. Unfortunately, patient continues to refuse repeat blood cultures. Have not been able to determine that patient has cleared his bacteremia in order to establish an EOT date. Repeat Blood cultures remain pending. 04/30/2020-vancomycin through 05/01/2020. We will obtain repeat blood cultures to ensure resolution of bacteremia. 05/01/2020-vancomycin therapy complete. Repeat blood cultures ordered but not collected yet. 05/02/2020-repeat blood cultures to ensure resolution of bacteremia unfortunately not collected as yet. (2) Acute on chronic respiratory failure with hypoxia and hypercapnia Is this a current diagnosis for this admission?: Yes Plan: Likely due to healthcare associated pneumonia or aspiration pneumonia. Sputum culture growing MRSA. Continue vancomycin; Day #7. Aggressive pulmonary toileting, tracheostomy care, monitor for aspiration. 04/30/2020-reviewing records from the previous week reveals sporadic use of ventilator. Continue oxygen supplementation by trach collar to keep saturations greater than or equal to 90%. 05/01/2020-patient actually sounds worse today than yesterday. He is currently on BiPAP. He still does not appreciate the effects that his dysfunctional swallow is having on his overall health. He still believes that he can eat solid foods. Repeat chest x-ray yesterday still showed significant right lower lobe infiltrate. He is continuing to aspirate just based on clinical findings. If he still requires BiPAP I will repeat a chest x-ray tomorrow to look for si gnificant worsening. The patient continues to request a liberal diet. At this point it is impractical and with severe risk. We will continue to discuss with the patient tomorrow of the risks of his wishes to remove the tracheostomy and advance his diet versus the constraints of the proposed treatment plan based on concrete findings. 05/02/2020-less congested today. I reminded him of the need to continue working on a strong cough to clear secretions. The next step would be to change the trach to cuffless. I will do this if he has several more days without respiratory distress. We will try and keep the cuff deflated as much as possible. (3) Bilateral pneumonia Qualifiers: Pneumonia type: due to unspecified organism Lung location: lower lobe of lung Qualified Code(s): J18.9 - Pneumonia, unspecified organism Is this a current diagnosis for this admission?: Yes Plan: As per #2. 04/30/2020-complete vancomycin therapy as ordered. Repeat chest x-ray to assess progress. Still with very congested breath sounds but this could all be central. 05/01/2020-still with right lower lobe infiltrate. White blood cell count is slightly better but the patient did require BiPAP therapy today. We will continue to monitor closely. We may need to repeat a sputum culture if his clinical status worsens. 05/02/2020-clinically improved. Chest x-ray still shows right lower lobe infiltrate. Breathing more comfortably today. Continue to work towards decannulation. (4) Critical illness myopathy Is this a current diagnosis for this admission?: Yes Plan: 04/21/2020-resume physical therapy 04/22/2020-due to marked infection PT today is not appropriate. Will monitor closely each day and resume physical therapy when the patient's general condition improves. 04/30/2020-reviewed physical therapy notes. Patient will need ongoing PT and OT due to the severe deconditioning from his prolonged illness. 05/01/2020-continue physical therapy and Occupational Therapy. I believe the patient was given bands for exercising his upper extremities while in bed. 05/02/2020-continue physical therapy. Continue occupational therapy. I will check with therapy as I thought there would be giving the patient exercise bands so that he can work his upper body while in bed. He did report that he was up in the wheelchair again today. (5) Candiduria Is this a current diagnosis for this admission?: Yes Plan: Urine culture positive for Leah albicans. The patient does have an indwelling Varner catheter has been switched. This is likely contamination. Will monitor closely. No specific treatment at this time. Goal is to remove the Varner catheter care. 04/30/2020-consider intermittent clamping of catheter to retrain bladder. Urinary incontinence would be extremely bad for his decubitus ulcers. We will need to decide the best plan of care considering all factors. 05/02/2020-no acute intervention at this time. (6) Hyperglycemia due to type 2 diabetes mellitus Qualifiers: Diabetes mellitus senior living insulin use: with senior living use Qualified Code(s): E11.65 - Type 2 diabetes mellitus with hyperglycemia; Z79.4 - long-term (current) use of insulin Is this a current diagnosis for this admission?: Yes Plan: 04/30/2020-continue Accu-Cheks, Lantus and sliding scale coverage. 05/01/2020-glucose control is reasonable at this time. His intake does vary. He continues to refuse PEG tube placement. This would in fact significantly improve the trajectory of his recovery. This has been suggested multiple times and he adamantly refuses each time. 05/02/2020-acceptable glucose control at this time. Will need to adjust treatment as his diet changes. (7) Leukocytosis Qualifiers: Leukocytosis type: unspecified Qualified Code(s): D72.829 - Elevated white blood cell count, unspecified Is this a current diagnosis for this admission?: Yes Plan: 04/21/2020-secondary to infection. Will monitor and that should resolve with antibiotic therapy. 04/22/2020-improving with antibiotics 04/30/2020-recheck CBC tomorrow. White blood cell count was increasing most recently. Infection would be the most likely contributing factor. 05/01/2020-white blood cell count is down to 11.5. We will continue to monitor especially in light of the increased mucus and rhonchi noted today. 05/02/2020-as noted above his white blood cell count was 11.5 yesterday. Consider rechecking in 1 or 2 days. (8) Malnutrition Qualifiers: Malnutrition type: protein-calorie malnutrition Is this a current diagnosis for this admission?: Yes Plan: Due to low p.o. intake. Unfortunately patient has been having aspiration and has been refusing other modes of nutrition, patient has adamantly refused PEG tube and TPN. On 04/26/2020 patient had a modified barium swallow which and recommendation was for pured diet. Patient still at risk of aspiration. Continue feeds as tolerated, registered dietitian has been consulted. 04/30/2020-modified barium swallow performed last week again revealed pooling and aspiration. Patient refuses PEG tube. We will continue with pured diet. Patient constantly asking for regular food. Will need to review his recent course of aspiration pneumonia and discuss realistic expectations. 05/01/2020-still refusing PEG tube placement. Still high risk of aspiration. Patient is requesting advancing his diet. He may need to review the risks and benefits of advancing his diet. He did have a friend actually bringing him food from outside previously. This is temporarily stopped. Continue current diet orders at this time. 05/02/2020-with his current improvements I agreed to a single trial of chicken salad. We discussed trialing other foodstuffs based on his ability to eat the chicken salad without marked aspiration. He refuses sherbet. He was eating ice cream previously. Consider ice cream with the addition of protein powder. (9) Tracheostomy in place Is this a current diagnosis for this admission?: Yes Plan: Continue tracheostomy care. Aggressive pulmonary toileting. 05/01/2020-respiratory therapy reports increased mucus with deep suctioning. Cu rrently on BiPAP. There really is no consideration for decannulation at this point due to his current status. 05/02/2020-continue to work towards decannulation (10) Dysphagia Qualifiers: Dysphagia type: oropharyngeal phase Qualified Code(s): R13.12 - Dysphagia, oropharyngeal phase Is this a current diagnosis for this admission?: Yes Plan: 04/21/2020-resume speech therapy 04/22/2020-due to the significant change in chest x-ray consider n.p.o. status with a nasogastric tube/Dobbhoff for tube feeding 04/30/2020- 05/01/2020-imaging studies as well as clinical presentation suggest ongoing aspiration. The patient is in denial. 05/02/2020-controlled trials of different foodstuffs. We did initiate this during his last admission. We will need to monitor closely. (11) Medical non-compliance Is this a current diagnosis for this admission?: Yes Plan: 04/30/2020-has been requesting food that is not on his recommended diet. In addition he has been refusing vital signs earlier today as well as over the last several days. He is not a willing participant in the treatment plan at this time. 05/01/2020-I did not invite a conversation regarding liberalizing his diet and decannulation today as his clinical condition has deteriorated from yesterday. He is still pushing to liberalize his diet and he still wants his tracheostomy out. We will need to have a tiffanie discussion with him. He chooses to be noncompliant. He does not acknowledge the heroic efforts of the medical staff including nursing to help take care of him. I feel he lacks a certain degree of insight. I would be happy to liberalize his diet and decannulate him under the condition that he understands the risk and changes his CODE STATUS to DNR with the stipulation that it is not to change back when he decompensates. He clearly will decompensate based on multiple clinical factors and his history. He is not agreed to that drastic a plan as yet. If he remains a full code then we will need to adhere to that and provide the safest medical treatment possible. Unfortunately he has the right to be noncompliant and disregard our treatment plan. 05/02/2020-continued encouragement regarding consistency of treatment plan. (12) Hypotension Qualifiers: Hypotension type: unspecified hypotension type Qualified Code(s): I95.9 - Hypotension, unspecified Is this a current diagnosis for this admission?: Yes Plan: Present on admission. Resolved - Time Time Spent with patient: 15-24 minutes Medications reviewed and adjusted accordingly: Yes Anticipated Discharge Disposition: Possible LTAC placement Anticipated Discharge Timeframe: Unknown
[2020-05-02] MEDS: INSULIN LISPRO 100 UNIT/ML 3 ML VIAL SUBCUT SCH ×3 (14:28→21:50)
[2020-05-02] MEDS: PROMETHAZINE HCL INJ 25 MG/1 ML VIAL IV PRN ×2 (15:35→19:44)
[2020-05-03] MEDS: NITROGLYCERIN 2% OINTMENT 1 GM PACKET TP SCH ×4 (00:10→17:06)
[2020-05-03] MEDS: DIPHENHYDRAMINE HCL 50 MG/ML VIAL IV PRN ×3 (04:25→16:15)
[2020-05-03] MEDS: HYDROMORPHONE HCL INJ/PF 2 MG/ML AMPULE IV PRN ×4 (04:25→20:15)
[2020-05-03] MEDS: PROMETHAZINE HCL INJ 25 MG/1 ML VIAL IV PRN ×4 (04:26→20:15)
[2020-05-03] MEDS: HEPARIN SOD (PORCINE) 5,000 UNIT/ML 1 ML VIAL SUBCUT SCH ×2 (05:02→17:05)
[2020-05-03] MEDS ORDERED: PANTOPRAZOLE SODIUM 40 MG TABLET.DR PO SCH (06:00)
[2020-05-03] MEDS: PHOSPHORUS #1 250 MG TABLET PO SCH ×3 (11:07→21:08)
[2020-05-03] MEDS: INSULIN LISPRO 100 UNIT/ML 3 ML VIAL SUBCUT SCH ×4 (11:07→21:10)
[2020-05-03] MEDS: LACTULOSE SYRUP 20 GM/30 ML UDCUP PO SCH ×2 (11:09→21:08)
[2020-05-03] MEDS: SENNOSIDES/DOCUSATE 8.6-50 MG 1 EACH TABLET PO SCH (11:10)
[2020-05-03] MEDS: FUROSEMIDE 20 MG TABLET PO SCH (11:15)
[2020-05-03] MEDS: METOPROLOL SUCCINATE 25 MG TAB.SR.24H PO SCH (11:15)
[2020-05-03] MEDS: LISINOPRIL 5 MG TABLET PO SCH ×2 (11:15→21:25)
[2020-05-03] MEDS: THIAMINE HCL 100 MG TABLET PO SCH (12:50)
--- NOTE | 2020-05-03 16:38 | PDOC PROGRESS REPORT ---
Subjective Progress Note for:: 05/03/20 Subjective:: Nurses report that patient had large volume emesis early this morning. Caused soiling all over the tracheostomy area. The patient has been very congested. Large amounts of sputum have been obtained by deep suctioning. The patient is still able to oxygenate on trach collar. Reason For Visit: ACUTE HYPOXIC RESPIRATORY FAILURE, HYPOTENSION Physical Exam Vital Signs: Temp Pulse Resp BP Pulse Ox 97.6 F 104 H 18 152/90 H 100 05/03/20 11:35 05/03/20 14:00 05/03/20 11:35 05/03/20 11:35 05/03/20 11:35 Intake & Output 05/02/20 05/03/20 05/04/20 06:59 06:59 06:59 Intake Total 1221 1674 Output Total 1090 2025 Balance 131 -351 Weight 600 kg 52.8 kg General appearance: PRESENT: cooperative - Has to write messages with cuff inflated, mild distress, thin, well-developed Head exam: PRESENT: atraumatic, normocephalic Eye exam: PRESENT: conjunctiva pale. ABSENT: scleral icterus Ear exam: PRESENT: normal external ear exam. ABSENT: bleeding, drainage Mouth exam: PRESENT: moist, tongue midline Teeth exam: PRESENT: poor dentation Respiratory exam: PRESENT: rhonchi - On the right, symmetrical, other - Extremely wet congested cough. ABSENT: rales, wheezes Cardiovascular exam: PRESENT: RRR, +S1, +S2. ABSENT: bradycardia, diastolic murmur, irregular rhythm, systolic murmur, tachycardia GI/Abdominal exam: PRESENT: normal bowel sounds, soft. ABSENT: distended, guarding, tenderness Rectal exam: PRESENT: deferred Gentrourinary exam: PRESENT: indwelling catheter Extremities exam: ABSENT: pedal edema Musculoskeletal exam: PRESENT: deformity - Right knee Neurological exam: PRESENT: alert, awake, oriented to person, oriented to place, oriented to time, oriented to situation, CN II-XII grossly intact Psychiatric exam: PRESENT: flat affect. ABSENT: agitated, anxious Focused psych exam: ABSENT: delusional, paranoid, restlessness Skin exam: PRESENT: dry, pallor, warm. ABSENT: cyanosis, rash Results Laboratory Results: 05/01/20 08:18 05/01/20 08:18 04/20/20 04/23/20 04/23/20 09:00 01:55 01:55 Creatine Kinase < 20 L CK-MB (CK-2) 2.20 Troponin I < 0.012 0.082 NT-Pro-B Natriuret Pep 08446 H 04/23/20 04/23/20 04/23/20 05:58 08:22 14:50 Creatine Kinase < 20 L < 20 L CK-MB (CK-2) 2.24 Troponin I 0.066 NT-Pro-B Natriuret Pep 04/23/20 14:50 Creatine Kinase CK-MB (CK-2) 2.09 Troponin I 0.057 NT-Pro-B Natriuret Pep Impressions: Modified Barium Swallow 04/26/20 00:01 IMPRESSION: LARYNGEAL PENETRATION WITH THIN BARIUM, WITH TRACE ASPIRATION FROM RESIDUALS. PLEASE SEE SPEECH PATHOLOGIST REPORT FOR OTHER FINDINGS AND RECOMMENDATIONS. Chest X-Ray 04/30/20 00:00 IMPRESSION: Improving aeration of the lungs. Assessment and Plan - Diagnosis (1) Bacteremia due to Enterococcus Is this a current diagnosis for this admission?: Yes Plan: Enterococcus bacteremia sensitive to penicillins and vancomycin. Continue vancomycin; Day #7. Unfortunately, patient continues to refuse repeat blood cultures. Have not been able to determine that patient has cleared his bacteremia in order to establish an EOT date. Repeat Blood cultures remain pending. 04/30/2020-vancomycin through 05/01/2020. We will obtain repeat blood cultures to ensure resolution of bacteremia. 05/01/2020-vancomycin therapy complete. Repeat blood cultures ordered but not collected yet. 05/02/2020-repeat blood cultures to ensure resolution of bacteremia unfortunately not collected as yet. 05/03/2020-blood cultures ordered. Unfortunately not collected as yet. Vancomycin therapy completed. Bacteremia should be resolved. (2) Acute on chronic respiratory failure with hypoxia and hypercapnia Is this a current diagnosis for this admission?: Yes Plan: Likely due to healthcare associated pneumonia or aspiration pneumonia. Sputum culture growing MRSA. Continue vancomycin; Day #7. Aggressive pulmonary toileting, tracheostomy care, monitor for aspiration. 04/30/2020-reviewing records from the previous week reveals sporadic use of ventilator. Continue oxygen supplementation by trach collar to keep saturations greater than or equal to 90%. 05/01/2020-patient actually sounds worse today than yesterday. He is currently on BiPAP. He still does not appreciate the effects that his dysfunctional swallow is having on his overall health. He still believes that he can eat solid foods. Repeat chest x-ray yesterday still showed significant right lower lobe infiltrate. He is continuing to aspirate just based on clinical findings. If he still requires BiPAP I will repeat a chest x-ray tomorrow to look for significant worsening. The patient continues to request a liberal diet. At this point it is impractical and with severe risk. We will continue to discuss with the patient tomorrow of the risks of his wishes to remove the tracheostomy and advance his diet versus the constraints of the proposed treatment plan based on concrete findings. 05/02/2020-less congested today. I reminded him of the need to continue working on a strong cough to clear secretions. The next step would be to change the trach to cuffless. I will do this if he has several more days without respiratory distress. We will try and keep the cuff deflated as much as possible. 05/03/2020-large volume emesis with obvious aspiration and significant mucus production most likely the result of trial of a meal. This certainly means we will discontinue any trials of change in diet. He is able to remain on trach collar despite this episode. (3) Bilateral pneumonia Qualifiers: Pneumonia type: due to unspecified organism Lung location: lower lobe of lung Qualified Code(s): J18.9 - Pneumonia, unspecified organism Is this a current diagnosis for this admission?: Yes Plan: As per #2. 04/30/2020-complete vancomycin therapy as ordered. Repeat chest x-ray to assess progress. Still with very congested breath sounds but this could all be central. 05/01/2020-still with right lower lobe infiltrate. White blood cell count is sl ightly better but the patient did require BiPAP therapy today. We will continue to monitor closely. We may need to repeat a sputum culture if his clinical status worsens. 05/02/2020-clinically improved. Chest x-ray still shows right lower lobe infiltrate. Breathing more comfortably today. Continue to work towards decannulation. 05/03/2020-antibiotic therapy completed. After today's episode may need to repeat chest x-ray and reassess. (4) Critical illness myopathy Is this a current diagnosis for this admission?: Yes Plan: 04/21/2020-resume physical therapy 04/22/2020-due to marked infection PT today is not appropriate. Will monitor closely each day and resume physical therapy when the patient's general condition improves. 04/30/2020-reviewed physical therapy notes. Patient will need ongoing PT and OT due to the severe deconditioning from his prolonged illness. 05/01/2020-continue physical therapy and Occupational Therapy. I believe the patient was given bands for exercising his upper extremities while in bed. 05/02/2020-continue physical therapy. Continue occupational therapy. I will check with therapy as I thought there would be giving the patient exercise bands so that he can work his upper body while in bed. He did report that he was up in the wheelchair again today. 05/03/2020-continue to encourage physical therapy. Patient has had almost 14 kg weight loss. (5) Candiduria Is this a current diagnosis for this admission?: Yes Plan: Urine culture positive for Leah albicans. The patient does have an indwelling Varner catheter has been switched. This is likely contamination. Will monitor closely. No specific treatment at this time. Goal is to remove the Varner catheter care. 04/30/2020-consider intermittent clamping of catheter to retrain bladder. Urinary incontinence would be extremely bad for his decubitus ulcers. We will need to decide the best plan of care considering all factors. 05/02/2020-no acute intervention at this time. (6) Hyperglycemia due to type 2 diabetes mellitus Qualifiers: Diabetes mellitus ad terminal makeup operator insulin use: with ad terminal makeup operator use Qualified Code(s): E11.65 - Type 2 diabetes mellitus with hyperglycemia; Z79.4 - MCC (current) use of insulin Is this a current diagnosis for this admission?: Yes Plan: 04/30/2020-continue Accu-Cheks, Lantus and sliding scale coverage. 05/01/2020-glucose control is reasonable at this time. His intake does vary. He continues to refuse PEG tube placement. This would in fact significantly improve the trajectory of his recovery. This has been suggested multiple times and he adamantly refuses each time. 05/02/2020-acceptable glucose control at this time. Will need to adjust treatment as his diet changes. 05/03/2020-continue current course (7) Leukocytosis Qualifiers: Leukocytosis type: unspecified Qualified Code(s): D72.829 - Elevated white blood cell count, unspecified Is this a current diagnosis for this admission?: Yes Plan: 04/21/2020-secondary to infection. Will monitor and that should resolve with antibiotic therapy. 04/22/2020-improving with antibiotics 04/30/2020-recheck CBC tomorrow. White blood cell count was increasing most recently. Infection would be the most likely contributing factor. 05/01/2020-white blood cell count is down to 11.5. We will continue to monitor especially in light of the increased mucus and rhonchi noted today. 05/02/2020-as noted above his white blood cell count was 11.5 yesterday. Consider rechecking in 1 or 2 days. (8) Malnutrition Qualifiers: Malnutrition type: protein-calorie malnutrition Is this a current diagnosis for this admission?: Yes Plan: Due to low p.o. intake. Unfortunately patient has been having aspiration and has been refusing other modes of nutrition, patient has adamantly refused PEG tube and TPN. On 04/26/2020 patient had a modified barium swallow which and recommendation was for pured diet. Patient still at risk of aspiration. Continue feeds as tolerated, registered dietitian has been consulted. 04/30/2020-modified barium swallow performed last week again revealed pooling and aspiration. Patient refuses PEG tube. We will continue with pured diet. Patient constantly asking for regular food. Will need to review his recent course of aspiration pneumonia and discuss realistic expectations. 05/01/2020-still refusing PEG tube placement. Still high risk of aspiration. Patient is requesting advancing his diet. He may need to review the risks and benefits of advancing his diet. He did have a friend actually bringing him food from outside previously. This is temporarily stopped. Continue current diet orders at this time. 05/02/2020-with his current improvements I agreed to a single trial of chicken salad. We discussed trialing other foodstuffs based on his ability to eat the chicken salad without marked aspiration. He refuses sherbet. He was eating ice cream previously. Consider ice cream with the addition of protein powder. 05/03/2020-considering the difficulties encountered and the patient's unwillingness to accept a PEG tube we may be forced to utilize TPN. I will di scuss with the patient tomorrow. (9) Tracheostomy in place Is this a current diagnosis for this admission?: Yes Plan: Continue tracheostomy care. Aggressive pulmonary toileting. 05/01/2020-respiratory therapy reports increased mucus with deep suctioning. Currently on BiPAP. There really is no consideration for decannulation at this point due to his current status. 05/02/2020-continue to work towards decannulation 05/03/2020-continue current tracheostomy care (10) Dysphagia Qualifiers: Dysphagia type: oropharyngeal phase Qualified Code(s): R13.12 - Dysphagia, oropharyngeal phase Is this a current diagnosis for this admission?: Yes Plan: 04/21/2020-resume speech therapy 04/22/2020-due to the significant change in chest x-ray consider n.p.o. status with a nasogastric tube/Dobbhoff for tube feeding 04/30/2020- 05/01/2020-imaging studies as well as clinical presentation suggest ongoing aspiration. The patient is in denial. 05/02/2020-controlled trials of different foodstuffs. We did initiate this during his last admission. We will need to monitor closely. 05/03/2020-it is unclear if the tracheostomy cuff was up or down during the emesis episode earlier. He does sound more congested today. It may not be feasible to continue to attempt oral nutrition at this point. (11) Medical non-compliance Is this a current diagnosis for this admission?: Yes Plan: 04/30/2020-has been requesting food that is not on his recommended diet. In addition he has been refusing vital signs earlier today as well as over the last several days. He is not a willing participant in the treatment plan at this time. 05/01/2020-I did not invite a conversation regarding liberalizing his diet and decannulation today as his clinical condition has deteriorated from yesterday. He is still pushing to liberalize his diet and he still wants his tracheostomy out. We will need to have a tiffanie discussion with him. He chooses to be noncompliant. He does not acknowledge the heroic efforts of the medical staff including nursing to help take care of him. I feel he lacks a certain degree of insight. I would be happy to liberalize his diet and decannulate him under the condition that he understands the risk and changes his CODE STATUS to DNR with the stipulation that it is not to change back when he decompensates. He clearly will decompensate based on multiple clinical factors and his history. He is not agreed to that drastic a plan as yet. If he remains a full code then we will need to adhere to that and provide the safest medical treatment possible. Unfortunately he has the right to be noncompliant and disregard our treatment plan. 05/02/2020-continued encouragement regarding consistency of treatment plan. (12) Hypotension Qualifiers: Hypotension type: unspecified hypotension type Qualified Code(s): I95.9 - Hypotension, unspecified Is this a current diagnosis for this admission?: Yes Plan: Present on admission. Resolved - Time Time Spent with patient: 15-24 minutes Medications reviewed and adjusted accordingly: Yes Anticipated Discharge Disposition: Unknown Anticipated Discharge Timeframe: Unknown
[2020-05-03] MEDS: PANTOPRAZOLE SODIUM 40 MG VIAL IV SCH (21:25)
[2020-05-03] MEDS: DEXTROSE 5%-NORMAL SALINE 1,000 ML IV PRN (21:25)
[2020-05-04] MEDS: HYDROMORPHONE HCL INJ/PF 2 MG/ML AMPULE IV PRN ×6 (00:27→22:32)
[2020-05-04] MEDS: NITROGLYCERIN 2% OINTMENT 1 GM PACKET TP SCH ×4 (00:28→17:46)
[2020-05-04] MEDS: PROMETHAZINE HCL INJ 25 MG/1 ML VIAL IV PRN ×5 (00:28→22:33)
[2020-05-04 06:42] LABS: ABSOLUTE BASOPHILS # (AUTO) 0.1 10^3/uL (0.0-0.2); ABSOLUTE EOSINOPHILS # (AUTO) 0.2 10^3/uL (0.0-0.6); ABSOLUTE LYMPHOCYTES (AUTO) 1.1 10^3/uL (0.5-4.7); ABSOLUTE MONOCYTES (AUTO) 1.2 10^3/uL (0.1-1.4); ABSOLUTE NEUT (AUTO) 13.4 10^3/uL (1.7-8.2); BASOPHILS % (AUTO) 0.6 % (0-2); EOSINOPHILS % (AUTO) 1.2 % (0-6); HEMATOCRIT 29.9 % (37.9-51.0); HEMOGLOBIN 9.8 g/dL (13.5-17.0); MEAN CORPUSCULAR HGB CONC 32.7 g/dL (32.0-36.0); MEAN CORPUSCULAR VOLUME 86 fl (80-97); MONOCYTES % (AUTO) 7.4 % (3-13); PLATELET COUNT 433 10^3/uL (150-450); RED BLOOD COUNT 3.49 10^6/uL (4.35-5.55); RED CELL DISTRIBUTION WIDTH 18.1 % (11.5-14.0); SEGMENTED NEUTROPHILS % (AUTO) 83.8 % (42-78); TOTAL CELLS COUNTED % (AUTO) 100 %
[2020-05-04 06:49] LABS: ALBUMIN 2.4 g/dL (3.5-5.0); ANION GAP 9 (5-19); BLOOD UREA NITROGEN 22 mg/dL (7-20); CALCIUM 8.9 mg/dL (8.4-10.2); CARBON DIOXIDE 27 mmol/L (22-30); CHLORIDE 101 mmol/L (98-107); GLUCOSE 115 mg/dL (75-110); PHOSPHORUS 4.2 mg/dL (2.5-4.5); POTASSIUM 4.4 mmol/L (3.6-5.0)
[2020-05-04] MEDS: PHOSPHORUS #1 250 MG TABLET PO SCH ×4 (08:33→21:39)
[2020-05-04] MEDS: INSULIN LISPRO 100 UNIT/ML 3 ML VIAL SUBCUT SCH ×4 (08:33→22:38)
[2020-05-04] MEDS: PANTOPRAZOLE SODIUM 40 MG VIAL IV SCH ×2 (09:14→22:32)
[2020-05-04] MEDS: FUROSEMIDE 20 MG TABLET PO SCH (09:16)
[2020-05-04] MEDS: LACTULOSE SYRUP 20 GM/30 ML UDCUP PO SCH ×2 (09:16→21:39)
[2020-05-04] MEDS: SENNOSIDES/DOCUSATE 8.6-50 MG 1 EACH TABLET PO SCH (09:16)
[2020-05-04] MEDS: THIAMINE HCL 100 MG TABLET PO SCH (09:16)
[2020-05-04] MEDS: LISINOPRIL 5 MG TABLET PO SCH ×2 (09:16→22:38)
[2020-05-04] MEDS: METOPROLOL SUCCINATE 25 MG TAB.SR.24H PO SCH (09:16)
[2020-05-04] MEDS: DEXTROSE 5%-NORMAL SALINE 1,000 ML IV PRN (12:13)
--- NOTE | 2020-05-04 13:25 | PDOC PROGRESS REPORT ---
Subjective Progress Note for:: 05/04/20 Subjective:: Patient is back to taking some diet by mouth. Food staying gauze at the trach site. He reports that he has nausea and vomiting when he eats hospital food as well as gastric discomfort with any oral intake. Reason For Visit: ACUTE HYPOXIC RESPIRATORY FAILURE, HYPOTENSION Physical Exam Vital Signs: Temp Pulse Resp BP Pulse Ox 97.6 F 99 18 127/82 H 100 05/04/20 07:56 05/04/20 07:30 05/04/20 12:57 05/04/20 07:30 05/04/20 07:30 Intake & Output 05/03/20 05/04/20 05/05/20 06:59 06:59 06:59 Intake Total 1674 1000 Output Total 5 800 Balance -351 -800 1000 Weight 52.8 kg 49.4 kg General appearance: PRESENT: no acute distress, cooperative, well-developed, other - Cuff is down and patient is speaking Head exam: PRESENT: atraumatic, normocephalic Ear exam: PRESENT: normal external ear exam. ABSENT: bleeding, drainage Mouth exam: PRESENT: moist, tongue midline Neck exam: PRESENT: tracheostomy - Tracheostomy dressing stained with what appears to be his soup. ABSENT: carotid bruit, JVD, lymphadenopathy Respiratory exam: PRESENT: rhonchi - On the right, symmetrical, unlabored, wheezes - Expiratory wheezes on the right. ABSENT: rales, tachypnea Cardiovascular exam: PRESENT: RRR, +S1, +S2. ABSENT: bradycardia, diastolic murmur, irregular rhythm, systolic murmur, tachycardia GI/Abdominal exam: PRESENT: normal bowel sounds, soft. ABSENT: distended, guarding, tenderness Rectal exam: PRESENT: other Gentrourinary exam: PRESENT: indwelling catheter Extremities exam: ABSENT: pedal edema Musculoskeletal exam: ABSENT: ambulatory Neurological exam: PRESENT: alert, awake, oriented to person, oriented to place, oriented to time, oriented to situation, CN II-XII grossly intact. ABSENT: altered Psychiatric exam: PRESENT: flat affect. ABSENT: agitated, anxious Focused psych exam: ABSENT: delusional, paranoid, restlessness Skin exam: PRESENT: dry, pallor, warm. ABSENT: rash Results Laboratory Results: 05/04/20 05:00 05/04/20 05:00 05/04/20 05/04/20 05:00 05:00 WBC 16.0 H RBC 3.49 L Hgb 9.8 L Hct 29.9 L MCV 86 MCH 28.0 MCHC 32.7 RDW 18.1 H Plt Count 433 Seg Neutrophils % 83.8 H Sodium 136.7 L Potassium 4.4 Chloride 101 Carbon Dioxide 27 Anion Gap 9 BUN 22 H Creatinine 0.89 Est GFR ( Amer) > 60 Glucose 115 H Calcium 8.9 Phosphorus 4.2 Albumin 2.4 L 04/20/20 04/23/20 04/23/20 09:00 01:55 01:55 Creatine Kinase < 20 L CK-MB (CK-2) 2.20 Troponin I < 0.012 0.082 NT-Pro-B Natriuret Pep 31283 H 04/23/20 04/23/20 04/23/20 05:58 08:22 14:50 Creatine Kinase < 20 L < 20 L CK-MB (CK-2) 2.24 Troponin I 0.066 NT-Pro-B Natriuret Pep 04/23/20 14:50 Creatine Kinase CK-MB (CK-2) 2.09 Troponin I 0.057 NT-Pro-B Natriuret Pep Impressions: Modified Barium Swallow 04/26/20 00:01 IMPRESSION: LARYNGEAL PENETRATION WITH THIN BARIUM, WITH TRACE ASPIRATION FROM RESIDUALS. PLEASE SEE SPEECH PATHOLOGIST REPORT FOR OTHER FINDINGS AND RECOMMENDATIONS. Chest X-Ray 04/30/20 00:00 IMPRESSION: Improving aeration of the lungs. Assessment and Plan - Diagnosis (1) Acute on chronic respiratory failure with hypoxia and hypercapnia Is this a current diagnosis for this admission?: Yes Plan: Likely due to healthcare associated pneumonia or aspiration pneumonia. Sputum culture growing MRSA. Continue vancomycin; Day #7. Aggressive pulmonary toileting, tracheostomy care, monitor for aspiration. 04/30/2020-reviewing records from the previous week reveals sporadic use of ventilator. Continue oxygen supplementation by trach collar to keep saturations greater than or equal to 90%. 05/01/2020-patient actually sounds worse today than yesterday. He is currently on BiPAP. He still does not appreciate the effects that his dysfunctional swallow is having on his overall health. He still believes that he can eat solid foods. Repeat chest x-ray yesterday still showed significant right lower lobe infiltrate. He is continuing to aspirate just based on clinical findings. If he still requires BiPAP I will repeat a chest x-ray tomorrow to look for significant worsening. The patient continues to request a liberal diet. At this point it is impractical and with severe risk. We will continue to discuss with the patient tomorrow of the risks of his wishes to remove the tracheostomy and advance his diet versus the constraints of the proposed treatment plan based on concrete findings. 05/02/2020-less congested today. I reminded him of the need to continue working on a strong cough to clear secretions. The next step would be to change the trach to cuffless. I will do this if he has several more days without respiratory distress. We will try and keep the cuff deflated as much as possible. 05/03/2020-large volume emesis with obvious aspiration and significant mucus production most likely the result of trial of a meal. This certainly means we will discontinue any trials of change in diet. He is able to remain on trach collar despite this episode. 05/04/2020-patient has been tolerating trach collar consistently. The cuff is deflated and the patient is able to talk. Still with rhonchi on the right. We will hold off on advancing any diet at this time. Continue to attempt to wean with a goal of D cannulating. (2) Bilateral pneumonia Qualifiers: Pneumonia type: due to unspecified organism Lung location: lower lobe of lung Qualified Code(s): J18.9 - Pneumonia, unspecified organism Is this a current diagnosis for this admission?: Yes Plan: As per #2. 04/30/2020-complete vancomycin therapy as ordered. Repeat chest x-ray to assess progress. Still with very congested breath sounds but this could all be central. 05/01/2020-still with right lower lobe infiltrate. White blood cell count is slightly better but the patient did require BiPAP therapy today. We will continue to monitor closely. We may need to repeat a sputum culture if his clinical status worsens. 05/02/2020-clinically improved. Chest x-ray still shows right lower lobe infiltrate. Breathing more comfortably today. Continue to work towards decannulation. 05/03/2020-antibiotic therapy completed. After today's episode may need to repeat chest x-ray and reassess. 05/04/2020-repeat chest x-ray today shows slight improvement. Antibiotics have been completed. White blood cell count is up to 16 from 11. We will recheck white blood cell count tomorrow. Monitor for other signs of infection including fever and chills or abrupt change in clinical condition (3) Critical illness myopathy Is this a current diagnosis for this admission?: Yes Plan: 04/21/2020-resume physical therapy 04/22/2020-due to marked infection PT today is not appropriate. Will monitor closely each day and resume physical therapy when the patient's general condition improves. 04/30/2020-reviewed physical therapy notes. Patient will need ongoing PT and OT due to the severe deconditioning from his prolonged illness. 05/01/2020-continue physical therapy and Occupational Therapy. I believe the patient was given bands for exercising his upper extremities while in bed. 05/02/2020-continue physical therapy. Continue occupational therapy. I will check with therapy as I thought there would be giving the patient exercise bands so that he can work his upper body while in bed. He did report that he was up i n the wheelchair again today. 05/03/2020-continue to encourage physical therapy. Patient has had almost 14 kg weight loss. 05/04/2020-as above. We will continue to encourage increased activity. Therapy was going to drop off exercise bands for patient to utilize while in bed. (4) Hyperglycemia due to type 2 diabetes mellitus Qualifiers: Diabetes mellitus group home insulin use: with intermediate project manager use Qualified Code(s): E11.65 - Type 2 diabetes mellitus with hyperglycemia; Z79.4 - intermediate accountant (current) use of insulin Is this a current diagnosis for this admission?: Yes Plan: 04/30/2020-continue Accu-Cheks, Lantus and sliding scale coverage. 05/01/2020-glucose control is reasonable at this time. His intake does vary. He continues to refuse PEG tube placement. This would in fact significantly improve the trajectory of his recovery. This has been suggested multiple times and he adamantly refuses each time. 05/02/2020-acceptable glucose control at this time. Will need to adjust treatment as his diet changes. 05/03/2020-continue current course (5) Leukocytosis Qualifiers: Leukocytosis type: unspecified Qualified Code(s): D72.829 - Elevated white blood cell count, unspecified Is this a current diagnosis for this admission?: Yes Plan: 04/21/2020-secondary to infection. Will monitor and that should resolve with antibiotic therapy. 04/22/2020-improving with antibiotics 04/30/2020-recheck CBC tomorrow. White blood cell count was increasing most recently. Infection would be the most likely contributing factor. 05/01/2020-white blood cell count is down to 11.5. We will continue to monitor especially in light of the increased mucus and rhonchi noted today. 05/02/2020-as noted above his white blood cell count was 11.5 yesterday. Consider rechecking in 1 or 2 days. 05/04/2020-as noted above white blood cell count went up to 16,000. Patient remains afebrile. Monitor closely for other evidence of infection. (6) Malnutrition Qualifiers: Malnutrition type: protein-calorie malnutrition Is this a current diagnosis for this admission?: Yes Plan: Due to low p.o. intake. Unfortunately patient has been having aspiration and has been refusing other modes of nutrition, patient has adamantly refused PEG tube and TPN. On 04/26/2020 patient had a modified barium swallow which and recommendation was for pured diet. Patient still at risk of aspiration. Continue feeds as tolerated, registered dietitian has been consulted. 04/30/2020-modified barium swallow performed last week again revealed pooling and aspiration. Patient refuses PEG tube. We will continue with pured diet. Patient constantly asking for regular food. Will need to review his recent course of aspiration pneumonia and discuss realistic expectations. 05/01/2020-still refusing PEG tube placement. Still high risk of aspiration. Patient is requesting advancing his diet. He may need to review the risks and benefits of advancing his diet. He did have a friend actually bringing him food from outside previously. This is temporarily stopped. Continue current diet orders at this time. 05/02/2020-with his current improvements I agreed to a single trial of chicken salad. We discussed trialing other foodstuffs based on his ability to eat the c hicken salad without marked aspiration. He refuses sherbet. He was eating ice cream previously. Consider ice cream with the addition of protein powder. 05/03/2020-considering the difficulties encountered and the patient's unwillingness to accept a PEG tube we may be forced to utilize TPN. I will discuss with the patient tomorrow. (7) Tracheostomy in place Is this a current diagnosis for this admission?: Yes Plan: Continue tracheostomy care. Aggressive pulmonary toileting. 05/01/2020-respiratory therapy reports increased mucus with deep suctioning. Currently on BiPAP. There really is no consideration for decannulation at this point due to his current status. 05/02/2020-continue to work towards decannulation 05/03/2020-continue current tracheostomy care (8) Dysphagia Qualifiers: Dysphagia type: oropharyngeal phase Qualified Code(s): R13.12 - Dysphagia, oropharyngeal phase Is this a current diagnosis for this admission?: Yes Plan: 04/21/2020-resume speech therapy 04/22/2020-due to the significant change in chest x-ray consider n.p.o. status with a nasogastric tube/Dobbhoff for tube feeding 04/30/2020- 05/01/2020-imaging studies as well as clinical presentation suggest ongoing aspi ration. The patient is in denial. 05/02/2020-controlled trials of different foodstuffs. We did initiate this during his last admission. We will need to monitor closely. 05/03/2020-it is unclear if the tracheostomy cuff was up or down during the emesis episode earlier. He does sound more congested today. It may not be feasible to continue to attempt oral nutrition at this point. (9) Medical non-compliance Is this a current diagnosis for this admission?: Yes Plan: 04/30/2020-has been requesting food that is not on his recommended diet. In addition he has been refusing vital signs earlier today as well as over the last several days. He is not a willing participant in the treatment plan at this time. 05/01/2020-I did not invite a conversation regarding liberalizing his diet and decannulation today as his clinical condition has deteriorated from yesterday. He is still pushing to liberalize his diet and he still wants his tracheostomy out. We will need to have a tiffanie discussion with him. He chooses to be noncom pliant. He does not acknowledge the heroic efforts of the medical staff including nursing to help take care of him. I feel he lacks a certain degree of insight. I would be happy to liberalize his diet and decannulate him under the condition that he understands the risk and changes his CODE STATUS to DNR with the stipulation that it is not to change back when he decompensates. He clearly will decompensate based on multiple clinical factors and his history. He is not agreed to that drastic a plan as yet. If he remains a full code then we will need to adhere to that and provide the safest medical treatment possible. Unfortunately he has the right to be noncompliant and disregard our treatment plan. 05/02/2020-continued encouragement regarding consistency of treatment plan. (10) Hypotension Qualifiers: Hypotension type: unspecified hypotension type Qualified Code(s): I95.9 - Hypotension, unspecified Is this a current diagnosis for this admission?: Yes Plan: Present on admission. Resolved (11) Bacteremia due to Enterococcus Is this a current diagnosis for this admission?: Yes Plan: Enterococcus bacteremia sensitive to penicillins and vancomycin. Continue vancomycin; Day #7. Unfortunately, patient continues to refuse repeat blood cultures. Have not been able to determine that patient has cleared his bacteremia in order to establish an EOT date. Repeat Blood cultures remain pending. 04/30/2020-vancomycin through 05/01/2020. We will obtain repeat blood cultures to ensure resolution of bacteremia. 05/01/2020-vancomycin therapy complete. Repeat blood cultures ordered but not collected yet. 05/02/2020-repeat blood cultures to ensure resolution of bacteremia unfortunately not collected as yet. 05/03/2020-blood cultures ordered. Unfortunately not collected as yet. Vanco mycin therapy completed. Bacteremia should be resolved. 05/04/2020-unfortunately blood cultures were never ordered. If there is a clinical change I will reorder. Otherwise bacteremia should be considered resolved. (12) Candiduria Is this a current diagnosis for this admission?: Yes Plan: Urine culture positive for Leah albicans. The patient does have an indwelling Varner catheter has been switched. This is likely contamination. Will monitor closely. No specific treatment at this time. Goal is to remove the Varner catheter care. 04/30/2020-consider intermittent clamping of catheter to retrain bladder. Urinary incontinence would be extremely bad for his decubitus ulcers. We will need to decide the best plan of care considering all factors. 05/02/2020-no acute intervention at this time. - Time Time Spent with patient: 15-24 minutes Medications reviewed and adjusted accordingly: Yes Anticipated Discharge Disposition: LTACH Anticipated Discharge Timeframe: when bed available
[2020-05-04] MEDS: DIPHENHYDRAMINE HCL 50 MG/ML VIAL IV PRN (13:29)
[2020-05-05] MEDS: NITROGLYCERIN 2% OINTMENT 1 GM PACKET TP SCH ×4 (00:21→17:16)
[2020-05-05] MEDS: DIPHENHYDRAMINE HCL 50 MG/ML VIAL IV PRN ×5 (00:40→22:03)
[2020-05-05] MEDS: DEXTROSE 5%-NORMAL SALINE 1,000 ML IV PRN ×2 (00:44→13:42)
--- NOTE | 2020-05-05 01:59 | RADIOLOGY REPORT (SQ) ---
EXAM DESCRIPTION: X-ray, single view the chest CLINICAL HISTORY: 60 years Male, resp failure COMPARISON: Single view of the chest April 30, 2020 FINDINGS: Lungs: Extensive parenchymal consolidation and opacification in the right lung is seen in this has worsened in the right lower lobe. However, there is improved aeration in the left lower lobe. Probable right pleural effusion. No pneumothorax. Mediastinum: Cardiac and mediastinal silhouette are unchanged. Tracheostomy tube is seen. Bones: Osseous structures are unchanged. IMPRESSION: Worsening parenchymal consolidation in the right lower lobe with probable right pleural effusion. Improved opacification and aeration in the left lower lobe.
[2020-05-05] MEDS: HYDROMORPHONE HCL INJ/PF 2 MG/ML AMPULE IV PRN ×4 (03:47→20:04)
[2020-05-05] MEDS: PROMETHAZINE HCL INJ 25 MG/1 ML VIAL IV PRN ×3 (03:47→14:44)
[2020-05-05 06:36] LABS: HEMATOCRIT 28.8 % (37.9-51.0); HEMOGLOBIN 9.4 g/dL (13.5-17.0); MEAN CORPUSCULAR HEMOGLOBIN 27.9 pg (27.0-33.4); MEAN CORPUSCULAR HGB CONC 32.6 g/dL (32.0-36.0); MEAN CORPUSCULAR VOLUME 86 fl (80-97); PLATELET COUNT 416 10^3/uL (150-450); RED BLOOD COUNT 3.36 10^6/uL (4.35-5.55); RED CELL DISTRIBUTION WIDTH 18.2 % (11.5-14.0); WHITE BLOOD COUNT 15.7 10^3/uL (4.0-10.5)
[2020-05-05 06:51] LABS: ALBUMIN 2.4 g/dL (3.5-5.0); BLOOD UREA NITROGEN 20 mg/dL (7-20); CALCIUM 8.7 mg/dL (8.4-10.2); CARBON DIOXIDE 27 mmol/L (22-30); CHLORIDE 107 mmol/L (98-107); GLUCOSE 164 mg/dL (75-110); PHOSPHORUS 3.3 mg/dL (2.5-4.5)
[2020-05-05 06:54] LABS: ANION GAP 4 (5-19)
[2020-05-05] MEDS: PHOSPHORUS #1 250 MG TABLET PO SCH ×4 (09:40→21:18)
[2020-05-05] MEDS: LACTULOSE SYRUP 20 GM/30 ML UDCUP PO SCH ×2 (09:40→21:18)
[2020-05-05] MEDS: INSULIN LISPRO 100 UNIT/ML 3 ML VIAL SUBCUT SCH ×4 (09:40→22:06)
[2020-05-05] MEDS: THIAMINE HCL 100 MG TABLET PO SCH (09:41)
[2020-05-05] MEDS: SENNOSIDES/DOCUSATE 8.6-50 MG 1 EACH TABLET PO SCH (09:41)
[2020-05-05] MEDS: PANTOPRAZOLE SODIUM 40 MG VIAL IV SCH ×2 (09:54→22:03)
[2020-05-05] MEDS: SCOPOLAMINE HYDROBROMIDE 1.5 MG PATCH.TD72 TD SCH (11:36)
[2020-05-05] MEDS: LISINOPRIL 5 MG TABLET PO SCH ×2 (11:37→22:03)
[2020-05-05] MEDS: FUROSEMIDE 20 MG TABLET PO SCH (11:37)
[2020-05-05] MEDS: METOPROLOL SUCCINATE 25 MG TAB.SR.24H PO SCH (11:37)
--- NOTE | 2020-05-05 16:50 | PDOC PROGRESS REPORT ---
Subjective Progress Note for:: 05/05/20 Subjective:: Patient has been sleeping for majority of the day. He has very flat today. Not his usual animated self. Reason For Visit: ACUTE HYPOXIC RESPIRATORY FAILURE, HYPOTENSION Physical Exam Vital Signs: Temp Pulse Resp BP Pulse Ox 98.4 F 109 H 23 H 141/86 H 94 05/05/20 14:47 05/05/20 14:47 05/05/20 14:47 05/05/20 14:47 05/05/20 14:47 Intake & Output 05/04/20 05/05/20 05/06/20 06:59 06:59 06:59 Intake Total 3169 1223 Output Total 800 1700 100 Balance -800 1469 1123 Weight 49.4 kg 49.4 kg General appearance: PRESENT: no acute distress, thin Respiratory exam: PRESENT: decreased breath sounds - Right base, rhonchi - Right side, symmetrical. ABSENT: rales, tachypnea, wheezes Cardiovascular exam: PRESENT: RRR, +S1, +S2. ABSENT: bradycardia, diastolic murmur, irregular rhythm, systolic murmur, tachycardia GI/Abdominal exam: PRESENT: normal bowel sounds, soft. ABSENT: distended, guarding, tenderness Rectal exam: PRESENT: deferred Gentrourinary exam: PRESENT: indwelling catheter Extremities exam: ABSENT: pedal edema Neurological exam: PRESENT: alert, awake, oriented to person, oriented to place, oriented to time, oriented to situation, CN II-XII grossly intact, other - Unable to talk due to BiPAP Psychiatric exam: PRESENT: flat affect. ABSENT: agitated, anxious Focused psych exam: ABSENT: delusional, paranoid, restlessness Skin exam: PRESENT: pallor Results Laboratory Results: 05/05/20 05:50 05/05/20 05:50 05/05/20 05/05/20 05:50 05:50 WBC 15.7 H RBC 3.36 L Hgb 9.4 L Hct 28.8 L MCV 86 MCH 27.9 MCHC 32.6 RDW 18.2 H Plt Count 416 Sodium 138.4 Potassium 4.0 Chloride 107 Carbon Dioxide 27 Anion Gap 4 L BUN 20 Creatinine 0.88 Est GFR ( Amer) > 60 Glucose 164 H Calcium 8.7 Phosphorus 3.3 Albumin 2.4 L 04/20/20 04/23/20 04/23/20 09:00 01:55 01:55 Creatine Kinase < 20 L CK-MB (CK-2) 2.20 Troponin I < 0.012 0.082 NT-Pro-B Natriuret Pep 56486 H 04/23/20 04/23/20 04/23/20 05:58 08:22 14:50 Creatine Kinase < 20 L < 20 L CK-MB (CK-2) 2.24 Troponin I 0.066 NT-Pro-B Natriuret Pep 04/23/20 14:50 Creatine Kinase CK-MB (CK-2) 2.09 Troponin I 0.057 NT-Pro-B Natriuret Pep Impressions: Modified Barium Swallow 04/26/20 00:01 IMPRESSION: LARYNGEAL PENETRATION WITH THIN BARIUM, WITH TRACE ASPIRATION FROM RESIDUALS. PLEASE SEE SPEECH PATHOLOGIST REPORT FOR OTHER FINDINGS AND RE COMMENDATIONS. Chest X-Ray 05/04/20 00:00 IMPRESSION: Worsening parenchymal consolidation in the right lower lobe with probable right pleural effusion. Improved opacification and aeration in the left lower lobe. Assessment and Plan - Diagnosis (1) Acute on chronic respiratory failure with hypoxia and hypercapnia Is this a current diagnosis for this admission?: Yes Plan: Likely due to healthcare associated pneumonia or aspiration pneumonia. Sputum culture growing MRSA. Continue vancomycin; Day #7. Aggressive pulmonary toileting, tracheostomy care, monitor for aspiration. 04/30/2020-reviewing records from the previous week reveals sporadic use of ventilator. Continue oxygen supplementation by trach collar to keep saturations greater than or equal to 90%. 05/01/2020-patient actually sounds worse today than yesterday. He is currently on BiPAP. He still does not appreciate the effects that his dysfunctional swallow is having on his overall health. He still believes that he can eat solid foods. Repeat chest x-ray yesterday still showed significant right lower lobe infiltrate. He is continuing to aspirate just based on clinical findings. If he still requires BiPAP I will repeat a chest x-ray tomorrow to look for significant worsening. The patient continues to request a liberal diet. At this point it is impractical and with severe risk. We will continue to discuss with the patient tomorrow of the risks of his wishes to remove the tracheostomy and advance his diet versus the constraints of the proposed treatment plan based on concrete findings. 05/02/2020-less congested today. I reminded him of the need to continue working on a strong cough to clear secretions. The next step would be to change the trach to cuffless. I will do this if he has several more days without respiratory distress. We will try and keep the cuff deflated as much as possible. 05/03/2020-large volume emesis with obvious aspiration and significant mucus production most likely the result of trial of a meal. This certainly means we will discontinue any trials of change in diet. He is able to remain on trach collar despite this episode. 05/04/2020-patient has been tolerating trach collar consistently. The cuff is deflated and the patient is able to talk. Still with rhonchi on the right. We will hold off on advancing any diet at this time. Continue to attempt to wean with a goal of Decannulating. 05/05/2020-Dr. Mendoza on the trach. Increased mucus production and suctioning requirement. Possible recurrent aspiration pneumonia. Sputum culture has been ordered. (2) Bilateral pneumonia Qualifiers: Pneumonia type: due to unspecified organism Lung location: lower lobe of lung Qualified Code(s): J18.9 - Pneumonia, unspecified organism Is this a current diagnosis for this admission?: Yes Plan: As per #2. 04/30/2020-complete vancomycin therapy as ordered. Repeat chest x-ray to assess progress. Still with very congested breath sounds but this could all be central. 05/01/2020-still with right lower lobe infiltrate. White blood cell count is slightly better but the patient did require BiPAP therapy today. We will continue to monitor closely. We may need to repeat a sputum culture if his clinical status worsens. 05/02/2020-clinically improved. Chest x-ray still shows right lower lobe infiltrate. Breathing more comfortably today. Continue to work towards decannu lation. 05/03/2020-antibiotic therapy completed. After today's episode may need to repeat chest x-ray and reassess. 05/04/2020-repeat chest x-ray today shows slight improvement. Antibiotics have been completed. White blood cell count is up to 16 from 11. We will recheck white blood cell count tomorrow. Monitor for other signs of infection including fever and chills or abrupt change in clinical condition 05/05/2020-left lung is actually clear. X-ray reveals slight increase in the right lower lobe opacity. White blood cell count did not decrease. Trying to avoid recurrent antibiotic therapy. (3) Critical illness myopathy Is this a current diagnosis for this admission?: Yes Plan: 04/21/2020-resume physical therapy 04/22/2020-due to marked infection PT today is not appropriate. Will monitor closely each day and resume physical therapy when the patient's general condition improves. 04/30/2020-reviewed physical therapy notes. Patient will need ongoing PT and OT due to the severe deconditioning from his prolonged illness. 05/01/2020-continue physical therapy and Occupational Therapy. I believe the patient was given bands for exercising his upper extremities while in bed. 05/02/2020-continue physical therapy. Continue occupational therapy. I will check with therapy as I thought there would be giving the patient exercise bands so that he can work his upper body while in bed. He did report that he was up in the wheelchair again today. 05/03/2020-continue to encourage physical therapy. Patient has had almost 14 kg weight loss. 05/04/2020-as above. We will continue to encourage increased activity. Therapy was going to drop off exercise bands for patient to utilize while in bed. 05/05/2020-no PT today. Will resume Wednesday. (4) Hyperglycemia due to type 2 diabetes mellitus Qualifiers: Diabetes mellitus superintendent terminal insulin use: with superintendent terminal use Qualified Code(s): E11.65 - Type 2 diabetes mellitus with hyperglycemia; Z79.4 - long-term (current) use of insulin Is this a current diagnosis for this admission?: Yes Plan: 04/30/2020-continue Accu-Cheks, Lantus and sliding scale coverage. 05/01/2020-glucose control is reasonable at this time. His intake does vary. He continues to refuse PEG tube placement. This would in fact significantly improve the trajectory of his recovery. This has been suggested multiple times and he adamantly refuses each time. 05/02/2020-acceptable glucose control at this time. Will need to adjust treatment as his diet changes. 05/03/2020-continue current course 05/05/2020-acceptable glucose control. No changes. (5) Leukocytosis Qualifiers: Leukocytosis type: unspecified Qualified Code(s): D72.829 - Elevated white blood cell count, unspecified Is this a current diagnosis for this admission?: Yes Plan: 04/21/2020-secondary to infection. Will monitor and that should resolve with antibiotic therapy. 04/22/2020-improving with antibiotics 04/30/2020-recheck CBC tomorrow. White blood cell count was increasing most recently. Infection would be the most likely contributing factor. 05/01/2020-white blood cell count is down to 11.5. We will continue to monitor especially in light of the increased mucus and rhonchi noted today. 05/02/2020-as noted above his white blood cell count was 11.5 yesterday. Consider rechecking in 1 or 2 days. 05/04/2020-as noted above white blood cell count went up to 16,000. Patient remains afebrile. Monitor closely for other evidence of infection. 05/05/2020-white blood cell count still slightly elevated at 15.7. Patient is afebrile. No antibiotics at this time. (6) Malnutrition Qualifiers: Malnutrition type: protein-calorie malnutrition Is this a current diagnosis for this admission?: Yes Plan: Due to low p.o. intake. Unfortunately patient has been having aspiration and has been refusing other modes of nutrition, patient has adamantly refused PEG tube and TPN. On 04/26/2020 patient had a modified barium swallow which and recommendation was for pured diet. Patient still at risk of aspiration. Continue feeds as tolerated, registered dietitian has been consulted. 04/30/2020-modified barium swallow performed last week again revealed pooling and aspiration. Patient refuses PEG tube. We will continue with pured diet. Patient constantly asking for regular food. Will need to review his recent course of aspiration pneumonia and discuss realistic expectations. 05/01/2020-still refusing PEG tube placement. Still high risk of aspiration. P atient is requesting advancing his diet. He may need to review the risks and benefits of advancing his diet. He did have a friend actually bringing him food from outside previously. This is temporarily stopped. Continue current diet orders at this time. 05/02/2020-with his current improvements I agreed to a single trial of chicken salad. We discussed trialing other foodstuffs based on his ability to eat the chicken salad without marked aspiration. He refuses sherbet. He was eating ice cream previously. Consider ice cream with the addition of protein powder. 05/03/2020-considering the difficulties encountered and the patient's unwillingness to accept a PEG tube we may be forced to utilize TPN. I will discuss with the patient tomorrow. 05/05/2020-making no progress. Need to seriously consider TPN. (7) Tracheostomy in place Is this a current diagnosis for this admission?: Yes Plan: Continue tracheostomy care. Aggressive pulmonary toileting. 05/01/2020-respiratory therapy reports increased mucus with deep suctioning. Currently on BiPAP. There really is no consideration for decannulation at this point due to his current status. 05/02/2020-continue to work towards decannulation 05/03/2020-continue current tracheostomy care 05/05/2020-increased secretions. Continue deep suctioning and tracheostomy care (8) Dysphagia Qualifiers: Dysphagia type: oropharyngeal phase Qualified Code(s): R13.12 - Dysphagia, oropharyngeal phase Is this a current diagnosis for this admission?: Yes Plan: 04/21/2020-resume speech therapy 04/22/2020-due to the significant change in chest x-ray consider n.p.o. status with a nasogastric tube/Dobbhoff for tube feeding 04/30/2020- 05/01/2020-imaging studies as well as clinical presentation suggest ongoing aspiration. The patient is in denial. 05/02/2020-controlled trials of different foodstuffs. We did initiate this during his last admission. We will need to monitor closely. 05/03/2020-it is unclear if the tracheostomy cuff was up or down during the emesis episode earlier. He does sound more congested today. It may not be feasible to continue to attempt oral nutrition at this point. 05/05/2020-continues to try and eat despite obvious aspiration. At least patient is not having food brought in at this time. (9) Medical non-compliance Is this a current diagnosis for this admission?: Yes Plan: 04/30/2020-has been requesting food that is not on his recommended diet. In addition he has been refusing vital signs earlier today as well as over the last several days. He is not a willing participant in the treatment plan at this time. 05/01/2020-I did not invite a conversation regarding liberalizing his diet and decannulation today as his clinical condition has deteriorated from yesterday. He is still pushing to liberalize his diet and he still wants his tracheostomy out. We will need to have a tiffanie discussion with him. He chooses to be noncompliant. He does not acknowledge the heroic efforts of the medical staff including nursing to help take care of him. I feel he lacks a certain degree of insight. I would be happy to liberalize his diet and decannulate him under the condition that he understands the risk and changes his CODE STATUS to DNR with the stipulation that it is not to change back when he decompensates. He clearly will decompensate based on multiple clinical factors and his history. He is not agreed to that drastic a plan as yet. If he remains a full code then we will need to adhere to that and provide the safest medical treatment possible. Unfortunately he has the right to be noncompliant and disregard our treatment plan. 05/02/2020-continued encouragement regarding consistency of treatment plan. 05/05/2020-very frustrating with regard to patient's continued refusal to accept the entire treatment plan. Aortic blood cultures today to check for infection with the elevated white blood cell count however the patient refused to allow blood cultures to be drawn. (10) Hypotension Qualifiers: Hypotension type: unspecified hypotension type Qualified Code(s): I95.9 - Hypotension, unspecified Is this a current diagnosis for this admission?: Yes Plan: Present on admission. Resolved (11) Bacteremia due to Enterococcus Is this a current diagnosis for this admission?: Yes Plan: Enterococcus bacteremia sensitive to penicillins and vancomycin. Continue vancomycin; Day #7. Unfortunately, patient continues to refuse repeat blood cultures. Have not been able to determine that patient has cleared his bacteremia in order to establish an EOT date. Repeat Blood cultures remain pending. 04/30/2020-vancomycin through 05/01/2020. We will obtain repeat blood cultures to ensure resolution of bacteremia. 05/01/2020-vancomycin therapy complete. Repeat blood cultures ordered but not collected yet. 05/02/2020-repeat blood cultures to ensure resolution of bacteremia unfortunately not collected as yet. 05/03/2020-blood cultures ordered. Unfortunately not collected as yet. Vancomycin therapy completed. Bacteremia should be resolved. 05/04/2020-unfortunately blood cultures were never ordered. If there is a clinical change I will reorder. Otherwise bacteremia should be considered resolved. (12) Candiduria Is this a current diagnosis for this admission?: Yes Plan: Urine culture positive for Leah albicans. The patient does have an indwelling Varner catheter has been switched. This is likely contamination. Will monitor closely. No specific treatment at this time. Goal is to remove the Varner catheter care. 04/30/2020-consider intermittent clamping of catheter to retrain bladder. Urinary incontinence would be extremely bad for his decubitus ulcers. We will need to decide the best plan of care considering all factors. 05/02/2020-no acute intervention at this time. - Time Time Spent with patient: 15-24 minutes Medications reviewed and adjusted accordingly: Yes Anticipated Discharge Disposition: Unknown Anticipated Discharge Timeframe: Unknown
[2020-05-05] MEDS ORDERED: METOCLOPRAMIDE HCL INJ/PF 10 MG/2 ML SDV IV ONE (17:30)
[2020-05-05] MEDS: ONDANSETRON HCL INJ/PF 4 MG/2 ML SDV IV PRN (20:04)
[2020-05-06] MEDS: NITROGLYCERIN 2% OINTMENT 1 GM PACKET TP SCH ×4 (01:00→17:48)
[2020-05-06] MEDS: ONDANSETRON HCL INJ/PF 4 MG/2 ML SDV IV PRN ×5 (02:04→22:49)
[2020-05-06] MEDS: HYDROMORPHONE HCL INJ/PF 2 MG/ML AMPULE IV PRN ×6 (02:04→21:38)
[2020-05-06] MEDS: DEXTROSE 5%-NORMAL SALINE 1,000 ML IV PRN ×2 (02:05→18:56)
[2020-05-06] MEDS: DIPHENHYDRAMINE HCL 50 MG/ML VIAL IV PRN ×5 (02:22→22:49)
[2020-05-06 08:03] LABS: ABSOLUTE BASOPHILS # (AUTO) 0.1 10^3/uL (0.0-0.2); ABSOLUTE EOSINOPHILS # (AUTO) 0.3 10^3/uL (0.0-0.6); ABSOLUTE LYMPHOCYTES (AUTO) 1.3 10^3/uL (0.5-4.7); ABSOLUTE MONOCYTES (AUTO) 1.3 10^3/uL (0.1-1.4); BASOPHILS % (AUTO) 0.5 % (0-2); EOSINOPHILS % (AUTO) 2.2 % (0-6); HEMOGLOBIN 8.9 g/dL (13.5-17.0); LYMPHOCYTES % (AUTO) 11.1 % (13-45); MEAN CORPUSCULAR HEMOGLOBIN 28.3 pg (27.0-33.4); MEAN CORPUSCULAR HGB CONC 32.9 g/dL (32.0-36.0); MEAN CORPUSCULAR VOLUME 86 fl (80-97); MONOCYTES % (AUTO) 10.8 % (3-13); PLATELET COUNT 399 10^3/uL (150-450); RED BLOOD COUNT 3.14 10^6/uL (4.35-5.55); RED CELL DISTRIBUTION WIDTH 17.8 % (11.5-14.0); SEGMENTED NEUTROPHILS % (AUTO) 75.4 % (42-78); TOTAL CELLS COUNTED % (AUTO) 100 %; WHITE BLOOD COUNT 11.9 10^3/uL (4.0-10.5)
--- NOTE | 2020-05-06 09:11 | RADIOLOGY REPORT (SQ) ---
EXAM DESCRIPTION: CHEST SINGLE VIEW IMAGES COMPLETED DATE/TIME: 05/06/2020 8:44 am REASON FOR STUDY: Pneumonia COMPARISON: 05/04/2020 EXAM PARAMETERS: NUMBER OF VIEWS: One view. TECHNIQUE: Single frontal radiographic view of the chest acquired. RADIATION DOSE: NA LIMITATIONS: None. FINDINGS: LUNGS AND PLEURA: Mildly worsened patchy right basilar airspace disease. Mild additional hazy left basilar opacities. Likely mild right-sided pleural effusion. No pneumothorax. MEDIASTINUM AND HILAR STRUCTURES: Stable. HEART AND VASCULAR STRUCTURES: Stable. BONES: No acute findings. HARDWARE: Tracheostomy tube tip overlies midline at thoracic inlet. Partially visualized cervical fu ketan hardware. OTHER: Residual contrast throughout the colon. IMPRESSION: Mildly worsened patchy right basilar airspace disease compatible with pneumonia. Stable mild associated right-sided pleural effusion. TECHNICAL DOCUMENTATION: JOB ID: [id number] 2010 [employer]- All Rights Reserved Reading location - IP/workstation name: [email or web address]
[2020-05-06] MEDS: PANTOPRAZOLE SODIUM 40 MG VIAL IV SCH ×2 (10:19→21:40)
[2020-05-06] MEDS: THIAMINE HCL 100 MG TABLET PO SCH (10:19)
[2020-05-06] MEDS: FUROSEMIDE 20 MG TABLET PO SCH (10:19)
[2020-05-06] MEDS: LISINOPRIL 5 MG TABLET PO SCH ×2 (10:19→21:40)
[2020-05-06] MEDS: LACTULOSE SYRUP 20 GM/30 ML UDCUP PO SCH ×2 (10:20→21:41)
[2020-05-06] MEDS: METOPROLOL SUCCINATE 25 MG TAB.SR.24H PO SCH (10:20)
[2020-05-06] MEDS: PHOSPHORUS #1 250 MG TABLET PO SCH ×4 (10:20→21:42)
[2020-05-06] MEDS: SENNOSIDES/DOCUSATE 8.6-50 MG 1 EACH TABLET PO SCH (10:20)
[2020-05-06] MEDS: INSULIN LISPRO 100 UNIT/ML 3 ML VIAL SUBCUT SCH ×4 (10:28→21:42)
--- NOTE | 2020-05-06 20:51 | PDOC PROGRESS REPORT ---
Subjective Progress Note for:: 05/06/20 Subjective:: The patient still has significant mucus without a very congested cough as well as congestion even when he tries to speak. Reason For Visit: ACUTE HYPOXIC RESPIRATORY FAILURE, HYPOTENSION Physical Exam Vital Signs: Temp Pulse Resp BP Pulse Ox 98.3 F 89 20 118/71 100 05/06/20 16:33 05/06/20 16:33 05/06/20 16:33 05/06/20 16:33 05/06/20 16:33 Intake & Output 05/05/20 05/06/20 05/07/20 06:59 06:59 06:59 Intake Total 3169 2452 2334 Output Total 4153 593 0918 Balance 1469 1994 34 Weight 49.4 kg 49.4 kg 49.4 kg General appearance: PRESENT: cooperative, mild distress, thin Head exam: PRESENT: atraumatic, normocephalic Eye exam: PRESENT: conjunctiva pale. ABSENT: scleral icterus Ear exam: PRESENT: normal external ear exam. ABSENT: bleeding, drainage Mouth exam: PRESENT: moist, tongue midline Neck exam: PRESENT: tracheostomy Respiratory exam: PRESENT: prolonged expiratory phas, rhonchi - Right side, symmetrical, other - Extremely congested cough. ABSENT: tachypnea, wheezes Cardiovascular exam: PRESENT: RRR, +S1, +S2. ABSENT: bradycardia, diastolic murmur, irregular rhythm, systolic murmur, tachycardia GI/Abdominal exam: PRESENT: normal bowel sounds, soft, tenderness - Slight tenderness with palpation in the epigastric area. ABSENT: distended, guarding Rectal exam: PRESENT: deferred Gentrourinary exam: PRESENT: indwelling catheter Extremities exam: ABSENT: pedal edema Musculoskeletal exam: PRESENT: other - Significantly decreased muscle mass. ABSENT: ambulatory Neurological exam: PRESENT: alert, awake, oriented to person, oriented to place, oriented to time, oriented to situation, CN II-XII grossly intact Psychiatric exam: PRESENT: flat affect. ABSENT: agitated, anxious Focused psych exam: ABSENT: delusional, paranoid, restlessness Skin exam: PRESENT: dry, pallor, warm. ABSENT: rash Results Laboratory Results: 05/06/20 05:50 05/05/20 05:50 05/06/20 05:50 WBC 11.9 H RBC 3.14 L Hgb 8.9 L Hct 27.0 L MCV 86 MCH 28.3 MCHC 32.9 RDW 17.8 H Plt Count 399 Seg Neutrophils % 75.4 04/20/20 04/23/20 04/23/20 09:00 01:55 01:55 Creatine Kinase < 20 L CK-MB (CK-2) 2.20 Troponin I < 0.012 0.082 NT-Pro-B Natriuret Pep 71185 H 04/23/20 04/23/20 04/23/20 05:58 08:22 14:50 Creatine Kinase < 20 L < 20 L CK-MB (CK-2) 2.24 Troponin I 0.066 NT-Pro-B Natriuret Pep 04/23/20 14:50 Creatine Kinase CK-MB (CK-2) 2.09 Troponin I 0.057 NT-Pro-B Natriuret Pep Impressions: Modified Barium Swallow 04/26/20 00:01 IMPRESSION: LARYNGEAL PENETRATION WITH THIN BARIUM, WITH TRACE ASPIRATION FROM RESIDUALS. PLEASE SEE SPEECH PATHOLOGIST REPORT FOR OTHER FINDINGS AND RECOMMENDATIONS. Chest X-Ray 05/06/20 07:00 IMPRESSION: Mildly worsened patchy right basilar airspace disease compatible with pneumonia. Stable mild associated right-sided pleural effusion. Assessment and Plan - Diagnosis (1) Acute on chronic respiratory failure with hypoxia and hypercapnia Is this a current diagnosis for this admission?: Yes Plan: Likely due to healthcare associated pneumonia or aspiration pneumonia. Sputum culture growing MRSA. Continue vancomycin; Day #7. Aggressive pulmonary toileting, tracheostomy care, monitor for aspiration. 04/30/2020-reviewing records from the previous week reveals sporadic use of ventilator. Continue oxygen supplementation by trach collar to keep saturations greater than or equal to 90%. 05/01/2020-patient actually sounds worse today than yesterday. He is currently on BiPAP. He still does not appreciate the effects that his dysfunctional swallow is having on his overall health. He still believes that he can eat solid foods. Repeat chest x-ray yesterday still showed significant right lower lobe infiltrate. He is continuing to aspirate just based on clinical findings. If he still requires BiPAP I will repeat a chest x-ray tomorrow to look for significant worsening. The patient continues to request a liberal diet. At this point it is impractical and with severe risk. We will continue to discuss with the patient tomorrow of the risks of his wishes to remove the tracheostomy and advance his diet versus the constraints of the proposed treatment plan based on concrete findings. 05/02/2020-less congested today. I reminded him of the need to continue working on a strong cough to clear secretions. The next step would be to change the trach to cuffless. I will do this if he has several more days without respiratory distress. We will try and keep the cuff deflated as much as possible. 05/03/2020-large volume emesis with obvious aspiration and significant mucus production most likely the result of trial of a meal. This certainly means we will discontinue any trials of change in diet. He is able to remain on trach collar despite this episode. 05/04/2020-patient has been tolerating trach collar consistently. The cuff is deflated and the patient is able to talk. Still with rhonchi on the right. We will hold off on advancing any diet at this time. Continue to attempt to wean with a goal of Decannulating. 05/05/2020-Dr. Mendoza on the trach. Increased mucus production and suctioning requirement. Possible recurrent aspiration pneumonia. Sputum culture has been ordered. 05/06/2020-tracheostomy dressing and strap stained with mucus. Increased secretions and slightly worsened chest x-ray concerning the right lower lobe. White blood cell count is going down. There is a tracheal suction specimen for Gram stain and culture. Currently Gram stain reveals gram-positive cocci in clusters with gram-negative bacilli. The patient seems to be needing more respiratory support today as opposed to trach collar previously. (2) Bilateral pneumonia Qualifiers: Pneumonia type: due to unspecified organism Lung location: lower lobe of lung Qualified Code(s): J18.9 - Pneumonia, unspecified organism Is this a current diagnosis for this admission?: Yes Plan: As per #2. 04/30/2020-complete vancomycin therapy as ordered. Repeat chest x-ray to assess progress. Still with very congested breath sounds but this could all be central. 05/01/2020-still with right lower lobe infiltrate. White blood cell count is slightly better but the patient did require BiPAP therapy today. We will continue to monitor closely. We may need to repeat a sputum culture if his clinical status worsens. 05/02/2020-clinically improved. Chest x-ray still shows right lower lobe infiltrate. Breathing more comfortably today. Continue to work towards decan nulation. 05/03/2020-antibiotic therapy completed. After today's episode may need to repeat chest x-ray and reassess. 05/04/2020-repeat chest x-ray today shows slight improvement. Antibiotics have been completed. White blood cell count is up to 16 from 11. We will recheck white blood cell count tomorrow. Monitor for other signs of infection including fever and chills or abrupt change in clinical condition 05/05/2020-left lung is actually clear. X-ray reveals slight increase in the right lower lobe opacity. White blood cell count did not decrease. Trying to avoid recurrent antibiotic therapy. 05/06/2020-right lung x-ray appears worse. Clinical exam reveals rhonchi and extremely congested cough that is unchanged from yesterday. Sputum specimen pending. Will need to decide colonization versus acute infection. With his white count improving without antibiotics colonization may be more likely. He continues to aspirate which significantly complicates his respiratory status. (3) Critical illness myopathy Is this a current diagnosis for this admission?: Yes Plan: 04/21/2020-resume physical therapy 04/22/2020-due to marked infection PT today is not appropriate. Will monitor closely each day and resume physical therapy when the patient's general condition improves. 04/30/2020-reviewed physical therapy notes. Patient will need ongoing PT and OT due to the severe deconditioning from his prolonged illness. 05/01/2020-continue physical therapy and Occupational Therapy. I believe the patient was given bands for exercising his upper extremities while in bed. 05/02/2020-continue physical therapy. Continue occupational therapy. I will check with therapy as I thought there would be giving the patient exercise bands so that he can work his upper body while in bed. He did report that he was up in the wheelchair again today. 05/03/2020-continue to encourage physical therapy. Patient has had almost 14 kg weight loss. 05/04/2020-as above. We will continue to encourage increased activity. Therapy was going to drop off exercise bands for patient to utilize while in bed. 05/05/2020-no PT today. Will resume Wednesday. 05/06/2020-continue physical therapy at this time (4) Hyperglycemia due to type 2 diabetes mellitus Qualifiers: Diabetes mellitus assisted insulin use: with director long term care use Qualified Code(s): E11.65 - Type 2 diabetes mellitus with hyperglycemia; Z79.4 - custodial (current) use of insulin Is this a current diagnosis for this admission?: Yes Plan: 04/30/2020-continue Accu-Cheks, Lantus and sliding scale coverage. 05/01/2020-glucose control is reasonable at this time. His intake does vary. He continues to refuse PEG tube placement. This would in fact significantly improve the trajectory of his recovery. This has been suggested multiple times and he adamantly refuses each time. 05/02/2020-acceptable glucose control at this time. Will need to adjust treatment as his diet changes. 05/03/2020-continue current course 05/05/2020-acceptable glucose control. No changes. (5) Leukocytosis Qualifiers: Leukocytosis type: unspecified Qualified Code(s): D72.829 - Elevated white blood cell count, unspecified Is this a current diagnosis for this admission?: Yes Plan: 04/21/2020-secondary to infection. Will monitor and that should resolve with antibiotic therapy. 04/22/2020-improving with antibiotics 04/30/2020-recheck CBC tomorrow. White blood cell count was increasing most recently. Infection would be the most likely contributing factor. 05/01/2020-white blood cell count is down to 11.5. We will continue to monitor especially in light of the increased mucus and rhonchi noted today. 05/02/2020-as noted above his white blood cell count was 11.5 yesterday. Consider rechecking in 1 or 2 days. 05/04/2020-as noted above white blood cell count went up to 16,000. Patient remains afebrile. Monitor closely for other evidence of infection. 05/05/2020-white blood cell count still slightly elevated at 15.7. Patient is afebrile. No antibiotics at this time. 05/06/2020-white blood cell count actually improved today. Is down to 11.9. Continue to monitor. (6) Malnutrition Qualifiers: Malnutrition type: protein-calorie malnutrition Is this a current diagnosis for this admission?: Yes Plan: Due to low p.o. intake. Unfortunately patient has been having aspiration and has been refusing other modes of nutrition, patient has adamantly refused PEG tube and TPN. On 04/26/2020 patient had a modified barium swallow which and recommendation was for pured diet. Patient still at risk of aspiration. Continue feeds as tolerated, registered dietitian has been consulted. 04/30/2020-modified barium swallow performed last week again revealed pooling and aspiration. Patient refuses PEG tube. We will continue with pured diet. Patient constantly asking for regular food. Will need to review his recent course of aspiration pneumonia and discuss realistic expectations. 05/01/2020-still refusing PEG tube placement. Still high risk of aspiration. Patient is requesting advancing his diet. He may need to review the risks and benefits of advancing his diet. He did have a friend actually bringing him food from outside previously. This is temporarily stopped. Continue current diet orders at this time. 05/02/2020-with his current improvements I agreed to a single trial of chicken salad. We discussed trialing other foodstuffs based on his ability to eat the chicken salad without marked aspiration. He refuses sherbet. He was eating ice cream previously. Consider ice cream with the addition of protein powder. 05/03/2020-considering the difficulties encountered and the patient's unwillingness to accept a PEG tube we may be forced to utilize TPN. I will discuss with the patient tomorrow. 05/05/2020-making no progress. Need to seriously consider TPN. 05/06/2020-because of his aspiration and unwillingness to accept PEG tube the patient's malnutrition continues. At this point I am going to start TPN in an effort to improve his recovery chances. Unfortunately he continues to avoid the interventions that would be most helpful for him. (7) Tracheostomy in place Is this a current diagnosis for this admission?: Yes Plan: Continue tracheostomy care. Aggressive pulmonary toileting. 05/01/2020-respiratory therapy reports increased mucus with deep suctioning. Currently on BiPAP. There really is no consideration for decannulation at this point due to his current status. 05/02/2020-continue to work towards decannulation 05/03/2020-continue current tracheostomy care 05/05/2020-increased secretions. Continue deep suctioning and tracheostomy care 05/06/2020-continue trach care. Inner cannula is showing evidence of the increased secretions. Because of his inability to accept PEG tube and insistence on eating he has significantly delaying the possibility of decannulation. (8) Dysphagia Qualifiers: Dysphagia type: oropharyngeal phase Qualified Code(s): R13.12 - Dysphagia, oropharyngeal phase Is this a current diagnosis for this admission?: Yes Plan: 04/21/2020-resume speech therapy 04/22/2020-due to the significant change in chest x-ray consider n.p.o. status with a nasogastric tube/Dobbhoff for tube feeding 04/30/2020- 05/01/2020-imaging studies as well as clinical presentation suggest ongoing aspiration. The patient is in denial. 05/02/2020-controlled trials of different foodstuffs. We did initiate this during his last admission. We will need to monitor closely. 05/03/2020-it is unclear if the tracheostomy cuff was up or down during the emesis episode earlier. He does sound more congested today. It may not be feasible to continue to attempt oral nutrition at this point. 05/05/2020-continues to try and eat despite obvious aspiration. At least patient is not having food brought in at this time. 05/06/2020-I am hoping that with TPN the patient will josiah enough strength to develop a safe swallow. (9) Medical non-compliance Is this a current diagnosis for this admission?: Yes Plan: 04/30/2020-has been requesting food that is not on his recommended diet. In addition he has been refusing vital signs earlier today as well as over the last several days. He is not a willing participant in the treatment plan at this time. 05/01/2020-I did not invite a conversation regarding liberalizing his diet and decannulation today as his clinical condition has deteriorated from yesterday. He is still pushing to liberalize his diet and he still wants his tracheostomy out. We will need to have a tiffanie discussion with him. He chooses to be noncompliant. He does not acknowledge the heroic efforts of the medical staff including nursing to help take care of him. I feel he lacks a certain degree of insight. I would be happy to liberalize his diet and decannulate him under the condition that he understands the risk and changes his CODE STATUS to DNR with the stipulation that it is not to change back when he decompensates. He clearly will decompensate based on multiple clinical factors and his history. He is not agreed to that drastic a plan as yet. If he remains a full code then we will need to adhere to that and provide the safest medical treatment possible. Unfortunately he has the right to be noncompliant and disregard our treatment plan. 05/02/2020-continued encouragement regarding consistency of treatment plan. 05/05/2020-very frustrating with regard to patient's continued refusal to accept the entire treatment plan. Aortic blood cultures today to check for infection with the elevated white blood cell count however the patient refused to allow blood cultures to be drawn. 05/06/2020-we will start TPN as an answer to his refusal for certain interventions that I feel would be most helpful. (10) Hypotension Qualifiers: Hypotension type: unspecified hypotension type Qualified Code(s): I95.9 - Hypotension, unspecified Is this a current diagnosis for this admission?: Yes Plan: Present on admission. Resolved (11) Bacteremia due to Enterococcus Is this a current diagnosis for this admission?: Yes Plan: Enterococcus bacteremia sensitive to penicillins and vancomycin. Continue vancomycin; Day #7. Unfortunately, patient continues to refuse repeat blood cultures. Have not been able to determine that patient has cleared his bacteremia in order to establish an EOT date. Repeat Blood cultures remain pending. 04/30/2020-vancomycin through 05/01/2020. We will obtain repeat blood cultures to ensure resolution of bacteremia. 05/01/2020-vancomycin therapy complete. Repeat blood cultures ordered but not collected yet. 05/02/2020-repeat blood cultures to ensure resolution of bacteremia unfortunately not collected as yet. 05/03/2020-blood cultures ordered. Unfortunately not collected as yet. Vancomycin therapy completed. Bacteremia should be resolved. 05/04/2020-unfortunately blood cultures were never ordered. If there is a clinical change I will reorder. Otherwise bacteremia should be considered resolved. (12) Candiduria Is this a current diagnosis for this admission?: Yes Plan: Urine culture positive for Leah albicans. The patient does have an indwelling Varner catheter has been switched. This is likely contamination. Will monitor closely. No specific treatment at this time. Goal is to remove the Varner catheter care. 04/30/2020-consider intermittent clamping of catheter to retrain bladder. Urinary incontinence would be extremely bad for his decubitus ulcers. We will n eed to decide the best plan of care considering all factors. 05/02/2020-no acute intervention at this time. - Time Time Spent with patient: 15-24 minutes Medications reviewed and adjusted accordingly: Yes Anticipated Discharge Disposition: Unknown Anticipated Discharge Timeframe: Unknown
[2020-05-07] MEDS: NITROGLYCERIN 2% OINTMENT 1 GM PACKET TP SCH ×4 (00:28→17:27)
[2020-05-07] MEDS: HYDROMORPHONE HCL INJ/PF 2 MG/ML AMPULE IV PRN ×3 (00:41→10:32)
[2020-05-07] MEDS: DIPHENHYDRAMINE HCL 50 MG/ML VIAL IV PRN ×6 (02:46→22:43)
[2020-05-07] MEDS: ONDANSETRON HCL INJ/PF 4 MG/2 ML SDV IV PRN ×6 (02:46→22:43)
[2020-05-07] MEDS: DEXTROSE 5%-NORMAL SALINE 1,000 ML IV PRN ×2 (06:52→23:18)
[2020-05-07] MEDS: INSULIN LISPRO 100 UNIT/ML 3 ML VIAL SUBCUT SCH ×4 (08:21→21:39)
[2020-05-07] MEDS: PHOSPHORUS #1 250 MG TABLET PO SCH ×4 (08:23→21:39)
[2020-05-07] MEDS: SENNOSIDES/DOCUSATE 8.6-50 MG 1 EACH TABLET PO SCH (10:22)
[2020-05-07] MEDS: LACTULOSE SYRUP 20 GM/30 ML UDCUP PO SCH ×2 (10:22→21:39)
[2020-05-07] MEDS: THIAMINE HCL 100 MG TABLET PO SCH (10:31)
[2020-05-07] MEDS: FUROSEMIDE 20 MG TABLET PO SCH (10:31)
[2020-05-07] MEDS: METOPROLOL SUCCINATE 25 MG TAB.SR.24H PO SCH (10:31)
[2020-05-07] MEDS: PANTOPRAZOLE SODIUM 40 MG VIAL IV SCH ×2 (10:32→21:38)
[2020-05-07] MEDS: LISINOPRIL 5 MG TABLET PO SCH ×2 (10:32→21:38)
--- NOTE | 2020-05-07 11:56 | RADIOLOGY REPORT (SQ) ---
EXAM DESCRIPTION: PICC INSERTION IMAGES COMPLETED DATE/TIME: 05/07/2020 11:29 am REASON FOR STUDY: TPN J96.21 ACUTE AND CHRONIC RESPIRATORY FAILURE WITH HYPOXIA COMPARISON: None. FLUOROSCOPY TIME: 23 seconds 1 images saved to PACS. TECHNIQUE: Fluoroscopic and ultrasound guided PICC placement. LIMITATIONS: None. PROCEDURE: After written consent and assessment were obtained, the patient was brought into the fluo roscopy room and placed supine on the table. Ultrasound evaluation of potential access sites were per formed. After successfully identifying a patent left upper extremity brachiocephalic vein, the left a rm was prepped and draped in a sterile fashion along with the ultrasound probe. The entry site was an esthetized with 1% lidocaine. A 21 gauge 7 cm needle was advanced through the skin and into the brach iocephalic vein under live ultrasound guidance. An ultrasound image was saved to PACS confirming acc ess site. A .018 guide wire was then inserted through the needle and into the venous system. The nee dle was then removed and an 11 blade scalpel was used to make a 1cm skin incision. A 5 fr peel-away sheath was advanced over the wire and into the venous system. A measurement was then made using the e xisting wire and live fluoroscopic guidance. The wire was then removed and trimmed. The PICC was adva nced through the peel-away sheath and into the venous system. The peel-away sheath was removed and th e catheter was adhered to the patients arm with a stat lock. The catheter was then aspirated and flus hed and a sterile bandage was placed over the access site. A fluoroscopic spot image was saved to [facility] confirming the catheter tip within the SVC. IMPRESSION: SUCCESSFUL PLACEMENT OF A 5 FR DUAL LUMEN 47 CM PICC IN THE LEFT BRACHIOCEPHALIC VEIN. COMMENT: Patient medication list reviewed: Yes- Quality ID# [id number]:Eligible professional attests to doc umenting in the medical record they obtained, updated, or reviewed the patient's current medications. . Quality ID 145: Final reports for procedures using fluoroscopy that document radiation exposure lyn oswaldo, or exposure time and number of fluorographic images (if radiation exposure indices are not avail able) Quality ID #76: The patient was prepped and draped using maximum sterile barrier technique including cap, mask, sterile gown, sterile gloves, a large sterile sheet, hand hygiene, and 2% Chlorhexidine fo r cutaneous antisepsis. When ultrasound is used, sterile ultrasound techniques are followed requiring sterile gel and sterile probes. TECHNICAL DOCUMENTATION: JOB ID: [id number] 2010 [employer]- All Rights Reserved rev-12/03 Reading location - IP/workstation name: [email or web address]
[2020-05-07 12:37] LABS: ABSOLUTE BASOPHILS # (AUTO) 0.1 10^3/uL (0.0-0.2); ABSOLUTE EOSINOPHILS # (AUTO) 0.2 10^3/uL (0.0-0.6); ABSOLUTE NEUT (AUTO) 7.5 10^3/uL (1.7-8.2); BASOPHILS % (AUTO) 0.8 % (0-2); EOSINOPHILS % (AUTO) 1.8 % (0-6); HEMATOCRIT 25.7 % (37.9-51.0); HEMOGLOBIN 8.5 g/dL (13.5-17.0); LYMPHOCYTES % (AUTO) 10.4 % (13-45); MEAN CORPUSCULAR HEMOGLOBIN 28.2 pg (27.0-33.4); MEAN CORPUSCULAR HGB CONC 33.2 g/dL (32.0-36.0); MEAN CORPUSCULAR VOLUME 85 fl (80-97); MONOCYTES % (AUTO) 9.9 % (3-13); PLATELET COUNT 346 10^3/uL (150-450); RED BLOOD COUNT 3.02 10^6/uL (4.35-5.55); RED CELL DISTRIBUTION WIDTH 17.1 % (11.5-14.0); SEGMENTED NEUTROPHILS % (AUTO) 77.1 % (42-78); TOTAL CELLS COUNTED % (AUTO) 100 %; WHITE BLOOD COUNT 9.7 10^3/uL (4.0-10.5)
[2020-05-07 13:47] LABS: ALBUMIN 2.2 g/dL (3.5-5.0); ALKALINE PHOSPHATASE 78 U/L (38-126); ASPARTATE AMINO TRANSFERASE 9 U/L (17-59); BILIRUBIN,DIRECT 0.3 mg/dL (0.0-0.4); BILIRUBIN,TOTAL 0.5 mg/dL (0.2-1.3); BLOOD UREA NITROGEN 15 mg/dL (7-20); CALCIUM 8.5 mg/dL (8.4-10.2); GLUCOSE 90 mg/dL (75-110); PHOSPHORUS 3.6 mg/dL (2.5-4.5); POTASSIUM 3.8 mmol/L (3.6-5.0); TOTAL PROTEIN 5.4 g/dL (6.3-8.2); TRIGLYCERIDES 89 mg/dL (<150)
[2020-05-07 13:51] LABS: CARBON DIOXIDE 29 mmol/L (22-30); CHLORIDE 105 mmol/L (98-107)
[2020-05-07 13:53] LABS: ANION GAP 4 (5-19)
[2020-05-07 13:57] LABS: DIRECT LDL 56 mg/dL (<100)
[2020-05-07] MEDS ORDERED: NORMAL SALINE 10 ML SDV (AFTER EACH USE) IV PRN (14:00)
[2020-05-07] MEDS: OXYCODONE HCL IR 5 MG TABLET PO PRN ×3 (14:17→22:43)
[2020-05-07] MEDS ORDERED: DEXTROSE 10%-WATER 1,000 ML IV PRN (15:38)
[2020-05-07] MEDS ORDERED: PHARMACY COMMUNICATION ORDER MC NR (15:45)
--- NOTE | 2020-05-07 19:23 | PDOC PROGRESS REPORT ---
Subjective Progress Note for:: 05/07/20 Subjective:: States that he is overall feeling somewhat better today. Continues to have lots of secretions via trach. Reason For Visit: ACUTE HYPOXIC RESPIRATORY FAILURE, HYPOTENSION Physical Exam Vital Signs: Temp Pulse Resp BP Pulse Ox 98.5 F 99 18 142/82 H 97 05/07/20 16:00 05/07/20 16:00 05/07/20 16:00 05/07/20 16:00 05/07/20 16:00 Intake & Output 05/06/20 05/07/20 05/08/20 06:59 06:59 06:59 Intake Total 2452 3229 2300 Output Total 457 2430 Balance 9229 728 7345 Weight 49.4 kg 50.8 kg General appearance: PRESENT: no acute distress, cooperative Eye exam: PRESENT: conjunctiva pale Mouth exam: PRESENT: moist Throat exam: ABSENT: post pharyngeal erythema Neck exam: PRESENT: tracheostomy. ABSENT: JVD Respiratory exam: PRESENT: rhonchi - throughout, likely transmitted upper airway sounds, unlabored Cardiovascular exam: PRESENT: RRR GI/Abdominal exam: PRESENT: normal bowel sounds, soft. ABSENT: tenderness Extremities exam: PRESENT: pedal edema, other - LUE PICC Neurological exam: PRESENT: alert, awake Psychiatric exam: PRESENT: appropriate affect Skin exam: PRESENT: pallor Results Laboratory Results: 05/07/20 12:04 05/07/20 12:04 05/07/20 05/07/20 05/07/20 12:04 12:04 12:04 WBC 9.7 RBC 3.02 L Hgb 8.5 L Hct 25.7 L MCV 85 MCH 28.2 MCHC 33.2 RDW 17.1 H Plt Count 346 Seg Neutrophils % 77.1 Sodium 138.0 Potassium 3.8 Chloride 105 Carbon Dioxide 29 Anion Gap 4 L BUN 15 Creatinine 0.78 Est GFR ( Amer) > 60 Glucose 90 Lactic Acid 0.7 Calcium 8.5 Phosphorus 3.6 Magnesium 1.6 Total Bilirubin 0.5 AST 9 L Alkaline Phosphatase 78 Total Protein 5.4 L Albumin 2.2 L Prealbumin 6.0 L Triglycerides 89 Cholesterol 119.50 LDL Cholesterol Direct 56 VLDL Cholesterol 18.0 HDL Cholesterol 37 L 04/20/20 04/23/20 04/23/20 09:00 01:55 01:55 Creatine Kinase < 20 L CK-MB (CK-2) 2.20 Troponin I < 0.012 0.082 NT-Pro-B Natriuret Pep 81250 H 04/23/20 04/23/20 04/23/20 05:58 08:22 14:50 Creatine Kinase < 20 L < 20 L CK-MB (CK-2) 2.24 Troponin I 0.066 NT-Pro-B Natriuret Pep 04/23/20 14:50 Creatine Kinase CK-MB (CK-2) 2.09 Troponin I 0.057 NT-Pro-B Natriuret Pep Impressions: Modified Barium Swallow 04/26/20 00:01 IMPRESSION: LARYNGEAL PENETRATION WITH THIN BARIUM, WITH TRACE ASPIRATION FROM RESIDUALS. PLEASE SEE SPEECH PATHOLOGIST REPORT FOR OTHER FINDINGS AND RECOMMENDATIONS. Chest X-Ray 05/06/20 07:00 IMPRESSION: Mildly worsened patchy right basilar airspace disease compatible with pneumonia. Stable mild associated right-sided pleural effusion. PICC Line Insertion 05/07/20 00:00 IMPRESSION: SUCCESSFUL PLACEMENT OF A 5 FR DUAL LUMEN 47 CM PICC IN THE LEFT BRACHIOCEPHALIC VEIN. 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: 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: with long wall shear operator use Qualified Code(s): E11.65 - Type 2 diabetes mellitus with hyperglycemia; Z79.4 - snf (current) use of insulin Is this a current diagnosis for this admission?: Yes (6) Leukocytosis Qualifiers: Leukocytosis type: unspecified Qualified Code(s): D72.829 - Elevated white blood cell count, unspecified Is this a current diagnosis for this admission?: Yes (7) Malnutrition Qualifiers: Malnutrition type: protein-calorie malnutrition Is this a current diagnosis for this admission?: Yes (8) Medical non-compliance Is this a current diagnosis for this admission?: Yes (9) Sepsis associated hypotension Is this a current diagnosis for this admission?: Yes (10) Tracheostomy in place Is this a current diagnosis for this admission?: Yes (11) Critical illness myopathy Is this a current diagnosis for this admission?: Yes (12) HCAP (healthcare-associated pneumonia) Is this a current diagnosis for this admission?: Yes - Plan Summary Summary: Enterococcus Bacteremia: Enterococcus bacteremia sensitive to penicillins and vancomycin. Present on admission. Completed Vancomycin therapy x7 days. Patient repeatedly declined to allow repeat BCx to be obtained after the initial BCx were drawn. BCx were finally repeated on 05/07/2020 (results pending). Acute on chronic respiratory failure with hypoxia and hypercapnia: Likely due to aspiration pneumonia. Completed treatment. Resolved, but this will continue to be a problem as long as he continues to continue to eat. He is a high aspiration risk but he is unwilling to stop eating by mouth and refuses a PEG tube. Critical illness myopathy: he will need ongoing PT and OT due to the severe deconditioning from his prolonged illness and prolonged hospitalizations. Hyperglycemia due to type 2 diabetes mellitus: glucose control is reasonable. His intake does vary. He continues to refuse PEG tube placement. This would in fact significantly improve the trajectory of his recovery. This has been suggested multiple times and he adamantly refuses each time. Will need to adjust treatment as his diet changes. Leukocytosis: resolved. Was likely due to infection and improved with antibiotics. Severe Protein Calorie Malnutrition: due to poor PO intake. Unfortunately patient has been having aspiration and has been refusing other modes of nutrition, patient has adamantly refused PEG tube. PICC placed on 05/07 and TPN initiated. On 04/26/2020 patient had a modified barium swallow which and recommendation was for pured diet with aspiration precautions. Tracheostomy in place: Continue tracheostomy care. Aggressive pulmonary toileting. Inner cannula is showing evidence of the increased secretions. Because of his insistence on eating PO, he has significantly delaying the possibility of decannulation. Medical non-adherence: he has been requesting food that is not on his recommended diet. He is, at times, a willing participant in the treatment plan but, at other times, lacks insight and has poor judgment. He remains a FULL CODE and does not wish to change his code status, despite ongoing dysphagia, oral intake and high risk for future aspiration episodes. Unfortunately he has the right to be noncompliant and disregard our treatment plan and recommendations. Hypotension: Present on admission. Due to infection. Resolved. Candiduria: Urine culture positive for Leah albicans. The patient does have an indwelling Varner catheter which has been switched. Chronic Urinary Retention: exchange Varner catheter every 4 weeks to prevent CAUT I. Anemia of Chronic Disease: hemoglobin has been 7-8 since January 2020. Add on iron studies. No evidence of blood loss. - Time Time Spent with patient: 35 or more minutes Anticipated Discharge Disposition: [facility] Anticipated Discharge Timeframe: within 48 hours
[2020-05-07 19:43] LABS: ABSOLUTE RETICS # 0.026 10^6/uL (0.028-0.122); RETICULOCYTE COUNT (AUTO) 0.86 % (0.66-2.85)
[2020-05-07 21:01] LABS: FOLATE 6.55 ng/mL (>2.76)
[2020-05-07 21:05] LABS: IRON(TIBC) < 10.1 ug/dL (49-181)
[2020-05-07] MEDS: NORMAL SALINE 10 ML SDV (SCHEDULED) IV SCH (21:39)
[2020-05-08] MEDS: OXYCODONE HCL IR 5 MG TABLET PO PRN ×4 (03:24→21:21)
[2020-05-08] MEDS: DIPHENHYDRAMINE HCL 50 MG/ML VIAL IV PRN ×4 (03:25→21:19)
[2020-05-08] MEDS: ONDANSETRON HCL INJ/PF 4 MG/2 ML SDV IV PRN ×3 (03:25→21:19)
[2020-05-08] MEDS: NITROGLYCERIN 2% OINTMENT 1 GM PACKET TP SCH ×5 (05:10→23:36)
[2020-05-08] MEDS: INSULIN LISPRO 100 UNIT/ML 3 ML VIAL SUBCUT SCH ×2 (09:51→12:26)
[2020-05-08] MEDS: PHOSPHORUS #1 250 MG TABLET PO SCH ×4 (09:54→21:20)
[2020-05-08] MEDS: LACTULOSE SYRUP 20 GM/30 ML UDCUP PO SCH ×2 (09:54→21:20)
[2020-05-08] MEDS: FUROSEMIDE 20 MG TABLET PO SCH (09:55)
[2020-05-08] MEDS: SENNOSIDES/DOCUSATE 8.6-50 MG 1 EACH TABLET PO SCH (09:55)
[2020-05-08] MEDS: PANTOPRAZOLE SODIUM 40 MG VIAL IV SCH (10:08)
[2020-05-08] MEDS: LISINOPRIL 5 MG TABLET PO SCH ×2 (10:09→21:19)
[2020-05-08] MEDS: METOPROLOL SUCCINATE 25 MG TAB.SR.24H PO SCH (10:09)
[2020-05-08] MEDS: THIAMINE HCL 100 MG TABLET PO SCH (10:09)
[2020-05-08] MEDS: NORMAL SALINE 10 ML SDV (SCHEDULED) IV SCH ×2 (10:11→21:20)
[2020-05-08] MEDS: SCOPOLAMINE HYDROBROMIDE 1.5 MG PATCH.TD72 TD SCH (10:19)
[2020-05-08 15:17] LABS: ALKALINE PHOSPHATASE 76 U/L (38-126); ANION GAP 7 (5-19); ASPARTATE AMINO TRANSFERASE 8 U/L (17-59); BILIRUBIN,DIRECT 0.3 mg/dL (0.0-0.4); BILIRUBIN,TOTAL 0.3 mg/dL (0.2-1.3); BLOOD UREA NITROGEN 10 mg/dL (7-20); CALCIUM 7.7 mg/dL (8.4-10.2); CARBON DIOXIDE 26 mmol/L (22-30); CHLORIDE 106 mmol/L (98-107); GLUCOSE 298 mg/dL (75-110); PHOSPHORUS 3.2 mg/dL (2.5-4.5); POTASSIUM 3.4 mmol/L (3.6-5.0); TOTAL PROTEIN 5.2 g/dL (6.3-8.2)
[2020-05-08 15:18] LABS: PROTHROMBIN TIME 15.4 SEC (11.4-15.4)
[2020-05-08 15:24] LABS: PREALBUMIN 5.5 mg/dL (17.6-36.0)
[2020-05-08] MEDS ORDERED: AMINO ACIDS 5 %/DEXTROSE 20 % 1,000 ML IV PRN (17:00)
[2020-05-08] MEDS ORDERED: AMPICILLIN SOD INJ 2 GM VIAL IV SCH (17:15)
--- NOTE | 2020-05-08 17:17 | PDOC PROGRESS REPORT ---
Subjective Progress Note for:: 05/08/20 Subjective:: NAEO. He feels well. Denies any specific concerns. No fevers/chills. Reason For Visit: ACUTE HYPOXIC RESPIRATORY FAILURE, HYPOTENSION Physical Exam Vital Signs: Temp Pulse Resp BP Pulse Ox 97.6 F 86 18 132/76 H 90 L 05/08/20 10:00 05/08/20 14:00 05/08/20 08:40 05/08/20 08:40 05/08/20 08:40 Intake & Output 05/07/20 05/08/20 05/09/20 06:59 06:59 06:59 Intake Total 3229 3300 Output Total 2430 1965 Balance 799 1335 Weight 50.8 kg 51.2 kg General appearance: PRESENT: no acute distress, cooperative Eye exam: ABSENT: scleral icterus Mouth exam: PRESENT: moist Throat exam: ABSENT: post pharyngeal erythema Neck exam: PRESENT: tracheostomy Respiratory exam: PRESENT: clear to auscultation yousif Cardiovascular exam: PRESENT: RRR GI/Abdominal exam: PRESENT: normal bowel sounds, soft. ABSENT: tenderness Gentrourinary exam: PRESENT: indwelling catheter Neurological exam: PRESENT: alert, awake Psychiatric exam: PRESENT: flat affect Skin exam: ABSENT: rash Results Laboratory Results: 05/07/20 12:04 05/08/20 14:38 05/07/20 05/07/20 05/08/20 12:04 12:04 14:38 Retic Count (auto) 0.86 Sodium 139.0 Potassium 3.4 L Chloride 106 Carbon Dioxide 26 Anion Gap 7 BUN 10 Creatinine 0.75 Est GFR ( Amer) > 60 Glucose 298 H Calcium 7.7 L Phosphorus 3.2 Iron < 10.1 L TIBC 163 L Ferritin 475.00 H Total Bilirubin 0.3 AST 8 L Alkaline Phosphatase 76 Total Protein 5.2 L Albumin 2.0 L Prealbumin 5.5 L Vitamin B12 860.0 Folate 6.55 05/07/20 12:04 Blood Blood Culture (PCR) - Final Enterococcus Species Staphylococcus Aureus 04/20/20 04/23/20 04/23/20 09:00 01:55 01:55 Creatine Kinase < 20 L CK-MB (CK-2) 2.20 Troponin I < 0.012 0.082 NT-Pro-B Natriuret Pep 77911 H 04/23/20 04/23/20 04/23/20 05:58 08:22 14:50 Creatine Kinase < 20 L < 20 L CK-MB (CK-2) 2.24 Troponin I 0.066 NT-Pro-B Natriuret Pep 04/23/20 14:50 Creatine Kinase CK-MB (CK-2) 2.09 Troponin I 0.057 NT-Pro-B Natriuret Pep Impressions: Modified Barium Swallow 04/26/20 00:01 IMPRESSION: LARYNGEAL PENETRATION WITH THIN BARIUM, WITH TRACE ASPIRATION FROM RESIDUALS. PLEASE SEE SPEECH PATHOLOGIST REPORT FOR OTHER FINDINGS AND RECOMMENDATIONS. Chest X-Ray 05/06/20 07:00 IMPRESSION: Mildly worsened patchy right basilar airspace disease compatible with pneumonia. Stable mild associated right-sided pleural effusion. PICC Line Insertion 05/07/20 00:00 IMPRESSION: SUCCESSFUL PLACEMENT OF A 5 FR DUAL LUMEN 47 CM PICC IN THE LEFT BRACHIOCEPHALIC VEIN. 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: 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: with detention use Qualified Code(s): E11.65 - Type 2 diabetes mellitus with hyperglycemia; Z79.4 - penitentiary (current) use of insulin Is this a current diagnosis for this admission?: Yes (6) Leukocytosis Qualifiers: Leukocytosis type: unspecified Qualified Code(s): D72.829 - Elevated white blood cell count, unspecified Is this a current diagnosis for this admission?: Yes (7) Malnutrition Qualifiers: Malnutrition type: protein-calorie malnutrition Is this a current diagnosis for this admission?: Yes (8) Medical non-compliance Is this a current diagnosis for this admission?: Yes (9) Sepsis associated hypotension Is this a current diagnosis for this admission?: Yes (10) Tracheostomy in place Is this a current diagnosis for this admission?: Yes (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 He was treated with Vancomycin IV x7 days. Patient repeatedly declined to allow repeat BCx to be obtained after the initial BCx were drawn. BCx were finally repeated on 05/07/2020, and 1 out of 2 BCx is positive for both enterococcus and staph aureus. The two cultures on 05/07 were each drawn from a different line (one from a PICC line which was placed on 05/07 and the other from a femoral line which was removed on 05/07) but it's unclear which culture is from which line. We may have to remove PICC line placed on 05/07 and, if he has ongoing bacteremia, he will need a TTE to rule out endocarditis. ID consult requested. Start ampicillin/ceftriaxone for treatment (he has a penicillin allergy listed but is not sure what the reaction was - if any - and has received several rounds of cephalosporins with no evidence of allergic reaction, so I do not believe that he has a true anaphylactic-type allergy to penicillins, but will certainly monitor closely for penicillin allergy with antibiotic infusion). Acute on chronic respiratory failure with hypoxia and hypercapnia: due to aspiration pneumonia. Completed treatment. Resolved, but this will continue to be a problem as long as he continues to eat. He is a high aspiration risk but he is unwilling to stop eating by mouth and refuses a PEG tube. Severe Protein Calorie Malnutrition: due to poor PO intake. Unfortunately patient has been having aspiration and has been refusing other modes of nutrition. On 04/26/2020 patient had a modified barium swallow which and recommendation was for pured diet with aspiration precautions. PICC placed on 05/07 and TPN initiated. Tracheostomy in place: Continue tracheostomy care. Aggressive pulmonary toileting. Inner cannula is showing evidence of the increased secretions. Because of his insistence on eating PO, he has significantly delaying the possibility of decannulation. Hyperglycemia due to type 2 diabetes mellitus: glucose control is reasonable. His intake does vary. He continues to refuse PEG tube placement. This would in fact significantly improve the trajectory of his recovery. This has been suggested multiple times and he adamantly refuses each time. Will need to adjust treatment as his diet changes. Leukocytosis: resolved. Was likely due to infection and improved with antibiotics. Hypotension: Present on admission. Due to infection. Resolved. Candiduria: Urine culture positive for Leah albicans. The patient does have an indwelling Varner catheter which has been exchanged this admission. Chronic Urinary Retention: exchange Varner catheter every 4 weeks to prevent CAUTI. Anemia of Chronic Disease: hemoglobin has been 7-8 since January 2020. Ferritin elevated (not iron deficiency). He has no evidence of active blood loss. Critical illness myopathy: he will need ongoing PT and OT due to the severe deconditioning from his prolonged illness and prolonged hospitalizations. Medical non-adherence: he has been requesting food that is not on his recommended diet. He is, at times, a willing participant in the treatment plan but, at other times, lacks insight and has poor judgment. He remains a FULL CODE and does not wish to change his code status, despite ongoing dysphagia, oral intake and high risk for future aspiration episodes. Dispo: has been referred to several LTAC facilities - Time Time Spent with patient: 35 or more minutes Anticipated Discharge Disposition: [facility] Anticipated Discharge Timeframe: within 72 hours
[2020-05-08] MEDS ORDERED: INSULIN REG, HUMAN 100 UNIT/ML 3 ML VIAL SUBCUT SCH (18:00)
[2020-05-08] MEDS ORDERED: CEFTRIAXONE 2 GM/D5W RTU 2 GM/50 ML RTUPB IV SCH (18:00)
[2020-05-08] MEDS: INSULIN REG, HUMAN 100 UNIT/ML 3 ML VIAL (PYX) SUBCUT SCH ×2 (18:19→23:35)
[2020-05-08] MEDS: AMPICILLIN SODIUM 2 GM in NORMAL SALINE 100 ML IV SCH ×2 (20:12→23:38)
[2020-05-09] MEDS: ONDANSETRON HCL INJ/PF 4 MG/2 ML SDV IV PRN ×4 (02:39→20:45)
[2020-05-09] MEDS: OXYCODONE HCL IR 5 MG TABLET PO PRN ×3 (02:39→13:29)
[2020-05-09] MEDS: DIPHENHYDRAMINE HCL 50 MG/ML VIAL IV PRN ×5 (02:39→22:21)
[2020-05-09] MEDS: DEXTROSE 5%-NORMAL SALINE 1,000 ML IV PRN ×2 (03:30→16:53)
[2020-05-09] MEDS: AMPICILLIN SODIUM 2 GM in NORMAL SALINE 100 ML IV SCH ×5 (03:30→20:07)
[2020-05-09] MEDS: INSULIN REG, HUMAN 100 UNIT/ML 3 ML VIAL (PYX) SUBCUT SCH ×3 (07:39→18:14)
[2020-05-09] MEDS: NITROGLYCERIN 2% OINTMENT 1 GM PACKET TP SCH ×3 (07:40→18:41)
[2020-05-09] MEDS: THIAMINE HCL 100 MG TABLET PO SCH (09:23)
[2020-05-09] MEDS: FUROSEMIDE 20 MG TABLET PO SCH (09:23)
[2020-05-09] MEDS: LISINOPRIL 5 MG TABLET PO SCH ×2 (09:23→22:02)
[2020-05-09] MEDS: METOPROLOL SUCCINATE 25 MG TAB.SR.24H PO SCH (09:23)
[2020-05-09] MEDS: PHOSPHORUS #1 250 MG TABLET PO SCH ×4 (09:48→22:02)
[2020-05-09] MEDS: SENNOSIDES/DOCUSATE 8.6-50 MG 1 EACH TABLET PO SCH (09:49)
[2020-05-09] MEDS: LACTULOSE SYRUP 20 GM/30 ML UDCUP PO SCH ×2 (09:49→22:01)
[2020-05-09] MEDS: NORMAL SALINE 10 ML SDV (SCHEDULED) IV SCH ×2 (09:49→22:27)
[2020-05-09] MEDS ORDERED: FAT EMULSIONS 250 ML IV SCH (10:00)
--- NOTE | 2020-05-09 14:13 | Progress Note ---
Provider Note Provider Note: [facility] - Telephone/Remote consultation note Asked by Pharmacy to review patient's chart. Patient not seen or examined. Mr. Sena is a 60-year-old man who has a past medical hsitory including type 2 DM, hypertension, CHF, narcotic dependence, CKD and a recent prolonged hospitalization for acute respiratory failure that devleoped due to COVID-19 pneumonia, which ultimately required tracheostomy placement and discharge to a residential facility for continued rehabilitation. [facility] returned to [facility] on 04/30/20 for evaluation of shortness of breath and hypoxia. On 04/20/20 he had tachycardia and was hypothermic. He was also hypotensive, and a right femoral line was placed for improved IV access. Blood cultures drawn on admission 04/20/20 were obtained from the R hand and from the R femoral line that was placed. One bottle in each set (peripheral and line) grew Enterococcus faecalis in one bottle. The isolate was susceptile to penicillin and ampicillin, but he was treated with IV vancomycin, in light of a reported penicillin allergy, for approximately 10 days (given a dose on 04/20, again from 04/22-04/30). During his hospitalization, the patient was noted to have an episode of emesis and some risk for aspiration. He has had a modified barrium swallow study that showed laryngeal penetration with trace aspiration from residuals. His CXR was repeated on 05/06 and showed increased opacification in the right lung base. He has remained afebrile, on 6-10 L O2 over the duration of his hospitalization. He had a tracheal aspirate on 05/05/20 that was sent, which showed growth of Leah albicans, Stenotrophomonas maltophilia, and MSSA. The patient refused repeat blood cultures until 05/07/20, at which time a PICC line was placed, and two sets were obtained from the PICC line. The blood draws from the PICC line also has growth: From one set GPCs in clusters are seen on Gram stain. From both bottles of the other set are Enterococcus species (vancomycin resistance gene detected) and presumptive MSSA; further information is pending. Ampicillin IV 2 g q4h was initiated, after review of his chart raised doubt that he had a true IgE mediated penicillin allergy, along with IV Rocephin 2 grams. Impression/Recommendations Enterococcus bacteremia - possible recurrent Enterococcal bacteremia - This potentially represents a recurrence of the previous Enterococcal faecalis bacteremia, but right not it is not possible to definitively say this. The i dentification and susceptibilites for the organism are pending. The presence of vancomycin resistance for the new isolate could be acquired in the course of the prior treatment. - If this is indeed a recurrence, it raises the question of a persistent focus of infection and re-seeding or failure to clear the bloodstream. - I do not know if the right femoral line has already been removed but, if not, it should be removed. - Would get TTE. - Agree with current antibiotics. Would give Rocephin to 2 grams q 12h. If the patient has enterococcal endocarditis, ampicillin plus Rocephin at 2 grams q 12h is an effective alternative regimen to the traditional ampicillin plus gentamicin. Depending on whether or not recurrence of E faecalis bacteremia is unexplained and endocarditis are likely, Rocephin could be continued at the 2 g q12h dose or changed if this higher dose is not required. - The previous E faecalis isolate was susceptible to ampicillin. This remains the case for most vancomycin-resistant E faecalis. Follow culture results for identification of the Enterococcus species and susceptibility results. If the patient becomes hemodynamically unstable or toxic before identification /susceptibilites return, daptomycin can be used at approximately 8-10 mg/kg daily in place of the ampicillin. MSSA bacteremia in the setting of a PICC line - Source unclear: infected line vs bacteremia secondary to pneumonia with MSSA. Isolation of organisms from tracheal aspirate (like any non-sterile site) has to be taken into context, and clinically - WBC count has been stable, no new fever - but he has required an increased amount of oxygen from 6L to 10 L in the past 2 days and has had increased RLL infiltrate on CXR. Leah in tracheal aspirate is usually a colonizer. Stenotrophomonas maltophilia can also be a colonizer and, in the setting of other obviously invasive pathogens, targeting therapy to include it is not necessarily warranted as long as the patient is improving with treatment aimed at the MSSA and other interventions to reduce aspiration risk and/or optimize volume status. - The PICC line should be removed. It is not recommended to attempt salvaging a line when there is Staph aureus bacteremia due to the risk for failure and relapse. - Would avoid placing a long term care administrator line until blood cultures are known to be negative for at least 48h - Recommend TTE - Can continue Rocephin for now. - Duration of therapy should be, at a minimum, 2 weeks from date of negative blood cultures and removal of PICC line, assuming that no endocarditis is present or metastatic foci of infection. If such is present, duration of treatment should be longer. Thom Huynh MD [facility] Infectious Diseases pager [phone]
[2020-05-09] MEDS: PROMETHAZINE HCL INJ 25 MG/1 ML VIAL IV PRN (16:53)
[2020-05-09] MEDS: MORPHINE SULFATE 10 MG/ML INJ IV PRN ×2 (16:53→20:46)
--- NOTE | 2020-05-09 17:30 | PDOC PROGRESS REPORT ---
Subjective Progress Note for:: 05/09/20 Subjective:: He is very upset today because we are asking him to allow us to draw labs, blood cultures and attempt to get new PIV so we can remove his PICC line. He has repeatedly refused these interventions and has started refusing IV medications as well (including IV antibiotics). Reason For Visit: ACUTE HYPOXIC RESPIRATORY FAILURE, HYPOTENSION Physical Exam Vital Signs: Temp Pulse Resp BP Pulse Ox 97.6 F 93 16 141/78 H 92 05/09/20 09:03 05/09/20 14:00 05/09/20 09:00 05/09/20 09:00 05/09/20 09:00 Intake & Output 05/08/20 05/09/20 05/10/20 06:59 06:59 06:59 Intake Total 3300 1440 1350 Output Total 1965 265 Balance 1335 1175 1350 Weight 51.2 kg 53.9 kg General appearance: PRESENT: no acute distress Eye exam: PRESENT: conjunctiva pale Mouth exam: PRESENT: moist Teeth exam: PRESENT: poor dentation Neck exam: PRESENT: tracheostomy - with purulent sputum production Respiratory exam: PRESENT: unlabored Cardiovascular exam: PRESENT: RRR GI/Abdominal exam: PRESENT: normal bowel sounds, soft. ABSENT: tenderness Gentrourinary exam: PRESENT: indwelling catheter Extremities exam: PRESENT: +1 edema Neurological exam: PRESENT: alert, awake, oriented to person, oriented to place, oriented to time, oriented to situation Psychiatric exam: PRESENT: flat affect Skin exam: PRESENT: pallor. ABSENT: rash, urticaria Results Laboratory Results: 05/07/20 12:04 05/08/20 14:38 05/07/20 12:04 Blood Blood Culture (PCR) - Final Enterococcus Species Staphylococcus Aureus 05/05/20 08:40 Tracheal Aspirate Sputum Culture - Final Staphylococcus Aureus Stenotrophomonas Maltophilia C.albicans/C.dubliniensis Normal Kathie Absent 04/20/20 04/23/20 04/23/20 09:00 01:55 01:55 Creatine Kinase < 20 L CK-MB (CK-2) 2.20 Troponin I < 0.012 0.082 NT-Pro-B Natriuret Pep 35025 H 04/23/20 04/23/20 04/23/20 05:58 08:22 14:50 Creatine Kinase < 20 L < 20 L CK-MB (CK-2) 2.24 Troponin I 0.066 NT-Pro-B Natriuret Pep 04/23/20 14:50 Creatine Kinase CK-MB (CK-2) 2.09 Troponin I 0.057 NT-Pro-B Natriuret Pep Impressions: Modified Barium Swallow 04/26/20 00:01 IMPRESSION: LARYNGEAL PENETRATION WITH THIN BARIUM, WITH TRACE ASPIRATION FROM RESIDUALS. PLEASE SEE SPEECH PATHOLOGIST REPORT FOR OTHER FINDINGS AND RECOMM ENDATIONS. Chest X-Ray 05/06/20 07:00 IMPRESSION: Mildly worsened patchy right basilar airspace disease compatible with pneumonia. Stable mild associated right-sided pleural effusion. PICC Line Insertion 05/07/20 00:00 IMPRESSION: SUCCESSFUL PLACEMENT OF A 5 FR DUAL LUMEN 47 CM PICC IN THE LEFT BRACHIOCEPHALIC VEIN. 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: Diabetes mellitus jail insulin use: with jail use Qualified Code(s): E11.65 - Type 2 diabetes mellitus with hyperglycemia; Z79.4 - roasterman (current) use of insulin Is this a current diagnosis for this admission?: Yes (6) Leukocytosis Qualifiers: Leukocytosis type: unspecified Qualified Code(s): D72.829 - Elevated white blood cell count, unspecified Is this a current diagnosis for this admission?: Yes (7) Malnutrition Qualifiers: Malnutrition type: protein-calorie malnutrition Is this a current diagnosis for this admission?: Yes (8) Medical non-compliance Is this a current diagnosis for this admission?: Yes (9) Sepsis associated hypotension Is this a current diagnosis for this admission?: Yes (10) Tracheostomy in place Is this a current diagnosis for this admission?: Yes (11) Critical illness myopathy Is this a current diagnosis for this admission?: Yes (12) HCAP (healthcare-associated pneumonia) Is this a current diagnosis for this admission?: Yes (13) MSSA bacteremia Is this a current diagnosis for this admission?: Yes - Plan Summary Summary: Mr. Stalin Sena is a 60-year-old man with HTN, HLD, DM2, CHF and recent prolonged hospitalization for acute respiratory failure secondary to COVID-19 pneumonia s/p tracheostomy placement and discharge to a longterm facility for continued rehabilitation. He returned to [facility] on 04/20/20 SOB, and was found to have hypoxemia, tachycardia, hypothermia and hypotension. A right femoral line was urgently placed for IV access. Enterococcus Bacteremia (present on admission) CLABSI and MSSA Bacteremia (diagnosed 05/07/2020) Blood cultures drawn on admission were obtained from the R hand and from the R femoral line; one bottle in each set (peripheral and central line) grew Enterococcus faecalis susceptible to penicillin and ampicillin. He was treated with IV vancomycin (in light of a reported penicillin allergy) for approximately 10 days (04/20-04/30). The patient refused repeat blood cultures until 05/07/20, at which time a PICC line was placed. Two sets of blood cultures were obtained - one set from the PICC line and one set from the R femoral line. After obtaining BCx, the R femoral line was removed on 05/07/2020. Both of these sets of BCx fro m 05/07 grew bacteria. One set grew GPCs in clusters. The other set grew VRE and presumptive MSSA. Therefore, on 05/08/2020, he was started on treatment with ampicillin and vancomycin (review of his chart raised doubt that he had a true IgE mediated penicillin allergy, as he had previously received several courses of cephalosporins). The patient has since been refusing attempts at placing PIV access in order to be able to remove his PICC line and he also refused to allow repeat BCx on 05/08. He finally allowed repeat BCx to be drawn from the PICC on 05/09. ID was consulted on 05/09 for further recommendations, which include: * Enterococcus bacteremia * This potentially represents a recurrence of the previous Enterococcal faecalis bacteremia, but right now it is not possible to definitively say this. The identification and susceptibilities for the organism are pending. The presence of vancomycin resistance for the new isolate could be acquired in the course of the prior treatment. If this is indeed a recurrence, it raises the question of a persistent focus of infection and re-seeding or failure to clear the bloodstream. * obtain TTE * continue ceftriaxone and ampicillin (ampicillin + Rocephin is an effective alternative regimen to the traditional ampicillin + gentamicin) * Depending on whether or not recurrence of E faecalis bacteremia is unexplained and endocarditis is likely, Rocephin could be continued at the 2 g q12h dose or changed if this higher dose is not required. * The previous E faecalis isolate was susceptible to ampicillin. This remains the case for most vancomycin-resistant E faecalis. Follow culture results for identification of the Enterococcus species and susceptibility results. If the patient becomes hemodynamically unstable or toxic before identificat ion/susceptibilities return, daptomycin can be used at approximately 8-10 mg/kg daily in place of the ampicillin. * MSSA bacteremia in the setting of a PICC line * Source unclear: infected line vs bacteremia secondary to pneumonia (aspiration vs tracheitis) * Isolation of organisms from tracheal aspirate (like any non-sterile site) has to be taken into context, and clinically - WBC count has been stable, no new fever - but he has required an increased amount of oxygen from 6L to 10 L in the past 2 days and has had increased RLL infiltrate on CXR. Leah in tracheal aspirate is usually a colonizer. Stenotrophomonas maltophilia can also be a colonizer and, in the setting of other obviously invasive pathogens, targeting therapy to include it is not necessarily warranted as long as the patient is improving with treatment aimed at the MSSA and other interventions to reduce aspiration risk and/or optimize volume status. * The PICC line should be removed. It is not recommended to attempt s alvaging a line when there is Staph aureus bacteremia due to the risk for failure and relapse. * Would avoid placing a manager terminal line until blood cultures are known to be negative for at least 48 hours. * obtain TTE * continue Rocephin * Duration of therapy should be, at a minimum, 2 weeks from date of negative blood cultures and removal of PICC line, assuming that no endocarditis is present or metastatic foci of infection. If such is present, duration of treatment should be longer. Acute on chronic respiratory failure with hypoxia and hypercapnia: he had an increase in WBC on 05/04- and there was concern for possible aspiration event vs tracheitis vs HAP. CXR was repeated on 05/06 and showed increased opacification in the right lung base. He has remained afebrile, on 6-10 L O2 over the duration of his hospitalization. He had a tracheal aspirate on 05/05/20 which showed growth of Leah albicans, Stenotrophomonas maltophilia, and MSSA. He is currently on antibiotics and WBC has normalized. He is a high aspiration risk but he is unwilling to stop eating by mouth and refuses a PEG tube. Severe Protein Calorie Malnutrition: due to poor PO intake. Unfortunately patient has been having aspiration events and also refusing other modes of nutrition. On 04/26/2020 patient had a modified barium swallow and recommendation was for pured diet with aspiration precautions. PICC placed on 05/07 and TPN was briefly initiated until his BCx resulted, and TPN was thus discontinued (due to ongoing bacteremia). Tracheostomy in place: Continue tracheostomy care. Aggressive pulmonary toileting. Inner cannula is showing evidence of the increased secretions. Because of his insistence on eating PO, he has significantly delaying the possibility of decannulation. Hyperglycemia due to type 2 diabetes mellitus: glucose control is reasonable. His intake does vary. He continues to refuse PEG tube placement. This would in fact significantly improve the trajectory of his recovery. This has been suggested multiple times and he adamantly refuses each time. Will need to adjust treatment as his diet changes. Candiduria: Urine culture positive for Leah albicans. The patient does have an indwelling Varner catheter which has been exchanged this admission. Chronic Urinary Retention: exchange Varner catheter every 4 weeks to prevent CAUTI. Anemia of Chronic Disease: hemoglobin has been 7-8 since January 2020. Ferritin elevated (not iron deficiency). He has no evidence of active blood loss. Critical illness myopathy: he will need ongoing PT and OT due to the severe deconditioning from his prolonged illness and prolonged hospitalizations. Medical non-adherence: he has been requesting food that is not on his recommended diet. He is, at times, a willing participant in the treatment plan but, at other times, lacks insight and has poor judgment. He remains a FULL CODE and does not wish to change his code status, despite ongoing dysphagia, oral intake and high risk for future aspiration episodes. We discussed at length today the risk of morbidity and mortality due to bacteremia, the importance of antibiotics, the importance of removing his PICC line and allowing us to place PIVs, etc. He is bargaining and stating that he will accept certain medications and medical interventions only if he can get IV opioids for treatment of his chronic MSK pain. We agreed that I would change his oral oxycodone dosage to an equivalent IV morphine dosage, but that he can no longer decline these medical interventions and he is agreeable at this time. Discussed with RN. - Time Time Spent with patient: 35 or more minutes Anticipated Discharge Disposition: Intermediate Care Facility Anticipated Discharge Timeframe: within 72 hours
[2020-05-09] MEDS: CEFTRIAXONE 2 GM/D5W RTU 2 GM/50 ML RTUPB IV SCH (18:35)
[2020-05-10] MEDS: INSULIN REG, HUMAN 100 UNIT/ML 3 ML VIAL (PYX) SUBCUT SCH ×4 (00:11→18:15)
[2020-05-10] MEDS: NITROGLYCERIN 2% OINTMENT 1 GM PACKET TP SCH ×4 (00:12→17:58)
[2020-05-10] MEDS: AMPICILLIN SODIUM 2 GM in NORMAL SALINE 100 ML IV SCH ×6 (00:21→20:45)
[2020-05-10] MEDS: MORPHINE SULFATE 10 MG/ML INJ IV PRN ×6 (00:52→21:48)
[2020-05-10] MEDS: ONDANSETRON HCL INJ/PF 4 MG/2 ML SDV IV PRN ×5 (00:53→17:57)
[2020-05-10] MEDS: DIPHENHYDRAMINE HCL 50 MG/ML VIAL IV PRN ×6 (01:59→21:49)
[2020-05-10] MEDS: CEFTRIAXONE 2 GM/D5W RTU 2 GM/50 ML RTUPB IV SCH ×2 (05:30→18:31)
[2020-05-10] MEDS: PHOSPHORUS #1 250 MG TABLET PO SCH ×4 (08:29→21:29)
[2020-05-10] MEDS: LACTULOSE SYRUP 20 GM/30 ML UDCUP PO SCH ×2 (09:20→21:28)
[2020-05-10] MEDS: SENNOSIDES/DOCUSATE 8.6-50 MG 1 EACH TABLET PO SCH (09:21)
[2020-05-10] MEDS: THIAMINE HCL 100 MG TABLET PO SCH (09:52)
[2020-05-10] MEDS: NORMAL SALINE 10 ML SDV (SCHEDULED) IV SCH ×2 (09:52→21:31)
[2020-05-10] MEDS: METOPROLOL SUCCINATE 25 MG TAB.SR.24H PO SCH (09:52)
[2020-05-10] MEDS: ENOXAPARIN SODIUM INJ 40 MG/0.4 ML DISP.SYRIN SUBCUT SCH (09:52)
[2020-05-10] MEDS: LISINOPRIL 5 MG TABLET PO SCH ×2 (09:52→21:29)
--- NOTE | 2020-05-10 09:52 | PDOC PROGRESS REPORT ---
Subjective Progress Note for:: 05/10/20 Subjective:: 05/10/2020-patient is comfortable in the bed communicating well. Discussed the need for TPN at this time. Patient wants to eat. I tried to explain to him he is a very high risk for aspiration pneumonia. Patient does not want to TPN at this time. He requested me to leave the room. Reason For Visit: ACUTE HYPOXIC RESPIRATORY FAILURE, HYPOTENSION Physical Exam Vital Signs: Temp Pulse Resp BP Pulse Ox 97.8 F 87 19 147/80 H 99 05/10/20 07:42 05/10/20 07:42 05/10/20 08:00 05/10/20 07:42 05/10/20 08:00 Intake & Output 05/09/20 05/10/20 05/11/20 06:59 06:59 06:59 Intake Total 1440 2550 Output Total 265 2550 Balance 1175 0 Weight 53.9 kg 52 kg General appearance: PRESENT: no acute distress, cooperative Eye exam: PRESENT: conjunctiva pale, PERRLA Mouth exam: PRESENT: moist, tongue midline Neck exam: PRESENT: other - Trach in place.. ABSENT: carotid bruit, JVD, lymphadenopathy, thyromegaly Respiratory exam: PRESENT: decreased breath sounds Cardiovascular exam: PRESENT: RRR. ABSENT: diastolic murmur, rubs, systolic murmur GI/Abdominal exam: PRESENT: normal bowel sounds, soft. ABSENT: distended, guarding, mass, organolmegaly, rebound, tenderness Rectal exam: PRESENT: deferred Extremities exam: PRESENT: full ROM. ABSENT: calf tenderness, clubbing, pedal edema Neurological exam: PRESENT: alert, awake, oriented to person, oriented to place, oriented to time, oriented to situation, CN II-XII grossly intact. ABSENT: motor sensory deficit Skin exam: PRESENT: dry, intact, warm. ABSENT: cyanosis, rash Results Laboratory Results: 05/07/20 12:04 05/08/20 14:38 05/07/20 12:04 Blood Blood Culture (PCR) - Final Enterococcus Species Staphylococcus Aureus 05/05/20 08:40 Tracheal Aspirate Sputum Culture - Final Staphylococcus Aureus Stenotrophomonas Maltophilia C.albicans/C.dubliniensis Normal Kathie Absent 04/20/20 04/23/20 04/23/20 09:00 01:55 01:55 Creatine Kinase < 20 L CK-MB (CK-2) 2.20 Troponin I < 0.012 0.082 NT-Pro-B Natriuret Pep [id number] H 04/23/20 04/23/20 04/23/20 05:58 08:22 14:50 Creatine Kinase < 20 L < 20 L CK-MB (CK-2) 2.24 Troponin I 0.066 NT-Pro-B Natriuret Pep 04/23/20 14:50 Creatine Kinase CK-MB (CK-2) 2.09 Troponin I 0.057 NT-Pro-B Natriuret Pep Impressions: Modified Barium Swallow 04/26/20 00:01 IMPRESSION: LARYNGEAL PENETRATION WITH THIN BARIUM, WITH TRACE ASPIRATION FROM RESIDUALS. PLEASE SEE SPEECH PATHOLOGIST REPORT FOR OTHER FINDINGS AND RECOMMENDATIONS. Chest X-Ray 05/06/20 07:00 IMPRESSION: Mildly worsened patchy right basilar airspace disease compatible with pneumonia. Stable mild associated right-sided pleural effusion. PICC Line Insertion 05/07/20 00:00 IMPRESSION: SUCCESSFUL PLACEMENT OF A 5 FR DUAL LUMEN 47 CM PICC IN THE LEFT BRACHIOCEPHALIC VEIN. Assessment and Plan - Diagnosis (1) Acute on chronic respiratory failure with hypoxia and hypercapnia Is this a current diagnosis for this admission?: Yes Plan: Likely due to healthcare associated pneumonia or aspiration pneumonia. Sputum culture growing MRSA. Continue vancomycin; Day #7. Aggressive pulmonary toileting, tracheostomy care, monitor for aspiration. 04/30/2020-reviewing records from the previous week reveals sporadic use of ventilator. Continue oxygen supplementation by trach collar to keep saturations greater than or equal to 90%. 05/01/2020-patient actually sounds worse today than yesterday. He is currently on BiPAP. He still does not appreciate the effects that his dysfunctional swallow is having on his overall health. He still believes that he can eat solid foods. Repeat chest x-ray yesterday still showed significant right lower lobe infiltrate. He is continuing to aspirate just based on clinical findings. If he still requires BiPAP I will repeat a chest x-ray tomorrow to look for significant worsening. The patient continues to request a liberal diet. At this point it is impractical and with severe risk. We will continue to discuss with the patient tomorrow of the risks of his wishes to remove the tracheostomy and advance his diet versus the constraints of the proposed treatment plan based on concrete findings. 05/02/2020-less congested today. I reminded him of the need to continue working on a strong cough to clear secretions. The next step would be to change the trach to cuffless. I will do this if he has several more days without respiratory distress. We will try and keep the cuff deflated as much as possible. 05/03/2020-large volume emesis with obvious aspiration and significant mucus production most likely the result of trial of a meal. This certainly means we will discontinue any trials of change in diet. He is able to remain on trach collar despite this episode. 05/04/2020-patient has been tolerating trach collar consistently. The cuff is deflated and the patient is able to talk. Still with rhonchi on the right. We will hold off on advancing any diet at this time. Continue to attempt to wean with a goal of Decannulating. 05/05/2020-Dr. Mendoza on the trach. Increased mucus production and suctioning requirement. Possible recurrent aspiration pneumonia. Sputum culture has been ordered. 05/06/2020-tracheostomy dressing and strap stained with mucus. Increased secretions and slightly worsened chest x-ray concerning the right lower lobe. White blood cell count is going down. There is a tracheal suction specimen for Gram stain and culture. Currently Gram stain reveals gram-positive cocci in clusters with gram-negative bacilli. The patient seems to be needing more respiratory support today as opposed to trach collar previously. 05/10/2020-ID consult was requested. Patient is receiving ampicillin, vancomycin for presumed VRE under MSSA. Patient is high risk for aspiration. Has a trach. He continued to request oral feeds at this time. (2) Bacteremia due to Enterococcus Is this a current diagnosis for this admission?: Yes Plan: Enterococcus bacteremia sensitive to penicillins and vancomycin. Continue vancomycin; Day #7. Unfortunately, patient continues to refuse repeat blood cultures. Have not been able to determine that patient has cleared his bacteremia in order to establish an EOT date. Repeat Blood cultures remain pending. 04/30/2020-vancomycin through 05/01/2020. We will obtain repeat blood cultures to ensure resolution of bacteremia. 05/01/2020-vancomycin therapy complete. Repeat blood cultures ordered but not collected yet. 05/02/2020-repeat blood cultures to ensure resolution of bacteremia unfortunately not collected as yet. 05/03/2020-blood cultures ordered. Unfortunately not collected as yet. Vancomycin therapy completed. Bacteremia should be resolved. 05/04/2020-unfortunately blood cultures were never ordered. If there is a clin ical change I will reorder. Otherwise bacteremia should be considered resolved. 05/10/2020-ID consult was requested. Patient is receiving ampicillin and vancomycin at this time. Blood cultures from 05/09/2020 are negative so far. Cultures from 1020 indicated for staph aureus MSSA, Enterococcus. (3) Bilateral pneumonia Qualifiers: Pneumonia type: due to unspecified organism Lung location: lower lobe of lung Qualified Code(s): J18.9 - Pneumonia, unspecified organism Is this a current diagnosis for this admission?: Yes Plan: As per #2. 04/30/2020-complete vancomycin therapy as ordered. Repeat chest x-ray to assess progress. Still with very congested breath sounds but this could all be central. 05/01/2020-still with right lower lobe infiltrate. White blood cell count is slightly better but the patient did require BiPAP therapy today. We will continue to monitor closely. We may need to repeat a sputum culture if his clinical status worsens. 05/02/2020-clinically improved. Chest x-ray still shows right lower lobe infiltrate. Breathing more comfortably today. Continue to work towards decannulation. 05/03/2020-antibiotic therapy completed. After today's episode may need to repeat chest x-ray and reassess. 05/04/2020-repeat chest x-ray today shows slight improvement. Antibiotics have been completed. White blood cell count is up to 16 from 11. We will recheck white blood cell count tomorrow. Monitor for other signs of infection including fever and chills or abrupt change in clinical condition 05/05/2020-left lung is actually clear. X-ray reveals slight increase in the right lower lobe opacity. White blood cell count did not decrease. Trying to avoid recurrent antibiotic therapy. 05/06/2020-right lung x-ray appears worse. Clinical exam reveals rhonchi and extremely congested cough that is unchanged from yesterday. Sputum specimen pending. Will need to decide colonization versus acute infection. With his white count improving without antibiotics colonization may be more likely. He continues to aspirate which significantly complicates his respiratory status. 05/10/2020-chest examination bilateral entry was decreased. Few rhonchi at the bases. Are pending at this time. On IV ampicillin, vancomycin. Afebrile. (4) Candiduria Is this a current diagnosis for this admission?: Yes Plan: Urine culture positive for Leah albicans. The patient does have an indwelling Varner catheter has been switched. This is likely contamination. Will monitor closely. No specific treatment at this time. Goal is to remove the Varnre catheter care. 04/30/2020-consider intermittent clamping of catheter to retrain bladder. Urinary incontinence would be extremely bad for his decubitus ulcers. We will need to decide the best plan of care considering all factors. 05/02/2020-no acute intervention at this time. (5) Diabetes Qualifiers: Diabetes mellitus type: type 2 Is this a current diagnosis for this admission?: Yes Plan: Patient noted to be hypoglycemic due to low p.o. intake. Continue sliding scale insulin, Accu-Chek, hypoglycemia protocol. Adjust insulin dosage as needed. 05/10/2020-latest blood sugar is 231. Plan is to continue insulin sliding scale (6) Malnutrition Qualifiers: Malnutrition type: protein-calorie malnutrition Is this a current diagnosis for this admission?: Yes Plan: Due to low p.o. intake. Unfortunately patient has been having aspiration and has been refusing other modes of nutrition, patient has adamantly refused PEG tube and TPN. On 04/26/2020 patient had a modified barium swallow which and recommendation was for pured diet. Patient still at risk of aspiration. Continue feeds as tolerated, registered dietitian has been consulted. 04/30/2020-modified barium swallow performed last week again revealed pooling and aspiration. Patient refuses PEG tube. We will continue with pured diet. Patient constantly asking for regular food. Will need to review his recent course of aspiration pneumonia and discuss realistic expectations. 05/01/2020-still refusing PEG tube placement. Still high risk of aspiration. Patient is requesting advancing his diet. He may need to review the risks and benefits of advancing his diet. He did have a friend actually bringing him food from outside previously. This is temporarily stopped. Continue current diet orders at this time. 05/02/2020-with his current improvements I agreed to a single trial of chicken salad. We discussed trialing other foodstuffs based on his ability to eat the chicken salad without marked aspiration. He refuses sherbet. He was eating ice cream previously. Consider ice cream with the addition of protein powder. 05/03/2020-considering the difficulties encountered and the patient's unwillingness to accept a PEG tube we may be forced to utilize TPN. I will discuss with the patient tomorrow. 05/05/2020-making no progress. Need to seriously consider TPN. 05/06/2020-because of his aspiration and unwillingness to accept PEG tube the patient's malnutrition continues. At this point I am going to start TPN in an effort to improve his recovery chances. Unfortunately he continues to avoid the interventions that would be most helpful for him. 05/10/2020-discussed the plan about initiation of TPN. Patient adamantly is refusing TPN feeds at this time. (7) Medical non-compliance Is this a current diagnosis for this admission?: Yes Plan: 04/30/2020-has been requesting food that is not on his recommended diet. In addition he has been refusing vital signs earlier today as well as over the last several days. He is not a willing participant in the treatment plan at this time. 05/01/2020-I did not invite a conversation regarding liberalizing his diet and decannulation today as his clinical condition has deteriorated from yesterday. He is still pushing to liberalize his diet and he still wants his tracheostomy out. We will need to have a tiffanie discussion with him. He chooses to be noncompliant. He does not acknowledge the heroic efforts of the medical staff including nursing to help take care of him. I feel he lacks a certain degree of insight. I would be happy to liberalize his diet and decannulate him under the condition that he understands the risk and changes his CODE STATUS to DNR with the stipulation that it is not to change back when he decompensates. He clearly will decompensate based on multiple clinical factors and his history. He is not agreed to that drastic a plan as yet. If he remains a full code then we will need to adhere to that and provide the safest medical treatment possible. Unfortunately he has the right to be noncompliant and disregard our treatment plan. 05/02/2020-continued encouragement regarding consistency of treatment plan. 05/05/2020-very frustrating with regard to patient's continued refusal to accept the entire treatment plan. Aortic blood cultures today to check for infection with the elevated white blood cell count however the patient refused to allow blood cultures to be drawn. 05/06/2020-we will start TPN as an answer to his refusal for certain interventions that I feel would be most helpful. - Plan Summary Summary: Mr. Stalin Sena is a 60-year-old man with HTN, HLD, DM2, CHF and recent prolonged hospitalization for acute respiratory failure secondary to COVID-19 pneumonia s/p tracheostomy placement and discharge to a halfway facility for continued rehabilitation. He returned to [facility] on 04/20/20 SOB, and was found to have hypoxemia, tachycardia, hypothermia and hypotension. A right femoral line was urgently placed for IV access. Enterococcus Bacteremia (present on admission) CLABSI and MSSA Bacteremia (diagnosed 05/07/2020) Blood cultures drawn on admission were obtained from the R hand and from the R femoral line; one bottle in each set (peripheral and central line) grew Ent erococcus faecalis susceptible to penicillin and ampicillin. He was treated with IV vancomycin (in light of a reported penicillin allergy) for approximately 10 days (04/20-04/30). The patient refused repeat blood cultures until 05/07/20, at which time a PICC line was placed. Two sets of blood cultures were obtained - one set from the PICC line and one set from the R femoral line. After obtaining BCx, the R femoral line was removed on 05/07/2020. Both of these sets of BCx from 05/07 grew bacteria. One set grew GPCs in clusters. The other set grew VRE and presumptive MSSA. Therefore, on 05/08/2020, he was started on treatment with ampicillin and vancomycin (review of his chart raised doubt that he had a true IgE mediated penicillin allergy, as he had previously received several courses of cephalosporins). The patient has since been refusing attempts at placing PIV access in order to be able to remove his PICC line and he also refused to allow repeat BCx on 05/08. He finally allowed repeat BCx to be drawn from the PICC on 05/09. ID was consulted on 05/09 for further recommendations, which include: * Enterococcus bacteremia * This potentially represents a recurrence of the previous Enterococcal faecalis bacteremia, but right now it is not possible to definitively say this. The identification and susceptibilities for the organism are pending. The presence of vancomycin resistance for the new isolate could be acquired in the course of the prior treatment. If this is indeed a recurrence, it raises the question of a persistent focus of infection and re-seeding or failure to clear the bloodstream. * obtain TTE * continue ceftriaxone and ampicillin (ampicillin + Rocephin is an effective alternative regimen to the traditional ampicillin + gentamicin) * Depending on whether or not recurrence of E faecalis bacteremia is unexplained and endocarditis is likely, Rocephin could be continued at the 2 g q12h dose or changed if this higher dose is not required. * The previous E faecalis isolate was susceptible to ampicillin. This remains the case for most vancomycin-resistant E faecalis. Follow culture results for identification of the Enterococcus species and susceptibility results. If the patient becomes hemodynamically unstable or toxic before identification/susceptibilities return, daptomycin can be used at approximately 8-10 mg/kg daily in place of the ampicillin. * MSSA bacteremia in the setting of a PICC line * Source unclear: infected line vs bacteremia secondary to pneumonia (aspiration vs tracheitis) * Isolation of organisms from tracheal aspirate (like any non-sterile site) has to be taken into context, and clinically - WBC count has been stable, no new fever - but he has required an increased amount of oxygen from 6L to 10 L in the past 2 days and has had increased RLL infiltrate on CXR. Leah in tracheal aspirate is usually a colonizer. Stenotrophomonas maltophilia can also be a colonizer and, in the setting of other obviously invasive pathogens, targeting therapy to include it is not necessarily warranted as long as the patient is improving with treatment aimed at the MSSA and other interventions to reduce aspiration risk and/or optimize volume status. * The PICC line should be removed. It is not recommended to attempt salvaging a line when there is Staph aureus bacteremia due to the risk for failure and relapse. * Would avoid placing a terminal press operator line until blood cultures are known to be negative for at least 48 hours. * obtain TTE * continue Rocephin * Duration of therapy should be, at a minimum, 2 weeks from date of negative blood cultures and removal of PICC line, assuming that no endocarditis is present or metastatic foci of infection. If such is present, duration of treatment should be longer. Acute on chronic respiratory failure with hypoxia and hypercapnia: he had an increase in WBC on 05/04- and there was concern for possible aspiration event vs tracheitis vs HAP. CXR was repeated on 05/06 and showed increased opacification in the right lung base. He has remained afebrile, on 6-10 L O2 ove r the duration of his hospitalization. He had a tracheal aspirate on 05/05/20 which showed growth of Leah albicans, Stenotrophomonas maltophilia, and MSSA. He is currently on antibiotics and WBC has normalized. He is a high aspiration risk but he is unwilling to stop eating by mouth and refuses a PEG tube. Severe Protein Calorie Malnutrition: due to poor PO intake. Unfortunately patient has been having aspiration events and also refusing other modes of nutrition. On 04/26/2020 patient had a modified barium swallow and recommendation was for pured diet with aspiration precautions. PICC placed on 05/07 and TPN was briefly initiated until his BCx resulted, and TPN was thus discontinued (due to ongoing bacteremia). Tracheostomy in place: Continue tracheostomy care. Aggressive pulmonary toileting. Inner cannula is showing evidence of the increased secretions. Because of his insistence on eating PO, he has significantly delaying the po ssibility of decannulation. Hyperglycemia due to type 2 diabetes mellitus: glucose control is reasonable. His intake does vary. He continues to refuse PEG tube placement. This would in fact significantly improve the trajectory of his recovery. This has been suggested multiple times and he adamantly refuses each time. Will need to adjust treatment as his diet changes. Candiduria: Urine culture positive for Leah albicans. The patient does have an indwelling Varner catheter which has been exchanged this admission. Chronic Urinary Retention: exchange Varner catheter every 4 weeks to prevent CAUTI. Anemia of Chronic Disease: hemoglobin has been 7-8 since January 2020. Ferritin elevated (not iron deficiency). He has no evidence of active blood loss. Critical illness myopathy: he will need ongoing PT and OT due to the severe deconditioning from his prolonged illness and prolonged hospitalizations. Medical non-adherence: he has been requesting food that is not on his recommended diet. He is, at times, a willing participant in the treatment plan but, at other times, lacks insight and has poor judgment. He remains a FULL CODE and does not wish to change his code status, despite ongoing dysphagia, oral intake and high risk for future aspiration episodes. We discussed at length today the risk of morbidity and mortality due to bacteremia, the importance of antibiotics, the importance of removing his PICC line and allowing us to place PIVs, etc. He is bargaining and stating that he will accept certain medications and medical interventions only if he can get IV opioids for treatment of his chronic MSK pain. We agreed that I would change his oral oxycodone dosage to an equivalent IV morphine dosage, but that he can no longer decline these medical interventions and he is agreeable at this time. Discussed with RN. - Time Anticipated Discharge Disposition: [facility] Facility Anticipated Discharge Timeframe: within 72 hours
[2020-05-10] MEDS: DEXTROSE 5%-NORMAL SALINE 1,000 ML IV PRN (12:22)
--- NOTE | 2020-05-10 20:33 | PDOC CONSULTATION ---
Consultation-Blank Consultation: Behavioral Health Consult: Capacity Conducted chart review at 1440. Patient presented to the ED 04/20/2020 via EMS for SOB. He was subsequently admitted same day at 1452. Current medical inpatient stay criteria is listed as acute on chronic respiratory failure with hypoxia and hypercapnia, bacteremia due to enterococcus, bilateral pneumonia, candiduria, diabetes, malnutrition, and medical noncompliance. Today's hospital progress note stated patient was comfortable in bed and communicating well, he was informed he needed TPN but said he wanted to eat even after being educated on concern for aspiration pneumonia then requested the doctor leave the room. Plan is for patient to go to SNF and Hospital Discharge Planning involved. Today they noted patient was declined from [facility] due to only having 32 Medicare days left. Documentation from yesterday noted two attempts with PT but patient declined. Head CT dated 08/28/2019 had no neurodegenerative language. No psychiatric medications being prescribed in hospital with the exception of Trazodone 100MG at night for sleep. Made phone contact with Attending Hospitalist Dr. Bajwa regarding need for capacity since it seemed patient agreed to medical services if he could get PO pain medication changed to IV for Chronic MSK pain. Hospitalist noted patient has lost a lot of weight and does not seem to fully understand decisions he is making. Inquired if capacity could take place Wednesday when the other [facility] Behavioral Health worker would be onsite. He said yes patient is not going anywhere.
[2020-05-10] MEDS: PROMETHAZINE HCL INJ 25 MG/1 ML VIAL IV PRN (21:49)
[2020-05-11] MEDS: INSULIN REG, HUMAN 100 UNIT/ML 3 ML VIAL (PYX) SUBCUT SCH ×4 (00:15→17:17)
[2020-05-11] MEDS: NITROGLYCERIN 2% OINTMENT 1 GM PACKET TP SCH ×4 (00:16→17:25)
[2020-05-11] MEDS: AMPICILLIN SODIUM 2 GM in NORMAL SALINE 100 ML IV SCH ×6 (00:18→19:19)
[2020-05-11] MEDS: ONDANSETRON HCL INJ/PF 4 MG/2 ML SDV IV PRN ×2 (03:58→23:26)
[2020-05-11] MEDS: DIPHENHYDRAMINE HCL 50 MG/ML VIAL IV PRN ×4 (03:58→23:26)
[2020-05-11] MEDS: MORPHINE SULFATE 10 MG/ML INJ IV PRN ×5 (03:59→23:26)
[2020-05-11] MEDS: DEXTROSE 5%-NORMAL SALINE 1,000 ML IV PRN ×2 (04:08→17:32)
[2020-05-11] MEDS: CEFTRIAXONE 2 GM/D5W RTU 2 GM/50 ML RTUPB IV SCH ×2 (05:59→17:25)
--- NOTE | 2020-05-11 09:29 | PDOC PROGRESS REPORT ---
Subjective Progress Note for:: 05/11/20 Subjective:: 05/10/2020-patient is comfortable in the bed communicating well. Discussed the need for TPN at this time. Patient wants to eat. I tried to explain to him he is a very high risk for aspiration pneumonia. Patient does not want to TPN at this time. He requested me to leave the room. 05/11/2020-patient is refusing to talk to me. Try to discuss with him about TPN again he is refused to talk to me. He does not want me to examine him. Comfortably in the bed watching TV. Microbiology lab called me and told me blood culture is growing VRE. Started on linezolid diet. Patient also has MSSA. Receiving ampicillin, ceftriaxone. Afebrile. ID will be consulted again on Wednesday. Reason For Visit: ACUTE HYPOXIC RESPIRATORY FAILURE, HYPOTENSION Physical Exam Vital Signs: Temp Pulse Resp BP Pulse Ox 97.3 F 74 12 148/105 H 100 05/11/20 08:38 05/11/20 09:19 05/11/20 09:19 05/11/20 07:42 05/11/20 09:19 Intake & Output 05/10/20 05/11/20 05/12/20 06:59 06:59 06:59 Intake Total 3550 2000 Output Total 2550 1300 Balance 1000 700 Weight 52 kg 53.6 kg General appearance: PRESENT: no acute distress, thin Head exam: PRESENT: atraumatic Eye exam: PRESENT: conjunctiva pale, PERRLA Mouth exam: PRESENT: neck supple Teeth exam: PRESENT: poor dentation Neck exam: PRESENT: other - trach with neck color in place.. Respiratory exam: PRESENT: decreased breath sounds Cardiovascular exam: PRESENT: RRR. ABSENT: diastolic murmur, rubs, systolic murmur GI/Abdominal exam: PRESENT: normal bowel sounds, soft. ABSENT: distended, guarding, mass, organolmegaly, rebound, tenderness Rectal exam: PRESENT: deferred Extremities exam: PRESENT: full ROM. ABSENT: calf tenderness, clubbing, pedal edema Neurological exam: PRESENT: alert, awake, oriented to person, oriented to place, oriented to time, oriented to situation, CN II-XII grossly intact. ABSENT: motor sensory deficit Results Laboratory Results: 05/07/20 12:04 05/08/20 14:38 05/07/20 12:04 Blood Blood Culture (PCR) - Final Enterococcus Species Staphylococcus Aureus 05/07/20 12:04 Blood Blood Culture - Final E.faecium Vre Staphylococcus Aureus 05/07/20 12:10 Blood Blood Culture - Final Staphylococcus Aureus 04/20/20 04/23/20 04/23/20 09:00 01:55 01:55 Creatine Kinase < 20 L CK-MB (CK-2) 2.20 Troponin I < 0.012 0.082 NT-Pro-B Natriuret Pep [id number] H 04/23/20 04/23/20 04/23/20 05:58 08:22 14:50 Creatine Kinase < 20 L < 20 L CK-MB (CK-2) 2.24 Troponin I 0.066 NT-Pro-B Natriuret Pep 04/23/20 14:50 Creatine Kinase CK-MB (CK-2) 2.09 Troponin I 0.057 NT-Pro-B Natriuret Pep Impressions: Modified Barium Swallow 04/26/20 00:01 IMPRESSION: LARYNGEAL PENETRATION WITH THIN BARIUM, WITH TRACE ASPIRATION FROM RESIDUALS. PLEASE SEE SPEECH PATHOLOGIST REPORT FOR OTHER FINDINGS AND RECOMMENDATIONS. Chest X-Ray 05/06/20 07:00 IMPRESSION: Mildly worsened patchy right basilar airspace disease compatible with pneumonia. Stable mild associated right-sided pleural effusion. PICC Line Insertion 05/07/20 00:00 IMPRESSION: SUCCESSFUL PLACEMENT OF A 5 FR DUAL LUMEN 47 CM PICC IN THE LEFT BRACHIOCEPHALIC VEIN. Assessment and Plan - Diagnosis (1) Acute on chronic respiratory failure with hypoxia and hypercapnia Is this a current diagnosis for this admission?: Yes Plan: Likely due to healthcare associated pneumonia or aspiration pneumonia. Sputum culture growing MRSA. Continue vancomycin; Day #7. Aggressive pulmonary toileting, tracheostomy care, monitor for aspiration. 04/30/2020-reviewing records from the previous week reveals sporadic use of ventilator. Continue oxygen supplementation by trach collar to keep saturations greater than or equal to 90%. 05/01/2020-patient actually sounds worse today than yesterday. He is currently on BiPAP. He still does not appreciate the effects that his dysfunctional swallow is having on his overall health. He still believes that he can eat solid foods. Repeat chest x-ray yesterday still showed significant right lower lobe infiltrate. He is continuing to aspirate just based on clinical findings. If he still requires BiPAP I will repeat a chest x-ray tomorrow to look for significant worsening. The patient continues to request a liberal diet. At this point it is impractical and with severe risk. We will continue to discuss with the patient tomorrow of the risks of his wishes to remove the tracheostomy and advance his diet versus the constraints of the proposed treatment plan based on concrete findings. 05/02/2020-less congested today. I reminded him of the need to continue working on a strong cough to clear secretions. The next step would be to change the trach to cuffless. I will do this if he has several more days without respi ratory distress. We will try and keep the cuff deflated as much as possible. 05/03/2020-large volume emesis with obvious aspiration and significant mucus production most likely the result of trial of a meal. This certainly means we will discontinue any trials of change in diet. He is able to remain on trach collar despite this episode. 05/04/2020-patient has been tolerating trach collar consistently. The cuff is deflated and the patient is able to talk. Still with rhonchi on the right. We will hold off on advancing any diet at this time. Continue to attempt to wean with a goal of Decannulating. 05/05/2020-Dr. Mendoza on the trach. Increased mucus production and suctioning requirement. Possible recurrent aspiration pneumonia. Sputum culture has been ordered. 05/06/2020-tracheostomy dressing and strap stained with mucus. Increased secretions and slightly worsened chest x-ray concerning the right lower lobe. White blood cell count is going down. There is a tracheal suction specimen for Gram stain and culture. Currently Gram stain reveals gram-positive cocci in clusters with gram-negative bacilli. The patient seems to be needing more respiratory support today as opposed to trach collar previously. 05/10/2020-ID consult was requested. Patient is receiving ampicillin, vancomycin for presumed VRE under MSSA. Patient is high risk for aspiration. Has a trach. He continued to request oral feeds at this time. Blood cultures growing VRE, staph aureus. Presently on ampicillin, ceftriaxone and started on linezolid. ID consult will be requested on Wednesday. 05/11/20-pulse oxes 100% 6 L. Has a trach. Blood cultures growing VRE E. Started on linezolid. ID consult will be requested on Wednesday. To continue ampicillin and ceftriaxone for MSSA. (2) Bacteremia due to Enterococcus Is this a current diagnosis for this admission?: Yes Plan: Enterococcus bacteremia sensitive to penicillins and vancomycin. Continue vancomycin; Day #7. Unfortunately, patient continues to refuse repeat blood cultures. Have not been able to determine that patient has cleared his bacteremia in order to establish an EOT date. Repeat Blood cultures remain pending. 04/30/2020-vancomycin through 05/01/2020. We will obtain repeat blood cultures to ensure resolution of bacteremia. 05/01/2020-vancomycin therapy complete. Repeat blood cultures ordered but not collected yet. 05/02/2020-repeat blood cultures to ensure resolution of bacteremia unfortunately not collected as yet. 05/03/2020-blood cultures ordered. Unfortunately not collected as yet. Vancomycin therapy completed. Bacteremia should be resolved. 05/04/2020-unfortunately blood cultures were never ordered. If there is a clinical change I will reorder. Otherwise bacteremia should be considered resolved. 05/10/2020-ID consult was requested. Patient is receiving ampicillin and vancomycin at this time. Blood cultures from 05/09/2020 are negative so far. Cultures from 1020 indicated for staph aureus MSSA, Enterococcus. 05/11/20-blood culture positive for VRE. Started on linezolid. ID will be consulted Wednesday. Patient is afebrile. (3) Bilateral pneumonia Qualifiers: Pneumonia type: due to unspecified organism Lung location: lower lobe of lung Qualified Code(s): J18.9 - Pneumonia, unspecified organism Is this a current diagnosis for this admission?: Yes Plan: As per #2. 04/30/2020-complete vancomycin therapy as ordered. Repeat chest x-ray to assess progress. Still with very congested breath sounds but this could all be central. 05/01/2020-still with right lower lobe infiltrate. White blood cell count is slightly better but the patient did require BiPAP therapy today. We will continue to monitor closely. We may need to repeat a sputum culture if his clinical status worsens. 05/02/2020-clinically improved. Chest x-ray still shows right lower lobe infiltrate. Breathing more comfortably today. Continue to work towards decannulation. 05/03/2020-antibiotic therapy completed. After today's episode may need to repeat chest x-ray and reassess. 05/04/2020-repeat chest x-ray today shows slight improvement. Antibiotics have been completed. White blood cell count is up to 16 from 11. We will recheck white blood cell count tomorrow. Monitor for other signs of infection including fever and chills or abrupt change in clinical condition 05/05/2020-left lung is actually clear. X-ray reveals slight increase in the right lower lobe opacity. White blood cell count did not decrease. Trying to avoid recurrent antibiotic therapy. 05/06/2020-right lung x-ray appears worse. Clinical exam reveals rhonchi and extremely congested cough that is unchanged from yesterday. Sputum specimen pending. Will need to decide colonization versus acute infection. With his white count improving without antibiotics colonization may be more likely. He continues to aspirate which significantly complicates his respiratory status. 05/10/2020-chest examination bilateral entry was decreased. Few rhonchi at the bases. Are pending at this time. On IV ampicillin, rocephin. Afebrile. 08/11/2019-pulse ox 100% on 6 L. Not in respiratory distress. Comfortably in the bed watching TV. To continue IV ampicillin, ceftriaxone. Started on linezolid for VRE. (4) Candiduria Is this a current diagnosis for this admission?: Yes Plan: Urine culture positive for Leah albicans. The patient does have an indwelling Varner catheter has been switched. This is likely contamination. Will monitor closely. No specific treatment at this time. Goal is to remove the Varner catheter care. 04/30/2020-consider intermittent clamping of catheter to retrain bladder. Urinary incontinence would be extremely bad for his decubitus ulcers. We will need to decide the best plan of care considering all factors. 05/02/2020-no acute intervention at this time. (5) Diabetes Qualifiers: Diabetes mellitus type: type 2 Is this a current diagnosis for this admission?: Yes Plan: Patient noted to be hypoglycemic due to low p.o. intake. Continue sliding scale insulin, Accu-Chek, hypoglycemia protocol. Adjust insulin dosage as needed. 05/10/2020-latest blood sugar is 231. Plan is to continue insulin sliding scale (6) Malnutrition Qualifiers: Malnutrition type: protein-calorie malnutrition Is this a current diagnosis for this admission?: Yes Plan: Due to low p.o. intake. Unfortunately patient has been having aspiration and has been refusing other modes of nutrition, patient has adamantly refused PEG tube and TPN. On 04/26/2020 patient had a modified barium swallow which and recommendation was for pured diet. Patient still at risk of aspiration. Continue feeds as tolerated, registered dietitian has been consulted. 04/30/2020-modified barium swallow performed last week again revealed pooling and aspiration. Patient refuses PEG tube. We will continue with pured diet. Patient constantly asking for regular food. Will need to review his recent course of aspiration pneumonia and discuss realistic expectations. 05/01/2020-still refusing PEG tube placement. Still high risk of aspiration. Patient is requesting advancing his diet. He may need to review the risks and benefits of advancing his diet. He did have a friend actually bringing him food from outside previously. This is temporarily stopped. Continue current diet orders at this time. 05/02/2020-with his current improvements I agreed to a single trial of chicken salad. We discussed trialing other foodstuffs based on his ability to eat the chicken salad without marked aspiration. He refuses sherbet. He was eating ice cream previously. Consider ice cream with the addition of protein powder. 05/03/2020-considering the difficulties encountered and the patient's unwillingness to accept a PEG tube we may be forced to utilize TPN. I will discuss with the patient tomorrow. 05/05/2020-making no progress. Need to seriously consider TPN. 05/06/2020-because of his aspiration and unwillingness to accept PEG tube the patient's malnutrition continues. At this point I am going to start TPN in an effort to improve his recovery chances. Unfortunately he continues to avoid the interventions that would be most helpful for him. 05/10/2020-discussed the plan about initiation of TPN. Patient adamantly is refusing TPN feeds at this time. (7) Medical non-compliance Is this a current diagnosis for this admission?: Yes Plan: 04/30/2020-has been requesting food that is not on his recommended diet. In addition he has been refusing vital signs earlier today as well as over the last several days. He is not a willing participant in the treatment plan at this time. 05/01/2020-I did not invite a conversation regarding liberalizing his diet and decannulation today as his clinical condition has deteriorated from yesterday. He is still pushing to liberalize his diet and he still wants his tracheostomy out. We will need to have a tiffanie discussion with him. He chooses to be noncompliant. He does not acknowledge the heroic efforts of the medical staff i ncluding nursing to help take care of him. I feel he lacks a certain degree of insight. I would be happy to liberalize his diet and decannulate him under the condition that he understands the risk and changes his CODE STATUS to DNR with the stipulation that it is not to change back when he decompensates. He clearly will decompensate based on multiple clinical factors and his history. He is not agreed to that drastic a plan as yet. If he remains a full code then we will need to adhere to that and provide the safest medical treatment possible. Unfortunately he has the right to be noncompliant and disregard our treatment plan. 05/02/2020-continued encouragement regarding consistency of treatment plan. 05/05/2020-very frustrating with regard to patient's continued refusal to accept the entire treatment plan. Aortic blood cultures today to check for infection with the elevated white blood cell count however the patient refused to allow blood cultures to be drawn. 05/06/2020-we will start TPN as an answer to his refusal for certain interventions that I feel would be most helpful. - Plan Summary Summary: Mr. Stalin Sena is a 60-year-old man with HTN, HLD, DM2, CHF and recent prolonged hospitalization for acute respiratory failure secondary to COVID-19 pneumonia s/p tracheostomy placement and discharge to a nursing home facility for continued rehabilitation. He returned to [facility] on 04/20/20 SOB, and was found to have hypoxemia, tachycardia, hypothermia and hypotension. A right femoral line was urgently placed for IV access. Enterococcus Bacteremia (present on admission) CLABSI and MSSA Bacteremia (diagnosed 05/07/2020) Blood cultures drawn on admission were obtained from the R hand and from the R femoral line; one bottle in each set (peripheral and central line) grew Enterococcus faecalis susceptible to penicillin and ampicillin. He was treated with IV vancomycin (in light of a reported penicillin allergy) for approximately 10 days (04/20-04/30). The patient refused repeat blood cultures until 05/07/20, at which time a PICC line was placed. Two sets of blood cultures were obtained - one set from the PICC line and one set from the R femoral line. After obtaining BCx, the R femoral line was removed on 05/07/2020. Both of these sets of BCx from 05/07 grew bacteria. One set grew GPCs in clusters. The other set grew VRE and presumptive MSSA. Therefore, on 05/08/2020, he was started on treatment with ampicillin and vancomycin (review of his chart raised doubt that he had a true IgE mediated penicillin allergy, as he had previously received several courses of cephalosporins). The patient has since been refusing attempts at placing PIV access in order to be able to remove his PICC line and he also refused to allow repeat BCx on 05/08. He finally allowed repeat BCx to be drawn from the PICC on 05/09. ID was consulted on 05/09 for further recommendations, which include: * Enterococcus bacteremia * This potentially represents a recurrence of the previous Enterococcal faecalis bacteremia, but right now it is not possible to definitively say this. The identification and susceptibilities for the organism are pending. The presence of vancomycin resistance for the new isolate could be acquired in the course of the prior treatment. If this is indeed a recurrence, it raises the question of a persistent focus of infection and re-seeding or failure to clear the bloodstream. * obtain TTE * continue ceftriaxone and ampicillin (ampicillin + Rocephin is an effective alternative regimen to the traditional ampicillin + gentamicin) * Depending on whether or not recurrence of E faecalis bacteremia is unexplained and endocarditis is likely, Rocephin could be continued at the 2 g q12h dose or changed if this higher dose is not required. * The previous E faecalis isolate was susceptible to ampicillin. This remains the case for most vancomycin-resistant E faecalis. Follow culture results for identification of the Enterococcus species and susceptibility results. If the patient becomes hemodynamically unstable or toxic before identification/susceptibilities return, daptomycin can be used at approximately 8-10 mg/kg daily in place of the ampicillin. * MSSA bacteremia in the setting of a PICC line * Source unclear: infected line vs bacteremia secondary to pneumonia (aspiration vs tracheitis) * Isolation of organisms from tracheal aspirate (like any non-sterile site) has to be taken into context, and clinically - WBC count has been stable, no new fever - but he has required an increased amount of oxygen from 6L to 10 L in the past 2 days and has had increased RLL infiltrate on CXR. Leah in tracheal aspirate is usually a colonizer. Stenotrophomonas maltophilia can also be a colonizer and, in the setting of other obviously invasive pathogens, targeting therapy to include it is not necessarily warranted as long as the patient is improving with treatment aimed at the MSSA and other interventions to reduce aspiration risk and/or optimize volume status. * The PICC line should be removed. It is not recommended to attempt salvaging a line when there is Staph aureus bacteremia due to the risk for failure and relapse. * Would avoid placing a custodial line until blood cultures are known to be negative for at least 48 hours. * obtain TTE * continue Rocephin * Duration of therapy should be, at a minimum, 2 weeks from date of negative blood cultures and removal of PICC line, assuming that no endocarditis is present or metastatic foci of infection. If such is present, duration of treatment should be longer. Acute on chronic respiratory failure with hypoxia and hypercapnia: he had an increase in WBC on 05/04- and there was concern for possible aspiration event vs tracheitis vs HAP. CXR was repeated on 05/06 and showed increased opacification in the right lung base. He has remained afebrile, on 6-10 L O2 over the duration of his hospitalization. He had a tracheal aspirate on 05/05/20 which showed growth of Leah albicans, Stenotrophomonas maltophilia, and MSSA. He is currently on antibiotics and WBC has normalized. He is a high aspiration risk but he is unwilling to stop eating by mouth and refuses a PEG tube. Severe Protein Calorie Malnutrition: due to poor PO intake. Unfortunately patient has been having aspiration events and also refusing other modes of nutrition. On 04/26/2020 patient had a modified barium swallow and recommendation was for pured diet with aspiration precautions. PICC placed on 05/07 and TPN was briefly initiated until his BCx resulted, and TPN was thus discontinued (due to ongoing bacteremia). Tracheostomy in place: Continue tracheostomy care. Aggressive pulmonary toileting. Inner cannula is showing evidence of the increased secretions. Because of his insistence on eating PO, he has significantly delaying the possibility of decannulation. Hyperglycemia due to type 2 diabetes mellitus: glucose control is reasonable. His intake does vary. He continues to refuse PEG tube placement. This would in fact significantly improve the trajectory of his recovery. This has been suggested multiple times and he adamantly refuses each time. Will need to adjust treatment as his diet changes. Candiduria: Urine culture positive for Leha albicans. The patient does have an indwelling Varner catheter which has been exchanged this admission. Chronic Urinary Retention: exchange Varner catheter every 4 weeks to prevent CAUTI. Anemia of Chronic Disease: hemoglobin has been 7-8 since January 2020. Ferritin elevated (not iron deficiency). He has no evidence of active blood loss. Critical illness myopathy: he will need ongoing PT and OT due to the severe deconditioning from his prolonged illness and prolonged hospitalizations. Medical non-adherence: he has been requesting food that is not on his re commended diet. He is, at times, a willing participant in the treatment plan but, at other times, lacks insight and has poor judgment. He remains a FULL CODE and does not wish to change his code status, despite ongoing dysphagia, oral intake and high risk for future aspiration episodes. We discussed at length today the risk of morbidity and mortality due to bacteremia, the importance of antibiotics, the importance of removing his PICC line and allowing us to place PIVs, etc. He is bargaining and stating that he will accept certain medications and medical interventions only if he can get IV opioids for treatment of his chronic MSK pain. We agreed that I would change his oral oxycodone dosage to an equivalent IV morphine dosage, but that he can no longer decline these medical interventions and he is agreeable at this time. Discussed with RN. - Time Anticipated Discharge Disposition: Alf Facility Anticipated Discharge Timeframe: within 72 hours
[2020-05-11] MEDS: PHOSPHORUS #1 250 MG TABLET PO SCH ×4 (09:32→21:38)
[2020-05-11] MEDS: LACTULOSE SYRUP 20 GM/30 ML UDCUP PO SCH ×2 (09:33→21:37)
[2020-05-11] MEDS: SENNOSIDES/DOCUSATE 8.6-50 MG 1 EACH TABLET PO SCH (09:33)
[2020-05-11] MEDS: ENOXAPARIN SODIUM INJ 40 MG/0.4 ML DISP.SYRIN SUBCUT SCH (09:36)
[2020-05-11] MEDS: LISINOPRIL 5 MG TABLET PO SCH ×2 (09:37→21:38)
[2020-05-11] MEDS: NORMAL SALINE 10 ML SDV (SCHEDULED) IV SCH ×2 (09:37→21:37)
[2020-05-11] MEDS: METOPROLOL SUCCINATE 25 MG TAB.SR.24H PO SCH (09:38)
[2020-05-11] MEDS: SCOPOLAMINE HYDROBROMIDE 1.5 MG PATCH.TD72 TD SCH (09:38)
[2020-05-11] MEDS: THIAMINE HCL 100 MG TABLET PO SCH (09:40)
[2020-05-11] MEDS: LINEZOLID 600 MG/300 ML RTUPB IV SCH ×2 (11:09→21:40)
[2020-05-11] MEDS: PROMETHAZINE HCL INJ 25 MG/1 ML VIAL IV PRN ×2 (14:18→20:30)
[2020-05-12] MEDS: AMPICILLIN SODIUM 2 GM in NORMAL SALINE 100 ML IV SCH ×6 (00:45→19:47)
[2020-05-12] MEDS: INSULIN REG, HUMAN 100 UNIT/ML 3 ML VIAL (PYX) SUBCUT SCH ×4 (00:50→17:17)
[2020-05-12] MEDS: NITROGLYCERIN 2% OINTMENT 1 GM PACKET TP SCH ×4 (00:50→17:17)
[2020-05-12] MEDS: PROMETHAZINE HCL INJ 25 MG/1 ML VIAL IV PRN ×3 (03:18→23:10)
[2020-05-12] MEDS: DEXTROSE 5%-NORMAL SALINE 1,000 ML IV PRN ×2 (03:18→19:46)
[2020-05-12] MEDS: MORPHINE SULFATE 10 MG/ML INJ IV PRN ×5 (03:26→20:23)
[2020-05-12] MEDS: DIPHENHYDRAMINE HCL 50 MG/ML VIAL IV PRN ×5 (03:28→20:23)
[2020-05-12] MEDS: CEFTRIAXONE 2 GM/D5W RTU 2 GM/50 ML RTUPB IV SCH ×2 (05:17→17:14)
[2020-05-12 06:49] LABS: ABSOLUTE BASOPHILS # (AUTO) 0.1 10^3/uL (0.0-0.2); ABSOLUTE EOSINOPHILS # (AUTO) 0.4 10^3/uL (0.0-0.6); ABSOLUTE LYMPHOCYTES (AUTO) 1.3 10^3/uL (0.5-4.7); ABSOLUTE MONOCYTES (AUTO) 0.9 10^3/uL (0.1-1.4); ABSOLUTE NEUT (AUTO) 7.1 10^3/uL (1.7-8.2); BASOPHILS % (AUTO) 0.8 % (0-2); EOSINOPHILS % (AUTO) 3.7 % (0-6); HEMATOCRIT 27.1 % (37.9-51.0); LYMPHOCYTES % (AUTO) 12.9 % (13-45); MEAN CORPUSCULAR HEMOGLOBIN 28.1 pg (27.0-33.4); MEAN CORPUSCULAR HGB CONC 33.1 g/dL (32.0-36.0); MEAN CORPUSCULAR VOLUME 85 fl (80-97); MONOCYTES % (AUTO) 9.4 % (3-13); PLATELET COUNT 338 10^3/uL (150-450); RED CELL DISTRIBUTION WIDTH 17.1 % (11.5-14.0); SEGMENTED NEUTROPHILS % (AUTO) 73.2 % (42-78); TOTAL CELLS COUNTED % (AUTO) 100 %; WHITE BLOOD COUNT 9.8 10^3/uL (4.0-10.5)
[2020-05-12 07:24] LABS: ALBUMIN 2.1 g/dL (3.5-5.0); ALKALINE PHOSPHATASE 125 U/L (38-126); ANION GAP 7 (5-19); ASPARTATE AMINO TRANSFERASE 9 U/L (17-59); BILIRUBIN,DIRECT 0.3 mg/dL (0.0-0.4); BILIRUBIN,TOTAL 0.3 mg/dL (0.2-1.3); BLOOD UREA NITROGEN 9 mg/dL (7-20); CALCIUM 8.2 mg/dL (8.4-10.2); CARBON DIOXIDE 28 mmol/L (22-30); CHLORIDE 107 mmol/L (98-107); GLUCOSE 103 mg/dL (75-110); POTASSIUM 3.2 mmol/L (3.6-5.0); TOTAL PROTEIN 5.3 g/dL (6.3-8.2)
[2020-05-12] MEDS ORDERED: MAGNESIUM OXIDE 400 MG TABLET PO ONE (07:39)
[2020-05-12] MEDS: PHOSPHORUS #1 250 MG TABLET PO SCH ×4 (08:40→22:49)
--- NOTE | 2020-05-12 08:50 | PDOC PROGRESS REPORT ---
Subjective Progress Note for:: 05/12/20 Subjective:: 05/10/2020-patient is comfortable in the bed communicating well. Discussed the need for TPN at this time. Patient wants to eat. I tried to explain to him he is a very high risk for aspiration pneumonia. Patient does not want to TPN at this time. He requested me to leave the room. 05/11/2020-patient is refusing to talk to me. Try to discuss with him about TPN again he is refused to talk to me. He does not want me to examine him. Comfortably in the bed watching TV. Microbiology lab called me and told me blood culture is growing VRE. Started on linezolid diet. Patient also has MSSA. Receiving ampicillin, ceftriaxone. Afebrile. ID will be consulted again on Wednesday. 05/12/20-comfortably in the bed communicating well. Not in distress. Refusing to have a TPN. Wants to eat tried to explain to him that he is high risk for aspiration still requesting for oral feeds. Psych consult was requested for capacity exam it will be done tomorrow. Reason For Visit: ACUTE HYPOXIC RESPIRATORY FAILURE, HYPOTENSION Physical Exam Vital Signs: Temp Pulse Resp BP Pulse Ox 97.4 F 80 19 149/93 H 100 05/12/20 08:00 05/12/20 08:00 05/12/20 08:00 05/12/20 08:00 05/12/20 08:00 Intake & Output 05/11/20 05/12/20 05/13/20 06:59 06:59 06:59 Intake Total 2000 3813 Output Total 1300 750 Balance 700 3063 Weight 53.6 kg 54.4 kg General appearance: PRESENT: no acute distress, disheveled, thin Head exam: PRESENT: atraumatic Eye exam: PRESENT: PERRLA Mouth exam: PRESENT: moist, tongue midline Teeth exam: PRESENT: poor dentation Neck exam: PRESENT: tracheostomy. ABSENT: carotid bruit, JVD, lymphadenopathy, thyromegaly Respiratory exam: PRESENT: decreased breath sounds Cardiovascular exam: PRESENT: RRR. ABSENT: diastolic murmur, rubs, systolic murmur GI/Abdominal exam: PRESENT: normal bowel sounds, soft, other. ABSENT: distended, guarding, mass, organolmegaly, rebound, tenderness Rectal exam: PRESENT: deferred Extremities exam: PRESENT: full ROM. ABSENT: calf tenderness, clubbing, pedal edema Neurological exam: PRESENT: alert, awake, oriented to person, oriented to place, oriented to time, oriented to situation, CN II-XII grossly intact. ABSENT: motor sensory deficit Psychiatric exam: PRESENT: appropriate affect, normal mood. ABSENT: homicidal ideation, suicidal ideation Skin exam: PRESENT: dry, intact, warm. ABSENT: cyanosis, rash Results Laboratory Results: 05/12/20 06:00 05/12/20 06:00 05/12/20 05/12/20 06:00 06:00 WBC 9.8 RBC 3.20 L Hgb 9.0 L Hct 27.1 L MCV 85 MCH 28.1 MCHC 33.1 RDW 17.1 H Plt Count 338 Seg Neutrophils % 73.2 Sodium 141.6 Potassium 3.2 L Chloride 107 Carbon Dioxide 28 Anion Gap 7 BUN 9 Creatinine 0.89 Est GFR ( Amer) > 60 Glucose 103 Calcium 8.2 L Magnesium 1.6 Total Bilirubin 0.3 AST 9 L Alkaline Phosphatase 125 Total Protein 5.3 L Albumin 2.1 L 05/05/20 08:40 Tracheal Aspirate Gram Stain - Final 05/05/20 08:40 Tracheal Aspirate Sputum Culture - Final Staphylococcus Aureus Stenotrophomonas Maltophilia C.albicans/C.dubliniensis Normal Kathie Absent 05/07/20 12:04 Blood Blood Culture (PCR) - Final Enterococcus Species Staphylococcus Aureus 05/07/20 12:04 Blood Blood Culture - Final E.faecium Vre Staphylococcus Aureus 04/20/20 04/23/20 04/23/20 09:00 01:55 01:55 Creatine Kinase < 20 L CK-MB (CK-2) 2.20 Troponin I < 0.012 0.082 NT-Pro-B Natriuret Pep 33907 H 04/23/20 04/23/20 04/23/20 05:58 08:22 14:50 Creatine Kinase < 20 L < 20 L CK-MB (CK-2) 2.24 Troponin I 0.066 NT-Pro-B Natriuret Pep 04/23/20 14:50 Creatine Kinase CK-MB (CK-2) 2.09 Troponin I 0.057 NT-Pro-B Natriuret Pep Impressions: Modified Barium Swallow 04/26/20 00:01 IMPRESSION: LARYNGEAL PENETRATION WITH THIN BARIUM, WITH TRACE ASPIRATION FROM RESIDUALS. PLEASE SEE SPEECH PATHOLOGIST REPORT FOR OTHER FINDINGS AND RECOMMENDATIONS. Chest X-Ray 05/06/20 07:00 IMPRESSION: Mildly worsened patchy right basilar airspace disease compatible with pneumonia. Stable mild associated right-sided pleural effusion. PICC Line Insertion 05/07/20 00:00 IMPRESSION: SUCCESSFUL PLACEMENT OF A 5 FR DUAL LUMEN 47 CM PICC IN THE LEFT BRACHIOCEPHALIC VEIN. Assessment and Plan - Diagnosis (1) Acute on chronic respiratory failure with hypoxia and hypercapnia Is this a current diagnosis for this admission?: Yes Plan: Likely due to healthcare associated pneumonia or aspiration pneumonia. Sputum culture growing MRSA. Continue vancomycin; Day #7. Aggressive pulmonary toileting, tracheostomy care, monitor for aspiration. 04/30/2020-reviewing records from the previous week reveals sporadic use of ventilator. Continue oxygen supplementation by trach collar to keep saturations greater than or equal to 90%. 05/01/2020-patient actually sounds worse today than yesterday. He is currently on BiPAP. He still does not appreciate the effects that his dysfunctional swallow is having on his overall health. He still believes that he can eat solid foods. Repeat chest x-ray yesterday still showed significant right lower lobe infiltrate. He is continuing to aspirate just based on clinical findings. If he still requires BiPAP I will repeat a chest x-ray tomorrow to look for significant worsening. The patient continues to request a liberal diet. At this point it is impractical and with severe risk. We will continue to discuss with the patient tomorrow of the risks of his wishes to remove the tracheostomy and advance his diet versus the constraints of the proposed treatment plan based on concrete findings. 05/02/2020-less congested today. I reminded him of the need to continue working on a strong cough to clear secretions. The next step would be to change the trach to cuffless. I will do this if he has several more days without respi ratory distress. We will try and keep the cuff deflated as much as possible. 05/03/2020-large volume emesis with obvious aspiration and significant mucus production most likely the result of trial of a meal. This certainly means we will discontinue any trials of change in diet. He is able to remain on trach collar despite this episode. 05/04/2020-patient has been tolerating trach collar consistently. The cuff is deflated and the patient is able to talk. Still with rhonchi on the right. We will hold off on advancing any diet at this time. Continue to attempt to wean with a goal of Decannulating. 05/05/2020-Dr. Mendoza on the trach. Increased mucus production and suctioning requirement. Possible recurrent aspiration pneumonia. Sputum culture has been ordered. 05/06/2020-tracheostomy dressing and strap stained with mucus. Increased secretions and slightly worsened chest x-ray concerning the right lower lobe. White blood cell count is going down. There is a tracheal suction specimen for Gram stain and culture. Currently Gram stain reveals gram-positive cocci in clusters with gram-negative bacilli. The patient seems to be needing more respiratory support today as opposed to trach collar previously. 05/10/2020-ID consult was requested. Patient is receiving ampicillin, vancomycin for presumed VRE under MSSA. Patient is high risk for aspiration. Has a trach. He continued to request oral feeds at this time. Blood cultures growing VRE, staph aureus. Presently on ampicillin, ceftriaxone and started on linezolid. ID consult will be requested on Wednesday. 05/11/20-pulse oxes 100% 6 L. Has a trach. Blood cultures growing VRE E. Started on linezolid. ID consult will be requested on Wednesday. To continue ampicillin and ceftriaxone for MSSA. 05/12/2020-blood cultures are positive for VRE. On linezolid, ampicillin, ceftriaxone. ID consult was requested. (2) Bacteremia due to Enterococcus Is this a current diagnosis for this admission?: Yes Plan: Enterococcus bacteremia sensitive to penicillins and vancomycin. Continue vancomycin; Day #7. Unfortunately, patient continues to refuse repeat blood cultures. Have not been able to determine that patient has cleared his bacteremia in order to establish an EOT date. Repeat Blood cultures remain pending. 04/30/2020-vancomycin through 05/01/2020. We will obtain repeat blood cultures to ensure resolution of bacteremia. 05/01/2020-vancomycin therapy complete. Repeat blood cultures ordered but not collected yet. 05/02/2020-repeat blood cultures to ensure resolution of bacteremia unfortunately not collected as yet. 05/03/2020-blood cultures ordered. Unfortunately not collected as yet. Vancomycin therapy completed. Bacteremia should be resolved. 05/04/2020-unfortunately blood cultures were never ordered. If there is a clinical change I will reorder. Otherwise bacteremia should be considered resolved. 05/10/2020-ID consult was requested. Patient is receiving ampicillin and vancomycin at this time. Blood cultures from 05/09/2020 are negative so far. Cultures from 1020 indicated for staph aureus MSSA, Enterococcus. 05/11/20-blood culture positive for VRE. Started on linezolid. ID will be consulted Wednesday. Patient is afebrile. 05/12/2020-blood cultures came back positive for VRE. On linezolid. Afebrile. (3) Bilateral pneumonia Qualifiers: Pneumonia type: due to unspecified organism Lung location: lower lobe of lung Qualified Code(s): J18.9 - Pneumonia, unspecified organism Is this a current diagnosis for this admission?: Yes Plan: As per #2. 04/30/2020-complete vancomycin therapy as ordered. Repeat chest x-ray to assess progress. Still with very congested breath sounds but this could all be central. 05/01/2020-still with right lower lobe infiltrate. White blood cell count is slightly better but the patient did require BiPAP therapy today. We will continue to monitor closely. We may need to repeat a sputum culture if his clinical status worsens. 05/02/2020-clinically improved. Chest x-ray still shows right lower lobe infiltrate. Breathing more comfortably today. Continue to work towards decannulation. 05/03/2020-antibiotic therapy completed. After today's episode may need to repeat chest x-ray and reassess. 05/04/2020-repeat chest x-ray today shows slight improvement. Antibiotics have been completed. White blood cell count is up to 16 from 11. We will recheck white blood cell count tomorrow. Monitor for other signs of infection including fever and chills or abrupt change in clinical condition 05/05/2020-left lung is actually clear. X-ray reveals slight increase in the right lower lobe opacity. White blood cell count did not decrease. Trying to avoid recurrent antibiotic therapy. 05/06/2020-right lung x-ray appears worse. Clinical exam reveals rhonchi and extremely congested cough that is unchanged from yesterday. Sputum specimen pending. Will need to decide colonization versus acute infection. With his white count improving without antibiotics colonization may be more likely. He continues to aspirate which significantly complicates his respiratory status. 05/10/2020-chest examination bilateral entry was decreased. Few rhonchi at the bases. Are pending at this time. On IV ampicillin, rocephin. Afebrile. 05/11/2020-pulse ox 100% on 6 L. Not in respiratory distress. Comfortably in the bed watching TV. To continue IV ampicillin, ceftriaxone. Started on linezolid for VRE. 05/12/2020-pulse ox is 96% 6 L of oxygen. Comfortably in the bed. He has a trach. (4) Candiduria Is this a current diagnosis for this admission?: Yes Plan: Urine culture positive for Leah albicans. The patient does have an indwelling Varner catheter has been switched. This is likely contamination. Will monitor closely. No specific treatment at this time. Goal is to remove the Varner catheter care. 04/30/2020-consider intermittent clamping of catheter to retrain bladder. Urinary incontinence would be extremely bad for his decubitus ulcers. We will need to decide the best plan of care considering all factors. 05/02/2020-no acute intervention at this time. (5) Diabetes Qualifiers: Diabetes mellitus type: type 2 Is this a current diagnosis for this admission?: Yes Plan: Patient noted to be hypoglycemic due to low p.o. intake. Continue sliding scale insulin, Accu-Chek, hypoglycemia protocol. Adjust insulin dosage as needed. 05/10/2020-latest blood sugar is 231. Plan is to continue insulin sliding scale (6) Malnutrition Qualifiers: Malnutrition type: protein-calorie malnutrition Is this a current diagnosis for this admission?: Yes Plan: Due to low p.o. intake. Unfortunately patient has been having aspiration and has been refusing other modes of nutrition, patient has adamantly refused PEG tube and TPN. On 04/26/2020 patient had a modified barium swallow which and recommendation was for pured diet. Patient still at risk of aspiration. Continue feeds as tolerated, registered dietitian has been consulted. 04/30/2020-modified barium swallow performed last week again revealed pooling and aspiration. Patient refuses PEG tube. We will continue with pured diet. Patient constantly asking for regular food. Will need to review his recent course of aspiration pneumonia and discuss realistic expectations. 05/01/2020-still refusing PEG tube placement. Still high risk of aspiration. Patient is requesting advancing his diet. He may need to review the risks and benefits of advancing his diet. He did have a friend actually bringing him food from outside previously. This is temporarily stopped. Continue current diet orders at this time. 05/02/2020-with his current improvements I agreed to a single trial of chicken salad. We discussed trialing other foodstuffs based on his ability to eat the chicken salad without marked aspiration. He refuses sherbet. He was eating ice cream previously. Consider ice cream with the addition of protein powder. 05/03/2020-considering the difficulties encountered and the patient's unwillingness to accept a PEG tube we may be forced to utilize TPN. I will discuss with the patient tomorrow. 05/05/2020-making no progress. Need to seriously consider TPN. 05/06/2020-because of his aspiration and unwillingness to accept PEG tube the patient's malnutrition continues. At this point I am going to start TPN in an effort to improve his recovery chances. Unfortunately he continues to avoid the interventions that would be most helpful for him. 05/10/2020-discussed the plan about initiation of TPN. Patient adamantly is refusing TPN feeds at this time. (7) Medical non-compliance Is this a current diagnosis for this admission?: Yes Plan: 04/30/2020-has been requesting food that is not on his recommended diet. In addition he has been refusing vital signs earlier today as well as over the last several days. He is not a willing participant in the treatment plan at this time. 05/01/2020-I did not invite a conversation regarding liberalizing his diet and decannulation today as his clinical condition has deteriorated from yesterday. He is still pushing to liberalize his diet and he still wants his tracheostomy out. We will need to have a tiffanie discussion with him. He chooses to be noncompliant. He does not acknowledge the heroic efforts of the medical staff including nursing to help take care of him. I feel he lacks a certain degree of insight. I would be happy to liberalize his diet and decannulate him under the condition that he understands the risk and changes his CODE STATUS to DNR with the stipulation that it is not to change back when he decompensates. He clearly will decompensate based on multiple clinical factors and his history. He is not agreed to that drastic a plan as yet. If he remains a full code then we will need to adhere to that and provide the safest medical treatment possible. Unfortunately he has the right to be noncompliant and disregard our treatment plan. 05/02/2020-continued encouragement regarding consistency of treatment plan. 05/05/2020-very frustrating with regard to patient's continued refusal to accept the entire treatment plan. Aortic blood cultures today to check for infection with the elevated white blood cell count however the patient refused to allow blood cultures to be drawn. 05/06/2020-we will start TPN as an answer to his refusal for certain interventions that I feel would be most helpful. - Plan Summary Summary: Mr. Stalin Sena is a 60-year-old man with HTN, HLD, DM2, CHF and recent prolonged hospitalization for acute respiratory failure secondary to COVID-19 pneumonia s/p tracheostomy placement and discharge to a penitentiary facility for continued rehabilitation. He returned to [facility] on 04/20/20 SOB, and was found to have hypoxemia, tachycardia, hypothermia and hypotension. A right femoral line was urgently placed for IV access. Enterococcus Bacteremia (present on admission) CLABSI and MSSA Bacteremia (diagnosed 05/07/2020) Blood cultures drawn on admission were obtained from the R hand and from the R femoral line; one bottle in each set (peripheral and central line) grew Enterococcus faecalis susceptible to penicillin and ampicillin. He was treated with IV vancomycin (in light of a reported penicillin allergy) for approximately 10 days (04/20-04/30). The patient refused repeat blood cultures until 05/07/20, at which time a PICC line was placed. Two sets of blood cultures were obtained - one set from the PICC line and one set from the R femoral line. After obtaining BCx, the R femoral line was removed on 05/07/2020. Both of these sets of BCx from 05/07 grew bacteria. One set grew GPCs in clusters. The other set grew VRE and presumptive MSSA. Therefore, on 05/08/2020, he was started on treatment with ampicillin and vancomycin (review of his chart raised doubt that he had a true IgE mediated penicillin allergy, as he had previously received several courses of cephalosporins). The patient has since been refusing attempts at placing PIV access in order to be able to remove his PICC line and he also refused to allow repeat BCx on 05/08. He finally allowed repeat BCx to be drawn from the PICC on 05/09. ID was consulted on 05/09 for further recommendations, which include: * Enterococcus bacteremia * This potentially represents a recurrence of the previous Enterococcal faecalis bacteremia, but right now it is not possible to definitively say this. The identification and susceptibilities for the organism are pending. The presence of vancomycin resistance for the new isolate could be acquired in the course of the prior treatment. If this is indeed a recurrence, it raises the question of a persistent focus of infection and re-seeding or failure to clear the bloodstream. * obtain TTE * continue ceftriaxone and ampicillin (ampicillin + Rocephin is an effective alternative regimen to the traditional ampicillin + gentamicin) * Depending on whether or not recurrence of E faecalis bacteremia is unexplained and endocarditis is likely, Rocephin could be continued at the 2 g q12h dose or changed if this higher dose is not required. * The previous E faecalis isolate was susceptible to ampicillin. This remains the case for most vancomycin-resistant E faecalis. Follow culture results for identification of the Enterococcus species and susceptibility results. If the patient becomes hemodynamically unstable or toxic before identification/susceptibilities return, daptomycin can be used at approximately 8-10 mg/kg daily in place of the ampicillin. * MSSA bacteremia in the setting of a PICC line * Source unclear: infected line vs bacteremia secondary to pneumonia (aspiration vs tracheitis) * Isolation of organisms from tracheal aspirate (like any non-sterile site) has to be taken into context, and clinically - WBC count has been stable, no new fever - but he has required an increased amount of oxygen from 6L to 10 L in the past 2 days and has had increased RLL infiltrate on CXR. Leah in tracheal aspirate is usually a colonizer. Stenotrophomonas maltophilia can also be a colonizer and, in the setting of other obviously invasive pathogens, targeting therapy to include it is not necessarily war ranted as long as the patient is improving with treatment aimed at the MSSA and other interventions to reduce aspiration risk and/or optimize volume status. * The PICC line should be removed. It is not recommended to attempt salvaging a line when there is Staph aureus bacteremia due to the risk for failure and relapse. * Would avoid placing a group home line until blood cultures are known to be n egative for at least 48 hours. * obtain TTE * continue Rocephin * Duration of therapy should be, at a minimum, 2 weeks from date of negative blood cultures and removal of PICC line, assuming that no endocarditis is present or metastatic foci of infection. If such is present, duration of treatment should be longer. Acute on chronic respiratory failure with hypoxia and hypercapnia: he had an increase in WBC on and there was concern for possible aspiration event vs tracheitis vs HAP. CXR was repeated on 05/06 and showed increased opacification in the right lung base. He has remained afebrile, on 6-10 L O2 over the duration of his hospitalization. He had a tracheal aspirate on 05/05/20 which showed growth of Leah albicans, Stenotrophomonas maltophilia, and MSSA. He is currently on antibiotics and WBC has normalized. He is a high aspiration risk but he is unwilling to stop eating by mouth and refuses a PEG tube. Severe Protein Calorie Malnutrition: due to poor PO intake. Unfortunately patient has been having aspiration events and also refusing other modes of nutrition. On 04/26/2020 patient had a modified barium swallow and recommendation was for pured diet with aspiration precautions. PICC placed on 05/07 and TPN was briefly initiated until his BCx resulted, and TPN was thus discontinued (due to ongoing bacteremia). Tracheostomy in place: Continue tracheostomy care. Aggressive pulmonary t oileting. Inner cannula is showing evidence of the increased secretions. Because of his insistence on eating PO, he has significantly delaying the possibility of decannulation. Hyperglycemia due to type 2 diabetes mellitus: glucose control is reasonable. His intake does vary. He continues to refuse PEG tube placement. This would in fact significantly improve the trajectory of his recovery. This has been suggested multiple times and he adamantly refuses each time. Will need to adjust treatment as his diet changes. Candiduria: Urine culture positive for Leah albicans. The patient does have an indwelling Varner catheter which has been exchanged this admission. Chronic Urinary Retention: exchange Varner catheter every 4 weeks to prevent CAUTI. Anemia of Chronic Disease: hemoglobin has been 7-8 since January 2020. Ferritin elevated (not iron deficiency). He has no evidence of active blood loss. Critical illness myopathy: he will need ongoing PT and OT due to the severe deconditioning from his prolonged illness and prolonged hospitalizations. Medical non-adherence: he has been requesting food that is not on his recommended diet. He is, at times, a willing participant in the treatment plan but, at other times, lacks insight and has poor judgment. He remains a FULL CODE and does not wish to change his code status, despite ongoing dysphagia, oral intake and high risk for future aspiration episodes. We discussed at length today the risk of morbidity and mortality due to bacteremia, the importance of antibiotics, the importance of removing his PICC line and allowing us to place PIVs, etc. He is bargaining and stating that he will accept certain medications and medical interventions only if he can get IV opioids for treatment of his chronic MSK pain. We agreed that I would change his oral oxycodone dosage to an equivalent IV morphine dosage, but that he can no longer decline these medical interventions and he is agreeable at this time. Discussed with RN. - Time Anticipated Discharge Disposition: Custodial Facility Anticipated Discharge Timeframe: within 72 hours
[2020-05-12] MEDS: LINEZOLID 600 MG/300 ML RTUPB IV SCH ×2 (09:52→22:55)
[2020-05-12] MEDS: LACTULOSE SYRUP 20 GM/30 ML UDCUP PO SCH ×2 (09:57→22:49)
[2020-05-12] MEDS: ENOXAPARIN SODIUM INJ 40 MG/0.4 ML DISP.SYRIN SUBCUT SCH (09:57)
[2020-05-12] MEDS: LISINOPRIL 5 MG TABLET PO SCH ×2 (09:58→22:57)
[2020-05-12] MEDS: THIAMINE HCL 100 MG TABLET PO SCH (09:58)
[2020-05-12] MEDS: METOPROLOL SUCCINATE 25 MG TAB.SR.24H PO SCH (09:58)
[2020-05-12] MEDS: NORMAL SALINE 10 ML SDV (SCHEDULED) IV SCH ×2 (09:58→22:50)
[2020-05-12] MEDS: SENNOSIDES/DOCUSATE 8.6-50 MG 1 EACH TABLET PO SCH (09:58)
[2020-05-12] MEDS: ONDANSETRON HCL INJ/PF 4 MG/2 ML SDV IV PRN ×2 (12:19→20:23)
[2020-05-13] MEDS: MORPHINE SULFATE 10 MG/ML INJ IV PRN ×6 (00:21→20:35)
[2020-05-13] MEDS: DIPHENHYDRAMINE HCL 50 MG/ML VIAL IV PRN ×6 (00:22→20:35)
[2020-05-13] MEDS: INSULIN REG, HUMAN 100 UNIT/ML 3 ML VIAL (PYX) SUBCUT SCH ×4 (00:45→17:20)
[2020-05-13] MEDS: NITROGLYCERIN 2% OINTMENT 1 GM PACKET TP SCH ×4 (00:45→17:20)
[2020-05-13] MEDS: AMPICILLIN SODIUM 2 GM in NORMAL SALINE 100 ML IV SCH ×6 (00:55→20:38)
[2020-05-13] MEDS: ONDANSETRON HCL INJ/PF 4 MG/2 ML SDV IV PRN ×2 (03:07→20:35)
[2020-05-13] MEDS: CEFTRIAXONE 2 GM/D5W RTU 2 GM/50 ML RTUPB IV SCH ×2 (05:59→17:23)
[2020-05-13] MEDS: PROMETHAZINE HCL INJ 25 MG/1 ML VIAL IV PRN ×2 (07:37→15:56)
[2020-05-13] MEDS: PHOSPHORUS #1 250 MG TABLET PO SCH ×3 (07:46→16:06)
--- NOTE | 2020-05-13 08:39 | PDOC PROGRESS REPORT ---
Subjective Progress Note for:: 05/13/20 Subjective:: 05/10/2020-patient is comfortable in the bed communicating well. Discussed the need for TPN at this time. Patient wants to eat. I tried to explain to him he is a very high risk for aspiration pneumonia. Patient does not want to TPN at this time. He requested me to leave the room. 05/11/2020-patient is refusing to talk to me. Try to discuss with him about TPN again he is refused to talk to me. He does not want me to examine him. Comfortably in the bed watching TV. Microbiology lab called me and told me blood culture is growing VRE. Started on linezolid diet. Patient also has MSSA. Receiving ampicillin, ceftriaxone. Afebrile. ID will be consulted again on Wednesday. 05/12/20-comfortably in the bed communicating well. Not in distress. Refusing to have a TPN. Wants to eat tried to explain to him that he is high risk for aspiration still requesting for oral feeds. Psych consult was requested for capacity exam it will be done tomorrow. 05/13/2020-comfortably in the bed watching TV. Denies any problems. Again discussed about the TPN patient is not interested in starting TPN at this time. Reason For Visit: ACUTE HYPOXIC RESPIRATORY FAILURE, HYPOTENSION Physical Exam Vital Signs: Temp Pulse Resp BP Pulse Ox 98.1 F 83 14 148/79 H 100 05/12/20 20:50 05/13/20 02:00 05/13/20 00:00 05/12/20 20:50 05/13/20 00:00 Intake & Output 05/12/20 05/13/20 05/14/20 06:59 06:59 06:59 Intake Total 3813 2200 Output Total 750 3075 Balance 3063 -875 Weight 54.4 kg 54.3 kg General appearance: PRESENT: no acute distress, cooperative, thin Head exam: PRESENT: atraumatic Eye exam: PRESENT: PERRLA Mouth exam: PRESENT: neck supple Neck exam: PRESENT: tracheostomy, other - Neck collar in place. Respiratory exam: PRESENT: decreased breath sounds Cardiovascular exam: PRESENT: RRR. ABSENT: diastolic murmur, rubs, systolic murmur GI/Abdominal exam: PRESENT: normal bowel sounds, soft. ABSENT: distended, guarding, mass, organolmegaly, rebound, tenderness Rectal exam: PRESENT: deferred Extremities exam: PRESENT: full ROM. ABSENT: calf tenderness, clubbing, pedal edema Neurological exam: PRESENT: alert, awake, oriented to person, oriented to place, oriented to time, oriented to situation, CN II-XII grossly intact. ABSENT: motor sensory deficit Psychiatric exam: PRESENT: appropriate affect, normal mood. ABSENT: homicidal ideation, suicidal ideation Results Laboratory Results: 05/12/20 06:00 05/12/20 06:00 04/20/20 04/23/20 04/23/20 09:00 01:55 01:55 Creatine Kinase < 20 L CK-MB (CK-2) 2.20 Troponin I < 0.012 0.082 NT-Pro-B Natriuret Pep 12493 H 04/23/20 04/23/20 04/23/20 05:58 08:22 14:50 Creatine Kinase < 20 L < 20 L CK-MB (CK-2) 2.24 Troponin I 0.066 NT-Pro-B Natriuret Pep 04/23/20 14:50 Creatine Kinase CK-MB (CK-2) 2.09 Troponin I 0.057 NT-Pro-B Natriuret Pep Impressions: Modified Barium Swallow 04/26/20 00:01 IMPRESSION: LARYNGEAL PENETRATION WITH THIN BARIUM, WITH TRACE ASPIRATION FROM RESIDUALS. PLEASE SEE SPEECH PATHOLOGIST REPORT FOR OTHER FINDINGS AND RECOMMENDATIONS. Chest X-Ray 05/06/20 07:00 IMPRESSION: Mildly worsened patchy right basilar airspace disease compatible with pneumonia. Stable mild associated right-sided pleural effusion. PICC Line Insertion 05/07/20 00:00 IMPRESSION: SUCCESSFUL PLACEMENT OF A 5 FR DUAL LUMEN 47 CM PICC IN THE LEFT BRACHIOCEPHALIC VEIN. Assessment and Plan - Diagnosis (1) Acute on chronic respiratory failure with hypoxia and hypercapnia Is this a current diagnosis for this admission?: Yes Plan: Likely due to healthcare associated pneumonia or aspiration pneumonia. Sputum culture growing MRSA. Continue vancomycin; Day #7. Aggressive pulmonary toileting, tracheostomy care, monitor for aspiration. 04/30/2020-reviewing records from the previous week reveals sporadic use of ventilator. Continue oxygen supplementation by trach collar to keep saturations greater than or equal to 90%. 05/01/2020-patient actually sounds worse today than yesterday. He is currently on BiPAP. He still does not appreciate the effects that his dysfunctional swallow is having on his overall health. He still believes that he can eat solid foods. Repeat chest x-ray yesterday still showed significant right lower lobe infiltrate. He is continuing to aspirate just based on clinical findings. If he still requires BiPAP I will repeat a chest x-ray tomorrow to look for significant worsening. The patient continues to request a liberal diet. At this point it is impractical and with severe risk. We will continue to discuss with the patient tomorrow of the risks of his wishes to remove the tracheostomy and advance his diet versus the constraints of the proposed treatment plan based on concrete findings. 05/02/2020-less congested today. I reminded him of the need to continue working on a strong cough to clear secretions. The next step would be to change the trach to cuffless. I will do this if he has several more days without respiratory distress. We will try and keep the cuff deflated as much as possible. 05/03/2020-large volume emesis with obvious aspiration and significant mucus production most likely the result of trial of a meal. This certainly means we will discontinue any trials of change in diet. He is able to remain on trach collar despite this episode. 05/04/2020-patient has been tolerating trach collar consistently. The cuff is deflated and the patient is able to talk. Still with rhonchi on the right. We will hold off on advancing any diet at this time. Continue to attempt to wean with a goal of Decannulating. 05/05/2020-Dr. Mendoza on the trach. Increased mucus production and suctioning r equirement. Possible recurrent aspiration pneumonia. Sputum culture has been ordered. 05/06/2020-tracheostomy dressing and strap stained with mucus. Increased secretions and slightly worsened chest x-ray concerning the right lower lobe. White blood cell count is going down. There is a tracheal suction specimen for Gram stain and culture. Currently Gram stain reveals gram-positive cocci in cl usters with gram-negative bacilli. The patient seems to be needing more respiratory support today as opposed to trach collar previously. 05/10/2020-ID consult was requested. Patient is receiving ampicillin, vancomycin for presumed VRE under MSSA. Patient is high risk for aspiration. Has a trach. He continued to request oral feeds at this time. Blood cultures growing VRE, staph aureus. Presently on ampicillin, ceftriaxone and started on linezolid. ID consult will be requested on Wednesday. 05/11/20-pulse oxes 100% 6 L. Has a trach. Blood cultures growing VRE E. Started on linezolid. ID consult will be requested on Wednesday. To continue ampicillin and ceftriaxone for MSSA. 05/12/2020-blood cultures are positive for VRE. On linezolid, ampicillin, ceftriaxone. ID consult was requested. 05/13/20-patient is receiving linezolid, ampicillin, ceftriaxone. Follow-up recommendations from ID's pending. (2) Bacteremia due to Enterococcus Is this a current diagnosis for this admission?: Yes Plan: Enterococcus bacteremia sensitive to penicillins and vancomycin. Continue vancomycin; Day #7. Unfortunately, patient continues to refuse repeat blood cultures. Have not been able to determine that patient has cleared his bacteremia in order to establish an EOT date. Repeat Blood cultures remain pending. 04/30/2020-vancomycin through 05/01/2020. We will obtain repeat blood cultures to ensure resolution of bacteremia. 05/01/2020-vancomycin therapy complete. Repeat blood cultures ordered but not collected yet. 05/02/2020-repeat blood cultures to ensure resolution of bacteremia unfortunately not collected as yet. 05/03/2020-blood cultures ordered. Unfortunately not collected as yet. Vancomycin therapy completed. Bacteremia should be resolved. 05/04/2020-unfortunately blood cultures were never ordered. If there is a clinical change I will reorder. Otherwise bacteremia should be considered resolved. 05/10/2020-ID consult was requested. Patient is receiving ampicillin and vancomycin at this time. Blood cultures from 05/09/2020 are negative so far. Cultures from 1020 indicated for staph aureus MSSA, Enterococcus. 05/11/20-blood culture positive for VRE. Started on linezolid. ID will be con sulted Wednesday. Patient is afebrile. 05/12/2020-blood cultures came back positive for VRE. On linezolid. Afebrile. 05/13/2020-patient is saving linezolid, ampicillin, vancomycin. ID on board. (3) Bilateral pneumonia Qualifiers: Pneumonia type: due to unspecified organism Lung location: lower lobe of lung Qualified Code(s): J18.9 - Pneumonia, unspecified organism Is this a current diagnosis for this admission?: Yes Plan: As per #2. 04/30/2020-complete vancomycin therapy as ordered. Repeat chest x-ray to assess progress. Still with very congested breath sounds but this could all be central. 05/01/2020-still with right lower lobe infiltrate. White blood cell count is slightly better but the patient did require BiPAP therapy today. We will continue to monitor closely. We may need to repeat a sputum culture if his clinical status worsens. 05/02/2020-clinically improved. Chest x-ray still shows right lower lobe infiltrate. Breathing more comfortably today. Continue to work towards decannulation. 05/03/2020-antibiotic therapy completed. After today's episode may need to repeat chest x-ray and reassess. 05/04/2020-repeat chest x-ray today shows slight improvement. Antibiotics have been completed. White blood cell count is up to 16 from 11. We will recheck white blood cell count tomorrow. Monitor for other signs of infection including fever and chills or abrupt change in clinical condition 05/05/2020-left lung is actually clear. X-ray reveals slight increase in the right lower lobe opacity. White blood cell count did not decrease. Trying to avoid recurrent antibiotic therapy. 05/06/2020-right lung x-ray appears worse. Clinical exam reveals rhonchi and extremely congested cough that is unchanged from yesterday. Sputum specimen pending. Will need to decide colonization versus acute infection. With his white count improving without antibiotics colonization may be more likely. He continues to aspirate which significantly complicates his respiratory status. 05/10/2020-chest examination bilateral entry was decreased. Few rhonchi at the bases. Are pending at this time. On IV ampicillin, rocephin. Afebrile. 05/11/2020-pulse ox 100% on 6 L. Not in respiratory distress. Comfortably in the bed watching TV. To continue IV ampicillin, ceftriaxone. Started on linezolid for VRE. 05/12/2020-pulse ox is 96% 6 L of oxygen. Comfortably in the bed. He has a trach. (4) Candiduria Is this a current diagnosis for this admission?: Yes Plan: Urine culture positive for Leah albicans. The patient does have an indwelling Varner catheter has been switched. This is likely contamination. Will monitor closely. No specific treatment at this time. Goal is to remove the Varner catheter care. 04/30/2020-consider intermittent clamping of catheter to retrain bladder. Urinary incontinence would be extremely bad for his decubitus ulcers. We will need to decide the best plan of care considering all factors. 05/02/2020-no acute intervention at this time. (5) Diabetes Qualifiers: Diabetes mellitus type: type 2 Is this a current diagnosis for this admission?: Yes Plan: Patient noted to be hypoglycemic due to low p.o. intake. Continue sliding scale insulin, Accu-Chek, hypoglycemia protocol. Adjust insulin dosage as needed. 05/10/2020-latest blood sugar is 231. Plan is to continue insulin sliding scale 05/13/2020-latest blood sugar is 115. Plan is to continue insulin sliding scale coverage. (6) Malnutrition Qualifiers: Malnutrition type: protein-calorie malnutrition Is this a current diagnosis for this admission?: Yes Plan: Due to low p.o. intake. Unfortunately patient has been having aspiration and has been refusing other modes of nutrition, patient has adamantly refused PEG tube and TPN. On 04/26/2020 patient had a modified barium swallow which and recommendation was for pured diet. Patient still at risk of aspiration. Continue feeds as tolerated, registered dietitian has been consulted. 04/30/2020-modified barium swallow performed last week again revealed pooling and aspiration. Patient refuses PEG tube. We will continue with pured diet. Patient constantly asking for regular food. Will need to review his recent course of aspiration pneumonia and discuss realistic expectations. 05/01/2020-still refusing PEG tube placement. Still high risk of aspiration. Patient is requesting advancing his diet. He may need to review the risks and benefits of advancing his diet. He did have a friend actually bringing him food from outside previously. This is temporarily stopped. Continue current diet orders at this time. 05/02/2020-with his current improvements I agreed to a single trial of chicken salad. We discussed trialing other foodstuffs based on his ability to eat the chicken salad without marked aspiration. He refuses sherbet. He was eating ice cream previously. Consider ice cream with the addition of protein powder. 05/03/2020-considering the difficulties encountered and the patient's unwillingness to accept a PEG tube we may be forced to utilize TPN. I will discuss with the patient tomorrow. 05/05/2020-making no progress. Need to seriously consider TPN. 05/06/2020-because of his aspiration and unwillingness to accept PEG tube the patient's malnutrition continues. At this point I am going to start TPN in an effort to improve his recovery chances. Unfortunately he continues to avoid the interventions that would be most helpful for him. 05/10/2020-discussed the plan about initiation of TPN. Patient adamantly is refusing TPN feeds at this time. (7) Medical non-compliance Is this a current diagnosis for this admission?: Yes Plan: 04/30/2020-has been requesting food that is not on his recommended diet. In addition he has been refusing vital signs earlier today as well as over the last several days. He is not a willing participant in the treatment plan at this time. 05/01/2020-I did not invite a conversation regarding liberalizing his diet and decannulation today as his clinical condition has deteriorated from yesterday. He is still pushing to liberalize his diet and he still wants his tracheostomy out. We will need to have a tiffanie discussion with him. He chooses to be nonc ompliant. He does not acknowledge the heroic efforts of the medical staff including nursing to help take care of him. I feel he lacks a certain degree of insight. I would be happy to liberalize his diet and decannulate him under the condition that he understands the risk and changes his CODE STATUS to DNR with the stipulation that it is not to change back when he decompensates. He clearly will decompensate based on multiple clinical factors and his history. He is not agreed to that drastic a plan as yet. If he remains a full code then we will need to adhere to that and provide the safest medical treatment possible. Unfortunately he has the right to be noncompliant and disregard our treatment plan. 05/02/2020-continued encouragement regarding consistency of treatment plan. 05/05/2020-very frustrating with regard to patient's continued refusal to accept the entire treatment plan. Aortic blood cultures today to check for infection with the elevated white blood cell count however the patient refused to allow blood cultures to be drawn. 05/06/2020-we will start TPN as an answer to his refusal for certain interventions that I feel would be most helpful. - Plan Summary Summary: Mr. Stalin Sena is a 60-year-old man with HTN, HLD, DM2, CHF and recent prolonged hospitalization for acute respiratory failure secondary to COVID-19 pneumonia s/p tracheostomy placement and discharge to a fpc facility for continued rehabilitation. He returned to [facility] on 04/20/20 SOB, and was found to have hypoxemia, tachycardia, hypothermia and hypotension. A right femoral line was urgently placed for IV access. Enterococcus Bacteremia (present on admission) CLABSI and MSSA Bacteremia (diagnosed 05/07/2020) Blood cultures drawn on admission were obtained from the R hand and from the R femoral line; one bottle in each set (peripheral and central line) grew Enterococcus faecalis susceptible to penicillin and ampicillin. He was treated with IV vancomycin (in light of a reported penicillin allergy) for approximately 10 days (04/20-04/30). The patient refused repeat blood cultures until 05/07/20, at which time a PICC line was placed. Two sets of blood cultures were obtained - one set from the PICC line and one set from the R femoral line. After obtaining BCx, the R femoral line was removed on 05/07/2020. Both of these sets of BCx from 05/07 grew bacteria. One set grew GPCs in clusters. The other set grew VRE and presumptive MSSA. Therefore, on 05/08/2020, he was started on treatment with ampicillin and vancomycin (review of his chart raised doubt that he had a true IgE mediated penicillin allergy, as he had previously received several courses of cephalosporins). The patient has since been refusing attempts at placing PIV access in order to be able to remove his PICC line and he also refused to allow repeat BCx on 05/08. He finally allowed repeat BCx to be drawn from the PICC on 05/09. ID was consulted on 05/09 for further recommendations, which include: * Enterococcus bacteremia * This potentially represents a recurrence of the previous Enterococcal faecalis bacteremia, but right now it is not possible to definitively say this. The identification and susceptibilities for the organism are pending. The presence of vancomycin resistance for the new isolate could be acquired in the course of the prior treatment. If this is indeed a recurrence, it raises the question of a persistent focus of infection and re-seeding or failure to clear the bloodstream. * obtain TTE * continue ceftriaxone and ampicillin (ampicillin + Rocephin is an effective alternative regimen to the traditional ampicillin + gentamicin) * Depending on whether or not recurrence of E faecalis bacteremia is unexplained and endocarditis is likely, Rocephin could be continued at the 2 g q12h dose or changed if this higher dose is not required. * The previous E faecalis isolate was susceptible to ampicillin. This remains the case for most vancomycin-resistant E faecalis. Follow culture results for identification of the Enterococcus species and susceptibility results. If the patient becomes hemodynamically unstable or toxic before identification/susceptibilities return, daptomycin can be used at approximately 8-10 mg/kg daily in place of the ampicillin. * MSSA bacteremia in the setting of a PICC line * Source unclear: infected line vs bacteremia secondary to pneumonia (aspiration vs tracheitis) * Isolation of organisms from tracheal aspirate (like any non-sterile site) has to be taken into context, and clinically - WBC count has been stable, no new fever - but he has required an increased amount of oxygen from 6L to 10 L in the past 2 days and has had increased RLL infiltrate on CXR. Leah in tracheal aspirate is usually a colonizer. Stenotrophomonas maltophilia can also be a colonizer and, in the setting of other obviously invasive pathogens, targeting therapy to include it is not necessarily warranted as long as the patient is improving with treatment aimed at the MSSA and other interventions to reduce aspiration risk and/or optimize volume status. * The PICC line should be removed. It is not recommended to attempt salvaging a line when there is Staph aureus bacteremia due to the risk for failure and relapse. * Would avoid placing a watermelon inspector line until blood cultures are known to be negative for at least 48 hours. * obtain TTE * continue Rocephin * Duration of therapy should be, at a minimum, 2 weeks from date of negative blood cultures and removal of PICC line, assuming that no endocarditis is present or metastatic foci of infection. If such is present, duration of treatment should be longer. Acute on chronic respiratory failure with hypoxia and hypercapnia: he had an increase in WBC on 05/04- and there was concern for possible aspiration event vs tracheitis vs HAP. CXR was repeated on 05/06 and showed increased opacification in the right lung base. He has remained afebrile, on 6-10 L O2 over the duration of his hospitalization. He had a tracheal aspirate on 05/05/20 which showed growth of Leah albicans, Stenotrophomonas maltophilia, and MSSA. He is currently on antibiotics and WBC has normalized. He is a high aspiration risk but he is unwilling to stop eating by mouth and refuses a PEG tube. Severe Protein Calorie Malnutrition: due to poor PO intake. Unfortunately patient has been having aspiration events and also refusing other modes of nutrition. On 04/26/2020 patient had a modified barium swallow and recommendation was for pured diet with aspiration precautions. PICC placed on 05/07 and TPN was briefly initiated until his BCx resulted, and TPN was thus discontinued (due to ongoing bacteremia). Tracheostomy in place: Continue tracheostomy care. Aggressive pulmonary toilet ing. Inner cannula is showing evidence of the increased secretions. Because of his insistence on eating PO, he has significantly delaying the possibility of decannulation. Hyperglycemia due to type 2 diabetes mellitus: glucose control is reasonable. His intake does vary. He continues to refuse PEG tube placement. This would in fact significantly improve the trajectory of his recovery. This has been suggested multiple times and he adamantly refuses each time. Will need to adjust treatment as his diet changes. Candiduria: Urine culture positive for Leah albicans. The patient does have an indwelling Varner catheter which has been exchanged this admission. Chronic Urinary Retention: exchange Varner catheter every 4 weeks to prevent CAUTI. Anemia of Chronic Disease: hemoglobin has been 7-8 since January 2020. Ferritin elevated (not iron deficiency). He has no evidence of active blood loss. Critical illness myopathy: he will need ongoing PT and OT due to the severe deconditioning from his prolonged illness and prolonged hospitalizations. Medical non-adherence: he has been requesting food that is not on his recommended diet. He is, at times, a willing participant in the treatment plan but, at other times, lacks insight and has poor judgment. He remains a FULL CODE and does not wish to change his code status, despite ongoing dysphagia, oral intake and high risk for future aspiration episodes. We discussed at length today the risk of morbidity and mortality due to bacteremia, the importance of antibiotics, the importance of removing his PICC line and allowing us to place PIVs, etc. He is bargaining and stating that he will accept certain medications and medical interventions only if he can get IV opioids for treatment of his chronic MSK pain. We agreed that I would change his oral oxycodone dosage to an equivalent IV morphine dosage, but that he can no longer decline these medical interventions and he is agreeable at this time. Discussed with RN. - Time Anticipated Discharge Disposition: [facility] Facility Anticipated Discharge Timeframe: within 72 hours
[2020-05-13] MEDS: LACTULOSE SYRUP 20 GM/30 ML UDCUP PO SCH (10:10)
[2020-05-13] MEDS: NORMAL SALINE 10 ML SDV (SCHEDULED) IV SCH (10:10)
[2020-05-13] MEDS: ENOXAPARIN SODIUM INJ 40 MG/0.4 ML DISP.SYRIN SUBCUT SCH (10:10)
[2020-05-13] MEDS: METOPROLOL SUCCINATE 25 MG TAB.SR.24H PO SCH (10:11)
[2020-05-13] MEDS: THIAMINE HCL 100 MG TABLET PO SCH (10:11)
[2020-05-13] MEDS: LISINOPRIL 5 MG TABLET PO SCH ×2 (10:11→21:17)
[2020-05-13] MEDS: SENNOSIDES/DOCUSATE 8.6-50 MG 1 EACH TABLET PO SCH (10:11)
[2020-05-13] MEDS: LINEZOLID 600 MG/300 ML RTUPB IV SCH ×2 (10:13→21:16)
[2020-05-13] MEDS: IPRATROPIUM/ALBUTEROL 0.5-2.5 MG/3 ML AMPUL NEB PRN (11:21)
[2020-05-13] MEDS: DEXTROSE 5%-NORMAL SALINE 1,000 ML IV PRN (16:02)
[2020-05-14] MEDS: LACTULOSE SYRUP 20 GM/30 ML UDCUP PO SCH ×3 (01:22→21:30)
[2020-05-14] MEDS: PHOSPHORUS #1 250 MG TABLET PO SCH ×6 (01:22→21:30)
[2020-05-14] MEDS: NITROGLYCERIN 2% OINTMENT 1 GM PACKET TP SCH ×4 (01:23→17:50)
[2020-05-14] MEDS: INSULIN REG, HUMAN 100 UNIT/ML 3 ML VIAL (PYX) SUBCUT SCH ×4 (01:24→17:42)
[2020-05-14] MEDS: AMPICILLIN SODIUM 2 GM in NORMAL SALINE 100 ML IV SCH ×4 (01:25→12:54)
[2020-05-14] MEDS: NORMAL SALINE 10 ML SDV (SCHEDULED) IV SCH ×2 (01:26→10:06)
[2020-05-14] MEDS: MORPHINE SULFATE 10 MG/ML INJ IV PRN ×3 (04:34→22:49)
[2020-05-14] MEDS: DIPHENHYDRAMINE HCL 50 MG/ML VIAL IV PRN ×3 (04:34→22:49)
[2020-05-14] MEDS: CEFTRIAXONE 2 GM/D5W RTU 2 GM/50 ML RTUPB IV SCH (06:21)
--- NOTE | 2020-05-14 09:21 | Progress Note ---
Provider Note Provider Note: [facility] ID Telephone Advice Consultation Patient not seen or examined. Mr. Sena's case was previously reviewed and evaluated by Dr. Huynh, please see her previous note. This is a 60-year-old man DM2, HTN, CHF, CKD and more recently COVID-19 for which he was admitted to the hospital and had a prolonged hospital stay resulting in tracheostomy placement. During that admission he had a femoral line. He had Enterococcus faecalis bacteremia, positive cultures from the line and peripheral. He received 10 days of therapy with vancomycin. He also had aspiration pneumonia at that time as well with tracheal aspirate positive for MRSA. He was now readmitted with sepsis. New PICC line was placed on 05/07. New cultures from the PICC grew VRE and MSSA. Tracheal aspirate positive for MSSA, Stenotrophomonas and Leah albicans. He is currently on linezolid, ampicillin and ceftriaxone. He has been afebrile, HD stable. Oxygen requirement decreased from 10L to 6L. Chest imaging with right basilar opacity and small effusion. ID reconsulted for recommendations. Allergies: iodine Allergy (Verified 01/23/20 23:19) shellfish derived Allergy (Verified 01/23/20 23:19) Sulfa (Sulfonamide Antibiotics) Allergy (Verified 01/23/20 23:19) Vital Signs: Temp Pulse Resp BP Pulse Ox 97.3 F 91 19 151/92 H 100 05/13/20 16:38 05/14/20 07:00 05/14/20 04:20 05/13/20 16:38 05/14/20 04:20 Intake & Output 05/13/20 05/14/20 05/15/20 06:59 06:59 06:59 Intake Total 2200 2300 Output Total 307 3165 Balance -875 -865 Weight 54.3 kg 55.6 kg Weight/Height Weight 55.6 kg Height 5 ft 7 in Laboratories: 05/12/20 06:00 05/12/20 06:00 MCV 85 fl (80-97) 05/12/20 06:00 MCH 28.1 pg (27.0-33.4) 05/12/20 06:00 MCHC 33.1 g/dL (32.0-36.0) 05/12/20 06:00 RDW 17.1 % (11.5-14.0) H 05/12/20 06:00 Seg Neutrophils % 73.2 % (42-78) 05/12/20 06:00 Retic Count (auto) 0.86 % (0.66-2.85) 05/07/20 12:04 Carbonic Acid 1.20 mmol/L (1.05-1.35) 04/22/20 12:20 HCO3/H2CO3 Ratio 22:1 04/22/20 12:20 ABG pH 7.45 (7.35-7.45) 04/22/20 12:20 ABG pCO2 39.9 mmHg (35-45) 04/22/20 12:20 ABG pO2 61.3 mmHg (80-100) L 04/22/20 12:20 ABG HCO3 27.0 mmol/L (20-24) H 04/22/20 12:20 ABG O2 Saturation 92.5 % (94-98) L 04/22/20 12:20 ABG Base Excess 2.9 mmol/L 04/22/20 12:20 FiO2 100% 04/22/20 12:20 Chloride 107 mmol/L (98-107) 05/12/20 06:00 Carbon Dioxide 28 mmol/L (22-30) 05/12/20 06:00 Anion Gap 7 (5-19) 05/12/20 06:00 Est GFR ( Amer) > 60 (>60) 05/12/20 06:00 Glucose 103 mg/dL (75-110) 05/12/20 06:00 Lactic Acid 0.7 mmol/L (0.7-2.1) 05/07/20 12:04 Calcium 8.2 mg/dL (8.4-10.2) L 05/12/20 06:00 Phosphorus 3.2 mg/dL (2.5-4.5) 05/08/20 14:38 Magnesium 1.6 mg/dL (1.6-2.3) 05/12/20 06:00 Iron < 10.1 ug/dL (49-181) L 05/07/20 12:04 TIBC 163 ug/dL (250-450) L 05/07/20 12:04 Ferritin 475.00 ng/mL (17.9-464.0) H 05/07/20 12:04 Total Bilirubin 0.3 mg/dL (0.2-1.3) 05/12/20 06:00 AST 9 U/L (17-59) L 05/12/20 06:00 Alkaline Phosphatase 125 U/L (38-126) 05/12/20 06:00 Total Protein 5.3 g/dL (6.3-8.2) L 05/12/20 06:00 Albumin 2.1 g/dL (3.5-5.0) L 05/12/20 06:00 Prealbumin 5.5 mg/dL (17.6-36.0) L 05/08/20 14:38 Triglycerides 89 mg/dL (<150) 05/07/20 12:04 Cholesterol 119.50 mg/dL (0-200) 05/07/20 12:04 LDL Cholesterol Direct 56 mg/dL (<100) 05/07/20 12:04 VLDL Cholesterol 18.0 mg/dL (10-31) 05/07/20 12:04 HDL Cholesterol 37 mg/dL (>40) L 05/07/20 12:04 Lipase < 10.0 U/L (23-300) L 04/20/20 09:00 Vitamin B12 860.0 pg/mL (239-931) 05/07/20 12:04 Folate 6.55 ng/mL (>2.76) 05/07/20 12:04 Urine Color DARRICK 04/20/20 06:46 Urine Appearance CLOUDY 04/20/20 06:46 Urine pH 5.0 (5.0-9.0) 04/20/20 06:46 Ur Specific [place] 1.020 04/20/20 06:46 Urine Protein 100 mg/dL (NEGATIVE) H 04/20/20 06:46 Urine Glucose (UA) NEGATIVE mg/dL (NEGATIVE) 04/20/20 06:46 Urine Ketones NEGATIVE mg/dL (NEGATIVE) 04/20/20 06:46 Urine Blood SMALL (NEGATIVE) H 04/20/20 06:46 Urine Nitrite NEGATIVE (NEGATIVE) 04/20/20 06:46 Ur Leukocyte Esterase LARGE (NEGATIVE) H 04/20/20 06:46 Urine WBC (Auto) >182 /HPF 04/20/20 06:46 Urine RBC (Auto) 59 /HPF 04/20/20 06:46 Blood Type A POSITIVE 04/21/20 09:02 Antibody Screen NEGATIVE 04/21/20 09:02 04/20/20 04/23/20 04/23/20 09:00 01:55 01:55 Creatine Kinase < 20 L CK-MB (CK-2) 2.20 Troponin I < 0.012 0.082 NT-Pro-B Natriuret Pep [id number] H 04/23/20 04/23/20 04/23/20 05:58 08:22 14:50 Creatine Kinase < 20 L < 20 L CK-MB (CK-2) 2.24 Troponin I 0.066 NT-Pro-B Natriuret Pep 04/23/20 14:50 Creatine Kinase CK-MB (CK-2) 2.09 Troponin I 0.057 NT-Pro-B Natriuret Pep Microbiology: Blood cultures: 04/20/20 Enterococcus faecalis 05/07/20 MSSA, VRE 05/09 NGTD Respiratory Cultures: 04/21 MRSA 05/05 MSSA, Stenotrophomonas, Leah albicans Radiology: Modified Barium Swallow 04/26/20 00:01 IMPRESSION: LARYNGEAL PENETRATION WITH THIN BARIUM, WITH TRACE ASPIRATION FROM RESIDUALS. PLEASE SEE SPEECH PATHOLOGIST REPORT FOR OTHER FINDINGS AND SHERINE MMENDATIONS. Chest X-Ray 05/06/20 07:00 IMPRESSION: Mildly worsened patchy right basilar airspace disease compatible with pneumonia. Stable mild associated right-sided pleural effusion. PICC Line Insertion 05/07/20 00:00 IMPRESSION: SUCCESSFUL PLACEMENT OF A 5 FR DUAL LUMEN 47 CM PICC IN THE LEFT BRACHIOCEPHALIC VEIN. Assessment and Recommendations: Patient chronically ill, debilitated and with COVID-19 sequela presenting with RLL pneumonia, VRE and MSSA bacteremia. Pneumonia is likely post viral superimposed bacterial pneumonia, with previously isolated MRSA and now MSSA with Stenotrophomonas and Leah spp. Stenotrophomonas and Leah are common colonizers especially in the setting of tracheostomy. Lung opacity seems to be worse compared to previous admission, but stable now, with improved oxygen requirement. Will recommend to continue linezolid for this as it will cover both MRSA and MSSA. Duration of therapy for this will depend on clinical response and resolution of infiltrate usually 10-14 days. In terms of S tenotrophomonas, it seems to be a colonizer as he is stable without treating this organism. If there is any clinical deterioration in terms of respiratory status, would add levofloxacin. For VRE and MSSA bacteremia, will recommend daptomycin 8-10 mg/kg daily. He cleared the bacteremia with Enterococcus faecalis and now has VRE. Linezolid is bacteriostatic, therefore not recommended for MSSA or VRE bacteremia as first line. TTE is recommended to rule out endocarditis, although different organisms isolated and the polymicrobial nature og the bacteremia at this time raises concerns for line related infections. If TTE is negative and new blood culture from 05/09 remains negative, 14 days of therapy from negative blood cultures should suffice. All central lines should be removed. 1- Continue linezolid 2- Consider to discontinue ampicillin and ceftriaxone 3- Start daptomycin 8mg/kg, monitor CPK, (hold any statins) 4- TTE 5- Consider adding levofloxacin if any respiratory deterioration 6- Monitor right pleural effusion Please call if questions Keysha Downey MD [facility] ID [phone]
[2020-05-14] MEDS: LINEZOLID 600 MG/300 ML RTUPB IV SCH ×2 (10:04→22:33)
[2020-05-14] MEDS: METOPROLOL SUCCINATE 25 MG TAB.SR.24H PO SCH ×2 (10:04→14:25)
[2020-05-14] MEDS: LISINOPRIL 5 MG TABLET PO SCH ×3 (10:04→21:30)
[2020-05-14] MEDS: THIAMINE HCL 100 MG TABLET PO SCH ×2 (10:04→14:25)
[2020-05-14] MEDS: ENOXAPARIN SODIUM INJ 40 MG/0.4 ML DISP.SYRIN SUBCUT SCH (10:05)
[2020-05-14] MEDS: SENNOSIDES/DOCUSATE 8.6-50 MG 1 EACH TABLET PO SCH (10:06)
[2020-05-14] MEDS: SCOPOLAMINE HYDROBROMIDE 1.5 MG PATCH.TD72 TD SCH (10:07)
[2020-05-14] MEDS: PROMETHAZINE HCL INJ 25 MG/1 ML VIAL IV PRN ×2 (10:16→22:56)
[2020-05-14] MEDS ORDERED: ACETAMINOPHEN 325 MG TABLET PO PRN (12:06)
[2020-05-14] MEDS ORDERED: RINGERS SOLUTION,LACTATED 1,000 ML IV PRN (12:06)
[2020-05-14] MEDS: ONDANSETRON HCL INJ/PF 4 MG/2 ML SDV IV PRN ×2 (12:27→19:12)
--- NOTE | 2020-05-14 12:35 | CRITICAL CARE ADMISSION REPORT ---
HPI Date:: 05/14/20 Time:: 12:00 Reason for ICU Reason:: Mucous plugging and need for ventilator Admission Date/Time & PCP: Admission Date/Time: 04/20/20 13:42 Primary Care Provider: GOLD ELENA HPI: This patient is well known to us for previous COVID pneumonia and the post-Covid respiratory sequelae. He has a tendency at times to mucous plug which can at times be dramatic. He did this again today, after a bout of nausea. There could be an element of aspiration. For a brief time he became hypoxic enough to lose consciousness but was lavaged and suctioned for a large amount of phlegm. He is now appropriate and mentating normally. He is on the ventilator as is quite fatigued and asked to be placed back on it. He is dehydrated by his own admission and looks as such clinically. He will be hydrated, scopalomine discontinued and the ventilator will be weaned as tolerated. History obtained from:: Patient and Dr. Bennett - Diagnosis/Plan (1) Acute on chronic respiratory failure with hypoxia and hypercapnia Is this a current diagnosis for this admission?: Yes Plan: He was definitely hypoxic as evidenced by his blacking out and low O2 saturations. He is weaning down to 40% on the vent. No ABG was obtained but historically he has had some degree of hypercarbia. (2) Diabetes Qualifiers: Diabetes mellitus type: type 2 Is this a current diagnosis for this admission?: Yes Plan: Controlled (3) Hypoxia Is this a current diagnosis for this admission?: Yes Plan: As above. Not hypoxic now. (4) MSSA bacteremia Is this a current diagnosis for this admission?: Yes Plan: To remain on linezolid (5) Malnutrition Qualifiers: Malnutrition type: protein-calorie malnutrition Is this a current diagnosis for this admission?: Yes Plan: He is nauseous today but does not want a feeding tube either. He looks quite emaciated. (6) Tracheostomy in place Is this a current diagnosis for this admission?: Yes Plan: He can be easily put on and off the vent this way. Plan Summary: Will leave him on the vent for now and gradually wean him off hopefully in the next 24 hours. Past Medical History Cardiac Medical History: Reports: Congestive Heart Failure, Hypertension Denies: Coronary Artery Disease, Hyperlipidema Pulmonary Medical History: Reports: Intubation, Respiratory Failure Denies: Asthma, Chronic Obstructive Pulmonary Disease (COPD) Neurological Medical History: Denies: Seizures Endocrine Medical History: Reports: Diabetes Mellitus Type 2 Renal/ Medical History: Reports: End Stage Renal Disease - Recently diagnosed with stage IV CKD GI Medical History: Denies: Cirrhosis, Hepatitis Musculoskeltal Medical History: Reports: Arthritis Denies: Gout Skin Medical History: Denies: Eczema, Psoriasis Psychiatric Medical History: Reports: Depression Hematology: Reports: Anemia - Recently diagnosed Denies: Bleeding Tendencies Past Surgical History Past Surgical History: Reports: Orthopedic Surgery - Multiple surgeries, Other - Tracheostomy, 03/18/2020 Social/Family History - Social History Lives with: Long Term - [facility] Smoking Status: Unknown if Ever Smoked Frequency of Alcohol Use: None Hx Recreational Drug Use: No Drugs: None Hx Prescription Drug Abuse: No - Medication/Allergies Home Medications: Furosemide [Lasix 20 mg Tablet] 20 mg PO DAILY tablet 04/19/20 Insulin Glargine,Hum.rec.anlog [Lantus Insulin 100 Unit/1 ml 10 ml] 5 unit SUBCUT DAILY unit 04/19/20 Insulin Lispro [Humalog Insulin (Lispro) 100 unit/mL] 0 - 12 unit SUBCUT ACHS unit 04/19/20 Lactulose [Cephulac Syrup 20 gm/30 ml Udcup] 10 gm PO Q12 udc 04/19/20 Lisinopril [Prinivil 5 mg Tablet] 2.5 mg PO Q12 tablet 04/19/20 Metoprolol Succinate [Toprol Xl 25 mg Tab.sr] 25 mg PO DAILY tab.sr.24h 04/19/20 Oxycodone HCl/Acetaminophen [Percocet 5-325 mg Tablet] 1 tab PO Q4HP PRN #14 tablet 04/19/20 Scopolamine Hydrobromide [Transderm-Scop 1.5 mg Patch] 1 each TD Q3DAYS patch.[id number] 04/19/20 Sennosides/Docusate 8.6-50 mg [Senna Plus Tablet] 2 each PO DAILY tablet 04/19/20 Thiamine HCl [Thiamine 100 mg Tablet] 100 mg PO DAILY tablet 04/19/20 Trazodone HCl [Desyrel 50 mg Tablet] 100 mg NG HSP PRN tablet 04/19/20 Allergies/Adverse Reactions: iodine Allergy (Verified 01/23/20 23:19) shellfish derived Allergy (Verified 01/23/20 23:19) Sulfa (Sulfonamide Antibiotics) Allergy (Verified 01/23/20 23:19) Review of Systems Constitutional: ABSENT: chills, fever(s), headache(s), weight gain, weight loss Cardiovascular: ABSENT: chest pain, dyspnea on exertion, edema, orthropnea, palpitations Respiratory: PRESENT: other - SOB Gastrointestinal: PRESENT: nausea, vomiting Genitourinary: ABSENT: dysuria, hematuria Musculoskeletal: ABSENT: joint swelling Integumentary: ABSENT: rash, wounds Neurological: ABSENT: abnormal gait, abnormal speech, confusion, dizziness, focal weakness, syncope Psychiatric: ABSENT: anxiety, depression, homidical ideation, suicidal ideation Endocrine: ABSENT: cold intolerance, heat intolerance, polydipsia, polyuria Physical Exam Vital Signs: Temp Pulse Resp BP Pulse Ox 97.3 F 91 19 151/92 H 100 05/13/20 16:38 05/14/20 07:00 05/14/20 04:20 05/13/20 16:38 05/14/20 04:20 Intake & Output 05/13/20 05/14/20 05/15/20 06:59 06:59 06:59 Intake Total 2200 2300 Output Total 3075 3165 Balance -875 -865 Weight 54.3 kg 55.6 kg Weight/Height Weight 55.6 kg Height 5 ft 7 in General appearance: PRESENT: no acute distress, cooperative, thin, other - Emaciated. Head exam: PRESENT: atraumatic, normocephalic Eye exam: PRESENT: conjunctiva pink, EOMI, PERRLA. ABSENT: scleral icterus Ear exam: PRESENT: normal external ear exam Mouth exam: PRESENT: moist, tongue midline Respiratory exam: PRESENT: clear to auscultation yousif, decreased breath sounds. ABSENT: rales, rhonchi, wheezes Cardiovascular exam: PRESENT: tachycardia Pulses: PRESENT: normal dorsalis pedis pul GI/Abdominal exam: PRESENT: normal bowel sounds, soft. ABSENT: distended, guarding, mass, organolmegaly, rebound, tenderness Rectal exam: PRESENT: deferred Gentrourinary exam: PRESENT: indwelling catheter Extremities exam: PRESENT: full ROM. ABSENT: calf tenderness, clubbing, pedal edema Musculoskeletal exam: PRESENT: other - Wasted appearance Neurological exam: PRESENT: alert, awake, oriented to person, oriented to place, oriented to time, oriented to situation, CN II-XII grossly intact. ABSENT: motor sensory deficit Psychiatric exam: PRESENT: appropriate affect, normal mood. ABSENT: homicidal ideation, suicidal ideation Skin exam: PRESENT: dry, intact, warm. ABSENT: cyanosis, rash Tubes/Lines: PRESENT: Central Line - PICC line, Other - Tracheotomy Laboratory/Radiographs Laboratory Results: 05/12/20 06:00 05/12/20 06:00 05/09/20 09:23 Blood Blood Culture - Final NO GROWTH IN 5 DAYS 04/20/20 04/23/20 04/23/20 09:00 01:55 01:55 Creatine Kinase < 20 L CK-MB (CK-2) 2.20 Troponin I < 0.012 0.082 NT-Pro-B Natriuret Pep [id number] H 04/23/20 04/23/20 04/23/20 05:58 08:22 14:50 Creatine Kinase < 20 L < 20 L CK-MB (CK-2) 2.24 Troponin I 0.066 NT-Pro-B Natriuret Pep 04/23/20 14:50 Creatine Kinase CK-MB (CK-2) 2.09 Troponin I 0.057 NT-Pro-B Natriuret Pep Impressions: Modified Barium Swallow 04/26/20 00:01 IMPRESSION: LARYNGEAL PENETRATION WITH THIN BARIUM, WITH TRACE ASPIRATION FROM RESIDUALS. PLEASE SEE SPEECH PATHOLOGIST REPORT FOR OTHER FINDINGS AND RECOMMENDATIONS. PICC Line Insertion 05/07/20 00:00 IMPRESSION: SUCCESSFUL PLACEMENT OF A 5 FR DUAL LUMEN 47 CM PICC IN THE LEFT BRACHIOCEPHALIC VEIN. All labs, radiographs, diagnostic studies and EKGs were personally reviewed: Yes In addition, reports of radiographic and diagnostic studies were read: Yes Critical Time Critical Time (minutes): 45 -: The care of a critically ill patient is dynamic. This note represents a static moment in the admission process. Orders and treatments may be given simultaneously and urgently, and time is not players club representative of the treatment process. This patient requires Critical Care secondary to life threatening organ or limb dysfunction. Without Critical Care services, the patient is at risk for increased mortality and morbidity.
--- NOTE | 2020-05-14 12:36 | RADIOLOGY REPORT (SQ) ---
EXAM DESCRIPTION: CHEST SINGLE VIEW IMAGES COMPLETED DATE/TIME: 05/14/2020 11:58 am REASON FOR STUDY: ARCHAEOLOGIST COMPARISON: 05/06/2020. EXAM PARAMETERS: NUMBER OF VIEWS: One view. TECHNIQUE: Single frontal radiographic view of the chest acquired. RADIATION DOSE: NA LIMITATIONS: None. FINDINGS: LUNGS AND PLEURA: Diffuse opacification of the left chest. Improved aeration in the right lung base. MEDIASTINUM AND HILAR STRUCTURES: No masses. Contour normal. HEART AND VASCULAR STRUCTURES: Heart normal in size. Normal vasculature. BONES: No acute findings. HARDWARE: Tracheostomy tube, PICC line, and hardware in the cervical spine. OTHER: No other significant finding. IMPRESSION: DIFFUSE OPACIFICATION IN THE LEFT CHEST, MAY BE DUE TO EXTENSIVE INFILTRATE, ATELECTASIS , AND/OR LARGE PLEURAL EFFUSION. IMPROVED AERATION IN THE RIGHT LUNG BASE. TECHNICAL DOCUMENTATION: JOB ID: [id number] 2010 [employer]- All Rights Reserved Reading location - IP/workstation name: [email or web address]
[2020-05-14] MEDS: DAPTOMYCIN 500 MG in NORMAL SALINE 50 ML IV SCH (15:19)
--- NOTE | 2020-05-14 17:38 | PDOC PROGRESS REPORT ---
Subjective Progress Note for:: 05/14/20 Reason For Visit: MUCOUS PLUGGING, ACUTE HYPOXIC RESPIRATORY FAILURE Patient was seen early on in rounds this morning. At the time patient was noted to sound congested. He however had been suctioned and apparently no further suctioning required at that time. I discussed with the patient the need to be able to give him medications either through an NG tube or PEG tube IV fluids or TPN or combination of all these however patient refused. Patient was new to me today and after discussing with the nurse I did find out that he had been refusing multiple modalities of treatment and management. About 30 minutes after saw this patient when he was still relatively stable a rapid response was called and apparently he went into respiratory distress. He was found to be hypoxic. By the time he got there he was cyanotic. His oxygen saturation was in the 60s also. He was 100% oxygen and his BiPAP setting was changed. Multiple attempts to oxygenate him failed. It was felt that patient will be better served in the intensive care unit. Vacuum System Tester was informed and Dr. Villalta me to assess patient. Patient was transferred to the unit. Please see Dr. Hernández's notes for further details chest x-ray obtained reveals diffuse opacification in the left chest possibly due to extensive infiltrate atelectasis collapse pleural effusion with improved aeration in the right lung base. This is consistent with his lung findings which shows grossly diminished air entry Physical Exam Vital Signs: Temp Pulse Resp BP Pulse Ox 97.5 F 108 H 14 150/93 H 99 05/14/20 11:45 05/14/20 17:01 05/14/20 16:00 05/14/20 16:00 05/14/20 16:45 Intake & Output 05/13/20 05/14/20 05/15/20 06:59 06:59 06:59 Intake Total 2200 2300 250 Output Total 8245 3165 60 Balance -875 -865 190 Weight 54.3 kg 55.6 kg General appearance: PRESENT: thin, other - Cachectic and emaciated Mouth exam: PRESENT: dry mucosa Neck exam: PRESENT: tracheostomy Respiratory exam: PRESENT: decreased breath sounds Cardiovascular exam: PRESENT: +S1, +S2, tachycardia Rectal exam: PRESENT: deferred Results Laboratory Results: 05/12/20 06:00 05/12/20 06:00 05/09/20 09:23 Blood Blood Culture - Final NO GROWTH IN 5 DAYS 04/20/20 04/23/20 04/23/20 09:00 01:55 01:55 Creatine Kinase < 20 L CK-MB (CK-2) 2.20 Troponin I < 0.012 0.082 NT-Pro-B Natriuret Pep 08591 H 04/23/20 04/23/20 04/23/20 05:58 08:22 14:50 Creatine Kinase < 20 L < 20 L CK-MB (CK-2) 2.24 Troponin I 0.066 NT-Pro-B Natriuret Pep 04/23/20 14:50 Creatine Kinase CK-MB (CK-2) 2.09 Troponin I 0.057 NT-Pro-B Natriuret Pep Impressions: Modified Barium Swallow 04/26/20 00:01 IMPRESSION: LARYNGEAL PENETRATION WITH THIN BARIUM, WITH TRACE ASPIRATION FROM RESIDUALS. PLEASE SEE SPEECH PATHOLOGIST REPORT FOR OTHER FINDINGS AND REC OMMENDATIONS. PICC Line Insertion 05/07/20 00:00 IMPRESSION: SUCCESSFUL PLACEMENT OF A 5 FR DUAL LUMEN 47 CM PICC IN THE LEFT BRACHIOCEPHALIC VEIN. Chest X-Ray 05/14/20 11:30 IMPRESSION: DIFFUSE OPACIFICATION IN THE LEFT CHEST, MAY BE DUE TO EXTENSIVE INFILTRATE, ATELECTASIS, AND/OR LARGE PLEURAL EFFUSION. IMPROVED AERATION IN THE RIGHT LUNG BASE. Assessment and Plan - Diagnosis (1) Acute on chronic respiratory failure with hypoxia and hypercapnia Is this a current diagnosis for this admission?: Yes Plan: Likely due to healthcare associated pneumonia or aspiration pneumonia. Sputum culture growing MRSA. Continue vancomycin; Day #7. Aggressive pulmonary toileting, tracheostomy care, monitor for aspiration. 04/30/2020-reviewing records from the previous week reveals sporadic use of ventilator. Continue oxygen supplementation by trach collar to keep saturations greater than or equal to 90%. 05/01/2020-patient actually sounds worse today than yesterday. He is currently on BiPAP. He still does not appreciate the effects that his dysfunctional swallow is having on his overall health. He still believes that he can eat solid foods. Repeat chest x-ray yesterday still showed significant right lower lobe infiltrate. He is continuing to aspirate just based on clinical findings. If he still requires BiPAP I will repeat a chest x-ray tomorrow to look for significant worsening. The patient continues to request a liberal diet. At this point it is impractical and with severe risk. We will continue to discuss with the patient tomorrow of the risks of his wishes to remove the tracheostomy and advance his diet versus the constraints of the proposed treatment plan based on concrete findings. 05/02/2020-less congested today. I reminded him of the need to continue working on a strong cough to clear secretions. The next step would be to change the trach to cuffless. I will do this if he has several more days without respiratory distress. We will try and keep the cuff deflated as much as possibl e. 05/03/2020-large volume emesis with obvious aspiration and significant mucus production most likely the result of trial of a meal. This certainly means we will discontinue any trials of change in diet. He is able to remain on trach collar despite this episode. 05/04/2020-patient has been tolerating trach collar consistently. The cuff is deflated and the patient is able to talk. Still with rhonchi on the right. We will hold off on advancing any diet at this time. Continue to attempt to wean with a goal of Decannulating. 05/05/2020-Dr. Mendoza on the trach. Increased mucus production and suctioning requirement. Possible recurrent aspiration pneumonia. Sputum culture has been ordered. 05/06/2020-tracheostomy dressing and strap stained with mucus. Increased secretions and slightly worsened chest x-ray concerning the right lower lobe. White blood cell count is going down. There is a tracheal suction specimen for Gram stain and culture. Currently Gram stain reveals gram-positive cocci in clusters with gram-negative bacilli. The patient seems to be needing more respiratory support today as opposed to trach collar previously. 05/10/2020-ID consult was requested. Patient is receiving ampicillin, vancomycin for presumed VRE under MSSA. Patient is high risk for aspiration. Has a trach. He continued to request oral feeds at this time. Blood cultures growing VRE, staph aureus. Presently on ampicillin, ceftriaxone and started on linezolid. ID consult will be requested on Wednesday. 05/11/20-pulse oxes 100% 6 L. Has a trach. Blood cultures growing VRE E. Started on linezolid. ID consult will be requested on Wednesday. To continue ampicillin and ceftriaxone for MSSA. 05/12/2020-blood cultures are positive for VRE. On linezolid, ampicillin, ceftriaxone. ID consult was requested. 05/13/20-patient is receiving linezolid, ampicillin, ceftriaxone. Follow-up re commendations from ID's pending. 05/14 please see discussion above. Patient has been transferred to the intensive care unit. Before you went into acute respiratory distress I actually did discuss his CODE STATUS with him and he maintained that he wants to be a full code (2) Bacteremia due to Enterococcus Is this a current diagnosis for this admission?: Yes Plan: Enterococcus bacteremia sensitive to penicillins and vancomycin. Continue vancomycin; Day #7. Unfortunately, patient continues to refuse repeat blood cultures. Have not been able to determine that patient has cleared his bacteremia in order to establish an EOT date. Repeat Blood cultures remain pending. 04/30/2020-vancomycin through 05/01/2020. We will obtain repeat blood cultures to ensure resolution of bacteremia. 05/01/2020-vancomycin therapy complete. Repeat blood cultures ordered but not collected yet. 05/02/2020-repeat blood cultures to ensure resolution of bacteremia unfortunately not collected as yet. 05/03/2020-blood cultures ordered. Unfortunately not collected as yet. Vancomycin therapy completed. Bacteremia should be resolved. 05/04/2020-unfortunately blood cultures were never ordered. If there is a clinical change I will reorder. Otherwise bacteremia should be considered resolved. 05/10/2020-ID consult was requested. Patient is receiving ampicillin and vancomycin at this time. Blood cultures from 05/09/2020 are negative so far. Cultures from 1020 indicated for staph aureus MSSA, Enterococcus. 05/11/20-blood culture positive for VRE. Started on linezolid. ID will be consulted Wednesday. Patient is afebrile. 05/12/2020-blood cultures came back positive for VRE. On linezolid. Afebrile. 05/13/2020-patient is on linezolid, ampicillin, vancomycin. ID on board. 05/14 transferred to the unit. Follow-up with ID recommendations (3) Bilateral pneumonia Qualifiers: Pneumonia type: due to unspecified organism Lung location: lower lobe of lung Qualified Code(s): J18.9 - Pneumonia, unspecified organism Is this a current diagnosis for this admission?: Yes (4) Malnutrition Qualifiers: Malnutrition type: protein-calorie malnutrition Is this a current diagnosis for this admission?: Yes Plan: Due to low p.o. intake. Unfortunately patient has been having aspiration and has been refusing other modes of nutrition, patient has adamantly refused PEG tube and TPN. On 04/26/2020 patient had a modified barium swallow which and recommendation was for pured diet. Patient still at risk of aspiration. Continue feeds as tolerated, registered dietitian has been consulted. 04/30/2020-modified barium swallow performed last week again revealed pooling and aspiration. Patient refuses PEG tube. We will continue with pured diet. Patient constantly asking for regular food. Will need to review his recent course of aspiration pneumonia and discuss realistic expectations. 05/01/2020-still refusing PEG tube placement. Still high risk of aspiration. Patient is requesting advancing his diet. He may need to review the risks and benefits of advancing his diet. He did have a friend actually bringing him food from outside previously. This is temporarily stopped. Continue current diet orders at this time. 05/02/2020-with his current improvements I agreed to a single trial of chicken salad. We discussed trialing other foodstuffs based on his ability to eat the chicken salad without marked aspiration. He refuses sherbet. He was eating ice cream previously. Consider ice cream with the addition of protein powder. 05/03/2020-considering the difficulties encountered and the patient's unwillingness to accept a PEG tube we may be forced to utilize TPN. I will discuss with the patient tomorrow. 05/05/2020-making no progress. Need to seriously consider TPN. 05/06/2020-because of his aspiration and unwillingness to accept PEG tube the patient's malnutrition continues. At this point I am going to start TPN in an effort to improve his recovery chances. Unfortunately he continues to avoid the interventions that would be most helpful for him. 05/10/2020-discussed the plan about initiation of TPN. Patient adamantly is refusing TPN feeds at this time. 05/14 and is refusing all manners of nutrition yet he remains a full code (5) Respiratory failure, [id number] Qualifiers: Respiratory failure complication: hypoxia Is this a current diagnosis for this admission?: Yes Plan: Current probably secondary to episodes of mucous plugging. He is in no shape to tolerate bronchioloalveolar lab values at this time but if he does stabilize this may be a consideration at some point (6) Sepsis associated hypotension Is this a current diagnosis for this admission?: Yes (7) COVID-19 Is this a current diagnosis for this admission?: Yes Plan: -He was just discharged from a prolonged stay due to severe COVID pneumonia -No need to retest -The need to monitor Continues to suffer from Covid pneumonitis and its sequela - Plan Summary Summary: Mr. Stalin Sena is a 60-year-old man with HTN, HLD, DM2, CHF and recent prolon ged hospitalization for acute respiratory failure secondary to COVID-19 pneumonia s/p tracheostomy placement and [place] a [place] [facility] for continued rehabilitation. He returned to [facility] on 04/20/20 SOB, and was found to have hypoxemia, tachycardia, hypothermia and hypotension. A right femoral line was urgently placed for IV access. Enterococcus Bacteremia (present on admission) CLABSI and MSSA Bacteremia (diagnosed 05/07/2020) Blood cultures drawn on admission were obtained from the R hand and from the R femoral line; one bottle in each set (peripheral and central line) grew Enterococcus faecalis susceptible to penicillin and ampicillin. He was treated with IV vancomycin (in light of a reported penicillin allergy) for approximately 10 days (04/20-04/30). The patient refused repeat blood cultures until 05/07/20, at which time a PICC line was placed. Two sets of blood cultures were obtained - one set from the PICC line and one set from the R femoral line. After obtaining BCx, the R femoral line was removed on 05/07/2020. Both of these sets of BCx from 05/07 grew bacteria. One set grew GPCs in clusters. The other set grew VRE and presumptive MSSA. Therefore, on 05/08/2020, he was started on treatment with ampicillin and vancomycin (review of his chart raised doubt that he had a true IgE mediated penicillin allergy, as he had previously received several courses of cephalosporins). The patient has since been refusing attempts at placing PIV access in order to be able to remove his PICC line and he also refused to allow repeat BCx on 05/08. He finally allowed repeat BCx to be drawn from the PICC on 05/09. ID was consulted on 05/09 for further recommendations, which include: * Enterococcus bacteremia * This potentially represents a recurrence of the previous Enterococcal faecalis bacteremia, but right now it is not possible to definitively say this. The identification and susceptibilities for the organism are pending. The presence of vancomycin resistance for the new isolate could be acquired in the course of the prior treatment. If this is indeed a recurrence, it raises the question of a persistent focus of infection and re-seeding or failure to clear the bloodstream. * obtain TTE * continue ceftriaxone and ampicillin (ampicillin + Rocephin is an effective alternative regimen to the traditional ampicillin + gentamicin) * Depending on whether or not recurrence of E faecalis bacteremia is unexplained and endocarditis is likely, Rocephin could be continued at the 2 g q12h dose or changed if this higher dose is not required. * The previous E faecalis isolate was susceptible to ampicillin. This remains the case for most vancomycin-resistant E faecalis. Follow culture results for identification of the Enterococcus species and susceptibility results. If the patient becomes hemodynamically unstable or toxic before identi fication/susceptibilities return, daptomycin can be used at approximately 8-10 mg/kg daily in place of the ampicillin. * MSSA bacteremia in the setting of a PICC line * Source unclear: infected line vs bacteremia secondary to pneumonia (aspiration vs tracheitis) * Isolation of organisms from tracheal aspirate (like any non-sterile site) has to be taken into context, and clinically - WBC count has been stable, no new fever - but he has required an increased amount of oxygen from 6L to 10 L in the past 2 days and has had increased RLL infiltrate on CXR. Leah in tracheal aspirate is usually a colonizer. Stenotrophomonas maltophilia can also be a colonizer and, in the setting of other obviously invasive pathogens, targeting therapy to include it is not necessarily warranted as long as the patient is improving with treatment aimed at the MSSA and other interventions to reduce aspiration risk and/or optimize volume status. * The PICC line should be removed. It is not recommended to attempt salvaging a line when there is Staph aureus bacteremia due to the risk for failure and relapse. * Would avoid placing a parking garage manager line until blood cultures are known to be negative for at least 48 hours. * obtain TTE * continue Rocephin * Duration of therapy should be, at a minimum, 2 weeks from date of negative blood cultures and removal of PICC line, assuming that no endocarditis is present or metastatic foci of infection. If such is present, duration of treatment should be longer. Acute on chronic respiratory failure with hypoxia and hypercapnia: he had an in crease in WBC on and there was concern for possible aspiration event vs tracheitis vs HAP. CXR was repeated on 05/06 and showed increased opacification in the right lung base. He has remained afebrile, on 6-10 L O2 over the duration of his hospitalization. He had a tracheal aspirate on 05/05/20 which showed growth of Leah albicans, Stenotrophomonas maltophilia, and MSSA. He is currently on antibiotics and WBC has normalized. He is a high aspiration risk but he is unwilling to stop eating by mouth and refuses a PEG tube. Severe Protein Calorie Malnutrition: due to poor PO intake. Unfortunately patient has been having aspiration events and also refusing other modes of nutrition. On 04/26/2020 patient had a modified barium swallow and recommendation was for pured diet with aspiration precautions. PICC placed on 05/07 and TPN was briefly initiated until his BCx resulted, and TPN was thus discontinued (due to ongoing bacteremia). Tracheostomy in place: Continue tracheostomy care. Aggressive pulmonary toileting. Inner cannula is showing evidence of the increased secretions. Because of his insistence on eating PO, he has significantly delaying the possibility of decannulation. Hyperglycemia due to type 2 diabetes mellitus: glucose control is reasonable. His intake does vary. He continues to refuse PEG tube placement. This would in fact significantly improve the trajectory of his recovery. This has been suggested multiple times and he adamantly refuses each time. Will need to adjust treatment as his diet changes. Candiduria: Urine culture positive for Leah albicans. The patient does have an indwelling Varner catheter which has been exchanged this admission. Chronic Urinary Retention: exchange Varner catheter every 4 weeks to prevent CAUTI. Anemia of Chronic Disease: hemoglobin has been 7-8 since January 2020. Ferritin elevated (not iron deficiency). He has no evidence of active blood loss. Critical illness myopathy: he will need ongoing PT and OT due to the severe deconditioning from his prolonged illness and prolonged hospitalizations. Medical non-adherence: he has been requesting food that is not on his recommended diet. He is, at times, a willing participant in the treatment plan but, at other times, lacks insight and has poor judgment. He remains a FULL CODE and does not wish to change his code status, despite ongoing dysphagia, oral intake and high risk for future aspiration episodes. We discussed at length today the risk of morbidity and mortality due to bacteremia, the importance of antibiotics, the importance of removing his PICC line and allowing us to place PIVs, etc. He is bargaining and stating that he will accept certain medications and medical interventions only if he can get IV opioids for treatment of his chronic MSK pain. We agreed that I would change his oral oxycodone dosage to an equivalent IV morphine dosage, but that he can no longer decline these medical interventions and he is agreeable at this time. Discussed with RN. - Time Time Spent with patient: 35 or more minutes Anticipated Discharge Disposition: [facility] Facility Anticipated Discharge Timeframe: Be determined
[2020-05-14] MEDS: RINGERS SOLUTION,LACTATED 1,000 ML IV PRN (19:43)
[2020-05-14] MEDS ORDERED: FAMOTIDINE INJ/PF 20 MG/2 ML SDV IV SCH (22:00)
[2020-05-15] MEDS: INSULIN REG, HUMAN 100 UNIT/ML 3 ML VIAL (PYX) SUBCUT SCH ×5 (00:09→23:53)
[2020-05-15] MEDS: NITROGLYCERIN 2% OINTMENT 1 GM PACKET TP SCH ×5 (00:09→23:54)
[2020-05-15] MEDS: RINGERS SOLUTION,LACTATED 1,000 ML IV PRN ×2 (00:20→05:49)
[2020-05-15 06:18] LABS: ABSOLUTE BASOPHILS # (AUTO) 0.1 10^3/uL (0.0-0.2); ABSOLUTE EOSINOPHILS # (AUTO) 0.3 10^3/uL (0.0-0.6); ABSOLUTE LYMPHOCYTES (AUTO) 1.6 10^3/uL (0.5-4.7); ABSOLUTE MONOCYTES (AUTO) 1.1 10^3/uL (0.1-1.4); ABSOLUTE NEUT (AUTO) 8.1 10^3/uL (1.7-8.2); BASOPHILS % (AUTO) 0.5 % (0-2); EOSINOPHILS % (AUTO) 2.4 % (0-6); HEMATOCRIT 25.1 % (37.9-51.0); HEMOGLOBIN 8.2 g/dL (13.5-17.0); LYMPHOCYTES % (AUTO) 14.7 % (13-45); MEAN CORPUSCULAR HEMOGLOBIN 27.7 pg (27.0-33.4); MEAN CORPUSCULAR HGB CONC 32.9 g/dL (32.0-36.0); MEAN CORPUSCULAR VOLUME 84 fl (80-97); MONOCYTES % (AUTO) 9.6 % (3-13); PLATELET COUNT 340 10^3/uL (150-450); RED BLOOD COUNT 2.98 10^6/uL (4.35-5.55); SEGMENTED NEUTROPHILS % (AUTO) 72.8 % (42-78); TOTAL CELLS COUNTED % (AUTO) 100 %; WHITE BLOOD COUNT 11.1 10^3/uL (4.0-10.5)
[2020-05-15 06:20] LABS: INTERNATIONAL RATION (INR) 1.29; PROTHROMBIN TIME 16.3 SEC (11.4-15.4)
[2020-05-15 06:37] LABS: ANION GAP 7 (5-19); BLOOD UREA NITROGEN 7 mg/dL (7-20); CALCIUM 7.6 mg/dL (8.4-10.2); CARBON DIOXIDE 29 mmol/L (22-30); CHLORIDE 102 mmol/L (98-107)
[2020-05-15 06:40] LABS: POTASSIUM 2.6 mmol/L (3.6-5.0)
[2020-05-15 06:41] LABS: GLUCOSE 66 mg/dL (75-110)
[2020-05-15] MEDS ORDERED: DEXTROSE 50%-WATER 25 GM/50 ML DISP.SYRIN IV ONE ×2 (07:18→09:24)
[2020-05-15] MEDS: DEXTROSE 5%-LACTATED RINGERS 1,000 ML IV PRN ×2 (08:49→18:20)
[2020-05-15] MEDS: POTASSI CL 20 MEQ/50 ML RIDER 20 MEQ/50 ML RTUPB IV SCH ×3 (08:49→12:10)
--- NOTE | 2020-05-15 08:57 | PDOC CRITICAL CARE PROG REPORT ---
General Date:: 05/15/20 ICU Day:: 2 Ventilator Day:: 2 Resuscitation Status: Full Code Events in the past 12 to 24 Hours:: Suctioned for much thick secretions. Likely mucous plugged. Review of systems relevant to events:: Pulmonary. Reason for ICU Addmission:: Mucous plugging and need for ventilator - Medications: Medications reviewed and adjusted accordingly: Yes Vasopressors:: None Sedation:: None Physical Exam Vital Signs: Temp Pulse Resp BP Pulse Ox 98.8 F 99 22 H 140/91 H 100 05/15/20 05:33 05/14/20 20:00 05/14/20 18:00 05/14/20 18:00 05/15/20 08:36 Intake & Output 05/14/20 05/15/20 05/16/20 06:59 06:59 06:59 Intake Total 2300 4773 Output Total 3165 235 Balance -865 4538 Weight 55.6 kg 67.3 kg Weight/Height Weight 67.3 kg Height 5 ft 7 in General appearance: PRESENT: no acute distress, cooperative, thin Head exam: PRESENT: atraumatic, normocephalic Eye exam: PRESENT: conjunctiva pink, EOMI, PERRLA. ABSENT: scleral icterus Ear exam: PRESENT: normal external ear exam Mouth exam: PRESENT: moist, tongue midline Neck exam: PRESENT: tracheostomy Respiratory exam: PRESENT: clear to auscultation yousif, rhonchi. ABSENT: rales, wheezes Cardiovascular exam: PRESENT: tachycardia Pulses: PRESENT: normal dorsalis pedis pul GI/Abdominal exam: PRESENT: normal bowel sounds, soft. ABSENT: distended, guarding, mass, organolmegaly, rebound, tenderness Rectal exam: PRESENT: deferred Gentrourinary exam: PRESENT: indwelling catheter Extremities exam: PRESENT: full ROM, other - Emaciated.. ABSENT: calf tenderness, clubbing, pedal edema Musculoskeletal exam: PRESENT: normal inspection Neurological exam: PRESENT: alert, awake, oriented to person, oriented to place, oriented to time, oriented to situation, CN II-XII grossly intact Psychiatric exam: PRESENT: appropriate affect, normal mood. ABSENT: homicidal ideation, suicidal ideation Skin exam: PRESENT: dry, intact, warm. ABSENT: cyanosis, rash Tubes/Lines: PRESENT: Other - Tracheotomy. Laboratory/Radiographs Laboratory Results: 05/15/20 05:50 05/15/20 05:50 05/15/20 05/15/20 05:50 05:50 WBC 11.1 H RBC 2.98 L Hgb 8.2 L Hct 25.1 L MCV 84 MCH 27.7 MCHC 32.9 RDW 17.0 H Plt Count 340 Seg Neutrophils % 72.8 Sodium 137.8 Potassium 2.6 L* Chloride 102 Carbon Dioxide 29 Anion Gap 7 BUN 7 Creatinine 0.81 Est GFR ( Amer) > 60 Glucose 66 L Calcium 7.6 L 05/09/20 09:23 Blood Blood Culture - Final NO GROWTH IN 5 DAYS 04/20/20 04/23/20 04/23/20 09:00 01:55 01:55 Creatine Kinase < 20 L CK-MB (CK-2) 2.20 Troponin I < 0.012 0.082 NT-Pro-B Natriuret Pep [id number] H 04/23/20 04/23/20 04/23/20 05:58 08:22 14:50 Creatine Kinase < 20 L < 20 L CK-MB (CK-2) 2.24 Troponin I 0.066 NT-Pro-B Natriuret Pep 04/23/20 14:50 Creatine Kinase CK-MB (CK-2) 2.09 Troponin I 0.057 NT-Pro-B Natriuret Pep Impressions: Modified Barium Swallow 04/26/20 00:01 IMPRESSION: LARYNGEAL PENETRATION WITH THIN BARIUM, WITH TRACE ASPIRATION FROM RESIDUALS. PLEASE SEE SPEECH PATHOLOGIST REPORT FOR OTHER FINDINGS AND RECOMMENDATIONS. PICC Line Insertion 05/07/20 00:00 IMPRESSION: SUCCESSFUL PLACEMENT OF A 5 FR DUAL LUMEN 47 CM PICC IN THE LEFT BRACHIOCEPHALIC VEIN. Chest X-Ray 05/14/20 11:30 IMPRESSION: DIFFUSE OPACIFICATION IN THE LEFT CHEST, MAY BE DUE TO EXTENSIVE INFILTRATE, ATELECTASIS, AND/OR LARGE PLEURAL EFFUSION. IMPROVED AERATION IN THE RIGHT LUNG BASE. All labs, radiographs, diagnostic studies and EKGs were personally reviewed: Yes In addition, reports of radiographic and diagnostic studies were read: Yes Assessment and Plan - Diagnosis (1) Acute on chronic respiratory failure with hypoxia and hypercapnia Is this a current diagnosis for this admission?: Yes Plan: Will try to get patient back to trach collar today. (2) Diabetes Qualifiers: Diabetes mellitus type: type 2 Is this a current diagnosis for this admission?: Yes Plan: His blood sugar is still low. Now that he is rehydrated, will restart D5LR at 125cc/hr. Pt still is nauseous and cause is not clear. On Daptomycin and Zyvox now. (3) Hypoxia Is this a current diagnosis for this admission?: Yes Plan: Resolved (4) MSSA bacteremia Is this a current diagnosis for this admission?: Yes Plan: On daptomycin and Zyvox per ID recommendations (5) Malnutrition Qualifiers: Malnutrition type: protein-calorie malnutrition Is this a current diagnosis for this admission?: Yes Plan: He still refuses PEG, NG and is nauseous. (6) Hypokalemia Is this a current diagnosis for this admission?: Yes Plan: His level is 2.6. Being replaced with IV potassium. (7) Multiple tracheobronchial mucus plugs Is this a current diagnosis for this admission?: Yes Plan: He has done this several times in the recent past. He will need frequent suctioning with lavage. Simple suctioning did not clear him. Plan Summary: Try to work on getting him back to trach collar. Critical Time Critical Time (minutes): 35 Level of Care: ICU Anticipated discharge: SNF Anticipated DC Timeframe: Other -: 1. The care of a critical patient is a dynamic process. This note is a artist representative synopsis but static in nature. The timeframe for treatments given in order is not necessarily the actual time these treatments may have been done. 2. This patient requires critical care secondary to ongoing requirements for therapy not offered or safe outside the critical care environment. Transfer to a lower level of care will result in altered life or limb morbidity and mor tality. 3. Multidisciplinary rounds completed. 4. ABCDE bundle addressed.
[2020-05-15] MEDS: THIAMINE HCL 100 MG TABLET PO SCH (09:20)
[2020-05-15] MEDS: SENNOSIDES/DOCUSATE 8.6-50 MG 1 EACH TABLET PO SCH (09:20)
[2020-05-15] MEDS: PHOSPHORUS #1 250 MG TABLET PO SCH ×4 (09:20→22:05)
[2020-05-15] MEDS: LISINOPRIL 5 MG TABLET PO SCH ×2 (09:20→22:05)
[2020-05-15] MEDS: LACTULOSE SYRUP 20 GM/30 ML UDCUP PO SCH ×2 (09:20→22:05)
[2020-05-15] MEDS: METOPROLOL SUCCINATE 25 MG TAB.SR.24H PO SCH (09:21)
[2020-05-15] MEDS: LINEZOLID 600 MG/300 ML RTUPB IV SCH ×2 (09:25→22:04)
[2020-05-15] MEDS: MORPHINE SULFATE 10 MG/ML INJ IV PRN ×3 (09:26→20:21)
[2020-05-15] MEDS: PROMETHAZINE HCL INJ 25 MG/1 ML VIAL IV PRN (09:26)
[2020-05-15] MEDS: DIPHENHYDRAMINE HCL 50 MG/ML VIAL IV PRN ×3 (09:26→20:21)
[2020-05-15] MEDS ORDERED: ENOXAPARIN SODIUM INJ 40 MG/0.4 ML DISP.SYRIN SUBCUT SCH (10:00)
[2020-05-15] MEDS: ONDANSETRON HCL INJ/PF 4 MG/2 ML SDV IV PRN ×2 (14:21→20:22)
[2020-05-15] MEDS: DAPTOMYCIN 500 MG in NORMAL SALINE 50 ML IV SCH (14:21)
[2020-05-16] MEDS: DEXTROSE 5%-LACTATED RINGERS 1,000 ML IV PRN ×3 (01:10→17:57)
[2020-05-16] MEDS: ONDANSETRON HCL INJ/PF 4 MG/2 ML SDV IV PRN (04:30)
[2020-05-16] MEDS: DIPHENHYDRAMINE HCL 50 MG/ML VIAL IV PRN ×2 (04:30→18:07)
[2020-05-16] MEDS: MORPHINE SULFATE 10 MG/ML INJ IV PRN ×3 (04:31→23:19)
[2020-05-16 04:49] LABS: ABSOLUTE BASOPHILS # (AUTO) 0.1 10^3/uL (0.0-0.2); ABSOLUTE EOSINOPHILS # (AUTO) 0.5 10^3/uL (0.0-0.6); ABSOLUTE LYMPHOCYTES (AUTO) 1.9 10^3/uL (0.5-4.7); ABSOLUTE MONOCYTES (AUTO) 0.9 10^3/uL (0.1-1.4); ABSOLUTE NEUT (AUTO) 5.8 10^3/uL (1.7-8.2); BASOPHILS % (AUTO) 0.8 % (0-2); EOSINOPHILS % (AUTO) 5.8 % (0-6); HEMATOCRIT 24.5 % (37.9-51.0); HEMOGLOBIN 8.1 g/dL (13.5-17.0); MEAN CORPUSCULAR HEMOGLOBIN 27.8 pg (27.0-33.4); MEAN CORPUSCULAR VOLUME 84 fl (80-97); MONOCYTES % (AUTO) 9.4 % (3-13); PLATELET COUNT 328 10^3/uL (150-450); RED BLOOD COUNT 2.91 10^6/uL (4.35-5.55); RED CELL DISTRIBUTION WIDTH 17.1 % (11.5-14.0); TOTAL CELLS COUNTED % (AUTO) 100 %; WHITE BLOOD COUNT 9.2 10^3/uL (4.0-10.5)
[2020-05-16 05:08] LABS: BLOOD UREA NITROGEN 6 mg/dL (7-20); CALCIUM 7.6 mg/dL (8.4-10.2); CARBON DIOXIDE 30 mmol/L (22-30); CHLORIDE 101 mmol/L (98-107); GLUCOSE 173 mg/dL (75-110)
[2020-05-16 05:15] LABS: ANION GAP 4 (5-19)
[2020-05-16] MEDS: NITROGLYCERIN 2% OINTMENT 1 GM PACKET TP SCH ×3 (06:02→17:16)
[2020-05-16] MEDS: POTASSI CL 20 MEQ/50 ML RIDER 20 MEQ/50 ML RTUPB IV SCH ×3 (06:28→10:37)
[2020-05-16] MEDS: INSULIN REG, HUMAN 100 UNIT/ML 3 ML VIAL (PYX) SUBCUT SCH ×5 (06:30→21:58)
[2020-05-16] MEDS: PROMETHAZINE HCL INJ 25 MG/1 ML VIAL IV PRN ×2 (06:42→18:07)
[2020-05-16] MEDS: LACTULOSE SYRUP 20 GM/30 ML UDCUP PO SCH ×2 (10:01→21:53)
[2020-05-16] MEDS: PHOSPHORUS #1 250 MG TABLET PO SCH ×4 (10:01→21:57)
[2020-05-16] MEDS: THIAMINE HCL 100 MG TABLET PO SCH (10:02)
[2020-05-16] MEDS: METOPROLOL SUCCINATE 25 MG TAB.SR.24H PO SCH (10:02)
[2020-05-16] MEDS: LISINOPRIL 5 MG TABLET PO SCH (10:02)
[2020-05-16] MEDS: SENNOSIDES/DOCUSATE 8.6-50 MG 1 EACH TABLET PO SCH (10:02)
[2020-05-16] MEDS: LINEZOLID 600 MG/300 ML RTUPB IV SCH ×2 (10:04→21:53)
[2020-05-16] MEDS: METOPROLOL TARTRATE PF/INJ 5 MG/5 ML SDV IV PRN (11:44)
[2020-05-16] MEDS ORDERED: PHARMACY COMMUNICATION ORDER MC NR (12:00)
[2020-05-16] MEDS: IPRATROPIUM/ALBUTEROL 0.5-2.5 MG/3 ML AMPUL NEB PRN ×2 (12:16→23:23)
[2020-05-16] MEDS ORDERED: POTASSI CL 20 MEQ/50 ML RIDER 20 MEQ/50 ML RTUPB IV ONE (12:30)
--- NOTE | 2020-05-16 13:15 | RADIOLOGY REPORT (SQ) ---
EXAM DESCRIPTION: KUB/ABDOMEN (SINGLE VIEW) IMAGES COMPLETED DATE/TIME: 05/16/2020 12:30 pm REASON FOR STUDY: Check Placement of NG Tube J96.21 ACUTE AND CHRONIC RESPIRATORY FAILURE WITH HYPO MARIO COMPARISON: 04/01/2020 NUMBER OF VIEWS: One view. TECHNIQUE: Supine radiographic image of the abdomen acquired. LIMITATIONS: None. FINDINGS: BOWEL GAS PATTERN: Normal bowel gas pattern. No dilated loops. CALCIFICATIONS: No suspicious calcifications. SOFT TISSUES: No gross mass or suggestion of organomegaly. HARDWARE: NG use tube extends into the stomach with the tip along the greater curvature laterally. BONES: No acute fracture. No worrisome bone lesions. OTHER: Airspace disease in both lungs. IMPRESSION: NG tube as described. Findings as described. TECHNICAL DOCUMENTATION: JOB ID: [id number] [employer]- All Rights Reserved Reading location - IP/workstation name: [email or web address]
[2020-05-16] MEDS: LISINOPRIL 5 MG TABLET NG SCH ×2 (13:59→21:57)
[2020-05-16] MEDS: DAPTOMYCIN 500 MG in NORMAL SALINE 50 ML IV SCH (15:40)
[2020-05-16] MEDS ORDERED: FUROSEMIDE INJ/PF 40 MG/4 ML SDV IV ONE (23:59)
[2020-05-17] MEDS: NITROGLYCERIN 2% OINTMENT 1 GM PACKET TP SCH ×4 (00:05→17:03)
[2020-05-17] MEDS: ONDANSETRON HCL INJ/PF 4 MG/2 ML SDV IV PRN (00:07)
[2020-05-17 00:24] LABS: ANION GAP 6 (5-19); BLOOD UREA NITROGEN 8 mg/dL (7-20); CARBON DIOXIDE 29 mmol/L (22-30); CHLORIDE 101 mmol/L (98-107); GLUCOSE 146 mg/dL (75-110)
--- NOTE | 2020-05-17 00:26 | RADIOLOGY REPORT (SQ) ---
CLINICAL HISTORY: Hypoxia COMPARISON: 05/14/2020. TECHNIQUE: XR CHEST 1 VIEW 05/16/2020 11:15 PM CDT FINDINGS: Cardiac silhouette is normal in size. There is extensive airspace disease throughout the mid and lower right lung as well as the left lung. There are small pleural effusions. There is no pneumothorax. There are no acute osseous findings. Tracheostomy is unchanged. NG tube tip is in the stomach. Left PICC line is unchanged. IMPRESSION: Improved aeration of the left lung with significantly worsening aeration of the right lung.
[2020-05-17] MEDS: MORPHINE SULFATE 10 MG/ML INJ IV PRN ×5 (04:31→21:03)
[2020-05-17] MEDS: PROMETHAZINE HCL INJ 25 MG/1 ML VIAL IV PRN ×2 (04:35→21:04)
[2020-05-17] MEDS: DIPHENHYDRAMINE HCL 50 MG/ML VIAL IV PRN ×3 (04:39→21:02)
[2020-05-17] MEDS: INSULIN REG, HUMAN 100 UNIT/ML 3 ML VIAL (PYX) SUBCUT SCH ×4 (09:07→21:30)
[2020-05-17] MEDS: PHOSPHORUS #1 250 MG TABLET PO SCH ×4 (09:08→21:02)
--- NOTE | 2020-05-17 09:46 | PDOC CRITICAL CARE PROG REPORT ---
General Date:: 05/17/20 ICU Day:: 3 Resuscitation Status: Full Code Events in the past 12 to 24 Hours:: Anxious and still asking for the ventilator but not sure how much he really needs it. Review of systems relevant to events:: Pulmonary. Reason for ICU Addmission:: Mucous plugging and need for ventilator, chronically aspirates. - Medications: Medications reviewed and adjusted accordingly: Yes Vasopressors:: None Sedation:: None Physical Exam Vital Signs: Temp Pulse Resp BP Pulse Ox 99.0 F 98 22 H 131/83 H 100 05/17/20 08:00 05/17/20 08:00 05/17/20 08:00 05/17/20 08:00 05/17/20 08:05 Intake & Output 05/16/20 05/17/20 05/18/20 06:59 06:59 06:59 Intake Total 3238 2615 Output Total 3175 3255 400 Balance 63 -640 -400 Weight 65.3 kg 67.3 kg Weight/Height Weight 67.3 kg Height 5 ft 7 in General appearance: PRESENT: no acute distress, cooperative, thin Head exam: PRESENT: atraumatic, normocephalic Eye exam: PRESENT: conjunctiva pink, EOMI, PERRLA. ABSENT: scleral icterus Ear exam: PRESENT: normal external ear exam Mouth exam: PRESENT: moist, tongue midline Respiratory exam: PRESENT: clear to auscultation yousif, rhonchi. ABSENT: rales, w heezes Cardiovascular exam: PRESENT: RRR, tachycardia - Mild. ABSENT: diastolic murmur, rubs, systolic murmur GI/Abdominal exam: PRESENT: normal bowel sounds, soft. ABSENT: distended, guarding, mass, organolmegaly, rebound, tenderness Rectal exam: PRESENT: deferred Gentrourinary exam: PRESENT: indwelling catheter Extremities exam: PRESENT: full ROM, other - Thin and emaciated.. ABSENT: calf tenderness, clubbing, pedal edema Musculoskeletal exam: PRESENT: normal inspection Neurological exam: PRESENT: alert, altered, awake, oriented to person, oriented to place, oriented to time, oriented to situation, CN II-XII grossly intact Psychiatric exam: PRESENT: anxious Skin exam: PRESENT: dry, intact, warm. ABSENT: cyanosis, rash Tubes/Lines: PRESENT: Nasogastic Tube, Other - Tracheotomy Laboratory/Radiographs Laboratory Results: 05/16/20 04:30 05/16/20 23:59 05/16/20 23:59 Sodium 135.9 L Potassium 4.0 D Chloride 101 Carbon Dioxide 29 Anion Gap 6 BUN 8 Creatinine 0.73 Est GFR ( Amer) > 60 Glucose 146 H Calcium 8.0 L 04/20/20 04/23/20 04/23/20 09:00 01:55 01:55 Creatine Kinase < 20 L CK-MB (CK-2) 2.20 Troponin I < 0.012 0.082 NT-Pro-B Natriuret Pep [id number] H 04/23/20 04/23/20 04/23/20 05:58 08:22 14:50 Creatine Kinase < 20 L < 20 L CK-MB (CK-2) 2.24 Troponin I 0.066 NT-Pro-B Natriuret Pep 04/23/20 14:50 Creatine Kinase CK-MB (CK-2) 2.09 Troponin I 0.057 NT-Pro-B Natriuret Pep Impressions: Modified Barium Swallow 04/26/20 00:01 IMPRESSION: LARYNGEAL PENETRATION WITH THIN BARIUM, WITH TRACE ASPIRATION FROM RESIDUALS. PLEASE SEE SPEECH PATHOLOGIST REPORT FOR OTHER FINDINGS AND RECOMMENDATIONS. PICC Line Insertion 05/07/20 00:00 IMPRESSION: SUCCESSFUL PLACEMENT OF A 5 FR DUAL LUMEN 47 CM PICC IN THE LEFT BRACHIOCEPHALIC VEIN. KUB X-Ray 05/16/20 11:57 IMPRESSION: NG tube as described. Findings as described. Chest X-Ray 05/16/20 23:15 IMPRESSION: Improved aeration of the left lung with significantly worsening aeration of the right lung. All labs, radiographs, diagnostic studies and EKGs were personally reviewed: Yes In addition, reports of radiographic and diagnostic studies were read: Yes Assessment and Plan - Diagnosis (1) Acute on chronic respiratory failure with hypoxia and hypercapnia Is this a current diagnosis for this admission?: Yes Plan: He does chronically aspirate, which is why the NG in in that he finally agreed to. Will get tube feeds and PO medications now. (2) Diabetes Qualifiers: Diabetes mellitus type: type 2 Is this a current diagnosis for this admission?: Yes Plan: Controlled (3) Hypoxia Is this a current diagnosis for this admission?: Yes Plan: Resolved for now. (4) MSSA bacteremia Is this a current diagnosis for this admission?: Yes Plan: Still positive blood cultures 05/07. Redraw again. (5) Malnutrition Qualifiers: Malnutrition type: protein-calorie malnutrition Protein-calorie malnutrition severity: severe Qualified Code(s): E43 - Unspecified severe protein-calorie malnutrition Is this a current diagnosis for this admission?: Yes Plan: Receiving tube feeds now. (6) Hypokalemia Is this a current diagnosis for this admission?: Yes Plan: Resolved (7) Multiple tracheobronchial mucus plugs Is this a current diagnosis for this admission?: Yes Plan: Scopalomine stopped and he will need fairly frequent suctioning and lavage. Plan Summary: His anxiety I believe is limiting his ability to come off the vent. Will provide PO ativan and try trach collar again. Critical Time Critical Time (minutes): 35 Level of Care: ICU Anticipated discharge: SNF Anticipated DC Timeframe: Other -: 1. The care of a critical patient is a dynamic process. This note is a instruments sales representative synopsis but static in nature. The timeframe for treatments given in order is not necessarily the actual time these treatments may have been done. 2. This patient requires critical care secondary to ongoing requirements for therapy not offered or safe outside the critical care environment. Transfer to a lower level of care will result in altered life or limb morbidity and mortality. 3. Multidisciplinary rounds completed. 4. ABCDE bundle addressed.
[2020-05-17] MEDS: LACTULOSE SYRUP 20 GM/30 ML UDCUP PO SCH ×2 (10:16→21:04)
[2020-05-17] MEDS: LISINOPRIL 5 MG TABLET NG SCH ×2 (10:18→21:02)
[2020-05-17] MEDS: SENNOSIDES/DOCUSATE 8.6-50 MG 1 EACH TABLET PO SCH (10:19)
[2020-05-17] MEDS: METOPROLOL SUCCINATE 25 MG TAB.SR.24H PO SCH (10:22)
[2020-05-17] MEDS: LINEZOLID 600 MG/300 ML RTUPB IV SCH ×2 (10:31→21:04)
[2020-05-17] MEDS ORDERED: OXYCODONE HCL IR 5 MG TABLET NG PRN (15:07)
[2020-05-17] MEDS: DAPTOMYCIN 500 MG in NORMAL SALINE 50 ML IV SCH (15:55)
[2020-05-17] MEDS: LORAZEPAM 1 MG TABLET NG PRN (16:21)
[2020-05-18] MEDS: NITROGLYCERIN 2% OINTMENT 1 GM PACKET TP SCH ×5 (00:55→23:36)
[2020-05-18] MEDS: MORPHINE SULFATE 10 MG/ML INJ IV PRN ×4 (01:03→15:19)
[2020-05-18] MEDS: LORAZEPAM 1 MG TABLET NG PRN ×2 (01:27→11:48)
[2020-05-18] MEDS: ONDANSETRON HCL INJ/PF 4 MG/2 ML SDV IV PRN ×4 (02:51→21:06)
[2020-05-18] MEDS: DIPHENHYDRAMINE HCL 50 MG/ML VIAL IV PRN ×4 (02:51→21:06)
[2020-05-18] MEDS: INSULIN REG, HUMAN 100 UNIT/ML 3 ML VIAL (PYX) SUBCUT SCH ×4 (07:45→21:00)
[2020-05-18] MEDS: PHOSPHORUS #1 250 MG TABLET PO SCH ×4 (07:54→21:05)
[2020-05-18] MEDS: NORMAL SALINE 1000 ML 1,000 ML IV PRN (09:19)
[2020-05-18] MEDS ORDERED: OXYCODONE HCL IR 5 MG TABLET NG PRN (10:01)
[2020-05-18] MEDS ORDERED: NORMAL SALINE 1000 ML 1,000 ML IV PRN (10:08)
--- NOTE | 2020-05-18 10:11 | PDOC CRITICAL CARE PROG REPORT ---
General Date:: 05/18/20 Resuscitation Status: Full Code Events in the past 12 to 24 Hours:: Still complaining of SOB at times and wanting the ventilator. Review of systems relevant to events:: Respiratory Reason for ICU Addmission:: Mucous plugging and need for ventilator, chronically aspirates. - Medications: Medications reviewed and adjusted accordingly: Yes Vasopressors:: None Sedation:: None Physical Exam Vital Signs: Temp Pulse Resp BP Pulse Ox 99.7 F 104 H 20 130/81 H 100 05/18/20 09:58 05/18/20 08:00 05/18/20 08:00 05/18/20 08:00 05/18/20 08:00 Intake & Output 05/17/20 05/18/20 05/19/20 06:59 06:59 05:59 Intake Total 2965 1445 Output Total 3255 2190 175 Balance -290 -745 -175 Weight 67.3 kg 67.1 kg Weight/Height Weight 67.1 kg Height 5 ft 7 in General appearance: PRESENT: no acute distress, cooperative, thin Head exam: PRESENT: atraumatic, normocephalic Eye exam: PRESENT: conjunctiva pink, EOMI, PERRLA. ABSENT: scleral icterus Ear exam: PRESENT: normal external ear exam Neck exam: PRESENT: tracheostomy Respiratory exam: PRESENT: clear to auscultation yousif. ABSENT: rales, rhonchi, wheezes GI/Abdominal exam: PRESENT: normal bowel sounds, soft. ABSENT: distended, guarding, mass, organolmegaly, rebound, tenderness Rectal exam: PRESENT: deferred Extremities exam: PRESENT: full ROM. ABSENT: calf tenderness, clubbing, pedal edema Musculoskeletal exam: PRESENT: normal inspection Neurological exam: PRESENT: alert, awake, oriented to person, oriented to place, oriented to time, oriented to situation, CN II-XII grossly intact. ABSENT: motor sensory deficit Psychiatric exam: PRESENT: anxious Tubes/Lines: PRESENT: Nasogastic Tube, Other - Tracheotomy. Laboratory/Radiographs Laboratory Results: 05/16/20 04:30 05/16/20 23:59 04/20/20 04/23/20 04/23/20 09:00 01:55 01:55 Creatine Kinase < 20 L CK-MB (CK-2) 2.20 Troponin I < 0.012 0.082 NT-Pro-B Natriuret Pep [id number] H 04/23/20 04/23/20 04/23/20 05:58 08:22 14:50 Creatine Kinase < 20 L < 20 L CK-MB (CK-2) 2.24 Troponin I 0.066 NT-Pro-B Natriuret Pep 04/23/20 14:50 Creatine Kinase CK-MB (CK-2) 2.09 Troponin I 0.057 NT-Pro-B Natriuret Pep Impressions: Modified Barium Swallow 04/26/20 00:01 IMPRESSION: LARYNGEAL PENETRATION WITH THIN BARIUM, WITH TRACE ASPIRATION FROM RESIDUALS. PLEASE SEE SPEECH PATHOLOGIST REPORT FOR OTHER FINDINGS AND RECOMMENDATIONS. PICC Line Insertion 05/07/20 00:00 IMPRESSION: SUCCESSFUL PLACEMENT OF A 5 FR DUAL LUMEN 47 CM PICC IN THE LEFT BRACHIOCEPHALIC VEIN. KUB X-Ray 05/16/20 11:57 IMPRESSION: NG tube as described. Findings as described. Chest X-Ray 05/16/20 23:15 IMPRESSION: Improved aeration of the left lung with significantly worsening aeration of the right lung. All labs, radiographs, diagnostic studies and EKGs were personally reviewed: Yes In addition, reports of radiographic and diagnostic studies were read: Yes Assessment and Plan - Diagnosis (1) Acute on chronic respiratory failure with hypoxia and hypercapnia Is this a current diagnosis for this admission?: Yes Plan: He needs to be somewhat stressed with his breathing to effectively come off the ventilator. However he asks to be placed back on the vent at times when he does not need it. There are times when he does tired out and may well benefit from the vent. More importantly he needs to be observed for mucous plugging which can happen quickly with him. This will not soon change. He needs not just suctioning but lavage as well. (2) Diabetes Qualifiers: Diabetes mellitus type: type 2 Is this a current diagnosis for this admission?: Yes Plan: Controlled and now on tube feeds. (3) Hypoxia Is this a current diagnosis for this admission?: Yes Plan: Currently not an issue. (4) MSSA bacteremia Is this a current diagnosis for this admission?: Yes Plan: Keep on Daptomycin. (5) Malnutrition Qualifiers: Malnutrition type: protein-calorie malnutrition Protein-calorie malnutrition severity: severe Qualified Code(s): E43 - Unspecified severe protein-calorie malnutrition Is this a current diagnosis for this admission?: Yes Plan: Now that he is on tube feeds he may get stronger. (6) Hypokalemia Is this a current diagnosis for this admission?: Yes Plan: Resolved (7) Multiple tracheobronchial mucus plugs Is this a current diagnosis for this admission?: Yes Plan: See above. Plan Summary: [place] [facility] [place] He needs extensive rehab and PT which he has not been compliant always. Critical Time Critical Time (minutes): 30 Level of Care: IMCU Anticipated discharge: SNF Anticipated DC Timeframe: Other -: 1. The care of a critical patient is a dynamic process. This note is a business banking representative synopsis but static in nature. The timeframe for treatments given in order is not necessarily the actual time these treatments may have been done. 2. This patient requires critical care secondary to ongoing requirements for therapy not offered or safe outside the critical care environment. Transfer to a lower level of care will result in altered life or limb morbidity and mortality. 3. Multidisciplinary rounds completed. 4. ABCDE bundle addressed.
[2020-05-18] MEDS: LISINOPRIL 5 MG TABLET NG SCH ×2 (10:53→21:05)
[2020-05-18] MEDS: METOPROLOL SUCCINATE 25 MG TAB.SR.24H PO SCH (10:53)
[2020-05-18] MEDS: SENNOSIDES/DOCUSATE 8.6-50 MG 1 EACH TABLET PO SCH (10:53)
[2020-05-18] MEDS: LACTULOSE SYRUP 20 GM/30 ML UDCUP PO SCH ×2 (10:54→21:05)
[2020-05-18] MEDS: PROMETHAZINE HCL INJ 25 MG/1 ML VIAL IV PRN ×2 (12:06→19:17)
[2020-05-18] MEDS: DAPTOMYCIN 500 MG in NORMAL SALINE 50 ML IV SCH (14:11)
[2020-05-18] MEDS: OXYCODONE HCL IR 5 MG TABLET NG SCH ×2 (16:45→21:05)
[2020-05-18] MEDS: PANTOPRAZOLE SODIUM 40 MG VIAL IV SCH (16:54)
[2020-05-18] MEDS: NYSTATIN TOPICAL POWDER 15 GM TP SCH (17:02)
[2020-05-18] MEDS ORDERED: METOCLOPRAMIDE HCL INJ/PF 10 MG/2 ML SDV ONE (19:11)
[2020-05-18] MEDS: METOCLOPRAMIDE HCL INJ/PF 10 MG/2 ML SDV IV SCH ×2 (19:52→23:37)
[2020-05-19] MEDS ORDERED: METOCLOPRAMIDE HCL INJ/PF 10 MG/2 ML SDV IV SCH
[2020-05-19] MEDS: LORAZEPAM 1 MG TABLET NG PRN (02:23)
[2020-05-19] MEDS: OXYCODONE HCL IR 5 MG TABLET NG SCH ×4 (02:45→22:57)
[2020-05-19 03:59] LABS: ABSOLUTE BASOPHILS # (AUTO) 0.1 10^3/uL (0.0-0.2); ABSOLUTE EOSINOPHILS # (AUTO) 0.1 10^3/uL (0.0-0.6); ABSOLUTE LYMPHOCYTES (AUTO) 0.9 10^3/uL (0.5-4.7); ABSOLUTE MONOCYTES (AUTO) 0.6 10^3/uL (0.1-1.4); BASOPHILS % (AUTO) 0.4 % (0-2); EOSINOPHILS % (AUTO) 0.9 % (0-6); HEMATOCRIT 23.1 % (37.9-51.0); LYMPHOCYTES % (AUTO) 7.4 % (13-45); MEAN CORPUSCULAR HEMOGLOBIN 27.5 pg (27.0-33.4); MEAN CORPUSCULAR HGB CONC 32.4 g/dL (32.0-36.0); MEAN CORPUSCULAR VOLUME 85 fl (80-97); MONOCYTES % (AUTO) 5.1 % (3-13); PLATELET COUNT 204 10^3/uL (150-450); RED BLOOD COUNT 2.72 10^6/uL (4.35-5.55); RED CELL DISTRIBUTION WIDTH 17.6 % (11.5-14.0); SEGMENTED NEUTROPHILS % (AUTO) 86.2 % (42-78); TOTAL CELLS COUNTED % (AUTO) 100 %; WHITE BLOOD COUNT 12.7 10^3/uL (4.0-10.5)
[2020-05-19 04:04] LABS: HEMOGLOBIN 7.5 g/dL (13.5-17.0)
[2020-05-19 05:31] LABS: ANION GAP 7 (5-19); BLOOD UREA NITROGEN 12 mg/dL (7-20); CARBON DIOXIDE 28 mmol/L (22-30); CHLORIDE 100 mmol/L (98-107)
[2020-05-19 05:36] LABS: GLUCOSE 64 mg/dL (75-110)
[2020-05-19 05:50] LABS: POTASSIUM 2.7 mmol/L (3.6-5.0)
[2020-05-19] MEDS: NORMAL SALINE 1000 ML 1,000 ML IV PRN (06:05)
[2020-05-19] MEDS: METOCLOPRAMIDE HCL INJ/PF 10 MG/2 ML SDV IV SCH ×3 (06:09→22:59)
[2020-05-19] MEDS: NITROGLYCERIN 2% OINTMENT 1 GM PACKET TP SCH ×3 (06:09→18:57)
[2020-05-19] MEDS: DIPHENHYDRAMINE HCL 50 MG/ML VIAL IV PRN (06:14)
[2020-05-19] MEDS: INSULIN REG, HUMAN 100 UNIT/ML 3 ML VIAL (PYX) SUBCUT SCH ×4 (08:36→22:59)
[2020-05-19] MEDS: PHOSPHORUS #1 250 MG TABLET PO SCH ×4 (08:45→22:59)
[2020-05-19] MEDS: NYSTATIN TOPICAL POWDER 15 GM TP SCH ×2 (09:50→18:58)
[2020-05-19] MEDS: PANTOPRAZOLE SODIUM 40 MG VIAL IV SCH (09:51)
[2020-05-19] MEDS: LISINOPRIL 5 MG TABLET NG SCH ×2 (09:52→22:59)
[2020-05-19] MEDS: METOPROLOL SUCCINATE 25 MG TAB.SR.24H PO SCH (09:52)
[2020-05-19] MEDS: SENNOSIDES/DOCUSATE 8.6-50 MG 1 EACH TABLET PO SCH (09:53)
[2020-05-19] MEDS: LACTULOSE SYRUP 20 GM/30 ML UDCUP PO SCH (10:00)
[2020-05-19] MEDS ORDERED: POTASSIUM CHLORIDE 10 MEQ TABLET.ER PO SCH (10:00)
[2020-05-19] MEDS: POTASSIUM CHLORIDE 20 MEQ PACKET NG SCH ×2 (11:00→18:58)
[2020-05-19] MEDS: ONDANSETRON HCL INJ/PF 4 MG/2 ML SDV IV PRN (11:17)
[2020-05-19] MEDS: MORPHINE SULFATE 10 MG/ML INJ IV PRN (12:37)
--- NOTE | 2020-05-19 13:34 | PDOC CRITICAL CARE PROG REPORT ---
General Date:: 05/19/20 Resuscitation Status: Full Code Events in the past 12 to 24 Hours:: Accepted NG and tube feeds, Not cooperating much with vent weaning. Review of systems relevant to events:: Pulmonary Reason for ICU Addmission:: On chronic ventilator, tube feeds - Medications: Medications reviewed and adjusted accordingly: Yes Vasopressors:: None Sedation:: None Physical Exam Vital Signs: Temp Pulse Resp BP Pulse Ox 99.3 F 100 18 142/84 H 100 05/19/20 12:00 05/19/20 12:00 05/19/20 12:00 05/19/20 12:00 05/19/20 12:00 Intake & Output 05/18/20 05/19/20 05/20/20 07:59 06:59 06:59 Intake Total Output Total 110 Balance -110 Weight Weight/Height Weight 66.2 kg Height 5 ft 7 in General appearance: PRESENT: no acute distress, thin, other - Emaciated. Head exam: PRESENT: atraumatic, normocephalic Eye exam: PRESENT: conjunctiva pink, EOMI, PERRLA. ABSENT: scleral icterus Ear exam: PRESENT: normal external ear exam Mouth exam: PRESENT: moist, tongue midline Respiratory exam: PRESENT: clear to auscultation yousif, decreased breath sounds. ABSENT: rales, rhonchi, wheezes Cardiovascular exam: PRESENT: RRR. ABSENT: diastolic murmur, rubs, systolic murmur GI/Abdominal exam: PRESENT: normal bowel sounds, soft. ABSENT: distended, guarding, mass, organolmegaly, rebound, tenderness Rectal exam: PRESENT: deferred Gentrourinary exam: PRESENT: indwelling catheter Extremities exam: PRESENT: full ROM, other - Emaciated. ABSENT: calf tenderness, clubbing, pedal edema Musculoskeletal exam: PRESENT: normal inspection Neurological exam: PRESENT: alert, awake, oriented to person, oriented to place, oriented to time, oriented to situation, CN II-XII grossly intact Psychiatric exam: PRESENT: appropriate affect, normal mood. ABSENT: homicidal ideation, suicidal ideation Skin exam: PRESENT: abrasion Tubes/Lines: PRESENT: Nasogastic Tube, Other - Tracheotomy Laboratory/Radiographs Laboratory Results: 05/19/20 03:30 05/19/20 03:30 05/19/20 05/19/20 03:30 03:30 WBC 12.7 H RBC 2.72 L Hgb 7.5 L Hct 23.1 L MCV 85 MCH 27.5 MCHC 32.4 RDW 17.6 H Plt Count 204 Seg Neutrophils % 86.2 H Sodium 135.0 L Potassium 2.7 L* Chloride 100 Carbon Dioxide 28 Anion Gap 7 BUN 12 Creatinine 0.73 Est GFR ( Amer) > 60 Glucose 64 L Calcium 7.0 L* 04/20/20 04/23/20 04/23/20 09:00 01:55 01:55 Creatine Kinase < 20 L CK-MB (CK-2) 2.20 Troponin I < 0.012 0.082 NT-Pro-B Natriuret Pep [id number] H 04/23/20 04/23/20 04/23/20 05:58 08:22 14:50 Creatine Kinase < 20 L < 20 L CK-MB (CK-2) 2.24 Troponin I 0.066 NT-Pro-B Natriuret Pep 04/23/20 14:50 Creatine Kinase CK-MB (CK-2) 2.09 Troponin I 0.057 NT-Pro-B Natriuret Pep Impressions: Modified Barium Swallow 04/26/20 00:01 IMPRESSION: LARYNGEAL PENETRATION WITH THIN BARIUM, WITH TRACE ASPIRATION FROM RESIDUALS. PLEASE SEE SPEECH PATHOLOGIST REPORT FOR OTHER FINDINGS AND RECOMMENDATIONS. PICC Line Insertion 05/07/20 00:00 IMPRESSION: SUCCESSFUL PLACEMENT OF A 5 FR DUAL LUMEN 47 CM PICC IN THE LEFT BRACHIOCEPHALIC VEIN. KUB X-Ray 05/16/20 11:57 IMPRESSION: NG tube as described. Findings as described. Chest X-Ray 05/16/20 23:15 IMPRESSION: Improved aeration of the left lung with significantly worsening aeration of the right lung. All labs, radiographs, diagnostic studies and EKGs were personally reviewed: Yes In addition, reports of radiographic and diagnostic studies were read: Yes Assessment and Plan - Diagnosis (1) Acute on chronic respiratory failure with hypoxia and hypercapnia Is this a current diagnosis for this admission?: Yes Plan: The patient has a weak cough and needs to be stressed to get off the vent. He has been reluctant to do this. He chronically aspirates and has an NG for feeds and medications now. He needs to be both lavaged and suctioned or he will quickly plug up. (2) Diabetes Qualifiers: Diabetes mellitus type: type 2 Is this a current diagnosis for this admission?: Yes Plan: He is relatively low on his BG. He is on tube feeds and tolerating it with no nausea. (3) MSSA bacteremia Is this a current diagnosis for this admission?: Yes Plan: Antibiotics (4) Malnutrition Qualifiers: Malnutrition type: protein-calorie malnutrition Protein-calorie malnutrition severity: severe Qualified Code(s): E43 - Unspecified severe protein-calorie malnutrition Is this a current diagnosis for this admission?: Yes (5) Hypokalemia Is this a current diagnosis for this admission?: Yes Plan: He is receiving TID PO replacements check labs and adjust accordingly. He is chronically depleted and probably needs several days to come up. No heart rhythym issues. Plan Summary: Replace potassium, try to wean off vent if he will cooperate. PT to see but he has typically refused. Critical Time Critical Time (minutes): 30 Level of Care: IMCU Anticipated discharge: SNF Anticipated DC Timeframe: Other -: 1. The care of a critical patient is a dynamic process. This note is a union representative synopsis but static in nature. The timeframe for treatments given in order is not necessarily the actual time these treatments may have been done. 2. This patient requires critical care secondary to ongoing requirements for therapy not offered or safe outside the critical care environment. Transfer to a lower level of care will result in altered life or limb morbidity and mortality. 3. Multidisciplinary rounds completed. 4. ABCDE bundle addressed.
[2020-05-19] MEDS: DAPTOMYCIN 500 MG in NORMAL SALINE 50 ML IV SCH (15:37)
[2020-05-19] MEDS ORDERED: NITROGLYCERIN 2% OINTMENT 1 GM PACKET ONE (18:36)
[2020-05-20] MEDS: NITROGLYCERIN 2% OINTMENT 1 GM PACKET TP SCH ×5 (00:30→18:16)
[2020-05-20] MEDS: OXYCODONE HCL IR 5 MG TABLET NG SCH ×4 (03:37→22:02)
[2020-05-20] MEDS: POTASSIUM CHLORIDE 20 MEQ PACKET NG SCH ×3 (03:37→18:16)
[2020-05-20] MEDS: METOCLOPRAMIDE HCL INJ/PF 10 MG/2 ML SDV IV SCH ×3 (05:27→22:03)
[2020-05-20 07:34] LABS: ANION GAP 5 (5-19); BLOOD UREA NITROGEN 12 mg/dL (7-20); CALCIUM 7.5 mg/dL (8.4-10.2); CARBON DIOXIDE 30 mmol/L (22-30); CHLORIDE 101 mmol/L (98-107); GLUCOSE 111 mg/dL (75-110); POTASSIUM 3.5 mmol/L (3.6-5.0)
[2020-05-20] MEDS: INSULIN REG, HUMAN 100 UNIT/ML 3 ML VIAL (PYX) SUBCUT SCH ×4 (08:59→22:04)
[2020-05-20] MEDS: PANTOPRAZOLE SODIUM 40 MG VIAL IV SCH (10:20)
[2020-05-20] MEDS: METOPROLOL SUCCINATE 25 MG TAB.SR.24H PO SCH (10:20)
[2020-05-20] MEDS: SENNOSIDES/DOCUSATE 8.6-50 MG 1 EACH TABLET PO SCH (10:20)
[2020-05-20] MEDS: LISINOPRIL 5 MG TABLET NG SCH ×2 (10:20→22:02)
[2020-05-20] MEDS: NYSTATIN TOPICAL POWDER 15 GM TP SCH ×2 (10:21→17:52)
[2020-05-20] MEDS: PHOSPHORUS #1 250 MG TABLET PO SCH ×4 (11:42→22:02)
[2020-05-20] MEDS: DAPTOMYCIN 500 MG in NORMAL SALINE 50 ML IV SCH (15:00)
--- NOTE | 2020-05-20 16:46 | PDOC PROGRESS REPORT ---
Subjective Subjective:: Per admitting physician: "FREDDIE SENA JR is a 60 year old male, past medical history of type 2 diabetes hypertension CHF narcotic dependence CKD who was recently discharged from [facility] April 19, 2020 after being admitted for 89 days secondary to acute respiratory failure from COVID pneumonia. He was discharged with a tracheostomy tube uncuffed. Before discharge he has been able to speak and eat and the plan was to eventually remove the tracheostomy at [facility]. Sent back to the emergency room for evaluation of shortness of breath. EMS was called by the facility because the patient was diaphoretic with a blood glucose of 30 staff administered 1 mg glucagon in a tube and a half of oral glucose prior to EMS arrival and recheck of blood glucose was 40. Upon EMS arrival patient was pale with diminished breath sounds so he was placed on 15 L O2 via nonrebreather O2 sats went up to 86% and blood glucose was 147 upon ED arrival. In the emergency room he apparently continued to be hypoxic hence a trach cuff was placed and he was put back on mechanical ventilation briefly. He was also noted to be hypotensive hence central line was placed by Dr. Jean-Baptiste. Patient was given IV fluids. Repeat chest x-ray showed improvement of his diffuse bibasilar opacities compared from previous chest x-ray. Dr. Chandler evaluated him in the ED who felt that he does not need ICU admission. He was given 4 L of IV fluids. He was eventually transitioned to tracheal collar and was maintaining his O2 saturation to 95%. Patient was then admitted for further management. WBC count 19.5 in the ED he was given 1 dose of aztreonam and vancomycin." Per Previous Physician: "05/14/2020 MUCOUS PLUGGING, ACUTE HYPOXIC RESPIRATORY FAILURE Patient was seen early on in rounds this morning. At the time patient was noted to sound congested. He however had been suctioned and apparently no further suctioning required at that time. I discussed with the patient the need to be able to give him medications either through an NG tube or PEG tube IV fluids or TPN or combination of all these however patient refused. Patient was new to me today and after discussing with the nurse I did find out that he had been refusing multiple modalities of treatment and management. About 30 minutes after saw this patient when he was still relatively stable a rapid response was called and apparently he went into respiratory distress. He was found to be hypoxic. By the time he got there he was cyanotic. His oxygen saturation was in the 60s also. He was 100% oxygen and his BiPAP setting was changed. Multiple attempts to oxygenate him failed. It was felt that patient will be better served in the intensive care unit. Credit Administration Manager was informed and Came to assess patient. Patient was transferred to the unit. Please see Dr. Hernández's notes for further details chest x-ray obtained reveals diffuse opaci fication in the left chest possibly due to extensive infiltrate atelectasis collapse pleural effusion with improved aeration in the right lung base. This is consistent with his lung findings which shows grossly diminished air entry." 05/20/2020 Patient sent out of the ICU yesterday afternoon. Per my discussion with Dr. Chandler, patient has frequent mucous plugging and needs to be lavaged and suc tioned by respiratory therapy frequently. It is likely the patient will continue mucous plugging intermittently and may need to be sent back to the ICU at some point. He has been maintained on trach collar with intermittent ventilatory support. Patient was asking for increases in his narcotics and I discussed the risks of respiratory depression if we were to pursue this. We will keep his narcotics at the current dosing and frequency for now. Reason For Visit: MUCOUS PLUGGING, ACUTE HYPOXIC RESPIRATORY FAILURE Physical Exam Vital Signs: Temp Pulse Resp BP Pulse Ox 97.9 F 91 22 H 119/65 100 05/20/20 10:00 05/20/20 07:57 05/20/20 07:57 05/20/20 07:57 05/20/20 12:49 Intake & Output 05/19/20 05/20/20 05/21/20 06:59 06:59 06:59 Intake Total 779 604 Output Total 310 Balance 469 604 Weight 65.3 kg Exam: General appearance: PRESENT: no acute distress, frail and chronically ill- appearing Head exam: PRESENT: atraumatic, normocephalic Eye exam: PRESENT: conjunctiva pink. ABSENT: scleral icterus Mouth exam: PRESENT: moist Respiratory exam: PRESENT: Perhaps rhonchi bilateral, very mild/scant, no wheezing; trach collar in place Cardiovascular exam: PRESENT: RRR. ABSENT: diastolic murmur, rubs, systolic murmur GI/Abdominal exam: PRESENT: normal bowel sounds, soft. NG tube in place ABSENT: distended, guarding, mass, organolmegaly, rebound, tenderness Neurological exam: PRESENT: alert, awake, oriented to person, oriented to place, oriented to time, oriented to situation Psychiatric exam: PRESENT: appropriate affect, normal mood Skin exam: PRESENT: dry, intact, warm Results Laboratory Results: 05/19/20 03:30 05/20/20 05:15 05/20/20 05:15 Sodium 135.9 L Potassium 3.5 L Chloride 101 Carbon Dioxide 30 Anion Gap 5 BUN 12 Creatinine 0.88 Est GFR ( Amer) > 60 Glucose 111 H Calcium 7.5 L 04/20/20 04/23/20 04/23/20 09:00 01:55 01:55 Creatine Kinase < 20 L CK-MB (CK-2) 2.20 Troponin I < 0.012 0.082 NT-Pro-B Natriuret Pep 36346 H 04/23/20 04/23/20 04/23/20 05:58 08:22 14:50 Creatine Kinase < 20 L < 20 L CK-MB (CK-2) 2.24 Troponin I 0.066 NT-Pro-B Natriuret Pep 04/23/20 14:50 Creatine Kinase CK-MB (CK-2) 2.09 Troponin I 0.057 NT-Pro-B Natriuret Pep Impressions: Modified Barium Swallow 04/26/20 00:01 IMPRESSION: LARYNGEAL PENETRATION WITH THIN BARIUM, WITH TRACE ASPIRATION FROM RESIDUALS. PLEASE SEE SPEECH PATHOLOGIST REPORT FOR OTHER FINDINGS AND RECOMMENDATIONS. PICC Line Insertion 05/07/20 00:00 IMPRESSION: SUCCESSFUL PLACEMENT OF A 5 FR DUAL LUMEN 47 CM PICC IN THE LEFT BRACHIOCEPHALIC VEIN. KUB X-Ray 05/16/20 11:57 IMPRESSION: NG tube as described. Findings as described. Chest X-Ray 05/16/20 23:15 IMPRESSION: Improved aeration of the left lung with significantly worsening aeration of the right lung. Assessment and Plan - Diagnosis (1) Acute on chronic respiratory failure with hypoxia and hypercapnia Is this a current diagnosis for this admission?: Yes Plan: Per Previous Physician: "The patient has a weak cough and needs to be stressed to get off the vent. He has been reluctant to do this. He chronically aspirates and has an NG for feeds and medications now. He needs to be both lavaged and suctioned or he will quickly plug up." (2) Bilateral pneumonia Qualifiers: Pneumonia type: due to unspecified organism Lung location: lower lobe of lung Qualified Code(s): J18.9 - Pneumonia, unspecified organism Is this a current diagnosis for this admission?: Yes Plan: Per Previous Physician: "04/30/2020-complete vancomycin therapy as ordered. Repeat chest x-ray to assess progress. Still with very congested breath sounds but this could all be central. 05/01/2020-still with right lower lobe infiltrate. White blood cell count is slightly better but the patient did require BiPAP therapy today. We will kenia nue to monitor closely. We may need to repeat a sputum culture if his clinical status worsens. 05/02/2020-clinically improved. Chest x-ray still shows right lower lobe infiltrate. Breathing more comfortably today. Continue to work towards decannulation. 05/03/2020-antibiotic therapy completed. After today's episode may need to repeat chest x-ray and reassess. 05/04/2020-repeat chest x-ray today shows slight improvement. Antibiotics have been completed. White blood cell count is up to 16 from 11. We will recheck white blood cell count tomorrow. Monitor for other signs of infection including fever and chills or abrupt change in clinical condition 05/05/2020-left lung is actually clear. X-ray reveals slight increase in the right lower lobe opacity. White blood cell count did not decrease. Trying to avoid recurrent antibiotic therapy. 05/06/2020-right lung x-ray appears worse. Clinical exam reveals rhonchi and extremely congested cough that is unchanged from yesterday. Sputum specimen pending. Will need to decide colonization versus acute infection. With his white count improving without antibiotics colonization may be more likely. He continues to aspirate which significantly complicates his respiratory status. 05/10/2020-chest examination bilateral entry was decreased. Few rhonchi at the bases. Are pending at this time. On IV ampicillin, rocephin. Afebrile. 05/11/2020-pulse ox 100% on 6 L. Not in respiratory distress. Comfortably in the bed watching TV. To continue IV ampicillin, ceftriaxone. Started on linezolid for VRE. 05/12/2020-pulse ox is 96% 6 L of oxygen. Comfortably in the bed. He has a trach." (3) Acute kidney injury superimposed on chronic kidney disease Is this a current diagnosis for this admission?: Yes (4) Acute metabolic encephalopathy Is this a current diagnosis for this admission?: Yes (5) Acute respiratory failure due to severe acute respiratory syndrome coronavirus 2 (SARS-CoV-2) infection Is this a current diagnosis for this admission?: Yes Plan: recent infection - resolved on prior admission (6) Acute respiratory failure with hypoxia and hypercapnia Is this a current diagnosis for this admission?: Yes (7) Bacteremia due to Enterococcus Is this a current diagnosis for this admission?: Yes (8) Chronically on opiate therapy Is this a current diagnosis for this admission?: Yes (9) COVID-19 Is this a current diagnosis for this admission?: Yes (10) Critical illness polyneuropathy Is this a current diagnosis for this admission?: Yes (11) Diabetes mellitus type 2 in nonobese Is this a current diagnosis for this admission?: Yes (12) Hyperglycemia due to type 2 diabetes mellitus Qualifiers: Diabetes mellitus fdc insulin use: with emt intermediate use Qualified Code(s): E11.65 - Type 2 diabetes mellitus with hyperglycemia; Z79.4 - bed bug exterminator (current) use of insulin Is this a current diagnosis for this admission?: Yes (13) Hyperlipidemia Qualifiers: Hyperlipidemia type: unspecified Qualified Code(s): E78.5 - Hyperlipidemia, unspecified Is this a current diagnosis for this admission?: Yes (14) Hypertension Is this a current diagnosis for this admission?: Yes (15) Malnutrition Qualifiers: Malnutrition type: protein-calorie malnutrition Protein-calorie malnutrition severity: severe Qualified Code(s): E43 - Unspecified severe protein-calorie malnutrition Is this a current diagnosis for this admission?: Yes (16) Medical non-compliance Is this a current diagnosis for this admission?: Yes (17) Sepsis associated hypotension Is this a current diagnosis for this admission?: Yes - Plan Summary Summary: Per Previous Physician: "Mr. Freddie Sena is a 60-year-old man with HTN, HLD, DM2, CHF and recent pro longed hospitalization for acute respiratory failure secondary to COVID-19 pneumonia s/p tracheostomy placement and discharge to a nursing home facility for continued rehabilitation. He returned to [facility] on 04/20/20 SOB, and was found to have hypoxemia, tachycardia, hypothermia and hypotension. A right femoral line was urgently placed for IV access. " Enterococcus Bacteremia (present on admission) CLABSI and MSSA Bacteremia (diagnosed 05/07/2020) -Per Previous Physician: "Blood cultures drawn on admission were obtained from the R hand and from the R femoral line; one bottle in each set (peripheral and central line) grew Enterococcus faecalis susceptible to penicillin and ampicillin. He was treated with IV vancomycin (in light of a reported penicillin allergy) for approximately 10 days (04/20-04/30). The patient refused repeat blood cultures until 05/07/20, at which time a PICC line was placed. Two sets of blood cultures were obtained - one set from the PICC line and one set from the R femoral line. After obtaining BCx, the R femoral line was removed on 05/07/2020. Both of these sets of BCx from 05/07 grew bacteria. One set grew GPCs in clusters. The other set grew VRE and presumptive MSSA. Therefore, on 05/08/2020, he was started on treatment with ampicillin and vancomycin (review of his chart raised doubt that he had a true IgE mediated penicillin allergy, as he had previously received several courses of cephalosporins). The patient has since been refusing attempts at placing PIV access in order to be able to remove his PICC line and he also refused to allow repeat BCx on 05/08. He finally allowed repeat BCx to be drawn from the PICC on 05/09. ID was consulted on 05/09 for further recommendations, which include: * Enterococcus bacteremia * This potentially represents a recurrence of the previous Enterococcal faecalis bacteremia, but right now it is not possible to definitively say this. The identification and susceptibilities for the organism are pending. The presence of vancomycin resistance for the new isolate could be acquired in the course of the prior treatment. If this is indeed a recurrence, it raises the question of a persistent focus of infection and re-seeding or failure to clear the bloodstream. * obtain TTE * continue ceftriaxone and ampicillin (ampicillin + Rocephin is an effective alternative regimen to the traditional ampicillin + gentamicin) * Depending on whether or not recurrence of E faecalis bacteremia is unex plained and endocarditis is likely, Rocephin could be continued at the 2 g q12h dose or changed if this higher dose is not required. * The previous E faecalis isolate was susceptible to ampicillin. This remains the case for most vancomycin-resistant E faecalis. Follow culture results for identification of the Enterococcus species and susceptibility results. If the patient becomes hemodynamically unstable or toxic before identification/susceptibilities return, daptomycin can be used at approximately 8-10 mg/kg daily in place of the ampicillin. * MSSA bacteremia in the setting of a PICC line * Source unclear: infected line vs bacteremia secondary to pneumonia (aspiration vs tracheitis) * Isolation of organisms from tracheal aspirate (like any non-sterile site) has to be taken into context, and clinically - WBC count has been stable, no new fever - but he has required an increased amount of oxygen from 6L to 10 L in the past 2 days and has had increased RLL infiltrate on CXR. Leah in tracheal aspirate is usually a colonizer. Stenotrophomonas maltophilia can also be a colonizer and, in the setting of other obviously invasive pathogens, targeting therapy to include it is not necessarily warranted as long as the patient is improving with treatment aimed at the MSSA and other interventions to reduce aspiration risk and/or optimize volume status. * The PICC line should be removed. It is not recommended to attempt salvaging a line when there is Staph aureus bacteremia due to the risk for failure and relapse. * Would avoid placing a emt intermediate line until blood cultures are known to be negative for at least 48 hours. * obtain TTE * continue Rocephin * Duration of therapy should be, at a minimum, 2 weeks from date of negative blood cultures and removal of PICC line, assuming that no endocarditis is present or metastatic foci of infection. If such is present, duration of treatment should be longer." -Sent back to ICU for respiratory distress and acute respiratory failure on 05/14 -Daptomycin started in ICU until 05/21 Per belt brander, patient needs to have frequent pulmonary lavage and suctioning to avoid future mucous plugging Acute on chronic respiratory failure with hypoxia and hypercapnia: -Per Previous Physician: "he had an increase in WBC on 05/04- and there was concern for possible aspiration event vs tracheitis vs HAP. CXR was repeated on 05/06 and showed increased opacification in the right lung base. He has remained afebrile, on 6- 10 L O2 over the duration of his hospitalization. He had a tracheal aspirate on 05/05/20 which showed growth of Leah albicans, Stenotrophomonas maltophilia, and MSSA. He is currently on antibiotics and WBC has normalized. He is a high aspiration risk but he is unwilling to stop eating by mouth and refuses a PEG tube." -Frequently requesting to go back on ventilator and reluctant to wean Severe Protein Calorie Malnutrition: -Per Previous Physician: "due to poor PO intake. Unfortunately patient has been having aspiration events and also refusing other modes of nutrition. On 04/26/2020 patient had a modified barium swallow and recommendation was for pured diet with aspiration precautions. PICC placed on 05/07 and TPN was briefly initiated until his BCx r esulted, and TPN was thus discontinued (due to ongoing bacteremia)." Tracheostomy in place: -Per Previous Physician: "Continue tracheostomy care. Aggressive pulmonary toileting. Inner cannula is showing evidence of the increased secretions. Because of his insistence on eat ing PO, he has significantly delaying the possibility of decannulation." Hyperglycemia due to type 2 diabetes mellitus: -Per Previous Physician: "glucose control is reasonable. His intake does vary. He continues to refuse PEG tube placement. This would in fact significantly improve the trajectory of his recovery. This has been suggested multiple times and he adamantly refuses each time. Will need to adjust treatment as his diet changes." Candiduria: -Per Previous Physician: "Urine culture positive for Leah albicans. The patient does have an indwelling Varner catheter which has been exchanged this admission." -colonized bladder Chronic Urinary Retention: -exchange Varner catheter every 4 weeks to prevent CAUTI. Anemia of Chronic Disease: -hemoglobin has been 7-8 since January 2020. Ferritin elevated (not iron deficiency). He has no evidence of active blood loss. Critical illness myopathy: -PT and OT due to the severe deconditioning from his prolonged illness and prolonged hospitalizations. Medical non-adherence: -Per Previous Physician: "he has been requesting food that is not on his recommended diet. He is, at times, a willing participant in the treatment plan but, at other times, lacks insight and has poor judgment. He remains a FULL CODE and does not wish to change his code status, despite ongoing dysphagia, oral intake and high risk for future aspiration episodes. We discussed at length today the risk of morbidity and mortality due to bacteremia, the importance of antibiotics, the importance of removing his PICC line and allowing us to place PIVs, etc. He is bargaining and stating that he will accept certain medications and medical interventions only if he can get IV opioids for treatment of his chronic MSK pain. We agreed that I would change his oral oxycodone dosage to an equivalent IV morphine dosage, but that he can no longer decline these medical interventions and he is agreeable at this time. Discussed with RN." - Time Time Spent with patient: 35 or more minutes Medications reviewed and adjusted accordingly: Yes Anticipated Discharge Disposition: Home, Self Care Anticipated Discharge Timeframe: Undetermined - Inpatient Certification Based on my medical assessment, after consideration of the patient's comorbidities, presenting symptoms, or acuity I expect that the services needed warrant INPATIENT care.: Yes I certify that my determination is in accordance with my understanding of Medicare's requirements for reasonable and necessary INPATIENT services [42 CFR 412.3e].: Yes Medical Necessity: Significant Comorbidiites Make Outpatient Treatment Too Risky, Need Close Monitoring Due to Risk of Patient Decompensation, Need for IV Antibiotics, Risk of Complication if Not Cared For in Hospital, Risk of Diagnosis Which Will Require Inpatient Eval/Care/Monitoring
[2020-05-20] MEDS: NORMAL SALINE 1000 ML 1,000 ML IV PRN (17:47)
[2020-05-20] MEDS: DIPHENHYDRAMINE HCL 50 MG/ML VIAL IV PRN (23:01)
[2020-05-21] MEDS: NITROGLYCERIN 2% OINTMENT 1 GM PACKET TP SCH ×4 (00:36→17:59)
[2020-05-21] MEDS: POTASSIUM CHLORIDE 20 MEQ PACKET NG SCH ×3 (02:31→18:10)
[2020-05-21] MEDS: OXYCODONE HCL IR 5 MG TABLET NG SCH ×4 (03:31→22:11)
[2020-05-21] MEDS: DIPHENHYDRAMINE HCL 50 MG/ML VIAL IV PRN ×3 (03:31→22:12)
[2020-05-21] MEDS: METOPROLOL TARTRATE PF/INJ 5 MG/5 ML SDV IV PRN (06:16)
[2020-05-21 06:32] LABS: ABSOLUTE BASOPHILS # (AUTO) 0.1 10^3/uL (0.0-0.2); ABSOLUTE EOSINOPHILS # (AUTO) 0.4 10^3/uL (0.0-0.6); ABSOLUTE LYMPHOCYTES (AUTO) 1.4 10^3/uL (0.5-4.7); ABSOLUTE MONOCYTES (AUTO) 1.3 10^3/uL (0.1-1.4); ABSOLUTE NEUT (AUTO) 11.6 10^3/uL (1.7-8.2); BASOPHILS % (AUTO) 0.4 % (0-2); EOSINOPHILS % (AUTO) 2.5 % (0-6); LYMPHOCYTES % (AUTO) 9.3 % (13-45); MEAN CORPUSCULAR HEMOGLOBIN 27.3 pg (27.0-33.4); MEAN CORPUSCULAR HGB CONC 32.1 g/dL (32.0-36.0); MEAN CORPUSCULAR VOLUME 85 fl (80-97); MONOCYTES % (AUTO) 8.8 % (3-13); PLATELET COUNT 179 10^3/uL (150-450); RED BLOOD COUNT 2.94 10^6/uL (4.35-5.55); RED CELL DISTRIBUTION WIDTH 17.5 % (11.5-14.0); TOTAL CELLS COUNTED % (AUTO) 100 %; WHITE BLOOD COUNT 14.6 10^3/uL (4.0-10.5)
[2020-05-21] MEDS: METOCLOPRAMIDE HCL INJ/PF 10 MG/2 ML SDV IV SCH ×3 (06:36→22:14)
[2020-05-21 07:05] LABS: ANION GAP 5 (5-19); BLOOD UREA NITROGEN 11 mg/dL (7-20); CALCIUM 7.7 mg/dL (8.4-10.2); CARBON DIOXIDE 29 mmol/L (22-30); CHLORIDE 104 mmol/L (98-107); GLUCOSE 123 mg/dL (75-110)
[2020-05-21] MEDS: INSULIN REG, HUMAN 100 UNIT/ML 3 ML VIAL (PYX) SUBCUT SCH ×4 (08:00→22:15)
--- NOTE | 2020-05-21 08:19 | RADIOLOGY REPORT (SQ) ---
EXAM DESCRIPTION: CHEST SINGLE VIEW IMAGES COMPLETED DATE/TIME: 05/21/2020 8:05 am REASON FOR STUDY: NG tube placement/ lung patency COMPARISON: 05/16/2020. EXAM PARAMETERS: NUMBER OF VIEWS: One view. TECHNIQUE: Single frontal radiographic view of the chest acquired. RADIATION DOSE: NA LIMITATIONS: None. FINDINGS: LUNGS AND PLEURA: Diffuse bilateral airspace disease. Worsening on the left. Right pleur al effusion. MEDIASTINUM AND HILAR STRUCTURES: No masses. Contour normal. HEART AND VASCULAR STRUCTURES: Heart normal in size. Normal vasculature. BONES: No acute findings. HARDWARE: Tracheostomy tube, nasogastric tube, PICC line, and spinal hardware. OTHER: No other significant finding. IMPRESSION: DIFFUSE BILATERAL AIRSPACE DISEASE, WORSE ON THE LEFT. TECHNICAL DOCUMENTATION: JOB ID: [id number] [employer]- All Rights Reserved Reading location - IP/workstation name: [email or web address]
[2020-05-21] MEDS: PHOSPHORUS #1 250 MG TABLET PO SCH ×4 (08:57→22:11)
[2020-05-21] MEDS: LORAZEPAM 1 MG TABLET NG PRN (09:27)
[2020-05-21] MEDS: LISINOPRIL 5 MG TABLET NG SCH ×2 (10:29→22:19)
[2020-05-21] MEDS: PANTOPRAZOLE SODIUM 40 MG VIAL IV SCH (10:29)
[2020-05-21] MEDS: NYSTATIN TOPICAL POWDER 15 GM TP SCH ×2 (11:01→18:10)
--- NOTE | 2020-05-21 12:42 | PDOC CRITICAL CARE PROG REPORT ---
General Date:: 05/16/20 Resuscitation Status: Full Code Events in the past 12 to 24 Hours:: Still in need of vent support and suctioning. Review of systems relevant to events:: Pulmonary Reason for ICU Addmission:: On chronic ventilator, tube feeds - Medications: Medications reviewed and adjusted accordingly: Yes Vasopressors:: None Sedation:: None Physical Exam Vital Signs: Temp Pulse Resp BP Pulse Ox 97.9 F 98 14 106/67 99 05/21/20 10:00 05/21/20 07:00 05/20/20 20:33 05/20/20 20:33 05/21/20 03:48 Intake & Output 05/20/20 05/21/20 05/22/20 06:59 06:59 06:59 Intake Total 779 2024 66 Output Total 310 450 Balance 469 1574 66 Weight 65.3 kg 64.8 kg Weight/Height Weight 64.8 kg Height 5 ft 7 in General appearance: PRESENT: no acute distress, thin Head exam: PRESENT: atraumatic, normocephalic Eye exam: PRESENT: conjunctiva pink, EOMI, PERRLA. ABSENT: scleral icterus Ear exam: PRESENT: normal external ear exam Mouth exam: PRESENT: moist, tongue midline Respiratory exam: PRESENT: clear to auscultation yousfi, decreased breath sounds. ABSENT: rales, rhonchi, wheezes Cardiovascular exam: PRESENT: RRR. ABSENT: diastolic murmur, rubs, systolic murmur GI/Abdominal exam: PRESENT: normal bowel sounds, soft. ABSENT: distended, guarding, mass, organolmegaly, rebound, tenderness Rectal exam: PRESENT: deferred Gentrourinary exam: PRESENT: indwelling catheter Extremities exam: PRESENT: calf tenderness Musculoskeletal exam: PRESENT: normal inspection Neurological exam: PRESENT: alert, awake, oriented to person, oriented to place, oriented to time, oriented to situation, CN II-XII grossly intact. ABSENT: motor sensory deficit Skin exam: PRESENT: dry, intact, warm. ABSENT: cyanosis, rash Tubes/Lines: PRESENT: Other - Tracheotomy. Laboratory/Radiographs Laboratory Results: 05/21/20 06:13 05/21/20 06:13 05/21/20 05/21/20 06:13 06:13 WBC 14.6 H RBC 2.94 L Hgb 8.0 L Hct 25.0 L MCV 85 MCH 27.3 MCHC 32.1 RDW 17.5 H Plt Count 179 Seg Neutrophils % 79.0 H Sodium 138.1 Potassium 5.0 Chloride 104 Carbon Dioxide 29 Anion Gap 5 BUN 11 Creatinine 0.76 Est GFR ( Amer) > 60 Glucose 123 H Calcium 7.7 L 04/20/20 04/23/20 04/23/20 09:00 01:55 01:55 Creatine Kinase < 20 L CK-MB (CK-2) 2.20 Troponin I < 0.012 0.082 NT-Pro-B Natriuret Pep 45160 H 04/23/20 04/23/20 04/23/20 05:58 08:22 14:50 Creatine Kinase < 20 L < 20 L CK-MB (CK-2) 2.24 Troponin I 0.066 NT-Pro-B Natriuret Pep 04/23/20 14:50 Creatine Kinase CK-MB (CK-2) 2.09 Troponin I 0.057 NT-Pro-B Natriuret Pep Impressions: Modified Barium Swallow 04/26/20 00:01 IMPRESSION: LARYNGEAL PENETRATION WITH THIN BARIUM, WITH TRACE ASPIRATION FROM RESIDUALS. PLEASE SEE SPEECH PATHOLOGIST REPORT FOR OTHER FINDINGS AND RECOMM ENDATIONS. PICC Line Insertion 05/07/20 00:00 IMPRESSION: SUCCESSFUL PLACEMENT OF A 5 FR DUAL LUMEN 47 CM PICC IN THE LEFT BRACHIOCEPHALIC VEIN. KUB X-Ray 05/16/20 11:57 IMPRESSION: NG tube as described. Findings as described. Chest X-Ray 05/21/20 00:00 IMPRESSION: DIFFUSE BILATERAL AIRSPACE DISEASE, WORSE ON THE LEFT. All labs, radiographs, diagnostic studies and EKGs were personally reviewed: Yes In addition, reports of radiographic and diagnostic studies were read: Yes Assessment and Plan - Diagnosis (1) Acute on chronic respiratory failure with hypoxia and hypercapnia Is this a current diagnosis for this admission?: Yes Plan: He needs to be weaned from the vent and will likely need to be stressed a bit to do this. When he needs periodic suctioning he also needs lavage as well. (2) Diabetes Qualifiers: Diabetes mellitus type: type 2 Is this a current diagnosis for this admission?: Yes Plan: Controlled (3) MSSA bacteremia Is this a current diagnosis for this admission?: Yes Plan: Continue daptomycin (4) Malnutrition Qualifiers: Malnutrition type: protein-calorie malnutrition Protein-calorie malnut milly severity: severe Qualified Code(s): E43 - Unspecified severe protein- calorie malnutrition Is this a current diagnosis for this admission?: Yes Plan: He really needs to eat or receive tube feeds. (5) Hypokalemia Is this a current diagnosis for this admission?: Yes Plan: Level is 3.0, continue to replace. Plan Summary: Again try to wean off vent. Critical Time Critical Time (minutes): 35 Level of Care: ICU Anticipated discharge: SNF Anticipated DC Timeframe: Other -: 1. The care of a critical patient is a dynamic process. This note is a medical device sales representative synopsis but static in nature. The timeframe for treatments given in order is not necessarily the actual time these treatments may have been done. 2. This patient requires critical care secondary to ongoing requirements for therapy not offered or safe outside the critical care environment. Transfer to a lower level of care will result in altered life or limb morbidity and mortality. 3. Multidisciplinary rounds completed. 4. ABCDE bundle addressed.
--- NOTE | 2020-05-21 17:41 | PDOC PROGRESS REPORT ---
Subjective Subjective:: Per admitting physician: "FREDDIE SENA JR is a 60 year old male, past medical history of type 2 diabetes hypertension CHF narcotic dependence CKD who was recently discharged from [facility] April 19, 2020 after being admitted for 89 days secondary to acute respiratory failure from COVID pneumonia. He was discharged with a tracheostomy tube uncuffed. Before discharge he has been able to speak and eat and the plan was to eventually remove the tracheostomy at [facility]. Sent back to the emergency room for evaluation of shortness of breath. EMS was called by the facility because the patient was diaphoretic with a blood glucose of 30 staff administered 1 mg glucagon in a tube and a half of oral glucose prior to EMS arrival and recheck of blood glucose was 40. Upon EMS arrival patient was pale with diminished breath sounds so he was placed on 15 L O2 via nonrebreather O2 sats went up to 86% and blood glucose was 147 upon ED arrival. In the emergency room he apparently continued to be hypoxic hence a trach cuff was placed and he was put back on mechanical ventilation briefly. He was also noted to be hypotensive hence central line was placed by Dr. Jean-Baptiste. Patient was given IV fluids. Repeat chest x-ray showed improvement of his diffuse bibasilar opacities compared from previous chest x-ray. Dr. Chandler evaluated him in the ED who felt that he does not need ICU admission. He was given 4 L of IV fluids. He was eventually transitioned to tracheal collar and was maintaining his O2 saturation to 95%. Patient was then admitted for further management. WBC count 19.5 in the ED he was given 1 dose of aztreonam and vancomycin." Per Previous Physician: "05/14/2020 MUCOUS PLUGGING, ACUTE HYPOXIC RESPIRATORY FAILURE Patient was seen early on in rounds this morning. At the time patient was noted to sound congested. He however had been suctioned and apparently no further suctioning required at that time. I discussed with the patient the need to be able to give him medications either through an NG tube or PEG tube IV fluids or TPN or combination of all these however patient refused. Patient was new to me today and after discussing with the nurse I did find out that he had been refusing multiple modalities of treatment and management. About 30 minutes after saw this patient when he was still relatively stable a rapid response was called and apparently he went into respiratory distress. He was found to be hypoxic. By the time he got there he was cyanotic. His oxygen saturation was in the 60s also. He was 100% oxygen and his BiPAP setting was changed. Multiple attempts to oxygenate him failed. It was felt that patient will be better served in the intensive care unit. Dinkey Press Operator was informed and Came to assess patient. Patient was transferred to the unit. Please see Dr. Hernández's notes for further details chest x-ray obtained reveals diffuse opaci fication in the left chest possibly due to extensive infiltrate atelectasis collapse pleural effusion with improved aeration in the right lung base. This is consistent with his lung findings which shows grossly diminished air entry." 05/20/2020 Patient sent out of the ICU yesterday afternoon. Per my discussion with Dr. Chandler, patient has frequent mucous plugging and needs to be lavaged and suc tioned by respiratory therapy frequently. It is likely the patient will continue mucous plugging intermittently and may need to be sent back to the ICU at some point. He has been maintained on trach collar with intermittent ventilatory support. Patient was asking for increases in his narcotics and I discussed the risks of respiratory depression if we were to pursue this. We will keep his narcotics at the current dosing and frequency for now. 05/21/2020 Patient had a episode of mucous plugging which resolved with aggressive lavage and suctioning by RT. Patient also had a problem with his NG feeding tube where it was somewhat displaced and nursing replaced this infected follow-up chest x- ray To confirm location. Blood culture on 05/09 remains negative. Latest chest x-ray shows diffuse bilateral disease which could potentially be worse. Patient is calm and resting today and does not have any new complaints. Reason For Visit: MUCOUS PLUGGING, ACUTE HYPOXIC RESPIRATORY FAILURE Physical Exam Vital Signs: Temp Pulse Resp BP Pulse Ox 97.9 F 92 14 106/67 99 05/21/20 10:00 05/21/20 14:00 05/20/20 20:33 05/20/20 20:33 05/21/20 03:48 Intake & Output 05/20/20 05/21/20 05/22/20 06:59 06:59 06:59 Intake Total 779 2024 513 Output Total 310 450 Balance 469 1574 513 Weight 65.3 kg 64.8 kg Exam: General appearance: PRESENT: no acute distress, frail and chronically ill- appearing, resting comfortably today Head exam: PRESENT: atraumatic, normocephalic Eye exam: PRESENT: conjunctiva pink. ABSENT: scleral icterus Mouth exam: PRESENT: moist Respiratory exam: PRESENT: Perhaps rhonchi bilateral, very mild/scant, no whe ezing; trach collar in place Cardiovascular exam: PRESENT: RRR. ABSENT: diastolic murmur, rubs, systolic murmur GI/Abdominal exam: PRESENT: normal bowel sounds, soft. NG tube in place ABSENT: distended, guarding, mass, organolmegaly, rebound, tenderness Neurological exam: PRESENT: alert, awake, oriented to person, oriented to place, oriented to time, oriented to situation Psychiatric exam: PRESENT: appropriate affect, normal mood Skin exam: PRESENT: dry, intact, warm Results Laboratory Results: 05/21/20 06:13 05/21/20 06:13 05/21/20 05/21/20 06:13 06:13 WBC 14.6 H RBC 2.94 L Hgb 8.0 L Hct 25.0 L MCV 85 MCH 27.3 MCHC 32.1 RDW 17.5 H Plt Count 179 Seg Neutrophils % 79.0 H Sodium 138.1 Potassium 5.0 Chloride 104 Carbon Dioxide 29 Anion Gap 5 BUN 11 Creatinine 0.76 Est GFR ( Amer) > 60 Glucose 123 H Calcium 7.7 L 04/20/20 04/23/20 04/23/20 09:00 01:55 01:55 Creatine Kinase < 20 L CK-MB (CK-2) 2.20 Troponin I < 0.012 0.082 NT-Pro-B Natriuret Pep 04986 H 04/23/20 04/23/20 04/23/20 05:58 08:22 14:50 Creatine Kinase < 20 L < 20 L CK-MB (CK-2) 2.24 Troponin I 0.066 NT-Pro-B Natriuret Pep 04/23/20 14:50 Creatine Kinase CK-MB (CK-2) 2.09 Troponin I 0.057 NT-Pro-B Natriuret Pep Impressions: Modified Barium Swallow 04/26/20 00:01 IMPRESSION: LARYNGEAL PENETRATION WITH THIN BARIUM, WITH TRACE ASPIRATION FROM RESIDUALS. PLEASE SEE SPEECH PATHOLOGIST REPORT FOR OTHER FINDINGS AND RECOMMENDATIONS. PICC Line Insertion 05/07/20 00:00 IMPRESSION: SUCCESSFUL PLACEMENT OF A 5 FR DUAL LUMEN 47 CM PICC IN THE LEFT BRACHIOCEPHALIC VEIN. KUB X-Ray 05/16/20 11:57 IMPRESSION: NG tube as described. Findings as described. Chest X-Ray 05/21/20 00:00 IMPRESSION: DIFFUSE BILATERAL AIRSPACE DISEASE, WORSE ON THE LEFT. Assessment and Plan - Diagnosis (1) Acute on chronic respiratory failure with hypoxia and hypercapnia Is this a current diagnosis for this admission?: Yes (2) Bilateral pneumonia Qualifiers: Pneumonia type: due to unspecified organism Lung location: lower lobe of lung Qualified Code(s): J18.9 - Pneumonia, unspecified organism Is this a current diagnosis for this admission?: Yes (3) Acute kidney injury superimposed on chronic kidney disease Is this a current diagnosis for this admission?: Yes (4) Acute metabolic encephalopathy Is this a current diagnosis for this admission?: Yes (5) Acute respiratory failure due to severe acute respiratory syndrome coronavirus 2 (SARS-CoV-2) infection Is this a current diagnosis for this admission?: Yes (6) Acute respiratory failure with hypoxia and hypercapnia Is this a current diagnosis for this admission?: Yes (7) Bacteremia due to Enterococcus Is this a current diagnosis for this admission?: Yes (8) Chronically on opiate therapy Is this a current diagnosis for this admission?: Yes (9) COVID-19 Is this a current diagnosis for this admission?: Yes (10) Critical illness polyneuropathy Is this a current diagnosis for this admission?: Yes (11) Diabetes mellitus type 2 in nonobese Is this a current diagnosis for this admission?: Yes (12) Hyperglycemia due to type 2 diabetes mellitus Qualifiers: Diabetes mellitus mcfp insulin use: with manufacturing scheduler use Qualified Code(s): E11.65 - Type 2 diabetes mellitus with hyperglycemia; Z79.4 - care home (current) use of insulin Is this a current diagnosis for this admission?: Yes (13) Hyperlipidemia Qualifiers: Hyperlipidemia type: unspecified Qualified Code(s): E78.5 - Hyperlipidemia, unspecified Is this a current diagnosis for this admission?: Yes (14) Hypertension Is this a current diagnosis for this admission?: Yes (15) Malnutrition Qualifiers: Malnutrition type: protein-calorie malnutrition Protein-calorie malnutrition severity: severe Qualified Code(s): E43 - Unspecified severe protein-calorie malnutrition Is this a current diagnosis for this admission?: Yes (16) Medical non-compliance Is this a current diagnosis for this admission?: Yes (17) Sepsis associated hypotension Is this a current diagnosis for this admission?: Yes - Plan Summary Summary: Per Previous Physician: "Mr. Freddie Sena is a 60-year-old man with HTN, HLD, DM2, CHF and recent prolonged hospitalization for acute respiratory failure secondary to COVID-19 pneumonia s/p tracheostomy placement and discharge to a residential facility for continued rehabilitation. He [facility] on 04/20/20 SOB, and was found to have hypoxemia, tachycardia, hypothermia and hypotension. A right femoral line was urgently placed for IV access. " Enterococcus Bacteremia (present on admission) CLABSI and MSSA Bacteremia (diagnosed 05/07/2020) -Per Previous Physician: "Blood cultures drawn on admission were obtained from the R hand and from the R femoral line; one bottle in each set (peripheral and central line) grew Enterococcus faecalis susceptible to penicillin and ampicillin. He was treated with IV vancomycin (in light of a reported penicillin allergy) for approximately 10 days (04/20-04/30). The patient refused repeat blood cultures until 05/07/20, at which time a PICC line was placed. Two sets of blood cultures were obtained - one set from the PICC line and one set from the R femoral line. After obtaining BCx, the R femoral line was removed on 05/07/2020. Both of these sets of BCx from 05/07 grew bacteria. One set grew GPCs in clusters. The other set grew VRE and presumptive MSSA. Therefore, on 05/08/2020, he was started on treatment with ampicillin and vancomycin (review of his chart raised doubt that he had a true IgE mediated penicillin allergy, as he had previously received several courses of cephalosporins). The patient has since been refusing attempts at placing PIV access in order to be able to remove his PICC line and he also refused to allow repeat BCx on 05/08. He finally allowed repeat BCx to be drawn from the PICC on 05/09. ID was consulted on 05/09 for further recommendations, which include: * Enterococcus bacteremia * This potentially represents a recurrence of the previous Enterococcal debbie calis bacteremia, but right now it is not possible to definitively say this. The identification and susceptibilities for the organism are pending. The presence of vancomycin resistance for the new isolate could be acquired in the course of the prior treatment. If this is indeed a recurrence, it raises the question of a persistent focus of infection and re-seeding or failure to clear the bloodstream. * obtain TTE * continue ceftriaxone and ampicillin (ampicillin + Rocephin is an effective alternative regimen to the traditional ampicillin + gentamicin) * Depending on whether or not recurrence of E faecalis bacteremia is unexplained and endocarditis is likely, Rocephin could be continued at the 2 g q12h dose or changed if this higher dose is not required. * The previous E faecalis isolate was susceptible to ampicillin. This remains the case for most vancomycin-resistant E faecalis. Follow culture results for identification of the Enterococcus species and susceptibility results. If the patient becomes hemodynamically unstable or toxic before identification/susceptibilities return, daptomycin can be used at approximately 8-10 mg/kg daily in place of the ampicillin. * MSSA bacteremia in the setting of a PICC line * Source unclear: infected line vs bacteremia secondary to pneumonia (as piration vs tracheitis) * Isolation of organisms from tracheal aspirate (like any non-sterile site) has to be taken into context, and clinically - WBC count has been stable, no new fever - but he has required an increased amount of oxygen from 6L to 10 L in the past 2 days and has had increased RLL infiltrate on CXR. Leah in tracheal aspirate is usually a colonizer. Stenotrophomonas maltophilia can also be a colonizer and, in the setting of other obviously invasive pathogens, targeting therapy to include it is not necessarily warranted as long as the patient is improving with treatment aimed at the MSSA and other interventions to reduce aspiration risk and/or optimize volume status. * The PICC line should be removed. It is not recommended to attempt salvaging a line when there is Staph aureus bacteremia due to the risk for failure and relapse. * Would avoid placing a manufacturing scheduler line until blood cultures are known to be negative for at least 48 hours. * obtain TTE * continue Rocephin * Duration of therapy should be, at a minimum, 2 weeks from date of negative blood cultures and removal of PICC line, assuming that no endocarditis is present or metastatic foci of infection. If such is present, duration of treatment should be longer." -Sent back to ICU for respiratory distress and acute respiratory failure on 05/14 -Daptomycin started in ICU until 05/21 Per stitch welder, patient needs to have frequent pulmonary lavage and suctioning to avoid future mucous plugging Continues to have mucus plugging intermittently which is relieved by aggressive lavage and suctioning Acute on chronic respiratory failure with hypoxia and hypercapnia: -Per Previous Physician: "he had an increase in WBC on 05/04- and there was concern for possible aspiration event vs tracheitis vs HAP. CXR was repeated on 05/06 and showed increased opacification in the right lung base. He has remained afebrile, on 6- 10 L O2 over the duration of his hospitalization. He had a tracheal aspirate on 05/05/20 which showed growth of Leah albicans, Stenotrophomonas maltophilia, and MSSA. He is currently on antibiotics and WBC has normalized. He is a high aspiration risk but he is unwilling to stop eating by mouth and refuses a PEG tube." -Frequently requesting to go back on ventilator and reluctant to wean Severe Protein Calorie Malnutrition: -Per Previous Physician: "due to poor PO intake. Unfortunately patient has been having aspiration events and also refusing other modes of nutrition. On 04/26/2020 patient had a modified barium swallow and recommendation was for pured diet with aspiration precautions. PICC placed on 05/07 and TPN was briefly initiated until his BCx resulted, and TPN was thus discontinued (due to ongoing bacteremia)." NG tube with tube feeds running; patient pulled out NG tube partially on 05/21 and this was replaced Tracheostomy in place: -Per Previous Physician: "Continue tracheostomy care. Aggressive pulmonary toileting. Inner cannula is showing evidence of the increased secretions. Because of his insistence on eating PO, he has significantly delaying the possibility of decannulation." Hyperglycemia due to type 2 diabetes mellitus: -Per Previous Physician: "glucose control is reasonable. His intake does vary. He continues to refuse PEG tube placement. This would in fact significantly improve the trajectory of his recovery. This has been suggested multiple times and he adamantly refuses each time. Will need to adjust treatment as his diet changes." Candiduria: -Per Previous Physician: "Urine culture positive for Leah albicans. The patient does have an indwelling Varner catheter which has been exchanged this admission." -colonized bladder Chronic Urinary Retention: -exchange Varner catheter every 4 weeks to prevent CAUTI. Anemia of Chronic Disease: -hemoglobin has been 7-8 since January 2020. Ferritin elevated (not iron deficiency). He has no evidence of active blood loss. Critical illness myopathy: -PT and OT due to the severe deconditioning from his prolonged illness and prolonged hospitalizations. Medical non-adherence: -Per Previous Physician: "he has been requesting food that is not on his recommended diet. He is, at times, a willing participant in the treatment plan but, at other times, lacks insight and has poor judgment. He remains a FULL CODE and does not wish to change his code status, despite ongoing dysphagia, oral intake and high risk for future aspiration episodes. We discussed at length today the risk of morbidity and mortality due to bacteremia, the importance of antibiotics, the importance of removing his PICC line and allowing us to place PIVs, etc. He is bargaining and stating that he will accept certain medications and medical interventions only if he can get IV opioids for treatment of his chronic MSK pain. We agreed that I would change his oral oxycodone dosage to an equivalent IV morphine dosage, but that he can no longer decline these medical interventions and he is agreeable at this time. Discussed with RN." - Time Time Spent with patient: 35 or more minutes Medications reviewed and adjusted accordingly: Yes Anticipated Discharge Disposition: [facility] Anticipated Discharge Timeframe: within 72 hours - Inpatient Certification Based on my medical assessment, after consideration of the patient's co morbidities, presenting symptoms, or acuity I expect that the services needed warrant INPATIENT care.: Yes I certify that my determination is in accordance with my understanding of Medicare's requirements for reasonable and necessary INPATIENT services [42 CFR 412.3e].: Yes Medical Necessity: Significant Comorbidiites Make Outpatient Treatment Too Risky, Need Close Monitoring Due to Risk of Patient Decompensation, Risk of Complication if Not Cared For in Hospital, Risk of Diagnosis Which Will Require Inpatient Eval/Care/Monitoring
[2020-05-22] MEDS: NITROGLYCERIN 2% OINTMENT 1 GM PACKET TP SCH ×4 (01:22→18:15)
[2020-05-22] MEDS: POTASSIUM CHLORIDE 20 MEQ PACKET NG SCH ×3 (01:24→18:03)
[2020-05-22] MEDS: LORAZEPAM 1 MG TABLET NG PRN (02:02)
[2020-05-22] MEDS: DIPHENHYDRAMINE HCL 50 MG/ML VIAL IV PRN ×4 (04:15→20:35)
[2020-05-22] MEDS: OXYCODONE HCL IR 5 MG TABLET NG SCH ×4 (04:15→22:55)
[2020-05-22] MEDS: METOCLOPRAMIDE HCL INJ/PF 10 MG/2 ML SDV IV SCH ×3 (05:52→22:54)
[2020-05-22] MEDS: NORMAL SALINE 1000 ML 1,000 ML IV PRN (06:11)
[2020-05-22] MEDS: INSULIN REG, HUMAN 100 UNIT/ML 3 ML VIAL (PYX) SUBCUT SCH ×3 (10:16→18:13)
[2020-05-22] MEDS: PHOSPHORUS #1 250 MG TABLET PO SCH ×4 (10:17→22:55)
[2020-05-22] MEDS: LISINOPRIL 5 MG TABLET NG SCH ×2 (10:22→22:56)
[2020-05-22] MEDS: PANTOPRAZOLE SODIUM 40 MG VIAL IV SCH (10:23)
[2020-05-22] MEDS: IPRATROPIUM/ALBUTEROL 0.5-2.5 MG/3 ML AMPUL NEB PRN (10:56)
[2020-05-22] MEDS: NYSTATIN TOPICAL POWDER 15 GM TP SCH ×2 (10:58→18:17)
--- NOTE | 2020-05-22 16:46 | PDOC PROGRESS REPORT ---
Subjective Subjective:: Per admitting physician: "FREDDIE SENA JR is a 60 year old male, past medical history of type 2 diabetes hypertension CHF narcotic dependence CKD who was recently discharged from [facility] April 19, 2020 after being admitted for 89 days secondary to acute respiratory failure from COVID pneumonia. He was discharged with a tracheostomy tube uncuffed. Before discharge he has been able to speak and eat and the plan was to eventually remove the tracheostomy at [facility]. Sent back to the emergency room for evaluation of shortness of breath. EMS was called by the facility because the patient was diaphoretic with a blood glucose of 30 staff administered 1 mg glucagon in a tube and a half of oral glucose prior to EMS arrival and recheck of blood glucose was 40. Upon EMS arrival patient was pale with diminished breath sounds so he was placed on 15 L O2 via nonrebreather O2 sats went up to 86% and blood glucose was 147 upon ED arrival. In the emergency room he apparently continued to be hypoxic hence a trach cuff was placed and he was put back on mechanical ventilation briefly. He was also noted to be hypotensive hence central line was placed by Dr. Jean-Baptiste. Patient was given IV fluids. Repeat chest x-ray showed improvement of his diffuse bibasilar opacities compared from previous chest x-ray. Dr. Chandler evaluated him in the ED who felt that he does not need ICU admission. He was given 4 L of IV fluids. He was eventually transitioned to tracheal collar and was maintaining his O2 saturation to 95%. Patient was then admitted for further management. WBC count 19.5 in the ED he was given 1 dose of aztreonam and vancomycin." Per Previous Physician: "05/14/2020 MUCOUS PLUGGING, ACUTE HYPOXIC RESPIRATORY FAILURE Patient was seen early on in rounds this morning. At the time patient was noted to sound congested. He however had been suctioned and apparently no further suctioning required at that time. I discussed with the patient the need to be able to give him medications either through an NG tube or PEG tube IV fluids or TPN or combination of all these however patient refused. Patient was new to me today and after discussing with the nurse I did find out that he had been refusing multiple modalities of treatment and management. About 30 minutes after saw this patient when he was still relatively stable a rapid response was called and apparently he went into respiratory distress. He was found to be hypoxic. By the time he got there he was cyanotic. His oxygen saturation was in the 60s also. He was 100% oxygen and his BiPAP setting was changed. Multiple attempts to oxygenate him failed. It was felt that patient will be better served in the intensive care unit. Fundraising Officer was informed and Came to assess patient. Patient was transferred to the unit. Please see Dr. Hernández's notes for further details chest x-ray obtained reveals diffuse opaci fication in the left chest possibly due to extensive infiltrate atelectasis collapse pleural effusion with improved aeration in the right lung base. This is consistent with his lung findings which shows grossly diminished air entry." 05/20/2020 Patient sent out of the ICU yesterday afternoon. Per my discussion with Dr. Chandler, patient has frequent mucous plugging and needs to be lavaged and suc tioned by respiratory therapy frequently. It is likely the patient will continue mucous plugging intermittently and may need to be sent back to the ICU at some point. He has been maintained on trach collar with intermittent ventilatory support. Patient was asking for increases in his narcotics and I discussed the risks of respiratory depression if we were to pursue this. We will keep his narcotics at the current dosing and frequency for now. 05/21/2020 Patient had a episode of mucous plugging which resolved with aggressive lavage and suctioning by RT. Patient also had a problem with his NG feeding tube where it was somewhat displaced and nursing replaced this infected follow-up chest x- ray To confirm location. Blood culture on 05/09 remains negative. Latest chest x-ray shows diffuse bilateral disease which could potentially be worse. Patient is calm and resting today and does not have any new complaints. 05/22/2020 Patient appears rather calm today until I entered the room. He then wrote on his marker board and mouthed words to me stating he wants IV narcotics and IV sedatives. I discussed with him that adding these medications could be detrimental to his respiratory status. We will keep his pain medication as it is for now. I believe he is gradually improving as respiratory therapy is doing a great job lavaging and suctioning out large mucous plugs daily. Perhaps if we do enough of this every day, patient will be able to wean from the ventilator and tolerate trach collar alone. Reason For Visit: MUCOUS PLUGGING, ACUTE HYPOXIC RESPIRATORY FAILURE Physical Exam Vital Signs: Temp Pulse Resp BP Pulse Ox 100.3 F 134 H 26 H 99/66 L 87 L 05/22/20 12:27 05/22/20 12:27 05/22/20 12:27 05/22/20 12:27 05/22/20 12:27 Intake & Output 05/21/20 05/22/20 05/23/20 06:59 06:59 06:59 Intake Total 4 1763 Output Total 450 1440 Balance 1574 323 Weight 64.8 kg 64.5 kg Exam: General appearance: PRESENT: no acute distress, frail and chronically ill- appearing, resting comfortably today, angrily requesting IV narcotics and sedatives today Head exam: PRESENT: atraumatic, normocephalic Eye exam: PRESENT: conjunctiva pink. ABSENT: scleral icterus Mouth exam: PRESENT: moist Respiratory exam: PRESENT: Very scant rhonchi bilateral, no wheezing; trach collar in place Cardiovascular exam: PRESENT: RRR. ABSENT: diastolic murmur, rubs, systolic murmur GI/Abdominal exam: PRESENT: normal bowel sounds, soft. NG tube in place ABSENT: distended, guarding, mass, organolmegaly, rebound, tenderness Neurological exam: PRESENT: alert, awake, oriented to person, oriented to place, oriented to time, oriented to situation Psychiatric exam: PRESENT: appropriate affect, normal mood Skin exam: PRESENT: dry, intact, warm Results Laboratory Results: 05/21/20 06:13 05/21/20 06:13 04/20/20 04/23/20 04/23/20 09:00 01:55 01:55 Creatine Kinase < 20 L CK-MB (CK-2) 2.20 Troponin I < 0.012 0.082 NT-Pro-B Natriuret Pep [id number] H 04/23/20 04/23/20 04/23/20 05:58 08:22 14:50 Creatine Kinase < 20 L < 20 L CK-MB (CK-2) 2.24 Troponin I 0.066 NT-Pro-B Natriuret Pep 04/23/20 14:50 Creatine Kinase CK-MB (CK-2) 2.09 Troponin I 0.057 NT-Pro-B Natriuret Pep Impressions: Modified Barium Swallow 04/26/20 00:01 IMPRESSION: LARYNGEAL PENETRATION WITH THIN BARIUM, WITH TRACE ASPIRATION FROM RESIDUALS. PLEASE SEE SPEECH PATHOLOGIST REPORT FOR OTHER FINDINGS AND RECOMMENDATIONS. PICC Line Insertion 05/07/20 00:00 IMPRESSION: SUCCESSFUL PLACEMENT OF A 5 FR DUAL LUMEN 47 CM PICC IN THE LEFT BRACHIOCEPHALIC VEIN. KUB X-Ray 05/16/20 11:57 IMPRESSION: NG tube as described. Findings as described. Chest X-Ray 05/21/20 00:00 IMPRESSION: DIFFUSE BILATERAL AIRSPACE DISEASE, WORSE ON THE LEFT. Assessment and Plan - Diagnosis (1) Acute on chronic respiratory failure with hypoxia and hypercapnia Is this a current diagnosis for this admission?: Yes (2) Bilateral pneumonia Qualifiers: Pneumonia type: due to unspecified organism Lung location: lower lobe of lung Qualified Code(s): J18.9 - Pneumonia, unspecified organism Is this a current diagnosis for this admission?: Yes (3) Acute kidney injury superimposed on chronic kidney disease Is this a current diagnosis for this admission?: Yes (4) Acute metabolic encephalopathy Is this a current diagnosis for this admission?: Yes (5) Acute respiratory failure due to severe acute respiratory syndrome coronavirus 2 (SARS-CoV-2) infection Is this a current diagnosis for this admission?: Yes (6) Acute respiratory failure with hypoxia and hypercapnia Is this a current diagnosis for this admission?: Yes (7) Bacteremia due to Enterococcus Is this a current diagnosis for this admission?: Yes (8) Chronically on opiate therapy Is this a current diagnosis for this admission?: Yes (9) COVID-19 Is this a current diagnosis for this admission?: Yes (10) Critical illness polyneuropathy Is this a current diagnosis for this admission?: Yes (11) Diabetes mellitus type 2 in nonobese Is this a current diagnosis for this admission?: Yes (12) Hyperglycemia due to type 2 diabetes mellitus Qualifiers: Diabetes mellitus computer terminal operator insulin use: with computer terminal operator use Qualified Code(s): E11.65 - Type 2 diabetes mellitus with hyperglycemia; Z79.4 - senior living (current) use of insulin Is this a current diagnosis for this admission?: Yes (13) Hyperlipidemia Qualifiers: Hyperlipidemia type: unspecified Qualified Code(s): E78.5 - Hyperlipidemia, unspecified Is this a current diagnosis for this admission?: Yes (14) Hypertension Is this a current diagnosis for this admission?: Yes (15) Malnutrition Qualifiers: Malnutrition type: protein-calorie malnutrition Protein-calorie malnutrition severity: severe Qualified Code(s): E43 - Unspecified severe protein-calorie malnutrition Is this a current diagnosis for this admission?: Yes (16) Medical non-compliance Is this a current diagnosis for this admission?: Yes (17) Sepsis associated hypotension Is this a current diagnosis for this admission?: Yes - Plan Summary Summary: Per Previous Physician: "Mr. Freddie Sena is a 60-year-old man with HTN, HLD, DM2, CHF and recent prolonged hospitalization for acute respiratory failure secondary to COVID-19 pneumonia s/p tracheostomy placement and discharge to a [facility] facility for continued rehabilitation. He returned to [facility] on 04/20/20 SOB, and was found to have hypoxemia, tachycardia, hypothermia and hypotension. A right femoral line was urgently placed for IV access. " Enterococcus Bacteremia (present on admission) CLABSI and MSSA Bacteremia (diagnosed 05/07/2020) -Per Previous Physician: "Blood cultures drawn on admission were obtained from the R hand and from the R femoral line; one bottle in each set (peripheral and central line) grew Enterococcus faecalis susceptible to penicillin and ampicillin. He was treated with IV vancomycin (in light of a reported penicillin allergy) for approximately 10 days (04/20-04/30). The patient refused repeat blood cultures until 05/07/20, at which time a PICC line was placed. Two sets of blood cultures were obtained - one set from the PICC line and one set from the R femoral line. After obtaining BCx, the R femoral line was removed on 05/07/2020. Both of these sets of BCx from 05/07 grew bacteria. One set grew GPCs in clusters. The other set grew VRE and presumptive MSSA. Therefore, on 05/08/2020, he was started on treatment with ampicillin and vancomycin (review of his chart raised doubt that he had a true IgE mediated penicillin allergy, as he had previously received several courses o f cephalosporins). The patient has since been refusing attempts at placing PIV access in order to be able to remove his PICC line and he also refused to allow repeat BCx on 05/08. He finally allowed repeat BCx to be drawn from the PICC on 05/09. ID was consulted on 05/09 for further recommendations, which include: * Enterococcus bacteremia * This potentially represents a recurrence of the previous Enterococcal faecalis bacteremia, but right now it is not possible to definitively say this. The identification and susceptibilities for the organism are pending. The presence of vancomycin resistance for the new isolate could be acquired in the course of the prior treatment. If this is indeed a recurrence, it raises the question of a persistent focus of infection and re-seeding or failure to clear the bloodstream. * obtain TTE * continue ceftriaxone and ampicillin (ampicillin + Rocephin is an effective alternative regimen to the traditional ampicillin + gentamicin) * Depending on whether or not recurrence of E faecalis bacteremia is unexplained and endocarditis is likely, Rocephin could be continued at the 2 g q12h dose or changed if this higher dose is not required. * The previous E faecalis isolate was susceptible to ampicillin. This remains the case for most vancomycin-resistant E faecalis. Follow culture results for identification of the Enterococcus species and susceptibility results. If the patient becomes hemodynamically unstable or toxic before identification/susceptibilities return, daptomycin can be used at approximately 8-10 mg/kg daily in place of the ampicillin. * MSSA bacteremia in the setting of a PICC line * Source unclear: infected line vs bacteremia secondary to pneumonia (aspiration vs tracheitis) * Isolation of organisms from tracheal aspirate (like any non-sterile site) has to be taken into context, and clinically - WBC count has been stable, no new fever - but he has required an increased amount of oxygen from 6L to 10 L in the past 2 days and has had increased RLL infiltrate on CXR. Leah in tracheal aspirate is usually a colonizer. Stenotrophomonas maltophilia can also be a colonizer and, in the setting of other obviously invasive pathogens, targeting therapy to include it is not necessarily warranted as long as the patient is improving with treatment aimed at the MSSA and other interventions to reduce aspiration risk and/or optimize vo lume status. * The PICC line should be removed. It is not recommended to attempt salvaging a line when there is Staph aureus bacteremia due to the risk for failure and relapse. * Would avoid placing a computer terminal operator line until blood cultures are known to be negative for at least 48 hours. * obtain TTE * continue Rocephin * Duration of therapy should be, at a minimum, 2 weeks from date of negative blood cultures and removal of PICC line, assuming that no endocarditis is present or metastatic foci of infection. If such is present, duration of treatment should be longer." -Sent back to ICU for respiratory distress and acute respiratory failure on 05/14 -Daptomycin started in ICU until 05/21 Per cashier office, patient needs to have frequent pulmonary lavage and suctioning to avoid future mucous plugging; respiratory therapy utilizing lavage and suction daily with good results Continues to have mucus plugging intermittently which is relieved by aggressive lavage and suctioning Acute on chronic respiratory failure with hypoxia and hypercapnia: -Per Previous Physician: "he had an increase in WBC on 05/04- and there was concern for possible aspiration event vs tracheitis vs HAP. CXR was repeated on 05/06 and showed increased opacification in the right lung base. He has remained afebrile, on 6- 10 L O2 over the duration of his hospitalization. He had a tracheal aspirate on 05/05/20 which showed growth of Leah albicans, Stenotrophomonas maltophilia, and MSSA. He is currently on antibiotics and WBC has normalized. He is a high aspiration risk but he is unwilling to stop eating by mouth and refuses a PEG tube." -Frequently requesting to go back on ventilator and reluctant to wean Severe Protein Calorie Malnutrition: -Per Previous Physician: "due to poor PO intake. Unfortunately patient has been having aspiration events and also refusing other modes of nutrition. On 04/26/2020 patient had a modified barium swallow and recommendation was for pured diet with aspiration precautions. PICC placed on 05/07 and TPN was briefly initiated until his BCx resulted, and TPN was thus discontinued (due to ongoing bacteremia)." NG tube with tube feeds running; patient pulled out NG tube partially on 05/21 and this was replaced Tracheostomy in place: -Per Previous Physician: "Continue tracheostomy care. Aggressive pulmonary toileting. Inner cannula is showing evidence of the increased secretions. Because of his insistence on eating PO, he has significantly delaying the possibility of decannulation." Hyperglycemia due to type 2 diabetes mellitus: -Per Previous Physician: "glucose control is reasonable. His intake does vary. He continues to refuse PEG tube placement. This would in fact significantly improve the trajectory of his recovery. This has been suggested multiple times and he adamantly refuses each time. Will need to adjust treatment as his diet changes." Candiduria: -Per Previous Physician: "Urine culture positive for Leah albicans. The patient does have an indwelling Varnre catheter which has been exchanged this admission." -colonized bladder Chronic Urinary Retention: -exchange Varner catheter every 4 weeks to prevent CAUTI. Anemia of Chronic Disease: -hemoglobin has been 7-8 since January 2020. Ferritin elevated (not iron deficiency). He has no evidence of active blood loss. Critical illness myopathy: -PT and OT due to the severe deconditioning from his prolonged illness and prolonged hospitalizations. Medical non-adherence: -Per Previous Physician: "he has been requesting food that is not on his recommended diet. He is, at times, a willing participant in the treatment plan but, at other times, lacks insight and has poor judgment. He remains a FULL CODE and does not wish to change his code status, despite ongoing dysphagia, oral intake and high risk for future aspiration episodes. We discussed at length today the risk of morbidity and mortality due to bacteremia, the importance of antibiotics, the importance of removing his PICC line and allowing us to place PIVs, etc. He is bargaining and stating that he will accept certain medications and medical interventions only if he can get IV opioids for treatment of his chronic MSK pain. We agreed that I would change his oral oxycodone dosage to an equivalent IV morphine dosage, but that he can no longer decline these medical interventions and he is agreeable at this time. Discussed with RN." Patient frequently demanding specifically IV formulation narcotics and sedatives - Time Time Spent with patient: 35 or more minutes Medications reviewed and adjusted accordingly: Yes Anticipated Discharge Disposition: Shelter Facility Anticipated Discharge Timeframe: within 72 hours - Inpatient Certification Based on my medical assessment, after consideration of the patient's comorbidities, presenting symptoms, or acuity I expect that the services needed warrant INPATIENT care.: Yes I certify that my determination is in accordance with my understanding of Medicare's requirements for reasonable and necessary INPATIENT services [42 CFR 412.3e].: Yes Medical Necessity: Significant Comorbidiites Make Outpatient Treatment Too Risky, Need Close Monitoring Due to Risk of Patient Decompensation, Need for IV Antibiotics, Risk of Complication if Not Cared For in Hospital, Risk of Diagnosis Which Will Require Inpatient Eval/Care/Monitoring
[2020-05-22] MEDS: BUSPIRONE HCL 10 MG TABLET PO SCH (18:14)
[2020-05-23] MEDS: IPRATROPIUM/ALBUTEROL 0.5-2.5 MG/3 ML AMPUL NEB PRN ×2 (00:42→21:42)
[2020-05-23] MEDS: INSULIN REG, HUMAN 100 UNIT/ML 3 ML VIAL (PYX) SUBCUT SCH ×5 (01:05→23:23)
[2020-05-23] MEDS: MORPHINE SULFATE 10 MG/ML INJ IV PRN ×2 (01:57→12:46)
[2020-05-23] MEDS: PROMETHAZINE HCL INJ 25 MG/1 ML VIAL IV PRN (01:57)
[2020-05-23] MEDS: NORMAL SALINE 1000 ML 1,000 ML IV PRN ×2 (01:58→20:19)
[2020-05-23] MEDS: NITROGLYCERIN 2% OINTMENT 1 GM PACKET TP SCH (01:59)
[2020-05-23] MEDS: POTASSIUM CHLORIDE 20 MEQ PACKET NG SCH (01:59)
[2020-05-23] MEDS: METOPROLOL TARTRATE PF/INJ 5 MG/5 ML SDV IV PRN (02:10)
[2020-05-23] MEDS: DIPHENHYDRAMINE HCL 50 MG/ML VIAL IV PRN ×3 (03:10→20:18)
[2020-05-23] MEDS: LORAZEPAM 1 MG TABLET NG PRN ×3 (04:39→21:03)
[2020-05-23] MEDS: METOCLOPRAMIDE HCL INJ/PF 10 MG/2 ML SDV IV SCH ×3 (05:14→21:34)
[2020-05-23] MEDS: OXYCODONE HCL IR 5 MG TABLET NG SCH ×4 (05:14→21:34)
[2020-05-23 07:04] LABS: HEMATOCRIT 19.8 % (37.9-51.0); MEAN CORPUSCULAR HEMOGLOBIN 27.5 pg (27.0-33.4); MEAN CORPUSCULAR HGB CONC 32.1 g/dL (32.0-36.0); MEAN CORPUSCULAR VOLUME 86 fl (80-97); PLATELET COUNT 109 10^3/uL (150-450); RED BLOOD COUNT 2.32 10^6/uL (4.35-5.55); RED CELL DISTRIBUTION WIDTH 17.4 % (11.5-14.0); WHITE BLOOD COUNT 20.5 10^3/uL (4.0-10.5)
[2020-05-23 07:12] LABS: BLOOD UREA NITROGEN 11 mg/dL (7-20); CARBON DIOXIDE 26 mmol/L (22-30); GLUCOSE 110 mg/dL (75-110); POTASSIUM 5.7 mmol/L (3.6-5.0)
[2020-05-23 07:18] LABS: CHLORIDE 111 mmol/L (98-107)
[2020-05-23 07:26] LABS: ANION GAP 4 (5-19)
[2020-05-23 07:36] LABS: ABSOLUTE LYMPHOCYTES# (MANUAL) 0.6 10^3/uL (0.5-4.7); BASOPHILS % (MANUAL) 0 % (0-2); EOSINOPHILS % (MANUAL) 0 % (0-6); LYMPHOCYTES % (MANUAL) 3 % (13-45); MONOCYTES % (MANUAL) 5 % (3-13); SEGMENTED NEUTROPHILS % (MAN) 92 % (42-78); TOTAL CELLS COUNTED 100
[2020-05-23 07:38] LABS: ANISOCYTOSIS 1+; OVALOCYTES 1+; POIKILOCYTOSIS 1+; TEAR DROP CELLS 1+
[2020-05-23 07:39] LABS: PLATELET COMMENT DECREASED
[2020-05-23 07:42] LABS: HEMOGLOBIN 6.4 g/dL (13.5-17.0)
[2020-05-23] MEDS ORDERED: CALCIUM GLUCONATE 1000 MG/10 ML INJ IV ONE (08:33)
[2020-05-23] MEDS: PANTOPRAZOLE SODIUM 40 MG VIAL IV SCH (09:13)
[2020-05-23] MEDS: LISINOPRIL 5 MG TABLET NG SCH ×2 (09:14→21:34)
[2020-05-23] MEDS: CALCIUM CARBONATE 500 MG TAB.CHEW NG SCH ×2 (09:14→17:44)
[2020-05-23] MEDS: BUSPIRONE HCL 10 MG TABLET PO SCH (09:14)
[2020-05-23] MEDS ORDERED: CALCIUM GLUCONATE 1 GM/NS 50 ML RTU IV ONE (09:15)
[2020-05-23] MEDS: NYSTATIN TOPICAL POWDER 15 GM TP SCH ×2 (09:16→17:44)
[2020-05-23 09:21] LABS: HEMATOCRIT 21.5 % (37.9-51.0); MEAN CORPUSCULAR HEMOGLOBIN 27.7 pg (27.0-33.4); MEAN CORPUSCULAR HGB CONC 32.3 g/dL (32.0-36.0); MEAN CORPUSCULAR VOLUME 86 fl (80-97); PLATELET COUNT 126 10^3/uL (150-450); RED BLOOD COUNT 2.51 10^6/uL (4.35-5.55); RED CELL DISTRIBUTION WIDTH 17.7 % (11.5-14.0)
[2020-05-23] MEDS: PHOSPHORUS #1 250 MG TABLET PO SCH (09:33)
[2020-05-23 11:01] LABS: ABSOLUTE LYMPHOCYTES# (MANUAL) 1.4 10^3/uL (0.5-4.7); ABSOLUTE MONOCYTES # (MANUAL) 0.5 10^3/uL (0.1-1.4); BASOPHILS % (MANUAL) 0 % (0-2); EOSINOPHILS % (MANUAL) 0 % (0-6); LYMPHOCYTES % (MANUAL) 6 % (13-45); MONOCYTES % (MANUAL) 2 % (3-13); PLATELET CLUMPS PRESENT; PLATELET COMMENT DECREASED; SEGMENTED NEUTROPHILS % (MAN) 92 % (42-78); TOTAL CELLS COUNTED 100
[2020-05-23 11:02] LABS: ANISOCYTOSIS 1+; OVALOCYTES 1+; POIKILOCYTOSIS 1+; TEAR DROP CELLS 1+
[2020-05-23 11:03] LABS: HEMOGLOBIN 6.9 g/dL (13.5-17.0)
[2020-05-23] MEDS: PHOSPHORUS #1 250 MG TABLET NG SCH ×3 (11:40→21:34)
[2020-05-23] MEDS ORDERED: NORMAL SALINE 250 ML IV PRN ×2 (15:58)
--- NOTE | 2020-05-23 16:08 | PDOC PROGRESS REPORT ---
Subjective Subjective:: Per admitting physician: "FREDDIE SENA JR is a 60 year old male, past medical history of type 2 diabetes hypertension CHF narcotic dependence CKD who was recently discharged from [facility] April 19, 2020 after being admitted for 89 days secondary to acute respiratory failure from COVID pneumonia. He was discharged with a tracheostomy tube uncuffed. Before discharge he has been able to speak and eat and the plan was to eventually remove the tracheostomy at [facility]. Sent back to the emergency room for evaluation of shortness of breath. EMS was called by the facility because the patient was diaphoretic with a blood glucose of 30 staff administered 1 mg glucagon in a tube and a half of oral glucose prior to EMS arrival and recheck of blood glucose was 40. Upon EMS arrival patient was pale with diminished breath sounds so he was placed on 15 L O2 via nonrebreather O2 sats went up to 86% and blood glucose was 147 upon ED arrival. In the emergency room he apparently continued to be hypoxic hence a trach cuff was placed and he was put back on mechanical ventilation briefly. He was also noted to be hypotensive hence central line was placed by Dr. Jean-Baptiste. Patient was given IV fluids. Repeat chest x-ray showed improvement of his diffuse bibasilar opacities compared from previous chest x-ray. Dr. Chandler evaluated him in the ED who felt that he does not need ICU admission. He was given 4 L of IV fluids. He was eventually transitioned to tracheal collar and was maintaining his O2 saturation to 95%. Patient was then admitted for further management. WBC count 19.5 in the ED he was given 1 dose of aztreonam and vancomycin." Per Previous Physician: "05/14/2020 MUCOUS PLUGGING, ACUTE HYPOXIC RESPIRATORY FAILURE Patient was seen early on in rounds this morning. At the time patient was noted to sound congested. He however had been suctioned and apparently no further suctioning required at that time. I discussed with the patient the need to be able to give him medications either through an NG tube or PEG tube IV fluids or TPN or combination of all these however patient refused. Patient was new to me today and after discussing with the nurse I did find out that he had been refusing multiple modalities of treatment and management. About 30 minutes after saw this patient when he was still relatively stable a rapid response was called and apparently he went into respiratory distress. He was found to be hypoxic. By the time he got there he was cyanotic. His oxygen saturation was in the 60s also. He was 100% oxygen and his BiPAP setting was changed. Multiple attempts to oxygenate him failed. It was felt that patient will be better served in the intensive care unit. Teletype Adjuster was informed and Came to assess patient. Patient was transferred to the unit. Please see Dr. Hernández's notes for further details chest x-ray obtained reveals diffuse opaci fication in the left chest possibly due to extensive infiltrate atelectasis collapse pleural effusion with improved aeration in the right lung base. This is consistent with his lung findings which shows grossly diminished air entry." 05/20/2020 Patient sent out of the ICU yesterday afternoon. Per my discussion with Dr. Chandler, patient has frequent mucous plugging and needs to be lavaged and suc tioned by respiratory therapy frequently. It is likely the patient will continue mucous plugging intermittently and may need to be sent back to the ICU at some point. He has been maintained on trach collar with intermittent ventilatory support. Patient was asking for increases in his narcotics and I discussed the risks of respiratory depression if we were to pursue this. We will keep his narcotics at the current dosing and frequency for now. 05/21/2020 Patient had a episode of mucous plugging which resolved with aggressive lavage and suctioning by RT. Patient also had a problem with his NG feeding tube where it was somewhat displaced and nursing replaced this infected follow-up chest x- ray To confirm location. Blood culture on 05/09 remains negative. Latest chest x-ray shows diffuse bilateral disease which could potentially be worse. Patient is calm and resting today and does not have any new complaints. 05/22/2020 Patient appears rather calm today until I entered the room. He then wrote on his marker board and mouthed words to me stating he wants IV narcotics and IV sedatives. I discussed with him that adding these medications could be detrimental to his respiratory status. We will keep his pain medication as it is for now. I believe he is gradually improving as respiratory therapy is doing a great job lavaging and suctioning out large mucous plugs daily. Perhaps if we do enough of this every day, patient will be able to wean from the ventilator and tolerate trach collar alone. 05/23/2020 I had an extensive discussion with the patient today regarding PEG tube placement and he repeatedly stated he wanted to speak to the doctor and I repeatedly told him I am the doctor. I asked him if he would like me to get the surgeon involved to place a PEG tube. He refused to answer me at this point and did not seem interested in any my recommendations. We will ask respiratory therapy if he can get CPT to break up mucous plugs, continue lavaging and suctioning, and continue attempting to wean from the vent. Hemoglobin showed an acute drop down to 6.4 and this was rechecked to reveal 6.9. We will transfuse 1 unit PRBC which may help with his oxygenation as well. Will need to be mindful of the extra volume this will provide and watch for volume overload. Blood cell count is higher while hemoglobin and platelets are lower. Calcium is significantly lower we will replete this both IV and oral. Reason For Visit: MUCOUS PLUGGING, ACUTE HYPOXIC RESPIRATORY FAILURE Physical Exam Vital Signs: Temp Pulse Resp BP Pulse Ox 97.8 F 114 H 18 121/77 91 L 05/23/20 12:54 05/23/20 14:00 05/23/20 12:54 05/23/20 12:54 05/23/20 12:54 Intake & Output 05/22/20 05/23/20 05/24/20 06:59 06:59 06:59 Intake Total 1763 1787 Output Total 1440 350 Balance 323 1437 Weight 64.5 kg 70 kg Exam: General appearance: PRESENT: no acute distress, frail and chronically ill- appearing, resting comfortably today, repeatedly states he wants to speak to the doctor and does not seem to understand when I tell him I am his doctor Head exam: PRESENT: atraumatic, normocephalic Eye exam: PRESENT: conjunctiva pink. ABSENT: scleral icterus Mouth exam: PRESENT: moist Respiratory exam: PRESENT: Very scant rhonchi bilateral, no wheezing; trach collar in place Cardiovascular exam: PRESENT: RRR. ABSENT: diastolic murmur, rubs, systolic murmur GI/Abdominal exam: PRESENT: normal bowel sounds, soft. NG tube in place ABSENT: distended, guarding, mass, organolmegaly, rebound, tenderness Neurological exam: PRESENT: alert, awake, oriented to person, oriented to place Psychiatric exam: PRESENT: appropriate affect, normal mood Skin exam: PRESENT: dry, intact, warm Results Laboratory Results: 05/23/20 09:00 05/23/20 06:30 05/23/20 05/23/20 05/23/20 06:00 06:30 09:00 WBC 20.5 H 23.0 H RBC 2.32 L 2.51 L Hgb 6.4 L 6.9 L Hct 19.8 L 21.5 L MCV 86 86 MCH 27.5 27.7 MCHC 32.1 32.3 RDW 17.4 H 17.7 H Plt Count 109 L 126 L Seg Neutrophils % Not Reportable Not Reportable Sodium 140.6 Potassium 5.7 H Chloride 111 H Carbon Dioxide 26 Anion Gap 4 L BUN 11 Creatinine 0.67 Est GFR ( Amer) > 60 Glucose 110 Calcium 7.0 L* 04/20/20 04/23/20 04/23/20 09:00 01:55 01:55 Creatine Kinase < 20 L CK-MB (CK-2) 2.20 Troponin I < 0.012 0.082 NT-Pro-B Natriuret Pep 06148 H 04/23/20 04/23/20 04/23/20 05:58 08:22 14:50 Creatine Kinase < 20 L < 20 L CK-MB (CK-2) 2.24 Troponin I 0.066 NT-Pro-B Natriuret Pep 04/23/20 14:50 Creatine Kinase CK-MB (CK-2) 2.09 Troponin I 0.057 NT-Pro-B Natriuret Pep Impressions: Modified Barium Swallow 04/26/20 00:01 IMPRESSION: LARYNGEAL PENETRATION WITH THIN BARIUM, WITH TRACE ASPIRATION FROM RESIDUALS. PLEASE SEE SPEECH PATHOLOGIST REPORT FOR OTHER FINDINGS AND RECOMMENDATIONS. PICC Line Insertion 05/07/20 00:00 IMPRESSION: SUCCESSFUL PLACEMENT OF A 5 FR DUAL LUMEN 47 CM PICC IN THE LEFT BRACHIOCEPHALIC VEIN. KUB X-Ray 05/16/20 11:57 IMPRESSION: NG tube as described. Findings as described. Chest X-Ray 05/21/20 00:00 IMPRESSION: DIFFUSE BILATERAL AIRSPACE DISEASE, WORSE ON THE LEFT. Assessment and Plan - Diagnosis (1) Acute on chronic respiratory failure with hypoxia and hypercapnia Is this a current diagnosis for this admission?: Yes (2) Bilateral pneumonia Qualifiers: Pneumonia type: due to unspecified organism Lung location: lower lobe of lung Qualified Code(s): J18.9 - Pneumonia, unspecified organism Is this a current diagnosis for this admission?: Yes (3) Acute kidney injury superimposed on chronic kidney disease Is this a current diagnosis for this admission?: Yes (4) Acute metabolic encephalopathy Is this a current diagnosis for this admission?: Yes (5) Acute respiratory failure due to severe acute respiratory syndrome coronavirus 2 (SARS-CoV-2) infection Is this a current diagnosis for this admission?: Yes (6) Acute respiratory failure with hypoxia and hypercapnia Is this a current diagnosis for this admission?: Yes (7) Bacteremia due to Enterococcus Is this a current diagnosis for this admission?: Yes (8) Chronically on opiate therapy Is this a current diagnosis for this admission?: Yes (9) COVID-19 Is this a current diagnosis for this admission?: Yes (10) Critical illness polyneuropathy Is this a current diagnosis for this admission?: Yes (11) Diabetes mellitus type 2 in nonobese Is this a current diagnosis for this admission?: Yes (12) Hyperglycemia due to type 2 diabetes mellitus Qualifiers: Diabetes mellitus halfway insulin use: with long wall shear operator use Qualified Code(s): E11.65 - Type 2 diabetes mellitus with hyperglycemia; Z79.4 - tank terminal gauger (current) use of insulin Is this a current diagnosis for this admission?: Yes (13) Hyperlipidemia Qualifiers: Hyperlipidemia type: unspecified Qualified Code(s): E78.5 - Hyperlipidemia, unspecified Is this a current diagnosis for this admission?: Yes (14) Hypertension Is this a current diagnosis for this admission?: Yes (15) Malnutrition Qualifiers: Malnutrition type: protein-calorie malnutrition Protein-calorie malnutrition severity: severe Qualified Code(s): E43 - Unspecified severe protein-calorie malnutrition Is this a current diagnosis for this admission?: Yes (16) Medical non-compliance Is this a current diagnosis for this admission?: Yes (17) Sepsis associated hypotension Is this a current diagnosis for this admission?: Yes - Plan Summary Summary: Per Previous Physician: "Mr. Freddie Sena is a 60-year-old man with HTN, HLD, DM2, CHF and recent prolonged hospitalization for acute respiratory failure secondary to COVID-19 pneumonia s/p tracheostomy placement and discharge to a nursing home facility for continued rehabilitation. He returned to [facility] on 04/20/20 SOB, and was found to have hypoxemia, tachycardia, hypothermia and hypotension. A right femoral line was urgently placed for IV access. " Enterococcus Bacteremia (present on admission) CLABSI and MSSA Bacteremia (diagnosed 05/07/2020) -Per Previous Physician: "Blood cultures drawn on admission were obtained from the R hand and from the R femoral line; one bottle in each set (peripheral and central line) grew Enterococcus faecalis susceptible to penicillin and ampicillin. He was treated with IV vancomycin (in light of a reported penicillin allergy) for approximately 10 days (04/20-04/30). The patient refused repeat blood cultures until 05/07/20, at which time a PICC line was placed. Two sets of blood cultures were obtained - one set from the PICC line and one set from the R femoral line. After obtaining BCx, the R femoral line was removed on 05/07/2020. Both of these sets of BCx from 05/07 grew bacteria. One set grew GPCs in clusters. The other set grew VRE and presumptive MSSA. Therefore, on 05/08/2020, he was started on treatment with ampicillin and vancomycin (review of his chart raised doubt that he had a true IgE mediated penicillin allergy, as he had previously received several courses of cephalosporins). The patient has since been refusing attempts at placing PIV access in order to be able to remove his PICC line and he also refused to allow repeat BCx on 05/08. He finally allowed repeat BCx to be drawn from the PICC on 05/09. ID was consulted on 05/09 for further recommendations, which include: * Enterococcus bacteremia * This potentially represents a recurrence of the previous Enterococcal faecalis bacteremia, but right now it is not possible to definitively say this. The identification and susceptibilities for the organism are pending. The presence of vancomycin resistance for the new isolate could be acquired in the course of the prior treatment. If this is indeed a recurrence, it raises the question of a persistent focus of infection and re-seeding or failure to clear the bloodstream. * obtain TTE * continue ceftriaxone and ampicillin (ampicillin + Rocephin is an effective alternative regimen to the traditional ampicillin + gentamicin) * Depending on whether or not recurrence of E faecalis bacteremia is unexplained and endocarditis is likely, Rocephin could be continued at the 2 g q12h dose or changed if this higher dose is not required. * The previous E faecalis isolate was susceptible to ampicillin. This remains the case for most vancomycin-resistant E faecalis. Follow culture results for identification of the Enterococcus species and susceptibility results. If the patient becomes hemodynamically unstable or toxic before identification/susceptibilities return, daptomycin can be used at approximately 8-10 mg/kg daily in place of the ampicillin. * MSSA bacteremia in the setting of a PICC line * Source unclear: infected line vs bacteremia secondary to pneumonia (aspiration vs tracheitis) * Isolation of organisms from tracheal aspirate (like any non-sterile site) has to be taken into context, and clinically - WBC count has been stable, no new fever - but he has required an increased amount of oxygen from 6L to 10 L in the past 2 days and has had increased RLL infiltrate on CXR. Leah in tracheal aspirate is usually a colonizer. Stenotrophomonas maltophilia can also be a colonizer and, in the setting of other obviously invasive pathogens, targeting therapy to include it is not necessarily warranted as long as the patient is improving with treatment aimed at the MSSA and other interventions to reduce aspiration risk and/or optimize volume status. * The PICC line should be removed. It is not recommended to attempt salvaging a line when there is Staph aureus bacteremia due to the risk for failure and relapse. * Would avoid placing a long wall shear operator line until blood cultures are known to be negative for at least 48 hours. * obtain TTE * continue Rocephin * Duration of therapy should be, at a minimum, 2 weeks from date of negative blood cultures and removal of PICC line, assuming that no endocarditis is present or metastatic foci of infection. If such is present, duration of treatment should be longer." -Sent back to ICU for respiratory distress and acute respiratory failure on 05/14 -Daptomycin started in ICU until 05/21 Per automation application engineer, patient needs to have frequent pulmonary lavage and suctioning to avoid future mucous plugging; respiratory therapy utilizing lavage and suction daily with good results Continues to have mucus plugging intermittently which is relieved by aggressive lavage and suctioning Acute on chronic respiratory failure with hypoxia and hypercapnia: -Per Previous Physician: "he had an increase in WBC on 05/04- and there was concern for possible aspiration event vs tracheitis vs HAP. CXR was repeated on 05/06 and showed increased opacification in the right lung base. He has remained afebrile, on 6- 10 L O2 over the duration of his hospitalization. He had a tracheal aspirate on 05/05/20 which showed growth of Leah albicans, Stenotrophomonas maltophilia, and MSSA. He is currently on antibiotics and WBC has normalized. He is a high aspiration risk but he is unwilling to stop eating by mouth and refuses a PEG tube." -Frequently requesting to go back on ventilator and reluctant to wean Severe Protein Calorie Malnutrition: -Per Previous Physician: "due to poor PO intake. Unfortunately patient has been having aspiration events and also refusing other modes of nutrition. On 04/26/2020 patient had a modified barium swallow and recommendation was for pured diet with aspiration precautions. PICC placed on 05/07 and TPN was briefly initiated until his BCx resulted, and TPN was thus discontinued (due to ongoing bacteremia)." NG tube with tube feeds running; patient pulled out NG tube partially on 05/21 and this was replaced Tracheostomy in place: -Per Previous Physician: "Continue tracheostomy care. Aggressive pulmonary toileting. Inner cannula is showing evidence of the increased secretions. Because of his insistence on eating PO, he has significantly delaying the possibility of decannulation." Hyperglycemia due to type 2 diabetes mellitus: -Per Previous Physician: "glucose control is reasonable. His intake does vary. He continues to refuse PEG tube placement. This would in fact significantly improve the trajectory of his recovery. This has been suggested multiple times and he adamantly refuses each time. Will need to adjust treatment as his diet changes." Candiduria: -Per Previous Physician: "Urine culture positive for Leah albicans. The patient does have an indwelling Varner catheter which has been exchanged this admission." -colonized bladder Chronic Urinary Retention: -exchange Varner catheter every 4 weeks to prevent CAUTI. Anemia of Chronic Disease: -hemoglobin has been 7-8 since January 2020. Ferritin elevated (not iron deficiency). He has no evidence of active blood loss. Transfused 1 unit PRBC on 05/23 for drop in hemoglobin down to 6.9 Critical illness myopathy: -PT and OT due to the severe deconditioning from his prolonged illness and prolonged hospitalizations. Medical non-adherence: -Per Previous Physician: "he has been requesting food that is not on his recommended diet. He is, at times, a willing participant in the treatment plan but, at other times, lacks insight and has poor judgment. He remains a FULL CODE and does not wish to change his code status, despite ongoing dysphagia, oral intake and high risk for future aspiration episodes. We discussed at length today the risk of morbidity and mortality due to bacteremia, the importance of antibiotics, the importance of removing his PICC line and allowing us to place PIVs, etc. He is bargaining and stating that he will accept certain medications and medical interventions only if he can get IV opioids for treatment of his chronic MSK pain. We agreed that I would change his oral oxycodone dosage to an equivalent IV morphine dosage, but that he can no longer decline these medical interventions and he is agreeable at this time. Discussed with RN." Patient frequently demanding specifically IV formulation narcotics and sedatives Complicated disposition: Patient reportedly unable to go to SNF while utilizing the vent, only option is to wean and eventually stop the ventilator support for him to go back to SNF Patient reportedly unable to go to [facility] due to having NG tube instead of PEG tube. They are able to help patient wean from the ventilator there and he can get appropriate rehab as well. Patient has previously refused PEG tube and he continues to refuse it now - Time Time Spent with patient: 35 or more minutes Medications reviewed and adjusted accordingly: Yes Anticipated Discharge Disposition: Intermediate Care Facility Anticipated Discharge Timeframe: within 72 hours - Inpatient Certification Based on my medical assessment, after consideration of the patient's comorbi dities, presenting symptoms, or acuity I expect that the services needed warrant INPATIENT care.: Yes I certify that my determination is in accordance with my understanding of Medicare's requirements for reasonable and necessary INPATIENT services [42 CFR 412.3e].: Yes Medical Necessity: Significant Comorbidiites Make Outpatient Treatment Too Risky, Need Close Monitoring Due to Risk of Patient Decompensation, Need for Nebulizer Therapy and Monitoring of Response, Risk of Complication if Not Cared For in Hospital, Risk of Diagnosis Which Will Require Inpatient Eval/Care/Monitoring
[2020-05-23] MEDS ORDERED: OXYCODONE-ACETAMINOPHEN 5-325 MG TABLET PO PRN (17:19)
[2020-05-23] MEDS: OXYCODONE-ACETAMINOPHEN 5-325 MG TABLET NG PRN (17:44)
[2020-05-24] MEDS: OXYCODONE HCL IR 5 MG TABLET NG SCH ×4 (04:32→22:20)
[2020-05-24] MEDS: INSULIN REG, HUMAN 100 UNIT/ML 3 ML VIAL (PYX) SUBCUT SCH ×3 (05:01→17:41)
[2020-05-24] MEDS: METOCLOPRAMIDE HCL INJ/PF 10 MG/2 ML SDV IV SCH ×3 (05:01→22:19)
[2020-05-24 06:05] LABS: ABSOLUTE BASOPHILS # (AUTO) 0.1 10^3/uL (0.0-0.2); ABSOLUTE EOSINOPHILS # (AUTO) 0.3 10^3/uL (0.0-0.6); ABSOLUTE LYMPHOCYTES (AUTO) 1.3 10^3/uL (0.5-4.7); ABSOLUTE MONOCYTES (AUTO) 1.6 10^3/uL (0.1-1.4); BASOPHILS % (AUTO) 0.5 % (0-2); EOSINOPHILS % (AUTO) 1.9 % (0-6); HEMATOCRIT 24.6 % (37.9-51.0); HEMOGLOBIN 8.3 g/dL (13.5-17.0); MEAN CORPUSCULAR HGB CONC 33.6 g/dL (32.0-36.0); MEAN CORPUSCULAR VOLUME 83 fl (80-97); MONOCYTES % (AUTO) 8.8 % (3-13); PLATELET COUNT 116 10^3/uL (150-450); RED BLOOD COUNT 2.96 10^6/uL (4.35-5.55); RED CELL DISTRIBUTION WIDTH 18.3 % (11.5-14.0); SEGMENTED NEUTROPHILS % (AUTO) 81.8 % (42-78); TOTAL CELLS COUNTED % (AUTO) 100 %; WHITE BLOOD COUNT 18.4 10^3/uL (4.0-10.5)
[2020-05-24 06:19] LABS: ANION GAP 7 (5-19); BLOOD UREA NITROGEN 14 mg/dL (7-20); CALCIUM 7.9 mg/dL (8.4-10.2); CARBON DIOXIDE 30 mmol/L (22-30); CHLORIDE 104 mmol/L (98-107); GLUCOSE 123 mg/dL (75-110); POTASSIUM 5.1 mmol/L (3.6-5.0)
--- NOTE | 2020-05-24 09:16 | RADIOLOGY REPORT (SQ) ---
EXAM DESCRIPTION: CHEST SINGLE VIEW IMAGES COMPLETED DATE/TIME: 05/24/2020 9:06 am REASON FOR STUDY: coarse lung sounds J96.21 ACUTE AND CHRONIC RESPIRATORY FAILURE WITH HYPOXIA COMPARISON: 05/21/2020 NUMBER OF VIEWS: One view. TECHNIQUE: Single frontal radiographic image of the chest acquired. LIMITATIONS: None. FINDINGS: LUNGS AND PLEURA: Persistent diffuse bowel airspace disease slightly improved from prior s tudy. Persistent small effusions. MEDIASTINUM AND HILAR STRUCTURES: Stable heart size and mediastinal structures. HEART AND VASCULAR STRUCTURES: Stable appearance. SUPPORT DEVICES: Appropriate location without change. BONES: No acute findings. OTHER: No other significant finding. IMPRESSION: Persistent diffuse bilateral airspace disease slightly improved from prior study. Suppo rt lines and tubes remain in satisfactory position. TECHNICAL DOCUMENTATION: JOB ID: [id number] 2010 @[employer]- All Rights Reserved Reading location - IP/workstation name: [email or web address]
[2020-05-24] MEDS: BUSPIRONE HCL 10 MG TABLET PO SCH (09:24)
[2020-05-24] MEDS: LISINOPRIL 5 MG TABLET NG SCH ×2 (09:24→22:19)
[2020-05-24] MEDS: PHOSPHORUS #1 250 MG TABLET NG SCH ×4 (09:24→22:19)
[2020-05-24] MEDS: CALCIUM CARBONATE 500 MG TAB.CHEW NG SCH ×2 (09:25→17:31)
[2020-05-24] MEDS: PANTOPRAZOLE SODIUM 40 MG VIAL IV SCH (09:25)
[2020-05-24] MEDS: NYSTATIN TOPICAL POWDER 15 GM TP SCH ×2 (09:25→17:24)
[2020-05-24] MEDS: OXYCODONE-ACETAMINOPHEN 5-325 MG TABLET NG PRN ×2 (12:24→17:42)
[2020-05-24] MEDS: DIPHENHYDRAMINE HCL 50 MG CAPSULE NG PRN (12:24)
--- NOTE | 2020-05-24 15:45 | PDOC PROGRESS REPORT ---
Subjective Subjective:: Per admitting physician: "FREDDIE SENA JR is a 60 year old male, past medical history of type 2 diabetes hypertension CHF narcotic dependence CKD who was recently discharged from [facility] April 19, 2020 after being admitted for 89 days secondary to acute respiratory failure from COVID pneumonia. He was discharged with a tracheostomy tube uncuffed. Before discharge he has been able to speak and eat and the plan was to eventually remove the tracheostomy at [facility]. Sent back to the emergency room for evaluation of shortness of breath. EMS was called by the facility because the patient was diaphoretic with a blood glucose of 30 staff administered 1 mg glucagon in a tube and a half of oral glucose prior to EMS arrival and recheck of blood glucose was 40. Upon EMS arrival patient was pale with diminished breath sounds so he was placed on 15 L O2 via nonrebreather O2 sats went up to 86% and blood glucose was 147 upon ED arrival. In the emergency room he apparently continued to be hypoxic hence a trach cuff was placed and he was put back on mechanical ventilation briefly. He was also noted to be hypotensive hence central line was placed by Dr. Jean-Baptiste. Patient was given IV fluids. Repeat chest x-ray showed improvement of his diffuse bibasilar opacities compared from previous chest x-ray. Dr. Chandler evaluated him in the ED who felt that he does not need ICU admission. He was given 4 L of IV fluids. He was eventually transitioned to tracheal collar and was maintaining his O2 saturation to 95%. Patient was then admitted for further management. WBC count 19.5 in the ED he was given 1 dose of aztreonam and vancomycin." Per Previous Physician: "05/14/2020 MUCOUS PLUGGING, ACUTE HYPOXIC RESPIRATORY FAILURE Patient was seen early on in rounds this morning. At the time patient was noted to sound congested. He however had been suctioned and apparently no further suctioning required at that time. I discussed with the patient the need to be able to give him medications either through an NG tube or PEG tube IV fluids or TPN or combination of all these however patient refused. Patient was new to me today and after discussing with the nurse I did find out that he had been refusing multiple modalities of treatment and management. About 30 minutes after saw this patient when he was still relatively stable a rapid response was called and apparently he went into respiratory distress. He was found to be hypoxic. By the time he got there he was cyanotic. His oxygen saturation was in the 60s also. He was 100% oxygen and his BiPAP setting was changed. Multiple attempts to oxygenate him failed. It was felt that patient will be better served in the intensive care unit. End Packer was informed and Came to assess patient. Patient was transferred to the unit. Please see Dr. Hernández's notes for further details chest x-ray obtained reveals diffuse opaci fication in the left chest possibly due to extensive infiltrate atelectasis collapse pleural effusion with improved aeration in the right lung base. This is consistent with his lung findings which shows grossly diminished air entry." 05/20/2020 Patient sent out of the ICU yesterday afternoon. Per my discussion with Dr. Chandler, patient has frequent mucous plugging and needs to be lavaged and suc tioned by respiratory therapy frequently. It is likely the patient will continue mucous plugging intermittently and may need to be sent back to the ICU at some point. He has been maintained on trach collar with intermittent ventilatory support. Patient was asking for increases in his narcotics and I discussed the risks of respiratory depression if we were to pursue this. We will keep his narcotics at the current dosing and frequency for now. 05/21/2020 Patient had a episode of mucous plugging which resolved with aggressive lavage and suctioning by RT. Patient also had a problem with his NG feeding tube where it was somewhat displaced and nursing replaced this infected follow-up chest x- ray To confirm location. Blood culture on 05/09 remains negative. Latest chest x-ray shows diffuse bilateral disease which could potentially be worse. Patient is calm and resting today and does not have any new complaints. 05/22/2020 Patient appears rather calm today until I entered the room. He then wrote on his marker board and mouthed words to me stating he wants IV narcotics and IV sedatives. I discussed with him that adding these medications could be detrimental to his respiratory status. We will keep his pain medication as it is for now. I believe he is gradually improving as respiratory therapy is doing a great job lavaging and suctioning out large mucous plugs daily. Perhaps if we do enough of this every day, patient will be able to wean from the ventilator and tolerate trach collar alone. 05/23/2020 I had an extensive discussion with the patient today regarding PEG tube placement and he repeatedly stated he wanted to speak to the doctor and I repeatedly told him I am the doctor. I asked him if he would like me to get the surgeon involved to place a PEG tube. He refused to answer me at this point and did not seem interested in any my recommendations. We will ask respiratory therapy if he can get CPT to break up mucous plugs, continue lavaging and suctioning, and continue attempting to wean from the vent. Hemoglobin showed an acute drop down to 6.4 and this was rechecked to reveal 6.9. We will transfuse 1 unit PRBC which may help with his oxygenation as well. Will need to be mindful of the extra volume this will provide and watch for volume overload. Blood cell count is higher while hemoglobin and platelets are lower. Calcium is significantly lower we will replete this both IV and oral. 05/24/2020 Patient is resting comfortably today. He is off IV antibiotics and I have discontinued his IV Benadryl in place of Benadryl capsules that can go through his NG tube. We are still waiting on the patient to decide if he wants a PEG tube to be placed. It is my understanding that he cannot go to an acute care facility for rehab until he has a definitive feeding tube placed and he cannot go to a regular SNF while he is requiring the vent. If the patient wants a PEG tube or if we can wean him from the vent, disposition can move forward. Respira tory therapy will continue to lavage and suction the patient regularly and weaning from the ventilator. I discussed this with nursing. Hemoglobin is higher and potassium is lower today. His chest x-ray looks noticeably improved per my read. Reason For Visit: MUCOUS PLUGGING, ACUTE HYPOXIC RESPIRATORY FAILURE Physical Exam Vital Signs: Temp Pulse Resp BP Pulse Ox 97.4 F 108 H 20 114/76 97 05/24/20 08:52 05/24/20 14:00 05/24/20 07:40 05/24/20 07:40 05/24/20 15:22 Intake & Output 05/23/20 05/24/20 05/25/20 06:59 06:59 06:59 Intake Total 1787 2338 Output Total 350 1075 Balance 1437 1263 Weight 70 kg 70.2 kg 70.2 kg Exam: General appearance: PRESENT: no acute distress, frail and chronically ill- appearing, resting comfortably today, appears rather calm today Head exam: PRESENT: atraumatic, normocephalic Eye exam: PRESENT: conjunctiva pink. ABSENT: scleral icterus Mouth exam: PRESENT: moist Respiratory exam: PRESENT: Very scant rhonchi bilateral, no wheezing; trach collar in place Cardiovascular exam: PRESENT: RRR. ABSENT: diastolic murmur, rubs, systolic murmur GI/Abdominal exam: PRESENT: normal bowel sounds, soft. NG tube in place ABSENT: distended, guarding, mass, organolmegaly, rebound, tenderness Neurological exam: PRESENT: alert, awake, oriented to person, oriented to place Psychiatric exam: PRESENT: appropriate affect, normal mood Skin exam: PRESENT: dry, intact, warm Results Laboratory Results: 05/24/20 04:45 05/24/20 04:45 05/23/20 05/24/20 05/24/20 20:30 04:45 04:45 WBC 18.4 H RBC 2.96 L Hgb 8.3 L Hct 24.6 L MCV 83 MCH 28.0 MCHC 33.6 RDW 18.3 H Plt Count 116 L Seg Neutrophils % 81.8 H Sodium 140.7 Potassium 5.1 H Chloride 104 Carbon Dioxide 30 Anion Gap 7 BUN 14 Creatinine 0.78 Est GFR ( Amer) > 60 Glucose 123 H Calcium 7.9 L Blood Type A POSITIVE Antibody Screen NEGATIVE 04/20/20 04/23/20 04/23/20 09:00 01:55 01:55 Creatine Kinase < 20 L CK-MB (CK-2) 2.20 Troponin I < 0.012 0.082 NT-Pro-B Natriuret Pep 81757 H 04/23/20 04/23/20 04/23/20 05:58 08:22 14:50 Creatine Kinase < 20 L < 20 L CK-MB (CK-2) 2.24 Troponin I 0.066 NT-Pro-B Natriuret Pep 04/23/20 14:50 Creatine Kinase CK-MB (CK-2) 2.09 Troponin I 0.057 NT-Pro-B Natriuret Pep Impressions: Modified Barium Swallow 04/26/20 00:01 IMPRESSION: LARYNGEAL PENETRATION WITH THIN BARIUM, WITH TRACE ASPIRATION FROM RESIDUALS. PLEASE SEE SPEECH PATHOLOGIST REPORT FOR OTHER FINDINGS AND RECOMMENDATIONS. PICC Line Insertion 05/07/20 00:00 IMPRESSION: SUCCESSFUL PLACEMENT OF A 5 FR DUAL LUMEN 47 CM PICC IN THE LEFT BRACHIOCEPHALIC VEIN. KUB X-Ray 05/16/20 11:57 IMPRESSION: NG tube as described. Findings as described. Chest X-Ray 05/24/20 06:56 IMPRESSION: Persistent diffuse bilateral airspace disease slightly improved from prior study. Support lines and tubes remain in satisfactory position. Assessment and Plan - Diagnosis (1) Acute on chronic respiratory failure with hypoxia and hypercapnia Is this a current diagnosis for this admission?: Yes (2) Bilateral pneumonia Qualifiers: Pneumonia type: due to unspecified organism Lung location: lower lobe of lung Qualified Code(s): J18.9 - Pneumonia, unspecified organism Is this a current diagnosis for this admission?: Yes (3) Acute kidney injury superimposed on chronic kidney disease Is this a current diagnosis for this admission?: Yes (4) Acute metabolic encephalopathy Is this a current diagnosis for this admission?: Yes (5) Acute respiratory failure due to severe acute respiratory syndrome coronavirus 2 (SARS-CoV-2) infection Is this a current diagnosis for this admission?: Yes (6) Acute respiratory failure with hypoxia and hypercapnia Is this a current diagnosis for this admission?: Yes (7) Bacteremia due to Enterococcus Is this a current diagnosis for this admission?: Yes (8) Chronically on opiate therapy Is this a current diagnosis for this admission?: Yes (9) COVID-19 Is this a current diagnosis for this admission?: Yes (10) Critical illness polyneuropathy Is this a current diagnosis for this admission?: Yes (11) Diabetes mellitus type 2 in nonobese Is this a current diagnosis for this admission?: Yes (12) Hyperglycemia due to type 2 diabetes mellitus Qualifiers: Diabetes mellitus intermediate project manager insulin use: with mcfp use Qualified Code(s): E11.65 - Type 2 diabetes mellitus with hyperglycemia; Z79.4 - correction (current) use of insulin Is this a current diagnosis for this admission?: Yes (13) Hyperlipidemia Qualifiers: Hyperlipidemia type: unspecified Qualified Code(s): E78.5 - Hyperlipidemia, unspecified Is this a current diagnosis for this admission?: Yes (14) Hypertension Is this a current diagnosis for this admission?: Yes (15) Malnutrition Qualifiers: Malnutrition type: protein-calorie malnutrition Protein-calorie malnutrition severity: severe Qualified Code(s): E43 - Unspecified severe protein-calorie malnutrition Is this a current diagnosis for this admission?: Yes (16) Medical non-compliance Is this a current diagnosis for this admission?: Yes (17) Sepsis associated hypotension Is this a current diagnosis for this admission?: Yes - Plan Summary Summary: Per Previous Physician: "Mr. Freddie Sena is a 60-year-old man with HTN, HLD, DM2, CHF and recent p rolonged hospitalization for acute respiratory failure secondary to COVID-19 pneumonia s/p tracheostomy placement and discharge to a intermediate facility for continued rehabilitation. He returned to [facility] on 04/20/20 SOB, and was found to have hypoxemia, tachycardia, hypothermia and hypotension. A right femoral line was urgently placed for IV access. " Enterococcus Bacteremia (present on admission) CLABSI and MSSA Bacteremia (diagnosed 05/07/2020) -Per Previous Physician: "Blood cultures drawn on admission were obtained from the R hand and from the R femoral line; one bottle in each set (peripheral and central line) grew Enterococcus faecalis susceptible to penicillin and ampicillin. He was treated with IV vancomycin (in light of a reported penicillin allergy) for approximately 10 days (04/20-04/30). The patient refused repeat blood cultures until 05/07/20, at which time a PICC line was placed. Two sets of blood cultures were obtained - one set from the PICC line and one set from the R femoral line. After obtaining BCx, the R femoral line was removed on 05/07/2020. Both of these sets of BCx from 05/07 grew bacteria. One set grew GPCs in clusters. The other set grew VRE and presumptive MSSA. Therefore, on 05/08/2020, he was started on treatment with ampicillin and vancomycin (review of his chart raised doubt that he had a true IgE mediated penicillin allergy, as he had previously received several courses of cephalosporins). The patient has since been refusing attempts at placing PIV access in order to be able to remove his PICC line and he also refused to allow repeat BCx on 05/08. He finally allowed repeat BCx to be drawn from the PICC on 05/09. ID was consulted on 05/09 for further recommendations, which include: * Enterococcus bacteremia * This potentially represents a recurrence of the previous Enterococcal faecalis bacteremia, but right now it is not possible to definitively say this. The identification and susceptibilities for the organism are pending. The presence of vancomycin resistance for the new isolate could be acquired in the course of the prior treatment. If this is indeed a recurrence, it raises the question of a persistent focus of infection and re-seeding or failure to clear the bloodstream. * obtain TTE * continue ceftriaxone and ampicillin (ampicillin + Rocephin is an effective alternative regimen to the traditional ampicillin + gentamicin) * Depending on whether or not recurrence of E faecalis bacteremia is un explained and endocarditis is likely, Rocephin could be continued at the 2 g q12h dose or changed if this higher dose is not required. * The previous E faecalis isolate was susceptible to ampicillin. This remains the case for most vancomycin-resistant E faecalis. Follow culture results for identification of the Enterococcus species and susceptibility results. If the patient becomes hemodynamically unstable or toxic before identification/susceptibilities return, daptomycin can be used at approxim ately 8-10 mg/kg daily in place of the ampicillin. * MSSA bacteremia in the setting of a PICC line * Source unclear: infected line vs bacteremia secondary to pneumonia (aspiration vs tracheitis) * Isolation of organisms from tracheal aspirate (like any non-sterile site) has to be taken into context, and clinically - WBC count has been stable, no new fever - but he has required an increased amount of oxygen from 6L to 10 L in the past 2 days and has had increased RLL infiltrate on CXR. Leah in tracheal aspirate is usually a colonizer. Stenotrophomonas maltophilia can also be a colonizer and, in the setting of other obviously invasive pathogens, targeting therapy to include it is not necessarily warranted as long as the patient is improving with treatment aimed at the MSSA and other interventions to reduce aspiration risk and/or optimize volume status. * The PICC line should be removed. It is not recommended to attempt salvaging a line when there is Staph aureus bacteremia due to the risk for failure and relapse. * Would avoid placing a intermediate project manager line until blood cultures are known to be negative for at least 48 hours. * obtain TTE * continue Rocephin * Duration of therapy should be, at a minimum, 2 weeks from date of negative blood cultures and removal of PICC line, assuming that no endocarditis is present or metastatic foci of infection. If such is present, duration of t reatment should be longer." -Sent back to ICU for respiratory distress and acute respiratory failure on 05/14 -Daptomycin started in ICU until 05/21 Per dry chain puller, patient needs to have frequent pulmonary lavage and suctioning to avoid future mucous plugging; respiratory therapy utilizing lavage and suction daily with good results Continues to have mucus plugging intermittently which is relieved by aggressive lavage and suctioning Continue weaning vent daily Acute on chronic respiratory failure with hypoxia and hypercapnia: -Per Previous Physician: "he had an increase in WBC on 05/04- and there was concern for possible aspiration event vs tracheitis vs HAP. CXR was repeated on 05/06 and showed increased opacification in the right lung base. He has remained afebrile, on 6- 10 L O2 over the duration of his hospitalization. He had a tracheal aspirate on 05/05/20 which showed growth of Leah albicans, Stenotrophomonas maltophilia, and MSSA. He is currently on antibiotics and WBC has normalized. He is a high aspiration risk but he is unwilling to stop eating by mouth and refuses a PEG tube." -Frequently requesting to go back on ventilator and reluctant to wean Severe Protein Calorie Malnutrition: -Per Previous Physician: "due to poor PO intake. Unfortunately patient has been having aspiration events and also refusing other modes of nutrition. On 04/26/2020 patient had a modified barium swallow and recommendation was for pured diet with aspiration precautions. PICC placed on 05/07 and TPN was briefly initiated until his BCx resulted, and TPN was thus discontinued (due to ongoing bacteremia)." NG tube with tube feeds running; patient pulled out NG tube partially on 05/21 and this was replaced Tracheostomy in place: -Per Previous Physician: "Continue tracheostomy care. Aggressive pulmonary toileting. Inner cannula is showing evidence of the increased secretions. Because of his insistence on eating PO, he has significantly delaying the possibility of decannulation." Hyperglycemia due to type 2 diabetes mellitus: -Per Previous Physician: "glucose control is reasonable. His intake does vary. He continues to refuse PEG tube placement. This would in fact significantly improve the trajectory of his recovery. This has been suggested multiple times and he adamantly refuses each time. Will need to adjust treatment as his diet changes." Candiduria: -Per Previous Physician: "Urine culture positive for Leah albicans. The patient does have an indwelling Varner catheter which has been exchanged this admission." -colonized bladder Chronic Urinary Retention: -exchange Varner catheter every 4 weeks to prevent CAUTI. Anemia of Chronic Disease: -hemoglobin has been 7-8 since January 2020. Ferritin elevated (not iron deficiency). He has no evidence of active blood loss. Transfused 1 unit PRBC on 05/23 for drop in hemoglobin down to 6.9 Critical illness myopathy: -PT and OT due to the severe deconditioning from his prolonged illness and prolonged hospitalizations. Medical non-adherence: -Per Previous Physician: "he has been requesting food that is not on his recommended diet. He is, at times, a willing participant in the treatment plan but, at other times, lacks insight and has poor judgment. He remains a FULL CODE and does not wish to change his code status, despite ongoing dysphagia, oral intake and high risk for future aspiration episodes. We discussed at length today the risk of morbidity and mortality due to bacteremia, the importance of antibiotics, the importance of removing his PICC line and allowing us to place PIVs, etc. He is bargaining and stating that he will accept certain medications and medical interventions only if he can get IV opioids for treatment of his chronic MSK pain. We agreed that I would change his oral oxycodone dosage to an equivalent IV morphine dosage, but that he can no longer decline these medical interventions and he is agreeable at this time. Discussed with RN." Patient frequently demanding specifically IV formulation narcotics and sedatives Complicated disposition: Patient reportedly unable to go to SNF while utilizing the vent, only option is to wean and eventually stop the ventilator support for him to go back to SNF Patient reportedly unable to go to [facility] due to having NG tube instead of PEG tube. They are able to help patient wean from the ventilator there and he can get appropriate rehab as well. Patient has previously refused PEG tube and he continues to refuse it now - Time Time Spent with patient: 25-34 minutes Medications reviewed and adjusted accordingly: Yes Anticipated Discharge Disposition: Skilled Nursing Care Facility Anticipated Discharge Timeframe: within 72 hours - Inpatient Certification Based on my medical assessment, after consideration of the patient's co morbidities, presenting symptoms, or acuity I expect that the services needed warrant INPATIENT care.: Yes I certify that my determination is in accordance with my understanding of Medicare's requirements for reasonable and necessary INPATIENT services [42 CFR 412.3e].: Yes Medical Necessity: Significant Comorbidiites Make Outpatient Treatment Too Risky, Need Close Monitoring Due to Risk of Patient Decompensation, Need for Nebulizer Therapy and Monitoring of Response, Risk of Complication if Not Cared For in Hospital, Risk of Diagnosis Which Will Require Inpatient Eval/Care/Monitoring
[2020-05-24] MEDS: NORMAL SALINE 1000 ML 1,000 ML IV PRN (17:55)
[2020-05-24] MEDS: PROMETHAZINE HCL INJ 25 MG/1 ML VIAL IV PRN (20:29)
[2020-05-24] MEDS: DEXTROSE 5%-NORMAL SALINE 1,000 ML IV PRN (22:10)
[2020-05-25] MEDS: IPRATROPIUM/ALBUTEROL 0.5-2.5 MG/3 ML AMPUL NEB PRN ×2 (00:53→17:40)
[2020-05-25] MEDS: INSULIN REG, HUMAN 100 UNIT/ML 3 ML VIAL (PYX) SUBCUT SCH ×4 (01:00→17:56)
[2020-05-25] MEDS: OXYCODONE HCL IR 5 MG TABLET NG SCH ×2 (05:03→12:59)
[2020-05-25] MEDS: METOCLOPRAMIDE HCL INJ/PF 10 MG/2 ML SDV IV SCH ×3 (05:08→21:05)
[2020-05-25] MEDS: DEXTROSE 5%-NORMAL SALINE 1,000 ML IV PRN (06:56)
[2020-05-25] MEDS: NYSTATIN TOPICAL POWDER 15 GM TP SCH (10:18)
--- NOTE | 2020-05-25 12:06 | RADIOLOGY REPORT (SQ) ---
EXAM DESCRIPTION: CHEST SINGLE VIEW IMAGES COMPLETED DATE/TIME: 05/25/2020 11:56 am REASON FOR STUDY: NG tube placement COMPARISON: 05/24/2020 EXAM PARAMETERS: NUMBER OF VIEWS: One view TECHNIQUE: Single frontal radiograph of the chest. RADIATION DOSE: N/A LIMITATIONS: None. FINDINGS: TEMPORARY SUPPORT DEVICES:Tracheostomy. NG tube courses below the elizabeth-diaphragm in to th e stomach. PICC catheter from left peripheral approach is in expected location. LUNGS AND PLEURA: Two views parenchymal opacities throughout both lungs. No improvement. MEDIASTINUM AND HILAR STRUCTURES: No masses. Contour normal. HEART AND VASCULAR STRUCTURES: Heart size normal. Normal vascularity. Aorta normal for age BONES: No acute findings. OTHER: No other significant finding. IMPRESSION: No improvement in the diffuse opacities likely covid 19. SUPPORT DEVICE(S) IN EXPECTED LOCATIONS. TECHNICAL DOCUMENTATION: JOB ID: [id number] 2010 [employer]- All Rights Reserved Reading location - IP/workstation name: [email or web address]
[2020-05-25] MEDS: PHOSPHORUS #1 250 MG TABLET NG SCH ×4 (12:35→21:04)
[2020-05-25] MEDS: POTASSIUM CHLORIDE 20 MEQ PACKET NG SCH (12:36)
[2020-05-25] MEDS: BUSPIRONE HCL 10 MG TABLET PO SCH (12:36)
[2020-05-25] MEDS: NIFEDIPINE 30 MG TAB.ER.24 PO SCH (12:36)
[2020-05-25] MEDS: CALCIUM CARBONATE 500 MG TAB.CHEW NG SCH ×2 (12:37→17:17)
[2020-05-25] MEDS: PANTOPRAZOLE SODIUM 40 MG VIAL IV SCH (12:44)
[2020-05-25] MEDS: PROMETHAZINE HCL INJ 25 MG/1 ML VIAL IV PRN (12:59)
[2020-05-25] MEDS ORDERED: DIPHENHYDRAMINE HCL 50 MG CAPSULE NG ONE (13:00)
[2020-05-25] MEDS ORDERED: PHOSPHORUS #1 250 MG TABLET NG ONE (13:00)
[2020-05-25] MEDS ORDERED: POTASSIUM CHLORIDE 20 MEQ PACKET NG ONE (13:00)
[2020-05-25] MEDS ORDERED: BUSPIRONE HCL 10 MG TABLET PO ONE (13:00)
[2020-05-25] MEDS ORDERED: POTASSIUM CHLORIDE 10 MEQ TABLET.ER PO ONE (13:00)
[2020-05-25] MEDS ORDERED: CALCIUM CARBONATE 500 MG TAB.CHEW NG ONE (13:00)
[2020-05-25] MEDS ORDERED: NIFEDIPINE 30 MG TAB.ER.24 PO ONE (13:00)
[2020-05-25] MEDS: DIPHENHYDRAMINE HCL 50 MG CAPSULE NG PRN ×2 (15:09→21:05)
[2020-05-25] MEDS: OXYCODONE-ACETAMINOPHEN 5-325 MG TABLET NG PRN ×2 (15:09→21:05)
[2020-05-25] MEDS ORDERED: DEXTROSE 40% GEL 15 GM TUBE PO PRN ×2 (15:20)
[2020-05-25] MEDS ORDERED: GLUCAGON,HUMAN RECOMB 1 MG INJ SUBCUT PRN (15:20)
--- NOTE | 2020-05-25 15:20 | PDOC CONSULTATION ---
Consultation Consult Date: 05/25/20 Provider Consulted: CARLO GALO Consult reason:: Need of PEG History of Present Illness Admission Date/PCP: 04/20/20 13:42 GOLD ELENA History of Present Illness: FREDDIE LAZO JR is a 60 year old male past medical history of type 2 diabetes hypertension CHF narcotic dependence CKD who was recently discharged from [facility] April 19, 2020 after being admitted for 89 days secondary to acute respiratory failure from COVID eumonia. He was discharged with a tracheostomy tube uncuffed. The patient was readmitted after [facility] because of mucous plugging, aspiration pneumonia, and related complications. He is currently ventilator dependent on the floor through his tracheostomy. He is now willing to undergo placement of PEG so the patient be transferred to an LTAC facility. Past Medical History Cardiac Medical History: Reports: Congestive Heart Failure, Hypertension Denies: Coronary Artery Disease, Hyperlipidema Pulmonary Medical History: Reports: Intubation, Respiratory Failure Denies: Asthma, Chronic Obstructive Pulmonary Disease (COPD) Neurological Medical History: Denies: Seizures Endocrine Medical History: Reports: Diabetes Mellitus Type 2 Renal/ Medical History: Reports: End Stage Renal Disease - Recently diagnosed with stage IV CKD GI Medical History: Denies: Cirrhosis, Hepatitis Musculoskeltal Medical History: Reports: Arthritis Denies: Gout Skin Medical History: Denies: Eczema, Psoriasis Psychiatric Medical History: Reports: Depression Hematology: Reports: Anemia - Recently diagnosed Denies: Bleeding Tendencies Past Surgical History Past Surgical History: Reports: Orthopedic Surgery - Multiple surgeries, Other - Tracheostomy, 03/18/2020 Social History Lives with: Custodial - [employer] Smoking Status: Unknown if Ever Smoked Frequency of Alcohol Use: None Hx Recreational Drug Use: No Drugs: None Hx Prescription Drug Abuse: No - Advance Directive Resuscitation Status: Full Code Family History Family History: Reviewed & Not Pertinent, DM Parental Family History Reviewed: No Children Family History Reviewed: No Sibling(s) Family History Reviewed.: No Medication/Allergy Home Medications: Furosemide [Lasix 20 mg Tablet] 20 mg PO DAILY tablet 04/19/20 Insulin Glargine,Hum.rec.anlog [Lantus Insulin 100 Unit/1 ml 10 ml] 5 unit SUBCUT DAILY unit 04/19/20 Insulin Lispro [Humalog Insulin (Lispro) 100 unit/mL] 0 - 12 unit SUBCUT ACHS unit 04/19/20 Lactulose [Cephulac Syrup 20 gm/30 ml Udcup] 10 gm PO Q12 udc 04/19/20 Lisinopril [Prinivil 5 mg Tablet] 2.5 mg PO Q12 tablet 04/19/20 Metoprolol Succinate [Toprol Xl 25 mg Tab.sr] 25 mg PO DAILY tab.sr.24h 04/19/20 Oxycodone HCl/Acetaminophen [Percocet 5-325 mg Tablet] 1 tab PO Q4HP PRN #14 tablet 04/19/20 Scopolamine Hydrobromide [Transderm-Scop 1.5 mg Patch] 1 each TD Q3DAYS patch.td72 04/19/20 Sennosides/Docusate 8.6-50 mg [Senna Plus Tablet] 2 each PO DAILY tablet 04/19/20 Thiamine HCl [Thiamine 100 mg Tablet] 100 mg PO DAILY tablet 04/19/20 Trazodone HCl [Desyrel 50 mg Tablet] 100 mg NG HSP PRN tablet 04/19/20 Allergies/Adverse Reactions: iodine Allergy (Verified 01/23/20 23:19) shellfish derived Allergy (Verified 01/23/20 23:19) Sulfa (Sulfonamide Antibiotics) Allergy (Verified 01/23/20 23:19) Physical Exam Vital Signs: Temp Pulse Resp BP Pulse Ox 97.2 F 115 H 21 H 142/107 H 97 05/25/20 08:37 05/25/20 07:00 05/25/20 00:55 05/24/20 23:23 05/25/20 08:12 Intake & Output 05/24/20 05/25/20 05/26/20 06:59 06:59 06:59 Intake Total 2338 1841 699 Output Total 1075 1550 Balance 1263 291 699 Weight 70.2 kg 69.8 kg General appearance: PRESENT: no acute distress, disheveled, thin Head exam: PRESENT: atraumatic, normocephalic Eye exam: PRESENT: EOMI Mouth exam: PRESENT: moist, other - Tracheostomy in place Neck exam: PRESENT: full ROM, tracheostomy Respiratory exam: PRESENT: crackles, rhonchi Cardiovascular exam: PRESENT: RRR GI/Abdominal exam: PRESENT: soft - Not distended, not tender, no surgical scars identified Extremities exam: PRESENT: full ROM Musculoskeletal exam: PRESENT: full ROM Neurological exam: PRESENT: alert, awake, oriented to person, oriented to place, oriented to situation Psychiatric exam: PRESENT: appropriate affect Skin exam: PRESENT: warm Results Laboratory Results: 05/24/20 04:45 05/24/20 04:45 04/20/20 04/23/20 04/23/20 09:00 01:55 01:55 Creatine Kinase < 20 L CK-MB (CK-2) 2.20 Troponin I < 0.012 0.082 NT-Pro-B Natriuret Pep 07326 H 04/23/20 04/23/20 04/23/20 05:58 08:22 14:50 Creatine Kinase < 20 L < 20 L CK-MB (CK-2) 2.24 Troponin I 0.066 NT-Pro-B Natriuret Pep 04/23/20 14:50 Creatine Kinase CK-MB (CK-2) 2.09 Troponin I 0.057 NT-Pro-B Natriuret Pep Impressions: Modified Barium Swallow 04/26/20 00:01 IMPRESSION: LARYNGEAL PENETRATION WITH THIN BARIUM, WITH TRACE ASPIRATION FROM RESIDUALS. PLEASE SEE SPEECH PATHOLOGIST REPORT FOR OTHER FINDINGS AND RECOMMENDATIONS. PICC Line Insertion 05/07/20 00:00 IMPRESSION: SUCCESSFUL PLACEMENT OF A 5 FR DUAL LUMEN 47 CM PICC IN THE LEFT BRACHIOCEPHALIC VEIN. KUB X-Ray 05/16/20 11:57 IMPRESSION: NG tube as described. Findings as described. Chest X-Ray 05/25/20 00:00 IMPRESSION: No improvement in the diffuse opacities likely covid 19. SUPPORT DEVICE(S) IN EXPECTED LOCATIONS. Assessment & Plan - Diagnosis (1) Acute on chronic respiratory failure with hypoxia and hypercapnia Is this a current diagnosis for this admission?: Yes (2) Bacteremia due to Enterococcus Is this a current diagnosis for this admission?: Yes (3) Bilateral pneumonia Qualifiers: Pneumonia type: aspiration pneumonia Lung location: lower lobe of lung Is this a current diagnosis for this admission?: Yes (4) Malnutrition Qualifiers: Malnutrition type: protein-calorie malnutrition Protein-calorie malnutrition severity: severe Qualified Code(s): E43 - Unspecified severe protein-calorie malnutrition Is this a current diagnosis for this admission?: Yes (5) Aspiration pneumonia Qualifiers: Laterality: bilateral Is this a current diagnosis for this admission?: Yes - Plan Summary Plan Summary: Assessment: 60-year-old male with multiple medical problems including bilateral pneumonitis, respiratory failure, tracheostomy, respirator dependency Patient in need of PEG for nutrition purposes, currently the patient is being fed via NG tube Patient MRSA positive Plan: PEG placement under general esthesia via tracheostomy to be done tomorrow. The procedure, risk, benefits, complications, including bowel injury, bleeding, wound infection, and possible have been discussed with the patient, his questions answered, he fullness to the old above issues, he decides to proceed N.p.o. after mid-night No Covid test necessary at this point IV fluids Bactrim IV piggyback 1 dose prior to procedure tomorrow
[2020-05-25] MEDS: OXYCODONE HCL IR 5 MG TABLET NG PRN (17:17)
--- NOTE | 2020-05-25 17:50 | PDOC PROGRESS REPORT ---
Subjective Subjective:: Per admitting physician: "FREDDIE SENA JR is a 60 year old male, past medical history of type 2 diabetes hypertension CHF narcotic dependence CKD who was recently discharged from [facility] April 19, 2020 after being admitted for 89 days secondary to acute respiratory failure from COVID pneumonia. He was discharged with a tracheostomy tube uncuffed. Before discharge he has been able to speak and eat and the plan was to eventually remove the tracheostomy at [facility]. Sent back to the emergency room for evaluation of shortness of breath. EMS was called by the facility because the patient was diaphoretic with a blood glucose of 30 staff administered 1 mg glucagon in a tube and a half of oral glucose prior to EMS arrival and recheck of blood glucose was 40. Upon EMS arrival patient was pale with diminished breath sounds so he was placed on 15 L O2 via nonrebreather O2 sats went up to 86% and blood glucose was 147 upon ED arrival. In the emergency room he apparently continued to be hypoxic hence a trach cuff was placed and he was put back on mechanical ventilation briefly. He was also noted to be hypotensive hence central line was placed by Dr. Jean-Baptiste. Patient was given IV fluids. Repeat chest x-ray showed improvement of his diffuse bibasilar opacities compared from previous chest x-ray. Dr. Chandler evaluated him in the ED who felt that he does not need ICU admission. He was given 4 L of IV fluids. He was eventually transitioned to tracheal collar and was maintaining his O2 saturation to 95%. Patient was then admitted for further management. WBC count 19.5 in the ED he was given 1 dose of aztreonam and vancomycin." Per Previous Physician: "05/14/2020 MUCOUS PLUGGING, ACUTE HYPOXIC RESPIRATORY FAILURE Patient was seen early on in rounds this morning. At the time patient was noted to sound congested. He however had been suctioned and apparently no further suctioning required at that time. I discussed with the patient the need to be able to give him medications either through an NG tube or PEG tube IV fluids or TPN or combination of all these however patient refused. Patient was new to me today and after discussing with the nurse I did find out that he had been refusing multiple modalities of treatment and management. About 30 minutes after saw this patient when he was still relatively stable a rapid response was called and apparently he went into respiratory distress. He was found to be hypoxic. By the time he got there he was cyanotic. His oxygen saturation was in the 60s also. He was 100% oxygen and his BiPAP setting was changed. Multiple attempts to oxygenate him failed. It was felt that patient will be better served in the intensive care unit. Steward/Stewardess Night was informed and Came to assess patient. Patient was transferred to the unit. Please see Dr. Hernández's notes for further details chest x-ray obtained reveals diffuse opaci fication in the left chest possibly due to extensive infiltrate atelectasis collapse pleural effusion with improved aeration in the right lung base. This is consistent with his lung findings which shows grossly diminished air entry." 05/20/2020 Patient sent out of the ICU yesterday afternoon. Per my discussion with Dr. Chandler, patient has frequent mucous plugging and needs to be lavaged and suc tioned by respiratory therapy frequently. It is likely the patient will continue mucous plugging intermittently and may need to be sent back to the ICU at some point. He has been maintained on trach collar with intermittent ventilatory support. Patient was asking for increases in his narcotics and I discussed the risks of respiratory depression if we were to pursue this. We will keep his narcotics at the current dosing and frequency for now. 05/21/2020 Patient had a episode of mucous plugging which resolved with aggressive lavage and suctioning by RT. Patient also had a problem with his NG feeding tube where it was somewhat displaced and nursing replaced this infected follow-up chest x- ray To confirm location. Blood culture on 05/09 remains negative. Latest chest x-ray shows diffuse bilateral disease which could potentially be worse. Patient is calm and resting today and does not have any new complaints. 05/22/2020 Patient appears rather calm today until I entered the room. He then wrote on his marker board and mouthed words to me stating he wants IV narcotics and IV sedatives. I discussed with him that adding these medications could be detrimental to his respiratory status. We will keep his pain medication as it is for now. I believe he is gradually improving as respiratory therapy is doing a great job lavaging and suctioning out large mucous plugs daily. Perhaps if we do enough of this every day, patient will be able to wean from the ventilator and tolerate trach collar alone. 05/23/2020 I had an extensive discussion with the patient today regarding PEG tube placement and he repeatedly stated he wanted to speak to the doctor and I repeatedly told him I am the doctor. I asked him if he would like me to get the surgeon involved to place a PEG tube. He refused to answer me at this point and did not seem interested in any my recommendations. We will ask respiratory therapy if he can get CPT to break up mucous plugs, continue lavaging and suctioning, and continue attempting to wean from the vent. Hemoglobin showed an acute drop down to 6.4 and this was rechecked to reveal 6.9. We will transfuse 1 unit PRBC which may help with his oxygenation as well. Will need to be mindful of the extra volume this will provide and watch for volume overload. Blood cell count is higher while hemoglobin and platelets are lower. Calcium is significantly lower we will replete this both IV and oral. 05/24/2020 Patient is resting comfortably today. He is off IV antibiotics and I have discontinued his IV Benadryl in place of Benadryl capsules that can go through his NG tube. We are still waiting on the patient to decide if he wants a PEG tube to be placed. It is my understanding that he cannot go to an acute care facility for rehab until he has a definitive feeding tube placed and he cannot go to a regular SNF while he is requiring the vent. If the patient wants a PEG tube or if we can wean him from the vent, disposition can move forward. Respira tory therapy will continue to lavage and suction the patient regularly and weaning from the ventilator. I discussed this with nursing. Hemoglobin is higher and potassium is lower today. His chest x-ray looks noticeably improved per my read. 05/25/2020 Patient fully awake and alert today and states repeatedly that he wants a PEG tube placed. He states that his pain after procedures is only well controlled on Dilaudid and I stated I would give him a low-dose of Dilaudid available as needed afterwards. I have consulted general surgery discussed case with Dr. Small who is agreed to consult on the patient. Patient will have his PEG tube placed tomorrow and will be n.p.o. at midnight tonight. Tube feeds will need to be held. We will make sure the patient has adequate pain control afterwards. Case management will need to start aggressively applying the patient for LTAC facilities starting on Wednesday. Reason For Visit: MUCOUS PLUGGING, ACUTE HYPOXIC RESPIRATORY FAILURE Physical Exam Vital Signs: Temp Pulse Resp BP Pulse Ox 98.0 F 107 H 21 H 99/63 L 94 05/25/20 15:09 05/25/20 15:09 05/25/20 15:09 05/25/20 15:09 05/25/20 15:30 Intake & Output 05/24/20 05/25/20 05/26/20 06:59 06:59 06:59 Intake Total 2338 1841 874 Output Total 1075 1550 200 Balance 1263 291 674 Weight 70.2 kg 69.8 kg Exam: General appearance: PRESENT: no acute distress, frail and chronically ill- appearing, resting comfortably today, very lively and states repeatedly he wants a PEG tube Head exam: PRESENT: atraumatic, normocephalic Eye exam: PRESENT: conjunctiva pink. ABSENT: scleral icterus Mouth exam: PRESENT: moist Respiratory exam: PRESENT: Very scant rhonchi bilateral, no wheezing; trach collar in place Cardiovascular exam: PRESENT: RRR. ABSENT: diastolic murmur, rubs, systolic murmur GI/Abdominal exam: PRESENT: normal bowel sounds, soft. NG tube in place ABSENT: distended, guarding, mass, organolmegaly, rebound, tenderness Neurological exam: PRESENT: alert, awake, oriented to person, oriented to place Psychiatric exam: PRESENT: appropriate affect, normal mood Skin exam: PRESENT: dry, intact, warm Results Laboratory Results: 05/24/20 04:45 05/24/20 04:45 04/20/20 04/23/20 04/23/20 09:00 01:55 01:55 Creatine Kinase < 20 L CK-MB (CK-2) 2.20 Troponin I < 0.012 0.082 NT-Pro-B Natriuret Pep 47761 H 04/23/20 04/23/20 04/23/20 05:58 08:22 14:50 Creatine Kinase < 20 L < 20 L CK-MB (CK-2) 2.24 Troponin I 0.066 NT-Pro-B Natriuret Pep 04/23/20 14:50 Creatine Kinase CK-MB (CK-2) 2.09 Troponin I 0.057 NT-Pro-B Natriuret Pep Impressions: Modified Barium Swallow 04/26/20 00:01 IMPRESSION: LARYNGEAL PENETRATION WITH THIN BARIUM, WITH TRACE ASPIRATION FROM RESIDUALS. PLEASE SEE SPEECH PATHOLOGIST REPORT FOR OTHER FINDINGS AND RECOMMENDATIONS. PICC Line Insertion 05/07/20 00:00 IMPRESSION: SUCCESSFUL PLACEMENT OF A 5 FR DUAL LUMEN 47 CM PICC IN THE LEFT BRACHIOCEPHALIC VEIN. KUB X-Ray 05/16/20 11:57 IMPRESSION: NG tube as described. Findings as described. Chest X-Ray 05/25/20 00:00 IMPRESSION: No improvement in the diffuse opacities likely covid 19. SUPPORT DEVICE(S) IN EXPECTED LOCATIONS. Assessment and Plan - Diagnosis (1) Acute on chronic respiratory failure with hypoxia and hypercapnia Is this a current diagnosis for this admission?: Yes (2) Bilateral pneumonia Qualifiers: Pneumonia type: aspiration pneumonia Lung location: lower lobe of lung Is this a current diagnosis for this admission?: Yes (3) Acute kidney injury superimposed on chronic kidney disease Is this a current diagnosis for this admission?: Yes (4) Acute metabolic encephalopathy Is this a current diagnosis for this admission?: Yes (5) Acute respiratory failure due to severe acute respiratory syndrome coronavirus 2 (SARS-CoV-2) infection Is this a current diagnosis for this admission?: Yes (6) Acute respiratory failure with hypoxia and hypercapnia Is this a current diagnosis for this admission?: Yes (7) Bacteremia due to Enterococcus Is this a current diagnosis for this admission?: Yes (8) Chronically on opiate therapy Is this a current diagnosis for this admission?: Yes (9) COVID-19 Is this a current diagnosis for this admission?: Yes (10) Critical illness polyneuropathy Is this a current diagnosis for this admission?: Yes (11) Diabetes mellitus type 2 in nonobese Is this a current diagnosis for this admission?: Yes (12) Hyperglycemia due to type 2 diabetes mellitus Qualifiers: Diabetes mellitus mcc insulin use: with assistant terminal manager use Qualified Code(s): E11.65 - Type 2 diabetes mellitus with hyperglycemia; Z79.4 - nursing home (current) use of insulin Is this a current diagnosis for this admission?: Yes (13) Hyperlipidemia Qualifiers: Hyperlipidemia type: unspecified Qualified Code(s): E78.5 - Hyperlipidemia, unspecified Is this a current diagnosis for this admission?: Yes (14) Hypertension Is this a current diagnosis for this admission?: Yes (15) Malnutrition Qualifiers: Malnutrition type: protein-calorie malnutrition Protein-calorie malnutrition severity: severe Qualified Code(s): E43 - Unspecified severe protein-calorie malnutrition Is this a current diagnosis for this admission?: Yes (16) Medical non-compliance Is this a current diagnosis for this admission?: Yes (17) Sepsis associated hypotension Is this a current diagnosis for this admission?: Yes - Plan Summary Summary: Per Previous Physician: "Mr. Freddie Sena is a 60-year-old man with HTN, HLD, DM2, CHF and recent prolonged hospitalization for acute respiratory failure secondary to COVID-19 pneumonia s/p tracheostomy placement and discharge to a custodial facility for continued rehabilitation. He returned to [facility] on 04/20/20 SOB, and was found to have hypoxemia, tachycardia, hypothermia and hypotension. A right femoral line was urgently placed for IV access. " Enterococcus Bacteremia (present on admission) CLABSI and MSSA Bacteremia (diagnosed 05/07/2020) -Per Previous Physician: "Blood cultures drawn on admission were obtained from the R hand and from the R femoral line; one bottle in each set (peripheral and central line) grew Enterococcus faecalis susceptible to penicillin and ampicillin. He was treated with IV vancomycin (in light of a reported penicillin allergy) for approximately 10 days (04/20-04/30). The patient refused repeat blood cultures until 05/07/20, at which time a PICC line was placed. Two sets of blood cultures were obtained - one set from the PICC line and one set from the R femoral line. After obtaining BCx, the R femoral line was removed on 05/07/2020. Both of these sets of BCx from 05/07 grew bacteria. One set grew GPCs in clusters. The other set grew VRE and presumptive MSSA. Therefore, on 05/08/2020, he was started on treatment with ampicillin and vancomycin (review of his chart raised doubt that he had a true IgE mediated penicillin allergy, as he had previously received several courses of cephalosporins). The patient has since been refusing attempts at placing PIV access in order to be able to remove his PICC line and he also refused to allow repeat BCx on 05/08. He finally allowed repeat BCx to be drawn from the PICC on 05/09. ID was consulted on 05/09 for further recommendations, which include: * Enterococcus bacteremia * This potentially represents a recurrence of the previous Enterococcal faecalis bacteremia, but right now it is not possible to definitively say this. The identification and susceptibilities for the organism are pending. The presence of vancomycin resistance for the new isolate could be acquired in the course of the prior treatment. If this is indeed a recurrence, it raises the question of a persistent focus of infection and re-seeding or f ailure to clear the bloodstream. * obtain TTE * continue ceftriaxone and ampicillin (ampicillin + Rocephin is an effective alternative regimen to the traditional ampicillin + gentamicin) * Depending on whether or not recurrence of E faecalis bacteremia is unexplained and endocarditis is likely, Rocephin could be continued at the 2 g q12h dose or changed if this higher dose is not required. * The previous E faecalis isolate was susceptible to ampicillin. This remains the case for most vancomycin-resistant E faecalis. Follow culture results for identification of the Enterococcus species and susceptibility results. If the patient becomes hemodynamically unstable or toxic before identification/susceptibilities return, daptomycin can be used at approximately 8-10 mg/kg daily in place of the ampicillin. * MSSA bacteremia in the setting of a PICC line * Source unclear: infected line vs bacteremia secondary to pneumonia (aspiration vs tracheitis) * Isolation of organisms from tracheal aspirate (like any non-sterile site) has to be taken into context, and clinically - WBC count has been stable, no new fever - but he has required an increased amount of oxygen from 6L to 10 L in the past 2 days and has had increased RLL infiltrate on CXR. Leah in tracheal aspirate is usually a colonizer. Stenotrophomonas maltophilia can also be a colonizer and, in the setting of other obviously invasive pathogens, targeting therapy to include it is not necessarily warranted as long as the patient is improving with treatment aimed at the MSSA and other interventions to reduce aspiration risk and/or optimize volume status. * The PICC line should be removed. It is not recommended to attempt jennifer ging a line when there is Staph aureus bacteremia due to the risk for failure and relapse. * Would avoid placing a mcc line until blood cultures are known to be negative for at least 48 hours. * obtain TTE * continue Rocephin * Duration of therapy should be, at a minimum, 2 weeks from date of negative blood cultures and removal of PICC line, assuming that no endocarditis is present or metastatic foci of infection. If such is present, duration of treatment should be longer." -Sent back to ICU for respiratory distress and acute respiratory failure on 05/14 -Daptomycin started in ICU until 05/21 Per fiscal manager, patient needs to have frequent pulmonary lavage and suctioning to avoid future mucous plugging; respiratory therapy utilizing lavage and suction daily with good results Continues to have mucus plugging intermittently which is relieved by aggressive lavage and suctioning Continue weaning vent daily Acute on chronic respiratory failure with hypoxia and hypercapnia: -Per Previous Physician: "he had an increase in WBC on 05/04- and there was concern for possible aspiration event vs tracheitis vs HAP. CXR was repeated on 05/06 and showed inc reased opacification in the right lung base. He has remained afebrile, on 6-10 L O2 over the duration of his hospitalization. He had a tracheal aspirate on 05/05/20 which showed growth of Leah albicans, Stenotrophomonas maltophilia, and MSSA. He is currently on antibiotics and WBC has normalized. He is a high aspiration risk but he is unwilling to stop eating by mouth and refuses a PEG tube." -Frequently requesting to go back on ventilator and reluctant to wean Severe Protein Calorie Malnutrition: -Per Previous Physician: "due to poor PO intake. Unfortunately patient has been having aspiration events and also refusing other modes of nutrition. On 04/26/2020 patient had a modified barium swallow and recommendation was for pured diet with aspiration precautions. PICC placed on 05/07 and TPN was briefly initiated until his BCx resulted, and TPN was thus discontinued (due to ongoing bacteremia)." NG tube with tube feeds running; patient pulled out NG tube partially on 05/21 and this was replaced General surgery consulted on 05/25 for PEG tube placement: Planning to place the PEG tube on 05/26, n.p.o. at midnight for this Plan to have case management apply patient for LTAC placement after PEG tube was placed Tracheostomy in place: -Per Previous Physician: "Continue tracheostomy care. Aggressive pulmonary toileting. Inner cannula is showing evidence of the increased secretions. Because of his insistence on eating PO, he has significantly delaying the possibility of decannulation." Hyperglycemia due to type 2 diabetes mellitus: -Per Previous Physician: "glucose control is reasonable. His intake does vary. He continues to refuse PEG tube placement. This would in fact significantly improve the trajectory of his recovery. This has been suggested multiple times and he adamantly refuses each time. Will need to adjust treatment as his diet changes." Candiduria: -Per Previous Physician: "Urine culture positive for Leah albicans. The patient does have an indwelling Varner catheter which has been exchanged this admission." -colonized bladder Chronic Urinary Retention: -exchange Varner catheter every 4 weeks to prevent CAUTI. Anemia of Chronic Disease: -hemoglobin has been 7-8 since January 2020. Ferritin elevated (not iron deficiency). He has no evidence of active blood loss. Transfused 1 unit PRBC on 05/23 for drop in hemoglobin down to 6.9 Critical illness myopathy: -PT and OT due to the severe deconditioning from his prolonged illness and prolonged hospitalizations. Medical non-adherence: -Per Previous Physician: "he has been requesting food that is not on his recommended diet. He is, at times, a willing participant in the treatment plan but, at other times, lacks insight and has poor judgment. He remains a FULL CODE and does not wish to change his code status, despite ongoing dysphagia, oral intake and high risk for future aspiration episodes. We discussed at length today the risk of morbidity and mortality due to bacteremia, the importance of antibiotics, the importance of removing his PICC line and allowing us to place PIVs, etc. He is bargaining and stating that he will accept certain medications and medical interventions only if he can get IV opioids for treatment of his chronic MSK pain. We agreed that I would change his oral oxycodone dosage to an equivalent IV morphine dosage, but that he can no longer decline these medical interventions and he is agreeable at this time. Discussed with RN." Patient frequently demanding specifically IV formulation narcotics and sedatives Complicated disposition: Patient reportedly unable to go to SNF while utilizing the vent, only option is to wean and eventually stop the ventilator support for him to go back to SNF Patient reportedly unable to go to [facility] due to having NG tube instead of PEG tube. They are able to help patient wean from the ventilator there and he can get appropriate rehab as well. Patient has previously refused PEG tube and he continues to refuse it now - Time Time Spent with patient: 35 or more minutes Medications reviewed and adjusted accordingly: Yes Anticipated Discharge Disposition: Intermediate Care Facility Anticipated Discharge Timeframe: within 72 hours - Inpatient Certification Based on my medical assessment, after consideration of the patient's comorbidities, presenting symptoms, or acuity I expect that the services needed warrant INPATIENT care.: Yes I certify that my determination is in accordance with my understanding of Medicare's requirements for reasonable and necessary INPATIENT services [42 CFR 412.3e].: Yes Medical Necessity: Significant Comorbidiites Make Outpatient Treatment Too Risky , Need Close Monitoring Due to Risk of Patient Decompensation, Need for Surgery, Risk of Complication if Not Cared For in Hospital, Risk of Diagnosis Which Will Require Inpatient Eval/Care/Monitoring
[2020-05-26] MEDS ORDERED: DOXYCYCLINE HYCLATE INJ 100 MG VIAL IV ONE (00:01)
[2020-05-26] MEDS: IPRATROPIUM/ALBUTEROL 0.5-2.5 MG/3 ML AMPUL NEB PRN (02:50)
[2020-05-26] MEDS: INSULIN REG, HUMAN 100 UNIT/ML 3 ML VIAL (PYX) SUBCUT SCH ×4 (03:30→17:32)
[2020-05-26] MEDS: PROMETHAZINE HCL INJ 25 MG/1 ML VIAL IV PRN ×2 (03:47→20:49)
[2020-05-26] MEDS: DIPHENHYDRAMINE HCL 50 MG CAPSULE NG PRN (03:48)
[2020-05-26] MEDS: OXYCODONE HCL IR 5 MG TABLET NG PRN (03:48)
[2020-05-26] MEDS ORDERED: DOXYCYCLINE HYCLATE 200 MG in DEXTROSE 5%-WATER 250 ML IV PRN (05:00)
[2020-05-26] MEDS: METOCLOPRAMIDE HCL INJ/PF 10 MG/2 ML SDV IV SCH ×3 (05:30→21:20)
[2020-05-26] MEDS: NORMAL SALINE 1000 ML 1,000 ML IV PRN ×3 (06:16→19:41)
[2020-05-26] MEDS ORDERED: EPHEDRINE SULFATE INJ 50 MG/1 ML AMPULE ONE (08:12)
[2020-05-26] MEDS ORDERED: FENTANYL CITRATE INJ/PF 100 MCG/2 ML AMPUL ONE (08:12)
[2020-05-26] MEDS ORDERED: PROPOFOL INJ 200 MG/20 ML VIAL IV ONE (08:43)
--- NOTE | 2020-05-26 10:18 | Operative Report ---
Operative Report DATE OF SURGERY: 05/26/20 PREOPERATIVE DIAGNOSIS: Need of PEG placement POSTOPERATIVE DIAGNOSIS: Same OPERATION: PEG placement SURGEON: CARLO GALO ANESTHESIA: Moderate Sedation - 10 mL of 1% lidocaine TISSUE REMOVED OR ALTERED: None COMPLICATIONS: None ESTIMATED BLOOD LOSS: Negligible INTRAOPERATIVE FINDINGS: Normal gastric mucosa, normal esophageal and gastric anatomy PROCEDURE: The procedure was done in the operating room, the patient was placed in a semi- zarate position, MAC anesthesia induced by the anesthesiologist, a mouth device was placed, the abdomen and epigastrium were prepped and draped sterilely. The endoscope was easily inserted to the mouth, the esophagus and the stomach, finger pressure was applied in the left upper quadrant and indentation of the stomach body wall was identified, the area was infiltrated with 1% lidocaine, a #11 blade used to make a wound incision. A number 16-gauge needle with sheath threaded through the skin into the stomach, the needle was removed and the sheath was left, a looped wire was placed through the sheath into the stomach and grasped with a looped wire inserted through the scope, the scope and looped wire were then pulled outside the mouth together with the loop wire inserted through the skin. The looped wire was then tied to the gastrostomy tube and was then pulled from the skin; the gastrostomy tube was gently advanced through the mouth, esophagus, and stomach until resistance was met. The endoscope was reinserted into the mouth and stomach. The mushroom of the gastrostomy tube was found to be flush against the gastric wall. The gastroscope was removed, the gastrostomy tube was cut to length, flange, clip, and cath were placed. The flange was secured to the skin with nylon sutures. Sterile dressings were applied. The patient tolerated procedure well and transferred to recovery room in satisfactory conditions.
[2020-05-26] MEDS ORDERED: ONDANSETRON HCL INJ/PF 4 MG/2 ML SDV ONE (11:33)
[2020-05-26] MEDS ORDERED: PHENYLEPHRINE HCL INJ/PF 10 MG/1 ML SDV ONE (11:33)
[2020-05-26] MEDS ORDERED: LIDOCAINE 2% INJ-PF (20 MG/ML) 2 ML AMPUL ONE (11:33)
[2020-05-26] MEDS ORDERED: HYDROMORPHONE HCL INJ/PF 2 MG/ML AMPULE IV PRN (11:38)
[2020-05-26] MEDS: HYDROMORPHONE HCL INJ/PF 2 MG/ML AMPULE IV PRN ×3 (13:29→20:49)
[2020-05-26] MEDS: PHOSPHORUS #1 250 MG TABLET NG SCH (13:35)
[2020-05-26] MEDS: BUSPIRONE HCL 10 MG TABLET PO SCH (13:40)
[2020-05-26] MEDS: NIFEDIPINE 30 MG TAB.ER.24 PO SCH (13:41)
[2020-05-26] MEDS: CALCIUM CARBONATE 500 MG TAB.CHEW NG SCH ×2 (13:41→17:33)
[2020-05-26] MEDS: ONDANSETRON HCL INJ/PF 4 MG/2 ML SDV IV PRN (15:38)
[2020-05-26] MEDS: DIPHENHYDRAMINE HCL 50 MG/ML VIAL IV PRN (21:19)
[2020-05-27] MEDS: ONDANSETRON HCL INJ/PF 4 MG/2 ML SDV IV PRN (00:15)
[2020-05-27] MEDS: HYDROMORPHONE HCL INJ/PF 2 MG/ML AMPULE IV PRN ×8 (00:15→23:17)
[2020-05-27] MEDS: INSULIN REG, HUMAN 100 UNIT/ML 3 ML VIAL (PYX) SUBCUT SCH ×4 (00:34→18:20)
[2020-05-27] MEDS: PROMETHAZINE HCL INJ 25 MG/1 ML VIAL IV PRN (03:47)
[2020-05-27] MEDS: NORMAL SALINE 1000 ML 1,000 ML IV PRN ×3 (03:47→21:01)
[2020-05-27] MEDS: METOCLOPRAMIDE HCL INJ/PF 10 MG/2 ML SDV IV SCH ×3 (06:11→22:37)
[2020-05-27] MEDS: IPRATROPIUM/ALBUTEROL 0.5-2.5 MG/3 ML AMPUL NEB PRN ×2 (08:15→19:46)
[2020-05-27] MEDS: POTASSIUM CHLORIDE 20 MEQ PACKET NG SCH (09:01)
[2020-05-27] MEDS ORDERED: OXYCODONE HCL IR 5 MG TABLET PEG PRN (09:04)
[2020-05-27] MEDS ORDERED: OXYCODONE-ACETAMINOPHEN 5-325 MG TABLET PEG PRN (09:04)
[2020-05-27] MEDS: NIFEDIPINE 30 MG TAB.ER.24 PO SCH (09:55)
[2020-05-27] MEDS: BUSPIRONE HCL 10 MG TABLET PEG SCH (09:58)
[2020-05-27] MEDS: DIPHENHYDRAMINE HCL 50 MG/ML VIAL IV PRN ×3 (09:58→22:37)
[2020-05-27] MEDS ORDERED: BUSPIRONE HCL 10 MG TABLET NG SCH (10:00)
[2020-05-27] MEDS: CALCIUM CARBONATE 500 MG TAB.CHEW PEG SCH ×2 (10:04→17:34)
[2020-05-27] MEDS: POTASSIUM CHLORIDE 20 MEQ PACKET PEG SCH (10:05)
[2020-05-27 13:01] LABS: ABSOLUTE BASOPHILS # (AUTO) 0.1 10^3/uL (0.0-0.2); ABSOLUTE EOSINOPHILS # (AUTO) 0.2 10^3/uL (0.0-0.6); ABSOLUTE LYMPHOCYTES (AUTO) 1.2 10^3/uL (0.5-4.7); ABSOLUTE NEUT (AUTO) 10.9 10^3/uL (1.7-8.2); BASOPHILS % (AUTO) 0.4 % (0-2); EOSINOPHILS % (AUTO) 1.7 % (0-6); HEMATOCRIT 26.4 % (37.9-51.0); HEMOGLOBIN 8.3 g/dL (13.5-17.0); LYMPHOCYTES % (AUTO) 9.2 % (13-45); MEAN CORPUSCULAR HGB CONC 31.4 g/dL (32.0-36.0); MEAN CORPUSCULAR VOLUME 86 fl (80-97); MONOCYTES % (AUTO) 7.5 % (3-13); PLATELET COUNT 336 10^3/uL (150-450); RED BLOOD COUNT 3.07 10^6/uL (4.35-5.55); RED CELL DISTRIBUTION WIDTH 17.8 % (11.5-14.0); SEGMENTED NEUTROPHILS % (AUTO) 81.2 % (42-78); TOTAL CELLS COUNTED % (AUTO) 100 %; WHITE BLOOD COUNT 13.4 10^3/uL (4.0-10.5)
[2020-05-27 13:08] LABS: ANION GAP 6 (5-19); BLOOD UREA NITROGEN 15 mg/dL (7-20); CALCIUM 8.1 mg/dL (8.4-10.2); CARBON DIOXIDE 27 mmol/L (22-30); CHLORIDE 111 mmol/L (98-107); GLUCOSE 93 mg/dL (75-110); POTASSIUM 4.9 mmol/L (3.6-5.0)
--- NOTE | 2020-05-27 15:21 | PDOC PROGRESS REPORT ---
Subjective Date:: 05/26/20 Subjective:: Per admitting physician: "FREDDIE SENA JR is a 60 year old male, past medical history of type 2 diabetes hypertension CHF narcotic dependence CKD who was recently discharged from [facility] April 19, 2020 after being admitted for 89 days secondary to acute respiratory failure from COVID pneumonia. He was discharged with a tracheostomy tube uncuffed. Before discharge he has been able to speak and eat and the plan was to eventually remove the tracheostomy at [facility]. Sent back to the emergency room for evaluation of shortness of breath. EMS was called by the facility because the patient was diaphoretic with a blood glucose of 30 staff administered 1 mg glucagon in a tube and a half of oral glucose prior to EMS arrival and recheck of blood glucose was 40. Upon EMS arrival patient was pale with diminished breath sounds so he was placed on 15 L O2 via nonrebreather O2 sats went up to 86% and blood glucose was 147 upon ED arrival. In the emergency room he apparently continued to be hypoxic hence a trach cuff was placed and he was put back on mechanical ventilation briefly. He was also noted to be hypotensive hence central line was placed by Dr. Jean-Baptiste. Patient was given IV fluids. Repeat chest x-ray showed improvement of his diffuse bibasilar opacities compared from previous chest x-ray. Dr. Chandler evaluated him in the ED who felt that he does not need ICU admission. He was given 4 L of IV fluids. He was eventually transitioned to tracheal collar and was maintaining his O2 saturation to 95%. Patient was then admitted for further management. WBC count 19.5 in the ED he was given 1 dose of aztreonam and vancomycin." Per Previous Physician: "05/14/2020 MUCOUS PLUGGING, ACUTE HYPOXIC RESPIRATORY FAILURE Patient was seen early on in rounds this morning. At the time patient was noted to sound congested. He however had been suctioned and apparently no further suctioning required at that time. I discussed with the patient the need to be able to give him medications either through an NG tube or PEG tube IV fluids or TPN or combination of all these however patient refused. Patient was new to me today and after discussing with the nurse I did find out that he had been refusing multiple modalities of treatment and management. About 30 minutes after saw this patient when he was still relatively stable a rapid response was called and apparently he went into respiratory distress. He was found to be hypoxic. By the time he got there he was cyanotic. His oxygen saturation was in the 60s also. He was 100% oxygen and his BiPAP setting was changed. Multiple attempts to oxygenate him failed. It was felt that patient will be better served in the intensive care unit. Technician Assistant was informed and Came to assess patient. Patient was transferred to the unit. Please see Dr. Hernández's notes for further details chest x-ray obtained reveals diffuse opacification in the left chest possibly due to extensive infiltrate atelectasis collapse pleural effusion with improved aeration in the right lung base. This is consistent with his lung findings which shows grossly diminished air entry." 05/20/2020 Patient sent out of the ICU yesterday afternoon. Per my discussion with Dr. Chandler, patient has frequent mucous plugging and needs to be lavaged and suctioned by respiratory therapy frequently. It is likely the patient will continue mucous plugging intermittently and may need to be sent back to the ICU at some point. He has been maintained on trach collar with intermittent ventilatory support. Patient was asking for increases in his narcotics and I discussed the risks of respiratory depression if we were to pursue this. We will keep his narcotics at the current dosing and frequency for now. 05/21/2020 Patient had a episode of mucous plugging which resolved with aggressive lavage and suctioning by RT. Patient also had a problem with his NG feeding tube where it was somewhat displaced and nursing replaced this infected follow-up chest x- ray To confirm location. Blood culture on 05/09 remains negative. Latest chest x-ray shows diffuse bilateral disease which could potentially be worse. Patient is calm and resting today and does not have any new complaints. 05/22/2020 Patient appears rather calm today until I entered the room. He then wrote on his marker board and mouthed words to me stating he wants IV narcotics and IV sedatives. I discussed with him that adding these medications could be detrimental to his respiratory status. We will keep his pain medication as it is for now. I believe he is gradually improving as respiratory therapy is doing a great job lavaging and suctioning out large mucous plugs daily. Perhaps if we do enough of this every day, patient will be able to wean from the ventilator and tolerate trach collar alone. 05/23/2020 I had an extensive discussion with the patient today regarding PEG tube placement and he repeatedly stated he wanted to speak to the doctor and I repeatedly told him I am the doctor. I asked him if he would like me to get the surgeon involved to place a PEG tube. He refused to answer me at this point and did not seem interested in any my recommendations. We will ask respiratory therapy if he can get CPT to break up mucous plugs, continue lavaging and suctioning, and continue attempting to wean from the vent. Hemoglobin showed an acute drop down to 6.4 and this was rechecked to reveal 6.9. We will transfuse 1 unit PRBC which may help with his oxygenation as well. Will need to be mindful of the extra volume this will provide and watch for volume overload. Blood cell count is higher while hemoglobin and platelets are lower. Calcium is significantly lower we will replete this both IV and oral. 05/24/2020 Patient is resting comfortably today. He is off IV antibiotics and I have discontinued his IV Benadryl in place of Benadryl capsules that can go through his NG tube. We are still waiting on the patient to decide if he wants a PEG tube to be placed. It is my understanding that he cannot go to an acute care facility for rehab until he has a definitive feeding tube placed and he cannot go to a regular SNF while he is requiring the vent. If the patient wants a PEG tube or if we can wean him from the vent, disposition can move forward. Respiratory therapy will continue to lavage and suction the patient regularly and weaning from the ventilator. I discussed this with nursing. Hemoglobin is higher and potassium is lower today. His chest x-ray looks noticeably improved per my read. 05/25/2020 Patient fully awake and alert today and states repeatedly that he wants a PEG tube placed. He states that his pain after procedures is only well controlled on Dilaudid and I stated I would give him a low-dose of Dilaudid available as needed afterwards. I have consulted general surgery discussed case with Dr. Small who is agreed to consult on the patient. Patient will have his PEG tube placed tomorrow and will be n.p.o. at midnight tonight. Tube feeds will need to be held. We will make sure the patient has adequate pain control afterwards. Case management will need to start aggressively applying the patient for LTAC facilities starting on Wednesday. 05/26/2020 Patient successfully had PEG tube placed. He is having some additional pain I have increased the frequency of his IV Dilaudid. He understands we will begin tapering this tomorrow. Respiratory status is approximately the same as before. He still requiring frequent ventilator support. Latest blood cultures are negative. [facility] the next few days if he is accepted. Reason For Visit: MUCOUS PLUGGING, ACUTE HYPOXIC RESPIRATORY FAILURE Physical Exam Vital Signs: Temp Pulse Resp BP Pulse Ox 97.9 F 97 22 H 103/65 97 05/27/20 11:28 05/27/20 11:28 05/27/20 11:28 05/27/20 11:28 05/27/20 08:16 Intake & Output 05/26/20 05/27/20 05/28/20 06:59 06:59 06:59 Intake Total 2657 2850 1125 Output Total 625 550 Balance 2031 2300 1125 Weight 71.5 kg 73.5 kg Exam: General appearance: PRESENT: no acute distress, frail and chronically ill-appea ring, resting comfortably today, states he needs more pain medication for his PEG tube Head exam: PRESENT: atraumatic, normocephalic Eye exam: PRESENT: conjunctiva pink. ABSENT: scleral icterus Mouth exam: PRESENT: moist Respiratory exam: PRESENT: Very scant rhonchi bilateral, no wheezing; trach co llar in place Cardiovascular exam: PRESENT: RRR. ABSENT: diastolic murmur, rubs, systolic murmur GI/Abdominal exam: PRESENT: normal bowel sounds, soft. PEG tube in place ABSENT: distended, guarding, mass, organolmegaly, rebound, tenderness Neurological exam: PRESENT: alert, awake, oriented to person, oriented to place Psychiatric exam: PRESENT: appropriate affect, normal mood Skin exam: PRESENT: dry, intact, warm Results Laboratory Results: 05/27/20 12:20 05/27/20 12:20 05/27/20 05/27/20 12:20 12:20 WBC 13.4 H RBC 3.07 L Hgb 8.3 L Hct 26.4 L MCV 86 MCH 27.0 MCHC 31.4 L RDW 17.8 H Plt Count 336 Seg Neutrophils % 81.2 H Sodium 143.5 Potassium 4.9 Chloride 111 H Carbon Dioxide 27 Anion Gap 6 BUN 15 Creatinine 0.83 Est GFR ( Amer) > 60 Glucose 93 Calcium 8.1 L 04/20/20 04/23/20 04/23/20 09:00 01:55 01:55 Creatine Kinase < 20 L CK-MB (CK-2) 2.20 Troponin I < 0.012 0.082 NT-Pro-B Natriuret Pep 43847 H 04/23/20 04/23/20 04/23/20 05:58 08:22 14:50 Creatine Kinase < 20 L < 20 L CK-MB (CK-2) 2.24 Troponin I 0.066 NT-Pro-B Natriuret Pep 04/23/20 14:50 Creatine Kinase CK-MB (CK-2) 2.09 Troponin I 0.057 NT-Pro-B Natriuret Pep Impressions: Modified Barium Swallow 04/26/20 00:01 IMPRESSION: LARYNGEAL PENETRATION WITH THIN BARIUM, WITH TRACE ASPIRATION FROM RESIDUALS. PLEASE SEE SPEECH PATHOLOGIST REPORT FOR OTHER FINDINGS AND RECOMMENDATIONS. PICC Line Insertion 05/07/20 00:00 IMPRESSION: SUCCESSFUL PLACEMENT OF A 5 FR DUAL LUMEN 47 CM PICC IN THE LEFT BRACHIOCEPHALIC VEIN. KUB X-Ray 05/16/20 11:57 IMPRESSION: NG tube as described. Findings as described. Chest X-Ray 05/25/20 00:00 IMPRESSION: No improvement in the diffuse opacities likely covid 19. SUPPORT DEVICE(S) IN EXPECTED LOCATIONS. Assessment and Plan - Diagnosis (1) Acute on chronic respiratory failure with hypoxia and hypercapnia Is this a current diagnosis for this admission?: Yes (2) Bilateral pneumonia Qualifiers: Pneumonia type: aspiration pneumonia Lung location: lower lobe of lung Is this a current diagnosis for this admission?: Yes (3) Acute kidney injury superimposed on chronic kidney disease Is this a current diagnosis for this admission?: Yes (4) Acute metabolic encephalopathy Is this a current diagnosis for this admission?: Yes (5) Acute respiratory failure due to severe acute respiratory syndrome coronavirus 2 (SARS-CoV-2) infection Is this a current diagnosis for this admission?: Yes (6) Acute respiratory failure with hypoxia and hypercapnia Is this a current diagnosis for this admission?: Yes (7) Bacteremia due to Enterococcus Is this a current diagnosis for this admission?: Yes (8) Chronically on opiate therapy Is this a current diagnosis for this admission?: Yes (9) COVID-19 Is this a current diagnosis for this admission?: Yes (10) Critical illness polyneuropathy Is this a current diagnosis for this admission?: Yes (11) Diabetes mellitus type 2 in nonobese Is this a current diagnosis for this admission?: Yes (12) Hyperglycemia due to type 2 diabetes mellitus 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: with correction use Qualified Code(s): E11.65 - Type 2 diabetes mellitus with hyperglycemia; Z79.4 - MCFP (current) use of insulin Is this a current diagnosis for this admission?: Yes (13) Hyperlipidemia Qualifiers: Hyperlipidemia type: unspecified Qualified Code(s): E78.5 - Hyperlipidemia, unspecified Is this a current diagnosis for this admission?: Yes (14) Hypertension Is this a current diagnosis for this admission?: Yes (15) Malnutrition Qualifiers: Malnutrition type: protein-calorie malnutrition Protein-calorie malnutrition severity: severe Qualified Code(s): E43 - Unspecified severe protein-calorie malnutrition Is this a current diagnosis for this admission?: Yes (16) Medical non-compliance Is this a current diagnosis for this admission?: Yes (17) Sepsis associated hypotension Is this a current diagnosis for this admission?: Yes (18) Encounter for feeding tube placement Is this a current diagnosis for this admission?: Yes Plan: PEG tube placed on 05/26 - Plan Summary Summary: Per Previous Physician: "Mr. Freddie Sena is a 60-year-old man with HTN, HLD, DM2, CHF and recent prolonged hospitalization for acute respiratory failure secondary to COVID-19 pneumonia s/p tracheostomy placement and discharge to a [facility] facility for continued rehabilitation. He returned to [facility] on 04/20/20 SOB, and was found to have hypoxemia, tachycardia, hypothermia and hypotension. A right femoral line was urgently placed for IV access. " Enterococcus Bacteremia (present on admission) CLABSI and MSSA Bacteremia (diagnosed 05/07/2020) -Per Previous Physician: "Blood cultures drawn on admission were obtained from the R hand and from the R femoral line; one bottle in each set (peripheral and central line) grew Enterococcus faecalis susceptible to penicillin and ampicillin. He was treated with IV vancomycin (in light of a reported penicillin allergy) for approximately 10 days (04/20-04/30). The patient refused repeat blood cultures until 05/07/20, at which time a PICC line was placed. Two sets of blood cultures were obtained - one set from the PICC line and one set from the R femoral line. After obtaining BCx, the R femoral line was removed on 05/07/2020. Both of these sets of BCx from 05/07 grew bacteria. One set grew GPCs in clusters. The other set grew VRE and presumptive MSSA. Therefore, on 05/08/2020, he was started on treatment with ampicillin and vancomycin (review of his chart raised doubt that he had a true IgE mediated penicillin allergy, as he had previously received several courses of cephalosporins). The patient has since been refusing attempts at placing PIV access in order to be able to remove his PICC line and he also refused to allow repeat BCx on 05/08. He finally allowed repeat BCx to be drawn from the PICC on 05/09. ID was consulted on 05/09 for further recommendations, which include: * Enterococcus bacteremia * This potentially represents a recurrence of the previous Enterococcal faecalis bacteremia, but right now it is not possible to definitively say this. The identification and susceptibilities for the organism are pending. The presence of vancomycin resistance for the new isolate could be acquired in the course of the prior treatment. If this is indeed a recurrence, it raises the question of a persistent focus of infection and re-seeding or failure to clear the bloodstream. * obtain TTE * continue ceftriaxone and ampicillin (ampicillin + Rocephin is an effective alternative regimen to the traditional ampicillin + gentamicin) * Depending on whether or not recurrence of E faecalis bacteremia is unexplained and endocarditis is likely, Rocephin could be continued at the 2 g q12h dose or changed if this higher dose is not required. * The previous E faecalis isolate was susceptible to ampicillin. This remains the case for most vancomycin-resistant E faecalis. Follow culture results for identification of the Enterococcus species and susceptibility results. If the patient becomes hemodynamically unstable or toxic before identification/susceptibilities return, daptomycin can be used at approximately 8-10 mg/kg daily in place of the ampicillin. * MSSA bacteremia in the setting of a PICC line * Source unclear: infected line vs bacteremia secondary to pneumonia (aspiration vs tracheitis) * Isolation of organisms from tracheal aspirate (like any non-sterile site) has to be taken into context, and clinically - WBC count has been stable, no new fever - but he has required an increased amount of oxygen from 6L to 10 L in the past 2 days and has had increased RLL infiltrate on CXR. Leah in tracheal aspirate is usually a colonizer. Stenotrophomonas maltophilia can also be a colonizer and, in the setting of other obviously invasive pathogens, targeting therapy to include it is not necessarily warranted as long as the patient is improving with treatment aimed at the M SSA and other interventions to reduce aspiration risk and/or optimize volume status. * The PICC line should be removed. It is not recommended to attempt salvaging a line when there is Staph aureus bacteremia due to the risk for failure and relapse. * Would avoid placing a correction line until blood cultures are known to be negative for at least 48 hours. * obtain TTE * continue Rocephin * Duration of therapy should be, at a minimum, 2 weeks from date of negative blood cultures and removal of PICC line, assuming that no endocarditis is present or metastatic foci of infection. If such is present, duration of treatment should be longer." -Sent back to ICU for respiratory distress and acute respiratory failure on 05/14 -Daptomycin started in ICU until 05/21 Per medical referral coordinator, patient needs to have frequent pulmonary lavage and suctioning to avoid future mucous plugging; respiratory therapy utilizing lavage and suction daily with good results Continues to have mucus plugging intermittently which is relieved by aggressive lavage and suctioning Continue weaning vent daily Acute on chronic respiratory failure with hypoxia and hypercapnia: -Per Previous Physician: "he had an increase in WBC on 05/04- and there was concern for possible aspiration event vs tracheitis vs HAP. CXR was repeated on 05/06 and showed increased opacification in the right lung base. He has remained afebrile, on 6- 10 L O2 over the duration of his hospitalization. He had a tracheal aspirate on 05/05/20 which showed growth of Leah albicans, Stenotrophomonas maltophilia, and MSSA. He is currently on antibiotics and WBC has normalized. He is a high aspiration risk but he is unwilling to stop eating by mouth and refuses a PEG tube." -Frequently requesting to go back on ventilator and reluctant to wean Severe Protein Calorie Malnutrition: -Per Previous Physician: "due to poor PO intake. Unfortunately patient has been having aspiration events and also refusing other modes of nutrition. On 04/26/2020 patient had a modified barium swallow and recommendation was for pured diet with aspiration precautions. PICC placed on 05/07 and TPN was briefly initiated until his BCx resulted, and TPN was thus discontinued (due to ongoing bacteremia)." NG tube with tube feeds running; patient pulled out NG tube partially on 05/21 and this was replaced General surgery consulted on 05/25 for PEG tube placement: Successfully placed PEG tube on 05/26 Plan to have case management apply patient for LTAC placement after PEG tube was placed Tracheostomy in place: -Per Previous Physician: "Continue tracheostomy care. Aggressive pulmonary toileting. Inner cannula is showing evidence of the increased secretions. Because of his insistence on eating PO, he has significantly delaying the possibility of decannulation." Hyperglycemia due to type 2 diabetes mellitus: -Per Previous Physician: "glucose control is reasonable. His intake does vary. He continues to refuse PEG tube placement. This would in fact significantly improve the trajectory of his recovery. This has been suggested multiple times and he adamantly refuses each time. Will need to adjust treatment as his diet changes." Candiduria: -Per Previous Physician: "Urine culture positive for Leah albicans. The patient does have an indwelling Varner catheter which has been exchanged this admission." -colonized bladder Chronic Urinary Retention: -exchange Varner catheter every 4 weeks to prevent CAUTI. Anemia of Chronic Disease: -hemoglobin has been 7-8 since January 2020. Ferritin elevated (not iron deficiency). He has no evidence of active blood loss. Transfused 1 unit PRBC on 05/23 for drop in hemoglobin down to 6.9 Critical illness myopathy: -PT and OT due to the severe deconditioning from his prolonged illness and prolonged hospitalizations. Medical non-adherence: -Per Previous Physician: "he has been requesting food that is not on his recommended diet. He is, at times, a willing participant in the treatment plan but, at other times, lacks insight and has poor judgment. He remains a FULL CODE and does not wish to change his code status, despite ongoing dysphagia, oral intake and high risk for future aspiration episodes. We discussed at length today the risk of morbidity and mortality due to bacteremia, the importance of antibiotics, the importance of removing his PICC line and allowing us to place PIVs, etc. He is bargaining and stating that he will accept certain medications and medical interventions only if he can get IV opioids for treatment of his chronic MSK pain. We agreed that I would change his oral oxycodone dosage to an equivalent IV morphine dosage, but that he can no longer decline these medical interventions and he is agreeable at this time. Discussed with RN." Patient frequently demanding specifically IV formulation narcotics and sedatives Complicated disposition: Patient reportedly unable to go to SNF while utilizing the vent, only option is to wean and eventually stop the ventilator support for him to go back to SNF Patient reportedly unable to go to [facility] due to having NG tube instead of PEG tube. They are able to help patient wean from the ventilator there and he can get appropriate rehab as well. Patient has previously refused PEG tube and he continues to refuse it now - Time Time Spent with patient: 25-34 minutes Medications reviewed and adjusted accordingly: Yes Anticipated Discharge Disposition: Intermediate Care Facility Anticipated Discharge Timeframe: within 48 hours - Inpatient Certification Based on my medical assessment, after consideration of the patient's comorbidities, presenting symptoms, or acuity I expect that the services needed warrant INPATIENT care.: Yes I certify that my determination is in accordance with my understanding of Medicare's requirements for reasonable and necessary INPATIENT services [42 CFR 412.3e].: Yes Medical Necessity: Significant Comorbidiites Make Outpatient Treatment Too Risky, Need Close Monitoring Due to Risk of Patient Decompensation, Need for Nebulizer Therapy and Monitoring of Response, Risk of Complication if Not Cared For in Hospital, Risk of Diagnosis Which Will Require Inpatient Eval/Care/Monitoring
--- NOTE | 2020-05-27 15:27 | PDOC PROGRESS REPORT ---
Subjective Date:: 05/27/20 Reason For Visit: MUCOUS PLUGGING, ACUTE HYPOXIC RESPIRATORY FAILURE Patient sedated Physical Exam Vital Signs: Temp Pulse Resp BP Pulse Ox 97.9 F 97 22 H 103/65 97 05/27/20 11:28 05/27/20 11:28 05/27/20 11:28 05/27/20 11:28 05/27/20 08:16 Intake & Output 05/26/20 05/27/20 05/28/20 06:59 06:59 06:59 Intake Total 2657 2850 1125 Output Total 625 550 Balance 2032 2300 1125 Weight 71.5 kg 73.5 kg General appearance: PRESENT: no acute distress GI/Abdominal exam: PRESENT: other - Soft, nontender no peritoneal signs; tube functioning satisfactorily Results Laboratory Results: 05/27/20 12:20 05/27/20 12:20 05/27/20 05/27/20 12:20 12:20 WBC 13.4 H RBC 3.07 L Hgb 8.3 L Hct 26.4 L MCV 86 MCH 27.0 MCHC 31.4 L RDW 17.8 H Plt Count 336 Seg Neutrophils % 81.2 H Sodium 143.5 Potassium 4.9 Chloride 111 H Carbon Dioxide 27 Anion Gap 6 BUN 15 Creatinine 0.83 Est GFR ( Amer) > 60 Glucose 93 Calcium 8.1 L 04/20/20 04/23/20 04/23/20 09:00 01:55 01:55 Creatine Kinase < 20 L CK-MB (CK-2) 2.20 Troponin I < 0.012 0.082 NT-Pro-B Natriuret Pep 45992 H 04/23/20 04/23/20 04/23/20 05:58 08:22 14:50 Creatine Kinase < 20 L < 20 L CK-MB (CK-2) 2.24 Troponin I 0.066 NT-Pro-B Natriuret Pep 04/23/20 14:50 Creatine Kinase CK-MB (CK-2) 2.09 Troponin I 0.057 NT-Pro-B Natriuret Pep Impressions: Modified Barium Swallow 04/26/20 00:01 IMPRESSION: LARYNGEAL PENETRATION WITH THIN BARIUM, WITH TRACE ASPIRATION FROM RESIDUALS. PLEASE SEE SPEECH PATHOLOGIST REPORT FOR OTHER FINDINGS AND RECOMMENDATIONS. PICC Line Insertion 05/07/20 00:00 IMPRESSION: SUCCESSFUL PLACEMENT OF A 5 FR DUAL LUMEN 47 CM PICC IN THE LEFT BRACHIOCEPHALIC VEIN. KUB X-Ray 05/16/20 11:57 IMPRESSION: NG tube as described. Findings as described. Chest X-Ray 05/25/20 00:00 IMPRESSION: No improvement in the diffuse opacities likely covid 19. SUPPORT DEVICE(S) IN EXPECTED LOCATIONS. Assessment & Plan - Time Anticipated Discharge Disposition: Home with Home Health Anticipated Discharge Timeframe: Be determined Time Spent: 30 to 50 Minutes Smoking Cessation Education: 3 to 10 minutes Medications reviewed and adjusted accordingly: Yes Disposition: Impression: Patient tolerating tube feeds satisfactorily Plan: 1. Advance tube feeds as tolerated 2. Surgery will sign off; reconsult if clinically indicated - Plan Summary Plan Summary: Again try to wean off vent.
--- NOTE | 2020-05-27 15:57 | PDOC PROGRESS REPORT ---
Subjective Subjective:: Per admitting physician: "FREDDIE SENA JR is a 60 year old male, past medical history of type 2 diabetes hypertension CHF narcotic dependence CKD who was recently discharged from [facility] April 19, 2020 after being admitted for 89 days secondary to acute respiratory failure from COVID pneumonia. He was discharged with a tracheostomy tube uncuffed. Before discharge he has been able to speak and eat and the plan was to eventually remove the tracheostomy at [facility]. Sent back to the emergency room for evaluation of shortness of breath. EMS was called by the facility because the patient was diaphoretic with a blood glucose of 30 staff administered 1 mg glucagon in a tube and a half of oral glucose prior to EMS arrival and recheck of blood glucose was 40. Upon EMS arrival patient was pale with diminished breath sounds so he was placed on 15 L O2 via nonrebreather O2 sats went up to 86% and blood glucose was 147 upon ED arrival. In the emergency room he apparently continued to be hypoxic hence a trach cuff was placed and he was put back on mechanical ventilation briefly. He was also noted to be hypotensive hence central line was placed by Dr. Jean-Baptiste. Patient was given IV fluids. Repeat chest x-ray showed improvement of his diffuse bibasilar opacities compared from previous chest x-ray. Dr. Chandler evaluated him in the ED who felt that he does not need ICU admission. He was given 4 L of IV fluids. He was eventually transitioned to tracheal collar and was maintaining his O2 saturation to 95%. Patient was then admitted for further management. WBC count 19.5 in the ED he was given 1 dose of aztreonam and vancomycin." Per Previous Physician: "05/14/2020 MUCOUS PLUGGING, ACUTE HYPOXIC RESPIRATORY FAILURE Patient was seen early on in rounds this morning. At the time patient was noted to sound congested. He however had been suctioned and apparently no further suctioning required at that time. I discussed with the patient the need to be able to give him medications either through an NG tube or PEG tube IV fluids or TPN or combination of all these however patient refused. Patient was new to me today and after discussing with the nurse I did find out that he had been refusing multiple modalities of treatment and management. About 30 minutes after saw this patient when he was still relatively stable a rapid response was called and apparently he went into respiratory distress. He was found to be hypoxic. By the time he got there he was cyanotic. His oxygen saturation was in the 60s also. He was 100% oxygen and his BiPAP setting was changed. Multiple attempts to oxygenate him failed. It was felt that patient will be better served in the intensive care unit. Environmental Consultant was informed and Came to assess patient. Patient was transferred to the unit. Please see Dr. Hernández's notes for further details chest x-ray obtained reveals diffuse opaci fication in the left chest possibly due to extensive infiltrate atelectasis collapse pleural effusion with improved aeration in the right lung base. This is consistent with his lung findings which shows grossly diminished air entry." 05/20/2020 Patient sent out of the ICU yesterday afternoon. Per my discussion with Dr. Chandler, patient has frequent mucous plugging and needs to be lavaged and suc tioned by respiratory therapy frequently. It is likely the patient will continue mucous plugging intermittently and may need to be sent back to the ICU at some point. He has been maintained on trach collar with intermittent ventilatory support. Patient was asking for increases in his narcotics and I discussed the risks of respiratory depression if we were to pursue this. We will keep his narcotics at the current dosing and frequency for now. 05/21/2020 Patient had a episode of mucous plugging which resolved with aggressive lavage and suctioning by RT. Patient also had a problem with his NG feeding tube where it was somewhat displaced and nursing replaced this infected follow-up chest x- ray To confirm location. Blood culture on 05/09 remains negative. Latest chest x-ray shows diffuse bilateral disease which could potentially be worse. Patient is calm and resting today and does not have any new complaints. 05/22/2020 Patient appears rather calm today until I entered the room. He then wrote on his marker board and mouthed words to me stating he wants IV narcotics and IV sedatives. I discussed with him that adding these medications could be detrimental to his respiratory status. We will keep his pain medication as it is for now. I believe he is gradually improving as respiratory therapy is doing a great job lavaging and suctioning out large mucous plugs daily. Perhaps if we do enough of this every day, patient will be able to wean from the ventilator and tolerate trach collar alone. 05/23/2020 I had an extensive discussion with the patient today regarding PEG tube placement and he repeatedly stated he wanted to speak to the doctor and I repeatedly told him I am the doctor. I asked him if he would like me to get the surgeon involved to place a PEG tube. He refused to answer me at this point and did not seem interested in any my recommendations. We will ask respiratory therapy if he can get CPT to break up mucous plugs, continue lavaging and suctioning, and continue attempting to wean from the vent. Hemoglobin showed an acute drop down to 6.4 and this was rechecked to reveal 6.9. We will transfuse 1 unit PRBC which may help with his oxygenation as well. Will need to be mindful of the extra volume this will provide and watch for volume overload. Blood cell count is higher while hemoglobin and platelets are lower. Calcium is significantly lower we will replete this both IV and oral. 05/24/2020 Patient is resting comfortably today. He is off IV antibiotics and I have discontinued his IV Benadryl in place of Benadryl capsules that can go through his NG tube. We are still waiting on the patient to decide if he wants a PEG tube to be placed. It is my understanding that he cannot go to an acute care facility for rehab until he has a definitive feeding tube placed and he cannot go to a regular SNF while he is requiring the vent. If the patient wants a PEG tube or if we can wean him from the vent, disposition can move forward. Respira tory therapy will continue to lavage and suction the patient regularly and weaning from the ventilator. I discussed this with nursing. Hemoglobin is higher and potassium is lower today. His chest x-ray looks noticeably improved per my read. 05/25/2020 Patient fully awake and alert today and states repeatedly that he wants a PEG tube placed. He states that his pain after procedures is only well controlled on Dilaudid and I stated I would give him a low-dose of Dilaudid available as needed afterwards. I have consulted general surgery discussed case with Dr. Small who is agreed to consult on the patient. Patient will have his PEG tube placed tomorrow and will be n.p.o. at midnight tonight. Tube feeds will need to be held. We will make sure the patient has adequate pain control afterwards. Case management will need to start aggressively applying the patient for LTAC facilities starting on Wednesday. 05/26/2020 Patient successfully had PEG tube placed. He is having some additional pain I have increased the frequency of his IV Dilaudid. He understands we will begin tapering this tomorrow. Respiratory status is approximately the same as before. He still requiring frequent ventilator support. Latest blood cultures are negative. Plan is for patient to go to [facility] in the next few days if he is accepted. 05/27/2020 Patient states his pain is well controlled and he would like to start transitioning from IV narcotics to oral narcotics in anticipation of going to LTAC. I have switched his Dilaudid to oral I will leave a smaller dose available for breakthrough pain. Patient states he is motivated to perform more aggressive rehab and he knows that this cannot be accomplished inpatient. Patient's breathing is about the same as it was yesterday. Patient still requiring ventilator support. Reason For Visit: MUCOUS PLUGGING, ACUTE HYPOXIC RESPIRATORY FAILURE Physical Exam Vital Signs: Temp Pulse Resp BP Pulse Ox 97.9 F 97 22 H 103/65 97 05/27/20 11:28 05/27/20 11:28 05/27/20 11:28 05/27/20 11:28 05/27/20 08:16 Intake & Output 05/26/20 05/27/20 05/28/20 06:59 06:59 06:59 Intake Total 2657 2850 1125 Output Total 625 550 Balance 2 2300 1125 Weight 71.5 kg 73.5 kg Exam: General appearance: PRESENT: no acute distress, frail and chronically ill- appearing, resting comfortably today, states his pain is well controlled today and he would like to switch to oral pain meds Head exam: PRESENT: atraumatic, normocephalic Eye exam: PRESENT: conjunctiva pink. ABSENT: scleral icterus Mouth exam: PRESENT: moist Respiratory exam: PRESENT: Very scant rhonchi bilateral, no wheezing; trach collar in place Cardiovascular exam: PRESENT: RRR. ABSENT: diastolic murmur, rubs, systolic murmur GI/Abdominal exam: PRESENT: normal bowel sounds, soft. PEG tube in place ABSENT: distended, guarding, mass, organolmegaly, rebound, tenderness Neurological exam: PRESENT: alert, awake, oriented to person, oriented to place Psychiatric exam: PRESENT: appropriate affect, normal mood Skin exam: PRESENT: dry, intact, warm Results Laboratory Results: 05/27/20 12:20 05/27/20 12:20 05/27/20 05/27/20 12:20 12:20 WBC 13.4 H RBC 3.07 L Hgb 8.3 L Hct 26.4 L MCV 86 MCH 27.0 MCHC 31.4 L RDW 17.8 H Plt Count 336 Seg Neutrophils % 81.2 H Sodium 143.5 Potassium 4.9 Chloride 111 H Carbon Dioxide 27 Anion Gap 6 BUN 15 Creatinine 0.83 Est GFR ( Amer) > 60 Glucose 93 Calcium 8.1 L 04/20/20 04/23/20 04/23/20 09:00 01:55 01:55 Creatine Kinase < 20 L CK-MB (CK-2) 2.20 Troponin I < 0.012 0.082 NT-Pro-B Natriuret Pep 17080 H 04/23/20 04/23/20 04/23/20 05:58 08:22 14:50 Creatine Kinase < 20 L < 20 L CK-MB (CK-2) 2.24 Troponin I 0.066 NT-Pro-B Natriuret Pep 04/23/20 14:50 Creatine Kinase CK-MB (CK-2) 2.09 Troponin I 0.057 NT-Pro-B Natriuret Pep Impressions: Modified Barium Swallow 04/26/20 00:01 IMPRESSION: LARYNGEAL PENETRATION WITH THIN BARIUM, WITH TRACE ASPIRATION FROM RESIDUALS. PLEASE SEE SPEECH PATHOLOGIST REPORT FOR OTHER FINDINGS AND RECOMMENDATIONS. PICC Line Insertion 05/07/20 00:00 IMPRESSION: SUCCESSFUL PLACEMENT OF A 5 FR DUAL LUMEN 47 CM PICC IN THE LEFT BRACHIOCEPHALIC VEIN. KUB X-Ray 05/16/20 11:57 IMPRESSION: NG tube as described. Findings as described. Chest X-Ray 05/25/20 00:00 IMPRESSION: No improvement in the diffuse opacities likely covid 19. SUPPORT DEVICE(S) IN EXPECTED LOCATIONS. Assessment and Plan - Diagnosis (1) Acute on chronic respiratory failure with hypoxia and hypercapnia Is this a current diagnosis for this admission?: Yes (2) Bilateral pneumonia Qualifiers: Pneumonia type: aspiration pneumonia Lung location: lower lobe of lung Is this a current diagnosis for this admission?: Yes (3) Acute kidney injury superimposed on chronic kidney disease Is this a current diagnosis for this admission?: Yes (4) Acute metabolic encephalopathy Is this a current diagnosis for this admission?: Yes (5) Acute respiratory failure due to severe acute respiratory syndrome coronavirus 2 (SARS-CoV-2) infection Is this a current diagnosis for this admission?: Yes (6) Acute respiratory failure with hypoxia and hypercapnia Is this a current diagnosis for this admission?: Yes (7) Bacteremia due to Enterococcus Is this a current diagnosis for this admission?: Yes (8) Chronically on opiate therapy Is this a current diagnosis for this admission?: Yes (9) COVID-19 Is this a current diagnosis for this admission?: Yes (10) Critical illness polyneuropathy Is this a current diagnosis for this admission?: Yes (11) Diabetes mellitus type 2 in nonobese Is this a current diagnosis for this admission?: Yes (12) Hyperglycemia due to type 2 diabetes mellitus Qualifiers: Diabetes mellitus usp insulin use: with superintendent container terminal use Qualified Code(s): E11.65 - Type 2 diabetes mellitus with hyperglycemia; Z79.4 - intermodal customer service (current) use of insulin Is this a current diagnosis for this admission?: Yes (13) Hyperlipidemia Qualifiers: Hyperlipidemia type: unspecified Qualified Code(s): E78.5 - Hyperlipidemia, unspecified Is this a current diagnosis for this admission?: Yes (14) Hypertension Is this a current diagnosis for this admission?: Yes (15) Malnutrition Qualifiers: Malnutrition type: protein-calorie malnutrition Protein-calorie malnutrition severity: severe Qualified Code(s): E43 - Unspecified severe protein-calorie malnutrition Is this a current diagnosis for this admission?: Yes (16) Medical non-compliance Is this a current diagnosis for this admission?: Yes (17) Sepsis associated hypotension Is this a current diagnosis for this admission?: Yes (18) Encounter for feeding tube placement Is this a current diagnosis for this admission?: Yes - Plan Summary Summary: Per Previous Physician: "Mr. Freddie Sena is a 60-year-old man with HTN, HLD, DM2, CHF and recent prolonged hospitalization for acute respiratory failure secondary to COVID-19 pneumonia s/p tracheostomy placement and [place] [facility] for continued [facility]. He returned to [facility] on 04/20/20 SOB, and was found to have hypoxemia, tachycardia, hypothermia and hypotension. A right femoral line was urgently placed for IV access. " Enterococcus Bacteremia (present on admission) CLABSI and MSSA Bacteremia (diagnosed 05/07/2020) -Per Previous Physician: "Blood cultures drawn on admission were obtained from the R hand and from the R femoral line; one bottle in each set (peripheral and central line) grew E nterococcus faecalis susceptible to penicillin and ampicillin. He was treated with IV vancomycin (in light of a reported penicillin allergy) for approximately 10 days (04/20-04/30). The patient refused repeat blood cultures until 05/07/20, at which time a PICC line was placed. Two sets of blood cultures were obtained - one set from the PICC line and one set from the R femoral line. After obtaining BCx, the R femoral line was removed on 05/07/2020. Both of these sets of BCx from 05/07 grew bacteria. One set grew GPCs in clusters. The other set grew VRE and presumptive MSSA. Therefore, on 05/08/2020, he was started on treatment with ampicillin and vancomycin (review of his chart raised doubt that he had a true IgE mediated penicillin allergy, as he had previously received several courses of cephalosporins). The patient has since been refusing attempts at placing PIV access in order to be able to remove his PICC line and he also refused to allow repeat BCx on 05/08. He finally allowed repeat BCx to be drawn from the PICC on 05/09. ID was consulted on 05/09 for further recommendations, which include: * Enterococcus bacteremia * This potentially represents a recurrence of the previous Enterococcal faecalis bacteremia, but right now it is not possible to definitively say this. The identification and susceptibilities for the organism are pending. The presence of vancomycin resistance for the new isolate could be acquired in the course of the prior treatment. If this is indeed a recurrence, it raises the question of a persistent focus of infection and re-seeding or failure to clear the bloodstream. * obtain TTE * continue ceftriaxone and ampicillin (ampicillin + Rocephin is an effective alternative regimen to the traditional ampicillin + gentamicin) * Depending on whether or not recurrence of E faecalis bacteremia is unexplained and endocarditis is likely, Rocephin could be continued at the 2 g q12h dose or changed if this higher dose is not required. * The previous E faecalis isolate was susceptible to ampicillin. This remains the case for most vancomycin-resistant E faecalis. Follow culture results for identification of the Enterococcus species and susceptibility results. If the patient becomes hemodynamically unstable or toxic before identification/susceptibilities return, daptomycin can be used at approximately 8-10 mg/kg daily in place of the ampicillin. * MSSA bacteremia in the setting of a PICC line * Source unclear: infected line vs bacteremia secondary to pneumonia (aspiration vs tracheitis) * Isolation of organisms from tracheal aspirate (like any non-sterile site) has to be taken into context, and clinically - WBC count has been stable, no new fever - but he has required an increased amount of oxygen from 6L to 10 L in the past 2 days and has had increased RLL infiltrate on CXR. Leah in tracheal aspirate is usually a colonizer. Stenotrophomonas maltophilia can also be a colonizer and, in the setting of other obviously invasive pathogens, targeting therapy to include it is not necessarily warranted as long as the patient is improving with treatment aimed at the MSSA and other interventions to reduce aspiration risk and/or optimize volume status. * The PICC line should be removed. It is not recommended to attempt salvaging a line when there is Staph aureus bacteremia due to the risk for failure and relapse. * Would avoid placing a superintendent container terminal line until blood cultures are known to be negative for at least 48 hours. * obtain TTE * continue Rocephin * Duration of therapy should be, at a minimum, 2 weeks from date of negative blood cultures and removal of PICC line, assuming that no endocarditis is present or metastatic foci of infection. If such is present, duration of treatment should be longer." -Sent back to ICU for respiratory distress and acute respiratory failure on 05/14 -Daptomycin started in ICU until 05/21 Per perforator, patient needs to have frequent pulmonary lavage and suctioning to avoid future mucous plugging; respiratory therapy utilizing lavage and suction daily with good results Continues to have mucus plugging intermittently which is relieved by aggressive lavage and suctioning Continue weaning vent daily Acute on chronic respiratory failure with hypoxia and hypercapnia: -Per Previous Physician: "he had an increase in WBC on 05/04- and there was concern for possible aspiration event vs tracheitis vs HAP. CXR was repeated on 05/06 and showed increased opacification in the right lung base. He has remained afebrile, on 6- 10 L O2 over the duration of his hospitalization. He had a tracheal aspirate on 05/05/20 which showed growth of Leah albicans, Stenotrophomonas maltophilia, and MSSA. He is currently on antibiotics and WBC has normalized. He is a high as piration risk but he is unwilling to stop eating by mouth and refuses a PEG tube." -Frequently requesting to go back on ventilator and reluctant to wean Severe Protein Calorie Malnutrition: -Per Previous Physician: "due to poor PO intake. Unfortunately patient has been having aspiration events and also refusing other modes of nutrition. On 04/26/2020 patient had a modified barium swallow and recommendation was for pured diet with aspiration precautions. PICC placed on 05/07 and TPN was briefly initiated until his BCx resulted, and TPN was thus discontinued (due to ongoing bacteremia)." NG tube with tube feeds running; patient pulled out NG tube partially on 05/21 a nd this was replaced General surgery consulted on 05/25 for PEG tube placement: Successfully placed PEG tube on 05/26 Plan to have case management apply patient for LTAC placement after PEG tube was placed Patient can be discharged to LTAC when he is accepted Tracheostomy in place: -Per Previous Physician: "Continue tracheostomy care. Aggressive pulmonary toileting. Inner cannula is showing evidence of the increased secretions. Because of his insistence on eating PO, he has significantly delaying the possibility of decannulation." Hyperglycemia due to type 2 diabetes mellitus: -Per Previous Physician: "glucose control is reasonable. His intake does vary. He continues to refuse PEG tube placement. This would in fact significantly improve the trajectory of his recovery. This has been suggested multiple times and he adamantly refuses each time. Will need to adjust treatment as his diet changes." Candiduria: -Per Previous Physician: "Urine culture positive for Leah albicans. The patient does have an indw elling Varner catheter which has been exchanged this admission." -colonized bladder Chronic Urinary Retention: -exchange Varner catheter every 4 weeks to prevent CAUTI. Anemia of Chronic Disease: -hemoglobin has been 7-8 since January 2020. Ferritin elevated (not iron deficiency). He has no evidence of active blood loss. Transfused 1 unit PRBC on 05/23 for drop in hemoglobin down to 6.9 Critical illness myopathy: -PT and OT due to the severe deconditioning from his prolonged illness and prolonged hospitalizations. Medical non-adherence: -Per Previous Physician: "he has been requesting food that is not on his recommended diet. He is, at times, a willing participant in the treatment plan but, at other times, lacks insight and has poor judgment. He remains a FULL CODE and does not wish to change his code status, despite ongoing dysphagia, oral intake and high risk for future aspiration episodes. We discussed at length today the risk of morbidity and mortality due to bacteremia, the importance of antibiotics, the importance of removing his PICC line and allowing us to place PIVs, etc. He is bargaining and stating that he will accept certain medications and medical interventions only if he can get IV opioids for treatment of his chronic MSK pain. We agreed that I would change his oral oxycodone dosage to an equivalent IV morphine dosage, but that he can no longer decline these medical interventions and he is agreeable at this time. Discussed with RN." Patient frequently demanding specifically IV formulation narcotics and sedatives Complicated disposition: Patient reportedly unable to go to SNF while utilizing the vent, only option is to wean and eventually stop the ventilator support for him to go back to SNF Patient reportedly unable to go to [facility] due to having NG tube instead of PEG tube. They are able to help patient wean from the ventilator there and he can get appropriate rehab as well. Patient has previously refused PEG tube and he continues to refuse it now - Time Time Spent with patient: 25-34 minutes Medications reviewed and adjusted accordingly: Yes Anticipated Discharge Disposition: Intermediate Care Facility Anticipated Discharge Timeframe: within 24 hours - Inpatient Certification Based on my medical assessment, after consideration of the patient's comorbidities, presenting symptoms, or acuity I expect that the services needed warrant INPATIENT care.: Yes I certify that my determination is in accordance with my understanding of Medicare's requirements for reasonable and necessary INPATIENT services [42 CFR 412.3e].: Yes Medical Necessity: Significant Comorbidiites Make Outpatient Treatment Too Ri rona, Need Close Monitoring Due to Risk of Patient Decompensation, Need for Nebulizer Therapy and Monitoring of Response, Risk of Complication if Not Cared For in Hospital, Risk of Diagnosis Which Will Require Inpatient Eval/Care/Monitoring
[2020-05-27] MEDS: HYDROMORPHONE HCL 2 MG TABLET PEG PRN (17:34)
[2020-05-28] MEDS: HYDROMORPHONE HCL INJ/PF 2 MG/ML AMPULE IV PRN ×6 (02:26→23:41)
[2020-05-28] MEDS: INSULIN REG, HUMAN 100 UNIT/ML 3 ML VIAL (PYX) SUBCUT SCH ×2 (02:32→19:56)
[2020-05-28] MEDS: IPRATROPIUM/ALBUTEROL 0.5-2.5 MG/3 ML AMPUL NEB PRN ×3 (02:34→22:16)
[2020-05-28 06:13] LABS: ABSOLUTE EOSINOPHILS # (AUTO) 0.3 10^3/uL (0.0-0.6); ABSOLUTE LYMPHOCYTES (AUTO) 1.1 10^3/uL (0.5-4.7); ABSOLUTE MONOCYTES (AUTO) 1.2 10^3/uL (0.1-1.4); ABSOLUTE NEUT (AUTO) 10.9 10^3/uL (1.7-8.2); BASOPHILS % (AUTO) 0.2 % (0-2); EOSINOPHILS % (AUTO) 1.9 % (0-6); HEMATOCRIT 25.8 % (37.9-51.0); HEMOGLOBIN 8.3 g/dL (13.5-17.0); LYMPHOCYTES % (AUTO) 8.3 % (13-45); MEAN CORPUSCULAR HEMOGLOBIN 27.8 pg (27.0-33.4); MEAN CORPUSCULAR HGB CONC 32.1 g/dL (32.0-36.0); MEAN CORPUSCULAR VOLUME 87 fl (80-97); MONOCYTES % (AUTO) 8.8 % (3-13); PLATELET COUNT 370 10^3/uL (150-450); RED BLOOD COUNT 2.98 10^6/uL (4.35-5.55); RED CELL DISTRIBUTION WIDTH 17.9 % (11.5-14.0); SEGMENTED NEUTROPHILS % (AUTO) 80.8 % (42-78); TOTAL CELLS COUNTED % (AUTO) 100 %; WHITE BLOOD COUNT 13.5 10^3/uL (4.0-10.5)
[2020-05-28 06:17] LABS: ANION GAP 8 (5-19); BLOOD UREA NITROGEN 14 mg/dL (7-20); CALCIUM 7.9 mg/dL (8.4-10.2); CARBON DIOXIDE 26 mmol/L (22-30); CHLORIDE 110 mmol/L (98-107); GLUCOSE 89 mg/dL (75-110); POTASSIUM 4.2 mmol/L (3.6-5.0)
[2020-05-28] MEDS: DIPHENHYDRAMINE HCL 50 MG/ML VIAL IV PRN ×2 (10:48→20:08)
[2020-05-28] MEDS: BUSPIRONE HCL 10 MG TABLET PEG SCH (10:49)
[2020-05-28] MEDS: NIFEDIPINE 30 MG TAB.ER.24 PO SCH (10:49)
[2020-05-28] MEDS: HYDROMORPHONE HCL 2 MG TABLET PEG PRN (10:49)
[2020-05-28] MEDS: CALCIUM CARBONATE 500 MG TAB.CHEW PEG SCH ×2 (10:50→19:58)
[2020-05-28] MEDS: METOCLOPRAMIDE HCL INJ/PF 10 MG/2 ML SDV IV SCH ×2 (14:00→23:52)
[2020-05-28] MEDS: ONDANSETRON HCL INJ/PF 4 MG/2 ML SDV IV PRN (14:23)
--- NOTE | 2020-05-28 21:26 | PDOC PROGRESS REPORT ---
Subjective Date:: 05/28/20 Subjective:: er admitting physician: "FREDDIE LAZO JR is a 60 year old male, past medical history of type 2 diabetes hypertension CHF narcotic dependence CKD who was recently discharged from [facility] April 19, 2020 after being admitted for 89 days secondary to acute respiratory failure from COVID pneumonia. He was discharged with a tracheostomy tube uncuffed. Before discharge he has been able to speak and eat and the plan was to eventually remove the tracheostomy at [facility]. Sent back to the emergency room for evaluation of shortness of breath. EMS was called by the facility because the patient was diaphoretic with a blood glucose of 30 staff administered 1 mg glucagon in a tube and a half of oral glucose prior to EMS arrival and recheck of blood glucose was 40. Upon EMS arrival patient was pale with diminished breath sounds so he was placed on 15 L O2 via nonrebreather O2 sats went up to 86% and blood glucose was 147 upon ED arrival. In the emergency room he apparently continued to be hypoxic hence a trach cuff was placed and he was put back on mechanical ventilation briefly. He was also noted to be hypotensive hence central line was placed by Dr. Jean-Baptiste. Patient was given IV fluids. Repeat chest x-ray showed improvement of his diffuse bibasilar opacities compared from previous chest x-ray. Dr. Chandler evaluated him in the ED who felt that he does not need ICU admission. He was given 4 L of IV fluids. He was eventually transitioned to tracheal collar and was maintaining his O2 saturation to 95%. Patient was then admitted for further management. WBC count 19.5 in the ED he was given 1 dose of aztreonam and vancomycin." Per Previous Physician: "05/14/2020 MUCOUS PLUGGING, ACUTE HYPOXIC RESPIRATORY FAILURE Patient was seen early on in rounds this morning. At the time patient was noted to sound congested. He however had been suctioned and apparently no further suctioning required at that time. I discussed with the patient the need to be able to give him medications either through an NG tube or PEG tube IV fluids or TPN or combination of all these however patient refused. Patient was new to me today and after discussing with the nurse I did find out that he had been refusing multiple modalities of treatment and management. About 30 minutes after saw this patient when he was still relatively stable a rapid response was called and apparently he went into respiratory distress. He was found to be hypoxic. By the time he got there he was cyanotic. His oxygen saturation was in the 60s also. He was 100% oxygen and his BiPAP setting was changed. Multiple attempts to oxygenate him failed. It was felt that patient will be better served in the intensive care unit. Grubber was informed and Came to assess patient. Patient was transferred to the unit. Please see Dr. Hernández's notes for further details chest x-ray obtained reveals diffuse opacification in the left chest possibly due to extensive infiltrate atelectasis collapse pleural effusion with improved aeration in the right lung base. This is consistent with his lung findings which shows grossly diminished air entry." 05/20/2020 Patient sent out of the ICU yesterday afternoon. Per my discussion with Dr. Chandler, patient has frequent mucous plugging and needs to be lavaged and suctioned by respiratory therapy frequently. It is likely the patient will continue mucous plugging intermittently and may need to be sent back to the ICU at some point. He has been maintained on trach collar with intermittent ventilatory support. Patient was asking for increases in his narcotics and I discussed the risks of respiratory depression if we were to pursue this. We will keep his narcotics at the current dosing and frequency for now. 05/21/2020 Patient had a episode of mucous plugging which resolved with aggressive lavage and suctioning by RT. Patient also had a problem with his NG feeding tube where it was somewhat displaced and nursing replaced this infected follow-up chest x- ray To confirm location. Blood culture on 05/09 remains negative. Latest chest x-ray shows diffuse bilateral disease which could potentially be worse. Patient is calm and resting today and does not have any new complaints. 05/22/2020 Patient appears rather calm today until I entered the room. He then wrote on his marker board and mouthed words to me stating he wants IV narcotics and IV sedatives. I discussed with him that adding these medications could be detrimental to his respiratory status. We will keep his pain medication as it is for now. I believe he is gradually improving as respiratory therapy is doing a great job lavaging and suctioning out large mucous plugs daily. Perhaps if we do enough of this every day, patient will be able to wean from the ventilator and tolerate trach collar alone. 05/23/2020 I had an extensive discussion with the patient today regarding PEG tube placement and he repeatedly stated he wanted to speak to the doctor and I repeatedly told him I am the doctor. I asked him if he would like me to get the surgeon involved to place a PEG tube. He refused to answer me at this point and did not seem interested in any my recommendations. We will ask respiratory therapy if he can get CPT to break up mucous plugs, continue lavaging and suctioning, and continue attempting to wean from the vent. Hemoglobin showed an acute drop down to 6.4 and this was rechecked to reveal 6.9. We will transfuse 1 unit PRBC which may help with his oxygenation as well. Will need to be mindful of the extra volume this will provide and watch for volume overload. Blood cell count is higher while hemoglobin and platelets are lower. Calcium is significantly lower we will replete this both IV and oral. 05/24/2020 Patient is resting comfortably today. He is off IV antibiotics and I have discontinued his IV Benadryl in place of Benadryl capsules that can go through his NG tube. We are still waiting on the patient to decide if he wants a PEG tube to be placed. It is my understanding that he cannot go to an acute care facility for rehab until he has a definitive feeding tube placed and he cannot go to a regular SNF while he is requiring the vent. If the patient wants a PEG tube or if we can wean him from the vent, disposition can move forward. Respiratory therapy will continue to lavage and suction the patient regularly and weaning from the ventilator. I discussed this with nursing. Hemoglobin is higher and potassium is lower today. His chest x-ray looks noticeably improved per my read. 05/25/2020 Patient fully awake and alert today and states repeatedly that he wants a PEG tube placed. He states that his pain after procedures is only well controlled on Dilaudid and I stated I would give him a low-dose of Dilaudid available as needed afterwards. I have consulted general surgery discussed case with Dr. Small who is agreed to consult on the patient. Patient will have his PEG tube placed tomorrow and will be n.p.o. at midnight tonight. Tube feeds will need to be held. We will make sure the patient has adequate pain control afterwards. Case management will need to start aggressively applying the patient for LTAC facilities starting on Wednesday. 05/26/2020 Patient successfully had PEG tube placed. He is having some additional pain I have increased the frequency of his IV Dilaudid. He understands we will begin tapering this tomorrow. Respiratory status is approximately the same as before. He still requiring frequent ventilator support. Latest blood cultures are negative. Plan is for patient to go to [facility] in the next few days if he is accepted. 05/27/2020 Patient states his pain is well controlled and he would like to start transitioning from IV narcotics to oral narcotics in anticipation of going to LTAC. I have switched his Dilaudid to oral I will leave a smaller dose available for breakthrough pain. Patient states he is motivated to perform more aggressive rehab and he knows that this cannot be accomplished inpatient. Patient's breathing is about the same as it was yesterday. Patient still requiring ventilator support. 05/28/20 Patient was seen and examined at bedside. Complains of pain lower abdomen however physical exam not consistent with the amount of pain he is complaining of. He is also requesting for more IV pain medications. He is status post PEG tube placement postop day 1 currently tolerating tube feedings. No significant change on his pulmonary status. Reason For Visit: MUCOUS PLUGGING, ACUTE HYPOXIC RESPIRATORY FAILURE Physical Exam Vital Signs: Temp Pulse Resp BP Pulse Ox 97.8 F 99 20 94/62 L 96 05/28/20 15:45 05/28/20 15:45 05/28/20 15:45 05/28/20 15:45 05/28/20 16:00 Intake & Output 05/27/20 05/28/20 05/29/20 06:59 06:59 06:59 Intake Total 2850 2850 375 Output Total 550 600 Balance 2300 2250 375 Weight 73.5 kg 71.9 kg General appearance: PRESENT: no acute distress, cooperative Head exam: PRESENT: atraumatic, normocephalic Eye exam: PRESENT: EOMI, PERRLA Mouth exam: PRESENT: moist Neck exam: PRESENT: full ROM. ABSENT: JVD Respiratory exam: PRESENT: crackles, rales, symmetrical, unlabored Cardiovascular exam: PRESENT: RRR, +S1, +S2 Pulses: PRESENT: +2 pedal pulses bilateral GI/Abdominal exam: PRESENT: normal bowel sounds, soft, other - PEG tube noted in place. ABSENT: rebound, tenderness Neurological exam: PRESENT: alert, awake Psychiatric exam: PRESENT: normal mood Results Laboratory Results: 05/28/20 04:00 05/28/20 04:00 05/28/20 05/28/20 04:00 04:00 WBC 13.5 H RBC 2.98 L Hgb 8.3 L Hct 25.8 L MCV 87 MCH 27.8 MCHC 32.1 RDW 17.9 H Plt Count 370 Seg Neutrophils % 80.8 H Sodium 143.6 Potassium 4.2 Chloride 110 H Carbon Dioxide 26 Anion Gap 8 BUN 14 Creatinine 0.75 Est GFR ( Amer) > 60 Glucose 89 Calcium 7.9 L 04/20/20 04/23/20 04/23/20 09:00 01:55 01:55 Creatine Kinase < 20 L CK-MB (CK-2) 2.20 Troponin I < 0.012 0.082 NT-Pro-B Natriuret Pep 41156 H 04/23/20 04/23/20 04/23/20 05:58 08:22 14:50 Creatine Kinase < 20 L < 20 L CK-MB (CK-2) 2.24 Troponin I 0.066 NT-Pro-B Natriuret Pep 04/23/20 14:50 Creatine Kinase CK-MB (CK-2) 2.09 Troponin I 0.057 NT-Pro-B Natriuret Pep Impressions: Modified Barium Swallow 04/26/20 00:01 IMPRESSION: LARYNGEAL PENETRATION WITH THIN BARIUM, WITH TRACE ASPIRATION FROM RESIDUALS. PLEASE SEE SPEECH PATHOLOGIST REPORT FOR OTHER FINDINGS AND RECOMMENDATIONS. PICC Line Insertion 05/07/20 00:00 IMPRESSION: SUCCESSFUL PLACEMENT OF A 5 FR DUAL LUMEN 47 CM PICC IN THE LEFT BRACHIOCEPHALIC VEIN. KUB X-Ray 05/16/20 11:57 IMPRESSION: NG tube as described. Findings as described. Chest X-Ray 05/25/20 00:00 IMPRESSION: No improvement in the diffuse opacities likely covid 19. SUPPORT DEVICE(S) IN EXPECTED LOCATIONS. Assessment and Plan - Diagnosis (1) Respiratory failure, [id number] Qualifiers: Respiratory failure complication: hypoxia Is this a current diagnosis for this admission?: Yes Plan: -Has a trach and intermittently on mechanical ventilation and trach collar intermittently -We will need LTAC placement (2) Leukocytosis Qualifiers: Leukocytosis type: unspecified Qualified Code(s): D72.829 - Elevated white blood cell count, unspecified Is this a current diagnosis for this admission?: Yes Plan: -- WBC 13.5 - has completed multiple courses of abx - afebrile - will CTM. (3) COVID-19 Is this a current diagnosis for this admission?: Yes Plan: -resolved but patient has suffered significant co morbidity from it - no indication to retest - continue vent support (4) Critical illness myopathy Is this a current diagnosis for this admission?: Yes Plan: -2/2 ICU and prolonged hospital stay - would need extensive rehab given that he has already been in the hospital for 3 months or more (5) Dysphagia Qualifiers: Dysphagia type: oropharyngeal phase Qualified Code(s): R13.12 - Dysphagia, oropharyngeal phase Is this a current diagnosis for this admission?: Yes Plan: - has finally agreed fro PEG tube - currently receiving feeding via PEG (6) Bacteremia due to Enterococcus Is this a current diagnosis for this admission?: Yes Plan: - completed antibiotics treatment (7) MSSA bacteremia Is this a current diagnosis for this admission?: Yes Plan: completed treatment (8) Hyperglycemia due to type 2 diabetes mellitus Qualifiers: Diabetes mellitus group home insulin use: with group home use Qualified Code(s): E11.65 - Type 2 diabetes mellitus with hyperglycemia; Z79.4 - jail (current) use of insulin Is this a current diagnosis for this admission?: Yes Plan: - currently on scheduled insulin (9) Acute kidney injury superimposed on chronic kidney disease Is this a current diagnosis for this admission?: Yes Plan: - crea stable (10) Acute metabolic encephalopathy Is this a current diagnosis for this admission?: Yes Plan: Resolved (11) Chronic pain Qualifiers: Chronic pain type: other chronic pain Qualified Code(s): G89.29 - Other chronic pain Is this a current diagnosis for this admission?: Yes Plan: On p.o. Dilaudid and as needed IV Dilaudid for severe pain -We will not give her more narcotics (12) Debility Is this a current diagnosis for this admission?: Yes Plan: Needs LTAC placement (13) Dependent on ventilator Is this a current diagnosis for this admission?: Yes - Time Time Spent with patient: 25-34 minutes Anticipated Discharge Disposition[facility] Anticipated Discharge Timeframe: to be determined
[2020-05-28] MEDS: NORMAL SALINE 1000 ML 1,000 ML IV PRN (23:53)
[2020-05-29] MEDS: INSULIN REG, HUMAN 100 UNIT/ML 3 ML VIAL (PYX) SUBCUT SCH ×5 (00:30→17:24)
[2020-05-29] MEDS: DIPHENHYDRAMINE HCL 50 MG/ML VIAL IV PRN ×3 (04:23→23:44)
[2020-05-29] MEDS: HYDROMORPHONE HCL INJ/PF 2 MG/ML AMPULE IV PRN ×6 (04:23→23:39)
[2020-05-29] MEDS: IPRATROPIUM/ALBUTEROL 0.5-2.5 MG/3 ML AMPUL NEB PRN ×3 (04:26→17:06)
[2020-05-29] MEDS: METOCLOPRAMIDE HCL INJ/PF 10 MG/2 ML SDV IV SCH ×4 (06:49→23:40)
[2020-05-29 07:37] LABS: ANION GAP 5 (5-19); BLOOD UREA NITROGEN 13 mg/dL (7-20); CALCIUM 7.9 mg/dL (8.4-10.2); CARBON DIOXIDE 27 mmol/L (22-30); CHLORIDE 110 mmol/L (98-107); GLUCOSE 96 mg/dL (75-110); POTASSIUM 4.1 mmol/L (3.6-5.0)
[2020-05-29] MEDS: NORMAL SALINE 1000 ML 1,000 ML IV PRN (08:29)
[2020-05-29] MEDS: NIFEDIPINE 30 MG TAB.ER.24 PO SCH (11:00)
[2020-05-29] MEDS: CALCIUM CARBONATE 500 MG TAB.CHEW PEG SCH ×2 (11:00→17:25)
[2020-05-29] MEDS: BUSPIRONE HCL 10 MG TABLET PEG SCH (11:00)
[2020-05-29] MEDS: POTASSIUM CHLORIDE 20 MEQ PACKET PEG SCH (11:00)
[2020-05-29] MEDS ORDERED: NITROGLYCERIN 10 MG (0.4 MG/HR) PATCH.TD24 TD ONE (12:30)
--- NOTE | 2020-05-29 16:52 | PDOC PROGRESS REPORT ---
Subjective Date:: 05/29/20 Subjective:: er admitting physician: "FREDDIE LAZO JR is a 60 year old male, past medical history of type 2 diabetes hypertension CHF narcotic dependence CKD who was recently discharged from [facility] April 19, 2020 after being admitted for 89 days secondary to acute respiratory failure from COVID pneumonia. He was discharged with a tracheostomy tube uncuffed. Before discharge he has been able to speak and eat and the plan was to eventually remove the tracheostomy at [facility]. Sent back to the emergency room for evaluation of shortness of breath. EMS was called by the facility because the patient was diaphoretic with a blood glucose of 30 staff administered 1 mg glucagon in a tube and a half of oral glucose prior to EMS arrival and recheck of blood glucose was 40. Upon EMS arrival patient was pale with diminished breath sounds so he was placed on 15 L O2 via nonrebreather O2 sats went up to 86% and blood glucose was 147 upon ED arrival. In the emergency room he apparently continued to be hypoxic hence a trach cuff was placed and he was put back on mechanical ventilation briefly. He was also noted to be hypotensive hence central line was placed by Dr. Jean-Baptiste. Patient was given IV fluids. Repeat chest x-ray showed improvement of his diffuse bibasilar opacities compared from previous chest x-ray. Dr. Chandler evaluated him in the ED who felt that he does not need ICU admission. He was given 4 L of IV fluids. He was eventually transitioned to tracheal collar and was maintaining his O2 saturation to 95%. Patient was then admitted for further management. WBC count 19.5 in the ED he was given 1 dose of aztreonam and vancomycin." Per Previous Physician: "05/14/2020 MUCOUS PLUGGING, ACUTE HYPOXIC RESPIRATORY FAILURE Patient was seen early on in rounds this morning. At the time patient was noted to sound congested. He however had been suctioned and apparently no further suctioning required at that time. I discussed with the patient the need to be able to give him medications either through an NG tube or PEG tube IV fluids or TPN or combination of all these however patient refused. Patient was new to me today and after discussing with the nurse I did find out that he had been refusing multiple modalities of treatment and management. About 30 minutes after saw this patient when he was still relatively stable a rapid response was called and apparently he went into respiratory distress. He was found to be hypoxic. By the time he got there he was cyanotic. His oxygen saturation was in the 60s also. He was 100% oxygen and his BiPAP setting was changed. Multiple attempts to oxygenate him failed. It was felt that patient will be better served in the intensive care unit. Supervisor [employer] Department was informed and Came to assess patient. Patient was transferred to the unit. Please see Dr. Hernández's notes for further details chest x-ray obtained reveals diffuse opacification in the left chest possibly due to extensive infiltrate atelectasis collapse pleural effusion with improved aeration in the right lung base. This is consistent with his lung findings which shows grossly diminished air entry." 05/20/2020 Patient sent out of the ICU yesterday afternoon. Per my discussion with Dr. Chandler, patient has frequent mucous plugging and needs to be lavaged and suctioned by respiratory therapy frequently. It is likely the patient will continue mucous plugging intermittently and may need to be sent back to the ICU at some point. He has been maintained on trach collar with intermittent ventilatory support. Patient was asking for increases in his narcotics and I discussed the risks of respiratory depression if we were to pursue this. We will keep his narcotics at the current dosing and frequency for now. 05/21/2020 Patient had a episode of mucous plugging which resolved with aggressive lavage and suctioning by RT. Patient also had a problem with his NG feeding tube where it was somewhat displaced and nursing replaced this infected follow-up chest x- ray To confirm location. Blood culture on 05/09 remains negative. Latest chest x-ray shows diffuse bilateral disease which could potentially be worse. Patient is calm and resting today and does not have any new complaints. 05/22/2020 Patient appears rather calm today until I entered the room. He then wrote on his marker board and mouthed words to me stating he wants IV narcotics and IV sedatives. I discussed with him that adding these medications could be detrimental to his respiratory status. We will keep his pain medication as it is for now. I believe he is gradually improving as respiratory therapy is doing a great job lavaging and suctioning out large mucous plugs daily. Perhaps if we do enough of this every day, patient will be able to wean from the ventilator and tolerate trach collar alone. 05/23/2020 I had an extensive discussion with the patient today regarding PEG tube placement and he repeatedly stated he wanted to speak to the doctor and I repeatedly told him I am the doctor. I asked him if he would like me to get the surgeon involved to place a PEG tube. He refused to answer me at this point and did not seem interested in any my recommendations. We will ask respiratory therapy if he can get CPT to break up mucous plugs, continue lavaging and suctioning, and continue attempting to wean from the vent. Hemoglobin showed an acute drop down to 6.4 and this was rechecked to reveal 6.9. We will transfuse 1 unit PRBC which may help with his oxygenation as well. Will need to be mindful of the extra volume this will provide and watch for volume overload. Blood cell count is higher while hemoglobin and platelets are lower. Calcium is significantly lower we will replete this both IV and oral. 05/24/2020 Patient is resting comfortably today. He is off IV antibiotics and I have discontinued his IV Benadryl in place of Benadryl capsules that can go through his NG tube. We are still waiting on the patient to decide if he wants a PEG tube to be placed. It is my understanding that he cannot go to an acute care facility for rehab until he has a definitive feeding tube placed and he cannot go to a regular SNF while he is requiring the vent. If the patient wants a PEG tube or if we can wean him from the vent, disposition can move forward. Respiratory therapy will continue to lavage and suction the patient regularly and weaning from the ventilator. I discussed this with nursing. Hemoglobin is higher and potassium is lower today. His chest x-ray looks noticeably improved per my read. 05/25/2020 Patient fully awake and alert today and states repeatedly that he wants a PEG tube placed. He states that his pain after procedures is only well controlled on Dilaudid and I stated I would give him a low-dose of Dilaudid available as needed afterwards. I have consulted general surgery discussed case with Dr. Small who is agreed to consult on the patient. Patient will have his PEG tube placed tomorrow and will be n.p.o. at midnight tonight. Tube feeds will need to be held. We will make sure the patient has adequate pain control afterwards. Case management will need to start aggressively applying the patient for LTAC facilities starting on Wednesday. 05/26/2020 Patient successfully had PEG tube placed. He is having some additional pain I have increased the frequency of his IV Dilaudid. He understands we will begin tapering this tomorrow. Respiratory status is approximately the same as before. He still requiring frequent ventilator support. Latest blood cultures are negative. Plan is for patient to go to [facility] in the next few days if he is accepted. 05/27/2020 Patient states his pain is well controlled and he would like to start transitioning from IV narcotics to oral narcotics in anticipation of going to LTAC. I have switched his Dilaudid to oral I will leave a smaller dose available for breakthrough pain. Patient states he is motivated to perform more aggressive rehab and he knows that this cannot be accomplished inpatient. Patient's breathing is about the same as it was yesterday. Patient still requiring ventilator support. 05/28/20 Patient was seen and examined at bedside. Complains of pain lower abdomen however physical exam not consistent with the amount of pain he is complaining of. He is also requesting for more IV pain medications. He is status post PEG tube placement postop day 1 currently tolerating tube feedings. No significant change on his pulmonary status. 05/29/20 Patient was seen and examined at bedside. No new complains. Asking if he can have clear soup, I told him it would not be advisable now. He is asking for more IV pain medications as usual. Reason For Visit: MUCOUS PLUGGING, ACUTE HYPOXIC RESPIRATORY FAILURE Physical Exam Vital Signs: Temp Pulse Resp BP Pulse Ox 98.0 F 107 H 16 107/70 93 05/29/20 12:06 05/29/20 14:00 05/29/20 13:01 05/29/20 12:06 05/29/20 13:01 Intake & Output 05/28/20 05/29/20 05/30/20 06:59 06:59 06:59 Intake Total 3850 850 2000 Output Total 600 800 Balance 3250 50 2000 Weight 71.9 kg 74.3 kg General appearance: PRESENT: no acute distress, cooperative Head exam: PRESENT: atraumatic, normocephalic Eye exam: PRESENT: EOMI, PERRLA Mouth exam: PRESENT: moist Neck exam: PRESENT: full ROM, tracheostomy Respiratory exam: PRESENT: clear to auscultation yousif, symmetrical, unlabored Cardiovascular exam: PRESENT: RRR, +S1, +S2 Pulses: PRESENT: +2 pedal pulses bilateral GI/Abdominal exam: PRESENT: normal bowel sounds, soft. ABSENT: rebound, tenderness Extremities exam: PRESENT: other - Muscle weakness Neurological exam: PRESENT: alert, awake, oriented to person, oriented to place, oriented to time, oriented to situation Psychiatric exam: PRESENT: normal mood Skin exam: PRESENT: normal color Results Laboratory Results: 05/28/20 04:00 05/29/20 06:35 05/29/20 06:35 Sodium 142.0 Potassium 4.1 Chloride 110 H Carbon Dioxide 27 Anion Gap 5 BUN 13 Creatinine 0.73 Est GFR ( Amer) > 60 Glucose 96 Calcium 7.9 L 04/20/20 04/23/20 04/23/20 09:00 01:55 01:55 Creatine Kinase < 20 L CK-MB (CK-2) 2.20 Troponin I < 0.012 0.082 NT-Pro-B Natriuret Pep 19394 H 04/23/20 04/23/20 04/23/20 05:58 08:22 14:50 Creatine Kinase < 20 L < 20 L CK-MB (CK-2) 2.24 Troponin I 0.066 NT-Pro-B Natriuret Pep 04/23/20 14:50 Creatine Kinase CK-MB (CK-2) 2.09 Troponin I 0.057 NT-Pro-B Natriuret Pep Impressions: Modified Barium Swallow 04/26/20 00:01 IMPRESSION: LARYNGEAL PENETRATION WITH THIN BARIUM, WITH TRACE ASPIRATION FROM RESIDUALS. PLEASE SEE SPEECH PATHOLOGIST REPORT FOR OTHER FINDINGS AND RECOMMENDATIONS. PICC Line Insertion 05/07/20 00:00 IMPRESSION: SUCCESSFUL PLACEMENT OF A 5 FR DUAL LUMEN 47 CM PICC IN THE LEFT BRACHIOCEPHALIC VEIN. KUB X-Ray 05/16/20 11:57 IMPRESSION: NG tube as described. Findings as described. Chest X-Ray 05/25/20 00:00 IMPRESSION: No improvement in the diffuse opacities likely covid 19. SUPPORT DEVICE(S) IN EXPECTED LOCATIONS. Assessment and Plan - Diagnosis (1) Respiratory failure, [id number] Qualifiers: Respiratory failure complication: hypoxia Is this a current diagnosis for this admission?: Yes Plan: -Has a trach and intermittently on mechanical ventilation and trach collar intermittently -Awaiting LTAC placement (2) Leukocytosis Qualifiers: Leukocytosis type: unspecified Qualified Code(s): D72.829 - Elevated white blood cell count, unspecified Is this a current diagnosis for this admission?: Yes Plan: --WBC 13.5 - has completed multiple courses of abx - afebrile - will CTM. (3) COVID-19 Is this a current diagnosis for this admission?: Yes Plan: -resolved but patient has suffered significant co morbidity from it - no indication to retest - continue vent support (4) Critical illness myopathy Is this a current diagnosis for this admission?: Yes Plan: -2/2 ICU and prolonged hospital stay - would need extensive rehab given that he has already been in the hospital for 3 months or more (5) Dysphagia Qualifiers: Dysphagia type: oropharyngeal phase Qualified Code(s): R13.12 - Dysphagia, oropharyngeal phase Is this a current diagnosis for this admission?: Yes Plan: - has finally agreed for PEG tube -Requesting to have clear soup by mouth -Ask speech therapist to reassess him. - currently receiving feeding via PEG (6) Bacteremia due to Enterococcus Is this a current diagnosis for this admission?: Yes Plan: - completed antibiotics treatment (7) MSSA bacteremia Is this a current diagnosis for this admission?: Yes Plan: completed treatment (8) Hyperglycemia due to type 2 diabetes mellitus Qualifiers: Diabetes mellitus [employer] insulin use: with [employer] use Qualified Code(s): E11.65 - Type 2 diabetes mellitus with hyperglycemia; Z79.4 - alf (current) use of insulin Is this a current diagnosis for this admission?: Yes Plan: - currently on scheduled insulin (9) Acute kidney injury superimposed on chronic kidney disease Is this a current diagnosis for this admission?: Yes Plan: - crea stable (10) Acute metabolic encephalopathy Is this a current diagnosis for this admission?: Yes Plan: Resolved (11) Chronic pain Qualifiers: Chronic pain type: other chronic pain Qualified Code(s): G89.29 - Other chronic pain Is this a current diagnosis for this admission?: Yes Plan: On p.o. Dilaudid and as needed IV Dilaudid for severe pain -We will not give her more narcotics (12) Debility Is this a current diagnosis for this admission?: Yes Plan: Needs LTAC placement (13) Dependent on ventilator Is this a current diagnosis for this admission?: Yes - Time Time Spent with patient: 25-34 minutes Anticipated Discharge Disposition: Intermediate Care Facility Anticipated Discharge Timeframe: to be determined
[2020-05-30] MEDS: INSULIN REG, HUMAN 100 UNIT/ML 3 ML VIAL (PYX) SUBCUT SCH ×4 (00:30→17:12)
[2020-05-30] MEDS: IPRATROPIUM/ALBUTEROL 0.5-2.5 MG/3 ML AMPUL NEB PRN ×3 (01:44→19:48)
[2020-05-30] MEDS: HYDROMORPHONE HCL INJ/PF 2 MG/ML AMPULE IV PRN ×6 (06:18→21:35)
[2020-05-30] MEDS: METOCLOPRAMIDE HCL INJ/PF 10 MG/2 ML SDV IV SCH ×3 (06:18→21:35)
[2020-05-30] MEDS: DIPHENHYDRAMINE HCL 50 MG/ML VIAL IV PRN ×3 (06:18→18:23)
[2020-05-30] MEDS: BUSPIRONE HCL 10 MG TABLET PEG SCH ×2 (09:15→17:11)
[2020-05-30] MEDS: NIFEDIPINE 30 MG TAB.ER.24 PO SCH (09:15)
[2020-05-30] MEDS: CALCIUM CARBONATE 500 MG TAB.CHEW PEG SCH ×2 (09:16→17:11)
[2020-05-30] MEDS: PROMETHAZINE HCL INJ 25 MG/1 ML VIAL IV PRN (09:45)
[2020-05-30 09:48] LABS: MEAN CORPUSCULAR HEMOGLOBIN 26.5 pg (27.0-33.4); MEAN CORPUSCULAR HGB CONC 30.9 g/dL (32.0-36.0); MEAN CORPUSCULAR VOLUME 86 fl (80-97); PLATELET COUNT 454 10^3/uL (150-450); RED BLOOD COUNT 2.69 10^6/uL (4.35-5.55); RED CELL DISTRIBUTION WIDTH 17.3 % (11.5-14.0); WHITE BLOOD COUNT 14.2 10^3/uL (4.0-10.5)
[2020-05-30 09:54] LABS: HEMOGLOBIN 7.1 g/dL (13.5-17.0)
[2020-05-30 10:15] LABS: ABSOLUTE LYMPHOCYTES# (MANUAL) 0.9 10^3/uL (0.5-4.7); ABSOLUTE MONOCYTES # (MANUAL) 0.4 10^3/uL (0.1-1.4); ANISOCYTOSIS 1+; BAND NEUTROPHILS % (MANUAL) 1 % (3-5); BASOPHILS % (MANUAL) 0 % (0-2); EOSINOPHILS % (MANUAL) 3 % (0-6); LYMPHOCYTES % (MANUAL) 6 % (13-45); MONOCYTES % (MANUAL) 3 % (3-13); PLATELET COMMENT ADEQUATE; SEGMENTED NEUTROPHILS % (MAN) 87 % (42-78); TOTAL CELLS COUNTED 100
[2020-05-30 10:16] LABS: HYPOCHROMASIA SLIGHT; TARGET CELLS SLIGHT
[2020-05-30] MEDS ORDERED: NORMAL SALINE 250 ML IV PRN ×2 (10:28)
--- NOTE | 2020-05-30 20:07 | PDOC PROGRESS REPORT ---
Subjective Date:: 05/30/20 Subjective:: er admitting physician: "FREDDIE LAZO JR is a 60 year old male, past medical history of type 2 diabetes hypertension CHF narcotic dependence CKD who was recently discharged from [facility] April 19, 2020 after being admitted for 89 days secondary to acute respiratory failure from COVID pneumonia. He was discharged with a tracheostomy tube uncuffed. Before discharge he has been able to speak and eat and the plan was to eventually remove the tracheostomy at [facility]. Sent back to the emergency room for evaluation of shortness of breath. EMS was called by the facility because the patient was diaphoretic with a blood glucose of 30 staff administered 1 mg glucagon in a tube and a half of oral glucose prior to EMS arrival and recheck of blood glucose was 40. Upon EMS arrival patient was pale with diminished breath sounds so he was placed on 15 L O2 via nonrebreather O2 sats went up to 86% and blood glucose was 147 upon ED arrival. In the emergency room he apparently continued to be hypoxic hence a trach cuff was placed and he was put back on mechanical ventilation briefly. He was also noted to be hypotensive hence central line was placed by Dr. Jean-Baptiste. Patient was given IV fluids. Repeat chest x-ray showed improvement of his diffuse bibasilar opacities compared from previous chest x-ray. Dr. Chandler evaluated him in the ED who felt that he does not need ICU admission. He was given 4 L of IV fluids. He was eventually transitioned to tracheal collar and was maintaining his O2 saturation to 95%. Patient was then admitted for further management. WBC count 19.5 in the ED he was given 1 dose of aztreonam and vancomycin." Per Previous Physician: "05/14/2020 MUCOUS PLUGGING, ACUTE HYPOXIC RESPIRATORY FAILURE Patient was seen early on in rounds this morning. At the time patient was noted to sound congested. He however had been suctioned and apparently no further suctioning required at that time. I discussed with the patient the need to be able to give him medications either through an NG tube or PEG tube IV fluids or TPN or combination of all these however patient refused. Patient was new to me today and after discussing with the nurse I did find out that he had been refusing multiple modalities of treatment and management. About 30 minutes after saw this patient when he was still relatively stable a rapid response was called and apparently he went into respiratory distress. He was found to be hypoxic. By the time he got there he was cyanotic. His oxygen saturation was in the 60s also. He was 100% oxygen and his BiPAP setting was changed. Multiple attempts to oxygenate him failed. It was felt that patient will be better served in the intensive care unit. Education Paraprofessional was informed and Came to assess patient. Patient was transferred to the unit. Please see Dr. Hernández's notes for further details chest x-ray obtained reveals diffuse opacification in the left chest possibly due to extensive infiltrate atelectasis collapse pleural effusion with improved aeration in the right lung base. This is consistent with his lung findings which shows grossly diminished air entry." 05/20/2020 Patient sent out of the ICU yesterday afternoon. Per my discussion with Dr. Chandler, patient has frequent mucous plugging and needs to be lavaged and suctioned by respiratory therapy frequently. It is likely the patient will continue mucous plugging intermittently and may need to be sent back to the ICU at some point. He has been maintained on trach collar with intermittent ventilatory support. Patient was asking for increases in his narcotics and I discussed the risks of respiratory depression if we were to pursue this. We will keep his narcotics at the current dosing and frequency for now. 05/21/2020 Patient had a episode of mucous plugging which resolved with aggressive lavage and suctioning by RT. Patient also had a problem with his NG feeding tube where it was somewhat displaced and nursing replaced this infected follow-up chest x- ray To confirm location. Blood culture on 05/09 remains negative. Latest chest x-ray shows diffuse bilateral disease which could potentially be worse. Patient is calm and resting today and does not have any new complaints. 05/22/2020 Patient appears rather calm today until I entered the room. He then wrote on his marker board and mouthed words to me stating he wants IV narcotics and IV sedatives. I discussed with him that adding these medications could be detrimental to his respiratory status. We will keep his pain medication as it is for now. I believe he is gradually improving as respiratory therapy is doing a great job lavaging and suctioning out large mucous plugs daily. Perhaps if we do enough of this every day, patient will be able to wean from the ventilator and tolerate trach collar alone. 05/23/2020 I had an extensive discussion with the patient today regarding PEG tube placement and he repeatedly stated he wanted to speak to the doctor and I repeatedly told him I am the doctor. I asked him if he would like me to get the surgeon involved to place a PEG tube. He refused to answer me at this point and did not seem interested in any my recommendations. We will ask respiratory therapy if he can get CPT to break up mucous plugs, continue lavaging and suctioning, and continue attempting to wean from the vent. Hemoglobin showed an acute drop down to 6.4 and this was rechecked to reveal 6.9. We will transfuse 1 unit PRBC which may help with his oxygenation as well. Will need to be mindful of the extra volume this will provide and watch for volume overload. Blood cell count is higher while hemoglobin and platelets are lower. Calcium is significantly lower we will replete this both IV and oral. 05/24/2020 Patient is resting comfortably today. He is off IV antibiotics and I have discontinued his IV Benadryl in place of Benadryl capsules that can go through his NG tube. We are still waiting on the patient to decide if he wants a PEG tube to be placed. It is my understanding that he cannot go to an acute care facility for rehab until he has a definitive feeding tube placed and he cannot go to a regular SNF while he is requiring the vent. If the patient wants a PEG tube or if we can wean him from the vent, disposition can move forward. Respiratory therapy will continue to lavage and suction the patient regularly and weaning from the ventilator. I discussed this with nursing. Hemoglobin is higher and potassium is lower today. His chest x-ray looks noticeably improved per my read. 05/25/2020 Patient fully awake and alert today and states repeatedly that he wants a PEG tube placed. He states that his pain after procedures is only well controlled on Dilaudid and I stated I would give him a low-dose of Dilaudid available as needed afterwards. I have consulted general surgery discussed case with Dr. Small who is agreed to consult on the patient. Patient will have his PEG tube placed tomorrow and will be n.p.o. at midnight tonight. Tube feeds will need to be held. We will make sure the patient has adequate pain control afterwards. Case management will need to start aggressively applying the patient for LTAC facilities starting on Wednesday. 05/26/2020 Patient successfully had PEG tube placed. He is having some additional pain I have increased the frequency of his IV Dilaudid. He understands we will begin tapering this tomorrow. Respiratory status is approximately the same as before. He still requiring frequent ventilator support. Latest blood cultures are negative. Plan is for patient to go to [facility] in the next few days if he is accepted. 05/27/2020 Patient states his pain is well controlled and he would like to start transitioning from IV narcotics to oral narcotics in anticipation of going to LTAC. I have switched his Dilaudid to oral I will leave a smaller dose available for breakthrough pain. Patient states he is motivated to perform more aggressive rehab and he knows that this cannot be accomplished inpatient. Patient's breathing is about the same as it was yesterday. Patient still requiring ventilator support. 05/28/20 Patient was seen and examined at bedside. Complains of pain lower abdomen however physical exam not consistent with the amount of pain he is complaining of. He is also requesting for more IV pain medications. He is status post PEG tube placement postop day 1 currently tolerating tube feedings. No significant change on his pulmonary status. 05/29/20 Patient was seen and examined at bedside. No new complains. Asking if he can have clear soup, I told him it would not be advisable now. He is asking for more IV pain medications as usual. 05/30/20 Patient seen and examined. Complaining of anxiety. I have increased his Buspar to 10 BID. Swallow eval for tomorrow. Reason For Visit: MUCOUS PLUGGING, ACUTE HYPOXIC RESPIRATORY FAILURE Physical Exam Vital Signs: Temp Pulse Resp BP Pulse Ox 98.3 F 99 18 150/80 H 95 05/30/20 15:20 05/30/20 15:20 05/30/20 15:20 05/30/20 15:20 05/30/20 15:20 Intake & Output 05/29/20 05/30/20 05/31/20 06:59 06:59 06:59 Intake Total 850 2958 1118 Output Total 800 400 500 Balance 50 2558 618 Weight 74.3 kg 75.1 kg 75.1 kg General appearance: PRESENT: cooperative, mild distress Head exam: PRESENT: atraumatic, normocephalic Eye exam: PRESENT: EOMI, PERRLA Mouth exam: PRESENT: moist Neck exam: PRESENT: full ROM, tracheostomy Respiratory exam: PRESENT: clear to auscultation yousif, symmetrical, unlabored Cardiovascular exam: PRESENT: RRR, +S1, +S2 GI/Abdominal exam: PRESENT: normal bowel sounds, soft, other - PEG tube in place Extremities exam: PRESENT: other - lower extremity weakness Neurological exam: PRESENT: alert, awake, oriented to person, oriented to place, oriented to time, oriented to situation Psychiatric exam: PRESENT: normal mood Skin exam: PRESENT: normal color Results Laboratory Results: 05/30/20 09:30 05/29/20 06:35 05/30/20 05/30/20 09:30 11:07 WBC 14.2 H RBC 2.69 L Hgb 7.1 L Hct 23.0 L MCV 86 MCH 26.5 L MCHC 30.9 L RDW 17.3 H Plt Count 454 H Seg Neutrophils % Not Reportable Blood Type A POSITIVE Antibody Screen NEGATIVE 04/20/20 04/23/20 04/23/20 09:00 01:55 01:55 Creatine Kinase < 20 L CK-MB (CK-2) 2.20 Troponin I < 0.012 0.082 NT-Pro-B Natriuret Pep 06700 H 04/23/20 04/23/20 04/23/20 05:58 08:22 14:50 Creatine Kinase < 20 L < 20 L CK-MB (CK-2) 2.24 Troponin I 0.066 NT-Pro-B Natriuret Pep 04/23/20 14:50 Creatine Kinase CK-MB (CK-2) 2.09 Troponin I 0.057 NT-Pro-B Natriuret Pep Impressions: Modified Barium Swallow 04/26/20 00:01 IMPRESSION: LARYNGEAL PENETRATION WITH THIN BARIUM, WITH TRACE ASPIRATION FROM RESIDUALS. PLEASE SEE SPEECH PATHOLOGIST REPORT FOR OTHER FINDINGS AND RECOMMEND ATIONS. PICC Line Insertion 05/07/20 00:00 IMPRESSION: SUCCESSFUL PLACEMENT OF A 5 FR DUAL LUMEN 47 CM PICC IN THE LEFT BRACHIOCEPHALIC VEIN. KUB X-Ray 05/16/20 11:57 IMPRESSION: NG tube as described. Findings as described. Chest X-Ray 05/25/20 00:00 IMPRESSION: No improvement in the diffuse opacities likely covid 19. SUPPORT DEVICE(S) IN EXPECTED LOCATIONS. Assessment and Plan - Diagnosis (1) Respiratory failure, [id number] Qualifiers: Respiratory failure complication: hypoxia Qualified Code(s): J96.21 - Acute and chronic respiratory failure with hypoxia Is this a current diagnosis for this admission?: Yes Plan: -Has a trach and intermittently on mechanical ventilation and trach collar intermittently -Awaiting LTAC placement (2) Leukocytosis Qualifiers: Leukocytosis type: unspecified Qualified Code(s): D72.829 - Elevated white blood cell count, unspecified Is this a current diagnosis for this admission?: Yes Plan: --WBC 13.5 - has completed multiple courses of abx - afebrile - will CTM. (3) COVID-19 Is this a current diagnosis for this admission?: Yes Plan: -resolved but patient has suffered significant co morbidity from it - no indication to retest - continue vent support (4) Critical illness myopathy Is this a current diagnosis for this admission?: Yes Plan: -2/2 ICU and prolonged hospital stay - would need extensive rehab given that he has already been in the hospital for 3 months or more (5) Dysphagia Qualifiers: Dysphagia type: oropharyngeal phase Qualified Code(s): R13.12 - Dysphagia, oropharyngeal phase Is this a current diagnosis for this admission?: Yes Plan: - has finally agreed for PEG tube -Requesting to have clear soup by mouth -Ask speech therapist to reassess him. 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 Dilaudid and as needed IV Dilaudid for severe pain -We will not give her more narcotics (12) Debility Is this a current diagnosis for this admission?: Yes Plan: Needs LTAC placement (13) Dependent on ventilator Is this a current diagnosis for this admission?: Yes - Time Time Spent with patient: 25-34 minutes Medications reviewed and adjusted accordingly: Yes Anticipated Discharge Disposition: [facility] Anticipated Discharge Timeframe: to be determined
[2020-05-30] MEDS ORDERED: LORAZEPAM INJ 2 MG/1 ML VIAL IV ONE (23:30)
[2020-05-31] MEDS: INSULIN REG, HUMAN 100 UNIT/ML 3 ML VIAL (PYX) SUBCUT SCH ×4 (00:42→17:09)
[2020-05-31 03:35] LABS: HEMATOCRIT 28.8 % (37.9-51.0); MEAN CORPUSCULAR HEMOGLOBIN 26.8 pg (27.0-33.4); MEAN CORPUSCULAR HGB CONC 31.5 g/dL (32.0-36.0); MEAN CORPUSCULAR VOLUME 85 fl (80-97); PLATELET COUNT 496 10^3/uL (150-450); RED BLOOD COUNT 3.37 10^6/uL (4.35-5.55); RED CELL DISTRIBUTION WIDTH 16.9 % (11.5-14.0); WHITE BLOOD COUNT 16.1 10^3/uL (4.0-10.5)
[2020-05-31] MEDS: METOCLOPRAMIDE HCL INJ/PF 10 MG/2 ML SDV IV SCH ×3 (05:22→21:12)
[2020-05-31] MEDS: DIPHENHYDRAMINE HCL 50 MG/ML VIAL IV PRN ×3 (07:30→21:19)
[2020-05-31] MEDS: HYDROMORPHONE HCL INJ/PF 2 MG/ML AMPULE IV PRN ×5 (07:30→21:12)
[2020-05-31] MEDS: IPRATROPIUM/ALBUTEROL 0.5-2.5 MG/3 ML AMPUL NEB PRN ×3 (08:13→20:38)
[2020-05-31] MEDS: POTASSIUM CHLORIDE 20 MEQ PACKET PEG SCH (11:12)
[2020-05-31] MEDS: NIFEDIPINE 30 MG TAB.ER.24 PO SCH (11:13)
[2020-05-31] MEDS: BUSPIRONE HCL 10 MG TABLET PEG SCH ×2 (11:13→17:10)
[2020-05-31] MEDS: CALCIUM CARBONATE 500 MG TAB.CHEW PEG SCH ×2 (11:13→17:10)
[2020-05-31] MEDS: HYDROMORPHONE HCL 2 MG TABLET PEG PRN (17:10)
--- NOTE | 2020-05-31 20:57 | PDOC PROGRESS REPORT ---
Subjective Date:: 05/31/20 Subjective:: er admitting physician: "FREDDIE LAZO JR is a 60 year old male, past medical history of type 2 diabetes hypertension CHF narcotic dependence CKD who was recently discharged from [facility] April 19, 2020 after being admitted for 89 days secondary to acute respiratory failure from COVID pneumonia. He was discharged with a tracheostomy tube uncuffed. Before discharge he has been able to speak and eat and the plan was to eventually remove the tracheostomy at [facility]. Sent back to the emergency room for evaluation of shortness of breath. EMS was called by the facility because the patient was diaphoretic with a blood glucose of 30 staff administered 1 mg glucagon in a tube and a half of oral glucose prior to EMS arrival and recheck of blood glucose was 40. Upon EMS arrival patient was pale with diminished breath sounds so he was placed on 15 L O2 via nonrebreather O2 sats went up to 86% and blood glucose was 147 upon ED arrival. In the emergency room he apparently continued to be hypoxic hence a trach cuff was placed and he was put back on mechanical ventilation briefly. He was also noted to be hypotensive hence central line was placed by Dr. Jean-Baptiste. Patient was given IV fluids. Repeat chest x-ray showed improvement of his diffuse bibasilar opacities compared from previous chest x-ray. Dr. Chandler evaluated him in the ED who felt that he does not need ICU admission. He was given 4 L of IV fluids. He was eventually transitioned to tracheal collar and was maintaining his O2 saturation to 95%. Patient was then admitted for further management. WBC count 19.5 in the ED he was given 1 dose of aztreonam and vancomycin." Per Previous Physician: "05/14/2020 MUCOUS PLUGGING, ACUTE HYPOXIC RESPIRATORY FAILURE Patient was seen early on in rounds this morning. At the time patient was noted to sound congested. He however had been suctioned and apparently no further suctioning required at that time. I discussed with the patient the need to be able to give him medications either through an NG tube or PEG tube IV fluids or TPN or combination of all these however patient refused. Patient was new to me today and after discussing with the nurse I did find out that he had been refusing multiple modalities of treatment and management. About 30 minutes after saw this patient when he was still relatively stable a rapid response was called and apparently he went into respiratory distress. He was found to be hypoxic. By the time he got there he was cyanotic. His oxygen saturation was in the 60s also. He was 100% oxygen and his BiPAP setting was changed. Multiple attempts to oxygenate him failed. It was felt that patient will be better served in the intensive care unit. Maintenance Custodian was informed and Came to assess patient. Patient was transferred to the unit. Please see Dr. Hernández's notes for further details chest x-ray obtained reveals diffuse opacification in the left chest possibly due to extensive infiltrate atelectasis collapse pleural effusion with improved aeration in the right lung base. This is consistent with his lung findings which shows grossly diminished air entry." 05/20/2020 Patient sent out of the ICU yesterday afternoon. Per my discussion with Dr. Chandler, patient has frequent mucous plugging and needs to be lavaged and suctioned by respiratory therapy frequently. It is likely the patient will continue mucous plugging intermittently and may need to be sent back to the ICU at some point. He has been maintained on trach collar with intermittent ventilatory support. Patient was asking for increases in his narcotics and I discussed the risks of respiratory depression if we were to pursue this. We will keep his narcotics at the current dosing and frequency for now. 05/21/2020 Patient had a episode of mucous plugging which resolved with aggressive lavage and suctioning by RT. Patient also had a problem with his NG feeding tube where it was somewhat displaced and nursing replaced this infected follow-up chest x- ray To confirm location. Blood culture on 05/09 remains negative. Latest chest x-ray shows diffuse bilateral disease which could potentially be worse. Patient is calm and resting today and does not have any new complaints. 05/22/2020 Patient appears rather calm today until I entered the room. He then wrote on his marker board and mouthed words to me stating he wants IV narcotics and IV sedatives. I discussed with him that adding these medications could be detrimental to his respiratory status. We will keep his pain medication as it is for now. I believe he is gradually improving as respiratory therapy is doing a great job lavaging and suctioning out large mucous plugs daily. Perhaps if we do enough of this every day, patient will be able to wean from the ventilator and tolerate trach collar alone. 05/23/2020 I had an extensive discussion with the patient today regarding PEG tube placement and he repeatedly stated he wanted to speak to the doctor and I repeatedly told him I am the doctor. I asked him if he would like me to get the surgeon involved to place a PEG tube. He refused to answer me at this point and did not seem interested in any my recommendations. We will ask respiratory therapy if he can get CPT to break up mucous plugs, continue lavaging and suctioning, and continue attempting to wean from the vent. Hemoglobin showed an acute drop down to 6.4 and this was rechecked to reveal 6.9. We will transfuse 1 unit PRBC which may help with his oxygenation as well. Will need to be mindful of the extra volume this will provide and watch for volume overload. Blood cell count is higher while hemoglobin and platelets are lower. Calcium is significantly lower we will replete this both IV and oral. 05/24/2020 Patient is resting comfortably today. He is off IV antibiotics and I have discontinued his IV Benadryl in place of Benadryl capsules that can go through his NG tube. We are still waiting on the patient to decide if he wants a PEG tube to be placed. It is my understanding that he cannot go to an acute care facility for rehab until he has a definitive feeding tube placed and he cannot go to a regular SNF while he is requiring the vent. If the patient wants a PEG tube or if we can wean him from the vent, disposition can move forward. Respiratory therapy will continue to lavage and suction the patient regularly and weaning from the ventilator. I discussed this with nursing. Hemoglobin is higher and potassium is lower today. His chest x-ray looks noticeably improved per my read. 05/25/2020 Patient fully awake and alert today and states repeatedly that he wants a PEG tube placed. He states that his pain after procedures is only well controlled on Dilaudid and I stated I would give him a low-dose of Dilaudid available as needed afterwards. I have consulted general surgery discussed case with Dr. Small who is agreed to consult on the patient. Patient will have his PEG tube placed tomorrow and will be n.p.o. at midnight tonight. Tube feeds will need to be held. We will make sure the patient has adequate pain control afterwards. Case management will need to start aggressively applying the patient for LTAC facilities starting on Wednesday. 05/26/2020 Patient successfully had PEG tube placed. He is having some additional pain I have increased the frequency of his IV Dilaudid. He understands we will begin tapering this tomorrow. Respiratory status is approximately the same as before. He still requiring frequent ventilator support. Latest blood cultures are negative. Plan is for patient to go to [facility] in the next few days if he is accepted. 05/27/2020 Patient states his pain is well controlled and he would like to start transitioning from IV narcotics to oral narcotics in anticipation of going to LTAC. I have switched his Dilaudid to oral I will leave a smaller dose available for breakthrough pain. Patient states he is motivated to perform more aggressive rehab and he knows that this cannot be accomplished inpatient. Patient's breathing is about the same as it was yesterday. Patient still requiring ventilator support. 05/28/20 Patient was seen and examined at bedside. Complains of pain lower abdomen however physical exam not consistent with the amount of pain he is complaining of. He is also requesting for more IV pain medications. He is status post PEG tube placement postop day 1 currently tolerating tube feedings. No significant change on his pulmonary status. 05/29/20 Patient was seen and examined at bedside. No new complains. Asking if he can have clear soup, I told him it would not be advisable now. He is asking for more IV pain medications as usual. 05/30/20 Patient seen and examined. Complaining of anxiety. I have increased his Buspar to 10 BID. Swallow eval for tomorrow. 05/31/20 Patient was seen and examined at bedside. He apparently refused swallow eval that was ordered today. But later when I rounded on him he claimed that did not even come. It has been noted before the he refuses a lot of therapeutic interventions. He is stable otherwise on mechanical ventilation. Reason For Visit: MUCOUS PLUGGING, ACUTE HYPOXIC RESPIRATORY FAILURE Physical Exam Vital Signs: Temp Pulse Resp BP Pulse Ox 97.8 F 101 H 14 151/94 H 98 05/31/20 08:52 05/31/20 20:39 05/31/20 20:39 05/31/20 04:34 05/31/20 20:39 Intake & Output 05/30/20 05/31/20 06/01/20 06:59 06:59 06:59 Intake Total 2958 1679 734 Output Total 400 1075 800 Balance 2558 604 -66 Weight 75.1 kg 78.9 kg General appearance: PRESENT: no acute distress, thin Head exam: PRESENT: atraumatic, normocephalic Eye exam: PRESENT: EOMI, PERRLA Mouth exam: PRESENT: moist Neck exam: PRESENT: full ROM Respiratory exam: PRESENT: clear to auscultation yousif, symmetrical, unlabored Cardiovascular exam: PRESENT: RRR, +S1, +S2 Pulses: PRESENT: +2 pedal pulses bilateral GI/Abdominal exam: PRESENT: normal bowel sounds, soft, other - PEG tube in place. ABSENT: rebound, tenderness Extremities exam: PRESENT: full ROM Musculoskeletal exam: PRESENT: full ROM Neurological exam: PRESENT: alert, awake, oriented to person, oriented to place, oriented to time Psychiatric exam: PRESENT: agitated, anxious Skin exam: PRESENT: normal color Results Laboratory Results: 05/31/20 02:40 05/29/20 06:35 05/31/20 02:40 WBC 16.1 H RBC 3.37 L Hgb 9.0 L Hct 28.8 L MCV 85 MCH 26.8 L MCHC 31.5 L RDW 16.9 H Plt Count 496 H 04/20/20 04/23/20 04/23/20 09:00 01:55 01:55 Creatine Kinase < 20 L CK-MB (CK-2) 2.20 Troponin I < 0.012 0.082 NT-Pro-B Natriuret Pep 96689 H 04/23/20 04/23/20 04/23/20 05:58 08:22 14:50 Creatine Kinase < 20 L < 20 L CK-MB (CK-2) 2.24 Troponin I 0.066 NT-Pro-B Natriuret Pep 04/23/20 14:50 Creatine Kinase CK-MB (CK-2) 2.09 Troponin I 0.057 NT-Pro-B Natriuret Pep Impressions: Modified Barium Swallow 04/26/20 00:01 IMPRESSION: LARYNGEAL PENETRATION WITH THIN BARIUM, WITH TRACE ASPIRATION FROM RESIDUALS. PLEASE SEE SPEECH PATHOLOGIST REPORT FOR OTHER FINDINGS AND RECOMMENDATIONS. PICC Line Insertion 05/07/20 00:00 IMPRESSION: SUCCESSFUL PLACEMENT OF A 5 FR DUAL LUMEN 47 CM PICC IN THE LEFT BRACHIOCEPHALIC VEIN. KUB X-Ray 05/16/20 11:57 IMPRESSION: NG tube as described. Findings as described. Chest X-Ray 05/25/20 00:00 IMPRESSION: No improvement in the diffuse opacities likely covid 19. SUPPORT DEVICE(S) IN EXPECTED LOCATIONS. Assessment and Plan - Diagnosis (1) Respiratory failure, [id number] Qualifiers: Respiratory failure complication: hypoxia Qualified Code(s): J96.21 - Acute and chronic respiratory failure with hypoxia Is this a current diagnosis for this admission?: Yes Plan: -Has a trach and on mechanical ventilation -Awaiting LTAC placement (2) Leukocytosis Qualifiers: Leukocytosis type: unspecified Qualified Code(s): D72.829 - Elevated white blood cell count, unspecified Is this a current diagnosis for this admission?: Yes Plan: --WBC 13.5 - has completed multiple courses of abx so I am less inclined to start him on any medications unless he spikes a fever or takes a turn for the worse 16.1 - afebrile - will CTM. (3) COVID-19 Is this a current diagnosis for this admission?: Yes Plan: -resolved but patient has suffered significant co morbidity from it - no indication to retest - continue vent support (4) Critical illness myopathy Is this a current diagnosis for this admission?: Yes Plan: -2/2 ICU and prolonged hospital stay - would need extensive rehab given that he has already been in the hospital for 3 months or more (5) Dysphagia Qualifiers: Dysphagia type: oropharyngeal phase Qualified Code(s): R13.12 - Dysphagia, oropharyngeal phase Is this a current diagnosis for this admission?: Yes Plan: - has finally agreed for PEG tube -Requesting to have clear soup by mouth -Ask speech therapist to reassess him. - currently receiving feeding via PEG with free water flushes - Na stable (6) Bacteremia due to Enterococcus Is this a current diagnosis for this admission?: Yes Plan: - completed antibiotics treatment (7) MSSA bacteremia Is this a current diagnosis for this admission?: Yes Plan: completed treatment (8) Hyperglycemia due to type 2 diabetes mellitus Qualifiers: Diabetes mellitus machine operator helper insulin use: with machine operator helper use Qualified Code(s): E11.65 - Type 2 diabetes mellitus with hyperglycemia; Z79.4 - cook 3 pastry (current) use of insulin Is this a current diagnosis for this admission?: Yes Plan: - currently on scheduled insulin (9) Acute kidney injury superimposed on chronic kidney disease Is this a current diagnosis for this admission?: Yes Plan: - crea stable (10) Acute metabolic encephalopathy Is this a current diagnosis for this admission?: Yes Plan: Resolved (11) Chronic pain Qualifiers: Chronic pain type: other chronic pain Qualified Code(s): G89.29 - Other chronic pain Is this a current diagnosis for this admission?: Yes Plan: On p.o. Dilaudid and as needed IV Dilaudid for severe pain -We will not give her more narcotics (12) Debility Is this a current diagnosis for this admission?: Yes Plan: Needs LTAC placement (13) Dependent on ventilator Is this a current diagnosis for this admission?: Yes - Time Time Spent with patient: 25-34 minutes Medications reviewed and adjusted accordingly: Yes Anticipated Discharge Disposition: [facility] Facility Anticipated Discharge Timeframe: to be determined
[2020-06-01] MEDS: HYDROMORPHONE HCL INJ/PF 2 MG/ML AMPULE IV PRN ×8 (00:16→22:04)
[2020-06-01] MEDS: IPRATROPIUM/ALBUTEROL 0.5-2.5 MG/3 ML AMPUL NEB PRN ×2 (00:27→05:21)
[2020-06-01] MEDS: DIPHENHYDRAMINE HCL 50 MG/ML VIAL IV PRN ×4 (03:20→22:04)
[2020-06-01] MEDS: METOCLOPRAMIDE HCL INJ/PF 10 MG/2 ML SDV IV SCH ×3 (05:53→22:04)
[2020-06-01] MEDS: INSULIN REG, HUMAN 100 UNIT/ML 3 ML VIAL (PYX) SUBCUT SCH ×4 (05:56→18:49)
[2020-06-01 06:40] LABS: HEMOGLOBIN 9.2 g/dL (13.5-17.0); MEAN CORPUSCULAR HEMOGLOBIN 27.3 pg (27.0-33.4); MEAN CORPUSCULAR HGB CONC 31.8 g/dL (32.0-36.0); MEAN CORPUSCULAR VOLUME 86 fl (80-97); PLATELET COUNT 508 10^3/uL (150-450); RED BLOOD COUNT 3.38 10^6/uL (4.35-5.55); RED CELL DISTRIBUTION WIDTH 16.9 % (11.5-14.0); WHITE BLOOD COUNT 16.2 10^3/uL (4.0-10.5)
[2020-06-01 07:29] LABS: ABSOLUTE MONOCYTES # (MANUAL) 0.5 10^3/uL (0.1-1.4); BASOPHILS % (MANUAL) 0 % (0-2); EOSINOPHILS % (MANUAL) 1 % (0-6); LYMPHOCYTES % (MANUAL) 6 % (13-45); MONOCYTES % (MANUAL) 3 % (3-13); SEGMENTED NEUTROPHILS % (MAN) 90 % (42-78); TOTAL CELLS COUNTED 100
[2020-06-01 07:30] LABS: ANISOCYTOSIS 1+; OVALOCYTES SLIGHT
[2020-06-01 07:31] LABS: POLYCHROMASIA SLIGHT
[2020-06-01 07:32] LABS: PLATELET COMMENT INCREASED
[2020-06-01] MEDS: NIFEDIPINE 30 MG TAB.ER.24 PO SCH (09:43)
[2020-06-01] MEDS: CALCIUM CARBONATE 500 MG TAB.CHEW PEG SCH ×2 (09:43→17:59)
[2020-06-01] MEDS: BUSPIRONE HCL 10 MG TABLET PEG SCH ×2 (09:43→17:59)
[2020-06-01] MEDS: PROMETHAZINE HCL INJ 25 MG/1 ML VIAL IV PRN ×2 (10:42→16:45)
[2020-06-01] MEDS ORDERED: NYSTATIN TOPICAL POWDER 15 GM TP PRN (12:00)
[2020-06-01] MEDS: ONDANSETRON HCL INJ/PF 4 MG/2 ML SDV IV PRN (13:43)
[2020-06-01] MEDS ORDERED: FAMOTIDINE INJ/PF 20 MG/2 ML SDV IV ONE (14:00)
--- NOTE | 2020-06-01 16:41 | PDOC PROGRESS REPORT ---
Subjective Date:: 06/01/20 Subjective:: er admitting physician: "FREDDIE LAZO JR is a 60 year old male, past medical history of type 2 diabetes hypertension CHF narcotic dependence CKD who was recently discharged from [facility] April 19, 2020 after being admitted for 89 days secondary to acute respiratory failure from COVID pneumonia. He was discharged with a tracheostomy tube uncuffed. Before discharge he has been able to speak and eat and the plan was to eventually remove the tracheostomy at [facility]. Sent back to the emergency room for evaluation of shortness of breath. EMS was called by the facility because the patient was diaphoretic with a blood glucose of 30 staff administered 1 mg glucagon in a tube and a half of oral glucose prior to EMS arrival and recheck of blood glucose was 40. Upon EMS arrival patient was pale with diminished breath sounds so he was placed on 15 L O2 via nonrebreather O2 sats went up to 86% and blood glucose was 147 upon ED arrival. In the emergency room he apparently continued to be hypoxic hence a trach cuff was placed and he was put back on mechanical ventilation briefly. He was also noted to be hypotensive hence central line was placed by Dr. Jean-Baptiste. Patient was given IV fluids. Repeat chest x-ray showed improvement of his diffuse bibasilar opacities compared from previous chest x-ray. Dr. Chandler evaluated him in the ED who felt that he does not need ICU admission. He was given 4 L of IV fluids. He was eventually transitioned to tracheal collar and was maintaining his O2 saturation to 95%. Patient was then admitted for further management. WBC count 19.5 in the ED he was given 1 dose of aztreonam and vancomycin." Per Previous Physician: "05/14/2020 MUCOUS PLUGGING, ACUTE HYPOXIC RESPIRATORY FAILURE Patient was seen early on in rounds this morning. At the time patient was noted to sound congested. He however had been suctioned and apparently no further suctioning required at that time. I discussed with the patient the need to be able to give him medications either through an NG tube or PEG tube IV fluids or TPN or combination of all these however patient refused. Patient was new to me today and after discussing with the nurse I did find out that he had been refusing multiple modalities of treatment and management. About 30 minutes after saw this patient when he was still relatively stable a rapid response was called and apparently he went into respiratory distress. He was found to be hypoxic. By the time he got there he was cyanotic. His oxygen saturation was in the 60s also. He was 100% oxygen and his BiPAP setting was changed. Multiple attempts to oxygenate him failed. It was felt that patient will be better served in the intensive care unit. [employer] Screen [employer]inter was informed and Came to assess patient. Patient was transferred to the unit. Please see Dr. Hernández's notes for further details chest x-ray obtained reveals diffuse opacification in the left chest possibly due to extensive infiltrate atelectasis collapse pleural effusion with improved aeration in the right lung base. This is consistent with his lung findings which shows grossly diminished air entry." 05/20/2020 Patient sent out of the ICU yesterday afternoon. Per my discussion with Dr. Chandler, patient has frequent mucous plugging and needs to be lavaged and suctioned by respiratory therapy frequently. It is likely the patient will continue mucous plugging intermittently and may need to be sent back to the ICU at some point. He has been maintained on trach collar with intermittent ventilatory support. Patient was asking for increases in his narcotics and I discussed the risks of respiratory depression if we were to pursue this. We will keep his narcotics at the current dosing and frequency for now. 05/21/2020 Patient had a episode of mucous plugging which resolved with aggressive lavage and suctioning by RT. Patient also had a problem with his NG feeding tube where it was somewhat displaced and nursing replaced this infected follow-up chest x- ray To confirm location. Blood culture on 05/09 remains negative. Latest chest x-ray shows diffuse bilateral disease which could potentially be worse. Patient is calm and resting today and does not have any new complaints. 05/22/2020 Patient appears rather calm today until I entered the room. He then wrote on his marker board and mouthed words to me stating he wants IV narcotics and IV sedatives. I discussed with him that adding these medications could be detrimental to his respiratory status. We will keep his pain medication as it is for now. I believe he is gradually improving as respiratory therapy is doing a great job lavaging and suctioning out large mucous plugs daily. Perhaps if we do enough of this every day, patient will be able to wean from the ventilator and tolerate trach collar alone. 05/23/2020 I had an extensive discussion with the patient today regarding PEG tube placement and he repeatedly stated he wanted to speak to the doctor and I repeatedly told him I am the doctor. I asked him if he would like me to get the surgeon involved to place a PEG tube. He refused to answer me at this point and did not seem interested in any my recommendations. We will ask respiratory therapy if he can get CPT to break up mucous plugs, continue lavaging and suctioning, and continue attempting to wean from the vent. Hemoglobin showed an acute drop down to 6.4 and this was rechecked to reveal 6.9. We will transfuse 1 unit PRBC which may help with his oxygenation as well. Will need to be mindful of the extra volume this will provide and watch for volume overload. Blood cell count is higher while hemoglobin and platelets are lower. Calcium is significantly lower we will replete this both IV and oral. 05/24/2020 Patient is resting comfortably today. He is off IV antibiotics and I have discontinued his IV Benadryl in place of Benadryl capsules that can go through his NG tube. We are still waiting on the patient to decide if he wants a PEG tube to be placed. It is my understanding that he cannot go to an acute care facility for rehab until he has a definitive feeding tube placed and he cannot go to a regular SNF while he is requiring the vent. If the patient wants a PEG tube or if we can wean him from the vent, disposition can move forward. Respiratory therapy will continue to lavage and suction the patient regularly and weaning from the ventilator. I discussed this with nursing. Hemoglobin is higher and potassium is lower today. His chest x-ray looks noticeably improved per my read. 05/25/2020 Patient fully awake and alert today and states repeatedly that he wants a PEG tube placed. He states that his pain after procedures is only well controlled on Dilaudid and I stated I would give him a low-dose of Dilaudid available as needed afterwards. I have consulted general surgery discussed case with Dr. Small who is agreed to consult on the patient. Patient will have his PEG tube placed tomorrow and will be n.p.o. at midnight tonight. Tube feeds will need to be held. We will make sure the patient has adequate pain control afterwards. Case management will need to start aggressively applying the patient for LTAC facilities starting on Wednesday. 05/26/2020 Patient successfully had PEG tube placed. He is having some additional pain I have increased the frequency of his IV Dilaudid. He understands we will begin tapering this tomorrow. Respiratory status is approximately the same as before. He still requiring frequent ventilator support. Latest blood cultures are negative. Plan is for patient to go to [facility] in the next few days if he is accepted. 05/27/2020 Patient states his pain is well controlled and he would like to start transitioning from IV narcotics to oral narcotics in anticipation of going to LTAC. I have switched his Dilaudid to oral I will leave a smaller dose available for breakthrough pain. Patient states he is motivated to perform more aggressive rehab and he knows that this cannot be accomplished inpatient. Patient's breathing is about the same as it was yesterday. Patient still requiring ventilator support. 05/28/20 Patient was seen and examined at bedside. Complains of pain lower abdomen however physical exam not consistent with the amount of pain he is complaining of. He is also requesting for more IV pain medications. He is status post PEG tube placement postop day 1 currently tolerating tube feedings. No significant change on his pulmonary status. 05/29/20 Patient was seen and examined at bedside. No new complains. Asking if he can have clear soup, I told him it would not be advisable now. He is asking for more IV pain medications as usual. 05/30/20 Patient seen and examined. Complaining of anxiety. I have increased his Buspar to 10 BID. Swallow eval for tomorrow. 05/31/20 Patient was seen and examined at bedside. He apparently refused swallow eval that was ordered today. But later when I rounded on him he claimed that did not even come. It has been noted before the he refuses a lot of therapeutic interventions. He is stable otherwise on mechanical ventilation. 06/01/20 Patient was seen and examined at bedside. he is again asking on when he can do a swallow eval. I have told him this will be done on wednesday. He was also asking if he has a medication for his anxiety and again I told him that he has Buspar BID. He should not be started on Xanax or any other benzo. Reason For Visit: MUCOUS PLUGGING, ACUTE HYPOXIC RESPIRATORY FAILURE Physical Exam Vital Signs: Temp Pulse Resp BP Pulse Ox 98.1 F 102 H 18 105/62 95 11/14/20 10:43 06/01/20 14:00 06/01/20 10:43 06/01/20 10:43 06/01/20 10:43 Intake & Output 05/31/20 06/01/20 06/02/20 06:59 06:59 06:59 Intake Total 1679 1368 0 Output Total 1075 1600 250 Balance 604 232 -250 Weight 78.9 kg 80.6 kg General appearance: PRESENT: no acute distress, cooperative Head exam: PRESENT: atraumatic, normocephalic Eye exam: PRESENT: EOMI, PERRLA Neck exam: PRESENT: tracheostomy Respiratory exam: PRESENT: rales, symmetrical, unlabored Cardiovascular exam: PRESENT: RRR, +S1, +S2 Pulses: PRESENT: +2 pedal pulses bilateral GI/Abdominal exam: PRESENT: normal bowel sounds, soft. ABSENT: rebound, tenderness Extremities exam: ABSENT: joint swelling, pedal edema Musculoskeletal exam: PRESENT: normal inspection Neurological exam: PRESENT: alert, awake, oriented to person, oriented to place, oriented to time, oriented to situation Psychiatric exam: PRESENT: normal mood Skin exam: PRESENT: normal color Results Laboratory Results: 06/01/20 05:50 05/29/20 06:35 06/01/20 05:50 WBC 16.2 H RBC 3.38 L Hgb 9.2 L Hct 29.0 L MCV 86 MCH 27.3 MCHC 31.8 L RDW 16.9 H Plt Count 508 H Seg Neutrophils % Not Reportable 04/20/20 04/23/20 04/23/20 09:00 01:55 01:55 Creatine Kinase < 20 L CK-MB (CK-2) 2.20 Troponin I < 0.012 0.082 NT-Pro-B Natriuret Pep 20266 H 04/23/20 04/23/20 04/23/20 05:58 08:22 14:50 Creatine Kinase < 20 L < 20 L CK-MB (CK-2) 2.24 Troponin I 0.066 NT-Pro-B Natriuret Pep 04/23/20 14:50 Creatine Kinase CK-MB (CK-2) 2.09 Troponin I 0.057 NT-Pro-B Natriuret Pep Impressions: Modified Barium Swallow 04/26/20 00:01 IMPRESSION: LARYNGEAL PENETRATION WITH THIN BARIUM, WITH TRACE ASPIRATION FROM RESIDUALS. PLEASE SEE SPEECH PATHOLOGIST REPORT FOR OTHER FINDINGS AND RECOMMENDATIONS. PICC Line Insertion 05/07/20 00:00 IMPRESSION: SUCCESSFUL PLACEMENT OF A 5 FR DUAL LUMEN 47 CM PICC IN THE LEFT BRACHIOCEPHALIC VEIN. KUB X-Ray 05/16/20 11:57 IMPRESSION: NG tube as described. Findings as described. Chest X-Ray 05/25/20 00:00 IMPRESSION: No improvement in the diffuse opacities likely covid 19. SUPPORT DEVICE(S) IN EXPECTED LOCATIONS. Assessment and Plan - Diagnosis (1) Respiratory failure, [id number] Qualifiers: Respiratory failure complication: hypoxia Qualified Code(s): J96.21 - Acute and chronic respiratory failure with hypoxia Is this a current diagnosis for this admission?: Yes Plan: -Has a trach and on mechanical ventilation - I will start weaning him off with trach collar -Awaiting LTAC placement (2) Leukocytosis Qualifiers: Leukocytosis type: unspecified Qualified Code(s): D72.829 - Elevated white blood cell count, unspecified Is this a current diagnosis for this admission?: Yes Plan: --WBC 13.5>16.2 - has completed multiple courses of abx so I am less inclined to start him on any medications unless he spikes a fever or takes a turn for the worse - afebrile - will CTM. (3) COVID-19 Is this a current diagnosis for this admission?: Yes Plan: -resolved but patient has suffered significant co morbidity from it - no indication to retest - continue vent support (4) Critical illness myopathy Is this a current diagnosis for this admission?: Yes Plan: -2/2 ICU and prolonged hospital stay - would need extensive rehab given that he has already been in the hospital for 3 months or more (5) Dysphagia Qualifiers: Dysphagia type: oropharyngeal phase Qualified Code(s): R13.12 - Dysphagia, oropharyngeal phase Is this a current diagnosis for this admission?: Yes Plan: - has finally agreed for PEG tube -Requesting to have clear soup by mouth -Ask speech therapist to reassess him. - currently receiving feeding via PEG with free water flushes - Na stable (6) Bacteremia due to Enterococcus Is this a current diagnosis for this admission?: Yes Plan: - completed antibiotics treatment (7) MSSA bacteremia Is this a current diagnosis for this admission?: Yes Plan: completed treatment (8) Hyperglycemia due to type 2 diabetes mellitus Qualifiers: Diabetes mellitus moth exterminator insulin use: with moth exterminator use Qualified Code(s): E11.65 - Type 2 diabetes mellitus with hyperglycemia; Z79.4 - MCC (current) use of insulin Is this a current diagnosis for this admission?: Yes Plan: - currently on scheduled insulin (9) Acute kidney injury superimposed on chronic kidney disease Is this a current diagnosis for this admission?: Yes Plan: - crea stable (10) Acute metabolic encephalopathy Is this a current diagnosis for this admission?: Yes Plan: Resolved (11) Chronic pain Qualifiers: Chronic pain type: other chronic pain Qualified Code(s): G89.29 - Other chronic pain Is this a current diagnosis for this admission?: Yes Plan: On p.o. Dilaudid and as needed IV Dilaudid for severe pain -We will not give her more narcotics (12) Debility Is this a current diagnosis for this admission?: Yes Plan: Needs LTAC placement (13) Dependent on ventilator Is this a current diagnosis for this admission?: Yes - Time Time Spent with patient: 25-34 minutes Medications reviewed and adjusted accordingly: Yes Anticipated Discharge Disposition: Group Home Care Facility Anticipated Discharge Timeframe: to be determined
[2020-06-02] MEDS: INSULIN REG, HUMAN 100 UNIT/ML 3 ML VIAL (PYX) SUBCUT SCH ×4 (00:15→18:26)
[2020-06-02] MEDS: HYDROMORPHONE HCL INJ/PF 2 MG/ML AMPULE IV PRN ×7 (02:40→21:48)
[2020-06-02] MEDS: DIPHENHYDRAMINE HCL 50 MG/ML VIAL IV PRN ×4 (03:06→21:47)
[2020-06-02] MEDS: METOCLOPRAMIDE HCL INJ/PF 10 MG/2 ML SDV IV SCH ×3 (05:41→21:48)
[2020-06-02] MEDS: IPRATROPIUM/ALBUTEROL 0.5-2.5 MG/3 ML AMPUL NEB PRN ×2 (07:54→20:20)
[2020-06-02] MEDS: BUSPIRONE HCL 10 MG TABLET PEG SCH ×2 (09:53→18:10)
[2020-06-02] MEDS: POTASSIUM CHLORIDE 20 MEQ PACKET PEG SCH (09:53)
[2020-06-02] MEDS: CALCIUM CARBONATE 500 MG TAB.CHEW PEG SCH ×2 (09:54→18:10)
[2020-06-02] MEDS: NIFEDIPINE 30 MG TAB.ER.24 PO SCH (09:54)
[2020-06-02] MEDS ORDERED: HYDROXYZINE HCL INJ 50 MG/1 ML VIAL IM ONE ×2 (10:44→12:30)
--- NOTE | 2020-06-02 21:04 | PDOC PROGRESS REPORT ---
Subjective Date:: 06/02/20 Subjective:: er admitting physician: "FREDDIE LAZO JR is a 60 year old male, past medical history of type 2 diabetes hypertension CHF narcotic dependence CKD who was recently discharged from [facility] April 19, 2020 after being admitted for 89 days secondary to acute respiratory failure from COVID pneumonia. He was discharged with a tracheostomy tube uncuffed. Before discharge he has been able to speak and eat and the plan was to eventually remove the tracheostomy at [facility]. Sent back to the emergency room for evaluation of shortness of breath. EMS was called by the facility because the patient was diaphoretic with a blood glucose of 30 staff administered 1 mg glucagon in a tube and a half of oral glucose prior to EMS arrival and recheck of blood glucose was 40. Upon EMS arrival patient was pale with diminished breath sounds so he was placed on 15 L O2 via nonrebreather O2 sats went up to 86% and blood glucose was 147 upon ED arrival. In the emergency room he apparently continued to be hypoxic hence a trach cuff was placed and he was put back on mechanical ventilation briefly. He was also noted to be hypotensive hence central line was placed by Dr. Jean-Baptiste. Patient was given IV fluids. Repeat chest x-ray showed improvement of his diffuse bibasilar opacities compared from previous chest x-ray. Dr. Chandler evaluated him in the ED who felt that he does not need ICU admission. He was given 4 L of IV fluids. He was eventually transitioned to tracheal collar and was maintaining his O2 saturation to 95%. Patient was then admitted for further management. WBC count 19.5 in the ED he was given 1 dose of aztreonam and vancomycin." Per Previous Physician: "05/14/2020 MUCOUS PLUGGING, ACUTE HYPOXIC RESPIRATORY FAILURE Patient was seen early on in rounds this morning. At the time patient was noted to sound congested. He however had been suctioned and apparently no further suctioning required at that time. I discussed with the patient the need to be able to give him medications either through an NG tube or PEG tube IV fluids or TPN or combination of all these however patient refused. Patient was new to me today and after discussing with the nurse I did find out that he had been refusing multiple modalities of treatment and management. About 30 minutes after saw this patient when he was still relatively stable a rapid response was called and apparently he went into respiratory distress. He was found to be hypoxic. By the time he got there he was cyanotic. His oxygen saturation was in the 60s also. He was 100% oxygen and his BiPAP setting was changed. Multiple attempts to oxygenate him failed. It was felt that patient will be better served in the intensive care unit. [employer] was informed and Came to assess patient. Patient was transferred to the unit. Please see Dr. Hernández's notes for further details chest x-ray obtained reveals diffuse opacification in the left chest possibly due to extensive infiltrate atelectasis collapse pleural effusion with improved aeration in the right lung base. This is consistent with his lung findings which shows grossly diminished air entry." 05/20/2020 Patient sent out of the ICU yesterday afternoon. Per my discussion with Dr. Chandler, patient has frequent mucous plugging and needs to be lavaged and suctioned by respiratory therapy frequently. It is likely the patient will continue mucous plugging intermittently and may need to be sent back to the ICU at some point. He has been maintained on trach collar with intermittent ventilatory support. Patient was asking for increases in his narcotics and I discussed the risks of respiratory depression if we were to pursue this. We will keep his narcotics at the current dosing and frequency for now. 05/21/2020 Patient had a episode of mucous plugging which resolved with aggressive lavage and suctioning by RT. Patient also had a problem with his NG feeding tube where it was somewhat displaced and nursing replaced this infected follow-up chest x- ray To confirm location. Blood culture on 05/09 remains negative. Latest chest x-ray shows diffuse bilateral disease which could potentially be worse. Patient is calm and resting today and does not have any new complaints. 05/22/2020 Patient appears rather calm today until I entered the room. He then wrote on his marker board and mouthed words to me stating he wants IV narcotics and IV sedatives. I discussed with him that adding these medications could be detrimental to his respiratory status. We will keep his pain medication as it is for now. I believe he is gradually improving as respiratory therapy is doing a great job lavaging and suctioning out large mucous plugs daily. Perhaps if we do enough of this every day, patient will be able to wean from the ventilator and tolerate trach collar alone. 05/23/2020 I had an extensive discussion with the patient today regarding PEG tube placement and he repeatedly stated he wanted to speak to the doctor and I repeatedly told him I am the doctor. I asked him if he would like me to get the surgeon involved to place a PEG tube. He refused to answer me at this point and did not seem interested in any my recommendations. We will ask respiratory therapy if he can get CPT to break up mucous plugs, continue lavaging and suctioning, and continue attempting to wean from the vent. Hemoglobin showed an acute drop down to 6.4 and this was rechecked to reveal 6.9. We will transfuse 1 unit PRBC which may help with his oxygenation as well. Will need to be mindful of the extra volume this will provide and watch for volume overload. Blood cell count is higher while hemoglobin and platelets are lower. Calcium is significantly lower we will replete this both IV and oral. 05/24/2020 Patient is resting comfortably today. He is off IV antibiotics and I have discontinued his IV Benadryl in place of Benadryl capsules that can go through his NG tube. We are still waiting on the patient to decide if he wants a PEG tube to be placed. It is my understanding that he cannot go to an acute care facility for rehab until he has a definitive feeding tube placed and he cannot go to a regular SNF while he is requiring the vent. If the patient wants a PEG tube or if we can wean him from the vent, disposition can move forward. Respiratory therapy will continue to lavage and suction the patient regularly and weaning from the ventilator. I discussed this with nursing. Hemoglobin is higher and potassium is lower today. His chest x-ray looks noticeably improved per my read. 05/25/2020 Patient fully awake and alert today and states repeatedly that he wants a PEG tube placed. He states that his pain after procedures is only well controlled on Dilaudid and I stated I would give him a low-dose of Dilaudid available as needed afterwards. I have consulted general surgery discussed case with Dr. Small who is agreed to consult on the patient. Patient will have his PEG tube placed tomorrow and will be n.p.o. at midnight tonight. Tube feeds will need to be held. We will make sure the patient has adequate pain control afterwards. Case management will need to start aggressively applying the patient for LTAC facilities starting on Wednesday. 05/26/2020 Patient successfully had PEG tube placed. He is having some additional pain I have increased the frequency of his IV Dilaudid. He understands we will begin tapering this tomorrow. Respiratory status is approximately the same as before. He still requiring frequent ventilator support. Latest blood cultures are negative. Plan is for patient to go to [facility] in the next few days if he is accepted. 05/27/2020 Patient states his pain is well controlled and he would like to start transitioning from IV narcotics to oral narcotics in anticipation of going to LTAC. I have switched his Dilaudid to oral I will leave a smaller dose available for breakthrough pain. Patient states he is motivated to perform more aggressive rehab and he knows that this cannot be accomplished inpatient. Patient's breathing is about the same as it was yesterday. Patient still requiring ventilator support. 05/28/20 Patient was seen and examined at bedside. Complains of pain lower abdomen however physical exam not consistent with the amount of pain he is complaining of. He is also requesting for more IV pain medications. He is status post PEG tube placement postop day 1 currently tolerating tube feedings. No significant change on his pulmonary status. 05/29/20 Patient was seen and examined at bedside. No new complains. Asking if he can have clear soup, I told him it would not be advisable now. He is asking for more IV pain medications as usual. 05/30/20 Patient seen and examined. Complaining of anxiety. I have increased his Buspar to 10 BID. Swallow eval for tomorrow. 05/31/20 Patient was seen and examined at bedside. He apparently refused swallow eval that was ordered today. But later when I rounded on him he claimed that did not even come. It has been noted before the he refuses a lot of therapeutic interventions. He is stable otherwise on mechanical ventilation. 06/01/20 Patient was seen and examined at bedside. he is again asking on when he can do a swallow eval. I have told him this will be done on wednesday. He was also asking if he has a medication for his anxiety and again I told him that he has Buspar BID. He should not be started on Xanax or any other benzo. 06/02/20 PAtient was seen and examined at bedside. He was asleep after receiving vistaril for anxiety. I have asked the respiratory therapist to try and wean him off with PSV. however he desaturates so he was put back on SIMV. Reason For Visit: MUCOUS PLUGGING, ACUTE HYPOXIC RESPIRATORY FAILURE Physical Exam Vital Signs: Temp Pulse Resp BP Pulse Ox 97.9 F 110 H 18 131/65 H 99 06/02/20 20:27 06/02/20 20:27 06/02/20 20:27 06/02/20 20:27 06/02/20 20:27 Intake & Output 06/01/20 06/02/20 06/03/20 06:59 06:59 06:59 Intake Total 1368 1035 1054 Output Total 1600 1325 310 Balance -232 -290 744 Weight 80.6 kg 80.8 kg General appearance: PRESENT: cooperative, mild distress Head exam: PRESENT: atraumatic, normocephalic Eye exam: PRESENT: EOMI, PERRLA Ear exam: PRESENT: normal external ear exam Mouth exam: PRESENT: moist Neck exam: PRESENT: full ROM, tracheostomy Respiratory exam: PRESENT: clear to auscultation yousif, symmetrical, unlabored Cardiovascular exam: PRESENT: RRR, +S1, +S2 Vascular exam: PRESENT: normal capillary refill GI/Abdominal exam: PRESENT: normal bowel sounds, soft, other - PEG tube in place. ABSENT: tenderness Extremities exam: PRESENT: +1 edema Musculoskeletal exam: PRESENT: other - generalized muscle weakness Neurological exam: PRESENT: alert, awake, oriented to person, oriented to place, oriented to time Psychiatric exam: PRESENT: anxious Skin exam: PRESENT: normal color Results Laboratory Results: 06/01/20 05:50 05/29/20 06:35 04/20/20 04/23/20 04/23/20 09:00 01:55 01:55 Creatine Kinase < 20 L CK-MB (CK-2) 2.20 Troponin I < 0.012 0.082 NT-Pro-B Natriuret Pep 22593 H 04/23/20 04/23/20 04/23/20 05:58 08:22 14:50 Creatine Kinase < 20 L < 20 L CK-MB (CK-2) 2.24 Troponin I 0.066 NT-Pro-B Natriuret Pep 04/23/20 14:50 Creatine Kinase CK-MB (CK-2) 2.09 Troponin I 0.057 NT-Pro-B Natriuret Pep Impressions: Modified Barium Swallow 04/26/20 00:01 IMPRESSION: LARYNGEAL PENETRATION WITH THIN BARIUM, WITH TRACE ASPIRATION FROM RESIDUALS. PLEASE SEE SPEECH PATHOLOGIST REPORT FOR OTHER FINDINGS AND RECOMMENDATIONS. PICC Line Insertion 05/07/20 00:00 IMPRESSION: SUCCESSFUL PLACEMENT OF A 5 FR DUAL LUMEN 47 CM PICC IN THE LEFT BRACHIOCEPHALIC VEIN. KUB X-Ray 05/16/20 11:57 IMPRESSION: NG tube as described. Findings as described. Chest X-Ray 05/25/20 00:00 IMPRESSION: No improvement in the diffuse opacities likely covid 19. SUPPORT DEVICE(S) IN EXPECTED LOCATIONS. Assessment and Plan - Diagnosis (1) Anxiety about health Is this a current diagnosis for this admission?: Yes Plan: - has frequent attacks of anxiety - on buspar 10 BID - would avoid starting him on benzo (2) Respiratory failure, [id number] Qualifiers: Respiratory failure complication: hypoxia Qualified Code(s): J96.21 - Acute and chronic respiratory failure with hypoxia Is this a current diagnosis for this admission?: Yes Plan: -Has a trach and on mechanical ventilation -weaning trial today, desaturated. -Awaiting LTAC placement (3) Leukocytosis Qualifiers: Leukocytosis type: unspecified Qualified Code(s): D72.829 - Elevated white blood cell count, unspecified Is this a current diagnosis for this admission?: Yes Plan: --WBC 13.5>16.2 - has completed multiple courses of abx so I am less inclined to start him on any medications unless he spikes a fever or takes a turn for the worse - afebrile - will CTM. (4) COVID-19 Is this a current diagnosis for this admission?: Yes Plan: -resolved but patient has suffered significant co morbidity from it - no indication to retest - continue vent support (5) Critical illness myopathy Is this a current diagnosis for this admission?: Yes Plan: -2/2 ICU and prolonged hospital stay - would need extensive rehab given that he has already been in the hospital for 3 months or more (6) Dysphagia Qualifiers: Dysphagia type: oropharyngeal phase Qualified Code(s): R13.12 - Dysphagia, oropharyngeal phase Is this a current diagnosis for this admission?: Yes Plan: - has finally agreed for PEG tube -Requesting to have clear soup by mouth -Ask speech therapist to reassess him. - currently receiving feeding via PEG with free water flushes - Na stable (7) Bacteremia due to Enterococcus Is this a current diagnosis for this admission?: Yes Plan: - completed antibiotics treatment (8) MSSA bacteremia Is this a current diagnosis for this admission?: Yes Plan: completed treatment (9) Hyperglycemia due to type 2 diabetes mellitus Qualifiers: Diabetes mellitus skilled nursing insulin use: with exterminator helper termite use Qualified Code(s): E11.65 - Type 2 diabetes mellitus with hyperglycemia; Z79.4 - predatory animal exterminator (current) use of insulin Is this a current diagnosis for this admission?: Yes Plan: - currently on scheduled insulin (10) Acute kidney injury superimposed on chronic kidney disease Is this a current diagnosis for this admission?: Yes Plan: - crea stable (11) Acute metabolic encephalopathy Is this a current diagnosis for this admission?: Yes Plan: Resolved (12) Chronic pain Qualifiers: Chronic pain type: other chronic pain Qualified Code(s): G89.29 - Other chronic pain Is this a current diagnosis for this admission?: Yes Plan: On p.o. Dilaudid and as needed IV Dilaudid for severe pain -We will not give her more narcotics (13) Debility Is this a current diagnosis for this admission?: Yes Plan: Needs LTAC placement (14) Dependent on ventilator Is this a current diagnosis for this admission?: Yes - Time Time Spent with patient: 25-34 minutes Medications reviewed and adjusted accordingly: Yes Anticipated Discharge Disposition: [facility] Anticipated Discharge Timeframe: to be determined
[2020-06-03] MEDS: INSULIN REG, HUMAN 100 UNIT/ML 3 ML VIAL (PYX) SUBCUT SCH ×4 (00:02→17:57)
[2020-06-03] MEDS: HYDROMORPHONE HCL INJ/PF 2 MG/ML AMPULE IV PRN ×8 (00:35→21:13)
[2020-06-03] MEDS: DIPHENHYDRAMINE HCL 50 MG/ML VIAL IV PRN ×3 (03:25→16:50)
[2020-06-03] MEDS: IPRATROPIUM/ALBUTEROL 0.5-2.5 MG/3 ML AMPUL NEB PRN ×2 (05:45→14:12)
[2020-06-03] MEDS: METOCLOPRAMIDE HCL INJ/PF 10 MG/2 ML SDV IV SCH ×3 (06:12→21:13)
[2020-06-03] MEDS: CALCIUM CARBONATE 500 MG TAB.CHEW PEG SCH ×2 (09:01→20:47)
[2020-06-03] MEDS: BUSPIRONE HCL 10 MG TABLET PEG SCH ×2 (09:01→20:47)
[2020-06-03] MEDS: NIFEDIPINE 30 MG TAB.ER.24 PO SCH (09:02)
[2020-06-03] MEDS: PROMETHAZINE HCL INJ 25 MG/1 ML VIAL IV PRN (11:42)
[2020-06-03 12:38] LABS: ALBUMIN 1.9 g/dL (3.5-5.0); ALKALINE PHOSPHATASE 118 U/L (38-126); ASPARTATE AMINO TRANSFERASE 10 U/L (17-59); BILIRUBIN,DIRECT 0.1 mg/dL (0.0-0.4); BILIRUBIN,TOTAL 0.2 mg/dL (0.2-1.3); BLOOD UREA NITROGEN 20 mg/dL (7-20); CALCIUM 8.1 mg/dL (8.4-10.2); CARBON DIOXIDE 35 mmol/L (22-30); GLUCOSE 150 mg/dL (75-110); POTASSIUM 5.1 mmol/L (3.6-5.0); TOTAL PROTEIN 5.3 g/dL (6.3-8.2)
[2020-06-03 12:44] LABS: CHLORIDE 103 mmol/L (98-107)
--- NOTE | 2020-06-03 12:49 | ST Inp Modified Barium Swallow ---
Medical Diagnosis - Medical Diagnoses Medical Diagnosis Description & ICD-10 Code(s): respiratory failure, dysphagia - ICD-10 Tx Diagnosis Coding (1) Dysphagia ICD-10 Code(s): R13.10 - DYSPHAGIA, UNSPECIFIED Inpatient MBS - General Date: 06/03/20 Date of Onset: 02/17/20 - approximate onset - History History Obtained From: Other - EMR -: Medical - Patient admitted 04/20/20, had been admitted just prior to this hospitalization due to respiratory failure with COVID-19. Patient with tracheostomy in place requiring ventilation. Patient has PEG in place for nutrition. History of aspiration and pneumonia previously., ST - Most recent MBSS on 04/26/20 demonstrated aspiration with all trials. At that time, patient was declining PEG placement and NG tube, therefore, diet of thin liquids and puree solids was recommended as this diet reduced amount of aspiration and pharyngeal residue after the swallow. Medications: Medications Reviewed Allergies: Refer to medical record - Subjective Current Nutritional Means: PEG Current PO Diet: N/A (NPO) Current Symptoms: Hx of asp. pneumonia Pain: Patient reports, 0/5 - Objective Assessment: Upright, Left Lateral - Food Trials Food Trials Used: Thin liquids, Pureed The Patient: Required Assist - Assessment Labial Function: Within Functional Limits Lingual Function: Within Functional Limits Velo-Pharyngeal Function: Unremarkable Laryngeal Function: weak voicing - tracheostomy - Pharyngeal Stage Initiation of Pharyngeal Stage: Normal Decreased Laryngeal Elevation: Yes Reduced Velo-Pharyngeal Closure: no Reduced Pressure Generation: Yes Reduced Tongue Base Retraction: No Pre-Swallowing Pooling in Valleculae: Moderate Pre-Swallowing Pooling in Pyriforms: Mild Reduced Thyro-Hyiod Approximation: Yes Reduced Epiglottic Excursion: Yes Multiple Swallows With: Ineffective Clearance Post Swallow Residuals in Valleculae: Significant Post Swallow Residuals in Pyriforms: Moderate - Impression/Summary Laryngeal Penetration: Yes - penetration of thin liquids on the swallow, penetration of residuals from valleculae and pyriform sinus seen with all textures after the swallow, no cough reaction. Tracheal Aspiration: yes - penetration and subsequent aspiration of thin liquids seen on the swallow, penetration and subsequent aspiration of residuals of thin liquid and puree solids from pyriform sinus and valleculae seen after the swallow. No cough reaction. Productive Cough: No Effective Clearing: no Ineffective Compensatory Strategies: hard swallow Patient Presents With: Pharyngeal stage dysph., Severe Risk of Aspiration: Severe Risk of Nutritional Compromise: None - PEG in place - Recommendations NPO: therapeutic trials Dysphagia Therapy with BUTT TRIMMER: Follow Up PRN - Plan to discuss with patient possible dysphagia therapy, patient has had poor compliance and participation previously. Other Recommendations: Recommend patient have thorough oral care 2-3 times per day to reduce the risk of aspiration pneumonia developed from oral secretions. Recommend patient's nutritional needs be met by PEG feeding. Patient may benefit from pharyngeal phase dysphagia therapy if patient chooses. - Time Total Time: 30 Total Timed Minutes: 30
[2020-06-03 12:54] LABS: ANION GAP 1 (5-19)
--- NOTE | 2020-06-03 13:02 | RADIOLOGY REPORT (SQ) ---
EXAM DESCRIPTION: COOKIE SWALLOW IMAGES COMPLETED DATE/TIME: 06/03/2020 10:40 am REASON FOR STUDY: hx of aspiration J96.21 ACUTE AND CHRONIC RESPIRATORY FAILURE WITH HYPOXIA Tracheostomy tube COMPARISON: None. TECHNIQUE: Videofluoroscopic swallowing examination was performed in conjunction with speech patholo gy. Videofluoroscopic imaging was obtained and reviewed and these are the findings: RADIATION DOSE: 2.1 minutes. 1 image saved to PACS. LIMITATIONS: None FINDINGS: The patient was brought into the fluoro room and placed upright on a modified barium swall ow chair. The patient was then given multiple consistencies mixed with barium to swallow under live fluoroscopic video guidance. According to the Speech Pathologist there was laryngeal penetration and aspiration of thin liquids and post swallow residuals from the vallecular. Moderate cricopharyngeal hypertrophy causing narrowing in the proximal esophagus. IMPRESSION: LARYNGEAL PENETRATION AND ASPIRATION ABOVE. HE WAS PLEASE SEE SPEECH PATHOLOGIST REP ORT FOR OTHER FINDINGS AND RECOMMENDATIONS. COMMENT: Quality ID [id number]: Final reports for procedures using fluoroscopy that document radiation exp osure indices, or exposure time and number of fluorographic images (if radiation exposure indices are not available) TECHNICAL DOCUMENTATION: JOB ID: [id number] 2010 [employer]- All Rights Reserved Reading location - IP/workstation name: [email or web address] [id number]
--- NOTE | 2020-06-03 19:27 | PDOC PROGRESS REPORT ---
Subjective Date:: 06/03/20 Subjective:: er admitting physician: "FREDDIE LAZO JR is a 60 year old male, past medical history of type 2 diabetes hypertension CHF narcotic dependence CKD who was recently discharged from [facility] April 19, 2020 after being admitted for 89 days secondary to acute respiratory failure from COVID pneumonia. He was discharged with a tracheostomy tube uncuffed. Before discharge he has been able to speak and eat and the plan was to eventually remove the tracheostomy at [facility]. Sent back to the emergency room for evaluation of shortness of breath. EMS was called by the facility because the patient was diaphoretic with a blood glucose of 30 staff administered 1 mg glucagon in a tube and a half of oral glucose prior to EMS arrival and recheck of blood glucose was 40. Upon EMS arrival patient was pale with diminished breath sounds so he was placed on 15 L O2 via nonrebreather O2 sats went up to 86% and blood glucose was 147 upon ED arrival. In the emergency room he apparently continued to be hypoxic hence a trach cuff was placed and he was put back on mechanical ventilation briefly. He was also noted to be hypotensive hence central line was placed by Dr. Jean-Baptiste. Patient was given IV fluids. Repeat chest x-ray showed improvement of his diffuse bibasilar opacities compared from previous chest x-ray. Dr. Chandler evaluated him in the ED who felt that he does not need ICU admission. He was given 4 L of IV fluids. He was eventually transitioned to tracheal collar and was maintaining his O2 saturation to 95%. Patient was then admitted for further management. WBC count 19.5 in the ED he was given 1 dose of aztreonam and vancomycin." Per Previous Physician: "05/14/2020 MUCOUS PLUGGING, ACUTE HYPOXIC RESPIRATORY FAILURE Patient was seen early on in rounds this morning. At the time patient was noted to sound congested. He however had been suctioned and apparently no further suctioning required at that time. I discussed with the patient the need to be able to give him medications either through an NG tube or PEG tube IV fluids or TPN or combination of all these however patient refused. Patient was new to me today and after discussing with the nurse I did find out that he had been refusing multiple modalities of treatment and management. About 30 minutes after saw this patient when he was still relatively stable a rapid response was called and apparently he went into respiratory distress. He was found to be hypoxic. By the time he got there he was cyanotic. His oxygen saturation was in the 60s also. He was 100% oxygen and his BiPAP setting was changed. Multiple attempts to oxygenate him failed. It was felt that patient will be better served in the intensive care unit. [employer] Certified Network Associate was informed and Came to assess patient. Patient was transferred to the unit. Please see Dr. Hernández's notes for further details chest x-ray obtained reveals diffuse opacification in the left chest possibly due to extensive infiltrate atelectasis collapse pleural effusion with improved aeration in the right lung base. This is consistent with his lung findings which shows grossly diminished air entry." 05/20/2020 Patient sent out of the ICU yesterday afternoon. Per my discussion with Dr. Chandler, patient has frequent mucous plugging and needs to be lavaged and suctioned by respiratory therapy frequently. It is likely the patient will continue mucous plugging intermittently and may need to be sent back to the ICU at some point. He has been maintained on trach collar with intermittent ventilatory support. Patient was asking for increases in his narcotics and I discussed the risks of respiratory depression if we were to pursue this. We will keep his narcotics at the current dosing and frequency for now. 05/21/2020 Patient had a episode of mucous plugging which resolved with aggressive lavage and suctioning by RT. Patient also had a problem with his NG feeding tube where it was somewhat displaced and nursing replaced this infected follow-up chest x- ray To confirm location. Blood culture on 05/09 remains negative. Latest chest x-ray shows diffuse bilateral disease which could potentially be worse. Patient is calm and resting today and does not have any new complaints. 05/22/2020 Patient appears rather calm today until I entered the room. He then wrote on his marker board and mouthed words to me stating he wants IV narcotics and IV sedatives. I discussed with him that adding these medications could be detrimental to his respiratory status. We will keep his pain medication as it is for now. I believe he is gradually improving as respiratory therapy is doing a great job lavaging and suctioning out large mucous plugs daily. Perhaps if we do enough of this every day, patient will be able to wean from the ventilator and tolerate trach collar alone. 05/23/2020 I had an extensive discussion with the patient today regarding PEG tube placement and he repeatedly stated he wanted to speak to the doctor and I repeatedly told him I am the doctor. I asked him if he would like me to get the surgeon involved to place a PEG tube. He refused to answer me at this point and did not seem interested in any my recommendations. We will ask respiratory therapy if he can get CPT to break up mucous plugs, continue lavaging and suctioning, and continue attempting to wean from the vent. Hemoglobin showed an acute drop down to 6.4 and this was rechecked to reveal 6.9. We will transfuse 1 unit PRBC which may help with his oxygenation as well. Will need to be mindful of the extra volume this will provide and watch for volume overload. Blood cell count is higher while hemoglobin and platelets are lower. Calcium is significantly lower we will replete this both IV and oral. 05/24/2020 Patient is resting comfortably today. He is off IV antibiotics and I have discontinued his IV Benadryl in place of Benadryl capsules that can go through his NG tube. We are still waiting on the patient to decide if he wants a PEG tube to be placed. It is my understanding that he cannot go to an acute care facility for rehab until he has a definitive feeding tube placed and he cannot go to a regular SNF while he is requiring the vent. If the patient wants a PEG tube or if we can wean him from the vent, disposition can move forward. Respiratory therapy will continue to lavage and suction the patient regularly and weaning from the ventilator. I discussed this with nursing. Hemoglobin is higher and potassium is lower today. His chest x-ray looks noticeably improved per my read. 05/25/2020 Patient fully awake and alert today and states repeatedly that he wants a PEG tube placed. He states that his pain after procedures is only well controlled on Dilaudid and I stated I would give him a low-dose of Dilaudid available as needed afterwards. I have consulted general surgery discussed case with Dr. Small who is agreed to consult on the patient. Patient will have his PEG tube placed tomorrow and will be n.p.o. at midnight tonight. Tube feeds will need to be held. We will make sure the patient has adequate pain control afterwards. Case management will need to start aggressively applying the patient for LTAC facilities starting on Wednesday. 05/26/2020 Patient successfully had PEG tube placed. He is having some additional pain I have increased the frequency of his IV Dilaudid. He understands we will begin tapering this tomorrow. Respiratory status is approximately the same as before. He still requiring frequent ventilator support. Latest blood cultures are negative. Plan is for patient to go to [facility] in the next few days if he is accepted. 05/27/2020 Patient states his pain is well controlled and he would like to start transitioning from IV narcotics to oral narcotics in anticipation of going to LTAC. I have switched his Dilaudid to oral I will leave a smaller dose available for breakthrough pain. Patient states he is motivated to perform more aggressive rehab and he knows that this cannot be accomplished inpatient. Patient's breathing is about the same as it was yesterday. Patient still requiring ventilator support. 05/28/20 Patient was seen and examined at bedside. Complains of pain lower abdomen however physical exam not consistent with the amount of pain he is complaining of. He is also requesting for more IV pain medications. He is status post PEG tube placement postop day 1 currently tolerating tube feedings. No significant change on his pulmonary status. 05/29/20 Patient was seen and examined at bedside. No new complains. Asking if he can have clear soup, I told him it would not be advisable now. He is asking for more IV pain medications as usual. 05/30/20 Patient seen and examined. Complaining of anxiety. I have increased his Buspar to 10 BID. Swallow eval for tomorrow. 05/31/20 Patient was seen and examined at bedside. He apparently refused swallow eval that was ordered today. But later when I rounded on him he claimed that did not even come. It has been noted before the he refuses a lot of therapeutic interventions. He is stable otherwise on mechanical ventilation. 06/01/20 Patient was seen and examined at bedside. he is again asking on when he can do a swallow eval. I have told him this will be done on wednesday. He was also asking if he has a medication for his anxiety and again I told him that he has Buspar BID. He should not be started on Xanax or any other benzo. 06/02/20 PAtient was seen and examined at bedside. He was asleep after receiving vistaril for anxiety. I have asked the respiratory therapist to try and wean him off with PSV. however he desaturates so he was put back on SIMV. 06/03/20 Patient was seen and examined at bedside. He still has episodes of anxiety and vistaril seems to have helped. He had just received his dilaudid prior to my visit hence he was very sleepy and did not want to talk much. He failed swallow eval today. Reason For Visit: MUCOUS PLUGGING, ACUTE HYPOXIC RESPIRATORY FAILURE Physical Exam Vital Signs: Temp Pulse Resp BP Pulse Ox 97.8 F 101 H 17 93/61 L 96 06/03/20 15:14 06/03/20 15:14 06/03/20 15:14 06/03/20 15:14 06/03/20 16:10 Intake & Output 06/02/20 06/03/20 06/04/20 06:59 06:59 06:59 Intake Total 1035 1515 501 Output Total 1325 610 200 Balance -290 905 301 Weight 80.8 kg 80.9 kg General appearance: PRESENT: no acute distress, cooperative Head exam: PRESENT: atraumatic, normocephalic Eye exam: PRESENT: EOMI, PERRLA Mouth exam: PRESENT: moist Neck exam: PRESENT: full ROM, tracheostomy Respiratory exam: PRESENT: rales, symmetrical, unlabored, other - on SIMV vent settings Cardiovascular exam: PRESENT: RRR, +S1, +S2 Pulses: PRESENT: +2 pedal pulses bilateral GI/Abdominal exam: PRESENT: normal bowel sounds, soft. ABSENT: rebound, tenderness Extremities exam: PRESENT: +1 edema Musculoskeletal exam: PRESENT: other - muscle atrophy on lower extremities Neurological exam: PRESENT: alert, awake, oriented to person, oriented to place, oriented to time Psychiatric exam: PRESENT: normal mood Results Laboratory Results: 06/01/20 05:50 06/03/20 12:00 06/03/20 12:00 Sodium 139.4 Potassium 5.1 H Chloride 103 Carbon Dioxide 35 H Anion Gap 1 L BUN 20 Creatinine 0.74 Est GFR ( Amer) > 60 Glucose 150 H Calcium 8.1 L Total Bilirubin 0.2 AST 10 L Alkaline Phosphatase 118 Total Protein 5.3 L Albumin 1.9 L 04/20/20 04/23/20 04/23/20 09:00 01:55 01:55 Creatine Kinase < 20 L CK-MB (CK-2) 2.20 Troponin I < 0.012 0.082 NT-Pro-B Natriuret Pep 16722 H 04/23/20 04/23/20 04/23/20 05:58 08:22 14:50 Creatine Kinase < 20 L < 20 L CK-MB (CK-2) 2.24 Troponin I 0.066 NT-Pro-B Natriuret Pep 04/23/20 14:50 Creatine Kinase CK-MB (CK-2) 2.09 Troponin I 0.057 NT-Pro-B Natriuret Pep Impressions: PICC Line Insertion 05/07/20 00:00 IMPRESSION: SUCCESSFUL PLACEMENT OF A 5 FR DUAL LUMEN 47 CM PICC IN THE LEFT BRACHIOCEPHALIC VEIN. KUB X-Ray 05/16/20 11:57 IMPRESSION: NG tube as described. Findings as described. Chest X-Ray 05/25/20 00:00 IMPRESSION: No improvement in the diffuse opacities likely covid 19. SUPPORT DEVICE(S) IN EXPECTED LOCATIONS. Modified Barium Swallow 06/03/20 00:00 IMPRESSION: LARYNGEAL PENETRATION AND ASPIRATION ABOVE. HE WAS PLEASE SEE SPEECH PATHOLOGIST REPORT FOR OTHER FINDINGS AND RECOMMENDATIONS. Assessment and Plan - Diagnosis (1) Anxiety about health Is this a current diagnosis for this admission?: Yes Plan: - has frequent attacks of anxiety - on buspar 10 BID - vistaril seems to help him during acute bouts - would avoid starting him on benzo (2) Respiratory failure, [id number] Qualifiers: Respiratory failure complication: hypoxia Qualified Code(s): J96.21 - Acute and chronic respiratory failure with hypoxia Is this a current diagnosis for this admission?: Yes Plan: -Has a trach and on mechanical ventilation -weaning trial yesterday he desaturated. today he was mildly hypotensive so weaning trial held -Awaiting LTAC placement (3) Leukocytosis Qualifiers: Leukocytosis type: unspecified Qualified Code(s): D72.829 - Elevated white blood cell count, unspecified Is this a current diagnosis for this admission?: Yes Plan: --WBC 13.5>16.2 - has completed multiple courses of abx so I am less inclined to start him on any medications unless he spikes a fever or takes a turn for the worse - afebrile. His BP was soft today. If he continues with his low normal BP will do blood culture and consider starting him on abx - will CTM. (4) COVID-19 Is this a current diagnosis for this admission?: Yes Plan: -resolved but patient has suffered significant co morbidity from it - no indication to retest - continue vent support. Wean as tolerated (5) Critical illness myopathy Is this a current diagnosis for this admission?: Yes Plan: -2/2 ICU and prolonged hospital stay - would need extensive rehab given that he has already been in the hospital for 3 months or more (6) Dysphagia Qualifiers: Dysphagia type: oropharyngeal phase Qualified Code(s): R13.12 - Dysphagia, oropharyngeal phase Is this a current diagnosis for this admission?: Yes Plan: - has finally agreed for PEG tube -Requesting to have clear soup by mouth -Failed swallow eval 06/03/20 - currently receiving feeding via PEG with free water flushes - Na stable (7) Bacteremia due to Enterococcus Is this a current diagnosis for this admission?: Yes Plan: - completed antibiotics treatment (8) MSSA bacteremia Is this a current diagnosis for this admission?: Yes Plan: completed treatment (9) Hyperglycemia due to type 2 diabetes mellitus Qualifiers: 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: with termite technician use Qualified Code(s): E11.65 - Type 2 diabetes mellitus with hyperglycemia; 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 Dilaudid and as needed IV Dilaudid for severe pain -We will not give her more narcotics (13) Debility Is this a current diagnosis for this admission?: Yes Plan: Needs LTAC placement (14) Dependent on ventilator Is this a current diagnosis for this admission?: Yes - Time Time Spent with patient: 25-34 minutes Anticipated Discharge Disposition: [facility] Anticipated Discharge Timeframe: tbd
[2020-06-04] MEDS: DIPHENHYDRAMINE HCL 50 MG/ML VIAL IV PRN ×4 (00:05→18:40)
[2020-06-04] MEDS: HYDROMORPHONE HCL INJ/PF 2 MG/ML AMPULE IV PRN ×7 (00:05→20:31)
[2020-06-04] MEDS: IPRATROPIUM/ALBUTEROL 0.5-2.5 MG/3 ML AMPUL NEB PRN (00:27)
[2020-06-04] MEDS: INSULIN REG, HUMAN 100 UNIT/ML 3 ML VIAL (PYX) SUBCUT SCH ×4 (00:41→18:00)
[2020-06-04] MEDS ORDERED: HYDROXYZINE HCL INJ 50 MG/1 ML VIAL IM ONE (05:15)
[2020-06-04] MEDS: METOCLOPRAMIDE HCL INJ/PF 10 MG/2 ML SDV IV SCH ×3 (05:39→23:22)
[2020-06-04] MEDS: POTASSIUM CHLORIDE 20 MEQ PACKET PEG SCH (08:26)
[2020-06-04] MEDS: BUSPIRONE HCL 10 MG TABLET PEG SCH ×2 (09:42→17:48)
[2020-06-04] MEDS: CALCIUM CARBONATE 500 MG TAB.CHEW PEG SCH ×2 (09:42→17:48)
[2020-06-04] MEDS: NIFEDIPINE 30 MG TAB.ER.24 PO SCH (10:04)
[2020-06-04] MEDS: PROMETHAZINE HCL INJ 25 MG/1 ML VIAL IV PRN ×2 (17:44→23:22)
--- NOTE | 2020-06-04 20:33 | PDOC PROGRESS REPORT ---
Subjective Subjective:: er admitting physician: "FREDDIE LAZO JR is a 60 year old male, past medical history of type 2 diabetes hypertension CHF narcotic dependence CKD who was recently discharged from [facility] April 19, 2020 after being admitted for 89 days secondary to acute respiratory failure from COVID pneumonia. He was discharged with a tracheostomy tube uncuffed. Before discharge he has been able to speak and eat and the plan was to eventually remove the tracheostomy at [facility]. Sent back to the emergency room for evaluation of shortness of breath. EMS was called by the facility because the patient was diaphoretic with a blood glucose of 30 staff administered 1 mg glucagon in a tube and a half of oral glucose prior to EMS arrival and recheck of blood glucose was 40. Upon EMS arrival patient was pale with diminished breath sounds so he was placed on 15 L O2 via nonrebreather O2 sats went up to 86% and blood glucose was 147 upon ED arrival. In the emergency room he apparently continued to be hypoxic hence a trach cuff was placed and he was put back on mechanical ventilation briefly. He was also noted to be hypotensive hence central line was placed by Dr. Jean-Baptiste. Patient was given IV fluids. Repeat chest x-ray showed improvement of his diffuse bibasilar opacities compared from previous chest x-ray. Dr. Chandler evaluated him in the ED who felt that he does not need ICU admission. He was given 4 L of IV fluids. He was eventually transitioned to tracheal collar and was maintaining his O2 saturation to 95%. Patient was then admitted for further management. WBC count 19.5 in the ED he was given 1 dose of aztreonam and vancomycin." Per Previous Physician: "05/14/2020 MUCOUS PLUGGING, ACUTE HYPOXIC RESPIRATORY FAILURE Patient was seen early on in rounds this morning. At the time patient was noted to sound congested. He however had been suctioned and apparently no further suctioning required at that time. I discussed with the patient the need to be able to give him medications either through an NG tube or PEG tube IV fluids or TPN or combination of all these however patient refused. Patient was new to me today and after discussing with the nurse I did find out that he had been refusing multiple modalities of treatment and management. About 30 minutes after saw this patient when he was still relatively stable a rapid response was called and apparently he went into respiratory distress. He was found to be hypoxic. By the time he got there he was cyanotic. His oxygen saturation was in the 60s also. He was 100% oxygen and his BiPAP setting was changed. Multiple attempts to oxygenate him failed. It was felt that patient will be better served in the intensive care unit. Polysomnograph Tech was informed and Came to assess patient. Patient was transferred to the unit. Please see Dr. Hernández's notes for further details chest x-ray obtained reveals diffuse opaci fication in the left chest possibly due to extensive infiltrate atelectasis collapse pleural effusion with improved aeration in the right lung base. This is consistent with his lung findings which shows grossly diminished air entry." 05/20/2020 Patient sent out of the ICU yesterday afternoon. Per my discussion with Dr. Chandler, patient has frequent mucous plugging and needs to be lavaged and suc tioned by respiratory therapy frequently. It is likely the patient will continue mucous plugging intermittently and may need to be sent back to the ICU at some point. He has been maintained on trach collar with intermittent ventilatory support. Patient was asking for increases in his narcotics and I discussed the risks of respiratory depression if we were to pursue this. We will keep his narcotics at the current dosing and frequency for now. 05/21/2020 Patient had a episode of mucous plugging which resolved with aggressive lavage and suctioning by RT. Patient also had a problem with his NG feeding tube where it was somewhat displaced and nursing replaced this infected follow-up chest x- ray To confirm location. Blood culture on 05/09 remains negative. Latest chest x-ray shows diffuse bilateral disease which could potentially be worse. Patient is calm and resting today and does not have any new complaints. 05/22/2020 Patient appears rather calm today until I entered the room. He then wrote on his marker board and mouthed words to me stating he wants IV narcotics and IV sedatives. I discussed with him that adding these medications could be detrimental to his respiratory status. We will keep his pain medication as it is for now. I believe he is gradually improving as respiratory therapy is doing a great job lavaging and suctioning out large mucous plugs daily. Perhaps if we do enough of this every day, patient will be able to wean from the ventilator and tolerate trach collar alone. 05/23/2020 I had an extensive discussion with the patient today regarding PEG tube placement and he repeatedly stated he wanted to speak to the doctor and I repeatedly told him I am the doctor. I asked him if he would like me to get the surgeon involved to place a PEG tube. He refused to answer me at this point and did not seem interested in any my recommendations. We will ask respiratory therapy if he can get CPT to break up mucous plugs, continue lavaging and suctioning, and continue attempting to wean from the vent. Hemoglobin showed an acute drop down to 6.4 and this was rechecked to reveal 6.9. We will transfuse 1 unit PRBC which may help with his oxygenation as well. Will need to be mindful of the extra volume this will provide and watch for volume overload. Blood cell count is higher while hemoglobin and platelets are lower. Calcium is significantly lower we will replete this both IV and oral. 05/24/2020 Patient is resting comfortably today. He is off IV antibiotics and I have discontinued his IV Benadryl in place of Benadryl capsules that can go through his NG tube. We are still waiting on the patient to decide if he wants a PEG tube to be placed. It is my understanding that he cannot go to an acute care facility for rehab until he has a definitive feeding tube placed and he cannot go to a regular SNF while he is requiring the vent. If the patient wants a PEG tube or if we can wean him from the vent, disposition can move forward. Respira tory therapy will continue to lavage and suction the patient regularly and weaning from the ventilator. I discussed this with nursing. Hemoglobin is higher and potassium is lower today. His chest x-ray looks noticeably improved per my read. 05/25/2020 Patient fully awake and alert today and states repeatedly that he wants a PEG tube placed. He states that his pain after procedures is only well controlled on Dilaudid and I stated I would give him a low-dose of Dilaudid available as needed afterwards. I have consulted general surgery discussed case with Dr. Small who is agreed to consult on the patient. Patient will have his PEG tube placed tomorrow and will be n.p.o. at midnight tonight. Tube feeds will need to be held. We will make sure the patient has adequate pain control afterwards. Case management will need to start aggressively applying the patient for LTAC facilities starting on Wednesday. 05/26/2020 Patient successfully had PEG tube placed. He is having some additional pain I have increased the frequency of his IV Dilaudid. He understands we will begin tapering this tomorrow. Respiratory status is approximately the same as before. He still requiring frequent ventilator support. Latest blood cultures are negative. Plan is for patient to go to [facility] in the next few days if he is accepted. 05/27/2020 Patient states his pain is well controlled and he would like to start transitioning from IV narcotics to oral narcotics in anticipation of going to LTAC. I have switched his Dilaudid to oral I will leave a smaller dose available for breakthrough pain. Patient states he is motivated to perform more aggressive rehab and he knows that this cannot be accomplished inpatient. Patient's breathing is about the same as it was yesterday. Patient still requiring ventilator support. 05/28/20 Patient was seen and examined at bedside. Complains of pain lower abdomen however physical exam not consistent with the amount of pain he is complaining of. He is also requesting for more IV pain medications. He is status post PEG tube placement postop day 1 currently tolerating tube feedings. No significant change on his pulmonary status. 05/29/20 Patient was seen and examined at bedside. No new complains. Asking if he can have clear soup, I told him it would not be advisable now. He is asking for more IV pain medications as usual. 05/30/20 Patient seen and examined. Complaining of anxiety. I have increased his Buspar to 10 BID. Swallow eval for tomorrow. 05/31/20 Patient was seen and examined at bedside. He apparently refused swallow eval that was ordered today. But later when I rounded on him he claimed that did not even come. It has been noted before the he refuses a lot of therapeutic interventions. He is stable otherwise on mechanical ventilation. 06/01/20 Patient was seen and examined at bedside. he is again asking on when he can do a swallow eval. I have told him this will be done on wednesday. He was also asking if he has a medication for his anxiety and again I told him that he has Buspar BID. He should not be started on Xanax or any other benzo. 06/02/20 PAtient was seen and examined at bedside. He was asleep after receiving vistaril for anxiety. I have asked the respiratory therapist to try and wean him off with PSV. however he desaturates so he was put back on SIMV. 06/03/20 Patient was seen and examined at bedside. He still has episodes of anxiety and vistaril seems to have helped. He had just received his dilaudid prior to my visit hence he was very sleepy and did not want to talk much. He failed swallow eval today. 06/04/20 Patient was seen and examined at bedside. No new complains, had PT today. Afebrile. PEG tube feeding on going. Reason For Visit: MUCOUS PLUGGING, ACUTE HYPOXIC RESPIRATORY FAILURE Physical Exam Vital Signs: Temp Pulse Resp BP Pulse Ox 97.8 F 91 17 97/60 L 97 06/04/20 10:00 06/04/20 14:00 06/04/20 05:43 06/04/20 05:43 06/04/20 16:00 Intake & Output 06/03/20 06/04/20 06/05/20 06:59 06:59 06:59 Intake Total 1515 1225 582 Output Total 610 425 420 Balance 905 800 162 Weight 80.9 kg 84.6 kg General appearance: PRESENT: no acute distress, cooperative Head exam: PRESENT: atraumatic, normocephalic Eye exam: PRESENT: EOMI, PERRLA Neck exam: PRESENT: full ROM, tracheostomy Respiratory exam: PRESENT: chest wall tenderness, symmetrical, unlabored Cardiovascular exam: PRESENT: RRR, +S1, +S2 GI/Abdominal exam: PRESENT: normal bowel sounds, soft. ABSENT: rebound, tenderness Extremities exam: PRESENT: +2 edema Musculoskeletal exam: ABSENT: deformity, dislocation Neurological exam: PRESENT: alert, awake, oriented to person, oriented to place, oriented to time, oriented to situation Psychiatric exam: PRESENT: normal mood Skin exam: PRESENT: normal color Results Laboratory Results: 06/01/20 05:50 06/03/20 12:00 04/20/20 04/23/20 04/23/20 09:00 01:55 01:55 Creatine Kinase < 20 L CK-MB (CK-2) 2.20 Troponin I < 0.012 0.082 NT-Pro-B Natriuret Pep [id number] H 04/23/20 04/23/20 04/23/20 05:58 08:22 14:50 Creatine Kinase < 20 L < 20 L CK-MB (CK-2) 2.24 Troponin I 0.066 NT-Pro-B Natriuret Pep 04/23/20 14:50 Creatine Kinase CK-MB (CK-2) 2.09 Troponin I 0.057 NT-Pro-B Natriuret Pep Impressions: PICC Line Insertion 05/07/20 00:00 IMPRESSION: SUCCESSFUL PLACEMENT OF A 5 FR DUAL LUMEN 47 CM PICC IN THE LEFT BRACHIOCEPHALIC VEIN. KUB X-Ray 05/16/20 11:57 IMPRESSION: NG tube as described. Findings as described. Chest X-Ray 05/25/20 00:00 IMPRESSION: No improvement in the diffuse opacities likely covid 19. SUPPORT DEVICE(S) IN EXPECTED LOCATIONS. Modified Barium Swallow 06/03/20 00:00 IMPRESSION: LARYNGEAL PENETRATION AND ASPIRATION ABOVE. HE WAS PLEASE SEE SPEECH PATHOLOGIST REPORT FOR OTHER FINDINGS AND RECOMMENDATIONS. Assessment and Plan - Diagnosis (1) Anxiety about health Is this a current diagnosis for this admission?: Yes Plan: - has frequent attacks of anxiety - on buspar 10 BID - vistaril seems to help him during acute bouts. Started on 26 IM q8 PRN - would avoid starting him on benzo (2) Respiratory failure, [id number] Qualifiers: Respiratory failure complication: hypoxia Qualified Code(s): J96.21 - Acute and chronic respiratory failure with hypoxia Is this a current diagnosis for this admission?: Yes Plan: -Has a trach and on mechanical ventilation -weaning trial yesterday failed today. -Awaiting LTAC placement (3) Leukocytosis Qualifiers: Leukocytosis type: unspecified Qualified Code(s): D72.829 - Elevated white blood cell count, unspecified Is this a current diagnosis for this admission?: Yes Plan: --WBC 13.5>16.2 - has completed multiple courses of abx so I am less inclined to start him on any medications unless he spikes a fever or takes a turn for the worse - afebrile. His BP was soft today. If he continues with his low normal BP will do blood culture and consider starting him on abx - will CTM. (4) COVID-19 Is this a current diagnosis for this admission?: Yes Plan: -resolved but patient has suffered significant co morbidity from it - no indication to retest - continue vent support. Wean as tolerated (5) Critical illness myopathy Is this a current diagnosis for this admission?: Yes Plan: -2/2 ICU and prolonged hospital stay - would need extensive rehab given that he has already been in the hospital for 3 months or more (6) Dysphagia Qualifiers: Dysphagia type: oropharyngeal phase Qualified Code(s): R13.12 - Dysphagia, oropharyngeal phase Is this a current diagnosis for this admission?: Yes Plan: - has finally agreed for PEG tube -Requesting to have clear soup by mouth -Failed swallow eval 06/03/20 - currently receiving feeding via PEG with free water flushes - Na stable (7) Bacteremia due to Enterococcus Is this a current diagnosis for this admission?: Yes Plan: - completed antibiotics treatment (8) MSSA bacteremia Is this a current diagnosis for this admission?: Yes Plan: completed treatment (9) Hyperglycemia due to type 2 diabetes mellitus Qualifiers: Diabetes mellitus nursing home insulin use: with salvage determiner use Qualified Code(s): E11.65 - Type 2 diabetes mellitus with hyperglycemia; Z79.4 - alf (current) use of insulin Is this a current diagnosis for this admission?: Yes Plan: - currently on scheduled insulin (10) Acute kidney injury superimposed on chronic kidney disease Is this a current diagnosis for this admission?: Yes Plan: - crea stable (11) Acute metabolic encephalopathy Is this a current diagnosis for this admission?: Yes Plan: Resolved (12) Chronic pain Qualifiers: Chronic pain type: other chronic pain Qualified Code(s): G89.29 - Other chronic pain Is this a current diagnosis for this admission?: Yes Plan: On p.o. Dilaudid and as needed IV Dilaudid for severe pain -We will not give her more narcotics (13) Debility Is this a current diagnosis for this admission?: Yes Plan: Needs LTAC placement (14) Dependent on ventilator Is this a current diagnosis for this admission?: Yes - Plan Summary Summary: According to cyber policy and strategy planner [facility] is looking into his case. Last LTAC placement evaluated him rejected him because according to them he does not have a clear disposition if he ever gets discharge from an LTAC. - Time Time Spent with patient: 15-24 minutes Medications reviewed and adjusted accordingly: Yes Anticipated Discharge Disposition: [facility] Anticipated Discharge Timeframe: tbd
[2020-06-04] MEDS ORDERED: POLYETHYLENE GLYCOL 3350 POWDER 17 GM/1 PACKET PEG ONE (21:00)
[2020-06-05] MEDS: HYDROXYZINE HCL INJ 50 MG/1 ML VIAL IM PRN ×2 (00:18→16:28)
[2020-06-05] MEDS: INSULIN REG, HUMAN 100 UNIT/ML 3 ML VIAL (PYX) SUBCUT SCH ×4 (00:23→17:17)
[2020-06-05] MEDS: HYDROMORPHONE HCL INJ/PF 2 MG/ML AMPULE IV PRN ×4 (00:38→20:10)
[2020-06-05] MEDS: IPRATROPIUM/ALBUTEROL 0.5-2.5 MG/3 ML AMPUL NEB PRN ×2 (04:57→08:37)
[2020-06-05] MEDS: METOCLOPRAMIDE HCL INJ/PF 10 MG/2 ML SDV IV SCH ×3 (06:11→22:41)
[2020-06-05] MEDS: DIPHENHYDRAMINE HCL 50 MG/ML VIAL IV PRN ×2 (06:12→18:14)
[2020-06-05] MEDS: HYDROMORPHONE HCL 2 MG TABLET PEG PRN (09:09)
[2020-06-05] MEDS: BUSPIRONE HCL 10 MG TABLET PEG SCH ×2 (09:09→17:59)
[2020-06-05] MEDS: NIFEDIPINE 30 MG TAB.ER.24 PO SCH (09:10)
[2020-06-05] MEDS: CALCIUM CARBONATE 500 MG TAB.CHEW PEG SCH ×2 (09:10→17:59)
[2020-06-05] MEDS ORDERED: HYDROMORPHONE HCL INJ/PF 2 MG/ML AMPULE IV ONE (10:22)
[2020-06-05] MEDS ORDERED: SIMETHICONE 80 MG TAB.CHEW PO PRN (10:23)
[2020-06-05] MEDS: PROMETHAZINE HCL INJ 25 MG/1 ML VIAL IV PRN (13:29)
[2020-06-05] MEDS: MORPHINE SULFATE 10 MG/5 ML ORAL SOLUTION UDCUP PO PRN ×3 (14:57→23:09)
--- NOTE | 2020-06-05 15:30 | PDOC PROGRESS REPORT ---
Subjective Subjective:: Patient seen on morning rounds. Currently on ventilatory support via trach collar. He does report so shortness of breath and a productive cough. He complains of continued pain; requests to adjust pain medication. He is agreeable to trial of Morphine via PEG; does not feel that oral dilaudid has been effective. Otherwise, he has no new questions or concerns. He denies fever, chills, chest pain, abd pain, nausea and vomiting. Nursing reports a lot of gas when checking residuals. Reason For Visit: MUCOUS PLUGGING, ACUTE HYPOXIC RESPIRATORY FAILURE Physical Exam Vital Signs: Temp Pulse Resp BP Pulse Ox 98.1 F 99 20 110/76 97 06/05/20 12:54 06/05/20 12:54 06/05/20 12:54 06/05/20 12:54 06/05/20 13:40 Intake & Output 06/04/20 06/05/20 06/06/20 06:59 06:59 06:59 Intake Total 1225 983 Output Total 425 620 Balance 800 363 Weight 84.6 kg 83.2 kg General appearance: PRESENT: no acute distress, cooperative, well-developed, other - generalized edema Head exam: PRESENT: atraumatic, normocephalic Eye exam: PRESENT: conjunctiva pink, EOMI, PERRLA. ABSENT: scleral icterus Mouth exam: PRESENT: moist, tongue midline Teeth exam: PRESENT: poor dentation Neck exam: PRESENT: tracheostomy Respiratory exam: PRESENT: rhonchi - bilateral, symmetrical, unlabored, other - supplemental oxygen by vent to traceostomy. ABSENT: rales, wheezes Cardiovascular exam: PRESENT: RRR. ABSENT: diastolic murmur, rubs, systolic murmur Pulses: PRESENT: normal dorsalis pedis pul Vascular exam: PRESENT: normal capillary refill GI/Abdominal exam: PRESENT: normal bowel sounds, soft, other - PEG. ABSENT: distended, guarding, mass, organolmegaly, rebound, tenderness Rectal exam: PRESENT: deferred Extremities exam: PRESENT: full ROM. ABSENT: calf tenderness, clubbing, pedal edema Neurological exam: PRESENT: alert, awake, oriented to person, oriented to place, oriented to time, oriented to situation, CN II-XII grossly intact. ABSENT: motor sensory deficit Psychiatric exam: PRESENT: appropriate affect, normal mood. ABSENT: homicidal ideation, suicidal ideation Skin exam: PRESENT: dry, intact, warm. ABSENT: cyanosis, rash Results Laboratory Results: 06/01/20 05:50 06/03/20 12:00 04/20/20 04/23/20 04/23/20 09:00 01:55 01:55 Creatine Kinase < 20 L CK-MB (CK-2) 2.20 Troponin I < 0.012 0.082 NT-Pro-B Natriuret Pep [id number] H 04/23/20 04/23/20 04/23/20 05:58 08:22 14:50 Creatine Kinase < 20 L < 20 L CK-MB (CK-2) 2.24 Troponin I 0.066 NT-Pro-B Natriuret Pep 04/23/20 14:50 Creatine Kinase CK-MB (CK-2) 2.09 Troponin I 0.057 NT-Pro-B Natriuret Pep Impressions: PICC Line Insertion 05/07/20 00:00 IMPRESSION: SUCCESSFUL PLACEMENT OF A 5 FR DUAL LUMEN 47 CM PICC IN THE LEFT BRACHIOCEPHALIC VEIN. KUB X-Ray 05/16/20 11:57 IMPRESSION: NG tube as described. Findings as described. Chest X-Ray 05/25/20 00:00 IMPRESSION: No improvement in the diffuse opacities likely covid 19. SUPPORT DEVICE(S) IN EXPECTED LOCATIONS. Modified Barium Swallow 06/03/20 00:00 IMPRESSION: LARYNGEAL PENETRATION AND ASPIRATION ABOVE. HE WAS PLEASE SEE SPEECH PATHOLOGIST REPORT FOR OTHER FINDINGS AND RECOMMENDATIONS. Assessment and Plan - Diagnosis (1) Anxiety about health Is this a current diagnosis for this admission?: Yes Plan: - has frequent attacks of anxiety - on buspar 10 BID - vistaril seems to help him during acute bouts. Started on 26 IM q8 PRN - would avoid starting him on benzo (2) Acute on chronic respiratory failure with hypoxia and hypercapnia Is this a current diagnosis for this admission?: Yes Plan: -Has a trach and on mechanical ventilation -will continue weaning trials. -Awaiting LTAC placement (3) Bacteremia due to Enterococcus Is this a current diagnosis for this admission?: Yes Plan: - completed antibiotics treatment (4) Diabetes Qualifiers: Diabetes mellitus type: type 2 Is this a current diagnosis for this admission?: Yes Plan: Controlled Accu-chek q6h with [employer] general sales manager consulted. (5) Malnutrition Qualifiers: Malnutrition type: protein-calorie malnutrition Protein-calorie malnutrition severity: severe Qualified Code(s): E43 - Unspecified severe protein-calorie malnutrition Is this a current diagnosis for this admission?: Yes Plan: Improving Now on Tube Feeds RD following. (6) Tracheostomy in place Is this a current diagnosis for this admission?: Yes Plan: Continue tracheostomy care. Aggressive pulmonary toileting. (7) Acute kidney injury superimposed on chronic kidney disease Is this a current diagnosis for this admission?: Yes Plan: Resolved. - crea stable (8) Chronic pain Qualifiers: Chronic pain type: other chronic pain Qualified Code(s): G89.29 - Other chronic pain Is this a current diagnosis for this admission?: Yes Plan: Discussed w/ patient today. Agreeable to trial of oral morphine; does not feel oral dilaudid is effective. Goal to transition from IV to oral (PEG) only management for pain. Low threshold for pain management consultation if morphine is not effective or patient become resistant to transition. (9) COVID-19 Is this a current diagnosis for this admission?: Yes Plan: -resolved but patient has suffered significant comorbidity from it - no indication to retest - continue vent support. Wean as tolerated (10) Critical illness myopathy Is this a current diagnosis for this admission?: Yes Plan: -2/2 ICU and prolonged hospital stay - would need extensive rehab given that he has already been in the hospital for 3 months or more PT/OT/ST consulted (11) Debility Is this a current diagnosis for this admission?: Yes Plan: PT/OT/ST consulted Needs LTAC placement (12) Dependent on ventilator Is this a current diagnosis for this admission?: Yes (13) Dysphagia Qualifiers: Dysphagia type: oropharyngeal phase Qualified Code(s): R13.12 - Dysphagia, oropharyngeal phase Is this a current diagnosis for this admission?: Yes Plan: Now with PEG -Failed swallow eval 06/03/20 - currently receiving feeding via PEG with free water flushes - Na stable general sales manager consulted for TF and water recommendations. Nursing reports concern for high volume of gas when checking residuals. (14) Leukocytosis Qualifiers: Leukocytosis type: unspecified Qualified Code(s): D72.829 - Elevated white blood cell count, unspecified Is this a current diagnosis for this admission?: Yes Plan: --WBC 13.5>16.2 - has completed multiple courses of abx so I am less inclined to start him on any medications unless he spikes a fever or takes a turn for the worse - afebrile. His BP was soft today. If he continues with his low normal BP will do blood culture and consider starting him on abx - will CTM. Patient refusing follow-up lab work. (15) MSSA bacteremia Is this a current diagnosis for this admission?: Yes Plan: completed treatment (16) Bilateral pneumonia Qualifiers: Pneumonia type: aspiration pneumonia Lung location: lower lobe of lung Is this a current diagnosis for this admission?: Yes Plan: Resolved. (17) Acute metabolic encephalopathy Is this a current diagnosis for this admission?: Yes Plan: Resolved (18) Medical non-compliance Is this a current diagnosis for this admission?: Yes (19) Candiduria Is this a current diagnosis for this admission?: Yes Plan: Resolved. - Time Time Spent with patient: 35 or more minutes Medications reviewed and adjusted accordingly: Yes Anticipated Discharge Disposition: [facility] Anticipated Discharge Timeframe: when bed available
[2020-06-06] MEDS: INSULIN REG, HUMAN 100 UNIT/ML 3 ML VIAL (PYX) SUBCUT SCH ×4 (00:05→18:32)
[2020-06-06] MEDS: HYDROXYZINE HCL INJ 50 MG/1 ML VIAL IM PRN ×3 (01:00→20:02)
[2020-06-06] MEDS: HYDROMORPHONE HCL INJ/PF 2 MG/ML AMPULE IV PRN ×3 (05:14→23:18)
[2020-06-06] MEDS: DIPHENHYDRAMINE HCL 50 MG/ML VIAL IV PRN ×2 (06:04→19:56)
[2020-06-06] MEDS: METOCLOPRAMIDE HCL INJ/PF 10 MG/2 ML SDV IV SCH ×3 (06:04→21:35)
[2020-06-06] MEDS: CALCIUM CARBONATE 500 MG TAB.CHEW PEG SCH ×2 (09:20→17:22)
[2020-06-06] MEDS: BUSPIRONE HCL 10 MG TABLET PEG SCH ×2 (09:20→17:21)
[2020-06-06] MEDS: NIFEDIPINE 30 MG TAB.ER.24 PO SCH (09:21)
[2020-06-06] MEDS: POTASSIUM CHLORIDE 20 MEQ PACKET PEG SCH (09:23)
[2020-06-06] MEDS: IPRATROPIUM/ALBUTEROL 0.5-2.5 MG/3 ML AMPUL NEB PRN ×3 (09:24→21:45)
[2020-06-06] MEDS: MORPHINE SULFATE 10 MG/5 ML ORAL SOLUTION UDCUP PO PRN ×2 (13:14→21:35)
--- NOTE | 2020-06-06 15:37 | PDOC PROGRESS REPORT ---
Subjective Date:: 06/06/20 Subjective:: Patient seen on morning rounds. Currently on ventilatory support via trach collar. He does report some shortness of breath and a productive cough; states this is unchanged from yesterday. He complains of continued pain; states the "IV works better" Nursing did inform me that patient did well w/ liquid morphine via peg yesterday with long periods of rest/comfort. Offered pain management consultation; patient declines. Otherwise, he has no new questions or concerns. He denies fever, chills, chest pain, abd pain, nausea and vomiting. Nursing reports a lot of gas when checking residuals. Did discuss w/ wildlife biostation research ecologist today; trial of new TF. Reason For Visit: MUCOUS PLUGGING, ACUTE HYPOXIC RESPIRATORY FAILURE Physical Exam Vital Signs: Temp Pulse Resp BP Pulse Ox 97.8 F 104 H 20 130/87 H 92 06/06/20 10:00 06/06/20 15:20 06/06/20 15:20 06/06/20 03:15 06/06/20 15:20 Intake & Output 06/05/20 06/06/20 06/07/20 06:59 06:59 06:59 Intake Total 983 383 Output Total 620 550 Balance 363 -167 Weight 83.2 kg 86.2 kg 86.2 kg General appearance: PRESENT: no acute distress, cooperative, well-developed, well-nourished, other - generalized edema Head exam: PRESENT: atraumatic, normocephalic Eye exam: PRESENT: conjunctiva pink, EOMI, PERRLA. ABSENT: scleral icterus Mouth exam: PRESENT: moist, tongue midline Teeth exam: PRESENT: poor dentation Neck exam: PRESENT: tracheostomy. ABSENT: carotid bruit, JVD, lymphadenopathy, thyromegaly Respiratory exam: PRESENT: rhonchi - bilaterally, symmetrical, unlabored, other - supplemental oxygen by vent to traceostomy. ABSENT: rales, wheezes Cardiovascular exam: PRESENT: RRR. ABSENT: diastolic murmur, rubs, systolic murmur Vascular exam: PRESENT: normal capillary refill Extremities exam: ABSENT: calf tenderness, clubbing, pedal edema Neurological exam: PRESENT: alert, awake, oriented to person, oriented to place, oriented to time, oriented to situation, CN II-XII grossly intact. ABSENT: motor sensory deficit Psychiatric exam: PRESENT: appropriate affect, normal mood. ABSENT: homicidal ideation, suicidal ideation Skin exam: PRESENT: dry, warm, other - stage II to sacrum. ABSENT: cyanosis, intact, rash Results Laboratory Results: 06/01/20 05:50 06/03/20 12:00 04/20/20 04/23/20 04/23/20 09:00 01:55 01:55 Creatine Kinase < 20 L CK-MB (CK-2) 2.20 Troponin I < 0.012 0.082 NT-Pro-B Natriuret Pep 54042 H 04/23/20 04/23/20 04/23/20 05:58 08:22 14:50 Creatine Kinase < 20 L < 20 L CK-MB (CK-2) 2.24 Troponin I 0.066 NT-Pro-B Natriuret Pep 04/23/20 14:50 Creatine Kinase CK-MB (CK-2) 2.09 Troponin I 0.057 NT-Pro-B Natriuret Pep Impressions: PICC Line Insertion 05/07/20 00:00 IMPRESSION: SUCCESSFUL PLACEMENT OF A 5 FR DUAL LUMEN 47 CM PICC IN THE LEFT BRACHIOCEPHALIC VEIN. KUB X-Ray 05/16/20 11:57 IMPRESSION: NG tube as described. Findings as described. Chest X-Ray 05/25/20 00:00 IMPRESSION: No improvement in the diffuse opacities likely covid 19. SUPPORT DEVICE(S) IN EXPECTED LOCATIONS. Modified Barium Swallow 06/03/20 00:00 IMPRESSION: LARYNGEAL PENETRATION AND ASPIRATION ABOVE. HE WAS PLEASE SEE [facility] PATHOLOGIST REPORT FOR OTHER FINDINGS AND RECOMMENDATIONS. Assessment and Plan - Diagnosis (1) Anxiety about health Is this a current diagnosis for this admission?: Yes Plan: - has frequent attacks of anxiety - on buspar 10 BID - vistaril seems to help him during acute bouts. Started on 26 IM q8 PRN - would avoid starting him on benzo (2) Acute on chronic respiratory failure with hypoxia and hypercapnia Is this a current diagnosis for this admission?: Yes Plan: -Has a trach and on mechanical ventilation -will continue weaning trials. -Awaiting LTAC placement (3) Bacteremia due to Enterococcus Is this a current diagnosis for this admission?: Yes Plan: - completed antibiotics treatment (4) Diabetes Qualifiers: Diabetes mellitus type: type 2 Is this a current diagnosis for this admission?: Yes Plan: Controlled Accu-chek q6h with SSI shake out worker consulted. (5) Malnutrition Qualifiers: Malnutrition type: protein-calorie malnutrition Protein-calorie malnutrition severity: severe Qualified Code(s): E43 - Unspecified severe pro tein-calorie malnutrition Is this a current diagnosis for this admission?: Yes Plan: Improving Now on Tube Feeds; formula adjusted today r/t gas and high residuals. RD following. (6) Acute kidney injury superimposed on chronic kidney disease Is this a current diagnosis for this admission?: Yes Plan: Resolved. - crea stable (7) Chronic pain Qualifiers: Chronic pain type: other chronic pain Qualified Code(s): G89.29 - Other chronic pain Is this a current diagnosis for this admission?: Yes Plan: Discussed w/ patient today. Agreeable to trial of oral morphine; states that IV dilaudid is preferable. Goal to transition from IV to oral (PEG) only management for pain. Low threshold for pain management consultation if morphine is not effective or patient become resistant to transition. Declines pain management consultation again today. Will hold w/ current plan; no adjustments made. Continue morphine 5 mg via PEG q4 prn with dilaudid 1 mg q6 prn breakthrough. (8) COVID-19 Is this a current diagnosis for this admission?: Yes Plan: -resolved but patient has suffered significant comorbidity from it - no indication to retest - continue vent support. Wean as tolerated (9) Critical illness myopathy Is this a current diagnosis for this admission?: Yes Plan: -2/2 ICU and prolonged hospital stay - would need extensive rehab given that he has already been in the hospital for 3 months or more PT/OT/ST consulted (10) Debility Is this a current diagnosis for this admission?: Yes Plan: PT/OT/ST consulted Needs LTAC placement (11) Dependent on ventilator Is this a current diagnosis for this admission?: Yes (12) Dysphagia Qualifiers: Dysphagia type: oropharyngeal phase Qualified Code(s): R13.12 - Dysphagia, oropharyngeal phase Is this a current diagnosis for this admission?: Yes Plan: Now with PEG -Failed swallow eval 06/03/20 - currently receiving feeding via PEG with free water flushes - Na stable shake out worker consulted for TF and water recommendations. Nursing reports concern for high volume of gas when checking residuals. Unfortunately; patient is refusing ST sessions. They have provided bedside information. Will encourage patient to reconsider. (13) Leukocytosis Qualifiers: Leukocytosis type: unspecified Qualified Code(s): D72.829 - Elevated white blood cell count, unspecified Is this a current diagnosis for this admission?: Yes Plan: --WBC 13.5>16.2 - has completed multiple courses of abx so I am less inclined to start him on any medications unless he spikes a fever or takes a turn for the worse - afebrile. His BP was soft today. If he continues with his low normal BP will do blood culture and consider starting him on abx - will CTM. Patient refusing follow-up lab work. (14) MSSA bacteremia Is this a current diagnosis for this admission?: Yes Plan: completed treatment (15) Bilateral pneumonia Qualifiers: Pneumonia type: aspiration pneumonia Lung location: lower lobe of lung Is this a current diagnosis for this admission?: Yes Plan: Resolved. (16) Acute metabolic encephalopathy Is this a current diagnosis for this admission?: Yes Plan: Resolved (17) Medical non-compliance Is this a current diagnosis for this admission?: Yes Plan: Continues to decline PT/OT/ST sessions. Per nursing; frequently refuses skin care and position changes. Intermittently refuses medications. Currently refusing labs. (18) Candiduria Is this a current diagnosis for this admission?: Yes Plan: Resolved. - Time Time Spent with patient: 15-24 minutes Medications reviewed and adjusted accordingly: Yes Anticipated Discharge Disposition: [facility] Anticipated Discharge Timeframe: when bed available
[2020-06-06] MEDS: PROMETHAZINE HCL INJ 25 MG/1 ML VIAL IV PRN (16:24)
[2020-06-07] MEDS: MORPHINE SULFATE 10 MG/5 ML ORAL SOLUTION UDCUP PO PRN ×4 (02:33→20:31)
[2020-06-07] MEDS: INSULIN REG, HUMAN 100 UNIT/ML 3 ML VIAL (PYX) SUBCUT SCH ×4 (05:01→17:52)
[2020-06-07] MEDS: HYDROXYZINE HCL INJ 50 MG/1 ML VIAL IM PRN ×2 (05:04→17:52)
[2020-06-07] MEDS: IPRATROPIUM/ALBUTEROL 0.5-2.5 MG/3 ML AMPUL NEB PRN ×4 (05:23→20:32)
[2020-06-07] MEDS: METOCLOPRAMIDE HCL INJ/PF 10 MG/2 ML SDV IV SCH ×3 (05:24→21:55)
[2020-06-07] MEDS: HYDROMORPHONE HCL INJ/PF 2 MG/ML AMPULE IV PRN ×2 (05:24→12:42)
[2020-06-07 06:13] LABS: HEMATOCRIT 25.1 % (37.9-51.0); MEAN CORPUSCULAR HEMOGLOBIN 27.3 pg (27.0-33.4); MEAN CORPUSCULAR HGB CONC 31.6 g/dL (32.0-36.0); MEAN CORPUSCULAR VOLUME 86 fl (80-97); PLATELET COUNT 493 10^3/uL (150-450); RED BLOOD COUNT 2.91 10^6/uL (4.35-5.55); RED CELL DISTRIBUTION WIDTH 17.7 % (11.5-14.0); WHITE BLOOD COUNT 15.2 10^3/uL (4.0-10.5)
[2020-06-07 06:38] LABS: ALBUMIN 2.1 g/dL (3.5-5.0); ALKALINE PHOSPHATASE 102 U/L (38-126); ASPARTATE AMINO TRANSFERASE 12 U/L (17-59); BILIRUBIN,DIRECT 0.1 mg/dL (0.0-0.4); BILIRUBIN,TOTAL 0.2 mg/dL (0.2-1.3); BLOOD UREA NITROGEN 25 mg/dL (7-20); CALCIUM 8.5 mg/dL (8.4-10.2); GLUCOSE 155 mg/dL (75-110); PHOSPHORUS 2.5 mg/dL (2.5-4.5); POTASSIUM 5.6 mmol/L (3.6-5.0); TOTAL PROTEIN 5.8 g/dL (6.3-8.2)
[2020-06-07 06:43] LABS: CARBON DIOXIDE 34 mmol/L (22-30); CHLORIDE 100 mmol/L (98-107)
[2020-06-07 06:49] LABS: ANION GAP 3 (5-19)
[2020-06-07 07:12] LABS: ABSOLUTE LYMPHOCYTES# (MANUAL) 1.4 10^3/uL (0.5-4.7); ABSOLUTE MONOCYTES # (MANUAL) 0.2 10^3/uL (0.1-1.4); BASOPHILS % (MANUAL) 0 % (0-2); EOSINOPHILS % (MANUAL) 1 % (0-6); LYMPHOCYTES % (MANUAL) 9 % (13-45); MONOCYTES % (MANUAL) 1 % (3-13); SEGMENTED NEUTROPHILS % (MAN) 89 % (42-78); TOTAL CELLS COUNTED 100
[2020-06-07 07:14] LABS: OVALOCYTES SLIGHT; PLATELET COMMENT ADEQUATE; POIKILOCYTOSIS SLIGHT; SCHISTOCYTES SLIGHT; TOXIC GRANULATION SLIGHT
[2020-06-07 07:15] LABS: HEMOGLOBIN 7.9 g/dL (13.5-17.0)
[2020-06-07] MEDS: DIPHENHYDRAMINE HCL 50 MG/ML VIAL IV PRN ×2 (08:13→20:32)
[2020-06-07] MEDS ORDERED: FUROSEMIDE INJ/PF 20 MG/2 ML SDV IV PRN (08:20)
[2020-06-07] MEDS: CALCIUM CARBONATE 500 MG TAB.CHEW PEG SCH ×2 (09:40→17:28)
[2020-06-07] MEDS: NIFEDIPINE 30 MG TAB.ER.24 PO SCH (09:40)
[2020-06-07] MEDS: BUSPIRONE HCL 10 MG TABLET PEG SCH ×2 (09:40→17:28)
[2020-06-07] MEDS ORDERED: MORPHINE SULFATE 10 MG/5 ML ORAL SOLUTION UDCUP PO ONE (11:30)
[2020-06-07] MEDS: PROMETHAZINE HCL INJ 25 MG/1 ML VIAL IV PRN (11:44)
[2020-06-07] MEDS: ALBUMIN HUMAN 12.5 GM/50 ML RTUINJ IV SCH ×6 (12:37→17:53)
--- NOTE | 2020-06-07 14:03 | PDOC PROGRESS REPORT ---
Subjective Date:: 06/07/20 Subjective:: Patient seen on morning rounds. Currently on ventilatory support via trach collar. He complains of pain, can't specify where. Asks for IV pain medications. Becomes very agitated when attempting to discuss his recent use and that he has been under utilizing available oral option. He demands IV pain medications. Did at one point say that he wanted to go on hospice. However, upon further clarification, he stated this because he thought he would receive IV analgesics and confirmed that he wishes to remain full code status. He is advised that we will be consulted pain management services to provide guidance. He would not participate in conversation following this. He has no other concerns at this time. No new concerns per nursing. Reason For Visit: MUCOUS PLUGGING, ACUTE HYPOXIC RESPIRATORY FAILURE Physical Exam Vital Signs: Temp Pulse Resp BP Pulse Ox 97.8 F 104 H 20 127/76 H 93 06/06/20 21:42 06/07/20 08:10 06/07/20 08:10 06/07/20 08:10 06/07/20 10:25 Intake & Output 06/06/20 06/07/20 06/08/20 06:59 06:59 06:59 Intake Total 383 265 0 Output Total 550 600 Balance -167 -335 0 Weight 86.2 kg 86.9 kg 86.9 kg General appearance: PRESENT: no acute distress, disheveled, well-developed, other - generalized edema. ABSENT: cooperative Head exam: PRESENT: atraumatic, normocephalic Eye exam: PRESENT: conjunctiva pink, EOMI, PERRLA. ABSENT: scleral icterus Mouth exam: PRESENT: moist, tongue midline Teeth exam: PRESENT: poor dentation Neck exam: PRESENT: tracheostomy Respiratory exam: PRESENT: clear to auscultation yousif, rhonchi, symmetrical, unlabored, other - supplemental oxygen by vent to traceostomy. ABSENT: rales, wheezes Cardiovascular exam: PRESENT: RRR. ABSENT: diastolic murmur, rubs, systolic murmur Vascular exam: PRESENT: normal capillary refill Extremities exam: PRESENT: full ROM. ABSENT: calf tenderness, clubbing, pedal edema Neurological exam: PRESENT: alert, awake, oriented to person, oriented to place, oriented to time, oriented to situation, CN II-XII grossly intact. ABSENT: motor sensory deficit Psychiatric exam: PRESENT: agitated, normal mood. ABSENT: homicidal ideation, suicidal ideation Skin exam: PRESENT: dry, warm, other - stage II to sacrum. ABSENT: cyanosis, intact, rash Results Laboratory Results: 06/07/20 05:25 06/07/20 05:25 06/07/20 06/07/20 05:25 05:25 WBC 15.2 H RBC 2.91 L Hgb 7.9 L Hct 25.1 L MCV 86 MCH 27.3 MCHC 31.6 L RDW 17.7 H Plt Count 493 H Seg Neutrophils % Not Reportable Sodium 136.9 L Potassium 5.6 H Chloride 100 Carbon Dioxide 34 H Anion Gap 3 L BUN 25 H Creatinine 0.76 Est GFR ( Amer) > 60 Glucose 155 H Calcium 8.5 Phosphorus 2.5 Magnesium 2.1 Total Bilirubin 0.2 AST 12 L Alkaline Phosphatase 102 Total Protein 5.8 L Albumin 2.1 L 04/20/20 04/23/20 04/23/20 09:00 01:55 01:55 Creatine Kinase < 20 L CK-MB (CK-2) 2.20 Troponin I < 0.012 0.082 NT-Pro-B Natriuret Pep [id number] H 04/23/20 04/23/20 04/23/20 05:58 08:22 14:50 Creatine Kinase < 20 L < 20 L CK-MB (CK-2) 2.24 Troponin I 0.066 NT-Pro-B Natriuret Pep 04/23/20 14:50 Creatine Kinase CK-MB (CK-2) 2.09 Troponin I 0.057 NT-Pro-B Natriuret Pep Impressions: PICC Line Insertion 05/07/20 00:00 IMPRESSION: SUCCESSFUL PLACEMENT OF A 5 FR DUAL LUMEN 47 CM PICC IN THE LEFT BRACHIOCEPHALIC VEIN. KUB X-Ray 05/16/20 11:57 IMPRESSION: NG tube as described. Findings as described. Chest X-Ray 05/25/20 00:00 IMPRESSION: No improvement in the diffuse opacities likely covid 19. SUPPORT DEVICE(S) IN EXPECTED LOCATIONS. Modified Barium Swallow 06/03/20 00:00 IMPRESSION: LARYNGEAL PENETRATION AND ASPIRATION ABOVE. HE WAS PLEASE SEE SPEECH PATHOLOGIST REPORT FOR OTHER FINDINGS AND RECOMMENDATIONS. Assessment and Plan - Diagnosis (1) Chronic pain Qualifiers: Chronic pain type: other chronic pain Qualified Code(s): G89.29 - Other chronic pain Is this a current diagnosis for this admission?: Yes Plan: Continued difficulty with managing patient's opiate dependence, chronic pain, desire for IV route, and hypoxia. Consulted pain management today for recommendations. Spoke with Lili Velazco TREE DOCTOR-C (who consulted w/ Dr. Richardson) regarding patient's prior opiate dependance, clinical course, and difficulty w/ managing pain while transitioning to an oral/peg option. They advise to discontinue IV analgesics. Recommend Morphine 10 mg via PEG q4h prn. If inadequate, may try Morphine 5 mg via PEG q3h prn. They advise against further adjustments/negotiations without evidence of new, acute, and objectively verifiable problem. (2) Anxiety about health Is this a current diagnosis for this admission?: Yes Plan: - has frequent attacks of anxiety - on buspar 10 BID - vistaril seems to help him during acute bouts. Started on 25M q8 PRN - would avoid starting him on benzo (3) Acute on chronic respiratory failure with hypoxia and hypercapnia Is this a current diagnosis for this admission?: Yes Plan: -Has a trach and on mechanical ventilation -will continue weaning trials. -Awaiting LTAC placement (4) Bacteremia due to Enterococcus Is this a current diagnosis for this admission?: Yes Plan: - completed antibiotics treatment (5) Diabetes Qualifiers: Diabetes mellitus type: type 2 Is this a current diagnosis for this admission?: Yes Plan: Controlled Accu-chek q6h with SSI. Has been declining insulin; fortunately bgl remains <200 dot compliance coordinator consulted. (6) Malnutrition Qualifiers: Malnutrition type: protein-calorie malnutrition Protein-calorie malnutrition severity: severe Qualified Code(s): E43 - Unspecified severe protein-calorie malnutrition Is this a current diagnosis for this admission?: Yes Plan: Improving Now on Tube Feeds RD following. (7) Acute kidney injury superimposed on chronic kidney disease Is this a current diagnosis for this admission?: Yes Plan: Resolved. - crea stable (8) COVID-19 Is this a current diagnosis for this admission?: Yes Plan: -resolved but patient has suffered significant comorbidity from it - no indication to retest - continue vent support. Wean as tolerated (9) Critical illness myopathy Is this a current diagnosis for this admission?: Yes Plan: -2/2 ICU and prolonged hospital stay - would need extensive rehab given that he has already been in the hospital for 3 months or more PT/OT/ST consulted (10) Debility Is this a current diagnosis for this admission?: Yes Plan: PT/OT/ST consulted Needs LTAC placement (11) Dysphagia Qualifiers: Dysphagia type: oropharyngeal phase Qualified Code(s): R13.12 - Dysphagia, oropharyngeal phase Is this a current diagnosis for this admission?: Yes Plan: Now with PEG -Failed swallow eval 06/03/20 - currently receiving feeding via PEG with free water flushes - Na stable dot compliance coordinator consulted for TF and water recommendations. Nursing reports concern for high volume of gas when checking residuals. Unfortunately; patient is refusing ST sessions. They have provided bedside information. Will encourage patient to reconsider. (12) Leukocytosis Qualifiers: Leukocytosis type: unspecified Qualified Code(s): D72.829 - Elevated white blood cell count, unspecified Is this a current diagnosis for this admission?: Yes Plan: WBC 13.5>16.2-> 15. Remains afebrile. Has completed multiple courses of abx so I am less inclined to start him on any medications unless he spikes a fever or takes a turn for the worse. Monitor closely for evidence of developing infectious process. (13) MSSA bacteremia Is this a current diagnosis for this admission?: Yes Plan: completed treatment (14) Bilateral pneumonia Qualifiers: Pneumonia type: aspiration pneumonia Lung location: lower lobe of lung Is this a current diagnosis for this admission?: Yes Plan: Resolved. (15) Acute metabolic encephalopathy Is this a current diagnosis for this admission?: Yes Plan: Resolved (16) Medical non-compliance Is this a current diagnosis for this admission?: Yes Plan: Continues to decline PT/OT/ST sessions. Per nursing; frequently refuses skin care and position changes. Intermittently refuses medications and labs. (17) Candiduria Is this a current diagnosis for this admission?: Yes Plan: Resolved. (18) Dependent on ventilator Is this a current diagnosis for this admission?: Yes (19) Anemia Qualifiers: Anemia type: due to chronic kidney disease Chronic kidney disease stage: stage 4 (severe) Qualified Code(s): N18.4 - Chronic kidney disease, stage 4 (severe); D63.1 - Anemia in chronic kidney disease Is this a current diagnosis for this admission?: Yes Plan: Hgb 7.2 Last anemia panel was 05/07 and revealed severe iron deficiency. Will repeat anemia panel w/ AM lab work. No evidence of acute blood loss at this time. (20) Hyperkalemia Is this a current diagnosis for this admission?: Yes Plan: K 5.6 today Receiving albumin/furosemide today to mobilize fluid; this may help reduce potassium. Last documented bm on 05/29/20. Will also provide lactulose x1 dose. Follow up chemistry. - Time Time Spent with patient: 35 or more minutes Medications reviewed and adjusted accordingly: Yes Anticipated Discharge Disposition: [facility] Living Care Facility Anticipated Discharge Timeframe: when bed available
[2020-06-07] MEDS ORDERED: LACTULOSE SYRUP 20 GM/30 ML UDCUP PO ONE (14:30)
[2020-06-08] MEDS: INSULIN REG, HUMAN 100 UNIT/ML 3 ML VIAL (PYX) SUBCUT SCH ×4 (00:52→19:03)
[2020-06-08] MEDS: MORPHINE SULFATE 10 MG/5 ML ORAL SOLUTION UDCUP PO PRN ×4 (02:51→18:38)
[2020-06-08] MEDS: IPRATROPIUM/ALBUTEROL 0.5-2.5 MG/3 ML AMPUL NEB PRN ×3 (04:03→14:44)
[2020-06-08] MEDS: HYDROXYZINE HCL INJ 50 MG/1 ML VIAL IM PRN ×2 (05:40→13:56)
[2020-06-08] MEDS: METOCLOPRAMIDE HCL INJ/PF 10 MG/2 ML SDV IV SCH ×3 (05:40→23:57)
[2020-06-08 06:55] LABS: BLOOD UREA NITROGEN 26 mg/dL (7-20); CALCIUM 8.5 mg/dL (8.4-10.2); GLUCOSE 170 mg/dL (75-110); HEMATOCRIT 25.5 % (37.9-51.0); MEAN CORPUSCULAR HEMOGLOBIN 26.6 pg (27.0-33.4); MEAN CORPUSCULAR HGB CONC 30.6 g/dL (32.0-36.0); MEAN CORPUSCULAR VOLUME 87 fl (80-97); PLATELET COUNT 442 10^3/uL (150-450); POTASSIUM 5.6 mmol/L (3.6-5.0); RED BLOOD COUNT 2.93 10^6/uL (4.35-5.55); RED CELL DISTRIBUTION WIDTH 17.5 % (11.5-14.0); WHITE BLOOD COUNT 14.4 10^3/uL (4.0-10.5)
[2020-06-08 06:59] LABS: HEMOGLOBIN 7.8 g/dL (13.5-17.0)
[2020-06-08 07:00] LABS: ANION GAP 5 (5-19); CARBON DIOXIDE 34 mmol/L (22-30); CHLORIDE 96 mmol/L (98-107)
[2020-06-08] MEDS: DIPHENHYDRAMINE HCL 50 MG/ML VIAL IV PRN (09:12)
[2020-06-08] MEDS: BUSPIRONE HCL 10 MG TABLET PEG SCH ×2 (09:12→18:38)
[2020-06-08] MEDS: CALCIUM CARBONATE 500 MG TAB.CHEW PEG SCH ×2 (09:12→18:38)
[2020-06-08] MEDS: NIFEDIPINE 30 MG TAB.ER.24 PO SCH (09:12)
[2020-06-08] MEDS ORDERED: FUROSEMIDE INJ/PF 20 MG/2 ML SDV IV SCH (10:00)
[2020-06-08 10:58] LABS: ARTERIAL BLOOD BASE EXCESS 8.1 mmol/L; ARTERIAL BLOOD H2CO3 2.19 mmol/L (1.05-1.35); ARTERIAL BLOOD HCO3 35.8 mmol/L (20-24); ARTERIAL BLOOD O2 SATURATION 71.5 % (94-98); ARTERIAL BLOOD PH 7.31 (7.35-7.45); ARTERIAL BLOOD PO2 42.5 mmHg (80-100); ARTERIAL BLOOD TOTAL CO2 38.1 mmol/L (23-27)
[2020-06-08 10:59] LABS: ARTERIAL BLOOD FIO2 100%
[2020-06-08 11:00] LABS: ARTERIAL BLOOD PCO2 72.8 mmHg (35-45)
--- NOTE | 2020-06-08 11:49 | RADIOLOGY REPORT (SQ) ---
EXAM DESCRIPTION: CHEST SINGLE VIEW IMAGES COMPLETED DATE/TIME: 06/08/2020 11:36 am REASON FOR STUDY: increased hypoxia COMPARISON: 05/25/2020 TECHNIQUE: Single frontal radiographic view of the chest acquired. NUMBER OF VIEWS: One view. LIMITATIONS: None. FINDINGS: LUNGS AND PLEURA: No pneumothorax. Significantly increased right pleural effusion. Persi stent patchy -confluent airspace opacities in both lungs. Slight improved aeration in the left upper lobe. Probable increased left pleural effusion. MEDIASTINUM AND HILAR STRUCTURES: Stable. HEART AND VASCULAR STRUCTURES: Stable. BONES: No acute findings. HARDWARE: Tracheostomy tube. Left-sided PICC line catheter. OTHER: No other significant finding. IMPRESSION: Significantly increased right pleural effusion. Persistent patchy -confluent airspace o pacities in both lungs. Slight improved aeration in the left upper lobe. Probable increased left ple ural effusion. TECHNICAL DOCUMENTATION: JOB ID: [id number] [id number] 2010 [employer]- All Rights Reserved Reading location - IP/workstation name: [email or web address]
[2020-06-08 13:41] LABS: ARTERIAL BLOOD BASE EXCESS 11.7 mmol/L; ARTERIAL BLOOD FIO2 100%; ARTERIAL BLOOD H2CO3 1.94 mmol/L (1.05-1.35); ARTERIAL BLOOD HCO3 38.2 mmol/L (20-24); ARTERIAL BLOOD O2 SATURATION 90.8 % (94-98); ARTERIAL BLOOD PCO2 64.6 mmHg (35-45); ARTERIAL BLOOD PH 7.39 (7.35-7.45); ARTERIAL BLOOD PO2 62.3 mmHg (80-100); ARTERIAL BLOOD TOTAL CO2 40.2 mmol/L (23-27)
--- NOTE | 2020-06-08 14:44 | PDOC PROGRESS REPORT ---
Subjective Date:: 06/08/20 Subjective:: Patient seen on morning rounds. He is awake and alert. Does not respond to me, although, does interact with nursing staff while I'm in the room. He has been utilizing his white board to write/communicate with staff today. Continues to request IV pain medications. He is noted to be tachypneic (respiratory rate mid 20s) with shallow respirations and coarse rhonchi throughout. He does not respond when I ask if he has any questions or concerns at this time. Nursing reports increased oxygen needs. Yesterday morning, patient was maintaining oxygen saturations with an FiO2 of 50%; now requiring 75% to maintain SpO2 >90%. Reason For Visit: MUCOUS PLUGGING, ACUTE HYPOXIC RESPIRATORY FAILURE Physical Exam Vital Signs: Temp Pulse Resp BP Pulse Ox 97.7 F 99 20 113/74 94 06/08/20 14:02 06/08/20 14:02 06/08/20 14:02 06/08/20 14:02 06/08/20 14:02 Intake & Output 06/07/20 06/08/20 06/09/20 06:59 06:59 06:59 Intake Total 265 2258 Output Total 600 1350 600 Balance -335 908 -600 Weight 86.9 kg 87.6 kg General appearance: PRESENT: mild distress, well-developed, well-nourished Head exam: PRESENT: atraumatic, normocephalic Eye exam: PRESENT: conjunctiva pink, EOMI, PERRLA. ABSENT: scleral icterus Mouth exam: PRESENT: moist, tongue midline Neck exam: PRESENT: tracheostomy Respiratory exam: PRESENT: accessory muscle use, rhonchi - Throughout, symmetrical, tachypnea - Shallow, other - On AVAPS to trach. ABSENT: rales, wheezes Cardiovascular exam: PRESENT: RRR, tachycardia. ABSENT: diastolic murmur, rubs, systolic murmur Pulses: PRESENT: normal dorsalis pedis pul Vascular exam: PRESENT: normal capillary refill Extremities exam: PRESENT: full ROM. ABSENT: calf tenderness, clubbing, pedal edema, +1 edema Neurological exam: PRESENT: alert, awake, oriented to person, oriented to place, oriented to time, oriented to situation, CN II-XII grossly intact. ABSENT: motor sensory deficit Psychiatric exam: PRESENT: flat affect, normal mood. ABSENT: homicidal ideation, suicidal ideation Skin exam: PRESENT: dry, warm, other - stage II to sacrum. ABSENT: cyanosis, intact, rash Results Laboratory Results: 06/08/20 05:45 06/08/20 05:45 06/08/20 06/08/20 06/08/20 05:45 05:45 10:40 WBC 14.4 H RBC 2.93 L Hgb 7.8 L Hct 25.5 L MCV 87 MCH 26.6 L MCHC 30.6 L RDW 17.5 H Plt Count 442 Carbonic Acid 2.19 H HCO3/H2CO3 Ratio 16:1 ABG pH 7.31 L ABG pCO2 72.8 H* ABG pO2 42.5 L ABG HCO3 35.8 H ABG O2 Saturation 71.5 L ABG Base Excess 8.1 FiO2 100% Sodium 135.4 L Potassium 5.6 H Chloride 96 L Carbon Dioxide 34 H Anion Gap 5 BUN 26 H Creatinine 0.68 Est GFR ( Amer) > 60 Glucose 170 H Calcium 8.5 06/08/20 13:16 WBC RBC Hgb Hct MCV MCH MCHC RDW Plt Count Carbonic Acid 1.94 H HCO3/H2CO3 Ratio 19:1 ABG pH 7.39 ABG pCO2 64.6 H ABG pO2 62.3 L ABG HCO3 38.2 H ABG O2 Saturation 90.8 L ABG Base Excess 11.7 FiO2 100% Sodium Potassium Chloride Carbon Dioxide Anion Gap BUN Creatinine Est GFR ( Amer) Glucose Calcium 04/20/20 04/23/20 04/23/20 09:00 01:55 01:55 Creatine Kinase < 20 L CK-MB (CK-2) 2.20 Troponin I < 0.012 0.082 NT-Pro-B Natriuret Pep 36718 H 04/23/20 04/23/20 04/23/20 05:58 08:22 14:50 Creatine Kinase < 20 L < 20 L CK-MB (CK-2) 2.24 Troponin I 0.066 NT-Pro-B Natriuret Pep 04/23/20 14:50 Creatine Kinase CK-MB (CK-2) 2.09 Troponin I 0.057 NT-Pro-B Natriuret Pep Impressions: PICC Line Insertion 05/07/20 00:00 IMPRESSION: SUCCESSFUL PLACEMENT OF A 5 FR DUAL LUMEN 47 CM PICC IN THE LEFT BRACHIOCEPHALIC VEIN. KUB X-Ray 05/16/20 11:57 IMPRESSION: NG tube as described. Findings as described. Modified Barium Swallow 06/03/20 00:00 IMPRESSION: LARYNGEAL PENETRATION AND ASPIRATION ABOVE. HE WAS PLEASE SEE SPEECH PATHOLOGIST REPORT FOR OTHER FINDINGS AND RECOMMENDATIONS. Chest X-Ray 06/08/20 00:00 IMPRESSION: Significantly increased right pleural effusion. Persistent patchy -confluent airspace opacities in both lungs. Slight improved aeration in the left upper lobe. Probable increased left pleural effusion. Assessment and Plan - Diagnosis (1) Acute on chronic respiratory failure with hypoxia and hypercapnia Is this a current diagnosis for this admission?: Yes Plan: Worsened today. Has a trach and on mechanical ventilation; multiple failed weaning trials. Has required increased FiO2 to maintain SpO2 over the last 24-36 hours. CXR today shows significantly increased right pleural effusion. Persistent patchy airspace opacities in both lungs; slight improvement in the left upper lobe. ABGs are somewhat misleading. A stat ABG was ordered due to patient's increased oxygen needs and tachypnea. Due to critical need for ventilators, the RT removed the patient from his ventilator to place on BiPAP/AVAPS. The BiPAP machine was not compatible w/ his trach resulting in drop in SpO2 (not documented). RT then had to use BVM to recover patient and then returned him to his Vent. Without being aware this had occurred just minutes prior, nursing obtained the ABG. ABG resulted pH 7.31, pCO2 72.8, pO2 42.5, HCO3 35.8 Nursing called critical values and explained the above mentioned events and change to AVAPS. Patient was seen immediately and found to be alert/awake, with RR 26, HR 104, and SpO2 92%. Repeat stat ABG was requested. RT then called to inform of critical need for ventilators in the ICU and that patient had been placed on AVAPS. Requested order be placed for AVAPS. Order for stat ABG on AVAPS requested and resulted pH 7.39, pCO2 65.6, pO2 62.3, HCO3 38.2 on FiO2 100%. Confirmed w/ RT availability of ventilators in house; 3 machines available. Instructed RT to place patient back on ventilator on prior ventilator settings and follow up with ABG after 45 min. Will ask IR for rt side thoracentesis. Continue to cautiously diurese with furosemide. Pleural effusion likely related to CHF; echocardiogram (03/27/2020) shows LVEF 35 to 40% (2) Chronic pain Qualifiers: Chronic pain type: other chronic pain Qualified Code(s): G89.29 - Other chronic pain Is this a current diagnosis for this admission?: Yes Plan: Continued difficulty with managing patient's opiate dependence, chronic pain, desire for IV route, and hypoxia. Consulted pain management today for recommendations. Spoke with WALDEMAR GarciaC (who consulted w/ Dr. Richardson) regarding patient's prior opiate dependance, clinical course, and difficulty w/ managing pain while transitioning to an oral/peg option. They advise to discontinue IV analgesics. Recommend Morphine 10 mg via PEG q4h prn. If inadequate, may try Morphine 5 mg via PEG q3h prn. They advise against further adjustments/negotiations without evidence of new, acute, and objectively verifiable problem. (3) Anxiety about health Is this a current diagnosis for this admission?: Yes Plan: - has frequent attacks of anxiety - on buspar 10 BID - vistaril seems to help him during acute bouts. Started on 25M q8 PRN - would avoid starting him on benzo (4) Bacteremia due to Enterococcus Is this a current diagnosis for this admission?: Yes Plan: - completed antibiotics treatment (5) Diabetes Qualifiers: Diabetes mellitus type: type 2 Is this a current diagnosis for this admission?: Yes Plan: Controlled Accu-chek q6h with SSI. Has been declining insulin; fortunately bgl remains <200 veterinary practitioner consulted. (6) Malnutrition Qualifiers: Malnutrition type: protein-calorie malnutrition Protein-calorie malnutrition severity: severe Qualified Code(s): E43 - Unspecified severe protein-calorie malnutrition Is this a current diagnosis for this admission?: Yes Plan: Improving Now on Tube Feeds RD following. (7) Acute kidney injury superimposed on chronic kidney disease Is this a current diagnosis for this admission?: Yes Plan: Resolved. Cr stable; currently 0.68/bun 26 (8) COVID-19 Is this a current diagnosis for this admission?: Yes Plan: -resolved but patient has suffered significant comorbidity from it - no indication to retest - continue vent support. Wean as tolerated (9) Critical illness myopathy Is this a current diagnosis for this admission?: Yes Plan: -2/2 ICU and prolonged hospital stay - would need extensive rehab given that he has already been in the hospital for 3 months or more PT/OT/ST consulted (10) Debility Is this a current diagnosis for this admission?: Yes Plan: PT/OT/ST consulted Needs LTAC placement (11) Dysphagia Qualifiers: Dysphagia type: oropharyngeal phase Qualified Code(s): R13.12 - Dysphagia, oropharyngeal phase Is this a current diagnosis for this admission?: Yes Plan: Now with PEG -Failed swallow eval 06/03/20 - currently receiving feeding via PEG with free water flushes - Na stable veterinary practitioner consulted for TF and water recommendations. Nursing reports concern for high volume of gas when checking residuals. Unfortunately; patient is refusing ST sessions. They have provided bedside information. Will encourage patient to reconsider. (12) Leukocytosis Qualifiers: Leukocytosis type: unspecified Qualified Code(s): D72.829 - Elevated white blood cell count, unspecified Is this a current diagnosis for this admission?: Yes Plan: WBC 13.5> 16.2-> 15.2-> 14.4. Remains afebrile. Has completed multiple courses of abx so I am less inclined to start him on any medications unless he spikes a fever or takes a turn for the worse. Monitor closely for evidence of developing infectious process. (13) MSSA bacteremia Is this a current diagnosis for this admission?: Yes Plan: completed treatment (14) Bilateral pneumonia Qualifiers: Pneumonia type: aspiration pneumonia Lung location: lower lobe of lung Is this a current diagnosis for this admission?: Yes Plan: Resolved. (15) Acute metabolic encephalopathy Is this a current diagnosis for this admission?: Yes Plan: Resolved (16) Medical non-compliance Is this a current diagnosis for this admission?: Yes Plan: Continues to decline PT/OT/ST sessions. Per nursing; frequently refuses skin care and position changes. Intermittently refuses medications and labs. (17) Candiduria Is this a current diagnosis for this admission?: Yes Plan: Resolved. (18) Dependent on ventilator Is this a current diagnosis for this admission?: Yes (19) Anemia Qualifiers: Anemia type: due to chronic kidney disease Chronic kidney disease stage: stage 4 (severe) Qualified Code(s): N18.4 - Chronic kidney disease, stage 4 (severe); D63.1 - Anemia in chronic kidney disease Is this a current diagnosis for this admission?: Yes Plan: Hgb 7.2-> 7.8 Last anemia panel was 05/07 and revealed severe iron deficiency. Will check iron and ferritin levels. Likely additional Iv Fereheme tomorrow. No evidence of acute blood loss at this time. (20) Hyperkalemia Is this a current diagnosis for this admission?: Yes Plan: K 5.6-> 5.6 Additional furosemide today; no longer w/ peripheral edema though w/ large right pleural effusion. Received lactulose x1 dose yesterday. Kayexalate today. Follow up chemistry. - Time Time Spent with patient: 35 or more minutes Medications reviewed and adjusted accordingly: Yes Anticipated Discharge Disposition: [facility] Anticipated Discharge Timeframe: unclear
[2020-06-08 14:54] LABS: INTERNATIONAL RATION (INR) 1.01; PROTHROMBIN TIME 13.5 SEC (11.4-15.4)
[2020-06-08 14:55] LABS: PARTIAL THROMBOPLASTIN TIME 30.1 SEC (23.5-35.8)
[2020-06-08 16:22] LABS: ARTERIAL BLOOD BASE EXCESS 9.8 mmol/L; ARTERIAL BLOOD H2CO3 1.99 mmol/L (1.05-1.35); ARTERIAL BLOOD HCO3 36.7 mmol/L (20-24); ARTERIAL BLOOD O2 SATURATION 97.3 % (94-98); ARTERIAL BLOOD PCO2 66.2 mmHg (35-45); ARTERIAL BLOOD PH 7.36 (7.35-7.45); ARTERIAL BLOOD PO2 102.5 mmHg (80-100); ARTERIAL BLOOD TOTAL CO2 38.8 mmol/L (23-27)
[2020-06-08 16:23] LABS: ARTERIAL BLOOD FIO2 100%
--- NOTE | 2020-06-08 17:48 | RADIOLOGY REPORT (SQ) ---
EXAM DESCRIPTION: U/S THORACENTESIS WITH IMAGING IMAGES COMPLETED DATE/TIME: 06/08/2020 5:38 pm REASON FOR STUDY: large right pleural effusion J96.21 ACUTE AND CHRONIC RESPIRATORY FAILURE WITH HY POXIA COMPARISON: None. LIMITATIONS: None. PROCEDURE: Procedure, risks, benefit, and alternative explained to patient who then gave written con sent. The posterior right chest wall was marked using ultrasound guidance. A time-out was called fo r correct marking verification. Chest prepped and draped using sterile technique. Local anesthesia a chieved using 5 ml of 1% lidocaine injection. A 6fr Safe-T- Centesis set was introduced into the rig ht pleural space. Fluid was aspirated. The catheter was removed and the entry site was covered with sterile bandage. No immediate complications noted. Images acquired during the procedure were stored on PACS. FINDINGS: ENTRY SITE: posterior right chest. FLUID VOLUME: 800 cc FLUID ANALYSIS: Straw-colored OTHER: Fluid sent to the lab for testing. IMPRESSION: SUCCESSFUL THORACENTESIS USING ULTRASOUND GUIDANCE. COMMENT: Patient medication list reviewed: Yes- Quality ID# [id number]:Eligible professional attests to doc umenting in the medical record they obtained, updated, or reviewed the patient's current medications. TECHNICAL DOCUMENTATION: JOB ID: [id number] 2010 [employer]- All Rights Reserved Reading location - IP/workstation name: [email or web address]
--- NOTE | 2020-06-08 17:50 | RADIOLOGY REPORT (SQ) ---
EXAM DESCRIPTION: CHEST SINGLE VIEW IMAGES COMPLETED DATE/TIME: 06/08/2020 5:40 pm REASON FOR STUDY: Post procedure COMPARISON: 06/08/2020 at 1103 hours. EXAM PARAMETERS: NUMBER OF VIEWS: One view. TECHNIQUE: Single frontal radiographic view of the chest acquired. RADIATION DOSE: NA LIMITATIONS: None. FINDINGS: LUNGS AND PLEURA: Decrease in the right pleural effusion following thoracentesis. No pneu mothorax. Otherwise no change. MEDIASTINUM AND HILAR STRUCTURES: No masses. Contour normal. HEART AND VASCULAR STRUCTURES: Mild cardiomegaly. BONES: No acute findings. HARDWARE: Tracheostomy tube, PICC line, and hardware in the cervical spine. OTHER: No other significant finding. IMPRESSION: DECREASE IN THE RIGHT PLEURAL EFFUSION FOLLOWING THORACENTESIS. NO PNEUMOTHORAX. OTHER MEHTA NO CHANGE IN APPEARANCE OF THE CHEST. TECHNICAL DOCUMENTATION: JOB ID: [id number] 2010 [employer]- All Rights Reserved Reading location - IP/workstation name: [email or web address]
[2020-06-08 19:43] LABS: FLUID SOURCE LUNG; FLUID TYPE PLEURAL
[2020-06-08 19:44] LABS: FLUID APPEARANCE HAZY; FLUID COLOR YELLOW; FLUID VISCOSITY SLIGHTLY VISCOUS
--- NOTE | 2020-06-08 21:09 | RADIOLOGY REPORT (SQ) ---
EXAM DESCRIPTION: X-RAY CHEST- One View CLINICAL HISTORY: Status post thoracentesis. COMPARISON: June 08, 2020 at 5:27 PM. TECHNIQUE: Single view of the chest. Study submitted at 7:35 PM. FINDINGS: There are overlying EKG leads. Tracheostomy and left upper extremity PICC is in stable position. Compared to prior exam performed the same day there is interval increase in consolidative opacity overlying the right mid to lower lung zone. There is persistent blunting of the bilateral costophrenic angles. Findings are in the setting of multifocal patchy opacities bilaterally. No definite pneumothorax identified. Cardiomediastinal silhouette is stable in size. Osseous structures stable. IMPRESSION: Interval increase in opacity overlying the right mid to lower lung zone. Findings are nonspecific. Close attention on follow-up is recommended. CT chest could be considered for further evaluation if clinically indicated.
[2020-06-09] MEDS: DIPHENHYDRAMINE HCL 50 MG/ML VIAL IV PRN ×3 (02:13→23:20)
[2020-06-09] MEDS: HYDROXYZINE HCL INJ 50 MG/1 ML VIAL IM PRN ×3 (02:14→19:07)
[2020-06-09] MEDS: MORPHINE SULFATE 10 MG/5 ML ORAL SOLUTION UDCUP PO PRN ×5 (02:14→21:43)
[2020-06-09] MEDS: METOCLOPRAMIDE HCL INJ/PF 10 MG/2 ML SDV IV SCH ×3 (05:21→21:37)
[2020-06-09 06:38] LABS: HEMATOCRIT 22.5 % (37.9-51.0); MEAN CORPUSCULAR HEMOGLOBIN 27.5 pg (27.0-33.4); MEAN CORPUSCULAR HGB CONC 32.4 g/dL (32.0-36.0); MEAN CORPUSCULAR VOLUME 85 fl (80-97); PLATELET COUNT 430 10^3/uL (150-450); RED BLOOD COUNT 2.66 10^6/uL (4.35-5.55); RED CELL DISTRIBUTION WIDTH 17.7 % (11.5-14.0); WHITE BLOOD COUNT 14.5 10^3/uL (4.0-10.5)
[2020-06-09 06:42] LABS: BLOOD UREA NITROGEN 25 mg/dL (7-20); CALCIUM 8.5 mg/dL (8.4-10.2); GLUCOSE 110 mg/dL (75-110); IRON 13.5 ug/dL (49-181); POTASSIUM 5.5 mmol/L (3.6-5.0)
[2020-06-09 06:43] LABS: HEMOGLOBIN 7.3 g/dL (13.5-17.0)
[2020-06-09 06:53] LABS: CARBON DIOXIDE 38 mmol/L (22-30); CHLORIDE 97 mmol/L (98-107)
[2020-06-09 07:07] LABS: ANION GAP 2 (5-19)
[2020-06-09] MEDS ORDERED: NORMAL SALINE 250 ML IV PRN ×2 (07:27)
[2020-06-09] MEDS ORDERED: FUROSEMIDE 20 MG TABLET PO PRN (07:27)
[2020-06-09] MEDS: INSULIN REG, HUMAN 100 UNIT/ML 3 ML VIAL (PYX) SUBCUT SCH ×4 (08:05→17:33)
[2020-06-09] MEDS: IPRATROPIUM/ALBUTEROL 0.5-2.5 MG/3 ML AMPUL NEB PRN ×2 (08:51→20:46)
[2020-06-09] MEDS: BUSPIRONE HCL 10 MG TABLET PEG SCH ×2 (09:01→17:30)
[2020-06-09] MEDS: CALCIUM CARBONATE 500 MG TAB.CHEW PEG SCH ×2 (09:01→17:30)
[2020-06-09] MEDS: FUROSEMIDE INJ/PF 20 MG/2 ML SDV IV SCH ×2 (09:05→21:34)
[2020-06-09] MEDS: NIFEDIPINE 30 MG TAB.ER.24 PO SCH (09:06)
--- NOTE | 2020-06-09 13:59 | ADVANCED CARE ---
- Diagnosis (1) Acute on chronic respiratory failure with hypoxia and hypercapnia Diagnosis Current: Yes (2) Chronic pain Diagnosis Current: Yes (3) Anxiety about health Diagnosis Current: Yes (4) Bacteremia due to Enterococcus Diagnosis Current: Yes (5) Diabetes Diagnosis Current: Yes (6) Malnutrition Diagnosis Current: Yes (7) Acute kidney injury superimposed on chronic kidney disease Diagnosis Current: Yes (8) COVID-19 Diagnosis Current: Yes (9) Critical illness myopathy Diagnosis Current: Yes (10) Debility Diagnosis Current: Yes (11) Dysphagia Diagnosis Current: Yes (12) Leukocytosis Diagnosis Current: Yes (13) MSSA bacteremia Diagnosis Current: Yes (14) Bilateral pneumonia Diagnosis Current: Yes (15) Acute metabolic encephalopathy Diagnosis Current: Yes (16) Medical non-compliance Diagnosis Current: Yes (17) Candiduria Diagnosis Current: Yes (18) Dependent on ventilator Diagnosis Current: Yes (19) Anemia Diagnosis Current: Yes (20) Hyperkalemia Diagnosis Current: Yes Attendance: The patient, Stalin Sena. Resuscitation Status: Full Code Discussion: Discussed the patient's current clinical appearance, vital signs, and laboratory evaluation with recommendations to correct anemia with 2 units PRBC and iron infusion, continue to evaluate/manage his CHF with repeat echocardiogram and furosemide, and to investigate his increased oxygen requirement and ventilator dependence by repeat ABG and CT imaging (as was recommended by radiologist on chest x-ray report yesterday). Patient has refused ABG, blood transfusion, and CT. He is also declining Vital Signs and Accu-cheks. He has indicated to nursing that he is aware that worsening anemia, CHF, and respiratory failure will likely lead to cardiopulmonary arrest. When informed that these are interventions are potentially life saving, the patient shrugs his shoulders. Therefore, attempt was made to clarify his code status. Yesterday, patient had stated that he wanted to remain on the ventilator but be admitted into hospice care. Spoke w/ Christine Mendoza RN at [facility] to discuss ventilated patients seeking hospice care. She informs me that once the patient is admitted to hospice, the ventilator is turned off and then managed expectantly. Chronic vented patients who wish to remain on the ventilator are more appropriate for Palliative Care. She does confirm that patient's on palliative care are not managed w/ IV analgesics and the the hospice providers would utilize the patient's peg for medications. I then spoke with Mr. Sena. Mr. Sena states that he wants to be admitted to hospice to "get IV pain meds." He is advised that upon entering hospice care, his ventilator would be turned off. He shook his head 'no' and again stated that he wanted IV medications. Patient was redirected to code status; patient stated that he is a FULL CODE and confirmed that he wanted "everything to stay alive." He is then informed that hospice is not an option while remaining FULL CODE. He then stated that he just wanted IV pain medication. Mr. Sena was informed that oral morphine was available via PEG as was recommended by Pain Management and that IV analgesics would not be added to his regimen for management of his chronic pain and opiate dependence. He was then redirected back to his goals of care. Mr. Sena was informed that without further evaluation of his respiratory/cardiac status and correction of his anemia, I was concerned that he would code. He again stated that he "didn't care." I told him that our goal was to prevent a cardiac arrest and that if he wished to remain full code, it would be in his best interest to allow medical/nursing care to move forward. At this time, he stated "unless I get pain meds, I'm not letting you do anything." The conversation was concluded at this time. [Of note, the patient is currently receiving Morphine 10 mg via Peg q4h prn (which is an increase from his prior MME dosing both inpatient this admission and his home oxycodone use earlier in the year).] Care Planning Goals: FULL CODE Continued refusal of medications and care. Time Spent: 40 min
[2020-06-09] MEDS ORDERED: FERUMOXYTOL 510 MG in NORMAL SALINE 100 ML IV ONE (14:00)
--- NOTE | 2020-06-09 14:18 | PDOC PROGRESS REPORT ---
Subjective Date:: 06/09/20 Subjective:: Patient seen on morning rounds. He is awake and alert. He is vent dependent; currently on FiO2 100% and maintaining oxygen saturations in the mid to high 90s w/ RR ~24. Continues to request IV pain medications and refuse all other care/interventions. ROS is limited. He does appear to be comfortable and is not noted to be in acute distress at this time. Please see separate ACP note. Reason For Visit: MUCOUS PLUGGING, ACUTE HYPOXIC RESPIRATORY FAILURE Physical Exam Vital Signs: Temp Pulse Resp BP Pulse Ox 98.3 F 103 H 18 117/65 100 06/09/20 09:06 06/09/20 09:06 06/09/20 09:06 06/09/20 09:06 06/09/20 12:18 Intake & Output 06/08/20 06/09/20 06/10/20 06:59 06:59 06:59 Intake Total 2258 1704 Output Total 1350 2450 Balance 908 -746 Weight 87.6 kg 87 kg General appearance: PRESENT: no acute distress, well-developed. ABSENT: cooperative Head exam: PRESENT: atraumatic, normocephalic Eye exam: PRESENT: conjunctiva pink, EOMI, PERRLA. ABSENT: scleral icterus Mouth exam: PRESENT: moist, tongue midline Neck exam: PRESENT: tracheostomy Respiratory exam: PRESENT: decreased breath sounds - throughout; R>L, rhonchi, symmetrical, tachypnea, other - vent dependant 100% FiO2. ABSENT: rales, wheezes Cardiovascular exam: PRESENT: RRR, tachycardia. ABSENT: diastolic murmur, rubs, systolic murmur Vascular exam: PRESENT: pallor Extremities exam: PRESENT: full ROM. ABSENT: calf tenderness, clubbing, pedal edema Neurological exam: PRESENT: alert, awake, oriented to person, oriented to place, oriented to time, oriented to situation, CN II-XII grossly intact. ABSENT: motor sensory deficit Psychiatric exam: PRESENT: agitated. ABSENT: homicidal ideation, suicidal ideation Skin exam: PRESENT: dry, warm. ABSENT: cyanosis, intact, rash Results Laboratory Results: 06/09/20 05:20 06/09/20 05:20 06/08/20 06/08/20 06/09/20 15:50 17:20 05:20 WBC 14.5 H RBC 2.66 L Hgb 7.3 L Hct 22.5 L MCV 85 MCH 27.5 MCHC 32.4 RDW 17.7 H Plt Count 430 Carbonic Acid 1.99 H HCO3/H2CO3 Ratio 18:1 ABG pH 7.36 ABG pCO2 66.2 H ABG pO2 102.5 H ABG HCO3 36.7 H ABG O2 Saturation 97.3 ABG Base Excess 9.8 FiO2 100% Sodium Potassium Chloride Carbon Dioxide Anion Gap BUN Creatinine Est GFR ( Amer) Glucose Calcium Iron Ferritin Fluid Type PLEURAL Fluid Source LUNG Fluid Color YELLOW Fluid Appearance HAZY Fluid Viscosity SLIGHTLY VISCOUS Fluid WBC 367 Fluid RBC 88 06/09/20 05:20 WBC RBC Hgb Hct MCV MCH MCHC RDW Plt Count Carbonic Acid HCO3/H2CO3 Ratio ABG pH ABG pCO2 ABG pO2 ABG HCO3 ABG O2 Saturation ABG Base Excess FiO2 Sodium 136.6 L Potassium 5.5 H Chloride 97 L Carbon Dioxide 38 H Anion Gap 2 L BUN 25 H Creatinine 0.74 Est GFR ( Amer) > 60 Glucose 110 Calcium 8.5 Iron 13.5 L Ferritin 491.00 H Fluid Type Fluid Source Fluid Color Fluid Appearance Fluid Viscosity Fluid WBC Fluid RBC 04/20/20 04/23/20 04/23/20 09:00 01:55 01:55 Creatine Kinase < 20 L CK-MB (CK-2) 2.20 Troponin I < 0.012 0.082 NT-Pro-B Natriuret Pep [id number] H 04/23/20 04/23/20 04/23/20 05:58 08:22 14:50 Creatine Kinase < 20 L < 20 L CK-MB (CK-2) 2.24 Troponin I 0.066 NT-Pro-B Natriuret Pep 04/23/20 06/09/20 14:50 05:20 Creatine Kinase CK-MB (CK-2) 2.09 Troponin I 0.057 NT-Pro-B Natriuret Pep [id number] H Impressions: PICC Line Insertion 05/07/20 00:00 IMPRESSION: SUCCESSFUL PLACEMENT OF A 5 FR DUAL LUMEN 47 CM PICC IN THE LEFT BRACHIOCEPHALIC VEIN. KUB X-Ray 05/16/20 11:57 IMPRESSION: NG tube as described. Findings as described. Modified Barium Swallow 06/03/20 00:00 IMPRESSION: LARYNGEAL PENETRATION AND ASPIRATION ABOVE. HE WAS PLEASE SEE SPEECH PATHOLOGIST REPORT FOR OTHER FINDINGS AND RECOMMENDATIONS. Thoracentesis Ultrasound 06/08/20 14:12 IMPRESSION: SUCCESSFUL THORACENTESIS USING ULTRASOUND GUIDANCE. Chest X-Ray 06/08/20 19:30 IMPRESSION: Interval increase in opacity overlying the right mid to lower lung zone. Findings are nonspecific. Close attention on follow-up is recommended. CT chest could be considered for further evaluation if clinically indicated. Assessment and Plan - Diagnosis (1) Acute on chronic respiratory failure with hypoxia and hypercapnia Is this a current diagnosis for this admission?: Yes Plan: Tenuously improved today as compared to yesterday. Has a trach and on mechanical ventilation; multiple failed weaning trials. Has required increased FiO2 to maintain SpO2 over the last 24-36 hours. CXR today shows significantly increased right pleural effusion. Persistent patchy airspace opacities in both lungs; slight improvement in the left upper lobe. ABG resulted pH 7.31, pCO2 72.8, pO2 42.5, HCO3 35.8 was obtained shortly after desaturation event requiring short period of BVM while making adjustments to ventilator equipment. Repeat ABG on AVAPS/FiO2 100% pH 7.39, pCO2 64.6, pO2 62.3, HCO3 38.2 Placed back on Vent/FiO2 100% pH 7.36, pCO2 66.2, pO2 102.5, HCO3 38.8 Now s/p thoracentesis w/ ~800 ml removed. Pleural effusion w/ WBC 367, RBC 88. Serology pending. Cultures pending. Repeat CXR w/ Interval increase in opacity overlying the right middle to lower lung zones; recommend CT chest follow-up. CT chest pending. Continue to cautiously diurese with furosemide. Pleural effusion possibly related to CHF (echocardiogram (03/27/2020) shows LVEF 35 to 40%) vs infectious process (HAP/Aspiration PNA). WBC w/ gradual downward trend. Remains afebrile. Will hold on abx for now. (2) Chronic pain Qualifiers: Chronic pain type: other chronic pain Qualified Code(s): G89.29 - Other chronic pain Is this a current diagnosis for this admission?: Yes Plan: Continued difficulty with managing patient's opiate dependence, chronic pain, desire for IV route, and hypoxia. Consulted pain management today for recommendations. Spoke with BOZENA Garcia (who consulted w/ Dr. Richardson) regarding patient's prior opiate dependance, clinical course, and difficulty w/ managing pain while transitioning to an oral/peg option. They advise to discontinue IV analgesics. Recommend Morphine 10 mg via PEG q4h prn. If inadequate, may try Morphine 5 mg via PEG q3h prn. They advise against further adjustments/negotiations without evidence of new, acute, and objectively verifiable problem. (3) Anxiety about health Is this a current diagnosis for this admission?: Yes Plan: - has frequent attacks of anxiety - on buspar 10 BID - vistaril seems to help him during acute bouts. Started on 25M q8 PRN - would avoid starting him on benzo (4) Bacteremia due to Enterococcus Is this a current diagnosis for this admission?: Yes Plan: - completed antibiotics treatment TTE as recommended by ID is pending. (5) Diabetes Qualifiers: Diabetes mellitus type: type 2 Is this a current diagnosis for this admission?: Yes Plan: Controlled Accu-chek q6h with SSI. Has been declining insulin; fortunately bgl remains <200 radio performer consulted. (6) Malnutrition Qualifiers: Malnutrition type: protein-calorie malnutrition Protein-calorie malnutrition severity: severe Qualified Code(s): E43 - Unspecified severe protein-calorie malnutrition Is this a current diagnosis for this admission?: Yes Plan: Improving Now on Tube Feeds RD following. (7) Acute kidney injury superimposed on chronic kidney disease Is this a current diagnosis for this admission?: Yes Plan: Resolved. Cr stable; currently 0.74/bun 25 (8) COVID-19 Is this a current diagnosis for this admission?: Yes Plan: -resolved but patient has suffered significant comorbidity from it - no indication to retest - continue vent support. Wean as tolerated (9) Critical illness myopathy Is this a current diagnosis for this admission?: Yes Plan: -2/2 ICU and prolonged hospital stay - would need extensive rehab given that he has already been in the hospital for 3 months or more PT/OT/ST consulted (10) Debility Is this a current diagnosis for this admission?: Yes Plan: PT/OT/ST consulted Needs LTAC placement (11) Dysphagia Qualifiers: Dysphagia type: oropharyngeal phase Qualified Code(s): R13.12 - Dysphagia, oropharyngeal phase Is this a current diagnosis for this admission?: Yes Plan: Now with PEG -Failed swallow eval 06/03/20 - currently receiving feeding via PEG with free water flushes - Na stable radio performer consulted for TF and water recommendations. Nursing reports concern for high volume of gas when checking residuals. Unfortunately; patient is refusing ST sessions. They have provided bedside information. Will encourage patient to reconsider. (12) Leukocytosis Qualifiers: Leukocytosis type: unspecified Qualified Code(s): D72.829 - Elevated white blood cell count, unspecified Is this a current diagnosis for this admission?: Yes Plan: WBC 13.5> 16.2-> 15.2-> 14.4-> 14.5. Remains afebrile. Has completed multiple courses of abx so I am less inclined to start him on any medications unless he spikes a fever or takes a turn for the worse. Monitor closely for evidence of developing infectious process. (13) MSSA bacteremia Is this a current diagnosis for this admission?: Yes Plan: completed treatment Echocardiogram as recommended by ID is pending. (14) Bilateral pneumonia Qualifiers: Pneumonia type: aspiration pneumonia Lung location: lower lobe of lung Is this a current diagnosis for this admission?: Yes Plan: Resolved. (15) Acute metabolic encephalopathy Is this a current diagnosis for this admission?: Yes Plan: Resolved (16) Medical non-compliance Is this a current diagnosis for this admission?: Yes Plan: Continues to decline PT/OT/ST sessions. Per nursing; frequently refuses skin care and position changes. Intermittently refuses medications and labs. (17) Candiduria Is this a current diagnosis for this admission?: Yes Plan: Resolved. (18) Dependent on ventilator Is this a current diagnosis for this admission?: Yes (19) Anemia Qualifiers: Anemia type: due to chronic kidney disease Chronic kidney disease stage: stage 4 (severe) Qualified Code(s): N18.4 - Chronic kidney disease, stage 4 (severe); D63.1 - Anemia in chronic kidney disease Is this a current diagnosis for this admission?: Yes Plan: Hgb 7.2-> 7.8-> 7.3 Severe iron deficiency persists. No evidence of acute blood loss at this time. No IVF at this time. Continue to diurese as there is some evidence of fluid volume overload in patient with CHF (LVEF <35%.). 2 units PRBC pending; patient currently refusing. We will see if he would be agreeable to IV Feraheme today. (20) Hyperkalemia Is this a current diagnosis for this admission?: Yes Plan: Persists K 5.6-> 5.6-> Received lactulose x1 dose. Kayexalate x1 dose. Continue furosemide as above. Will start Veltassa. Follow up chemistry. - Time Time Spent with patient: 35 or more minutes Anticipated Discharge Disposition: [facility] Anticipated Discharge Timeframe: unknown
[2020-06-09] MEDS ORDERED: PATIROMER 8.4 GM SUSP PACKET PO SCH ×2 (17:00→22:00)
[2020-06-09] MEDS: ACETYLCYSTEINE 20% SOLN 800 MG/4 ML VIAL.NEB NEB SCH (20:46)
[2020-06-09] MEDS ORDERED: PATIROMER 8.4 GM SUSP PACKET ONE (22:05)
[2020-06-10] MEDS: INSULIN REG, HUMAN 100 UNIT/ML 3 ML VIAL (PYX) SUBCUT SCH ×4 (00:31→17:54)
[2020-06-10] MEDS: MORPHINE SULFATE 10 MG/5 ML ORAL SOLUTION UDCUP PO PRN ×7 (00:51→22:23)
[2020-06-10] MEDS: METOCLOPRAMIDE HCL INJ/PF 10 MG/2 ML SDV IV SCH ×3 (05:46→22:00)
[2020-06-10] MEDS: HYDROXYZINE HCL INJ 50 MG/1 ML VIAL IM PRN ×3 (05:48→22:39)
[2020-06-10] MEDS: IPRATROPIUM/ALBUTEROL 0.5-2.5 MG/3 ML AMPUL NEB PRN ×4 (06:45→20:12)
[2020-06-10 07:22] LABS: ALBUMIN BODY FLUID 0.7 g/dL (Not Estab.)
[2020-06-10] MEDS: ACETYLCYSTEINE 20% SOLN 800 MG/4 ML VIAL.NEB NEB SCH ×2 (08:01→20:12)
[2020-06-10] MEDS: CALCIUM CARBONATE 500 MG TAB.CHEW PEG SCH ×2 (09:07→17:47)
[2020-06-10] MEDS: DIPHENHYDRAMINE HCL 50 MG/ML VIAL IV PRN ×2 (09:07→17:47)
[2020-06-10] MEDS: BUSPIRONE HCL 10 MG TABLET PEG SCH ×2 (09:07→17:47)
[2020-06-10] MEDS: FUROSEMIDE INJ/PF 20 MG/2 ML SDV IV SCH (09:07)
[2020-06-10] MEDS ORDERED: ALTEPLASE INJ 2 MG VIAL (CATH CLEARANCE) IV ONE (12:45)
--- NOTE | 2020-06-10 13:06 | PDOC PROGRESS REPORT ---
Subjective Date:: 06/10/20 Subjective:: Patient seen on morning rounds. He is awake and alert. He is vent dependent; currently on FiO2 80% and maintaining oxygen saturations in the mid to high 90s w/ RR ~20. Does communicate with me a small amount by nodding his head yes or no. He mostly avoids eye contact and does not engage in further conversation offer to utilize the dry [employer] board. He is thanked for going to blood transfusion yesterday and informed that his vital signs are somewhat improved today with decreased heart rate, tachypnea, and improved oxygenation and blood pressure. He is again asked about follow-up lab work which he shakes his head no to. He then shakes his head no when I ask about CT imaging and echocardiogram. ROS is limited. He does appear to be comfortable and is not noted to be in acute distress at this time. Nursing reports that patient has refused multiple nursing interventions today including lab draws, vital signs, skin care, position changes. Reason For Visit: MUCOUS PLUGGING, ACUTE HYPOXIC RESPIRATORY FAILURE Physical Exam Vital Signs: Temp Pulse Resp BP Pulse Ox 98.2 F 96 20 105/60 98 06/10/20 09:54 06/10/20 08:02 06/10/20 08:02 06/10/20 08:02 06/10/20 08:02 Intake & Output 06/09/20 06/10/20 06/11/20 06:59 06:59 06:59 Intake Total 1704 4016 Output Total 2450 4700 Balance -746 -684 Weight 87 kg 86 kg General appearance: PRESENT: no acute distress, well-developed, well-nourished. ABSENT: cooperative Head exam: PRESENT: atraumatic, normocephalic Eye exam: PRESENT: conjunctiva pink, EOMI, PERRLA. ABSENT: scleral icterus Mouth exam: PRESENT: moist, tongue midline Teeth exam: PRESENT: poor dentation Neck exam: PRESENT: tracheostomy. ABSENT: carotid bruit, JVD, lymphadenopathy, thyromegaly Respiratory exam: PRESENT: decreased breath sounds - Throughout; R>L, rhonchi, symmetrical, other - PRVC dependent; FiO2 80%.. ABSENT: rales, wheezes Cardiovascular exam: PRESENT: RRR, +S1, +S2. ABSENT: diastolic murmur, rubs, systolic murmur Pulses: PRESENT: normal dorsalis pedis pul Vascular exam: PRESENT: normal capillary refill GI/Abdominal exam: PRESENT: normal bowel sounds, soft. ABSENT: distended, guarding, mass, organolmegaly, rebound, tenderness Rectal exam: PRESENT: deferred Extremities exam: PRESENT: full ROM. ABSENT: calf tenderness, clubbing, pedal edema Neurological exam: PRESENT: alert, awake, oriented to person, oriented to place, oriented to time, oriented to situation, CN II-XII grossly intact. ABSENT: motor sensory deficit Psychiatric exam: PRESENT: agitated, appropriate affect. ABSENT: homicidal ideation, suicidal ideation Skin exam: PRESENT: dry, warm. ABSENT: cyanosis, rash Results Laboratory Results: 06/09/20 05:20 06/09/20 05:20 06/08/20 06/09/20 17:20 12:47 Fluid Glucose 174 Fluid Albumin 0.7 Fluid LDH 138 Blood Type A POSITIVE Antibody Screen NEGATIVE 04/20/20 04/23/20 04/23/20 09:00 01:55 01:55 Creatine Kinase < 20 L CK-MB (CK-2) 2.20 Troponin I < 0.012 0.082 NT-Pro-B Natriuret Pep [id number] H 04/23/20 04/23/20 04/23/20 05:58 08:22 14:50 Creatine Kinase < 20 L < 20 L CK-MB (CK-2) 2.24 Troponin I 0.066 NT-Pro-B Natriuret Pep 04/23/20 06/09/20 14:50 05:20 Creatine Kinase CK-MB (CK-2) 2.09 Troponin I 0.057 NT-Pro-B Natriuret Pep [id number] H Impressions: PICC Line Insertion 05/07/20 00:00 IMPRESSION: SUCCESSFUL PLACEMENT OF A 5 FR DUAL LUMEN 47 CM PICC IN THE LEFT BRACHIOCEPHALIC VEIN. KUB X-Ray 05/16/20 11:57 IMPRESSION: NG tube as described. Findings as described. Modified Barium Swallow 06/03/20 00:00 IMPRESSION: LARYNGEAL PENETRATION AND ASPIRATION ABOVE. HE WAS PLEASE SEE SPEECH PATHOLOGIST REPORT FOR OTHER FINDINGS AND RECOMMENDATIONS. Thoracentesis Ultrasound 06/08/20 14:12 IMPRESSION: SUCCESSFUL THORACENTESIS USING ULTRASOUND GUIDANCE. Chest X-Ray 06/08/20 19:30 IMPRESSION: Interval increase in opacity overlying the right mid to lower lung zone. Findings are nonspecific. Close attention on follow-up is recommended. CT chest could be considered for further evaluation if clinically indicated. Assessment and Plan - Diagnosis (1) Acute on chronic respiratory failure with hypoxia and hypercapnia Is this a current diagnosis for this admission?: Yes Plan: Tenuously improved; now maintaining oxygen saturations of 98% on FiO2 80%. Continues to require vent PRVC setting. Has a trach and on mechanical ventilation; multiple failed weaning trials. Has required increased FiO2 to maintain SpO2 over the last 24-36 hours. CXR showed significantly increased right pleural effusion. Persistent patchy airspace opacities in both lungs; slight improvement in the left upper lobe. Repeat CXR w/ Interval increase in opacity overlying the right middle to lower lung zones; recommend CT chest follow-up. ABG resulted pH 7.31, pCO2 72.8, pO2 42.5, HCO3 35.8 was obtained shortly after desaturation event requiring short period of BVM while making adjustments to ventilator equipment. Repeat ABG on AVAPS/FiO2 100% pH 7.39, pCO2 64.6, pO2 62.3, HCO3 38.2 Placed back on Vent/FiO2 100% pH 7.36, pCO2 66.2, pO2 102.5, HCO3 38.8 Now s/p thoracentesis w/ ~800 ml removed. Pleural effusion w/ WBC 367, RBC 88. LDH 138, Albumin 0.7, Glucose 174. Cultures no growth at [address] chest pending; patient continues to refuse. Cautiously diuresed with IV furosemide; excellent urinary output. Unfortunately, refusing labs to assess K and renal function. Will resume his home dose furosemide 20 mg po daily as peripheral edema has resolved. Pleural effusion possibly related to CHF (echocardiogram (03/27/2020) shows LVEF 35 to 40%) vs infectious process (HAP/Aspiration PNA). WBC w/ gradual downward trend. Remains afebrile. Will hold on abx for now. (2) Chronic pain Qualifiers: Chronic pain type: other chronic pain Qualified Code(s): G89.29 - Other chronic pain Is this a current diagnosis for this admission?: Yes Plan: Continued difficulty with managing patient's opiate dependence, chronic pain, desire for IV route, and hypoxia. Consulted pain management today for recommendations. Spoke with BOZENA Garcia (who consulted w/ Dr. Richardson) regarding patient's prior opiate dependance, clinical course, and difficulty w/ managing pain while transitioning to an oral/peg option. They advise to discontinue IV analgesics. Recommended Morphine 10 mg via PEG q4h prn. They advise against further adjustments/negotiations without evidence of new, acute, and objectively verifiable problem. Did adjust schedule to Morphine 7.5 mg q3 hrs. This is the same 24 hr morphine dose as was recommended; however, the increased schedule has improved patient's behavior toward nursing. I do not anticipate this to continue and he will likely make attempts to renegotiate pain medications in the near future. (3) Anxiety about health Is this a current diagnosis for this admission?: Yes Plan: - has frequent attacks of anxiety - on buspar 10 BID - vistaril seems to help him during acute bouts. Started on 25M q8 PRN - would avoid starting him on benzo (4) Bacteremia due to Enterococcus Is this a current diagnosis for this admission?: Yes Plan: - completed antibiotics treatment TTE as recommended by ID is pending. (5) Diabetes Qualifiers: Diabetes mellitus type: type 2 Is this a current diagnosis for this admission?: Yes Plan: Controlled Accu-chek q6h with SSI. Has been declining insulin; fortunately bgl remains <200 principal product manager consulted. (6) Malnutrition Qualifiers: Malnutrition type: protein-calorie malnutrition Protein-calorie malnutrition severity: severe Qualified Code(s): E43 - Unspecified severe protein-calorie malnutrition Is this a current diagnosis for this admission?: Yes Plan: Improving Now on Tube Feeds RD following. (7) Acute kidney injury superimposed on chronic kidney disease Is this a current diagnosis for this admission?: Yes Plan: Resolved. Cr stable; currently 0.74/bun 25 (8) COVID-19 Is this a current diagnosis for this admission?: Yes Plan: -resolved but patient has suffered significant comorbidity from it - no indication to retest - continue vent support. Wean as tolerated (9) Critical illness myopathy Is this a current diagnosis for this admission?: Yes Plan: -2/2 ICU and prolonged hospital stay - would need extensive rehab given that he has already been in the hospital for 3 months or more PT/OT/ST consulted (10) Debility Is this a current diagnosis for this admission?: Yes Plan: PT/OT/ST consulted Needs LTAC placement (11) Dysphagia Qualifiers: Dysphagia type: oropharyngeal phase Qualified Code(s): R13.12 - Dysphagia, oropharyngeal phase Is this a current diagnosis for this admission?: Yes Plan: Now with PEG -Failed swallow eval 06/03/20 - currently receiving feeding via PEG with free water flushes - Na stable principal product manager consulted for TF and water recommendations. Nursing reports concern for high volume of gas when checking residuals. Unfortunately; patient is refusing ST sessions. They have provided bedside information. Will encourage patient to reconsider. (12) Leukocytosis Qualifiers: Leukocytosis type: unspecified Qualified Code(s): D72.829 - Elevated white blood cell count, unspecified Is this a current diagnosis for this admission?: Yes Plan: WBC 13.5> 16.2-> 15.2-> 14.4-> 14.5. Remains afebrile. Has completed multiple courses of abx so I am less inclined to start him on any medications unless he spikes a fever or takes a turn for the worse. Monitor closely for evidence of developing infectious process. (13) MSSA bacteremia Is this a current diagnosis for this admission?: Yes Plan: completed treatment Echocardiogram as recommended by ID is pending. (14) Bilateral pneumonia Qualifiers: Pneumonia type: aspiration pneumonia Lung location: lower lobe of lung Is this a current diagnosis for this admission?: Yes Plan: Resolved. (15) Acute metabolic encephalopathy Is this a current diagnosis for this admission?: Yes Plan: Resolved (16) Medical non-compliance Is this a current diagnosis for this admission?: Yes Plan: Continues to decline PT/OT/ST sessions. Per nursing; frequently refuses skin care and position changes. Intermittently refuses medications and labs. (17) Candiduria Is this a current diagnosis for this admission?: Yes Plan: Resolved. (18) Dependent on ventilator Is this a current diagnosis for this admission?: Yes (19) Anemia Qualifiers: Anemia type: due to chronic kidney disease Chronic kidney disease stage: stage 4 (severe) Qualified Code(s): N18.4 - Chronic kidney disease, stage 4 (severe); D63.1 - Anemia in chronic kidney disease Is this a current diagnosis for this admission?: Yes Plan: Hgb 7.2-> 7.8-> 7.3-> 2 units PRBC-> ? (refusing follow up labs) Severe iron deficiency persists. No evidence of acute blood loss at this time. No IVF at this time. Continue to diurese as there is some evidence of fluid volume overload in patient with CHF (LVEF <35%.). IV Feraheme today. (20) Hyperkalemia Is this a current diagnosis for this admission?: Yes Plan: Persists K 5.6-> 5.6-> 5.5 Received lactulose x1 dose. Kayexalate x1 dose. Continue furosemide as above. Veltassa x1 dose; have discontinued as patient is refusing follow up labs. Follow up chemistry. - Time Time Spent with patient: 25-34 minutes Medications reviewed and adjusted accordingly: Yes Anticipated Discharge Disposition: unknown Anticipated Discharge Timeframe: >72 hrs
[2020-06-10] MEDS: MAGNESIUM HYDROXIDE SUSP 30 ML UDCUP PEG PRN (13:56)
[2020-06-10] MEDS ORDERED: FERUMOXYTOL 510 MG in NORMAL SALINE 100 ML IV ONE (14:00)
[2020-06-11] MEDS: DIPHENHYDRAMINE HCL 50 MG/ML VIAL IV PRN ×3 (01:59→21:32)
[2020-06-11] MEDS: MORPHINE SULFATE 10 MG/5 ML ORAL SOLUTION UDCUP PO PRN ×6 (02:00→21:32)
[2020-06-11] MEDS: ONDANSETRON HCL INJ/PF 4 MG/2 ML SDV IV PRN ×2 (06:00→13:07)
[2020-06-11] MEDS: INSULIN REG, HUMAN 100 UNIT/ML 3 ML VIAL (PYX) SUBCUT SCH ×4 (06:17→18:18)
[2020-06-11] MEDS: METOCLOPRAMIDE HCL INJ/PF 10 MG/2 ML SDV IV SCH ×3 (06:17→21:33)
[2020-06-11] MEDS: HYDROXYZINE HCL INJ 50 MG/1 ML VIAL IM PRN ×2 (06:40→15:23)
[2020-06-11] MEDS: IPRATROPIUM/ALBUTEROL 0.5-2.5 MG/3 ML AMPUL NEB PRN ×2 (07:53→20:05)
[2020-06-11] MEDS: ACETYLCYSTEINE 20% SOLN 800 MG/4 ML VIAL.NEB NEB SCH ×2 (07:54→20:05)
[2020-06-11] MEDS: CALCIUM CARBONATE 500 MG TAB.CHEW PEG SCH ×2 (09:46→18:16)
[2020-06-11] MEDS: BUSPIRONE HCL 10 MG TABLET PEG SCH ×2 (09:46→18:16)
[2020-06-11] MEDS: FUROSEMIDE ORAL SOLN 40 MG/5 ML UDCUP PEG SCH (11:11)
--- NOTE | 2020-06-11 19:20 | PDOC PROGRESS REPORT ---
Subjective Date:: 06/11/20 Subjective:: er admitting physician: "FREDDIE LAZO JR is a 60 year old male, past medical history of type 2 diabetes hypertension CHF narcotic dependence CKD who was recently discharged from [facility] April 19, 2020 after being admitted for 89 days secondary to acute respiratory failure from COVID pneumonia. He was discharged with a tracheostomy tube uncuffed. Before discharge he has been able to speak and eat and the plan was to eventually remove the tracheostomy at [facility]. Sent back to the emergency room for evaluation of shortness of breath. EMS was called by the facility because the patient was diaphoretic with a blood glucose of 30 staff administered 1 mg glucagon in a tube and a half of oral glucose prior to EMS arrival and recheck of blood glucose was 40. Upon EMS arrival patient was pale with diminished breath sounds so he was placed on 15 L O2 via nonrebreather O2 sats went up to 86% and blood glucose was 147 upon ED arrival. In the emergency room he apparently continued to be hypoxic hence a trach cuff was placed and he was put back on mechanical ventilation briefly. He was also noted to be hypotensive hence central line was placed by Dr. Jean-Baptiste. Patient was given IV fluids. Repeat chest x-ray showed improvement of his diffuse bibasilar opacities compared from previous chest x-ray. Dr. Chandler evaluated him in the ED who felt that he does not need ICU admission. He was given 4 L of IV fluids. He was eventually transitioned to tracheal collar and was maintaining his O2 saturation to 95%. Patient was then admitted for further management. WBC count 19.5 in the ED he was given 1 dose of aztreonam and vancomycin." Per Previous Physician: "05/14/2020 MUCOUS PLUGGING, ACUTE HYPOXIC RESPIRATORY FAILURE Patient was seen early on in rounds this morning. At the time patient was noted to sound congested. He however had been suctioned and apparently no further suctioning required at that time. I discussed with the patient the need to be able to give him medications either through an NG tube or PEG tube IV fluids or TPN or combination of all these however patient refused. Patient was new to me today and after discussing with the nurse I did find out that he had been refusing multiple modalities of treatment and management. About 30 minutes after saw this patient when he was still relatively stable a rapid response was called and apparently he went into respiratory distress. He was found to be hypoxic. By the time he got there he was cyanotic. His oxygen saturation was in the 60s also. He was 100% oxygen and his BiPAP setting was changed. Multiple attempts to oxygenate him failed. It was felt that patient will be better served in the intensive care unit. Data Mining Analyst was informed and Came to assess patient. Patient was transferred to the unit. Please see Dr. Hernández's notes for further details chest x-ray obtained reveals diffuse opacification in the left chest possibly due to extensive infiltrate atelectasis collapse pleural effusion with improved aeration in the right lung base. This is consistent with his lung findings which shows grossly diminished air entry." 05/20/2020 Patient sent out of the ICU yesterday afternoon. Per my discussion with Dr. Chandler, patient has frequent mucous plugging and needs to be lavaged and suctioned by respiratory therapy frequently. It is likely the patient will continue mucous plugging intermittently and may need to be sent back to the ICU at some point. He has been maintained on trach collar with intermittent ventilatory support. Patient was asking for increases in his narcotics and I discussed the risks of respiratory depression if we were to pursue this. We will keep his narcotics at the current dosing and frequency for now. 05/21/2020 Patient had a episode of mucous plugging which resolved with aggressive lavage and suctioning by RT. Patient also had a problem with his NG feeding tube where it was somewhat displaced and nursing replaced this infected follow-up chest x- ray To confirm location. Blood culture on 05/09 remains negative. Latest chest x-ray shows diffuse bilateral disease which could potentially be worse. Patient is calm and resting today and does not have any new complaints. 05/22/2020 Patient appears rather calm today until I entered the room. He then wrote on his marker board and mouthed words to me stating he wants IV narcotics and IV sedatives. I discussed with him that adding these medications could be detrimental to his respiratory status. We will keep his pain medication as it is for now. I believe he is gradually improving as respiratory therapy is doing a great job lavaging and suctioning out large mucous plugs daily. Perhaps if we do enough of this every day, patient will be able to wean from the ventilator and tolerate trach collar alone. 05/23/2020 I had an extensive discussion with the patient today regarding PEG tube placement and he repeatedly stated he wanted to speak to the doctor and I repeatedly told him I am the doctor. I asked him if he would like me to get the surgeon involved to place a PEG tube. He refused to answer me at this point and did not seem interested in any my recommendations. We will ask respiratory therapy if he can get CPT to break up mucous plugs, continue lavaging and suctioning, and continue attempting to wean from the vent. Hemoglobin showed an acute drop down to 6.4 and this was rechecked to reveal 6.9. We will transfuse 1 unit PRBC which may help with his oxygenation as well. Will need to be mindful of the extra volume this will provide and watch for volume overload. Blood cell count is higher while hemoglobin and platelets are lower. Calcium is significantly lower we will replete this both IV and oral. 05/24/2020 Patient is resting comfortably today. He is off IV antibiotics and I have discontinued his IV Benadryl in place of Benadryl capsules that can go through his NG tube. We are still waiting on the patient to decide if he wants a PEG tube to be placed. It is my understanding that he cannot go to an acute care facility for rehab until he has a definitive feeding tube placed and he cannot go to a regular SNF while he is requiring the vent. If the patient wants a PEG tube or if we can wean him from the vent, disposition can move forward. Respiratory therapy will continue to lavage and suction the patient regularly and weaning from the ventilator. I discussed this with nursing. Hemoglobin is higher and potassium is lower today. His chest x-ray looks noticeably improved per my read. 05/25/2020 Patient fully awake and alert today and states repeatedly that he wants a PEG tube placed. He states that his pain after procedures is only well controlled on Dilaudid and I stated I would give him a low-dose of Dilaudid available as needed afterwards. I have consulted general surgery discussed case with Dr. Small who is agreed to consult on the patient. Patient will have his PEG tube placed tomorrow and will be n.p.o. at midnight tonight. Tube feeds will need to be held. We will make sure the patient has adequate pain control afterwards. Case management will need to start aggressively applying the patient for LTAC facilities starting on Wednesday. 05/26/2020 Patient successfully had PEG tube placed. He is having some additional pain I have increased the frequency of his IV Dilaudid. He understands we will begin tapering this tomorrow. Respiratory status is approximately the same as before. He still requiring frequent ventilator support. Latest blood cultures are negative. Plan is for patient to go to [facility] in the next few days if he is accepted. 05/27/2020 Patient states his pain is well controlled and he would like to start transitioning from IV narcotics to oral narcotics in anticipation of going to LTAC. I have switched his Dilaudid to oral I will leave a smaller dose available for breakthrough pain. Patient states he is motivated to perform more aggressive rehab and he knows that this cannot be accomplished inpatient. Patient's breathing is about the same as it was yesterday. Patient still requiring ventilator support. 05/28/20 Patient was seen and examined at bedside. Complains of pain lower abdomen however physical exam not consistent with the amount of pain he is complaining of. He is also requesting for more IV pain medications. He is status post PEG tube placement postop day 1 currently tolerating tube feedings. No significant change on his pulmonary status. 05/29/20 Patient was seen and examined at bedside. No new complains. Asking if he can have clear soup, I told him it would not be advisable now. He is asking for more IV pain medications as usual. 05/30/20 Patient seen and examined. Complaining of anxiety. I have increased his Buspar to 10 BID. Swallow eval for tomorrow. 05/31/20 Patient was seen and examined at bedside. He apparently refused swallow eval that was ordered today. But later when I rounded on him he claimed that did not even come. It has been noted before the he refuses a lot of therapeutic interventions. He is stable otherwise on mechanical ventilation. 06/01/20 Patient was seen and examined at bedside. he is again asking on when he can do a swallow eval. I have told him this will be done on wednesday. He was also asking if he has a medication for his anxiety and again I told him that he has Buspar BID. He should not be started on Xanax or any other benzo. 06/02/20 PAtient was seen and examined at bedside. He was asleep after receiving vistaril for anxiety. I have asked the respiratory therapist to try and wean him off with PSV. however he desaturates so he was put back on SIMV. 06/03/20 Patient was seen and examined at bedside. He still has episodes of anxiety and vistaril seems to have helped. He had just received his dilaudid prior to my visit hence he was very sleepy and did not want to talk much. He failed swallow eval today. 06/04/20 Patient was seen and examined at bedside. No new complains, had PT today. Afebrile. PEG tube feeding on going. 06/11/20 Care resumed today. He is complaining of pain and wanted more pain medications which I refused to give him and then he refused to engage in anymore conversation. He does appear comfortable otherwise. Notes from previous week reviewed. Reason For Visit: MUCOUS PLUGGING, ACUTE HYPOXIC RESPIRATORY FAILURE Physical Exam Vital Signs: Temp Pulse Resp BP Pulse Ox 98.4 F 96 15 112/62 98 06/11/20 10:00 06/11/20 14:00 06/11/20 09:25 06/11/20 09:25 06/11/20 15:44 Intake & Output 06/10/20 06/11/20 06/12/20 06:59 06:59 06:59 Intake Total 4016 2389 Output Total 4700 3025 Balance -684 -636 Weight 86 kg 85 kg General appearance: PRESENT: no acute distress, thin Head exam: PRESENT: atraumatic, normocephalic Eye exam: PRESENT: EOMI, PERRLA Mouth exam: PRESENT: moist Neck exam: PRESENT: full ROM Respiratory exam: PRESENT: clear to auscultation yousif, symmetrical, unlabored Cardiovascular exam: PRESENT: RRR, +S1, +S2 Vascular exam: PRESENT: normal capillary refill GI/Abdominal exam: PRESENT: normal bowel sounds, soft Extremities exam: PRESENT: +1 edema, other - has upper extremity swelling too Neurological exam: PRESENT: alert, awake, oriented to person, oriented to place, oriented to time Psychiatric exam: PRESENT: flat affect Skin exam: PRESENT: normal color Results Laboratory Results: 06/09/20 05:20 06/09/20 05:20 06/08/20 17:20 Pleural Fluid - Right Pleural Effusion Gram Stain - Final 04/20/20 04/23/20 04/23/20 09:00 01:55 01:55 Creatine Kinase < 20 L CK-MB (CK-2) 2.20 Troponin I < 0.012 0.082 NT-Pro-B Natriuret Pep [id number] H 04/23/20 04/23/20 04/23/20 05:58 08:22 14:50 Creatine Kinase < 20 L < 20 L CK-MB (CK-2) 2.24 Troponin I 0.066 NT-Pro-B Natriuret Pep 04/23/20 06/09/20 14:50 05:20 Creatine Kinase CK-MB (CK-2) 2.09 Troponin I 0.057 NT-Pro-B Natriuret Pep 60188 H Impressions: PICC Line Insertion 05/07/20 00:00 IMPRESSION: SUCCESSFUL PLACEMENT OF A 5 FR DUAL LUMEN 47 CM PICC IN THE LEFT BRACHIOCEPHALIC VEIN. KUB X-Ray 05/16/20 11:57 IMPRESSION: NG tube as described. Findings as described. Modified Barium Swallow 06/03/20 00:00 IMPRESSION: LARYNGEAL PENETRATION AND ASPIRATION ABOVE. HE WAS PLEASE SEE SPEECH PATHOLOGIST REPORT FOR OTHER FINDINGS AND RECOMMENDATIONS. Thoracentesis Ultrasound 06/08/20 14:12 IMPRESSION: SUCCESSFUL THORACENTESIS USING ULTRASOUND GUIDANCE. Chest X-Ray 06/08/20 19:30 IMPRESSION: Interval increase in opacity overlying the right mid to lower lung zone. Findings are nonspecific. Close attention on follow-up is recommended. CT chest could be considered for further evaluation if clinically indicated. Assessment and Plan - Diagnosis (1) Respiratory failure, [id number] Qualifiers: Respiratory failure complication: hypoxia Qualified Code(s): J96.21 - Acute and chronic respiratory failure with hypoxia Is this a current diagnosis for this admission?: Yes Plan: - Tenuously improved; now maintaining oxygen saturations of 98% on FiO2 80%. Co ntinues to require vent PRVC setting. Has a trach and on mechanical ventilation; multiple failed weaning trials. Has required increased FiO2 to maintain SpO2 over the last 24-36 hours. CXR showed significantly increased right pleural effusion. Persistent patchy airspace opacities in both lungs; slight improvement in the left upper lobe. Repeat CXR w/ Interval increase in opacity overlying the right middle to lower lung zones; recommend CT chest follow-up. - Now s/p thoracentesis w/ ~800 ml removed. Pleural effusion w/ WBC 367, RBC 88. LDH 138, Albumin 0.7, Glucose 174. Cultures no growth at [address] chest pending; patient continues to refuse. Cautiously diuresed with IV furosemide; excellent urinary output. Unfortunately, refusing labs to assess K and renal function. Will resume his home dose furosemide 20 mg po daily as peripheral edema has resolved. Pleural effusion possibly related to CHF (echocardiogram (03/27/2020) shows LVEF 35 to 40%) vs infectious process (HAP/Aspiration PNA). WBC w/ gradual downward trend. Remains afebrile. Will hold on abx for now. (2) Chronic pain Qualifiers: Chronic pain type: other chronic pain Qualified Code(s): G89.29 - Other chronic pain Is this a current diagnosis for this admission?: Yes Plan: - Continued difficulty with managing patient's opiate dependence, chronic pain, desire for IV route, and hypoxia. Consulted pain management today for recommendations. Spoke with Lili Velazco NP-C (who consulted w/ Dr. Richardson) regarding patient's prior opiate dependance, clinical course, and difficulty w/ managing pain while transitioning to an oral/peg option. They advise to discontinue IV analgesics. Recommended Morphine 10 mg via PEG q4h prn. They advise against further adjustments/negotiations without evidence of new, acute, and objectively verifiable problem. Did adjust schedule to Morphine 7.5 mg q3 hrs. This is the same 24 hr morphine dose as was recommended; however, the increased schedule has improved patient's behavior toward nursing. I do not anticipate this to continue and he will joe sesay make attempts to renegotiate pain medications in the near future. (3) Anxiety about health Is this a current diagnosis for this admission?: Yes Plan: - has frequent attacks of anxiety - on buspar 10 BID - vistaril seems to help him during acute bouts. Started on 25M q8 PRN - would avoid starting him on benzo (4) Leukocytosis Qualifiers: Leukocytosis type: unspecified Qualified Code(s): D72.829 - Elevated white blood cell count, unspecified Is this a current diagnosis for this admission?: Yes Plan: WBC 13.5> 16.2-> 15.2-> 14.4-> 14.5. Remains afebrile. Has completed multiple courses of abx so I am less inclined to start him on any medications unless he spikes a fever or takes a turn for the worse. Monitor closely for evidence of developing infectious process. (5) Critical illness myopathy Is this a current diagnosis for this admission?: Yes Plan: -2/2 ICU and prolonged hospital stay - would need extensive rehab given that he has already been in the hospital for 3 months or more PT/OT/ST consulted (6) Dysphagia Qualifiers: Dysphagia type: oropharyngeal phase Qualified Code(s): R13.12 - Dysphagia, oropharyngeal phase Is this a current diagnosis for this admission?: Yes Plan: Now with PEG -Failed swallow eval 06/03/20 - currently receiving feeding via PEG with free water flushes - Na stable jig operator consulted for TF and water recommendations. Nursing reports concern for high volume of gas when checking residuals. Unfortunately; patient is refusing ST sessions. They have provided bedside information. Will encourage patient to reconsider. (7) Bacteremia due to Enterococcus Is this a current diagnosis for this admission?: Yes Plan: - completed antibiotics treatment TTE as recommended by ID is pending. (8) MSSA bacteremia Is this a current diagnosis for this admission?: Yes Plan: completed treatment Echocardiogram as recommended by ID is pending. 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 Cr stable; currently 0.74/bun 25 (11) Acute metabolic encephalopathy Is this a current diagnosis for this admission?: Yes Plan: Resolved (12) Debility Is this a current diagnosis for this admission?: Yes Plan: PT/OT/ST consulted Needs LTAC placement (13) Dependent on ventilator Is this a current diagnosis for this admission?: Yes (14) COVID-19 Is this a current diagnosis for this admission?: Yes Plan: -resolved but patient has suffered significant comorbidity from it - no indication to retest - continue vent support. Wean as tolerated - Time Time Spent with patient: 15-24 minutes Anticipated Discharge Disposition: Care Home Care Facility Anticipated Discharge Timeframe: TBD
[2020-06-12] MEDS: INSULIN REG, HUMAN 100 UNIT/ML 3 ML VIAL (PYX) SUBCUT SCH ×4 (00:07→18:38)
[2020-06-12] MEDS: MORPHINE SULFATE 10 MG/5 ML ORAL SOLUTION UDCUP PO PRN ×5 (06:17→23:19)
[2020-06-12] MEDS: METOCLOPRAMIDE HCL INJ/PF 10 MG/2 ML SDV IV SCH ×3 (06:17→23:01)
[2020-06-12] MEDS: IPRATROPIUM/ALBUTEROL 0.5-2.5 MG/3 ML AMPUL NEB PRN ×2 (08:03→19:52)
[2020-06-12] MEDS: ACETYLCYSTEINE 20% SOLN 800 MG/4 ML VIAL.NEB NEB SCH ×2 (08:03→19:52)
[2020-06-12] MEDS: BUSPIRONE HCL 10 MG TABLET PEG SCH ×2 (10:25→18:41)
[2020-06-12] MEDS: CALCIUM CARBONATE 500 MG TAB.CHEW PEG SCH ×2 (10:25→18:41)
[2020-06-12] MEDS: FUROSEMIDE ORAL SOLN 40 MG/5 ML UDCUP PEG SCH (10:25)
[2020-06-12] MEDS: ONDANSETRON HCL INJ/PF 4 MG/2 ML SDV IV PRN ×3 (12:22→23:01)
[2020-06-12] MEDS: HYDROXYZINE HCL INJ 50 MG/1 ML VIAL IM PRN ×2 (13:11→23:20)
[2020-06-12] MEDS: DIPHENHYDRAMINE HCL 50 MG/ML VIAL IV PRN ×2 (13:12→23:30)
--- NOTE | 2020-06-12 15:58 | PDOC PROGRESS REPORT ---
Subjective Date:: 06/12/20 Subjective:: er admitting physician: "FREDDIE LAZO JR is a 60 year old male, past medical history of type 2 diabetes hypertension CHF narcotic dependence CKD who was recently discharged from [facility] April 19, 2020 after being admitted for 89 days secondary to acute respiratory failure from COVID pneumonia. He was discharged with a tracheostomy tube uncuffed. Before discharge he has been able to speak and eat and the plan was to eventually remove the tracheostomy at [facility]. Sent back to the emergency room for evaluation of shortness of breath. EMS was called by the facility because the patient was diaphoretic with a blood glucose of 30 staff administered 1 mg glucagon in a tube and a half of oral glucose prior to EMS arrival and recheck of blood glucose was 40. Upon EMS arrival patient was pale with diminished breath sounds so he was placed on 15 L O2 via nonrebreather O2 sats went up to 86% and blood glucose was 147 upon ED arrival. In the emergency room he apparently continued to be hypoxic hence a trach cuff was placed and he was put back on mechanical ventilation briefly. He was also noted to be hypotensive hence central line was placed by Dr. Jean-Baptiste. Patient was given IV fluids. Repeat chest x-ray showed improvement of his diffuse bibasilar opacities compared from previous chest x-ray. Dr. Chandler evaluated him in the ED who felt that he does not need ICU admission. He was given 4 L of IV fluids. He was eventually transitioned to tracheal collar and was maintaining his O2 saturation to 95%. Patient was then admitted for further management. WBC count 19.5 in the ED he was given 1 dose of aztreonam and vancomycin." Per Previous Physician: "05/14/2020 MUCOUS PLUGGING, ACUTE HYPOXIC RESPIRATORY FAILURE Patient was seen early on in rounds this morning. At the time patient was noted to sound congested. He however had been suctioned and apparently no further suctioning required at that time. I discussed with the patient the need to be able to give him medications either through an NG tube or PEG tube IV fluids or TPN or combination of all these however patient refused. Patient was new to me today and after discussing with the nurse I did find out that he had been refusing multiple modalities of treatment and management. About 30 minutes after saw this patient when he was still relatively stable a rapid response was called and apparently he went into respiratory distress. He was found to be hypoxic. By the time he got there he was cyanotic. His oxygen saturation was in the 60s also. He was 100% oxygen and his BiPAP setting was changed. Multiple attempts to oxygenate him failed. It was felt that patient will be better served in the intensive care unit. Butter Melter was informed and Came to assess patient. Patient was transferred to the unit. Please see Dr. Hernández's notes for further details chest x-ray obtained reveals diffuse opacification in the left chest possibly due to extensive infiltrate atelectasis collapse pleural effusion with improved aeration in the right lung base. This is consistent with his lung findings which shows grossly diminished air entry." 05/20/2020 Patient sent out of the ICU yesterday afternoon. Per my discussion with Dr. Chandler, patient has frequent mucous plugging and needs to be lavaged and suctioned by respiratory therapy frequently. It is likely the patient will continue mucous plugging intermittently and may need to be sent back to the ICU at some point. He has been maintained on trach collar with intermittent ventilatory support. Patient was asking for increases in his narcotics and I discussed the risks of respiratory depression if we were to pursue this. We will keep his narcotics at the current dosing and frequency for now. 05/21/2020 Patient had a episode of mucous plugging which resolved with aggressive lavage and suctioning by RT. Patient also had a problem with his NG feeding tube where it was somewhat displaced and nursing replaced this infected follow-up chest x- ray To confirm location. Blood culture on 05/09 remains negative. Latest chest x-ray shows diffuse bilateral disease which could potentially be worse. Patient is calm and resting today and does not have any new complaints. 05/22/2020 Patient appears rather calm today until I entered the room. He then wrote on his marker board and mouthed words to me stating he wants IV narcotics and IV sedatives. I discussed with him that adding these medications could be detrimental to his respiratory status. We will keep his pain medication as it is for now. I believe he is gradually improving as respiratory therapy is doing a great job lavaging and suctioning out large mucous plugs daily. Perhaps if we do enough of this every day, patient will be able to wean from the ventilator and tolerate trach collar alone. 05/23/2020 I had an extensive discussion with the patient today regarding PEG tube placement and he repeatedly stated he wanted to speak to the doctor and I repeatedly told him I am the doctor. I asked him if he would like me to get the surgeon involved to place a PEG tube. He refused to answer me at this point and did not seem interested in any my recommendations. We will ask respiratory therapy if he can get CPT to break up mucous plugs, continue lavaging and suctioning, and continue attempting to wean from the vent. Hemoglobin showed an acute drop down to 6.4 and this was rechecked to reveal 6.9. We will transfuse 1 unit PRBC which may help with his oxygenation as well. Will need to be mindful of the extra volume this will provide and watch for volume overload. Blood cell count is higher while hemoglobin and platelets are lower. Calcium is significantly lower we will replete this both IV and oral. 05/24/2020 Patient is resting comfortably today. He is off IV antibiotics and I have discontinued his IV Benadryl in place of Benadryl capsules that can go through his NG tube. We are still waiting on the patient to decide if he wants a PEG tube to be placed. It is my understanding that he cannot go to an acute care facility for rehab until he has a definitive feeding tube placed and he cannot go to a regular SNF while he is requiring the vent. If the patient wants a PEG tube or if we can wean him from the vent, disposition can move forward. Respiratory therapy will continue to lavage and suction the patient regularly and weaning from the ventilator. I discussed this with nursing. Hemoglobin is higher and potassium is lower today. His chest x-ray looks noticeably improved per my read. 05/25/2020 Patient fully awake and alert today and states repeatedly that he wants a PEG tube placed. He states that his pain after procedures is only well controlled on Dilaudid and I stated I would give him a low-dose of Dilaudid available as needed afterwards. I have consulted general surgery discussed case with Dr. Small who is agreed to consult on the patient. Patient will have his PEG tube placed tomorrow and will be n.p.o. at midnight tonight. Tube feeds will need to be held. We will make sure the patient has adequate pain control afterwards. Case management will need to start aggressively applying the patient for LTAC facilities starting on Wednesday. 05/26/2020 Patient successfully had PEG tube placed. He is having some additional pain I have increased the frequency of his IV Dilaudid. He understands we will begin tapering this tomorrow. Respiratory status is approximately the same as before. He still requiring frequent ventilator support. Latest blood cultures are negative. Plan is for patient to go to [facility] in the next few days if he is accepted. 05/27/2020 Patient states his pain is well controlled and he would like to start transitioning from IV narcotics to oral narcotics in anticipation of going to LTAC. I have switched his Dilaudid to oral I will leave a smaller dose available for breakthrough pain. Patient states he is motivated to perform more aggressive rehab and he knows that this cannot be accomplished inpatient. Patient's breathing is about the same as it was yesterday. Patient still requiring ventilator support. 05/28/20 Patient was seen and examined at bedside. Complains of pain lower abdomen however physical exam not consistent with the amount of pain he is complaining of. He is also requesting for more IV pain medications. He is status post PEG tube placement postop day 1 currently tolerating tube feedings. No significant change on his pulmonary status. 05/29/20 Patient was seen and examined at bedside. No new complains. Asking if he can have clear soup, I told him it would not be advisable now. He is asking for more IV pain medications as usual. 05/30/20 Patient seen and examined. Complaining of anxiety. I have increased his Buspar to 10 BID. Swallow eval for tomorrow. 05/31/20 Patient was seen and examined at bedside. He apparently refused swallow eval that was ordered today. But later when I rounded on him he claimed that did not even come. It has been noted before the he refuses a lot of therapeutic interventions. He is stable otherwise on mechanical ventilation. 06/01/20 Patient was seen and examined at bedside. he is again asking on when he can do a swallow eval. I have told him this will be done on wednesday. He was also asking if he has a medication for his anxiety and again I told him that he has Buspar BID. He should not be started on Xanax or any other benzo. 06/02/20 PAtient was seen and examined at bedside. He was asleep after receiving vistaril for anxiety. I have asked the respiratory therapist to try and wean him off with PSV. however he desaturates so he was put back on SIMV. 06/03/20 Patient was seen and examined at bedside. He still has episodes of anxiety and vistaril seems to have helped. He had just received his dilaudid prior to my visit hence he was very sleepy and did not want to talk much. He failed swallow eval today. 06/04/20 Patient was seen and examined at bedside. No new complains, had PT today. Afebrile. PEG tube feeding on going. 06/11/20 Care resumed today. He is complaining of pain and wanted more pain medications which I refused to give him and then he refused to engage in anymore conversation. He does appear comfortable otherwise. Notes from previous week reviewed. He was transfused with 2 u PRNC due to anemia. Also underwent thoracentesis with removal of 800 ml pleural fluid. 06/12/20 He was seen and examined at bedside. He is still refusing lab work ups and repeat CT chest despite explaining the medial necessity for this. He refuses to engage in any more conversation. Reason For Visit: MUCOUS PLUGGING, ACUTE HYPOXIC RESPIRATORY FAILURE Physical Exam Vital Signs: Temp Pulse Resp BP Pulse Ox 98.5 F 104 H 21 H 126/66 H 94 06/12/20 12:27 06/12/20 12:27 06/12/20 12:27 06/12/20 12:27 06/12/20 12:27 Intake & Output 06/11/20 06/12/20 06/13/20 06:59 06:59 06:59 Intake Total 2389 1105 Output Total 3025 1375 1000 Balance -636 270 -1000 Weight 85 kg 86.2 kg General appearance: PRESENT: mild distress - uncooperative, refuses labs, other Head exam: PRESENT: atraumatic, normocephalic Eye exam: PRESENT: EOMI, PERRLA Mouth exam: PRESENT: moist Neck exam: PRESENT: full ROM Respiratory exam: PRESENT: rales, symmetrical, unlabored Cardiovascular exam: PRESENT: RRR, +S1, +S2 GI/Abdominal exam: PRESENT: normal bowel sounds, soft. ABSENT: rebound, tenderness Extremities exam: PRESENT: +1 edema Musculoskeletal exam: PRESENT: other - significant atrophy of his lower extremity muscles Neurological exam: PRESENT: alert, awake, oriented to person, oriented to place, oriented to time, oriented to situation Psychiatric exam: PRESENT: normal mood Skin exam: PRESENT: normal color Results Laboratory Results: 06/09/20 05:20 06/09/20 05:20 06/08/20 17:20 Pleural Fluid - Right Pleural Effusion Gram Stain - Final 06/08/20 17:20 Pleural Fluid - Right Pleural Effusion Body Fluid Culture - Final NO AEROBIC OR ANAEROBIC ORGANISMS RECOVERED 04/20/20 04/23/20 04/23/20 09:00 01:55 01:55 Creatine Kinase < 20 L CK-MB (CK-2) 2.20 Troponin I < 0.012 0.082 NT-Pro-B Natriuret Pep [id number] H 04/23/20 04/23/20 04/23/20 05:58 08:22 14:50 Creatine Kinase < 20 L < 20 L CK-MB (CK-2) 2.24 Troponin I 0.066 NT-Pro-B Natriuret Pep 04/23/20 06/09/20 14:50 05:20 Creatine Kinase CK-MB (CK-2) 2.09 Troponin I 0.057 NT-Pro-B Natriuret Pep [id number] H Impressions: PICC Line Insertion 05/07/20 00:00 IMPRESSION: SUCCESSFUL PLACEMENT OF A 5 FR DUAL LUMEN 47 CM PICC IN THE LEFT BRACHIOCEPHALIC VEIN. KUB X-Ray 05/16/20 11:57 IMPRESSION: NG tube as described. Findings as described. Modified Barium Swallow 06/03/20 00:00 IMPRESSION: LARYNGEAL PENETRATION AND ASPIRATION ABOVE. HE WAS PLEASE SEE SPEECH PATHOLOGIST REPORT FOR OTHER FINDINGS AND RECOMMENDATIONS. Thoracentesis Ultrasound 06/08/20 14:12 IMPRESSION: SUCCESSFUL THORACENTESIS USING ULTRASOUND GUIDANCE. Chest X-Ray 06/08/20 19:30 IMPRESSION: Interval increase in opacity overlying the right mid to lower lung zone. Findings are nonspecific. Close attention on follow-up is recommended. CT chest could be considered for further evaluation if clinically indicated. Assessment and Plan - Diagnosis (1) Respiratory failure, [id number] Qualifiers: Respiratory failure complication: hypoxia Qualified Code(s): J96.21 - Acute and chronic respiratory failure with hypoxia Is this a current diagnosis for this admission?: Yes Plan: - Tenuously improved; now maintaining oxygen saturations of 98% on FiO2 80%. Continues to require vent PRVC setting. Has a trach and on mechanical ventilation; multiple failed weaning trials. -CXR showed significantly increased right pleural effusion. Persistent patchy airspace opacities in both lungs; slight improvement in the left upper lobe. -Repeat CXR w/ Interval increase in opacity overlying the right middle to lower lung zones; recommend CT chest follow-up. - Now s/p thoracentesis w/ ~800 ml removed. -Pleural effusion w/ WBC 367, RBC 88. -LDH 138, Albumin 0.7, Glucose 174. -Cultures no growth at 48 hrs. -would need repeat CT chest patient continues to refuse. -Remains afebrile. Will hold on abx for now. -I have asked the Respiratory therapist to decrease his FIO2 to maintain sats of 93% (2) Chronic pain Qualifiers: Chronic pain type: other chronic pain Qualified Code(s): G89.29 - Other chronic pain Is this a current diagnosis for this admission?: Yes Plan: - Continued difficulty with managing patient's opiate dependence, chronic pain, desire for IV route, and hypoxia. Consulted pain management today for recommendations. Spoke with Lili Velazco NP-C (who consulted w/ Dr. Richardson) regarding patient's prior opiate dependance, clinical course, and difficulty w/ managing p ain while transitioning to an oral/peg option. They advise to discontinue IV analgesics. Recommended Morphine 10 mg via PEG q4h prn. They advise against further adjustments/negotiations without evidence of new, acute, and objectively verifiable problem. Did adjust schedule to Morphine 7.5 mg q3 hrs. This is the same 24 hr morphine dose as was recommended; however, the increased schedule has improved patient's behavior toward nursing. I do not anticipate this to continue and he will likely make attempts to renegotiate pain medications in the near future. (3) Anxiety about health Is this a current diagnosis for this admission?: Yes Plan: - has frequent attacks of anxiety - on buspar 10 BID - vistaril seems to help him during acute bouts. Started on 25M q8 PRN - would avoid starting him on benzo (4) Leukocytosis Qualifiers: Leukocytosis type: unspecified Qualified Code(s): D72.829 - Elevated white blood cell count, unspecified Is this a current diagnosis for this admission?: Yes Plan: WBC 13.5> 16.2-> 15.2-> 14.4-> 14.5. Remains afebrile. Has completed multiple courses of abx so I am less inclined to start him on any medications unless he spikes a fever or takes a turn for the worse. Monitor closely for evidence of developing infectious process. (5) Critical illness myopathy Is this a current diagnosis for this admission?: Yes Plan: -2/2 ICU and prolonged hospital stay - would need extensive rehab given that he has already been in the hospital for 3 months or more PT/OT/ST consulted (6) Dysphagia Qualifiers: Dysphagia type: oropharyngeal phase Qualified Code(s): R13.12 - Dysphagia, oropharyngeal phase Is this a current diagnosis for this admission?: Yes Plan: Now with PEG -Failed swallow eval 06/03/20 - currently receiving feeding via PEG with free water flushes - Na stable salesperson sheet music consulted for TF and water recommendations. Nursing reports concern for high volume of gas when checking residuals. Unfortunately; patient is refusing ST sessions. They have provided bedside information. Will encourage patient to reconsider. (7) Bacteremia due to Enterococcus Is this a current diagnosis for this admission?: Yes Plan: - completed antibiotics treatment TTE as recommended by ID is pending. (8) MSSA bacteremia Is this a current diagnosis for this admission?: Yes Plan: completed treatment Echocardiogram as recommended by ID is pending. (9) Hyperglycemia due to type 2 diabetes mellitus Qualifiers: Diabetes mellitus exterminator termite insulin use: with exterminator termite use Qualified Code(s): E11.65 - Type 2 diabetes mellitus with hyperglycemia; Z79.4 - FDC (current) use of insulin Is this a current diagnosis for this admission?: Yes Plan: - currently on scheduled insulin (10) Acute kidney injury superimposed on chronic kidney disease Is this a current diagnosis for this admission?: Yes Plan: Resolved. (11) Acute metabolic encephalopathy Is this a current diagnosis for this admission?: Yes Plan: Resolved (12) Debility Is this a current diagnosis for this admission?: Yes Plan: PT/OT/ST consulted Needs LTAC placement (13) Dependent on ventilator Is this a current diagnosis for this admission?: Yes (14) COVID-19 Is this a current diagnosis for this admission?: Yes Plan: -resolved but patient has suffered significant comorbidity from it - no indication to retest - continue vent support. Wean as tolerated - Plan Summary Summary: Patient has repeatedly refused lab draws and sometimes even vital signs monitoring despite frequent prompting by nurses and by me. I am unsure how to proceed with caring for him adequately if he continues to refuse interventions that can potentially improve his medical status. Will reconsult ethics committee. - Time Time Spent with patient: 25-34 minutes Anticipated Discharge Disposition: [facility] Anticipated Discharge Timeframe: TBD
[2020-06-13] MEDS: INSULIN REG, HUMAN 100 UNIT/ML 3 ML VIAL (PYX) SUBCUT SCH ×4 (01:08→18:25)
[2020-06-13 01:16] LABS: C DIFFICILE GDH NEGATIVE (NEGATIVE)
[2020-06-13] MEDS: MORPHINE SULFATE 10 MG/5 ML ORAL SOLUTION UDCUP PO PRN ×4 (04:33→18:14)
[2020-06-13] MEDS: METOCLOPRAMIDE HCL INJ/PF 10 MG/2 ML SDV IV SCH ×3 (05:39→15:54)
[2020-06-13] MEDS: IPRATROPIUM/ALBUTEROL 0.5-2.5 MG/3 ML AMPUL NEB PRN ×2 (07:57→14:22)
[2020-06-13] MEDS: ACETYLCYSTEINE 20% SOLN 800 MG/4 ML VIAL.NEB NEB SCH ×2 (07:58→20:57)
[2020-06-13] MEDS: FUROSEMIDE ORAL SOLN 40 MG/5 ML UDCUP PEG SCH (12:07)
[2020-06-13] MEDS: BUSPIRONE HCL 10 MG TABLET PEG SCH ×2 (12:08→18:25)
[2020-06-13] MEDS: CALCIUM CARBONATE 500 MG TAB.CHEW PEG SCH ×2 (12:08→18:27)
[2020-06-13] MEDS: DIPHENHYDRAMINE HCL 50 MG/ML VIAL IV PRN (15:10)
[2020-06-13] MEDS: HYDROXYZINE HCL INJ 50 MG/1 ML VIAL IM PRN (15:23)
[2020-06-13 16:27] LABS: HEMOGLOBIN 8.9 g/dL (13.5-17.0); MEAN CORPUSCULAR HGB CONC 31.9 g/dL (32.0-36.0); MEAN CORPUSCULAR VOLUME 84 fl (80-97); PLATELET COUNT 404 10^3/uL (150-450); RED BLOOD COUNT 3.31 10^6/uL (4.35-5.55); RED CELL DISTRIBUTION WIDTH 18.5 % (11.5-14.0); WHITE BLOOD COUNT 23.3 10^3/uL (4.0-10.5)
[2020-06-13 16:43] LABS: ALBUMIN 2.2 g/dL (3.5-5.0); ALKALINE PHOSPHATASE 131 U/L (38-126); ANION GAP 7 (5-19); ASPARTATE AMINO TRANSFERASE 20 U/L (17-59); BILIRUBIN,DIRECT 0.3 mg/dL (0.0-0.4); BILIRUBIN,TOTAL 0.5 mg/dL (0.2-1.3); BLOOD UREA NITROGEN 28 mg/dL (7-20); CALCIUM 8.6 mg/dL (8.4-10.2); CARBON DIOXIDE 35 mmol/L (22-30); CHLORIDE 93 mmol/L (98-107); POTASSIUM 4.8 mmol/L (3.6-5.0); TOTAL PROTEIN 5.9 g/dL (6.3-8.2)
[2020-06-13 16:51] LABS: ABSOLUTE LYMPHOCYTES# (MANUAL) 0.2 10^3/uL (0.5-4.7); ABSOLUTE MONOCYTES # (MANUAL) 1.6 10^3/uL (0.1-1.4); BAND NEUTROPHILS % (MANUAL) 1 % (3-5); BASOPHILS % (MANUAL) 0 % (0-2); EOSINOPHILS % (MANUAL) 0 % (0-6); LYMPHOCYTES % (MANUAL) 1 % (13-45); MONOCYTES % (MANUAL) 7 % (3-13); SEGMENTED NEUTROPHILS % (MAN) 91 % (42-78); TOTAL CELLS COUNTED 100
[2020-06-13 16:52] LABS: ANISOCYTOSIS 1+; OVALOCYTES SLIGHT; PLATELET CLUMPS PRESENT; PLATELET COMMENT ADEQUATE
[2020-06-13 16:53] LABS: GLUCOSE 67 mg/dL (75-110)
[2020-06-13] MEDS: ONDANSETRON HCL INJ/PF 4 MG/2 ML SDV IV PRN (18:14)
--- NOTE | 2020-06-13 18:38 | PDOC PROGRESS REPORT ---
Subjective Date:: 06/13/20 Subjective:: er admitting physician: "FREDDIE LAZO JR is a 60 year old male, past medical history of type 2 diabetes hypertension CHF narcotic dependence CKD who was recently discharged from [facility] April 19, 2020 after being admitted for 89 days secondary to acute respiratory failure from COVID pneumonia. He was discharged with a tracheostomy tube uncuffed. Before discharge he has been able to speak and eat and the plan was to eventually remove the tracheostomy at [facility]. Sent back to the emergency room for evaluation of shortness of breath. EMS was called by the facility because the patient was diaphoretic with a blood glucose of 30 staff administered 1 mg glucagon in a tube and a half of oral glucose prior to EMS arrival and recheck of blood glucose was 40. Upon EMS arrival patient was pale with diminished breath sounds so he was placed on 15 L O2 via nonrebreather O2 sats went up to 86% and blood glucose was 147 upon ED arrival. In the emergency room he apparently continued to be hypoxic hence a trach cuff was placed and he was put back on mechanical ventilation briefly. He was also noted to be hypotensive hence central line was placed by Dr. Jean-Baptiste. Patient was given IV fluids. Repeat chest x-ray showed improvement of his diffuse bibasilar opacities compared from previous chest x-ray. Dr. Chandler evaluated him in the ED who felt that he does not need ICU admission. He was given 4 L of IV fluids. He was eventually transitioned to tracheal collar and was maintaining his O2 saturation to 95%. Patient was then admitted for further management. WBC count 19.5 in the ED he was given 1 dose of aztreonam and vancomycin." Per Previous Physician: "05/14/2020 MUCOUS PLUGGING, ACUTE HYPOXIC RESPIRATORY FAILURE Patient was seen early on in rounds this morning. At the time patient was noted to sound congested. He however had been suctioned and apparently no further suctioning required at that time. I discussed with the patient the need to be able to give him medications either through an NG tube or PEG tube IV fluids or TPN or combination of all these however patient refused. Patient was new to me today and after discussing with the nurse I did find out that he had been refusing multiple modalities of treatment and management. About 30 minutes after saw this patient when he was still relatively stable a rapid response was called and apparently he went into respiratory distress. He was found to be hypoxic. By the time he got there he was cyanotic. His oxygen saturation was in the 60s also. He was 100% oxygen and his BiPAP setting was changed. Multiple attempts to oxygenate him failed. It was felt that patient will be better served in the intensive care unit. Cigarette Making Examiner was informed and Came to assess patient. Patient was transferred to the unit. Please see Dr. Hernández's notes for further details chest x-ray obtained reveals diffuse opacification in the left chest possibly due to extensive infiltrate atelectasis collapse pleural effusion with improved aeration in the right lung base. This is consistent with his lung findings which shows grossly diminished air entry." 05/20/2020 Patient sent out of the ICU yesterday afternoon. Per my discussion with Dr. Chandler, patient has frequent mucous plugging and needs to be lavaged and suctioned by respiratory therapy frequently. It is likely the patient will continue mucous plugging intermittently and may need to be sent back to the ICU at some point. He has been maintained on trach collar with intermittent ventilatory support. Patient was asking for increases in his narcotics and I discussed the risks of respiratory depression if we were to pursue this. We will keep his narcotics at the current dosing and frequency for now. 05/21/2020 Patient had a episode of mucous plugging which resolved with aggressive lavage and suctioning by RT. Patient also had a problem with his NG feeding tube where it was somewhat displaced and nursing replaced this infected follow-up chest x- ray To confirm location. Blood culture on 05/09 remains negative. Latest chest x-ray shows diffuse bilateral disease which could potentially be worse. Patient is calm and resting today and does not have any new complaints. 05/22/2020 Patient appears rather calm today until I entered the room. He then wrote on his marker board and mouthed words to me stating he wants IV narcotics and IV sedatives. I discussed with him that adding these medications could be detrimental to his respiratory status. We will keep his pain medication as it is for now. I believe he is gradually improving as respiratory therapy is doing a great job lavaging and suctioning out large mucous plugs daily. Perhaps if we do enough of this every day, patient will be able to wean from the ventilator and tolerate trach collar alone. 05/23/2020 I had an extensive discussion with the patient today regarding PEG tube placement and he repeatedly stated he wanted to speak to the doctor and I repeatedly told him I am the doctor. I asked him if he would like me to get the surgeon involved to place a PEG tube. He refused to answer me at this point and did not seem interested in any my recommendations. We will ask respiratory therapy if he can get CPT to break up mucous plugs, continue lavaging and suctioning, and continue attempting to wean from the vent. Hemoglobin showed an acute drop down to 6.4 and this was rechecked to reveal 6.9. We will transfuse 1 unit PRBC which may help with his oxygenation as well. Will need to be mindful of the extra volume this will provide and watch for volume overload. Blood cell count is higher while hemoglobin and platelets are lower. Calcium is significantly lower we will replete this both IV and oral. 05/24/2020 Patient is resting comfortably today. He is off IV antibiotics and I have discontinued his IV Benadryl in place of Benadryl capsules that can go through his NG tube. We are still waiting on the patient to decide if he wants a PEG tube to be placed. It is my understanding that he cannot go to an acute care facility for rehab until he has a definitive feeding tube placed and he cannot go to a regular SNF while he is requiring the vent. If the patient wants a PEG tube or if we can wean him from the vent, disposition can move forward. Respiratory therapy will continue to lavage and suction the patient regularly and weaning from the ventilator. I discussed this with nursing. Hemoglobin is higher and potassium is lower today. His chest x-ray looks noticeably improved per my read. 05/25/2020 Patient fully awake and alert today and states repeatedly that he wants a PEG tube placed. He states that his pain after procedures is only well controlled on Dilaudid and I stated I would give him a low-dose of Dilaudid available as needed afterwards. I have consulted general surgery discussed case with Dr. Small who is agreed to consult on the patient. Patient will have his PEG tube placed tomorrow and will be n.p.o. at midnight tonight. Tube feeds will need to be held. We will make sure the patient has adequate pain control afterwards. Case management will need to start aggressively applying the patient for LTAC facilities starting on Wednesday. 05/26/2020 Patient successfully had PEG tube placed. He is having some additional pain I have increased the frequency of his IV Dilaudid. He understands we will begin tapering this tomorrow. Respiratory status is approximately the same as before. He still requiring frequent ventilator support. Latest blood cultures are negative. Plan is for patient to go to [facility] in the next few days if he is accepted. 05/27/2020 Patient states his pain is well controlled and he would like to start transitioning from IV narcotics to oral narcotics in anticipation of going to LTAC. I have switched his Dilaudid to oral I will leave a smaller dose available for breakthrough pain. Patient states he is motivated to perform more aggressive rehab and he knows that this cannot be accomplished inpatient. Patient's breathing is about the same as it was yesterday. Patient still requiring ventilator support. 05/28/20 Patient was seen and examined at bedside. Complains of pain lower abdomen however physical exam not consistent with the amount of pain he is complaining of. He is also requesting for more IV pain medications. He is status post PEG tube placement postop day 1 currently tolerating tube feedings. No significant change on his pulmonary status. 05/29/20 Patient was seen and examined at bedside. No new complains. Asking if he can have clear soup, I told him it would not be advisable now. He is asking for more IV pain medications as usual. 05/30/20 Patient seen and examined. Complaining of anxiety. I have increased his Buspar to 10 BID. Swallow eval for tomorrow. 05/31/20 Patient was seen and examined at bedside. He apparently refused swallow eval that was ordered today. But later when I rounded on him he claimed that did not even come. It has been noted before the he refuses a lot of therapeutic interventions. He is stable otherwise on mechanical ventilation. 06/01/20 Patient was seen and examined at bedside. he is again asking on when he can do a swallow eval. I have told him this will be done on wednesday. He was also asking if he has a medication for his anxiety and again I told him that he has Buspar BID. He should not be started on Xanax or any other benzo. 06/02/20 PAtient was seen and examined at bedside. He was asleep after receiving vistaril for anxiety. I have asked the respiratory therapist to try and wean him off with PSV. however he desaturates so he was put back on SIMV. 06/03/20 Patient was seen and examined at bedside. He still has episodes of anxiety and vistaril seems to have helped. He had just received his dilaudid prior to my visit hence he was very sleepy and did not want to talk much. He failed swallow eval today. 06/04/20 Patient was seen and examined at bedside. No new complains, had PT today. Afebrile. PEG tube feeding on going. 06/11/20 Care resumed today. He is complaining of pain and wanted more pain medications which I refused to give him and then he refused to engage in anymore conversation. He does appear comfortable otherwise. Notes from previous week reviewed. He was transfused with 2 u PRNC due to anemia. Also underwent thoracentesis with removal of 800 ml pleural fluid. 06/12/20 He was seen and examined at bedside. He is still refusing lab work ups and repeat CT chest despite explaining the medial necessity for this. He refuses to engage in any more conversation. 06/13/20 He was seen and examined at bedside. HE is on 40% FIO2 on PRVC. He agreed to have blood drawn today and it showed a Hgb of 8.9 but a WBC count of 23.3. He remains afebrile and VS is stable. He still refuses to engage in any further discussion about his medical care. Per nursing had several episodes of diarrhea, C.diff was sent which was negative. Reason For Visit: MUCOUS PLUGGING, ACUTE HYPOXIC RESPIRATORY FAILURE Physical Exam Vital Signs: Temp Pulse Resp BP Pulse Ox 97.9 F 105 H 18 122/71 96 06/13/20 13:07 06/13/20 14:22 06/13/20 14:22 06/13/20 13:07 06/13/20 16:07 Intake & Output 06/12/20 06/13/20 06/14/20 06:59 06:59 06:59 Intake Total 1105 820 Output Total 1375 2000 Balance -270 -1180 Weight 86.2 kg 86.2 kg General appearance: PRESENT: mild distress Head exam: PRESENT: atraumatic, normocephalic Eye exam: PRESENT: EOMI, PERRLA Mouth exam: PRESENT: moist Neck exam: PRESENT: tracheostomy Respiratory exam: PRESENT: clear to auscultation yousif, symmetrical, unlabored Cardiovascular exam: PRESENT: RRR, +S1, +S2 Pulses: PRESENT: +2 pedal pulses bilateral GI/Abdominal exam: PRESENT: normal bowel sounds Extremities exam: PRESENT: other - lower extremity weakness Musculoskeletal exam: PRESENT: full ROM Neurological exam: PRESENT: alert, awake, oriented to person, oriented to place, oriented to time, oriented to situation Psychiatric exam: PRESENT: normal mood Skin exam: PRESENT: normal color Results Laboratory Results: 06/13/20 15:47 06/13/20 15:47 06/13/20 06/13/20 15:47 15:47 WBC 23.3 H RBC 3.31 L Hgb 8.9 L Hct 28.0 L MCV 84 MCH 27.0 MCHC 31.9 L RDW 18.5 H Plt Count 404 Seg Neutrophils % Not Reportable Sodium 134.8 L Potassium 4.8 Chloride 93 L Carbon Dioxide 35 H Anion Gap 7 BUN 28 H Creatinine 0.94 Est GFR ( Amer) > 60 Glucose 67 L Calcium 8.6 Total Bilirubin 0.5 AST 20 Alkaline Phosphatase 131 H Total Protein 5.9 L Albumin 2.2 L 04/20/20 04/23/20 04/23/20 09:00 01:55 01:55 Creatine Kinase < 20 L CK-MB (CK-2) 2.20 Troponin I < 0.012 0.082 NT-Pro-B Natriuret Pep 86650 H 04/23/20 04/23/20 04/23/20 05:58 08:22 14:50 Creatine Kinase < 20 L < 20 L CK-MB (CK-2) 2.24 Troponin I 0.066 NT-Pro-B Natriuret Pep 04/23/20 06/09/20 14:50 05:20 Creatine Kinase CK-MB (CK-2) 2.09 Troponin I 0.057 NT-Pro-B Natriuret Pep 66131 H Impressions: PICC Line Insertion 05/07/20 00:00 IMPRESSION: SUCCESSFUL PLACEMENT OF A 5 FR DUAL LUMEN 47 CM PICC IN THE LEFT BRACHIOCEPHALIC VEIN. KUB X-Ray 05/16/20 11:57 IMPRESSION: NG tube as described. Findings as described. Modified Barium Swallow 06/03/20 00:00 IMPRESSION: LARYNGEAL PENETRATION AND ASPIRATION ABOVE. HE WAS PLEASE SEE SPEECH PATHOLOGIST REPORT FOR OTHER FINDINGS AND RECOMMENDATIONS. Thoracentesis Ultrasound 06/08/20 14:12 IMPRESSION: SUCCESSFUL THORACENTESIS USING ULTRASOUND GUIDANCE. Chest X-Ray 06/08/20 19:30 IMPRESSION: Interval increase in opacity overlying the right mid to lower lung zone. Findings are nonspecific. Close attention on follow-up is recommended. CT chest could be considered for further evaluation if clinically indicated. Assessment and Plan - Diagnosis (1) Leukocytosis Qualifiers: Leukocytosis type: unspecified Qualified Code(s): D72.829 - Elevated white blood cell count, unspecified Is this a current diagnosis for this admission?: Yes Plan: WBC 13.5> 16.2-> 15.2-> 14.4-> 14.5>23.3 Remains afebrile. I have ordered a repeat CXR to assess for possible pneumonia. Will not order Blood cx as he remains afebrile with stable VS and we have so many false positive blood culture. Will order UA tomorrow and instruct the nurse not to collect it from his naidu Has completed multiple courses of abx so I am less inclined to start him on any medications unless he spikes a fever or takes a turn for the worse. Monitor closely for evidence of developing infectious process. (2) Respiratory failure, [id number] Qualifiers: Respiratory failure complication: hypoxia Qualified Code(s): J96.21 - Acute and chronic respiratory failure with hypoxia Is this a current diagnosis for this admission?: Yes Plan: - Tenuously improved; now maintaining oxygen saturations of 98% on FiO2 80%. Continues to require vent PRVC setting. Has a trach and on mechanical ventilation; multiple failed weaning trials. -CXR showed significantly increased right pleural effusion. Persistent patchy airspace opacities in both lungs; slight improvement in the left upper lobe. -Repeat CXR w/ Interval increase in opacity overlying the right middle to lower lung zones; recommend CT chest follow-up. - Now s/p thoracentesis w/ ~800 ml removed. -Pleural effusion w/ WBC 367, RBC 88. -LDH 138, Albumin 0.7, Glucose 174. -Cultures no growth at 48 hrs. -would need repeat CT chest patient continues to refuse. -Remains afebrile. Will hold on abx for now. -I have asked the Respiratory therapist to decrease his FIO2 to maintain sats of 93%. He is currently at 40% FIO2. (3) Chronic pain Qualifiers: Chronic pain type: other chronic pain Qualified Code(s): G89.29 - Other chronic pain Is this a current diagnosis for this admission?: Yes Plan: - Continued difficulty with managing patient's opiate dependence, chronic pain, desire for IV route, and hypoxia. Consulted pain management today for recommendations. Spoke with Lili Velazco NP-C (who consulted w/ Dr. Richardson) regarding patient's prior opiate dependance, clinical course, and difficulty w/ managing pain while transitioning to an oral/peg option. They advise to discontinue IV analgesics. Recommended Morphine 10 mg via PEG q4h prn. They advise against further adjustments/negotiations without evidence of new, acute, and objectively verifiable problem. Did adjust schedule to Morphine 7.5 mg q3 hrs. This is the same 24 hr morphine dose as was recommended; however, the increased schedule has improved patient's behavior toward nursing. I do not anticipate this to continue and he will likely make attempts to renegotiate pain medications in the near future. (4) Anxiety about health Is this a current diagnosis for this admission?: Yes Plan: - has frequent attacks of anxiety - on buspar 10 BID - vistaril seems to help him during acute bouts. Started on 25M q8 PRN - would avoid starting him on benzo (5) Critical illness myopathy Is this a current diagnosis for this admission?: Yes Plan: -2/2 ICU and prolonged hospital stay - would need extensive rehab given that he has already been in the hospital for 3 months or more PT/OT/ST consulted. It has been a while since they have seen him so will try to talk to them tomorrow. (6) Dysphagia Qualifiers: Dysphagia type: oropharyngeal phase Qualified Code(s): R13.12 - Dysphagia, oropharyngeal phase Is this a current diagnosis for this admission?: Yes Plan: Now with PEG -Failed swallow eval 06/03/20 - currently receiving feeding via PEG with free water flushes - Na stable protein chemist consulted for TF and water recommendations. Nursing reports concern for high volume of gas when checking residuals. Unfortunately; patient is refusing ST sessions. They have provided bedside information. Will encourage patient to reconsider. (7) Bacteremia due to Enterococcus Is this a current diagnosis for this admission?: Yes Plan: - completed antibiotics treatment TTE as recommended by ID is pending. (8) MSSA bacteremia Is this a current diagnosis for this admission?: Yes Plan: completed treatment Echocardiogram as recommended by ID is pending. (9) Hyperglycemia due to type 2 diabetes mellitus Qualifiers: Diabetes mellitus group home insulin use: with long term care phlebotomist use Qualified Code(s): E11.65 - Type 2 diabetes mellitus with hyperglycemia; Z79.4 - senior living (current) use of insulin Is this a current diagnosis for this admission?: Yes Plan: - currently on scheduled insulin (10) Acute kidney injury superimposed on chronic kidney disease Is this a current diagnosis for this admission?: Yes Plan: Resolved. (11) Acute metabolic encephalopathy Is this a current diagnosis for this admission?: Yes Plan: Resolved (12) Debility Is this a current diagnosis for this admission?: Yes Plan: PT/OT/ST consulted Needs LTAC placement (13) Dependent on ventilator Is this a current diagnosis for this admission?: Yes (14) COVID-19 Is this a current diagnosis for this admission?: Yes Plan: -resolved but patient has suffered significant comorbidity from it - no indication to retest - continue vent support. Wean as tolerated - Plan Summary Summary: . - Time Time Spent with patient: 15-24 minutes Medications reviewed and adjusted accordingly: Yes Anticipated Discharge Disposition: [facility] Anticipated Discharge Timeframe: TBD
[2020-06-14] MEDS: INSULIN REG, HUMAN 100 UNIT/ML 3 ML VIAL (PYX) SUBCUT SCH ×4 (00:53→17:12)
[2020-06-14] MEDS: METOCLOPRAMIDE HCL INJ/PF 10 MG/2 ML SDV IV SCH ×4 (00:53→21:55)
[2020-06-14] MEDS: DIPHENHYDRAMINE HCL 50 MG/ML VIAL IV PRN ×3 (03:46→20:18)
[2020-06-14] MEDS: MORPHINE SULFATE 10 MG/5 ML ORAL SOLUTION UDCUP PO PRN ×5 (03:47→20:19)
[2020-06-14] MEDS: ACETYLCYSTEINE 20% SOLN 800 MG/4 ML VIAL.NEB NEB SCH ×2 (08:45→21:04)
[2020-06-14] MEDS: IPRATROPIUM/ALBUTEROL 0.5-2.5 MG/3 ML AMPUL NEB PRN ×2 (08:45→21:04)
[2020-06-14] MEDS: CALCIUM CARBONATE 500 MG TAB.CHEW PEG SCH ×2 (09:12→17:14)
[2020-06-14] MEDS: BUSPIRONE HCL 10 MG TABLET PEG SCH ×2 (09:12→17:14)
[2020-06-14] MEDS: FUROSEMIDE ORAL SOLN 40 MG/5 ML UDCUP PEG SCH (09:12)
[2020-06-14] MEDS: HYDROXYZINE HCL INJ 50 MG/1 ML VIAL IM PRN ×2 (09:12→17:20)
[2020-06-14] MEDS: LOPERAMIDE HCL 2 MG CAPSULE PO SCH ×2 (11:00→17:14)
[2020-06-14 11:26] LABS: APPEARANCE,URINE CLOUDY; BILIRUBIN,URINE NEGATIVE (NEGATIVE); COLOR,URINE YELLOW; GLUCOSE, URINE NEGATIVE (NEGATIVE); KETONES,URINE 20 mg/dL (NEGATIVE); LEUKOCYTE ESTERASE,URINE LARGE (NEGATIVE); NITRITE,URINE POSITIVE (NEGATIVE); PROTEIN,URINE 100 mg/dL (NEGATIVE); URINE SPECIFIC GRAVITY 1.014
--- NOTE | 2020-06-14 19:10 | PDOC PROGRESS REPORT ---
Subjective Date:: 06/14/20 Subjective:: er admitting physician: "FREDDIE LAZO JR is a 60 year old male, past medical history of type 2 diabetes hypertension CHF narcotic dependence CKD who was recently discharged from [facility] April 19, 2020 after being admitted for 89 days secondary to acute respiratory failure from COVID pneumonia. He was discharged with a tracheostomy tube uncuffed. Before discharge he has been able to speak and eat and the plan was to eventually remove the tracheostomy at [facility]. Sent back to the emergency room for evaluation of shortness of breath. EMS was called by the facility because the patient was diaphoretic with a blood glucose of 30 staff administered 1 mg glucagon in a tube and a half of oral glucose prior to EMS arrival and recheck of blood glucose was 40. Upon EMS arrival patient was pale with diminished breath sounds so he was placed on 15 L O2 via nonrebreather O2 sats went up to 86% and blood glucose was 147 upon ED arrival. In the emergency room he apparently continued to be hypoxic hence a trach cuff was placed and he was put back on mechanical ventilation briefly. He was also noted to be hypotensive hence central line was placed by Dr. Jean-Baptiste. Patient was given IV fluids. Repeat chest x-ray showed improvement of his diffuse bibasilar opacities compared from previous chest x-ray. Dr. Chandler evaluated him in the ED who felt that he does not need ICU admission. He was given 4 L of IV fluids. He was eventually transitioned to tracheal collar and was maintaining his O2 saturation to 95%. Patient was then admitted for further management. WBC count 19.5 in the ED he was given 1 dose of aztreonam and vancomycin." Per Previous Physician: "05/14/2020 MUCOUS PLUGGING, ACUTE HYPOXIC RESPIRATORY FAILURE Patient was seen early on in rounds this morning. At the time patient was noted to sound congested. He however had been suctioned and apparently no further suctioning required at that time. I discussed with the patient the need to be able to give him medications either through an NG tube or PEG tube IV fluids or TPN or combination of all these however patient refused. Patient was new to me today and after discussing with the nurse I did find out that he had been refusing multiple modalities of treatment and management. About 30 minutes after saw this patient when he was still relatively stable a rapid response was called and apparently he went into respiratory distress. He was found to be hypoxic. By the time he got there he was cyanotic. His oxygen saturation was in the 60s also. He was 100% oxygen and his BiPAP setting was changed. Multiple attempts to oxygenate him failed. It was felt that patient will be better served in the intensive care unit. Kiln Mechanic was informed and Came to assess patient. Patient was transferred to the unit. Please see Dr. Hernández's notes for further details chest x-ray obtained reveals diffuse opacification in the left chest possibly due to extensive infiltrate atelectasis collapse pleural effusion with improved aeration in the right lung base. This is consistent with his lung findings which shows grossly diminished air entry." 05/20/2020 Patient sent out of the ICU yesterday afternoon. Per my discussion with Dr. Chandler, patient has frequent mucous plugging and needs to be lavaged and suctioned by respiratory therapy frequently. It is likely the patient will continue mucous plugging intermittently and may need to be sent back to the ICU at some point. He has been maintained on trach collar with intermittent ventilatory support. Patient was asking for increases in his narcotics and I discussed the risks of respiratory depression if we were to pursue this. We will keep his narcotics at the current dosing and frequency for now. 05/21/2020 Patient had a episode of mucous plugging which resolved with aggressive lavage and suctioning by RT. Patient also had a problem with his NG feeding tube where it was somewhat displaced and nursing replaced this infected follow-up chest x- ray To confirm location. Blood culture on 05/09 remains negative. Latest chest x-ray shows diffuse bilateral disease which could potentially be worse. Patient is calm and resting today and does not have any new complaints. 05/22/2020 Patient appears rather calm today until I entered the room. He then wrote on his marker board and mouthed words to me stating he wants IV narcotics and IV sedatives. I discussed with him that adding these medications could be detrimental to his respiratory status. We will keep his pain medication as it is for now. I believe he is gradually improving as respiratory therapy is doing a great job lavaging and suctioning out large mucous plugs daily. Perhaps if we do enough of this every day, patient will be able to wean from the ventilator and tolerate trach collar alone. 05/23/2020 I had an extensive discussion with the patient today regarding PEG tube placement and he repeatedly stated he wanted to speak to the doctor and I repeatedly told him I am the doctor. I asked him if he would like me to get the surgeon involved to place a PEG tube. He refused to answer me at this point and did not seem interested in any my recommendations. We will ask respiratory therapy if he can get CPT to break up mucous plugs, continue lavaging and suctioning, and continue attempting to wean from the vent. Hemoglobin showed an acute drop down to 6.4 and this was rechecked to reveal 6.9. We will transfuse 1 unit PRBC which may help with his oxygenation as well. Will need to be mindful of the extra volume this will provide and watch for volume overload. Blood cell count is higher while hemoglobin and platelets are lower. Calcium is significantly lower we will replete this both IV and oral. 05/24/2020 Patient is resting comfortably today. He is off IV antibiotics and I have discontinued his IV Benadryl in place of Benadryl capsules that can go through his NG tube. We are still waiting on the patient to decide if he wants a PEG tube to be placed. It is my understanding that he cannot go to an acute care facility for rehab until he has a definitive feeding tube placed and he cannot go to a regular SNF while he is requiring the vent. If the patient wants a PEG tube or if we can wean him from the vent, disposition can move forward. Respiratory therapy will continue to lavage and suction the patient regularly and weaning from the ventilator. I discussed this with nursing. Hemoglobin is higher and potassium is lower today. His chest x-ray looks noticeably improved per my read. 05/25/2020 Patient fully awake and alert today and states repeatedly that he wants a PEG tube placed. He states that his pain after procedures is only well controlled on Dilaudid and I stated I would give him a low-dose of Dilaudid available as needed afterwards. I have consulted general surgery discussed case with Dr. Small who is agreed to consult on the patient. Patient will have his PEG tube placed tomorrow and will be n.p.o. at midnight tonight. Tube feeds will need to be held. We will make sure the patient has adequate pain control afterwards. Case management will need to start aggressively applying the patient for LTAC facilities starting on Wednesday. 05/26/2020 Patient successfully had PEG tube placed. He is having some additional pain I have increased the frequency of his IV Dilaudid. He understands we will begin tapering this tomorrow. Respiratory status is approximately the same as before. He still requiring frequent ventilator support. Latest blood cultures are negative. Plan is for patient to go to [facility] in the next few days if he is accepted. 05/27/2020 Patient states his pain is well controlled and he would like to start transitioning from IV narcotics to oral narcotics in anticipation of going to LTAC. I have switched his Dilaudid to oral I will leave a smaller dose available for breakthrough pain. Patient states he is motivated to perform more aggressive rehab and he knows that this cannot be accomplished inpatient. Patient's breathing is about the same as it was yesterday. Patient still requiring ventilator support. 05/28/20 Patient was seen and examined at bedside. Complains of pain lower abdomen however physical exam not consistent with the amount of pain he is complaining of. He is also requesting for more IV pain medications. He is status post PEG tube placement postop day 1 currently tolerating tube feedings. No significant change on his pulmonary status. 05/29/20 Patient was seen and examined at bedside. No new complains. Asking if he can have clear soup, I told him it would not be advisable now. He is asking for more IV pain medications as usual. 05/30/20 Patient seen and examined. Complaining of anxiety. I have increased his Buspar to 10 BID. Swallow eval for tomorrow. 05/31/20 Patient was seen and examined at bedside. He apparently refused swallow eval that was ordered today. But later when I rounded on him he claimed that did not even come. It has been noted before the he refuses a lot of therapeutic interventions. He is stable otherwise on mechanical ventilation. 06/01/20 Patient was seen and examined at bedside. he is again asking on when he can do a swallow eval. I have told him this will be done on wednesday. He was also asking if he has a medication for his anxiety and again I told him that he has Buspar BID. He should not be started on Xanax or any other benzo. 06/02/20 PAtient was seen and examined at bedside. He was asleep after receiving vistaril for anxiety. I have asked the respiratory therapist to try and wean him off with PSV. however he desaturates so he was put back on SIMV. 06/03/20 Patient was seen and examined at bedside. He still has episodes of anxiety and vistaril seems to have helped. He had just received his dilaudid prior to my visit hence he was very sleepy and did not want to talk much. He failed swallow eval today. 06/04/20 Patient was seen and examined at bedside. No new complains, had PT today. Afebrile. PEG tube feeding on going. 06/11/20 Care resumed today. He is complaining of pain and wanted more pain medications which I refused to give him and then he refused to engage in anymore conversation. He does appear comfortable otherwise. Notes from previous week reviewed. He was transfused with 2 u PRNC due to anemia. Also underwent thoracentesis with removal of 800 ml pleural fluid. 06/12/20 He was seen and examined at bedside. He is still refusing lab work ups and repeat CT chest despite explaining the medial necessity for this. He refuses to engage in any more conversation. 06/13/20 He was seen and examined at bedside. HE is on 40% FIO2 on PRVC. He agreed to have blood drawn today and it showed a Hgb of 8.9 but a WBC count of 23.3. He remains afebrile and VS is stable. He still refuses to engage in any further discussion about his medical care. Per nursing had several episodes of diarrhea, C.diff was sent which was negative. 06/14/20 He was seen and examined at bedside. He appears comfortable in bed. Nurse reported that he refused to have his catheter changed. Also still having diarrhea, C.diff negative. He has refused a rectal tube, he was started on loperamide. He agreed to have his naidu replaced.UA showed large nitrite and leukocyte with >182 WBC. Urine culture pending. Will await culture and treat based on results. Reason For Visit: MUCOUS PLUGGING, ACUTE HYPOXIC RESPIRATORY FAILURE Physical Exam Vital Signs: Temp Pulse Resp BP Pulse Ox 98.1 F 97 17 128/70 H 93 06/14/20 10:00 06/14/20 14:00 06/14/20 08:45 06/14/20 04:25 06/14/20 15:16 Intake & Output 06/13/20 06/14/20 06/15/20 06:59 06:59 06:59 Intake Total 820 190 Output Total 1999 617 500 Balance -3295 -672 -918 Weight 86.2 kg 77.8 kg General appearance: PRESENT: no acute distress Head exam: PRESENT: atraumatic, normocephalic Eye exam: PRESENT: EOMI, PERRLA Mouth exam: PRESENT: moist Neck exam: PRESENT: tracheostomy Respiratory exam: PRESENT: clear to auscultation yousif, symmetrical, unlabored Cardiovascular exam: PRESENT: RRR, +S1, +S2 Pulses: PRESENT: +2 pedal pulses bilateral GI/Abdominal exam: PRESENT: normal bowel sounds, soft, other - PEG tube in place. ABSENT: tenderness Extremities exam: PRESENT: other - muscle atrophy lower extremity Musculoskeletal exam: PRESENT: normal inspection Neurological exam: PRESENT: alert, awake, oriented to person, oriented to place, oriented to time, oriented to situation Psychiatric exam: PRESENT: normal mood Skin exam: PRESENT: normal color Results Laboratory Results: 06/13/20 15:47 06/13/20 15:47 06/14/20 10:45 Urine Color YELLOW Urine Appearance CLOUDY Urine pH 8.0 Ur Specific [place] 1.014 Urine Protein 100 H Urine Glucose (UA) NEGATIVE Urine Ketones 20 H Urine Blood SMALL H Urine Nitrite POSITIVE H Ur Leukocyte Esterase LARGE H Urine WBC (Auto) >182 Urine RBC (Auto) 23 04/20/20 04/23/20 04/23/20 09:00 01:55 01:55 Creatine Kinase < 20 L CK-MB (CK-2) 2.20 Troponin I < 0.012 0.082 NT-Pro-B Natriuret Pep 27756 H 04/23/20 04/23/20 04/23/20 05:58 08:22 14:50 Creatine Kinase < 20 L < 20 L CK-MB (CK-2) 2.24 Troponin I 0.066 NT-Pro-B Natriuret Pep 04/23/20 06/09/20 14:50 05:20 Creatine Kinase CK-MB (CK-2) 2.09 Troponin I 0.057 NT-Pro-B Natriuret Pep 10818 H Impressions: PICC Line Insertion 05/07/20 00:00 IMPRESSION: SUCCESSFUL PLACEMENT OF A 5 FR DUAL LUMEN 47 CM PICC IN THE LEFT BRACHIOCEPHALIC VEIN. KUB X-Ray 05/16/20 11:57 IMPRESSION: NG tube as described. Findings as described. Modified Barium Swallow 06/03/20 00:00 IMPRESSION: LARYNGEAL PENETRATION AND ASPIRATION ABOVE. HE WAS PLEASE SEE SPEECH PATHOLOGIST REPORT FOR OTHER FINDINGS AND RECOMMENDATIONS. Thoracentesis Ultrasound 06/08/20 14:12 IMPRESSION: SUCCESSFUL THORACENTESIS USING ULTRASOUND GUIDANCE. Chest X-Ray 06/08/20 19:30 IMPRESSION: Interval increase in opacity overlying the right mid to lower lung zone. Findings are nonspecific. Close attention on follow-up is recommended. CT chest could be considered for further evaluation if clinically indicated. Assessment and Plan - Diagnosis (1) Urinary tract infection Qualifiers: Urinary tract infection type: catheter-associated UTI Is this a current diagnosis for this admission?: Yes Plan: - has had a naidu for a while and has refused to change it. he agreed to have it changed today - UA +ve for UTI - WBC 23 - he is however afebrile - will wait for his culture results (2) Leukocytosis Qualifiers: Leukocytosis type: unspecified Qualified Code(s): D72.829 - Elevated white blood cell count, unspecified Is this a current diagnosis for this admission?: Yes Plan: WBC 13.5> 16.2-> 15.2-> 14.4-> 14.5>23.3 Remains afebrile. I have ordered a repeat CXR to assess for possible pneumonia. Will not order Blood cx as he remains afebrile with stable VS and we have so many false positive blood culture. UA showed positive nitrite and leucocyte, WBC >182 Urine culture pending Has completed multiple courses of abx so I am less inclined to start him on any medications unless he spikes a fever or takes a turn for the worse. (3) Respiratory failure, [id number] Qualifiers: Respiratory failure complication: hypoxia Qualified Code(s): J96.21 - Acute and chronic respiratory failure with hypoxia Is this a current diagnosis for this admission?: Yes Plan: - Tenuously improved; now maintaining oxygen saturations of 98% on FiO2 80%. Continues to require vent PRVC setting. Has a trach and on mechanical ventilation; multiple failed weaning trials. -CXR showed significantly increased right pleural effusion. Persistent patchy airspace opacities in both lungs; slight improvement in the left upper lobe. -Repeat CXR w/ Interval increase in opacity overlying the right middle to lower lung zones; recommend CT chest follow-up. - Now s/p thoracentesis w/ ~800 ml removed. -Pleural effusion w/ WBC 367, RBC 88. -LDH 138, Albumin 0.7, Glucose 174. -Cultures no growth at 48 hrs. -would need repeat CT chest patient continues to refuse. -Remains afebrile. -I have asked the Respiratory therapist to decrease his FIO2 to maintain sats of 93%. He is currently at 40% FIO2. (4) Chronic pain Qualifiers: Chronic pain type: other chronic pain Qualified Code(s): G89.29 - Other chronic pain Is this a current diagnosis for this admission?: Yes Plan: - Continued difficulty with managing patient's opiate dependence, chronic pain, desire for IV route, and hypoxia. Consulted pain management today for recommendations. Spoke with Lili Velazco NP-C (who consulted w/ Dr. Richardson) regarding patient's prior opiate dependance, clinical course, and difficulty w/ managing pain while transitioning to an oral/peg option. They advise to discontinue IV analgesics. Recommended Morphine 10 mg via PEG q4h prn. They advise against further adjustments/negotiations without evidence of new, ac lilly, and objectively verifiable problem. Did adjust schedule to Morphine 7.5 mg q3 hrs. This is the same 24 hr morphine dose as was recommended; however, the increased schedule has improved patient's behavior toward nursing. I do not anticipate this to continue and he will likely make attempts to renegotiate pain medications in the near future. (5) Anxiety about health Is this a current diagnosis for this admission?: Yes Plan: - has frequent attacks of anxiety - on buspar 10 BID - vistaril seems to help him during acute bouts. Started on 25M q8 PRN - would avoid starting him on benzo (6) Critical illness myopathy Is this a current diagnosis for this admission?: Yes Plan: -2/2 ICU and prolonged hospital stay - would need extensive rehab given that he has already been in the hospital for 3 months or more PT/OT/ST consulted. It has been a while since they have seen him so will try to talk to them tomorrow. (7) Dysphagia Qualifiers: Dysphagia type: oropharyngeal phase Qualified Code(s): R13.12 - Dysphagia, oropharyngeal phase Is this a current diagnosis for this admission?: Yes Plan: Now with PEG -Failed swallow eval 06/03/20 - currently receiving feeding via PEG with free water flushes - Na stable bracelet and brooch maker consulted for TF and water recommendations. Nursing reports concern for high volume of gas when checking residuals. Unfortunately; patient is refusing ST sessions. They have provided bedside i nformation. Will encourage patient to reconsider. (8) Bacteremia due to Enterococcus Is this a current diagnosis for this admission?: Yes Plan: - completed antibiotics treatment TTE as recommended by ID is pending. (9) MSSA bacteremia Is this a current diagnosis for this admission?: Yes Plan: completed treatment Echocardiogram as recommended by ID is pending. (10) Hyperglycemia due to type 2 diabetes mellitus Qualifiers: Diabetes mellitus rodent exterminator insulin use: with rodent exterminator use Qualified Code(s): E11.65 - Type 2 diabetes mellitus with hyperglycemia; Z79.4 - rodent exterminator (current) use of insulin Is this a current diagnosis for this admission?: Yes Plan: - currently on scheduled insulin (11) Acute kidney injury superimposed on chronic kidney disease Is this a current diagnosis for this admission?: Yes Plan: Resolved. (12) Acute metabolic encephalopathy Is this a current diagnosis for this admission?: Yes Plan: Resolved (13) Debility Is this a current diagnosis for this admission?: Yes Plan: PT/OT/ST consulted Needs LTAC placement (14) Dependent on ventilator Is this a current diagnosis for this admission?: Yes Plan: - will ask RT to wean him (15) COVID-19 Is this a current diagnosis for this admission?: Yes Plan: -resolved but patient has suffered significant comorbidity from it - no indication to retest - continue vent support. Wean as tolerated - Time Time Spent with patient: 25-34 minutes Medications reviewed and adjusted accordingly: Yes Anticipated Discharge [facility]position[facility] Anticipated Discharge Timeframe: TBD
[2020-06-14] MEDS: NORMAL SALINE 10 ML SDV (SCHEDULED) IV SCH (21:55)
[2020-06-15] MEDS: INSULIN REG, HUMAN 100 UNIT/ML 3 ML VIAL (PYX) SUBCUT SCH ×4 (00:15→17:09)
[2020-06-15] MEDS: HYDROXYZINE HCL INJ 50 MG/1 ML VIAL IM PRN ×3 (01:49→20:11)
[2020-06-15] MEDS: MORPHINE SULFATE 10 MG/5 ML ORAL SOLUTION UDCUP PO PRN ×6 (01:50→20:11)
[2020-06-15] MEDS: DIPHENHYDRAMINE HCL 50 MG/ML VIAL IV PRN ×3 (04:50→20:11)
[2020-06-15] MEDS: NORMAL SALINE 10 ML SDV (AFTER EACH USE) IV PRN (04:51)
[2020-06-15] MEDS: METOCLOPRAMIDE HCL INJ/PF 10 MG/2 ML SDV IV SCH ×3 (05:56→21:58)
[2020-06-15] MEDS: DEXTROSE 50%-WATER 25 GM/50 ML DISP.SYRIN IV PRN ×2 (06:04→12:27)
[2020-06-15] MEDS: ONDANSETRON HCL INJ/PF 4 MG/2 ML SDV IV PRN (09:09)
[2020-06-15] MEDS: LOPERAMIDE HCL 2 MG CAPSULE PO SCH ×2 (09:09→17:09)
[2020-06-15] MEDS: BUSPIRONE HCL 10 MG TABLET PEG SCH ×2 (09:09→17:09)
[2020-06-15] MEDS: CALCIUM CARBONATE 500 MG TAB.CHEW PEG SCH ×2 (09:09→17:09)
[2020-06-15] MEDS: FUROSEMIDE ORAL SOLN 40 MG/5 ML UDCUP PEG SCH (09:09)
[2020-06-15] MEDS: ACETYLCYSTEINE 20% SOLN 800 MG/4 ML VIAL.NEB NEB SCH ×2 (09:18→21:05)
[2020-06-15] MEDS: IPRATROPIUM/ALBUTEROL 0.5-2.5 MG/3 ML AMPUL NEB PRN ×2 (09:19→21:05)
[2020-06-15] MEDS: NORMAL SALINE 10 ML SDV (SCHEDULED) IV SCH ×2 (10:15→21:01)
--- NOTE | 2020-06-15 12:13 | RADIOLOGY REPORT (SQ) ---
EXAM DESCRIPTION: CT CHEST WITHOUT IMAGES COMPLETED DATE/TIME: 06/15/2020 10:39 am REASON FOR STUDY: Pleural effusion follow up J96.21 ACUTE AND CHRONIC RESPIRATORY FAILURE WITH HYPO MARIO COMPARISON: Chest radiograph 06/08/2020. TECHNIQUE: CT scan performed of the chest without intravenous contrast. Images reviewed with lung, soft tissue and bone windows. Reconstructed coronal and sagittal MPR images reviewed. All images st ored on PACS. All CT scanners at this facility use dose modulation, iterative reconstruction, and/or weight based d osing when appropriate to reduce radiation dose to as low as reasonably achievable (ALARA). [facility]: Dose Right [facility]: CareDose [facility]: Dose Right [facility]: Teradose 4D [facility]: [employer] RADIATION DOSE: CT Rad equipment meets quality standard of care and radiation dose reduction techniq ues were employed. CTDIvol: 15.4 mGy. DLP: 578 mGy-cm. mGy. LIMITATIONS: No technical limitations. FINDINGS: LUNGS AND PLEURA: There are moderate bilateral pleural effusions. Compressive atelectasis and consolidation with bronchial wall thickening bilateral lower lobes, right middle lobe, and bilat eral upper lobes. No pneumothorax. HILAR AND MEDIASTINAL STRUCTURES: Enlarged mediastinal lymph nodes, for example a right peritracheal node measuring 2.3 x 2.5 cm. Enlarged right supraclavicular lymph nodes, the largest measuring 1.9 x 1.5 cm. HEART AND VASCULAR STRUCTURES: Moderate cardiomegaly. Small pericardial effusion/ pericardial thicke adiren. Calcified coronary arteries. Thoracic aorta has normal caliber. . UPPER ABDOMEN: No significant findings. Limited exam. THYROID AND OTHER SOFT TISSUES: No masses. No adenopathy. BONES: Spondylosis and degenerative disc disease. No suspicious bone lesions. HARDWARE: Tracheostomy in good position in the upper trachea. OTHER: No other significant findings. IMPRESSION: Moderate bilateral pleural effusions with bilateral multifocal pneumonia. Mediastinal l ymphadenopathy is probably reactive. TECHNICAL DOCUMENTATION: JOB ID: [id number] Quality ID # [id number]: Final reports with documentation of one or more dose reduction techniques (e.g., Au tomated exposure control, adjustment of the mA and/or kV according to patient size, use of iterative reconstruction technique) 2010 [employer]- All Rights Reserved Reading location - IP/workstation name: [email or web address]
--- NOTE | 2020-06-15 19:50 | PDOC PROGRESS REPORT ---
Subjective Date:: 06/15/20 Subjective:: er admitting physician: "FREDDIE LAZO JR is a 60 year old male, past medical history of type 2 diabetes hypertension CHF narcotic dependence CKD who was recently discharged from [facility] April 19, 2020 after being admitted for 89 days secondary to acute respiratory failure from COVID pneumonia. He was discharged with a tracheostomy tube uncuffed. Before discharge he has been able to speak and eat and the plan was to eventually remove the tracheostomy at [facility]. Sent back to the emergency room for evaluation of shortness of breath. EMS was called by the facility because the patient was diaphoretic with a blood glucose of 30 staff administered 1 mg glucagon in a tube and a half of oral glucose prior to EMS arrival and recheck of blood glucose was 40. Upon EMS arrival patient was pale with diminished breath sounds so he was placed on 15 L O2 via nonrebreather O2 sats went up to 86% and blood glucose was 147 upon ED arrival. In the emergency room he apparently continued to be hypoxic hence a trach cuff was placed and he was put back on mechanical ventilation briefly. He was also noted to be hypotensive hence central line was placed by Dr. Jean-Baptiste. Patient was given IV fluids. Repeat chest x-ray showed improvement of his diffuse bibasilar opacities compared from previous chest x-ray. Dr. Chandler evaluated him in the ED who felt that he does not need ICU admission. He was given 4 L of IV fluids. He was eventually transitioned to tracheal collar and was maintaining his O2 saturation to 95%. Patient was then admitted for further management. WBC count 19.5 in the ED he was given 1 dose of aztreonam and vancomycin." Per Previous Physician: "05/14/2020 MUCOUS PLUGGING, ACUTE HYPOXIC RESPIRATORY FAILURE Patient was seen early on in rounds this morning. At the time patient was noted to sound congested. He however had been suctioned and apparently no further suctioning required at that time. I discussed with the patient the need to be able to give him medications either through an NG tube or PEG tube IV fluids or TPN or combination of all these however patient refused. Patient was new to me today and after discussing with the nurse I did find out that he had been refusing multiple modalities of treatment and management. About 30 minutes after saw this patient when he was still relatively stable a rapid response was called and apparently he went into respiratory distress. He was found to be hypoxic. By the time he got there he was cyanotic. His oxygen saturation was in the 60s also. He was 100% oxygen and his BiPAP setting was changed. Multiple attempts to oxygenate him failed. It was felt that patient will be better served in the intensive care unit. Integration Manager was informed and Came to assess patient. Patient was transferred to the unit. Please see Dr. Hernández's notes for further details chest x-ray obtained reveals diffuse opacification in the left chest possibly due to extensive infiltrate atelectasis collapse pleural effusion with improved aeration in the right lung base. This is consistent with his lung findings which shows grossly diminished air entry." 05/20/2020 Patient sent out of the ICU yesterday afternoon. Per my discussion with Dr. Chandler, patient has frequent mucous plugging and needs to be lavaged and suctioned by respiratory therapy frequently. It is likely the patient will continue mucous plugging intermittently and may need to be sent back to the ICU at some point. He has been maintained on trach collar with intermittent ventilatory support. Patient was asking for increases in his narcotics and I discussed the risks of respiratory depression if we were to pursue this. We will keep his narcotics at the current dosing and frequency for now. 05/21/2020 Patient had a episode of mucous plugging which resolved with aggressive lavage and suctioning by RT. Patient also had a problem with his NG feeding tube where it was somewhat displaced and nursing replaced this infected follow-up chest x- ray To confirm location. Blood culture on 05/09 remains negative. Latest chest x-ray shows diffuse bilateral disease which could potentially be worse. Patient is calm and resting today and does not have any new complaints. 05/22/2020 Patient appears rather calm today until I entered the room. He then wrote on his marker board and mouthed words to me stating he wants IV narcotics and IV sedatives. I discussed with him that adding these medications could be detrimental to his respiratory status. We will keep his pain medication as it is for now. I believe he is gradually improving as respiratory therapy is doing a great job lavaging and suctioning out large mucous plugs daily. Perhaps if we do enough of this every day, patient will be able to wean from the ventilator and tolerate trach collar alone. 05/23/2020 I had an extensive discussion with the patient today regarding PEG tube placement and he repeatedly stated he wanted to speak to the doctor and I repeatedly told him I am the doctor. I asked him if he would like me to get the surgeon involved to place a PEG tube. He refused to answer me at this point and did not seem interested in any my recommendations. We will ask respiratory therapy if he can get CPT to break up mucous plugs, continue lavaging and suctioning, and continue attempting to wean from the vent. Hemoglobin showed an acute drop down to 6.4 and this was rechecked to reveal 6.9. We will transfuse 1 unit PRBC which may help with his oxygenation as well. Will need to be mindful of the extra volume this will provide and watch for volume overload. Blood cell count is higher while hemoglobin and platelets are lower. Calcium is significantly lower we will replete this both IV and oral. 05/24/2020 Patient is resting comfortably today. He is off IV antibiotics and I have discontinued his IV Benadryl in place of Benadryl capsules that can go through his NG tube. We are still waiting on the patient to decide if he wants a PEG tube to be placed. It is my understanding that he cannot go to an acute care facility for rehab until he has a definitive feeding tube placed and he cannot go to a regular SNF while he is requiring the vent. If the patient wants a PEG tube or if we can wean him from the vent, disposition can move forward. Respiratory therapy will continue to lavage and suction the patient regularly and weaning from the ventilator. I discussed this with nursing. Hemoglobin is higher and potassium is lower today. His chest x-ray looks noticeably improved per my read. 05/25/2020 Patient fully awake and alert today and states repeatedly that he wants a PEG tube placed. He states that his pain after procedures is only well controlled on Dilaudid and I stated I would give him a low-dose of Dilaudid available as needed afterwards. I have consulted general surgery discussed case with Dr. Small who is agreed to consult on the patient. Patient will have his PEG tube placed tomorrow and will be n.p.o. at midnight tonight. Tube feeds will need to be held. We will make sure the patient has adequate pain control afterwards. Case management will need to start aggressively applying the patient for LTAC facilities starting on Wednesday. 05/26/2020 Patient successfully had PEG tube placed. He is having some additional pain I have increased the frequency of his IV Dilaudid. He understands we will begin tapering this tomorrow. Respiratory status is approximately the same as before. He still requiring frequent ventilator support. Latest blood cultures are negative. Plan is for patient to go to [facility] in the next few days if he is accepted. 05/27/2020 Patient states his pain is well controlled and he would like to start transitioning from IV narcotics to oral narcotics in anticipation of going to LTAC. I have switched his Dilaudid to oral I will leave a smaller dose available for breakthrough pain. Patient states he is motivated to perform more aggressive rehab and he knows that this cannot be accomplished inpatient. Patient's breathing is about the same as it was yesterday. Patient still requiring ventilator support. 05/28/20 Patient was seen and examined at bedside. Complains of pain lower abdomen however physical exam not consistent with the amount of pain he is complaining of. He is also requesting for more IV pain medications. He is status post PEG tube placement postop day 1 currently tolerating tube feedings. No significant change on his pulmonary status. 05/29/20 Patient was seen and examined at bedside. No new complains. Asking if he can have clear soup, I told him it would not be advisable now. He is asking for more IV pain medications as usual. 05/30/20 Patient seen and examined. Complaining of anxiety. I have increased his Buspar to 10 BID. Swallow eval for tomorrow. 05/31/20 Patient was seen and examined at bedside. He apparently refused swallow eval that was ordered today. But later when I rounded on him he claimed that did not even come. It has been noted before the he refuses a lot of therapeutic interventions. He is stable otherwise on mechanical ventilation. 06/01/20 Patient was seen and examined at bedside. he is again asking on when he can do a swallow eval. I have told him this will be done on wednesday. He was also asking if he has a medication for his anxiety and again I told him that he has Buspar BID. He should not be started on Xanax or any other benzo. 06/02/20 PAtient was seen and examined at bedside. He was asleep after receiving vistaril for anxiety. I have asked the respiratory therapist to try and wean him off with PSV. however he desaturates so he was put back on SIMV. 06/03/20 Patient was seen and examined at bedside. He still has episodes of anxiety and vistaril seems to have helped. He had just received his dilaudid prior to my visit hence he was very sleepy and did not want to talk much. He failed swallow eval today. 06/04/20 Patient was seen and examined at bedside. No new complains, had PT today. Afebrile. PEG tube feeding on going. 06/11/20 Care resumed today. He is complaining of pain and wanted more pain medications which I refused to give him and then he refused to engage in anymore conversation. He does appear comfortable otherwise. Notes from previous week reviewed. He was transfused with 2 u PRNC due to anemia. Also underwent thoracentesis with removal of 800 ml pleural fluid. 06/12/20 He was seen and examined at bedside. He is still refusing lab work ups and repeat CT chest despite explaining the medial necessity for this. He refuses to engage in any more conversation. 06/13/20 He was seen and examined at bedside. HE is on 40% FIO2 on PRVC. He agreed to have blood drawn today and it showed a Hgb of 8.9 but a WBC count of 23.3. He remains afebrile and VS is stable. He still refuses to engage in any further discussion about his medical care. Per nursing had several episodes of diarrhea, C.diff was sent which was negative. 06/14/20 He was seen and examined at bedside. He appears comfortable in bed. Nurse reported that he refused to have his catheter changed. Also still having diarrhea, C.diff negative. He has refused a rectal tube, he was started on loperamide. He agreed to have his naidu replaced.UA showed large nitrite and leukocyte with >182 WBC. Urine culture pending. Will await culture and treat based on results. 06/15/20 He was seen and examined at bedside. He appears comfortable. He agreed to have a chest CT today which unfortunately showed moderate bilateral pleural effusions with bilateral multifocal pneumonia. I sent for a tracheal aspirate culture.I spoke to the pharmacist and reviewed the abx he had received so far. So far he has received ceftriaxone, cefepime, unasyn, dapto, linezolid, and vanc. Will await urine and tracheal aspirate culture. Reason For Visit: MUCOUS PLUGGING, ACUTE HYPOXIC RESPIRATORY FAILURE Physical Exam Vital Signs: Temp Pulse Resp BP Pulse Ox 98.2 F 96 18 121/66 95 06/15/20 12:00 06/15/20 14:00 06/15/20 12:00 06/15/20 12:00 06/15/20 15:36 Intake & Output 06/14/20 06/15/20 06/16/20 06:59 06:59 06:59 Intake Total 190 892 745 Output Total 975 1000 1100 Balance -785 -108 -355 Weight 77.8 kg 77.8 kg 77.8 kg General appearance: PRESENT: no acute distress, cooperative Head exam: PRESENT: atraumatic, normocephalic Eye exam: PRESENT: EOMI, PERRLA Mouth exam: PRESENT: moist Neck exam: PRESENT: full ROM, tracheostomy Respiratory exam: PRESENT: decreased breath sounds, symmetrical, unlabored Cardiovascular exam: PRESENT: RRR, +S1, +S2 GI/Abdominal exam: PRESENT: normal bowel sounds, soft, other - +ve PEG tube Extremities exam: PRESENT: other - significant muscle atrophy Neurological exam: PRESENT: alert, awake, oriented to person, oriented to place, oriented to time, oriented to situation Psychiatric exam: PRESENT: normal mood Skin exam: PRESENT: normal color Results Laboratory Results: 06/13/20 15:47 06/13/20 15:47 06/14/20 10:45 Urine Color YELLOW Urine Appearance CLOUDY Urine pH 8.0 Ur Specific Wickes 1.014 Urine Protein 100 H Urine Glucose (UA) NEGATIVE Urine Ketones 20 H Urine Blood SMALL H Urine Nitrite POSITIVE H Ur Leukocyte Esterase LARGE H Urine WBC (Auto) >182 Urine RBC (Auto) 23 04/20/20 04/23/20 04/23/20 09:00 01:55 01:55 Creatine Kinase < 20 L CK-MB (CK-2) 2.20 Troponin I < 0.012 0.082 NT-Pro-B Natriuret Pep [id number] H 04/23/20 04/23/20 04/23/20 05:58 08:22 14:50 Creatine Kinase < 20 L < 20 L CK-MB (CK-2) 2.24 Troponin I 0.066 NT-Pro-B Natriuret Pep 04/23/20 06/09/20 14:50 05:20 Creatine Kinase CK-MB (CK-2) 2.09 Troponin I 0.057 NT-Pro-B Natriuret Pep [id number] H Impressions: PICC Line Insertion 05/07/20 00:00 IMPRESSION: SUCCESSFUL PLACEMENT OF A 5 FR DUAL LUMEN 47 CM PICC IN THE LEFT BRACHIOCEPHALIC VEIN. KUB X-Ray 05/16/20 11:57 IMPRESSION: NG tube as described. Findings as described. Modified Barium Swallow 06/03/20 00:00 IMPRESSION: LARYNGEAL PENETRATION AND ASPIRATION ABOVE. HE WAS PLEASE SEE SPEECH PATHOLOGIST REPORT FOR OTHER FINDINGS AND RECOMMENDATIONS. Thoracentesis Ultrasound 06/08/20 14:12 IMPRESSION: SUCCESSFUL THORACENTESIS USING ULTRASOUND GUIDANCE. Chest X-Ray 06/08/20 19:30 IMPRESSION: Interval increase in opacity overlying the right mid to lower lung zone. Findings are nonspecific. Close attention on follow-up is recommended. CT chest could be considered for further evaluation if clinically indicated. Chest CT 06/15/20 00:00 IMPRESSION: Moderate bilateral pleural effusions with bilateral multifocal pneumonia. Mediastinal lymphadenopathy is probably reactive. Assessment and Plan - Diagnosis (1) Bilateral pneumonia Qualifiers: Pneumonia type: aspiration pneumonia Lung location: lower lobe of lung Is this a current diagnosis for this admission?: Yes Plan: - CT chest showed moderate sized pleural effusion and bilateral pneumonia - he does not have previous CT chest to compare - tracheal aspirate sent - will await result before starting him on abx (2) Urinary tract infection Qualifiers: Urinary tract infection type: catheter-associated UTI Is this a current diagnosis for this admission?: Yes Plan: - has had a naidu for a while and has refused to change it. he agreed to have it changed today - UA +ve for UTI - WBC 23 - he is however afebrile - will wait for his culture results (3) Leukocytosis Qualifiers: Leukocytosis type: unspecified Qualified Code(s): D72.829 - Elevated white blood cell count, unspecified Is this a current diagnosis for this admission?: Yes Plan: WBC 13.5> 16.2-> 15.2-> 14.4-> 14.5>23.3 Remains afebrile. I have ordered a repeat CXR to assess for possible pneumonia. Will not order Blood cx as he remains afebrile with stable VS and we have so many false positive blood culture. UA showed positive nitrite and leucocyte, WBC >182 Urine culture gram negative rods. Otherwise he does not have any urinary symptoms so I suspect this is likely from colonization Has completed multiple courses of abx so I am less inclined to start him on any medications (4) Respiratory failure, [id number] Qualifiers: Respiratory failure complication: hypoxia Qualified Code(s): J96.21 - Acute and chronic respiratory failure with hypoxia Is this a current diagnosis for this admission?: Yes Plan: - Tenuously improved; now maintaining oxygen saturations of 98% on FiO2 80%. Continues to require vent PRVC setting. Has a trach and on mechanical ventilation; multiple failed weaning trials. -CXR showed significantly increased right pleural effusion. Persistent patchy airspace opacities in both lungs; slight improvement in the left upper lobe. -Repeat CXR w/ Interval increase in opacity overlying the right middle to lower lung zones; recommend CT chest follow-up. - Now s/p thoracentesis w/ ~800 ml removed. -Pleural effusion w/ WBC 367, RBC 88. -LDH 138, Albumin 0.7, Glucose 174. -Cultures no growth at 48 hrs. -repeat CT chest moderate bilateral pleural effusion and multifocal pneumonia - awaiting tracheal aspirate. -Remains afebrile. -I have asked the Respiratory therapist to decrease his FIO2 to maintain sats of 93%. He is currently at 40% FIO2. (5) Chronic pain Qualifiers: Chronic pain type: other chronic pain Qualified Code(s): G89.29 - Other chronic pain Is this a current diagnosis for this admission?: Yes Plan: - Continued difficulty with managing patient's opiate dependence, chronic pain, desire for IV route, and hypoxia. Consulted pain management today for recommendations. Spoke with Lili Velazco NP-C (who consulted w/ Dr. Richardson) regarding patient 's prior opiate dependance, clinical course, and difficulty w/ managing pain while transitioning to an oral/peg option. They advise to discontinue IV analgesics. Recommended Morphine 10 mg via PEG q4h prn. They advise against further adjustments/negotiations without evidence of new, acute, and objectively verifiable problem. Did adjust schedule to Morphine 7.5 mg q3 hrs. This is the same 24 hr morphine dose as was recommended; however, the increased schedule has improved patient's behavior toward nursing. I do not anticipate this to continue and he will likely make attempts to renegotiate pain medications in the near future. (6) Anxiety about health Is this a current diagnosis for this admission?: Yes Plan: - has frequent attacks of anxiety - on buspar 10 BID - vistaril seems to help him during acute bouts. Started on 25M q8 PRN - would avoid starting him on benzo (7) Critical illness myopathy Is this a current diagnosis for this admission?: Yes Plan: -2/2 ICU and prolonged hospital stay - would need extensive rehab given that he has already been in the hospital for 3 months or more PT/OT/ST consulted. It has been a while since they have seen him so will try to talk to them tomorrow. (8) Dysphagia Qualifiers: Dysphagia type: oropharyngeal phase Qualified Code(s): R13.12 - Dysphagia, oropharyngeal phase Is this a current diagnosis for this admission?: Yes Plan: Now with PEG -Failed swallow eval 06/03/20 - currently receiving feeding via PEG with free water flushes - Na scout millwright instructor consulted for TF and water recommendations. Nursing reports concern for high volume of gas when checking residuals. Unfortunately; patient is refusing ST sessions. They have provided bedside information. Will encourage patient to reconsider. (9) Bacteremia due to Enterococcus Is this a current diagnosis for this admission?: Yes Plan: - completed antibiotics treatment TTE as recommended by ID is pending. (10) MSSA bacteremia Is this a current diagnosis for this admission?: Yes Plan: completed treatment Echocardiogram as recommended by ID is pending. 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 (13) Acute metabolic encephalopathy Is this a current diagnosis for this admission?: Yes Plan: Resolved (14) Debility Is this a current diagnosis for this admission?: Yes Plan: PT/OT/ST consulted Needs LTAC placement (15) Dependent on ventilator Is this a current diagnosis for this admission?: Yes Plan: - will ask RT to wean him (16) COVID-19 Is this a current diagnosis for this admission?: Yes Plan: -resolved but patient has suffered significant comorbidity from it - no indication to retest - continue vent support. Wean as tolerated - Time Time Spent with patient: 25-34 minutes Medications reviewed and adjusted accordingly: Yes Anticipated [facility]charge [facility] Anticipated Discharge Timeframe: TBD
[2020-06-16] MEDS: INSULIN REG, HUMAN 100 UNIT/ML 3 ML VIAL (PYX) SUBCUT SCH ×4 (00:11→17:23)
[2020-06-16] MEDS: MORPHINE SULFATE 10 MG/5 ML ORAL SOLUTION UDCUP PO PRN ×6 (00:16→18:42)
[2020-06-16] MEDS: IPRATROPIUM/ALBUTEROL 0.5-2.5 MG/3 ML AMPUL NEB PRN ×3 (05:07→21:31)
[2020-06-16] MEDS: METOCLOPRAMIDE HCL INJ/PF 10 MG/2 ML SDV IV SCH ×3 (05:18→21:33)
[2020-06-16] MEDS: DIPHENHYDRAMINE HCL 50 MG/ML VIAL IV PRN ×2 (08:05→16:13)
[2020-06-16] MEDS: ONDANSETRON HCL INJ/PF 4 MG/2 ML SDV IV PRN (08:06)
[2020-06-16] MEDS: HYDROXYZINE HCL INJ 50 MG/1 ML VIAL IM PRN ×2 (08:06→16:12)
[2020-06-16] MEDS: ACETYLCYSTEINE 20% SOLN 800 MG/4 ML VIAL.NEB NEB SCH ×2 (08:37→21:31)
[2020-06-16] MEDS: CALCIUM CARBONATE 500 MG TAB.CHEW PEG SCH ×2 (09:16→17:23)
[2020-06-16] MEDS: BUSPIRONE HCL 10 MG TABLET PEG SCH ×2 (09:16→17:23)
[2020-06-16] MEDS: LOPERAMIDE HCL 2 MG CAPSULE PO SCH ×2 (09:16→17:23)
[2020-06-16] MEDS: FUROSEMIDE ORAL SOLN 40 MG/5 ML UDCUP PEG SCH (09:17)
[2020-06-16] MEDS: NORMAL SALINE 10 ML SDV (SCHEDULED) IV SCH ×2 (10:00→21:30)
[2020-06-16] MEDS: SCOPOLAMINE HYDROBROMIDE 1.5 MG PATCH.TD72 TD SCH (13:15)
[2020-06-16] MEDS ORDERED: CEFTRIAXONE INJ 1000 MG VIAL IV SCH (16:45)
--- NOTE | 2020-06-16 16:48 | PDOC PROGRESS REPORT ---
Subjective Date:: 06/16/20 Subjective:: er admitting physician: "FREDDIE LAZO JR is a 60 year old male, past medical history of type 2 diabetes hypertension CHF narcotic dependence CKD who was recently discharged from [facility] April 19, 2020 after being admitted for 89 days secondary to acute respiratory failure from COVID pneumonia. He was discharged with a tracheostomy tube uncuffed. Before discharge he has been able to speak and eat and the plan was to eventually remove the tracheostomy at [facility]. Sent back to the emergency room for evaluation of shortness of breath. EMS was called by the facility because the patient was diaphoretic with a blood glucose of 30 staff administered 1 mg glucagon in a tube and a half of oral glucose prior to EMS arrival and recheck of blood glucose was 40. Upon EMS arrival patient was pale with diminished breath sounds so he was placed on 15 L O2 via nonrebreather O2 sats went up to 86% and blood glucose was 147 upon ED arrival. In the emergency room he apparently continued to be hypoxic hence a trach cuff was placed and he was put back on mechanical ventilation briefly. He was also noted to be hypotensive hence central line was placed by Dr. Jean-Baptiste. Patient was given IV fluids. Repeat chest x-ray showed improvement of his diffuse bibasilar opacities compared from previous chest x-ray. Dr. Chandler evaluated him in the ED who felt that he does not need ICU admission. He was given 4 L of IV fluids. He was eventually transitioned to tracheal collar and was maintaining his O2 saturation to 95%. Patient was then admitted for further management. WBC count 19.5 in the ED he was given 1 dose of aztreonam and vancomycin." Per Previous Physician: "05/14/2020 MUCOUS PLUGGING, ACUTE HYPOXIC RESPIRATORY FAILURE Patient was seen early on in rounds this morning. At the time patient was noted to sound congested. He however had been suctioned and apparently no further suctioning required at that time. I discussed with the patient the need to be able to give him medications either through an NG tube or PEG tube IV fluids or TPN or combination of all these however patient refused. Patient was new to me today and after discussing with the nurse I did find out that he had been refusing multiple modalities of treatment and management. About 30 minutes after saw this patient when he was still relatively stable a rapid response was called and apparently he went into respiratory distress. He was found to be hypoxic. By the time he got there he was cyanotic. His oxygen saturation was in the 60s also. He was 100% oxygen and his BiPAP setting was changed. Multiple attempts to oxygenate him failed. It was felt that patient will be better served in the intensive care unit. [employer] Blower was informed and Came to assess patient. Patient was transferred to the unit. Please see Dr. Hernández's notes for further details chest x-ray obtained reveals diffuse opacification in the left chest possibly due to extensive infiltrate atelectasis collapse pleural effusion with improved aeration in the right lung base. This is consistent with his lung findings which shows grossly diminished air entry." 05/20/2020 Patient sent out of the ICU yesterday afternoon. Per my discussion with Dr. Chandler, patient has frequent mucous plugging and needs to be lavaged and suctioned by respiratory therapy frequently. It is likely the patient will continue mucous plugging intermittently and may need to be sent back to the ICU at some point. He has been maintained on trach collar with intermittent ventilatory support. Patient was asking for increases in his narcotics and I discussed the risks of respiratory depression if we were to pursue this. We will keep his narcotics at the current dosing and frequency for now. 05/21/2020 Patient had a episode of mucous plugging which resolved with aggressive lavage and suctioning by RT. Patient also had a problem with his NG feeding tube where it was somewhat displaced and nursing replaced this infected follow-up chest x- ray To confirm location. Blood culture on 05/09 remains negative. Latest chest x-ray shows diffuse bilateral disease which could potentially be worse. Patient is calm and resting today and does not have any new complaints. 05/22/2020 Patient appears rather calm today until I entered the room. He then wrote on his marker board and mouthed words to me stating he wants IV narcotics and IV sedatives. I discussed with him that adding these medications could be detrimental to his respiratory status. We will keep his pain medication as it is for now. I believe he is gradually improving as respiratory therapy is doing a great job lavaging and suctioning out large mucous plugs daily. Perhaps if we do enough of this every day, patient will be able to wean from the ventilator and tolerate trach collar alone. 05/23/2020 I had an extensive discussion with the patient today regarding PEG tube placement and he repeatedly stated he wanted to speak to the doctor and I repeatedly told him I am the doctor. I asked him if he would like me to get the surgeon involved to place a PEG tube. He refused to answer me at this point and did not seem interested in any my recommendations. We will ask respiratory therapy if he can get CPT to break up mucous plugs, continue lavaging and suctioning, and continue attempting to wean from the vent. Hemoglobin showed an acute drop down to 6.4 and this was rechecked to reveal 6.9. We will transfuse 1 unit PRBC which may help with his oxygenation as well. Will need to be mindful of the extra volume this will provide and watch for volume overload. Blood cell count is higher while hemoglobin and platelets are lower. Calcium is significantly lower we will replete this both IV and oral. 05/24/2020 Patient is resting comfortably today. He is off IV antibiotics and I have discontinued his IV Benadryl in place of Benadryl capsules that can go through his NG tube. We are still waiting on the patient to decide if he wants a PEG tube to be placed. It is my understanding that he cannot go to an acute care facility for rehab until he has a definitive feeding tube placed and he cannot go to a regular SNF while he is requiring the vent. If the patient wants a PEG tube or if we can wean him from the vent, disposition can move forward. Respiratory therapy will continue to lavage and suction the patient regularly and weaning from the ventilator. I discussed this with nursing. Hemoglobin is higher and potassium is lower today. His chest x-ray looks noticeably improved per my read. 05/25/2020 Patient fully awake and alert today and states repeatedly that he wants a PEG tube placed. He states that his pain after procedures is only well controlled on Dilaudid and I stated I would give him a low-dose of Dilaudid available as needed afterwards. I have consulted general surgery discussed case with Dr. Small who is agreed to consult on the patient. Patient will have his PEG tube placed tomorrow and will be n.p.o. at midnight tonight. Tube feeds will need to be held. We will make sure the patient has adequate pain control afterwards. Case management will need to start aggressively applying the patient for LTAC facilities starting on Wednesday. 05/26/2020 Patient successfully had PEG tube placed. He is having some additional pain I have increased the frequency of his IV Dilaudid. He understands we will begin tapering this tomorrow. Respiratory status is approximately the same as before. He still requiring frequent ventilator support. Latest blood cultures are negative. Plan is for patient to go to [facility] in the next few days if he is accepted. 05/27/2020 Patient states his pain is well controlled and he would like to start transitioning from IV narcotics to oral narcotics in anticipation of going to LTAC. I have switched his Dilaudid to oral I will leave a smaller dose available for breakthrough pain. Patient states he is motivated to perform more aggressive rehab and he knows that this cannot be accomplished inpatient. Patient's breathing is about the same as it was yesterday. Patient still requiring ventilator support. 05/28/20 Patient was seen and examined at bedside. Complains of pain lower abdomen however physical exam not consistent with the amount of pain he is complaining of. He is also requesting for more IV pain medications. He is status post PEG tube placement postop day 1 currently tolerating tube feedings. No significant change on his pulmonary status. 05/29/20 Patient was seen and examined at bedside. No new complains. Asking if he can have clear soup, I told him it would not be advisable now. He is asking for more IV pain medications as usual. 05/30/20 Patient seen and examined. Complaining of anxiety. I have increased his Buspar to 10 BID. Swallow eval for tomorrow. 05/31/20 Patient was seen and examined at bedside. He apparently refused swallow eval that was ordered today. But later when I rounded on him he claimed that did not even come. It has been noted before the he refuses a lot of therapeutic interventions. He is stable otherwise on mechanical ventilation. 06/01/20 Patient was seen and examined at bedside. he is again asking on when he can do a swallow eval. I have told him this will be done on wednesday. He was also asking if he has a medication for his anxiety and again I told him that he has Buspar BID. He should not be started on Xanax or any other benzo. 06/02/20 PAtient was seen and examined at bedside. He was asleep after receiving vistaril for anxiety. I have asked the respiratory therapist to try and wean him off with PSV. however he desaturates so he was put back on SIMV. 06/03/20 Patient was seen and examined at bedside. He still has episodes of anxiety and vistaril seems to have helped. He had just received his dilaudid prior to my visit hence he was very sleepy and did not want to talk much. He failed swallow eval today. 06/04/20 Patient was seen and examined at bedside. No new complains, had PT today. Afebrile. PEG tube feeding on going. 06/11/20 Care resumed today. He is complaining of pain and wanted more pain medications which I refused to give him and then he refused to engage in anymore conversation. He does appear comfortable otherwise. Notes from previous week reviewed. He was transfused with 2 u PRNC due to anemia. Also underwent thoracentesis with removal of 800 ml pleural fluid. 06/12/20 He was seen and examined at bedside. He is still refusing lab work ups and repeat CT chest despite explaining the medial necessity for this. He refuses to engage in any more conversation. 06/13/20 He was seen and examined at bedside. HE is on 40% FIO2 on PRVC. He agreed to have blood drawn today and it showed a Hgb of 8.9 but a WBC count of 23.3. He remains afebrile and VS is stable. He still refuses to engage in any further discussion about his medical care. Per nursing had several episodes of diarrhea, C.diff was sent which was negative. 06/14/20 He was seen and examined at bedside. He appears comfortable in bed. Nurse reported that he refused to have his catheter changed. Also still having diarrhea, C.diff negative. He has refused a rectal tube, he was started on loperamide. He agreed to have his naidu replaced.UA showed large nitrite and leukocyte with >182 WBC. Urine culture pending. Will await culture and treat based on results. 06/15/20 He was seen and examined at bedside. He appears comfortable. He agreed to have a chest CT today which unfortunately showed moderate bilateral pleural effusions with bilateral multifocal pneumonia. I sent for a tracheal aspirate culture.I spoke to the pharmacist and reviewed the abx he had received so far. So far he has received ceftriaxone, cefepime, unasyn, dapto, linezolid, and vanc. Will await urine and tracheal aspirate culture. 06/16/20 Seen and examined at bedside. explained to him CT findings and the need to restart abx. Still awaiting tracheal aspirate result but his UA is growing E.cloacae sensitive to ceftri and I have started him on this. Still awaiting tracheal aspirate culture and sensitivity. Further weaning trail will likely fail due to pleural effusion and pneumonia seen on CT. He was again asking when he can eat food and I told him that his penumonia is likely ventilator and aspiration pneumonia so still not safe for him to eat food by mouth. Reason For Visit: MUCOUS PLUGGING, ACUTE HYPOXIC RESPIRATORY FAILURE Physical Exam Vital Signs: Temp Pulse Resp BP Pulse Ox 97.6 F 96 18 130/71 H 92 06/16/20 10:00 06/16/20 14:00 06/16/20 08:36 06/15/20 23:59 06/16/20 12:38 Intake & Output 06/15/20 06/16/20 06/17/20 06:59 06:59 06:59 Intake Total 892 1401 Output Total 1000 1600 400 Balance -108 -199 -400 Weight 77.8 kg 74.1 kg General appearance: PRESENT: no acute distress, cooperative Head exam: PRESENT: atraumatic, normocephalic Eye exam: PRESENT: EOMI, PERRLA Mouth exam: PRESENT: moist Neck exam: PRESENT: full ROM Respiratory exam: PRESENT: decreased breath sounds, symmetrical, unlabored Cardiovascular exam: PRESENT: RRR, +S1, +S2 Pulses: PRESENT: normal carotid pulses GI/Abdominal exam: PRESENT: normal bowel sounds, soft, other - PEG tube in place. ABSENT: rebound, tenderness Extremities exam: PRESENT: other - weak upper and lower extremities Neurological exam: PRESENT: alert, awake, oriented to person, oriented to place, oriented to time, oriented to situation Psychiatric exam: PRESENT: normal mood Skin exam: PRESENT: normal color Results Laboratory Results: 06/13/20 15:47 06/13/20 15:47 06/14/20 10:45 Catheterized Urine Urine Culture - Final Enterobacter Cloacae 04/20/20 04/23/20 04/23/20 09:00 01:55 01:55 Creatine Kinase < 20 L CK-MB (CK-2) 2.20 Troponin I < 0.012 0.082 NT-Pro-B Natriuret Pep 55920 H 04/23/20 04/23/20 04/23/20 05:58 08:22 14:50 Creatine Kinase < 20 L < 20 L CK-MB (CK-2) 2.24 Troponin I 0.066 NT-Pro-B Natriuret Pep 04/23/20 06/09/20 14:50 05:20 Creatine Kinase CK-MB (CK-2) 2.09 Troponin I 0.057 NT-Pro-B Natriuret Pep [id number] H Impressions: PICC Line Insertion 05/07/20 00:00 IMPRESSION: SUCCESSFUL PLACEMENT OF A 5 FR DUAL LUMEN 47 CM PICC IN THE LEFT BRACHIOCEPHALIC VEIN. KUB X-Ray 05/16/20 11:57 IMPRESSION: NG tube as described. Findings as described. Modified Barium Swallow 06/03/20 00:00 IMPRESSION: LARYNGEAL PENETRATION AND ASPIRATION ABOVE. HE WAS PLEASE SEE SPEECH PATHOLOGIST REPORT FOR OTHER FINDINGS AND RECOMMENDATIONS. Thoracentesis Ultrasound 06/08/20 14:12 IMPRESSION: SUCCESSFUL THORACENTESIS USING ULTRASOUND GUIDANCE. Chest X-Ray 06/08/20 19:30 IMPRESSION: Interval increase in opacity overlying the right mid to lower lung zone. Findings are nonspecific. Close attention on follow-up is recommended. CT chest could be considered for further evaluation if clinically indicated. Chest CT 06/15/20 00:00 IMPRESSION: Moderate bilateral pleural effusions with bilateral multifocal pneumonia. Mediastinal lymphadenopathy is probably reactive. Assessment and Plan - Diagnosis (1) Bilateral pneumonia Qualifiers: Pneumonia type: aspiration pneumonia Lung location: lower lobe of lung Is this a current diagnosis for this admission?: Yes Plan: - CT chest showed moderate sized pleural effusion and bilateral pneumonia - he does not have previous CT chest to compare - tracheal aspirate sent - I have started him on ceftriaxone (2) Urinary tract infection Qualifiers: Urinary tract infection type: catheter-associated UTI Is this a current diagnosis for this admission?: Yes Plan: - has had a naidu for a while and has refused to change it. he agreed to have it changed 06/14/20 - UA +ve for UTI - WBC 23 - he is however afebrile - culture growing e. cloacae sensitive to ceftri and I have started him on this. (3) Leukocytosis Qualifiers: Leukocytosis type: unspecified Qualified Code(s): D72.829 - Elevated white blood cell count, unspecified Is this a current diagnosis for this admission?: Yes Plan: WBC 13.5> 16.2-> 15.2-> 14.4-> 14.5>23.3 Remains afebrile. I have ordered a repeat CXR to assess for possible pneumonia. Will not order Blood cx as he remains afebrile with stable VS and we have so many false positive blood culture. UA showed positive nitrite and leucocyte, WBC >182 Urine culture gram negative rods. Otherwise he does not have any urinary symptom s so I suspect this is likely from colonization Started on ceftriaxone. Will repeat his CBC on Wed to see if this helps with his WBC count (4) Respiratory failure, [id number] Qualifiers: Respiratory failure complication: hypoxia Qualified Code(s): J96.21 - Acute and chronic respiratory failure with hypoxia Is this a current diagnosis for this admission?: Yes Plan: - Tenuously improved; now maintaining oxygen saturations of 98% on FiO2 80%. Continues to require vent PRVC setting. Has a trach and on mechanical ventilation; multiple failed weaning trials. -CXR showed significantly increased right pleural effusion. Persistent patchy airspace opacities in both lungs; slight improvement in the left upper lobe. -Repeat CXR w/ Interval increase in opacity overlying the right middle to lower lung zones; recommend CT chest follow-up. - Now s/p thoracentesis w/ ~800 ml removed. -Pleural effusion w/ WBC 367, RBC 88. -LDH 138, Albumin 0.7, Glucose 174. -Cultures no growth at 48 hrs. -repeat CT chest moderate bilateral pleural effusion and multifocal pneumonia - awaiting tracheal aspirate. -Remains afebrile. - started on ceftriaxone 06/16/20 per urine culture result -I have asked the Respiratory therapist to decrease his FIO2 to maintain sats of 93%. He is currently at 40% FIO2. (5) Chronic pain Qualifiers: Chronic pain type: other chronic pain Qualified Code(s): G89.29 - Other chronic pain Is this a current diagnosis for this admission?: Yes Plan: - Continued difficulty with managing patient's opiate dependence, chronic pain, desire for IV route, and hypoxia. Consulted pain management today for recommendations. Spoke with Karma Juan A, DECAL MAKER-C (who consulted w/ Dr. Richardson) regarding patient's prior opiate dependance, clinical course, and difficulty w/ managing pain while transitioning to an oral/peg option. They advise to discontinue IV analgesics. Recommended Morphine 10 mg via PEG q4h prn. They advise against further adjustments/negotiations without evidence of new, acute, and objectively verifiable problem. Did adjust schedule to Morphine 7.5 mg q3 hrs. This is the same 24 hr morphine dose as was recommended; however, the increased schedule has improved patient's behavior toward nursing. I do not anticipate this to continue and he will likely make attempts to renegotiate pain medications in the near future. (6) Anxiety about health Is this a current diagnosis for this admission?: Yes Plan: - has frequent attacks of anxiety - on buspar 10 BID - vistaril seems to help him during acute bouts. Started on 25M q8 PRN - would avoid starting him on benzo (7) Critical illness myopathy Is this a current diagnosis for this admission?: Yes Plan: -2/2 ICU and prolonged hospital stay - would need extensive rehab given that he has already been in the hospital for 3 months or more PT/OT/ST consulted. - Has often refused rehab despite encouragement (8) Dysphagia Qualifiers: Dysphagia type: oropharyngeal phase Qualified Code(s): R13.12 - Dysphagia, oropharyngeal phase Is this a current diagnosis for this admission?: Yes Plan: Now with PEG -Failed swallow eval 06/03/20 - currently receiving feeding via PEG with free water flushes - Na stable speech language pathology assistant consulted for TF and water recommendations. Nursing reports concern for high volume of gas when checking residuals. Unfortunately; patient is refusing ST sessions. They have provided bedside information. Will encourage patient to reconsider. (9) Bacteremia due to Enterococcus Is this a current diagnosis for this admission?: Yes Plan: - completed antibiotics treatment TTE as recommended by ID is pending. (10) MSSA bacteremia Is this a current diagnosis for this admission?: Yes Plan: completed treatment Echocardiogram as recommended by ID is pending. (11) Hyperglycemia due to type 2 diabetes mellitus Qualifiers: Diabetes mellitus intermediate frame tender insulin use: with intermediate frame tender use Qualified Code(s): E11.65 - Type 2 diabetes mellitus with hyperglycemia; Z79.4 - [facility] (current) use of insulin Is this a current diagnosis for this admission?: Yes Plan: - currently on scheduled insulin (12) Acute kidney injury superimposed on chronic kidney disease Is this a current diagnosis for this admission?: Yes Plan: Resolved. (13) Acute metabolic encephalopathy Is this a current diagnosis for this admission?: Yes Plan: Resolved (14) Debility Is this a current diagnosis for this admission?: Yes Plan: PT/OT/ST consulted Needs LTAC placement (15) Dependent on ventilator Is this a current diagnosis for this admission?: Yes Plan: - weaning will likely fail as he has bilateral pleural effusion and multifocal pneumonia (16) COVID-19 Is this a current diagnosis for this admission?: Yes - Time Time Spent with patient: 15-24 minutes Medications reviewed and adjusted accordingly: Yes Anticipated Discharge Disposition: [facility] Anticipated Discharge Timeframe: TBD
[2020-06-16] MEDS: CEFTRIAXONE 1 GM/D5W RTU 1 GM/50 ML RTUPB IV SCH (17:23)
[2020-06-17] MEDS: MORPHINE SULFATE 10 MG/5 ML ORAL SOLUTION UDCUP PO PRN ×5 (00:09→22:52)
[2020-06-17] MEDS: HYDROXYZINE HCL INJ 50 MG/1 ML VIAL IM PRN ×2 (00:23→14:24)
[2020-06-17] MEDS: DIPHENHYDRAMINE HCL 50 MG/ML VIAL IV PRN ×3 (00:24→19:44)
[2020-06-17] MEDS: INSULIN REG, HUMAN 100 UNIT/ML 3 ML VIAL (PYX) SUBCUT SCH ×4 (00:38→18:33)
[2020-06-17] MEDS: IPRATROPIUM/ALBUTEROL 0.5-2.5 MG/3 ML AMPUL NEB PRN ×4 (02:08→19:45)
[2020-06-17] MEDS: METOCLOPRAMIDE HCL INJ/PF 10 MG/2 ML SDV IV SCH ×2 (05:33→13:23)
[2020-06-17] MEDS: ACETYLCYSTEINE 20% SOLN 800 MG/4 ML VIAL.NEB NEB SCH ×2 (08:31→19:45)
[2020-06-17] MEDS: LOPERAMIDE HCL 2 MG CAPSULE PO SCH ×2 (10:50→18:39)
[2020-06-17] MEDS: CALCIUM CARBONATE 500 MG TAB.CHEW PEG SCH ×2 (10:50→18:39)
[2020-06-17] MEDS: BUSPIRONE HCL 10 MG TABLET PEG SCH ×2 (10:50→18:39)
[2020-06-17] MEDS: NORMAL SALINE 10 ML SDV (SCHEDULED) IV SCH ×2 (10:51→22:53)
[2020-06-17] MEDS: FUROSEMIDE ORAL SOLN 40 MG/5 ML UDCUP PEG SCH (10:54)
[2020-06-17] MEDS: SCOPOLAMINE HYDROBROMIDE 1.5 MG PATCH.TD72 TD SCH (10:55)
[2020-06-17] MEDS: ONDANSETRON HCL INJ/PF 4 MG/2 ML SDV IV PRN (13:23)
--- NOTE | 2020-06-17 17:50 | PDOC PROGRESS REPORT ---
Subjective Date:: 06/17/20 Subjective:: er admitting physician: "FREDDIE LAZO JR is a 60 year old male, past medical history of type 2 diabetes hypertension CHF narcotic dependence CKD who was recently discharged from [facility] April 19, 2020 after being admitted for 89 days secondary to acute respiratory failure from COVID pneumonia. He was discharged with a tracheostomy tube uncuffed. Before discharge he has been able to speak and eat and the plan was to eventually remove the tracheostomy at [facility]. Sent back to the emergency room for evaluation of shortness of breath. EMS was called by the facility because the patient was diaphoretic with a blood glucose of 30 staff administered 1 mg glucagon in a tube and a half of oral glucose prior to EMS arrival and recheck of blood glucose was 40. Upon EMS arrival patient was pale with diminished breath sounds so he was placed on 15 L O2 via nonrebreather O2 sats went up to 86% and blood glucose was 147 upon ED arrival. In the emergency room he apparently continued to be hypoxic hence a trach cuff was placed and he was put back on mechanical ventilation briefly. He was also noted to be hypotensive hence central line was placed by Dr. Jean-Baptiste. Patient was given IV fluids. Repeat chest x-ray showed improvement of his diffuse bibasilar opacities compared from previous chest x-ray. Dr. Chandler evaluated him in the ED who felt that he does not need ICU admission. He was given 4 L of IV fluids. He was eventually transitioned to tracheal collar and was maintaining his O2 saturation to 95%. Patient was then admitted for further management. WBC count 19.5 in the ED he was given 1 dose of aztreonam and vancomycin." Per Previous Physician: "05/14/2020 MUCOUS PLUGGING, ACUTE HYPOXIC RESPIRATORY FAILURE Patient was seen early on in rounds this morning. At the time patient was noted to sound congested. He however had been suctioned and apparently no further suctioning required at that time. I discussed with the patient the need to be able to give him medications either through an NG tube or PEG tube IV fluids or TPN or combination of all these however patient refused. Patient was new to me today and after discussing with the nurse I did find out that he had been refusing multiple modalities of treatment and management. About 30 minutes after saw this patient when he was still relatively stable a rapid response was called and apparently he went into respiratory distress. He was found to be hypoxic. By the time he got there he was cyanotic. His oxygen saturation was in the 60s also. He was 100% oxygen and his BiPAP setting was changed. Multiple attempts to oxygenate him failed. It was felt that patient will be better served in the intensive care unit. Business Intelligence Architect was informed and Came to assess patient. Patient was transferred to the unit. Please see Dr. Hernández's notes for further details chest x-ray obtained reveals diffuse opacification in the left chest possibly due to extensive infiltrate atelectasis collapse pleural effusion with improved aeration in the right lung base. This is consistent with his lung findings which shows grossly diminished air entry." 05/20/2020 Patient sent out of the ICU yesterday afternoon. Per my discussion with Dr. Chandler, patient has frequent mucous plugging and needs to be lavaged and suctioned by respiratory therapy frequently. It is likely the patient will continue mucous plugging intermittently and may need to be sent back to the ICU at some point. He has been maintained on trach collar with intermittent ventilatory support. Patient was asking for increases in his narcotics and I discussed the risks of respiratory depression if we were to pursue this. We will keep his narcotics at the current dosing and frequency for now. 05/21/2020 Patient had a episode of mucous plugging which resolved with aggressive lavage and suctioning by RT. Patient also had a problem with his NG feeding tube where it was somewhat displaced and nursing replaced this infected follow-up chest x- ray To confirm location. Blood culture on 05/09 remains negative. Latest chest x-ray shows diffuse bilateral disease which could potentially be worse. Patient is calm and resting today and does not have any new complaints. 05/22/2020 Patient appears rather calm today until I entered the room. He then wrote on his marker board and mouthed words to me stating he wants IV narcotics and IV sedatives. I discussed with him that adding these medications could be detrimental to his respiratory status. We will keep his pain medication as it is for now. I believe he is gradually improving as respiratory therapy is doing a great job lavaging and suctioning out large mucous plugs daily. Perhaps if we do enough of this every day, patient will be able to wean from the ventilator and tolerate trach collar alone. 05/23/2020 I had an extensive discussion with the patient today regarding PEG tube placement and he repeatedly stated he wanted to speak to the doctor and I repeatedly told him I am the doctor. I asked him if he would like me to get the surgeon involved to place a PEG tube. He refused to answer me at this point and did not seem interested in any my recommendations. We will ask respiratory therapy if he can get CPT to break up mucous plugs, continue lavaging and suctioning, and continue attempting to wean from the vent. Hemoglobin showed an acute drop down to 6.4 and this was rechecked to reveal 6.9. We will transfuse 1 unit PRBC which may help with his oxygenation as well. Will need to be mindful of the extra volume this will provide and watch for volume overload. Blood cell count is higher while hemoglobin and platelets are lower. Calcium is significantly lower we will replete this both IV and oral. 05/24/2020 Patient is resting comfortably today. He is off IV antibiotics and I have discontinued his IV Benadryl in place of Benadryl capsules that can go through his NG tube. We are still waiting on the patient to decide if he wants a PEG tube to be placed. It is my understanding that he cannot go to an acute care facility for rehab until he has a definitive feeding tube placed and he cannot go to a regular SNF while he is requiring the vent. If the patient wants a PEG tube or if we can wean him from the vent, disposition can move forward. Respiratory therapy will continue to lavage and suction the patient regularly and weaning from the ventilator. I discussed this with nursing. Hemoglobin is higher and potassium is lower today. His chest x-ray looks noticeably improved per my read. 05/25/2020 Patient fully awake and alert today and states repeatedly that he wants a PEG tube placed. He states that his pain after procedures is only well controlled on Dilaudid and I stated I would give him a low-dose of Dilaudid available as needed afterwards. I have consulted general surgery discussed case with Dr. Small who is agreed to consult on the patient. Patient will have his PEG tube placed tomorrow and will be n.p.o. at midnight tonight. Tube feeds will need to be held. We will make sure the patient has adequate pain control afterwards. Case management will need to start aggressively applying the patient for LTAC facilities starting on Wednesday. 05/26/2020 Patient successfully had PEG tube placed. He is having some additional pain I have increased the frequency of his IV Dilaudid. He understands we will begin tapering this tomorrow. Respiratory status is approximately the same as before. He still requiring frequent ventilator support. Latest blood cultures are negative. Plan is for patient to go to [facility] in the next few days if he is accepted. 05/27/2020 Patient states his pain is well controlled and he would like to start transitioning from IV narcotics to oral narcotics in anticipation of going to LTAC. I have switched his Dilaudid to oral I will leave a smaller dose available for breakthrough pain. Patient states he is motivated to perform more aggressive rehab and he knows that this cannot be accomplished inpatient. Patient's breathing is about the same as it was yesterday. Patient still requiring ventilator support. 05/28/20 Patient was seen and examined at bedside. Complains of pain lower abdomen however physical exam not consistent with the amount of pain he is complaining of. He is also requesting for more IV pain medications. He is status post PEG tube placement postop day 1 currently tolerating tube feedings. No significant change on his pulmonary status. 05/29/20 Patient was seen and examined at bedside. No new complains. Asking if he can have clear soup, I told him it would not be advisable now. He is asking for more IV pain medications as usual. 05/30/20 Patient seen and examined. Complaining of anxiety. I have increased his Buspar to 10 BID. Swallow eval for tomorrow. 05/31/20 Patient was seen and examined at bedside. He apparently refused swallow eval that was ordered today. But later when I rounded on him he claimed that did not even come. It has been noted before the he refuses a lot of therapeutic interventions. He is stable otherwise on mechanical ventilation. 06/01/20 Patient was seen and examined at bedside. he is again asking on when he can do a swallow eval. I have told him this will be done on wednesday. He was also asking if he has a medication for his anxiety and again I told him that he has Buspar BID. He should not be started on Xanax or any other benzo. 06/02/20 PAtient was seen and examined at bedside. He was asleep after receiving vistaril for anxiety. I have asked the respiratory therapist to try and wean him off with PSV. however he desaturates so he was put back on SIMV. 06/03/20 Patient was seen and examined at bedside. He still has episodes of anxiety and vistaril seems to have helped. He had just received his dilaudid prior to my visit hence he was very sleepy and did not want to talk much. He failed swallow eval today. 06/04/20 Patient was seen and examined at bedside. No new complains, had PT today. Afebrile. PEG tube feeding on going. 06/11/20 Care resumed today. He is complaining of pain and wanted more pain medications which I refused to give him and then he refused to engage in anymore conversation. He does appear comfortable otherwise. Notes from previous week reviewed. He was transfused with 2 u PRNC due to anemia. Also underwent thoracentesis with removal of 800 ml pleural fluid. 06/12/20 He was seen and examined at bedside. He is still refusing lab work ups and repeat CT chest despite explaining the medial necessity for this. He refuses to engage in any more conversation. 06/13/20 He was seen and examined at bedside. HE is on 40% FIO2 on PRVC. He agreed to have blood drawn today and it showed a Hgb of 8.9 but a WBC count of 23.3. He remains afebrile and VS is stable. He still refuses to engage in any further discussion about his medical care. Per nursing had several episodes of diarrhea, C.diff was sent which was negative. 06/14/20 He was seen and examined at bedside. He appears comfortable in bed. Nurse reported that he refused to have his catheter changed. Also still having diarrhea, C.diff negative. He has refused a rectal tube, he was started on loperamide. He agreed to have his naidu replaced.UA showed large nitrite and leukocyte with >182 WBC. Urine culture pending. Will await culture and treat based on results. 06/15/20 He was seen and examined at bedside. He appears comfortable. He agreed to have a chest CT today which unfortunately showed moderate bilateral pleural effusions with bilateral multifocal pneumonia. I sent for a tracheal aspirate culture.I spoke to the pharmacist and reviewed the abx he had received so far. So far he has received ceftriaxone, cefepime, unasyn, dapto, linezolid, and vanc. Will await urine and tracheal aspirate culture. 06/16/20 Seen and examined at bedside. explained to him CT findings and the need to restart abx. Still awaiting tracheal aspirate result but his UA is growing E.cloacae sensitive to ceftri and I have started him on this. Still awaiting tracheal aspirate culture and sensitivity. Further weaning trail will likely fail due to pleural effusion and pneumonia seen on CT. He was again asking when he can eat food and I told him that his penumonia is likely ventilator and aspiration pneumonia so still not safe for him to eat food by mouth. 06/17/20 HE was seen and examined at bedside. He was very upset because he claims that the nurses were late giving him his pain medications. I have started him on ceftriaxone. He has Enterobacter cloacae growing in his urine staph aureus, sternotrophomonas maltophilia, Enterobacter cloacae growing in his sputum which is also sensitive to ceftriaxone. I explained to him that we would need to repeat chest x-ray as well as blood draws to monitor his response to treatment but he is refusing this again. I have spoken to Kendy from discharge planning regarding his disposition and I was told that they have sent out referrals to [id number] facilities because all the ones here in [place] has refused him. Reason For Visit: MUCOUS PLUGGING, ACUTE HYPOXIC RESPIRATORY FAILURE Physical Exam Vital Signs: Temp Pulse Resp BP Pulse Ox 98.1 F 102 H 21 H 130/76 H 92 06/17/20 11:15 06/17/20 14:20 06/17/20 14:20 06/17/20 11:15 06/17/20 16:00 Intake & Output 06/16/20 06/17/20 06/18/20 06:59 06:59 06:59 Intake Total 1401 840 Output Total 1600 750 400 Balance -199 90 -400 Weight 74.1 kg 74.8 kg General appearance: PRESENT: no acute distress, other - Uncooperative Head exam: PRESENT: atraumatic, normocephalic Eye exam: PRESENT: EOMI, PERRLA Mouth exam: PRESENT: moist Neck exam: PRESENT: tracheostomy Respiratory exam: PRESENT: rales, symmetrical, unlabored Cardiovascular exam: PRESENT: RRR, +S1, +S2 Pulses: PRESENT: +2 pedal pulses bilateral GI/Abdominal exam: PRESENT: normal bowel sounds, soft, other - PEG tube in place. ABSENT: rebound, tenderness Gentrourinary exam: PRESENT: indwelling catheter Extremities exam: ABSENT: joint swelling, +1 edema Musculoskeletal exam: PRESENT: other - muscle atrophy noted Neurological exam: PRESENT: alert, awake, oriented to person, oriented to place, oriented to time, oriented to situation Psychiatric exam: PRESENT: normal mood Skin exam: PRESENT: normal color Results Laboratory Results: 06/13/20 15:47 06/13/20 15:47 06/15/20 15:39 Tracheal Aspirate Gram Stain - Final 06/15/20 15:39 Tracheal Aspirate Sputum Culture - Final Staphylococcus Aureus Stenotrophomonas Maltophilia Enterobacter Cloacae Normal Kathie Absent 04/20/20 04/23/20 04/23/20 09:00 01:55 01:55 Creatine Kinase < 20 L CK-MB (CK-2) 2.20 Troponin I < 0.012 0.082 NT-Pro-B Natriuret Pep 32206 H 04/23/20 04/23/20 04/23/20 05:58 08:22 14:50 Creatine Kinase < 20 L < 20 L CK-MB (CK-2) 2.24 Troponin I 0.066 NT-Pro-B Natriuret Pep 04/23/20 06/09/20 14:50 05:20 Creatine Kinase CK-MB (CK-2) 2.09 Troponin I 0.057 NT-Pro-B Natriuret Pep 23259 H Impressions: PICC Line Insertion 05/07/20 00:00 IMPRESSION: SUCCESSFUL PLACEMENT OF A 5 FR DUAL LUMEN 47 CM PICC IN THE LEFT BRACHIOCEPHALIC VEIN. KUB X-Ray 05/16/20 11:57 IMPRESSION: NG tube as described. Findings as described. Modified Barium Swallow 06/03/20 00:00 IMPRESSION: LARYNGEAL PENETRATION AND ASPIRATION ABOVE. HE WAS PLEASE SEE SPEECH PATHOLOGIST REPORT FOR OTHER FINDINGS AND RECOMMENDATIONS. Thoracentesis Ultrasound 06/08/20 14:12 IMPRESSION: SUCCESSFUL THORACENTESIS USING ULTRASOUND GUIDANCE. Chest X-Ray 06/08/20 19:30 IMPRESSION: Interval increase in opacity overlying the right mid to lower lung zone. Findings are nonspecific. Close attention on follow-up is recommended. CT chest could be considered for further evaluation if clinically indicated. Chest CT 06/15/20 00:00 IMPRESSION: Moderate bilateral pleural effusions with bilateral multifocal pneumonia. Mediastinal lymphadenopathy is probably reactive. Assessment and Plan - Diagnosis (1) Bilateral pneumonia Qualifiers: Pneumonia type: aspiration pneumonia Lung location: lower lobe of lung Is this a current diagnosis for this admission?: Yes Plan: - CT chest showed moderate sized pleural effusion and bilateral pneumonia - he does not have previous CT chest to compare - tracheal aspirate growing staph aureus, sternotrophomonas, Enterobacter cloacae similar to his previous sputum cultures - I have started him on ceftriaxone based on culture results -He is refusing repeat blood draws and chest x-ray to monitor his response to treatment. - (2) Urinary tract infection Qualifiers: Urinary tract infection type: catheter-associated UTI Is this a current diagnosis for this admission?: Yes Plan: - has had a naidu for a while and has refused to change it. he agreed to have it changed 06/14/20 - UA +ve for UTI - WBC 23 - he is however afebrile - culture growing e. cloacae sensitive to ceftri and I have started him on this. (3) Leukocytosis Qualifiers: Leukocytosis type: unspecified Qualified Code(s): D72.829 - Elevated white blood cell count, unspecified Is this a current diagnosis for this admission?: Yes Plan: WBC 13.5> 16.2-> 15.2-> 14.4-> 14.5>23.3 Remains afebrile. I have ordered a repeat CXR to assess for possible pneumonia. Will not order Blood cx as he remains afebrile with stable VS and we have so many false positive blood culture. UA showed positive nitrite and leucocyte, WBC >182 On ceftriaxone (4) Respiratory failure, [id number] Qualifiers: Respiratory failure complication: hypoxia Qualified Code(s): J96.21 - Acute and chronic respiratory failure with hypoxia Is this a current diagnosis for this admission?: Yes Plan: - Tenuously improved; now maintaining oxygen saturations of 98% on FiO2 80%. Continues to require vent PRVC setting. Has a trach and on mechanical ventilation; multiple failed weaning trials. -CXR showed significantly increased right pleural effusion. Persistent patchy airspace opacities in both lungs; slight improvement in the left upper lobe. -Repeat CXR w/ Interval increase in opacity overlying the right middle to lower lung zones - Now s/p thoracentesis w/ ~800 ml removed. -Pleural effusion w/ WBC 367, RBC 88. -LDH 138, Albumin 0.7, Glucose 174. -Cultures no growth at 48 hrs pleural fluid -repeat CT chest moderate bilateral pleural effusion and multifocal pneumonia -Remains afebrile. - started on ceftriaxone 06/16/20 per urine culture result -Have not tried to wean him off the ventilator since he is likely to fail it with a moderate pleural effusion and pneumonia (5) Chronic pain Qualifiers: Chronic pain type: other chronic pain Qualified Code(s): G89.29 - Other chronic pain Is this a current diagnosis for this admission?: Yes Plan: - Continued difficulty with managing patient's opiate dependence, chronic pain, desire for IV route, and hypoxia. Consulted pain management today for recommendations. Spoke with Lili Velazco SEMICONDUCTOR EQUIPMENT TECHNICIAN-C (who consulted w/ Dr. Richardson) regarding patient's prior opiate dependance, clinical course, and difficulty w/ managing pain while transitioning to an oral/peg option. They advise to discontinue IV analgesics. Recommended Morphine 10 mg via PEG q4h prn. They advise against further adjustments/negotiations without evidence of new, acute, and objectively verifiable problem. Did adjust schedule to Morphine 7.5 mg q3 hrs. This is the same 24 hr morphine dose as was recommended; however, the increased schedule has improved patient's behavior toward nursing. I do not anticipate this to continue and he will likely make attempts to renegotiate pain medications in the near future. (6) Anxiety about health Is this a current diagnosis for this admission?: Yes Plan: - has frequent attacks of anxiety - on buspar 10 BID - vistaril seems to help him during acute bouts. Started on 25M q8 PRN - would avoid starting him on benzo (7) Critical illness myopathy Is this a current diagnosis for this admission?: Yes Plan: -2/2 ICU and prolonged hospital stay - would need extensive rehab given that he has already been in the hospital for 3 months or more PT/OT/ST consulted. - Has often refused rehab despite encouragement (8) Dysphagia Qualifiers: Dysphagia type: oropharyngeal phase Qualified Code(s): R13.12 - Dysphagia, oropharyngeal phase Is this a current diagnosis for this admission?: Yes Plan: Now with PEG -Failed swallow eval 06/03/20 - currently receiving feeding via PEG with free water flushes - Na stable . (9) Bacteremia due to Enterococcus Is this a current diagnosis for this admission?: Yes Plan: - completed antibiotics treatment TTE as recommended by ID is pending. (10) MSSA bacteremia Is this a current diagnosis for this admission?: Yes Plan: completed treatment Ideally should have a blood culture but he has been refusing most work-up Echocardiogram as recommended by ID is pending. 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 (13) Acute metabolic encephalopathy Is this a current diagnosis for this admission?: Yes Plan: Resolved (14) Debility Is this a current diagnosis for this admission?: Yes Plan: PT/OT/ST consulted Needs LTAC placement (15) Dependent on ventilator Is this a current diagnosis for this admission?: Yes Plan: - weaning will likely fail as he has bilateral pleural effusion and multifocal pneumonia -Discharge planning sending out referrals to [id number] facilities that can take him (16) COVID-19 Is this a current diagnosis for this admission?: Yes Plan: -resolved but patient has suffered significant comorbidity from it - no indication to retest - continue vent support. Wean as tolerated - Time Time Spent with patient: 25-34 minutes Medications reviewed and adjusted accordingly: Yes Anticipated Discharge Disposition: Licensed Insurance Sales Agent Care Facility Anticipated Discharge Timeframe: TBD
[2020-06-17] MEDS: CEFTRIAXONE 1 GM/D5W RTU 1 GM/50 ML RTUPB IV SCH (18:39)
[2020-06-18] MEDS: MORPHINE SULFATE 10 MG/5 ML ORAL SOLUTION UDCUP PO PRN ×6 (02:23→22:24)
[2020-06-18] MEDS: IPRATROPIUM/ALBUTEROL 0.5-2.5 MG/3 ML AMPUL NEB PRN ×3 (03:07→20:53)
[2020-06-18] MEDS: DIPHENHYDRAMINE HCL 50 MG/ML VIAL IV PRN ×3 (03:49→19:56)
[2020-06-18] MEDS: HYDROXYZINE HCL INJ 50 MG/1 ML VIAL IM PRN ×3 (03:49→19:55)
[2020-06-18] MEDS: INSULIN REG, HUMAN 100 UNIT/ML 3 ML VIAL (PYX) SUBCUT SCH ×4 (06:55→19:00)
[2020-06-18] MEDS: ACETYLCYSTEINE 20% SOLN 800 MG/4 ML VIAL.NEB NEB SCH ×2 (09:26→20:53)
[2020-06-18] MEDS: FUROSEMIDE ORAL SOLN 40 MG/5 ML UDCUP PEG SCH (09:34)
[2020-06-18] MEDS: LOPERAMIDE HCL 2 MG CAPSULE PO SCH ×2 (09:43→17:37)
[2020-06-18] MEDS: BUSPIRONE HCL 10 MG TABLET PEG SCH ×2 (09:45→17:38)
[2020-06-18] MEDS: CALCIUM CARBONATE 500 MG TAB.CHEW PEG SCH ×2 (09:45→17:38)
[2020-06-18] MEDS: SCOPOLAMINE HYDROBROMIDE 1.5 MG PATCH.TD72 TD SCH (09:55)
[2020-06-18] MEDS: NORMAL SALINE 10 ML SDV (SCHEDULED) IV SCH ×2 (10:54→22:26)
[2020-06-18] MEDS: ONDANSETRON HCL INJ/PF 4 MG/2 ML SDV IV PRN (14:57)
--- NOTE | 2020-06-18 17:10 | PDOC PROGRESS REPORT ---
Subjective Date:: 06/18/20 Subjective:: Per admitting physician: "FREDDIE LAZO JR is a 60 year old male, past medical history of type 2 diabetes hypertension CHF narcotic dependence CKD who was recently discharged from [facility] April 19, 2020 after being admitted for 89 days secondary to acute respiratory failure from COVID pneumonia. He was discharged with a tracheostomy tube uncuffed. Before discharge he has been able to speak and eat and the plan was to eventually remove the tracheostomy at [facility]. Sent back to the emergency room for evaluation of shortness of breath. EMS was called by the facility because the patient was diaphoretic with a blood glucose of 30 staff administered 1 mg glucagon in a tube and a half of oral glucose prior to EMS arrival and recheck of blood glucose was 40. Upon EMS arrival patient was pale with diminished breath sounds so he was placed on 15 L O2 via nonrebreather O2 sats went up to 86% and blood glucose was 147 upon ED arrival. In the emergency room he apparently continued to be hypoxic hence a trach cuff was placed and he was put back on mechanical ventilation briefly. He was also noted to be hypotensive hence central line was placed by Dr. Jean-Baptiste. Patient was given IV fluids. Repeat chest x-ray showed improvement of his diffuse bibasilar opacities compared from previous chest x-ray. Dr. Chandler evaluated him in the ED who felt that he does not need ICU admission. He was given 4 L of IV fluids. He was eventually transitioned to tracheal collar and was maintaining his O2 saturation to 95%. Patient was then admitted for further management. WBC count 19.5 in the ED he was given 1 dose of aztreonam and vancomycin." Per Previous Physician: "05/14/2020 MUCOUS PLUGGING, ACUTE HYPOXIC RESPIRATORY FAILURE Patient was seen early on in rounds this morning. At the time patient was noted to sound congested. He however had been suctioned and apparently no further suctioning required at that time. I discussed with the patient the need to be able to give him medications either through an NG tube or PEG tube IV fluids or TPN or combination of all these however patient refused. Patient was new to me today and after discussing with the nurse I did find out that he had been refusing multiple modalities of treatment and management. About 30 minutes after saw this patient when he was still relatively stable a rapid response was called and apparently he went into respiratory distress. He was found to be hypoxic. By the time he got there he was cyanotic. His oxygen saturation was in the 60s also. He was 100% oxygen and his BiPAP setting was changed. Multiple attempts to oxygenate him failed. It was felt that patient will be better served in the intensive care unit. Early Childhood Lead Teacher was informed and Came to assess patient. Patient was transferred to the unit. Please see Dr. Hernández's notes for further details chest x-ray obtained reveals diffuse opacification in the left chest possibly due to extensive infiltrate atelectasis collapse pleural effusion with improved aeration in the right lung base. This is consistent with his lung findings which shows grossly diminished air entry." 05/20/2020 Patient sent out of the ICU yesterday afternoon. Per my discussion with Dr. Chandler, patient has frequent mucous plugging and needs to be lavaged and suctioned by respiratory therapy frequently. It is likely the patient will continue mucous plugging intermittently and may need to be sent back to the ICU at some point. He has been maintained on trach collar with intermittent ventilatory support. Patient was asking for increases in his narcotics and I discussed the risks of respiratory depression if we were to pursue this. We will keep his narcotics at the current dosing and frequency for now. 05/21/2020 Patient had a episode of mucous plugging which resolved with aggressive lavage and suctioning by RT. Patient also had a problem with his NG feeding tube where it was somewhat displaced and nursing replaced this infected follow-up chest x- ray To confirm location. Blood culture on 05/09 remains negative. Latest chest x-ray shows diffuse bilateral disease which could potentially be worse. Patient is calm and resting today and does not have any new complaints. 05/22/2020 Patient appears rather calm today until I entered the room. He then wrote on his marker board and mouthed words to me stating he wants IV narcotics and IV sedatives. I discussed with him that adding these medications could be detrimental to his respiratory status. We will keep his pain medication as it is for now. I believe he is gradually improving as respiratory therapy is doing a great job lavaging and suctioning out large mucous plugs daily. Perhaps if we do enough of this every day, patient will be able to wean from the ventilator and tolerate trach collar alone. 05/23/2020 I had an extensive discussion with the patient today regarding PEG tube placement and he repeatedly stated he wanted to speak to the doctor and I repeatedly told him I am the doctor. I asked him if he would like me to get the surgeon involved to place a PEG tube. He refused to answer me at this point and did not seem interested in any my recommendations. We will ask respiratory therapy if he can get CPT to break up mucous plugs, continue lavaging and suctioning, and continue attempting to wean from the vent. Hemoglobin showed an acute drop down to 6.4 and this was rechecked to reveal 6.9. We will transfuse 1 unit PRBC which may help with his oxygenation as well. Will need to be mindful of the extra volume this will provide and watch for volume overload. Blood cell count is higher while hemoglobin and platelets are lower. Calcium is significantly lower we will replete this both IV and oral. 05/24/2020 Patient is resting comfortably today. He is off IV antibiotics and I have discontinued his IV Benadryl in place of Benadryl capsules that can go through his NG tube. We are still waiting on the patient to decide if he wants a PEG tube to be placed. It is my understanding that he cannot go to an acute care facility for rehab until he has a definitive feeding tube placed and he cannot go to a regular SNF while he is requiring the vent. If the patient wants a PEG tube or if we can wean him from the vent, disposition can move forward. Respiratory therapy will continue to lavage and suction the patient regularly and weaning from the ventilator. I discussed this with nursing. Hemoglobin is higher and potassium is lower today. His chest x-ray looks noticeably improved per my read. 05/25/2020 Patient fully awake and alert today and states repeatedly that he wants a PEG tube placed. He states that his pain after procedures is only well controlled on Dilaudid and I stated I would give him a low-dose of Dilaudid available as needed afterwards. I have consulted general surgery discussed case with Dr. Small who is agreed to consult on the patient. Patient will have his PEG tube placed tomorrow and will be n.p.o. at midnight tonight. Tube feeds will need to be held. We will make sure the patient has adequate pain control afterwards. Case management will need to start aggressively applying the patient for LTAC facilities starting on Wednesday. 05/26/2020 Patient successfully had PEG tube placed. He is having some additional pain I have increased the frequency of his IV Dilaudid. He understands we will begin tapering this tomorrow. Respiratory status is approximately the same as before. He still requiring frequent ventilator support. Latest blood cultures are negative. Plan is for patient to go to [facility] in the next few days if he is accepted. 05/27/2020 Patient states his pain is well controlled and he would like to start transitioning from IV narcotics to oral narcotics in anticipation of going to LTAC. I have switched his Dilaudid to oral I will leave a smaller dose available for breakthrough pain. Patient states he is motivated to perform more aggressive rehab and he knows that this cannot be accomplished inpatient. Patient's breathing is about the same as it was yesterday. Patient still requiring ventilator support. 05/28/20 Patient was seen and examined at bedside. Complains of pain lower abdomen however physical exam not consistent with the amount of pain he is complaining of. He is also requesting for more IV pain medications. He is status post PEG tube placement postop day 1 currently tolerating tube feedings. No significant change on his pulmonary status. 05/29/20 Patient was seen and examined at bedside. No new complains. Asking if he can have clear soup, I told him it would not be advisable now. He is asking for more IV pain medications as usual. 05/30/20 Patient seen and examined. Complaining of anxiety. I have increased his Buspar to 10 BID. Swallow eval for tomorrow. 05/31/20 Patient was seen and examined at bedside. He apparently refused swallow eval that was ordered today. But later when I rounded on him he claimed that did not even come. It has been noted before the he refuses a lot of therapeutic interventions. He is stable otherwise on mechanical ventilation. 06/01/20 Patient was seen and examined at bedside. he is again asking on when he can do a swallow eval. I have told him this will be done on wednesday. He was also asking if he has a medication for his anxiety and again I told him that he has Buspar BID. He should not be started on Xanax or any other benzo. 06/02/20 PAtient was seen and examined at bedside. He was asleep after receiving vistaril for anxiety. I have asked the respiratory therapist to try and wean him off with PSV. however he desaturates so he was put back on SIMV. 06/03/20 Patient was seen and examined at bedside. He still has episodes of anxiety and vistaril seems to have helped. He had just received his dilaudid prior to my visit hence he was very sleepy and did not want to talk much. He failed swallow eval today. 06/04/20 Patient was seen and examined at bedside. No new complains, had PT today. Afebrile. PEG tube feeding on going. 06/11/20 Care resumed today. He is complaining of pain and wanted more pain medications which I refused to give him and then he refused to engage in anymore conversation. He does appear comfortable otherwise. Notes from previous week reviewed. He was transfused with 2 u PRNC due to anemia. Also underwent thoracentesis with removal of 800 ml pleural fluid. 06/12/20 He was seen and examined at bedside. He is still refusing lab work ups and repeat CT chest despite explaining the medial necessity for this. He refuses to engage in any more conversation. 06/13/20 He was seen and examined at bedside. HE is on 40% FIO2 on PRVC. He agreed to have blood drawn today and it showed a Hgb of 8.9 but a WBC count of 23.3. He remains afebrile and VS is stable. He still refuses to engage in any further discussion about his medical care. Per nursing had several episodes of diarrhea, C.diff was sent which was negative. 06/14/20 He was seen and examined at bedside. He appears comfortable in bed. Nurse reported that he refused to have his catheter changed. Also still having diarrhea, C.diff negative. He has refused a rectal tube, he was started on loperamide. He agreed to have his naidu replaced.UA showed large nitrite and leukocyte with >182 WBC. Urine culture pending. Will await culture and treat based on results. 06/15/20 He was seen and examined at bedside. He appears comfortable. He agreed to have a chest CT today which unfortunately showed moderate bilateral pleural effusions with bilateral multifocal pneumonia. I sent for a tracheal aspirate culture.I spoke to the pharmacist and reviewed the abx he had received so far. So far he has received ceftriaxone, cefepime, unasyn, dapto, linezolid, and vanc. Will await urine and tracheal aspirate culture. 06/16/20 Seen and examined at bedside. explained to him CT findings and the need to restart abx. Still awaiting tracheal aspirate result but his UA is growing E.cloacae sensitive to ceftri and I have started him on this. Still awaiting tracheal aspirate culture and sensitivity. Further weaning trail will likely fail due to pleural effusion and pneumonia seen on CT. He was again asking when he can eat food and I told him that his penumonia is likely ventilator and aspiration pneumonia so still not safe for him to eat food by mouth. 06/17/20 HE was seen and examined at bedside. He was very upset because he claims that the nurses were late giving him his pain medications. I have started him on ceftriaxone. He has Enterobacter cloacae growing in his urine staph aureus, sternotrophomonas maltophilia, Enterobacter cloacae growing in his sputum which is also sensitive to ceftriaxone. I explained to him that we would need to repeat chest x-ray as well as blood draws to monitor his response to treatment but he is refusing this again. I have spoken to Kendy from discharge planning regarding his disposition and I was told that they have sent out referrals to [id number] facilities because all the ones here in [place] has refused him. 06/18/2020 Patient transitioned under my care due to shift changes. Patient evaluated by myself on rounds. He is lying in bed with trach in place. His neighbor and friend is present in the room during evaluation. Patient complaints of discomfort in his chest which he relates as persistent for several weeks. EKG obtained, similar to EKG 04/23/2020. Informed the patient that we need to repeat chest x-ray and labs; pt refused again today. Discussed case with nurse, unaware of date of Naidu placement, if > 1 month, plan to change out. Patient has been compliant with medications and q4 blood pressure, but otherwise refusing any further interventions or studies. Reason For Visit: MUCOUS PLUGGING, ACUTE HYPOXIC RESPIRATORY FAILURE Physical Exam Vital Signs: Temp Pulse Resp BP Pulse Ox 97.8 F 96 20 134/79 H 97 06/18/20 09:21 06/18/20 12:05 06/18/20 12:05 06/18/20 12:05 06/18/20 12:05 Intake & Output 06/17/20 06/18/20 06/19/20 06:59 06:59 06:59 Intake Total 840 50 190 Output Total 750 1250 Balance 90 -1200 190 Weight 74.8 kg 75 kg General appearance: PRESENT: no acute distress, thin, other - Patient uncooperative during exam. Head exam: PRESENT: atraumatic, normocephalic Eye exam: PRESENT: EOMI Mouth exam: PRESENT: moist Neck exam: PRESENT: tracheostomy Respiratory exam: PRESENT: rales, symmetrical, unlabored Cardiovascular exam: PRESENT: RRR, +S1, +S2 Pulses: PRESENT: normal radial pulses GI/Abdominal exam: PRESENT: soft, other - PEG tube in place. ABSENT: distended, guarding, tenderness Gentrourinary exam: PRESENT: indwelling catheter Extremities exam: PRESENT: joint swelling, +1 edema Musculoskeletal exam: PRESENT: other - Muscle atrophy/wasting. ABSENT: ambulatory, deformity, dislocation, full ROM Neurological exam: PRESENT: alert, awake, oriented to person, oriented to place, oriented to time, oriented to situation Psychiatric exam: PRESENT: agitated Skin exam: PRESENT: dry, intact, warm Results Laboratory Results: 06/13/20 15:47 06/13/20 15:47 06/15/20 15:39 Tracheal Aspirate Gram Stain - Final 06/15/20 15:39 Tracheal Aspirate Sputum Culture - Final Staphylococcus Aureus Stenotrophomonas Maltophilia Enterobacter Cloacae Normal Kathie Absent 04/20/20 04/23/20 04/23/20 09:00 01:55 01:55 Creatine Kinase < 20 L CK-MB (CK-2) 2.20 Troponin I < 0.012 0.082 NT-Pro-B Natriuret Pep [id number] H 04/23/20 04/23/20 04/23/20 05:58 08:22 14:50 Creatine Kinase < 20 L < 20 L CK-MB (CK-2) 2.24 Troponin I 0.066 NT-Pro-B Natriuret Pep 04/23/20 06/09/20 14:50 05:20 Creatine Kinase CK-MB (CK-2) 2.09 Troponin I 0.057 NT-Pro-B Natriuret Pep [id number] H Impressions: PICC Line Insertion 05/07/20 00:00 IMPRESSION: SUCCESSFUL PLACEMENT OF A 5 FR DUAL LUMEN 47 CM PICC IN THE LEFT BRACHIOCEPHALIC VEIN. KUB X-Ray 05/16/20 11:57 IMPRESSION: NG tube as described. Findings as described. Modified Barium Swallow 06/03/20 00:00 IMPRESSION: LARYNGEAL PENETRATION AND ASPIRATION ABOVE. HE WAS PLEASE SEE SPEECH PATHOLOGIST REPORT FOR OTHER FINDINGS AND RECOMMENDATIONS. Thoracentesis Ultrasound 06/08/20 14:12 IMPRESSION: SUCCESSFUL THORACENTESIS USING ULTRASOUND GUIDANCE. Chest X-Ray 06/08/20 19:30 IMPRESSION: Interval increase in opacity overlying the right mid to lower lung zone. Findings are nonspecific. Close attention on follow-up is recommended. CT chest could be considered for further evaluation if clinically indicated. Chest CT 06/15/20 00:00 IMPRESSION: Moderate bilateral pleural effusions with bilateral multifocal pneumonia. Mediastinal lymphadenopathy is probably reactive. Assessment and Plan - Diagnosis (1) Bilateral pneumonia Qualifiers: Pneumonia type: aspiration pneumonia Lung location: lower lobe of lung Is this a current diagnosis for this admission?: Yes Plan: Persistent rales on PE. Denies difficulty breathing. - CT chest 06/15 notable for moderate sized pleural effusion and bilateral pneumonia - Tracheal aspirate 06/15 positive for staph aureus, sternotrophomonas, Enterobacter cloacae similar to his previous sputum cultures - Ceftriaxone started 06/16 as per sensitivity. Patient continues to refuse repeat blood draws and CXR to monitor response to treatment, has refused previously as well. Patient made aware of need for studies to monitor disease progression/appropriate treatment. He expresses understanding and refuses further labs or imaging at this time. (2) Urinary tract infection Qualifiers: Urinary tract infection type: catheter-associated UTI Is this a current diagnosis for this admission?: Yes Plan: Chronic Naidu catheter most recently changed 06/14/20 - UC 06/14 + Enterobacter cloacae. Sensitive to ceftriaxone. - 06/13 WBC 23; has refused labs since. - Remains afebrile -Ceftriaxone started 06/16. (3) Leukocytosis Qualifiers: Leukocytosis type: unspecified Qualified Code(s): D72.829 - Elevated white blood cell count, unspecified Is this a current diagnosis for this admission?: Yes Plan: WBC 13.5> 16.2-> 15.2-> 14.4-> 14.5> 23.3 06/13, has since refused lab draw. - Persistently afebrile with VSS. - Refused to repeat chest x-ray to assess for possible pneumonia. - Blood culture 05/09/2020 without growth in 5 days; refuses repeat BC. - Likely secondary to UTI, as above. - Continue Ceftriaxone as above As above, patient refusing furthering imaging or labs, unfortunately unable to identify or locate origin of infection at this time. Patient understanding of this and continues to refuse labs/imaging. (4) Respiratory failure, [id number] Qualifiers: Respiratory failure complication: hypoxia Qualified Code(s): J96.21 - Acute and chronic respiratory failure with hypoxia Is this a current diagnosis for this admission?: Yes Plan: Improved; maintaining oxygen saturations of 98% on FiO2 75%. - Continues to require vent PRVC setting. - Has a trach and on mechanical ventilation; multiple failed weaning trials. - CXR 06/08 Interval increase in opacity overlying the right middle to lower lung zones - Now s/p thoracentesis 06/08 with ~800 ml removed. - Pleural effusion w/ WBC 367, RBC 88. - LDH 138, Albumin 0.7, Glucose 174. - Cultures no growth. - Repeat CT 06/15 chest moderate bilateral pleural effusion and multifocal pneumonia (Ceftriaxone as above) - Continue with ventilator (5) Chronic pain Qualifiers: Chronic pain type: other chronic pain Qualified Code(s): G89.29 - Other chronic pain Is this a current diagnosis for this admission?: Yes Plan: Continued difficulty with managing patient's opiate dependence, chronic pain, desire for IV route, and hypoxia. - Previous provider notes reviewed - Morphine 10 mg via PEG q4h prn as per pain management recommendations. - This was adjusted to Morphine 7.5mg q3hrs with improvement in pt treatment toward nursing. - Pain management with recommendations to not renegotiate pain medications with the patient to maintain on this current 24-hour morphine dose. (6) Anxiety about health Is this a current diagnosis for this admission?: Yes Plan: As per previous providers on case and nursing patient with frequent anxiety attacks regarding his current state of health. - Continue buspar 10 BID - Utilize vistaril 25m q8prn during acute bouts. - Advised against benzo therapy. (7) Critical illness myopathy Is this a current diagnosis for this admission?: Yes Plan: With history of ICU and prolonged hospital stay - Given 3+ month hx hpspital admission would require extensive rehab - PT/OT/ST consulted - Pt continues to refuse rehab (8) Dysphagia Qualifiers: Dysphagia type: oropharyngeal phase Qualified Code(s): R13.12 - Dysphagia, oropharyngeal phase Is this a current diagnosis for this admission?: Yes Plan: Now with PEG - Most recent swallow eval 06/03/20, failed. - currently receiving feeding via PEG with free water flushes. - Na stable. - Unable to monitor due to lab refusal. (9) Bacteremia due to Enterococcus Is this a current diagnosis for this admission?: Yes Plan: Resolved - 05/07 + BC enterococcus - 05/09 BC without growth > 5 days - Completed Abx course - TTE as recommended by ID pending, pt has refused. (10) MSSA bacteremia Is this a current diagnosis for this admission?: Yes Plan: Resolved, completed abx treatment - BC 05/07 + MSSA - BC 05/09 without growth > 5 days - Patient refusing repeat blood culture. - Patient refusing echocardiogram as recommended by ID. (11) Hyperglycemia due to type 2 diabetes mellitus Qualifiers: Diabetes mellitus intermediate insulin use: with technician terminal and repeater use Qualified Code(s): E11.65 - Type 2 diabetes mellitus with hyperglycemia; Z79.4 - technician terminal and repeater (current) use of insulin Is this a current diagnosis for this admission?: Yes Plan: POC glucose 130 today. - On insulin - Hypoglycemic protocol in place (12) Acute kidney injury superimposed on chronic kidney disease Is this a current diagnosis for this admission?: Yes Plan: Resolved. - BUN/Creatinine 28/0.94 as per most recent labs 06/13 - Since refusing labs (13) Acute metabolic encephalopathy Is this a current diagnosis for this admission?: Yes Plan: Resolved. (14) Debility Is this a current diagnosis for this admission?: Yes Plan: PT/OT/ST consulted though repeatedly refusing - Needs LTAC placement (15) Dependent on ventilator Is this a current diagnosis for this admission?: Yes Plan: O2 saturation 98% with FiO2 75. -Slowly wean this tolerated. -Rose Mary will faily secondary to bilateral pleural portion of multifocal pneumonia. - Discharge planning sending out referrals to [id number] facilities to take him; denies by all instate facilities (16) COVID-19 Is this a current diagnosis for this admission?: Yes Plan: -resolved but patient has suffered significant comorbidity from it - no indication to retest - continue vent support. Wean as tolerated - Time Time Spent with patient: 25-34 minutes Medications reviewed and adjusted accordingly: Yes Anticipated Discharge Disposition: Detention Care Facility Anticipated Discharge Timeframe: TBD
[2020-06-18] MEDS: CEFTRIAXONE 1 GM/D5W RTU 1 GM/50 ML RTUPB IV SCH (17:38)
[2020-06-19] MEDS: ONDANSETRON HCL INJ/PF 4 MG/2 ML SDV IV PRN ×2 (00:11→17:37)
[2020-06-19] MEDS: INSULIN REG, HUMAN 100 UNIT/ML 3 ML VIAL (PYX) SUBCUT SCH ×4 (01:00→17:44)
[2020-06-19] MEDS: MORPHINE SULFATE 10 MG/5 ML ORAL SOLUTION UDCUP PO PRN ×7 (02:23→20:36)
[2020-06-19] MEDS: HYDROXYZINE HCL INJ 50 MG/1 ML VIAL IM PRN (05:31)
[2020-06-19] MEDS: DIPHENHYDRAMINE HCL 50 MG/ML VIAL IV PRN ×3 (05:32→22:38)
[2020-06-19] MEDS: IPRATROPIUM/ALBUTEROL 0.5-2.5 MG/3 ML AMPUL NEB PRN ×3 (09:08→21:43)
[2020-06-19] MEDS: ACETYLCYSTEINE 20% SOLN 800 MG/4 ML VIAL.NEB NEB SCH ×2 (09:09→21:43)
[2020-06-19] MEDS: FUROSEMIDE ORAL SOLN 40 MG/5 ML UDCUP PEG SCH (11:30)
[2020-06-19] MEDS: LOPERAMIDE HCL 2 MG CAPSULE PO SCH ×2 (11:30→17:27)
[2020-06-19] MEDS: BUSPIRONE HCL 10 MG TABLET PEG SCH ×2 (11:30→17:27)
[2020-06-19] MEDS: CALCIUM CARBONATE 500 MG TAB.CHEW PEG SCH ×2 (11:30→17:27)
[2020-06-19] MEDS: SCOPOLAMINE HYDROBROMIDE 1.5 MG PATCH.TD72 TD SCH (11:32)
[2020-06-19] MEDS: NORMAL SALINE 10 ML SDV (SCHEDULED) IV SCH ×2 (11:33→22:39)
[2020-06-19] MEDS: CEFTRIAXONE 1 GM/D5W RTU 1 GM/50 ML RTUPB IV SCH (17:27)
--- NOTE | 2020-06-19 19:13 | PDOC PROGRESS REPORT ---
Subjective Date:: 06/19/20 Subjective:: Per admitting physician: "FREDDIE LAZO JR is a 60 year old male, past medical history of type 2 diabetes hypertension CHF narcotic dependence CKD who was recently discharged from [facility] April 19, 2020 after being admitted for 89 days secondary to acute respiratory failure from COVID pneumonia. He was discharged with a tracheostomy tube uncuffed. Before discharge he has been able to speak and eat and the plan was to eventually remove the tracheostomy at [facility]. Sent back to the emergency room for evaluation of shortness of breath. EMS was called by the facility because the patient was diaphoretic with a blood glucose of 30 staff administered 1 mg glucagon in a tube and a half of oral glucose prior to EMS arrival and recheck of blood glucose was 40. Upon EMS arrival patient was pale with diminished breath sounds so he was placed on 15 L O2 via nonrebreather O2 sats went up to 86% and blood glucose was 147 upon ED arrival. In the emergency room he apparently continued to be hypoxic hence a trach cuff was placed and he was put back on mechanical ventilation briefly. He was also noted to be hypotensive hence central line was placed by Dr. Jean-Baptiste. Patient was given IV fluids. Repeat chest x-ray showed improvement of his diffuse bibasilar opacities compared from previous chest x-ray. Dr. Chandler evaluated him in the ED who felt that he does not need ICU admission. He was given 4 L of IV fluids. He was eventually transitioned to tracheal collar and was maintaining his O2 saturation to 95%. Patient was then admitted for further management. WBC count 19.5 in the ED he was given 1 dose of aztreonam and vancomycin." Per Previous Physician: "05/14/2020 MUCOUS PLUGGING, ACUTE HYPOXIC RESPIRATORY FAILURE Patient was seen early on in rounds this morning. At the time patient was noted to sound congested. He however had been suctioned and apparently no further suctioning required at that time. I discussed with the patient the need to be able to give him medications either through an NG tube or PEG tube IV fluids or TPN or combination of all these however patient refused. Patient was new to me today and after discussing with the nurse I did find out that he had been refusing multiple modalities of treatment and management. About 30 minutes after saw this patient when he was still relatively stable a rapid response was called and apparently he went into respiratory distress. He was found to be hypoxic. By the time he got there he was cyanotic. His oxygen saturation was in the 60s also. He was 100% oxygen and his BiPAP setting was changed. Multiple attempts to oxygenate him failed. It was felt that patient will be better served in the intensive care unit. Crankshaft Grinder was informed and Came to assess patient. Patient was transferred to the unit. Please see Dr. Hernández's notes for further details chest x-ray obtained reveals diffuse opacification in the left chest possibly due to extensive infiltrate atelectasis collapse pleural effusion with improved aeration in the right lung base. This is consistent with his lung findings which shows grossly diminished air entry." 05/20/2020 Patient sent out of the ICU yesterday afternoon. Per my discussion with Dr. Chandler, patient has frequent mucous plugging and needs to be lavaged and suctioned by respiratory therapy frequently. It is likely the patient will continue mucous plugging intermittently and may need to be sent back to the ICU at some point. He has been maintained on trach collar with intermittent ventilatory support. Patient was asking for increases in his narcotics and I discussed the risks of respiratory depression if we were to pursue this. We will keep his narcotics at the current dosing and frequency for now. 05/21/2020 Patient had a episode of mucous plugging which resolved with aggressive lavage and suctioning by RT. Patient also had a problem with his NG feeding tube where it was somewhat displaced and nursing replaced this infected follow-up chest x- ray To confirm location. Blood culture on 05/09 remains negative. Latest chest x-ray shows diffuse bilateral disease which could potentially be worse. Patient is calm and resting today and does not have any new complaints. 05/22/2020 Patient appears rather calm today until I entered the room. He then wrote on his marker board and mouthed words to me stating he wants IV narcotics and IV sedatives. I discussed with him that adding these medications could be detrimental to his respiratory status. We will keep his pain medication as it is for now. I believe he is gradually improving as respiratory therapy is doing a great job lavaging and suctioning out large mucous plugs daily. Perhaps if we do enough of this every day, patient will be able to wean from the ventilator and tolerate trach collar alone. 05/23/2020 I had an extensive discussion with the patient today regarding PEG tube placement and he repeatedly stated he wanted to speak to the doctor and I repeatedly told him I am the doctor. I asked him if he would like me to get the surgeon involved to place a PEG tube. He refused to answer me at this point and did not seem interested in any my recommendations. We will ask respiratory therapy if he can get CPT to break up mucous plugs, continue lavaging and suctioning, and continue attempting to wean from the vent. Hemoglobin showed an acute drop down to 6.4 and this was rechecked to reveal 6.9. We will transfuse 1 unit PRBC which may help with his oxygenation as well. Will need to be mindful of the extra volume this will provide and watch for volume overload. Blood cell count is higher while hemoglobin and platelets are lower. Calcium is significantly lower we will replete this both IV and oral. 05/24/2020 Patient is resting comfortably today. He is off IV antibiotics and I have discontinued his IV Benadryl in place of Benadryl capsules that can go through his NG tube. We are still waiting on the patient to decide if he wants a PEG tube to be placed. It is my understanding that he cannot go to an acute care facility for rehab until he has a definitive feeding tube placed and he cannot go to a regular SNF while he is requiring the vent. If the patient wants a PEG tube or if we can wean him from the vent, disposition can move forward. Respiratory therapy will continue to lavage and suction the patient regularly and weaning from the ventilator. I discussed this with nursing. Hemoglobin is higher and potassium is lower today. His chest x-ray looks noticeably improved per my read. 05/25/2020 Patient fully awake and alert today and states repeatedly that he wants a PEG tube placed. He states that his pain after procedures is only well controlled on Dilaudid and I stated I would give him a low-dose of Dilaudid available as needed afterwards. I have consulted general surgery discussed case with Dr. Small who is agreed to consult on the patient. Patient will have his PEG tube placed tomorrow and will be n.p.o. at midnight tonight. Tube feeds will need to be held. We will make sure the patient has adequate pain control afterwards. Case management will need to start aggressively applying the patient for LTAC facilities starting on Wednesday. 05/26/2020 Patient successfully had PEG tube placed. He is having some additional pain I have increased the frequency of his IV Dilaudid. He understands we will begin tapering this tomorrow. Respiratory status is approximately the same as before. He still requiring frequent ventilator support. Latest blood cultures are negative. Plan is for patient to go to [facility] in the next few days if he is accepted. 05/27/2020 Patient states his pain is well controlled and he would like to start transitioning from IV narcotics to oral narcotics in anticipation of going to LTAC. I have switched his Dilaudid to oral I will leave a smaller dose available for breakthrough pain. Patient states he is motivated to perform more aggressive rehab and he knows that this cannot be accomplished inpatient. Patient's breathing is about the same as it was yesterday. Patient still requiring ventilator support. 05/28/20 Patient was seen and examined at bedside. Complains of pain lower abdomen however physical exam not consistent with the amount of pain he is complaining of. He is also requesting for more IV pain medications. He is status post PEG tube placement postop day 1 currently tolerating tube feedings. No significant change on his pulmonary status. 05/29/20 Patient was seen and examined at bedside. No new complains. Asking if he can have clear soup, I told him it would not be advisable now. He is asking for more IV pain medications as usual. 05/30/20 Patient seen and examined. Complaining of anxiety. I have increased his Buspar to 10 BID. Swallow eval for tomorrow. 05/31/20 Patient was seen and examined at bedside. He apparently refused swallow eval that was ordered today. But later when I rounded on him he claimed that did not even come. It has been noted before the he refuses a lot of therapeutic interventions. He is stable otherwise on mechanical ventilation. 06/01/20 Patient was seen and examined at bedside. he is again asking on when he can do a swallow eval. I have told him this will be done on wednesday. He was also asking if he has a medication for his anxiety and again I told him that he has Buspar BID. He should not be started on Xanax or any other benzo. 06/02/20 PAtient was seen and examined at bedside. He was asleep after receiving vistaril for anxiety. I have asked the respiratory therapist to try and wean him off with PSV. however he desaturates so he was put back on SIMV. 06/03/20 Patient was seen and examined at bedside. He still has episodes of anxiety and vistaril seems to have helped. He had just received his dilaudid prior to my visit hence he was very sleepy and did not want to talk much. He failed swallow eval today. 06/04/20 Patient was seen and examined at bedside. No new complains, had PT today. Afebrile. PEG tube feeding on going. 06/11/20 Care resumed today. He is complaining of pain and wanted more pain medications which I refused to give him and then he refused to engage in anymore conversation. He does appear comfortable otherwise. Notes from previous week reviewed. He was transfused with 2 u PRNC due to anemia. Also underwent thoracentesis with removal of 800 ml pleural fluid. 06/12/20 He was seen and examined at bedside. He is still refusing lab work ups and repeat CT chest despite explaining the medial necessity for this. He refuses to engage in any more conversation. 06/13/20 He was seen and examined at bedside. HE is on 40% FIO2 on PRVC. He agreed to have blood drawn today and it showed a Hgb of 8.9 but a WBC count of 23.3. He remains afebrile and VS is stable. He still refuses to engage in any further discussion about his medical care. Per nursing had several episodes of diarrhea, C.diff was sent which was negative. 06/14/20 He was seen and examined at bedside. He appears comfortable in bed. Nurse reported that he refused to have his catheter changed. Also still having diarrhea, C.diff negative. He has refused a rectal tube, he was started on loperamide. He agreed to have his naidu replaced.UA showed large nitrite and leukocyte with >182 WBC. Urine culture pending. Will await culture and treat based on results. 06/15/20 He was seen and examined at bedside. He appears comfortable. He agreed to have a chest CT today which unfortunately showed moderate bilateral pleural effusions with bilateral multifocal pneumonia. I sent for a tracheal aspirate culture.I spoke to the pharmacist and reviewed the abx he had received so far. So far he has received ceftriaxone, cefepime, unasyn, dapto, linezolid, and vanc. Will await urine and tracheal aspirate culture. 06/16/20 Seen and examined at bedside. explained to him CT findings and the need to restart abx. Still awaiting tracheal aspirate result but his UA is growing E.cloacae sensitive to ceftri and I have started him on this. Still awaiting tracheal aspirate culture and sensitivity. Further weaning trail will likely fail due to pleural effusion and pneumonia seen on CT. He was again asking when he can eat food and I told him that his penumonia is likely ventilator and aspiration pneumonia so still not safe for him to eat food by mouth. 06/17/20 HE was seen and examined at bedside. He was very upset because he claims that the nurses were late giving him his pain medications. I have started him on ceftriaxone. He has Enterobacter cloacae growing in his urine staph aureus, sternotrophomonas maltophilia, Enterobacter cloacae growing in his sputum which is also sensitive to ceftriaxone. I explained to him that we would need to repeat chest x-ray as well as blood draws to monitor his response to treatment but he is refusing this again. I have spoken to Kendy from discharge planning regarding his disposition and I was told that they have sent out referrals to [id number] facilities because all the ones here in [place] has refused him. 06/18/2020 Patient transitioned under my care due to shift changes. Patient evaluated by myself on rounds. He is lying in bed with trach in place. His neighbor and friend is present in the room during evaluation. Patient complaints of discomfort in his chest which he relates as persistent for several weeks. EKG obtained, similar to EKG 04/23/2020. Informed the patient that we need to repeat chest x-ray and labs; pt refused again today. Discussed case with nurse, unaware of date of Naidu placement, if > 1 month, plan to change out. Patient has been compliant with medications and q4 blood pressure, but otherwise refusing any further interventions or studies. 06/19/2020 Patient seen on morning rounds. He was resting but awakened easily to his name. I again informed the patient of our need to get follow up tests/images/studies to monitor disease progression. Patient refuses and mouths at me "you pay for the studies then". I continued to explain to the patient that as long as he is in the hospital studies are indicated and I have ordered the studies and we will attempt to obtain studies daily. I again stressed the need for studies to the patient, he again denied. He did allow me to complete a minimal exam. Prior to my leaving the room the patient mouthed aggressively at me, though I was unable to understand what he said. He then waved me out of the room. Discussed with nurse. Pt continues to refuse vitals/labs/studies. Reason For Visit: MUCOUS PLUGGING, ACUTE HYPOXIC RESPIRATORY FAILURE Physical Exam Vital Signs: Temp Pulse Resp BP Pulse Ox 97.7 F 91 20 105/60 100 06/19/20 11:59 06/19/20 18:03 06/19/20 18:03 06/19/20 11:59 06/19/20 18:03 Intake & Output 06/18/20 06/19/20 06/20/20 06:59 06:59 06:59 Intake Total 50 640 3571 Output Total 1250 1125 380 Balance -1200 -485 3191 Weight 75 kg 71.4 kg 71.4 kg Additional comments: General appearance: PRESENT: no acute distress, thin, other - Patient u ncooperative during exam, thus exam limited. Head exam: PRESENT: atraumatic, normocephalic Eye exam: PRESENT: EOMI Mouth exam: PRESENT: moist Neck exam: PRESENT: tracheostomy Respiratory exam: PRESENT: rales, symmetrical, unlabored Cardiovascular exam: PRESENT: RRR, +S1, +S2 GI/Abdominal exam: PRESENT:other - PEG tube in place. Gentrourinary exam: PRESENT: indwelling catheter Neurological exam: PRESENT: alert, awake, oriented to person, oriented to place, oriented to time, oriented to situation Psychiatric exam: PRESENT: agitated Skin exam: PRESENT: dry, intact, warm Results Laboratory Results: 06/13/20 15:47 06/13/20 15:47 04/20/20 04/23/20 04/23/20 09:00 01:55 01:55 Creatine Kinase < 20 L CK-MB (CK-2) 2.20 Troponin I < 0.012 0.082 NT-Pro-B Natriuret Pep 65306 H 04/23/20 04/23/20 04/23/20 05:58 08:22 14:50 Creatine Kinase < 20 L < 20 L CK-MB (CK-2) 2.24 Troponin I 0.066 NT-Pro-B Natriuret Pep 04/23/20 06/09/20 14:50 05:20 Creatine Kinase CK-MB (CK-2) 2.09 Troponin I 0.057 NT-Pro-B Natriuret Pep 16054 H Impressions: PICC Line Insertion 05/07/20 00:00 IMPRESSION: SUCCESSFUL PLACEMENT OF A 5 FR DUAL LUMEN 47 CM PICC IN THE LEFT BRACHIOCEPHALIC VEIN. KUB X-Ray 05/16/20 11:57 IMPRESSION: NG tube as described. Findings as described. Modified Barium Swallow 06/03/20 00:00 IMPRESSION: LARYNGEAL PENETRATION AND ASPIRATION ABOVE. HE WAS PLEASE SEE SPEECH PATHOLOGIST REPORT FOR OTHER FINDINGS AND RECOMMENDATIONS. Thoracentesis Ultrasound 06/08/20 14:12 IMPRESSION: SUCCESSFUL THORACENTESIS USING ULTRASOUND GUIDANCE. Chest X-Ray 06/08/20 19:30 IMPRESSION: Interval increase in opacity overlying the right mid to lower lung zone. Findings are nonspecific. Close attention on follow-up is recommended. CT chest could be considered for further evaluation if clinically indicated. Chest CT 06/15/20 00:00 IMPRESSION: Moderate bilateral pleural effusions with bilateral multifocal pneumonia. Mediastinal lymphadenopathy is probably reactive. Assessment and Plan - Diagnosis (1) Bilateral pneumonia Qualifiers: Pneumonia type: aspiration pneumonia Lung location: lower lobe of lung Is this a current diagnosis for this admission?: Yes Plan: Persistent rales on PE. Denies difficulty breathing. - CT chest 06/15 notable for moderate sized pleural effusion and bilateral pneumonia - Tracheal aspirate 06/15 positive for staph aureus, sternotrophomonas, Enterobacter cloacae similar to his previous sputum cultures - Ceftriaxone started 06/16 as per sensitivity. Patient continues to refuse repeat blood draws and CXR to monitor response to treatment, has refused previously as well. Patient made aware of need for studies to monitor disease progression/appropriate treatment. He expresses understanding and refuses further labs or imaging at this time. (2) Urinary tract infection Qualifiers: Urinary tract infection type: catheter-associated UTI Is this a current diagnosis for this admission?: Yes Plan: Chronic Naidu catheter most recently changed 06/14/20 - UC 06/14 + Enterobacter cloacae. Sensitive to ceftriaxone. - 06/13 WBC 23; has refused labs since. - Remains afebrile -Ceftriaxone started 06/16. (3) Leukocytosis Qualifiers: Leukocytosis type: unspecified Qualified Code(s): D72.829 - Elevated white blood cell count, unspecified Is this a current diagnosis for this admission?: Yes Plan: WBC 13.5> 16.2-> 15.2-> 14.4-> 14.5> 23.3 06/13, has since refused lab draw. - Persistently afebrile with VSS. - Refused to repeat chest x-ray to assess for possible pneumonia. - Blood culture 05/09/2020 without growth in 5 days; refuses repeat BC. - Likely secondary to UTI, as above. - Continue Ceftriaxone as above As above, patient refusing furthering imaging or labs, unfortunately unable to identify or locate origin of infection at this time. Patient understanding of this and continues to refuse labs/imaging. (4) Respiratory failure, [id number] Qualifiers: Respiratory failure complication: hypoxia Qualified Code(s): J96.21 - Acute and chronic respiratory failure with hypoxia Is this a current diagnosis for this admission?: Yes Plan: Improved; maintaining oxygen saturations of 98% on FiO2 75%. - Continues to require vent PRVC setting. - Has a trach and on mechanical ventilation; multiple failed weaning trials. - CXR 06/08 Interval increase in opacity overlying the right middle to lower lung zones - Now s/p thoracentesis 06/08 with ~800 ml removed. - Pleural effusion w/ WBC 367, RBC 88. - LDH 138, Albumin 0.7, Glucose 174. - Cultures no growth. - Repeat CT 06/15 chest moderate bilateral pleural effusion and multifocal pneumonia (Ceftriaxone as above) - Continue with ventilator (5) Chronic pain Qualifiers: Chronic pain type: other chronic pain Qualified Code(s): G89.29 - Other chronic pain Is this a current diagnosis for this admission?: Yes Plan: Continued difficulty with managing patient's opiate dependence, chronic pain, desire for IV route, and hypoxia. - Previous provider notes reviewed - Morphine 10 mg via PEG q4h prn as per pain management recommendations. - This was adjusted to Morphine 7.5mg q3hrs with improvement in pt treatment toward nursing. - Pain management with recommendations to not renegotiate pain medications with the patient to maintain on this current 24-hour morphine dose. (6) Anxiety about health Is this a current diagnosis for this admission?: Yes Plan: As per previous providers on case and nursing patient with frequent anxiety attacks regarding his current state of health. - Continue buspar 10 BID - Utilize vistaril 25m q8prn during acute bouts. - Advised against benzo therapy. (7) Critical illness myopathy Is this a current diagnosis for this admission?: Yes Plan: With history of ICU and prolonged hospital stay - Given 3+ month hx hpspital admission would require extensive rehab - PT/OT/ST consulted - Pt continues to refuse rehab (8) Dysphagia Qualifiers: Dysphagia type: oropharyngeal phase Qualified Code(s): R13.12 - Dysphagia, oropharyngeal phase Is this a current diagnosis for this admission?: Yes Plan: Now with PEG - Most recent swallow eval 06/03/20, failed. - currently receiving feeding via PEG with free water flushes. - Na stable. - Unable to monitor due to lab refusal. (9) Bacteremia due to Enterococcus Is this a current diagnosis for this admission?: Yes Plan: Resolved - 05/07 + BC enterococcus - 05/09 BC without growth > 5 days - Completed Abx course - TTE as recommended by ID pending, pt has refused. (10) MSSA bacteremia Is this a current diagnosis for this admission?: Yes Plan: Resolved, completed abx treatment - BC 05/07 + MSSA - BC 05/09 without growth > 5 days - Patient refusing repeat blood culture. - Patient refusing echocardiogram as recommended by ID. (11) Hyperglycemia due to type 2 diabetes mellitus Qualifiers: Diabetes mellitus chcf insulin use: with chcf use Qualified Code(s): E11.65 - Type 2 diabetes mellitus with hyperglycemia; Z79.4 - continuous churn buttermaker (current) use of insulin Is this a current diagnosis for this admission?: Yes Plan: POC glucose 130 today. - On insulin - Hypoglycemic protocol in place (12) Acute kidney injury superimposed on chronic kidney disease Is this a current diagnosis for this admission?: Yes Plan: Resolved. - BUN/Creatinine 28/0.94 as per most recent labs 06/13 - Since refusing labs (13) Acute metabolic encephalopathy Is this a current diagnosis for this admission?: Yes Plan: Resolved. (14) Debility Is this a current diagnosis for this admission?: Yes Plan: PT/OT/ST consulted though repeatedly refusing - Needs LTAC placement (15) Dependent on ventilator Is this a current diagnosis for this admission?: Yes Plan: O2 saturation 98% with FiO2 75. -Slowly wean this tolerated. -Rose Mary will faily secondary to bilateral pleural portion of multifocal pneumonia. - Discharge planning sending out referrals to [id number] facilities to take him; denies by all instate facilities (16) COVID-19 Is this a current diagnosis for this admission?: Yes Plan: -resolved but patient has suffered significant comorbidity from it - no indication to retest - continue vent support. Wean as tolerated - Time Time Spent with patient: Less than 15 minutes Medications reviewed and adjusted accordingly: Yes Anticipated Discharge Disposition: [facility] Anticipated Discharge Timeframe: NA
[2020-06-20] MEDS: INSULIN REG, HUMAN 100 UNIT/ML 3 ML VIAL (PYX) SUBCUT SCH ×4 (00:51→17:40)
[2020-06-20] MEDS: MORPHINE SULFATE 10 MG/5 ML ORAL SOLUTION UDCUP PO PRN ×4 (01:51→21:45)
[2020-06-20] MEDS: ONDANSETRON HCL INJ/PF 4 MG/2 ML SDV IV PRN (06:03)
[2020-06-20] MEDS: ACETYLCYSTEINE 20% SOLN 800 MG/4 ML VIAL.NEB NEB SCH ×3 (09:27→20:48)
[2020-06-20] MEDS: IPRATROPIUM/ALBUTEROL 0.5-2.5 MG/3 ML AMPUL NEB PRN ×2 (09:30→20:48)
[2020-06-20] MEDS: LOPERAMIDE HCL 2 MG CAPSULE PO SCH ×2 (09:31→17:40)
[2020-06-20] MEDS: BUSPIRONE HCL 10 MG TABLET PEG SCH ×2 (09:31→17:40)
[2020-06-20] MEDS: CALCIUM CARBONATE 500 MG TAB.CHEW PEG SCH ×2 (09:32→17:40)
[2020-06-20] MEDS: FUROSEMIDE ORAL SOLN 40 MG/5 ML UDCUP PEG SCH (09:33)
[2020-06-20] MEDS: NORMAL SALINE 10 ML SDV (SCHEDULED) IV SCH ×2 (09:46→21:46)
[2020-06-20] MEDS: SCOPOLAMINE HYDROBROMIDE 1.5 MG PATCH.TD72 TD SCH (12:07)
[2020-06-20] MEDS: HYDROXYZINE HCL INJ 50 MG/1 ML VIAL IM PRN (15:07)
--- NOTE | 2020-06-20 17:02 | PDOC PROGRESS REPORT ---
Subjective Date:: 06/20/20 Subjective:: Per admitting physician: "FREDDIE LAZO JR is a 60 year old male, past medical history of type 2 diabetes hypertension CHF narcotic dependence CKD who was recently discharged from [facility] April 19, 2020 after being admitted for 89 days secondary to acute respiratory failure from COVID pneumonia. He was discharged with a tracheostomy tube uncuffed. Before discharge he has been able to speak and eat and the plan was to eventually remove the tracheostomy at [facility]. Sent back to the emergency room for evaluation of shortness of breath. EMS was called by the facility because the patient was diaphoretic with a blood glucose of 30 staff administered 1 mg glucagon in a tube and a half of oral glucose prior to EMS arrival and recheck of blood glucose was 40. Upon EMS arrival patient was pale with diminished breath sounds so he was placed on 15 L O2 via nonrebreather O2 sats went up to 86% and blood glucose was 147 upon ED arrival. In the emergency room he apparently continued to be hypoxic hence a trach cuff was placed and he was put back on mechanical ventilation briefly. He was also noted to be hypotensive hence central line was placed by Dr. Jean-Baptiste. Patient was given IV fluids. Repeat chest x-ray showed improvement of his diffuse bibasilar opacities compared from previous chest x-ray. Dr. Chandler evaluated him in the ED who felt that he does not need ICU admission. He was given 4 L of IV fluids. He was eventually transitioned to tracheal collar and was maintaining his O2 saturation to 95%. Patient was then admitted for further management. WBC count 19.5 in the ED he was given 1 dose of aztreonam and vancomycin." Per Previous Physician: "05/14/2020 MUCOUS PLUGGING, ACUTE HYPOXIC RESPIRATORY FAILURE Patient was seen early on in rounds this morning. At the time patient was noted to sound congested. He however had been suctioned and apparently no further suctioning required at that time. I discussed with the patient the need to be able to give him medications either through an NG tube or PEG tube IV fluids or TPN or combination of all these however patient refused. Patient was new to me today and after discussing with the nurse I did find out that he had been refusing multiple modalities of treatment and management. About 30 minutes after saw this patient when he was still relatively stable a rapid response was called and apparently he went into respiratory distress. He was found to be hypoxic. By the time he got there he was cyanotic. His oxygen saturation was in the 60s also. He was 100% oxygen and his BiPAP setting was changed. Multiple attempts to oxygenate him failed. It was felt that patient will be better served in the intensive care unit. Mold Technician was informed and Came to assess patient. Patient was transferred to the unit. Please see Dr. Hernández's notes for further details chest x-ray obtained reveals diffuse opacification in the left chest possibly due to extensive infiltrate atelectasis collapse pleural effusion with improved aeration in the right lung base. This is consistent with his lung findings which shows grossly diminished air entry." 05/20/2020 Patient sent out of the ICU yesterday afternoon. Per my discussion with Dr. Chandler, patient has frequent mucous plugging and needs to be lavaged and suctioned by respiratory therapy frequently. It is likely the patient will continue mucous plugging intermittently and may need to be sent back to the ICU at some point. He has been maintained on trach collar with intermittent ventilatory support. Patient was asking for increases in his narcotics and I discussed the risks of respiratory depression if we were to pursue this. We will keep his narcotics at the current dosing and frequency for now. 05/21/2020 Patient had a episode of mucous plugging which resolved with aggressive lavage and suctioning by RT. Patient also had a problem with his NG feeding tube where it was somewhat displaced and nursing replaced this infected follow-up chest x- ray To confirm location. Blood culture on 05/09 remains negative. Latest chest x-ray shows diffuse bilateral disease which could potentially be worse. Patient is calm and resting today and does not have any new complaints. 05/22/2020 Patient appears rather calm today until I entered the room. He then wrote on his marker board and mouthed words to me stating he wants IV narcotics and IV sedatives. I discussed with him that adding these medications could be detrimental to his respiratory status. We will keep his pain medication as it is for now. I believe he is gradually improving as respiratory therapy is doing a great job lavaging and suctioning out large mucous plugs daily. Perhaps if we do enough of this every day, patient will be able to wean from the ventilator and tolerate trach collar alone. 05/23/2020 I had an extensive discussion with the patient today regarding PEG tube placement and he repeatedly stated he wanted to speak to the doctor and I repeatedly told him I am the doctor. I asked him if he would like me to get the surgeon involved to place a PEG tube. He refused to answer me at this point and did not seem interested in any my recommendations. We will ask respiratory therapy if he can get CPT to break up mucous plugs, continue lavaging and suctioning, and continue attempting to wean from the vent. Hemoglobin showed an acute drop down to 6.4 and this was rechecked to reveal 6.9. We will transfuse 1 unit PRBC which may help with his oxygenation as well. Will need to be mindful of the extra volume this will provide and watch for volume overload. Blood cell count is higher while hemoglobin and platelets are lower. Calcium is significantly lower we will replete this both IV and oral. 05/24/2020 Patient is resting comfortably today. He is off IV antibiotics and I have discontinued his IV Benadryl in place of Benadryl capsules that can go through his NG tube. We are still waiting on the patient to decide if he wants a PEG tube to be placed. It is my understanding that he cannot go to an acute care facility for rehab until he has a definitive feeding tube placed and he cannot go to a regular SNF while he is requiring the vent. If the patient wants a PEG tube or if we can wean him from the vent, disposition can move forward. Respiratory therapy will continue to lavage and suction the patient regularly and weaning from the ventilator. I discussed this with nursing. Hemoglobin is higher and potassium is lower today. His chest x-ray looks noticeably improved per my read. 05/25/2020 Patient fully awake and alert today and states repeatedly that he wants a PEG tube placed. He states that his pain after procedures is only well controlled on Dilaudid and I stated I would give him a low-dose of Dilaudid available as needed afterwards. I have consulted general surgery discussed case with Dr. Small who is agreed to consult on the patient. Patient will have his PEG tube placed tomorrow and will be n.p.o. at midnight tonight. Tube feeds will need to be held. We will make sure the patient has adequate pain control afterwards. Case management will need to start aggressively applying the patient for LTAC facilities starting on Wednesday. 05/26/2020 Patient successfully had PEG tube placed. He is having some additional pain I have increased the frequency of his IV Dilaudid. He understands we will begin tapering this tomorrow. Respiratory status is approximately the same as before. He still requiring frequent ventilator support. Latest blood cultures are negative. Plan is for patient to go to [facility] in the next few days if he is accepted. 05/27/2020 Patient states his pain is well controlled and he would like to start transitioning from IV narcotics to oral narcotics in anticipation of going to LTAC. I have switched his Dilaudid to oral I will leave a smaller dose available for breakthrough pain. Patient states he is motivated to perform more aggressive rehab and he knows that this cannot be accomplished inpatient. Patient's breathing is about the same as it was yesterday. Patient still requiring ventilator support. 05/28/20 Patient was seen and examined at bedside. Complains of pain lower abdomen however physical exam not consistent with the amount of pain he is complaining of. He is also requesting for more IV pain medications. He is status post PEG tube placement postop day 1 currently tolerating tube feedings. No significant change on his pulmonary status. 05/29/20 Patient was seen and examined at bedside. No new complains. Asking if he can have clear soup, I told him it would not be advisable now. He is asking for more IV pain medications as usual. 05/30/20 Patient seen and examined. Complaining of anxiety. I have increased his Buspar to 10 BID. Swallow eval for tomorrow. 05/31/20 Patient was seen and examined at bedside. He apparently refused swallow eval that was ordered today. But later when I rounded on him he claimed that did not even come. It has been noted before the he refuses a lot of therapeutic interventions. He is stable otherwise on mechanical ventilation. 06/01/20 Patient was seen and examined at bedside. he is again asking on when he can do a swallow eval. I have told him this will be done on wednesday. He was also asking if he has a medication for his anxiety and again I told him that he has Buspar BID. He should not be started on Xanax or any other benzo. 06/02/20 PAtient was seen and examined at bedside. He was asleep after receiving vistaril for anxiety. I have asked the respiratory therapist to try and wean him off with PSV. however he desaturates so he was put back on SIMV. 06/03/20 Patient was seen and examined at bedside. He still has episodes of anxiety and vistaril seems to have helped. He had just received his dilaudid prior to my visit hence he was very sleepy and did not want to talk much. He failed swallow eval today. 06/04/20 Patient was seen and examined at bedside. No new complains, had PT today. Afebrile. PEG tube feeding on going. 06/11/20 Care resumed today. He is complaining of pain and wanted more pain medications which I refused to give him and then he refused to engage in anymore conversation. He does appear comfortable otherwise. Notes from previous week reviewed. He was transfused with 2 u PRNC due to anemia. Also underwent thoracentesis with removal of 800 ml pleural fluid. 06/12/20 He was seen and examined at bedside. He is still refusing lab work ups and repeat CT chest despite explaining the medial necessity for this. He refuses to engage in any more conversation. 06/13/20 He was seen and examined at bedside. HE is on 40% FIO2 on PRVC. He agreed to have blood drawn today and it showed a Hgb of 8.9 but a WBC count of 23.3. He remains afebrile and VS is stable. He still refuses to engage in any further discussion about his medical care. Per nursing had several episodes of diarrhea, C.diff was sent which was negative. 06/14/20 He was seen and examined at bedside. He appears comfortable in bed. Nurse reported that he refused to have his catheter changed. Also still having diarrhea, C.diff negative. He has refused a rectal tube, he was started on loperamide. He agreed to have his naidu replaced.UA showed large nitrite and leukocyte with >182 WBC. Urine culture pending. Will await culture and treat based on results. 06/15/20 He was seen and examined at bedside. He appears comfortable. He agreed to have a chest CT today which unfortunately showed moderate bilateral pleural effusions with bilateral multifocal pneumonia. I sent for a tracheal aspirate culture.I spoke to the pharmacist and reviewed the abx he had received so far. So far he has received ceftriaxone, cefepime, unasyn, dapto, linezolid, and vanc. Will await urine and tracheal aspirate culture. 06/16/20 Seen and examined at bedside. explained to him CT findings and the need to restart abx. Still awaiting tracheal aspirate result but his UA is growing E.cloacae sensitive to ceftri and I have started him on this. Still awaiting tracheal aspirate culture and sensitivity. Further weaning trail will likely fail due to pleural effusion and pneumonia seen on CT. He was again asking when he can eat food and I told him that his penumonia is likely ventilator and aspiration pneumonia so still not safe for him to eat food by mouth. 06/17/20 HE was seen and examined at bedside. He was very upset because he claims that the nurses were late giving him his pain medications. I have started him on ceftriaxone. He has Enterobacter cloacae growing in his urine staph aureus, sternotrophomonas maltophilia, Enterobacter cloacae growing in his sputum which is also sensitive to ceftriaxone. I explained to him that we would need to repeat chest x-ray as well as blood draws to monitor his response to treatment but he is refusing this again. I have spoken to Kendy from discharge planning regarding his disposition and I was told that they have sent out referrals to [id number] facilities because all the ones here in [place] has refused him. 06/18/2020 Patient transitioned under my care due to shift changes. Patient evaluated by myself on rounds. He is lying in bed with trach in place. His neighbor and friend is present in the room during evaluation. Patient complaints of discomfort in his chest which he relates as persistent for several weeks. EKG obtained, similar to EKG 04/23/2020. Informed the patient that we need to repeat chest x-ray and labs; pt refused again today. Discussed case with nurse, unaware of date of Naidu placement, if > 1 month, plan to change out. Patient has been compliant with medications and q4 blood pressure, but otherwise refusing any further interventions or studies. 06/19/2020 Patient seen on morning rounds. He was resting but awakened easily to his name. I again informed the patient of our need to get follow up tests/images/studies to monitor disease progression. Patient refuses and mouths at me "you pay for the studies then". I continued to explain to the patient that as long as he is in the hospital studies are indicated and I have ordered the studies and we will attempt to obtain studies daily. I again stressed the need for studies to the patient, he again denied. He did allow me to complete a minimal exam. Prior to my leaving the room the patient mouthed aggressively at me, though I was unable to understand what he said. He then waved me out of the room. Discussed with nurse. Pt continues to refuse vitals/labs/studies. 06/20/2020 Patient seen on morning rounds. I was contacted earlier in the morning by the nurse that the patient had episodes of emesis. Tube feeds were stopped last night due to nausea and emesis. Nausea was being treated with Zofran with m inimal relief. I went to the room to talk to the patient states 2-week history of nausea with recent onset emesis yesterday and last night. Patient has continually refused labs, imaging, and vital signs. I requested that I be able to obtain studies to help properly treat patient nausea and other diseases. Patient refused and demanded pain medication. I again requested that we be able to get studies specifically regarding onset nausea and vomiting, patient refused and asked that I leave the room. He did not allow me to complete physical exam today, thus physical exam limited. Following discussion with patient patient's nurse approached me and me that patient is now refusing tube feeds at this time. Continue to monitor his glucose if he is allowing it and vital signs as well. Reason For Visit: MUCOUS PLUGGING, ACUTE HYPOXIC RESPIRATORY FAILURE Physical Exam Vital Signs: Temp Pulse Resp BP Pulse Ox 97.7 F 96 14 103/61 100 06/20/20 10:00 06/20/20 14:00 06/20/20 09:30 06/20/20 11:41 06/20/20 13:24 Intake & Output 06/19/20 06/20/20 06/21/20 06:59 06:59 06:59 Intake Total 640 3571 0 Output Total 1125 680 Balance -485 2891 0 Weight 71.4 kg 73.2 kg Additional comments: General appearance: PRESENT: no acute distress, thin, other - Patient uncooperative during exam, thus exam limited. Head exam: PRESENT: atraumatic, normocephalic Eye exam: PRESENT: EOMI Mouth exam: PRESENT: Dry Neck exam: PRESENT: tracheostomy GI/Abdominal exam: PRESENT:other - PEG tube in place. Gentrourinary exam: PRESENT: indwelling catheter Neurological exam: PRESENT: alert, awake, oriented to person, oriented to place, oriented to time, oriented to situation Psychiatric exam: PRESENT: agitated Results Laboratory Results: 06/13/20 15:47 06/13/20 15:47 04/20/20 04/23/20 04/23/20 09:00 01:55 01:55 Creatine Kinase < 20 L CK-MB (CK-2) 2.20 Troponin I < 0.012 0.082 NT-Pro-B Natriuret Pep [id number] H 04/23/20 04/23/20 04/23/20 05:58 08:22 14:50 Creatine Kinase < 20 L < 20 L CK-MB (CK-2) 2.24 Troponin I 0.066 NT-Pro-B Natriuret Pep 04/23/20 06/09/20 14:50 05:20 Creatine Kinase CK-MB (CK-2) 2.09 Troponin I 0.057 NT-Pro-B Natriuret Pep [id number] H Impressions: PICC Line Insertion 05/07/20 00:00 IMPRESSION: SUCCESSFUL PLACEMENT OF A 5 FR DUAL LUMEN 47 CM PICC IN THE LEFT BRACHIOCEPHALIC VEIN. KUB X-Ray 05/16/20 11:57 IMPRESSION: NG tube as described. Findings as described. Modified Barium Swallow 06/03/20 00:00 IMPRESSION: LARYNGEAL PENETRATION AND ASPIRATION ABOVE. HE WAS PLEASE SEE SPEECH PATHOLOGIST REPORT FOR OTHER FINDINGS AND RECOMMENDATIONS. Thoracentesis Ultrasound 06/08/20 14:12 IMPRESSION: SUCCESSFUL THORACENTESIS USING ULTRASOUND GUIDANCE. Chest X-Ray 06/08/20 19:30 IMPRESSION: Interval increase in opacity overlying the right mid to lower lung zone. Findings are nonspecific. Close attention on follow-up is recommended. CT chest could be considered for further evaluation if clinically indicated. Chest CT 06/15/20 00:00 IMPRESSION: Moderate bilateral pleural effusions with bilateral multifocal pneumonia. Mediastinal lymphadenopathy is probably reactive. Assessment and Plan - Diagnosis (1) Bilateral pneumonia Qualifiers: Pneumonia type: aspiration pneumonia Lung location: lower lobe of lung Is this a current diagnosis for this admission?: Yes Plan: Persistent rales on PE. Denies difficulty breathing. - CT chest 06/15 notable for moderate sized pleural effusion and bilateral pneumonia - Tracheal aspirate 06/15 positive for staph aureus, sternotrophomonas, Enterobacter cloacae similar to his previous sputum cultures - Ceftriaxone started 06/16 as per sensitivity. Patient continues to refuse repeat blood draws and CXR to monitor response to treatment, has refused previously as well. Patient made aware of need for studies to monitor disease progression/appropriate treatment. He expresses understanding and refuses further labs or imaging at this time. (2) Urinary tract infection Qualifiers: Urinary tract infection type: catheter-associated UTI Is this a current diagnosis for this admission?: Yes Plan: Chronic Naidu catheter most recently changed 06/14/20 - UC 06/14 + Enterobacter cloacae. Sensitive to ceftriaxone. - 06/13 WBC 23; has refused labs since. - Remains afebrile -Ceftriaxone started 06/16. (3) Leukocytosis Qualifiers: Leukocytosis type: unspecified Qualified Code(s): D72.829 - Elevated white blood cell count, unspecified Is this a current diagnosis for this admission?: Yes Plan: WBC 13.5> 16.2-> 15.2-> 14.4-> 14.5> 23.3 06/13, has since refused lab draw. - Persistently afebrile with VSS. - Refused to repeat chest x-ray to assess for possible pneumonia. - Blood culture 05/09/2020 without growth in 5 days; refuses repeat BC. - Likely secondary to UTI, as above. - Continue Ceftriaxone as above As above, patient refusing furthering imaging or labs, unfortunately unable to identify or locate origin of infection at this time. Patient understanding of this and continues to refuse labs/imaging. (4) Respiratory failure, [id number] Qualifiers: Respiratory failure complication: hypoxia Qualified Code(s): J96.21 - Acute and chronic respiratory failure with hypoxia Is this a current diagnosis for this admission?: Yes Plan: Improved; maintaining oxygen saturations of 98% on FiO2 75%. - Continues to require vent PRVC setting. - Has a trach and on mechanical ventilation; multiple failed weaning trials. - CXR 06/08 Interval increase in opacity overlying the right middle to lower lung zones - Now s/p thoracentesis 06/08 with ~800 ml removed. - Pleural effusion w/ WBC 367, RBC 88. - LDH 138, Albumin 0.7, Glucose 174. - Cultures no growth. - Repeat CT 06/15 chest moderate bilateral pleural effusion and multifocal pneumonia (Ceftriaxone as above) - Continue with ventilator (5) Chronic pain Qualifiers: Chronic pain type: other chronic pain Qualified Code(s): G89.29 - Other chronic pain Is this a current diagnosis for this admission?: Yes Plan: Continued difficulty with managing patient's opiate dependence, chronic pain, desire for IV route, and hypoxia. - Previous provider notes reviewed - Morphine 10 mg via PEG q4h prn as per pain management recommendations. - This was adjusted to Morphine 7.5mg q3hrs with improvement in pt treatment toward nursing. - Pain management with recommendations to not renegotiate pain medications with the patient to maintain on this current 24-hour morphine dose. (6) Anxiety about health Is this a current diagnosis for this admission?: Yes Plan: As per previous providers on case and nursing patient with frequent anxiety attacks regarding his current state of health. - Continue buspar 10 BID - Utilize vistaril 25m q8prn during acute bouts. - Advised against benzo therapy. (7) Critical illness myopathy Is this a current diagnosis for this admission?: Yes Plan: With history of ICU and prolonged hospital stay - Given 3+ month hx hpspital admission would require extensive rehab - PT/OT/ST consulted - Pt continues to refuse rehab (8) Dysphagia Qualifiers: Dysphagia type: oropharyngeal phase Qualified Code(s): R13.12 - Dysphagia, oropharyngeal phase Is this a current diagnosis for this admission?: Yes Plan: Now with PEG - Most recent swallow eval 06/03/20, failed. - currently receiving feeding via PEG with free water flushes. - Na stable. - Unable to monitor due to lab refusal. (9) Bacteremia due to Enterococcus Is this a current diagnosis for this admission?: Yes Plan: Resolved - 05/07 + BC enterococcus - 05/09 BC without growth > 5 days - Completed Abx course - TTE as recommended by ID pending, pt has refused. (10) MSSA bacteremia Is this a current diagnosis for this admission?: Yes Plan: Resolved, completed abx treatment - BC 05/07 + MSSA - BC 05/09 without growth > 5 days - Patient refusing repeat blood culture. - Patient refusing echocardiogram as recommended by ID. (11) Hyperglycemia due to type 2 diabetes mellitus Qualifiers: Diabetes mellitus manager terminal insulin use: with retirement use Qualified Code(s): E11.65 - Type 2 diabetes mellitus with hyperglycemia; Z79.4 - care home (current) use of insulin Is this a current diagnosis for this admission?: Yes Plan: POC glucose 130 today. - On insulin - Hypoglycemic protocol in place (12) Acute kidney injury superimposed on chronic kidney disease Is this a current diagnosis for this admission?: Yes Plan: Resolved. - BUN/Creatinine 28/0.94 as per most recent labs 06/13 - Since refusing labs (13) Acute metabolic encephalopathy Is this a current diagnosis for this admission?: Yes Plan: Resolved. (14) Debility Is this a current diagnosis for this admission?: Yes Plan: PT/OT/ST consulted though repeatedly refusing - Needs LTAC placement (15) Dependent on ventilator Is this a current diagnosis for this admission?: Yes Plan: O2 saturation 98% with FiO2 75. -Slowly wean this tolerated. -Rose Mary will faily secondary to bilateral pleural portion of multifocal pneumonia. - Discharge planning sending out referrals to [id number] facilities to take him; denies by all instate facilities (16) COVID-19 Is this a current diagnosis for this admission?: Yes Plan: -resolved but patient has suffered significant comorbidity from it - no indication to retest - continue vent support. Wean as tolerated (17) Nausea and vomiting Qualifiers: Vomiting type: unspecified Vomiting Intractability: non-intractable Qualified Code(s): R11.2 - Nausea with vomiting, unspecified Is this a current diagnosis for this admission?: Yes Plan: 2-week history nausea with multiple episodes of emesis over past 24 hours. - Treat with zofran - Patient demanding pain medications and refusing any labs/studies - Plan Summary Summary: Patient with history refusing medical studies and treatment. Continues to refuse treatment and evaluation. Difficult to truly care for and manage patient due to his non-compliance and refusal of care. - Time Time Spent with patient: Less than 15 minutes Anticipated Discharge Disposition: [facility] Anticipated Discharge Timeframe: na
[2020-06-20] MEDS: CEFTRIAXONE 1 GM/D5W RTU 1 GM/50 ML RTUPB IV SCH (17:40)
[2020-06-21] MEDS: INSULIN REG, HUMAN 100 UNIT/ML 3 ML VIAL (PYX) SUBCUT SCH ×4 (01:53→17:53)
[2020-06-21] MEDS: HYDROXYZINE HCL INJ 50 MG/1 ML VIAL IM PRN (05:48)
[2020-06-21] MEDS: DIPHENHYDRAMINE HCL 50 MG/ML VIAL IV PRN (05:49)
[2020-06-21] MEDS: MORPHINE SULFATE 10 MG/5 ML ORAL SOLUTION UDCUP PO PRN ×2 (05:49→13:02)
[2020-06-21] MEDS: ONDANSETRON HCL INJ/PF 4 MG/2 ML SDV IV PRN ×2 (06:08→11:12)
[2020-06-21] MEDS: IPRATROPIUM/ALBUTEROL 0.5-2.5 MG/3 ML AMPUL NEB PRN ×3 (06:35→20:56)
[2020-06-21] MEDS: ACETYLCYSTEINE 20% SOLN 800 MG/4 ML VIAL.NEB NEB SCH ×2 (08:48→20:56)
[2020-06-21] MEDS: FUROSEMIDE ORAL SOLN 40 MG/5 ML UDCUP PEG SCH (09:24)
[2020-06-21] MEDS: NORMAL SALINE 10 ML SDV (SCHEDULED) IV SCH ×2 (09:25→22:07)
[2020-06-21] MEDS: LOPERAMIDE HCL 2 MG CAPSULE PO SCH ×2 (09:25→17:52)
[2020-06-21] MEDS: BUSPIRONE HCL 10 MG TABLET PEG SCH ×2 (09:25→17:52)
[2020-06-21] MEDS: CALCIUM CARBONATE 500 MG TAB.CHEW PEG SCH ×2 (09:25→17:52)
[2020-06-21] MEDS: CEFTRIAXONE 1 GM/D5W RTU 1 GM/50 ML RTUPB IV SCH (17:52)
--- NOTE | 2020-06-21 19:17 | PDOC PROGRESS REPORT ---
Subjective Date:: 06/21/20 Subjective:: Per admitting physician: "FREDDIE LAZO JR is a 60 year old male, past medical history of type 2 diabetes hypertension CHF narcotic dependence CKD who was recently discharged from [facility] April 19, 2020 after being admitted for 89 days secondary to acute respiratory failure from COVID pneumonia. He was discharged with a tracheostomy tube uncuffed. Before discharge he has been able to speak and eat and the plan was to eventually remove the tracheostomy at [facility]. Sent back to the emergency room for evaluation of shortness of breath. EMS was called by the facility because the patient was diaphoretic with a blood glucose of 30 staff administered 1 mg glucagon in a tube and a half of oral glucose prior to EMS arrival and recheck of blood glucose was 40. Upon EMS arrival patient was pale with diminished breath sounds so he was placed on 15 L O2 via nonrebreather O2 sats went up to 86% and blood glucose was 147 upon ED arrival. In the emergency room he apparently continued to be hypoxic hence a trach cuff was placed and he was put back on mechanical ventilation briefly. He was also noted to be hypotensive hence central line was placed by Dr. Jean-Baptiste. Patient was given IV fluids. Repeat chest x-ray showed improvement of his diffuse bibasilar opacities compared from previous chest x-ray. Dr. Chandler evaluated him in the ED who felt that he does not need ICU admission. He was given 4 L of IV fluids. He was eventually transitioned to tracheal collar and was maintaining his O2 saturation to 95%. Patient was then admitted for further management. WBC count 19.5 in the ED he was given 1 dose of aztreonam and vancomycin." Per Previous Physician: "05/14/2020 MUCOUS PLUGGING, ACUTE HYPOXIC RESPIRATORY FAILURE Patient was seen early on in rounds this morning. At the time patient was noted to sound congested. He however had been suctioned and apparently no further suctioning required at that time. I discussed with the patient the need to be able to give him medications either through an NG tube or PEG tube IV fluids or TPN or combination of all these however patient refused. Patient was new to me today and after discussing with the nurse I did find out that he had been refusing multiple modalities of treatment and management. About 30 minutes after saw this patient when he was still relatively stable a rapid response was called and apparently he went into respiratory distress. He was found to be hypoxic. By the time he got there he was cyanotic. His oxygen saturation was in the 60s also. He was 100% oxygen and his BiPAP setting was changed. Multiple attempts to oxygenate him failed. It was felt that patient will be better served in the intensive care unit. Clinical Physician Assistant was informed and Came to assess patient. Patient was transferred to the unit. Please see Dr. Hernández's notes for further details chest x-ray obtained reveals diffuse opacification in the left chest possibly due to extensive infiltrate atelectasis collapse pleural effusion with improved aeration in the right lung base. This is consistent with his lung findings which shows grossly diminished air entry." 05/20/2020 Patient sent out of the ICU yesterday afternoon. Per my discussion with Dr. Chandler, patient has frequent mucous plugging and needs to be lavaged and suctioned by respiratory therapy frequently. It is likely the patient will continue mucous plugging intermittently and may need to be sent back to the ICU at some point. He has been maintained on trach collar with intermittent ventilatory support. Patient was asking for increases in his narcotics and I discussed the risks of respiratory depression if we were to pursue this. We will keep his narcotics at the current dosing and frequency for now. 05/21/2020 Patient had a episode of mucous plugging which resolved with aggressive lavage and suctioning by RT. Patient also had a problem with his NG feeding tube where it was somewhat displaced and nursing replaced this infected follow-up chest x- ray To confirm location. Blood culture on 05/09 remains negative. Latest chest x-ray shows diffuse bilateral disease which could potentially be worse. Patient is calm and resting today and does not have any new complaints. 05/22/2020 Patient appears rather calm today until I entered the room. He then wrote on his marker board and mouthed words to me stating he wants IV narcotics and IV sedatives. I discussed with him that adding these medications could be detrimental to his respiratory status. We will keep his pain medication as it is for now. I believe he is gradually improving as respiratory therapy is doing a great job lavaging and suctioning out large mucous plugs daily. Perhaps if we do enough of this every day, patient will be able to wean from the ventilator and tolerate trach collar alone. 05/23/2020 I had an extensive discussion with the patient today regarding PEG tube placement and he repeatedly stated he wanted to speak to the doctor and I repeatedly told him I am the doctor. I asked him if he would like me to get the surgeon involved to place a PEG tube. He refused to answer me at this point and did not seem interested in any my recommendations. We will ask respiratory therapy if he can get CPT to break up mucous plugs, continue lavaging and suctioning, and continue attempting to wean from the vent. Hemoglobin showed an acute drop down to 6.4 and this was rechecked to reveal 6.9. We will transfuse 1 unit PRBC which may help with his oxygenation as well. Will need to be mindful of the extra volume this will provide and watch for volume overload. Blood cell count is higher while hemoglobin and platelets are lower. Calcium is significantly lower we will replete this both IV and oral. 05/24/2020 Patient is resting comfortably today. He is off IV antibiotics and I have discontinued his IV Benadryl in place of Benadryl capsules that can go through his NG tube. We are still waiting on the patient to decide if he wants a PEG tube to be placed. It is my understanding that he cannot go to an acute care facility for rehab until he has a definitive feeding tube placed and he cannot go to a regular SNF while he is requiring the vent. If the patient wants a PEG tube or if we can wean him from the vent, disposition can move forward. Respiratory therapy will continue to lavage and suction the patient regularly and weaning from the ventilator. I discussed this with nursing. Hemoglobin is higher and potassium is lower today. His chest x-ray looks noticeably improved per my read. 05/25/2020 Patient fully awake and alert today and states repeatedly that he wants a PEG tube placed. He states that his pain after procedures is only well controlled on Dilaudid and I stated I would give him a low-dose of Dilaudid available as needed afterwards. I have consulted general surgery discussed case with Dr. Small who is agreed to consult on the patient. Patient will have his PEG tube placed tomorrow and will be n.p.o. at midnight tonight. Tube feeds will need to be held. We will make sure the patient has adequate pain control afterwards. Case management will need to start aggressively applying the patient for LTAC facilities starting on Wednesday. 05/26/2020 Patient successfully had PEG tube placed. He is having some additional pain I have increased the frequency of his IV Dilaudid. He understands we will begin tapering this tomorrow. Respiratory status is approximately the same as before. He still requiring frequent ventilator support. Latest blood cultures are negative. Plan is for patient to go to [facility] in the next few days if he is accepted. 05/27/2020 Patient states his pain is well controlled and he would like to start transitioning from IV narcotics to oral narcotics in anticipation of going to LTAC. I have switched his Dilaudid to oral I will leave a smaller dose available for breakthrough pain. Patient states he is motivated to perform more aggressive rehab and he knows that this cannot be accomplished inpatient. Patient's breathing is about the same as it was yesterday. Patient still requiring ventilator support. 05/28/20 Patient was seen and examined at bedside. Complains of pain lower abdomen however physical exam not consistent with the amount of pain he is complaining of. He is also requesting for more IV pain medications. He is status post PEG tube placement postop day 1 currently tolerating tube feedings. No significant change on his pulmonary status. 05/29/20 Patient was seen and examined at bedside. No new complains. Asking if he can have clear soup, I told him it would not be advisable now. He is asking for more IV pain medications as usual. 05/30/20 Patient seen and examined. Complaining of anxiety. I have increased his Buspar to 10 BID. Swallow eval for tomorrow. 05/31/20 Patient was seen and examined at bedside. He apparently refused swallow eval that was ordered today. But later when I rounded on him he claimed that did not even come. It has been noted before the he refuses a lot of therapeutic interventions. He is stable otherwise on mechanical ventilation. 06/01/20 Patient was seen and examined at bedside. he is again asking on when he can do a swallow eval. I have told him this will be done on wednesday. He was also asking if he has a medication for his anxiety and again I told him that he has Buspar BID. He should not be started on Xanax or any other benzo. 06/02/20 PAtient was seen and examined at bedside. He was asleep after receiving vistaril for anxiety. I have asked the respiratory therapist to try and wean him off with PSV. however he desaturates so he was put back on SIMV. 06/03/20 Patient was seen and examined at bedside. He still has episodes of anxiety and vistaril seems to have helped. He had just received his dilaudid prior to my visit hence he was very sleepy and did not want to talk much. He failed swallow eval today. 06/04/20 Patient was seen and examined at bedside. No new complains, had PT today. Afebrile. PEG tube feeding on going. 06/11/20 Care resumed today. He is complaining of pain and wanted more pain medications which I refused to give him and then he refused to engage in anymore conversation. He does appear comfortable otherwise. Notes from previous week reviewed. He was transfused with 2 u PRNC due to anemia. Also underwent thoracentesis with removal of 800 ml pleural fluid. 06/12/20 He was seen and examined at bedside. He is still refusing lab work ups and repeat CT chest despite explaining the medial necessity for this. He refuses to engage in any more conversation. 06/13/20 He was seen and examined at bedside. HE is on 40% FIO2 on PRVC. He agreed to have blood drawn today and it showed a Hgb of 8.9 but a WBC count of 23.3. He remains afebrile and VS is stable. He still refuses to engage in any further discussion about his medical care. Per nursing had several episodes of diarrhea, C.diff was sent which was negative. 06/14/20 He was seen and examined at bedside. He appears comfortable in bed. Nurse reported that he refused to have his catheter changed. Also still having diarrhea, C.diff negative. He has refused a rectal tube, he was started on loperamide. He agreed to have his naidu replaced.UA showed large nitrite and leukocyte with >182 WBC. Urine culture pending. Will await culture and treat based on results. 06/15/20 He was seen and examined at bedside. He appears comfortable. He agreed to have a chest CT today which unfortunately showed moderate bilateral pleural effusions with bilateral multifocal pneumonia. I sent for a tracheal aspirate culture.I spoke to the pharmacist and reviewed the abx he had received so far. So far he has received ceftriaxone, cefepime, unasyn, dapto, linezolid, and vanc. Will await urine and tracheal aspirate culture. 06/16/20 Seen and examined at bedside. explained to him CT findings and the need to restart abx. Still awaiting tracheal aspirate result but his UA is growing E.cloacae sensitive to ceftri and I have started him on this. Still awaiting tracheal aspirate culture and sensitivity. Further weaning trail will likely fail due to pleural effusion and pneumonia seen on CT. He was again asking when he can eat food and I told him that his penumonia is likely ventilator and aspiration pneumonia so still not safe for him to eat food by mouth. 06/17/20 HE was seen and examined at bedside. He was very upset because he claims that the nurses were late giving him his pain medications. I have started him on ceftriaxone. He has Enterobacter cloacae growing in his urine staph aureus, sternotrophomonas maltophilia, Enterobacter cloacae growing in his sputum which is also sensitive to ceftriaxone. I explained to him that we would need to repeat chest x-ray as well as blood draws to monitor his response to treatment but he is refusing this again. I have spoken to Kendy from discharge planning regarding his disposition and I was told that they have sent out referrals to [id number] facilities because all the ones here in [place] has refused him. 06/18/2020 Patient transitioned under my care due to shift changes. Patient evaluated by myself on rounds. He is lying in bed with trach in place. His neighbor and friend is present in the room during evaluation. Patient complaints of discomfort in his chest which he relates as persistent for several weeks. EKG obtained, similar to EKG 04/23/2020. Informed the patient that we need to repeat chest x-ray and labs; pt refused again today. Discussed case with nurse, unaware of date of Naidu placement, if > 1 month, plan to change out. Patient has been compliant with medications and q4 blood pressure, but otherwise refusing any further interventions or studies. 06/19/2020 Patient seen on morning rounds. He was resting but awakened easily to his name. I again informed the patient of our need to get follow up tests/images/studies to monitor disease progression. Patient refuses and mouths at me "you pay for the studies then". I continued to explain to the patient that as long as he is in the hospital studies are indicated and I have ordered the studies and we will attempt to obtain studies daily. I again stressed the need for studies to the patient, he again denied. He did allow me to complete a minimal exam. Prior to my leaving the room the patient mouthed aggressively at me, though I was unable to understand what he said. He then waved me out of the room. Discussed with nurse. Pt continues to refuse vitals/labs/studies. 06/20/2020 Patient seen on morning rounds. I was contacted earlier in the morning by the nurse that the patient had episodes of emesis. Tube feeds were stopped last night due to nausea and emesis. Nausea was being treated with Zofran with m inimal relief. I went to the room to talk to the patient states 2-week history of nausea with recent onset emesis yesterday and last night. Patient has continually refused labs, imaging, and vital signs. I requested that I be able to obtain studies to help properly treat patient nausea and other diseases. Patient refused and demanded pain medication. I again requested that we be able to get studies specifically regarding onset nausea and vomiting, patient refused and asked that I leave the room. He did not allow me to complete physical exam today, thus physical exam limited. Following discussion with patient patient's nurse approached me and me that patient is now refusing tube feeds at this time. Continue to monitor his glucose if he is allowing it and vital signs as well. 06/21/2020 Patient continues to refuse studies including vitals. He is on longer vomiting. Discussed with nursing patient continues to refuse tube feeds for nutrition. Patient provided me with no complaints today. I again advised that he allow us to complete studies. He again refused and asked that I leave the room. Physical exam limited again. Continue to monitor his glucose if he is allowing it and vi rayne signs as well. Reason For Visit: MUCOUS PLUGGING, ACUTE HYPOXIC RESPIRATORY FAILURE Physical Exam Vital Signs: Temp Pulse Resp BP Pulse Ox 97.7 F 96 13 103/61 100 06/21/20 08:40 06/21/20 14:00 06/21/20 08:48 06/20/20 11:41 06/21/20 16:08 Intake & Output 06/20/20 06/21/20 06/22/20 06:59 06:59 06:59 Intake Total 3571 50 0 Output Total 680 675 400 Balance 2891 -625 -400 Weight 73.2 kg 73.2 kg Additional comments: General appearance: PRESENT: no acute distress, thin, other - Patient uncooperative during exam, thus exam limited. Head exam: PRESENT: atraumatic, normocephalic Eye exam: PRESENT: EOMI Mouth exam: PRESENT: Dry Neck exam: PRESENT: tracheostomy GI/Abdominal exam: PRESENT:other - PEG tube in place. Gentrourinary exam: PRESENT: indwelling catheter Neurological exam: PRESENT: alert, awake, oriented to person, oriented to place, oriented to time, oriented to situation Psychiatric exam: PRESENT: agitated Results Laboratory Results: 06/13/20 15:47 06/13/20 15:47 04/20/20 04/23/20 04/23/20 09:00 01:55 01:55 Creatine Kinase < 20 L CK-MB (CK-2) 2.20 Troponin I < 0.012 0.082 NT-Pro-B Natriuret Pep [id number] H 04/23/20 04/23/20 04/23/20 05:58 08:22 14:50 Creatine Kinase < 20 L < 20 L CK-MB (CK-2) 2.24 Troponin I 0.066 NT-Pro-B Natriuret Pep 04/23/20 06/09/20 14:50 05:20 Creatine Kinase CK-MB (CK-2) 2.09 Troponin I 0.057 NT-Pro-B Natriuret Pep [id number] H Impressions: PICC Line Insertion 05/07/20 00:00 IMPRESSION: SUCCESSFUL PLACEMENT OF A 5 FR DUAL LUMEN 47 CM PICC IN THE LEFT BRACHIOCEPHALIC VEIN. KUB X-Ray 05/16/20 11:57 IMPRESSION: NG tube as described. Findings as described. Modified Barium Swallow 06/03/20 00:00 IMPRESSION: LARYNGEAL PENETRATION AND ASPIRATION ABOVE. HE WAS PLEASE SEE SPEECH PATHOLOGIST REPORT FOR OTHER FINDINGS AND RECOMMENDATIONS. Thoracentesis Ultrasound 06/08/20 14:12 IMPRESSION: SUCCESSFUL THORACENTESIS USING ULTRASOUND GUIDANCE. Chest X-Ray 06/08/20 19:30 IMPRESSION: Interval increase in opacity overlying the right mid to lower lung zone. Findings are nonspecific. Close attention on follow-up is recommended. CT chest could be considered for further evaluation if clinically indicated. Chest CT 06/15/20 00:00 IMPRESSION: Moderate bilateral pleural effusions with bilateral multifocal pneumonia. Mediastinal lymphadenopathy is probably reactive. Assessment and Plan - Diagnosis (1) Bilateral pneumonia Qualifiers: Pneumonia type: aspiration pneumonia Lung location: lower lobe of lung Is this a current diagnosis for this admission?: Yes Plan: Persistent rales on PE. Denies difficulty breathing. - CT chest 06/15 notable for moderate sized pleural effusion and bilateral pneumonia - Tracheal aspirate 06/15 positive for staph aureus, sternotrophomonas, Enterobacter cloacae similar to his previous sputum cultures - Ceftriaxone started 06/16 as per sensitivity. Patient continues to refuse repeat blood draws and CXR to monitor response to treatment, has refused previously as well. Patient made aware of need for studies to monitor disease progression/appropriate treatment. He expresses un derstanding and refuses further labs or imaging at this time. (2) Urinary tract infection Qualifiers: Urinary tract infection type: catheter-associated UTI Is this a current diagnosis for this admission?: Yes Plan: Chronic Naidu catheter most recently changed 06/14/20 - UC 06/14 + Enterobacter cloacae. Sensitive to ceftriaxone. - 06/13 WBC 23; has refused labs since. - Remains afebrile -Ceftriaxone started 06/16. (3) Leukocytosis Qualifiers: Leukocytosis type: unspecified Qualified Code(s): D72.829 - Elevated white blood cell count, unspecified Is this a current diagnosis for this admission?: Yes Plan: WBC 13.5> 16.2-> 15.2-> 14.4-> 14.5> 23.3 06/13, has since refused lab draw. - Persistently afebrile with VSS. - Refused to repeat chest x-ray to assess for possible pneumonia. - Blood culture 05/09/2020 without growth in 5 days; refuses repeat BC. - Likely secondary to UTI, as above. - Continue Ceftriaxone as above As above, patient refusing furthering imaging or labs, unfortunately unable to identify or locate origin of infection at this time. Patient understanding of this and continues to refuse labs/imaging. (4) Respiratory failure, [id number] Qualifiers: Respiratory failure complication: hypoxia Qualified Code(s): J96.21 - Acute and chronic respiratory failure with hypoxia Is this a current diagnosis for this admission?: Yes Plan: Improved; maintaining oxygen saturations of 98% on FiO2 75%. - Continues to require vent PRVC setting. - Has a trach and on mechanical ventilation; multiple failed weaning trials. - CXR 06/08 Interval increase in opacity overlying the right middle to lower lung zones - Now s/p thoracentesis 06/08 with ~800 ml removed. - Pleural effusion w/ WBC 367, RBC 88. - LDH 138, Albumin 0.7, Glucose 174. - Cultures no growth. - Repeat CT 06/15 chest moderate bilateral pleural effusion and multifocal pne umonia (Ceftriaxone as above) - Continue with ventilator (5) Chronic pain Qualifiers: Chronic pain type: other chronic pain Qualified Code(s): G89.29 - Other chronic pain Is this a current diagnosis for this admission?: Yes Plan: Continued difficulty with managing patient's opiate dependence, chronic pain, desire for IV route, and hypoxia. - Previous provider notes reviewed - Morphine 10 mg via PEG q4h prn as per pain management recommendations. - This was adjusted to Morphine 7.5mg q3hrs with improvement in pt treatment toward nursing. - Pain management with recommendations to not renegotiate pain medications with the patient to maintain on this current 24-hour morphine dose. (6) Anxiety about health Is this a current diagnosis for this admission?: Yes Plan: As per previous providers on case and nursing patient with frequent anxiety attacks regarding his current state of health. - Continue buspar 10 BID - Utilize vistaril 25m q8prn during acute bouts. - Advised against benzo therapy. (7) Critical illness myopathy Is this a current diagnosis for this admission?: Yes Plan: With history of ICU and prolonged hospital stay - Given 3+ month hx hpspital admission would require extensive rehab - PT/OT/ST consulted - Pt continues to refuse rehab (8) Dysphagia Qualifiers: Dysphagia type: oropharyngeal phase Qualified Code(s): R13.12 - Dysphagia, oropharyngeal phase Is this a current diagnosis for this admission?: Yes Plan: Now with PEG - Most recent swallow eval 06/03/20, failed. - currently receiving feeding via PEG with free water flushes. - Na stable. - Unable to monitor due to lab refusal. (9) Bacteremia due to Enterococcus Is this a current diagnosis for this admission?: Yes Plan: Resolved - 05/07 + BC enterococcus - 05/09 BC without growth > 5 days - Completed Abx course - TTE as recommended by ID pending, pt has refused. (10) MSSA bacteremia Is this a current diagnosis for this admission?: Yes Plan: Resolved, completed abx treatment - BC 05/07 + MSSA - BC 05/09 without growth > 5 days - Patient refusing repeat blood culture. - Patient refusing echocardiogram as recommended by ID. 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 - On insulin - Hypoglycemic protocol in place (12) Acute kidney injury superimposed on chronic kidney disease Is this a current diagnosis for this admission?: Yes Plan: Resolved. - BUN/Creatinine 28/0.94 as per most recent labs 06/13 - Since refusing labs (13) Acute metabolic encephalopathy Is this a current diagnosis for this admission?: Yes Plan: Resolved. (14) Debility Is this a current diagnosis for this admission?: Yes Plan: PT/OT/ST consulted though repeatedly refusing - Needs LTAC placement (15) Dependent on ventilator Is this a current diagnosis for this admission?: Yes Plan: O2 saturation 98% with FiO2 75. -Slowly wean this tolerated. -Rose Mary will faily secondary to bilateral pleural portion of multifocal pneumonia. - Discharge planning sending out referrals to [id number] facilities to take him; denies by all instate facilities (16) COVID-19 Is this a current diagnosis for this admission?: Yes Plan: -resolved but patient has suffered significant comorbidity from it - no indication to retest - continue vent support. Wean as tolerated (17) Nausea and vomiting Qualifiers: Vomiting type: unspecified Vomiting Intractability: non-intractable Qualified Code(s): R11.2 - Nausea with vomiting, unspecified Is this a current diagnosis for this admission?: Yes Plan: 2-week history nausea with multiple episodes of emesis over past 24 hours. - Treat with zofran - Patient demanding pain medications and refusing any labs/studies - Plan Summary Summary: Patient with history refusing medical studies and treatment. Continues to refuse treatment and evaluation. Difficult to truly care for and manage patient due to his non-compliance and refusal of care. - Time Time Spent with patient: Less than 15 minutes Medications reviewed and adjusted accordingly: Yes Anticipated Discharge Disposition: Detention Care Facility Anticipated Discharge Timeframe: NA
[2020-06-22] MEDS: INSULIN REG, HUMAN 100 UNIT/ML 3 ML VIAL (PYX) SUBCUT SCH ×4 (00:42→17:42)
[2020-06-22] MEDS: DEXTROSE 50%-WATER 25 GM/50 ML DISP.SYRIN IV PRN ×2 (05:10→11:36)
[2020-06-22] MEDS: MORPHINE SULFATE 10 MG/5 ML ORAL SOLUTION UDCUP PO PRN ×5 (05:33→23:31)
[2020-06-22 06:12] LABS: HEMATOCRIT 24.2 % (37.9-51.0); MEAN CORPUSCULAR HEMOGLOBIN 27.6 pg (27.0-33.4); MEAN CORPUSCULAR HGB CONC 32.3 g/dL (32.0-36.0); MEAN CORPUSCULAR VOLUME 86 fl (80-97); PLATELET COUNT 431 10^3/uL (150-450); RED BLOOD COUNT 2.82 10^6/uL (4.35-5.55); RED CELL DISTRIBUTION WIDTH 17.9 % (11.5-14.0); WHITE BLOOD COUNT 14.4 10^3/uL (4.0-10.5)
[2020-06-22 06:16] LABS: HEMOGLOBIN 7.8 g/dL (13.5-17.0)
[2020-06-22 06:29] LABS: ALBUMIN 2.1 g/dL (3.5-5.0); ALKALINE PHOSPHATASE 152 U/L (38-126); ANION GAP 9 (5-19); ASPARTATE AMINO TRANSFERASE 16 U/L (17-59); BILIRUBIN,DIRECT 0.4 mg/dL (0.0-0.4); BILIRUBIN,TOTAL 0.5 mg/dL (0.2-1.3); BLOOD UREA NITROGEN 23 mg/dL (7-20); CALCIUM 8.3 mg/dL (8.4-10.2); CARBON DIOXIDE 32 mmol/L (22-30); CHLORIDE 98 mmol/L (98-107); GLUCOSE 185 mg/dL (75-110); PHOSPHORUS 4.2 mg/dL (2.5-4.5); POTASSIUM 4.6 mmol/L (3.6-5.0); TOTAL PROTEIN 5.8 g/dL (6.3-8.2)
[2020-06-22] MEDS: ACETYLCYSTEINE 20% SOLN 800 MG/4 ML VIAL.NEB NEB SCH ×2 (09:01→20:54)
[2020-06-22] MEDS: IPRATROPIUM/ALBUTEROL 0.5-2.5 MG/3 ML AMPUL NEB PRN ×2 (09:01→20:55)
[2020-06-22] MEDS: ONDANSETRON HCL INJ/PF 4 MG/2 ML SDV IV PRN ×3 (11:29→21:35)
[2020-06-22] MEDS: DIPHENHYDRAMINE HCL 50 MG/ML VIAL IV PRN ×2 (11:29→20:26)
[2020-06-22] MEDS: HYDROXYZINE HCL INJ 50 MG/1 ML VIAL IM PRN (11:54)
[2020-06-22] MEDS: BUSPIRONE HCL 10 MG TABLET PEG SCH ×2 (11:55→17:35)
[2020-06-22] MEDS: LOPERAMIDE HCL 2 MG CAPSULE PO SCH ×2 (11:56→17:35)
[2020-06-22] MEDS: NORMAL SALINE 10 ML SDV (SCHEDULED) IV SCH ×2 (11:56→21:36)
[2020-06-22] MEDS: FUROSEMIDE ORAL SOLN 40 MG/5 ML UDCUP PEG SCH (11:56)
[2020-06-22] MEDS: CALCIUM CARBONATE 500 MG TAB.CHEW PEG SCH ×2 (11:57→17:35)
[2020-06-22] MEDS: SCOPOLAMINE HYDROBROMIDE 1.5 MG PATCH.TD72 TD SCH (12:30)
--- NOTE | 2020-06-22 16:37 | PDOC PROGRESS REPORT ---
Subjective Date:: 06/22/20 Subjective:: Per admitting physician: "FREDDIE LAZO JR is a 60 year old male, past medical history of type 2 diabetes hypertension CHF narcotic dependence CKD who was recently discharged from [facility] April 19, 2020 after being admitted for 89 days secondary to acute respiratory failure from COVID pneumonia. He was discharged with a tracheostomy tube uncuffed. Before discharge he has been able to speak and eat and the plan was to eventually remove the tracheostomy at [facility]. Sent back to the emergency room for evaluation of shortness of breath. EMS was called by the facility because the patient was diaphoretic with a blood glucose of 30 staff administered 1 mg glucagon in a tube and a half of oral glucose prior to EMS arrival and recheck of blood glucose was 40. Upon EMS arrival patient was pale with diminished breath sounds so he was placed on 15 L O2 via nonrebreather O2 sats went up to 86% and blood glucose was 147 upon ED arrival. In the emergency room he apparently continued to be hypoxic hence a trach cuff was placed and he was put back on mechanical ventilation briefly. He was also noted to be hypotensive hence central line was placed by Dr. Jean-Baptiste. Patient was given IV fluids. Repeat chest x-ray showed improvement of his diffuse bibasilar opacities compared from previous chest x-ray. Dr. Chandler evaluated him in the ED who felt that he does not need ICU admission. He was given 4 L of IV fluids. He was eventually transitioned to tracheal collar and was maintaining his O2 saturation to 95%. Patient was then admitted for further management. WBC count 19.5 in the ED he was given 1 dose of aztreonam and vancomycin." Per Previous Physician: "05/14/2020 MUCOUS PLUGGING, ACUTE HYPOXIC RESPIRATORY FAILURE Patient was seen early on in rounds this morning. At the time patient was noted to sound congested. He however had been suctioned and apparently no further suctioning required at that time. I discussed with the patient the need to be able to give him medications either through an NG tube or PEG tube IV fluids or TPN or combination of all these however patient refused. Patient was new to me today and after discussing with the nurse I did find out that he had been refusing multiple modalities of treatment and management. About 30 minutes after saw this patient when he was still relatively stable a rapid response was called and apparently he went into respiratory distress. He was found to be hypoxic. By the time he got there he was cyanotic. His oxygen saturation was in the 60s also. He was 100% oxygen and his BiPAP setting was changed. Multiple attempts to oxygenate him failed. It was felt that patient will be better served in the intensive care unit. Food And Beverage Director was informed and Came to assess patient. Patient was transferred to the unit. Please see Dr. Hernández's notes for further details chest x-ray obtained reveals diffuse opacification in the left chest possibly due to extensive infiltrate atelectasis collapse pleural effusion with improved aeration in the right lung base. This is consistent with his lung findings which shows grossly diminished air entry." 05/20/2020 Patient sent out of the ICU yesterday afternoon. Per my discussion with Dr. Chandler, patient has frequent mucous plugging and needs to be lavaged and suctioned by respiratory therapy frequently. It is likely the patient will continue mucous plugging intermittently and may need to be sent back to the ICU at some point. He has been maintained on trach collar with intermittent ventilatory support. Patient was asking for increases in his narcotics and I discussed the risks of respiratory depression if we were to pursue this. We will keep his narcotics at the current dosing and frequency for now. 05/21/2020 Patient had a episode of mucous plugging which resolved with aggressive lavage and suctioning by RT. Patient also had a problem with his NG feeding tube where it was somewhat displaced and nursing replaced this infected follow-up chest x- ray To confirm location. Blood culture on 05/09 remains negative. Latest chest x-ray shows diffuse bilateral disease which could potentially be worse. Patient is calm and resting today and does not have any new complaints. 05/22/2020 Patient appears rather calm today until I entered the room. He then wrote on his marker board and mouthed words to me stating he wants IV narcotics and IV sedatives. I discussed with him that adding these medications could be detrimental to his respiratory status. We will keep his pain medication as it is for now. I believe he is gradually improving as respiratory therapy is doing a great job lavaging and suctioning out large mucous plugs daily. Perhaps if we do enough of this every day, patient will be able to wean from the ventilator and tolerate trach collar alone. 05/23/2020 I had an extensive discussion with the patient today regarding PEG tube placement and he repeatedly stated he wanted to speak to the doctor and I repeatedly told him I am the doctor. I asked him if he would like me to get the surgeon involved to place a PEG tube. He refused to answer me at this point and did not seem interested in any my recommendations. We will ask respiratory therapy if he can get CPT to break up mucous plugs, continue lavaging and suctioning, and continue attempting to wean from the vent. Hemoglobin showed an acute drop down to 6.4 and this was rechecked to reveal 6.9. We will transfuse 1 unit PRBC which may help with his oxygenation as well. Will need to be mindful of the extra volume this will provide and watch for volume overload. Blood cell count is higher while hemoglobin and platelets are lower. Calcium is significantly lower we will replete this both IV and oral. 05/24/2020 Patient is resting comfortably today. He is off IV antibiotics and I have discontinued his IV Benadryl in place of Benadryl capsules that can go through his NG tube. We are still waiting on the patient to decide if he wants a PEG tube to be placed. It is my understanding that he cannot go to an acute care facility for rehab until he has a definitive feeding tube placed and he cannot go to a regular SNF while he is requiring the vent. If the patient wants a PEG tube or if we can wean him from the vent, disposition can move forward. Respiratory therapy will continue to lavage and suction the patient regularly and weaning from the ventilator. I discussed this with nursing. Hemoglobin is higher and potassium is lower today. His chest x-ray looks noticeably improved per my read. 05/25/2020 Patient fully awake and alert today and states repeatedly that he wants a PEG tube placed. He states that his pain after procedures is only well controlled on Dilaudid and I stated I would give him a low-dose of Dilaudid available as needed afterwards. I have consulted general surgery discussed case with Dr. Small who is agreed to consult on the patient. Patient will have his PEG tube placed tomorrow and will be n.p.o. at midnight tonight. Tube feeds will need to be held. We will make sure the patient has adequate pain control afterwards. Case management will need to start aggressively applying the patient for LTAC facilities starting on Wednesday. 05/26/2020 Patient successfully had PEG tube placed. He is having some additional pain I have increased the frequency of his IV Dilaudid. He understands we will begin tapering this tomorrow. Respiratory status is approximately the same as before. He still requiring frequent ventilator support. Latest blood cultures are negative. Plan is for patient to go to [facility] in the next few days if he is accepted. 05/27/2020 Patient states his pain is well controlled and he would like to start transitioning from IV narcotics to oral narcotics in anticipation of going to LTAC. I have switched his Dilaudid to oral I will leave a smaller dose available for breakthrough pain. Patient states he is motivated to perform more aggressive rehab and he knows that this cannot be accomplished inpatient. Patient's breathing is about the same as it was yesterday. Patient still requiring ventilator support. 05/28/20 Patient was seen and examined at bedside. Complains of pain lower abdomen however physical exam not consistent with the amount of pain he is complaining of. He is also requesting for more IV pain medications. He is status post PEG tube placement postop day 1 currently tolerating tube feedings. No significant change on his pulmonary status. 05/29/20 Patient was seen and examined at bedside. No new complains. Asking if he can have clear soup, I told him it would not be advisable now. He is asking for more IV pain medications as usual. 05/30/20 Patient seen and examined. Complaining of anxiety. I have increased his Buspar to 10 BID. Swallow eval for tomorrow. 05/31/20 Patient was seen and examined at bedside. He apparently refused swallow eval that was ordered today. But later when I rounded on him he claimed that did not even come. It has been noted before the he refuses a lot of therapeutic interventions. He is stable otherwise on mechanical ventilation. 06/01/20 Patient was seen and examined at bedside. he is again asking on when he can do a swallow eval. I have told him this will be done on wednesday. He was also asking if he has a medication for his anxiety and again I told him that he has Buspar BID. He should not be started on Xanax or any other benzo. 06/02/20 PAtient was seen and examined at bedside. He was asleep after receiving vistaril for anxiety. I have asked the respiratory therapist to try and wean him off with PSV. however he desaturates so he was put back on SIMV. 06/03/20 Patient was seen and examined at bedside. He still has episodes of anxiety and vistaril seems to have helped. He had just received his dilaudid prior to my visit hence he was very sleepy and did not want to talk much. He failed swallow eval today. 06/04/20 Patient was seen and examined at bedside. No new complains, had PT today. Afebrile. PEG tube feeding on going. 06/11/20 Care resumed today. He is complaining of pain and wanted more pain medications which I refused to give him and then he refused to engage in anymore conversation. He does appear comfortable otherwise. Notes from previous week reviewed. He was transfused with 2 u PRNC due to anemia. Also underwent thoracentesis with removal of 800 ml pleural fluid. 06/12/20 He was seen and examined at bedside. He is still refusing lab work ups and repeat CT chest despite explaining the medial necessity for this. He refuses to engage in any more conversation. 06/13/20 He was seen and examined at bedside. HE is on 40% FIO2 on PRVC. He agreed to have blood drawn today and it showed a Hgb of 8.9 but a WBC count of 23.3. He remains afebrile and VS is stable. He still refuses to engage in any further discussion about his medical care. Per nursing had several episodes of diarrhea, C.diff was sent which was negative. 06/14/20 He was seen and examined at bedside. He appears comfortable in bed. Nurse reported that he refused to have his catheter changed. Also still having diarrhea, C.diff negative. He has refused a rectal tube, he was started on loperamide. He agreed to have his naidu replaced.UA showed large nitrite and leukocyte with >182 WBC. Urine culture pending. Will await culture and treat based on results. 06/15/20 He was seen and examined at bedside. He appears comfortable. He agreed to have a chest CT today which unfortunately showed moderate bilateral pleural effusions with bilateral multifocal pneumonia. I sent for a tracheal aspirate culture.I spoke to the pharmacist and reviewed the abx he had received so far. So far he has received ceftriaxone, cefepime, unasyn, dapto, linezolid, and vanc. Will await urine and tracheal aspirate culture. 06/16/20 Seen and examined at bedside. explained to him CT findings and the need to restart abx. Still awaiting tracheal aspirate result but his UA is growing E.cloacae sensitive to ceftri and I have started him on this. Still awaiting tracheal aspirate culture and sensitivity. Further weaning trail will likely fail due to pleural effusion and pneumonia seen on CT. He was again asking when he can eat food and I told him that his penumonia is likely ventilator and aspiration pneumonia so still not safe for him to eat food by mouth. 06/17/20 HE was seen and examined at bedside. He was very upset because he claims that the nurses were late giving him his pain medications. I have started him on ceftriaxone. He has Enterobacter cloacae growing in his urine staph aureus, sternotrophomonas maltophilia, Enterobacter cloacae growing in his sputum which is also sensitive to ceftriaxone. I explained to him that we would need to repeat chest x-ray as well as blood draws to monitor his response to treatment but he is refusing this again. I have spoken to Kendy from discharge planning regarding his disposition and I was told that they have sent out referrals to [id number] facilities because all the ones here in [place] has refused him. 06/18/2020 Patient transitioned under my care due to shift changes. Patient evaluated by myself on rounds. He is lying in bed with trach in place. His neighbor and friend is present in the room during evaluation. Patient complaints of discomfort in his chest which he relates as persistent for several weeks. EKG obtained, similar to EKG 04/23/2020. Informed the patient that we need to repeat chest x-ray and labs; pt refused again today. Discussed case with nurse, unaware of date of Naidu placement, if > 1 month, plan to change out. Patient has been compliant with medications and q4 blood pressure, but otherwise refusing any further interventions or studies. 06/19/2020 Patient seen on morning rounds. He was resting but awakened easily to his name. I again informed the patient of our need to get follow up tests/images/studies to monitor disease progression. Patient refuses and mouths at me "you pay for the studies then". I continued to explain to the patient that as long as he is in the hospital studies are indicated and I have ordered the studies and we will attempt to obtain studies daily. I again stressed the need for studies to the patient, he again denied. He did allow me to complete a minimal exam. Prior to my leaving the room the patient mouthed aggressively at me, though I was unable to understand what he said. He then waved me out of the room. Discussed with nurse. Pt continues to refuse vitals/labs/studies. 06/20/2020 Patient seen on morning rounds. I was contacted earlier in the morning by the nurse that the patient had episodes of emesis. Tube feeds were stopped last night due to nausea and emesis. Nausea was being treated with Zofran with m inimal relief. I went to the room to talk to the patient states 2-week history of nausea with recent onset emesis yesterday and last night. Patient has continually refused labs, imaging, and vital signs. I requested that I be able to obtain studies to help properly treat patient nausea and other diseases. Patient refused and demanded pain medication. I again requested that we be able to get studies specifically regarding onset nausea and vomiting, patient refused and asked that I leave the room. He did not allow me to complete physical exam today, thus physical exam limited. Following discussion with patient patient's nurse approached me and me that patient is now refusing tube feeds at this time. Continue to monitor his glucose if he is allowing it and vital signs as well. 06/21/2020 Patient continues to refuse studies including vitals. He is on longer vomiting. Discussed with nursing patient continues to refuse tube feeds for nutrition. Patient provided me with no complaints today. I again advised that he allow us to complete studies. He again refused and asked that I leave the room. Physical exam limited again. Continue to monitor his glucose if he is allowing it and vi rayne signs as well. 06/22/2020 Patient seen resting in bed. Per nursing note, patient agreed to VS assessment and lab draw this a.m.; blood cultures, UA, UC, CXR. Blood sugar 46 on accucheck, pt given dextrose per protocol; continues to decline tube feeds. On encounter today I again asked patient that we be able to complete pending workup, patient denied. I explained to the patient the need for further workup, he continued to deny. When I inquired about his refusal for tube feeds he stated that he wants to eat food, I explained to the patient the associated risk with oral intake and aspiration, encouraged tube feeds. Patient denied tube feeds. When asked if I can complete a physical exam patient denies. I was contacted by psych, they plan to re-evaluate patient's ability to make decisions today. Reason For Visit: MUCOUS PLUGGING, ACUTE HYPOXIC RESPIRATORY FAILURE Physical Exam Vital Signs: Temp Pulse Resp BP Pulse Ox 97.7 F 91 10 L 139/71 H 100 06/22/20 08:04 06/22/20 14:00 06/22/20 09:01 06/22/20 05:07 06/22/20 09:01 Intake & Output 06/21/20 06/22/20 06/23/20 06:59 06:59 06:59 Intake Total 50 50 Output Total 675 775 Balance -625 -725 Weight 73.2 kg 73.4 kg Additional comments: General appearance: PRESENT: no acute distress, thin, other - Patient denies physical exam today, thus exam is limited to visualized evaluation only. Head exam: PRESENT: atraumatic, normocephalic Eye exam: PRESENT: EOMI Mouth exam: PRESENT: Dry Neck exam: PRESENT: tracheostomy Neurological exam: PRESENT: alert, awake, oriented to person, oriented to place, oriented to time, oriented to situation Psychiatric exam: PRESENT: agitated Results Laboratory Results: 06/22/20 05:30 06/22/20 05:30 06/22/20 06/22/20 06/22/20 05:30 05:30 05:30 WBC 14.4 H RBC 2.82 L Hgb 7.8 L Hct 24.2 L MCV 86 MCH 27.6 MCHC 32.3 RDW 17.9 H Plt Count 431 Sodium 138.8 Potassium 4.6 Chloride 98 Carbon Dioxide 32 H Anion Gap 9 BUN 23 H Creatinine 0.90 Est GFR ( Amer) > 60 Glucose 185 H Calcium 8.3 L Phosphorus 4.2 Magnesium 1.8 Total Bilirubin 0.5 AST 16 L Alkaline Phosphatase 152 H Total Protein 5.8 L Albumin 2.1 L TSH 1.81 04/20/20 04/23/20 04/23/20 09:00 01:55 01:55 Creatine Kinase < 20 L CK-MB (CK-2) 2.20 Troponin I < 0.012 0.082 NT-Pro-B Natriuret Pep 94238 H 04/23/20 04/23/20 04/23/20 05:58 08:22 14:50 Creatine Kinase < 20 L < 20 L CK-MB (CK-2) 2.24 Troponin I 0.066 NT-Pro-B Natriuret Pep 04/23/20 06/09/20 14:50 05:20 Creatine Kinase CK-MB (CK-2) 2.09 Troponin I 0.057 NT-Pro-B Natriuret Pep 23054 H Impressions: PICC Line Insertion 05/07/20 00:00 IMPRESSION: SUCCESSFUL PLACEMENT OF A 5 FR DUAL LUMEN 47 CM PICC IN THE LEFT BRACHIOCEPHALIC VEIN. KUB X-Ray 05/16/20 11:57 IMPRESSION: NG tube as described. Findings as described. Modified Barium Swallow 06/03/20 00:00 IMPRESSION: LARYNGEAL PENETRATION AND ASPIRATION ABOVE. HE WAS PLEASE SEE SPEECH PATHOLOGIST REPORT FOR OTHER FINDINGS AND RECOMMENDATIONS. Thoracentesis Ultrasound 06/08/20 14:12 IMPRESSION: SUCCESSFUL THORACENTESIS USING ULTRASOUND GUIDANCE. Chest X-Ray 06/08/20 19:30 IMPRESSION: Interval increase in opacity overlying the right mid to lower lung zone. Findings are nonspecific. Close attention on follow-up is recommended. CT chest could be considered for further evaluation if clinically indicated. Chest CT 06/15/20 00:00 IMPRESSION: Moderate bilateral pleural effusions with bilateral multifocal pneumonia. Mediastinal lymphadenopathy is probably reactive. Assessment and Plan - Diagnosis (1) Bilateral pneumonia Qualifiers: Pneumonia type: aspiration pneumonia Lung location: lower lobe of lung Is this a current diagnosis for this admission?: Yes Plan: Patient refused physical exam. Unable to evaluate lung sounds today. - CT chest 06/15 notable for moderate sized pleural effusion and bilateral pneumonia - Tracheal aspirate 06/15 positive for staph aureus, sternotrophomonas, Enterobacter cloacae similar to his previous sputum cultures - Ceftriaxone started 06/16 as per sensitivity. Patient continues to refuse repeat blood draws and CXR to monitor response to treatment, has refused previously as well. Patient made aware of need for studies to monitor disease progression/appropriate treatment. He expresses understanding and refuses further labs or imaging at this time. (2) Urinary tract infection Qualifiers: Urinary tract infection type: catheter-associated UTI Is this a current diagnosis for this admission?: Yes Plan: Chronic Naidu catheter most recently changed 06/14/20 - UC 06/14 + Enterobacter cloacae. Sensitive to ceftriaxone. - 06/13 WBC 23; has refused labs since. - Remains afebrile -Ceftriaxone started 06/16, last dose today. (3) Leukocytosis Qualifiers: Leukocytosis type: unspecified Qualified Code(s): D72.829 - Elevated white blood cell count, unspecified Is this a current diagnosis for this admission?: Yes Plan: WBC 13.5> 16.2-> 15.2-> 14.4-> 14.5> 23.3 -> 14.6 - Persistently afebrile with VSS. - Refused to repeat chest x-ray to assess for possible pneumonia. - Blood culture 05/09/2020 without growth in 5 days; refuses repeat BC. - Likely secondary to UTI, as above. - Continue Ceftriaxone as above As above, patient refusing furthering imaging or labs, unfortunately unable to identify or locate origin of infection at this time. Patient understanding of this and continues to refuse labs/imaging. (4) Respiratory failure, [id number] Qualifiers: Respiratory failure complication: hypoxia Qualified Code(s): J96.21 - Acute and chronic respiratory failure with hypoxia Is this a current diagnosis for this admission?: Yes Plan: Improved; maintaining oxygen saturations of 98% on FiO2 75%. - Continues to require vent PRVC setting. - Has a trach and on mechanical ventilation; multiple failed weaning trials. - CXR 06/08 Interval increase in opacity overlying the right middle to lower lung zones - Now s/p thoracentesis 06/08 with ~800 ml removed. - Pleural effusion w/ WBC 367, RBC 88. - LDH 138, Albumin 0.7, Glucose 174. - Cultures no growth. - Repeat CT 06/15 chest moderate bilateral pleural effusion and multifocal pneumonia (Ceftriaxone as above) - Continue with ventilator (5) Chronic pain Qualifiers: Chronic pain type: other chronic pain Qualified Code(s): G89.29 - Other chronic pain Is this a current diagnosis for this admission?: Yes Plan: Continued difficulty with managing patient's opiate dependence, chronic pain, d esire for IV route, and hypoxia. - Previous provider notes reviewed - Morphine 10 mg via PEG q4h prn as per pain management recommendations. - This was adjusted to Morphine 7.5mg q3hrs with improvement in pt treatment toward nursing. - Pain management with recommendations to not renegotiate pain medications with the patient to maintain on this current 24-hour morphine dose. (6) Anxiety about health Is this a current diagnosis for this admission?: Yes Plan: As per previous providers on case and nursing patient with frequent anxiety attacks regarding his current state of health. - Continue buspar 10 BID - Utilize vistaril 25m q8prn during acute bouts. - Advised against benzo therapy. (7) Critical illness myopathy Is this a current diagnosis for this admission?: Yes Plan: With history of ICU and prolonged hospital stay - Given 3+ month hx hpspital admission would require extensive rehab - PT/OT/ST consulted - Pt continues to refuse rehab (8) Dysphagia Qualifiers: Dysphagia type: oropharyngeal phase Qualified Code(s): R13.12 - Dysphagia, oropharyngeal phase Is this a current diagnosis for this admission?: Yes Plan: Now with PEG - Most recent swallow eval 06/03/20, failed. - currently receiving feeding via PEG with free water flushes. - Na stable as per previous labs. - Unable to monitor due to lab refusal. Patient continues to refuse tube feeds. Demands that he have access to food by mouth today. Patient educated on the risk associated with oral intake and aspiration. Plan to continue with tube feeds. (9) Bacteremia due to Enterococcus Is this a current diagnosis for this admission?: Yes Plan: Resolved - 05/07 + BC enterococcus - 05/09 BC without growth > 5 days - Completed Abx course - TTE as recommended by ID pending, pt has refused. (10) MSSA bacteremia Is this a current diagnosis for this admission?: Yes Plan: Resolved, completed abx treatment - BC 05/07 + MSSA - BC 05/09 without growth > 5 days - Patient refusing repeat blood culture. - Patient refusing echocardiogram as recommended by ID. (11) Hyperglycemia due to type 2 diabetes mellitus Qualifiers: Diabetes mellitus turn down attendant insulin use: with turn down attendant use Qualified Code(s): E11.65 - Type 2 diabetes mellitus with hyperglycemia; Z79.4 - assisted (current) use of insulin Is this a current diagnosis for this admission?: Yes Plan: Patient without hypoglycemia today on accucheck, likely because patient refusing tube feeds. - Tx'd with dextrose - Pt educated on the need of tube feeds and risk associated with hypoglycemic episodes. - Patient does not acknowledge information provided. - Hypoglycemic protocol in place (12) Acute kidney injury superimposed on chronic kidney disease Is this a current diagnosis for this admission?: Yes Plan: Resolved. - BUN/Creatinine 23/0.90 today (13) Acute metabolic encephalopathy Is this a current diagnosis for this admission?: Yes Plan: Resolved. (14) Debility Is this a current diagnosis for this admission?: Yes Plan: PT/OT/ST consulted though repeatedly refusing - Needs LTAC placement (15) Dependent on ventilator Is this a current diagnosis for this admission?: Yes Plan: O2 saturation 100% with FiO2 75. -Slowly wean this tolerated. -Rose Mary will faily secondary to bilateral pleural portion of multifocal pneumonia. - Discharge planning sending out referrals to [id number] facilities to take him; denies by all instate facilities (16) COVID-19 Is this a current diagnosis for this admission?: Yes Plan: -resolved but patient has suffered significant comorbidity from it - no indication to retest - continue vent support. Wean as tolerated (17) Nausea and vomiting Qualifiers: Vomiting type: unspecified Vomiting Intractability: non-intractable Qualified Code(s): R11.2 - Nausea with vomiting, unspecified Is this a current diagnosis for this admission?: Yes Plan: Resolved. - Treat with zofran - Plan Summary Summary: Patient with history refusing medical studies and treatment. Continues to refuse treatment and evaluation. Difficult to truly care for and manage patient due to his non-compliance and refusal of care. - Time Time Spent with patient: Less than 15 minutes Anticipated Discharge Disposition: [facility] Anticipated Discharge Timeframe: NA
[2020-06-22] MEDS: CEFTRIAXONE 1 GM/D5W RTU 1 GM/50 ML RTUPB IV SCH (17:34)
--- NOTE | 2020-06-22 18:58 | PDOC CONSULTATION ---
Consultation-Blank Consultation: Behavioral Health Consult: Discussion and consultation with Dr. Farr from [id number]. Chart review at 1705. Presenting Problem: Patient refusing/declining medical treatment(s) to include lab redraws, medications, Peg Tube feedings, and others A Capacity was requested on 05/10/2020 at 0953. A Chart review was conducted that day and it was authorized by the Hospitalist (Dr. Bajwa) actual capacity screening to take place 05/13/2020 by the Behavioral Health Clinician Anthony Alba who would be on site (that weekend this clinician was on quarantine and working from home via [employer]). Clinician Anthony Alba tried to conduct capacity screening at least twice, with the first time patient refusing to engage and a second time patient was intubated. Discussion with Dr. Farr surrounded having conversation with Hospitalist about things like is patient on a ventilator or just has a trach. If on ventilator is there more harm keeping versus removing. If this is the case can implement Involuntary Commitment for patient being harmful to self. It is noted patient is homeless with no place to go. He often won't talk or tells providers to get out of the room. Chart review revealed as of today patient is still on a ventilator. Clinical Presentation: Refusing medical treatment Understanding and knowledge of such refusal Not getting superintendent container terminal placement due to medical issues not being addressed as result of his refusal
--- NOTE | 2020-06-22 19:09 | PDOC CONSULTATION ---
Consultation-Blank Consultation: Behavioral Health Consult: Discussion and consultation with Hospitalist at 1108- 1110 and [id number]. Presenting Problem: Patient refusing/declining medical treatment(s) to include lab redraws, medications, Peg Tube feedings, and others Hospitalist confirmed patient has been refusing medical treatments, Peg Tube feedings and such. She acknowledged patient is on a ventilator with the trach. She stated at one time they looked at making a switch to get off ventilator in case these would be needed for COVID patients, patient plummeted, so he needs the ventilator. She also noted patient is a Full Code and wants to be. Discussed situation with Dr. Farr who noted there does not seem to be much Behavioral Health can do to assist. Spoke to Hospitalist again to inform not much Behavioral Health can do at this time. She stated patient did allow for labs and vitals today, he had been told he would not be administered Morphine (patient has no problem requesting his pain medication or saying he's not getting it enough) if he didn't, and said no more. Explained Behavioral Health would conduct face to face within the next two days since one had not been done in several days. Clinical Presentation: Refusing medical treatment Understanding and knowledge of such refusal Not getting custodial placement due to medical issues not being addressed as result of his refusal Impression/Plan: Behavioral Health is unable to do much for assistance at this time. A face to face will be conducted around 1030 tomorrow (06/23/2020) since it has been several days in attempting to do so. Once that face to face is completed will do final coordination with Hospitalist. Consulted with Dr. Farr regarding the management. Ongoing coordination with Hospitalist (twice today and further to take place tomorrow).
[2020-06-23] MEDS: INSULIN REG, HUMAN 100 UNIT/ML 3 ML VIAL (PYX) SUBCUT SCH ×4 (00:46→17:54)
[2020-06-23] MEDS: ONDANSETRON HCL INJ/PF 4 MG/2 ML SDV IV PRN ×4 (01:35→21:09)
[2020-06-23] MEDS: MORPHINE SULFATE 10 MG/5 ML ORAL SOLUTION UDCUP PO PRN ×3 (02:49→21:10)
[2020-06-23] MEDS: DIPHENHYDRAMINE HCL 50 MG/ML VIAL IV PRN ×2 (06:24→21:09)
[2020-06-23] MEDS: ACETYLCYSTEINE 20% SOLN 800 MG/4 ML VIAL.NEB NEB SCH ×2 (09:09→20:57)
[2020-06-23] MEDS: IPRATROPIUM/ALBUTEROL 0.5-2.5 MG/3 ML AMPUL NEB PRN ×2 (09:09→20:57)
[2020-06-23] MEDS ORDERED: MORPHINE SULFATE 10 MG/5 ML ORAL SOLUTION UDCUP ONE (09:36)
[2020-06-23] MEDS: BUSPIRONE HCL 10 MG TABLET PEG SCH ×2 (09:40→17:54)
[2020-06-23] MEDS: NORMAL SALINE 10 ML SDV (SCHEDULED) IV SCH ×2 (09:40→21:13)
[2020-06-23] MEDS: LOPERAMIDE HCL 2 MG CAPSULE PO SCH ×2 (09:40→17:55)
[2020-06-23] MEDS: CALCIUM CARBONATE 500 MG TAB.CHEW PEG SCH ×2 (09:40→17:55)
[2020-06-23] MEDS: FUROSEMIDE ORAL SOLN 40 MG/5 ML UDCUP PEG SCH (09:41)
[2020-06-23] MEDS: HYDROXYZINE HCL INJ 50 MG/1 ML VIAL IM PRN ×2 (09:41→21:23)
[2020-06-23] MEDS ORDERED: MORPHINE SULFATE 10 MG/5 ML ORAL SOLUTION UDCUP PO ONE (10:00)
[2020-06-23] MEDS: DEXTROSE 50%-WATER 25 GM/50 ML DISP.SYRIN IV PRN (10:53)
[2020-06-23] MEDS: DEXTROSE 5%-1/2 NORMAL SALINE 1,000 ML IV PRN (12:21)
--- NOTE | 2020-06-23 13:40 | PDOC CONSULTATION ---
Consultation-Blank Consultation: Behavioral Health Consult: Collateral from Attending Nurse and Hospitalist in person, as well as face to face evaluation with patient, all from [phone]. Presenting Problem: Patient refusing/declining medical treatment(s) to include lab redraws, medications, Peg Tube feedings, and others Attending Nurse and Hospitalist noted patient is upset right now due to Hospitalist telling him he will not be administered Morphine if he continues to refuse Peg Tube feedings. Hospitalist stated he told her to Fuck off and gave her the middle finger. Also patient reportedly said if he didn't get his next dose of Morphine he was going to stop everything. Hospitalist noted he had been refusing the Peg Tube feedings and Accu-Checks. She further stated he had been denying the Peg Tube feedings because of diarrhea, he had been prescribed and administered Immodium without effectiveness, and nursing staff confirmed the diarrhea. Hospitalist stated patient allowed for an Accu-Check this morning which resulted in blood glucose level in the 40's. Attending Nurse reported patient tells medical he wants them to save his life but then doesn't let them do the things they need to do in order to save his life. Attending Nurse noted patient was mobile and in better state when he arrived to the hospital, had COVID so was being treated which resulted in the intubation, and now blames the hospital for current condition. She noted it's as if he's trying to control whatever he can since he perceives he hasn't had any while being in the hospital. She even told patient he has a right to be upset and stated she doesn't want him to . Nurse stated patient's personality was demanding/controlling prior to COVID events. Evaluation with patient took place with Attending Nurse in the room as patient would interact and engage with her. Patient would mouth words (has trach) and use hand motions for interactions and discussions. Nurse initially came in to inform patient she spoke with nutrition who put in a different diet order for Peg Tube feedings, and she would provide Morphine at next available time (noted he just got a dose) if he agreed and did the Peg Tube feeding. He said he would and stated he wanted to see the Morphine pill prior to administration which Nurse agreed to do. This clinician was straight forward and assertive in communication style. Asked if his goal was to continue as is which would mean he could likely in the hospital since refusing medical treatment. Inquired if he wanted to stay in the hospital which he denied. Explained that if he allowed for what is requested and felt to be medically necessary, he could improve, which would mean discharge. He was guarded and pessimistic about the hospital and staff. He commented on having 5 different doctors and everyone not explaining things all the time. Noted there had been concerns for his capacity/ability to understand things/if can make own decisions as a result and if felt not then looking at the state taking guardianship. Explained it seems he does have capacity and awareness. Also agreed with Nurse in terms of letting paola montes know he has a right to be upset and how medical staff still need to do their job in order to treat him and get him better. Patient was alert and oriented to self, person, place, and situation. Mood was irritable with congruent affect. He has been telling medication staff he wants them to save his life however not allowing for medical procedures and things. He presented guarded which based on Nurse report seems to be related to coming to the hospital in better condition with mobility/contracted COVID/now dealing with the fallout from medical treatment that stemmed from treating/managing the COVID. Patient did not appear to be responding to internal stimuli as evidenced by fair eye contact and answering questions appropriately when addressed. Thought processes were linear and organized. Conversational speech was difficult to ascertain due to trach but he still interacted by mouthing things and using hand gestures. Intellectual abilities are estimated to be average. Insight, judgment and impulse control were fair as evidenced by engaging with Nurse and this clinician. Looked patient up in the [employer] system. Did search from 2015-Present. Patient has 17 prescriptions (all Oxycodone), 4 prescribers, and 4 pharmacies. When looking him up there were 2 patient numbers but both were his birthday. He had 4 different addresses on file. The Oxycodone was prescribed (started at 5MG, increased to 10MG, then finally 15MG) from November 2016-December 2019. then the next prescription was April 2020 he received Oxycodone-Acetaminophen. Clinical Presentation: Refusing medical treatment Not getting [place] [facility] placement due to medical issues not being addressed as result of his refusal Has Capacity at this time Concerns for understanding of COVID Disease Process (related to both national understanding of it 3 months ago when patient first presented versus currently, as well has the hypoxia he suffered playing in to that) Impression/Plan: Patient is cleared from acute psychiatric services. He appears to maintain capacity given his engagement and awareness. There are concerns for some degree of lack of understanding of the COVID disease process due to hypoxia but also the fact that patient first presented about 3 months ago when nationally understanding the COVID disease process was still not clear. He may not have the ability to have a different perspective unless educated via explanation. Behavior Plan Recommendation is when there are going to be changes/needed procedures providing explanation ahead of time/prior to where providers and medical staff say "this is what is felt to be helpful," provide what doing and why, which offers his engagement to be part of decision making. There are also concerns which medical staff has also acknowledged for opiate dependence and withdrawal if abruptly stopped. There was already a decrease from Morphine every 3 hours to every 4 hours as needed. While patient is in the hospital it may be beneficial to continue weening off narcotic pain medications. Consulted with Dr. Farr regarding the management and care of patient. Attending Hospitalist aware of recommendations.
[2020-06-23] MEDS: AMINO AC/PROTEIN HYDR/WHEY PRO 11 GM/45 ML PKT PEG SCH (17:55)
--- NOTE | 2020-06-23 18:43 | PDOC PROGRESS REPORT ---
Subjective Date:: 06/23/20 Subjective:: Per admitting physician: "FREDDIE LAZO JR is a 60 year old male, past medical history of type 2 diabetes hypertension CHF narcotic dependence CKD who was recently discharged from [facility] April 19, 2020 after being admitted for 89 days secondary to acute respiratory failure from COVID pneumonia. He was discharged with a tracheostomy tube uncuffed. Before discharge he has been able to speak and eat and the plan was to eventually remove the tracheostomy at [facility]. Sent back to the emergency room for evaluation of shortness of breath. EMS was called by the facility because the patient was diaphoretic with a blood glucose of 30 staff administered 1 mg glucagon in a tube and a half of oral glucose prior to EMS arrival and recheck of blood glucose was 40. Upon EMS arrival patient was pale with diminished breath sounds so he was placed on 15 L O2 via nonrebreather O2 sats went up to 86% and blood glucose was 147 upon ED arrival. In the emergency room he apparently continued to be hypoxic hence a trach cuff was placed and he was put back on mechanical ventilation briefly. He was also noted to be hypotensive hence central line was placed by Dr. Jean-Baptiste. Patient was given IV fluids. Repeat chest x-ray showed improvement of his diffuse bibasilar opacities compared from previous chest x-ray. Dr. Chandler evaluated him in the ED who felt that he does not need ICU admission. He was given 4 L of IV fluids. He was eventually transitioned to tracheal collar and was maintaining his O2 saturation to 95%. Patient was then admitted for further management. WBC count 19.5 in the ED he was given 1 dose of aztreonam and vancomycin." Per Previous Physician: "05/14/2020 MUCOUS PLUGGING, ACUTE HYPOXIC RESPIRATORY FAILURE Patient was seen early on in rounds this morning. At the time patient was noted to sound congested. He however had been suctioned and apparently no further suctioning required at that time. I discussed with the patient the need to be able to give him medications either through an NG tube or PEG tube IV fluids or TPN or combination of all these however patient refused. Patient was new to me today and after discussing with the nurse I did find out that he had been refusing multiple modalities of treatment and management. About 30 minutes after saw this patient when he was still relatively stable a rapid response was called and apparently he went into respiratory distress. He was found to be hypoxic. By the time he got there he was cyanotic. His oxygen saturation was in the 60s also. He was 100% oxygen and his BiPAP setting was changed. Multiple attempts to oxygenate him failed. It was felt that patient will be better served in the intensive care unit. Field Service Technician [employer] was informed and Came to assess patient. Patient was transferred to the unit. Please see Dr. Hernández's notes for further details chest x-ray obtained reveals diffuse opacification in the left chest possibly due to extensive infiltrate atelectasis collapse pleural effusion with improved aeration in the right lung base. This is consistent with his lung findings which shows grossly diminished air entry." 05/20/2020 Patient sent out of the ICU yesterday afternoon. Per my discussion with Dr. Chandler, patient has frequent mucous plugging and needs to be lavaged and suctioned by respiratory therapy frequently. It is likely the patient will continue mucous plugging intermittently and may need to be sent back to the ICU at some point. He has been maintained on trach collar with intermittent ventilatory support. Patient was asking for increases in his narcotics and I discussed the risks of respiratory depression if we were to pursue this. We will keep his narcotics at the current dosing and frequency for now. 05/21/2020 Patient had a episode of mucous plugging which resolved with aggressive lavage and suctioning by RT. Patient also had a problem with his NG feeding tube where it was somewhat displaced and nursing replaced this infected follow-up chest x- ray To confirm location. Blood culture on 05/09 remains negative. Latest chest x-ray shows diffuse bilateral disease which could potentially be worse. Patient is calm and resting today and does not have any new complaints. 05/22/2020 Patient appears rather calm today until I entered the room. He then wrote on his marker board and mouthed words to me stating he wants IV narcotics and IV sedatives. I discussed with him that adding these medications could be detrimental to his respiratory status. We will keep his pain medication as it is for now. I believe he is gradually improving as respiratory therapy is doing a great job lavaging and suctioning out large mucous plugs daily. Perhaps if we do enough of this every day, patient will be able to wean from the ventilator and tolerate trach collar alone. 05/23/2020 I had an extensive discussion with the patient today regarding PEG tube placement and he repeatedly stated he wanted to speak to the doctor and I repeatedly told him I am the doctor. I asked him if he would like me to get the surgeon involved to place a PEG tube. He refused to answer me at this point and did not seem interested in any my recommendations. We will ask respiratory therapy if he can get CPT to break up mucous plugs, continue lavaging and suctioning, and continue attempting to wean from the vent. Hemoglobin showed an acute drop down to 6.4 and this was rechecked to reveal 6.9. We will transfuse 1 unit PRBC which may help with his oxygenation as well. Will need to be mindful of the extra volume this will provide and watch for volume overload. Blood cell count is higher while hemoglobin and platelets are lower. Calcium is significantly lower we will replete this both IV and oral. 05/24/2020 Patient is resting comfortably today. He is off IV antibiotics and I have discontinued his IV Benadryl in place of Benadryl capsules that can go through his NG tube. We are still waiting on the patient to decide if he wants a PEG tube to be placed. It is my understanding that he cannot go to an acute care facility for rehab until he has a definitive feeding tube placed and he cannot go to a regular SNF while he is requiring the vent. If the patient wants a PEG tube or if we can wean him from the vent, disposition can move forward. Respiratory therapy will continue to lavage and suction the patient regularly and weaning from the ventilator. I discussed this with nursing. Hemoglobin is higher and potassium is lower today. His chest x-ray looks noticeably improved per my read. 05/25/2020 Patient fully awake and alert today and states repeatedly that he wants a PEG tube placed. He states that his pain after procedures is only well controlled on Dilaudid and I stated I would give him a low-dose of Dilaudid available as needed afterwards. I have consulted general surgery discussed case with Dr. Small who is agreed to consult on the patient. Patient will have his PEG tube placed tomorrow and will be n.p.o. at midnight tonight. Tube feeds will need to be held. We will make sure the patient has adequate pain control afterwards. Case management will need to start aggressively applying the patient for LTAC facilities starting on Wednesday. 05/26/2020 Patient successfully had PEG tube placed. He is having some additional pain I have increased the frequency of his IV Dilaudid. He understands we will begin tapering this tomorrow. Respiratory status is approximately the same as before. He still requiring frequent ventilator support. Latest blood cultures are negative. Plan is for patient to go to [facility] in the next few days if he is accepted. 05/27/2020 Patient states his pain is well controlled and he would like to start transitioning from IV narcotics to oral narcotics in anticipation of going to LTAC. I have switched his Dilaudid to oral I will leave a smaller dose available for breakthrough pain. Patient states he is motivated to perform more aggressive rehab and he knows that this cannot be accomplished inpatient. Patient's breathing is about the same as it was yesterday. Patient still requiring ventilator support. 05/28/20 Patient was seen and examined at bedside. Complains of pain lower abdomen however physical exam not consistent with the amount of pain he is complaining of. He is also requesting for more IV pain medications. He is status post PEG tube placement postop day 1 currently tolerating tube feedings. No significant change on his pulmonary status. 05/29/20 Patient was seen and examined at bedside. No new complains. Asking if he can have clear soup, I told him it would not be advisable now. He is asking for more IV pain medications as usual. 05/30/20 Patient seen and examined. Complaining of anxiety. I have increased his Buspar to 10 BID. Swallow eval for tomorrow. 05/31/20 Patient was seen and examined at bedside. He apparently refused swallow eval that was ordered today. But later when I rounded on him he claimed that did not even come. It has been noted before the he refuses a lot of therapeutic interventions. He is stable otherwise on mechanical ventilation. 06/01/20 Patient was seen and examined at bedside. he is again asking on when he can do a swallow eval. I have told him this will be done on wednesday. He was also asking if he has a medication for his anxiety and again I told him that he has Buspar BID. He should not be started on Xanax or any other benzo. 06/02/20 PAtient was seen and examined at bedside. He was asleep after receiving vistaril for anxiety. I have asked the respiratory therapist to try and wean him off with PSV. however he desaturates so he was put back on SIMV. 06/03/20 Patient was seen and examined at bedside. He still has episodes of anxiety and vistaril seems to have helped. He had just received his dilaudid prior to my visit hence he was very sleepy and did not want to talk much. He failed swallow eval today. 06/04/20 Patient was seen and examined at bedside. No new complains, had PT today. Afebrile. PEG tube feeding on going. 06/11/20 Care resumed today. He is complaining of pain and wanted more pain medications which I refused to give him and then he refused to engage in anymore conversation. He does appear comfortable otherwise. Notes from previous week reviewed. He was transfused with 2 u PRNC due to anemia. Also underwent thoracentesis with removal of 800 ml pleural fluid. 06/12/20 He was seen and examined at bedside. He is still refusing lab work ups and repeat CT chest despite explaining the medial necessity for this. He refuses to engage in any more conversation. 06/13/20 He was seen and examined at bedside. HE is on 40% FIO2 on PRVC. He agreed to have blood drawn today and it showed a Hgb of 8.9 but a WBC count of 23.3. He remains afebrile and VS is stable. He still refuses to engage in any further discussion about his medical care. Per nursing had several episodes of diarrhea, C.diff was sent which was negative. 06/14/20 He was seen and examined at bedside. He appears comfortable in bed. Nurse reported that he refused to have his catheter changed. Also still having diarrhea, C.diff negative. He has refused a rectal tube, he was started on loperamide. He agreed to have his naidu replaced.UA showed large nitrite and leukocyte with >182 WBC. Urine culture pending. Will await culture and treat based on results. 06/15/20 He was seen and examined at bedside. He appears comfortable. He agreed to have a chest CT today which unfortunately showed moderate bilateral pleural effusions with bilateral multifocal pneumonia. I sent for a tracheal aspirate culture.I spoke to the pharmacist and reviewed the abx he had received so far. So far he has received ceftriaxone, cefepime, unasyn, dapto, linezolid, and vanc. Will await urine and tracheal aspirate culture. 06/16/20 Seen and examined at bedside. explained to him CT findings and the need to restart abx. Still awaiting tracheal aspirate result but his UA is growing E.cloacae sensitive to ceftri and I have started him on this. Still awaiting tracheal aspirate culture and sensitivity. Further weaning trail will likely fail due to pleural effusion and pneumonia seen on CT. He was again asking when he can eat food and I told him that his penumonia is likely ventilator and aspiration pneumonia so still not safe for him to eat food by mouth. 06/17/20 HE was seen and examined at bedside. He was very upset because he claims that the nurses were late giving him his pain medications. I have started him on ceftriaxone. He has Enterobacter cloacae growing in his urine staph aureus, sternotrophomonas maltophilia, Enterobacter cloacae growing in his sputum which is also sensitive to ceftriaxone. I explained to him that we would need to repeat chest x-ray as well as blood draws to monitor his response to treatment but he is refusing this again. I have spoken to Kendy from discharge planning regarding his disposition and I was told that they have sent out referrals to [id number] facilities because all the ones here in [place] has refused him. 06/18/2020 Patient transitioned under my care due to shift changes. Patient evaluated by myself on rounds. He is lying in bed with trach in place. His neighbor and friend is present in the room during evaluation. Patient complaints of discomfort in his chest which he relates as persistent for several weeks. EKG obtained, similar to EKG 04/23/2020. Informed the patient that we need to repeat chest x-ray and labs; pt refused again today. Discussed case with nurse, unaware of date of Naidu placement, if > 1 month, plan to change out. Patient has been compliant with medications and q4 blood pressure, but otherwise refusing any further interventions or studies. 06/19/2020 Patient seen on morning rounds. He was resting but awakened easily to his name. I again informed the patient of our need to get follow up tests/images/studies to monitor disease progression. Patient refuses and mouths at me "you pay for the studies then". I continued to explain to the patient that as long as he is in the hospital studies are indicated and I have ordered the studies and we will attempt to obtain studies daily. I again stressed the need for studies to the patient, he again denied. He did allow me to complete a minimal exam. Prior to my leaving the room the patient mouthed aggressively at me, though I was unable to understand what he said. He then waved me out of the room. Discussed with nurse. Pt continues to refuse vitals/labs/studies. 06/20/2020 Patient seen on morning rounds. I was contacted earlier in the morning by the nurse that the patient had episodes of emesis. Tube feeds were stopped last night due to nausea and emesis. Nausea was being treated with Zofran with m inimal relief. I went to the room to talk to the patient states 2-week history of nausea with recent onset emesis yesterday and last night. Patient has continually refused labs, imaging, and vital signs. I requested that I be able to obtain studies to help properly treat patient nausea and other diseases. Patient refused and demanded pain medication. I again requested that we be able to get studies specifically regarding onset nausea and vomiting, patient refused and asked that I leave the room. He did not allow me to complete physical exam today, thus physical exam limited. Following discussion with patient patient's nurse approached me and me that patient is now refusing tube feeds at this time. Continue to monitor his glucose if he is allowing it and vital signs as well. 06/21/2020 Patient continues to refuse studies including vitals. He is on longer vomiting. Discussed with nursing patient continues to refuse tube feeds for nutrition. Patient provided me with no complaints today. I again advised that he allow us to complete studies. He again refused and asked that I leave the room. Physical exam limited again. Continue to monitor his glucose if he is allowing it and vi rayne signs as well. 06/22/2020 Patient seen resting in bed. Per nursing note, patient agreed to VS assessment and lab draw this a.m.; blood cultures, UA, UC, CXR. Blood sugar 46 on accucheck, pt given dextrose per protocol; continues to decline tube feeds. On encounter today I again asked patient that we be able to complete pending workup, patient denied. I explained to the patient the need for further workup, he continued to deny. When I inquired about his refusal for tube feeds he stated that he wants to eat food, I explained to the patient the associated risk with oral intake and aspiration, encouraged tube feeds. Patient denied tube feeds. When asked if I can complete a physical exam patient denies. I was contacted by psych, they plan to re-evaluate patient's ability to make decisions today. 06/23/2020 Patient seen resting in bed. Jv case with nursing prior to seeing patient. Nurse tells me that patient has been denying tube feeds as well as Accu-Cheks. During evaluation the patient's nurse was in the room with me. I informed the patient that by refusing his tube feeds he is putting himself at risk of life- threatening seizures, arrhythmias and even . Patient expresses understanding. States that tube feeds give him severe diarrhea, nurse confirms this. Dietitian currently working on other tube-feed options for patient. Pt allows accu-check, this erads in 40s. Pt given dextrose IV. Ordered D5-NS at low rate to be ran if patient continues to deny tube-feeds. Patient demands morphine. Pt educated on risks associated with morphine given that he is not eating. Patient became angry with me, curse at me and proceeded to give me the middle finger. He again refused physical exam. As I was leaving pt was seen by psych. Discussed with psych after, no psychiatric intervention provided at this time. Pleas see psych note. Reason For Visit: MUCOUS PLUGGING, ACUTE HYPOXIC RESPIRATORY FAILURE Physical Exam Vital Signs: Temp Pulse Resp BP Pulse Ox 97.8 F 97 19 115/60 100 06/23/20 11:28 06/23/20 14:00 06/23/20 11:28 06/23/20 11:28 06/23/20 16:33 Intake & Output 06/22/20 06/23/20 06/24/20 06:59 06:59 06:59 Intake Total 50 50 Output Total 295 825 300 Balance -725 -775 -300 Weight 73.4 kg 72.3 kg Additional comments: General appearance: PRESENT: no acute distress, thin, other - Patient denies physical exam today, thus exam is limited to visualized evaluation only. Head exam: PRESENT: atraumatic, normocephalic Eye exam: PRESENT: EOMI Mouth exam: PRESENT: Dry Neck exam: PRESENT: tracheostomy Neurological exam: PRESENT: alert, awake, oriented to person, oriented to place, oriented to time, oriented to situation Psychiatric exam: PRESENT: agitated Results Laboratory Results: 06/22/20 05:30 06/22/20 05:30 04/20/20 04/23/20 04/23/20 09:00 01:55 01:55 Creatine Kinase < 20 L CK-MB (CK-2) 2.20 Troponin I < 0.012 0.082 NT-Pro-B Natriuret Pep [id number] H 04/23/20 04/23/20 04/23/20 05:58 08:22 14:50 Creatine Kinase < 20 L < 20 L CK-MB (CK-2) 2.24 Troponin I 0.066 NT-Pro-B Natriuret Pep 04/23/20 06/09/20 14:50 05:20 Creatine Kinase CK-MB (CK-2) 2.09 Troponin I 0.057 NT-Pro-B Natriuret Pep [id number] H Impressions: PICC Line Insertion 05/07/20 00:00 IMPRESSION: SUCCESSFUL PLACEMENT OF A 5 FR DUAL LUMEN 47 CM PICC IN THE LEFT BRACHIOCEPHALIC VEIN. KUB X-Ray 05/16/20 11:57 IMPRESSION: NG tube as described. Findings as described. Modified Barium Swallow 06/03/20 00:00 IMPRESSION: LARYNGEAL PENETRATION AND ASPIRATION ABOVE. HE WAS PLEASE SEE SPEECH PATHOLOGIST REPORT FOR OTHER FINDINGS AND RECOMMENDATIONS. Thoracentesis Ultrasound 06/08/20 14:12 IMPRESSION: SUCCESSFUL THORACENTESIS USING ULTRASOUND GUIDANCE. Chest X-Ray 06/08/20 19:30 IMPRESSION: Interval increase in opacity overlying the right mid to lower lung zone. Findings are nonspecific. Close attention on follow-up is recommended. CT chest could be considered for further evaluation if clinically indicated. Chest CT 06/15/20 00:00 IMPRESSION: Moderate bilateral pleural effusions with bilateral multifocal pneumonia. Mediastinal lymphadenopathy is probably reactive. Assessment and Plan - Diagnosis (1) Bilateral pneumonia Qualifiers: Pneumonia type: aspiration pneumonia Lung location: lower lobe of lung Is this a current diagnosis for this admission?: Yes Plan: Patient refused physical exam. Unable to evaluate lung sounds today. - CT chest 06/15 notable for moderate sized pleural effusion and bilateral pneumonia - Tracheal aspirate 06/15 positive for staph aureus, sternotrophomonas, Enterobacter cloacae similar to his previous sputum cultures - Ceftriaxone started 06/16 as per sensitivity. Patient continues to refuse repeat blood draws and CXR to monitor response to treatment, has refused previously as well. Patient made aware of need for studies to monitor disease progression/appropriate treatment. He expresses understanding and refuses further labs or imaging at this time. (2) Urinary tract infection Qualifiers: Urinary tract infection type: catheter-associated UTI Is this a current diagnosis for this admission?: Yes Plan: Chronic Naidu catheter most recently changed 06/14/20 - UC 06/14 + Enterobacter cloacae. Sensitive to ceftriaxone. - 06/13 WBC 23; has refused labs since. - Remains afebrile -Ceftriaxone started 06/16, last dose today. (3) Leukocytosis Qualifiers: Leukocytosis type: unspecified Qualified Code(s): D72.829 - Elevated white blood cell count, unspecified Is this a current diagnosis for this admission?: Yes Plan: WBC 13.5> 16.2-> 15.2-> 14.4-> 14.5> 23.3 -> 14.6 - Persistently afebrile with VSS. - Refused to repeat chest x-ray to assess for possible pneumonia. - Blood culture 05/09/2020 without growth in 5 days; refuses repeat BC. - Likely secondary to UTI, as above. - Continue Ceftriaxone as above As above, patient refusing furthering imaging or labs, unfortunately unable to identify or locate origin of infection at this time. Patient understanding of this and continues to refuse labs/imaging. (4) Respiratory failure, [id number] Qualifiers: Respiratory failure complication: hypoxia Qualified Code(s): J96.21 - Acute and chronic respiratory failure with hypoxia Is this a current diagnosis for this admission?: Yes Plan: Improved; maintaining oxygen saturations of 98% on FiO2 75%. - Continues to require vent PRVC setting. - Has a trach and on mechanical ventilation; multiple failed weaning trials. - CXR 06/08 Interval increase in opacity overlying the right middle to lower lung zones - Now s/p thoracentesis 06/08 with ~800 ml removed. - Pleural effusion w/ WBC 367, RBC 88. - LDH 138, Albumin 0.7, Glucose 174. - Cultures no growth. - Repeat CT 06/15 chest moderate bilateral pleural effusion and multifocal pneumonia (Ceftriaxone as above) - Continue with ventilator (5) Chronic pain Qualifiers: Chronic pain type: other chronic pain Qualified Code(s): G89.29 - Other chronic pain Is this a current diagnosis for this admission?: Yes Plan: Continued difficulty with managing patient's opiate dependence, chronic pain, desire for IV route, and hypoxia. - Previous provider notes reviewed - Morphine 10 mg via PEG q4h prn as per pain management recommendations. - This was adjusted to Morphine 7.5mg q3hrs with improvement in pt treatment toward nursing. - Pain management with recommendations to not renegotiate pain medications with the patient to maintain on this current 24-hour morphine dose. Pain medications to be held if patient is not receiving tube feeds due to risk. (6) Anxiety about health Is this a current diagnosis for this admission?: Yes Plan: As per previous providers on case and nursing patient with frequent anxiety attacks regarding his current state of health. - Continue buspar 10 BID - Utilize vistaril 25m q8prn during acute bouts. - Advised against benzo therapy. (7) Critical illness myopathy Is this a current diagnosis for this admission?: Yes Plan: With history of ICU and prolonged hospital stay - Given 3+ month hx hpspital admission would require extensive rehab - PT/OT/ST consulted - Pt continues to refuse rehab (8) Dysphagia Qualifiers: Dysphagia type: oropharyngeal phase Qualified Code(s): R13.12 - Dysphagia, oropharyngeal phase Is this a current diagnosis for this admission?: Yes Plan: Now with PEG - Most recent swallow eval 06/03/20, failed. - currently receiving feeding via PEG with free water flushes. - Na stable as per previous labs. - Unable to monitor due to lab refusal. Patient continues to refuse tube feeds. Demands that he have access to food by mouth today. Patient educated on the risk associated with oral intake and aspiration. Plan to continue with tube feeds. (9) Bacteremia due to Enterococcus Is this a current diagnosis for this admission?: Yes Plan: Resolved - 05/07 + BC enterococcus - 05/09 BC without growth > 5 days - Completed Abx course - TTE as recommended by ID pending, pt has refused. (10) MSSA bacteremia Is this a current diagnosis for this admission?: Yes Plan: Resolved, completed abx treatment - BC 05/07 + MSSA - BC 05/09 without growth > 5 days - Patient refusing repeat blood culture. - Patient refusing echocardiogram as recommended by ID. (11) Hyperglycemia due to type 2 diabetes mellitus Qualifiers: Diabetes mellitus jail insulin use: with jail use Qualified Code(s): E11.65 - Type 2 diabetes mellitus with hyperglycemia; Z79.4 - [facility] (current) use of insulin Is this a current diagnosis for this admission?: Yes Plan: Patient without hypoglycemia today on accucheck, likely because patient refusing tube feeds. - Tx'd with dextrose - Pt educated on the need of tube feeds and risk associated with hypoglycemic episodes. - Patient does not acknowledge information provided. - Hypoglycemic protocol in place (12) Acute kidney injury superimposed on chronic kidney disease Is this a current diagnosis for this admission?: Yes Plan: Resolved. - BUN/Creatinine 23/0.90 today (13) Acute metabolic encephalopathy Is this a current diagnosis for this admission?: Yes Plan: Resolved. (14) Debility Is this a current diagnosis for this admission?: Yes Plan: PT/OT/ST consulted though repeatedly refusing - Needs LTAC placement (15) Dependent on ventilator Is this a current diagnosis for this admission?: Yes Plan: O2 saturation 100% with FiO2 75. -Slowly wean this tolerated. -Rose Mary will faily secondary to bilateral pleural portion of multifocal pneumonia. - Discharge planning sending out referrals to [id number] facilities to take him; denies by all instate facilities (16) COVID-19 Is this a current diagnosis for this admission?: Yes Plan: -resolved but patient has suffered significant comorbidity from it - no indication to retest - continue vent support. Wean as tolerated (17) Nausea and vomiting Qualifiers: Vomiting type: unspecified Vomiting Intractability: non-intractable Qualified Code(s): R11.2 - Nausea with vomiting, unspecified Is this a current diagnosis for this admission?: Yes Plan: Resolved. - Treat with zofran - Plan Summary Summary: Patient with history refusing medical studies and treatment. Continues to refuse treatment and evaluation. Difficult to truly care for and manage patient due to his non-compliance and refusal of care. - Time Time Spent with patient: 35 or more minutes Medications reviewed and adjusted accordingly: Yes Anticipated Discharge Disposition: [facility] Anticipated Discharge Timeframe: NA
[2020-06-24] MEDS: INSULIN REG, HUMAN 100 UNIT/ML 3 ML VIAL (PYX) SUBCUT SCH ×4 (01:43→18:01)
[2020-06-24] MEDS: ONDANSETRON HCL INJ/PF 4 MG/2 ML SDV IV PRN ×5 (01:59→21:01)
[2020-06-24] MEDS: MORPHINE SULFATE 10 MG/5 ML ORAL SOLUTION UDCUP PO PRN ×5 (01:59→21:02)
[2020-06-24] MEDS: DIPHENHYDRAMINE HCL 50 MG/ML VIAL IV PRN ×2 (06:13→16:17)
[2020-06-24] MEDS: HYDROXYZINE HCL INJ 50 MG/1 ML VIAL IM PRN ×2 (06:13→23:27)
[2020-06-24] MEDS: IPRATROPIUM/ALBUTEROL 0.5-2.5 MG/3 ML AMPUL NEB PRN ×2 (08:49→20:09)
[2020-06-24] MEDS: ACETYLCYSTEINE 20% SOLN 800 MG/4 ML VIAL.NEB NEB SCH ×2 (08:49→20:09)
[2020-06-24] MEDS: CALCIUM CARBONATE 500 MG TAB.CHEW PEG SCH ×2 (09:48→17:47)
[2020-06-24] MEDS: BUSPIRONE HCL 10 MG TABLET PEG SCH ×2 (09:48→17:47)
[2020-06-24] MEDS: FUROSEMIDE ORAL SOLN 40 MG/5 ML UDCUP PEG SCH (09:51)
[2020-06-24] MEDS: AMINO AC/PROTEIN HYDR/WHEY PRO 11 GM/45 ML PKT PEG SCH ×2 (09:51→17:47)
[2020-06-24] MEDS: LOPERAMIDE HCL 2 MG CAPSULE PO SCH ×2 (09:54→17:46)
[2020-06-24] MEDS: NORMAL SALINE 10 ML SDV (SCHEDULED) IV SCH ×2 (09:55→21:04)
--- NOTE | 2020-06-24 18:15 | PDOC PROGRESS REPORT ---
Subjective Date:: 06/24/20 Subjective:: Per admitting physician: "FREDDIE LAZO JR is a 60 year old male, past medical history of type 2 diabetes hypertension CHF narcotic dependence CKD who was recently discharged from [facility] April 19, 2020 after being admitted for 89 days secondary to acute respiratory failure from COVID pneumonia. He was discharged with a tracheostomy tube uncuffed. Before discharge he has been able to speak and eat and the plan was to eventually remove the tracheostomy at [facility]. Sent back to the emergency room for evaluation of shortness of breath. EMS was called by the facility because the patient was diaphoretic with a blood glucose of 30 staff administered 1 mg glucagon in a tube and a half of oral glucose prior to EMS arrival and recheck of blood glucose was 40. Upon EMS arrival patient was pale with diminished breath sounds so he was placed on 15 L O2 via nonrebreather O2 sats went up to 86% and blood glucose was 147 upon ED arrival. In the emergency room he apparently continued to be hypoxic hence a trach cuff was placed and he was put back on mechanical ventilation briefly. He was also noted to be hypotensive hence central line was placed by Dr. Jean-Baptiste. Patient was given IV fluids. Repeat chest x-ray showed improvement of his diffuse bibasilar opacities compared from previous chest x-ray. Dr. Chandler evaluated him in the ED who felt that he does not need ICU admission. He was given 4 L of IV fluids. He was eventually transitioned to tracheal collar and was maintaining his O2 saturation to 95%. Patient was then admitted for further management. WBC count 19.5 in the ED he was given 1 dose of aztreonam and vancomycin." Per Previous Physician: "05/14/2020 MUCOUS PLUGGING, ACUTE HYPOXIC RESPIRATORY FAILURE Patient was seen early on in rounds this morning. At the time patient was noted to sound congested. He however had been suctioned and apparently no further suctioning required at that time. I discussed with the patient the need to be able to give him medications either through an NG tube or PEG tube IV fluids or TPN or combination of all these however patient refused. Patient was new to me today and after discussing with the nurse I did find out that he had been refusing multiple modalities of treatment and management. About 30 minutes after saw this patient when he was still relatively stable a rapid response was called and apparently he went into respiratory distress. He was found to be hypoxic. By the time he got there he was cyanotic. His oxygen saturation was in the 60s also. He was 100% oxygen and his BiPAP setting was changed. Multiple attempts to oxygenate him failed. It was felt that patient will be better served in the intensive care unit. Echocardiologist was informed and Came to assess patient. Patient was transferred to the unit. Please see Dr. Hernández's notes for further details chest x-ray obtained reveals diffuse opacification in the left chest possibly due to extensive infiltrate atelectasis collapse pleural effusion with improved aeration in the right lung base. This is consistent with his lung findings which shows grossly diminished air entry." 05/20/2020 Patient sent out of the ICU yesterday afternoon. Per my discussion with Dr. Chandler, patient has frequent mucous plugging and needs to be lavaged and suctioned by respiratory therapy frequently. It is likely the patient will continue mucous plugging intermittently and may need to be sent back to the ICU at some point. He has been maintained on trach collar with intermittent ventilatory support. Patient was asking for increases in his narcotics and I discussed the risks of respiratory depression if we were to pursue this. We will keep his narcotics at the current dosing and frequency for now. 05/21/2020 Patient had a episode of mucous plugging which resolved with aggressive lavage and suctioning by RT. Patient also had a problem with his NG feeding tube where it was somewhat displaced and nursing replaced this infected follow-up chest x- ray To confirm location. Blood culture on 05/09 remains negative. Latest chest x-ray shows diffuse bilateral disease which could potentially be worse. Patient is calm and resting today and does not have any new complaints. 05/22/2020 Patient appears rather calm today until I entered the room. He then wrote on his marker board and mouthed words to me stating he wants IV narcotics and IV sedatives. I discussed with him that adding these medications could be detrimental to his respiratory status. We will keep his pain medication as it is for now. I believe he is gradually improving as respiratory therapy is doing a great job lavaging and suctioning out large mucous plugs daily. Perhaps if we do enough of this every day, patient will be able to wean from the ventilator and tolerate trach collar alone. 05/23/2020 I had an extensive discussion with the patient today regarding PEG tube placement and he repeatedly stated he wanted to speak to the doctor and I repeatedly told him I am the doctor. I asked him if he would like me to get the surgeon involved to place a PEG tube. He refused to answer me at this point and did not seem interested in any my recommendations. We will ask respiratory therapy if he can get CPT to break up mucous plugs, continue lavaging and suctioning, and continue attempting to wean from the vent. Hemoglobin showed an acute drop down to 6.4 and this was rechecked to reveal 6.9. We will transfuse 1 unit PRBC which may help with his oxygenation as well. Will need to be mindful of the extra volume this will provide and watch for volume overload. Blood cell count is higher while hemoglobin and platelets are lower. Calcium is significantly lower we will replete this both IV and oral. 05/24/2020 Patient is resting comfortably today. He is off IV antibiotics and I have discontinued his IV Benadryl in place of Benadryl capsules that can go through his NG tube. We are still waiting on the patient to decide if he wants a PEG tube to be placed. It is my understanding that he cannot go to an acute care facility for rehab until he has a definitive feeding tube placed and he cannot go to a regular SNF while he is requiring the vent. If the patient wants a PEG tube or if we can wean him from the vent, disposition can move forward. Respiratory therapy will continue to lavage and suction the patient regularly and weaning from the ventilator. I discussed this with nursing. Hemoglobin is higher and potassium is lower today. His chest x-ray looks noticeably improved per my read. 05/25/2020 Patient fully awake and alert today and states repeatedly that he wants a PEG tube placed. He states that his pain after procedures is only well controlled on Dilaudid and I stated I would give him a low-dose of Dilaudid available as needed afterwards. I have consulted general surgery discussed case with Dr. Small who is agreed to consult on the patient. Patient will have his PEG tube placed tomorrow and will be n.p.o. at midnight tonight. Tube feeds will need to be held. We will make sure the patient has adequate pain control afterwards. Case management will need to start aggressively applying the patient for LTAC facilities starting on Wednesday. 05/26/2020 Patient successfully had PEG tube placed. He is having some additional pain I have increased the frequency of his IV Dilaudid. He understands we will begin tapering this tomorrow. Respiratory status is approximately the same as before. He still requiring frequent ventilator support. Latest blood cultures are negative. Plan is for patient to go to [facility] in the next few days if he is accepted. 05/27/2020 Patient states his pain is well controlled and he would like to start transitioning from IV narcotics to oral narcotics in anticipation of going to LTAC. I have switched his Dilaudid to oral I will leave a smaller dose available for breakthrough pain. Patient states he is motivated to perform more aggressive rehab and he knows that this cannot be accomplished inpatient. Patient's breathing is about the same as it was yesterday. Patient still requiring ventilator support. 05/28/20 Patient was seen and examined at bedside. Complains of pain lower abdomen however physical exam not consistent with the amount of pain he is complaining of. He is also requesting for more IV pain medications. He is status post PEG tube placement postop day 1 currently tolerating tube feedings. No significant change on his pulmonary status. 05/29/20 Patient was seen and examined at bedside. No new complains. Asking if he can have clear soup, I told him it would not be advisable now. He is asking for more IV pain medications as usual. 05/30/20 Patient seen and examined. Complaining of anxiety. I have increased his Buspar to 10 BID. Swallow eval for tomorrow. 05/31/20 Patient was seen and examined at bedside. He apparently refused swallow eval that was ordered today. But later when I rounded on him he claimed that did not even come. It has been noted before the he refuses a lot of therapeutic interventions. He is stable otherwise on mechanical ventilation. 06/01/20 Patient was seen and examined at bedside. he is again asking on when he can do a swallow eval. I have told him this will be done on wednesday. He was also asking if he has a medication for his anxiety and again I told him that he has Buspar BID. He should not be started on Xanax or any other benzo. 06/02/20 PAtient was seen and examined at bedside. He was asleep after receiving vistaril for anxiety. I have asked the respiratory therapist to try and wean him off with PSV. however he desaturates so he was put back on SIMV. 06/03/20 Patient was seen and examined at bedside. He still has episodes of anxiety and vistaril seems to have helped. He had just received his dilaudid prior to my visit hence he was very sleepy and did not want to talk much. He failed swallow eval today. 06/04/20 Patient was seen and examined at bedside. No new complains, had PT today. Afebrile. PEG tube feeding on going. 06/11/20 Care resumed today. He is complaining of pain and wanted more pain medications which I refused to give him and then he refused to engage in anymore conversation. He does appear comfortable otherwise. Notes from previous week reviewed. He was transfused with 2 u PRNC due to anemia. Also underwent thoracentesis with removal of 800 ml pleural fluid. 06/12/20 He was seen and examined at bedside. He is still refusing lab work ups and repeat CT chest despite explaining the medial necessity for this. He refuses to engage in any more conversation. 06/13/20 He was seen and examined at bedside. HE is on 40% FIO2 on PRVC. He agreed to have blood drawn today and it showed a Hgb of 8.9 but a WBC count of 23.3. He remains afebrile and VS is stable. He still refuses to engage in any further discussion about his medical care. Per nursing had several episodes of diarrhea, C.diff was sent which was negative. 06/14/20 He was seen and examined at bedside. He appears comfortable in bed. Nurse reported that he refused to have his catheter changed. Also still having diarrhea, C.diff negative. He has refused a rectal tube, he was started on loperamide. He agreed to have his naidu replaced.UA showed large nitrite and leukocyte with >182 WBC. Urine culture pending. Will await culture and treat based on results. 06/15/20 He was seen and examined at bedside. He appears comfortable. He agreed to have a chest CT today which unfortunately showed moderate bilateral pleural effusions with bilateral multifocal pneumonia. I sent for a tracheal aspirate culture.I spoke to the pharmacist and reviewed the abx he had received so far. So far he has received ceftriaxone, cefepime, unasyn, dapto, linezolid, and vanc. Will await urine and tracheal aspirate culture. 06/16/20 Seen and examined at bedside. explained to him CT findings and the need to restart abx. Still awaiting tracheal aspirate result but his UA is growing E.cloacae sensitive to ceftri and I have started him on this. Still awaiting tracheal aspirate culture and sensitivity. Further weaning trail will likely fail due to pleural effusion and pneumonia seen on CT. He was again asking when he can eat food and I told him that his penumonia is likely ventilator and aspiration pneumonia so still not safe for him to eat food by mouth. 06/17/20 HE was seen and examined at bedside. He was very upset because he claims that the nurses were late giving him his pain medications. I have started him on ceftriaxone. He has Enterobacter cloacae growing in his urine staph aureus, sternotrophomonas maltophilia, Enterobacter cloacae growing in his sputum which is also sensitive to ceftriaxone. I explained to him that we would need to repeat chest x-ray as well as blood draws to monitor his response to treatment but he is refusing this again. I have spoken to Kendy from discharge planning regarding his disposition and I was told that they have sent out referrals to [id number] facilities because all the ones here in [place] has refused him. 06/18/2020 Patient transitioned under my care due to shift changes. Patient evaluated by myself on rounds. He is lying in bed with trach in place. His neighbor and friend is present in the room during evaluation. Patient complaints of discomfort in his chest which he relates as persistent for several weeks. EKG obtained, similar to EKG 04/23/2020. Informed the patient that we need to repeat chest x-ray and labs; pt refused again today. Discussed case with nurse, unaware of date of Naidu placement, if > 1 month, plan to change out. Patient has been compliant with medications and q4 blood pressure, but otherwise refusing any further interventions or studies. 06/19/2020 Patient seen on morning rounds. He was resting but awakened easily to his name. I again informed the patient of our need to get follow up tests/images/studies to monitor disease progression. Patient refuses and mouths at me "you pay for the studies then". I continued to explain to the patient that as long as he is in the hospital studies are indicated and I have ordered the studies and we will attempt to obtain studies daily. I again stressed the need for studies to the patient, he again denied. He did allow me to complete a minimal exam. Prior to my leaving the room the patient mouthed aggressively at me, though I was unable to understand what he said. He then waved me out of the room. Discussed with nurse. Pt continues to refuse vitals/labs/studies. 06/20/2020 Patient seen on morning rounds. I was contacted earlier in the morning by the nurse that the patient had episodes of emesis. Tube feeds were stopped last night due to nausea and emesis. Nausea was being treated with Zofran with m inimal relief. I went to the room to talk to the patient states 2-week history of nausea with recent onset emesis yesterday and last night. Patient has continually refused labs, imaging, and vital signs. I requested that I be able to obtain studies to help properly treat patient nausea and other diseases. Patient refused and demanded pain medication. I again requested that we be able to get studies specifically regarding onset nausea and vomiting, patient refused and asked that I leave the room. He did not allow me to complete physical exam today, thus physical exam limited. Following discussion with patient patient's nurse approached me and me that patient is now refusing tube feeds at this time. Continue to monitor his glucose if he is allowing it and vital signs as well. 06/21/2020 Patient continues to refuse studies including vitals. He is on longer vomiting. Discussed with nursing patient continues to refuse tube feeds for nutrition. Patient provided me with no complaints today. I again advised that he allow us to complete studies. He again refused and asked that I leave the room. Physical exam limited again. Continue to monitor his glucose if he is allowing it and vi rayne signs as well. 06/22/2020 Patient seen resting in bed. Per nursing note, patient agreed to VS assessment and lab draw this a.m.; blood cultures, UA, UC, CXR. Blood sugar 46 on accucheck, pt given dextrose per protocol; continues to decline tube feeds. On encounter today I again asked patient that we be able to complete pending workup, patient denied. I explained to the patient the need for further workup, he continued to deny. When I inquired about his refusal for tube feeds he stated that he wants to eat food, I explained to the patient the associated risk with oral intake and aspiration, encouraged tube feeds. Patient denied tube feeds. When asked if I can complete a physical exam patient denies. I was contacted by psych, they plan to re-evaluate patient's ability to make decisions today. 06/23/2020 Patient seen resting in bed. Jv case with nursing prior to seeing patient. Nurse tells me that patient has been denying tube feeds as well as Accu-Cheks. During evaluation the patient's nurse was in the room with me. I informed the patient that by refusing his tube feeds he is putting himself at risk of life- threatening seizures, arrhythmias and even . Patient expresses understanding. States that tube feeds give him severe diarrhea, nurse confirms this. Dietitian currently working on other tube-feed options for patient. Pt allows accu-check, this erads in 40s. Pt given dextrose IV. Ordered D5-NS at low rate to be ran if patient continues to deny tube-feeds. Patient demands morphine. Pt educated on risks associated with morphine given that he is not eating. Patient became angry with me, curse at me and proceeded to give me the middle finger. He again refused physical exam. As I was leaving pt was seen by psych. Discussed with psych after, no psychiatric intervention provided at this time. Pleas see psych note. 06/24/2020 Patient was seen resting in bed. Nurse present at time of Evaluation. Patient has agreed to restarting new tube feeds., my hope is this type of tube feed will cause less diarrhea. He was given Imodium at time of tube feed. Last episode of emesis was yesterday. He is not nauseous today. He has been compliant with Accu-Cheks and vital signs. As long as he is receiving tube feeds and his Accu- Cheks are within normal limits he does not require fluids. He was given dextrose with normal saline he was denying tube feeds. He does remain significantly better mood today than previous visits. He allowed me to evaluate him. Last he would like to get a chest x-ray he did not deny or confirm. I have ordered repeat chest x-ray, blood cultures, labs in the morning with hopes that he will not deny these. No further complaints provided by patient. No complaints or concerns per nursing. Reason For Visit: MUCOUS PLUGGING, ACUTE HYPOXIC RESPIRATORY FAILURE Physical Exam Vital Signs: Temp Pulse Resp BP Pulse Ox 97.5 F 95 14 119/63 100 06/24/20 10:00 06/24/20 14:00 06/24/20 08:50 06/24/20 12:00 06/24/20 16:57 Intake & Output 06/23/20 06/24/20 06/25/20 06:59 06:59 06:59 Intake Total 50 864 509 Output Total 825 650 250 Balance -775 214 259 Weight 72.3 kg 74 kg Additional comments: General appearance: PRESENT: no acute distress, thin Head exam: PRESENT: atraumatic, normocephalic Eye exam: PRESENT: EOMI Mouth exam: PRESENT: moist Neck exam: PRESENT: tracheostomy Respiratory exam: PRESENT: rales, symmetrical, unlabored Cardiovascular exam: PRESENT: RRR, +S1, +S2 Pulses: PRESENT: normal radial pulses GI/Abdominal exam: PRESENT: soft, other - PEG tube in place. ABSENT: distended, guarding, tenderness Gentrourinary exam: PRESENT: indwelling catheter Musculoskeletal exam: PRESENT: other - Muscle atrophy/wasting. ABSENT: ambulatory, deformity, dislocation, full ROM Neurological exam: PRESENT: alert, awake, oriented to person, oriented to place, oriented to time, oriented to situation Skin exam: PRESENT: dry, intact, warm Results Laboratory Results: 06/22/20 05:30 06/22/20 05:30 04/20/20 04/23/20 04/23/20 09:00 01:55 01:55 Creatine Kinase < 20 L CK-MB (CK-2) 2.20 Troponin I < 0.012 0.082 NT-Pro-B Natriuret Pep [id number] H 04/23/20 04/23/20 04/23/20 05:58 08:22 14:50 Creatine Kinase < 20 L < 20 L CK-MB (CK-2) 2.24 Troponin I 0.066 NT-Pro-B Natriuret Pep 04/23/20 06/09/20 14:50 05:20 Creatine Kinase CK-MB (CK-2) 2.09 Troponin I 0.057 NT-Pro-B Natriuret Pep [id number] H Impressions: PICC Line Insertion 05/07/20 00:00 IMPRESSION: SUCCESSFUL PLACEMENT OF A 5 FR DUAL LUMEN 47 CM PICC IN THE LEFT BRACHIOCEPHALIC VEIN. KUB X-Ray 05/16/20 11:57 IMPRESSION: NG tube as described. Findings as described. Modified Barium Swallow 06/03/20 00:00 IMPRESSION: LARYNGEAL PENETRATION AND ASPIRATION ABOVE. HE WAS PLEASE SEE SPEECH PATHOLOGIST REPORT FOR OTHER FINDINGS AND RECOMMENDATIONS. Thoracentesis Ultrasound 06/08/20 14:12 IMPRESSION: SUCCESSFUL THORACENTESIS USING ULTRASOUND GUIDANCE. Chest X-Ray 06/08/20 19:30 IMPRESSION: Interval increase in opacity overlying the right mid to lower lung zone. Findings are nonspecific. Close attention on follow-up is recommended. CT chest could be considered for further evaluation if clinically indicated. Chest CT 06/15/20 00:00 IMPRESSION: Moderate bilateral pleural effusions with bilateral multifocal pneumonia. Mediastinal lymphadenopathy is probably reactive. Assessment and Plan - Diagnosis (1) Bilateral pneumonia Qualifiers: Pneumonia type: aspiration pneumonia Lung location: lower lobe of lung Is this a current diagnosis for this admission?: Yes Plan: Repeat CXR, blood culture and labs ordered today. Hopes pt agrees. Previously refused. - CT chest 06/15 notable for moderate sized pleural effusion and bilateral pneumonia - Tracheal aspirate 06/15 positive for staph aureus, sternotrophomonas, Enterobacter cloacae similar to his previous sputum cultures - Ceftriaxone started 06/16 as per sensitivity. Pt previously refused f/u studies repeatedly. Patient made aware of need for studies to monitor disease progression/appropriate treatment. He expresses understanding and refuses further labs or imaging at this time. (2) Urinary tract infection Qualifiers: Urinary tract infection type: catheter-associated UTI Is this a current diagnosis for this admission?: Yes Plan: Chronic Naidu catheter most recently changed 06/14/20 - UC 06/14 + Enterobacter cloacae. Sensitive to ceftriaxone. - 06/13 WBC 23; has refused labs since. - Remains afebrile -Ceftriaxone started 06/16 - 06/23. (3) Leukocytosis Qualifiers: Leukocytosis type: unspecified Qualified Code(s): D72.829 - Elevated white blood cell count, unspecified Is this a current diagnosis for this admission?: Yes Plan: WBC 13.5> 16.2-> 15.2-> 14.4-> 14.5> 23.3 -> 14.6 (06/22) - Persistently afebrile with VSS. - Refused to repeat chest x-ray to assess for possible pneumonia. - Blood culture 05/09/2020 without growth in 5 days; refuses repeat BC. - Likely secondary to UTI, as above. - Continue Ceftriaxone as above As above, patient refusing furthering imaging or labs, unfortunately unable to identify or locate origin of infection at this time. Patient understanding of this and continues to refuse labs/imaging. (4) Respiratory failure, [id number] Qualifiers: Respiratory failure complication: hypoxia Qualified Code(s): J96.21 - Acute and chronic respiratory failure with hypoxia Is this a current diagnosis for this admission?: Yes Plan: Improved; maintaining oxygen saturations of 98% on FiO2 75%. - Continues to require vent PRVC setting. - Has a trach and on mechanical ventilation; multiple failed weaning trials. - CXR 06/08 Interval increase in opacity overlying the right middle to lower lung zones - Now s/p thoracentesis 06/08 with ~800 ml removed. - Pleural effusion w/ WBC 367, RBC 88. - LDH 138, Albumin 0.7, Glucose 174. - Cultures no growth. - Repeat CT 06/15 chest moderate bilateral pleural effusion and multifocal pneumonia (Ceftriaxone as above) - Continue with ventilator (5) Chronic pain Qualifiers: Chronic pain type: other chronic pain Qualified Code(s): G89.29 - Other chronic pain Is this a current diagnosis for this admission?: Yes Plan: Continued difficulty with managing patient's opiate dependence, chronic pain, desire for IV route, and hypoxia. - Previous provider notes reviewed - Morphine 10 mg via PEG q4h prn as per pain management recommendations. - This was adjusted to Morphine 7.5mg q3hrs with improvement in pt treatment toward nursing. - Pain management with recommendations to not renegotiate pain medications with the patient to maintain on this current 24-hour morphine dose. Pain medications to be held if patient is not receiving tube feeds due to risk. Pain medications may be administered if pt receiving tube feeds (6) Anxiety about health Is this a current diagnosis for this admission?: Yes Plan: As per previous providers on case and nursing patient with frequent anxiety attacks regarding his current state of health. - Continue buspar 10 BID - Utilize vistaril 25m q8prn during acute bouts. - Advised against benzo therapy. (7) Critical illness myopathy Is this a current diagnosis for this admission?: Yes Plan: With history of ICU and prolonged hospital stay - Given 3+ month hx hpspital admission would require extensive rehab - PT/OT/ST consulted - Pt continues to refuse rehab (8) Dysphagia Qualifiers: Dysphagia type: oropharyngeal phase Qualified Code(s): R13.12 - Dysphagia, oropharyngeal phase Is this a current diagnosis for this admission?: Yes Plan: Now with PEG - Most recent swallow eval 06/03/20, failed. - currently receiving feeding via PEG with free water flushes. - Na stable as per previous labs. - Unable to monitor due to lab refusal. Patient receiving tube feeds as of today. Previously refused tube feeds due to diarrhea. Given Imodium prior to tube feeds with hopes this will prevent diarrhea. (9) Bacteremia due to Enterococcus Is this a current diagnosis for this admission?: Yes Plan: Resolved - 05/07 + BC enterococcus - 05/09 BC without growth > 5 days - Completed Abx course - TTE as recommended by ID pending, pt has refused. (10) MSSA bacteremia Is this a current diagnosis for this admission?: Yes Plan: Resolved, completed abx treatment - BC 05/07 + MSSA - BC 05/09 without growth > 5 days - Patient refusing repeat blood culture. - Patient refusing echocardiogram as recommended by ID. 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 - Tx'd with dextrose - Pt educated on the need of tube feeds and risk associated with hypoglycemic episodes. - Patient does not acknowledge information provided. - Hypoglycemic protocol in place (12) Acute kidney injury superimposed on chronic kidney disease Is this a current diagnosis for this admission?: Yes Plan: Resolved. - BUN/Creatinine 23/0.90 today (13) Acute metabolic encephalopathy Is this a current diagnosis for this admission?: Yes Plan: Resolved. (14) Debility Is this a current diagnosis for this admission?: Yes Plan: PT/OT/ST consulted though repeatedly refusing - Needs LTAC placement (15) Dependent on ventilator Is this a current diagnosis for this admission?: Yes Plan: O2 saturation 100% with FiO2 75. -Slowly wean this tolerated. -Rose Mary will faily secondary to bilateral pleural portion of multifocal pneumonia. - Discharge planning sending out referrals to [id number] facilities to take him; denies by all instate facilities (16) COVID-19 Is this a current diagnosis for this admission?: Yes Plan: -resolved but patient has suffered significant comorbidity from it - no indication to retest - continue vent support. Wean as tolerated (17) Nausea and vomiting Qualifiers: Vomiting type: unspecified Vomiting Intractability: non-intractable Qualified Code(s): R11.2 - Nausea with vomiting, unspecified Is this a current diagnosis for this admission?: Yes Plan: No NV today. Though comes in wave. Shelby WHITE. - Plan Summary Summary: Patient with history refusing medical studies and treatment. Continues to refuse treatment and evaluation. Difficult to truly care for and manage patient due to his non-compliance and refusal of care. - Time Time Spent with patient: Less than 15 minutes Medications reviewed and adjusted accordingly: Yes Anticipated Discharge Disposition: Long-Term Care Facility Anticipated Discharge Timeframe: NA
[2020-06-24] MEDS: DEXTROSE 5%-1/2 NORMAL SALINE 1,000 ML IV PRN (22:20)
[2020-06-25] MEDS: MORPHINE SULFATE 10 MG/5 ML ORAL SOLUTION UDCUP PO PRN ×3 (00:05→15:23)
[2020-06-25] MEDS: DIPHENHYDRAMINE HCL 50 MG/ML VIAL IV PRN ×2 (00:21→09:58)
[2020-06-25] MEDS: INSULIN REG, HUMAN 100 UNIT/ML 3 ML VIAL (PYX) SUBCUT SCH ×4 (01:02→17:54)
[2020-06-25] MEDS: ONDANSETRON HCL INJ/PF 4 MG/2 ML SDV IV PRN (01:40)
[2020-06-25] MEDS: ACETAMINOPHEN SOLN 325 MG/10.15 ML UDCUP PO PRN (01:40)
[2020-06-25] MEDS: IPRATROPIUM/ALBUTEROL 0.5-2.5 MG/3 ML AMPUL NEB PRN ×3 (04:10→22:02)
--- NOTE | 2020-06-25 08:39 | RADIOLOGY REPORT (SQ) ---
EXAM DESCRIPTION: CHEST SINGLE VIEW IMAGES COMPLETED DATE/TIME: 06/24/2020 7:01 pm REASON FOR STUDY: History pneumonia COMPARISON: CT angio chest 06/15/2020 Chest films 06/08/2020, 05/25/2020, 05/21/2020 EXAM PARAMETERS: NUMBER OF VIEWS: One view. TECHNIQUE: Single frontal radiographic view of the chest acquired. RADIATION DOSE: NA LIMITATIONS: None. FINDINGS: LUNGS AND PLEURA: Hazy opacity over the right and left chest, question small bilateral ple ural effusions. No change in diffuse alveolar and interstitial infiltrates. No pneumothorax. MEDIASTINUM AND HILAR STRUCTURES: No masses. Contour normal. HEART AND VASCULAR STRUCTURES: No cardiomegaly BONES: No acute findings. HARDWARE: Tracheostomy tube tip midtrachea. Left-sided PICC line tip superior vena cava. Lower cerv ical fusion hardware OTHER: No other significant finding. IMPRESSION: Small bilateral pleural effusions Stable diffuse bilateral airspace disease TECHNICAL DOCUMENTATION: JOB ID: [id number] 2010 [employer]- All Rights Reserved Reading location - IP/workstation name: [email or web address]
[2020-06-25] MEDS: ACETYLCYSTEINE 20% SOLN 800 MG/4 ML VIAL.NEB NEB SCH ×2 (08:49→22:02)
[2020-06-25] MEDS: BUSPIRONE HCL 10 MG TABLET PEG SCH ×2 (09:56→17:37)
[2020-06-25] MEDS: LOPERAMIDE HCL 2 MG CAPSULE PO SCH ×2 (09:56→17:37)
[2020-06-25] MEDS: CALCIUM CARBONATE 500 MG TAB.CHEW PEG SCH ×2 (09:56→17:37)
[2020-06-25] MEDS: NORMAL SALINE 10 ML SDV (SCHEDULED) IV SCH ×2 (09:57→22:05)
[2020-06-25] MEDS: FUROSEMIDE ORAL SOLN 40 MG/5 ML UDCUP PEG SCH (10:09)
[2020-06-25] MEDS: AMINO AC/PROTEIN HYDR/WHEY PRO 11 GM/45 ML PKT PEG SCH ×2 (10:10→17:37)
[2020-06-25] MEDS: SCOPOLAMINE HYDROBROMIDE 1.5 MG PATCH.TD72 TD SCH (10:11)
--- NOTE | 2020-06-25 17:22 | PDOC PROGRESS REPORT ---
Subjective Date:: 06/25/20 Subjective:: Patient resting on the ventilator. Tracheostomy tube in place. He appears quite sullen compared to the last time I saw him several weeks ago. Reason For Visit: MUCOUS PLUGGING, ACUTE HYPOXIC RESPIRATORY FAILURE Physical Exam Vital Signs: Temp Pulse Resp BP Pulse Ox 98.2 F 102 H 18 123/61 97 06/25/20 15:20 06/25/20 15:20 06/25/20 15:20 06/25/20 15:20 06/25/20 16:00 Intake & Output 06/24/20 06/25/20 06/26/20 06:59 06:59 06:59 Intake Total 864 509 Output Total 650 750 Balance 214 -241 Weight 74 kg 74 kg General appearance: PRESENT: no acute distress, cooperative, thin Head exam: PRESENT: atraumatic, normocephalic Eye exam: PRESENT: conjunctiva pale Ear exam: PRESENT: normal external ear exam. ABSENT: bleeding, drainage Mouth exam: PRESENT: dry mucosa, tongue midline Respiratory exam: PRESENT: prolonged expiratory phas, rhonchi - Diffuse coarse rhonchi bilaterally, symmetrical, unlabored. ABSENT: tachypnea, wheezes Cardiovascular exam: PRESENT: RRR, +S1, +S2. ABSENT: bradycardia, diastolic murmur, irregular rhythm, systolic murmur, tachycardia GI/Abdominal exam: PRESENT: normal bowel sounds, soft, other - PEG tube in place blood. ABSENT: tenderness Rectal exam: PRESENT: deferred Gentrourinary exam: PRESENT: indwelling catheter Extremities exam: ABSENT: pedal edema Musculoskeletal exam: ABSENT: deformity, dislocation Neurological exam: PRESENT: alert, awake, oriented to person, oriented to place, oriented to situation. ABSENT: altered Psychiatric exam: PRESENT: depressed - Very flat affect. ABSENT: agitated, anxious Focused psych exam: ABSENT: delusional, paranoid, restlessness Skin exam: PRESENT: dry, pallor, warm Results Laboratory Results: 06/22/20 05:30 06/22/20 05:30 04/20/20 04/23/20 04/23/20 09:00 01:55 01:55 Creatine Kinase < 20 L CK-MB (CK-2) 2.20 Troponin I < 0.012 0.082 NT-Pro-B Natriuret Pep 54097 H 04/23/20 04/23/20 04/23/20 05:58 08:22 14:50 Creatine Kinase < 20 L < 20 L CK-MB (CK-2) 2.24 Troponin I 0.066 NT-Pro-B Natriuret Pep 04/23/20 06/09/20 14:50 05:20 Creatine Kinase CK-MB (CK-2) 2.09 Troponin I 0.057 NT-Pro-B Natriuret Pep [id number] H Impressions: PICC Line Insertion 05/07/20 00:00 IMPRESSION: SUCCESSFUL PLACEMENT OF A 5 FR DUAL LUMEN 47 CM PICC IN THE LEFT BRACHIOCEPHALIC VEIN. KUB X-Ray 05/16/20 11:57 IMPRESSION: NG tube as described. Findings as described. Modified Barium Swallow 06/03/20 00:00 IMPRESSION: LARYNGEAL PENETRATION AND ASPIRATION ABOVE. HE WAS PLEASE SEE SPEECH PATHOLOGIST REPORT FOR OTHER FINDINGS AND RECOMMENDATIONS. Thoracentesis Ultrasound 06/08/20 14:12 IMPRESSION: SUCCESSFUL THORACENTESIS USING ULTRASOUND GUIDANCE. Chest CT 06/15/20 00:00 IMPRESSION: Moderate bilateral pleural effusions with bilateral multifocal pneumonia. Mediastinal lymphadenopathy is probably reactive. Chest X-Ray 06/24/20 00:00 IMPRESSION: Small bilateral pleural effusions Stable diffuse bilateral airspace disease Assessment and Plan - Diagnosis (1) Bilateral pneumonia Qualifiers: Pneumonia type: aspiration pneumonia Lung location: lower lobe of lung Is this a current diagnosis for this admission?: Yes Plan: Repeat CXR, blood culture and labs ordered today. Hopes pt agrees. Previously refused. - CT chest 06/15 notable for moderate sized pleural effusion and bilateral pneumonia - Tracheal aspirate 06/15 positive for staph aureus, sternotrophomonas, Enterobacter cloacae similar to his previous sputum cultures - Ceftriaxone started 06/16 as per sensitivity. Pt previously refused f/u studies repeatedly. Patient made aware of need for studies to monitor disease progression/appropriate treatment. He expresses understanding and refuses further labs or imaging at this time. 06/25/2020 Still with significant congestion and abnormal x-ray. It appears that he completed a course of ceftriaxone and recently had a course of Zyvox. He originally had an infection with COVID-19 and has had complications with dysphagia and aspiration during his hospitalization. He is still ventilator dependent. We will continue to monitor closely. (2) Urinary tract infection Qualifiers: Urinary tract infection type: catheter-associated UTI Is this a current diagnosis for this admission?: Yes Plan: Chronic Varner catheter most recently changed 06/14/20 - UC 06/14 + Enterobacter cloacae. Sensitive to ceftriaxone. - 06/13 WBC 23; has refused labs since. - Remains afebrile -Ceftriaxone started 06/16 - 06/23. 06/25/2020 Antibiotic therapy completed as above (3) Leukocytosis Qualifiers: Leukocytosis type: unspecified Qualified Code(s): D72.829 - Elevated white blood cell count, unspecified Is this a current diagnosis for this admission?: Yes Plan: WBC 13.5> 16.2-> 15.2-> 14.4-> 14.5> 23.3 -> 14.6 (06/22) - Persistently afebrile with VSS. - Refused to repeat chest x-ray to assess for possible pneumonia. - Blood culture 05/09/2020 without growth in 5 days; refuses repeat BC. - Likely secondary to UTI, as above. - Continue Ceftriaxone as above As above, patient refusing furthering imaging or labs, unfortunately unable to identify or locate origin of infection at this time. Patient understanding of this and continues to refuse labs/imaging. 06/25/2020 The last blood count that the patient allowed to be drawn was on June 22. White blood cell count was 14.6 as noted above. He has not allowed any further blood work to be drawn. (4) Acute on chronic respiratory failure with hypoxia and hypercapnia Is this a current diagnosis for this admission?: Yes Plan: Tenuously improved; now maintaining oxygen saturations of 98% on FiO2 80%. Con tinues to require vent PRVC setting. Has a trach and on mechanical ventilation; multiple failed weaning trials. Has required increased FiO2 to maintain SpO2 over the last 24-36 hours. CXR showed significantly increased right pleural effusion. Persistent patchy airspace opacities in both lungs; slight improvement in the left upper lobe. Repeat CXR w/ Interval increase in opacity overlying the right middle to lower lung zones; recommend CT chest follow-up. ABG resulted pH 7.31, pCO2 72.8, pO2 42.5, HCO3 35.8 was obtained shortly after desaturation event requiring short period of BVM while making adjustments to ventilator equipment. Repeat ABG on AVAPS/FiO2 100% pH 7.39, pCO2 64.6, pO2 62.3, HCO3 38.2 Placed back on Vent/FiO2 100% pH 7.36, pCO2 66.2, pO2 102.5, HCO3 38.8 Now s/p thoracentesis w/ ~800 ml removed. Pleural effusion w/ WBC 367, RBC 88. LDH 138, Albumin 0.7, Glucose 174. Cultures no growth at [address] chest pending; patient continues to refuse. Cautiously diuresed with IV furosemide; excellent urinary output. Unfortunately, refusing labs to assess K and renal function. Will resume his home dose furosemide 20 mg po daily as peripheral edema has resolved. Pleural effusion possibly related to CHF (echocardiogram (03/27/2020) shows LVEF 35 to 40%) vs infectious process (HAP/Aspiration PNA). WBC w/ gradual downward trend. Remains afebrile. Will hold on abx for now. Improved; maintaining oxygen saturations of 98% on FiO2 75%. - Continues to require vent PRVC setting. - Has a trach and on mechanical ventilation; multiple failed weaning trials. - CXR 06/08 Interval increase in opacity overlying the right middle to lower lung zones - Now s/p thoracentesis 06/08 with ~800 ml removed. - Pleural effusion w/ WBC 367, RBC 88. - LDH 138, Albumin 0.7, Glucose 174. - Cultures no growth. - Repeat CT 06/15 chest moderate bilateral pleural effusion and multifocal pneumonia (Ceftriaxone as above) - Continue with ventilator 06/25/2020 Continue ventilator support. Chest x-ray yesterday still shows bilateral infiltrative process. (5) Chronic pain Qualifiers: Chronic pain type: other chronic pain Qualified Code(s): G89.29 - Other chronic pain Is this a current diagnosis for this admission?: Yes Plan: Continued difficulty with managing patient's opiate dependence, chronic pain, desire for IV route, and hypoxia. - Previous provider notes reviewed - Morphine 10 mg via PEG q4h prn as per pain management recommendations. - This was adjusted to Morphine 7.5mg q3hrs with improvement in pt treatment toward nursing. - Pain management with recommendations to not renegotiate pain medications with the patient to maintain on this current 24-hour morphine dose. Pain medications to be held if patient is not receiving tube feeds due to risk. Pain medications may be administered if pt receiving tube feeds No changes in the current treatment plan (6) Anxiety about health Is this a current diagnosis for this admission?: Yes Plan: As per previous providers on case and nursing patient with frequent anxiety attacks regarding his current state of health. - Continue buspar 10 BID - Utilize vistaril 25m q8prn during acute bouts. - Advised against benzo therapy. 06/25/2020 We will revisit the topic of depression and possible use of antidepressant medication (7) Critical illness myopathy Is this a current diagnosis for this admission?: Yes Plan: With history of ICU and prolonged hospital stay - Given 3+ month hx hpspital admission would require extensive rehab - PT/OT/ST consulted - Pt continues to refuse rehab 06/25/2020 as above (8) Dysphagia Qualifiers: Dysphagia type: oropharyngeal phase Qualified Code(s): R13.12 - Dysphagia, oropharyngeal phase Is this a current diagnosis for this admission?: Yes Plan: Now with PEG - Most recent swallow eval 06/03/20, failed. - currently receiving feeding via PEG with free water flushes. - Na stable as per previous labs. - Unable to monitor due to lab refusal. Patient receiving tube feeds as of today. Previously refused tube feeds due to diarrhea. Given Imodium prior to tube feeds with hopes this will prevent diarrhea. 06/25/2020 Nursing reports that the patient has declined tube feeds at this time. (9) Bacteremia due to Enterococcus Is this a current diagnosis for this admission?: Yes Plan: Resolved - 05/07 + BC enterococcus - 05/09 BC without growth > 5 days - Completed Abx course - TTE as recommended by ID pending, pt has refused. No further intervention at this time (10) MSSA bacteremia Is this a current diagnosis for this admission?: Yes Plan: Resolved, completed abx treatment - BC 05/07 + MSSA - BC 05/09 without growth > 5 days - Patient refusing repeat blood culture. - Patient refusing echocardiogram as recommended by ID. 06/25/2020-as above (11) Hyperglycemia due to type 2 diabetes mellitus Qualifiers: Diabetes mellitus superintendent terminal insulin use: with half-way use Qualified Code(s): E11.65 - Type 2 diabetes mellitus with hyperglycemia; Z79.4 - [facility] (current) use of insulin Is this a current diagnosis for this admission?: Yes Plan: Patient without hypoglycemia today on accucheck, likely because patient refusing tube feeds. - Tx'd with dextrose - Pt educated on the need of tube feeds and risk associated with hypoglycemic episodes. - Patient does not acknowledge information provided. - Hypoglycemic protocol in place 06/25/2020 Patient is allowing Accu-Cheks. Last Accu-Cheks were within the normal range fo r the most part. Need to monitor for hypoglycemia with the patient refusing tube feeds. (12) Acute kidney injury superimposed on chronic kidney disease Is this a current diagnosis for this admission?: Yes Plan: Resolved. - BUN/Creatinine 23/0.90 today 06/25/2020 Per last blood work GFR remains greater than 60 (13) Acute metabolic encephalopathy Is this a current diagnosis for this admission?: Yes Plan: Resolved. Primarily the result of infection but multiple other comorbidities likely contributing. Currently resolved. (14) Debility Is this a current diagnosis for this admission?: Yes Plan: PT/OT/ST consulted though repeatedly refusing - Needs LTAC placement (15) Dependent on ventilator Is this a current diagnosis for this admission?: Yes Plan: O2 saturation 100% with FiO2 75. -Slowly wean this tolerated. -Rose Mary will faily secondary to bilateral pleural portion of multifocal pneumonia. - Discharge planning sending out referrals to [id number] facilities to take him; denies by all instate facilities 06/25/2020 Would benefit from placement at a long-term acute care hospital for long-term ventilator weaning (16) Nausea and vomiting Qualifiers: Vomiting type: unspecified Vomiting Intractability: non-intractable Qualified Code(s): R11.2 - Nausea with vomiting, unspecified Is this a current diagnosis for this admission?: Yes Plan: No NV today. Though comes in wave. Shelby BORRERON. 06/25/2020-stable/no changes (17) Malnutrition Qualifiers: Malnutrition type: protein-calorie malnutrition Protein-calorie malnutrition severity: severe Qualified Code(s): E43 - Unspecified severe protein-calorie malnutrition Is this a current diagnosis for this admission?: Yes Plan: Improving Now on Tube Feeds RD following. 06/25/2020 For the most part has been refusing tube feeds. Unable to correct malnutrition if the patient does not allow tube feeds to infuse (18) Tracheostomy in place Is this a current diagnosis for this admission?: Yes Plan: Continue tracheostomy care. Aggressive pulmonary toileting. 06/25/2020-routine tracheostomy care by nursing and respiratory therapy (19) Hypotension Qualifiers: Hypotension type: unspecified hypotension type Qualified Code(s): I95.9 - Hypotension, unspecified Is this a current diagnosis for this admission?: Yes Plan: Present on admission. Resolved (20) Candiduria Is this a current diagnosis for this admission?: Yes Plan: Resolved. - Plan Summary Summary: Patient with history refusing medical studies and treatment. Continues to refuse treatment and evaluation. Difficult to truly care for and manage patient due to his non-compliance and refusal of care. - Time Time Spent with patient: 15-24 minutes Medications reviewed and adjusted accordingly: Yes Anticipated Discharge Disposition: LTACH Anticipated Discharge Timeframe: when bed available
[2020-06-25] MEDS: DEXTROSE 5%-1/2 NORMAL SALINE 1,000 ML IV PRN (17:50)
[2020-06-26] MEDS: DIPHENHYDRAMINE HCL 50 MG/ML VIAL IV PRN ×3 (00:11→21:50)
[2020-06-26] MEDS: INSULIN REG, HUMAN 100 UNIT/ML 3 ML VIAL (PYX) SUBCUT SCH ×4 (00:15→17:46)
[2020-06-26] MEDS: HYDROXYZINE HCL INJ 50 MG/1 ML VIAL IM PRN ×2 (03:36→21:47)
[2020-06-26] MEDS: ONDANSETRON HCL INJ/PF 4 MG/2 ML SDV IV PRN ×2 (03:36→21:50)
[2020-06-26] MEDS: MORPHINE SULFATE 10 MG/5 ML ORAL SOLUTION UDCUP PO PRN ×4 (06:31→12:40)
[2020-06-26] MEDS: IPRATROPIUM/ALBUTEROL 0.5-2.5 MG/3 ML AMPUL NEB PRN ×3 (06:45→21:21)
[2020-06-26] MEDS: ACETYLCYSTEINE 20% SOLN 800 MG/4 ML VIAL.NEB NEB SCH ×2 (08:19→21:21)
[2020-06-26] MEDS: AMINO AC/PROTEIN HYDR/WHEY PRO 11 GM/45 ML PKT PEG SCH ×2 (09:37→17:55)
[2020-06-26] MEDS: FUROSEMIDE ORAL SOLN 40 MG/5 ML UDCUP PEG SCH (09:37)
[2020-06-26] MEDS: LOPERAMIDE HCL 2 MG CAPSULE PO SCH ×2 (09:37→17:55)
[2020-06-26] MEDS: BUSPIRONE HCL 10 MG TABLET PEG SCH ×2 (09:38→17:55)
[2020-06-26] MEDS: NORMAL SALINE 10 ML SDV (SCHEDULED) IV SCH ×2 (09:38→21:50)
[2020-06-26] MEDS: DEXTROSE 5%-1/2 NORMAL SALINE 1,000 ML IV PRN (14:10)
--- NOTE | 2020-06-26 15:11 | PDOC PROGRESS REPORT ---
Subjective Date:: 06/26/20 Subjective:: Patient resting in bed. Still declining tube feeds. Reason For Visit: MUCOUS PLUGGING, ACUTE HYPOXIC RESPIRATORY FAILURE Physical Exam Vital Signs: Temp Pulse Resp BP Pulse Ox 97.6 F 88 13 125/73 100 06/26/20 10:00 06/26/20 14:00 06/26/20 08:21 06/26/20 08:10 06/26/20 12:00 Intake & Output 06/25/20 06/26/20 06/27/20 06:59 06:59 06:59 Intake Total 619 376 7062 Output Total 750 575 Balance -545 821 2163 Weight 74 kg 73 kg General appearance: PRESENT: no acute distress Eye exam: PRESENT: conjunctiva pale Ear exam: PRESENT: normal external ear exam. ABSENT: bleeding, drainage Respiratory exam: PRESENT: rhonchi, symmetrical, unlabored Cardiovascular exam: PRESENT: RRR, +S1, +S2 GI/Abdominal exam: PRESENT: soft, other - PEG tube in place. ABSENT: tenderness Results Laboratory Results: 06/22/20 05:30 06/22/20 05:30 04/20/20 04/23/20 04/23/20 09:00 01:55 01:55 Creatine Kinase < 20 L CK-MB (CK-2) 2.20 Troponin I < 0.012 0.082 NT-Pro-B Natriuret Pep 54052 H 04/23/20 04/23/20 04/23/20 05:58 08:22 14:50 Creatine Kinase < 20 L < 20 L CK-MB (CK-2) 2.24 Troponin I 0.066 NT-Pro-B Natriuret Pep 04/23/20 06/09/20 14:50 05:20 Creatine Kinase CK-MB (CK-2) 2.09 Troponin I 0.057 NT-Pro-B Natriuret Pep 52522 H Impressions: PICC Line Insertion 05/07/20 00:00 IMPRESSION: SUCCESSFUL PLACEMENT OF A 5 FR DUAL LUMEN 47 CM PICC IN THE LEFT BRACHIOCEPHALIC VEIN. KUB X-Ray 05/16/20 11:57 IMPRESSION: NG tube as described. Findings as described. Modified Barium Swallow 06/03/20 00:00 IMPRESSION: LARYNGEAL PENETRATION AND ASPIRATION ABOVE. HE WAS PLEASE SEE SPEECH PATHOLOGIST REPORT FOR OTHER FINDINGS AND RECOMMENDATIONS. Thoracentesis Ultrasound 06/08/20 14:12 IMPRESSION: SUCCESSFUL THORACENTESIS USING ULTRASOUND GUIDANCE. Chest CT 06/15/20 00:00 IMPRESSION: Moderate bilateral pleural effusions with bilateral multifocal pneumonia. Mediastinal lymphadenopathy is probably reactive. Chest X-Ray 06/24/20 00:00 IMPRESSION: Small bilateral pleural effusions Stable diffuse bilateral airspace disease Assessment and Plan - Diagnosis (1) Bilateral pneumonia Qualifiers: Pneumonia type: aspiration pneumonia Lung location: lower lobe of lung Is this a current diagnosis for this admission?: Yes Plan: Repeat CXR, blood culture and labs ordered today. Hopes pt agrees. Previously refused. - CT chest 06/15 notable for moderate sized pleural effusion and bilateral pneumonia - Tracheal aspirate 06/15 positive for staph aureus, sternotrophomonas, Enterobacter cloacae similar to his previous sputum cultures - Ceftriaxone started 06/16 as per sensitivity. Pt previously refused f/u studies repeatedly. Patient made aware of need for studies to monitor disease progression/appropriate treatment. He expresses un derstanding and refuses further labs or imaging at this time. 06/25/2020 Still with significant congestion and abnormal x-ray. It appears that he completed a course of ceftriaxone and recently had a course of Zyvox. He originally had an infection with COVID-19 and has had complications with dysphagia and aspiration during his hospitalization. He is still ventilator dependent. We will continue to monitor closely. (2) Urinary tract infection Qualifiers: Urinary tract infection type: catheter-associated UTI Is this a current diagnosis for this admission?: Yes Plan: Chronic Varner catheter most recently changed 06/14/20 - UC 06/14 + Enterobacter cloacae. Sensitive to ceftriaxone. - 06/13 WBC 23; has refused labs since. - Remains afebrile -Ceftriaxone started 06/16 - 06/23. 06/25/2020 Antibiotic therapy completed as above (3) Leukocytosis Qualifiers: Leukocytosis type: unspecified Qualified Code(s): D72.829 - Elevated white blood cell count, unspecified Is this a current diagnosis for this admission?: Yes Plan: WBC 13.5> 16.2-> 15.2-> 14.4-> 14.5> 23.3 -> 14.6 (06/22) - Persistently afebrile with VSS. - Refused to repeat chest x-ray to assess for possible pneumonia. - Blood culture 05/09/2020 without growth in 5 days; refuses repeat BC. - Likely secondary to UTI, as above. - Continue Ceftriaxone as above As above, patient refusing furthering imaging or labs, unfortunately unable to identify or locate origin of infection at this time. Patient understanding of this and continues to refuse labs/imaging. 06/25/2020 The last blood count that the patient allowed to be drawn was on June 22. White blood cell count was 14.6 as noted above. He has not allowed any further blood work to be drawn. (4) Acute on chronic respiratory failure with hypoxia and hypercapnia Is this a current diagnosis for this admission?: Yes Plan: Tenuously improved; now maintaining oxygen saturations of 98% on FiO2 80%. Continues to require vent PRVC setting. Has a trach and on mechanical ventilation; multiple failed weaning trials. Has required increased FiO2 to maintain SpO2 over the last 24-36 hours. CXR showed significantly increased right pleural effusion. Persistent patchy airspace opacities in both lungs; slight improvement in the left upper lobe. Repeat CXR w/ Interval increase in opacity overlying the right middle to lower lung zones; recommend CT chest follow-up. ABG resulted pH 7.31, pCO2 72.8, pO2 42.5, HCO3 35.8 was obtained shortly after desaturation event requiring short period of BVM while making adjustments to ventilator equipment. Repeat ABG on AVAPS/FiO2 100% pH 7.39, pCO2 64.6, pO2 62.3, HCO3 38.2 Placed back on Vent/FiO2 100% pH 7.36, pCO2 66.2, pO2 102.5, HCO3 38.8 Now s/p thoracentesis w/ ~800 ml removed. Pleural effusion w/ WBC 367, RBC 88. LDH 138, Albumin 0.7, Glucose 174. Cultures no growth at [address] chest pending; patient continues to refuse. Cautiously diuresed with IV furosemide; excellent urinary output. Unfortunately, refusing labs to assess K and renal function. Will resume his home dose furosemide 20 mg po daily as peripheral edema has resolved. Pleural effusion possibly related to CHF (echocardiogram (03/27/2020) shows LVEF 35 to 40%) vs infectious process (HAP/Aspiration PNA). WBC w/ gradual downward trend. Remains afebrile. Will hold on abx for now. Improved; maintaining oxygen saturations of 98% on FiO2 75%. - Continues to require vent PRVC setting. - Has a trach and on mechanical ventilation; multiple failed weaning trials. - CXR 06/08 Interval increase in opacity overlying the right middle to lower lung zones - Now s/p thoracentesis 06/08 with ~800 ml removed. - Pleural effusion w/ WBC 367, RBC 88. - LDH 138, Albumin 0.7, Glucose 174. - Cultures no growth. - Repeat CT 06/15 chest moderate bilateral pleural effusion and multifocal p neumonia (Ceftriaxone as above) - Continue with ventilator 06/25/2020 Continue ventilator support. Chest x-ray yesterday still shows bilateral infiltrative process. (5) Chronic pain Qualifiers: Chronic pain type: other chronic pain Qualified Code(s): G89.29 - Other chronic pain Is this a current diagnosis for this admission?: Yes Plan: Continued difficulty with managing patient's opiate dependence, chronic pain, desire for IV route, and hypoxia. - Previous provider notes reviewed - Morphine 10 mg via PEG q4h prn as per pain management recommendations. - This was adjusted to Morphine 7.5mg q3hrs with improvement in pt treatment toward nursing. - Pain management with recommendations to not renegotiate pain medications with the patient to maintain on this current 24-hour morphine dose. Pain medications to be held if patient is not receiving tube feeds due to risk. Pain medications may be administered if pt receiving tube feeds No changes in the current treatment plan (6) Anxiety about health Is this a current diagnosis for this admission?: Yes Plan: As per previous providers on case and nursing patient with frequent anxiety attacks regarding his current state of health. - Continue buspar 10 BID - Utilize vistaril 25m q8prn during acute bouts. - Advised against benzo therapy. 06/25/2020 We will revisit the topic of depression and possible use of antidepressant medication (7) Critical illness myopathy Is this a current diagnosis for this admission?: Yes Plan: With history of ICU and prolonged hospital stay - Given 3+ month hx hpspital admission would require extensive rehab - PT/OT/ST consulted - Pt continues to refuse rehab 06/25/2020 as above (8) Dysphagia Qualifiers: Dysphagia type: oropharyngeal phase Qualified Code(s): R13.12 - Dysphagia, oropharyngeal phase Is this a current diagnosis for this admission?: Yes Plan: Now with PEG - Most recent swallow eval 06/03/20, failed. - currently receiving feeding via PEG with free water flushes. - Na stable as per previous labs. - Unable to monitor due to lab refusal. Patient receiving tube feeds as of today. Previously refused tube feeds due to diarrhea. Given Imodium prior to tube feeds with hopes this will prevent diarrhea. 06/25/2020 Nursing reports that the patient has declined tube feeds at this time. (9) Bacteremia due to Enterococcus Is this a current diagnosis for this admission?: Yes Plan: Resolved - 05/07 + BC enterococcus - 05/09 BC without growth > 5 days - Completed Abx course - TTE as recommended by ID pending, pt has refused. No further intervention at this time (10) MSSA bacteremia Is this a current diagnosis for this admission?: Yes Plan: Resolved, completed abx treatment - BC 05/07 + MSSA - BC 05/09 without growth > 5 days - Patient refusing repeat blood culture. - Patient refusing echocardiogram as recommended by ID. 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 - Tx'd with dextrose - Pt educated on the need of tube feeds and risk associated with hypoglycemic episodes. - Patient does not acknowledge information provided. - Hypoglycemic protocol in place 06/25/2020 Patient is allowing Accu-Cheks. Last Accu-Cheks were within the normal range for the most part. Need to monitor for hypoglycemia with the patient refusing tube feeds. (12) Acute kidney injury superimposed on chronic kidney disease Is this a current diagnosis for this admission?: Yes Plan: Resolved. - BUN/Creatinine 23/0.90 today 06/25/2020 Per last blood work GFR remains greater than 60 (13) Acute metabolic encephalopathy Is this a current diagnosis for this admission?: Yes Plan: Resolved. Primarily the result of infection but multiple other comorbidities likely c ontributing. Currently resolved. (14) Debility Is this a current diagnosis for this admission?: Yes Plan: PT/OT/ST consulted though repeatedly refusing - Needs LTAC placement (15) Dependent on ventilator Is this a current diagnosis for this admission?: Yes Plan: O2 saturation 100% with FiO2 75. -Slowly wean this tolerated. -Rose Mary will faily secondary to bilateral pleural portion of multifocal pneumonia. - Discharge planning sending out referrals to [id number] facilities to take him; denies by all instate facilities 06/25/2020 Would benefit from placement at a long-term acute care hospital for long-term ventilator weaning (16) Nausea and vomiting Qualifiers: Vomiting type: unspecified Vomiting Intractability: non-intractable Qualified Code(s): R11.2 - Nausea with vomiting, unspecified Is this a current diagnosis for this admission?: Yes Plan: No NV today. Though comes in wave. Shelby BORRERON. 06/25/2020-stable/no changes (17) Malnutrition Qualifiers: Malnutrition type: protein-calorie malnutrition Protein-calorie malnutriti on severity: severe Qualified Code(s): E43 - Unspecified severe protein- calorie malnutrition Is this a current diagnosis for this admission?: Yes Plan: Improving Now on Tube Feeds RD following. 06/25/2020 For the most part has been refusing tube feeds. Unable to correct malnutrition if the patient does not allow tube feeds to infuse (18) Tracheostomy in place Is this a current diagnosis for this admission?: Yes Plan: Continue tracheostomy care. Aggressive pulmonary toileting. 06/25/2020-routine tracheostomy care by nursing and respiratory therapy (19) Hypotension Qualifiers: Hypotension type: unspecified hypotension type Qualified Code(s): I95.9 - Hypotension, unspecified Is this a current diagnosis for this admission?: Yes Plan: Present on admission. Resolved (20) Candiduria Is this a current diagnosis for this admission?: Yes Plan: Resolved. - Plan Summary Summary: Patient with history refusing medical studies and treatment. Continues to refuse treatment and evaluation. Difficult to truly care for and manage patient due to his non-compliance and refusal of care. - Time Time Spent with patient: 15-24 minutes Medications reviewed and adjusted accordingly: Yes Anticipated Discharge Disposition: Longterm Care Facility Anticipated Discharge Timeframe: when bed available
[2020-06-26] MEDS: MORPHINE SULFATE 10 MG/ML INJ IV PRN ×2 (16:35→21:49)
[2020-06-26] MEDS: FENTANYL 25 MCG/HR PATCH.TD72 TD SCH (16:35)
[2020-06-27] MEDS: MORPHINE SULFATE 10 MG/ML INJ IV PRN ×3 (04:51→14:45)
[2020-06-27] MEDS: ONDANSETRON HCL INJ/PF 4 MG/2 ML SDV IV PRN ×2 (04:51→16:34)
[2020-06-27] MEDS: INSULIN REG, HUMAN 100 UNIT/ML 3 ML VIAL (PYX) SUBCUT SCH ×4 (06:12→18:16)
[2020-06-27] MEDS: ACETYLCYSTEINE 20% SOLN 800 MG/4 ML VIAL.NEB NEB SCH ×2 (08:32→21:21)
[2020-06-27] MEDS: IPRATROPIUM/ALBUTEROL 0.5-2.5 MG/3 ML AMPUL NEB PRN ×2 (08:32→21:21)
[2020-06-27] MEDS: DIPHENHYDRAMINE HCL 50 MG/ML VIAL IV PRN ×2 (10:17→18:17)
[2020-06-27] MEDS: AMINO AC/PROTEIN HYDR/WHEY PRO 11 GM/45 ML PKT PEG SCH ×2 (10:17→18:12)
[2020-06-27] MEDS: LOPERAMIDE HCL 2 MG CAPSULE PO SCH ×2 (10:17→18:07)
[2020-06-27] MEDS: BUSPIRONE HCL 10 MG TABLET PEG SCH ×2 (10:17→18:07)
[2020-06-27] MEDS: FUROSEMIDE ORAL SOLN 40 MG/5 ML UDCUP PEG SCH (10:17)
[2020-06-27] MEDS: NORMAL SALINE 10 ML SDV (SCHEDULED) IV SCH ×2 (10:18→22:32)
[2020-06-27] MEDS: DEXTROSE 5%-1/2 NORMAL SALINE 1,000 ML IV PRN (12:15)
--- NOTE | 2020-06-27 14:50 | PDOC PROGRESS REPORT ---
Subjective Date:: 06/27/20 Subjective:: Has a list of things he wants to talk about already. His first thing on the lis t is he wants more pain medication. Reason For Visit: MUCOUS PLUGGING, ACUTE HYPOXIC RESPIRATORY FAILURE Physical Exam Vital Signs: Temp Pulse Resp BP Pulse Ox 97.4 F 97 12 123/68 98 06/27/20 07:40 06/27/20 08:33 06/27/20 08:33 06/26/20 21:53 06/27/20 14:36 Intake & Output 06/26/20 06/27/20 06/28/20 06:59 06:59 06:59 Intake Total 975 1000 1000 Output Total 575 425 150 Balance 400 575 850 Weight 73 kg 73 kg General appearance: PRESENT: no acute distress Eye exam: PRESENT: conjunctiva pale. ABSENT: scleral icterus Ear exam: PRESENT: normal external ear exam. ABSENT: bleeding, drainage Teeth exam: PRESENT: poor dentation Neck exam: PRESENT: tracheostomy Respiratory exam: PRESENT: rhonchi - Bilateral, symmetrical, unlabored. ABSENT: tachypnea, wheezes Cardiovascular exam: PRESENT: RRR, +S1, +S2 GI/Abdominal exam: PRESENT: normal bowel sounds, soft, other - PEG tube in place. ABSENT: tenderness Rectal exam: PRESENT: deferred Gentrourinary exam: PRESENT: indwelling catheter Extremities exam: ABSENT: pedal edema Neurological exam: PRESENT: alert, awake, oriented to person, oriented to place, oriented to situation. ABSENT: altered Psychiatric exam: PRESENT: flat affect. ABSENT: agitated, anxious Results Laboratory Results: 06/22/20 05:30 06/22/20 05:30 04/20/20 04/23/20 04/23/20 09:00 01:55 01:55 Creatine Kinase < 20 L CK-MB (CK-2) 2.20 Troponin I < 0.012 0.082 NT-Pro-B Natriuret Pep 10559 H 04/23/20 04/23/20 04/23/20 05:58 08:22 14:50 Creatine Kinase < 20 L < 20 L CK-MB (CK-2) 2.24 Troponin I 0.066 NT-Pro-B Natriuret Pep 04/23/20 06/09/20 14:50 05:20 Creatine Kinase CK-MB (CK-2) 2.09 Troponin I 0.057 NT-Pro-B Natriuret Pep 95078 H Impressions: PICC Line Insertion 05/07/20 00:00 IMPRESSION: SUCCESSFUL PLACEMENT OF A 5 FR DUAL LUMEN 47 CM PICC IN THE LEFT BRACHIOCEPHALIC VEIN. KUB X-Ray 05/16/20 11:57 IMPRESSION: NG tube as described. Findings as described. Modified Barium Swallow 06/03/20 00:00 IMPRESSION: LARYNGEAL PENETRATION AND ASPIRATION ABOVE. HE WAS PLEASE SEE SPEECH PATHOLOGIST REPORT FOR OTHER FINDINGS AND RECOMMENDATIONS. Thoracentesis Ultrasound 06/08/20 14:12 IMPRESSION: SUCCESSFUL THORACENTESIS USING ULTRASOUND GUIDANCE. Chest CT 06/15/20 00:00 IMPRESSION: Moderate bilateral pleural effusions with bilateral multifocal pneumonia. Mediastinal lymphadenopathy is probably reactive. Chest X-Ray 06/24/20 00:00 IMPRESSION: Small bilateral pleural effusions Stable diffuse bilateral airspace disease Assessment and Plan - Diagnosis (1) Bilateral pneumonia Qualifiers: Pneumonia type: aspiration pneumonia Lung location: lower lobe of lung Is this a current diagnosis for this admission?: Yes Plan: Repeat CXR, blood culture and labs ordered today. Hopes pt agrees. Previously refused. - CT chest 06/15 notable for moderate sized pleural effusion and bilateral pneumonia - Tracheal aspirate 06/15 positive for staph aureus, sternotrophomonas, Enterobacter cloacae similar to his previous sputum cultures - Ceftriaxone started 06/16 as per sensitivity. Pt previously refused f/u studies repeatedly. Patient made aware of need for studies to monitor disease progression/appropriate treatment. He expresses understanding and refuses further labs or imaging at this time. 06/25/2020 Still with significant congestion and abnormal x-ray. It appears that he completed a course of ceftriaxone and recently had a course of Zyvox. He originally had an infection with COVID-19 and has had complications with dys phagia and aspiration during his hospitalization. He is still ventilator dependent. We will continue to monitor closely. 06/27/2020 Good secretions with ET tube suction. Lungs actually starting to sound better. (2) Urinary tract infection Qualifiers: Urinary tract infection type: catheter-associated UTI Is this a current diagnosis for this admission?: Yes Plan: Chronic Varner catheter most recently changed 06/14/20 - UC 06/14 + Enterobacter cloacae. Sensitive to ceftriaxone. - 06/13 WBC 23; has refused labs since. - Remains afebrile -Ceftriaxone started 06/16 - 06/23. 06/25/2020 Antibiotic therapy completed as above (3) Leukocytosis Qualifiers: Leukocytosis type: unspecified Qualified Code(s): D72.829 - Elevated white blood cell count, unspecified Is this a current diagnosis for this admission?: Yes Plan: WBC 13.5> 16.2-> 15.2-> 14.4-> 14.5> 23.3 -> 14.6 (06/22) - Persistently afebrile with VSS. - Refused to repeat chest x-ray to assess for possible pneumonia. - Blood culture 05/09/2020 without growth in 5 days; refuses repeat BC. - Likely secondary to UTI, as above. - Continue Ceftriaxone as above As above, patient refusing furthering imaging or labs, unfortunately unable to identify or locate origin of infection at this time. Patient understanding of this and continues to refuse labs/imaging. 06/25/2020 The last blood count that the patient allowed to be drawn was on June 22. White blood cell count was 14.6 as noted above. He has not allowed any further blood work to be drawn. (4) Acute on chronic respiratory failure with hypoxia and hypercapnia Is this a current diagnosis for this admission?: Yes Plan: Tenuously improved; now maintaining oxygen saturations of 98% on FiO2 80%. Continues to require vent PRVC setting. Has a trach and on mechanical ventilation; multiple failed weaning trials. Has required increased FiO2 to maintain SpO2 over the last 24-36 hours. CXR showed significantly increased right pleural effusion. Persistent patchy airspace opacities in both lungs; slight improvement in the left upper lobe. Repeat CXR w/ Interval increase in opacity overlying the right middle to lower lung zones; recommend CT chest follow-up. ABG resulted pH 7.31, pCO2 72.8, pO2 42.5, HCO3 35.8 was obtained shortly after desaturation event requiring short period of BVM while making adjustments to ventilator equipment. Repeat ABG on AVAPS/FiO2 100% pH 7.39, pCO2 64.6, pO2 62.3, HCO3 38.2 Placed back on Vent/FiO2 100% pH 7.36, pCO2 66.2, pO2 102.5, HCO3 38.8 Now s/p thoracentesis w/ ~800 ml removed. Pleural effusion w/ WBC 367, RBC 88. LDH 138, Albumin 0.7, Glucose 174. Cultures no growth at [address] chest pending; patient continues to refuse. Cautiously diuresed with IV furosemide; excellent urinary output. Unfortunately, refusing labs to assess K and renal function. Will resume his home dose furosemide 20 mg po daily as peripheral edema has resolved. Pleural effusion possibly related to CHF (echocardiogram (03/27/2020) shows LVEF 35 to 40%) vs infectious process (HAP/Aspiration PNA). WBC w/ gradual downward trend. Remains afebrile. Will hold on abx for now. Improved; maintaining oxygen saturations of 98% on FiO2 75%. - Continues to require vent PRVC setting. - Has a trach and on mechanical ventilation; multiple failed weaning trials. - CXR 06/08 Interval increase in opacity overlying the right middle to lower lung zones - Now s/p thoracentesis 06/08 with ~800 ml removed. - Pleural effusion w/ WBC 367, RBC 88. - LDH 138, Albumin 0.7, Glucose 174. - Cultures no growth. - Repeat CT 06/15 chest moderate bilateral pleural effusion and multifocal pneumonia (Ceftriaxone as above) - Continue with ventilator 06/25/2020 Continue ventilator support. Chest x-ray yesterday still shows bilateral infiltrative process. 06/27/2020 Continue tracheostomy care and suction (5) Chronic pain Qualifiers: Chronic pain type: other chronic pain Qualified Code(s): G89.29 - Other chronic pain Is this a current diagnosis for this admission?: Yes Plan: Continued difficulty with managing patient's opiate dependence, chronic pain, desire for IV route, and hypoxia. - Previous provider notes reviewed - Morphine 10 mg via PEG q4h prn as per pain management recommendations. - This was adjusted to Morphine 7.5mg q3hrs with improvement in pt treatment toward nursing. - Pain management with recommendations to not renegotiate pain medications with the patient to maintain on this current 24-hour morphine dose. Pain medications to be held if patient is not receiving tube feeds due to risk. Pain medications may be administered if pt receiving tube feeds No changes in the current treatment plan 06/27/2020 Despite fentanyl patch the patient still wants more pain medications. We will continue the patch and go back to pain medication through the PEG tube. (6) Anxiety about health Is this a current diagnosis for this admission?: Yes Plan: As per previous providers on case and nursing patient with frequent anxiety attacks regarding his current state of health. - Continue buspar 10 BID - Utilize vistaril 25m q8prn during acute bouts. - Advised against benzo therapy. 06/25/2020 We will revisit the topic of depression and possible use of antidepressant medication (7) Critical illness myopathy Is this a current diagnosis for this admission?: Yes Plan: With history of ICU and prolonged hospital stay - Given 3+ month hx hpspital admission would require extensive rehab - PT/OT/ST consulted - Pt continues to refuse rehab 06/25/2020 as above (8) Dysphagia Qualifiers: Dysphagia type: oropharyngeal phase Qualified Code(s): R13.12 - Dysphagia, oropharyngeal phase Is this a current diagnosis for this admission?: Yes Plan: Now with PEG - Most recent swallow eval 06/03/20, failed. - currently receiving feeding via PEG with free water flushes. - Na stable as per previous labs. - Unable to monitor due to lab refusal. Patient receiving tube feeds as of today. Previously refused tube feeds due to diarrhea. Given Imodium prior to tube feeds with hopes this will prevent diarrhea. 06/25/2020 Nursing reports that the patient has declined tube feeds at this time. (9) Bacteremia due to Enterococcus Is this a current diagnosis for this admission?: Yes Plan: Resolved - 05/07 + BC enterococcus - 05/09 BC without growth > 5 days - Completed Abx course - TTE as recommended by ID pending, pt has refused. No further intervention at this time (10) MSSA bacteremia Is this a current diagnosis for this admission?: Yes Plan: Resolved, completed abx treatment - BC 05/07 + MSSA - BC 05/09 without growth > 5 days - Patient refusing repeat blood culture. - Patient refusing echocardiogram as recommended by ID. 06/25/2020-as above (11) Hyperglycemia due to type 2 diabetes mellitus Qualifiers: Diabetes mellitus intermediate insulin use: with terminal operations supervisor use Qualified Code(s): E11.65 - Type 2 diabetes mellitus with hyperglycemia; Z79.4 - predatory animal exterminator (current) use of insulin Is this a current diagnosis for this admission?: Yes Plan: Patient without hypoglycemia today on accucheck, likely because patient refusing tube feeds. - Tx'd with dextrose - Pt educated on the need of tube feeds and risk associated with hypoglycemic episodes. - Patient does not acknowledge information provided. - Hypoglycemic protocol in place 06/25/2020 Patient is allowing Accu-Cheks. Last Accu-Cheks were within the normal range for the most part. Need to monitor for hypoglycemia with the patient refusing tube feeds. (12) Acute kidney injury superimposed on chronic kidney disease Is this a current diagnosis for this admission?: Yes Plan: Resolved. - BUN/Creatinine 23/0.90 today 06/25/2020 Per last blood work GFR remains greater than 60 (13) Acute metabolic encephalopathy Is this a current diagnosis for this admission?: Yes Plan: Resolved. Primarily the result of infection but multiple other comorbidities likely contributing. Currently resolved. (14) Debility Is this a current diagnosis for this admission?: Yes Plan: PT/OT/ST consulted though repeatedly refusing - Needs LTAC placement (15) Dependent on ventilator Is this a current diagnosis for this admission?: Yes Plan: O2 saturation 100% with FiO2 75. -Slowly wean this tolerated. -Rose Mary will faily secondary to bilateral pleural portion of multifocal pneumonia. - Discharge planning sending out referrals to [id number] facilities to take him; denies by all instate facilities 06/25/2020 Would benefit from placement at a long-term acute care hospital for long-term ventilator weaning (16) Nausea and vomiting Qualifiers: Vomiting type: unspecified Vomiting Intractability: non-intractable Qualified Code(s): R11.2 - Nausea with vomiting, unspecified Is this a current diagnosis for this admission?: Yes Plan: No NV today. Though comes in wave. Shle[place] WHITE. 06/25/2020-stable/no changes 06/27/2020-after further discussion we will consider pancreatic enzyme replacement and trial dose of tube feeds. (17) Malnutrition Qualifiers: Malnutrition type: protein-calorie malnutrition Protein-calorie malnutrition severity: severe Qualified Code(s): E43 - Unspecified severe protein-calorie malnutrition Is this a current diagnosis for this admission?: Yes Plan: Improving Now on Tube Feeds RD following. 06/25/2020 For the most part has been refusing tube feeds. Unable to correct malnutrition if the patient does not allow tube feeds to infuse 06/27/2020 Discussed with the dietitian. Will trial probiotics and pancreatic enzymes with trial dose of tube feed. (18) Tracheostomy in place Is this a current diagnosis for this admission?: Yes Plan: Continue tracheostomy care. Aggressive pulmonary toileting. 06/25/2020-routine tracheostomy care by nursing and respiratory therapy (19) Hypotension Qualifiers: Hypotension type: unspecified hypotension type Qualified Code(s): I95.9 - Hypotension, unspecified Is this a current diagnosis for this admission?: Yes Plan: Present on admission. Resolved (20) Candiduria Is this a current diagnosis for this admission?: Yes Plan: Resolved. - Plan Summary Summary: Patient with history refusing medical studies and treatment. Continues to refuse treatment and evaluation. Difficult to truly care for and manage patient due to his non-compliance and refusal of care. - Time Time Spent with patient: Less than 15 minutes Medications reviewed and adjusted accordingly: Yes Anticipated Discharge Disposition: [facility] Anticipated Discharge Timeframe: when bed available
[2020-06-28] MEDS: MORPHINE SULFATE 10 MG/ML INJ IV PRN ×4 (00:28→18:19)
[2020-06-28] MEDS: ONDANSETRON HCL INJ/PF 4 MG/2 ML SDV IV PRN ×4 (00:29→20:07)
[2020-06-28] MEDS: INSULIN REG, HUMAN 100 UNIT/ML 3 ML VIAL (PYX) SUBCUT SCH ×4 (00:30→18:19)
[2020-06-28] MEDS: HYDROXYZINE HCL INJ 50 MG/1 ML VIAL IM PRN ×2 (03:40→20:08)
[2020-06-28] MEDS: DIPHENHYDRAMINE HCL 50 MG/ML VIAL IV PRN ×2 (03:41→14:09)
[2020-06-28] MEDS: DEXTROSE 5%-1/2 NORMAL SALINE 1,000 ML IV PRN (08:22)
[2020-06-28] MEDS: ACETYLCYSTEINE 20% SOLN 800 MG/4 ML VIAL.NEB NEB SCH ×2 (08:27→20:02)
[2020-06-28] MEDS: IPRATROPIUM/ALBUTEROL 0.5-2.5 MG/3 ML AMPUL NEB PRN ×2 (08:27→20:02)
[2020-06-28] MEDS: SCOPOLAMINE HYDROBROMIDE 1.5 MG PATCH.TD72 TD SCH (09:59)
[2020-06-28] MEDS: LOPERAMIDE HCL 2 MG CAPSULE PO SCH ×2 (09:59→18:19)
[2020-06-28] MEDS: BUSPIRONE HCL 10 MG TABLET PEG SCH ×2 (10:00→18:19)
[2020-06-28] MEDS: AMINO AC/PROTEIN HYDR/WHEY PRO 11 GM/45 ML PKT PEG SCH ×2 (10:00→18:19)
[2020-06-28] MEDS: FUROSEMIDE ORAL SOLN 40 MG/5 ML UDCUP PEG SCH (10:00)
[2020-06-28] MEDS: NORMAL SALINE 10 ML SDV (SCHEDULED) IV SCH ×2 (10:10→23:13)
[2020-06-28] MEDS ORDERED: SIMETHICONE 80 MG TAB.CHEW PEG PRN (15:27)
--- NOTE | 2020-06-28 15:42 | PDOC PROGRESS REPORT ---
Subjective Date:: 06/28/20 Subjective:: Patient resting comfortably. Recently medicated for pain. The nurse reports on going nausea and vomiting. She still has a fair volume of endotracheal suction material. The patient, despite all of this, wishes to have regular food. Reason For Visit: MUCOUS PLUGGING, ACUTE HYPOXIC RESPIRATORY FAILURE Physical Exam Vital Signs: Temp Pulse Resp BP Pulse Ox 97.4 F 91 11 L 123/68 96 06/28/20 10:00 06/28/20 14:00 06/28/20 08:28 06/26/20 21:53 06/28/20 12:00 Intake & Output 06/27/20 06/28/20 06/29/20 06:59 06:59 06:59 Intake Total 1000 1000 1000 Output Total 425 1000 350 Balance 575 0 650 Weight 73 kg 70.2 kg General appearance: PRESENT: no acute distress, cooperative, thin Ear exam: PRESENT: normal external ear exam. ABSENT: bleeding, drainage Mouth exam: PRESENT: dry mucosa, tongue midline Teeth exam: PRESENT: poor dentation Respiratory exam: PRESENT: rhonchi - With coarse breath sounds, unlabored, other - Ventilator dependent. ABSENT: rales, tachypnea, wheezes Cardiovascular exam: PRESENT: RRR, +S1, +S2. ABSENT: bradycardia, diastolic murmur, irregular rhythm, systolic murmur, tachycardia GI/Abdominal exam: PRESENT: distended - And tympanic, hypoactive bowel sounds, soft, tenderness, other - PEG tube in place Rectal exam: PRESENT: deferred Gentrourinary exam: PRESENT: indwelling catheter Extremities exam: ABSENT: pedal edema Musculoskeletal exam: PRESENT: other - Decreased muscle mass. ABSENT: ambulatory Neurological exam: PRESENT: alert, awake, oriented to person, oriented to place, oriented to situation. ABSENT: altered Psychiatric exam: PRESENT: appropriate affect. ABSENT: agitated, anxious Focused psych exam: ABSENT: delusional, paranoid, restlessness Skin exam: PRESENT: pallor Results Laboratory Results: 06/22/20 05:30 06/22/20 05:30 04/20/20 04/23/20 04/23/20 09:00 01:55 01:55 Creatine Kinase < 20 L CK-MB (CK-2) 2.20 Troponin I < 0.012 0.082 NT-Pro-B Natriuret Pep [id number] H 04/23/20 04/23/20 04/23/20 05:58 08:22 14:50 Creatine Kinase < 20 L < 20 L CK-MB (CK-2) 2.24 Troponin I 0.066 NT-Pro-B Natriuret Pep 04/23/20 06/09/20 14:50 05:20 Creatine Kinase CK-MB (CK-2) 2.09 Troponin I 0.057 NT-Pro-B Natriuret Pep [id number] H Impressions: PICC Line Insertion 05/07/20 00:00 IMPRESSION: SUCCESSFUL PLACEMENT OF A 5 FR DUAL LUMEN 47 CM PICC IN THE LEFT BRACHIOCEPHALIC VEIN. KUB X-Ray 05/16/20 11:57 IMPRESSION: NG tube as described. Findings as described. Modified Barium Swallow 06/03/20 00:00 IMPRESSION: LARYNGEAL PENETRATION AND ASPIRATION ABOVE. HE WAS PLEASE SEE SPEECH PATHOLOGIST REPORT FOR OTHER FINDINGS AND RECOMMENDATIONS. Thoracentesis Ultrasound 06/08/20 14:12 IMPRESSION: SUCCESSFUL THORACENTESIS USING ULTRASOUND GUIDANCE. Chest CT 06/15/20 00:00 IMPRESSION: Moderate bilateral pleural effusions with bilateral multifocal pneumonia. Mediastinal lymphadenopathy is probably reactive. Chest X-Ray 06/24/20 00:00 IMPRESSION: Small bilateral pleural effusions Stable diffuse bilateral airspace disease Assessment and Plan - Diagnosis (1) Bilateral pneumonia Qualifiers: Pneumonia type: aspiration pneumonia Lung location: lower lobe of lung Is this a current diagnosis for this admission?: Yes Plan: Repeat CXR, blood culture and labs ordered today. Hopes pt agrees. Previously refused. - CT chest 06/15 notable for moderate sized pleural effusion and bilateral pneumonia - Tracheal aspirate 06/15 positive for staph aureus, sternotrophomonas, Enterobacter cloacae similar to his previous sputum cultures - Ceftriaxone started 06/16 as per sensitivity. Pt previously refused f/u studies repeatedly. Patient made aware of need for alessandra dies to monitor disease progression/appropriate treatment. He expresses understanding and refuses further labs or imaging at this time. 06/25/2020 Still with significant congestion and abnormal x-ray. It appears that he completed a course of ceftriaxone and recently had a course of Zyvox. He originally had an infection with COVID-19 and has had complications with dysphagia and aspiration during his hospitalization. He is still ventilator dependent. We will continue to monitor closely. 06/27/2020 Good secretions with ET tube suction. Lungs actually starting to sound better. 06/28/2020 Antibiotic therapy completed. The patient cannot have anything by mouth as he has high risk of aspiration. (2) Urinary tract infection Qualifiers: Urinary tract infection type: catheter-associated UTI Is this a current diagnosis for this admission?: Yes Plan: Chronic Varner catheter most recently changed 06/14/20 - UC 06/14 + Enterobacter cloacae. Sensitive to ceftriaxone. - 06/13 WBC 23; has refused labs since. - Remains afebrile -Ceftriaxone started 06/16 - 06/23. 06/25/2020 Antibiotic therapy completed as above 06/28/2020 Infection resolved (3) Leukocytosis Qualifiers: Leukocytosis type: unspecified Qualified Code(s): D72.829 - Elevated white blood cell count, unspecified Is this a current diagnosis for this admission?: Yes Plan: WBC 13.5> 16.2-> 15.2-> 14.4-> 14.5> 23.3 -> 14.6 (06/22) - Persistently afebrile with VSS. - Refused to repeat chest x-ray to assess for possible pneumonia. - Blood culture 05/09/2020 without growth in 5 days; refuses repeat BC. - Likely secondary to UTI, as above. - Continue Ceftriaxone as above As above, patient refusing furthering imaging or labs, unfortunately unable to identify or locate origin of infection at this time. Patient understanding of this and continues to refuse labs/imaging. 06/25/2020 The last blood count that the patient allowed to be drawn was on June 22. White blood cell count was 14.6 as noted above. He has not allowed any further blood work to be drawn. 06/28/2020 Check white blood cell count tomorrow (4) Acute on chronic respiratory failure with hypoxia and hypercapnia Is this a current diagnosis for this admission?: Yes Plan: Tenuously improved; now maintaining oxygen saturations of 98% on FiO2 80%. Continues to require vent PRVC setting. Has a trach and on mechanical ventilation; multiple failed weaning trials. Has required increased FiO2 to maintain SpO2 over the last 24-36 hours. CXR showed significantly increased right pleural effusion. Persistent patchy airspace opacities in both lungs; slight improvement in the left upper lobe. Repeat CXR w/ Interval increase in opacity overlying the right middle to lower lung zones; recommend CT chest follow-up. ABG resulted pH 7.31, pCO2 72.8, pO2 42.5, HCO3 35.8 was obtained shortly after desaturation event requiring short period of BVM while making adjustments to ventilator equipment. Repeat ABG on AVAPS/FiO2 100% pH 7.39, pCO2 64.6, pO2 62.3, HCO3 38.2 Placed back on Vent/FiO2 100% pH 7.36, pCO2 66.2, pO2 102.5, HCO3 38.8 Now s/p thoracentesis w/ ~800 ml removed. Pleural effusion w/ WBC 367, RBC 88. LDH 138, Albumin 0.7, Glucose 174. Cultures no growth at [address] chest pending; patient continues to refuse. Cautiously diuresed with IV furosemide; excellent urinary output. Unfortunately, refusing labs to assess K and renal function. Will resume his home dose furosemide 20 mg po daily as peripheral edema has resolved. Pleural effusion possibly related to CHF (echocardiogram (03/27/2020) shows LVEF 35 to 40%) vs infectious process (HAP/Aspiration PNA). WBC w/ gradual downward trend. Remains afebrile. Will hold on abx for now. Improved; maintaining oxygen saturations of 98% on FiO2 75%. - Continues to require vent PRVC setting. - Has a trach and on mechanical ventilation; multiple failed weaning trials. - CXR 06/08 Interval increase in opacity overlying the right middle to lower lung zones - Now s/p thoracentesis 06/08 with ~800 ml removed. - Pleural effusion w/ WBC 367, RBC 88. - LDH 138, Albumin 0.7, Glucose 174. - Cultures no growth. - Repeat CT 06/15 chest moderate bilateral pleural effusion and multifocal pneumonia (Ceftriaxone as above) - Continue with ventilator 06/25/2020 Continue ventilator support. Chest x-ray yesterday still shows bilateral infiltrative process. 06/27/2020 Continue tracheostomy care and suction 06/28/2020 Currently ventilator dependent (5) Chronic pain Qualifiers: Chronic pain type: other chronic pain Qualified Code(s): G89.29 - Other ch ronic pain Is this a current diagnosis for this admission?: Yes Plan: Continued difficulty with managing patient's opiate dependence, chronic pain, desire for IV route, and hypoxia. - Previous provider notes reviewed - Morphine 10 mg via PEG q4h prn as per pain management recommendations. - This was adjusted to Morphine 7.5mg q3hrs with improvement in pt treatment toward nursing. - Pain management with recommendations to not renegotiate pain medications with the patient to maintain on this current 24-hour morphine dose. Pain medications to be held if patient is not receiving tube feeds due to risk. Pain medications may be administered if pt receiving tube feeds No changes in the current treatment plan 06/27/2020 Despite fentanyl patch the patient still wants more pain medications. We will continue the patch and go back to pain medication through the PEG tube. 06/28/2020 Initiated fentanyl patch. (6) Anxiety about health Is this a current diagnosis for this admission?: Yes Plan: As per previous providers on case and nursing patient with frequent anxiety attacks regarding his current state of health. - Continue buspar 10 BID - Utilize vistaril 25m q8prn during acute bouts. - Advised against benzo therapy. 06/25/2020 We will revisit the topic of depression and possible use of antidepressant medication (7) Critical illness myopathy Is this a current diagnosis for this admission?: Yes Plan: With history of ICU and prolonged hospital stay - Given 3+ month hx hpspital admission would require extensive rehab - PT/OT/ST consulted - Pt continues to refuse rehab 06/25/2020 as above 06/28/2020-physical therapy did see the patient again. They feel that with a Jesse lift they can accomplish safe transition from bed to chair. At this point the patient would not be able to adequately self propel especially since he cannot detach himself from the ventilator. (8) Dysphagia Qualifiers: Dysphagia type: oropharyngeal phase Qualified Code(s): R13.12 - Dysphagia, oropharyngeal phase Is this a current diagnosis for this admission?: Yes Plan: Now with PEG - Most recent swallow eval 06/03/20, failed. - currently receiving feeding via PEG with free water flushes. - Na stable as per previous labs. - Unable to monitor due to lab refusal. Patient receiving tube feeds as of today. Previously refused tube feeds due to diarrhea. Given Imodium prior to tube feeds with hopes this will prevent diarrhea. 06/25/2020 Nursing reports that the patient has declined tube feeds at this time. 06/28/2020 Continue n.p.o. status (9) Bacteremia due to Enterococcus Is this a current diagnosis for this admission?: Yes Plan: Resolved - 05/07 + BC enterococcus - 05/09 BC without growth > 5 days - Completed Abx course - TTE as recommended by ID pending, pt has refused. No further intervention at this time (10) MSSA bacteremia Is this a current diagnosis for this admission?: Yes Plan: Resolved, completed abx treatment - BC 05/07 + MSSA - BC 05/09 without growth > 5 days - Patient refusing repeat blood culture. - Patient refusing echocardiogram as recommended by ID. 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 - Tx'd with dextrose - Pt educated on the need of tube feeds and risk associated with hypoglycemic episodes. - Patient does not acknowledge information provided. - Hypoglycemic protocol in place 06/25/2020 Patient is allowing Accu-Cheks. Last Accu-Cheks were within the normal range for the most part. Need to monitor for hypoglycemia with the patient refusing tube feeds. 06/28/[id number] have excellent control. We will try and obtain serum chemistries tomorrow (12) Acute kidney injury superimposed on chronic kidney disease Is this a current diagnosis for this admission?: Yes Plan: Resolved. - BUN/Creatinine 23/0.90 today 06/25/2020 Per last blood work GFR remains greater than 60 06/28/2020-I have ordered blood work for tomorrow. Hopefully the patient will allow phlebotomy to draw his blood. (13) Acute metabolic encephalopathy Is this a current diagnosis for this admission?: Yes Plan: Resolved. Primarily the result of infection but multiple other comorbidities likely contributing. Currently resolved. (14) Debility Is this a current diagnosis for this admission?: Yes Plan: PT/OT/ST consulted though repeatedly refusing - Needs LTAC placement (15) Dependent on ventilator Is this a current diagnosis for this admission?: Yes Plan: O2 saturation 100% with FiO2 75. -Slowly wean this tolerated. -Likley will faily secondary to bilateral pleural portion of multifocal pneumonia. - Discharge planning sending out referrals to [id number] facilities to take him; denies by all instate facilities 06/25/2020 Would benefit from placement at a long-term acute care hospital for long-term ventilator weaning (16) Nausea and vomiting Qualifiers: Vomiting type: unspecified Vomiting Intractability: non-intractable Qualified Code(s): R11.2 - Nausea with vomiting, unspecified Is this a current diagnosis for this admission?: Yes Plan: No NV today. Though comes in wave. Shelby BORRERON. 06/25/2020-stable/no changes 06/27/2020-after further discussion we will consider pancreatic enzyme replacement and trial dose of tube feeds. 06/28/2020-the nurse reports that the patient is still having bilious vomiting. He does have a PEG tube in place. I will institute a trial of intermittent low wall suction to decompress the belly. (17) Malnutrition Qualifiers: Malnutrition type: protein-calorie malnutrition Protein-calorie malnutrition severity: severe Qualified Code(s): E43 - Unspecified severe prot ein-calorie malnutrition Is this a current diagnosis for this admission?: Yes Plan: Improving Now on Tube Feeds RD following. 06/25/2020 For the most part has been refusing tube feeds. Unable to correct malnutrition if the patient does not allow tube feeds to infuse 06/27/2020 Discussed with the dietitian. Will trial probiotics and pancreatic enzymes with trial dose of tube feed. 06/28/2020-with nausea and vomiting there is no point in trialing pancreatic enzyme with tube feeds. Once abdomen settles then will reconsider. (18) Tracheostomy in place Is this a current diagnosis for this admission?: Yes Plan: Continue tracheostomy care. Aggressive pulmonary toileting. 06/25/2020-routine tracheostomy care by nursing and respiratory therapy (19) Hypotension Qualifiers: Hypotension type: unspecified hypotension type Qualified Code(s): I95.9 - Hypotension, unspecified Is this a current diagnosis for this admission?: Yes Plan: Present on admission. Resolved (20) Candiduria Is this a current diagnosis for this admission?: Yes Plan: Resolved. - Plan Summary Summary: Patient with history refusing medical studies and treatment. Continues to refuse treatment and evaluation. Difficult to truly care for and manage patient due to his non-compliance and refusal of care. - Time Time Spent with patient: 15-24 minutes Anticipated Discharge Disposition: LTACH Anticipated Discharge Timeframe: when bed available
--- NOTE | 2020-06-28 19:16 | RADIOLOGY REPORT (SQ) ---
EXAM DESCRIPTION: KUB/ABDOMEN (SINGLE VIEW) IMAGES COMPLETED DATE/TIME: 06/28/2020 6:22 pm REASON FOR STUDY: Abdominal distention with nausea and vomiting J96.21 ACUTE AND CHRONIC RESPIRATOR Y FAILURE WITH HYPOXIA COMPARISON: 05/16/2020 NUMBER OF VIEWS: One view. TECHNIQUE: Supine radiographic image of the abdomen acquired. LIMITATIONS: None. FINDINGS: BOWEL GAS PATTERN: Considerable bowel gas. The bowel loops do not appear particularly dis tended, however. No evidence of bowel obstruction. There is retained stool in the distal large mignon l. CALCIFICATIONS: No suspicious calcifications. SOFT TISSUES: No gross mass or suggestion of organomegaly. HARDWARE: Gastrostomy tube or jejunostomy tube is seen. BONES: No acute fracture. No worrisome bone lesions. OTHER: No other significant finding. IMPRESSION: Retained stool in the distal large bowel. Cannot exclude fecal impaction. Considerable bowel gas as described. Cannot exclude ileus. TECHNICAL DOCUMENTATION: JOB ID: [id number] 2010 [employer]- All Rights Reserved Reading location - IP/workstation name: [email or web address]
[2020-06-28] MEDS ORDERED: MINERAL OIL ENEMA 133 ML PR ONE (21:30)
[2020-06-28] MEDS: METOCLOPRAMIDE HCL ORAL SOLN 10 MG/10 ML UDCUP PEG SCH (23:14)
[2020-06-29] MEDS: INSULIN REG, HUMAN 100 UNIT/ML 3 ML VIAL (PYX) SUBCUT SCH ×4 (01:22→18:26)
[2020-06-29] MEDS: MORPHINE SULFATE 10 MG/ML INJ IV PRN ×4 (04:51→22:09)
[2020-06-29] MEDS: ONDANSETRON HCL INJ/PF 4 MG/2 ML SDV IV PRN ×3 (04:52→15:08)
[2020-06-29] MEDS: METOCLOPRAMIDE HCL ORAL SOLN 10 MG/10 ML UDCUP PEG SCH ×2 (05:06→14:20)
[2020-06-29 06:36] LABS: HEMATOCRIT 27.4 % (37.9-51.0); HEMOGLOBIN 8.7 g/dL (13.5-17.0); MEAN CORPUSCULAR HEMOGLOBIN 26.8 pg (27.0-33.4); MEAN CORPUSCULAR HGB CONC 31.9 g/dL (32.0-36.0); MEAN CORPUSCULAR VOLUME 84 fl (80-97); PLATELET COUNT 472 10^3/uL (150-450); RED BLOOD COUNT 3.27 10^6/uL (4.35-5.55); RED CELL DISTRIBUTION WIDTH 17.8 % (11.5-14.0); WHITE BLOOD COUNT 22.5 10^3/uL (4.0-10.5)
[2020-06-29 06:50] LABS: BLOOD UREA NITROGEN 22 mg/dL (7-20); CALCIUM 8.3 mg/dL (8.4-10.2); CARBON DIOXIDE 33 mmol/L (22-30); GLUCOSE 77 mg/dL (75-110); POTASSIUM 3.8 mmol/L (3.6-5.0)
[2020-06-29 06:57] LABS: CHLORIDE 99 mmol/L (98-107)
[2020-06-29 07:01] LABS: ANION GAP 4 (5-19)
[2020-06-29] MEDS: DIPHENHYDRAMINE HCL 50 MG/ML VIAL IV PRN ×2 (07:43→22:06)
[2020-06-29] MEDS: DEXTROSE 5%-1/2 NORMAL SALINE 1,000 ML IV PRN (07:43)
[2020-06-29] MEDS: IPRATROPIUM/ALBUTEROL 0.5-2.5 MG/3 ML AMPUL NEB PRN ×2 (08:18→19:46)
[2020-06-29] MEDS: ACETYLCYSTEINE 20% SOLN 800 MG/4 ML VIAL.NEB NEB SCH ×2 (08:18→19:45)
[2020-06-29] MEDS: FENTANYL 25 MCG/HR PATCH.TD72 TD SCH (09:53)
[2020-06-29] MEDS: LOPERAMIDE HCL 2 MG CAPSULE PO SCH (09:54)
[2020-06-29] MEDS: FUROSEMIDE ORAL SOLN 40 MG/5 ML UDCUP PEG SCH (09:54)
[2020-06-29] MEDS: NORMAL SALINE 10 ML SDV (SCHEDULED) IV SCH ×2 (09:54→22:00)
[2020-06-29] MEDS: BUSPIRONE HCL 10 MG TABLET PEG SCH ×2 (09:54→17:48)
[2020-06-29] MEDS: AMINO AC/PROTEIN HYDR/WHEY PRO 11 GM/45 ML PKT PEG SCH ×2 (09:55→17:48)
[2020-06-29] MEDS ORDERED: BISACODYL 10 MG SUPP.RECT PR SCH ×2 (10:00→16:07)
--- NOTE | 2020-06-29 16:06 | PDOC PROGRESS REPORT ---
Subjective Date:: 06/29/20 Subjective:: The patient has been having liquid diarrhea. Abdominal film clearly shows large fecaliths in the distal colon. I explained to the patient that the liquid stool is working its way around this and he really does have a large amount of solid stool that needs to pass. That is why he is bloated. That is why is important to let us utilize the suction through the PEG tube. He also complains of room spinning when he lays flat. Reason For Visit: MUCOUS PLUGGING, ACUTE HYPOXIC RESPIRATORY FAILURE Physical Exam Vital Signs: Temp Pulse Resp BP Pulse Ox 97.7 F 102 H 30 H 109/67 94 06/29/20 11:56 06/29/20 14:00 06/29/20 11:56 06/29/20 11:56 06/29/20 15:25 Intake & Output 06/28/20 06/29/20 06/30/20 06:59 06:59 06:59 Intake Total 1000 2000 Output Total 1000 1275 Balance 0 725 Weight 70.2 kg 71.6 kg General appearance: PRESENT: cooperative, mild distress, thin Head exam: PRESENT: atraumatic, normocephalic Eye exam: PRESENT: nystagmus Ear exam: PRESENT: normal external ear exam. ABSENT: bleeding, drainage Mouth exam: PRESENT: moist, tongue midline Teeth exam: PRESENT: poor dentation Neck exam: PRESENT: tracheostomy - Ventilator dependent Respiratory exam: PRESENT: rhonchi - Rhonchorous breath sounds bilaterally, symmetrical, tachypnea, unlabored. ABSENT: wheezes Cardiovascular exam: PRESENT: RRR, +S1, +S2. ABSENT: bradycardia, diastolic murmur, irregular rhythm, systolic murmur, tachycardia GI/Abdominal exam: PRESENT: distended, hypoactive bowel sounds, soft, tenderness, other - PEG tube in place Rectal exam: PRESENT: deferred Gentrourinary exam: PRESENT: indwelling catheter Extremities exam: ABSENT: pedal edema Musculoskeletal exam: PRESENT: other - Decreased muscle mass. ABSENT: ambulatory Neurological exam: PRESENT: alert, awake, oriented to person, oriented to place, oriented to situation. ABSENT: altered Psychiatric exam: PRESENT: anxious, appropriate affect Focused psych exam: ABSENT: delusional, paranoid, restlessness Skin exam: PRESENT: pallor Results Laboratory Results: 06/29/20 06:10 06/29/20 06:10 06/29/20 06/29/20 06:10 06:10 WBC 22.5 H RBC 3.27 L Hgb 8.7 L Hct 27.4 L MCV 84 MCH 26.8 L MCHC 31.9 L RDW 17.8 H Plt Count 472 H Sodium 135.6 L Potassium 3.8 Chloride 99 Carbon Dioxide 33 H Anion Gap 4 L BUN 22 H Creatinine 0.83 Est GFR ( Amer) > 60 Glucose 77 Calcium 8.3 L GGT 20 04/20/20 04/23/20 04/23/20 09:00 01:55 01:55 Creatine Kinase < 20 L CK-MB (CK-2) 2.20 Troponin I < 0.012 0.082 NT-Pro-B Natriuret Pep [id number] H 04/23/20 04/23/20 04/23/20 05:58 08:22 14:50 Creatine Kinase < 20 L < 20 L CK-MB (CK-2) 2.24 Troponin I 0.066 NT-Pro-B Natriuret Pep 04/23/20 06/09/20 14:50 05:20 Creatine Kinase CK-MB (CK-2) 2.09 Troponin I 0.057 NT-Pro-B Natriuret Pep [id number] H Impressions: PICC Line Insertion 05/07/20 00:00 IMPRESSION: SUCCESSFUL PLACEMENT OF A 5 FR DUAL LUMEN 47 CM PICC IN THE LEFT BRACHIOCEPHALIC VEIN. Modified Barium Swallow 06/03/20 00:00 IMPRESSION: LARYNGEAL PENETRATION AND ASPIRATION ABOVE. HE WAS PLEASE SEE SPEECH PATHOLOGIST REPORT FOR OTHER FINDINGS AND RECOMMENDATIONS. Thoracentesis Ultrasound 06/08/20 14:12 IMPRESSION: SUCCESSFUL THORACENTESIS USING ULTRASOUND GUIDANCE. Chest CT 06/15/20 00:00 IMPRESSION: Moderate bilateral pleural effusions with bilateral multifocal pneumonia. Mediastinal lymphadenopathy is probably reactive. Chest X-Ray 06/24/20 00:00 IMPRESSION: Small bilateral pleural effusions Stable diffuse bilateral airspace disease KUB X-Ray 06/28/20 00:00 IMPRESSION: Retained stool in the distal large bowel. Cannot exclude fecal impaction. Considerable bowel gas as described. Cannot exclude ileus. Assessment and Plan - Diagnosis (1) Bilateral pneumonia Qualifiers: Pneumonia type: aspiration pneumonia Lung location: lower lobe of lung Is this a current diagnosis for this admission?: Yes Plan: Repeat CXR, blood culture and labs ordered today. Hopes pt agrees. Previously refused. - CT chest 06/15 notable for moderate sized pleural effusion and bilateral pneumonia - Tracheal aspirate 06/15 positive for staph aureus, sternotrophomonas, Enterobacter cloacae similar to his previous sputum cultures - Ceftriaxone started 06/16 as per sensitivity. Pt previously refused f/u studies repeatedly. Patient made aware of need for studies to monitor disease progression/appropriate treatment. He expresses understanding and refuses further labs or imaging at this time. 06/25/2020 Still with significant congestion and abnormal x-ray. It appears that he completed a course of ceftriaxone and recently had a course of Zyvox. He originally had an infection with COVID-19 and has had complications with dysphagia and aspiration during his hospitalization. He is still ventilator dependent. We will continue to monitor closely. 06/27/2020 Good secretions with ET tube suction. Lungs actually starting to sound better. 06/28/2020 Antibiotic therapy completed. The patient cannot have anything by mouth as he has high risk of aspiration. (2) Urinary tract infection Qualifiers: Urinary tract infection type: catheter-associated UTI Is this a current diagnosis for this admission?: Yes Plan: Chronic Varner catheter most recently changed 06/14/20 - UC 06/14 + Enterobacter cloacae. Sensitive to ceftriaxone. - 06/13 WBC 23; has refused labs since. - Remains afebrile -Ceftriaxone started 06/16 - 06/23. 06/25/2020 Antibiotic therapy completed as above 06/28/2020 Infection resolved (3) Leukocytosis Qualifiers: Leukocytosis type: unspecified Qualified Code(s): D72.829 - Elevated white blood cell count, unspecified Is this a current diagnosis for this admission?: Yes Plan: WBC 13.5> 16.2-> 15.2-> 14.4-> 14.5> 23.3 -> 14.6 (06/22) - Persistently afebrile with VSS. - Refused to repeat chest x-ray to assess for possible pneumonia. - Blood culture 05/09/2020 without growth in 5 days; refuses repeat BC. - Likely secondary to UTI, as above. - Continue Ceftriaxone as above As above, patient refusing furthering imaging or labs, unfortunately unable to identify or locate origin of infection at this time. Patient understanding of this and continues to refuse labs/imaging. 06/25/2020 The last blood count that the patient allowed to be drawn was on June 22. White blood cell count was 14.6 as noted above. He has not allowed any further blood work to be drawn. 06/28/2020 Check white blood cell count tomorrow 06/29/2020 White blood cell count is elevated today at 22.5. No obvious source of infection. Patient is afebrile. Will monitor closely. (4) Acute on chronic respiratory failure with hypoxia and hypercapnia Is this a current diagnosis for this admission?: Yes Plan: Tenuously improved; now maintaining oxygen saturations of 98% on FiO2 80%. Continues to require vent PRVC setting. Has a trach and on mechanical ventilation; multiple failed weaning trials. Has required increased FiO2 to maintain SpO2 over the last 24-36 hours. CXR showed significantly increased right pleural effusion. Persistent patchy airspace opacities in both lungs; slight improvement in the left upper lobe. Repeat CXR w/ Interval increase in opacity overlying the right middle to lower lung zones; recommend CT chest follow-up. ABG resulted pH 7.31, pCO2 72.8, pO2 42.5, HCO3 35.8 was obtained shortly after desaturation event requiring short period of BVM while making adjustments to ventilator equipment. Repeat ABG on AVAPS/FiO2 100% pH 7.39, pCO2 64.6, pO2 62.3, HCO3 38.2 Placed back on Vent/FiO2 100% pH 7.36, pCO2 66.2, pO2 102.5, HCO3 38.8 Now s/p thoracentesis w/ ~800 ml removed. Pleural effusion w/ WBC 367, RBC 88. LDH 138, Albumin 0.7, Glucose 174. Cultures no growth at [address] chest pending; patient continues to refuse. Cautiously diuresed with IV furosemide; excellent urinary output. Unfortunately, refusing labs to assess K and renal function. Will resume his home dose furosemide 20 mg po daily as peripheral edema has resolved. Pleural effusion possibly related to CHF (echocardiogram (03/27/2020) shows LVEF 35 to 40%) vs infectious process (HAP/Aspiration PNA). WBC w/ gradual downward trend. Remains afebrile. Will hold on abx for now. Improved; maintaining oxygen saturations of 98% on FiO2 75%. - Continues to require vent PRVC setting. - Has a trach and on mechanical ventilation; multiple failed weaning trials. - CXR 06/08 Interval increase in opacity overlying the right middle to lower lung zones - Now s/p thoracentesis 06/08 with ~800 ml removed. - Pleural effusion w/ WBC 367, RBC 88. - LDH 138, Albumin 0.7, Glucose 174. - Cultures no growth. - Repeat CT 06/15 chest moderate bilateral pleural effusion and multifocal pneumonia (Ceftriaxone as above) - Continue with ventilator 06/25/2020 Continue ventilator support. Chest x-ray yesterday still shows bilateral infiltrative process. 06/27/2020 Continue tracheostomy care and suction 06/28/2020 Currently ventilator dependent 06/29/2020 Needs transfer to long-term acute care hospital that specializes in long-term vent weaning. (5) Chronic pain Qualifiers: Chronic pain type: other chronic pain Qualified Code(s): G89.29 - Other chronic pain Is this a current diagnosis for this admission?: Yes Plan: Continued difficulty with managing patient's opiate dependence, chronic pain, desire for IV route, and hypoxia. - Previous provider notes reviewed - Morphine 10 mg via PEG q4h prn as per pain management recommendations. - This was adjusted to Morphine 7.5mg q3hrs with improvement in pt treatment toward nursing. - Pain management with recommendations to not renegotiate pain medications with the patient to maintain on this current 24-hour morphine dose. Pain medications to be held if patient is not receiving tube feeds due to risk. Pain medications may be administered if pt receiving tube feeds No changes in the current treatment plan 06/27/2020 Despite fentanyl patch the patient still wants more pain medications. We will continue the patch and go back to pain medication through the PEG tube. 06/28/2020 Initiated fentanyl patch. 06/29/2020 Fentanyl patch seems to be working. Patient's request for breakthrough medication could be more related to dependence than actual pain. (6) Anxiety about health Is this a current diagnosis for this admission?: Yes Plan: As per previous providers on case and nursing patient with frequent anxiety attacks regarding his current state of health. - Continue buspar 10 BID - Utilize vistaril 25m q8prn during acute bouts. - Advised against benzo therapy. 06/25/2020 We will revisit the topic of depression and possible use of antidepressant medication 06/29/2020 The patient admitted that he is quite anxious and likely depressed and overwhelmed. Will initiate therapy. With his current GI status a rapid oral dissolving formulation would be best. (7) Critical illness myopathy Is this a current diagnosis for this admission?: Yes Plan: With history of ICU and prolonged hospital stay - Given 3+ month hx hpspital admission would require extensive rehab - PT/OT/ST consulted - Pt continues to refuse rehab 06/25/2020 as above 06/28/2020-physical therapy did see the patient again. They feel that with a Jesse lift they can accomplish safe transition from bed to chair. At this point the patient would not be able to adequately self propel especially since he cannot detach himself from the ventilator. 06/29/2020-no therapy today. Likely training for staff with Jesse lift next week. (8) Dysphagia Qualifiers: Dysphagia type: oropharyngeal phase Qualified Code(s): R13.12 - Dysphagia, oropharyngeal phase Is this a current diagnosis for this admission?: Yes Plan: Now with PEG - Most recent swallow eval 06/03/20, failed. - currently receiving feeding via PEG with free water flushes. - Na stable as per previous labs. - Unable to monitor due to lab refusal. Patient receiving tube feeds as of today. Previously refused tube feeds due to diarrhea. Given Imodium prior to tube feeds with hopes this will prevent diarrhea. 06/25/2020 Nursing reports that the patient has declined tube feeds at this time. 06/28/2020 Continue n.p.o. status (9) Bacteremia due to Enterococcus Is this a current diagnosis for this admission?: Yes Plan: Resolved - 05/07 + BC enterococcus - 05/09 BC without growth > 5 days - Completed Abx course - TTE as recommended by ID pending, pt has refused. No further intervention at this time (10) MSSA bacteremia Is this a current diagnosis for this admission?: Yes Plan: Resolved, completed abx treatment - BC 05/07 + MSSA - BC 05/09 without growth > 5 days - Patient refusing repeat blood culture. - Patient refusing echocardiogram as recommended by ID. 06/25/2020-as above (11) Hyperglycemia due to type 2 diabetes mellitus Qualifiers: Diabetes mellitus intermodal dispatcher insulin use: with intermodal dispatcher use Qualified Code(s): E11.65 - Type 2 diabetes mellitus with hyperglycemia; Z79.4 - intermodal dispatcher (current) use of insulin Is this a current diagnosis for this admission?: Yes Plan: Patient without hypoglycemia today on accucheck, likely because patient refusing tube feeds. - Tx'd with dextrose - Pt educated on the need of tube feeds and risk associated with hypoglycemic episodes. - Patient does not acknowledge information provided. - Hypoglycemic protocol in place 06/25/2020 Patient is allowing Accu-Cheks. Last Accu-Cheks were within the normal range for the most part. Need to monitor for hypoglycemia with the patient refusing tube feeds. [id number] have excellent control. We will try and obtain serum chemistries tomorrow 06/29/2020-no change at this time (12) Acute kidney injury superimposed on chronic kidney disease Is this a current diagnosis for this admission?: Yes Plan: Resolved. - BUN/Creatinine 23/0.90 today 06/25/2020 Per last blood work GFR remains greater than 60 06/28/2020-I have ordered blood work for tomorrow. Hopefully the patient will allow phlebotomy to draw his blood. 06/29/2020-renal function now normal (13) Acute metabolic encephalopathy Is this a current diagnosis for this admission?: Yes Plan: Resolved. Primarily the result of infection but multiple other comorbidities likely contributing. Currently resolved. 06/29/2020 Encephalopathy is resolved. Possible depression with occasional agitation. (14) Debility Is this a current diagnosis for this admission?: Yes Plan: PT/OT/ST consulted though repeatedly refusing - Needs LTAC placement (15) Dependent on ventilator Is this a current diagnosis for this admission?: Yes Plan: O2 saturation 100% with FiO2 75. -Slowly wean this tolerated. -Rose Mary will faily secondary to bilateral pleural portion of multifocal pneumonia. - Discharge planning sending out referrals to [id number] facilities to take him; denies by all instate facilities 06/25/2020 Would benefit from placement at a long-term acute care hospital for long-term ventilator weaning (16) Nausea and vomiting Qualifiers: Vomiting type: unspecified Vomiting Intractability: non-intractable Qualified Code(s): R11.2 - Nausea with vomiting, unspecified Is this a current diagnosis for this admission?: Yes Plan: No NV today. Though comes in wave. Shelby BORRERON. 06/25/2020-stable/no changes 06/27/2020-after further discussion we will consider pancreatic enzyme replacement and trial dose of tube feeds. 06/28/2020-the nurse reports that the patient is still having bilious vomiting. He does have a PEG tube in place. I will institute a trial of intermittent low wall suction to decompress the belly. 06/29/2020-abdominal film revealed retained feces in the distal colon. I explained to the patient that this is part of the problem. His bowel gets backed up and filled with gas. The gastric secretions and likely secretions from the proximal duodenum can build up in the stomach causing nausea and vomiti ng. He has refused the suction through the PEG tube. As I explained the pathology he understands the need for suctioning. We will try and utilize suction overnight and then intermittently during the day. We will also change from Zofran to Phenergan. (17) Malnutrition Qualifiers: Malnutrition type: protein-calorie malnutrition Protein-calorie malnutrition severity: severe Qualified Code(s): E43 - Unspecified severe protein-calorie malnutrition Is this a current diagnosis for this admission?: Yes Plan: Improving Now on Tube Feeds RD following. 06/25/2020 For the most part has been refusing tube feeds. Unable to correct malnutrition if the patient does not allow tube feeds to infuse 06/27/2020 Discussed with the dietitian. Will trial probiotics and pancreatic enzymes with trial dose of tube feed. 06/28/2020-with nausea and vomiting there is no point in trialing pancreatic enzyme with tube feeds. Once abdomen settles then will reconsider. 06/29/2020-once GI issues resolve then initiate trial of tube feeds preceded by pancreatic enzymes (18) Tracheostomy in place Is this a current diagnosis for this admission?: Yes Plan: Continue tracheostomy care. Aggressive pulmonary toileting. 06/25/2020-routine tracheostomy care by nursing and respiratory therapy (19) Hypotension Qualifiers: Hypotension type: unspecified hypotension type Qualified Code(s): I95.9 - Hypotension, unspecified Is this a current diagnosis for this admission?: Yes Plan: Present on admission. Resolved (20) Candiduria Is this a current diagnosis for this admission?: Yes Plan: Resolved. (21) Vertigo Is this a current diagnosis for this admission?: Yes Plan: 06/29/2020 Trial of Phenergan on top of his scopolamine patch. We do not carry a rapidly dissolving meclizine formulation. Once his nausea and vomiting subside then we can use oral meclizine. - Plan Summary Summary: Patient with history refusing medical studies and treatment. Continues to refuse treatment and evaluation. Difficult to truly care for and manage patient due to his non-compliance and refusal of care. - Time Time Spent with patient: 25-34 minutes Medications reviewed and adjusted accordingly: Yes Anticipated Discharge Disposition: LTACH Anticipated Discharge Timeframe: when bed available
[2020-06-29] MEDS ORDERED: MINERAL OIL ENEMA 133 ML PR ONE (22:00)
[2020-06-30] MEDS: INSULIN REG, HUMAN 100 UNIT/ML 3 ML VIAL (PYX) SUBCUT SCH ×5 (02:20→23:05)
[2020-06-30] MEDS: DEXTROSE 5%-1/2 NORMAL SALINE 1,000 ML IV PRN ×2 (03:20→21:27)
[2020-06-30] MEDS: MORPHINE SULFATE 10 MG/ML INJ IV PRN ×3 (03:29→17:52)
[2020-06-30] MEDS: HYDROXYZINE HCL INJ 50 MG/1 ML VIAL IM PRN (04:38)
[2020-06-30] MEDS ORDERED: DEXTROSE 50%-WATER 25 GM/50 ML DISP.SYRIN IV ONE (04:54)
[2020-06-30] MEDS ORDERED: GLUCAGON,HUMAN RECOMB 1 MG INJ IM PRN (05:30)
[2020-06-30] MEDS ORDERED: DEXTROSE 40% GEL 15 GM TUBE X 2 PO PRN (05:30)
[2020-06-30] MEDS ORDERED: DEXTROSE 40% GEL 15 GM TUBE PO PRN (05:30)
[2020-06-30] MEDS ORDERED: DEXTROSE 50%-WATER SYRINGE 25 GM/50 ML DOSE IV PRN (05:30)
[2020-06-30] MEDS ORDERED: MINERAL OIL ENEMA 133 ML PR ONE ×2 (05:56→06:00)
[2020-06-30] MEDS: IPRATROPIUM/ALBUTEROL 0.5-2.5 MG/3 ML AMPUL NEB PRN ×2 (08:30→20:53)
[2020-06-30] MEDS: ACETYLCYSTEINE 20% SOLN 800 MG/4 ML VIAL.NEB NEB SCH ×2 (08:30→20:53)
[2020-06-30] MEDS: AMINO AC/PROTEIN HYDR/WHEY PRO 11 GM/45 ML PKT PEG SCH ×2 (10:20→17:47)
[2020-06-30] MEDS: NORMAL SALINE 10 ML SDV (SCHEDULED) IV SCH ×2 (10:20→21:27)
[2020-06-30] MEDS: FUROSEMIDE ORAL SOLN 40 MG/5 ML UDCUP PEG SCH (10:20)
[2020-06-30] MEDS: BUSPIRONE HCL 10 MG TABLET PEG SCH ×2 (10:20→17:47)
[2020-06-30] MEDS: PROMETHAZINE HCL INJ 25 MG/1 ML VIAL IV PRN (13:37)
[2020-06-30] MEDS: DIPHENHYDRAMINE HCL 50 MG/ML VIAL IV PRN (13:37)
--- NOTE | 2020-06-30 17:26 | PDOC PROGRESS REPORT ---
Subjective Date:: 06/30/20 Subjective:: The patient is having increased secretions again today. In fact he is having mu cus leak around the tracheostomy tube. Reason For Visit: MUCOUS PLUGGING, ACUTE HYPOXIC RESPIRATORY FAILURE Physical Exam Vital Signs: Temp Pulse Resp BP Pulse Ox 97.8 F 95 23 H 120/69 94 06/30/20 12:24 06/30/20 14:00 06/30/20 12:24 06/30/20 12:24 06/30/20 16:00 Intake & Output 06/29/20 06/30/20 07/01/20 06:59 06:59 06:59 Intake Total 1999 981 Output Total 1275 430 100 Balance 725 551 -100 Weight 71.6 kg 71.2 kg General appearance: PRESENT: mild distress, other - Nonverbal with tracheostomy in place Head exam: PRESENT: atraumatic, normocephalic Ear exam: PRESENT: normal external ear exam. ABSENT: bleeding, drainage Teeth exam: PRESENT: poor dentation Respiratory exam: PRESENT: rhonchi - Rhonchorous breath sounds bilaterally, s ymmetrical, unlabored. ABSENT: rales, tachypnea, wheezes Cardiovascular exam: PRESENT: RRR, +S1, +S2. ABSENT: bradycardia, diastolic murmur, irregular rhythm, systolic murmur, tachycardia GI/Abdominal exam: PRESENT: distended, hypoactive bowel sounds, soft, other - Tympanic. ABSENT: tenderness Rectal exam: PRESENT: deferred Gentrourinary exam: PRESENT: indwelling catheter Musculoskeletal exam: PRESENT: other - Decreased muscle mass. ABSENT: ambulatory Neurological exam: PRESENT: alert, awake, oriented to person, other - Limited evaluation due to tracheostomy/ventilator Psychiatric exam: PRESENT: flat affect. ABSENT: agitated, anxious Focused psych exam: ABSENT: delusional, paranoid, restlessness Skin exam: PRESENT: pallor Results Laboratory Results: 06/29/20 06:10 06/29/20 06:10 04/20/20 04/23/20 04/23/20 09:00 01:55 01:55 Creatine Kinase < 20 L CK-MB (CK-2) 2.20 Troponin I < 0.012 0.082 NT-Pro-B Natriuret Pep 19988 H 04/23/20 04/23/20 04/23/20 05:58 08:22 14:50 Creatine Kinase < 20 L < 20 L CK-MB (CK-2) 2.24 Troponin I 0.066 NT-Pro-B Natriuret Pep 04/23/20 06/09/20 14:50 05:20 Creatine Kinase CK-MB (CK-2) 2.09 Troponin I 0.057 NT-Pro-B Natriuret Pep 12641 H Impressions: PICC Line Insertion 05/07/20 00:00 IMPRESSION: SUCCESSFUL PLACEMENT OF A 5 FR DUAL LUMEN 47 CM PICC IN THE LEFT BRACHIOCEPHALIC VEIN. Modified Barium Swallow 06/03/20 00:00 IMPRESSION: LARYNGEAL PENETRATION AND ASPIRATION ABOVE. HE WAS PLEASE SEE SPEECH PATHOLOGIST REPORT FOR OTHER FINDINGS AND RECOMMENDATIONS. Thoracentesis Ultrasound 06/08/20 14:12 IMPRESSION: SUCCESSFUL THORACENTESIS USING ULTRASOUND GUIDANCE. Chest CT 06/15/20 00:00 IMPRESSION: Moderate bilateral pleural effusions with bilateral multifocal pneumonia. Mediastinal lymphadenopathy is probably reactive. Chest X-Ray 06/24/20 00:00 IMPRESSION: Small bilateral pleural effusions Stable diffuse bilateral airspace disease KUB X-Ray 06/28/20 00:00 IMPRESSION: Retained stool in the distal large bowel. Cannot exclude fecal impaction. Considerable bowel gas as described. Cannot exclude ileus. Assessment and Plan - Diagnosis (1) Bilateral pneumonia Qualifiers: Pneumonia type: aspiration pneumonia Lung location: lower lobe of lung Is this a current diagnosis for this admission?: Yes Plan: Repeat CXR, blood culture and labs ordered today. Hopes pt agrees. Previously refused. - CT chest 06/15 notable for moderate sized pleural effusion and bilateral pneumonia - Tracheal aspirate 06/15 positive for staph aureus, sternotrophomonas, Enterobacter cloacae similar to his previous sputum cultures - Ceftriaxone started 06/16 as per sensitivity. Pt previously refused f/u studies repeatedly. Patient made aware of need for studies to monitor disease progression/appropriate treatment. He expresses understanding and refuses further labs or imaging at this time. 06/25/2020 Still with significant congestion and abnormal x-ray. It appears that he completed a course of ceftriaxone and recently had a course of Zyvox. He originally had an infection with COVID-19 and has had complications with dysphagia and aspiration during his hospitalization. He is still ventilator dependent. We will continue to monitor closely. 06/27/2020 Good secretions with ET tube suction. Lungs actually starting to sound better. 06/28/2020 Antibiotic therapy completed. The patient cannot have anything by mouth as he has high risk of aspiration. (2) Urinary tract infection Qualifiers: Urinary tract infection type: catheter-associated UTI Is this a current diagnosis for this admission?: Yes Plan: Chronic Varner catheter most recently changed 06/14/20 - UC 06/14 + Enterobacter cloacae. Sensitive to ceftriaxone. - 06/13 WBC 23; has refused labs since. - Remains afebrile -Ceftriaxone started 06/16 - 06/23. 06/25/2020 Antibiotic therapy completed as above 06/28/2020 Infection resolved (3) Leukocytosis Qualifiers: Leukocytosis type: unspecified Qualified Code(s): D72.829 - Elevated white blood cell count, unspecified Is this a current diagnosis for this admission?: Yes Plan: WBC 13.5> 16.2-> 15.2-> 14.4-> 14.5> 23.3 -> 14.6 (06/22) - Persistently afebrile with VSS. - Refused to repeat chest x-ray to assess for possible pneumonia. - Blood culture 05/09/2020 without growth in 5 days; refuses repeat BC. - Likely secondary to UTI, as above. - Continue Ceftriaxone as above As above, patient refusing furthering imaging or labs, unfortunately unable to identify or locate origin of infection at this time. Patient understanding of this and continues to refuse labs/imaging. 06/25/2020 The last blood count that the patient allowed to be drawn was on June 22. White blood cell count was 14.6 as noted above. He has not allowed any further blood work to be drawn. 06/28/2020 Check white blood cell count tomorrow 06/29/2020 White blood cell count is elevated today at 22.5. No obvious source of infection. Patient is afebrile. Will monitor closely. 06/30/2020-white blood cell count was elevated yesterday. Will recheck tomorrow. (4) Acute on chronic respiratory failure with hypoxia and hypercapnia Is this a current diagnosis for this admission?: Yes Plan: Tenuously improved; now maintaining oxygen saturations of 98% on FiO2 80%. Continues to require vent PRVC setting. Has a trach and on mechanical ventilation; multiple failed weaning trials. Has required increased FiO2 to maintain SpO2 over the last 24-36 hours. CXR showed significantly increased right pleural effusion. Persistent patchy airspace opacities in both lungs; slight improvement in the left upper lobe. Repeat CXR w/ Interval increase in opacity overlying the right middle to lower lung zones; recommend CT chest follow-up. ABG resulted pH 7.31, pCO2 72.8, pO2 42.5, HCO3 35.8 was obtained shortly after desaturation event requiring short period of BVM while making adjustments to ventilator equipment. Repeat ABG on AVAPS/FiO2 100% pH 7.39, pCO2 64.6, pO2 62.3, HCO3 38.2 Placed back on Vent/FiO2 100% pH 7.36, pCO2 66.2, pO2 102.5, HCO3 38.8 Now s/p thoracentesis w/ ~800 ml removed. Pleural effusion w/ WBC 367, RBC 88. LDH 138, Albumin 0.7, Glucose 174. Cultures no growth at [address] chest pending; patient continues to refuse. Cautiously diuresed with IV furosemide; excellent urinary output. Unfortunately, refusing labs to assess K and renal function. Will resume his home dose furosemide 20 mg po daily as peripheral edema has resolved. Pleural effusion possibly related to CHF (echocardiogram (03/27/2020) shows LVEF 35 to 40%) vs infectious process (HAP/Aspiration PNA). WBC w/ gradual downward trend. Remains afebrile. Will hold on abx for now. Improved; maintaining oxygen saturations of 98% on FiO2 75%. - Continues to require vent PRVC setting. - Has a trach and on mechanical ventilation; multiple failed weaning trials. - CXR 06/08 Interval increase in opacity overlying the right middle to lower lung zones - Now s/p thoracentesis 06/08 with ~800 ml removed. - Pleural effusion w/ WBC 367, RBC 88. - LDH 138, Albumin 0.7, Glucose 174. - Cultures no growth. - Repeat CT 06/15 chest moderate bilateral pleural effusion and multifocal pneumonia (Ceftriaxone as above) - Continue with ventilator 06/25/2020 Continue ventilator support. Chest x-ray yesterday still shows bilateral infiltrative process. 06/27/2020 Continue tracheostomy care and suction 06/28/2020 Currently ventilator dependent 06/29/2020 Needs transfer to long-term acute care hospital that specializes in long-term vent weaning. 06/30/2020-we will work on ventilator weaning trials. (5) Chronic pain Qualifiers: Chronic pain type: other chronic pain Qualified Code(s): G89.29 - Other chronic pain Is this a current diagnosis for this admission?: Yes Plan: Continued difficulty with managing patient's opiate dependence, chronic pain, desire for IV route, and hypoxia. - Previous provider notes reviewed - Morphine 10 mg via PEG q4h prn as per pain management recommendations. - This was adjusted to Morphine 7.5mg q3hrs with improvement in pt treatment toward nursing. - Pain management with recommendations to not renegotiate pain medications with the patient to maintain on this current 24-hour morphine dose. Pain medications to be held if patient is not receiving tube feeds due to risk. Pain medications may be administered if pt receiving tube feeds No changes in the current treatment plan 06/27/2020 Despite fentanyl patch the patient still wants more pain medications. We will continue the patch and go back to pain medication through the PEG tube. 06/28/2020 Initiated fentanyl patch. 06/29/2020 Fentanyl patch seems to be working. Patient's request for breakthrough medication could be more related to dependence than actual pain. 06/30/2020-continue fentanyl patch. Begin decreasing breakthrough pain medications. (6) Anxiety about health Is this a current diagnosis for this admission?: Yes Plan: As per previous providers on case and nursing patient with frequent anxiety attacks regarding his current state of health. - Continue buspar 10 BID - Utilize vistaril 25m q8prn during acute bouts. - Advised against benzo therapy. 06/25/2020 We will revisit the topic of depression and possible use of antidepressant medication 06/29/2020 The patient admitted that he is quite anxious and likely depressed and overwhelmed. Will initiate therapy. With his current GI status a rapid oral dissolving formulation would be best. (7) Critical illness myopathy Is this a current diagnosis for this admission?: Yes Plan: With history of ICU and prolonged hospital stay - Given 3+ month hx hpspital admission would require extensive rehab - PT/OT/ST consulted - Pt continues to refuse rehab 06/25/2020 as above 06/28/2020-physical therapy did see the patient again. They feel that with a Jesse lift they can accomplish safe transition from bed to chair. At this point the patient would not be able to adequately self propel especially since he cannot detach himself from the ventilator. 06/29/2020-no therapy today. Likely training for staff with Jesse lift next week. (8) Dysphagia Qualifiers: Dysphagia type: oropharyngeal phase Qualified Code(s): R13.12 - Dysphagia, oropharyngeal phase Is this a current diagnosis for this admission?: Yes Plan: Now with PEG - Most recent swallow eval 06/03/20, failed. - currently receiving feeding via PEG with free water flushes. - Na stable as per previous labs. - Unable to monitor due to lab refusal. Patient receiving tube feeds as of today. Previously refused tube feeds due to diarrhea. Given Imodium prior to tube feeds with hopes this will prevent diarrhea. 06/25/2020 Nursing reports that the patient has declined tube feeds at this time. 06/28/2020 Continue n.p.o. status (9) Bacteremia due to Enterococcus Is this a current diagnosis for this admission?: Yes Plan: Resolved - 05/07 + BC enterococcus - 05/09 BC without growth > 5 days - Completed Abx course - TTE as recommended by ID pending, pt has refused. No further intervention at this time (10) MSSA bacteremia Is this a current diagnosis for this admission?: Yes Plan: Resolved, completed abx treatment - BC 05/07 + MSSA - BC 05/09 without growth > 5 days - Patient refusing repeat blood culture. - Patient refusing echocardiogram as recommended by ID. 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 - Tx'd with dextrose - Pt educated on the need of tube feeds and risk associated with hypoglycemic episodes. - Patient does not acknowledge information provided. - Hypoglycemic protocol in place 06/25/2020 Patient is allowing Accu-Cheks. Last Accu-Cheks were within the normal range for the most part. Need to monitor for hypoglycemia with the patient refusing tube feeds. [id number] have excellent control. We will try and obtain serum chem istries tomorrow 06/29/2020-no change at this time (12) Acute kidney injury superimposed on chronic kidney disease Is this a current diagnosis for this admission?: Yes Plan: Resolved. - BUN/Creatinine 23/0.90 today 06/25/2020 Per last blood work GFR remains greater than 60 06/28/2020-I have ordered blood work for tomorrow. Hopefully the patient will allow phlebotomy to draw his blood. 06/29/2020-renal function now normal (13) Acute metabolic encephalopathy Is this a current diagnosis for this admission?: Yes Plan: Resolved. Primarily the result of infection but multiple other comorbidities likely contributing. Currently resolved. 06/29/2020 Encephalopathy is resolved. Possible depression with occasional agitation. (14) Debility Is this a current diagnosis for this admission?: Yes Plan: PT/OT/ST consulted though repeatedly refusing - Needs LTAC placement (15) Dependent on ventilator Is this a current diagnosis for this admission?: Yes Plan: O2 saturation 100% with FiO2 75. -Slowly wean this tolerated. -[place] will faily secondary to bilateral pleural portion of multifocal pneumonia. - Discharge planning sending out referrals to [id number] facilities to take him; denies by all instate facilities 06/25/2020 Would benefit from placement at a long-term acute care hospital for long-term ventilator weaning 06/30/2020-FiO2 is up to 60%. Tidal volumes between 450 and 500 mL. (16) Nausea and vomiting Qualifiers: Vomiting type: unspecified Vomiting Intractability: non-intractable Qualified Code(s): R11.2 - Nausea with vomiting, unspecified Is this a current diagnosis for this admission?: Yes Plan: No NV today. Though comes in wave. [place] PRN. 06/25/2020-stable/no changes 06/27/2020-after further discussion we will consider pancreatic enzyme replacement and trial dose of tube feeds. 06/28/2020-the nurse reports that the patient is still having bilious vomiting. He does have a PEG tube in place. I will institute a trial of intermittent low wall suction to decompress the belly. 06/29/2020-abdominal film revealed retained feces in the distal colon. I explained to the patient that this is part of the problem. His bowel gets backed up and filled with gas. The gastric secretions and likely secretions from the proximal duodenum can build up in the stomach causing nausea and vomiting. He has refused the suction through the PEG tube. As I explained the pathology he understands the need for suctioning. We will try and utilize suction overnight and then intermittently during the day. We will also change from Zofran to Phenergan. (17) Malnutrition Qualifiers: Malnutrition type: protein-calorie malnutrition Protein-calorie malnutrition severity: severe Qualified Code(s): E43 - Unspecified severe protein-calorie malnutrition Is this a current diagnosis for this admission?: Yes Plan: Improving Now on Tube Feeds RD following. 06/25/2020 For the most part has been refusing tube feeds. Unable to correct malnutrition if the patient does not allow tube feeds to infuse 06/27/2020 Discussed with the dietitian. Will trial probiotics and pancreatic enzymes with trial dose of tube feed. 06/28/2020-with nausea and vomiting there is no point in trialing pancreatic enzyme with tube feeds. Once abdomen settles then will reconsider. 06/29/2020-once GI issues resolve then initiate trial of tube feeds preceded by pancreatic enzymes 06/30/2020-we will check another prealbumin tomorrow. (18) Hypotension Qualifiers: Hypotension type: unspecified hypotension type Qualified Code(s): I95.9 - Hypotension, unspecified Is this a current diagnosis for this admission?: Yes Plan: Present on admission. Resolved (19) Candiduria Is this a current diagnosis for this admission?: Yes Plan: Resolved. (20) Vertigo Is this a current diagnosis for this admission?: Yes Plan: 06/29/2020 Trial of Phenergan on top of his scopolamine patch. We do not carry a rapidly dissolving meclizine formulation. Once his nausea and vomiting subside then we can use oral meclizine. 06/30/2020-no complaints of vertigo today (21) Retained feces Qualifiers: Constipation type: drug induced constipation Qualified Code(s): K59.03 - Drug induced constipation Is this a current diagnosis for this admission?: Yes Plan: 06/30/2020-with his chronic narcotic use the patient exhibits retained fecalith in the distal colon. Despite watery bowel movements we still need to utilize bowel preps to clean the colon. If we could decompress his bowels then we could initiate therapy with lactulose. We will continue to monitor closely. Repeat KUB tomorrow. - Plan Summary Summary: Patient with history refusing medical studies and treatment. Continues to refuse treatment and evaluation. Difficult to truly care for and manage patient due to his non-compliance and refusal of care. - Time Time Spent with patient: 15-24 minutes Medications reviewed and adjusted accordingly: Yes Anticipated Discharge Disposition: LTACH Anticipated Discharge Timeframe: when bed available
[2020-07-01] MEDS: DIPHENHYDRAMINE HCL 50 MG/ML VIAL IV PRN ×2 (04:26→12:42)
[2020-07-01] MEDS: HYDROXYZINE HCL INJ 50 MG/1 ML VIAL IM PRN ×2 (04:27→13:59)
[2020-07-01] MEDS: MORPHINE SULFATE 10 MG/ML INJ IV PRN ×3 (04:27→17:56)
[2020-07-01] MEDS: INSULIN REG, HUMAN 100 UNIT/ML 3 ML VIAL (PYX) SUBCUT SCH ×4 (05:10→23:29)
[2020-07-01] MEDS: IPRATROPIUM/ALBUTEROL 0.5-2.5 MG/3 ML AMPUL NEB PRN ×2 (08:27→20:16)
[2020-07-01] MEDS: ACETYLCYSTEINE 20% SOLN 800 MG/4 ML VIAL.NEB NEB SCH ×2 (08:27→20:16)
--- NOTE | 2020-07-01 09:34 | RADIOLOGY REPORT (SQ) ---
EXAM DESCRIPTION: KUB/ABDOMEN (SINGLE VIEW) IMAGES COMPLETED DATE/TIME: 07/01/2020 8:33 am REASON FOR STUDY: ileus J96.21 ACUTE AND CHRONIC RESPIRATORY FAILURE WITH HYPOXIA COMPARISON: AP views of the abdomen from 06/28/2020. NUMBER OF VIEWS: One view. TECHNIQUE: An AP view of the abdomen was obtained. LIMITATIONS: None. FINDINGS: BOWEL GAS PATTERN: There are several air-filled distended loops of bowel in the mid and up per abdomen and a considerable burden of fecal material in the distal colon. CALCIFICATIONS: No calcifications projecting within the renal fossae. SOFT TISSUES: No acute gross abnormality. HARDWARE: The tip of the left upper extremity PICC projects within the SVC. There is a gastrostomy t ube in place. BONES: No acute abnormality. OTHER: No other findings. IMPRESSION: Unchanged radiographic appearance of the abdomen with a considerable burden of fecal mat erial in the distal colon and air-filled distended loops of bowel in the mid and upper abdomen. TECHNICAL DOCUMENTATION: JOB ID: [id number] 2010 [employer]- All Rights Reserved Reading location - IP/workstation name: [email or web address]
[2020-07-01] MEDS: BUSPIRONE HCL 10 MG TABLET PEG SCH ×2 (10:37→17:15)
[2020-07-01] MEDS: AMINO AC/PROTEIN HYDR/WHEY PRO 11 GM/45 ML PKT PEG SCH ×2 (10:38→17:15)
[2020-07-01] MEDS: FUROSEMIDE ORAL SOLN 40 MG/5 ML UDCUP PEG SCH (10:38)
[2020-07-01] MEDS: SCOPOLAMINE HYDROBROMIDE 1.5 MG PATCH.TD72 TD SCH (10:38)
[2020-07-01] MEDS: NORMAL SALINE 10 ML SDV (SCHEDULED) IV SCH ×2 (10:39→21:10)
--- NOTE | 2020-07-01 11:25 | PDOC PROGRESS REPORT ---
Subjective Date:: 07/01/20 Subjective:: The patient is still having discomfort however he still has a large amount of retained stool. He still reports nausea and vertigo-like symptoms when he lays flat. Reason For Visit: MUCOUS PLUGGING, ACUTE HYPOXIC RESPIRATORY FAILURE Physical Exam Vital Signs: Temp Pulse Resp BP Pulse Ox 97.8 F 101 H 12 120/69 96 06/30/20 19:28 07/01/20 08:30 07/01/20 08:30 06/30/20 12:24 07/01/20 08:30 Intake & Output 06/30/20 07/01/20 07/02/20 06:59 06:59 06:59 Intake Total 981 906 Output Total 430 365 Balance 551 541 Weight 71.2 kg 71.7 kg General appearance: PRESENT: mild distress Head exam: PRESENT: atraumatic, normocephalic Respiratory exam: PRESENT: rhonchi - Bilateral, symmetrical, unlabored, other - SIMV 10 with 5 PEEP and FiO2 60%. Tidal volume 450. ABSENT: tachypnea, wheezes Cardiovascular exam: PRESENT: RRR, +S1, +S2 GI/Abdominal exam: PRESENT: hypoactive bowel sounds, soft, tenderness, other - Symptomatic Rectal exam: PRESENT: deferred Gentrourinary exam: PRESENT: indwelling catheter Neurological exam: PRESENT: alert, awake, oriented to person, oriented to place, oriented to situation. ABSENT: altered Psychiatric exam: PRESENT: flat affect. ABSENT: agitated, anxious Results Laboratory Results: 06/29/20 06:10 06/29/20 06:10 04/20/20 04/23/20 04/23/20 09:00 01:55 01:55 Creatine Kinase < 20 L CK-MB (CK-2) 2.20 Troponin I < 0.012 0.082 NT-Pro-B Natriuret Pep [id number] H 04/23/20 04/23/20 04/23/20 05:58 08:22 14:50 Creatine Kinase < 20 L < 20 L CK-MB (CK-2) 2.24 Troponin I 0.066 NT-Pro-B Natriuret Pep 04/23/20 06/09/20 14:50 05:20 Creatine Kinase CK-MB (CK-2) 2.09 Troponin I 0.057 NT-Pro-B Natriuret Pep [id number] H Impressions: PICC Line Insertion 05/07/20 00:00 IMPRESSION: SUCCESSFUL PLACEMENT OF A 5 FR DUAL LUMEN 47 CM PICC IN THE LEFT BRACHIOCEPHALIC VEIN. Modified Barium Swallow 06/03/20 00:00 IMPRESSION: LARYNGEAL PENETRATION AND ASPIRATION ABOVE. HE WAS PLEASE SEE SPEECH PATHOLOGIST REPORT FOR OTHER FINDINGS AND RECOMMENDATIONS. Thoracentesis Ultrasound 06/08/20 14:12 IMPRESSION: SUCCESSFUL THORACENTESIS USING ULTRASOUND GUIDANCE. Chest CT 06/15/20 00:00 IMPRESSION: Moderate bilateral pleural effusions with bilateral multifocal pneumonia. Mediastinal lymphadenopathy is probably reactive. Chest X-Ray 06/24/20 00:00 IMPRESSION: Small bilateral pleural effusions Stable diffuse bilateral airspace disease KUB X-Ray 07/01/20 07:00 IMPRESSION: Unchanged radiographic appearance of the abdomen with a considerable burden of fecal material in the distal colon and air-filled distend ed loops of bowel in the mid and upper abdomen. Assessment and Plan - Diagnosis (1) Bilateral pneumonia Qualifiers: Pneumonia type: aspiration pneumonia Lung location: lower lobe of lung Is this a current diagnosis for this admission?: Yes Plan: Repeat CXR, blood culture and labs ordered today. Hopes pt agrees. Previously refused. - CT chest 06/15 notable for moderate sized pleural effusion and bilateral pneumonia - Tracheal aspirate 06/15 positive for staph aureus, sternotrophomonas, Enterobacter cloacae similar to his previous sputum cultures - Ceftriaxone started 06/16 as per sensitivity. Pt previously refused f/u studies repeatedly. Patient made aware of need for studies to monitor disease progression/appropriate treatment. He expresses understanding and refuses further labs or imaging at this time. 06/25/2020 Still with significant congestion and abnormal x-ray. It appears that he completed a course of ceftriaxone and recently had a course of Zyvox. He originally had an infection with COVID-19 and has had complications with dysphagia and aspiration during his hospitalization. He is still ventilator dependent. We will continue to monitor closely. 06/27/2020 Good secretions with ET tube suction. Lungs actually starting to sound better. 06/28/2020 Antibiotic therapy completed. The patient cannot have anything by mouth as he has high risk of aspiration. 07/01/2020 Discolored mucus from around the trach. The patient likely is colonized at this point. No sputum cultures unless there is a marked change in his condition. (2) Urinary tract infection Qualifiers: Urinary tract infection type: catheter-associated UTI Is this a current diagnosis for this admission?: Yes Plan: Chronic Varner catheter most recently changed 06/14/20 - UC 06/14 + Enterobacter cloacae. Sensitive to ceftriaxone. - 06/13 WBC 23; has refused labs since. - Remains afebrile -Ceftriaxone started 06/16 - 06/23. 06/25/2020 Antibiotic therapy completed as above 06/28/2020 Infection resolved (3) Leukocytosis Qualifiers: Leukocytosis type: unspecified Qualified Code(s): D72.829 - Elevated white blood cell count, unspecified Is this a current diagnosis for this admission?: Yes Plan: WBC 13.5> 16.2-> 15.2-> 14.4-> 14.5> 23.3 -> 14.6 (06/22) - Persistently afebrile with VSS. - Refused to repeat chest x-ray to assess for possible pneumonia. - Blood culture 05/09/2020 without growth in 5 days; refuses repeat BC. - Likely secondary to UTI, as above. - Continue Ceftriaxone as above As above, patient refusing furthering imaging or labs, unfortunately unable to identify or locate origin of infection at this time. Patient understanding of th is and continues to refuse labs/imaging. 06/25/2020 The last blood count that the patient allowed to be drawn was on June 22. White blood cell count was 14.6 as noted above. He has not allowed any further blood work to be drawn. 06/28/2020 Check white blood cell count tomorrow 06/29/2020 White blood cell count is elevated today at 22.5. No obvious source of infection. Patient is afebrile. Will monitor closely. 06/30/2020-white blood cell count was elevated yesterday. Will recheck tomorr ow. (4) Acute on chronic respiratory failure with hypoxia and hypercapnia Is this a current diagnosis for this admission?: Yes Plan: Tenuously improved; now maintaining oxygen saturations of 98% on FiO2 80%. Continues to require vent PRVC setting. Has a trach and on mechanical ventilation; multiple failed weaning trials. Has required increased FiO2 to maintain SpO2 over the last 24-36 hours. CXR showed significantly increased right pleural effusion. Persistent patchy airspace opacities in both lungs; slight improvement in the left upper lobe. Repeat CXR w/ Interval increase in opacity overlying the right middle to lower l fransico zones; recommend CT chest follow-up. ABG resulted pH 7.31, pCO2 72.8, pO2 42.5, HCO3 35.8 was obtained shortly after desaturation event requiring short period of BVM while making adjustments to v entilator equipment. Repeat ABG on AVAPS/FiO2 100% pH 7.39, pCO2 64.6, pO2 62.3, HCO3 38.2 Placed back on Vent/FiO2 100% pH 7.36, pCO2 66.2, pO2 102.5, HCO3 38.8 Now s/p thoracentesis w/ ~800 ml removed. Pleural effusion w/ WBC 367, RBC 88. LDH 138, Albumin 0.7, Glucose 174. Cultures no growth at [address] chest pending; patient continues to refuse. Cautiously diuresed with IV furosemide; excellent urinary output. Unfortunately, refusing labs to assess K and renal function. Will resume his home dose furosemide 20 mg po daily as peripheral edema has resolved. Pleural effusion possibly related to CHF (echocardiogram (03/27/2020) shows LVEF 35 to 40%) vs infectious process (HAP/Aspiration PNA). WBC w/ gradual downward trend. Remains afebrile. Will hold on abx for now. Improved; maintaining oxygen saturations of 98% on FiO2 75%. - Continues to require vent PRVC setting. - Has a trach and on mechanical ventilation; multiple failed weaning trials. - CXR 06/08 Interval increase in opacity overlying the right middle to lower lung zones - Now s/p thoracentesis 06/08 with ~800 ml removed. - Pleural effusion w/ WBC 367, RBC 88. - LDH 138, Albumin 0.7, Glucose 174. - Cultures no growth. - Repeat CT 06/15 chest moderate bilateral pleural effusion and multifocal pneumonia (Ceftriaxone as above) - Continue with ventilator 06/25/2020 Continue ventilator support. Chest x-ray yesterday still shows bilateral infiltrative process. 06/27/2020 Continue tracheostomy care and suction 06/28/2020 Currently ventilator dependent 06/29/2020 Needs transfer to long-term acute care hospital that specializes in long-term vent weaning. 06/30/2020-we will work on ventilator weaning trials. 07/01/2020-unable to make any progress with ventilator weaning today. Continue to try and wean as tolerated. (5) Chronic pain Qualifiers: Chronic pain type: other chronic pain Qualified Code(s): G89.29 - Other chronic pain Is this a current diagnosis for this admission?: Yes Plan: Continued difficulty with managing patient's opiate dependence, chronic pain, desire for IV route, and hypoxia. - Previous provider notes reviewed - Morphine 10 mg via PEG q4h prn as per pain management recommendations. - This was adjusted to Morphine 7.5mg q3hrs with improvement in pt treatment toward nursing. - Pain management with recommendations to not renegotiate pain medications with the patient to maintain on this current 24-hour morphine dose. Pain medications to be held if patient is not receiving tube feeds due to risk. Pain medications may be administered if pt receiving tube feeds No changes in the current treatment plan 06/27/2020 Despite fentanyl patch the patient still wants more pain medications. We will continue the patch and go back to pain medication through the PEG tube. 06/28/2020 Initiated fentanyl patch. 06/29/2020 Fentanyl patch seems to be working. Patient's request for breakthrough medication could be more related to dependence than actual pain. 06/30/2020-continue fentanyl patch. Begin decreasing breakthrough pain medications. 07/01/2020-we will decrease breakthrough pain meds as this is only worsening the constipation. (6) Anxiety about health Is this a current diagnosis for this admission?: Yes Plan: As per previous providers on case and nursing patient with frequent anxiety attacks regarding his current state of health. - Continue buspar 10 BID - Utilize vistaril 25m q8prn during acute bouts. - Advised against benzo therapy. 06/25/2020 We will revisit the topic of depression and possible use of antidepressant medication 06/29/2020 The patient admitted that he is quite anxious and likely depressed and o verwhelmed. Will initiate therapy. With his current GI status a rapid oral dissolving formulation would be best. (7) Critical illness myopathy Is this a current diagnosis for this admission?: Yes Plan: With history of ICU and prolonged hospital stay - Given 3+ month hx hpspital admission would require extensive rehab - PT/OT/ST consulted - Pt continues to refuse rehab 06/25/2020 as above 06/28/2020-physical therapy did see the patient again. They feel that with a Jesse lift they can accomplish safe transition from bed to chair. At this point the patient would not be able to adequately self propel especially since he cannot detach himself from the ventilator. 06/29/2020-no therapy today. Likely training for staff with Jesse lift next week. 07/01/2020-patient continues to lose muscle mass. Difficulties with tube feeds due to constipation with nausea and vomiting. Patient has refused certain treatment options which makes it very difficult. (8) Dysphagia Qualifiers: Dysphagia type: oropharyngeal phase Qualified Code(s): R13.12 - Dysphagia, oropharyngeal phase Is this a current diagnosis for this admission?: Yes Plan: Now with PEG - Most recent swallow eval 06/03/20, failed. - currently receiving feeding via PEG with free water flushes. - Na stable as per previous labs. - Unable to monitor due to lab refusal. Patient receiving tube feeds as of today. Previously refused tube feeds due to diarrhea. Given Imodium prior to tube feeds with hopes this will prevent diarrhea. 06/25/2020 Nursing reports that the patient has declined tube feeds at this time. 06/28/2020 Continue n.p.o. status 07/01/2020-NPO. Patient does have PEG tube for access. (9) Bacteremia due to Enterococcus Is this a current diagnosis for this admission?: Yes Plan: Resolved - 05/07 + BC enterococcus - 05/09 BC without growth > 5 days - Completed Abx course - TTE as recommended by ID pending, pt has refused. No further intervention at this time (10) MSSA bacteremia Is this a current diagnosis for this admission?: Yes Plan: Resolved, completed abx treatment - BC 05/07 + MSSA - BC 05/09 without growth > 5 days - Patient refusing repeat blood culture. - Patient refusing echocardiogram as recommended by ID. 06/25/2020-as above (11) Hyperglycemia due to type 2 diabetes mellitus Qualifiers: Diabetes mellitus residential insulin use: with terminal carman use Qualified Code (s): E11.65 - Type 2 diabetes mellitus with hyperglycemia; Z79.4 - senior care (current) use of insulin Is this a current diagnosis for this admission?: Yes Plan: Patient without hypoglycemia today on accucheck, likely because patient refusing tube feeds. - Tx'd with dextrose - Pt educated on the need of tube feeds and risk associated with hypoglycemic episodes. - Patient does not acknowledge information provided. - Hypoglycemic protocol in place 06/25/2020 Patient is allowing Accu-Cheks. Last Accu-Cheks were within the normal range for the most part. Need to monitor for hypoglycemia with the patient refusing tube feeds. [id number] have excellent control. We will try and obtain serum chemistries tomorrow 06/29/2020-no change at this time (12) Acute kidney injury superimposed on chronic kidney disease Is this a current diagnosis for this admission?: Yes Plan: Resolved. - BUN/Creatinine 23/0.90 today 06/25/2020 Per last blood work GFR remains greater than 60 06/28/2020-I have ordered blood work for tomorrow. Hopefully the patient will allow phlebotomy to draw his blood. 06/29/2020-renal function now normal (13) Acute metabolic encephalopathy Is this a current diagnosis for this admission?: Yes Plan: Resolved. Primarily the result of infection but multiple other comorbidities likely contributing. Currently resolved. 06/29/2020 Encephalopathy is resolved. Possible depression with occasional agitation. (14) Debility Is this a current diagnosis for this admission?: Yes Plan: PT/OT/ST consulted though repeatedly refusing - Needs LTAC placement (15) Dependent on ventilator Is this a current diagnosis for this admission?: Yes Plan: O2 saturation 100% with FiO2 75. -Slowly wean this tolerated. -Rose Mary will faily secondary to bilateral pleural portion of multifocal pneumonia. - Discharge planning sending out referrals to [id number] facilities to take him; denies by all instate facilities 06/25/2020 Would benefit from placement at a long-term acute care hospital for long-term ventilator weaning 06/30/2020-FiO2 is up to 60%. Tidal volumes between 450 and 500 mL. (16) Nausea and vomiting Qualifiers: Vomiting type: unspecified Vomiting Intractability: non-intractable Qualified Code(s): R11.2 - Nausea with vomiting, unspecified Is this a current diagnosis for this admission?: Yes Plan: No NV today. Though comes in wave. Shelby BORRERON. 06/25/2020-stable/no changes 06/27/2020-after further discussion we will consider pancreatic enzyme r eplacement and trial dose of tube feeds. 06/28/2020-the nurse reports that the patient is still having bilious vomiting. He does have a PEG tube in place. I will institute a trial of intermittent low wall suction to decompress the belly. 06/29/2020-abdominal film revealed retained feces in the distal colon. I explained to the patient that this is part of the problem. His bowel gets backed up and filled with gas. The gastric secretions and likely secretions from the proximal duodenum can build up in the stomach causing nausea and vomiting. He has refused the suction through the PEG tube. As I explained the pathology he understands the need for suctioning. We will try and utilize sucti on overnight and then intermittently during the day. We will also change from Zofran to Phenergan. 07/01/2020-repeat film still shows large amount of retained feces in the distal colon. We will continue to try and apply suction to the PEG tube if possible. (17) Malnutrition Qualifiers: Malnutrition type: protein-calorie malnutrition Protein-calorie malnutrition severity: severe Qualified Code(s): E43 - Unspecified severe protein-calorie malnutrition Is this a current diagnosis for this admission?: Yes Plan: Improving Now on Tube Feeds RD following. 06/25/2020 For the most part has been refusing tube feeds. Unable to correct malnutrition if the patient does not allow tube feeds to infuse 06/27/2020 Discussed with the dietitian. Will trial probiotics and pancreatic enzymes with trial dose of tube feed. 06/28/2020-with nausea and vomiting there is no point in trialing pancreatic enzyme with tube feeds. Once abdomen settles then will reconsider. 06/29/2020-once GI issues resolve then initiate trial of tube feeds preceded by pancreatic enzymes 06/30/2020-we will check another prealbumin tomorrow. (18) Hypotension Qualifiers: Hypotension type: unspecified hypotension type Qualified Code(s): I95.9 - Hypotension, unspecified Is this a current diagnosis for this admission?: Yes Plan: Present on admission. Resolved (19) Candiduria Is this a current diagnosis for this admission?: Yes Plan: Resolved. (20) Vertigo Is this a current diagnosis for this admission?: Yes Plan: 06/29/2020 Trial of Phenergan on top of his scopolamine patch. We do not carry a rapidly dissolving meclizine formulation. Once his nausea and vomiting subside then we can use oral meclizine. 06/30/2020-no complaints of vertigo today 07/01/2020-still complaining of vertigo. He has experienced decreased fluid intake. He is already on scopolamine. I will increase IV fluids to see if this helps. (21) Retained feces Qualifiers: Constipation type: drug induced constipation Qualified Code(s): K59.03 - Drug induced constipation Is this a current diagnosis for this admission?: Yes Plan: 06/30/2020-with his chronic narcotic use the patient exhibits retained fecalith in the distal colon. Despite watery bowel movements we still need to utilize bowel preps to clean the colon. If we could decompress his bowels then we could initiate therapy with lactulose. We will continue to monitor closely. Repeat KUB tomorrow. 07/01/2020-we will initiate more aggressive therapy including enemas twice daily and lactulose through the PEG tube. - Plan Summary Summary: Patient with history refusing medical studies and treatment. Continues to refuse treatment and evaluation. Difficult to truly care for and manage patient due to his non-compliance and refusal of care. - Time Time Spent with patient: Less than 15 minutes Medications reviewed and adjusted accordingly: Yes Anticipated Discharge Disposition: [facility] Anticipated Discharge Timeframe: when bed available
[2020-07-01] MEDS: DEXTROSE 5%-1/2 NORMAL SALINE 1,000 ML IV PRN (12:47)
[2020-07-01] MEDS: LACTULOSE SYRUP 20 GM/30 ML UDCUP PR ONE ×2 (14:00→14:36)
[2020-07-01] MEDS: LACTULOSE SYRUP 20 GM/30 ML UDCUP PEG SCH ×2 (14:38→21:10)
[2020-07-01] MEDS: DEXTROSE 5%-NORMAL SALINE 1,000 ML IV PRN (17:17)
[2020-07-02] MEDS: DEXTROSE 5%-NORMAL SALINE 1,000 ML IV PRN ×4 (00:12→21:31)
[2020-07-02] MEDS: DIPHENHYDRAMINE HCL 50 MG/ML VIAL IV PRN ×2 (02:02→18:44)
[2020-07-02] MEDS: MORPHINE SULFATE 10 MG/ML INJ IV PRN ×4 (02:02→21:30)
[2020-07-02] MEDS: PROMETHAZINE HCL INJ 25 MG/1 ML VIAL IV PRN ×2 (02:02→20:15)
[2020-07-02] MEDS: INSULIN REG, HUMAN 100 UNIT/ML 3 ML VIAL (PYX) SUBCUT SCH ×3 (06:02→17:06)
[2020-07-02] MEDS: LACTULOSE SYRUP 20 GM/30 ML UDCUP PEG SCH ×3 (06:09→21:30)
[2020-07-02] MEDS: IPRATROPIUM/ALBUTEROL 0.5-2.5 MG/3 ML AMPUL NEB PRN ×3 (08:47→20:40)
[2020-07-02] MEDS: ACETYLCYSTEINE 20% SOLN 800 MG/4 ML VIAL.NEB NEB SCH ×2 (08:47→20:40)
[2020-07-02] MEDS: FUROSEMIDE ORAL SOLN 40 MG/5 ML UDCUP PEG SCH (09:26)
[2020-07-02] MEDS: BUSPIRONE HCL 10 MG TABLET PEG SCH ×2 (09:27→17:06)
[2020-07-02] MEDS: FENTANYL 25 MCG/HR PATCH.TD72 TD SCH (09:27)
[2020-07-02] MEDS: AMINO AC/PROTEIN HYDR/WHEY PRO 11 GM/45 ML PKT PEG SCH ×2 (09:27→17:06)
[2020-07-02] MEDS: HYDROXYZINE HCL INJ 50 MG/1 ML VIAL IM PRN (09:29)
[2020-07-02] MEDS: NORMAL SALINE 10 ML SDV (SCHEDULED) IV SCH ×2 (09:32→21:30)
[2020-07-02] MEDS: NA PHOS,M-B/NA PHOS,DI-BA (ADULT) 133 ML ENEMA PR SCH (09:32)
--- NOTE | 2020-07-02 17:29 | PDOC PROGRESS REPORT ---
Subjective Date:: 07/02/20 Subjective:: Patient refused laxatives and enema yesterday. He states he had a bowel movemen t but this was not noted by nurse. Reason For Visit: MUCOUS PLUGGING, ACUTE HYPOXIC RESPIRATORY FAILURE Physical Exam Vital Signs: Temp Pulse Resp BP Pulse Ox 98.2 F 98 20 124/71 99 07/02/20 15:55 07/02/20 15:55 07/02/20 15:55 07/02/20 15:55 07/02/20 15:55 Intake & Output 07/01/20 07/02/20 07/03/20 06:59 06:59 06:59 Intake Total 906 3745 1000 Output Total 365 500 500 Balance 541 3245 500 Weight 71.7 kg 68.7 kg General appearance: PRESENT: no acute distress Neck exam: ABSENT: JVD Respiratory exam: PRESENT: rhonchi, symmetrical, unlabored. ABSENT: tachypnea, wheezes Cardiovascular exam: PRESENT: RRR, +S1, +S2. ABSENT: tachycardia GI/Abdominal exam: PRESENT: soft. ABSENT: tenderness Neurological exam: PRESENT: alert, awake Results Laboratory Results: 06/29/20 06:10 06/29/20 06:10 04/20/20 04/23/20 04/23/20 09:00 01:55 01:55 Creatine Kinase < 20 L CK-MB (CK-2) 2.20 Troponin I < 0.012 0.082 NT-Pro-B Natriuret Pep [id number] H 04/23/20 04/23/20 04/23/20 05:58 08:22 14:50 Creatine Kinase < 20 L < 20 L CK-MB (CK-2) 2.24 Troponin I 0.066 NT-Pro-B Natriuret Pep 04/23/20 06/09/20 14:50 05:20 Creatine Kinase CK-MB (CK-2) 2.09 Troponin I 0.057 NT-Pro-B Natriuret Pep [id number] H Impressions: PICC Line Insertion 05/07/20 00:00 IMPRESSION: SUCCESSFUL PLACEMENT OF A 5 FR DUAL LUMEN 47 CM PICC IN THE LEFT BRACHIOCEPHALIC VEIN. Modified Barium Swallow 06/03/20 00:00 IMPRESSION: LARYNGEAL PENETRATION AND ASPIRATION ABOVE. HE WAS PLEASE SEE SPEECH PATHOLOGIST REPORT FOR OTHER FINDINGS AND RECOMMENDATIONS. Thoracentesis Ultrasound 06/08/20 14:12 IMPRESSION: SUCCESSFUL THORACENTESIS USING ULTRASOUND GUIDANCE. Chest CT 06/15/20 00:00 IMPRESSION: Moderate bilateral pleural effusions with bilateral multifocal pneumonia. Mediastinal lymphadenopathy is probably reactive. Chest X-Ray 06/24/20 00:00 IMPRESSION: Small bilateral pleural effusions Stable diffuse bilateral airspace disease KUB X-Ray 07/01/20 07:00 IMPRESSION: Unchanged radiographic appearance of the abdomen with a considerable burden of fecal material in the distal colon and air-filled distended loops of bowel in the mid and upper abdomen. Assessment and Plan - Diagnosis (1) Dependent on ventilator Is this a current diagnosis for this admission?: Yes Plan: Remains on the mechanical ventilator 450L/65%/5/10. Wean Fio2 at tolerated. 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 - Patient refusing echocardiogram as recommended by ID. (4) Malnutrition Qualifiers: Malnutrition type: protein-calorie malnutrition Protein-calorie malnutrition severity: severe Qualified Code(s): E43 - Unspecified severe protein-calorie malnutrition Is this a current diagnosis for this admission?: Yes (5) Retained feces Qualifiers: Constipation type: drug induced constipation Qualified Code(s): K59.03 - Drug induced constipation Is this a current diagnosis for this admission?: Yes Plan: Patient refused ordered enemas and lactulose. (6) Critical illness myopathy Is this a current diagnosis for this admission?: Yes (7) Dysphagia Qualifiers: Dysphagia type: oropharyngeal phase Qualified Code(s): R13.12 - Dysphagia, oropharyngeal phase Is this a current diagnosis for this admission?: Yes Plan: We will resume his tube feeds whenever he is agreeable. For the moment he has been declining. Patient does have PEG tube for access. - Plan Summary Summary: Patient with history refusing medical studies and treatment. Continues to refuse treatment and evaluation. Difficult to truly care for and manage patient due to his non-compliance and refusal of care. - Time Time Spent with patient: Less than 15 minutes Anticipated Discharge Disposition: unknown Anticipated Discharge Timeframe: unknown
[2020-07-03] MEDS: INSULIN REG, HUMAN 100 UNIT/ML 3 ML VIAL (PYX) SUBCUT SCH ×4 (00:48→17:47)
[2020-07-03] MEDS: MORPHINE SULFATE 10 MG/ML INJ IV PRN ×3 (03:07→13:51)
[2020-07-03] MEDS: PROMETHAZINE HCL INJ 25 MG/1 ML VIAL IV PRN ×3 (03:07→16:40)
[2020-07-03] MEDS: DIPHENHYDRAMINE HCL 50 MG/ML VIAL IV PRN ×3 (03:07→21:54)
[2020-07-03] MEDS: DEXTROSE 5%-NORMAL SALINE 1,000 ML IV PRN ×2 (04:22→13:17)
[2020-07-03] MEDS: LACTULOSE SYRUP 20 GM/30 ML UDCUP PEG SCH ×3 (05:24→23:07)
[2020-07-03] MEDS: ACETYLCYSTEINE 20% SOLN 800 MG/4 ML VIAL.NEB NEB SCH ×2 (08:32→20:41)
[2020-07-03] MEDS: IPRATROPIUM/ALBUTEROL 0.5-2.5 MG/3 ML AMPUL NEB PRN ×2 (08:32→20:41)
[2020-07-03] MEDS: HYDROXYZINE HCL INJ 50 MG/1 ML VIAL IM PRN ×2 (09:02→22:15)
[2020-07-03] MEDS: BUSPIRONE HCL 10 MG TABLET PEG SCH ×2 (10:17→17:47)
[2020-07-03] MEDS: NA PHOS,M-B/NA PHOS,DI-BA (ADULT) 133 ML ENEMA PR SCH (10:18)
[2020-07-03] MEDS: FUROSEMIDE ORAL SOLN 40 MG/5 ML UDCUP PEG SCH (10:26)
[2020-07-03] MEDS: AMINO AC/PROTEIN HYDR/WHEY PRO 11 GM/45 ML PKT PEG SCH ×2 (10:36→17:47)
[2020-07-03] MEDS: NORMAL SALINE 10 ML SDV (SCHEDULED) IV SCH ×2 (10:36→23:07)
--- NOTE | 2020-07-03 17:10 | PDOC PROGRESS REPORT ---
Subjective Date:: 07/03/20 Subjective:: This morning, I have tried to have several conversations with patient regarding his care but he refuses twice having refuses to engage in conversation with me. I gave him his pad/writing board and asked him to write why he is reluctant to receiving care but he refused to do so. I had prolonged issue of hospice with him since he is refusing care and refusing tube feeds but he refused to give me an answer on this. He is also refusing all medications including enema and laxatives given his fecal compaction. Later in the afternoon, he had an episode of vomiting. Try to get a KUB to assess but he refused this as well. Also discussed blood work with him earlier today which he refused. Reason For Visit: MUCOUS PLUGGING, ACUTE HYPOXIC RESPIRATORY FAILURE Physical Exam Vital Signs: Temp Pulse Resp BP Pulse Ox 97.9 F 98 17 130/68 H 100 07/03/20 07:47 07/03/20 14:00 07/03/20 08:32 07/02/20 23:53 07/03/20 14:08 Intake & Output 07/02/20 07/03/20 07/04/20 06:59 06:59 06:59 Intake Total 3745 3000 1000 Output Total 500 1900 Balance 3245 1100 1000 Weight 68.7 kg 75.4 kg General appearance: PRESENT: no acute distress. ABSENT: cooperative Respiratory exam: PRESENT: unlabored. ABSENT: accessory muscle use, retraction Neurological exam: PRESENT: alert, awake Additional comments: Patient did not allow me to examine him today. Results Laboratory Results: 06/29/20 06:10 06/29/20 06:10 04/20/20 04/23/20 04/23/20 09:00 01:55 01:55 Creatine Kinase < 20 L CK-MB (CK-2) 2.20 Troponin I < 0.012 0.082 NT-Pro-B Natriuret Pep [id number] H 04/23/20 04/23/20 04/23/20 05:58 08:22 14:50 Creatine Kinase < 20 L < 20 L CK-MB (CK-2) 2.24 Troponin I 0.066 NT-Pro-B Natriuret Pep 04/23/20 06/09/20 14:50 05:20 Creatine Kinase CK-MB (CK-2) 2.09 Troponin I 0.057 NT-Pro-B Natriuret Pep [id number] H Impressions: PICC Line Insertion 05/07/20 00:00 IMPRESSION: SUCCESSFUL PLACEMENT OF A 5 FR DUAL LUMEN 47 CM PICC IN THE LEFT BRACHIOCEPHALIC VEIN. Modified Barium Swallow 06/03/20 00:00 IMPRESSION: LARYNGEAL PENETRATION AND ASPIRATION ABOVE. HE WAS PLEASE SEE SPEECH PATHOLOGIST REPORT FOR OTHER FINDINGS AND RECOMMENDATIONS. Thoracentesis Ultrasound 06/08/20 14:12 IMPRESSION: SUCCESSFUL THORACENTESIS USING ULTRASOUND GUIDANCE. Chest CT 06/15/20 00:00 IMPRESSION: Moderate bilateral pleural effusions with bilateral multifocal pneumonia. Mediastinal lymphadenopathy is probably reactive. Chest X-Ray 06/24/20 00:00 IMPRESSION: Small bilateral pleural effusions Stable diffuse bilateral airspace disease KUB X-Ray 07/01/20 07:00 IMPRESSION: Unchanged radiographic appearance of the abdomen with a considerable burden of fecal material in the distal colon and air-filled distended loops of bowel in the mid and upper abdomen. Assessment and Plan - Diagnosis (1) Dependent on ventilator Is this a current diagnosis for this admission?: Yes Plan: Remains on the mechanical ventilator FiO2 weaned down to 45%. We will continue to wean as tolerated. (2) Hyperglycemia due to type 2 diabetes mellitus Qualifiers: Diabetes mellitus mcfp insulin use: with mcfp use Qualified C ode(s): E11.65 - Type 2 diabetes mellitus with hyperglycemia; Z79.4 - [facility] (current) use of insulin Is this a current diagnosis for this admission?: Yes (3) Retained feces Qualifiers: Constipation type: drug induced constipation Qualified Code(s): K59.03 - Drug induced constipation Is this a current diagnosis for this admission?: Yes Plan: Patient refused ordered enemas and lactulose and refused KUBs. He has not been vomiting likely secondary to fecal impaction complications but still refuses for us to get a KUB or take therapy. Antiemetics (4) MSSA bacteremia Is this a current diagnosis for this admission?: Yes Plan: Per prior provider: Resolved, completed abx treatment - BC 05/07 + MSSA - BC 05/09 without growth > 5 days - Patient refusing repeat blood culture. - Patient refusing echocardiogram as recommended by ID. (5) Malnutrition Qualifiers: Malnutrition type: protein-calorie malnutrition Protein-calorie malnutrition severity: severe Qualified Code(s): E43 - Unspecified severe protein-calorie malnutrition Is this a current diagnosis for this admission?: Yes Plan: Continues to refuse tube feeds. On D5 saline. (6) Critical illness myopathy Is this a current diagnosis for this admission?: Yes (7) Dysphagia Qualifiers: Dysphagia type: oropharyngeal phase Qualified Code(s): R13.12 - Dysphagia, oropharyngeal phase Is this a current diagnosis for this admission?: Yes - Plan Summary Summary: Patient with history refusing medical studies and treatment. He continues to refuse treatment and evaluation. Difficult to truly care for and manage patient due to his non-compliance and refusal of care. - Time Time Spent with patient: 15-24 minutes Anticipated Discharge Disposition: unknown Anticipated Discharge Timeframe: when bed available
[2020-07-04] MEDS: INSULIN REG, HUMAN 100 UNIT/ML 3 ML VIAL (PYX) SUBCUT SCH ×4 (01:25→17:00)
[2020-07-04] MEDS: DEXTROSE 5%-NORMAL SALINE 1,000 ML IV PRN ×2 (01:29→15:16)
[2020-07-04] MEDS: PROMETHAZINE HCL INJ 25 MG/1 ML VIAL IV PRN ×2 (01:30→12:37)
[2020-07-04] MEDS: LACTULOSE SYRUP 20 GM/30 ML UDCUP PEG SCH ×3 (05:48→21:30)
[2020-07-04] MEDS: DEXTROSE 50%-WATER SYRINGE 12.5 GM/25 ML DOSE IV PRN (06:30)
[2020-07-04] MEDS: DIPHENHYDRAMINE HCL 50 MG/ML VIAL IV PRN ×2 (06:42→15:11)
[2020-07-04] MEDS: ACETYLCYSTEINE 20% SOLN 800 MG/4 ML VIAL.NEB NEB SCH ×2 (07:42→19:42)
[2020-07-04] MEDS: IPRATROPIUM/ALBUTEROL 0.5-2.5 MG/3 ML AMPUL NEB PRN ×2 (07:42→19:42)
[2020-07-04] MEDS: HYDROXYZINE HCL INJ 50 MG/1 ML VIAL IM PRN ×2 (08:02→16:50)
[2020-07-04] MEDS: SCOPOLAMINE HYDROBROMIDE 1.5 MG PATCH.TD72 TD SCH (10:07)
[2020-07-04] MEDS: NORMAL SALINE 10 ML SDV (SCHEDULED) IV SCH ×2 (10:07→21:31)
[2020-07-04] MEDS: NA PHOS,M-B/NA PHOS,DI-BA (ADULT) 133 ML ENEMA PR SCH (10:37)
[2020-07-04] MEDS: BUSPIRONE HCL 10 MG TABLET PEG SCH ×2 (10:37→17:00)
[2020-07-04] MEDS: FUROSEMIDE ORAL SOLN 40 MG/5 ML UDCUP PEG SCH (10:38)
[2020-07-04] MEDS: AMINO AC/PROTEIN HYDR/WHEY PRO 11 GM/45 ML PKT PEG SCH ×2 (10:38→17:00)
--- NOTE | 2020-07-04 15:46 | PDOC PROGRESS REPORT ---
Subjective Date:: 07/04/20 Subjective:: Patient continues to refuse medications and therapy. He refuses treatment for h is constipation. He also gets angry when talking to me and the only thing he writes down on his notepad he responds to all my questions he is " I need my pain med". Otherwise he does not respond to my other questions. He states his pain is in the abdomen and his neck. I did discuss with him about trying nonopioid alternatives as his opioid medication is contributing to his impaction which is likely contributing to his abdominal pain and vomiting. Reason For Visit: MUCOUS PLUGGING, ACUTE HYPOXIC RESPIRATORY FAILURE Physical Exam Vital Signs: Temp Pulse Resp BP Pulse Ox 97.9 F 111 H 21 H 130/68 H 94 07/04/20 10:00 07/04/20 07:42 07/04/20 07:42 07/02/20 23:53 07/04/20 12:00 Intake & Output 07/03/20 07/04/20 07/05/20 06:59 06:59 06:59 Intake Total 3000 2000 1000 Output Total 1900 1050 Balance 1105 591 4507 Weight 75.4 kg 75.9 kg General appearance: PRESENT: no acute distress. ABSENT: cooperative Neck exam: PRESENT: tracheostomy. ABSENT: JVD, tracheal deviation Respiratory exam: PRESENT: symmetrical, unlabored. ABSENT: accessory muscle use, retraction, tachypnea Cardiovascular exam: ABSENT: tachycardia GI/Abdominal exam: PRESENT: soft, tenderness. ABSENT: distended, firm, guarding Neurological exam: PRESENT: alert, awake Psychiatric exam: PRESENT: agitated. ABSENT: anxious Focused psych exam: ABSENT: pressured speech Skin exam: ABSENT: jaundice Results Laboratory Results: 06/29/20 06:10 06/29/20 06:10 04/20/20 04/23/20 04/23/20 09:00 01:55 01:55 Creatine Kinase < 20 L CK-MB (CK-2) 2.20 Troponin I < 0.012 0.082 NT-Pro-B Natriuret Pep [id number] H 04/23/20 04/23/20 04/23/20 05:58 08:22 14:50 Creatine Kinase < 20 L < 20 L CK-MB (CK-2) 2.24 Troponin I 0.066 NT-Pro-B Natriuret Pep 04/23/20 06/09/20 14:50 05:20 Creatine Kinase CK-MB (CK-2) 2.09 Troponin I 0.057 NT-Pro-B Natriuret Pep [id number] H Impressions: PICC Line Insertion 05/07/20 00:00 IMPRESSION: SUCCESSFUL PLACEMENT OF A 5 FR DUAL LUMEN 47 CM PICC IN THE LEFT BRACHIOCEPHALIC VEIN. Modified Barium Swallow 06/03/20 00:00 IMPRESSION: LARYNGEAL PENETRATION AND ASPIRATION ABOVE. HE WAS PLEASE SEE SPEECH PATHOLOGIST REPORT FOR OTHER FINDINGS AND RECOMMENDATIONS. Thoracentesis Ultrasound 06/08/20 14:12 IMPRESSION: SUCCESSFUL THORACENTESIS USING ULTRASOUND GUIDANCE. Chest CT 06/15/20 00:00 IMPRESSION: Moderate bilateral pleural effusions with bilateral multifocal pneumonia. Mediastinal lymphadenopathy is probably reactive. Chest X-Ray 06/24/20 00:00 IMPRESSION: Small bilateral pleural effusions Stable diffuse bilateral airspace disease KUB X-Ray 07/01/20 07:00 IMPRESSION: Unchanged radiographic appearance of the abdomen with a considerable burden of fecal material in the distal colon and air-filled distended loops of bowel in the mid and upper abdomen. Assessment and Plan - Diagnosis (1) Dependent on ventilator Is this a current diagnosis for this admission?: Yes Plan: Remains on the mechanical ventilator FiO2 45%. We will continue to wean as tolerated. (2) Hyperglycemia due to type 2 diabetes mellitus Qualifiers: Diabetes mellitus shingle cutter insulin use: with correction use Qualified Code(s): E11.65 - Type 2 diabetes mellitus with hyperglycemia; Z79.4 - [facility] (current) use of insulin Is this a current diagnosis for this admission?: Yes Plan: Refusing Accu-Cheks. (3) Retained feces Qualifiers: Constipation type: drug induced constipation Qualified Code(s): K59.03 - Drug induced constipation Is this a current diagnosis for this admission?: Yes Plan: Continues to refuse therapy despite his nausea and vomiting. I will keep his morphine on hold. (4) MSSA bacteremia Is this a current diagnosis for this admission?: Yes Plan: Per prior provider: Resolved, completed abx treatment - BC 05/07 + MSSA - BC 05/09 without growth > 5 days - Patient refusing repeat blood culture. - Patient refusing echocardiogram as recommended by ID. (5) Malnutrition Qualifiers: Malnutrition type: protein-calorie malnutrition Protein-calorie malnutrition severity: severe Qualified Code(s): E43 - Unspecified severe protein-calorie malnutrition Is this a current diagnosis for this admission?: Yes Plan: Continues to refuse tube feeds. On D5 saline. (6) Critical illness myopathy Is this a current diagnosis for this admission?: Yes (7) Chronically on opiate therapy Is this a current diagnosis for this admission?: Yes (8) Dysphagia Qualifiers: Dysphagia type: oropharyngeal phase Qualified Code(s): R13.12 - Dysphagia, oropharyngeal phase Is this a current diagnosis for this admission?: Yes - Plan Summary Summary: Patient is essentially refusing vital medical care including work-ups, monitoring and therapies putting him at risk of serious complications. He has not consented to hospice. The only medical care he seems to want his narcotic for pain medication. Mental status is intact. At this point, plan is to discharge patient to an LTAC once available since he is refusing medical care. Unfortunately it seems getting placement for him is quite difficult. - Time Time Spent with patient: Less than 15 minutes Anticipated Discharge Disposition: [facility] Anticipated Discharge Timeframe: when bed available
[2020-07-05] MEDS: DEXTROSE 5%-NORMAL SALINE 1,000 ML IV PRN ×2 (00:04→09:47)
[2020-07-05] MEDS: INSULIN REG, HUMAN 100 UNIT/ML 3 ML VIAL (PYX) SUBCUT SCH ×5 (00:06→23:01)
[2020-07-05] MEDS: DIPHENHYDRAMINE HCL 50 MG/ML VIAL IV PRN ×3 (02:14→17:42)
[2020-07-05] MEDS: HYDROXYZINE HCL INJ 50 MG/1 ML VIAL IM PRN ×3 (02:14→17:42)
[2020-07-05] MEDS: PROMETHAZINE HCL INJ 25 MG/1 ML VIAL IV PRN ×3 (03:05→17:42)
[2020-07-05] MEDS: LACTULOSE SYRUP 20 GM/30 ML UDCUP PEG SCH ×3 (05:05→21:11)
[2020-07-05] MEDS: ACETYLCYSTEINE 20% SOLN 800 MG/4 ML VIAL.NEB NEB SCH ×2 (07:45→21:07)
[2020-07-05] MEDS: IPRATROPIUM/ALBUTEROL 0.5-2.5 MG/3 ML AMPUL NEB PRN (07:45)
[2020-07-05] MEDS: NA PHOS,M-B/NA PHOS,DI-BA (ADULT) 133 ML ENEMA PR SCH (09:06)
[2020-07-05] MEDS: BUSPIRONE HCL 10 MG TABLET PEG SCH ×2 (09:06→17:32)
[2020-07-05] MEDS: FUROSEMIDE ORAL SOLN 40 MG/5 ML UDCUP PEG SCH (09:06)
[2020-07-05] MEDS: NORMAL SALINE 10 ML SDV (SCHEDULED) IV SCH ×2 (09:07→21:11)
[2020-07-05] MEDS: AMINO AC/PROTEIN HYDR/WHEY PRO 11 GM/45 ML PKT PEG SCH ×2 (09:07→17:32)
--- NOTE | 2020-07-05 18:02 | PDOC PROGRESS REPORT ---
Subjective Date:: 07/05/20 Subjective:: Patient continues to refuse medications, refused blood draws, and refused to hav e any intelligible conversations. The only thing he continues to insist on is reinstating his IV morphine. He continues to tell me that he has had bowel movements but I have confirmed with the nurses that he has not had any bowel movement. I have tried to explain to him that I need to treat his constipation as he complains of abdominal pain but requests morphine. I have been informed to also that patient was noted to have Gummie candy from his trach which is likely consumed by mouth. He continues to refuse tube feeds. I have instructed for the guest who brought him this to be cautioned because if this repeats, she would be restricted from visiting. Reason For Visit: MUCOUS PLUGGING, ACUTE HYPOXIC RESPIRATORY FAILURE Physical Exam Vital Signs: Temp Pulse Resp BP Pulse Ox 97.9 F 115 H 22 H 143/83 H 100 07/05/20 07:48 07/05/20 14:00 07/05/20 07:23 07/05/20 07:23 07/05/20 16:50 Intake & Output 07/04/20 07/05/20 07/06/20 06:59 06:59 06:59 Intake Total 1999 1880 972 Output Total 1050 675 Balance 950 1205 972 Weight 75.9 kg 76.6 kg General appearance: PRESENT: no acute distress. ABSENT: cooperative Head exam: PRESENT: normocephalic Eye exam: PRESENT: EOMI Neck exam: PRESENT: tracheostomy Respiratory exam: PRESENT: symmetrical, unlabored. ABSENT: accessory muscle use, tachypnea Cardiovascular exam: ABSENT: tachycardia GI/Abdominal exam: PRESENT: soft. ABSENT: distended, firm, guarding, rebound, rigid, tenderness Extremities exam: ABSENT: pedal edema Neurological exam: PRESENT: alert, awake Psychiatric exam: PRESENT: agitated. ABSENT: anxious Focused psych exam: ABSENT: pressured speech Skin exam: ABSENT: jaundice Results Laboratory Results: 06/29/20 06:10 06/29/20 06:10 04/20/20 04/23/20 04/23/20 09:00 01:55 01:55 Creatine Kinase < 20 L CK-MB (CK-2) 2.20 Troponin I < 0.012 0.082 NT-Pro-B Natriuret Pep [id number] H 04/23/20 04/23/20 04/23/20 05:58 08:22 14:50 Creatine Kinase < 20 L < 20 L CK-MB (CK-2) 2.24 Troponin I 0.066 NT-Pro-B Natriuret Pep 04/23/20 06/09/20 14:50 05:20 Creatine Kinase CK-MB (CK-2) 2.09 Troponin I 0.057 NT-Pro-B Natriuret Pep [id number] H Impressions: PICC Line Insertion 05/07/20 00:00 IMPRESSION: SUCCESSFUL PLACEMENT OF A 5 FR DUAL LUMEN 47 CM PICC IN THE LEFT B RACHIOCEPHALIC VEIN. Modified Barium Swallow 06/03/20 00:00 IMPRESSION: LARYNGEAL PENETRATION AND ASPIRATION ABOVE. HE WAS PLEASE SEE SPEECH PATHOLOGIST REPORT FOR OTHER FINDINGS AND RECOMMENDATIONS. Thoracentesis Ultrasound 06/08/20 14:12 IMPRESSION: SUCCESSFUL THORACENTESIS USING ULTRASOUND GUIDANCE. Chest CT 06/15/20 00:00 IMPRESSION: Moderate bilateral pleural effusions with bilateral multifocal pneumonia. Mediastinal lymphadenopathy is probably reactive. Chest X-Ray 06/24/20 00:00 IMPRESSION: Small bilateral pleural effusions Stable diffuse bilateral airspace disease KUB X-Ray 07/01/20 07:00 IMPRESSION: Unchanged radiographic appearance of the abdomen with a considerable burden of fecal material in the distal colon and air-filled distended loops of bowel in the mid and upper abdomen. Assessment and Plan - Diagnosis (1) Dependent on ventilator Is this a current diagnosis for this admission?: Yes Plan: Remains on the mechanical ventilator. Appears comfortable. We will continue to wean FIO2 as tolerated. (2) Hyperglycemia due to type 2 diabetes mellitus Qualifiers: Diabetes mellitus rat exterminator insulin use: with rat exterminator use Qualified Code(s): E11.65 - Type 2 diabetes mellitus with hyperglycemia; Z79.4 - [facility] (current) use of insulin Is this a current diagnosis for this admission?: Yes Plan: mild hyperglcemia today. Mostly refusing accuchecks and therapy (3) Retained feces Qualifiers: Constipation type: drug induced constipation Qualified Code(s): K59.03 - Drug induced constipation Is this a current diagnosis for this admission?: Yes Plan: Continues to refuse therapy despite his nausea and vomiting. I will keep his morphine on hold. (4) MSSA bacteremia Is this a current diagnosis for this admission?: Yes Plan: Per prior provider: Resolved, completed abx treatment - BC 05/07 + MSSA - BC 05/09 without growth > 5 days - Patient refusing repeat blood culture. - Patient refusing echocardiogram as recommended by ID. (5) Malnutrition Qualifiers: Malnutrition type: protein-calorie malnutrition Protein-calorie malnutrition severity: severe Qualified Code(s): E43 - Unspecified severe protein-calorie malnutrition Is this a current diagnosis for this admission?: Yes Plan: Continues to refuse tube feeds. On D5 saline. (6) Chronically on opiate therapy Is this a current diagnosis for this admission?: Yes Plan: He feels dependent on nacotics and demonstrating drug seeking behavior. Has pain in abdomen and site of trach. I have encouraged him to try other modalities for pain control including Tylenol and tramadol rather than continuing IV morphine. (7) Critical illness myopathy Is this a current diagnosis for this admission?: Yes (8) Dysphagia Qualifiers: Dysphagia type: oropharyngeal phase Qualified Code(s): R13.12 - Dysphagia, oropharyngeal phase Is this a current diagnosis for this admission?: Yes - Plan Summary Summary: Patient is essentially refusing vital medical care including work-ups, monitoring and therapies putting him at risk of serious complications. He has not consented to hospice. The only medical care he seems to want his narcotic for pain medication. Mental status is intact. At this point, plan is to discharge patient to an LTAC once available since he is refusing medical care. Unfortunately it seems getting placement for him is quite difficult. - Time Time Spent with patient: 15-24 minutes Anticipated Discharge Disposition: [facility] Anticipated Discharge Timeframe: when bed available
[2020-07-05] MEDS: TRAMADOL HCL 50 MG TABLET PEG PRN (22:52)
[2020-07-06] MEDS: IPRATROPIUM/ALBUTEROL 0.5-2.5 MG/3 ML AMPUL NEB PRN ×3 (00:15→20:51)
[2020-07-06] MEDS: HYDROXYZINE HCL INJ 50 MG/1 ML VIAL IM PRN ×3 (02:04→20:59)
[2020-07-06] MEDS: DIPHENHYDRAMINE HCL 50 MG/ML VIAL IV PRN ×3 (02:04→20:00)
[2020-07-06] MEDS: PROMETHAZINE HCL INJ 25 MG/1 ML VIAL IV PRN ×3 (02:10→16:30)
[2020-07-06] MEDS: INSULIN REG, HUMAN 100 UNIT/ML 3 ML VIAL (PYX) SUBCUT SCH ×3 (05:26→18:49)
[2020-07-06] MEDS: LACTULOSE SYRUP 20 GM/30 ML UDCUP PEG SCH ×2 (05:26→13:47)
[2020-07-06] MEDS: ACETYLCYSTEINE 20% SOLN 800 MG/4 ML VIAL.NEB NEB SCH ×2 (08:02→20:51)
[2020-07-06] MEDS: TRAMADOL HCL 50 MG TABLET PEG PRN ×2 (09:29→20:00)
[2020-07-06] MEDS: NA PHOS,M-B/NA PHOS,DI-BA (ADULT) 133 ML ENEMA PR SCH (10:08)
[2020-07-06] MEDS: BUSPIRONE HCL 10 MG TABLET PEG SCH ×2 (10:18→20:00)
[2020-07-06] MEDS: FUROSEMIDE ORAL SOLN 40 MG/5 ML UDCUP PEG SCH (10:18)
[2020-07-06] MEDS: NORMAL SALINE 10 ML SDV (SCHEDULED) IV SCH (10:19)
[2020-07-06] MEDS: AMINO AC/PROTEIN HYDR/WHEY PRO 11 GM/45 ML PKT PEG SCH ×2 (10:20→20:01)
[2020-07-06] MEDS: MAGNESIUM HYDROXIDE SUSP 30 ML UDCUP PEG PRN (10:38)
[2020-07-06] MEDS ORDERED: MORPHINE SULFATE 10 MG/ML INJ IV ONE ×2 (13:30→23:00)
[2020-07-06] MEDS: DEXTROSE 5%-NORMAL SALINE 1,000 ML IV PRN (16:25)
--- NOTE | 2020-07-06 16:52 | RADIOLOGY REPORT (SQ) ---
EXAM DESCRIPTION: KUB/ABDOMEN (SINGLE VIEW) IMAGES COMPLETED DATE/TIME: 07/06/2020 1:43 pm REASON FOR STUDY: constipation, abd pain J96.21 ACUTE AND CHRONIC RESPIRATORY FAILURE WITH HYPOXIA COMPARISON: 07/01/2020. NUMBER OF VIEWS: One view. TECHNIQUE: Supine radiographic image of the abdomen acquired. LIMITATIONS: None. FINDINGS: BOWEL GAS PATTERN: Normal bowel gas pattern. No dilated loops. Prominent stool in the rec ky. CALCIFICATIONS: No suspicious calcifications. SOFT TISSUES: No gross mass or suggestion of organomegaly. HARDWARE: Gastrostomy tube. BONES: No acute fracture. Degenerative changes in the spine and hips. OTHER: No other significant finding. IMPRESSION: PROMINENT STOOL IN THE RECTUM. NO RADIOGRAPHIC EVIDENCE FOR ACUTE ABDOMINAL DISEASE. TECHNICAL DOCUMENTATION: JOB ID: [id number] 2010 [employer]- All Rights Reserved Reading location - IP/workstation name: [email or web address]
--- NOTE | 2020-07-06 17:04 | PDOC PROGRESS REPORT ---
Subjective Date:: 07/06/20 Reason For Visit: MUCOUS PLUGGING, ACUTE HYPOXIC RESPIRATORY FAILURE Physical Exam Vital Signs: Temp Pulse Resp BP Pulse Ox 97.9 F 115 H 22 H 143/83 H 100 07/05/20 19:50 07/06/20 07:00 07/05/20 07:23 07/05/20 07:23 07/06/20 12:36 Intake & Output 07/05/20 07/06/20 07/07/20 06:59 06:59 06:59 Intake Total 1250 807 4030 Output Total 675 575 Balance 2867 188 6086 Weight 76.6 kg 76.3 kg 76.3 kg General appearance: PRESENT: no acute distress, cooperative Neck exam: PRESENT: tracheostomy. ABSENT: JVD Respiratory exam: PRESENT: rhonchi - Mild mild, symmetrical, unlabored. ABSENT: accessory muscle use, prolonged expiratory phas, retraction, tachypnea Cardiovascular exam: PRESENT: +S1, +S2, tachycardia. ABSENT: irregular rhythm GI/Abdominal exam: PRESENT: soft. ABSENT: rebound, rigid, tenderness Neurological exam: PRESENT: alert, awake Psychiatric exam: PRESENT: agitated. ABSENT: anxious Focused psych exam: ABSENT: pressured speech Skin exam: ABSENT: jaundice Results Laboratory Results: 06/29/20 06:10 06/29/20 06:10 04/20/20 04/23/20 04/23/20 09:00 01:55 01:55 Creatine Kinase < 20 L CK-MB (CK-2) 2.20 Troponin I < 0.012 0.082 NT-Pro-B Natriuret Pep [id number] H 04/23/20 04/23/20 04/23/20 05:58 08:22 14:50 Creatine Kinase < 20 L < 20 L CK-MB (CK-2) 2.24 Troponin I 0.066 NT-Pro-B Natriuret Pep 04/23/20 06/09/20 14:50 05:20 Creatine Kinase CK-MB (CK-2) 2.09 Troponin I 0.057 NT-Pro-B Natriuret Pep [id number] H Impressions: PICC Line Insertion 05/07/20 00:00 IMPRESSION: SUCCESSFUL PLACEMENT OF A 5 FR DUAL LUMEN 47 CM PICC IN THE LEFT BRACHIOCEPHALIC VEIN. Modified Barium Swallow 06/03/20 00:00 IMPRESSION: LARYNGEAL PENETRATION AND ASPIRATION ABOVE. HE WAS PLEASE SEE SPEECH PATHOLOGIST REPORT FOR OTHER FINDINGS AND RECOMMENDATIONS. Thoracentesis Ultrasound 06/08/20 14:12 IMPRESSION: SUCCESSFUL THORACENTESIS USING ULTRASOUND GUIDANCE. Chest CT 06/15/20 00:00 IMPRESSION: Moderate bilateral pleural effusions with bilateral multifocal pneumonia. Mediastinal lymphadenopathy is probably reactive. Chest X-Ray 06/24/20 00:00 IMPRESSION: Small bilateral pleural effusions Stable diffuse bilateral airspace disease KUB X-Ray 07/06/20 00:00 IMPRESSION: PROMINENT STOOL IN THE RECTUM. NO RADIOGRAPHIC EVIDENCE FOR ACUTE ABDOMINAL DISEASE. Assessment and Plan - Diagnosis (1) Dependent on ventilator Is this a current diagnosis for this admission?: Yes Plan: Remains on the mechanical ventilator. Appears comfortable. Oxygen saturation was 100% on FiO2 of 80% this morning. Have asked for his FiO2 to be weaned to 45% and if unable to, for me to be notified. (2) Hyperglycemia due to type 2 diabetes mellitus Qualifiers: Diabetes mellitus superintendent container terminal insulin use: with superintendent container terminal use Qualified Code(s): E11.65 - Type 2 diabetes mellitus with hyperglycemia; Z79.4 - [employer] container terminal (current) use of insulin Is this a current diagnosis for this admission?: Yes Plan: mild hyperglcemia today. Mostly refusing accuchecks and therapy (3) Retained feces Qualifiers: Constipation type: drug induced constipation Qualified Code(s): K59.03 - Drug induced constipation Is this a current diagnosis for this admission?: Yes Plan: KUB again today shows stool burden in the rectum. He continues to refuse lactulose. (4) Malnutrition Qualifiers: Malnutrition type: protein-calorie malnutrition Protein-calorie malnutrition severity: severe Qualified Code(s): E43 - Unspecified severe protein-calorie malnutrition Is this a current diagnosis for this admission?: Yes Plan: Had a long conversation with him about initiating tube feeds and he seemed agreeable so we will plan to be started at a slow rate and then titrate up to goal rate gently. (5) MSSA bacteremia Is this a current diagnosis for this admission?: Yes (6) Chronically on opiate therapy Is this a current diagnosis for this admission?: Yes Plan: He feels dependent on nacotics and demonstrating drug seeking behavior. Has pain in abdomen and site of trach. I have encouraged him to try other modalities for pain control including Tylenol and tramadol rather than only wanting IV morphine. (7) Critical illness myopathy Is this a current diagnosis for this admission?: Yes (8) Dysphagia Qualifiers: Dysphagia type: oropharyngeal phase Qualified Code(s): R13.12 - Dysphagia, oropharyngeal phase Is this a current diagnosis for this admission?: Yes - Plan Summary Summary: Patient is essentially refusing vital medical care including work-ups, monitoring and therapies putting him at risk of serious complications. He has not consented to hospice. The only medical care he seems to want his narcotic for pain medication. Mental status is intact. At this point, plan is to discharge patient to an LTAC once available since he is refusing medical care. Unfortunately it seems getting placement for him is quite difficult. - Time Time Spent with patient: 15-24 minutes Anticipated Discharge Disposition: [facility] Anticipated Discharge Timeframe: when bed available
[2020-07-06 17:44] LABS: HEMATOCRIT 20.9 % (37.9-51.0); MEAN CORPUSCULAR HEMOGLOBIN 26.6 pg (27.0-33.4); MEAN CORPUSCULAR HGB CONC 30.6 g/dL (32.0-36.0); MEAN CORPUSCULAR VOLUME 87 fl (80-97); PLATELET COUNT 389 10^3/uL (150-450); RED BLOOD COUNT 2.39 10^6/uL (4.35-5.55); RED CELL DISTRIBUTION WIDTH 18.3 % (11.5-14.0)
[2020-07-06 17:56] LABS: ALBUMIN 1.8 g/dL (3.5-5.0); ALKALINE PHOSPHATASE 97 U/L (38-126); ANION GAP 7 (5-19); ASPARTATE AMINO TRANSFERASE 7 U/L (17-59); BILIRUBIN,DIRECT 0.2 mg/dL (0.0-0.4); BILIRUBIN,TOTAL 0.4 mg/dL (0.2-1.3); BLOOD UREA NITROGEN 13 mg/dL (7-20); CARBON DIOXIDE 24 mmol/L (22-30); CHLORIDE 114 mmol/L (98-107); GLUCOSE 317 mg/dL (75-110); TOTAL PROTEIN 5.2 g/dL (6.3-8.2)
[2020-07-06 18:10] LABS: POTASSIUM 2.5 mmol/L (3.6-5.0)
[2020-07-06 18:13] LABS: HEMOGLOBIN 6.4 g/dL (13.5-17.0); WHITE BLOOD COUNT 33.8 10^3/uL (4.0-10.5)
[2020-07-06 18:17] LABS: ABSOLUTE MONOCYTES # (MANUAL) 0.3 10^3/uL (0.1-1.4); BASOPHILS % (MANUAL) 0 % (0-2); EOSINOPHILS % (MANUAL) 0 % (0-6); LYMPHOCYTES % (MANUAL) 3 % (13-45); MONOCYTES % (MANUAL) 1 % (3-13); SEGMENTED NEUTROPHILS % (MAN) 96 % (42-78); TOTAL CELLS COUNTED 100
[2020-07-06 18:19] LABS: ANISOCYTOSIS 2+; OVALOCYTES SLIGHT; PLATELET COMMENT ADEQUATE
[2020-07-06] MEDS ORDERED: NORMAL SALINE 250 ML IV PRN ×2 (18:22)
[2020-07-06] MEDS ORDERED: POTASSIUM CHLORIDE 20 MEQ PACKET PO ONE (19:30)
[2020-07-06] MEDS: POTASSI CL 20 MEQ/50 ML RIDER 20 MEQ/50 ML RTUPB IV SCH ×2 (21:24→23:39)
[2020-07-07] MEDS: CALCIUM CARBONATE 600 MG TABLET PO SCH ×3 (00:01→22:47)
[2020-07-07] MEDS: NORMAL SALINE 10 ML SDV (SCHEDULED) IV SCH ×3 (00:01→23:22)
[2020-07-07] MEDS: INSULIN REG, HUMAN 100 UNIT/ML 3 ML VIAL (PYX) SUBCUT SCH ×4 (00:11→17:23)
[2020-07-07] MEDS: LACTULOSE SYRUP 20 GM/30 ML UDCUP PEG SCH ×4 (00:11→22:25)
[2020-07-07] MEDS ORDERED: POTASSIUM CHLORIDE 20 MEQ PACKET PO ONE ×2 (00:30→10:00)
[2020-07-07] MEDS: POTASSI CL 20 MEQ/50 ML RIDER 20 MEQ/50 ML RTUPB IV SCH (01:48)
[2020-07-07] MEDS: DEXTROSE 5%-NORMAL SALINE 1,000 ML IV PRN (02:33)
[2020-07-07] MEDS ORDERED: NITROGLYCERIN 0.4 MG/TAB 25 TAB/BOTTLE SL ONE (04:15)
[2020-07-07 04:58] LABS: ALKALINE PHOSPHATASE 118 U/L (38-126); ANION GAP 6 (5-19); ASPARTATE AMINO TRANSFERASE 10 U/L (17-59); BILIRUBIN,DIRECT 0.3 mg/dL (0.0-0.4); BILIRUBIN,TOTAL 1.2 mg/dL (0.2-1.3); BLOOD UREA NITROGEN 15 mg/dL (7-20); CALCIUM 7.7 mg/dL (8.4-10.2); CARBON DIOXIDE 27 mmol/L (22-30); CHLORIDE 114 mmol/L (98-107); GLUCOSE 113 mg/dL (75-110); TOTAL PROTEIN 6.3 g/dL (6.3-8.2)
[2020-07-07 05:00] LABS: POTASSIUM 3.6 mmol/L (3.6-5.0)
[2020-07-07] MEDS ORDERED: MORPHINE SULFATE 10 MG/ML INJ IV ONE (05:00)
[2020-07-07 05:09] LABS: CREATINE KINASE MB 2.46 ng/mL (<4.55)
[2020-07-07 05:15] LABS: TROPONIN I < 0.012 ng/mL
[2020-07-07 07:06] LABS: HEMATOCRIT 27.9 % (37.9-51.0); MEAN CORPUSCULAR HEMOGLOBIN 28.1 pg (27.0-33.4); MEAN CORPUSCULAR HGB CONC 31.6 g/dL (32.0-36.0); MEAN CORPUSCULAR VOLUME 89 fl (80-97); PLATELET COUNT 369 10^3/uL (150-450); RED BLOOD COUNT 3.15 10^6/uL (4.35-5.55); RED CELL DISTRIBUTION WIDTH 16.2 % (11.5-14.0)
[2020-07-07 07:41] LABS: HEMOGLOBIN 8.8 g/dL (13.5-17.0); WHITE BLOOD COUNT 32.5 10^3/uL (4.0-10.5)
[2020-07-07 07:45] LABS: ABSOLUTE LYMPHOCYTES# (MANUAL) 0.3 10^3/uL (0.5-4.7); BASOPHILS % (MANUAL) 0 % (0-2); EOSINOPHILS % (MANUAL) 0 % (0-6); LYMPHOCYTES % (MANUAL) 1 % (13-45); MONOCYTES % (MANUAL) 0 % (3-13); SEGMENTED NEUTROPHILS % (MAN) 99 % (42-78); TOTAL CELLS COUNTED 100
[2020-07-07 07:46] LABS: ANISOCYTOSIS 1+; BURR CELLS SLIGHT; OVALOCYTES SLIGHT
[2020-07-07 07:47] LABS: PLATELET COMMENT ADEQUATE
[2020-07-07] MEDS ORDERED: BISACODYL 10 MG SUPP.RECT PR ONE (07:52)
[2020-07-07] MEDS ORDERED: 1/2 NORMAL SALINE 1,000 ML IV PRN (07:56)
[2020-07-07] MEDS: IPRATROPIUM/ALBUTEROL 0.5-2.5 MG/3 ML AMPUL NEB PRN ×2 (08:02→20:40)
[2020-07-07] MEDS: ACETYLCYSTEINE 20% SOLN 800 MG/4 ML VIAL.NEB NEB SCH ×2 (08:02→20:40)
[2020-07-07] MEDS: MAGNESIUM SULFATE/D5W 1 GM/100 ML RTUPB IV SCH ×2 (08:24→09:47)
[2020-07-07] MEDS: DIPHENHYDRAMINE HCL 50 MG/ML VIAL IV PRN ×2 (08:24→16:45)
[2020-07-07] MEDS: PROMETHAZINE HCL INJ 25 MG/1 ML VIAL IV PRN ×2 (08:24→16:45)
--- NOTE | 2020-07-07 08:58 | RADIOLOGY REPORT (SQ) ---
EXAM DESCRIPTION: CHEST SINGLE VIEW IMAGES COMPLETED DATE/TIME: 07/07/2020 8:39 am REASON FOR STUDY: leukocytosis J96.21 ACUTE AND CHRONIC RESPIRATORY FAILURE WITH HYPOXIA COMPARISON: 06/24/2020 NUMBER OF VIEWS: One view. TECHNIQUE: Single frontal radiographic image of the chest acquired. LIMITATIONS: None. FINDINGS: Tracheostomy TUBE: Appropriate location. OTHER SUPPORT DEVICES: Left PICC CHANGES IN RADIOGRAPHIC FINDINGS: Increased airspace opacities in both lung bases. HARDWARE: None in the chest. OTHER: No other significant finding. IMPRESSION: Increased airspace opacities in both lung bases. TECHNICAL DOCUMENTATION: JOB ID: [id number] [id number] 2010 [employer]- All Rights Reserved Reading location - IP/workstation name: [email or web address]
[2020-07-07] MEDS: NA PHOS,M-B/NA PHOS,DI-BA (ADULT) 133 ML ENEMA PR SCH (09:47)
[2020-07-07] MEDS: BUSPIRONE HCL 10 MG TABLET PEG SCH ×2 (09:47→17:22)
[2020-07-07] MEDS: HYDROXYZINE HCL INJ 50 MG/1 ML VIAL IM PRN ×2 (09:48→20:21)
[2020-07-07] MEDS: AMINO AC/PROTEIN HYDR/WHEY PRO 11 GM/45 ML PKT PEG SCH ×2 (10:10→17:23)
[2020-07-07] MEDS: SCOPOLAMINE HYDROBROMIDE 1.5 MG PATCH.TD72 TD SCH (10:10)
[2020-07-07] MEDS: TRAMADOL HCL 50 MG TABLET PEG PRN (10:17)
--- NOTE | 2020-07-07 12:22 | EKG REPORT ---
SEVERITY:- ABNORMAL ECG - SINUS TACHYCARDIA VENTRICULAR PREMATURE COMPLEX ANTERIOR INFARCT, AGE INDETERMINATE : Confirmed by: Sharlene Forte MD 07-Jul-2020 12:21:58
--- NOTE | 2020-07-07 15:33 | PDOC PROGRESS REPORT ---
Subjective Date:: 07/07/20 Subjective:: Patient complains of no pain this morning. However later in the afternoon, he s tarted requesting for morphine again. Reason For Visit: MUCOUS PLUGGING, ACUTE HYPOXIC RESPIRATORY FAILURE Physical Exam Vital Signs: Temp Pulse Resp BP Pulse Ox 97.5 F 108 H 18 143/82 H 97 07/07/20 10:00 07/07/20 09:03 07/07/20 09:03 07/07/20 09:03 07/07/20 13:58 Intake & Output 07/06/20 07/07/20 07/08/20 06:59 06:59 06:59 Intake Total 972 2750 100 Output Total 575 625 Balance 397 2125 100 Weight 76.3 kg 78.3 kg General appearance: PRESENT: no acute distress. ABSENT: cooperative Neck exam: PRESENT: tracheostomy Respiratory exam: PRESENT: unlabored. ABSENT: accessory muscle use, retraction Cardiovascular exam: PRESENT: tachycardia. ABSENT: bradycardia, irregular rhythm, RRR GI/Abdominal exam: PRESENT: soft. ABSENT: rebound, rigid, tenderness Extremities exam: ABSENT: pedal edema Neurological exam: PRESENT: alert, awake Psychiatric exam: ABSENT: agitated, anxious Focused psych exam: ABSENT: pressured speech Skin exam: ABSENT: jaundice Results Laboratory Results: 07/07/20 06:14 07/07/20 04:03 07/06/20 07/06/20 07/06/20 16:45 16:45 21:20 WBC 33.8 H* RBC 2.39 L Hgb 6.4 L Hct 20.9 L MCV 87 MCH 26.6 L MCHC 30.6 L RDW 18.3 H Plt Count 389 Seg Neutrophils % Not Reportable Sodium 145.0 Potassium 2.5 L* Chloride 114 H Carbon Dioxide 24 Anion Gap 7 BUN 13 Creatinine 0.69 Est GFR ( Amer) > 60 Glucose 317 H Calcium 7.0 L* Magnesium Total Bilirubin 0.4 AST 7 L Alkaline Phosphatase 97 Total Protein 5.2 L Albumin 1.8 L Blood Type A POSITIVE Antibody Screen NEGATIVE 07/07/20 07/07/20 04:03 06:14 WBC 32.5 H* RBC 3.15 L Hgb 8.8 L D Hct 27.9 L MCV 89 MCH 28.1 MCHC 31.6 L RDW 16.2 H Plt Count 369 Seg Neutrophils % Not Reportable Sodium 146.8 H Potassium 3.6 D Chloride 114 H Carbon Dioxide 27 Anion Gap 6 BUN 15 Creatinine 0.77 Est GFR ( Amer) > 60 Glucose 113 H Calcium 7.7 L Magnesium 1.5 L Total Bilirubin 1.2 AST 10 L Alkaline Phosphatase 118 Total Protein 6.3 Albumin 2.0 L Blood Type Antibody Screen 04/20/20 04/23/20 04/23/20 09:00 01:55 01:55 Creatine Kinase < 20 L CK-MB (CK-2) 2.20 Troponin I < 0.012 0.082 NT-Pro-B Natriuret Pep 29439 H 04/23/20 04/23/20 04/23/20 05:58 08:22 14:50 Creatine Kinase < 20 L < 20 L CK-MB (CK-2) 2.24 Troponin I 0.066 NT-Pro-B Natriuret Pep 04/23/20 06/09/20 07/07/20 14:50 05:20 04:03 Creatine Kinase < 20 L CK-MB (CK-2) 2.09 Troponin I 0.057 NT-Pro-B Natriuret Pep 53594 H 07/07/20 04:03 Creatine Kinase CK-MB (CK-2) 2.46 Troponin I < 0.012 NT-Pro-B Natriuret Pep Impressions: PICC Line Insertion 05/07/20 00:00 IMPRESSION: SUCCESSFUL PLACEMENT OF A 5 FR DUAL LUMEN 47 CM PICC IN THE LEFT BRACHIOCEPHALIC VEIN. Modified Barium Swallow 06/03/20 00:00 IMPRESSION: LARYNGEAL PENETRATION AND ASPIRATION ABOVE. HE WAS PLEASE SEE SPEECH PATHOLOGIST REPORT FOR OTHER FINDINGS AND RECOMMENDATIONS. Thoracentesis Ultrasound 06/08/20 14:12 IMPRESSION: SUCCESSFUL THORACENTESIS USING ULTRASOUND GUIDANCE. Chest CT 06/15/20 00:00 IMPRESSION: Moderate bilateral pleural effusions with bilateral multifocal pneumonia. Mediastinal lymphadenopathy is probably reactive. KUB X-Ray 07/06/20 00:00 IMPRESSION: PROMINENT STOOL IN THE RECTUM. NO RADIOGRAPHIC EVIDENCE FOR ACUTE ABDOMINAL DISEASE. Chest X-Ray 07/07/20 00:00 IMPRESSION: Increased airspace opacities in both lung bases. Assessment and Plan - Diagnosis (1) Dependent on ventilator Is this a current diagnosis for this admission?: Yes Plan: Remains on the mechanical ventilator. Appears comfortable. FiO2 has been weaned down to 45%. Instructed staff to notify MD if fio2 needs to be increased. Goal is to gradually attempt to wean to a trach collar if possible. (2) Leukocytosis Qualifiers: Leukocytosis type: unspecified Qualified Code(s): D72.829 - Elevated white blood cell count, unspecified Is this a current diagnosis for this admission?: Yes Plan: His WBC has been climbing and now is up to 33 after finally allowing us to do blood work His chest x-ray has bilateral infiltrates but on my review of image actually looks to be more improved than his most recent chest x-ray. Moreover he is not having any increased secretions. We will monitor. I am however concerned that he may be having a new/recurrent bacteremia e specially as he was recently treated with 14 days of antibiotics for VRE + MSSA bacteremia but refused to allow for TTE at that time to evaluate for endocarditis and seems to have declined repeat blood cultures then. I have tried to obtain blood cultures on him today but he is now once again refusing labs. 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 (5) Malnutrition Qualifiers: Malnutrition type: protein-calorie malnutrition Protein-calorie malnutrition severity: severe Qualified Code(s): E43 - Unspecified severe protein-calorie malnutrition Is this a current diagnosis for this admission?: Yes Plan: He is refusing tube feeds again. We will continue back on D5 saline. (6) Chronically on opiate therapy Is this a current diagnosis for this admission?: Yes Plan: He is demonstrating drug seeking behavior and only focused on getting IV narcotics neglecting other aspects of his medical care. I have encouraged him to try other modalities for pain control including Tylenol and tramadol rather than only wanting IV morphine. (7) Critical illness myopathy Is this a current diagnosis for this admission?: Yes (8) Dysphagia Qualifiers: Dysphagia type: oropharyngeal phase Qualified Code(s): R13.12 - Dysphagia, oropharyngeal phase Is this a current diagnosis for this admission?: Yes - Plan Summary Summary: Patient's continued refusal of vital studies, labs and meds make it impossible to care for him adequately and may ultimately lead to his demise. - Time Time Spent with patient: 15-24 minutes Anticipated Discharge [facility]position[facility] Anticipated Discharge Timeframe: when bed available
[2020-07-08] MEDS: INSULIN REG, HUMAN 100 UNIT/ML 3 ML VIAL (PYX) SUBCUT SCH ×4 (01:30→17:50)
[2020-07-08] MEDS: DIPHENHYDRAMINE HCL 50 MG/ML VIAL IV PRN ×3 (03:27→21:24)
[2020-07-08] MEDS: IPRATROPIUM/ALBUTEROL 0.5-2.5 MG/3 ML AMPUL NEB PRN ×3 (03:30→21:16)
[2020-07-08] MEDS: HYDROXYZINE HCL INJ 50 MG/1 ML VIAL IM PRN ×3 (04:37→20:37)
[2020-07-08] MEDS: LACTULOSE SYRUP 20 GM/30 ML UDCUP PEG SCH ×3 (05:47→21:22)
[2020-07-08 06:25] LABS: HEMATOCRIT 29.8 % (37.9-51.0); HEMOGLOBIN 9.6 g/dL (13.5-17.0); MEAN CORPUSCULAR HEMOGLOBIN 27.5 pg (27.0-33.4); MEAN CORPUSCULAR HGB CONC 32.2 g/dL (32.0-36.0); PLATELET COUNT 394 10^3/uL (150-450); RED BLOOD COUNT 3.49 10^6/uL (4.35-5.55); RED CELL DISTRIBUTION WIDTH 16.8 % (11.5-14.0)
[2020-07-08 06:38] LABS: ALKALINE PHOSPHATASE 125 U/L (38-126); ANION GAP 7 (5-19); ASPARTATE AMINO TRANSFERASE 10 U/L (17-59); BILIRUBIN,DIRECT 0.3 mg/dL (0.0-0.4); BILIRUBIN,TOTAL 0.5 mg/dL (0.2-1.3); BLOOD UREA NITROGEN 19 mg/dL (7-20); CALCIUM 7.7 mg/dL (8.4-10.2); CARBON DIOXIDE 25 mmol/L (22-30); CHLORIDE 112 mmol/L (98-107); GLUCOSE 83 mg/dL (75-110); POTASSIUM 3.2 mmol/L (3.6-5.0); TOTAL PROTEIN 6.2 g/dL (6.3-8.2)
[2020-07-08 07:19] LABS: MEAN CORPUSCULAR VOLUME 85 fl (80-97)
[2020-07-08 07:21] LABS: ABSOLUTE MONOCYTES # (MANUAL) 1.9 10^3/uL (0.1-1.4); ANISOCYTOSIS 1+; BASOPHILS % (MANUAL) 0 % (0-2); EOSINOPHILS % (MANUAL) 0 % (0-6); LYMPHOCYTES % (MANUAL) 3 % (13-45); MONOCYTES % (MANUAL) 6 % (3-13); SEGMENTED NEUTROPHILS % (MAN) 91 % (42-78); TOTAL CELLS COUNTED 100
[2020-07-08 07:22] LABS: OVALOCYTES SLIGHT; SCHISTOCYTES SLIGHT
[2020-07-08 07:23] LABS: PLATELET COMMENT ADEQUATE
[2020-07-08 07:39] LABS: WHITE BLOOD COUNT 31.9 10^3/uL (4.0-10.5)
--- NOTE | 2020-07-08 07:58 | EKG REPORT ---
SEVERITY:- ABNORMAL ECG - SINUS TACHYCARDIA LOW VOLTAGE IN FRONTAL LEADS CONSIDER ANTEROSEPTAL INFARCT BORDERLINE T WAVE ABNORMALITIES : Confirmed by: Moe Barrientos MD 08-Jul-2020 07:57:34
[2020-07-08] MEDS: ACETYLCYSTEINE 20% SOLN 800 MG/4 ML VIAL.NEB NEB SCH ×2 (08:03→21:15)
[2020-07-08] MEDS ORDERED: POTASSIUM CHLORIDE 20 MEQ PACKET PO ONE (08:15)
[2020-07-08] MEDS: POTASSI CL 20 MEQ/50 ML RIDER 20 MEQ/50 ML RTUPB IV SCH ×2 (10:20→12:11)
[2020-07-08] MEDS: CALCIUM CARBONATE 600 MG TABLET PO SCH (10:21)
[2020-07-08] MEDS: NORMAL SALINE 10 ML SDV (SCHEDULED) IV SCH ×2 (10:21→21:25)
[2020-07-08] MEDS: BUSPIRONE HCL 10 MG TABLET PEG SCH ×2 (10:21→17:50)
[2020-07-08] MEDS: AMINO AC/PROTEIN HYDR/WHEY PRO 11 GM/45 ML PKT PEG SCH ×2 (10:22→17:50)
[2020-07-08] MEDS: NA PHOS,M-B/NA PHOS,DI-BA (ADULT) 133 ML ENEMA PR SCH (10:22)
[2020-07-08 10:56] LABS: PATH REVIEW PATHOLOGIST REVIEWED
[2020-07-08] MEDS ORDERED: MORPHINE SULFATE 10 MG/ML INJ IV PRN (11:19)
[2020-07-08] MEDS ORDERED: MORPHINE SULFATE 10 MG/ML INJ ONE (12:03)
[2020-07-08] MEDS ORDERED: MEROPENEM 1 GM VIAL IV SCH (14:15)
--- NOTE | 2020-07-08 14:25 | PDOC PROGRESS REPORT ---
Subjective Date:: 07/08/20 Subjective:: Asked for his IV pain meds. Had a bowel movement yesterday. He finally agreed f or blood cultures to be obtained yesterday in evaluation of his remarkable leukocytosis. Reason For Visit: MUCOUS PLUGGING, ACUTE HYPOXIC RESPIRATORY FAILURE Physical Exam Vital Signs: Temp Pulse Resp BP Pulse Ox 97.5 F 101 H 16 142/88 H 100 07/08/20 10:00 07/08/20 08:03 07/08/20 08:03 07/07/20 20:59 07/08/20 12:00 Intake & Output 07/07/20 07/08/20 07/09/20 06:59 06:59 06:59 Intake Total 2750 932 46 Output Total 625 500 Balance 2125 432 46 Weight 78.3 kg 79.1 kg General appearance: PRESENT: no acute distress Mouth exam: PRESENT: neck supple Neck exam: PRESENT: tracheostomy. ABSENT: JVD Respiratory exam: PRESENT: rhonchi - mild, symmetrical, unlabored. ABSENT: crackles, tachypnea, wheezes Cardiovascular exam: PRESENT: +S1, +S2, tachycardia. ABSENT: irregular rhythm GI/Abdominal exam: PRESENT: soft. ABSENT: rebound, rigid, tenderness Neurological exam: PRESENT: alert, awake, oriented to situation Psychiatric exam: PRESENT: agitated. ABSENT: anxious Focused psych exam: ABSENT: pressured speech Results Laboratory Results: 07/08/20 05:16 07/08/20 05:16 07/08/20 07/08/20 05:16 05:16 WBC 31.9 H* RBC 3.49 L Hgb 9.6 L Hct 29.8 L MCV 85 D MCH 27.5 MCHC 32.2 RDW 16.8 H Plt Count 394 Seg Neutrophils % Not Reportable Sodium 144.0 Potassium 3.2 L Chloride 112 H Carbon Dioxide 25 Anion Gap 7 BUN 19 Creatinine 0.84 Est GFR ( Amer) > 60 Glucose 83 Calcium 7.7 L Total Bilirubin 0.5 AST 10 L Alkaline Phosphatase 125 Total Protein 6.2 L Albumin 2.0 L 04/20/20 04/23/20 04/23/20 09:00 01:55 01:55 Creatine Kinase < 20 L CK-MB (CK-2) 2.20 Troponin I < 0.012 0.082 NT-Pro-B Natriuret Pep 77759 H 04/23/20 04/23/20 04/23/20 05:58 08:22 14:50 Creatine Kinase < 20 L < 20 L CK-MB (CK-2) 2.24 Troponin I 0.066 NT-Pro-B Natriuret Pep 04/23/20 06/09/20 07/07/20 14:50 05:20 04:03 Creatine Kinase < 20 L CK-MB (CK-2) 2.09 Troponin I 0.057 NT-Pro-B Natriuret Pep 33743 H 07/07/20 04:03 Creatine Kinase CK-MB (CK-2) 2.46 Troponin I < 0.012 NT-Pro-B Natriuret Pep Impressions: PICC Line Insertion 05/07/20 00:00 IMPRESSION: SUCCESSFUL PLACEMENT OF A 5 FR DUAL LUMEN 47 CM PICC IN THE LEFT BRACHIOCEPHALIC VEIN. Modified Barium Swallow 06/03/20 00:00 IMPRESSION: LARYNGEAL PENETRATION AND ASPIRATION ABOVE. HE WAS PLEASE SEE SPEECH PATHOLOGIST REPORT FOR OTHER FINDINGS AND RECOMMENDATIONS. Thoracentesis Ultrasound 06/08/20 14:12 IMPRESSION: SUCCESSFUL THORACENTESIS USING ULTRASOUND GUIDANCE. Chest CT 06/15/20 00:00 IMPRESSION: Moderate bilateral pleural effusions with bilateral multifocal pneumonia. Mediastinal lymphadenopathy is probably reactive. KUB X-Ray 07/06/20 00:00 IMPRESSION: PROMINENT STOOL IN THE RECTUM. NO RADIOGRAPHIC EVIDENCE FOR ACUTE ABDOMINAL DISEASE. Chest X-Ray 07/07/20 00:00 IMPRESSION: Increased airspace opacities in both lung bases. Assessment and Plan - Diagnosis (1) Gram-negative bacteremia Is this a current diagnosis for this admission?: Yes Plan: Now the patient has finally let us obtain blood cultures, they have come back positive for gram-negative rods. I will start Meropenem as he has high risk for Multidrug resistant species. (2) Dependent on ventilator Is this a current diagnosis for this admission?: Yes Plan: Remains on the mechanical ventilator. Appears comfortable. Will wean fio2 further down to 30% today. Goal is to gradually attempt to wean to a trach collar if possible but he has been on the vent for quite some time now. (3) Leukocytosis Qualifiers: Leukocytosis type: unspecified Qualified Code(s): D72.829 - Elevated white blood cell count, unspecified Is this a current diagnosis for this admission?: Yes Plan: His WBC has been climbing and now is up to 33 after finally allowing us to do blood work His chest x-ray has bilateral infiltrates but on my review of image actually looks to be more improved than his most recent chest x-ray. Moreover he is not having any increased secretions. We will monitor. I am however concerned that he may be having a new/recurrent bacteremia especia char as he was recently treated with 14 days of antibiotics for VRE + MSSA bacteremia but refused to allow for TTE at that time to evaluate for endocarditis and seems to have declined repeat blood cultures then. I have tried to obtain blood cultures on him today but he is now once again refusing labs. 07/08 His blood cx have come back + for GNR. I suspect more organisms may grow. Monitor. (4) Hyperglycemia due to type 2 diabetes mellitus Qualifiers: Diabetes mellitus shelter insulin use: with shelter use Qualified Code(s): E11.65 - Type 2 diabetes mellitus with hyperglycemia; Z79.4 - nursing home (current) use of insulin Is this a current diagnosis for this admission?: Yes Plan: mild hyperglcemia today. Mostly refusing accuchecks and therapy (5) Retained feces Qualifiers: Constipation type: drug induced constipation Qualified Code(s): K59.03 - Drug induced constipation Is this a current diagnosis for this admission?: Yes Plan: Noted in kub but refused laxatives/suppos. Had BM yesterday and today. Mostly loose though. (6) Malnutrition Qualifiers: Malnutrition type: protein-calorie malnutrition Protein-calorie malnutrition severity: severe Qualified Code(s): E43 - Unspecified severe protein-calorie malnutrition Is this a current diagnosis for this admission?: Yes Plan: He is refusing tube feeds again. We have continued back on D5 saline and protein supplements. Severely malnourished. (7) Chronically on opiate therapy Is this a current diagnosis for this admission?: Yes Plan: He is demonstrating drug seeking behavior and only focused on getting IV narcotics neglecting other aspects of his medical care. I have encouraged him to try other modalities for pain control including Tylenol and tramadol rather than only wanting IV morphine. (8) Critical illness myopathy Is this a current diagnosis for this admission?: Yes (9) Dysphagia Qualifiers: Dysphagia type: oropharyngeal phase Qualified Code(s): R13.12 - Dysphagia, oropharyngeal phase Is this a current diagnosis for this admission?: Yes - Plan Summary Summary: Patient's continual refusal of vital studies, labs and meds as well as pre- occupation with IV narcotics, make it impossible to care for him adequately and may ultimately lead to his demise. - Time Time Spent with patient: Less than 15 minutes Anticipated Discharge Disposition: [facility] Anticipated Discharge Timeframe: when bed available
[2020-07-08] MEDS: PROMETHAZINE HCL INJ 25 MG/1 ML VIAL IV PRN ×2 (15:41→22:12)
[2020-07-08] MEDS: MEROPENEM 1 GM in NORMAL SALINE 50 ML IV SCH (16:53)
[2020-07-08] MEDS: DEXTROSE 5%-NORMAL SALINE 1,000 ML IV PRN (16:54)
[2020-07-08] MEDS ORDERED: LINEZOLID 600 MG/300 ML RTUPB IV SCH (17:00)
--- NOTE | 2020-07-08 17:38 | EKG REPORT ---
SEVERITY:- ABNORMAL ECG - SINUS TACHYCARDIA LOW VOLTAGE THROUGHOUT CONSIDER ANTEROSEPTAL INFARCT BORDERLINE T WAVE ABNORMALITIES : Confirmed by: Moe Barrientos MD 08-Jul-2020 17:37:24
[2020-07-08] MEDS: TRAMADOL HCL 50 MG TABLET PEG PRN (20:37)
[2020-07-09] MEDS: MEROPENEM 1 GM in NORMAL SALINE 50 ML IV SCH ×3 (02:42→17:39)
[2020-07-09] MEDS: HYDROXYZINE HCL INJ 50 MG/1 ML VIAL IM PRN ×3 (05:28→23:32)
[2020-07-09] MEDS: LACTULOSE SYRUP 20 GM/30 ML UDCUP PEG SCH ×3 (05:28→22:11)
[2020-07-09] MEDS: DIPHENHYDRAMINE HCL 50 MG/ML VIAL IV PRN ×3 (05:33→23:32)
[2020-07-09] MEDS: INSULIN REG, HUMAN 100 UNIT/ML 3 ML VIAL (PYX) SUBCUT SCH ×4 (05:42→17:32)
[2020-07-09 06:46] LABS: HEMATOCRIT 27.6 % (37.9-51.0); MEAN CORPUSCULAR HEMOGLOBIN 28.1 pg (27.0-33.4); MEAN CORPUSCULAR HGB CONC 32.7 g/dL (32.0-36.0); MEAN CORPUSCULAR VOLUME 86 fl (80-97); PLATELET COUNT 379 10^3/uL (150-450); RED BLOOD COUNT 3.21 10^6/uL (4.35-5.55); RED CELL DISTRIBUTION WIDTH 16.9 % (11.5-14.0); WHITE BLOOD COUNT 28.3 10^3/uL (4.0-10.5)
[2020-07-09 07:17] LABS: BASOPHILS % (MANUAL) 0 % (0-2); EOSINOPHILS % (MANUAL) 0 % (0-6); LYMPHOCYTES % (MANUAL) 7 % (13-45); MONOCYTES % (MANUAL) 0 % (3-13); SEGMENTED NEUTROPHILS % (MAN) 93 % (42-78); TOTAL CELLS COUNTED 100
[2020-07-09 07:19] LABS: ANISOCYTOSIS 1+; OVALOCYTES 1+; PLATELET COMMENT ADEQUATE; POIKILOCYTOSIS 1+; TEAR DROP CELLS 1+
[2020-07-09 07:21] LABS: ALBUMIN 1.8 g/dL (3.5-5.0); ALKALINE PHOSPHATASE 114 U/L (38-126); ANION GAP 7 (5-19); ASPARTATE AMINO TRANSFERASE 10 U/L (17-59); BILIRUBIN,DIRECT 0.3 mg/dL (0.0-0.4); BILIRUBIN,TOTAL 0.5 mg/dL (0.2-1.3); BLOOD UREA NITROGEN 19 mg/dL (7-20); CALCIUM 7.5 mg/dL (8.4-10.2); CARBON DIOXIDE 22 mmol/L (22-30); CHLORIDE 116 mmol/L (98-107); GLUCOSE 219 mg/dL (75-110); POTASSIUM 3.6 mmol/L (3.6-5.0); TOTAL PROTEIN 5.9 g/dL (6.3-8.2)
[2020-07-09] MEDS: PROMETHAZINE HCL INJ 25 MG/1 ML VIAL IV PRN (07:59)
[2020-07-09] MEDS: ACETYLCYSTEINE 20% SOLN 800 MG/4 ML VIAL.NEB NEB SCH ×2 (08:01→20:43)
[2020-07-09] MEDS: IPRATROPIUM/ALBUTEROL 0.5-2.5 MG/3 ML AMPUL NEB PRN ×2 (08:01→20:43)
[2020-07-09] MEDS: DEXTROSE 5%-NORMAL SALINE 1,000 ML IV PRN (09:51)
[2020-07-09] MEDS: BUSPIRONE HCL 10 MG TABLET PEG SCH ×2 (13:47→17:31)
[2020-07-09] MEDS: NA PHOS,M-B/NA PHOS,DI-BA (ADULT) 133 ML ENEMA PR SCH (13:48)
[2020-07-09] MEDS: AMINO AC/PROTEIN HYDR/WHEY PRO 11 GM/45 ML PKT PEG SCH ×2 (13:49→17:32)
[2020-07-09] MEDS: NORMAL SALINE 10 ML SDV (SCHEDULED) IV SCH ×2 (13:56→23:32)
--- NOTE | 2020-07-09 15:20 | PDOC PROGRESS REPORT ---
Subjective Reason For Visit: MUCOUS PLUGGING, ACUTE HYPOXIC RESPIRATORY FAILURE Physical Exam Vital Signs: Temp Pulse Resp BP Pulse Ox 97.8 F 103 H 18 157/105 H 97 07/08/20 22:00 07/09/20 08:03 07/09/20 08:03 07/09/20 00:45 07/09/20 12:00 Intake & Output 07/08/20 07/09/20 07/10/20 06:59 06:59 06:59 Intake Total 806 867 3133 Output Total 500 675 Balance 432 -529 1000 Weight 79.1 kg 82.2 kg 82.2 kg Results Laboratory Results: 07/09/20 05:35 07/09/20 05:35 07/09/20 07/09/20 05:35 05:35 WBC 28.3 H RBC 3.21 L Hgb 9.0 L Hct 27.6 L MCV 86 MCH 28.1 MCHC 32.7 RDW 16.9 H Plt Count 379 Seg Neutrophils % Not Reportable Sodium 144.5 Potassium 3.6 Chloride 116 H Carbon Dioxide 22 Anion Gap 7 BUN 19 Creatinine 0.75 Est GFR ( Amer) > 60 Glucose 219 H Calcium 7.5 L Total Bilirubin 0.5 AST 10 L Alkaline Phosphatase 114 Total Protein 5.9 L Albumin 1.8 L 07/08/20 05:20 Blood Blood Culture (PCR) - Final Enterobacter Cloacae Complex 07/07/20 22:44 Blood Blood Culture (PCR) - Final Staphylococcus Aureus Enterobacter Cloacae Complex 04/20/20 04/23/20 04/23/20 09:00 01:55 01:55 Creatine Kinase < 20 L CK-MB (CK-2) 2.20 Troponin I < 0.012 0.082 NT-Pro-B Natriuret Pep 60568 H 04/23/20 04/23/20 04/23/20 05:58 08:22 14:50 Creatine Kinase < 20 L < 20 L CK-MB (CK-2) 2.24 Troponin I 0.066 NT-Pro-B Natriuret Pep 04/23/20 06/09/20 07/07/20 14:50 05:20 04:03 Creatine Kinase < 20 L CK-MB (CK-2) 2.09 Troponin I 0.057 NT-Pro-B Natriuret Pep 48959 H 07/07/20 04:03 Creatine Kinase CK-MB (CK-2) 2.46 Troponin I < 0.012 NT-Pro-B Natriuret Pep Impressions: PICC Line Insertion 05/07/20 00:00 IMPRESSION: SUCCESSFUL PLACEMENT OF A 5 FR DUAL LUMEN 47 CM PICC IN THE LEFT BRACHIOCEPHALIC VEIN. Modified Barium Swallow 06/03/20 00:00 IMPRESSION: LARYNGEAL PENETRATION AND ASPIRATION ABOVE. HE WAS PLEASE SEE SPEECH PATHOLOGIST REPORT FOR OTHER FINDINGS AND RECOMMENDATIONS. Thoracentesis Ultrasound 06/08/20 14:12 IMPRESSION: SUCCESSFUL THORACENTESIS USING ULTRASOUND GUIDANCE. Chest CT 06/15/20 00:00 IMPRESSION: Moderate bilateral pleural effusions with bilateral multifocal pneumonia. Mediastinal lymphadenopathy is probably reactive. KUB X-Ray 07/06/20 00:00 IMPRESSION: PROMINENT STOOL IN THE RECTUM. NO RADIOGRAPHIC EVIDENCE FOR ACUTE ABDOMINAL DISEASE. Chest X-Ray 07/07/20 00:00 IMPRESSION: Increased airspace opacities in both lung bases. Assessment and Plan - Diagnosis (1) Acute on chronic respiratory failure with hypoxia and hypercapnia Is this a current diagnosis for this admission?: Yes (2) Bacteremia due to Enterococcus Is this a current diagnosis for this admission?: Yes (3) Bilateral pneumonia Qualifiers: Pneumonia type: aspiration pneumonia Lung location: lower lobe of lung Is this a current diagnosis for this admission?: Yes (4) MSSA bacteremia Is this a current diagnosis for this admission?: Yes (5) Malnutrition Qualifiers: Malnutrition type: protein-calorie malnutrition Protein-calorie malnutrition severity: severe Qualified Code(s): E43 - Unspecified severe protein-calorie malnutrition Is this a current diagnosis for this admission?: Yes (6) Retained feces Qualifiers: Constipation type: drug induced constipation Qualified Code(s): K59.03 - Drug induced constipation Is this a current diagnosis for this admission?: Yes - Plan Summary Summary: Patient's continual refusal of vital studies, labs and meds as well as pre- occupation with IV narcotics, make it impossible to care for him adequately and may ultimately lead to his demise. This sentiment has been expressed from multiple previous providers. He refuses to allow us to try to wean him to a trach collar. He refuses anything for his profound constipation, which will only get worse with the narcotics he desires and will ultimately lead to worse harm if we give them to him. He is on meropenem, which should cover both organisms in his blood, which likely came from his respiratory tract. - Time Time Spent with patient: 15-24 minutes Anticipated Discharge Disposition: Unknown Anticipated Discharge Timeframe: Unknown
[2020-07-09] MEDS: TRAMADOL HCL 50 MG TABLET PEG PRN (17:36)
[2020-07-10] MEDS: PROMETHAZINE HCL INJ 25 MG/1 ML VIAL IV PRN (00:24)
[2020-07-10] MEDS: MEROPENEM 1 GM in NORMAL SALINE 50 ML IV SCH ×4 (02:00→17:15)
[2020-07-10] MEDS: TRAMADOL HCL 50 MG TABLET PEG PRN (03:17)
[2020-07-10] MEDS: IPRATROPIUM/ALBUTEROL 0.5-2.5 MG/3 ML AMPUL NEB PRN ×3 (04:08→21:24)
[2020-07-10] MEDS: NITROGLYCERIN 0.4 MG/TAB 25 TAB/BOTTLE SL PRN (04:11)
[2020-07-10] MEDS: DEXTROSE 5%-NORMAL SALINE 1,000 ML IV PRN (04:11)
[2020-07-10] MEDS: LACTULOSE SYRUP 20 GM/30 ML UDCUP PEG SCH ×3 (05:29→21:32)
[2020-07-10] MEDS: INSULIN REG, HUMAN 100 UNIT/ML 3 ML VIAL (PYX) SUBCUT SCH ×4 (06:03→17:14)
--- NOTE | 2020-07-10 07:21 | EKG REPORT ---
SEVERITY:- ABNORMAL ECG - SINUS TACHYCARDIA ANTERIOR INFARCT, AGE INDETERMINATE : Confirmed by: Moe Barrientos MD 10-Jul-2020 07:19:52
[2020-07-10] MEDS: HYDROXYZINE HCL INJ 50 MG/1 ML VIAL IM PRN ×2 (08:14→17:05)
[2020-07-10] MEDS: DIPHENHYDRAMINE HCL 50 MG/ML VIAL IV PRN ×2 (08:14→17:05)
[2020-07-10] MEDS: ACETYLCYSTEINE 20% SOLN 800 MG/4 ML VIAL.NEB NEB SCH ×2 (09:21→21:24)
[2020-07-10] MEDS: BUSPIRONE HCL 10 MG TABLET PEG SCH ×3 (10:00→17:14)
[2020-07-10] MEDS: AMINO AC/PROTEIN HYDR/WHEY PRO 11 GM/45 ML PKT PEG SCH ×3 (10:00→17:15)
[2020-07-10] MEDS: NA PHOS,M-B/NA PHOS,DI-BA (ADULT) 133 ML ENEMA PR SCH (10:09)
[2020-07-10] MEDS: NORMAL SALINE 10 ML SDV (SCHEDULED) IV SCH ×2 (10:09→22:46)
[2020-07-10] MEDS: SCOPOLAMINE HYDROBROMIDE 1.5 MG PATCH.TD72 TD SCH (10:48)
--- NOTE | 2020-07-10 15:15 | PDOC PROGRESS REPORT ---
Subjective Date:: 07/10/20 Subjective:: He continues to remain noncompliant with several aspects of his medical care. Jhon armando was refusing his medications this morning. He keeps stating the call chew to get somebody to come back ventilate him even though he looks comfortable and his saturations are in the mid upper 90s. He refuses to let anyone wean his ventilator to try to get him onto a trach collar. Reason For Visit: MUCOUS PLUGGING, ACUTE HYPOXIC RESPIRATORY FAILURE Physical Exam Vital Signs: Temp Pulse Resp BP Pulse Ox 97.5 F 103 H 20 156/86 H 94 07/10/20 09:09 07/10/20 14:00 07/10/20 09:21 07/09/20 12:58 07/10/20 09:21 Intake & Output 07/09/20 07/10/20 07/11/20 06:59 06:59 06:59 Intake Total 146 2150 Output Total 675 1200 Balance -529 950 Weight 82.2 kg 81.4 kg General appearance: PRESENT: no acute distress Mouth exam: PRESENT: neck supple Neck exam: PRESENT: tracheostomy. ABSENT: JVD Respiratory exam: PRESENT: rhonchi - mild, symmetrical, unlabored. 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 ABSENT: irregular rhythm GI/Abdominal exam: PRESENT: soft. ABSENT: rebound, rigid, tenderness Neurological exam: PRESENT: alert, awake, oriented to situation Psychiatric exam: ABSENT: anxious Results Laboratory Results: 07/09/20 05:35 07/09/20 05:35 07/08/20 05:20 Blood Blood Culture (PCR) - Final Enterobacter Cloacae Complex 07/08/20 05:20 Blood Blood Culture - Final Enterobacter Cloacae 07/07/20 22:44 Blood Blood Culture (PCR) - Final Staphylococcus Aureus Enterobacter Cloacae Complex 07/07/20 22:44 Blood Blood Culture - Final Staphylococcus Aureus Enterobacter Cloacae 07/08/20 06:00 Varner Catheter Urine Culture - Final Enterobacter Cloacae 04/20/20 04/23/20 04/23/20 09:00 01:55 01:55 Creatine Kinase < 20 L CK-MB (CK-2) 2.20 Troponin I < 0.012 0.082 NT-Pro-B Natriuret Pep 06945 H 04/23/20 04/23/20 04/23/20 05:58 08:22 14:50 Creatine Kinase < 20 L < 20 L CK-MB (CK-2) 2.24 Troponin I 0.066 NT-Pro-B Natriuret Pep 04/23/20 06/09/20 07/07/20 14:50 05:20 04:03 Creatine Kinase < 20 L CK-MB (CK-2) 2.09 Troponin I 0.057 NT-Pro-B Natriuret Pep 47605 H 07/07/20 07/10/20 04:03 03:45 Creatine Kinase CK-MB (CK-2) 2.46 Troponin I < 0.012 < 0.012 NT-Pro-B Natriuret Pep Impressions: PICC Line Insertion 05/07/20 00:00 IMPRESSION: SUCCESSFUL PLACEMENT OF A 5 FR DUAL LUMEN 47 CM PICC IN THE LEFT BRACHIOCEPHALIC VEIN. Modified Barium Swallow 06/03/20 00:00 IMPRESSION: LARYNGEAL PENETRATION AND ASPIRATION ABOVE. HE WAS PLEASE SEE SPEECH PATHOLOGIST REPORT FOR OTHER FINDINGS AND RECOMMENDATIONS. Thoracentesis Ultrasound 06/08/20 14:12 IMPRESSION: SUCCESSFUL THORACENTESIS USING ULTRASOUND GUIDANCE. Chest CT 06/15/20 00:00 IMPRESSION: Moderate bilateral pleural effusions with bilateral multifocal pneumonia. Mediastinal lymphadenopathy is probably reactive. KUB X-Ray 07/06/20 00:00 IMPRESSION: PROMINENT STOOL IN THE RECTUM. NO RADIOGRAPHIC EVIDENCE FOR ACUTE ABDOMINAL DISEASE. Chest X-Ray 07/07/20 00:00 IMPRESSION: Increased airspace opacities in both lung bases. Assessment and Plan - Diagnosis (1) Acute on chronic respiratory failure with hypoxia and hypercapnia Is this a current diagnosis for this admission?: Yes (2) Bacteremia due to Enterococcus Is this a current diagnosis for this admission?: Yes (3) Bilateral pneumonia Qualifiers: Pneumonia type: aspiration pneumonia Lung location: lower lobe of lung Is this a current diagnosis for this admission?: Yes (4) MSSA bacteremia Is this a current diagnosis for this admission?: Yes (5) Malnutrition Qualifiers: Malnutrition type: protein-calorie malnutrition Protein-calorie malnutrition severity: severe Qualified Code(s): E43 - Unspecified severe protein-calorie malnutrition Is this a current diagnosis for this admission?: Yes (6) Retained feces Qualifiers: Constipation type: drug induced constipation Qualified Code(s): K59.03 - Drug induced constipation Is this a current diagnosis for this admission?: Yes - Plan Summary Summary: Patient's continual refusal of vital studies, labs and meds as well as pre- occupation with IV narcotics, make it impossible to care for him adequately and may ultimately lead to his demise. This sentiment has been expressed from multiple previous providers. He refuses to allow us to try to wean him to a trach collar. He refuses anything for his profound constipation, which will only get worse with the narcotics he desires and will ultimately lead to worse harm if we give them to him. He is on meropenem, which should cover both organisms in his blood, which likely came from his respiratory tract. His uri nary tract turn positive for the Enterobacter that is in his blood now. He has also grown this organism out of his sputum. - Time Time Spent with patient: 15-24 minutes Anticipated Discharge Disposition: Unknown Anticipated Discharge Timeframe: Unknown
[2020-07-11] MEDS: INSULIN REG, HUMAN 100 UNIT/ML 3 ML VIAL (PYX) SUBCUT SCH ×4 (00:21→17:55)
[2020-07-11] MEDS: HYDROXYZINE HCL INJ 50 MG/1 ML VIAL IM PRN ×2 (01:06→13:13)
[2020-07-11] MEDS: DIPHENHYDRAMINE HCL 50 MG/ML VIAL IV PRN ×2 (01:07→09:14)
[2020-07-11] MEDS: PROMETHAZINE HCL INJ 25 MG/1 ML VIAL IV PRN ×3 (01:21→16:15)
[2020-07-11] MEDS: MEROPENEM 1 GM in NORMAL SALINE 50 ML IV SCH ×3 (02:51→18:10)
[2020-07-11] MEDS: IPRATROPIUM/ALBUTEROL 0.5-2.5 MG/3 ML AMPUL NEB PRN ×3 (05:40→20:39)
[2020-07-11] MEDS: LACTULOSE SYRUP 20 GM/30 ML UDCUP PEG SCH ×2 (07:44→15:24)
[2020-07-11] MEDS: ACETYLCYSTEINE 20% SOLN 800 MG/4 ML VIAL.NEB NEB SCH ×2 (08:10→20:40)
[2020-07-11] MEDS: DEXTROSE 5%-NORMAL SALINE 1,000 ML IV PRN (09:09)
[2020-07-11] MEDS: NA PHOS,M-B/NA PHOS,DI-BA (ADULT) 133 ML ENEMA PR SCH (09:32)
[2020-07-11] MEDS: BUSPIRONE HCL 10 MG TABLET PEG SCH ×2 (09:32→17:55)
[2020-07-11] MEDS: AMINO AC/PROTEIN HYDR/WHEY PRO 11 GM/45 ML PKT PEG SCH ×2 (09:33→17:55)
[2020-07-11] MEDS: NORMAL SALINE 10 ML SDV (SCHEDULED) IV SCH ×2 (09:33→22:04)
[2020-07-11 12:24] LABS: HEMATOCRIT 25.7 % (37.9-51.0); HEMOGLOBIN 8.5 g/dL (13.5-17.0); MEAN CORPUSCULAR HEMOGLOBIN 28.1 pg (27.0-33.4); MEAN CORPUSCULAR VOLUME 85 fl (80-97); PLATELET COUNT 317 10^3/uL (150-450); RED BLOOD COUNT 3.01 10^6/uL (4.35-5.55); RED CELL DISTRIBUTION WIDTH 17.2 % (11.5-14.0); WHITE BLOOD COUNT 22.9 10^3/uL (4.0-10.5)
[2020-07-11] MEDS ORDERED: MORPHINE SULFATE 10 MG/5 ML ORAL SOLUTION UDCUP PO ONE (12:30)
[2020-07-11 12:41] LABS: ALBUMIN 1.9 g/dL (3.5-5.0); ALKALINE PHOSPHATASE 113 U/L (38-126); ASPARTATE AMINO TRANSFERASE 11 U/L (17-59); BILIRUBIN,DIRECT 0.2 mg/dL (0.0-0.4); BILIRUBIN,TOTAL 0.4 mg/dL (0.2-1.3); BLOOD UREA NITROGEN 17 mg/dL (7-20); C-REACTIVE PROTEIN 54.1 mg/L (<10.0); CALCIUM 7.5 mg/dL (8.4-10.2); CARBON DIOXIDE 30 mmol/L (22-30); CHLORIDE 112 mmol/L (98-107); GLUCOSE 78 mg/dL (75-110); PHOSPHORUS 2.3 mg/dL (2.5-4.5); TOTAL PROTEIN 6.1 g/dL (6.3-8.2)
[2020-07-11 12:46] LABS: INTERNATIONAL RATION (INR) 1.26
[2020-07-11 12:47] LABS: PARTIAL THROMBOPLASTIN TIME 40.4 SEC (23.5-35.8)
[2020-07-11 12:51] LABS: ABSOLUTE LYMPHOCYTES# (MANUAL) 0.2 10^3/uL (0.5-4.7); ABSOLUTE MONOCYTES # (MANUAL) 0.7 10^3/uL (0.1-1.4); BASOPHILS % (MANUAL) 0 % (0-2); EOSINOPHILS % (MANUAL) 0 % (0-6); LYMPHOCYTES % (MANUAL) 1 % (13-45); MONOCYTES % (MANUAL) 3 % (3-13); SEGMENTED NEUTROPHILS % (MAN) 96 % (42-78); TOTAL CELLS COUNTED 100
[2020-07-11 12:55] LABS: OVALOCYTES 1+; POIKILOCYTOSIS 1+
[2020-07-11 12:56] LABS: BURR CELLS SLIGHT; PLATELET COMMENT ADEQUATE; POLYCHROMASIA SLIGHT; TEAR DROP CELLS SLIGHT
[2020-07-11 13:02] LABS: ANION GAP 3 (5-19)
[2020-07-11 13:04] LABS: ERYTHROCYTE SEDIMENTATION RATE 60 mm/hr (0-20)
[2020-07-11] MEDS: POTASSI CL 20 MEQ/50 ML RIDER 20 MEQ/50 ML RTUPB IV SCH ×3 (16:46→22:03)
--- NOTE | 2020-07-11 19:37 | PDOC PROGRESS REPORT ---
Subjective Date:: 07/11/20 Subjective:: NAEO. He continues to refuse all medical care and testing. He had a large BM today. He repeatedly asked me for morphine during our visit. Reason For Visit: MUCOUS PLUGGING, ACUTE HYPOXIC RESPIRATORY FAILURE Physical Exam Vital Signs: Temp Pulse Resp BP Pulse Ox 98.0 F 111 H 20 147/97 H 100 07/11/20 10:00 07/11/20 08:10 07/11/20 08:10 07/10/20 16:05 07/11/20 16:37 Intake & Output 07/10/20 07/11/20 07/12/20 06:59 06:59 06:59 Intake Total 2150 784 145 Output Total 1200 900 Balance 950 -116 145 Weight 81.4 kg 81.1 kg General appearance: PRESENT: no acute distress Eye exam: ABSENT: scleral icterus Mouth exam: PRESENT: dry mucosa Teeth exam: PRESENT: poor dentation Throat exam: ABSENT: post pharyngeal erythema Neck exam: ABSENT: JVD Respiratory exam: PRESENT: rales, tachypnea Cardiovascular exam: PRESENT: tachycardia GI/Abdominal exam: PRESENT: normal bowel sounds, soft. ABSENT: tenderness Gentrourinary exam: PRESENT: indwelling catheter Extremities exam: PRESENT: +1 edema, other - LUE edema Neurological exam: PRESENT: alert, awake, oriented to person, oriented to place, oriented to time, oriented to situation Psychiatric exam: PRESENT: flat affect Results Laboratory Results: 07/11/20 11:30 07/11/20 11:30 07/11/20 07/11/20 07/11/20 11:30 11:30 11:30 WBC 22.9 H RBC 3.01 L Hgb 8.5 L Hct 25.7 L MCV 85 MCH 28.1 MCHC 33.0 RDW 17.2 H Plt Count 317 Seg Neutrophils % Not Reportable Sodium 145.0 Potassium 3.0 L* Chloride 112 H Carbon Dioxide 30 Anion Gap 3 L BUN 17 Creatinine 0.81 Est GFR ( Amer) > 60 Glucose 78 Calcium 7.5 L Phosphorus 2.3 L Magnesium 1.8 Total Bilirubin 0.4 AST 11 L Alkaline Phosphatase 113 C-Reactive Protein 54.1 H Total Protein 6.1 L Albumin 1.9 L Blood Type A POSITIVE Antibody Screen NEGATIVE 04/20/20 04/23/20 04/23/20 09:00 01:55 01:55 Creatine Kinase < 20 L CK-MB (CK-2) 2.20 Troponin I < 0.012 0.082 NT-Pro-B Natriuret Pep 32159 H 04/23/20 04/23/20 04/23/20 05:58 08:22 14:50 Creatine Kinase < 20 L < 20 L CK-MB (CK-2) 2.24 Troponin I 0.066 NT-Pro-B Natriuret Pep 04/23/20 06/09/20 07/07/20 14:50 05:20 04:03 Creatine Kinase < 20 L CK-MB (CK-2) 2.09 Troponin I 0.057 NT-Pro-B Natriuret Pep 15442 H 07/07/20 07/10/20 04:03 03:45 Creatine Kinase CK-MB (CK-2) 2.46 Troponin I < 0.012 < 0.012 NT-Pro-B Natriuret Pep Impressions: PICC Line Insertion 05/07/20 00:00 IMPRESSION: SUCCESSFUL PLACEMENT OF A 5 FR DUAL LUMEN 47 CM PICC IN THE LEFT BRACHIOCEPHALIC VEIN. Modified Barium Swallow 06/03/20 00:00 IMPRESSION: LARYNGEAL PENETRATION AND ASPIRATION ABOVE. HE WAS PLEASE SEE SPEECH PATHOLOGIST REPORT FOR OTHER FINDINGS AND RECOMMENDATIONS. Thoracentesis Ultrasound 06/08/20 14:12 IMPRESSION: SUCCESSFUL THORACENTESIS USING ULTRASOUND GUIDANCE. Chest CT 06/15/20 00:00 IMPRESSION: Moderate bilateral pleural effusions with bilateral multifocal pneumonia. Mediastinal lymphadenopathy is probably reactive. KUB X-Ray 07/06/20 00:00 IMPRESSION: PROMINENT STOOL IN THE RECTUM. NO RADIOGRAPHIC EVIDENCE FOR ACUTE ABDOMINAL DISEASE. Chest X-Ray 07/07/20 00:00 IMPRESSION: Increased airspace opacities in both lung bases. Assessment and Plan - Diagnosis (1) Acute on chronic respiratory failure with hypoxia and hypercapnia Is this a current diagnosis for this admission?: Yes (2) Bacteremia due to Enterococcus Is this a current diagnosis for this admission?: Yes (3) Bilateral pneumonia Qualifiers: Pneumonia type: aspiration pneumonia Lung location: lower lobe of lung Is this a current diagnosis for this admission?: Yes (4) Candiduria Is this a current diagnosis for this admission?: Yes (5) Hyperglycemia due to type 2 diabetes mellitus Qualifiers: Diabetes mellitus lobsterman insulin use: with senior care use Qualified Co de(s): E11.65 - Type 2 diabetes mellitus with hyperglycemia; Z79.4 - residential (current) use of insulin Is this a current diagnosis for this admission?: Yes (6) Leukocytosis Qualifiers: Leukocytosis type: unspecified Qualified Code(s): D72.829 - Elevated white blood cell count, unspecified Is this a current diagnosis for this admission?: Yes (7) Malnutrition Qualifiers: Malnutrition type: protein-calorie malnutrition Protein-calorie malnutrition severity: severe Qualified Code(s): E43 - Unspecified severe protein-calorie malnutrition Is this a current diagnosis for this admission?: Yes (8) Medical non-compliance Is this a current diagnosis for this admission?: Yes (9) Sepsis associated hypotension Is this a current diagnosis for this admission?: Yes (10) Tracheostomy in place Is this a current diagnosis for this admission?: Yes (11) Critical illness myopathy Is this a current diagnosis for this admission?: Yes (12) HCAP (healthcare-associated pneumonia) Is this a current diagnosis for this admission?: Yes (13) MSSA bacteremia Is this a current diagnosis for this admission?: Yes - Plan Summary Summary: Patient's continual refusal of vital studies, labs, imaging, and meds as well as pre-occupation with narcotic pain medications make it impossible to care for him adequately and may ultimately lead to his demise. This sentiment has been expressed from multiple previous providers. He refuses to allow us to try to wean him to a trach collar. He is on meropenem, which should cover both organisms in his blood, which likely came from his respiratory tract. His urinary tract turn positive for the Enterobacter that is in his blood now. He has also grown this organism out of his sputum. He has repeatedly refused TTE an d other imaging studies. He has LUE swelling and refuses to allow a duplex US to rule out DVT. After much discussion and begging on my part today, he allowed labs and BCx to be drawn today, but only if he could get a dose of morphine in exchange - I allowed this so that we could obtain this vital information, but this is not a sustainable plan of care. He has capacity and understands that his decisions may result in debility or , and wants to remain a full code. - Time Time Spent with patient: 35 or more minutes Anticipated Discharge Disposition: Tertiary Anticipated Discharge Timeframe: unclear
[2020-07-12] MEDS: DIPHENHYDRAMINE HCL 50 MG/ML VIAL IV PRN ×3 (00:52→17:24)
[2020-07-12] MEDS: HYDROXYZINE HCL INJ 50 MG/1 ML VIAL IM PRN ×3 (00:53→17:23)
[2020-07-12] MEDS: INSULIN REG, HUMAN 100 UNIT/ML 3 ML VIAL (PYX) SUBCUT SCH ×4 (01:35→19:04)
[2020-07-12] MEDS: TRAMADOL HCL 50 MG TABLET PEG PRN (02:02)
[2020-07-12] MEDS: MEROPENEM 1 GM in NORMAL SALINE 50 ML IV SCH ×3 (02:10→17:44)
[2020-07-12] MEDS: DEXTROSE 5%-NORMAL SALINE 1,000 ML IV PRN (08:39)
[2020-07-12] MEDS: ACETYLCYSTEINE 20% SOLN 800 MG/4 ML VIAL.NEB NEB SCH ×2 (08:59→21:12)
[2020-07-12] MEDS: IPRATROPIUM/ALBUTEROL 0.5-2.5 MG/3 ML AMPUL NEB PRN ×2 (08:59→21:12)
[2020-07-12] MEDS: BUSPIRONE HCL 10 MG TABLET PEG SCH ×2 (09:19→17:30)
[2020-07-12] MEDS: NA PHOS,M-B/NA PHOS,DI-BA (ADULT) 133 ML ENEMA PR SCH (09:20)
[2020-07-12] MEDS: NORMAL SALINE 10 ML SDV (SCHEDULED) IV SCH ×2 (09:20→21:45)
[2020-07-12] MEDS: AMINO AC/PROTEIN HYDR/WHEY PRO 11 GM/45 ML PKT PEG SCH ×2 (09:20→17:44)
[2020-07-12] MEDS: NORMAL SALINE 10 ML SDV (AFTER EACH USE) IV PRN (17:25)
--- NOTE | 2020-07-12 19:30 | PDOC PROGRESS REPORT ---
Subjective Date:: 07/12/20 Subjective:: Care assumed today. 07/12/20 Events of previous weeks reviewed. Since I had him last he developed enterobacter cloacae snd coagulase negative staph aureus. He also developed bowel Ileus due to morphine hence his morphine was stopped. He was started on meropenem however he has repeatedly refused repeat blood cultures and also refusing his tube feeding. And he continued to refuse life saving procedures but insists on being full code. He was seen and examined at bedside today and he is requesting if he can try ice chips. I have instructed the nurse to try and give him 1-2 ice chips and that is it. Also requesting pain meds whicb I refused to give as he is not in pain in my assessment. Reason For Visit: MUCOUS PLUGGING, ACUTE HYPOXIC RESPIRATORY FAILURE Physical Exam Vital Signs: Temp Pulse Resp BP Pulse Ox 97.7 F 102 H 18 140/85 H 98 07/12/20 10:00 07/12/20 14:00 07/12/20 08:59 07/12/20 08:02 07/12/20 16:45 Intake & Output 07/11/20 07/12/20 07/13/20 06:59 06:59 06:59 Intake Total 784 1395 50 Output Total 900 825 Balance -116 570 50 Weight 81.1 kg 81.2 kg General appearance: PRESENT: no acute distress, thin Head exam: PRESENT: atraumatic, normocephalic Eye exam: PRESENT: EOMI, PERRLA Mouth exam: PRESENT: dry mucosa Teeth exam: PRESENT: poor dentation Neck exam: PRESENT: full ROM Respiratory exam: PRESENT: rhonchi, symmetrical, unlabored Cardiovascular exam: PRESENT: RRR, +S1, +S2 Pulses: PRESENT: +2 pedal pulses bilateral GI/Abdominal exam: PRESENT: hypoactive bowel sounds, other Extremities exam: PRESENT: other - swollen left arm Neurological exam: PRESENT: alert, awake, oriented to person, oriented to place, oriented to time, oriented to situation Psychiatric exam: PRESENT: agitated Skin exam: PRESENT: normal color Results Laboratory Results: 07/11/20 11:30 07/11/20 11:30 04/20/20 04/23/20 04/23/20 09:00 01:55 01:55 Creatine Kinase < 20 L CK-MB (CK-2) 2.20 Troponin I < 0.012 0.082 NT-Pro-B Natriuret Pep [id number] H 04/23/20 04/23/20 04/23/20 05:58 08:22 14:50 Creatine Kinase < 20 L < 20 L CK-MB (CK-2) 2.24 Troponin I 0.066 NT-Pro-B Natriuret Pep 04/23/20 06/09/20 07/07/20 14:50 05:20 04:03 Creatine Kinase < 20 L CK-MB (CK-2) 2.09 Troponin I 0.057 NT-Pro-B Natriuret Pep 23544 H 07/07/20 07/10/20 04:03 03:45 Creatine Kinase CK-MB (CK-2) 2.46 Troponin I < 0.012 < 0.012 NT-Pro-B Natriuret Pep Impressions: PICC Line Insertion 05/07/20 00:00 IMPRESSION: SUCCESSFUL PLACEMENT OF A 5 FR DUAL LUMEN 47 CM PICC IN THE LEFT BRACHIOCEPHALIC VEIN. Modified Barium Swallow 06/03/20 00:00 IMPRESSION: LARYNGEAL PENETRATION AND ASPIRATION ABOVE. HE WAS PLEASE SEE SPEECH PATHOLOGIST REPORT FOR OTHER FINDINGS AND RECOMMENDATIONS. Thoracentesis Ultrasound 06/08/20 14:12 IMPRESSION: SUCCESSFUL THORACENTESIS USING ULTRASOUND GUIDANCE. Chest CT 06/15/20 00:00 IMPRESSION: Moderate bilateral pleural effusions with bilateral multifocal pneumonia. Mediastinal lymphadenopathy is probably reactive. KUB X-Ray 07/06/20 00:00 IMPRESSION: PROMINENT STOOL IN THE RECTUM. NO RADIOGRAPHIC EVIDENCE FOR ACUTE ABDOMINAL DISEASE. Chest X-Ray 07/07/20 00:00 IMPRESSION: Increased airspace opacities in both lung bases. Assessment and Plan - Diagnosis (1) Bilateral pneumonia Qualifiers: Pneumonia type: aspiration pneumonia Lung location: lower lobe of lung Is this a current diagnosis for this admission?: Yes Plan: Repeat CXR, blood culture and labs ordered today. Hopes pt agrees. Previously refused. - CT chest 06/15 notable for moderate sized pleural effusion and bilateral pneumonia - Tracheal aspirate 06/15 positive for staph aureus, sternotrophomonas, Enterobacter cloacae similar to his previous sputum cultures - Ceftriaxone started 06/16 as per sensitivity. Pt previously refused f/u studies repeatedly. Patient made aware of need for studies to monitor disease progression/appropriate treatment. He expresses understanding and refuses further labs or imaging at this time. 06/25/2020 Still with significant congestion and abnormal x-ray. It appears that he completed a course of ceftriaxone and recently had a course of Zyvox. He originally had an infection with COVID-19 and has had complications with dysphagia and aspiration during his hospitalization. He is still ventilator dependent. We will continue to monitor closely. 06/27/2020 Good secretions with ET tube suction. Lungs actually starting to sound better. 06/28/2020 Antibiotic therapy completed. The patient cannot have anything by mouth as he has high risk of aspiration. 07/01/2020 Discolored mucus from around the trach. The patient likely is colonized at this point. No sputum cultures unless there is a marked change in his condition. 07/12/20 currently being treated for bacteremia with meropenem. (2) Urinary tract infection Qualifiers: Urinary tract infection type: catheter-associated UTI Is this a current diagnosis for this admission?: Yes Plan: Chronic Varner catheter most recently changed 06/14/20 - UC 06/14 + Enterobacter cloacae. Sensitive to ceftriaxone. - 06/13 WBC 23; has refused labs since. - Remains afebrile -Ceftriaxone started 06/16 - 06/23. 06/25/2020 Antibiotic therapy completed as above 06/28/2020 Infection resolved 07/12/2020 Being treated for gram-negative bacteremia with meropenem (3) Leukocytosis Qualifiers: Leukocytosis type: unspecified Qualified Code(s): D72.829 - Elevated white blood cell count, unspecified Is this a current diagnosis for this admission?: Yes Plan: His WBC has been climbing and now is up to 33 after finally allowing us to do blood work His chest x-ray has bilateral infiltrates but on my review of image actually looks to be more improved than his most recent chest x-ray. Moreover he is not having any increased secretions. We will monitor. I am however concerned that he may be having a new/recurrent bacteremia especially as he was recently treated with 14 days of antibiotics for VRE + MSSA bacteremia but refused to allow for TTE at that time to evaluate for endocarditis and seems to have declined repeat blood cultures then. I have tried to obtain blood cultures on him today but he is now once again refusing labs. 07/08 His blood cx have come back + for GNR. I suspect more organisms may grow. Monitor. 07/12 on meropenem for gram negative bacteremia (4) Respiratory failure, [id number] Qualifiers: Respiratory failure complication: hypoxia Qualified Code(s): J96.21 - Acute and chronic respiratory failure with hypoxia Is this a current diagnosis for this admission?: Yes Plan: Improved; maintaining oxygen saturations of 98% on FiO2 75%. - Continues to require vent PRVC setting. - Has a trach and on mechanical ventilation; multiple failed weaning trials. - CXR 06/08 Interval increase in opacity overlying the right middle to lower lung zones - Now s/p thoracentesis 06/08 with ~800 ml removed. - Pleural effusion w/ WBC 367, RBC 88. - LDH 138, Albumin 0.7, Glucose 174. - Cultures no growth. - Repeat CT 06/15 chest moderate bilateral pleural effusion and multifocal pneumonia (Ceftriaxone as above) - Continue with ventilator (5) Chronic pain Qualifiers: Chronic pain type: other chronic pain Qualified Code(s): G89.29 - Other chronic pain Is this a current diagnosis for this admission?: Yes Plan: Continued difficulty with managing patient's opiate dependence, chronic pain, desire for IV route, and hypoxia. - Previous provider notes reviewed - Morphine 10 mg via PEG q4h prn as per pain management recommendations. - This was adjusted to Morphine 7.5mg q3hrs with improvement in pt treatment toward nursing. - Pain management with recommendations to not renegotiate pain medications with the patient to maintain on this current 24-hour morphine dose. Pain medications to be held if patient is not receiving tube feeds due to risk. Pain medications may be administered if pt receiving tube feeds No changes in the current treatment plan 06/27/2020 Despite fentanyl patch the patient still wants more pain medications. We will continue the patch and go back to pain medication through the PEG tube. 06/28/2020 Initiated fentanyl patch. 06/29/2020 Fentanyl patch seems to be working. Patient's request for breakthrough medication could be more related to dependence than actual pain. 06/30/2020-continue fentanyl patch. Begin decreasing breakthrough pain medications. 07/12/20 - not on any pain meds due to retained stool . (6) Anxiety about health Is this a current diagnosis for this admission?: Yes Plan: As per previous providers on case and nursing patient with frequent anxiety attacks regarding his current state of health. - Continue buspar 10 BID - Utilize vistaril 25m q8prn during acute bouts. - Advised against benzo therapy. 06/25/2020 We will revisit the topic of depression and possible use of antidepressant medication 06/29/2020 The patient admitted that he is quite anxious and likely depressed and overwhelmed. Will initiate therapy. With his current GI status a rapid oral dissolving formulation would be best. (7) Critical illness myopathy Is this a current diagnosis for this admission?: Yes Plan: With history of ICU and prolonged hospital stay - Given 3+ month hx hpspital admission would require extensive rehab - PT/OT/ST consulted - Pt continues to refuse rehab 06/25/2020 as above 06/28/2020-physical therapy did see the patient again. They feel that with a Jesse lift they can accomplish safe transition from bed to chair. At this point the patient would not be able to adequately self propel especially since he cannot detach himself from the ventilator. 06/29/2020-no therapy today. Likely training for staff with Jesse lift next week. 07/01/2020-patient continues to lose muscle mass. Difficulties with tube feeds due to constipation with nausea and vomiting. Patient has refused certain treatment options which makes it very difficult. (8) Dysphagia Qualifiers: Dysphagia type: oropharyngeal phase Qualified Code(s): R13.12 - Dysphagia, oropharyngeal phase Is this a current diagnosis for this admission?: Yes Plan: We will resume his tube feeds whenever he is agreeable. For the moment he has been declining. Patient does have PEG tube for access. (9) Bacteremia due to Enterococcus Is this a current diagnosis for this admission?: Yes Plan: Resolved - 05/07 + BC enterococcus - 05/09 BC without growth > 5 days - Completed Abx course - TTE as recommended by ID pending, pt has refused. No further intervention at this time (10) MSSA bacteremia Is this a current diagnosis for this admission?: Yes Plan: Per prior provider: Resolved, completed abx treatment - BC 05/07 + MSSA - BC 05/09 without growth > 5 days - Patient refusing repeat blood culture. - Patient refusing echocardiogram as recommended by ID. 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 Mostly refusing accuchecks and therapy (12) Acute kidney injury superimposed on chronic kidney disease Is this a current diagnosis for this admission?: Yes Plan: Resolved. - BUN/Creatinine 23/0.90 today 06/25/2020 Per last blood work GFR remains greater than 60 06/28/2020-I have ordered blood work for tomorrow. Hopefully the patient will allow phlebotomy to draw his blood. 06/29/2020-renal function now normal (13) Acute metabolic encephalopathy Is this a current diagnosis for this admission?: Yes Plan: Resolved. Primarily the result of infection but multiple other comorbidities likely contributing. Currently resolved. 06/29/2020 Encephalopathy is resolved. Possible depression with occasional agitation. (14) Debility Is this a current diagnosis for this admission?: Yes Plan: PT/OT/ST consulted though repeatedly refusing - Needs LTAC placement (15) Dependent on ventilator Is this a current diagnosis for this admission?: Yes Plan: Remains on the mechanical ventilator. Appears comfortable. Will wean fio2 further down to 30% today. Goal is to gradually attempt to wean to a trach collar if possible but he has been on the vent for quite some time now. (16) COVID-19 Is this a current diagnosis for this admission?: Yes Plan: -resolved but patient has suffered significant comorbidity from it - no indication to retest - continue vent support. Wean as tolerated - Plan Summary Summary: Patient's continual refusal of vital studies, labs, imaging, and meds as well as pre-occupation with narcotic pain medications make it impossible to care for him adequately and may ultimately lead to his demise. This sentiment has been expressed from multiple previous providers. He refuses to allow us to try to wean him to a trach collar. He is on meropenem, which should cover both organisms in his blood, which likely came from his respiratory tract. His urinary tract turn positive for the Enterobacter that is in his blood now. He has also grown this organism out of his sputum. He has repeatedly refused TTE and other imaging studies. He has LUE swelling and refuses to allow a duplex US to rule out DVT. After much discussion and begging on my part today, he allowed labs and BCx to be drawn today, but only if he could get a dose of morphine in exchange - I allowed this so that we could obtain this vital information, but this is not a sustainable plan of care. He has capacity and understands that his decisions may result in debility or , and wants to remain a full code. - Time Time Spent with patient: 15-24 minutes Medications reviewed and adjusted accordingly: Yes Anticipated Discharge Disposition: [facility] Facility Anticipated Discharge Timeframe: tbd
[2020-07-13] MEDS: INSULIN REG, HUMAN 100 UNIT/ML 3 ML VIAL (PYX) SUBCUT SCH ×4 (00:34→20:53)
[2020-07-13] MEDS: HYDROXYZINE HCL INJ 50 MG/1 ML VIAL IM PRN ×2 (01:22→15:40)
[2020-07-13] MEDS: MEROPENEM 1 GM in NORMAL SALINE 50 ML IV SCH ×3 (03:03→21:11)
[2020-07-13] MEDS ORDERED: PROMETHAZINE HCL INJ 25 MG/1 ML VIAL IM ONE (03:30)
[2020-07-13] MEDS: ACETYLCYSTEINE 20% SOLN 800 MG/4 ML VIAL.NEB NEB SCH ×2 (08:54→20:20)
[2020-07-13] MEDS: IPRATROPIUM/ALBUTEROL 0.5-2.5 MG/3 ML AMPUL NEB PRN ×2 (08:54→20:20)
--- NOTE | 2020-07-13 14:04 | RADIOLOGY REPORT (SQ) ---
EXAM DESCRIPTION: VENOUS UNILATERAL UPPER IMAGES COMPLETED DATE/TIME: 07/13/2020 1:27 pm REASON FOR STUDY: left arm swelling; rule out DVT J96.21 ACUTE AND CHRONIC RESPIRATORY FAILURE WITH HYPOXIA COMPARISON: None. TECHNIQUE: Dynamic and static ascencio scale and color images acquired of the left arm venous system. Se lected spectral images acquired with additional compression and augmentation maneuvers. Images store d on PACS. LIMITATIONS: The cephalic vein is not adequately visualized due to intervening subcutaneous edema. FINDINGS: INTERNAL JUGULAR VEIN: Normal phasicity, compression, augmentation. No visualized echogeni c material on ascencio scale. No defects on color images. Comparison opposite side normal. SUBCLAVIAN VEIN: Normal compression, augmentation. No visualized echogenic material on ascencio scale. No defects on color images. AXILLARY VEIN: Normal compression, augmentation. No visualized echogenic material on ascencio scale. No d efects on color images. BRACHIAL VEIN: Normal compression, augmentation. No visualized echogenic material on ascencio scale. No d efects on color images. BASILIC VEIN: Normal compression, augmentation. No visualized echogenic material on ascencio scale. No de fects on color images. CEPHALIC VEIN: Not adequately evaluated. OTHER: No other significant finding. IMPRESSION: Limited examination in that the cephalic vein is not adequately visualized. No evidence of left upper extremity deep venous thrombosis. TECHNICAL DOCUMENTATION: JOB ID: [id number] 2010 [employer]- All Rights Reserved Reading location - IP/workstation name: [email or web address]
[2020-07-13] MEDS: NORMAL SALINE 10 ML SDV (SCHEDULED) IV SCH ×2 (15:19→23:54)
[2020-07-13] MEDS: AMINO AC/PROTEIN HYDR/WHEY PRO 11 GM/45 ML PKT PEG SCH ×2 (15:19→20:54)
[2020-07-13] MEDS: BUSPIRONE HCL 10 MG TABLET PEG SCH ×2 (15:20→20:53)
[2020-07-13] MEDS: NA PHOS,M-B/NA PHOS,DI-BA (ADULT) 133 ML ENEMA PR SCH (15:20)
[2020-07-13] MEDS: PROMETHAZINE HCL INJ 25 MG/1 ML VIAL IV PRN (15:39)
[2020-07-13] MEDS: DIPHENHYDRAMINE HCL 50 MG/ML VIAL IV PRN (15:42)
[2020-07-13] MEDS: SCOPOLAMINE HYDROBROMIDE 1.5 MG PATCH.TD72 TD SCH (15:45)
[2020-07-13] MEDS: DEXTROSE 50%-WATER SYRINGE 12.5 GM/25 ML DOSE IV PRN (16:16)
[2020-07-13] MEDS ORDERED: DOPAMINE HCL/DEXTROSE 5%-WATER 800 MG/250 ML RTUINJ IV ONE (16:45)
[2020-07-13] MEDS ORDERED: PANTOPRAZOLE SODIUM 40 MG VIAL IV ONE ×2 (16:59→21:00)
[2020-07-13] MEDS ORDERED: NOREPINEPHRINE BITARTRATE INJ/PF 4 MG/4 ML SDV IV ONE ×2 (17:17→21:15)
[2020-07-13] MEDS: DEXTROSE 5%-WATER 250 ML with NOREPINEPHRINE BITARTRATE 4 MG IV PRN ×4 (17:20→22:17)
[2020-07-13 17:46] LABS: MEAN CORPUSCULAR HEMOGLOBIN 27.5 pg (27.0-33.4); MEAN CORPUSCULAR HGB CONC 31.2 g/dL (32.0-36.0); MEAN CORPUSCULAR VOLUME 88 fl (80-97); PLATELET COUNT 175 10^3/uL (150-450); RED BLOOD COUNT 1.02 10^6/uL (4.35-5.55); RED CELL DISTRIBUTION WIDTH 17.2 % (11.5-14.0)
[2020-07-13 17:59] LABS: ALBUMIN 1.2 g/dL (3.5-5.0); ALKALINE PHOSPHATASE 60 U/L (38-126); ANION GAP 6 (5-19); ASPARTATE AMINO TRANSFERASE 14 U/L (17-59); BILIRUBIN,DIRECT 0.1 mg/dL (0.0-0.4); BILIRUBIN,TOTAL 0.3 mg/dL (0.2-1.3); BLOOD UREA NITROGEN 25 mg/dL (7-20); CARBON DIOXIDE 22 mmol/L (22-30); CHLORIDE 117 mmol/L (98-107); GLUCOSE 93 mg/dL (75-110); POTASSIUM 3.9 mmol/L (3.6-5.0); TOTAL PROTEIN 3.6 g/dL (6.3-8.2)
--- NOTE | 2020-07-13 17:59 | PDOC PROGRESS REPORT ---
Subjective Date:: 07/13/20 Subjective:: Care assumed today. 07/12/20 Events of previous weeks reviewed. Since I had him last he developed enterobacter cloacae snd coagulase negative staph aureus. He also developed bowel Ileus due to morphine hence his morphine was stopped. He was started on meropenem however he has repeatedly refused repeat blood cultures and also refusing his tube feeding. And he continued to refuse life saving procedures but insists on being full code. He was seen and examined at bedside today and he is requesting if he can try ice chips. I have instructed the nurse to try and give him 1-2 ice chips and that is it. Also requesting pain meds which I refused to give as he is not in pain in my assessment. 07/13/20 Patient was seen and examined at bedside. Patient was awake and alert until 4 pm when his BP dropped to 60/40, HR 142 and the patient became unresponsive. He was also noted to be pale. He vomited blood and it was coming out of his trach tube as well. He was given 2 u PRBC and was started on both dopamine and levophed. ICU was called and the patient was eventually transferred to ICU. Reason For Visit: MUCOUS PLUGGING, ACUTE HYPOXIC RESPIRATORY FAILURE Physical Exam Vital Signs: Temp Pulse Resp BP Pulse Ox 97.7 F 90 15 136/65 H 100 07/13/20 09:04 07/13/20 08:54 07/13/20 08:54 07/13/20 08:08 07/13/20 12:30 Intake & Output 07/12/20 07/13/20 07/14/20 06:59 06:59 06:59 Intake Total 1395 718 0 Output Total 825 875 200 Balance 570 -157 -200 Weight 81.2 kg 83.5 kg 83.5 kg Results Laboratory Results: 07/11/20 11:30 Blood Type A POSITIVE Antibody Screen NEGATIVE 04/20/20 04/23/20 04/23/20 09:00 01:55 01:55 Creatine Kinase < 20 L CK-MB (CK-2) 2.20 Troponin I < 0.012 0.082 NT-Pro-B Natriuret Pep 62050 H 04/23/20 04/23/20 04/23/20 05:58 08:22 14:50 Creatine Kinase < 20 L < 20 L CK-MB (CK-2) 2.24 Troponin I 0.066 NT-Pro-B Natriuret Pep 04/23/20 06/09/20 07/07/20 14:50 05:20 04:03 Creatine Kinase < 20 L CK-MB (CK-2) 2.09 Troponin I 0.057 NT-Pro-B Natriuret Pep 14823 H 07/07/20 07/10/20 04:03 03:45 Creatine Kinase CK-MB (CK-2) 2.46 Troponin I < 0.012 < 0.012 NT-Pro-B Natriuret Pep Impressions: PICC Line Insertion 05/07/20 00:00 IMPRESSION: SUCCESSFUL PLACEMENT OF A 5 FR DUAL LUMEN 47 CM PICC IN THE LEFT BRACHIOCEPHALIC VEIN. Modified Barium Swallow 06/03/20 00:00 IMPRESSION: LARYNGEAL PENETRATION AND ASPIRATION ABOVE. HE WAS PLEASE SEE SPEECH PATHOLOGIST REPORT FOR OTHER FINDINGS AND RECOMMENDATIONS. Thoracentesis Ultrasound 06/08/20 14:12 IMPRESSION: SUCCESSFUL THORACENTESIS USING ULTRASOUND GUIDANCE. Chest CT 06/15/20 00:00 IMPRESSION: Moderate bilateral pleural effusions with bilateral multifocal pneumonia. Mediastinal lymphadenopathy is probably reactive. KUB X-Ray 07/06/20 00:00 IMPRESSION: PROMINENT STOOL IN THE RECTUM. NO RADIOGRAPHIC EVIDENCE FOR ACUTE ABDOMINAL DISEASE. Chest X-Ray 07/07/20 00:00 IMPRESSION: Increased airspace opacities in both lung bases. Venous Doppler Study 07/13/20 08:17 IMPRESSION: Limited examination in that the cephalic vein is not adequately visualized. No evidence of left upper extremity deep venous thrombosis. Assessment and Plan - Diagnosis (1) Bilateral pneumonia Qualifiers: Pneumonia type: aspiration pneumonia Lung location: lower lobe of lung Is this a current diagnosis for this admission?: Yes (2) Urinary tract infection Qualifiers: Urinary tract infection type: catheter-associated UTI Is this a current diagnosis for this admission?: Yes (3) Leukocytosis Qualifiers: Leukocytosis type: unspecified Qualified Code(s): D72.829 - Elevated white blood cell count, unspecified Is this a current diagnosis for this admission?: Yes (4) Respiratory failure, [id number] Qualifiers: Respiratory failure complication: hypoxia Qualified Code(s): J96.21 - Acute and chronic respiratory failure with hypoxia Is this a current diagnosis for this admission?: Yes (5) Chronic pain Qualifiers: Chronic pain type: other chronic pain Qualified Code(s): G89.29 - Other chronic pain Is this a current diagnosis for this admission?: Yes (6) Anxiety about health Is this a current diagnosis for this admission?: Yes (7) Critical illness myopathy Is this a current diagnosis for this admission?: Yes (8) Dysphagia Qualifiers: Dysphagia type: oropharyngeal phase Qualified Code(s): R13.12 - Dysphagia, oropharyngeal phase Is this a current diagnosis for this admission?: Yes (9) Bacteremia due to Enterococcus Is this a current diagnosis for this admission?: Yes (10) MSSA bacteremia Is this a current diagnosis for this admission?: Yes (11) Hyperglycemia due to type 2 diabetes mellitus Qualifiers: Diabetes mellitus extermination inspector insulin use: with extermination inspector use Qualified Code(s): E11.65 - Type 2 diabetes mellitus with hyperglycemia; Z79.4 - extermination inspector (current) use of insulin Is this a current diagnosis for this admission?: Yes (12) Acute kidney injury superimposed on chronic kidney disease Is this a current diagnosis for this admission?: Yes (13) Acute metabolic encephalopathy Is this a current diagnosis for this admission?: Yes (14) Debility Is this a current diagnosis for this admission?: Yes (15) Dependent on ventilator Is this a current diagnosis for this admission?: Yes (16) COVID-19 Is this a current diagnosis for this admission?: Yes - Plan Summary Summary: Patient's continual refusal of vital studies, labs, imaging, and meds as well as pre-occupation with narcotic pain medications make it impossible to care for him adequately and may ultimately lead to his demise. This sentiment has been expressed from multiple previous providers. He refuses to allow us to try to wean him to a trach collar. He is on meropenem, which should cover both organisms in his blood, which likely came from his respiratory tract. His urinary tract turn positive for the Enterobacter that is in his blood now. He has also grown this organism out of his sputum. He has repeatedly refused TTE and other imaging studies. He has LUE swelling and refuses to allow a duplex US to rule out DVT. After much discussion and begging on my part today, he allowed labs and BCx to be drawn today, but only if he could get a dose of morphine in exchange - I allowed this so that we could obtain this vital information, but this is not a sustainable plan of care. He has capacity and understands that his decisions may result in debility or , and wants to remain a full code.
[2020-07-13 18:06] LABS: CALCIUM 6.1 mg/dL (8.4-10.2)
[2020-07-13 18:13] LABS: HEMOGLOBIN 2.8 g/dL (13.5-17.0)
--- NOTE | 2020-07-13 18:13 | PDOC PROGRESS REPORT ---
Subjective Date:: 07/13/20 Subjective:: Care assumed today. 07/12/20 Events of previous weeks reviewed. Since I had him last he developed enterobacter cloacae snd coagulase negative staph aureus. He also developed bowel Ileus due to morphine hence his morphine was stopped. He was started on meropenem however he has repeatedly refused repeat blood cultures and also refusing his tube feeding. And he continued to refuse life saving procedures but insists on being full code. He was seen and examined at bedside today and he is requesting if he can try ice chips. I have instructed the nurse to try and give him 1-2 ice chips and that is it. Also requesting pain meds which I refused to give as he is not in pain in my assessment. 07/13/20 Patient was seen and examined at bedside. Patient was awake and alert until 4 pm when his BP dropped to 60/40, HR 142 and the patient became unresponsive. He was also noted to be pale. He vomited blood and it was coming out of his trach tube as well. He was given 2 u PRBC and was started on both dopamine and levophed. ICU was called and the patient was eventually transferred to ICU. Reason For Visit: MUCOUS PLUGGING, ACUTE HYPOXIC RESPIRATORY FAILURE Physical Exam Vital Signs: Temp Pulse Resp BP Pulse Ox 97.7 F 90 15 136/65 H 100 07/13/20 09:04 07/13/20 08:54 07/13/20 08:54 07/13/20 08:08 07/13/20 12:30 Intake & Output 07/12/20 07/13/20 07/14/20 06:59 06:59 06:59 Intake Total 1395 718 0 Output Total 825 875 200 Balance 570 -157 -200 Weight 81.2 kg 83.5 kg 83.5 kg General appearance: PRESENT: thin - severe distress, other Head exam: PRESENT: atraumatic, normocephalic Eye exam: PRESENT: EOMI, PERRLA Throat exam: PRESENT: other - tracheostomy Respiratory exam: PRESENT: clear to auscultation yousif, symmetrical, other - on chronic vent Cardiovascular exam: PRESENT: +S1, +S2, tachycardia GI/Abdominal exam: PRESENT: other - +ve hematemesis Musculoskeletal exam: PRESENT: other - atrophic muscles Neurological exam: PRESENT: altered Skin exam: PRESENT: pallor Results Laboratory Results: 07/11/20 11:30 Blood Type A POSITIVE Antibody Screen NEGATIVE 04/20/20 04/23/20 04/23/20 09:00 01:55 01:55 Creatine Kinase < 20 L CK-MB (CK-2) 2.20 Troponin I < 0.012 0.082 NT-Pro-B Natriuret Pep 49910 H 04/23/20 04/23/20 04/23/20 05:58 08:22 14:50 Creatine Kinase < 20 L < 20 L CK-MB (CK-2) 2.24 Troponin I 0.066 NT-Pro-B Natriuret Pep 04/23/20 06/09/20 07/07/20 14:50 05:20 04:03 Creatine Kinase < 20 L CK-MB (CK-2) 2.09 Troponin I 0.057 NT-Pro-B Natriuret Pep 22152 H 07/07/20 07/10/20 04:03 03:45 Creatine Kinase CK-MB (CK-2) 2.46 Troponin I < 0.012 < 0.012 NT-Pro-B Natriuret Pep Impressions: PICC Line Insertion 05/07/20 00:00 IMPRESSION: SUCCESSFUL PLACEMENT OF A 5 FR DUAL LUMEN 47 CM PICC IN THE LEFT BRACHIOCEPHALIC VEIN. Modified Barium Swallow 06/03/20 00:00 IMPRESSION: LARYNGEAL PENETRATION AND ASPIRATION ABOVE. HE WAS PLEASE SEE SPEECH PATHOLOGIST REPORT FOR OTHER FINDINGS AND RECOMMENDATIONS. Thoracentesis Ultrasound 06/08/20 14:12 IMPRESSION: SUCCESSFUL THORACENTESIS USING ULTRASOUND GUIDANCE. Chest CT 06/15/20 00:00 IMPRESSION: Moderate bilateral pleural effusions with bilateral multifocal pneumonia. Mediastinal lymphadenopathy is probably reactive. KUB X-Ray 07/06/20 00:00 IMPRESSION: PROMINENT STOOL IN THE RECTUM. NO RADIOGRAPHIC EVIDENCE FOR ACUTE ABDOMINAL DISEASE. Chest X-Ray 07/07/20 00:00 IMPRESSION: Increased airspace opacities in both lung bases. Venous Doppler Study 07/13/20 08:17 IMPRESSION: Limited examination in that the cephalic vein is not adequately visualized. No evidence of left upper extremity deep venous thrombosis. Assessment and Plan - Diagnosis (1) Hematemesis Qualifiers: Nausea presence: with nausea Qualified Code(s): K92.0 - Hematemesis Is this a current diagnosis for this admission?: Yes Plan: - patient became hypotensive and blood came out of his mouth and ET tube - patient has been refusing tube feeding for 1 week - BP 50/30, HR 142 - ddx: Upper GI bleed, eroding fistula - 2 u PRBC ordered - on Dopamine and levophed - ICU transfer 07/13/20 (2) Bilateral pneumonia Qualifiers: Pneumonia type: aspiration pneumonia Lung location: lower lobe of lung Is this a current diagnosis for this admission?: Yes Plan: Repeat CXR, blood culture and labs ordered today. Hopes pt agrees. Previously refused. - CT chest 06/15 notable for moderate sized pleural effusion and bilateral pneumonia - Tracheal aspirate 06/15 positive for staph aureus, sternotrophomonas, Enterobacter cloacae similar to his previous sputum cultures - Ceftriaxone started 06/16 as per sensitivity. Pt previously refused f/u studies repeatedly. Patient made aware of need for studies to monitor disease progression/appropriate treatment. He expresses understanding and refuses further labs or imaging at this time. 06/25/2020 Still with significant congestion and abnormal x-ray. It appears that he completed a course of ceftriaxone and recently had a course of Zyvox. He originally had an infection with COVID-19 and has had complications with dysphagia and aspiration during his hospitalization. He is still ventilator dependent. We will continue to monitor closely. 06/27/2020 Good secretions with ET tube suction. Lungs actually starting to sound better. 06/28/2020 Antibiotic therapy completed. The patient cannot have anything by mouth as he has high risk of aspiration. 07/01/2020 Discolored mucus from around the trach. The patient likely is colonized at this point. No sputum cultures unless there is a marked change in his condition. 07/12/20 currently being treated for bacteremia with meropenem. 07/13/20 transferred to ICU due to hypotension and hematemesis (3) Urinary tract infection Qualifiers: Urinary tract infection type: catheter-associated UTI Is this a current diagnosis for this admission?: Yes Plan: Chronic Varner catheter most recently changed 06/14/20 - UC 06/14 + Enterobacter cloacae. Sensitive to ceftriaxone. - 06/13 WBC 23; has refused labs since. - Remains afebrile -Ceftriaxone started 06/16 - 06/23. 06/25/2020 Antibiotic therapy completed as above 06/28/2020 Infection resolved 07/12/2020 Being treated for gram-negative bacteremia with meropenem (4) Leukocytosis Qualifiers: Leukocytosis type: unspecified Qualified Code(s): D72.829 - Elevated white blood cell count, unspecified Is this a current diagnosis for this admission?: Yes Plan: His WBC has been climbing and now is up to 33 after finally allowing us to do blood work His chest x-ray has bilateral infiltrates but on my review of image actually looks to be more improved than his most recent chest x-ray. Moreover he is not having any increased secretions. We will monitor. I am however concerned that he may be having a new/recurrent bacteremia especially as he was recently treated with 14 days of antibiotics for VRE + MSSA bacteremia but refused to allow for TTE at that time to evaluate for endocarditis and seems to have declined repeat blood cultures then. I have tried to obtain blood cultures on him today but he is now once again refusing labs. 07/08 His blood cx have come back + for GNR. I suspect more organisms may grow. Monitor. 07/12 on meropenem for gram negative bacteremia (5) Respiratory failure, [id number] Qualifiers: Respiratory failure complication: hypoxia Qualified Code(s): J96.21 - Acute and chronic respiratory failure with hypoxia Is this a current diagnosis for this admission?: Yes Plan: Improved; maintaining oxygen saturations of 98% on FiO2 75%. - Continues to require vent PRVC setting. - Has a trach and on mechanical ventilation; multiple failed weaning trials. - CXR 06/08 Interval increase in opacity overlying the right middle to lower lung zones - Now s/p thoracentesis 06/08 with ~800 ml removed. - Pleural effusion w/ WBC 367, RBC 88. - LDH 138, Albumin 0.7, Glucose 174. - Cultures no growth. - Repeat CT 06/15 chest moderate bilateral pleural effusion and multifocal pneumonia (Ceftriaxone as above) - Continue with ventilator (6) Chronic pain Qualifiers: Chronic pain type: other chronic pain Qualified Code(s): G89.29 - Other chronic pain Is this a current diagnosis for this admission?: Yes Plan: Continued difficulty with managing patient's opiate dependence, chronic pain, desire for IV route, and hypoxia. - Previous provider notes reviewed - Morphine 10 mg via PEG q4h prn as per pain management recommendations. - This was adjusted to Morphine 7.5mg q3hrs with improvement in pt treatment toward nursing. - Pain management with recommendations to not renegotiate pain medications with the patient to maintain on this current 24-hour morphine dose. Pain medications to be held if patient is not receiving tube feeds due to risk. Pain medications may be administered if pt receiving tube feeds No changes in the current treatment plan 06/27/2020 Despite fentanyl patch the patient still wants more pain medications. We will continue the patch and go back to pain medication through the PEG tube. 06/28/2020 Initiated fentanyl patch. 06/29/2020 Fentanyl patch seems to be working. Patient's request for breakthrough medication could be more related to dependence than actual pain. 06/30/2020-continue fentanyl patch. Begin decreasing breakthrough pain medications. 07/12/20 - not on any pain meds due to retained stool . (7) Anxiety about health Is this a current diagnosis for this admission?: Yes Plan: As per previous providers on case and nursing patient with frequent anxiety attacks regarding his current state of health. - Continue buspar 10 BID - Utilize vistaril 25m q8prn during acute bouts. - Advised against benzo therapy. 06/25/2020 We will revisit the topic of depression and possible use of antidepressant medication 06/29/2020 The patient admitted that he is quite anxious and likely depressed and overwhelmed. Will initiate therapy. With his current GI status a rapid oral dissolving formulation would be best. (8) Critical illness myopathy Is this a current diagnosis for this admission?: Yes Plan: With history of ICU and prolonged hospital stay - Given 3+ month hx hpspital admission would require extensive rehab - PT/OT/ST consulted - Pt continues to refuse rehab 06/25/2020 as above 06/28/2020-physical therapy did see the patient again. They feel that with a Jesse lift they can accomplish safe transition from bed to chair. At this point the patient would not be able to adequately self propel especially since he cannot detach himself from the ventilator. 06/29/2020-no therapy today. Likely training for staff with Jesse lift next week. 07/01/2020-patient continues to lose muscle mass. Difficulties with tube feeds due to constipation with nausea and vomiting. Patient has refused certain treatment options which makes it very difficult. (9) Dysphagia Qualifiers: Dysphagia type: oropharyngeal phase Qualified Code(s): R13.12 - Dysphagia, oropharyngeal phase Is this a current diagnosis for this admission?: Yes Plan: We will resume his tube feeds whenever he is agreeable. For the moment he has b een declining. Patient does have PEG tube for access. (10) Bacteremia due to Enterococcus Is this a current diagnosis for this admission?: Yes Plan: Resolved - 05/07 + BC enterococcus - 05/09 BC without growth > 5 days - Completed Abx course - TTE as recommended by ID pending, pt has refused. No further intervention at this time (11) MSSA bacteremia Is this a current diagnosis for this admission?: Yes Plan: Per prior provider: Resolved, completed abx treatment - BC 05/07 + MSSA - BC 05/09 without growth > 5 days - Patient refusing repeat blood culture. - Patient refusing echocardiogram as recommended by ID. (12) Hyperglycemia due to type 2 diabetes mellitus Qualifiers: Diabetes mellitus halfway insulin use: with termite inspector use Qualified Code(s): E11.65 - Type 2 diabetes mellitus with hyperglycemia; Z79.4 - terminal block assembler (current) use of insulin Is this a current diagnosis for this admission?: Yes Plan: mild hyperglcemia today. Mostly refusing accuchecks and therapy (13) Acute kidney injury superimposed on chronic kidney disease Is this a current diagnosis for this admission?: Yes Plan: Resolved. - BUN/Creatinine 23/0.90 today 06/25/2020 Per last blood work GFR remains greater than 60 06/28/2020-I have ordered blood work for tomorrow. Hopefully the patient will allow phlebotomy to draw his blood. 06/29/2020-renal function now normal (14) Acute metabolic encephalopathy Is this a current diagnosis for this admission?: Yes Plan: Resolved. Primarily the result of infection but multiple other comorbidities likely contributing. Currently resolved. 06/29/2020 Encephalopathy is resolved. Possible depression with occasional agitation. (15) Debility Is this a current diagnosis for this admission?: Yes Plan: PT/OT/ST consulted though repeatedly refusing - Needs LTAC placement (16) Dependent on ventilator Is this a current diagnosis for this admission?: Yes Plan: Remains on the mechanical ventilator. Appears comfortable. Will wean fio2 further down to 30% today. Goal is to gradually attempt to wean to a trach collar if possible but he has been on the vent for quite some time now. (17) COVID-19 Is this a current diagnosis for this admission?: Yes Plan: -resolved but patient has suffered significant comorbidity from it - no indication to retest - continue vent support. Wean as tolerated - Plan Summary Summary: Patient's continual refusal of vital studies, labs, imaging, and meds as well as pre-occupation with narcotic pain medications make it impossible to care for him adequately and may ultimately lead to his demise. This sentiment has been expressed from multiple previous providers. He refuses to allow us to try to wean him to a trach collar. He is on meropenem, which should cover both organisms in his blood, which likely came from his respiratory tract. His urinary tract turn positive for the Enterobacter that is in his blood now. He has also grown this organism out of his sputum. He has repeatedly refused TTE and other imaging studies. He has LUE swelling and refuses to allow a duplex US to rule out DVT. After much discussion and begging on my part today, he allowed labs and BCx to be drawn today, but only if he could get a dose of morphine in exchange - I allowed this so that we could obtain this vital information, but this is not a sustainable plan of care. He has capacity and understands that his decisions may result in debility or , and wants to remain a full code. - Time Anticipated Discharge Disposition: [facility] Anticipated Discharge Timeframe: tbd
[2020-07-13 18:37] LABS: ABSOLUTE LYMPHOCYTES# (MANUAL) 0.6 10^3/uL (0.5-4.7); ABSOLUTE MONOCYTES # (MANUAL) 0.2 10^3/uL (0.1-1.4); BASOPHILS % (MANUAL) 0 % (0-2); EOSINOPHILS % (MANUAL) 2 % (0-6); LYMPHOCYTES % (MANUAL) 4 % (13-45); MONOCYTES % (MANUAL) 1 % (3-13); SEGMENTED NEUTROPHILS % (MAN) 93 % (42-78); TOTAL CELLS COUNTED 100
[2020-07-13 18:38] LABS: ANISOCYTOSIS 1+
[2020-07-13 18:39] LABS: PLATELET COMMENT ADEQUATE
[2020-07-13] MEDS ORDERED: DOPAMINE HCL 800 MG/D5W 250 ML IV ONE (20:45)
--- NOTE | 2020-07-13 21:46 | CRITICAL CARE ADMISSION REPORT ---
HPI Date:: 07/13/20 Time:: 18:00 Reason for ICU Reason:: Upper GI bleed. Admission Date/Time & PCP: Admission Date/Time: 04/20/20 13:42 Primary Care Provider: GOLD ELENA HPI: Mr. Sena is a 60-year-old gentleman who [facility]. He was initially here in April with Covid related pneumonia and had a protracted hospital course. He was discharged briefly with a tracheostomy tube in place but was readmitted quickly thereafter for mucous plugging. I was called urgently to the patient's bedside today to consult for critical care admission. Patient was bleeding profusely out from around his tracheostomy tube as well as in his mouth. He was pale and severely hypotensive and unresponsive. Dopamine was running at the time of my arrival. We started an emergent blood transfusion with 2 units PRBC, bolused IV fluids and started Levophed. Patient's consciousness returned as his blood pressure improved. He was transferred to the intensive care unit for further stabilization. History obtained from:: Medical records, attending medical physician. - Diagnosis/Plan (1) Acute on chronic respiratory failure with hypoxia and hypercapnia Is this a current diagnosis for this admission?: Yes Plan: Patient placed on ventilator via tracheostomy. Obtain ABG Adjust vent settings according to ABG results. Patient's oxygen carrying capacity may be considerably low given his acute drop in hemoglobin despite a high SPO2. (2) Acute blood loss anemia Is this a current diagnosis for this admission?: Yes Plan: 2 units PRBC transfused. We will follow-up CBC following blood transfusion Performing in ice water flush via G-tube. If bleeding persists, surgery agreed to be involved with this case. Likely source of bleeding is upper GI/esophageal. Past Medical History Cardiac Medical History: Reports: Congestive Heart Failure, Hypertension Denies: Coronary Artery Disease, Hyperlipidema Pulmonary Medical History: Reports: Intubation, Respiratory Failure Denies: Asthma, Chronic Obstructive Pulmonary Disease (COPD) Neurological Medical History: Denies: Seizures Endocrine Medical History: Reports: Diabetes Mellitus Type 2 Renal/ Medical History: Reports: End Stage Renal Disease - Recently diagnosed with stage IV CKD GI Medical History: Denies: Cirrhosis, Hepatitis Musculoskeltal Medical History: Reports: Arthritis Denies: Gout Skin Medical History: Denies: Eczema, Psoriasis Psychiatric Medical History: Reports: Depression Hematology: Reports: Anemia - Recently diagnosed Denies: Bleeding Tendencies Past Surgical History Past Surgical History: Reports: Orthopedic Surgery - Multiple surgeries, Other - Tracheostomy, 03/18/2020 Social/Family History - Social History Lives with: [facility] Smoking Status: Unknown if Ever Smoked Frequency of Alcohol Use: None Hx Recreational Drug Use: No Drugs: None Hx Prescription Drug Abuse: No - Medication/Allergies Home Medications: Furosemide [Lasix 20 mg Tablet] 20 mg PO DAILY tablet 04/19/20 Insulin Glargine,Hum.rec.anlog [Lantus Insulin 100 Unit/1 ml 10 ml] 5 unit SUBCUT DAILY unit 04/19/20 Insulin Lispro [Humalog Insulin (Lispro) 100 unit/mL] 0 - 12 unit SUBCUT ACHS unit 04/19/20 Lactulose [Cephulac Syrup 20 gm/30 ml Udcup] 10 gm PO Q12 udc 04/19/20 Lisinopril [Prinivil 5 mg Tablet] 2.5 mg PO Q12 tablet 04/19/20 Metoprolol Succinate [Toprol Xl 25 mg Tab.sr] 25 mg PO DAILY tab.sr.24h 04/19/20 Oxycodone HCl/Acetaminophen [Percocet 5-325 mg Tablet] 1 tab PO Q4HP PRN #14 tablet 04/19/20 Scopolamine Hydrobromide [Transderm-Scop 1.5 mg Patch] 1 each TD Q3DAYS patch.[id number] 04/19/20 Sennosides/Docusate 8.6-50 mg [Senna Plus Tablet] 2 each PO DAILY tablet 04/19/20 Thiamine HCl [Thiamine 100 mg Tablet] 100 mg PO DAILY tablet 04/19/20 Trazodone HCl [Desyrel 50 mg Tablet] 100 mg NG HSP PRN tablet 04/19/20 Allergies/Adverse Reactions: iodine Allergy (Verified 01/23/20 23:19) shellfish derived Allergy (Verified 01/23/20 23:19) Sulfa (Sulfonamide Antibiotics) Allergy (Verified 01/23/20 23:19) Review of Systems ROS unobtainable: Due to endotracheal tube, Due to mental status Physical Exam Vital Signs: Temp Pulse Resp BP Pulse Ox 97.8 F 155 H 17 123/99 H 100 07/13/20 21:25 07/13/20 20:20 07/13/20 21:00 07/13/20 20:57 07/13/20 20:20 Intake & Output 07/12/20 07/13/20 07/14/20 06:59 06:59 06:59 Intake Total 1395 718 813 Output Total 825 875 300 Balance 570 -157 513 Weight 81.2 kg 83.5 kg 77 kg Weight/Height Weight 77 kg Height 5 ft 7 in General appearance: PRESENT: severe distress Head exam: PRESENT: atraumatic, normocephalic Eye exam: PRESENT: conjunctiva pale, PERRLA Ear exam: PRESENT: normal external ear exam Mouth exam: PRESENT: moist, tongue midline Neck exam: PRESENT: tracheostomy, other - Bleeding around tracheostomy site.. ABSENT: JVD Respiratory exam: PRESENT: decreased breath sounds, rhonchi Cardiovascular exam: PRESENT: +S1, +S2, tachycardia Pulses: PRESENT: normal carotid pulses, normal radial pulses Vascular exam: PRESENT: pallor GI/Abdominal exam: PRESENT: soft. ABSENT: mass Extremities exam: ABSENT: joint swelling, pedal edema Musculoskeletal exam: PRESENT: other - Extreme lower extremity muscle wasting Neurological exam: PRESENT: altered Skin exam: PRESENT: mottled, pallor Tubes/Lines: PRESENT: Endotracheal Tube, Central Line Laboratory/Radiographs Laboratory Results: 07/13/20 16:45 07/13/20 16:45 07/11/20 07/13/20 07/13/20 11:30 16:45 16:45 WBC 15.0 H RBC 1.02 L Hgb 2.8 L* D Hct 9.0 L* MCV 88 MCH 27.5 MCHC 31.2 L RDW 17.2 H Plt Count 175 Seg Neutrophils % Not Reportable Sodium 144.7 Potassium 3.9 Chloride 117 H Carbon Dioxide 22 Anion Gap 6 BUN 25 H Creatinine 0.68 Est GFR ( Amer) > 60 Glucose 93 Calcium 6.1 L* Total Bilirubin 0.3 AST 14 L Alkaline Phosphatase 60 Total Protein 3.6 L Albumin 1.2 L Blood Type A POSITIVE Antibody Screen NEGATIVE 04/20/20 04/23/20 04/23/20 09:00 01:55 01:55 Creatine Kinase < 20 L CK-MB (CK-2) 2.20 Troponin I < 0.012 0.082 NT-Pro-B Natriuret Pep 58593 H 04/23/20 04/23/20 04/23/20 05:58 08:22 14:50 Creatine Kinase < 20 L < 20 L CK-MB (CK-2) 2.24 Troponin I 0.066 NT-Pro-B Natriuret Pep 04/23/20 06/09/20 07/07/20 14:50 05:20 04:03 Creatine Kinase < 20 L CK-MB (CK-2) 2.09 Troponin I 0.057 NT-Pro-B Natriuret Pep 35829 H 07/07/20 07/10/20 04:03 03:45 Creatine Kinase CK-MB (CK-2) 2.46 Troponin I < 0.012 < 0.012 NT-Pro-B Natriuret Pep Impressions: PICC Line Insertion 05/07/20 00:00 IMPRESSION: SUCCESSFUL PLACEMENT OF A 5 FR DUAL LUMEN 47 CM PICC IN THE LEFT BRACHIOCEPHALIC VEIN. Modified Barium Swallow 06/03/20 00:00 IMPRESSION: LARYNGEAL PENETRATION AND ASPIRATION ABOVE. HE WAS PLEASE SEE SPEECH PATHOLOGIST REPORT FOR OTHER FINDINGS AND RECOMMENDATIONS. Thoracentesis Ultrasound 06/08/20 14:12 IMPRESSION: SUCCESSFUL THORACENTESIS USING ULTRASOUND GUIDANCE. Chest CT 06/15/20 00:00 IMPRESSION: Moderate bilateral pleural effusions with bilateral multifocal pneumonia. Mediastinal lymphadenopathy is probably reactive. KUB X-Ray 07/06/20 00:00 IMPRESSION: PROMINENT STOOL IN THE RECTUM. NO RADIOGRAPHIC EVIDENCE FOR ACUTE ABDOMINAL DISEASE. Chest X-Ray 07/07/20 00:00 IMPRESSION: Increased airspace opacities in both lung bases. Venous Doppler Study 07/13/20 08:17 IMPRESSION: Limited examination in that the cephalic vein is not adequately visualized. No evidence of left upper extremity deep venous thrombosis. All labs, radiographs, diagnostic studies and EKGs were personally reviewed: Yes In addition, reports of radiographic and diagnostic studies were read: Yes Critical Time Critical Time (minutes): 74 -: The care of a critically ill patient is dynamic. This note represents a static moment in the admission process. Orders and treatments may be given simultaneously and urgently, and time is not community representative of the treatment process. This patient requires Critical Care secondary to life threatening organ or limb dysfunction. Without Critical Care services, the patient is at risk for increased mortality and morbidity.
[2020-07-13 22:29] LABS: HEMATOCRIT 24.6 % (37.9-51.0); MEAN CORPUSCULAR HEMOGLOBIN 28.4 pg (27.0-33.4); MEAN CORPUSCULAR HGB CONC 34.6 g/dL (32.0-36.0); PLATELET COUNT 231 10^3/uL (150-450); RED BLOOD COUNT 2.99 10^6/uL (4.35-5.55); RED CELL DISTRIBUTION WIDTH 15.8 % (11.5-14.0)
[2020-07-13] MEDS ORDERED: RINGERS SOLUTION,LACTATED 1,000 ML IV ONE (22:30)
[2020-07-13 22:44] LABS: HEMOGLOBIN 8.5 g/dL (13.5-17.0)
[2020-07-13 22:45] LABS: MEAN CORPUSCULAR VOLUME 82 fl (80-97)
[2020-07-13 22:48] LABS: WHITE BLOOD COUNT 42.7 10^3/uL (4.0-10.5)
[2020-07-13 22:53] LABS: ABSOLUTE LYMPHOCYTES# (MANUAL) 0.4 10^3/uL (0.5-4.7); BASOPHILS % (MANUAL) 0 % (0-2); EOSINOPHILS % (MANUAL) 0 % (0-6); LYMPHOCYTES % (MANUAL) 1 % (13-45); MONOCYTES % (MANUAL) 0 % (3-13); SEGMENTED NEUTROPHILS % (MAN) 99 % (42-78); TOTAL CELLS COUNTED 100
[2020-07-13 22:54] LABS: ANISOCYTOSIS 1+; POIKILOCYTOSIS 1+; TOXIC GRANULATION 1+
[2020-07-13 22:55] LABS: OVALOCYTES 1+; PLATELET COMMENT ADEQUATE; TEAR DROP CELLS 1+
[2020-07-14] MEDS: INSULIN REG, HUMAN 100 UNIT/ML 3 ML VIAL (PYX) SUBCUT SCH (00:30)
[2020-07-14] MEDS ORDERED: PANTOPRAZOLE SODIUM 40 MG VIAL IV ONE (00:34)
[2020-07-14] MEDS: MEROPENEM 1 GM in NORMAL SALINE 50 ML IV SCH ×3 (01:14→17:58)
[2020-07-14] MEDS: HYDROXYZINE HCL INJ 50 MG/1 ML VIAL IM PRN ×2 (03:46→13:58)
[2020-07-14] MEDS: DIPHENHYDRAMINE HCL 50 MG/ML VIAL IV PRN ×2 (03:46→13:59)
[2020-07-14] MEDS: PROMETHAZINE HCL INJ 25 MG/1 ML VIAL IV PRN ×3 (03:47→16:50)
[2020-07-14] MEDS: ACETAMINOPHEN SOLN 325 MG/10.15 ML UDCUP PO PRN (03:47)
[2020-07-14 03:57] LABS: HEMATOCRIT 20.5 % (37.9-51.0); MEAN CORPUSCULAR HEMOGLOBIN 27.8 pg (27.0-33.4); MEAN CORPUSCULAR VOLUME 82 fl (80-97); PLATELET COUNT 194 10^3/uL (150-450); RED CELL DISTRIBUTION WIDTH 15.8 % (11.5-14.0)
[2020-07-14 03:58] LABS: ANION GAP 7 (5-19); BLOOD UREA NITROGEN 31 mg/dL (7-20); CARBON DIOXIDE 24 mmol/L (22-30); CHLORIDE 112 mmol/L (98-107); GLUCOSE 182 mg/dL (75-110); POTASSIUM 4.1 mmol/L (3.6-5.0)
[2020-07-14 04:09] LABS: CALCIUM 6.9 mg/dL (8.4-10.2)
[2020-07-14 04:30] LABS: WHITE BLOOD COUNT 36.1 10^3/uL (4.0-10.5)
[2020-07-14 04:32] LABS: ABSOLUTE LYMPHOCYTES# (MANUAL) 1.4 10^3/uL (0.5-4.7); ABSOLUTE MONOCYTES # (MANUAL) 0.4 10^3/uL (0.1-1.4); BASOPHILS % (MANUAL) 0 % (0-2); EOSINOPHILS % (MANUAL) 0 % (0-6); LYMPHOCYTES % (MANUAL) 4 % (13-45); MONOCYTES % (MANUAL) 1 % (3-13); SEGMENTED NEUTROPHILS % (MAN) 95 % (42-78); TOTAL CELLS COUNTED 100
[2020-07-14 04:34] LABS: ANISOCYTOSIS 1+; OVALOCYTES 1+; PLATELET COMMENT ADEQUATE; POIKILOCYTOSIS 1+; TEAR DROP CELLS 1+; TOXIC GRANULATION SLIGHT; TOXIC VACUOLATION PRESENT
[2020-07-14] MEDS: CALCIUM GLUC IN NACL, ISO-OSM 1 GM/50 ML RTUPB IV SCH ×2 (06:51→07:53)
[2020-07-14] MEDS: ACETYLCYSTEINE 20% SOLN 800 MG/4 ML VIAL.NEB NEB SCH ×2 (08:40→21:15)
[2020-07-14] MEDS: IPRATROPIUM/ALBUTEROL 0.5-2.5 MG/3 ML AMPUL NEB PRN ×2 (08:40→21:15)
[2020-07-14] MEDS ORDERED: PANTOPRAZOLE SODIUM 40 MG VIAL IV SCH (10:00)
[2020-07-14] MEDS: NORMAL SALINE 10 ML SDV (SCHEDULED) IV SCH (10:01)
[2020-07-14] MEDS: AMINO AC/PROTEIN HYDR/WHEY PRO 11 GM/45 ML PKT PEG SCH ×2 (10:01→17:58)
[2020-07-14] MEDS: NA PHOS,M-B/NA PHOS,DI-BA (ADULT) 133 ML ENEMA PR SCH (10:02)
[2020-07-14] MEDS: BUSPIRONE HCL 10 MG TABLET PEG SCH ×2 (10:02→17:58)
[2020-07-14] MEDS ORDERED: RINGERS SOLUTION,LACTATED 1,000 ML IV PRN (11:42)
--- NOTE | 2020-07-14 12:08 | PDOC CRITICAL CARE PROG REPORT ---
General Date:: 07/14/20 ICU Day:: 2 Resuscitation Status: Full Code Events in the past 12 to 24 Hours:: Still in need of vent support and suctioning. 07/14: Vomited coffee ground material, hematochezia of old appearing blood. Review of systems relevant to events:: GI, pulmonary. Reason for ICU Addmission:: Upper GI bleed. - Medications: Medications reviewed and adjusted accordingly: Yes Vasopressors:: Levophed Sedation:: None Physical Exam Vital Signs: Temp Pulse Resp BP Pulse Ox 97.9 F 105 H 9 L 137/76 H 100 07/14/20 08:00 07/14/20 10:00 07/14/20 10:00 07/14/20 10:00 07/14/20 11:14 Intake & Output 07/13/20 07/14/20 07/15/20 06:59 06:59 06:59 Intake Total 718 1403 Output Total 875 450 0 Balance -157 953 0 Weight 83.5 kg 80.1 kg Weight/Height Weight 80.1 kg Height 5 ft 7 in General appearance: PRESENT: no acute distress, thin Head exam: PRESENT: atraumatic, normocephalic Eye exam: PRESENT: conjunctiva pink, EOMI, PERRLA. ABSENT: scleral icterus Ear exam: PRESENT: normal external ear exam Mouth exam: PRESENT: moist, tongue midline, other - Dried blood present Respiratory exam: PRESENT: clear to auscultation yousif. ABSENT: rales, rhonchi, wheezes Cardiovascular exam: PRESENT: RRR, tachycardia. ABSENT: diastolic murmur, rubs, systolic murmur GI/Abdominal exam: PRESENT: normal bowel sounds, soft. ABSENT: distended, guarding, mass, organolmegaly, rebound, tenderness Rectal exam: PRESENT: deferred Gentrourinary exam: PRESENT: indwelling catheter Extremities exam: PRESENT: full ROM. ABSENT: calf tenderness, clubbing, pedal edema Neurological exam: PRESENT: alert, awake, oriented to person, oriented to place, oriented to time, oriented to situation, CN II-XII grossly intact. ABSENT: motor sensory deficit Psychiatric exam: PRESENT: appropriate affect, normal mood. ABSENT: homicidal ideation, suicidal ideation Skin exam: PRESENT: dry, intact, warm, other - Sacral decubitus, present for quite some time.. ABSENT: cyanosis, rash Tubes/Lines: PRESENT: Other - Tracheostomy. Laboratory/Radiographs Laboratory Results: 07/14/20 03:20 07/14/20 03:20 07/11/20 07/13/20 07/13/20 11:30 16:45 16:45 WBC 15.0 H RBC 1.02 L Hgb 2.8 L* D Hct 9.0 L* MCV 88 MCH 27.5 MCHC 31.2 L RDW 17.2 H Plt Count 175 Seg Neutrophils % Not Reportable Sodium 144.7 Potassium 3.9 Chloride 117 H Carbon Dioxide 22 Anion Gap 6 BUN 25 H Creatinine 0.68 Est GFR ( Amer) > 60 Glucose 93 Calcium 6.1 L* Total Bilirubin 0.3 AST 14 L Alkaline Phosphatase 60 Total Protein 3.6 L Albumin 1.2 L Blood Type A POSITIVE Antibody Screen NEGATIVE 07/13/20 07/14/20 07/14/20 21:55 03:20 03:20 WBC 42.7 H* D 36.1 H* RBC 2.99 L 2.50 L Hgb 8.5 L D 7.0 L Hct 24.6 L 20.5 L MCV 82 D 82 MCH 28.4 27.8 MCHC 34.6 34.0 RDW 15.8 H 15.8 H Plt Count 231 194 Seg Neutrophils % Not Reportable Not Reportable Sodium 142.6 Potassium 4.1 Chloride 112 H Carbon Dioxide 24 Anion Gap 7 BUN 31 H Creatinine 0.80 Est GFR ( Amer) > 60 Glucose 182 H Calcium 6.9 L* Total Bilirubin AST Alkaline Phosphatase Total Protein Albumin Blood Type Antibody Screen 04/20/20 04/23/20 04/23/20 09:00 01:55 01:55 Creatine Kinase < 20 L CK-MB (CK-2) 2.20 Troponin I < 0.012 0.082 NT-Pro-B Natriuret Pep [id number] H 04/23/20 04/23/20 04/23/20 05:58 08:22 14:50 Creatine Kinase < 20 L < 20 L CK-MB (CK-2) 2.24 Troponin I 0.066 NT-Pro-B Natriuret Pep 04/23/20 06/09/20 07/07/20 14:50 05:20 04:03 Creatine Kinase < 20 L CK-MB (CK-2) 2.09 Troponin I 0.057 NT-Pro-B Natriuret Pep [id number] H 07/07/20 07/10/20 04:03 03:45 Creatine Kinase CK-MB (CK-2) 2.46 Troponin I < 0.012 < 0.012 NT-Pro-B Natriuret Pep Impressions: PICC Line Insertion 05/07/20 00:00 IMPRESSION: SUCCESSFUL PLACEMENT OF A 5 FR DUAL LUMEN 47 CM PICC IN THE LEFT BRACHIOCEPHALIC VEIN. Modified Barium Swallow 06/03/20 00:00 IMPRESSION: LARYNGEAL PENETRATION AND ASPIRATION ABOVE. HE WAS PLEASE SEE SPEECH PATHOLOGIST REPORT FOR OTHER FINDINGS AND RECOMMENDATIONS. Thoracentesis Ultrasound 06/08/20 14:12 IMPRESSION: SUCCESSFUL THORACENTESIS USING ULTRASOUND GUIDANCE. Chest CT 06/15/20 00:00 IMPRESSION: Moderate bilateral pleural effusions with bilateral multifocal pneumonia. Mediastinal lymphadenopathy is probably reactive. KUB X-Ray 07/06/20 00:00 IMPRESSION: PROMINENT STOOL IN THE RECTUM. NO RADIOGRAPHIC EVIDENCE FOR ACUTE ABDOMINAL DISEASE. Chest X-Ray 07/07/20 00:00 IMPRESSION: Increased airspace opacities in both lung bases. Venous Doppler Study 07/13/20 08:17 IMPRESSION: Limited examination in that the cephalic vein is not adequately visualized. No evidence of left upper extremity deep venous thrombosis. All labs, radiographs, diagnostic studies and EKGs were personally reviewed: Yes In addition, reports of radiographic and diagnostic studies were read: Yes Assessment and Plan - Diagnosis (1) UGI bleed Is this a current diagnosis for this admission?: Yes Plan: With vomiting of coffee grounds and now hematochezia-old. It seems as though he has an UGI bleed. He is on protonix now increased to BID. (2) Acute on chronic respiratory failure with hypoxia and hypercapnia Is this a current diagnosis for this admission?: Yes Plan: He still needs some vent support from fatigue. (3) Diabetes Qualifiers: Diabetes mellitus type: type 2 Is this a current diagnosis for this admission?: Yes Plan: Controlled. (4) MSSA bacteremia Is this a current diagnosis for this admission?: Yes Plan: Meropenem to stop tomorrow. (5) Malnutrition Qualifiers: Malnutrition type: protein-calorie malnutrition Protein-calorie malnutrition severity: severe Qualified Code(s): E43 - Unspecified severe protein-calorie malnutrition Is this a current diagnosis for this admission?: Yes Plan: Still emaciated. Plan Summary: Ideally he needs an NG and lavage but he is adamently refusing as before. Keep on bid Protonix. Critical Time Critical Time (minutes): 40 Level of Care: ICU Anticipated discharge: SNF Anticipated DC Timeframe: Other -: 1. The care of a critical patient is a dynamic process. This note is a patient care representative synopsis but static in nature. The timeframe for treatments given in order is not necessarily the actual time these treatments may have been done. 2. This patient requires critical care secondary to ongoing requirements for therapy not offered or safe outside the critical care environment. Transfer to a lower level of care will result in altered life or limb morbidity and mortality. 3. Multidisciplinary rounds completed. 4. ABCDE bundle addressed.
[2020-07-14 12:26] LABS: HEMATOCRIT 18.6 % (37.9-51.0); MEAN CORPUSCULAR HGB CONC 34.4 g/dL (32.0-36.0); MEAN CORPUSCULAR VOLUME 82 fl (80-97); PLATELET COUNT 191 10^3/uL (150-450); RED BLOOD COUNT 2.28 10^6/uL (4.35-5.55); RED CELL DISTRIBUTION WIDTH 15.7 % (11.5-14.0); WHITE BLOOD COUNT 25.6 10^3/uL (4.0-10.5)
[2020-07-14 12:52] LABS: HEMOGLOBIN 6.4 g/dL (13.5-17.0)
[2020-07-14] MEDS: DEXTROSE 5%-WATER 250 ML with NOREPINEPHRINE BITARTRATE 4 MG IV PRN ×2 (12:52)
--- NOTE | 2020-07-14 13:10 | RADIOLOGY REPORT (SQ) ---
EXAM DESCRIPTION: CT CHEST WITHOUT IMAGES COMPLETED DATE/TIME: 07/14/2020 11:44 am REASON FOR STUDY: bleeding from trach J96.21 ACUTE AND CHRONIC RESPIRATORY FAILURE WITH HYPOXIA COMPARISON: CT chest 06/15/2020 TECHNIQUE: CT scan performed of the chest without intravenous contrast. Images reviewed with lung, soft tissue and bone windows. Reconstructed coronal and sagittal MPR images reviewed. All images st ored on PACS. All CT scanners at this facility use dose modulation, iterative reconstruction, and/or weight based d osing when appropriate to reduce radiation dose to as low as reasonably achievable (ALARA). [facility]: Dose Right [facility]: CareDose [facility]: Dose Right [facility]: Teradose 4D [facility]: Smart [employer] RADIATION DOSE: CT Rad equipment meets quality standard of care and radiation dose reduction techniq ues were employed. CTDIvol: 12.6 - 16.8 mGy. DLP: 981 mGy-cm. mGy. LIMITATIONS: Motion artifact. Lack of IV contrast. FINDINGS: LUNGS AND PLEURA: Tracheostomy is in good position in the upper trachea. There is subcuta neous edema. Motion artifact obscures some detail. Trachea has normal caliber and appearance. No e ndotracheal mass or fluid. There is consolidation both lung bases with moderate to large pleural eff usions. No pneumothorax. HILAR AND MEDIASTINAL STRUCTURES: Poorly evaluated without IV contrast and due to large effusions and consolidation. There are prominent mediastinal lymph nodes present which may be reactive. An examp le aortic or pulmonary window node measures 1.8 x 1 cm. HEART AND VASCULAR STRUCTURES: Heart has normal size. Coronary artery stents. Small pericardial eff usion/pericardial thickening. Thoracic aorta has normal caliber. UPPER ABDOMEN: No significant findings. Limited exam. THYROID AND OTHER SOFT TISSUES: Diffuse subcutaneous edema. Left supraclavicular lymphadenopathy. BONES: Spondylosis and degenerative disc disease. No suspicious bone lesions. Cervical spine fixati on hardware without evidence of complication. HARDWARE: Left PICC with tip in the mid SVC. Tracheostomy in good position as described. OTHER: No other significant findings. IMPRESSION: 1. Tracheostomy tube is in good position. No evidence of complication. Evaluation is somewhat limit ed due to lack of IV contrast and motion. There is no retained endotracheal fluid or debris. 2. Moderate to large bilateral pleural effusions with compressive atelectasis/consolidation at the angel ng bases. Findings are similar to previous examination. 3. Mediastinal and left supraclavicular lymphadenopathy may be reactive. TECHNICAL DOCUMENTATION: JOB ID: [id number] Quality ID # [id number]: Final reports with documentation of one or more dose reduction techniques (e.g., Au tomated exposure control, adjustment of the mA and/or kV according to patient size, use of iterative reconstruction technique) 2010 [employer]- All Rights Reserved Reading location - IP/workstation name: [email or web address]
[2020-07-14] MEDS: PANTOPRAZOLE SODIUM 40 MG VIAL IV SCH ×2 (13:16→17:58)
[2020-07-14] MEDS ORDERED: NORMAL SALINE 250 ML IV PRN ×4 (13:20→22:45)
[2020-07-14] MEDS: DEXTROSE 5%-NORMAL SALINE 1,000 ML IV PRN (20:41)
[2020-07-14 22:27] LABS: ABSOLUTE LYMPHOCYTES (AUTO) 1.4 10^3/uL (0.5-4.7); ABSOLUTE MONOCYTES (AUTO) 0.6 10^3/uL (0.1-1.4); ABSOLUTE NEUT (AUTO) 14.9 10^3/uL (1.7-8.2); BASOPHILS % (AUTO) 0.2 % (0-2); EOSINOPHILS % (AUTO) 0.1 % (0-6); HEMATOCRIT 15.7 % (37.9-51.0); LYMPHOCYTES % (AUTO) 8.1 % (13-45); MEAN CORPUSCULAR HEMOGLOBIN 28.7 pg (27.0-33.4); MEAN CORPUSCULAR HGB CONC 35.1 g/dL (32.0-36.0); MEAN CORPUSCULAR VOLUME 82 fl (80-97); MONOCYTES % (AUTO) 3.6 % (3-13); PLATELET COUNT 165 10^3/uL (150-450); RED BLOOD COUNT 1.92 10^6/uL (4.35-5.55); RED CELL DISTRIBUTION WIDTH 16.3 % (11.5-14.0); TOTAL CELLS COUNTED % (AUTO) 100 %; WHITE BLOOD COUNT 16.9 10^3/uL (4.0-10.5)
[2020-07-14 22:30] LABS: HEMOGLOBIN 5.5 g/dL (13.5-17.0)
[2020-07-14 22:36] LABS: BLOOD UREA NITROGEN 34 mg/dL (7-20); CALCIUM 7.1 mg/dL (8.4-10.2); GLUCOSE 99 mg/dL (75-110); PHOSPHORUS 2.1 mg/dL (2.5-4.5); POTASSIUM 3.7 mmol/L (3.6-5.0)
[2020-07-14 22:41] LABS: CARBON DIOXIDE 27 mmol/L (22-30); CHLORIDE 112 mmol/L (98-107)
[2020-07-14 22:42] LABS: ANION GAP 2 (5-19)
[2020-07-14 23:08] LABS: APPEARANCE,URINE SLIGHTLY-CLOUDY; BILIRUBIN,URINE NEGATIVE (NEGATIVE); COLOR,URINE YELLOW; GLUCOSE, URINE NEGATIVE (NEGATIVE); KETONES,URINE TRACE mg/dL (NEGATIVE); PROTEIN,URINE NEGATIVE (NEGATIVE); URINE SPECIFIC GRAVITY 1.014; UROBILINOGEN,URINE NEGATIVE mg/dL (<2.0)
[2020-07-15] MEDS: ACETAMINOPHEN SOLN 325 MG/10.15 ML UDCUP PO PRN (00:14)
[2020-07-15] MEDS: DIPHENHYDRAMINE HCL 50 MG/ML VIAL IV PRN ×2 (00:14→10:07)
[2020-07-15] MEDS: PROMETHAZINE HCL INJ 25 MG/1 ML VIAL IV PRN ×3 (00:15→16:37)
[2020-07-15] MEDS: MEROPENEM 1 GM in NORMAL SALINE 50 ML IV SCH ×3 (01:27→17:59)
[2020-07-15 04:27] LABS: ABSOLUTE LYMPHOCYTES (AUTO) 1.4 10^3/uL (0.5-4.7); ABSOLUTE MONOCYTES (AUTO) 0.6 10^3/uL (0.1-1.4); ABSOLUTE NEUT (AUTO) 12.6 10^3/uL (1.7-8.2); BASOPHILS % (AUTO) 0.2 % (0-2); EOSINOPHILS % (AUTO) 0.2 % (0-6); HEMATOCRIT 15.3 % (37.9-51.0); LYMPHOCYTES % (AUTO) 9.5 % (13-45); MEAN CORPUSCULAR HEMOGLOBIN 28.2 pg (27.0-33.4); MEAN CORPUSCULAR HGB CONC 34.6 g/dL (32.0-36.0); MEAN CORPUSCULAR VOLUME 82 fl (80-97); MONOCYTES % (AUTO) 4.4 % (3-13); PLATELET COUNT 170 10^3/uL (150-450); RED BLOOD COUNT 1.88 10^6/uL (4.35-5.55); RED CELL DISTRIBUTION WIDTH 16.2 % (11.5-14.0); SEGMENTED NEUTROPHILS % (AUTO) 85.7 % (42-78); TOTAL CELLS COUNTED % (AUTO) 100 %; WHITE BLOOD COUNT 14.7 10^3/uL (4.0-10.5)
[2020-07-15 04:29] LABS: HEMOGLOBIN 5.3 g/dL (13.5-17.0)
[2020-07-15] MEDS: ACETYLCYSTEINE 20% SOLN 800 MG/4 ML VIAL.NEB NEB SCH ×2 (08:50→20:47)
[2020-07-15] MEDS: NA PHOS,M-B/NA PHOS,DI-BA (ADULT) 133 ML ENEMA PR SCH (09:51)
[2020-07-15] MEDS: AMINO AC/PROTEIN HYDR/WHEY PRO 11 GM/45 ML PKT PEG SCH (09:55)
[2020-07-15] MEDS: BUSPIRONE HCL 10 MG TABLET PEG SCH ×3 (09:55→18:05)
[2020-07-15] MEDS: PANTOPRAZOLE SODIUM 40 MG VIAL IV SCH ×2 (09:55→18:00)
[2020-07-15] MEDS ORDERED: NORMAL SALINE 250 ML IV PRN ×2 (13:11)
--- NOTE | 2020-07-15 13:49 | PDOC CRITICAL CARE PROG REPORT ---
General Date:: 07/15/20 ICU Day:: 2 Resuscitation Status: Full Code Events in the past 12 to 24 Hours:: Still in need of vent support and suctioning. 07/14: Vomited coffee ground material, hematochezia of old appearing blood. 07/15: Continues to pass old blood from rectum. Episode of vomiting coffee ground material. Still refusing NG or EGD. Accepting transfusion now. Review of systems relevant to events:: GI, Pulmonary. Reason for ICU Addmission:: Upper GI bleed. Hypotension. - Medications: Medications reviewed and adjusted accordingly: Yes Vasopressors:: None Sedation:: None Physical Exam Vital Signs: Temp Pulse Resp BP Pulse Ox 98.0 F 102 H 18 128/72 H 100 07/15/20 10:00 07/15/20 12:00 07/15/20 12:00 07/15/20 12:00 07/15/20 12:00 Intake & Output 07/14/20 07/15/20 07/16/20 06:59 06:59 06:59 Intake Total 1403 1238 50 Output Total 450 880 500 Balance 953 358 -450 Weight 80.1 kg 81.4 kg 81.4 kg Weight/Height Weight 81.4 kg Height 5 ft 7 in General appearance: PRESENT: no acute distress Head exam: PRESENT: atraumatic, normocephalic Eye exam: PRESENT: conjunctiva pink, EOMI, PERRLA. ABSENT: scleral icterus Ear exam: PRESENT: normal external ear exam Mouth exam: PRESENT: moist, tongue midline Respiratory exam: PRESENT: clear to auscultation yousif. ABSENT: rales, rhonchi, wheezes Cardiovascular exam: PRESENT: RRR. ABSENT: diastolic murmur, rubs, systolic murmur GI/Abdominal exam: PRESENT: normal bowel sounds, soft. ABSENT: distended, guarding, mass, organolmegaly, rebound, tenderness Rectal exam: PRESENT: deferred, heme (+) stool Extremities exam: PRESENT: full ROM. ABSENT: calf tenderness, clubbing, pedal edema Neurological exam: PRESENT: alert, awake, oriented to person, oriented to place, oriented to time, oriented to situation, CN II-XII grossly intact. ABSENT: motor sensory deficit Psychiatric exam: PRESENT: appropriate affect, normal mood. ABSENT: homicidal ideation, suicidal ideation Skin exam: PRESENT: dry, intact, warm. ABSENT: cyanosis, rash Laboratory/Radiographs Laboratory Results: 07/15/20 03:55 07/14/20 21:50 07/14/20 07/14/20 07/14/20 21:50 21:50 21:50 WBC 16.9 H RBC 1.92 L Hgb 5.5 L Hct 15.7 L MCV 82 MCH 28.7 MCHC 35.1 RDW 16.3 H Plt Count 165 Seg Neutrophils % 88.0 H Sodium 141.0 Potassium 3.7 Chloride 112 H Carbon Dioxide 27 Anion Gap 2 L BUN 34 H Creatinine 0.84 Est GFR ( Amer) > 60 Glucose 99 Calcium 7.1 L Phosphorus 2.1 L Magnesium 1.6 Urine Color YELLOW Urine Appearance SLIGHTLY-CLOUDY Urine pH 5.0 Ur Specific [place] 1.014 Urine Protein NEGATIVE Urine Glucose (UA) NEGATIVE Urine Ketones TRACE H Urine Blood MODERATE H Urine RBC (Auto) 15 Blood Type Antibody Screen 07/15/20 07/15/20 03:55 12:05 WBC 14.7 H RBC 1.88 L Hgb 5.3 L Hct 15.3 L MCV 82 MCH 28.2 MCHC 34.6 RDW 16.2 H Plt Count 170 Seg Neutrophils % 85.7 H Sodium Potassium Chloride Carbon Dioxide Anion Gap BUN Creatinine Est GFR ( Amer) Glucose Calcium Phosphorus Magnesium Urine Color Urine Appearance Urine pH Ur Specific [place] Urine Protein Urine Glucose (UA) Urine Ketones Urine Blood Urine RBC (Auto) Blood Type A POSITIVE Antibody Screen NEGATIVE 04/20/20 04/23/20 04/23/20 09:00 01:55 01:55 Creatine Kinase < 20 L CK-MB (CK-2) 2.20 Troponin I < 0.012 0.082 NT-Pro-B Natriuret Pep [id number] H 04/23/20 04/23/20 04/23/20 05:58 08:22 14:50 Creatine Kinase < 20 L < 20 L CK-MB (CK-2) 2.24 Troponin I 0.066 NT-Pro-B Natriuret Pep 04/23/20 06/09/20 07/07/20 14:50 05:20 04:03 Creatine Kinase < 20 L CK-MB (CK-2) 2.09 Troponin I 0.057 NT-Pro-B Natriuret Pep [id number] H 07/07/20 07/10/20 04:03 03:45 Creatine Kinase CK-MB (CK-2) 2.46 Troponin I < 0.012 < 0.012 NT-Pro-B Natriuret Pep Impressions: PICC Line Insertion 05/07/20 00:00 IMPRESSION: SUCCESSFUL PLACEMENT OF A 5 FR DUAL LUMEN 47 CM PICC IN THE LEFT BRACHIOCEPHALIC VEIN. Modified Barium Swallow 06/03/20 00:00 IMPRESSION: LARYNGEAL PENETRATION AND ASPIRATION ABOVE. HE WAS PLEASE SEE SPEECH PATHOLOGIST REPORT FOR OTHER FINDINGS AND RECOMMENDATIONS. Thoracentesis Ultrasound 06/08/20 14:12 IMPRESSION: SUCCESSFUL THORACENTESIS USING ULTRASOUND GUIDANCE. KUB X-Ray 07/06/20 00:00 IMPRESSION: PROMINENT STOOL IN THE RECTUM. NO RADIOGRAPHIC EVIDENCE FOR ACUTE ABDOMINAL DISEASE. Chest X-Ray 07/07/20 00:00 IMPRESSION: Increased airspace opacities in both lung bases. Venous Doppler Study 07/13/20 08:17 IMPRESSION: Limited examination in that the cephalic vein is not adequately visualized. No evidence of left upper extremity deep venous thrombosis. Chest CT 07/14/20 07:07 IMPRESSION: 1. Tracheostomy tube is in good position. No evidence of complication. Evaluation is somewhat limited due to lack of IV contrast and motion. There is no retained endotracheal fluid or debris. 2. Moderate to large bilateral pleural effusions with compressive atelectasis/consolidation at the lung bases. Findings are similar to previous examination. 3. Mediastinal and left supraclavicular lymphadenopathy may be reactive. All labs, radiographs, diagnostic studies and EKGs were personally reviewed: Yes In addition, reports of radiographic and diagnostic studies were read: Yes Assessment and Plan - Diagnosis (1) UGI bleed Is this a current diagnosis for this admission?: Yes Plan: He is still vomiting coffee ground material occasionally. Nothing that looks like fresh blood. HGb still dropping. He has consented to transfusion. He is, and has been stubborn and resistant to treatment. He is on protonix, carafate and should be able to downgrade soon. (2) Acute on chronic respiratory failure with hypoxia and hypercapnia Is this a current diagnosis for this admission?: Yes Plan: Can likely come off vent (3) Diabetes Qualifiers: Diabetes mellitus type: type 2 Is this a current diagnosis for this admission?: Yes Plan: Controlled (4) MSSA bacteremia Is this a current diagnosis for this admission?: Yes Plan: Last positive BC 07/07. (5) Malnutrition Qualifiers: Malnutrition type: protein-calorie malnutrition Protein-calorie malnutrition severity: severe Qualified Code(s): E43 - Unspecified severe protein-calorie malnutrition Is this a current diagnosis for this admission?: Yes Plan: Should restart PO soon. Plan Summary: There really is nothing to keep him at an ICU level of care. For months now he has been resistant and refusing treatments. Efforts with his care are becoming futile. He is refusing EGD, NG, transfusion until his Hgb reached 5.3. He has refused PT, activity, placement in an LTAC. There really is getting to be no benefit to being in the acute care setting, however he will not make himself DNR but accepts if it comes. A difficult situation at best. He will be downgraded to IMC. Critical Time Critical Time (minutes): 35 Level of Care: IMCU Anticipated discharge: SNF Anticipated DC Timeframe: Other -: 1. The care of a critical patient is a dynamic process. This note is a sales representative [employer] synopsis but static in nature. The timeframe for treatments given in order is not necessarily the actual time these treatments may have been done. 2. This patient requires critical care secondary to ongoing requirements for therapy not offered or safe outside the critical care environment. Transfer to a lower level of care will result in altered life or limb morbidity and mortality. 3. Multidisciplinary rounds completed. 4. ABCDE bundle addressed.
[2020-07-15 16:13] LABS: PATH REVIEW PATHOLOGIST REVIEWED
[2020-07-15] MEDS: SUCRALFATE 1 GM TABLET PO SCH ×3 (18:01→23:25)
[2020-07-15] MEDS: DEXTROSE 5%-NORMAL SALINE 1,000 ML IV PRN (19:47)
--- NOTE | 2020-07-15 22:42 | Progress Note ---
Provider Note Provider Note: I reviewed the patient with the ferris wheel attendant. His latest complication is a GI bleed. He is not appropriate for endoscopy at this point. The patient has been an inpatient for many months. He has exhibited a pattern of noncompliance at best and down right abusive behavior to the staff at times. He regularly obstr ucts the treatment plan by refusing treatments and medications and not allowing phlebotomy or other testing to be done. It is unfortunate but in my professional opinion I believe he is past the point of recovery and will continue to slowly decline and have recurrent complications. An aggressive treatment plan at this point I believe is futile. Since mid December of this year until present the patient has had some 200 inpatient days. In that time he has only declined. He has only had more complications including multiple intubations with eventual tracheostomy placement. The patient has shown no engagement in treatment plans, consistent participation with therapy and in a show of true interest in recovering. It is for this reason that I feel any future interventions will be futile. I feel it is reasonable to consider discontinuing treatment at this time or in the event of another complication.
[2020-07-16] MEDS: ACETAMINOPHEN SOLN 325 MG/10.15 ML UDCUP PO PRN ×3 (00:56→11:58)
[2020-07-16] MEDS: PROMETHAZINE HCL INJ 25 MG/1 ML VIAL IV PRN ×2 (00:56→06:35)
[2020-07-16] MEDS: DIPHENHYDRAMINE HCL 50 MG/ML VIAL IV PRN ×3 (00:56→22:30)
[2020-07-16] MEDS: MEROPENEM 1 GM in NORMAL SALINE 50 ML IV SCH ×3 (01:44→18:16)
[2020-07-16 03:27] LABS: ABSOLUTE EOSINOPHILS # (AUTO) 0.1 10^3/uL (0.0-0.6); ABSOLUTE LYMPHOCYTES (AUTO) 1.2 10^3/uL (0.5-4.7); ABSOLUTE MONOCYTES (AUTO) 0.7 10^3/uL (0.1-1.4); BASOPHILS % (AUTO) 0.1 % (0-2); EOSINOPHILS % (AUTO) 0.6 % (0-6); HEMATOCRIT 23.3 % (37.9-51.0); LYMPHOCYTES % (AUTO) 9.3 % (13-45); MEAN CORPUSCULAR HEMOGLOBIN 29.3 pg (27.0-33.4); MEAN CORPUSCULAR HGB CONC 34.7 g/dL (32.0-36.0); MEAN CORPUSCULAR VOLUME 84 fl (80-97); MONOCYTES % (AUTO) 5.3 % (3-13); PLATELET COUNT 177 10^3/uL (150-450); RED BLOOD COUNT 2.76 10^6/uL (4.35-5.55); SEGMENTED NEUTROPHILS % (AUTO) 84.7 % (42-78); TOTAL CELLS COUNTED % (AUTO) 100 %
[2020-07-16 03:28] LABS: HEMOGLOBIN 8.1 g/dL (13.5-17.0)
[2020-07-16] MEDS: SUCRALFATE 1 GM TABLET PO SCH ×3 (06:36→18:32)
[2020-07-16] MEDS: BUSPIRONE HCL 10 MG TABLET PEG SCH ×2 (09:05→18:32)
[2020-07-16] MEDS: PANTOPRAZOLE SODIUM 40 MG VIAL IV SCH ×2 (09:05→18:15)
[2020-07-16] MEDS: SCOPOLAMINE HYDROBROMIDE 1.5 MG PATCH.TD72 TD SCH (09:13)
[2020-07-16] MEDS: NA PHOS,M-B/NA PHOS,DI-BA (ADULT) 133 ML ENEMA PR SCH (10:15)
--- NOTE | 2020-07-16 11:05 | PDOC CRITICAL CARE PROG REPORT ---
General Date:: 07/16/20 ICU Day:: 3 Resuscitation Status: Full Code Events in the past 12 to 24 Hours:: Still in need of vent support and suctioning. 07/14: Vomited coffee ground material, hematochezia of old appearing blood. 07/15: Continues to pass old blood from rectum. Episode of vomiting coffee ground material. Still refusing NG or EGD. Accepting transfusion now. 07/16: Stable. NMo pressors. Can likely come off vent to trach collar. Accepted EGD this AM at about 3. Now refusing but says yes to PT and LTAC which he has historically refused. Review of systems relevant to events:: GI, pulmonary. Reason for ICU Addmission:: Upper GI bleed. Hypotension. Resolved. - Medications: Medications reviewed and adjusted accordingly: Yes Vasopressors:: None Sedation:: None Physical Exam Vital Signs: Temp Pulse Resp BP Pulse Ox 98 F 97 17 141/88 H 99 07/16/20 09:59 07/15/20 23:20 07/16/20 10:00 07/16/20 09:59 07/16/20 10:00 Intake & Output 07/15/20 07/16/20 07/17/20 06:59 06:59 06:59 Intake Total 1238 1800 50 Output Total 880 1435 250 Balance 358 365 -200 Weight 81.4 kg 83.5 kg Weight/Height Weight 83.5 kg Height 5 ft 7 in General appearance: PRESENT: thin, other - Emaciaed. Head exam: PRESENT: atraumatic, normocephalic Eye exam: PRESENT: conjunctiva pink, EOMI, PERRLA. ABSENT: scleral icterus Ear exam: PRESENT: normal external ear exam Mouth exam: PRESENT: moist, tongue midline Neck exam: PRESENT: tracheostomy Respiratory exam: PRESENT: clear to auscultation yousif. ABSENT: rales, rhonchi, wheezes Cardiovascular exam: PRESENT: RRR. ABSENT: diastolic murmur, rubs, systolic murmur GI/Abdominal exam: PRESENT: normal bowel sounds, soft. ABSENT: distended, guarding, mass, organolmegaly, rebound, tenderness Rectal exam: PRESENT: deferred Gentrourinary exam: PRESENT: indwelling catheter Extremities exam: PRESENT: full ROM. ABSENT: calf tenderness, clubbing, pedal edema Musculoskeletal exam: PRESENT: normal inspection Neurological exam: PRESENT: alert, altered, awake, oriented to person, oriented to place, oriented to time, oriented to situation, CN II-XII grossly intact Psychiatric exam: PRESENT: appropriate affect, normal mood. ABSENT: homicidal ideation, suicidal ideation Skin exam: PRESENT: dry, intact, warm. ABSENT: cyanosis, rash Tubes/Lines: PRESENT: Other - Tracheotomy Laboratory/Radiographs Laboratory Results: 07/16/20 03:02 07/14/20 21:50 07/13/20 07/15/20 07/16/20 16:45 12:05 03:02 WBC 13.0 H RBC 2.76 L Hgb 2.8 L* D 8.1 L D Hct 9.0 L* 23.3 L MCV 84 MCH 29.3 MCHC 34.7 RDW 16.0 H Plt Count 177 Seg Neutrophils % 84.7 H Blood Type A POSITIVE Antibody Screen NEGATIVE 04/20/20 04/23/20 04/23/20 09:00 01:55 01:55 Creatine Kinase < 20 L CK-MB (CK-2) 2.20 Troponin I < 0.012 0.082 NT-Pro-B Natriuret Pep [id number] H 04/23/20 04/23/20 04/23/20 05:58 08:22 14:50 Creatine Kinase < 20 L < 20 L CK-MB (CK-2) 2.24 Troponin I 0.066 NT-Pro-B Natriuret Pep 04/23/20 06/09/20 07/07/20 14:50 05:20 04:03 Creatine Kinase < 20 L CK-MB (CK-2) 2.09 Troponin I 0.057 NT-Pro-B Natriuret Pep [id number] H 07/07/20 07/10/20 04:03 03:45 Creatine Kinase CK-MB (CK-2) 2.46 Troponin I < 0.012 < 0.012 NT-Pro-B Natriuret Pep Impressions: PICC Line Insertion 05/07/20 00:00 IMPRESSION: SUCCESSFUL PLACEMENT OF A 5 FR DUAL LUMEN 47 CM PICC IN THE LEFT BRACHIOCEPHALIC VEIN. Modified Barium Swallow 06/03/20 00:00 IMPRESSION: LARYNGEAL PENETRATION AND ASPIRATION ABOVE. HE WAS PLEASE SEE SPEECH PATHOLOGIST REPORT FOR OTHER FINDINGS AND RECOMMENDATIONS. Thoracentesis Ultrasound 06/08/20 14:12 IMPRESSION: SUCCESSFUL THORACENTESIS USING ULTRASOUND GUIDANCE. KUB X-Ray 07/06/20 00:00 IMPRESSION: PROMINENT STOOL IN THE RECTUM. NO RADIOGRAPHIC EVIDENCE FOR ACUTE ABDOMINAL DISEASE. Chest X-Ray 07/07/20 00:00 IMPRESSION: Increased airspace opacities in both lung bases. Venous Doppler Study 07/13/20 08:17 IMPRESSION: Limited examination in that the cephalic vein is not adequately visualized. No evidence of left upper extremity deep venous thrombosis. Chest CT 07/14/20 07:07 IMPRESSION: 1. Tracheostomy tube is in good position. No evidence of complication. Evaluation is somewhat limited due to lack of IV contrast and motion. There is no retained endotracheal fluid or debris. 2. Moderate to large bilateral pleural effusions with compressive atelectasis/consolidation at the lung bases. Findings are similar to previous examination. 3. Mediastinal and left supraclavicular lymphadenopathy may be reactive. All labs, radiographs, diagnostic studies and EKGs were personally reviewed: Yes In addition, reports of radiographic and diagnostic studies were read: Yes Assessment and Plan - Diagnosis (1) UGI bleed Is this a current diagnosis for this admission?: Yes Plan: There is no further bloeeding, either coffee ground or hematochezia. Smal amountg of old cooffee ground emesis this AM early but today. On IV protonix and PO carafate. (2) Acute on chronic respiratory failure with hypoxia and hypercapnia Is this a current diagnosis for this admission?: Yes Plan: He is on PSV but I think he can do trach colllar if he allows. (3) Diabetes Qualifiers: Diabetes mellitus type: type 2 Is this a current diagnosis for this admission?: Yes Plan: Controlled. (4) MSSA bacteremia Is this a current diagnosis for this admission?: Yes Plan: Ot also has enterobacter in blood, both sensitive to meropenem. (5) Malnutrition Qualifiers: Malnutrition type: protein-calorie malnutrition Protein-calorie malnutrition severity: severe Qualified Code(s): E43 - Unspecified severe protein-calorie malnutrition Is this a current diagnosis for this admission?: Yes Plan: Although we have tried to keep up with feedings and TPN, as much as he will allow, he stil has the appearance of chronic emaciation. Plan Summary: Plan to send back to [facility]. If patient is serious this time get PT involved and place in LTAC if possible. Critical Time Critical Time (minutes): 35 Level of Care: ICU Anticipated discharge: SNF Anticipated DC Timeframe: Other -: 1. The care of a critical patient is a dynamic process. This note is a labor representative synopsis but static in nature. The timeframe for treatments given in order is not necessarily the actual time these treatments may have been done. 2. This patient requires critical care secondary to ongoing requirements for therapy not offered or safe outside the critical care environment. Transfer to a lower level of care will result in altered life or limb morbidity and mortality. 3. Multidisciplinary rounds completed. 4. ABCDE bundle addressed.
[2020-07-16] MEDS: HYDROXYZINE HCL INJ 50 MG/1 ML VIAL IM PRN ×2 (12:26→22:29)
[2020-07-16] MEDS: DEXTROSE 5%-NORMAL SALINE 1,000 ML IV PRN (13:15)
[2020-07-16 14:45] LABS: HEMATOCRIT 21.7 % (37.9-51.0); MEAN CORPUSCULAR HEMOGLOBIN 29.1 pg (27.0-33.4); MEAN CORPUSCULAR HGB CONC 34.5 g/dL (32.0-36.0); MEAN CORPUSCULAR VOLUME 84 fl (80-97); PLATELET COUNT 126 10^3/uL (150-450); RED BLOOD COUNT 2.57 10^6/uL (4.35-5.55); RED CELL DISTRIBUTION WIDTH 16.3 % (11.5-14.0); WHITE BLOOD COUNT 10.7 10^3/uL (4.0-10.5)
[2020-07-16 14:50] LABS: HEMOGLOBIN 7.5 g/dL (13.5-17.0)
[2020-07-16 15:10] LABS: ALBUMIN 1.5 g/dL (3.5-5.0); ALKALINE PHOSPHATASE 132 U/L (38-126); ASPARTATE AMINO TRANSFERASE 15 U/L (17-59); BILIRUBIN,DIRECT 0.3 mg/dL (0.0-0.4); BILIRUBIN,TOTAL 0.5 mg/dL (0.2-1.3); BLOOD UREA NITROGEN 31 mg/dL (7-20); GLUCOSE 276 mg/dL (75-110); PHOSPHORUS 1.8 mg/dL (2.5-4.5); POTASSIUM 3.2 mmol/L (3.6-5.0); TOTAL PROTEIN 4.7 g/dL (6.3-8.2)
[2020-07-16 15:14] LABS: CARBON DIOXIDE 27 mmol/L (22-30); CHLORIDE 114 mmol/L (98-107)
[2020-07-16 15:19] LABS: ANION GAP 3 (5-19)
[2020-07-16 15:20] LABS: CALCIUM 6.8 mg/dL (8.4-10.2)
[2020-07-16] MEDS: NITROGLYCERIN 0.4 MG/TAB 25 TAB/BOTTLE SL PRN (15:56)
--- NOTE | 2020-07-16 16:12 | EKG REPORT ---
SEVERITY:- ABNORMAL ECG - SINUS RHYTHM LOW VOLTAGE IN FRONTAL LEADS CONSIDER ANTEROSEPTAL INFARCT BORDERLINE T WAVE ABNORMALITIES : Confirmed by: Mitesh Matta MD 16-Jul-2020 16:11:55
[2020-07-16] MEDS: CALCIUM GLUC IN NACL, ISO-OSM 1 GM/50 ML RTUPB IV SCH ×2 (16:29→17:18)
[2020-07-16] MEDS ORDERED: MAGNESIUM SULFATE 4 GM/100 ML RTUPB IV ONE (17:30)
[2020-07-16] MEDS ORDERED: NORMAL SALINE 250 ML IV PRN ×2 (18:51)
--- NOTE | 2020-07-16 18:58 | Progress Note ---
Provider Note Provider Note: Patient complaining of new-onset chest pain. He is unable to describe the pain but tells me that it is new. Denies feeling SOB, dizzy, lightheaded. Remains HD- stable. Troponin elevated to 0.229. EKG is unchanged from prior and without ischemic changes. Will continue to trend troponin. Continue telemetry monitoring. He declined to allow CXR. Hemoglobin remains stable on repeat CBC. CP improved with SL nitro. Given that he is having CP and evidence of cardiac ischemia (NSTEMI) with hemoglobin <7, it is reasonable to pursue another transfusion of 1 unit pRBC. Will repeat CBC after transfusion. Goal hgb >8. Continue close monitoring. He will likely require EGD if he continues to have bleeding, although he is r epeatedly declining this intervention. He has exceedingly poor prognosis and unlikely to recover from this prolonged hospitalization. His frequent refusal of critical interventions makes caring for him quite difficult and he continues to decline despite our best efforts. I agree with Dr. Chandler and Dr. Lyon that, if he has yet another complication (e.g. cardiac arrest or ID), aggressive interventions are likely to be futile, even if he does agree to them.
--- NOTE | 2020-07-16 19:20 | RADIOLOGY REPORT (SQ) ---
EXAM DESCRIPTION: CHEST SINGLE VIEW IMAGES COMPLETED DATE/TIME: 07/16/2020 6:31 pm REASON FOR STUDY: chest pain COMPARISON: 07/07/2020 EXAM PARAMETERS: NUMBER OF VIEWS: One view. TECHNIQUE: Single frontal radiographic view of the chest acquired. RADIATION DOSE: NA LIMITATIONS: None. FINDINGS: LUNGS AND PLEURA: Stable pulmonary exam demonstrating diffusely increased mixed interstiti al and airspace opacities with moderate bilateral pleural effusions. No pneumothorax. MEDIASTINUM AND HILAR STRUCTURES: Stable. HEART AND VASCULAR STRUCTURES: Stable. BONES: No acute findings. HARDWARE: Tracheostomy sheath projects in the midline over the tracheal air shadow. Left upper extre mity PICC terminates in the region of the superior vena cava. ACDF hardware at the cervicothoracic j unction without evidence of gross complication. OTHER: No other significant finding. IMPRESSION: 1. Stable pulmonary exam demonstrating diffusely increased mixed interstitial and airsp jose alfredo opacities with bilateral pleural effusions. 2. Stable lines and tubes. TECHNICAL DOCUMENTATION: JOB ID: [id number] [employer]- All Rights Reserved Reading location - IP/workstation name: [email or web address]
[2020-07-16] MEDS: POTASSI CL 20 MEQ/50 ML RIDER 20 MEQ/50 ML RTUPB IV SCH ×2 (20:12→22:29)
[2020-07-17] MEDS: POTASSI CL 20 MEQ/50 ML RIDER 20 MEQ/50 ML RTUPB IV SCH ×2 (01:08→03:29)
[2020-07-17] MEDS: SUCRALFATE 1 GM TABLET PO SCH ×4 (01:09→17:59)
[2020-07-17] MEDS: MEROPENEM 1 GM in NORMAL SALINE 50 ML IV SCH ×3 (01:53→18:02)
[2020-07-17 02:17] LABS: HEMATOCRIT 24.1 % (37.9-51.0); HEMOGLOBIN 8.5 g/dL (13.5-17.0); MEAN CORPUSCULAR HEMOGLOBIN 30.5 pg (27.0-33.4); MEAN CORPUSCULAR HGB CONC 35.3 g/dL (32.0-36.0); MEAN CORPUSCULAR VOLUME 86 fl (80-97); PLATELET COUNT 153 10^3/uL (150-450); RED CELL DISTRIBUTION WIDTH 16.6 % (11.5-14.0); WHITE BLOOD COUNT 9.6 10^3/uL (4.0-10.5)
[2020-07-17 08:11] LABS: HEMATOCRIT 22.8 % (37.9-51.0); MEAN CORPUSCULAR HEMOGLOBIN 29.7 pg (27.0-33.4); MEAN CORPUSCULAR HGB CONC 34.6 g/dL (32.0-36.0); MEAN CORPUSCULAR VOLUME 86 fl (80-97); PLATELET COUNT 170 10^3/uL (150-450); RED BLOOD COUNT 2.65 10^6/uL (4.35-5.55); RED CELL DISTRIBUTION WIDTH 16.2 % (11.5-14.0); WHITE BLOOD COUNT 12.1 10^3/uL (4.0-10.5)
[2020-07-17 08:12] LABS: ALBUMIN 1.5 g/dL (3.5-5.0); ALKALINE PHOSPHATASE 119 U/L (38-126); ASPARTATE AMINO TRANSFERASE 17 U/L (17-59); BILIRUBIN,DIRECT 0.2 mg/dL (0.0-0.4); BILIRUBIN,TOTAL 0.5 mg/dL (0.2-1.3); BLOOD UREA NITROGEN 32 mg/dL (7-20); CALCIUM 7.1 mg/dL (8.4-10.2); CARBON DIOXIDE 27 mmol/L (22-30); GLUCOSE 81 mg/dL (75-110); TOTAL PROTEIN 4.5 g/dL (6.3-8.2)
[2020-07-17 08:15] LABS: HEMOGLOBIN 7.9 g/dL (13.5-17.0)
[2020-07-17 08:17] LABS: CHLORIDE 115 mmol/L (98-107)
[2020-07-17 08:19] LABS: ANION GAP 1 (5-19); POTASSIUM 4.5 mmol/L (3.6-5.0)
[2020-07-17] MEDS: DIPHENHYDRAMINE HCL 50 MG/ML VIAL IV PRN ×2 (08:43→16:44)
[2020-07-17] MEDS: HYDROXYZINE HCL INJ 50 MG/1 ML VIAL IM PRN ×2 (08:43→16:43)
[2020-07-17] MEDS: DEXTROSE 5%-NORMAL SALINE 1,000 ML IV PRN (08:58)
[2020-07-17] MEDS ORDERED: NORMAL SALINE 250 ML IV PRN ×2 (08:59)
[2020-07-17] MEDS: PANTOPRAZOLE SODIUM 40 MG VIAL IV SCH ×2 (10:47→18:19)
[2020-07-17] MEDS: BUSPIRONE HCL 10 MG TABLET PEG SCH ×2 (10:50→17:59)
[2020-07-17] MEDS: NA PHOS,M-B/NA PHOS,DI-BA (ADULT) 133 ML ENEMA PR SCH (10:50)
[2020-07-17] MEDS ORDERED: CALCIUM GLUC IN NACL, ISO-OSM 1 GM/50 ML RTUPB IV ONE (11:00)
[2020-07-17] MEDS: IPRATROPIUM/ALBUTEROL 0.5-2.5 MG/3 ML AMPUL NEB PRN ×2 (13:39→21:38)
--- NOTE | 2020-07-17 13:47 | PDOC PROGRESS REPORT ---
Subjective Date:: 07/17/20 Subjective:: He continues to vomit blood and have melena per rectum. Hemoglobin is stable since yesterday after just 1 unit pRBC. He denies chest or abdominal pain. Reason For Visit: MUCOUS PLUGGING, ACUTE HYPOXIC RESPIRATORY FAILURE Physical Exam Vital Signs: Temp Pulse Resp BP Pulse Ox 98.7 F 102 H 20 116/71 100 07/17/20 12:58 07/17/20 12:58 07/17/20 12:58 07/17/20 12:58 07/17/20 12:58 Intake & Output 07/16/20 07/17/20 07/18/20 06:59 06:59 06:59 Intake Total 1800 3450 0 Output Total 1435 975 Balance 365 2475 0 Weight 83.5 kg 80.3 kg General appearance: PRESENT: no acute distress, cooperative Head exam: PRESENT: atraumatic Eye exam: PRESENT: conjunctiva pale Mouth exam: PRESENT: dry mucosa Throat exam: PRESENT: other - trach, on vent. ABSENT: post pharyngeal erythema Neck exam: ABSENT: JVD Respiratory exam: PRESENT: rhonchi. ABSENT: crackles, wheezes Cardiovascular exam: PRESENT: tachycardia GI/Abdominal exam: PRESENT: distended, soft, other - PEG. ABSENT: firm, guarding, rebound, rigid, tenderness Rectal exam: PRESENT: black stool Gentrourinary exam: PRESENT: indwelling catheter Extremities exam: PRESENT: +2 edema Neurological exam: PRESENT: alert, awake Psychiatric exam: PRESENT: flat affect Skin exam: PRESENT: pallor Results Laboratory Results: 07/17/20 07:00 07/17/20 07:00 07/15/20 07/16/20 07/16/20 12:05 14:15 14:15 WBC 10.7 H RBC 2.57 L Hgb 7.5 L Hct 21.7 L MCV 84 MCH 29.1 MCHC 34.5 RDW 16.3 H Plt Count 126 L Sodium 144.0 Potassium 3.2 L Chloride 114 H Carbon Dioxide 27 Anion Gap 3 L BUN 31 H Creatinine 0.73 Est GFR ( Amer) > 60 Glucose 276 H Calcium 6.8 L* Ionized Calcium Deisi Phosphorus 1.8 L Magnesium 1.4 L Total Bilirubin 0.5 AST 15 L Alkaline Phosphatase 132 H Total Protein 4.7 L Albumin 1.5 L Blood Type A POSITIVE Antibody Screen NEGATIVE 07/17/20 07/17/20 07/17/20 01:55 07:00 07:00 WBC 9.6 12.1 H RBC 2.80 L 2.65 L Hgb 8.5 L 7.9 L Hct 24.1 L 22.8 L MCV 86 86 MCH 30.5 29.7 MCHC 35.3 34.6 RDW 16.6 H 16.2 H Plt Count 153 170 Sodium 142.7 Potassium 4.5 D Chloride 115 H Carbon Dioxide 27 Anion Gap 1 L BUN 32 H Creatinine 0.63 Est GFR ( Amer) > 60 Glucose 81 Calcium 7.1 L Ionized Calcium Deisi Phosphorus Magnesium 2.2 Total Bilirubin 0.5 AST 17 Alkaline Phosphatase 119 Total Protein 4.5 L Albumin 1.5 L Blood Type Antibody Screen 07/17/20 08:27 WBC RBC Hgb Hct MCV MCH MCHC RDW Plt Count Sodium Potassium Chloride Carbon Dioxide Anion Gap BUN Creatinine Est GFR ( Amer) Glucose Calcium Ionized Calcium Deisi 1.06 L Phosphorus Magnesium Total Bilirubin AST Alkaline Phosphatase Total Protein Albumin Blood Type Antibody Screen 07/14/20 21:50 Catheterized Urine Urine Culture - Final C.albicans/C.dubliniensis 07/11/20 11:45 Blood Blood Culture - Final NO GROWTH IN 5 DAYS 07/11/20 11:30 Blood Blood Culture - Final NO GROWTH IN 5 DAYS 04/20/20 04/23/20 04/23/20 09:00 01:55 01:55 Creatine Kinase < 20 L CK-MB (CK-2) 2.20 Troponin I < 0.012 0.082 NT-Pro-B Natriuret Pep 44785 H 04/23/20 04/23/20 04/23/20 05:58 08:22 14:50 Creatine Kinase < 20 L < 20 L CK-MB (CK-2) 2.24 Troponin I 0.066 NT-Pro-B Natriuret Pep 04/23/20 06/09/20 07/07/20 14:50 05:20 04:03 Creatine Kinase < 20 L CK-MB (CK-2) 2.09 Troponin I 0.057 NT-Pro-B Natriuret Pep 72172 H 07/07/20 07/10/20 07/16/20 04:03 03:45 14:15 Creatine Kinase CK-MB (CK-2) 2.46 Troponin I < 0.012 < 0.012 0.229 NT-Pro-B Natriuret Pep 07/16/20 18:08 Creatine Kinase CK-MB (CK-2) Troponin I 0.205 NT-Pro-B Natriuret Pep Impressions: PICC Line Insertion 05/07/20 00:00 IMPRESSION: SUCCESSFUL PLACEMENT OF A 5 FR DUAL LUMEN 47 CM PICC IN THE LEFT BRACHIOCEPHALIC VEIN. Modified Barium Swallow 06/03/20 00:00 IMPRESSION: LARYNGEAL PENETRATION AND ASPIRATION ABOVE. HE WAS PLEASE SEE SPEECH PATHOLOGIST REPORT FOR OTHER FINDINGS AND RECOMMENDATIONS. Thoracentesis Ultrasound 06/08/20 14:12 IMPRESSION: SUCCESSFUL THORACENTESIS USING ULTRASOUND GUIDANCE. KUB X-Ray 07/06/20 00:00 IMPRESSION: PROMINENT STOOL IN THE RECTUM. NO RADIOGRAPHIC EVIDENCE FOR ACUTE ABDOMINAL DISEASE. Venous Doppler Study 07/13/20 08:17 IMPRESSION: Limited examination in that the cephalic vein is not adequately visualized. No evidence of left upper extremity deep venous thrombosis. Chest CT 07/14/20 07:07 IMPRESSION: 1. Tracheostomy tube is in good position. No evidence of complication. Evaluation is somewhat limited due to lack of IV contrast and motion. There is no retained endotracheal fluid or debris. 2. Moderate to large bilateral pleural effusions with compressive atelectasis/consolidation at the lung bases. Findings are similar to previous examination. 3. Mediastinal and left supraclavicular lymphadenopathy may be reactive. Chest X-Ray 07/16/20 00:00 IMPRESSION: 1. Stable pulmonary exam demonstrating diffusely increased mixed interstitial and airspace opacities with bilateral pleural effusions. 2. Stable lines and tubes. Assessment and Plan - Diagnosis (1) Acute on chronic respiratory failure with hypoxia and hypercapnia Is this a current diagnosis for this admission?: Yes (2) Bacteremia due to Enterococcus Is this a current diagnosis for this admission?: Yes (3) Bilateral pneumonia Is this a current diagnosis for this admission?: Yes (4) Candiduria Is this a current diagnosis for this admission?: Yes (5) Hyperglycemia due to type 2 diabetes mellitus Qualifiers: Qualified Code(s): E11.65 - Type 2 diabetes mellitus with hyperglycemia; Z79.4 - detention (current) use of insulin Is this a current diagnosis for this admission?: Yes (6) Leukocytosis Qualifiers: Qualified Code(s): D72.829 - Elevated white blood cell count, unspecified Is this a current diagnosis for this admission?: Yes (7) Malnutrition Qualifiers: Qualified Code(s): E43 - Unspecified severe protein-calorie malnutrition Is this a current diagnosis for this admission?: Yes (8) Sepsis associated hypotension Is this a current diagnosis for this admission?: Yes (9) Critical illness myopathy Is this a current diagnosis for this admission?: Yes (10) HCAP (healthcare-associated pneumonia) Is this a current diagnosis for this admission?: Yes (11) MSSA bacteremia Is this a current diagnosis for this admission?: Yes - Plan Summary Summary: 60 M with complex PMH and prolonged hospitalization who is now having an acute UGIB requiring 13 pRBC transfusions thus far. Course further c/b NSTEMI type 2, demand ischemia, in the s/o active bleeding. He is now chest pain free. EKG during chest pain episode showed no changes or ischemic changes and troponin trended down quickly on re-check. He has had no events on telemetry monitoring. He has declined to allow CXR, both yesterday and today. We will transfuse another 1 unit pRBC today. Surgery consulted for EGD, which is planned for later today (prior to today, he has been declining to get an EGD). Goal hgb >8. Recheck CBC after transfusion. Continue close monitoring. With regards to cardiac risk stratification for EGD, this will be impossible to provide. Mr. Sena has exceedingly poor prognosis overall, with multiple concurrent complications. He can not safely receive anti-platelet or anti- coagulation therapy while bleeding. Beta blockers are likely to be contrain dicated in the s/o active GI bleed. A statin is unlikely to provide any kind of rapid benefit. The intervention most likely to help prevent further cardiac ischemia at this point is to stop his bleeding and we must therefore proceed with EGD to find the source. He is at high risk for further complications, during this procedure and beyond. He has exceedingly poor prognosis and unlikely to recover from this prolonged hospitalization. His frequent refusal of critical interventions makes caring for him quite difficult and he continues to decline some interventions at random times, despite our best efforts. I agree with Drs. Chandler and Sonali that, if he has yet another complication (e.g. cardiac arrest or [place]), aggressive interventions are likely to be futile, even if he does agree to them. For now, he has agreed to proceed with EGD/colonoscopy, and we will do so in order to ascertain from where he is bleeding. >30 minutes of critical care time spent in the care of this patient - Time Time Spent with patient: 35 or more minutes Anticipated Discharge Disposition: [facility] Anticipated Discharge Timeframe: unknown
--- NOTE | 2020-07-17 13:54 | PDOC PROGRESS REPORT ---
Subjective Date:: 07/17/20 Subjective:: Patient appropriate during interview, responds by head nodding or finger languag e. The nurses and the primary care physician report hematemesis as well as dark tarry stools for the past few days. Reason For Visit: MUCOUS PLUGGING, ACUTE HYPOXIC RESPIRATORY FAILURE Physical Exam Vital Signs: Temp Pulse Resp BP Pulse Ox 98.7 F 102 H 20 116/71 100 07/17/20 12:58 07/17/20 12:58 07/17/20 12:58 07/17/20 12:58 07/17/20 12:58 Intake & Output 07/16/20 07/17/20 07/18/20 06:59 06:59 06:59 Intake Total 1800 3450 0 Output Total 1435 975 Balance 365 2475 0 Weight 83.5 kg 80.3 kg General appearance: PRESENT: mild distress, thin Neck exam: PRESENT: tracheostomy GI/Abdominal exam: PRESENT: soft, other - PEG in the left upper quadrant Rectal exam: PRESENT: deferred Neurological exam: PRESENT: oriented to person, oriented to time, CN II-XII grossly intact Psychiatric exam: PRESENT: anxious Skin exam: PRESENT: warm Results Laboratory Results: 07/17/20 07:00 07/17/20 07:00 07/15/20 07/16/20 07/16/20 12:05 14:15 14:15 WBC 10.7 H RBC 2.57 L Hgb 7.5 L Hct 21.7 L MCV 84 MCH 29.1 MCHC 34.5 RDW 16.3 H Plt Count 126 L Sodium 144.0 Potassium 3.2 L Chloride 114 H Carbon Dioxide 27 Anion Gap 3 L BUN 31 H Creatinine 0.73 Est GFR ( Amer) > 60 Glucose 276 H Calcium 6.8 L* Ionized Calcium Deisi Phosphorus 1.8 L Magnesium 1.4 L Total Bilirubin 0.5 AST 15 L Alkaline Phosphatase 132 H Total Protein 4.7 L Albumin 1.5 L Blood Type A POSITIVE Antibody Screen NEGATIVE 07/17/20 07/17/20 07/17/20 01:55 07:00 07:00 WBC 9.6 12.1 H RBC 2.80 L 2.65 L Hgb 8.5 L 7.9 L Hct 24.1 L 22.8 L MCV 86 86 MCH 30.5 29.7 MCHC 35.3 34.6 RDW 16.6 H 16.2 H Plt Count 153 170 Sodium 142.7 Potassium 4.5 D Chloride 115 H Carbon Dioxide 27 Anion Gap 1 L BUN 32 H Creatinine 0.63 Est GFR ( Amer) > 60 Glucose 81 Calcium 7.1 L Ionized Calcium Deisi Phosphorus Magnesium 2.2 Total Bilirubin 0.5 AST 17 Alkaline Phosphatase 119 Total Protein 4.5 L Albumin 1.5 L Blood Type Antibody Screen 07/17/20 08:27 WBC RBC Hgb Hct MCV MCH MCHC RDW Plt Count Sodium Potassium Chloride Carbon Dioxide Anion Gap BUN Creatinine Est GFR ( Amer) Glucose Calcium Ionized Calcium Deisi 1.06 L Phosphorus Magnesium Total Bilirubin AST Alkaline Phosphatase Total Protein Albumin Blood Type Antibody Screen 07/14/20 21:50 Catheterized Urine Urine Culture - Final C.albicans/C.dubliniensis 07/11/20 11:45 Blood Blood Culture - Final NO GROWTH IN 5 DAYS 07/11/20 11:30 Blood Blood Culture - Final NO GROWTH IN 5 DAYS 04/20/20 04/23/20 04/23/20 09:00 01:55 01:55 Creatine Kinase < 20 L CK-MB (CK-2) 2.20 Troponin I < 0.012 0.082 NT-Pro-B Natriuret Pep [id number] H 04/23/20 04/23/20 04/23/20 05:58 08:22 14:50 Creatine Kinase < 20 L < 20 L CK-MB (CK-2) 2.24 Troponin I 0.066 NT-Pro-B Natriuret Pep 04/23/20 06/09/20 07/07/20 14:50 05:20 04:03 Creatine Kinase < 20 L CK-MB (CK-2) 2.09 Troponin I 0.057 NT-Pro-B Natriuret Pep 34938 H 07/07/20 07/10/20 07/16/20 04:03 03:45 14:15 Creatine Kinase CK-MB (CK-2) 2.46 Troponin I < 0.012 < 0.012 0.229 NT-Pro-B Natriuret Pep 07/16/20 18:08 Creatine Kinase CK-MB (CK-2) Troponin I 0.205 NT-Pro-B Natriuret Pep Impressions: PICC Line Insertion 05/07/20 00:00 IMPRESSION: SUCCESSFUL PLACEMENT OF A 5 FR DUAL LUMEN 47 CM PICC IN THE LEFT BRACHIOCEPHALIC VEIN. Modified Barium Swallow 06/03/20 00:00 IMPRESSION: LARYNGEAL PENETRATION AND ASPIRATION ABOVE. HE WAS PLEASE SEE SPEECH PATHOLOGIST REPORT FOR OTHER FINDINGS AND RECOMMENDATIONS. Thoracentesis Ultrasound 06/08/20 14:12 IMPRESSION: SUCCESSFUL THORACENTESIS USING ULTRASOUND GUIDANCE. KUB X-Ray 07/06/20 00:00 IMPRESSION: PROMINENT STOOL IN THE RECTUM. NO RADIOGRAPHIC EVIDENCE FOR ACUTE ABDOMINAL DISEASE. Venous Doppler Study 07/13/20 08:17 IMPRESSION: Limited examination in that the cephalic vein is not adequately visualized. No evidence of left upper extremity deep venous thrombosis. Chest CT 07/14/20 07:07 IMPRESSION: 1. Tracheostomy tube is in good position. No evidence of complication. Evaluation is somewhat limited due to lack of IV contrast and motion. There is no retained endotracheal fluid or debris. 2. Moderate to large bilateral pleural effusions with compressive atelectasis/consolidation at the lung bases. Findings are similar to previous examination. 3. Mediastinal and left supraclavicular lymphadenopathy may be reactive. Chest X-Ray 07/16/20 00:00 IMPRESSION: 1. Stable pulmonary exam demonstrating diffusely increased mixed interstitial and airspace opacities with bilateral pleural effusions. 2. Stable lines and tubes. Assessment & Plan - Diagnosis (1) Acute on chronic respiratory failure with hypoxia and hypercapnia Is this a current diagnosis for this admission?: Yes (2) Bacteremia due to Enterococcus Is this a current diagnosis for this admission?: Yes (3) Bilateral pneumonia Qualifiers: Pneumonia type: aspiration pneumonia Lung location: lower lobe of lung Is this a current diagnosis for this admission?: Yes (4) Malnutrition Qualifiers: Malnutrition type: protein-calorie malnutrition Protein-calorie malnutrition severity: severe Qualified Code(s): E43 - Unspecified severe protein-calorie malnutrition Is this a current diagnosis for this admission?: Yes (5) Aspiration pneumonia Qualifiers: Laterality: bilateral Is this a current diagnosis for this admission?: Yes (6) Anemia Qualifiers: Other causes of anemia: acute posthemorrhagic (7) Gastrointestinal hemorrhage Qualifiers: GI bleed type/associated pathology: gastrointestinal hemorrhage with hematemesis Qualified Code(s): K92.0 - Hematemesis Is this a current diagnosis for this admission?: Yes (8) Hematemesis of unknown cause Is this a current diagnosis for this admission?: Yes (9) Gastrointestinal hemorrhage with melena Is this a current diagnosis for this admission?: Yes - Time Anticipated Discharge Disposition: [facility] Anticipated Discharge Timeframe: when avail - Plan Summary Plan Summary: Assessment: 60-year-old male with multiple medical problems including respiratory failure, tracheostomy, ventilator dependency Status post placement of PEG for failure to thrive in May 2020 EGD done at the time of PEG demonstrated normal gastric mucosa without evidence of upper gastrointestinal bleeding Patient is currently became anemic with hemoglobin today of 7.9 hematocrit 22.9, crit since yesterday 8.5-24.9, respectively Hematemesis and melena reported by nurses and primary care physician Patient currently receiving 1 unit of blood to keep his hemoglobin level high Recent onset of new chest pain with elevated troponin 0.205 and no EKG changes as per non-STEMI with arrest Plan: Discussed with primary care physician Dr. Galvin Plan EGD with biopsy today following a cardiology consultation and clearance for the procedure (by Dr. Matta) If the EGD is negative, the patient needs to undergo colonoscopy 25 because of the possible gastrointestinal bleeding In the current situation, the patient is a very high risk for intraoperative morbidity and mortality due to his poor general conditions, new onset of chest pain with elevated troponin, despite cardiac clearance and the need to the procedure, the possibility of an intraoperative cardiac event with cardiac arrest, cardiac resuscitation with CPR, need of endotracheal intubation for airway protection, need of intubation, transfer to an outside institution for possible cardiac catheterization and treatment of the condition, and finally needs to be entertained. This has been fully discussed with the patient. He understands all the above and desires to proceed.
--- NOTE | 2020-07-17 14:12 | RADIOLOGY REPORT (SQ) ---
EXAM DESCRIPTION: CHEST SINGLE VIEW IMAGES COMPLETED DATE/TIME: 07/17/2020 2:05 pm REASON FOR STUDY: Shortness of Breath J96.21 ACUTE AND CHRONIC RESPIRATORY FAILURE WITH HYPOXIA COMPARISON: New approach grow NUMBER OF VIEWS: One view. TECHNIQUE: Single frontal radiographic image of the chest acquired. LIMITATIONS: None. FINDINGS: LUNGS AND PLEURA: Stable appearance. MEDIASTINUM AND HILAR STRUCTURES: Stable heart size and mediastinal structures. HEART AND VASCULAR STRUCTURES: Stable appearance. SUPPORT DEVICES: Appropriate location without change. BONES: No acute findings. OTHER: No other significant finding. IMPRESSION: STABLE APPEARANCE OF THE CHEST. SUPPORT DEVICES UNCHANGED. TECHNICAL DOCUMENTATION: JOB ID: [id number] 2010 [employer]- All Rights Reserved Reading location - IP/workstation name: [email or web address]
[2020-07-17] MEDS: PROMETHAZINE HCL INJ 25 MG/1 ML VIAL IV PRN (14:44)
--- NOTE | 2020-07-17 15:04 | Progress Note ---
Provider Note Provider Note: CARDIOLOGY CONSULTATION Cardiac consultation is requested for this patient for purposes of endoscopy. Patient has had a long protracted hospital stay. I originally seen the patient on 03/28/2020. Active problems 1. Status post COVID-19 pneumonia 2. Tracheostomy 3. Chronic respiratory failure 4. Dilated cardiomyopathy 5. Chronic anemia A long and protracted hospital course has left the patient malnourished and he is noted to be chronically anemic requiring transfusions. The surgical service is preparing to perform endoscopies to evaluate this problem. From a cardiac standpoint the patient is noted to have dilated cardiomyopathy with most recent echocardiogram on 03/27/2020 showing diminished left ventricular ejection fraction estimated at 35 to 40%. Due to chronic illness and overall poor health patient has not been restratified. In the current context with ongoing anemia restratification is difficult to pursue and would not be indicated. His most recent EKG from 07/17/2020 1357 which was independently viewed by me. Shows sinus rhythm with low voltage in the frontal leads at 98 bpm with poor R wave progression and QTC at 460 ms. His most recent hemoglobin is 7.9 and hematocrit is 22.8. Most recent troponin-0.205/0.229 This patient is quite challenging given sequelae and protracted hospital course on account of post Covid pneumonia Chronic anemia will impair his overall health and ask as an impediment to further medical care. 1. From a cardiac standpoint it is not possible to risk stratify this patient. 2. Should proceed with precautions with an acceptable but increased risk given benefit for management of anemia. 3. Given LV dysfunction would minimize and carefully manage intravenous fluids and blood products as to avoid precipitating heart failure. 4. As management of cardiomyopathy low-dose beta-ceiclia and DUSTY inhibitor can be instituted when feasible
--- NOTE | 2020-07-17 18:01 | EKG REPORT ---
SEVERITY:- ABNORMAL ECG - SINUS RHYTHM LOW VOLTAGE IN FRONTAL LEADS CONSIDER ANTEROSEPTAL INFARCT BORDERLINE T ABNORMALITIES, INFERIOR LEADS : Confirmed by: Mitesh Matta MD 17-Jul-2020 18:00:37
[2020-07-17] MEDS ORDERED: PEG 3350/NA SULF,BICARB,CL/KCL 4000 ML PEG ONE (19:00)
[2020-07-17] MEDS ORDERED: BISACODYL 10 MG SUPP.RECT PR ONE (19:00)
[2020-07-17] MEDS: NITROGLYCERIN 0.4 MG/TAB 25 TAB/BOTTLE SL PRN (19:41)
[2020-07-18] MEDS: SUCRALFATE 1 GM TABLET PO SCH ×4 (00:18→17:16)
[2020-07-18 01:05] LABS: HEMATOCRIT 24.3 % (37.9-51.0); HEMOGLOBIN 8.3 g/dL (13.5-17.0); MEAN CORPUSCULAR HGB CONC 34.1 g/dL (32.0-36.0); MEAN CORPUSCULAR VOLUME 85 fl (80-97); PLATELET COUNT 156 10^3/uL (150-450); RED BLOOD COUNT 2.86 10^6/uL (4.35-5.55); RED CELL DISTRIBUTION WIDTH 16.8 % (11.5-14.0); WHITE BLOOD COUNT 12.8 10^3/uL (4.0-10.5)
[2020-07-18] MEDS: MEROPENEM 1 GM in NORMAL SALINE 50 ML IV SCH ×3 (02:27→17:17)
[2020-07-18] MEDS ORDERED: NA PHOS,M-B/NA PHOS,DI-BA (ADULT) 133 ML ENEMA PR ONE (06:00)
[2020-07-18 09:09] LABS: HEMATOCRIT 25.4 % (37.9-51.0); HEMOGLOBIN 8.5 g/dL (13.5-17.0); MEAN CORPUSCULAR HEMOGLOBIN 28.5 pg (27.0-33.4); MEAN CORPUSCULAR HGB CONC 33.6 g/dL (32.0-36.0); MEAN CORPUSCULAR VOLUME 85 fl (80-97); PLATELET COUNT 189 10^3/uL (150-450); RED BLOOD COUNT 2.99 10^6/uL (4.35-5.55); WHITE BLOOD COUNT 12.3 10^3/uL (4.0-10.5)
[2020-07-18 09:11] VITALS: BP 123/79
[2020-07-18] MEDS: BUSPIRONE HCL 10 MG TABLET PEG SCH ×2 (09:11→17:16)
[2020-07-18] MEDS: PANTOPRAZOLE SODIUM 40 MG VIAL IV SCH ×2 (09:21→17:17)
[2020-07-18 09:28] LABS: ALBUMIN 1.5 g/dL (3.5-5.0); ALKALINE PHOSPHATASE 115 U/L (38-126); ASPARTATE AMINO TRANSFERASE 13 U/L (17-59); BILIRUBIN,DIRECT 0.2 mg/dL (0.0-0.4); BILIRUBIN,TOTAL 0.3 mg/dL (0.2-1.3); BLOOD UREA NITROGEN 33 mg/dL (7-20); CHLORIDE 116 mmol/L (98-107); GLUCOSE 90 mg/dL (75-110); TOTAL PROTEIN 4.6 g/dL (6.3-8.2)
[2020-07-18 09:33] LABS: CARBON DIOXIDE 26 mmol/L (22-30)
[2020-07-18 09:41] LABS: ANION GAP 3 (5-19)
[2020-07-18 09:43] LABS: CALCIUM 6.6 mg/dL (8.4-10.2)
[2020-07-18] MEDS ORDERED: PROPOFOL INJ 200 MG/20 ML VIAL IV ONE (09:51)
--- NOTE | 2020-07-18 10:49 | Operative Report ---
Operative Report DATE OF SURGERY: 07/18/20 PREOPERATIVE DIAGNOSIS: 1. Respiratory failure. 2. Acute blood loss anemia POSTOPERATIVE DIAGNOSIS: Same with. 1. Acute mid body gastric ulcer. 2. Moderate gastritis OPERATION: Esophagogastroduodenoscopy with photodocumentation SURGEON: AGUSTIN DUMONT ANESTHESIA: LMAC TISSUE REMOVED OR ALTERED: None COMPLICATIONS: None ESTIMATED BLOOD LOSS: None INTRAOPERATIVE FINDINGS: See below PROCEDURE: Patient was taken the preop holding her to the main operating room where LMAC anesthesia was induced. Patient's trach cuff was deflated, surgical timeout conducted. The flexible upper endoscope was advanced to the oropharynx, down the esophagus through the stomach and into the first and second portions of the duodenum. This was well-tolerated by the patient. The first and second portion of the duodenum were essentially unremarkable. There was no evidence of bleeding or clot. The stomach was significant for a 1 cm acute ulcer, with centrally. Rest were taken. No biopsies taken. No active bleeding. There was moderate gastritis involving the gastric curvature, photos taken, no biopsy taken. The scope was retroflexed in the stomach. The GE junction visualized from the stomach side. No pathology seen here. Scope was withdrawn through the esophagus. Mild irregularity of the Z-line appreciated. No evidence of ulcer stricture. Scope was withdrawn to the patient's oropharynx. He tolerated procedure well. Plan: 1. May resume preoperative medications, diet and activity. 2. Suspect patient's drop in hemoglobin, and melanotic stool can be attributed to acute gastric ulcer. Manage according to medical team. The above discussed with Dr. Galvin 3. Surgery will sign off; reconsult if clinically indicated
[2020-07-18] MEDS: DIPHENHYDRAMINE HCL 50 MG/ML VIAL IV PRN ×2 (12:15→23:45)
--- NOTE | 2020-07-18 18:42 | PDOC PROGRESS REPORT ---
Subjective Date:: 07/18/20 Subjective:: NAEO. He has had no further evidence of bleeding. Reason For Visit: MUCOUS PLUGGING, ACUTE HYPOXIC RESPIRATORY FAILURE Physical Exam Vital Signs: Temp Pulse Resp BP Pulse Ox 97.8 F 94 18 123/79 100 07/18/20 09:08 07/18/20 14:00 07/18/20 09:08 07/18/20 09:08 07/18/20 16:39 Intake & Output 07/17/20 07/18/20 07/19/20 06:59 06:59 06:59 Intake Total 3450 500 100 Output Total 975 1400 Balance 2475 -900 100 Weight 80.3 kg 83.5 kg General appearance: PRESENT: no acute distress Eye exam: PRESENT: conjunctiva pale. ABSENT: scleral icterus Mouth exam: PRESENT: dry mucosa Throat exam: ABSENT: post pharyngeal erythema Neck exam: ABSENT: JVD Respiratory exam: PRESENT: rhonchi Cardiovascular exam: PRESENT: RRR GI/Abdominal exam: PRESENT: normal bowel sounds, soft, other - PEG. ABSENT: guarding, rebound, rigid Rectal exam: PRESENT: deferred Extremities exam: PRESENT: +2 edema Neurological exam: PRESENT: alert, awake Psychiatric exam: PRESENT: flat affect Skin exam: PRESENT: pallor. ABSENT: jaundice Results Laboratory Results: 07/18/20 08:57 07/18/20 08:57 07/18/20 07/18/20 07/18/20 00:20 08:57 08:57 WBC 12.8 H 12.3 H RBC 2.86 L 2.99 L Hgb 8.3 L 8.5 L Hct 24.3 L 25.4 L MCV 85 85 MCH 29.0 28.5 MCHC 34.1 33.6 RDW 16.8 H 17.0 H Plt Count 156 189 Sodium 144.5 Potassium 4.0 Chloride 116 H Carbon Dioxide 26 Anion Gap 3 L BUN 33 H Creatinine 0.64 Est GFR ( Amer) > 60 Glucose 90 Calcium 6.6 L* Ionized Calcium Deisi Magnesium 1.9 Total Bilirubin 0.3 AST 13 L Alkaline Phosphatase 115 Total Protein 4.6 L Albumin 1.5 L 07/18/20 08:57 WBC RBC Hgb Hct MCV MCH MCHC RDW Plt Count Sodium Potassium Chloride Carbon Dioxide Anion Gap BUN Creatinine Est GFR ( Amer) Glucose Calcium Ionized Calcium Deisi 1.07 L Magnesium Total Bilirubin AST Alkaline Phosphatase Total Protein Albumin 04/20/20 04/23/20 04/23/20 09:00 01:55 01:55 Creatine Kinase < 20 L CK-MB (CK-2) 2.20 Troponin I < 0.012 0.082 NT-Pro-B Natriuret Pep 65999 H 04/23/20 04/23/20 04/23/20 05:58 08:22 14:50 Creatine Kinase < 20 L < 20 L CK-MB (CK-2) 2.24 Troponin I 0.066 NT-Pro-B Natriuret Pep 04/23/20 06/09/20 07/07/20 14:50 05:20 04:03 Creatine Kinase < 20 L CK-MB (CK-2) 2.09 Troponin I 0.057 NT-Pro-B Natriuret Pep 28561 H 07/07/20 07/10/20 07/16/20 04:03 03:45 14:15 Creatine Kinase CK-MB (CK-2) 2.46 Troponin I < 0.012 < 0.012 0.229 NT-Pro-B Natriuret Pep 07/16/20 18:08 Creatine Kinase CK-MB (CK-2) Troponin I 0.205 NT-Pro-B Natriuret Pep Impressions: PICC Line Insertion 05/07/20 00:00 IMPRESSION: SUCCESSFUL PLACEMENT OF A 5 FR DUAL LUMEN 47 CM PICC IN THE LEFT BRACHIOCEPHALIC VEIN. Modified Barium Swallow 06/03/20 00:00 IMPRESSION: LARYNGEAL PENETRATION AND ASPIRATION ABOVE. HE WAS PLEASE SEE SPEECH PATHOLOGIST REPORT FOR OTHER FINDINGS AND RECOMMENDATIONS. Thoracentesis Ultrasound 06/08/20 14:12 IMPRESSION: SUCCESSFUL THORACENTESIS USING ULTRASOUND GUIDANCE. KUB X-Ray 07/06/20 00:00 IMPRESSION: PROMINENT STOOL IN THE RECTUM. NO RADIOGRAPHIC EVIDENCE FOR ACUTE ABDOMINAL DISEASE. Venous Doppler Study 07/13/20 08:17 IMPRESSION: Limited examination in that the cephalic vein is not adequately visualized. No evidence of left upper extremity deep venous thrombosis. Chest CT 07/14/20 07:07 IMPRESSION: 1. Tracheostomy tube is in good position. No evidence of complication. Evaluation is somewhat limited due to lack of IV contrast and motion. There is no retained endotracheal fluid or debris. 2. Moderate to large bilateral pleural effusions with compressive atelectasis/consolidation at the lung bases. Findings are similar to previous examination. 3. Mediastinal and left supraclavicular lymphadenopathy may be reactive. Chest X-Ray 07/17/20 00:00 IMPRESSION: STABLE APPEARANCE OF THE CHEST. SUPPORT DEVICES UNCHANGED. Assessment and Plan - Diagnosis (1) Acute on chronic respiratory failure with hypoxia and hypercapnia Is this a current diagnosis for this admission?: Yes (2) Bacteremia due to Enterococcus Is this a current diagnosis for this admission?: Yes (3) Bilateral pneumonia Qualifiers: Pneumonia type: aspiration pneumonia Lung location: lower lobe of lung Is this a current diagnosis for this admission?: Yes (4) Candiduria Is this a current diagnosis for this admission?: Yes (5) Hyperglycemia due to type 2 diabetes mellitus Qualifiers: Diabetes mellitus ferry terminal agent insulin use: with care home use Qualified Code(s): E11.65 - Type 2 diabetes mellitus with hyperglycemia; Z79.4 - senior care (current) use of insulin Is this a current diagnosis for this admission?: Yes (6) Leukocytosis Qualifiers: Leukocytosis type: unspecified Qualified Code(s): D72.829 - Elevated white blood cell count, unspecified Is this a current diagnosis for this admission?: Yes (7) Malnutrition Qualifiers: Malnutrition type: protein-calorie malnutrition Protein-calorie malnutrition severity: severe Qualified Code(s): E43 - Unspecified severe protein-calorie malnutrition Is this a current diagnosis for this admission?: Yes (8) Sepsis associated hypotension Is this a current diagnosis for this admission?: Yes (9) Critical illness myopathy Is this a current diagnosis for this admission?: Yes (10) HCAP (healthcare-associated pneumonia) Is this a current diagnosis for this admission?: Yes (11) MSSA bacteremia Is this a current diagnosis for this admission?: Yes (12) Gastric ulcer Qualifiers: Gastric ulcer chronicity: acute Gastric ulcer complication status: with hemorrhage Qualified Code(s): K25.0 - Acute gastric ulcer with hemorrhage Is this a current diagnosis for this admission?: Yes (13) UGI bleed Is this a current diagnosis for this admission?: Yes - Plan Summary Summary: 60 M with complex PMH and prolonged hospitalization with most recent complication being an acute UGIB requiring 14 units pRBC transfusions, with course further c/b NSTEMI type 2, demand ischemia, in the s/o active bleeding. Surgery consulted for EGD, which was performed 07/18 showing acute non-bleeding gastric ulcer and gastritis. Goal hgb >8. Continue PPI IV BID. Continue close monitoring. He remains stable for now. Overall, he has exceedingly poor prognosis and unlikely to recover from this prolonged hospitalization. His frequent refusal of critical interventions makes caring for him quite difficult and he continues to decline some interventions at random times, despite our best efforts. I agree with Drs. Chandler and Sonali that, if he has yet another complication (e.g. cardiac arrest or IA), aggressive interventions are likely to be futile, even if he does agree to them. - Time Time Spent with patient: 25-34 minutes Anticipated Discharge Disposition: unclear Anticipated Discharge Timeframe: unknown
[2020-07-18] MEDS ORDERED: CALCIUM GLUC IN NACL, ISO-OSM 1 GM/50 ML RTUPB IV ONE (18:54)
[2020-07-18] MEDS: DEXTROSE 5%-NORMAL SALINE 1,000 ML IV PRN (19:10)
[2020-07-18] MEDS: ACETAMINOPHEN SOLN 325 MG/10.15 ML UDCUP PO PRN (21:38)
[2020-07-18] MEDS: HYDROXYZINE HCL INJ 50 MG/1 ML VIAL IM PRN (23:45)
[2020-07-18] MEDS: PROMETHAZINE HCL INJ 25 MG/1 ML VIAL IV PRN (23:45)
[2020-07-19] MEDS: SUCRALFATE 1 GM TABLET PO SCH ×3 (00:19→12:22)
[2020-07-19] MEDS: MEROPENEM 1 GM in NORMAL SALINE 50 ML IV SCH ×2 (02:36→12:20)
[2020-07-19] MEDS: PROMETHAZINE HCL INJ 25 MG/1 ML VIAL IV PRN (06:40)
[2020-07-19 07:47] LABS: HEMATOCRIT 24.7 % (37.9-51.0); HEMOGLOBIN 8.3 g/dL (13.5-17.0); MEAN CORPUSCULAR HEMOGLOBIN 29.1 pg (27.0-33.4); MEAN CORPUSCULAR HGB CONC 33.7 g/dL (32.0-36.0); MEAN CORPUSCULAR VOLUME 86 fl (80-97); PLATELET COUNT 185 10^3/uL (150-450); RED BLOOD COUNT 2.86 10^6/uL (4.35-5.55); RED CELL DISTRIBUTION WIDTH 16.5 % (11.5-14.0); WHITE BLOOD COUNT 13.7 10^3/uL (4.0-10.5)
[2020-07-19 08:06] LABS: ALBUMIN 1.4 g/dL (3.5-5.0); ALKALINE PHOSPHATASE 113 U/L (38-126); ASPARTATE AMINO TRANSFERASE 13 U/L (17-59); BILIRUBIN,DIRECT 0.3 mg/dL (0.0-0.4); BILIRUBIN,TOTAL 0.3 mg/dL (0.2-1.3); BLOOD UREA NITROGEN 34 mg/dL (7-20); GLUCOSE 246 mg/dL (75-110); POTASSIUM 3.9 mmol/L (3.6-5.0); TOTAL PROTEIN 4.6 g/dL (6.3-8.2)
[2020-07-19 08:11] LABS: CARBON DIOXIDE 26 mmol/L (22-30); CHLORIDE 115 mmol/L (98-107)
[2020-07-19 08:16] LABS: ANION GAP 1 (5-19)
[2020-07-19 08:21] LABS: CALCIUM 6.9 mg/dL (8.4-10.2)
[2020-07-19] MEDS: DIPHENHYDRAMINE HCL 50 MG/ML VIAL IV PRN (08:41)
[2020-07-19] MEDS: IPRATROPIUM/ALBUTEROL 0.5-2.5 MG/3 ML AMPUL NEB PRN (08:45)
[2020-07-19] MEDS: CALCIUM GLUC IN NACL, ISO-OSM 1 GM/50 ML RTUPB IV SCH ×2 (08:59→10:49)
[2020-07-19] MEDS: HYDROXYZINE HCL INJ 50 MG/1 ML VIAL IM PRN (09:00)
[2020-07-19] MEDS: NA PHOS,M-B/NA PHOS,DI-BA (ADULT) 133 ML ENEMA PR SCH (09:01)
[2020-07-19] MEDS: BUSPIRONE HCL 10 MG TABLET PEG SCH (09:01)
[2020-07-19] MEDS: DEXTROSE 5%-NORMAL SALINE 1,000 ML IV PRN (09:03)
[2020-07-19] MEDS: PANTOPRAZOLE SODIUM 40 MG VIAL IV SCH (09:03)
[2020-07-19] MEDS ORDERED: LORAZEPAM INJ 2 MG/1 ML VIAL IV PRN (12:05)
[2020-07-19] MEDS ORDERED: HYDROMORPHONE HCL INJ/PF 2 MG/ML AMPULE IV PRN ×3 (12:06→12:51)
[2020-07-19] MEDS ORDERED: HALOPERIDOL LACTATE INJ 5 MG/1 ML VIAL IV PRN (12:07)
[2020-07-19] MEDS ORDERED: LORAZEPAM INJ 2 MG/1 ML VIAL ONE (12:10)
[2020-07-19] MEDS ORDERED: HYDROMORPHONE HCL INJ/PF 2 MG/ML AMPULE ONE ×2 (12:10→12:52)
[2020-07-19] MEDS ORDERED: HYDROMORPHONE HCL 2 MG TABLET PO ONE (13:30)
[2020-07-19] MEDS ORDERED: SCOPOLAMINE HYDROBROMIDE 1.5 MG PATCH.TD72 TD SCH (14:00)
--- NOTE | 2020-07-19 16:22 | Death Summary ---
Summary Date : 07/19/20 Time of :: 13:10 Autopsy: No Resuscitation Status: Comfort Measures Only - Final Diagnosis (1) Acute on chronic respiratory failure with hypoxia and hypercapnia Is this a current diagnosis for this admission?: Yes (2) Bacteremia due to Enterococcus Is this a current diagnosis for this admission?: Yes (3) Bilateral pneumonia Is this a current diagnosis for this admission?: Yes (4) Candiduria Is this a current diagnosis for this admission?: Yes (5) Hyperglycemia due to type 2 diabetes mellitus Is this a current diagnosis for this admission?: Yes (6) Leukocytosis Is this a current diagnosis for this admission?: Yes (7) Malnutrition Is this a current diagnosis for this admission?: Yes (8) Sepsis associated hypotension Is this a current diagnosis for this admission?: Yes (9) Critical illness myopathy Is this a current diagnosis for this admission?: Yes (10) HCAP (healthcare-associated pneumonia) Is this a current diagnosis for this admission?: Yes (11) MSSA bacteremia Is this a current diagnosis for this admission?: Yes (12) Gastric ulcer Is this a current diagnosis for this admission?: Yes (13) UGI bleed Is this a current diagnosis for this admission?: Yes (14) HFrEF (heart failure with reduced ejection fraction) Is this a current diagnosis for this admission?: Yes (15) Dilated cardiomyopathy Is this a current diagnosis for this admission?: Yes (16) Non-ST elevated myocardial infarction (non-STEMI) Is this a current diagnosis for this admission?: Yes Hospital Course:: Mr. Stalin Sena is a 60-year-old man with HTN, HLD, DM2 who had a prolonged hospitalization (01/2019 to 07/2020) for acute respiratory failure secondary to COVID-19 pneumonia s/p tracheostomy placement. He had a difficult and compli cated 6-month long medical course as a result of multiple complications of Covid Pneumonia. Complications included several episodes of bacteremia resulting in prolonged IV antibiotics, severe malnutrition, debility and bed-bound status due to critical illness myopathy, dysphagia s/p PEG placement, dilated cardiomyopathy, congestive heart failure with reduced EF, urinary retention requiring Varner catheter placement c/b CAUTI, severe anemia due to large gastric ulcer, etc. By the end of his hospitalization, he was unable to protect his airway, was vent-dependent and required frequent suctioning due to weak/ineffective cough. On the morning of 07/19/2020, he notified nursing and medical staff of his wish to change goals of therapy to comfort measures. Code status was changed to DNR/DNI, as per patient's wishes. He was ordered a diet for pleasure feeds, and IV narcotics/benzodiazepines for pain/anxiety. After receiving IV medications for his comfort, he was taken off of the ventilator, as per his wishes, and placed on trach collar. He went into acute on chronic hypoxic respiratory failure shortly thereafter, followed by cardiac arrest and systole. He was pronounced on 07/19/2020 at 1310. His friend, Gregory Ishmael Dallas, has been notified.
== END 2020-07-19 13:51 | DRG 870 ==
LOC: ER 06:18 → EH 12:49 → OBSVTOIN 13:42 → 3S 15:18 → ICU 05-14 11:50 → 3S 05-19 17:39 → ICU 07-13 18:19 → 3S 07-16 11:45
PROVIDERS: ADMIT Anesthesiology; ATTEND Hospitalist
PROC: 5A1955Z Respiratory Ventilation, Greater than 96 Consecutive Hours (ICD-10-PCS; principal; 2020-04-20)
PROC: 06HM33Z Insertion of Infusion Device into Right Femoral Vein, Percutaneous Approach (ICD-10-PCS; 2020-04-20)
PROC: 30233N1 Transfusion of Nonautologous Red Blood Cells into Peripheral Vein, Percutaneous Approach (ICD-10-PCS; 2020-04-21)
PROC: 5A09557 Assistance with Respiratory Ventilation, Greater than 96 Consecutive Hours, Continuous Positive Airway Pressure (ICD-10-PCS; 2020-04-22)
PROC: 02HV33Z Insertion of Infusion Device into Superior Vena Cava, Percutaneous Approach (ICD-10-PCS; 2020-05-07)
PROC: B518ZZA Fluoroscopy of Superior Vena Cava, Guidance (ICD-10-PCS; 2020-05-07)
PROC: B548ZZA Ultrasonography of Superior Vena Cava, Guidance (ICD-10-PCS; 2020-05-07)
PROC: 0DH63UZ Insertion of Feeding Device into Stomach, Percutaneous Approach (ICD-10-PCS; 2020-05-26)
PROC: 0W9B3ZZ Drainage of Left Pleural Cavity, Percutaneous Approach (ICD-10-PCS; 2020-06-08)
PROC: 0DJ08ZZ Inspection of Upper Intestinal Tract, Via Natural or Artificial Opening Endoscopic (ICD-10-PCS; 2020-07-18)
DX: A41.81 Sepsis due to Enterococcus (principal); T83.511A Infection and inflammatory reaction due to indwelling urethral catheter, initial encounter; N39.0 Urinary tract infection, site not specified; E43 Unspecified severe protein-calorie malnutrition; J69.0 Pneumonitis due to inhalation of food and vomit; J96.21 Acute and chronic respiratory failure with hypoxia; J96.22 Acute and chronic respiratory failure with hypercapnia; G93.41 Metabolic encephalopathy; K25.4 Chronic or unspecified gastric ulcer with hemorrhage; K29.71 Gastritis, unspecified, with bleeding; I21.4 Non-ST elevation (NSTEMI) myocardial infarction; F11.20 Opioid dependence, uncomplicated; Z99.11 Dependence on respirator [ventilator] status; N18.4 Chronic kidney disease, stage 4 (severe); D62 Acute posthemorrhagic anemia; G72.81 Critical illness myopathy; T17.490A Other foreign object in trachea causing asphyxiation, initial encounter; N17.9 Acute kidney failure, unspecified; K92.0 Hematemesis; I42.0 Dilated cardiomyopathy; J90 Pleural effusion, not elsewhere classified; I13.2 Hypertensive heart and chronic kidney disease with heart failure and with stage 5 chronic kidney disease, or end stage renal disease; I50.22 Chronic systolic (congestive) heart failure; A41.01 Sepsis due to Methicillin susceptible Staphylococcus aureus; R65.20 Severe sepsis without septic shock; Z93.0 Tracheostomy status; E11.65 Type 2 diabetes mellitus with hyperglycemia; Z53.29 Procedure and treatment not carried out because of patient's decision for other reasons; E11.649 Type 2 diabetes mellitus with hypoglycemia without coma; A49.02 Methicillin resistant Staphylococcus aureus infection, unspecified site; E78.5 Hyperlipidemia, unspecified; E11.22 Type 2 diabetes mellitus with diabetic chronic kidney disease; D63.1 Anemia in chronic kidney disease; Y84.6 Urinary catheterization as the cause of abnormal reaction of the patient, or of later complication, without mention of misadventure at the time of the procedure; F32.9 Major depressive disorder, single episode, unspecified; R13.12 Dysphagia, oropharyngeal phase; I87.2 Venous insufficiency (chronic) (peripheral); B37.9 Candidiasis, unspecified; B94.8 Sequelae of other specified infectious and parasitic diseases; Z20.822 Contact with and (suspected) exposure to COVID-19; B97.29 Other coronavirus as the cause of diseases classified elsewhere; L89.152 Pressure ulcer of sacral region, stage 2; E87.5 Hyperkalemia; F41.9 Anxiety disorder, unspecified; R42 Dizziness and giddiness; K59.03 Drug induced constipation; T40.605A Adverse effect of unspecified narcotics, initial encounter; Y92.239 Unspecified place in hospital as the place of occurrence of the external cause; Z79.4 Long term (current) use of insulin; Z88.2 Allergy status to sulfonamides; Z88.8 Allergy status to other drugs, medicaments and biological substances; Z91.013 Allergy to seafood; Z79.899 Other long term (current) drug therapy; Z88.0 Allergy status to penicillin
CPT/HCPCS: 00731; 32555; 36415; 36430; 36573; 36600; 43235; 71045; 71250; 74018; 74230; 80048; 80053; 80061; 80069; 80202; 81001; 82042; 82271; 82330; 82550; 82553; 82565; 82607; 82728; 82746; 82803; 82945; 82962; 82977; 83540; 83550; 83605; 83615; 83690; 83735; 83880; 84100; 84134; 84443; 84484; 85025; 85027; 85045; 85610; 85652; 85730; 86140; 86850; 86900; 86901; 86920; 87040; 87070; 87075; 87077; 87086; 87088; 87150; 87186; 87205; 87324; 87449; 89050; 93005; 93010; 93971; 94002; 94003; 94640; 94660; 96361; 96365; 96366; 99221; 99222; 99291; J0610; 0241U; C9113; C9803; G0378; J0290; J0692; J0696; J0878; J1170; J1200; J1265; J1642; J1644; J1650; J1815; J1940; J2020; J2060; J2185; J2270; J2370; J2405; J2550; J2704; J2765; J2997; J3010; J3370; J3410; J3475; J3480; J3490; J7030; J7042; J7050; J7060; J7120; J7121; P9016; P9047; Q0138; S0028